=== PATIENT | male | born 1960 | race Caucasian/White ===

== ENCOUNTER 2019-06-22 14:51 | Outpatient (CLI) | payer MEDICARE, SELFPAY ==
--- NOTE | 2019-06-22 14:58 | XR_ITS ---
WS: [id number] RIGHT FOOT: 3 VIEW(S) TECHNIQUE: PA, oblique and lateral. HISTORY: PAIN, REDNESS, NONHEALING ULCER COMPARISON: None available. Markedly abnormal bones and soft tissues of the foot. Diffuse soft tissue edema surrounding the foot. First toe is intact. Lateral deviation of the second toe. There is complete loss of the bone involving a majority of the s econd toe. Osteopenia involving the distal phalanx of the second toe. There is a large gap between th e proximal phalanx and the distal remaining bone by 2.0 cm. Similar destruction of bone involving the third toe with only a small portion of the proximal toe present. There is a osseous gap in the middl e phalanx fourth toe. XR/XR foot RT min 3V* [id number] IMPRESSION: 1. Abnormal appearance of the second, third and fourth toes. There is complete resorption of bone with abnormal soft tissue changes are probably from acute o n chronic episodes of osteomyelitis. 2. 2. Diffuse soft tissue edema around the foot.
== END 2019-06-22 14:52 | disposition home or self-care (01) ==
LOC: RADWPI 14:55
PROVIDERS: Family Provider Family Medicine; PCP Family Medicine; Visit Provider Nurse Practitioner Family
DX: M79.671 Pain in right foot (principal); L98.499 Non-pressure chronic ulcer of skin of other sites with unspecified severity; R60.9 Edema, unspecified; E11.621 Type 2 diabetes mellitus with foot ulcer; L97.412 Non-pressure chronic ulcer of right heel and midfoot with fat layer exposed
CPT/HCPCS: 73630; 99214; G0463

== ENCOUNTER 2019-07-13 10:06 | Outpatient (RCR) | payer MEDICARE, SELFPAY | END 2019-07-13 23:59 | disposition home or self-care (01) | LOC: WOUND 10:06 | PROVIDERS: Family Provider Family Medicine; PCP Family Medicine; Visit Provider Nurse Practitioner Family | DX: E11.621 Type 2 diabetes mellitus with foot ulcer (principal); L97.412 Non-pressure chronic ulcer of right heel and midfoot with fat layer exposed; M79.671 Pain in right foot; L98.499 Non-pressure chronic ulcer of skin of other sites with unspecified severity; R60.9 Edema, unspecified | CPT/HCPCS: 11042; 73630; 99203; 99212; 99214; G0463 ==

== ENCOUNTER 2019-08-30 10:36 | Outpatient (CLI) | payer MEDICARE, SELFPAY ==
--- NOTE | 2019-08-30 10:45 | CT_ITS ---
WS: [id number] CT ABDOMEN PELVIS TECHNIQUE: Noncontrast CT of the abdomen and pelvis with coronal and sagittal reformatted images. CLINICAL INFORMATION: URINARY TRACT STONE COMPARISON: None. DLP: 1049.[address] scans at [facility] use at least one of these dose optimization techniques: automat ed exposure control; mA and/or kV adjustment per patient size (includes targeted exams where dose is matched to clinical indication); or iterative reconstruction. FINDINGS: Noncontrast liver is normal. Normal noncontrast spleen. Normal GE junction. Food products within the distended stomach and proximal duodenum. Adrenal glands are normal. Bilateral renal cortical atrophy. No hydronephrosis. No obstructing renal or ureteral calculi. Fatty atrophy of the pancreas. Exophyti c left renal lesion too small to characterize but not definitely cystic measuring 1.2 CM. This can be followed up with ultrasound. Nonobstructing right renal parenchymal calculus measuring 4 mm. Normal caliber abdominal aorta. Aortic calcification. Calcified prostate. Normal sigmoid colon. Epiga stric wid[place] hernia with hernia opening measuring 7.4 CM. Herniation of transverse colon and small bowel without evidence of obstruction. No abdominal lymphadenopathy. No pelvic lymphadenopathy. No inguinal lymphadenopathy. Lung bases are well aerated. CT/CT kidney stone [id number] IMPRESSION: 1. Bilateral renal cortical atrophy. No hydronephrosis. No obstructing renal o r ureteral calculi. 2. Indeterminate exophytic left renal lesion measuring 11 mm. Recommend furthe r evaluation with ultrasound. 3. Large wid[place] epigastric midline hernia with hernia mouth opening measuri ng 7.4 CM. Herniated nonobstructed transverse colon and small bowel. 4. Normal caliber abdominal aorta. 5. No other significant findings.
== END 2019-08-30 10:37 | disposition home or self-care (01) ==
LOC: RADWPI 10:39
PROVIDERS: Family Provider Family Medicine; PCP Family Medicine; Visit Provider Family Medicine
DX: N20.0 Calculus of kidney (principal); E11.21 Type 2 diabetes mellitus with diabetic nephropathy; K44.9 Diaphragmatic hernia without obstruction or gangrene; N28.9 Disorder of kidney and ureter, unspecified; N26.1 Atrophy of kidney (terminal)
CPT/HCPCS: 74176

== ENCOUNTER 2019-10-11 14:37 | Outpatient (CLI) | payer MEDICARE, SELFPAY ==
--- NOTE | 2019-10-11 14:54 | XR_ITS ---
WS: [id number] LATERAL LUMBAR SPINE: 3 view. Lateral radiographs are performed in upright neutral, flexion and extension to the patient's toleranc e. HISTORY: LOW BACK PAIN, COMPARISON: 11/01/2013 Straightening of the normal lumbar lordosis on neutral imaging. Mild to moderate disc space narrowing at L3-4, L4-5 and L5-S1 with endplate osteophytes. With flexion and extension there is no significan t change in alignment. No fractures. XR/XR lumbar spine f/e only [id number] IMPRESSION: Straightening of the normal lumbar lordosis with no instability.
--- NOTE | 2019-10-11 14:54 | CT_ITS ---
WS: [id number] CT LUMBAR SPINE, noncontrast. HISTORY: LOW BACK PAIN TECHNIQUE: Contiguous 2.5 mm axial imaging are performed. Sagittal and coronal reformats are submitte d and reviewed. All CT scans at [facility] use at least one of these dose optimization te chniques: automated exposure control; mA and/or kV adjustment per patient size (includes targeted exa ms where dose is matched to clinical indication); or iterative reconstruction. IV contrast: None DLP: 2080.48 mGycm COMPARISON: MRI 05/25/2016 Straightening of the normal lumbar lordosis. Moderate disc space narrowing from L3-4 to L5-S1. No fra ctures. Pars are all intact. No anterolisthesis. L1-2: Normal. L2-3: Mild annular disc bulging. No significant stenosis. L3-4: Mild annular disc bulging and osteophytic ridging. Flattening of the ventral thecal sac. Mild f acet and ligamentum flavum hypertrophy. Mild central and subarticular recess stenosis. L4-5: Mild annular disc bulging and osteophytic ridging. Small central disc protrusion. Additional sm all osteophytes anteriorly encroaching upon the ventral thecal sac. There is ligamentum flavum hypert rophy and facet arthritis. Mild widening of the facet joints. The above changes result in mild centra l and bilateral foraminal stenosis. Moderate RIGHT subarticular recess stenosis and mild on the LEFT. L5-S1: Diffuse asymmetric disc bulging and osteophytic ridging. Osteophytes encroach into the foramen and subarticular recesses. Osteophyte encroachment upon the RIGHT S1 nerve root. Scattered calcifications in the abdominal aorta. Retroaortic LEFT renal vein. CT/CT lumbar spine wo con* [id number] IMPRESSION: 1. Mild progression of facet joint arthritis and stenoses since 2017 MRI. 2. Moderate RIGHT subarticular recess stenosis and mild on the LEFT at L4-5. 3. Mild central and bilateral subarticular recess stenosis at L3-4. 4. Mild osteophyte encroachment into the RIGHT L5-S1 proximal foramen with enc roachment on the RIGHT S1 nerve root.
== END 2019-10-11 14:38 | disposition home or self-care (01) ==
LOC: RADWPI 14:42
PROVIDERS: Family Provider Family Medicine; PCP Family Medicine; Visit Provider Nurse Practitioner
DX: M54.5 Low back pain (principal); M13.88 Other specified arthritis, other site; M48.061 Spinal stenosis, lumbar region without neurogenic claudication; M25.78 Osteophyte, vertebrae
CPT/HCPCS: 72120; 72131

== ENCOUNTER 2019-11-30 14:52 | Outpatient (CLI) | payer MEDICARE, SELFPAY ==
--- NOTE | 2019-11-30 15:01 | US_ITS ---
WS: [id number] RENAL ULTRASOUND HISTORY: CHRONIC KIDNEY DZ STAGE 4/DM TYPE 2/HTN COMPARISON: None available. TECHNIQUE: 2-D and color Doppler imaging of the kidney submitted. Right kidney: 10.1 cm x 5.6 cm x 4.8 cm. Normal size kidney with no hydronephrosis. Mild increased echogenicity. Mild cortical thinning centra lly with no mass. Left kidney: 13.6 cm x 5.1 cm x 5.3 cm. Normal size kidney. There is very mild diffuse cortical thinning. Exophytic cyst from the mid kidney measures 1.7 x 0.5 x 1.9 cm. Similar as seen on 08/30/2019 CT. Aorta: Normal. Urinary Bladder: Minimally distended bladder. No intraluminal filling defect. US/US renal BI* [id number] IMPRESSION: 1. Very minimal bilateral chronic medical renal disease without atrophy. 2. Minimally distended urinary bladder.
== END 2019-11-30 14:53 | disposition home or self-care (01) ==
LOC: RAD 15:00
PROVIDERS: PCP Family Medicine; Visit Provider Internal Medicine Nephrology
DX: E11.21 Type 2 diabetes mellitus with diabetic nephropathy (principal); I10 Essential (primary) hypertension; E11.22 Type 2 diabetes mellitus with diabetic chronic kidney disease; N18.4 Chronic kidney disease, stage 4 (severe)
CPT/HCPCS: 76770

== ENCOUNTER → 2020-07-31 11:06 | Outpatient (BNVA) | payer MEDICARE, SELFPAY | PROVIDERS: PCP Family Medicine; Visit Provider Internal Medicine Cardiovascular Disease | DX: I50.33 Acute on chronic diastolic (congestive) heart failure (principal); R06.02 Shortness of breath; N18.9 Chronic kidney disease, unspecified; I50.9 Heart failure, unspecified; I10 Essential (primary) hypertension | CPT/HCPCS: 80048; 83880; 84443 ==

== ENCOUNTER 2020-12-03 15:43 | Outpatient (CLI) | payer MEDICARE, SELFPAY ==
--- NOTE | 2020-12-03 15:45 | USCV_ITS ---
Richard Huffman Age: 60 Gender: M : 1960 Exam Date: 12/03/2020 16:14 Ordering Phys: Bertin Tierney MD ([email or web address]) Technologist: CHARLES [place] [facility] [place]: DYSPNEA BP: 126 / 62 HR: 78 Rhythm: Sinus Technical Quality: Technically difficult study MEASUREMENTS (Male / Female) Normal Values 2D ECHO LV Diastolic Diameter PLAX 3.0 cm 4.2 - 5.9 / 3.9 - 5.3 cm LV Systolic Diameter PLAX 1.8 cm IVS Diastolic Thickness 1.0 cm 0.6 - 1.0 / 0.6 - 0.9 cm IVS Systolic Thickness 1.6 cm LVPW Diastolic Thickness 1.6 cm 0.6 - 1.0 / 0.6 - 0.9 cm LVPW Systolic Thickness 1.6 cm LVOT Diameter 2.0 cm LV Ejection Fraction 2D Teich 71.4 % LV Ejection Fraction MOD 2C 51.6 % LV Ejection Fraction 2C AL 52.6 % LA Diameter 3.8 cm LA Width 3.2 cm LA Height 5.4 cm RA Width 3.9 cm RA Height 4.9 cm Aorta at Sinotubular Diameter 2.5 cm DOPPLER AV Peak Velocity 271.0 cm/s LVOT Peak Velocity 123.0 cm/s AV Area Cont Eq vti 1.5 cm squared AV Area Cont Eq pk 1.4 cm squared MV Peak Velocity 645.0 cm/s MV Area PHT 4.0 cm squared Mitral E to A Ratio 1.7 MV E' Velocity 68.0 cm/s Mitral E to MV E' Ratio 15.2 Mitral E to LV E' Lateral Ratio 12.7 Mitral E to LV E' Septal Ratio 18.8 TR Peak Velocity 162.0 cm/s TR Peak Gradient 10.5 mmHg PV Peak Velocity 73.0 cm/s RV Acceleration Time 0.1 s RV Ejection Time 0.2 s RV AcT/ET 0.2 FINDINGS Left Ventricle Possibly normal LV size ejection fraction 55%. No gross wall motion normalities noted.Grade III/IV diastolic dysfunction (restrictive filling pattern), severely elevated filling pressures. Right Ventricle The right ventricle is normal in size and function. Right Atrium The right atrium is normal in size. Left Atrium Mildly increased left atrial size. Mitral Valve Thickened mitral valve. Possible mitral annular ring appears to be intact.mild-moderate mitral valve regurgitation. Aortic Valve The bioprosthetic aortic valve appears to be positioned well. The aortic leaflets could not visualized well.trace aortic valve regurgitation. Peak velocity across the valve was 2.7 m/s with an aortic valve area of 1.5 cm squared Tricuspid Valve No gross abnormalities noted Pulmonic Valve Pulmonic valve not well visualized. Pericardium Normal pericardium without effusion. Aorta Normal ascending aorta dimension. CONCLUSIONS Possibly normal LV size ejection fraction 55%. No gross wall motion normalities noted.Grade III/IV diastolic dysfunction (restrictive filling pattern), severely elevated filling pressures. Thickened mitral valve. Possible mitral annular ring appears to be intact.mild-moderate mitral valve regurgitation. The bioprosthetic aortic valve appears to be positioned well. The aortic leaflets could not visualized well. Trace aortic valve regurgitation. Peak velocity across the valve was 2.7 m/s with an aortic valve area of 1.5 cm squared. Mild to moderate mitral regurgitation Thickened mitral valve with? mitral annular ring. Mildly increased left atrial size. There is no pericardial effusion. There are no intracardiac masses. Compared to the previous study from 01/19/2019, there may not be a significant change Dr Bertin Tierney MD FACC (Electronically Signed) Final Date: 04 December 2020 14:35 S
== END 2020-12-03 15:44 | disposition home or self-care (01) ==
PROVIDERS: PCP Family Medicine; Visit Provider Internal Medicine Cardiovascular Disease
DX: R06.00 Dyspnea, unspecified (principal); R06.02 Shortness of breath; I08.0 Rheumatic disorders of both mitral and aortic valves; Z95.2 Presence of prosthetic heart valve
CPT/HCPCS: 93306

== ENCOUNTER 2021-03-27 09:59 | Outpatient (CLI) | payer MEDICARE, SELFPAY | END 2021-03-27 10:00 | disposition home or self-care (01) | LOC: WOUND 10:00 | PROVIDERS: PCP Family Medicine; Visit Provider Emergency Medicine | DX: I96 Gangrene, not elsewhere classified (principal); E11.621 Type 2 diabetes mellitus with foot ulcer; L97.512 Non-pressure chronic ulcer of other part of right foot with fat layer exposed; F17.210 Nicotine dependence, cigarettes, uncomplicated; I10 Essential (primary) hypertension | CPT/HCPCS: 11042; 87070; 87077; 87176; 87186; 87205; 99213 ==

== ENCOUNTER 2021-04-03 08:53 | Outpatient (CLI) | payer MEDICARE, SELFPAY | END 2021-04-03 08:54 | disposition home or self-care (01) | LOC: WOUND 08:54 | PROVIDERS: PCP Family Medicine; Visit Provider Emergency Medicine | DX: I96 Gangrene, not elsewhere classified (principal); E11.621 Type 2 diabetes mellitus with foot ulcer; L97.512 Non-pressure chronic ulcer of other part of right foot with fat layer exposed; F17.210 Nicotine dependence, cigarettes, uncomplicated; I10 Essential (primary) hypertension | CPT/HCPCS: 11042; 99212; A6219 ==

== ENCOUNTER 2021-04-10 12:57 | Outpatient (CLI) | payer MEDICARE, SELFPAY | END 2021-04-10 12:58 | disposition home or self-care (01) | LOC: WOUND 12:58 | PROVIDERS: PCP Family Medicine; Visit Provider Emergency Medicine | DX: E11.621 Type 2 diabetes mellitus with foot ulcer (principal); L97.511 Non-pressure chronic ulcer of other part of right foot limited to breakdown of skin; F17.210 Nicotine dependence, cigarettes, uncomplicated; I10 Essential (primary) hypertension | CPT/HCPCS: 11042 ==

== ENCOUNTER 2021-04-10 16:05 | Outpatient (CLI) | payer MEDICARE, SELFPAY | END 2021-04-10 16:06 | disposition home or self-care (01) | LOC: SPT 16:06 | PROVIDERS: PCP Family Medicine; Visit Provider Emergency Medicine | DX: R26.89 Other abnormalities of gait and mobility (principal) | CPT/HCPCS: 97760 ==

== ENCOUNTER 2021-04-24 13:26 | Outpatient (CLI) | payer MEDICARE, SELFPAY | END 2021-04-24 13:27 | disposition home or self-care (01) | LOC: WOUND 13:27 | PROVIDERS: PCP Family Medicine; Visit Provider Nurse Practitioner Family | DX: Z09 Encounter for follow-up examination after completed treatment for conditions other than malignant neoplasm (principal); F17.210 Nicotine dependence, cigarettes, uncomplicated; E11.9 Type 2 diabetes mellitus without complications | CPT/HCPCS: 99213 ==

== ENCOUNTER → 2021-07-15 13:49 | Outpatient (BNVA) | payer MEDICARE, SELFPAY | PROVIDERS: PCP Family Medicine; Visit Provider Internal Medicine Cardiovascular Disease | DX: I12.9 Hypertensive chronic kidney disease with stage 1 through stage 4 chronic kidney disease, or unspecified chronic kidney disease (principal); E11.22 Type 2 diabetes mellitus with diabetic chronic kidney disease; N18.4 Chronic kidney disease, stage 4 (severe); Z99.2 Dependence on renal dialysis; Z79.4 Long term (current) use of insulin; Z79.84 Long term (current) use of oral hypoglycemic drugs; E11.618 Type 2 diabetes mellitus with other diabetic arthropathy; E78.2 Mixed hyperlipidemia; Z95.4 Presence of other heart-valve replacement; I33.0 Acute and subacute infective endocarditis; B95.7 Other staphylococcus as the cause of diseases classified elsewhere; M79.89 Other specified soft tissue disorders; F17.210 Nicotine dependence, cigarettes, uncomplicated | CPT/HCPCS: 99214 ==

== ENCOUNTER → 2021-09-23 10:27 | Outpatient (BNVA) | payer MEDICARE, SELFPAY | PROVIDERS: PCP Family Medicine; Referring Provider Internal Medicine Nephrology; Visit Provider Podiatrist Foot & Ankle Surgery | DX: I73.9 Peripheral vascular disease, unspecified (principal); E11.42 Type 2 diabetes mellitus with diabetic polyneuropathy; Z79.4 Long term (current) use of insulin; Z89.421 Acquired absence of other right toe(s); E11.621 Type 2 diabetes mellitus with foot ulcer; L97.512 Non-pressure chronic ulcer of other part of right foot with fat layer exposed; L84 Corns and callosities; L60.2 Onychogryphosis | CPT/HCPCS: 11042; 11055; 11721 ==

== ENCOUNTER → 2021-10-28 11:46 | Outpatient (BNVA) | payer MEDICARE, SELFPAY | PROVIDERS: PCP Family Medicine; Visit Provider Podiatrist Foot & Ankle Surgery | DX: E11.621 Type 2 diabetes mellitus with foot ulcer (principal); L97.512 Non-pressure chronic ulcer of other part of right foot with fat layer exposed; E11.8 Type 2 diabetes mellitus with unspecified complications; Z89.421 Acquired absence of other right toe(s); I73.9 Peripheral vascular disease, unspecified; E11.42 Type 2 diabetes mellitus with diabetic polyneuropathy; Z79.4 Long term (current) use of insulin | CPT/HCPCS: 11042 ==

== ENCOUNTER → 2021-11-11 14:24 | Outpatient (BNVA) | payer MEDICARE, SELFPAY | PROVIDERS: PCP Family Medicine; Visit Provider Podiatrist Foot & Ankle Surgery | DX: Z89.421 Acquired absence of other right toe(s) (principal); I73.9 Peripheral vascular disease, unspecified; E11.42 Type 2 diabetes mellitus with diabetic polyneuropathy; Z79.4 Long term (current) use of insulin | CPT/HCPCS: 99213; 99214 ==

== ENCOUNTER → 2021-12-09 11:17 | Outpatient (BNVA) | payer MEDICARE, SELFPAY | PROVIDERS: PCP Family Medicine; Visit Provider Podiatrist Foot & Ankle Surgery | DX: E11.8 Type 2 diabetes mellitus with unspecified complications (principal); I73.9 Peripheral vascular disease, unspecified; E11.42 Type 2 diabetes mellitus with diabetic polyneuropathy; Z89.421 Acquired absence of other right toe(s); Z79.4 Long term (current) use of insulin | CPT/HCPCS: 99214 ==

== ENCOUNTER → 2022-01-06 13:02 | Outpatient (BNVA) | payer MEDICARE, SELFPAY | PROVIDERS: PCP Family Medicine; Visit Provider Podiatrist Foot & Ankle Surgery | DX: E11.621 Type 2 diabetes mellitus with foot ulcer (principal); L97.412 Non-pressure chronic ulcer of right heel and midfoot with fat layer exposed; E11.8 Type 2 diabetes mellitus with unspecified complications; Z89.421 Acquired absence of other right toe(s); I73.9 Peripheral vascular disease, unspecified; E11.42 Type 2 diabetes mellitus with diabetic polyneuropathy; Z79.4 Long term (current) use of insulin | CPT/HCPCS: 11042 ==

== ENCOUNTER 2022-01-06 13:39 | Outpatient (CLI) | payer MEDICARE, SELFPAY ==
--- NOTE | 2022-01-06 14:42 | XR_ITS ---
WS: [id number] Exam: XR chest 2V* [id number] Date/Time of Exam: 01/06/2022 2:49 PM Reason For Exam: SHORTNESS OF BREATH Comparison 02/07/2017. The lungs are fully expanded. No consolidating infiltrates are noted. The heart is not enlarged. Mild pulmonary vascular congestion. A double lumen right subclavian dialysis catheter ends at the cavoatr ial junction. Signs of previous median sternotomy and cardiac valve replacement. Bony structures are intact. The mediastinum is normal in contour. XR/XR chest 2V* [id number] IMPRESSION: 1. Mild pulmonary vascular congestion. 2. No acute infiltrate noted. 3. Dialysis catheter in place ending in the region of the cavoatrial junction.
== END 2022-01-06 13:40 | disposition home or self-care (01) ==
LOC: RAD 13:45
PROVIDERS: PCP Family Medicine; Visit Provider Nurse Practitioner Family
DX: R06.02 Shortness of breath (principal); R09.89 Other specified symptoms and signs involving the circulatory and respiratory systems
CPT/HCPCS: 71046

== ENCOUNTER 2022-01-09 19:20 | Emergency (ER) | payer MEDICARE, SELFPAY ==
[2022-01-09] VITALS (15 sets, daily range): BP systolic 69–88; BP diastolic 39–54; PULSE 80–105; RESP 17–30; TEMP 35.3; O2SAT 79–100
--- NOTE | 2022-01-09 19:27 | ECG_ITS ---
[facility] Test Date: 2022-01-09 Pat Name: Richard Huffman Department: Room: Gender: Male Design Manager: : 1960 Requested By: Rosalio Dougherty Order Number: [id number] Kisha MD: Lynsey Zuniga M.D. Measurements Intervals [place] Rate: 94 P: [place]: QRS: -32 QRSD: 126 T: 117 QT: 427 QTc: 536 Interpretive Statements ATRIAL FIBRILLATION LEFT AXIS DEVIATION [QRS AXIS < -30] VOLTAGE CRITERIA FOR LVH POSSIBLE SEPTAL MYOCARDIAL INFARCTION , PROBABLY OLD [30 ms Q WAVE IN V1/V2] ST DEVIATION AND MODERATE T-WAVE ABNORMALITY, CONSIDER LATERAL ISCHEMIA Compared to ECG 02/07/2017 08:59:47 T-wave abnormality now present Possible ischemia now present Sinus rhythm no longer present Myocardial infarct finding still present Electronically Signed On 01-09-2022 21:38:54 CDT by Lynsey Zuniga M.D. [id number]
--- NOTE | 2022-01-09 19:27 | W.ED.CHESTPA ---
HPI - Chest Pain General: Chief Complaint: Arrhythmia/Palpitations Stated Complaint: CP Time Seen by Provider: 01/09/22 19:27 History of Present Illness: Mr. Huffman is a 61-year-old gentleman with complex past medical history including end-stage renal disease on hemodialysis, history of aortic valve replacement with tissue graft, history of endocarditis on chronic doxycycline, history of atrial fibrillation, diabetes, hypertension, hyperlipidemia presenting to the emergency department due to generalized illness. Patient reports being at his baseline health and had normal hemodialysis though perhaps was more hypotensive than typical after it earlier today. Shortly after eating dinner he developed sudden onset of lightheadedness, chest pain, shortness of breath, and generalized malaise. Patient diaphoretic and noted to be in A. fib with RVR by EMS upon their arrival. Blood pressure on the soft side. Administered Cardizem. Overall intensity symptoms is moderate to severe. Course has persisted. Denies frequent similar episodes in the past. No other specific changes in health, exacerbating, or alleviating factors identified. 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 Hyperlipidemia Hypertension Intermittent palpitations XI (obstructive sleep apnea) PVD (peripheral vascular disease) Surgical History H/O aortic valve replacement H/O aortic valve replacement with tissue graft H/O foot surgery Family History Grandmother Diabetes Grandfather Diabetes Denies family history of CAD (coronary artery disease) Clotting disorder Dementia Chronic kidney disease (CKD) Suicide Anesthesia complication Bleeding disorder Lung disease Cancer Stroke Social History Smoking and tobacco status: current every day smoker cigarettes Packs smoked per day: 1.25 Years cigarettes smoked: 46 Alcohol intake: never Lives independently: Yes (with girlfriend) Household members: significant other Marital status: Single service: No 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al status: disabled 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 Pets and animals: Yes Physical Exam Const: COMMON NORMALS: alert GENERAL APPEARANCE: cooperative, well developed, in distress and ill appearing HENMT: COMMON NORMALS: normocephalic and atraumatic HEAD & SCALP: normocephalic and atraumatic Eye: COMMON NORMALS: conjunctivae normal CONJUNCTIVA: Yes conjunctivae normal SCLERA: sclerae normal Neck/C-Spine: COMMON NORMALS: supple GENERAL: Yes trachea midline Resp: COMMON NORMALS: clear to auscultation bilaterally EFFORT & INSPECTION: Yes able to speak in complete sentences and Yes tachypneic AUSCULTATION: clear to auscultation bilaterally Cardio: RATE: tachycardic RHYTHM: abnormal rhythm irregularly irregular GI: COMMON NORMALS: Soft to palpation PALPATION: Yes Soft to palpation and No Tenderness to palpation present (GI) PERCUSSION: normal to percussion Extremity: GENERAL: Yes normal exam except as noted and No edema Neuro: COMMON NORMALS: moves all extremities SENSORIUM/ORIENTATION: Yes alert and No Orientation impaired Psych: COMMON NORMALS: mental status grossly normal and Normal thought process present THOUGHT PROCESS: Normal thought process present Course Vital Signs: Vital signs: Vital Signs Temperature 95.6 F L 01/09/22 19:22 Pulse Rate 77 01/10/22 00:25 Respiratory Rate 20 H 01/10/22 00:25 Blood Pressure 131/64 01/10/22 00:25 Pulse Oximetry 98 01/10/22 00:25 Oxygen Delivery Me thod 01/09/22 19:22 Fraction of Inspir ed Oxygen 40 01/09/22 23:44 MDM - Chest Pain Medical Decision Making 61-year-old gentleman with complex past medical history presenting with chest pain, diaphoresis, shortness of breath and hypotension associated with A. fib with RVR. Patient had improvement in rates initially in the 150s and 160s down to 110s with EMS administered diltiazem. On initial exam patient still markedly ill-appearing and in mild to moderate respiratory distress though lung sounds are clear. Shortly after arrival patient had spontaneous conversion to sinus rhythm however blood pressure remained hypotensive. IV fluid bolus ordered. Laboratory studies obtained and reviewed. Mild leukocytosis, hemoglobin shows 7.9 with macrocytosis. Metabolic panel without emergent dialysis need, glucose is elevated. CRP elevated and procalcitonin elevated. Initial troponin 199 which is significantly elevated though I am unsure of baseline. 2-hour repeat significantly decreased. COVID-negative. Chest x-ray with mild cardiomegaly and pulmonary vascular congestion. Given severity of symptoms including persistent hypotension despite improved rate control and rhythm control CT imaging felt to be warranted. CT head obtained given lightheadedness and negative for acute intracranial pathology. CT chest abdomen pelvis aorta protocol without acute pathology to explain symptoms. Patient empirically treated with antibiotics, after 1 L IV fluids infused patient switched to Levophed for concern for sepsis possibly related to tunneled dialysis catheter versus other cause. Patient did subsequently report shortness of breath and BiPAP ordered. Initial ABG 7.47/45.8/72.3. Patient is significantly ill requiring peripheral vasopressors without clear source though empirically treated for sepsis given elevated procalcitonin and tunneled catheter. I anticipate that during hospitalization the patient will require hemodialysis which is not available at our facility. Plan to transfer patient. Patient graciously accepted by Dr. Gaviria with the critical care team at [facility] in [place]. Medical Records I reviewed the patient's medical records. Lab Data I reviewed the patient's lab results. : 01/09/22 19:36 01/09/22 19:36 Radiology Impressions Chest X-Ray 01/09/22 19:28 IMPRESSION: 1. Cardiomegaly and mild pulmonary vascular congestion. 2. Left lower lobe atelectasis versus minimal infiltrate. Chest/Abdomen/Pelvis CTA 01/09/22 19:33 IMPRESSION: 1. Negative for contrast extravasation seen to indicate a source of active gastrointestinal bleeding. 2. Right kidney benign cortical calcification. 3. Perinephric edema bilaterally likely reflecting chronic renal insufficiency. 4. Left kidney 13 mm exophytic cyst, negative for follow-up advised. 5. Supraumbilical ventral abdominal hernia containing bowel without dilation. 6. Right middle lobe pleural based 13 x 22 mm nodular density. Highly suspicious nodule(s). Consider non-emergent PET/CT, or tissue sampling.(Reference: Jorgito) References: Jorgito Coleman, et al. Guidelines for Management of Incidental Pulmonary Nodules Detected on CT Images: From the Fleischner Society 2017. Radiology. 2017;284(1):228-243. Head CT 01/09/22 19:33 IMPRESSION: No acute intracranial abnormality. Laboratory Results WBC 10.6 10^3/uL (4.0-10.0) H 01/09/22 19:36 RBC 2.24 10^6/uL (4.1-5.3) L 01/09/22 19:36 Hgb 7.9 g/dL (11.7-16.6) L 01/09/22 19:36 Hct 24.6 % (42.0-52.0) L 01/09/22 19:36 MCV 109.8 fl (80-94) H 01/09/22 19:36 MCH 35.3 pg (28.0-34.0) H 01/09/22 19:36 MCHC 32.1 g/dL (30.0-36.0) 01/09/22 19:36 RDW 17.2 % (12.1-15.1) H 01/09/22 19:36 Plt Count 210 10^3/cmm (130-400) 01/09/22 19:36 MPV 10.2 fL (7.4-10.4) 01/09/22 19:36 Neut % (Auto) 71.9 % 01/09/22 19:36 Lymph % (Auto) 18.2 % 01/09/22 19:36 Levy % (Auto) 7.8 % 01/09/22 19:36 Eos % (Auto) 0.9 % 01/09/22 19:36 Baso % (Auto) 0.6 % 01/09/22 19:36 Neut # (Auto) 7.60 10^3/uL (1.8-7.7) 01/09/22 19:36 Lymph # (Auto) 1.9 10^3/uL (0.8-4.8) 01/09/22 19:36 Levy # (Auto) 0.8 10^3/uL (0.2-0.9) 01/09/22 19:36 Eos # (Auto) 0.1 10^3/uL (0.0-0.8) 01/09/22 19:36 Baso # (Auto) 0.1 10^3/uL (0.0-0.1) 01/09/22 19:36 Nucleated RBC % (auto) 0.3 % 01/09/22 19:36 Nucleated RBCs # 0.0 /100WBC 01/09/22 19:36 PT 14.00 SECONDS (12.1-14.9) 01/09/22 19:36 INR 1.05 (0.8-1.2) 01/09/22 19:36 APTT 26.8 SECONDS (23.9-36.7) 01/09/22 19:36 Specimen Type Arterial 01/09/22 19:37 Sample Site Radial, right 01/09/22 19:37 ABG pH 7.47 (7.35-7.45) H 01/09/22 19:37 ABG pCO2 45.8 mmHg (35-45) H 01/09/22 19:37 ABG pO2 72.3 mmHg (80.0-100.0) L 01/09/22 19:37 ABG HCO3 33.3 mmol/L (22-26) H 01/09/22 19:37 ABG Base Excess 8.7 mmol/L (-2.0-2.0) H 01/09/22 19:37 Kash Test Pos 01/09/22 19:37 Hematocrit 25.6 % (42-52) L 01/09/22 19:37 Hgb O2 Saturation 91.8 % (95-100) L 01/09/22 19:37 Carboxyhemoglobin 2.8 %THgb (0.4-20.1) 01/09/22 19:37 Methemoglobin 0.7 % (0.4-1.5) 01/09/22 19:37 Total Hemoglobin 8.4 g/dL (14-18) L 01/09/22 19:37 O2 Delivery Device Nc 01/09/22 19:37 Electrician Substation Supervisor ID Gurpreet 01/09/22 19:37 Sodium 137 mmol/L (136-145) 01/09/22 19:36 Potassium 3.3 mmol/L (3.5-5.1) L 01/09/22 19:36 Chloride 88 mmol/L (98-107) L 01/09/22 19:36 Carbon Dioxide 30 mmol/L (22-29) H 01/09/22 19:36 Anion Gap 22.3 (5-19) H 01/09/22 19:36 BUN 25 mg/dL (6-20) H 01/09/22 19:36 Creatinine 3.3 mg/dL (0.7-1.2) H 01/09/22 19:36 GFR Calculation 19.3 mL/min (90-130) L 01/09/22 19:36 Glucose 358 mg/dL (65-115) H 01/09/22 19:36 Calculated Osmolality 303 mOsm/kg (285-295) H 01/09/22 19:36 Calcium 8.6 mg/dL (8.5-10.5) 01/09/22 19:36 Magnesium 1.9 mg/dL (1.7-2.3) 01/09/22 19:36 Total Bilirubin 0.5 mg/dL (0.15-1.2) 01/09/22 19:36 AST 29 U/L (0-40) 01/09/22 19:36 ALT 29 U/L (0-41) 01/09/22 19:36 Alkaline Phosphatase 122 U/L (40-130) 01/09/22 19:36 Troponin T Baseline 199 ng/L (0-15) H* 01/09/22 19:36 Troponin T 120 Minute 101.0 ng/L (0-15) H 01/09/22 21:27 Delta Troponin T -98.0 ABS# (0-10) L 01/09/22 21:27 C-Reactive Protein 24.8 mg/L (0.0-4.9) H 01/09/22 19:36 Total Protein 6.6 g/dL (6.6-8.7) 01/09/22 19:36 Albumin 3.4 g/dL (3.5-5.2) L 01/09/22 19:36 Globulin 3.2 g/dL (1.3-4.6) 01/09/22 19:36 Lipase 7 U/L (13-60) L 01/09/22 19:36 Procalcitonin 1.38 ng/mL (0-0.5) H 01/09/22 19:36 TSH 2.37 uIU/mL (0.27-4.20) 01/09/22 19:36 Coronavirus 229E (PCR) Not detected (NOT DETECT) 01/09/22 20:00 SARS-CoV-2 (PCR) Not detected (NOT DETECT) 01/09/22 20:00 Critical Care Time Critical Care Time: Critical Care Time: Yes Total Critical Care Time: 50 Attestation: Due to a high probability of clinically significant, possibly life threatening deterioration, the patient required my highest level of attention and preparedness to intervene emergently and I personally spent this critical care time directly and personally managing the patient. This critical care time included obtaining a history; examining the patient; pulse oximetry; ordering and review of laboratory and imaging studies; arranging urgent treatment with development of a management plan; evaluation of patient's response to treatment; frequent reassessment; and, discussions with other providers as applicable. It was exclusive of separately billable procedures. Primary system involved is cardiovascular and pulmonary Discharge Plan Discharge Patient Disposition: Xfer Short-Term Hosp Clinical Impression: Severe sepsis, SOB (shortness of breath), Atrial fibrillation with rapid ventricular response, Diabetes mellitus with ESRD (end-stage renal disease), Acute on chronic respiratory failure with hypoxia and hypercapnia Condition: Critical Referrals: Sulma Zavala MD [Primary Care Provider] - Coding Level of Care Code ED Manager [employer] for Chg Fwd Exam Comprehensive
--- NOTE | 2022-01-09 19:28 | XRR_ITS ---
PROCEDURE INFORMATION: Exam: XR Chest Exam date and time: 01/09/2022 7:35 PM Age: 61 years old Clinical indication: Pain; Shortness of breath; Chest pressure; Prior surgery; Surgery date: 6+ months; Surgery type: Open heart, port; Additional info: Cp TECHNIQUE: Imaging protocol: Radiologic exam of the chest. Views: 1 view. COMPARISON: CR XR chest 2V* [id number] 01/06/2022 2:47 PM FINDINGS: Tubes, catheters and devices: Right-sided central venous catheter with tip just distal to the atrial junction. Lungs: Left lower lobe atelectasis versus minimal infiltrate. Pleural spaces: Unremarkable. No pleural effusion. No pneumothorax. Heart/Mediastinum: Cardiomegaly and mild pulmonary vascular congestion. Bones/joints: Sternotomy wires. XR/XR chest 1V portable [id number] IMPRESSION: 1. Cardiomegaly and mild pulmonary vascular congestion. 2. Left lower lobe atelectasis versus minimal infiltrate.
--- NOTE | 2022-01-09 19:33 | CTR_ITS ---
PROCEDURE INFORMATION: Exam: CT Head Without Contrast Exam date and time: 01/09/2022 8:12 PM Age: 61 years old Clinical indication: Alteration of consciousness and altered mental status/memory loss; Somnolence (drowsiness); Additional info: Lightheaded TECHNIQUE: Imaging protocol: Computed tomography of the head without contrast. Radiation optimization: All CT scans at this facility use at least one of these dose optimization techniques: automated exposure control; mA and/or kV adjustment per patient size (includes targeted exams where dose is matched to clinical indication); or iterative reconstruction. COMPARISON: CT head wo con* [id number] 09/30/2016 7:45 PM RADIATION DOSE METRICS: Total DLP (mGy-cm): 1143.79 FINDINGS: Brain: Age appropriate atrophy and small vessel ischemic change. No evidence of intracranial hemorrhage, mass effect, midline shift or extra-axial fluid collections. Midline structures are normal. Combs-white matter differentiation is normal. Cerebral ventricles: No ventriculomegaly. Paranasal sinuses: Visualized sinuses are unremarkable. No fluid levels. Mastoid air cells: Visualized mastoid air cells are well aerated. Bones/joints: Unremarkable. No acute fracture. Soft tissues: Unremarkable. Vasculature: Carotid atherosclerotic calcification. CT/CT head wo con* [id number] IMPRESSION: No acute intracranial abnormality.
--- NOTE | 2022-01-09 19:33 | CTR_ITS ---
PROCEDURE INFORMATION: Exam: CTA Abdomen and Pelvis Without And With Contrast, GI Bleeding Exam date and time: 01/09/2022 8:15 PM Age: 61 years old Clinical indication: Hypotension; Prior surgery; Surgery type: Aortic valve replacement & tissue graft; Additional info: Hypotension, near syncope, severe pain TECHNIQUE: Imaging protocol: Computed tomographic angiography of the abdomen and pelvis without and with contrast. 3D rendering (Not supervised by radiologist): MIP and/or 3D reconstructed images were created by the technologist. Radiation optimization: All CT scans at this facility use at least one of these dose optimization techniques: automated exposure control; mA and/or kV adjustment per patient size (includes targeted exams where dose is matched to clinical indication); or iterative reconstruction. Contrast material: OMNIPAQUE 350; Contrast volume: 100 ml; Contrast route: INTRAVENOUS (IV); COMPARISON: CR XR hip RT 2-3V wo/w pel* [id number] 02/07/2017 12:54 AM RADIATION DOSE METRICS: Total DLP (mGy-cm): 2146.64 FINDINGS: Pleural space: Right middle lobe pleural based 13 x 22 mm nodular density. Aorta: No aortic aneurysm. No aortic dissection. Celiac trunk and mesenteric arteries: No occlusion or significant stenosis. Renal arteries: No occlusion or significant stenosis. Right iliac arteries: No occlusion or significant stenosis. Left iliac arteries: No occlusion or significant stenosis. Liver: No mass. Gallbladder and bile ducts: Unremarkable. No calcified stones. No ductal dilation. Pancreas: Unremarkable. No mass. No ductal dilation. Spleen: Unremarkable. No splenomegaly. Adrenal glands: Normal. No mass. Kidneys and ureters: Right kidney benign cortical calcification. Perinephric edema bilaterally likely reflecting chronic renal insufficiency. Left kidney 13 mm exophytic cyst, negative for follow-up advised. Stomach and bowel: Unremarkable. No active gastrointestinal bleeding. No obstruction. No mucosal thickening. Appendix: No evidence of appendicitis. Intraperitoneal space: Unremarkable. No free air. No significant fluid collection. Lymph nodes: Unremarkable. No enlarged lymph nodes. Urinary bladder: Unremarkable. No mass. Reproductive: Unremarkable as visualized. Bones/joints: No acute fracture. No dislocation. Soft tissues: Supraumbilical ventral abdominal hernia containing bowel without dilation. CT/CT angio chest abdomen pelvis IMPRESSION: 1. Negative for contrast extravasation seen to indicate a source of active gastrointestinal bleeding. 2. Right kidney benign cortical calcification. 3. Perinephric edema bilaterally likely reflecting chronic renal insufficiency. 4. Left kidney 13 mm exophytic cyst, negative for follow-up advised. 5. Supraumbilical ventral abdominal hernia containing bowel without dilation. 6. Right middle lobe pleural based 13 x 22 mm nodular density. Highly suspicious nodule(s). Consider non-emergent PET/CT, or tissue sampling.(Reference: Jorgito) References: Jorgito Coleman, et al. Guidelines for Management of Incidental Pulmonary Nodules Detected on CT Images: From the Fleischner Society 2017. Radiology. 2017;284(1):228-243.
[2022-01-09] MEDS: fentaNYL 50 mcg/mL INJ 2mL IVP ×3 (19:38→23:48)
[2022-01-09] MEDS: ondansetron 2 mg/ML SDV 2 mL 4 MG IVP ×2 (19:38→20:42)
--- NOTE | 2022-01-09 19:45 | ECG_ITS ---
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 Measurements Intervals [place] Rate: 80 P: 80 OR: 174 QRS: -36 QRSD: 126 T: 115 QT: 462 QTc: 534 Interpretive Statements SINUS RHYTHM LEFT AXIS DEVIATION [QRS AXIS < -30] LEFT VENTRICULAR HYPERTROPHY AND ST-T CHANGE [VOLTAGE CRITERIA PLUS ST/T ABNORMALITY] Compared to ECG 02/07/2017 08:59:47 ST (T wave) deviation now present Myocardial infarct finding no longer present Electronically Signed On 01-09-2022 19:53:23 CDT by Lynsey Zuniga M.D. [id number]
[2022-01-09 19:51] LABS: ABG PCO2 45.8 mmHg (35-45); ABG PH Result 7.47 (7.35-7.45); Arterial Blood Gas Hematocrit 25.6 % (42-52); Base Excess ABG 8.7 mmol/L (-2.0-2.0); Blood Gas Allen Test Pos; Blood Gas Operator Identificat JB; Blood Gas Sample Site Radial, right; Blood Gas Sample Type Arterial; Carboxyhemoglobin 2.8 %THgb (0.4-20.1); HCO3 ABG 33.3 mmol/L (22-26); HGB O2 Sat 91.8 % (95-100); Methemoglobin 0.7 % (0.4-1.5); Oxygen Device NC; PO2 ABG 72.3 mmHg (80.0-100.0); Total Hemoglobin 8.4 g/dL (14-18)
[2022-01-09 20:02] LABS: Basophils # 0.1 10^3/uL (0.0-0.1); Basophils % 0.6 %; Eosinophils # 0.1 10^3/uL (0.0-0.8); Eosinophils % 0.9 %; Hematocrit 24.6 % (42.0-52.0); Hemoglobin 7.9 g/dL (11.7-16.6); Lymphocytes # 1.9 10^3/uL (0.8-4.8); Lymphocytes % 18.2 %; Mean Corpuscular HGB Conc 32.1 g/dL (30.0-36.0); Mean Corpuscular Hemoglobin 35.3 pg (28.0-34.0); Mean Corpuscular Volume 109.8 fl (80-94); Mean Platelet Volume 10.2 fL (7.4-10.4); Monocytes # 0.8 10^3/uL (0.2-0.9); Monocytes % 7.8 %; Neutrophils % 71.9 %; Nucleated Red Blood Cells % 0.3 %; Platelet Count 210 10^3/cmm (130-400); Red Blood Count 2.24 10^6/uL (4.1-5.3); Red Cell Distribution Width 17.2 % (12.1-15.1); White Blood Count 10.6 10^3/uL (4.0-10.0)
[2022-01-09] MEDS: iohexol 350 mg/mL 100 mL Btl IV (20:02)
--- NOTE | 2022-01-09 20:28 | PC.NURSE ---
Pt in CT
[2022-01-09 20:33] LABS: Procalcitonin 1.38 ng/mL (0-0.5); Thyroid Stimulating Hormone 2.37 uIU/mL (0.27-4.20)
[2022-01-09 20:38] LABS: Troponin(5th) Baseline 199 ng/L (0-15)
[2022-01-09] MEDS: hydrocortisone 100 mg/2 mL SDV IVP (20:42)
[2022-01-09 20:43] LABS: INR 1.05 (0.8-1.2)
[2022-01-09 20:44] LABS: Partial Thromboplastin Time 26.8 SECONDS (23.9-36.7)
[2022-01-09 20:45] LABS: Alanine Aminotransferase 29 U/L (0-41); Albumin Level 3.4 g/dL (3.5-5.2); Alkaline Phosphatase 122 U/L (40-130); Anion Gap 22.3 (5-19); Aspartate Amino Transferase 29 U/L (0-40); Blood Urea Nitrogen 25 mg/dL (6-20); C Reactive Protein 24.8 mg/L (0.0-4.9); Calcium 8.6 mg/dL (8.5-10.5); Carbon Dioxide 30 mmol/L (22-29); Chloride 88 mmol/L (98-107); Globulin 3.2 g/dL (1.3-4.6); Glomerular Filtration Rate 19.3 mL/min (90-130); Glucose 358 mg/dL (65-115); Lipase 7 U/L (13-60); Magnesium 1.9 mg/dL (1.7-2.3); Osmolality Calculated 303 mOsm/kg (285-295); Potassium 3.3 mmol/L (3.5-5.1); Sodium 137 mmol/L (136-145); Total Bilirubin 0.5 mg/dL (0.15-1.2); Total Protein 6.6 g/dL (6.6-8.7)
[2022-01-09] MEDS: sodium chloride 0.9% 1,000 ML 999 ML IV (20:59)
[2022-01-09] MEDS: piperacillin-tazobactam 4.5 GM in sodium chloride 0.9% (plus) 50 ML IV (20:59)
[2022-01-09] MEDS: potassium chloride ER 20 mEq Tablet PO (21:14)
[2022-01-09] MEDS: ketorolac 30 mg/mL INJ 15 MG IVP (21:20)
[2022-01-09 22:19] LABS: Adenovirus Not Detected (NOT DETECT); Chlamydia Pneumoniae Not Detected (NOT DETECT); Coronavirus 229E,HKU1,NL63,OC4 Not Detected (NOT DETECT); Human Metapneumovirus Not Detected (NOT DETECT); Human Rhinovirus/Enterovirus Not Detected (NOT DETECT); Influenza A Not Detected (NOT DETECT); Influenza A H1 Not Detected (NOT DETECT); Influenza A H1-2009 Not Detected (NOT DETECT); Influenza A H3 Not Detected (NOT DETECT); Influenza B Not Detected (NOT DETECT); Mycoplasma Pneumoniae Not Detected (NOT DETECT); Parainfluenza Virus Type 1 Not Detected (NOT DETECT); Parainfluenza Virus Type 2 Not Detected (NOT DETECT); Parainfluenza Virus Type 3 Not Detected (NOT DETECT); Parainfluenza Virus Type 4 Not Detected (NOT DETECT); Respiratory Syncytial Virus A Not Detected (NOT DETECT); Respiratory Syncytial Virus B Not Detected (NOT DETECT); SARS-COV-2 Not Detected (NOT DETECT)
[2022-01-10 00:25] VITALS: BP 131/64; PULSE 77; RESP 20; O2SAT 98
[2022-01-10] MEDS: midazolam 1 mg/mL INJ 2 mL IVP (00:39)
[2022-01-11 02:17] LABS: Bacillus cereus group Not Detected (NOT DETECT); Bacillus subtillis group Not Detected (NOT DETECT); Corynebacterium Not Detected (NOT DETECT); Cutibacterium acnes (P.acnes) Not Detected (NOT DETECT); Enterococcus Not Detected (NOT DETECT); Enterococcus faecalis Not Detected (NOT DETECT); Enterococcus faecium Not Detected (NOT DETECT); Lactobacillus species Not Detected (NOT DETECT); Listeria Not Detected (NOT DETECT); Listeria monocytogenes Not Detected (NOT DETECT); Micrococcus Not Detected (NOT DETECT); Pan Candida Not Detected (NOT DETECT); Pan Gram-Negative Not Detected (NOT DETECT); Staphylococcus epidermidis Not Detected (NOT DETECT); Staphylococcus lugdunensis Not Detected (NOT DETECT); Staphylococcus species Detected (NOT DETECT); Streptococcus agalactiae Not Detected (NOT DETECT); Streptococcus anginosus group Not Detected (NOT DETECT); Streptococcus pneumoniae Not Detected (NOT DETECT); Streptococcus pyogenes Not Detected (NOT DETECT); Streptococcus species Not Detected (NOT DETECT); mecA Detected (NOT DETECT); mecC Not Detected (NOT DETECT)
== END 2022-01-10 00:45 | disposition short-term general hospital (02) ==
PROVIDERS: Emergency Provider Emergency Medicine; PCP Family Medicine
DX: A41.9 Sepsis, unspecified organism (principal); R65.20 Severe sepsis without septic shock; I48.20 Chronic atrial fibrillation, unspecified; J96.22 Acute and chronic respiratory failure with hypercapnia; J96.21 Acute and chronic respiratory failure with hypoxia; E11.22 Type 2 diabetes mellitus with diabetic chronic kidney disease; I12.0 Hypertensive chronic kidney disease with stage 5 chronic kidney disease or end stage renal disease; N18.6 End stage renal disease; Z99.2 Dependence on renal dialysis; E78.5 Hyperlipidemia, unspecified; Z95.2 Presence of prosthetic heart valve; F17.210 Nicotine dependence, cigarettes, uncomplicated; Z20.822 Contact with and (suspected) exposure to COVID-19
CPT/HCPCS: 36415; 70450; 71045; 71275; 74174; 80053; 82805; 83690; 83735; 84145; 84443; 84484; 85025; 85610; 85730; 86140; 87040; 87635; 93005; 96365; 96366; 96367; 96375; 96376; 99291; 99292; J1720; J1885; J2250; J2405; J2543; J3010; J3370; J7030; J7040; J7060; Q9967

== ENCOUNTER 2022-01-26 17:52 | Emergency (ER) | payer MEDICARE, SELFPAY ==
[2022-01-26] VITALS (16 sets, daily range): BP systolic 64–127; BP diastolic 45–74; PULSE 88–173; RESP 17–28; O2SAT 93–100
--- NOTE | 2022-01-26 18:01 | ECG_ITS ---
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 Measurements Intervals [place] Rate: 133 P: 65 DE: 197 QRS: -50 QRSD: 149 T: 88 QT: 373 QTc: 556 Interpretive Statements Narrow complex tachycardia-possible atrial tachycardia INTRAVENTRICULAR CONDUCTION DELAY [130+ ms QRS DURATION] POSSIBLE LATERAL MYOCARDIAL INFARCTION , OF INDETERMINATE AGE [30 ms Q WAVE IN I/aVL/V5/V6] Compared to ECG 01/09/2022 19:45:37 Intraventricular conduction delay now present Myocardial infarct finding now present Sinus rhythm no longer present Left-axis deviation no longer present ST (T wave) deviation no longer present Electronically Signed On 01-27-2022 7:13:45 VP RESEARCH by Bertin Tierney M.D. [id number]
--- NOTE | 2022-01-26 18:10 | ECG_ITS ---
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 Measurements Intervals [place] Rate: 176 P: 0 OK: 0 QRS: -60 QRSD: 122 T: 81 QT: 297 QTc: 509 Interpretive Statements ATRIAL FIBRILLATION WITH RAPID VENTRICULAR RESPONSE LEFT AXIS DEVIATION [QRS AXIS < -30] RIGHT BUNDLE BRANCH BLOCK [120+ ms QRS DURATION, UPRIGHT V1, 40+ ms S IN I/aVL/V4/V5/V6] POSSIBLE LEFT VENTRICULAR HYPERTROPHY [VOLTAGE CRITERIA PLUS LAE OR QRS WIDENING]. ST DEPRESSION, CONSIDER SUBENDOCARDIAL INJURY [0.1+ mV ST DEPRESSION] CRITICAL TEST RESULT INTERPRETATION BASED ON A DEFAULT AGE OF 40 YEARS Compared to ECG 01/26/2022 18:06:56 Left-axis deviation now present.Right bundle-branch block now present ST (T wave) deviation now present.Sinus tachycardia no longer present Intraventricular conduction delay no longer present Myocardial infarct finding no longer present Electronically Signed On 01-27-2022 7:14:39 ANTIQUE REFINISHER by Bertin Tierney M.D. [id number]
--- NOTE | 2022-01-26 18:49 | XRR_ITS ---
PROCEDURE INFORMATION: Exam: XR Chest Exam date and time: 01/26/2022 7:53 PM Age: 61 years old Clinical indication: Shortness of breath; Additional info: Post line TECHNIQUE: Imaging protocol: Radiologic exam of the chest. Views: 1 view. COMPARISON: CR (CHEST, ) 01/09/2022 7:35 PM FINDINGS: Tubes, catheters and devices: Left neck approach central venous catheter within mid SVC. Right chest tunnel hemodialysis catheter at cavoatrial junction. Lungs: Hazy central lung opacities bilaterally. Increased interstitial lung markings bilaterally. Pleural spaces: Small pleural effusion on the right. Negative for pneumothorax. Left costophrenic angle region is obscured. Heart/Mediastinum: Aortic valve replacement. Mild cardiac enlargement. Bones/joints: Unremarkable. XR/XR chest 1V portable [id number] IMPRESSION: Satisfactory central venous catheter position.
--- NOTE | 2022-01-26 19:05 | ED_ITS ---
HPI - Chest Pain General: Chief Complaint: Chest Pain Stated Complaint: CP/ SOB Time Seen by Provider: 01/26/22 18:01 Source: patient and EMS Mode of arrival: EMS Limitations: no limitations History of Present Illness: 61-year-old male who has a history of multiple heart issues he is admitted at [facility] 2 weeks ago was supposed to stay there until he had a aortic valve replacement he states that he did not want to stay until they were able to do it and left 2 days ago he has had increasing chest pain and shortness of breath. Patient is diaphoretic here he states he is having pain as well. He is tachycardic he denies any vomiting or diarrhea he is hypotensive here as well. Associated symptoms: Reports dyspnea and palpitations; Deny abdominal pain, fever(s), nausea or vomiting Review of Systems Const: Denies: fever(s), chills, body aches or change in appetite Eyes: Denies: blurry vision or eye discomfort ENMT: Denies: throat pain or dental pain Card: Reports: chest pain and palpitations Resp: Reports: dyspnea GI: Denies: abdominal pain, nausea, vomiting or diarrhea : Denies: dysuria Musc: Denies: neck pain or back pain Skin/Breast: Denies: rash Neuro: Denies: headache(s) Psych: Denies: depression Doug/Lymph: Denies: easy bruising All/Imm: Denies: urticaria PFSH ED PFSH: Medical History Atrial flutter Chronic kidney disease Diabetes DJD (degenerative joint disease) 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 Hyperlipidemia Hypertension Intermittent palpitations XI (obstructive sleep apnea) PVD (peripheral vascular disease) Surgical History H/O aortic valve replacement H/O aortic valve replacement with tissue graft H/O foot surgery Family History Grandmother Diabetes Grandfather Diabetes Denies family history of CAD (coronary artery disease) Clotting disorder Dementia Chronic kidney disease (CKD) Suicide Anesthesia complication Bleeding disorder Lung disease Cancer Stroke Social History Smoking and tobacco status: current every day smoker cigarettes Packs smoked per day: 1.25 Years cigarettes smoked: 46 Alcohol intake: never Lives independently: Yes (with girlfriend) Household members: significant other Marital status: Single service: No 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al status: disabled 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 Pets and animals: Yes Physical Exam Const: COMMON NORMALS: no acute distress, patient oriented x3 and healthy appearing GENERAL APPEARANCE: in distress and ill appearing HENMT: COMMON NORMALS: normocephalic and atraumatic HEAD & SCALP: nor mocephalic and atraumatic Eye: COMMON NORMALS: Equal, round and reactive pupils present and EOMs intact bilaterally PUPIL: Yes Equal, round and reactive pupils present Neck/C-Spine: COMMON NORMALS: full ROM and supple Chest: COMMONS NORMALS: normal inspection of the chest and normal palpation of entire chest wall Resp: COMMON NORMALS: normal respiratory effort, No retractions, No use of accessory muscles and clear to auscultation bilaterally AUSCULTATION: clear to auscultation bilaterally Cardio: COMMON NORMALS: negative for No murmurs present (Cardio) RATE: tachycardic GI: COMMON NORMALS: Normal to inspection, nondistended, normoactive bowel sounds present, Soft to palpation, non-tender and no masses PALPATION: Yes Soft to palpation Extremity: COMMON NORMALS: normal to inspection and full ROM Neuro: COMMON NORMALS: patient oriented x3, moves all extremities and no focal motor deficits Psych: COMMON NORMALS: mental status grossly normal, Normal thought process present and cooperative THOUGHT PROCESS: Normal thought process present Skin: COMMON NORMALS: no rashes or lesions noted and no wounds GENERAL SKIN EXAM: no rashes or lesions noted Procedures Central Line Placement Left IJ: Time Out Performed: Yes Patient Placed on Monitor/Pulse Ox: Yes MD Prep: mask, gown and gloves Central Line Prep: Povidone-Iodine 1% Local Anesthetic: lidocaine 1% Amount of anesthesia used (mL): 5 Ultrasound Used for Placement: Yes Central Line Lumen Inserted: triple Post Procedure: sutured in place, good blood return, all ports aspirated, flushed, capped and sterile dressing applied Post Procedure X-Ray: tip of catheter in good position Patient Tolerated Procedure: well Complications: none Procedural Sedation Indication: other (cardioversion) ASA Class: II Time of Last PO Intake: 16:00 IV Etomidate dose (mg): 10 Patient Tolerated Procedure: well Complications: none Course Reevaluation(s): Reevaluation #1: When patient arrived roughly 5 to 10 minutes after he either had a vagal episode or arrested after IV draw I was in the room he did have very shallow breathing his palpitations were not palpable did 2 rounds of CPR no meds were given he then awoke he is extremely diaphoretic I did place a central line placed him on Levophed his blood pressure improved but he was in A. fib with RVR with heart rate 170s did give him amiodarone on amiodarone drip he continued to be extremely tachycardic in the 160s and 170s I did cardiovert him due to him being unstable. Time: 19:45 Vital Signs: Vital signs: Vital Signs Pulse Rate 91 01/26/22 20:00 Respiratory Rate 25 H 01/26/22 20:00 Blood Pressure 103/55 01/26/22 20:00 Pulse Oximetry 99 01/26/22 20:00 Oxygen Delivery Me thod 01/26/22 20:00 Fraction of Inspir ed Oxygen 40 01/26/22 19:10 MDM - Chest Pain Medical Decision Making Patient presents here with cardiogenic shock he was extremely hypotensive he did have a brief cardiac arrest lasted roughly [address] a central line he is on Levophed his blood pressure has improved he continue to be in A. fib with RVR did not respond to amiodarone so he was cardioverted as he was unstable. Spoke to [facility] will transfer there for CT surgery. Lab Data 01/26/22 18:57 01/26/22 18:57 Radiology Impressions Chest X-Ray 01/26/22 18:49 IMPRESSION: Satisfactory central venous catheter position. Laboratory Results WBC 5.1 10^3/uL (4.0-10.0) 01/26/22 18:57 RBC 2.70 10^6/uL (4.1-5.3) L 01/26/22 18:57 Hgb 9.1 g/dL (11.7-16.6) L 01/26/22 18:57 Hct 29.1 % (42.0-52.0) L 01/26/22 18:57 MCV 107.8 fl (80-94) H 01/26/22 18:57 MCH 33.7 pg (28.0-34.0) 01/26/22 18:57 MCHC 31.3 g/dL (30.0-36.0) 01/26/22 18:57 RDW 18.7 % (12.1-15.1) H 01/26/22 18:57 Plt Count 166 10^3/cmm (130-400) 01/26/22 18:57 MPV 9.9 fL (7.4-10.4) 01/26/22 18:57 Neut % (Auto) 59.7 % 01/26/22 18:57 Lymph % (Auto) 21.5 % 01/26/22 18:57 [place] % (Auto) 15.8 % 01/26/22 18:57 Eos % (Auto) 0.6 % 01/26/22 18:57 Baso % (Auto) 1.4 % 01/26/22 18:57 Neut # (Auto) 3.03 10^3/uL (1.8-7.7) 01/26/22 18:57 Lymph # (Auto) 1.1 10^3/uL (0.8-4.8) 01/26/22 18:57 [place] # (Auto) 0.8 10^3/uL (0.2-0.9) 01/26/22 18:57 Eos # (Auto) 0.0 10^3/uL (0.0-0.8) 01/26/22 18:57 Baso # (Auto) 0.1 10^3/uL (0.0-0.1) 01/26/22 18:57 Nucleated RBC % (auto) 0.4 % 01/26/22 18:57 Nucleated RBCs # 0.0 /100WBC 01/26/22 18:57 Sodium 128 mmol/L (136-145) L 01/26/22 18:57 Potassium 3.9 mmol/L (3.5-5.1) 01/26/22 18:57 Chloride 83 mmol/L (98-107) L 01/26/22 18:57 Carbon Dioxide 27 mmol/L (22-29) 01/26/22 18:57 Anion Gap 21.9 (5-19) H 01/26/22 18:57 BUN 34 mg/dL (6-20) H 01/26/22 18:57 Creatinine 4.4 mg/dL (0.7-1.2) H 01/26/22 18:57 GFR Calculation 13.8 mL/min (90-130) L 01/26/22 18:57 Glucose 235 mg/dL (65-115) H 01/26/22 18:57 Calculated Osmolality 281 mOsm/kg (285-295) L 01/26/22 18:57 Lactate 7.6 mmol/L (0.5-2.2) H* 01/26/22 18:57 Calcium 8.7 mg/dL (8.5-10.5) 01/26/22 18:57 Total Bilirubin 1.0 mg/dL (0.15-1.2) 01/26/22 18:57 AST 38 U/L (0-40) 01/26/22 18:57 ALT 35 U/L (0-41) 01/26/22 18:57 Alkaline Phosphatase 121 U/L (40-130) 01/26/22 18:57 Troponin T Baseline 298 ng/L (0-15) H* 01/26/22 18:57 NT-Pro-B Natriuret Pep > 46882 pg/mL (0-125) H 01/26/22 18:57 Total Protein 6.4 g/dL (6.6-8.7) L 01/26/22 18:57 Albumin 3.4 g/dL (3.5-5.2) L 01/26/22 18:57 Globulin 3.0 g/dL (1.3-4.6) 01/26/22 18:57 Critical Care Time Critical Care Time: Critical Care Time: Yes Total Critical Care Time: 45 Attestation: The high probability of a clinically significant, sudden or life threatening deterioration of the patient's cv system(s) required my full and direct attention, intervention and personal management. The critical care time is as shown. This time is in addition to time spent performing any reported procedures but includes the following: [x] Data and vital sign review and interpretation [x] Patient assessment, examination and intervention [x] Documentation [x] Medication orders and management Discharge Plan Discharge Patient Disposition: Xfer Short-Term Hosp Clinical Impression: Cardiogenic shock, Cardiac arrest Condition: Stable Referrals: Sulma Zavala MD [Primary Care Provider] - Coding Level of Care Code ED Habilitation Training Specialist for Chg Fwd Exam Comprehensive
[2022-01-26 19:06] LABS: Basophils # 0.1 10^3/uL (0.0-0.1); Basophils % 1.4 %; Eosinophils % 0.6 %; Hematocrit 29.1 % (42.0-52.0); Hemoglobin 9.1 g/dL (11.7-16.6); Lymphocytes # 1.1 10^3/uL (0.8-4.8); Lymphocytes % 21.5 %; Mean Corpuscular HGB Conc 31.3 g/dL (30.0-36.0); Mean Corpuscular Hemoglobin 33.7 pg (28.0-34.0); Mean Corpuscular Volume 107.8 fl (80-94); Mean Platelet Volume 9.9 fL (7.4-10.4); Monocytes # 0.8 10^3/uL (0.2-0.9); Monocytes % 15.8 %; Neutrophils # 3.03 10^3/uL (1.8-7.7); Neutrophils % 59.7 %; Nucleated Red Blood Cells % 0.4 %; Platelet Count 166 10^3/cmm (130-400); Red Cell Distribution Width 18.7 % (12.1-15.1); White Blood Count 5.1 10^3/uL (4.0-10.0)
--- NOTE | 2022-01-26 19:19 | PC.NURSE ---
This nurse went to start an ultrasound IV at 1810. Had two unsuccessful attempts. Patient was laying semi fowlers in bed. After second attempt patient requested to sit on the side of the bed while attempting to start another IV. When this nurse went to stick patient again he became unresponsive and slumped over onto this nurse. Patient was placed in supine position. This nurse called for help. Patient had agonal breathing and no pulse noted. CPR was initiated by this nurse at 1824. One round of chest compressions was given. Patient became responsive and started to grab at my arms. An IO was started at 1826. Dr. Bernabe put in a Central line at 1840. Patient was started on Levophed for a blood pressure MAP in the 50's. Patient is not alert and responsive to staff. He was placed on a Bipap by respiratory. Patient dean Cruz is at the bedside.
[2022-01-26 19:25] LABS: Lactate (Lactic Acid level) 7.6 mmol/L (0.5-2.2)
[2022-01-26 19:32] LABS: Alanine Aminotransferase 35 U/L (0-41); Albumin Level 3.4 g/dL (3.5-5.2); Alkaline Phosphatase 121 U/L (40-130); Anion Gap 21.9 (5-19); Aspartate Amino Transferase 38 U/L (0-40); Blood Urea Nitrogen 34 mg/dL (6-20); Calcium 8.7 mg/dL (8.5-10.5); Carbon Dioxide 27 mmol/L (22-29); Chloride 83 mmol/L (98-107); Glomerular Filtration Rate 13.8 mL/min (90-130); Glucose 235 mg/dL (65-115); Osmolality Calculated 281 mOsm/kg (285-295); Potassium 3.9 mmol/L (3.5-5.1); Sodium 128 mmol/L (136-145); Total Protein 6.4 g/dL (6.6-8.7); Troponin(5th) Baseline 298 ng/L (0-15)
[2022-01-26 19:54] LABS: NT Pro B Type Natriuretic Pept > 70000 pg/mL (0-125)
--- NOTE | 2022-01-26 20:01 | ECG_ITS ---
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1960 Requested By: Alvino Bernabe Order Number: [id number] Reading MD: Keon Blandon Measurements Intervals [place] Rate: 168 P: 0 DE: 0 QRS: -55 QRSD: 126 T: 86 QT: 329 QTc: 551 Interpretive Statements ATRIAL FIBRILLATION WITH RAPID VENTRICULAR RESPONSE LEFT AXIS DEVIATION [QRS AXIS < -30] POSSIBLE RIGHT VENTRICULAR CONDUCTION DELAY [RSR (QR) IN V1/V2] POSSIBLE LEFT VENTRICULAR HYPERTROPHY [VOLTAGE CRITERIA PLUS LAE OR QRS WIDENING] ST DEVIATION AND MODERATE T-WAVE ABNORMALITY, CONSIDER LATERAL ISCHEMIA [-0.1+ mV T-WAVE IN I/aVL/V5/V6] CRITICAL TEST RESULT Compared to ECG 01/26/2022 18:06:56 No significant change Electronically Signed On 01-27-2022 18:09:23 FIFTH HAND by Keon Blandon [id number]
--- NOTE | 2022-01-26 20:03 | PC.NURSE ---
patient conscious sedated with Etomidate [address] Bernabe. patient cardioverted with 200 J @ 1955. converted to sinus rhythm
[2022-01-26 21:00] LABS: ABG PCO2 35.9 mmHg (35-45); Arterial Blood Gas Hematocrit 34.2 % (42-52); Base Excess ABG 4.7 mmol/L (-2.0-2.0); Blood Gas Allen Test Pos; Blood Gas Sample Site Radial, right; Blood Gas Sample Type Arterial; Oxygen Device BIPAP
[2022-01-26] MEDS: HYDROmorphone 1 mg/mL INJ 1 mL IVP (21:13)
[2022-01-26 21:42] LABS: Troponin 5 2HR Delta 8.4 ABS# (0-10)
[2022-01-26 21:44] LABS: Troponin 5 2HR 306.4 ng/L (0-15)
--- NOTE | 2022-01-26 21:45 | PC.NURSE ---
Notified of troponin result of 306.4
--- NOTE | 2022-01-27 00:01 | ECG_ITS ---
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1960 Requested By: Alvino Bernabe Order Number: [id number] Reading MD: Keon Blandon Measurements Intervals [place] Rate: 93 P: 34 MI: 170 QRS: -33 QRSD: 129 T: 112 QT: 396 QTc: 493 Interpretive Statements SINUS RHYTHM LEFT AXIS DEVIATION [QRS AXIS < -30] POSSIBLE RIGHT VENTRICULAR CONDUCTION DELAY [RSR (QR) IN V1/V2] LEFT VENTRICULAR HYPERTROPHY AND ST-T CHANGE [VOLTAGE CRITERIA PLUS ST/T ABNORMALITY] Compared to ECG 01/26/2022 19:06:00 ST (T wave) deviation now present Atrial fibrillation no longer present T-wave abnormality no longer present Possible ischemia no longer present Electronically Signed On 01-27-2022 18:08:36 MOTORSPORTS TECHNICIAN by Keon Blandon [id number] f
== END 2022-01-26 23:19 | disposition short-term general hospital (02) ==
PROVIDERS: Emergency Provider Emergency Medicine; PCP Family Medicine
DX: I46.9 Cardiac arrest, cause unspecified (principal); R57.0 Cardiogenic shock; I48.92 Unspecified atrial flutter; E11.9 Type 2 diabetes mellitus without complications; I12.9 Hypertensive chronic kidney disease with stage 1 through stage 4 chronic kidney disease, or unspecified chronic kidney disease; N18.9 Chronic kidney disease, unspecified
CPT/HCPCS: 36415; 36600; 71045; 80053; 82803; 83605; 83880; 84484; 85025; 93005; 94660; 96365; 96367; 96375; 99291; C1751; J0282; J1170; J3490; J7060

== ENCOUNTER → 2022-03-03 11:27 | Outpatient (BNVA) | payer MEDICARE, SELFPAY | PROVIDERS: PCP Family Medicine; Visit Provider Podiatrist Foot & Ankle Surgery | DX: L97.511 Non-pressure chronic ulcer of other part of right foot limited to breakdown of skin (principal); Z89.421 Acquired absence of other right toe(s); I73.9 Peripheral vascular disease, unspecified; E11.42 Type 2 diabetes mellitus with diabetic polyneuropathy; Z79.4 Long term (current) use of insulin; L97.513 Non-pressure chronic ulcer of other part of right foot with necrosis of muscle; E11.621 Type 2 diabetes mellitus with foot ulcer | CPT/HCPCS: 11043 ==

== ENCOUNTER → 2022-03-10 13:01 | Outpatient (BNVA) | payer MEDICARE, SELFPAY | PROVIDERS: PCP Family Medicine; Visit Provider Surgery | DX: I96 Gangrene, not elsewhere classified (principal); E11.621 Type 2 diabetes mellitus with foot ulcer; L97.412 Non-pressure chronic ulcer of right heel and midfoot with fat layer exposed | CPT/HCPCS: 11042; 99213; A6212 ==

== ENCOUNTER → 2022-03-23 10:51 | Outpatient (BNVA) | payer MEDICARE, SELFPAY | PROVIDERS: PCP Family Medicine; Visit Provider Thoracic Surgery (Cardiothoracic Vascular Surgery) | DX: E11.621 Type 2 diabetes mellitus with foot ulcer (principal); L97.411 Non-pressure chronic ulcer of right heel and midfoot limited to breakdown of skin | CPT/HCPCS: 11042 ==

== ENCOUNTER → 2022-03-30 10:53 | Outpatient (BNVA) | payer MEDICARE, SELFPAY | PROVIDERS: PCP Family Medicine; Visit Provider Thoracic Surgery (Cardiothoracic Vascular Surgery) | DX: I96 Gangrene, not elsewhere classified (principal); E11.621 Type 2 diabetes mellitus with foot ulcer; L97.411 Non-pressure chronic ulcer of right heel and midfoot limited to breakdown of skin | CPT/HCPCS: 97597 ==

== ENCOUNTER → 2022-04-06 15:58 | Outpatient (BNVA) | payer MEDICARE, SELFPAY | PROVIDERS: PCP Family Medicine; Visit Provider Thoracic Surgery (Cardiothoracic Vascular Surgery) | DX: I96 Gangrene, not elsewhere classified (principal); E11.621 Type 2 diabetes mellitus with foot ulcer; L97.411 Non-pressure chronic ulcer of right heel and midfoot limited to breakdown of skin | CPT/HCPCS: 11042 ==

== ENCOUNTER 2022-04-07 08:18 | Outpatient (CLI) | payer MEDICARE, SELFPAY ==
--- NOTE | 2022-04-07 08:45 | USCV_ITS ---
Richard Huffman Age: 61 Gender: M : 1960 Exam Date: 04/07/2022 09:45 Ordering Phys: Ketan Burris MD Technologist: Andrew Freedman Electrician Locomotive [place] [facility] [place]: ulcers RIGHT LEFT Brachial 178.00 mmHg Brachial mmHg Pressure (mmHg) Waveform Pressure (mmHg) Waveform 65.00 Pre-Exercise Toe Pressure 123.00 0.37 Pre-Exercise Toe/Brachial Index 0.69 FINDINGS Resting TBI of 0.37 on the right and 0.69 on the left CONCLUSIONS Abnormal resting TBIs bilaterally, suggesting moderate peripheral artery disease on the right side and mild peripheral artery disease on the left side Dr Bertin Tierney MD [facility] (Electronically Signed) Final Date: 20 April 2022 08:05 S
== END 2022-04-07 08:19 | disposition home or self-care (01) ==
LOC: RAD 08:25
PROVIDERS: PCP Family Medicine; Visit Provider Surgery
DX: E11.621 Type 2 diabetes mellitus with foot ulcer (principal); I73.9 Peripheral vascular disease, unspecified
CPT/HCPCS: 93922

== ENCOUNTER → 2022-04-15 10:45 | Outpatient (BNVA) | payer MEDICARE, SELFPAY | PROVIDERS: PCP Family Medicine; Visit Provider Thoracic Surgery (Cardiothoracic Vascular Surgery) | DX: I96 Gangrene, not elsewhere classified (principal); E11.621 Type 2 diabetes mellitus with foot ulcer; L97.411 Non-pressure chronic ulcer of right heel and midfoot limited to breakdown of skin | CPT/HCPCS: 11042; A6219 ==

== ENCOUNTER → 2022-04-22 10:50 | Outpatient (BNVA) | payer MEDICARE, SELFPAY | PROVIDERS: PCP Family Medicine; Visit Provider Thoracic Surgery (Cardiothoracic Vascular Surgery) | DX: I96 Gangrene, not elsewhere classified (principal); E11.621 Type 2 diabetes mellitus with foot ulcer; L97.411 Non-pressure chronic ulcer of right heel and midfoot limited to breakdown of skin | CPT/HCPCS: 11042 ==

== ENCOUNTER → 2022-04-29 10:40 | Outpatient (BNVA) | payer MEDICARE, SELFPAY | PROVIDERS: PCP Family Medicine; Visit Provider Thoracic Surgery (Cardiothoracic Vascular Surgery) | DX: I96 Gangrene, not elsewhere classified (principal); E11.621 Type 2 diabetes mellitus with foot ulcer; L97.411 Non-pressure chronic ulcer of right heel and midfoot limited to breakdown of skin | CPT/HCPCS: 97597 ==

== ENCOUNTER → 2022-05-05 09:25 | Outpatient (BNVA) | payer MEDICARE, SELFPAY | PROVIDERS: PCP Family Medicine; Visit Provider Podiatrist Foot & Ankle Surgery | DX: E11.621 Type 2 diabetes mellitus with foot ulcer (principal); L97.513 Non-pressure chronic ulcer of other part of right foot with necrosis of muscle; Z89.421 Acquired absence of other right toe(s); I73.9 Peripheral vascular disease, unspecified; E11.42 Type 2 diabetes mellitus with diabetic polyneuropathy; Z79.4 Long term (current) use of insulin; L60.2 Onychogryphosis; L84 Corns and callosities | CPT/HCPCS: 11055; 11721 ==

== ENCOUNTER → 2022-05-13 11:05 | Outpatient (BNVA) | payer MEDICARE, SELFPAY | PROVIDERS: PCP Family Medicine; Visit Provider Thoracic Surgery (Cardiothoracic Vascular Surgery) | DX: I96 Gangrene, not elsewhere classified (principal); E11.621 Type 2 diabetes mellitus with foot ulcer; L97.411 Non-pressure chronic ulcer of right heel and midfoot limited to breakdown of skin | CPT/HCPCS: 97597 ==

== ENCOUNTER → 2022-05-20 10:39 | Outpatient (BNVA) | payer MEDICARE, SELFPAY | PROVIDERS: PCP Family Medicine; Visit Provider Nurse Practitioner Family | DX: I96 Gangrene, not elsewhere classified (principal); E11.621 Type 2 diabetes mellitus with foot ulcer; L97.412 Non-pressure chronic ulcer of right heel and midfoot with fat layer exposed | CPT/HCPCS: 11042; A6212 ==

== ENCOUNTER → 2022-05-26 12:42 | Outpatient (BNVA) | payer MEDICARE, SELFPAY | PROVIDERS: PCP Family Medicine; Visit Provider Internal Medicine Pulmonary Disease | DX: R06.02 Shortness of breath (principal); F17.210 Nicotine dependence, cigarettes, uncomplicated; R91.1 Solitary pulmonary nodule | CPT/HCPCS: 99204 ==

== ENCOUNTER → 2022-05-27 11:08 | Outpatient (BNVA) | payer MEDICARE, SELFPAY | PROVIDERS: PCP Family Medicine; Visit Provider Nurse Practitioner Family | DX: E11.621 Type 2 diabetes mellitus with foot ulcer (principal); L97.411 Non-pressure chronic ulcer of right heel and midfoot limited to breakdown of skin; I96 Gangrene, not elsewhere classified | CPT/HCPCS: 97597; A6219 ==

== ENCOUNTER → 2022-05-28 09:53 | Outpatient (BNVA) | payer MEDICARE, SELFPAY | PROVIDERS: PCP Family Medicine; Visit Provider Internal Medicine Cardiovascular Disease | DX: I48.91 Unspecified atrial fibrillation (principal); I12.9 Hypertensive chronic kidney disease with stage 1 through stage 4 chronic kidney disease, or unspecified chronic kidney disease; E11.22 Type 2 diabetes mellitus with diabetic chronic kidney disease; F17.210 Nicotine dependence, cigarettes, uncomplicated; N18.4 Chronic kidney disease, stage 4 (severe); Z99.2 Dependence on renal dialysis; Z79.4 Long term (current) use of insulin; E11.618 Type 2 diabetes mellitus with other diabetic arthropathy; Z95.2 Presence of prosthetic heart valve; E78.2 Mixed hyperlipidemia; Z79.899 Other long term (current) drug therapy; Z79.82 Long term (current) use of aspirin | CPT/HCPCS: 93005; 99215 ==

== ENCOUNTER → 2022-05-29 11:26 | Outpatient (BNVA) | payer MEDICARE, SELFPAY | PROVIDERS: PCP Family Medicine; Visit Provider Thoracic Surgery (Cardiothoracic Vascular Surgery) | DX: E11.621 Type 2 diabetes mellitus with foot ulcer (principal); L97.411 Non-pressure chronic ulcer of right heel and midfoot limited to breakdown of skin | CPT/HCPCS: 29581; A6252 ==

== ENCOUNTER → 2022-06-03 11:33 | Outpatient (BNVA) | payer MEDICARE, SELFPAY | PROVIDERS: PCP Family Medicine; Visit Provider Nurse Practitioner Family | DX: I96 Gangrene, not elsewhere classified (principal); E11.621 Type 2 diabetes mellitus with foot ulcer; L97.411 Non-pressure chronic ulcer of right heel and midfoot limited to breakdown of skin | CPT/HCPCS: 97597 ==

== ENCOUNTER → 2022-06-10 11:07 | Outpatient (BNVA) | payer MEDICARE, SELFPAY | PROVIDERS: PCP Family Medicine; Visit Provider Thoracic Surgery (Cardiothoracic Vascular Surgery) | DX: I96 Gangrene, not elsewhere classified (principal); E11.621 Type 2 diabetes mellitus with foot ulcer; L97.411 Non-pressure chronic ulcer of right heel and midfoot limited to breakdown of skin | CPT/HCPCS: 97597 ==

== ENCOUNTER → 2022-06-17 11:19 | Outpatient (BNVA) | payer MEDICARE, SELFPAY | PROVIDERS: PCP Family Medicine; Visit Provider Thoracic Surgery (Cardiothoracic Vascular Surgery) | DX: I96 Gangrene, not elsewhere classified (principal); E11.621 Type 2 diabetes mellitus with foot ulcer; L97.411 Non-pressure chronic ulcer of right heel and midfoot limited to breakdown of skin; L97.521 Non-pressure chronic ulcer of other part of left foot limited to breakdown of skin | CPT/HCPCS: 11042; 97597; A6212 ==

== ENCOUNTER → 2022-06-24 10:39 | Outpatient (BNVA) | payer MEDICARE, SELFPAY | PROVIDERS: PCP Family Medicine; Visit Provider Thoracic Surgery (Cardiothoracic Vascular Surgery) | DX: I96 Gangrene, not elsewhere classified (principal); E11.621 Type 2 diabetes mellitus with foot ulcer; L97.411 Non-pressure chronic ulcer of right heel and midfoot limited to breakdown of skin; L89.891 Pressure ulcer of other site, stage 1 | CPT/HCPCS: 11042; 97597 ==

== ENCOUNTER → 2022-07-01 11:08 | Outpatient (BNVA) | payer MEDICARE, SELFPAY | PROVIDERS: PCP Family Medicine; Visit Provider Thoracic Surgery (Cardiothoracic Vascular Surgery) | DX: I96 Gangrene, not elsewhere classified (principal); E11.621 Type 2 diabetes mellitus with foot ulcer; L97.411 Non-pressure chronic ulcer of right heel and midfoot limited to breakdown of skin; Z09 Encounter for follow-up examination after completed treatment for conditions other than malignant neoplasm | CPT/HCPCS: 11042 ==

== ENCOUNTER → 2022-07-07 09:33 | Outpatient (BNVA) | payer MEDICARE, SELFPAY | PROVIDERS: PCP Family Medicine; Visit Provider Podiatrist Foot & Ankle Surgery | DX: E11.621 Type 2 diabetes mellitus with foot ulcer (principal); L97.513 Non-pressure chronic ulcer of other part of right foot with necrosis of muscle; L60.3 Nail dystrophy; L84 Corns and callosities; E11.42 Type 2 diabetes mellitus with diabetic polyneuropathy; I73.9 Peripheral vascular disease, unspecified; Z89.421 Acquired absence of other right toe(s) | CPT/HCPCS: 11055; 11721 ==

== ENCOUNTER → 2022-07-08 10:52 | Outpatient (BNVA) | payer MEDICARE, SELFPAY | PROVIDERS: PCP Family Medicine; Visit Provider Thoracic Surgery (Cardiothoracic Vascular Surgery) | DX: I96 Gangrene, not elsewhere classified (principal); E11.621 Type 2 diabetes mellitus with foot ulcer; L97.412 Non-pressure chronic ulcer of right heel and midfoot with fat layer exposed | CPT/HCPCS: 11042 ==

== ENCOUNTER 2022-07-15 11:35 | Emergency (ER) | payer MEDICARE, SELFPAY ==
[2022-07-15 12:08] VITALS: BP 152/74; PULSE 70; O2SAT 98
[2022-07-15 12:12] VITALS: TEMP 36.8
--- NOTE | 2022-07-15 13:05 | XR_ITS ---
WS: [id number] Portable AP upright chest, 07/15/2022 Clinical Data: wheezing with cough Comparison: Portable chest, 01/26/2022 Findings: No nodules or masses are seen. There is right pleural reaction and/or effusion. There is a slight increase in the pulmonary vascularity in the lower lobes. The heart is enlarged with an artifi cial cardiac valve. No pneumothorax is seen. There are midline sternotomy sutures. There is a right dialysis catheter ending in the caval atrial junction. XR/XR chest 2V* [id number] Impression: 1. Cardiomegaly and atherosclerosis. 2. Bilateral lower lobe pulmonary opacity which may represent increased pulmona ry vascularity. 3. Right pleural reaction and/or right pleural effusion.
[2022-07-15 13:08] VITALS: PULSE 72; O2SAT 97
--- NOTE | 2022-07-15 13:16 | W.ED.SOB ---
HPI - SOB/Dyspnea General: Chief Complaint: Shortness of Breath/Dyspnea Stated Complaint: SOB Time Seen by Provider: 07/15/22 12:38 History of Present Illness: HPI Narrative: 61-year-old male presents the ER chief complaint progressive shortness of breath difficulty breathing patient is a dialysis patient Wednesday reports he is scheduled for dialysis later today. Patient endorses a prior history of smoking with known history of bronchitis patient notices low-grade temperature with a moderate productive cough and wheezing he does report has been using inhaler more than normal patient does not endorse any current chest pain or palpitations associate with his shortness of breath. Patient does endorse a productive cough with thick june sputum production he reports he is not taking anything [id number] for his cough. Associated symptoms: Deny abdominal pain, chest pain, extremity pain, fever(s), nausea, palpitations or vomiting Review of Systems General: Reports: 10 or more systems reviewed and unremarkable except in HPI and below Const: Denies: fever(s), chills, fatigue or malaise Eyes: Denies: change in vision or blurry vision Card: Denies: chest pain or palpitations Resp: Reports: dyspnea, productive cough and wheezing GI: Denies: abdominal pain, nausea or vomiting : Denies: flank pain Musc: Denies: extremity pain or extremity swelling Skin/Breast: Denies: rash or pruritus Neuro: Denies: headache(s) Psych: Denies: anxiety or depression Doug/Lymph: Denies: easy bleeding All/Imm: Denies: urticaria, throat swelling or facial swelling PFS ED PFSH: Medical History Atrial flutter Chronic kidney disease Diabetes DJD (degenerative joint disease) 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 Hyperlipidemia Hypertension Intermittent palpitations XI (obstructive sleep apnea) PVD (peripheral vascular disease) Surgical History H/O aortic valve replacement H/O aortic valve replacement with tissue graft H/O foot surgery Family History Grandmother Diabetes Grandfather Diabetes Denies family history of CAD (coronary artery disease) Clotting disorder Dementia Chronic kidney disease (CKD) Suicide Anesthesia complication Bleeding disorder Lung disease Cancer Stroke Social History Smoking and tobacco status: current every day smoker cigarettes Packs smoked per day: 1.25 Years cigarettes smoked: 46 Alcohol intake: never Substance/Drug Use: never Lives independently: Yes (with girlfriend) Household members: significant other Marital status: Single service: No 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al status: disabled 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 Pets and animals: Yes Physical Exam Const: COMMON NORMALS: no acute distress, patient oriented x3 and healthy appearing HENMT: COMMON NORMALS: normocephalic and atraumatic HEAD & SCALP: normocephalic and atraumatic Eye: COMMON NORMALS: Equal, round and reactive pupils present and EOMs intact bilaterally PUPIL: Yes Equal, round and reactive pupils present Neck/C-Spine: COMMON NORMALS: full ROM, supple and no JVD Lymph: LYMPHATIC: no lymphadenopathy noted Chest: COMMONS NORMALS: normal inspection of the chest and normal palpation of entire chest wall Resp: COMMON NORMALS: normal respiratory effort, No retractions and clear to auscultation bilaterally EFFORT & INSPECTION: Yes able to speak in complete sentences and Yes symmetric chest movement AUSCULTATION: clear to auscultation bilaterally OTHER: Expiratory wheezing noted bilaterally more so on the left side Cardio: COMMON NORMALS: no JVD, regular rate and regular rhythm RATE: regular rate RHYTHM: regular rhythm GI: COMMON NORMALS: Normal to inspection, nondistended, normoactive bowel sounds present, Soft to palpation and non-tender INSPECTION: Yes normal to inspection PALPATION: Yes Soft to palpation : COMMON NORMALS: Yes no CVA tenderness BLADDER/KIDNEY EXAM: Yes no CVA tenderness Back/Pelvis: COMMON NORMALS: no CVA tenderness Extremity: COMMON NORMALS: normal to inspection and full ROM Neuro: COMMON NORMALS: patient oriented x3, CN's II-XII intact bilaterally, moves all extremities and no focal motor deficits Psych: COMMON NORMALS: mental status grossly normal, Normal thought process present, cooperative and normal affect THOUGHT PROCESS: Normal thought process present Skin: COMMON NORMALS: no rashes or lesions noted GENERAL SKIN EXAM: no rashes or lesions noted Course Vital Signs: Vital signs: Vital Signs Temperature 98.3 F 07/15/22 12:12 Pulse Rate 71 07/15/22 13:31 Respiratory Rate 18 07/15/22 13:31 Blood Pressure 152/74 07/15/22 12:08 Pulse Oximetry 96 07/15/22 13:31 Oxygen Delivery Me thod Room Air 07/15/22 13:31 MDM - SOB/Dyspnea Medical Decision Making Due to the patient's symptoms and condition IV will be established basic lab work and imaging will be obtained we will continue to follow. Patient appears to have acute bronchitis versus COPD exacerbation versus other. Patient was found in acute bronchitis no pneumonia or infiltrate was suggested on his chest x-ray negative lab work reveals chronic renal failure with chronically elevated troponin with chronic anemia the patient upon reassessment was much improved after the steroids and nebulizer given prescription saturations are 96 nasal percent on room air no obvious acute distress patient is actually having no wheezing at this time patient is subcu discharged home advised to further follow-up with primary care in 2 to 3 days which advised to return the interim if any of his symptoms persist or worse Lab Data 07/15/22 12:25 07/15/22 12:25 Labs/Radiology: Radiology Impressions Chest X-Ray 07/15/22 13:05 Impression: 1. Cardiomegaly and atherosclerosis. 2. Bilateral lower lobe pulmonary opacity which may represent increased pulmonary vascularity. 3. Right pleural reaction and/or right pleural effusion. Laboratory Results WBC 7.6 10^3/uL (4.0-10.0) 07/15/22 12:25 RBC 2.36 10^6/uL (4.1-5.3) L 07/15/22 12:25 Hgb 7.6 g/dL (11.7-16.6) L 07/15/22 12:25 Hct 24.3 % (42.0-52.0) L 07/15/22 12:25 MCV 103.0 fl (80-94) H 07/15/22 12:25 MCH 32.2 pg (28.0-34.0) 07/15/22 12:25 MCHC 31.3 g/dL (30.0-36.0) 07/15/22 12:25 RDW 15.9 % (12.1-15.1) H 07/15/22 12:25 Plt Count 224 10^3/cmm (130-400) 07/15/22 12:25 MPV 9.9 fL (7.4-10.4) 07/15/22 12:25 Neut % (Auto) 67.4 % 07/15/22 12:25 Lymph % (Auto) 20.9 % 07/15/22 12:25 [place] % (Auto) 9.2 % 07/15/22 12:25 Eos % (Auto) 1.2 % 07/15/22 12:25 Baso % (Auto) 0.8 % 07/15/22 12:25 Neut # (Auto) 5.14 10^3/uL (1.8-7.7) 07/15/22 12:25 Lymph # (Auto) 1.6 10^3/uL (0.8-4.8) 07/15/22 12:25 [place] # (Auto) 0.7 10^3/uL (0.2-0.9) 07/15/22 12:25 Eos # (Auto) 0.1 10^3/uL (0.0-0.8) 07/15/22 12:25 Baso # (Auto) 0.1 10^3/uL (0.0-0.1) 07/15/22 12:25 Nucleated RBC % (auto) 0 % 07/15/22 12:25 Nucleated RBCs # 0.0 /100WBC 07/15/22 12:25 Sodium 134 mmol/L (136-145) L 07/15/22 12:25 Potassium 5.3 mmol/L (3.5-5.1) H 07/15/22 12:25 Chloride 91 mmol/L (98-107) L 07/15/22 12:25 Carbon Dioxide 28 mmol/L (22-29) 07/15/22 12:25 Anion Gap 20.3 (5-19) H 07/15/22 12:25 BUN 70 mg/dL (6-20) H 07/15/22 12:25 Creatinine 7.4 mg/dL (0.7-1.2) H* 07/15/22 12:25 GFR Calculation 7.6 mL/min (90-130) L 07/15/22 12:25 Glucose 195 mg/dL (65-115) H 07/15/22 12:25 Calculated Osmolality 304 mOsm/kg (285-295) H 07/15/22 12:25 Calcium 9.3 mg/dL (8.5-10.5) 07/15/22 12:25 Total Bilirubin 0.5 mg/dL (0.15-1.2) 07/15/22 12:25 AST 26 U/L (0-40) 07/15/22 12:25 ALT 25 U/L (0-41) 07/15/22 12:25 Alkaline Phosphatase 243 U/L (40-130) H 07/15/22 12:25 Total Protein 6.6 g/dL (6.6-8.7) 07/15/22 12:25 Albumin 3.5 g/dL (3.5-5.2) 07/15/22 12:25 Globulin 3.1 g/dL (1.3-4.6) 07/15/22 12:25 Discharge Plan Discharge Patient Disposition: Home Clinical Impression: Acute bronchitis, Pleural effusion Condition: Stable Prescriptions: New prednisone 20 mg tablet 20 mg PO BID 7 Days Qty: 14 0RF azithromycin 500 mg tablet See Rx Instructions .ROUTE .COMPLEX Qty: 3 0RF Rx Instructions: For 250 mg dose pack: take 500 mg today (day 1), then 250 mg for 4 days (days 2-5) benzonatate 100 mg capsule 100 mg PO TID PRN (Reason: cough) Qty: 14 0RF No Action cholecalciferol (vitamin D3) 125 mcg (5,000 unit) capsule 125 mcg PO BID bumetanide 2 mg tablet 2 mg PO BID doxycycline hyclate 100 mg capsule 100 mg PO DAILY hydrocodone-acetaminophen 5-325 mg tablet 1 tab PO BID PRN (Reason: Pain) tramadol 50 mg tablet 50 mg PO Q4H PRN (Reason: Pain) torsemide 100 mg tablet 100 mg PO DAILY hydralazine 50 mg tablet 50 mg PO TID amiodarone 200 mg tablet 200 mg PO DAILY Qty: 30 5RF albuterol sulfate [Ventolin HFA] 90 mcg/actuation HFA aerosol inhaler 1 inh inhalation QID PRN (Reason: shortness of breath or wheezing) Qty: 8.5 3RF metolazone 2.5 mg tablet 5 mg PO DAILY Vitamin B-12 50 mcg Tablet 50 mcg PO DAILY docusate sodium [Stool Softener] 100 mg Capsule 100 mg PO DAILY aspirin 81 mg Tablet,Chewable 81 mg PO DAILY RenaPlex-D 800 mcg-12.5 mg -2,000 unit Tablet 1 tab PO BEDTIME metoprolol succinate 50 mg tablet extended release 24 hr 50 mg PO BID lisinopril 20 mg tablet 20 mg PO DAILY oxycodone-acetaminophen 5-325 mg tablet 1 tab PO Q4H PRN (Reason: Pain) Discharge Orders: Discharge ED (Routine); Ordered 07/15/22 Ordered By: Jean Pena Referrals: Sulma Zavala MD [Primary Care Provider] - 1-3 days Discharge Diet: Cardiac Discharge Activity: Increase activity as tolerated Patient Instructions: Acute Bronchitis (ED), Pleural Effusion (DC), How to Use a Nebulizer (ED) Activity Restrictions/Additional Instructions: Please follow-up with your primary care doctor in 2 to 3 days, take medication as prescribed and please return the interim if any of your symptoms persist or worse. Coding Level of Care Code ED Junior Accountant Bookkeeper for Lillian Anne
[2022-07-15] MEDS: ipratropium-albuterol 3 mL Neb INHALATION (13:22)
[2022-07-15 13:23] VITALS: PULSE 73; RESP 18; O2SAT 95
[2022-07-15 13:24] LABS: Basophils # 0.1 10^3/uL (0.0-0.1); Basophils % 0.8 %; Eosinophils # 0.1 10^3/uL (0.0-0.8); Eosinophils % 1.2 %; Hematocrit 24.3 % (42.0-52.0); Hemoglobin 7.6 g/dL (11.7-16.6); Lymphocytes # 1.6 10^3/uL (0.8-4.8); Lymphocytes % 20.9 %; Mean Corpuscular HGB Conc 31.3 g/dL (30.0-36.0); Mean Corpuscular Hemoglobin 32.2 pg (28.0-34.0); Mean Platelet Volume 9.9 fL (7.4-10.4); Monocytes # 0.7 10^3/uL (0.2-0.9); Monocytes % 9.2 %; Neutrophils # 5.14 10^3/uL (1.8-7.7); Neutrophils % 67.4 %; Nucleated Red Blood Cells % 0 %; Platelet Count 224 10^3/cmm (130-400); Red Blood Count 2.36 10^6/uL (4.1-5.3); Red Cell Distribution Width 15.9 % (12.1-15.1); White Blood Count 7.6 10^3/uL (4.0-10.0)
[2022-07-15 13:31] VITALS: PULSE 71; RESP 18; O2SAT 96
[2022-07-15] MEDS: benzonatate 100 mg Capsule 200 MG PO (13:32)
[2022-07-15] MEDS: dexamethasone 10 mg/mL INJ IVP (13:33)
[2022-07-15 13:51] LABS: Alanine Aminotransferase 25 U/L (0-41); Albumin Level 3.5 g/dL (3.5-5.2); Alkaline Phosphatase 243 U/L (40-130); Anion Gap 20.3 (5-19); Aspartate Amino Transferase 26 U/L (0-40); Blood Urea Nitrogen 70 mg/dL (6-20); Calcium 9.3 mg/dL (8.5-10.5); Carbon Dioxide 28 mmol/L (22-29); Chloride 91 mmol/L (98-107); Globulin 3.1 g/dL (1.3-4.6); Glomerular Filtration Rate 7.6 mL/min (90-130); Glucose 195 mg/dL (65-115); Osmolality Calculated 304 mOsm/kg (285-295); Potassium 5.3 mmol/L (3.5-5.1); Sodium 134 mmol/L (136-145); Total Bilirubin 0.5 mg/dL (0.15-1.2); Total Protein 6.6 g/dL (6.6-8.7)
[2022-07-15 15:21] VITALS: PULSE 95; O2SAT 96
== END 2022-07-15 15:22 | disposition home or self-care (01) ==
PROVIDERS: Emergency Provider Emergency Medicine; PCP Family Medicine
DX: J20.9 Acute bronchitis, unspecified (principal); J90 Pleural effusion, not elsewhere classified; Z79.82 Long term (current) use of aspirin; F17.210 Nicotine dependence, cigarettes, uncomplicated; E11.22 Type 2 diabetes mellitus with diabetic chronic kidney disease; I12.9 Hypertensive chronic kidney disease with stage 1 through stage 4 chronic kidney disease, or unspecified chronic kidney disease; N18.9 Chronic kidney disease, unspecified; E78.5 Hyperlipidemia, unspecified; I96 Gangrene, not elsewhere classified; E11.621 Type 2 diabetes mellitus with foot ulcer; L97.412 Non-pressure chronic ulcer of right heel and midfoot with fat layer exposed
CPT/HCPCS: 11042; 36415; 71046; 80053; 85025; 94640; 96374; 99284; J1100

== ENCOUNTER 2022-07-15 21:19 | Inpatient (IN) | payer MEDICARE, SELFPAY ==
[2022-07-15 21:29] VITALS: BP 153/63; PULSE 112; RESP 26; TEMP 36.6; O2SAT 97; BMI 32.7
--- NOTE | 2022-07-15 21:32 | ECG_ITS ---
[facility] Test Date: 2022-07-15 Pat Name: Richard Huffman Department: Room: Gender: Male Nurse Navigator: : 1960 Requested By: Anthony Dsouza Order Number: [id number] Kisha MD: Bertin Tierney M.D. Measurements Intervals [place] Rate: 54 P: 265 OK: 213 QRS: -50 QRSD: 160 T: 4 QT: 504 QTc: 478 Interpretive Statements SINUS BRADYCARDIA WITH FIRST DEGREE AV BLOCK WITH FREQUENT SUPRAVENTRICULAR PREMATURE COMPLEXES IN A BIGEMINAL PATTERN RIGHT BUNDLE BRANCH BLOCK [120+ ms QRS DURATION, UPRIGHT V1, 40+ ms S IN I/aVL/V4/V5/V6] LEFT ANTERIOR FASCICULAR BLOCK [QRS AXIS <= -45, QR IN I, RS IN II] VOLTAGE CRITERIA FOR LVH [MEETS CRITERIA IN ONE OF: R(aVL), S(V1), R(V5), R(V5/V6)+S(V1)] Compared to ECG 01/26/2022 19:58:57 First degree AV block now present Right bundle-branch block now present Left anterior fascicular block now present Sinus rhythm no longer present Left-axis deviation no longer present ST (T wave) deviation no longer present Electronically Signed On 07-16-2022 21:18:51 CDT by Bertin Tierney M.D. [id number]
--- NOTE | 2022-07-15 22:01 | W.ED.SOB ---
HPI - SOB/Dyspnea General: Chief Complaint: Shortness of Breath/Dyspnea Stated Complaint: SOB Time Seen by Provider: 07/15/22 21:38 History of Present Illness: HPI Narrative: Patient presents to the ER with complaints of shortness of breath. Patient was seen here earlier this morning. And sent home feeling better. Patient reports missing dialysis. Patient was given a dose of DuoNeb and Decadron this morning and sent home on it with a prescription for azithromycin and prednisone. Prior note was reviewed as well as lab work and imaging. MD elicited complaint: shortness of breath Pertinent past history: COPD Onset (ago): day(s) Timing: constant and progressively worsening Severity: mild Exacerbating factors: lying flat and exertion Relieving factors: oxygen and bronchodilators Known history of: COPD Associated symptoms: Reports cough and orthopnea Treatment prior to arrival: other (Patient was given DuoNeb and Decadron earlier today.) Review of Systems General: Reports: 10 or more systems reviewed and unremarkable except in HPI and below Card: Reports: orthopnea PFSH ED PFSH: Medical History Atrial flutter Chronic kidney disease Diabetes DJD (degenerative joint disease) 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 Hyperlipidemia Hypertension Intermittent palpitations XI (obstructive sleep apnea) PVD (peripheral vascular disease) Surgical History H/O aortic valve replacement H/O aortic valve replacement with tissue graft H/O foot surgery Family History Grandmother Diabetes Grandfather Diabetes Denies family history of CAD (coronary artery disease) Clotting disorder Dementia Chronic kidney disease (CKD) Suicide Anesthesia complication Bleeding disorder Lung disease Cancer Stroke Social History Smoking and tobacco status: current every day smoker cigarettes Packs smoked per day: 1.25 Years cigarettes smoked: 46 Alcohol intake: never Substance/Drug Use: never Lives independently: Yes (with girlfriend) Household members: significant other Marital status: Single service: No 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al status: disabled 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 Pets and animals: Yes Physical Exam Const: COMMON NORMALS: no acute distress, average body habitus, patient oriented x3, no limitations, alert and well nourished HENMT: COMMON NORMALS: normocephalic, atraumatic, hearing grossly normal bilaterally, external ears normal, Normal external nose present and moist oral mucous membranes HEAD & SCALP: normocephalic and atraumatic NOSE: Normal external nose present EXTERNAL EAR: Yes external ears normal Eye: COMMON NORMALS: Equal, round and reactive pupils present, EOMs intact bilaterally, conjunctivae normal and no scleral icterus CONJUNCTIVA: Yes conjunctivae normal PUPIL: Yes Equal, round and reactive pupils present Neck/C-Spine: COMMON NORMALS: full ROM, no lymphadenopathy, supple, no meningeal signs, no JVD and Thyroid normal THYROID: Thyroid normal Lymph: LYMPHATIC: no lymphadenopathy noted Chest: COMMONS NORMALS: normal inspection of the chest and normal palpation of entire chest wall Resp: COMMON NORMALS: normal respiratory effort, No retractions and No use of accessory muscles AUSCULTATION: wheezes Cardio: COMMON NORMALS: no JVD, regular rate, regular rhythm, S1 normal heart sound present and S2 normal heart sound present RATE: regular rate RHYTHM: regular rhythm HEART SOUNDS: S1 normal heart sound present and S2 normal heart sound present GI: COMMON NORMALS: Normal to inspection, nondistended, normoactive bowel sounds present, Soft to palpation, non-tender, No hepatosplenomegaly present and no masses PALPATION: Yes Soft to palpation and Yes No hepatosplenomegaly present : COMMON NORMALS: Yes no CVA tenderness BLADDER/KIDNEY EXAM: Yes no CVA tenderness Back/Pelvis: COMMON NORMALS: no CVA tenderness Neuro: COMMON NORMALS: patient oriented x3 SENSORIUM/ORIENTATION: Yes alert MENINGEAL SIGNS: Yes no meningeal signs Course Vital Signs: Vital signs: Vital Signs Temperature 97.8 F 07/15/22 21:29 Pulse Rate 112 H 07/15/22 21:29 Respiratory Rate 26 H 07/15/22 21:29 Blood Pressure 153/63 07/15/22 21:29 Pulse Oximetry 97 07/15/22 21:29 Oxygen Delivery Me thod Room Air 07/15/22 21:29 MDM - SOB/Dyspnea Medical Decision Making Patient presented for the second time today with the same complaint. Patient's previous lab work and progress note was reviewed. New lab work was obtained. Dr. Bartholomew was consulted. Patient will be admitted to the medical floor pending current lab work. Differential Diagnosis Likely acute exacerbation of chronic obstructive airways disease; Unlikely congestive heart failure, community acquired pneumonia, asthma with exacerbation or pulmonary embolism Medical Records I reviewed the patient's medical records. Lab Data I reviewed the patient's lab results. EKG Data EKG 1: I personally reviewed and interpreted this EKG as follows: EKG Interpretation Date: 07/15/22 EKG interpretation time: 21:40 Prior EKG tracings: not available for review Interpretation: EKG showed sinus bradycardia with a first-degree AV block with occasional PVCs in a bigeminal pattern, ventricular rate of 54 bpm, MN interval 213, QRS duration 160, QTc 489, left anterior fascicular block, right bundle branch block, Discharge Plan Discharge Patient Disposition: Admitted As Inpatient Clinical Impression: Acute exacerbation of chronic obstructive airways disease, SOB (shortness of breath), Chronic kidney disease, Acute bronchitis Condition: Stable Prescriptions: No Action cholecalciferol (vitamin D3) 125 mcg (5,000 unit) capsule 125 mcg PO BID bumetanide 2 mg tablet 2 mg PO BID doxycycline hyclate 100 mg capsule 100 mg PO DAILY hydrocodone-acetaminophen 5-325 mg tablet 1 tab PO BID PRN (Reason: Pain) tramadol 50 mg tablet 50 mg PO Q4H PRN (Reason: Pain) torsemide 100 mg tablet 100 mg PO DAILY hydralazine 50 mg tablet 50 mg PO TID amiodarone 200 mg tablet 200 mg PO DAILY Qty: 30 5RF albuterol sulfate [Ventolin HFA] 90 mcg/actuation HFA aerosol inhaler 1 inh inhalation QID PRN (Reason: shortness of breath or wheezing) Qty: 8.5 3RF metolazone 2.5 mg tablet 5 mg PO DAILY Vitamin B-12 50 mcg Tablet 50 mcg PO DAILY docusate sodium [Stool Softener] 100 mg Capsule 100 mg PO DAILY aspirin 81 mg Tablet,Chewable 81 mg PO DAILY RenaPlex-D 800 mcg-12.5 mg -2,000 unit Tablet 1 tab PO BEDTIME metoprolol succinate 50 mg tablet extended release 24 hr 50 mg PO BID lisinopril 20 mg tablet 20 mg PO DAILY oxycodone-acetaminophen 5-325 mg tablet 1 tab PO Q4H PRN (Reason: Pain) prednisone 20 mg tablet 20 mg PO BID 7 Days Qty: 14 0RF azithromycin 500 mg tablet See Rx Instructions .ROUTE .COMPLEX Qty: 3 0RF Rx Instructions: For 250 mg dose pack: take 500 mg today (day 1), then 250 mg for 4 days (days 2-5) benzonatate 100 mg capsule 100 mg PO TID PRN (Reason: cough) Qty: 14 0RF Referrals: Sulma Zavala MD [Primary Care Provider] - Coding Level of Care Code ED Clerical Aide Teacher for Gerardog Dayana
--- NOTE | 2022-07-15 22:10 | XRR_ITS ---
PROCEDURE INFORMATION: Exam: XR Chest Exam date and time: 07/15/2022 10:21 PM Age: 61 years old Clinical indication: Shortness of breath; Prior surgery; Surgery type: Aortic valve replacement. Dialysis cath. Patient HX: C/O worsening SOB after missing dialysis appt this morning. ; Additional info: Ssob TECHNIQUE: Imaging protocol: Radiologic exam of the chest. Views: 1 view. COMPARISON: CR XR chest 2V* [id number] 07/15/2022 1:16 PM FINDINGS: Tubes, catheters and devices: Right dialysis catheter is again noted with tip in cavoatrial region. Lungs: Increasing ill-defined opacity in the right lung base may represent dependent edema versus pneumonia. Follow-up should be obtained. Pleural spaces: Small right pleural effusion similar to prior exam. No pneumothorax. Heart/Mediastinum: Cardiac silhouette remains mildly enlarged suggesting cardiomegaly and/or pericardial effusion. Vascularity remains slightly prominent suggesting element of vascular congestion/fluid overload. Bones/joints: No acute findings. Sternotomy wires and CABG clips. XR/XR chest 1V portable [id number] IMPRESSION: 1. Enlarged cardiac silhouette size with element of mild vascular congestion/fluid overload. 2. Increasing right basilar opacity. See discussion above. Right pleural effusion is probably unchanged.
[2022-07-15 22:23] VITALS: PULSE 62; RESP 19; O2SAT 95
[2022-07-15] MEDS: ipratropium-albuterol 3 mL Neb INHALATION (22:23)
[2022-07-15 22:27] VITALS: PULSE 51
[2022-07-15 22:32] VITALS: BP 123/54; RESP 22; O2SAT 95
[2022-07-15 22:38] LABS: Basophils % 0.3 %; Hematocrit 27.1 % (42.0-52.0); Hemoglobin 8.2 g/dL (11.7-16.6); Lymphocytes # 0.5 10^3/uL (0.8-4.8); Lymphocytes % 5.2 %; Mean Corpuscular HGB Conc 30.3 g/dL (30.0-36.0); Mean Corpuscular Hemoglobin 31.7 pg (28.0-34.0); Mean Corpuscular Volume 104.6 fl (80-94); Mean Platelet Volume 10.2 fL (7.4-10.4); Monocytes # 0.1 10^3/uL (0.2-0.9); Neutrophils # 8.85 10^3/uL (1.8-7.7); Neutrophils % 92.8 %; Nucleated Red Blood Cells % 0 %; Platelet Count 251 10^3/cmm (130-400); Red Blood Count 2.59 10^6/uL (4.1-5.3); Red Cell Distribution Width 16.2 % (12.1-15.1); White Blood Count 9.6 10^3/uL (4.0-10.0)
[2022-07-15] MEDS: dexamethasone 10 mg/mL INJ IVP (22:40)
--- NOTE | 2022-07-15 22:53 | PM.HP ---
Providers/Chief Complaint Admitting Physician: Desean Montes MD Primary Care Provider: Sulma Zavala MD Chief Complaint: SOB History of Present Illness Richard Huffman is a 61 year old male with a past medical history of atrial fibrillation, not on anticoagulation, end-stage renal disease on hemodialysis, history of aortic valve replacement with tissue graft, history of endocarditis history of umbilical hernia, hyperlipidemia, hypertension, noninsulin-dependent type 2 diabetes mellitus, being evaluated for a nodular density seen on chest CT, history of emphysema, current smoker, who presents to [facility] due to increased shortness of breath, productive cough, increased lower extremity MAHENDRA, missing dialysis. He tells me that his dialysis days are Wednesday, he came to the emergency room this morning, as he was feeling increasingly short of breath, he has been out of his diuretics, he has been short of breath more with exertion, also having a productive cough, yellow-green sputum, no fevers, chills, he was sent home with antibiotic therapy, he was supposed to go to dialysis but continued to feel weak fatigued and short of breath so he have to come back to the emergency room. Currently denies any chest pain, palpitations, does report shortness of breath, Review of Systems Const: Denies: fever(s) Eyes: Denies: change in vision Card: Denies: chest pain Resp: Reports: dyspnea and productive cough GI: Denies: abdominal pain : Denies: difficulty urinating or dysuria Neuro: Denies: headache(s) or numbness in extremities Medications/Allergies Home Medications Medication Instructions Recorded Confirmed Last Taken Type doxycycline hyclate 100 mg capsule 100 mg PO DAILY 07/31/20 07/15/22 07/15/22 History bumetanide 2 mg tablet 2 mg PO BID 11/28/20 07/15/22 07/15/22 History aspirin 81 mg chewable tablet 81 mg PO DAILY 01/26/22 07/15/22 07/15/22 History cyanocobalamin (vitamin B-12) 50 50 mcg PO DAILY 01/26/22 07/15/22 07/15/22 History mcg tablet (Vitamin B-12) docusate sodium 100 mg capsule 100 mg PO DAILY 01/26/22 07/15/22 07/15/22 History (Stool Softener) vit B,C-folic ac 800 mcg-zinc 12.5 1 tab PO BEDTIME 01/26/22 07/15/22 07/14/22 History mg-selen-D3 2,000 unit-vit E tablet (RenaPlex-D) albuterol sulfate 90 mcg/actuation 1 inh inhalation QID PRN shortness 05/26/22 07/15/22 Unknown Rx aerosol inhaler (Ventolin HFA) of breath or wheezing #8.5 grams cholecalciferol (vitamin D3) 125 125 mcg PO BID 05/26/22 07/15/22 07/15/22 History mcg (5,000 unit) capsule amiodarone 200 mg tablet 200 mg PO DAILY #30 tabs 05/28/22 07/15/22 07/15/22 Rx hydralazine 50 mg tablet 50 mg PO TID 05/28/22 07/15/22 07/15/22 History hydrocodone 5 mg-acetaminophen 325 1 tab PO BID PRN Pain 05/28/22 07/15/22 Unknown History mg tablet metolazone 2.5 mg tablet 5 mg PO DAILY 05/28/22 07/15/22 07/15/22 History torsemide 100 mg tablet 100 mg PO DAILY 05/28/22 07/15/22 07/15/22 History tramadol 50 mg tablet 50 mg PO Q4H PRN Pain 05/28/22 07/15/22 Unknown History azithromycin 500 mg tablet See Rx Instructions PO .COMPLEX #3 07/15/22 Unknown Rx tabs benzonatate 100 mg capsule 100 mg PO TID PRN cough #14 caps 07/15/22 Unknown Rx lisinopril 20 mg tablet 20 mg PO DAILY 07/15/22 07/15/22 07/15/22 History metoprolol succinate 50 mg 50 mg PO BID 07/15/22 07/15/22 07/15/22 History tablet,extended release 24 hr oxycodone-acetaminophen 5 mg-325 1 tab PO Q4H PRN Pain 07/15/22 07/15/22 Unknown History mg tablet prednisone 20 mg tablet 20 mg PO BID 7 days #14 tabs 07/15/22 Unknown Rx Allergies Allergy/AdvReac Type Severity Reaction Status Date / Time latex Allergy Mild Blisters Verified 05/28/22 09:29 petrolatum,white Allergy Mild Blisters Verified 05/28/22 09:29 [From A and D Barrier] amlodipine Allergy Unknown Verified 05/28/22 09:29 PFSH Acute PFSH: Medical History Atrial flutter Chronic kidney disease Diabetes DJD (degenerative joint disease) 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 Hyperlipidemia Hypertension Intermittent palpitations XI (obstructive sleep apnea) PVD (peripheral vascular disease) Surgical History H/O aortic valve replacement H/O aortic valve replacement with tissue graft H/O foot surgery Family History Grandmother Diabetes Grandfather Diabetes Denies family history of CAD (coronary artery disease) Clotting disorder Dementia Chronic kidney disease (CKD) Suicide Anesthesia complication Bleeding disorder Lung disease Cancer Stroke Social History Smoking and tobacco status: current every day smoker cigarettes Packs smoked per day: 1.25 Years cigarettes smoked: 46 Alcohol intake: never Substance/Drug Use: never Lives independently: Yes (with girlfriend) Household members: significant other Marital status: Single service: No 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al status: disabled 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 Pets and animals: Yes Vitals/I&O/Wt Last Vital Signs Temp 97.8 F 07/15/22 21:29 Pulse 51 L 07/15/22 22:27 Resp 22 H 07/15/22 22:32 BP 123/54 07/15/22 22:32 Pulse Ox 95 07/15/22 22:32 O2 Del Method Room Air 07/15/22 22:32 Weight last 48 hrs Weight 103.419 kg Physical Exam Const: COMMON NORMALS: no acute distress and patient oriented x3 HENMT: COMMON NORMALS: normocephalic HEAD & SCALP: normocephalic Eye: COMMON NORMALS: Equal, round and reactive pupils present Neck/C-Spine: COMMON NORMALS: no JVD Chest: OTHER: Right chest, dialysis catheter in place Resp: COMMON NORMALS: normal respiratory effort, No retractions and No use of accessory muscles AUSCULTATION: crackles and wheezes Cardio: COMMON NORMALS: no JVD, regular rate, regular rhythm, S1 normal heart sound present and S2 normal heart sound present RATE: regular rate RHYTHM: regular rhythm HEART SOUNDS: S1 normal heart sound present and S2 normal heart sound present GI: COMMON NORMALS: Normal to inspection, nondistended, normoactive bowel sounds present, Soft to palpation and non-tender PALPATION: Yes Soft to palpation and Yes No hepatosplenomegaly present OTHER: Abdominal wall hernia, located under her xiphoid : COMMON NORMALS: Yes no CVA tenderness Extremity: COMMON NORMALS: no pedal edema NARRATIVE EXTREMITY EXAM: 2+ pitting edema bilateral extremity Neuro: COMMON NORMALS: patient oriented x3, CN's II-XII intact bilaterally, moves all extremities and no focal motor deficits Psych: COMMON NORMALS: mental status grossly normal Data 07/15/22 22:32 07/15/22 22:32 A&P Assessment and plan (1) COPD exacerbation: (2) Acute exacerbation of congestive heart failure: (3) Pneumonia: (4) Fluid overload: (5) Diabetes: Qualifiers: Diabetes mellitus type: type 2 Diabetes mellitus terminal manager insulin use: with group home use Diabetes mellitus complication status: with diabetic arthropathy Diabetes mellitus complication detail: with other arthropathy Qualified Code(s): E11.618 - Type 2 diabetes mellitus with other diabetic arthropathy; Z79.4 - ad terminal makeup operator (current) use of insulin (6) Hypertension: Qualifiers: Hypertension type: essential hypertension Qualified Code(s): I10 - Essential (primary) hypertension (7) Hyperlipidemia: Qualifiers: Hyperlipidemia type: mixed hyperlipidemia Qualified Code(s): E78.2 - Mixed hyperlipidemia (8) H/O aortic valve replacement: (9) H/O aortic valve replacement with tissue graft: (10) Leg swelling: (11) SOB (shortness of breath): Plan Shortness of breath -Likely multifactorial from pneumonia, COPD exacerbation, fluid overload, CHF exacerbation Pneumonia -Chest x-ray shows bibasilar infiltrates, infection versus fluid overload -Given his productive cough complaints, shortness of breath complaints, will place him on Rocephin azithromycin -Sputum cultures, blood cultures, Pro-Zachary, CRP -CT chest COPD exacerbation -DuoNeb, budesonide, Decadron -Oxygen therapy CHF exacerbation, likely diastolic, with fluid overload -He does urinate, he has been out of Bumex, Bumex 2 mg IV twice daily -Consult nephrology in a.m. for dialysis -Cardiac echo End-stage renal disease on dialysis, missed dialysis -Blood work pending, need to monitor potassium History of type 2 diabetes mellitus, check A1c, not on any medications Bilateral leg swelling, likely fluid overload we will do venous ultrasound Full code Heparin for DVT prophylaxis Attestations Medical Necessity Statement*: Patient requires hospitalization, inpatient, greater than 2 midnights, for shortness of breath secondary to acute systolic and diastolic CHF exacerbation, fluid overload, missing dialysis, COPD exacerbation, pneumonia Coding Level of Care Code Acute Code for g Fwd Diagnoses COPD exacerbation J44.1 Acute exacerbation of congestive heart failure I50.9 Pneumonia J18.9 Fluid overload E87.70 Diabetes E11.618; Z79.4 Diabetes mellitus type: type 2 Diabetes mellitus group home insulin use: with group home use Diabetes mellitus complication status: with diabetic arthropathy Diabetes mellitus complication detail: with other arthropathy Hypertension I10 Hypertension type: essential hypertension Hyperlipidemia E78.2 Hyperlipidemia type: mixed hyperlipidemia H/O aortic valve replacement Z95.2 H/O aortic valve replacement with tissue graft Z95.4 Leg swelling M79.89 SOB (shortness of breath) R06.02
[2022-07-15 23:51] LABS: Lactic Sepsis W/Reflex 5.1 mmol/L (0.5-2.2)
[2022-07-15 23:52] LABS: Troponin(5th) Baseline 162 ng/L (0-15)
[2022-07-16] VITALS (152 sets, daily range): BP systolic 123–189; BP diastolic 54–112; PULSE 66–95; RESP 12–40; TEMP 36.6–37.1; O2SAT 84–100; BMI 34.0
--- NOTE | 2022-07-16 00:11 | ECG_ITS ---
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 Measurements Intervals [place] Rate: 65 P: -31 DC: 200 QRS: -47 QRSD: 174 T: 34 QT: 480 QTc: 501 Interpretive Statements SINUS RHYTHM WITH SINUS ARRHYTHMIA RIGHT BUNDLE BRANCH BLOCK [120+ ms QRS DURATION, UPRIGHT V1, 40+ ms S IN I/aVL/V4/V5/V6] LEFT ANTERIOR FASCICULAR BLOCK [QRS AXIS <= -45, QR IN I, RS IN II] POSSIBLE LEFT VENTRICULAR HYPERTROPHY [VOLTAGE CRITERIA PLUS LAE OR QRS WIDENING] POSSIBLE SEPTAL MYOCARDIAL INFARCTION , OF INDETERMINATE AGE [30 ms Q WAVE IN V1/V2] Compared to ECG 07/15/2022 21:40:08 Myocardial infarct finding now present Sinus bradycardia no longer present First degree AV block no longer present Electronically Signed On 07-16-2022 21:27:25 CDT by Bertin Tierney M.D. [id number]
--- NOTE | 2022-07-16 00:14 | USCV_ITS ---
Richard Huffman Age: 61 Gender: M : 1960 Exam Date: 07/16/2022 01:53 Ordering Phys: Desean Montes MD Technologist: ROMARIO Exam Location: [facility] [place] Indication: SOB COPD s/p TAVR February 2022. Two prior AVRs, first was mechanical 2016, followed by bovine AVR six months later. BP: 123 / 54 HR: 69 Rhythm: Sinus Technical Quality: Technically difficult due to large ventral hernia MEASUREMENTS (Male / Female) Normal Values 2D ECHO LV Diastolic Diameter PLAX 3.7 cm 4.2 - 5.9 / 3.9 - 5.3 cm LV Systolic Diameter PLAX 2.7 cm IVS Diastolic Thickness 1.8 cm 0.6 - 1.0 / 0.6 - 0.9 cm IVS Systolic Thickness 2.3 cm LVPW Diastolic Thickness 1.3 cm 0.6 - 1.0 / 0.6 - 0.9 cm LVPW Systolic Thickness 1.9 cm LVOT Diameter 1.8 cm LV Ejection Fraction 2D Teich 52.8 % LV Ejection Fraction MOD 2C 58.4 % LV Ejection Fraction 2C AL 57.5 % LA Diameter 5.4 cm LA Width 6.7 cm LA Height 5.7 cm RA Width 3.9 cm RA Height 4.5 cm Aorta at Sinotubular Diameter 3.2 cm IVC Diameter 2.6 cm M-MODE Aortic Annulus Diameter 3.5 cm LA Ao Ratio MM 1.5 DOPPLER AV Peak Velocity 255.7 cm/s LVOT Peak Velocity 93.0 cm/s AV Area Cont Eq vti 1.0 cm squared AV Area Cont Eq pk 0.9 cm squared MV Area PHT 5.0 cm squared Mitral E to A Ratio 2.2 MV E' Velocity 103.5 cm/s Mitral E to MV E' Ratio 31.2 Mitral E to LV E' Lateral Ratio 30.3 Mitral E to LV E' Septal Ratio 32.2 TV Peak E Velocity 59.0 cm/s FINDINGS Left Ventricle Normal left ventricular size and systolic function, EF 59 %. Abnormal septal motion consistent with conduction abnormality. Grade III/IV diastolic dysfunction (restrictive filling pattern), severely elevated filling pressures. Right Ventricle The right ventricle is normal in size and function. Right Atrium The right atrium is normal in size. Left Atrium Moderately increased left atrial size. Mitral Valve Thickened mitral valve. Moderate mitral annular calcification. ? Mitral annular ring. Moderately severe eccentric mitral regurgitation with the regurgitant jet directed posteriorly Aortic Valve The bioprosthetic transcatheter valve appears to be well- positioned. The peak velocity across the aortic valve was 2.59 m/s with a peak gradient of 27 and a mean gradient of 12 mmHg. The valve area was calculated to be 0.94 cm squared Tricuspid Valve Tricuspid valve not well visualized. Pulmonic Valve Pulmonic valve not well visualized. Pericardium Normal pericardium without effusion. Aorta Normal ascending aorta dimension. IVC Dilated IVC with decreased respiratory variation. CONCLUSIONS Normal left ventricular size and systolic function, EF 59 %. Abnormal septal motion consistent with conduction abnormality. Grade III/IV diastolic dysfunction (restrictive filling pattern), severely elevated filling pressures. Moderately increased left atrial size. Thickened mitral valve. Moderate mitral annular calcification,? Mitral annular ring. Moderately severe eccentric mitral regurgitation with the regurgitant jet directed posteriorly. The bioprosthetic transcatheter valve appears to be well- positioned. The peak velocity across the aortic valve was 2.59 m/s with a peak gradient of 27 and a mean gradient of 12 mmHg. The valve area was calculated to be 0.94 cm squared. Dilated IVC with decreased respiratory variation. The PA pressure could not be calculated because of the technical problems There is no pericardial effusion. Compared to the study from 12/03/2020, the peak gradient across the aortic valve remains more or less unchanged. The mitral regurgitation appears to be more severe. Dr Bertin Tierney MD [facility] (Electronically Signed) Final Date: 16 Jul 2022 07:15 S
--- NOTE | 2022-07-16 00:14 | USCV_ITS ---
Richard Huffman Age: 61 Gender: M : 1960 Exam Date: 07/16/2022 01:28 Ordering Phys: Desean Montes MD Technologist: ROMARIO Exam Location: [facility] [place] Indication: SOB COPD , chronic bilateral lower extremity edema. No history of DVT per patient. HISTORY: SOB COPD , chronic bilateral lower extremity edema. No history of DVT per patient. Renal failure on dialysis. DM out of control. PROCEDURES: Venous duplex imaging was performed in bilateral lower extremities. The following venous structures were evaluated: common femoral vein, profunda vein, proximal portion of the greater saphenous vein, superficial femoral vein, and the popliteal vein. In addition, the posterior tibial veins were evaluated. Serial compression, augmentation maneuvers, and spectral Doppler flow evaluation were performed, which were normal. Bilaterally, the common femoral, superficial femoral, profunda femoral, popliteal, posterior tibial, and greater saphenous veins were identified and interrogated in the standard fashion. These veins were found to be easily compressible with spontaneous blood flow. No evidence of thrombus noted. Highly pulsatile bilateral lower extremity venous flow, requiring heavier than normal transducer pressure to compress, suggesting elevated venous pressures and possibly CHF. CONCLUSIONS No evidence of left lower extremity DVT. No evidence of right lower extremity DVT. Rojelio Coleman MD (Electronically Signed) Final Date: 16 Jul 2022 14:48 S
--- NOTE | 2022-07-16 00:14 | CTR_ITS ---
PROCEDURE INFORMATION: Exam: CTA Chest With Contrast Exam date and time: 07/16/2022 1:08 AM Age: 61 years old Clinical indication: Abnormal findings; Abnormal lab test; Other: Mulitple abn labs; Other: N/a; Abnormal diagnostic tests; Other: Multiple abn labs; Cough and shortness of breath; Prior surgery; Surgery type: Aortic valve replacement. Dialysis cath; Patient HX: Cough with SOB. Trop of 162. Lactic acid of 5.1. Alk phos of 339. History of renal failure and copd. ; Additional info: Sob/lactic acidosis/elevated alk phos TECHNIQUE: Imaging protocol: Computed tomographic angiography of the chest with contrast. 3D rendering (Not supervised by radiologist): MIP and/or 3D reconstructed images were created by the technologist. Radiation optimization: All CT scans at this facility use at least one of these dose optimization techniques: automated exposure control; mA and/or kV adjustment per patient size (includes targeted exams where dose is matched to clinical indication); or iterative reconstruction. Contrast material: OMNI 350; Contrast volume: 100 ml; Contrast route: INTRAVENOUS (IV); REPORTING DATA: Count of CT and Cardiac NM exams in prior 12 months: This patient has received 2 known CTs and 0 known cardiac nuclear medicine studies in the 12 months prior to the current study. COMPARISON: CR (CHEST, ) 07/15/2022 10:21 PM RADIATION DOSE METRICS: Total DLP (mGy-cm): 1614.97 FINDINGS: Pulmonary arteries: No main, lobar, or segmental PE identified. Aorta: Unremarkable. No aortic aneurysm. No aortic dissection. Veins: Right IJ PermCath in place. Mild venous congestion. Lungs: Snxkp-nrstihg-rzlv-left areas of lower lung atelectasis or scarring. Pleural spaces: Very small right pleural effusion. Heart: Heart is large. TAVR postop findings. Lymph nodes: Wxyl-ze-oypbnqvi likely reactive bulky bilateral hilar and mediastinal lymphadenopathy. Diaphragm: Tiny hiatal hernia. Bones/joints: Mild spine DJD. A few old right rib deformities. Soft tissues: Bilateral gynecomastia. Large ventral hernia, see below abdomen/pelvis CT report. Other findings: Advanced diffuse vascular calcification noted. PROCEDURE INFORMATION: Exam: CT Abdomen And Pelvis With Contrast Exam date and time: 07/16/2022 1:08 AM Age: 61 years old Clinical indication: Abnormal findings; Abnormal lab test; Other: Mulitple abn labs; Other: N/a; Abnormal diagnostic tests; Other: Multiple abn labs; Cough and shortness of breath; Prior surgery; Surgery type: Aortic valve replacement. Dialysis cath; Patient HX: Cough with SOB. Trop of 162. Lactic acid of 5.1. Alk phos of 339. History of renal failure and copd. ; Additional info: Sob/lactic acidosis/elevated alk phos TECHNIQUE: Imaging protocol: Computed tomography of the abdomen and pelvis with contrast. Radiation optimization: All CT scans at this facility use at least one of these dose optimization techniques: automated exposure control; mA and/or kV adjustment per patient size (includes targeted exams where dose is matched to clinical indication); or iterative reconstruction. Contrast material: OMNI 350; Contrast volume: 100 ml; Contrast route: INTRAVENOUS (IV); REPORTING DATA: Count of CT and Cardiac NM exams in prior 12 months: This patient has received 2 known CTs and 0 known cardiac nuclear medicine studies in the 12 months prior to the current study. COMPARISON: [facility] [id number] 01/09/2022 8:15 PM RADIATION DOSE METRICS: Total DLP (mGy-cm): 1614.97 FINDINGS: Lungs: Small right pleural effusion. Lung base atelectasis. See above chest CT report. Liver: Unremarkable. No enhancing mass. Gallbladder and bile ducts: Gallbladder shows extensive wall thickening. Pancreas: Markedly atrophic pancreas. Spleen: The spleen is not enlarged. No suspicious enhancing mass is noted. Adrenal glands: Normal. No mass. Kidneys and ureters: Lobular and scarred kidneys. Minute left renal cyst. No hydronephrosis. Tiny right renal calcification. Stomach and bowel: Moderate sigmoid diverticulosis. Mild left colon wall thickening. Appendix: No evidence of appendicitis. Intraperitoneal space: Unremarkable. No free air. No suspicious fluid collection. Vasculature: Advanced diffuse vascular calcification noted. Lymph nodes: No enlarged lymph nodes. Urinary bladder: Unremarkable as visualized. Reproductive: Large prostate with internal calcification. Bones/joints: No acute fracture. Soft tissues: Large small bowel and colon containing ventral epigastric hernia again seen, similar to 01/09/[address]/CT angio chest w abd pel w con IMPRESSION: 1. No focal PE. 2. Small right effusion, large heart, and mild venous congestion with other chronic findings above. 3. Likely reactive ynbz-ok-kaycyttn mediastinal and hilar lymphadenopathy. Recommend 3 to 6-month follow-up. 4. Large ventral epigastric hernia, see below abdomen/pelvis CT report. IMPRESSION: 1. Extensive gallbladder wall thickening. Advise correlation. This may be due to 3rd spacing of fluid or cholecystitis. 2. Mild left-sided colitis. No small bowel obstruction, abscess or free air. 3. Multiple chronic findings above. Large epigastric bowel hernia. COMMENTS: Consistent with the [employer]'s Incidental Findings Committee white paper (J Am Yony Radiol 2018): Any incidental renal lesion less than 1 cm or classified as too small to characterize, or any incidental cystic renal lesion characterized as simple-appearing, is likely benign. No follow-up imaging is recommended for these lesions per consensus recommendations based on imaging criteria.
[2022-07-16 00:24] LABS: Troponin 5 2HR Delta -12.4 ABS# (0-10)
[2022-07-16 00:25] LABS: Troponin 5 2HR 149.6 ng/L (0-15)
[2022-07-16 00:30] LABS: Procalcitonin 0.86 ng/mL (0-0.5)
[2022-07-16 00:43] LABS: Alanine Aminotransferase 79 U/L (0-41); Albumin Level 3.6 g/dL (3.5-5.2); Alkaline Phosphatase 339 U/L (40-130); Anion Gap 25.7 (5-19); Aspartate Amino Transferase 132 U/L (0-40); C Reactive Protein 46.6 mg/L (0.0-4.9); Calcium 8.9 mg/dL (8.5-10.5); Carbon Dioxide 21 mmol/L (22-29); Chloride 81 mmol/L (98-107); Globulin 3.2 g/dL (1.3-4.6); Glomerular Filtration Rate 7.3 mL/min (90-130); Osmolality Calculated 308 mOsm/kg (285-295); Phosphorus 5.9 mg/dL (2.5-4.5); Sodium 121 mmol/L (136-145); Total Bilirubin 0.6 mg/dL (0.15-1.2); Total Protein 6.8 g/dL (6.6-8.7)
[2022-07-16 00:49] LABS: Blood Urea Nitrogen 81 mg/dL (6-20)
[2022-07-16 00:52] LABS: Potassium 6.7 mmol/L (3.5-5.1)
[2022-07-16 00:53] LABS: Creatinine Clr Calc Pharmacy 12.4433; Glucose 672 mg/dL (65-115)
--- NOTE | 2022-07-16 01:01 | PC.NURSE ---
Left a message for Dr Montes to call ER prior to transfer to floor re: lab results.
[2022-07-16 01:05] LABS: Reflex Lactate Order REFLEX LACTIC ORDERD
[2022-07-16] MEDS: iohexol 350 mg/mL 500 mL Btl (per mL) IV (01:22)
[2022-07-16 01:32] LABS: Glucose Point of Care > 600 mg/dL (70-110)
[2022-07-16] MEDS: pantoprazole 40 mg SDV IVP (02:01)
[2022-07-16] MEDS: calcium gluconate 0.1 gm/mL 10% SDV 10mL 1 GM IVP (02:02)
[2022-07-16 02:05] LABS: Adenovirus Not Detected (NOT DETECT); Chlamydia Pneumoniae Not Detected (NOT DETECT); Coronavirus 229E,HKU1,NL63,OC4 Not Detected (NOT DETECT); Human Metapneumovirus Not Detected (NOT DETECT); Human Rhinovirus/Enterovirus Not Detected (NOT DETECT); Influenza A Not Detected (NOT DETECT); Influenza A H1 Not Detected (NOT DETECT); Influenza A H1-2009 Not Detected (NOT DETECT); Influenza A H3 Not Detected (NOT DETECT); Influenza B Not Detected (NOT DETECT); Mycoplasma Pneumoniae Not Detected (NOT DETECT); Parainfluenza Virus Type 1 Not Detected (NOT DETECT); Parainfluenza Virus Type 2 Not Detected (NOT DETECT); Parainfluenza Virus Type 3 Not Detected (NOT DETECT); Parainfluenza Virus Type 4 Not Detected (NOT DETECT); Respiratory Syncytial Virus A Not Detected (NOT DETECT); Respiratory Syncytial Virus B Not Detected (NOT DETECT); SARS-COV-2 Not Detected (NOT DETECT)
[2022-07-16] MEDS: bumetanide 0.25 mg/mL SDV 4 mL 2 MG IVP ×2 (02:08→18:28)
[2022-07-16] MEDS: heparin 5,000 unit/mL INJ 1 mL 5000 UNIT SUBCUT ×2 (02:10→12:33)
[2022-07-16] MEDS: insulin regular-human 250 UNIT in sodium chloride 0.9% 250 ML 18.36 UNIT IV (02:28)
[2022-07-16] MEDS: ipratropium-albuterol 3 mL Neb INHALATION ×5 (02:55→20:13)
[2022-07-16 03:22] LABS: Ketone (Acetest) Serum Negative (Negative)
[2022-07-16 03:25] LABS: Estmated Average Glucose 137; Hemoglobin A1C 6.4 % (4.0-6.0)
[2022-07-16 03:41] LABS: Lactic Acid level (Lactate) 4.4 mmol/L (0.5-2.2)
[2022-07-16 03:49] LABS: Glucose Point of Care 524 mg/dL (70-110)
[2022-07-16 03:56] LABS: Folate Level 19.9 ng/mL (4.5-32.2)
--- NOTE | 2022-07-16 04:15 | ECG_ITS ---
[facility] Test Date: 2022-07-16 Pat Name: Richard Huffman Department: Room: 276 Gender: Male Cco: : 1960 Requested By: Desean Montes Order Number: [id number] Kisha MD: Bertin Tierney M.D. Measurements Intervals [place] Rate: 82 P: -70 OH: 166 QRS: -42 QRSD: 151 T: 73 QT: 420 QTc: 493 Interpretive Statements SINUS RHYTHM LEFT AXIS DEVIATION [QRS AXIS < -30] RIGHT BUNDLE BRANCH BLOCK [120+ ms QRS DURATION, UPRIGHT V1, 40+ ms S IN I/aVL/V4/V5/V6] POSSIBLE LEFT VENTRICULAR HYPERTROPHY [VOLTAGE CRITERIA PLUS LAE OR QRS WIDENING] POSSIBLE SEPTAL MYOCARDIAL INFARCTION , OF INDETERMINATE AGE [30 ms Q WAVE IN V1/V2] MODERATE T-WAVE ABNORMALITY, CONSIDER LATERAL ISCHEMIA [-0.1+ mV T-WAVE IN I/aVL/V5/V6] Compared to ECG 07/16/2022 00:11:47 Left-axis deviation now present;T-wave abnormality now present Possible ischemia now present;Sinus arrhythmia no longer present Left anterior fascicular block no longer present Myocardial infarct finding still present Electronically Signed On 07-16-2022 21:27:45 CDT by Bertin Tierney M.D. [id number]
[2022-07-16] MEDS: TRAMadol 50 mg Tablet PO ×2 (04:27→22:09)
--- NOTE | 2022-07-16 04:35 | USR_ITS ---
PROCEDURE INFORMATION: Exam: US Abdomen, Limited; Right Upper Quadrant Exam date and time: 07/16/2022 5:02 AM Age: 61 years old Clinical indication: Other: Normal tbili = 0.6, elevated ast = 132, elevated alt = 79, elevated alkphos = 339; Patient HX: Elevated lfts, no ruq pain. ; Additional info: Acue roxanna TECHNIQUE: Imaging protocol: Real time ultrasound of the abdomen with image documentation. Limited exam focused on the right upper quadrant. COMPARISON: CT angio chest w abd pel w con 07/16/2022 1:08 AM FINDINGS: Pleural spaces: Very small right pleural effusion. Liver: Liver is 20 cm in length. It is mildly heterogenous. Gallbladder: Gallbladder wall is very thickened to 10 mm. No stones are seen. Biliary ducts: No evidence of intrahepatic biliary dilation. No CBD dilation. Pancreas: The pancreas is obscured by the known large epigastric bowel hernia. Right kidney: Kidney is 10 cm, echogenic. No focal mass or hydronephrosis. Portal venous: The portal vein is large. US/US gall bladder [id number] IMPRESSION: 1. Severe gallbladder wall thickening, which is probably due to 3rd spacing of fluid or adjacent liver disease. If pain persists, HIDA scan may be considered. 2. No cholelithiasis or CBD dilation. 3. Large and diseased appearing liver with evidence of pulmonary hypertension. 4. Echogenic right kidney with medical renal disease likely. 5. Very small right pleural effusion.
[2022-07-16 04:41] LABS: Anion Gap 26.3 (5-19); Calcium 8.7 mg/dL (8.5-10.5); Carbon Dioxide 22 mmol/L (22-29); Chloride 81 mmol/L (98-107); Iron 70 ug/dL (59-158); Osmolality Calculated 306 mOsm/kg (285-295); Percent Saturation 31.9 % (20-50); Potassium 6.3 mmol/L (3.5-5.1); Sodium 123 mmol/L (136-145); Thyroid Stimulating Hormone 1.49 uIU/mL (0.27-4.20); Total Iron Binding Capacity 219 mcg/dl; Unsaturated Iron Binding 149 ug/dL (112-347); Vitamin B12 1712 pg/mL (232-1245)
[2022-07-16 04:46] LABS: Blood Urea Nitrogen 83 mg/dL (6-20); Glucose 547 mg/dL (65-115)
[2022-07-16 04:56] LABS: Ferritin 2022 ng/mL (30-400)
[2022-07-16 05:08] LABS: Glucose Point of Care 326 mg/dL (70-110)
--- NOTE | 2022-07-16 05:31 | PC.PHAR ---
Vancomycin 1gm iv to be given now then 1 gm after dialysis Thank you, Julia Bashir [facility]
[2022-07-16 05:47] LABS: Basophils % 0.1 %; Hemoglobin 7.7 g/dL (11.7-16.6); Lymphocytes # 0.7 10^3/uL (0.8-4.8); Lymphocytes % 7.6 %; Mean Corpuscular HGB Conc 30.8 g/dL (30.0-36.0); Mean Corpuscular Hemoglobin 32.4 pg (28.0-34.0); Monocytes # 0.3 10^3/uL (0.2-0.9); Monocytes % 3.1 %; Neutrophils # 8.58 10^3/uL (1.8-7.7); Neutrophils % 88.4 %; Nucleated Red Blood Cells % 0.2 %; Platelet Count 193 10^3/cmm (130-400); Red Blood Count 2.38 10^6/uL (4.1-5.3); Red Cell Distribution Width 15.8 % (12.1-15.1); White Blood Count 9.7 10^3/uL (4.0-10.0)
[2022-07-16 06:08] LABS: Anion Gap 27.4 (5-19); Calcium 9.3 mg/dL (8.5-10.5); Carbon Dioxide 19 mmol/L (22-29); Chloride 85 mmol/L (98-107); Glomerular Filtration Rate 6.5 mL/min (90-130); Glucose 203 mg/dL (65-115); Osmolality Calculated 294 mOsm/kg (285-295); Potassium 5.4 mmol/L (3.5-5.1); Sodium 126 mmol/L (136-145)
[2022-07-16 06:09] LABS: Troponin 5 6HR Delta -11.5 ng/L (0-12)
[2022-07-16 06:10] LABS: Troponin 5 6HR 150.5 ng/L (0-15)
[2022-07-16 06:12] LABS: Blood Urea Nitrogen 86 mg/dL (6-20)
[2022-07-16 07:13] LABS: Glucose Point of Care 101 mg/dL (70-110)
[2022-07-16] MEDS: dextrose 5%-sod chloride 0.45% 1,000 ML 125 ML IV (07:17)
--- NOTE | 2022-07-16 07:30 | PC.NURSE ---
Admission Note: Pt arrived to ICU 10 from ER @0631 07/16/22. RA, SpO2 93%. A&Ox4. Pain 09/21 in his back. Large hiatal hernia noted. R. foot wound noted. Insulin running @13.3 ml/hr on arrival. BG 101. Dr. Montes called, new order for D5 1/2NS @125ml/hr. Insulin rate changed per protocol. See MAR for titration.
[2022-07-16] MEDS: aspirin 81 mg Chew Tablet PO (08:18)
[2022-07-16] MEDS: metoprolol succinate ER (24 HR) 50 mg Tablet PO ×2 (08:18→20:28)
[2022-07-16] MEDS: lisinopril 20 mg Tablet PO (08:19)
[2022-07-16] MEDS: amiodarone 200 mg Tablet PO (08:19)
[2022-07-16] MEDS: dexamethasone 10 mg/mL INJ 6 MG IVP (08:21)
[2022-07-16] MEDS: hyDRALAzine 50 mg Tablet PO ×3 (08:21→22:08)
[2022-07-16] MEDS: vancomycin 1,000 MG in sodium chloride 0.9% 250 ML 250 MG IV (08:23)
[2022-07-16] MEDS: piperacillin-tazobactam 3.375 GM in sodium chloride 0.9% (plus) 50 ML IV (08:23)
[2022-07-16 08:28] LABS: Glucose Point of Care 99 mg/dL (70-110)
[2022-07-16] MEDS: budesonide 0.5 mg/2 mL Neb INHALATION ×2 (08:43→20:13)
[2022-07-16 08:52] LABS: Calcium 9.4 mg/dL (8.5-10.5); Carbon Dioxide 23 mmol/L (22-29); Chloride 85 mmol/L (98-107); Glomerular Filtration Rate 6.8 mL/min (90-130); Glucose 81 mg/dL (65-115); Osmolality Calculated 288 mOsm/kg (285-295); Sodium 126 mmol/L (136-145)
[2022-07-16 09:01] LABS: Urine Appearance Clear (CLEAR); Urine Color Yellow (Yellow)
[2022-07-16 09:02] LABS: Bilirubin Urine Neg (Negative); Blood Urine 2+ (Negative); Glucose Urine UA 4+ (Normal); Ketones Urine Negative (Negative); Leukocyte Esterase Urine Negative (Negative); Nitrate Urine Negative (Negative); Protein Urine 3+ (Negative); Specific Gravity, Urine 1.015 (1.005-1.030); Urobilinogen Urine Neg (Negative); pH Urine 9 (5-7)
[2022-07-16 09:09] LABS: Add Urine Microscopic? YES; Sulfosalicylic Acid Urine Positive (Negative)
[2022-07-16 09:10] LABS: RBC Urine 0-4 /hpf (0-2); Squamous Epithelial Cell Urine 0-4 /hpf (0-5); WBC Urine 0-4 /hpf (0-5)
[2022-07-16 09:11] LABS: Add Urine Culture? No
[2022-07-16 09:26] LABS: Anion Gap 23.4 (5-19); Blood Urea Nitrogen 87 mg/dL (6-20); Potassium 5.4 mmol/L (3.5-5.1)
[2022-07-16 10:18] LABS: Glucose Point of Care 205 mg/dL (70-110)
[2022-07-16 11:28] LABS: Glucose Point of Care 238 mg/dL (70-110)
--- NOTE | 2022-07-16 12:03 | P.PN_ITS ---
Subjective Subjective: Overnight labs and H&P reviewed. Renal consult obtained to evaluate for dialysis. Serum ketones and urine ketones negative. Blood sugar ranging 100-1 20. Insulin drip has been discontinued. Anion gap still persisting and also still with hyperkalemia, anticipate these electrolyte abnormalities to improve with dialysis. HbA1c at 6.4. CT of the abdomen and pelvis with extensive gallbladder wall thickening and mild left colitis, however no clinical correlate for the same. Suspect that this is related to generalized anasarca and bowel edema. Will reassess once dialysis is completed. Medications: Reviewed: Yes Vitals/I&O/Wt Last Vital Signs Temp 98.0 F 07/16/22 08:05 Pulse 71 07/16/22 11:50 Resp 18 07/16/22 11:42 BP 156/89 07/16/22 11:10 Pulse Ox 96 07/16/22 11:42 O2 Del Method Room Air 07/16/22 11:42 07/15/22 07/16/22 07/16/22 22:59 06:59 14:59 Intake Total 29.376 / 29.376 54.443 / 54.443 Output Total 300 / 300 Balance 29.376 / 29.376 -245.557 / -245.557 Weight last 48 hrs Weight 104.326 kg Weight 103.419 kg Physical Exam Narrative: General: No acute distress, AO x3 HEENT: PERRLA, pupils bilaterally equal and reactive, pallors not present Chest: Normal vesicular breath sounds, no added sounds, equal good air entry bilaterally CVS: S1-S2 regular, no murmurs, no tachycardia, no gallops, no rubs Abdomen: Soft, nontender, no organomegaly, bowel sounds present Neuro: No focal deficits, no facial deformity, AO x3, power 5/5 in all limbs Data 07/16/22 05:40 07/16/22 08:12 Micro: Microbiology 07/16/22 02:54 Blood Culture - Preliminary Blood SPECIMEN COLLECTED 07/16/22 02:58 Blood Culture - Preliminary Blood SPECIMEN COLLECTED A&P Assessment and plan (1) COPD exacerbation: (2) Acute exacerbation of congestive heart failure: (3) Pneumonia: (4) Fluid overload: (5) Diabetes: Qualifiers: Diabetes mellitus complication detail: with other arthropathy Diabetes mellitus complication status: with diabetic arthropathy Diabetes mellitus oil heaterman insulin use: with [facility] use Diabetes mellitus type: type 2 Qualified Code(s): E11.618 - Type 2 diabetes mellitus with other diabetic arthropathy; Z79.4 - [facility] (current) use of insulin (6) Hypertension: Qualifiers: Hypertension type: essential hypertension Qualified Code(s): I10 - Essential (primary) hypertension (7) Hyperlipidemia: Qualifiers: Hyperlipidemia type: mixed hyperlipidemia Qualified Code(s): E78.2 - Mixed hyperlipidemia (8) H/O aortic valve replacement: (9) H/O aortic valve replacement with tissue graft: (10) Leg swelling: (11) SOB (shortness of breath): Plan Shortness of breath - Suspect that this is mostly related to fluid overload from missing dialysis and CHF exacerbation Pneumonia now appearing to be less likely -Chest x-ray shows bibasilar infiltrates, infection versus fluid overload -Clinically appears to be more likely related to fluid overload. Echocardiogram shows grade 3 diastolic dysfunction, dilated IVC Patient is planned for dialysis today which will help. Discontinue antibiotics for now and monitor off antimicrobials. Should patient develop significant fever, worsening leukocytosis, this may need to be reconsidered. 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 CT of the chest performed yesterday does not show any gross consolidation. COPD exacerbation -DuoNeb, budesonide Continue dexamethasone -Oxygen therapy CHF exacerbation,acute on chronic diastolic, with fluid overload -He does urinate, he has been out of Bumex, Bumex 2 mg IV twice daily HD today End-stage renal disease on dialysis, missed dialysis History of type 2 diabetes mellitus, a1c 6.4 Discontinue insulin drip No kentones on blood or urine elevated anion gap and lactate likely 2/2 metabolic acidosis due to missed HD Planned session today, renal consulted Bilateral leg swelling, likely fluid overload Full code Heparin for DVT prophylaxis Attestations Medical Necessity Statement*: > planned HD today Coding Level of Care Code Acute Code for [facility] Diagnoses COPD exacerbation J44.1 Acute exacerbation of congestive heart failure I50.9 Pneumonia J18.9 Fluid overload E87.70 Diabetes E11.618; Z79.4 Diabetes mellitus complication detail: with other arthropathy Diabetes mellitus complication status: with diabetic arthropathy Diabetes mellitus oil heaterman insulin use: with [facility] use Diabetes mellitus type: type 2 Hypertension I10 Hypertension type: essential hypertension Hyperlipidemia E78.2 Hyperlipidemia type: mixed hyperlipidemia H/O aortic valve replacement Z95.2 H/O aortic valve replacement with tissue graft Z95.4 Leg swelling M79.89 SOB (shortness of breath) R06.02
[2022-07-16] MEDS: insulin lispro 100 unit/1 mL SUBCUT ×3 (12:33→22:10)
[2022-07-16 14:02] LABS: Calcium 8.6 mg/dL (8.5-10.5); Carbon Dioxide 20 mmol/L (22-29); Chloride 86 mmol/L (98-107); Glomerular Filtration Rate 6.6 mL/min (90-130); Glucose 210 mg/dL (65-115); Osmolality Calculated 293 mOsm/kg (285-295); Sodium 125 mmol/L (136-145)
[2022-07-16 14:11] LABS: Anion Gap 25.5 (5-19)
[2022-07-16 14:21] LABS: Blood Urea Nitrogen 89 mg/dL (6-20); Hepatitis B Core AB, Total Non-Reactive (Nonreactive); Hepatitis B Surface AB 57.1 (11.5-1000); Hepatitis B Surface Antigen Non-Reactive (Nonreactive); Potassium 6.5 mmol/L (3.5-5.1)
[2022-07-16] MEDS: heparin, porcine 1,000 unit/mL INJ 10 mL 10000 UNIT INTRACATH (14:28)
[2022-07-16] MEDS: heparin, porcine 1,000 unit/mL INJ 10 mL 1000 UNIT IV (14:28)
[2022-07-16 16:12] LABS: Anion Gap 17.3 (5-19); Blood Urea Nitrogen 53 mg/dL (6-20); Calcium 8.6 mg/dL (8.5-10.5); Carbon Dioxide 26 mmol/L (22-29); Chloride 90 mmol/L (98-107); Glomerular Filtration Rate 10.9 mL/min (90-130); Glucose 208 mg/dL (65-115); Osmolality Calculated 288 mOsm/kg (285-295); Potassium 4.3 mmol/L (3.5-5.1); Sodium 129 mmol/L (136-145)
[2022-07-16 17:30] LABS: Glucose Point of Care 159 mg/dL (70-110)
--- NOTE | 2022-07-16 19:14 | PC.NURSE ---
Shift SUmmary: Uneventful shift. Patient rested in bed, or sat on the side of the bed throughout the day. Room air all day. Received a dialysis treatment during which 3L were removed. At the time of this note, dialysis followup BMP is pending.
[2022-07-16 19:15] LABS: Blood Urea Nitrogen 34 mg/dL (6-20); Calcium 8.5 mg/dL (8.5-10.5); Carbon Dioxide 27 mmol/L (22-29); Chloride 94 mmol/L (98-107); Glomerular Filtration Rate 16.9 mL/min (90-130); Glucose 161 mg/dL (65-115); Osmolality Calculated 289 mOsm/kg (285-295); Sodium 134 mmol/L (136-145)
--- NOTE | 2022-07-16 19:24 | PM.CONSULT ---
Providers/Reason For Consult Consulting Physician/Specialty*: kommana/nephrology Reason for Consult*: ESRD Attending Physician: Beckie Stafford MD Primary Care Provider: Sulma Zavala MD History of Present Illness History of Present Illness Patient is a 61-year-old male with past medical history of A-fib on anticoagulation, incisional disease on dialysis per Wednesday schedule, history of aortic valve replacement, history of endocarditis, hypertension, dyslipidemia, diabetes presented to the emergency department due to worsening shortness of breath with cough. He missed dialysis yesterday. Lab data significant for potassium of 5.4 sodium 126 and BUN of 87 creatinine of 8.1. Chest x-ray showed bibasilar infiltrates echocardiogram showed grade 3 diastolic dysfunction Review of Systems Narrative: Other review of systems negative Medications/Allergies Home Medications Medication Instructions Recorded Confirmed Last Taken Type doxycycline hyclate 100 mg capsule 100 mg PO DAILY 07/31/20 07/16/22 07/15/22 History bumetanide 2 mg tablet 2 mg PO BID 11/28/20 07/16/22 07/15/22 History aspirin 81 mg chewable tablet 81 mg PO DAILY 01/26/22 07/16/22 07/15/22 History cyanocobalamin (vitamin B-12) 50 50 mcg PO DAILY 01/26/22 07/16/22 07/15/22 History mcg tablet (Vitamin B-12) docusate sodium 100 mg capsule 100 mg PO DAILY 01/26/22 07/16/22 07/15/22 History (Stool Softener) vit B,C-folic ac 800 mcg-zinc 12.5 1 tab PO BEDTIME 01/26/22 07/16/22 07/14/22 History mg-selen-D3 2,000 unit-vit E tablet (RenaPlex-D) albuterol sulfate 90 mcg/actuation 1 inh inhalation QID PRN shortness 05/26/22 07/16/22 Unknown Rx aerosol inhaler (Ventolin HFA) of breath or wheezing #8.5 grams cholecalciferol (vitamin D3) 125 125 mcg PO BID 05/26/22 07/16/22 07/15/22 History mcg (5,000 unit) capsule amiodarone 200 mg tablet 200 mg PO DAILY #30 tabs 05/28/22 07/16/22 07/15/22 Rx hydralazine 50 mg tablet 50 mg PO TID 05/28/22 07/16/22 07/15/22 History hydrocodone 5 mg-acetaminophen 325 1 tab PO BID PRN Pain 05/28/22 07/16/22 Unknown History mg tablet metolazone 2.5 mg tablet 5 mg PO DAILY 05/28/22 07/16/22 07/15/22 History torsemide 100 mg tablet 100 mg PO DAILY 05/28/22 07/16/22 07/15/22 History tramadol 50 mg tablet 50 mg PO Q4H PRN Pain 05/28/22 07/16/22 Unknown History azithromycin 500 mg tablet See Rx Instructions PO .COMPLEX #3 07/15/22 07/16/22 Unknown Rx tabs benzonatate 100 mg capsule 100 mg PO TID PRN cough #14 caps 07/15/22 07/16/22 Unknown Rx lisinopril 20 mg tablet 20 mg PO DAILY 07/15/22 07/16/22 07/15/22 History metoprolol succinate 50 mg 50 mg PO BID 07/15/22 07/16/22 07/15/22 History tablet,extended release 24 hr oxycodone-acetaminophen 5 mg-325 1 tab PO Q4H PRN Pain 07/15/22 07/16/22 Unknown History mg tablet prednisone 20 mg tablet 20 mg PO BID 7 days #14 tabs 07/15/22 07/16/22 Unknown Rx tiotropium bromide 1.25 2 puff inhalation BID 07/16/22 07/16/22 Unknown History mcg/actuation mist for inhalation (Spiriva Respimat) Allergies Allergy/AdvReac Type Severity Reaction Status Date / Time latex Allergy Mild Blisters Verified 05/28/22 09:29 petrolatum,white Allergy Mild Blisters Verified 05/28/22 09:29 [From A and D Barrier] amlodipine Allergy Unknown Verified 05/28/22 09:29 Current Medications Generic Name Dose Route Start Last Admin Trade Name Freq PRN Reason Stop Dose Admin Albuterol/Ipratropium 3 ml 07/16/22 00:14 07/16/22 16:02 Ipratropium-Albuterol 3 Ml Neb INHALATION 3 ml Q4H.RESPIRATORY KENNEDY Administration Amiodarone HCl 200 mg 07/16/22 09:00 07/16/22 08:19 Amiodarone 200 Mg Tablet PO 200 mg DAILY KENNEDY Administration Aspirin 81 mg 07/16/22 09:00 07/16/22 08:18 Aspirin 81 Mg Chew Tablet PO 81 mg DAILY KENNEDY Administration Budesonide 0.5 mg 07/16/22 08:00 07/16/22 08:43 Budesonide 0.5 Mg/2 Ml Neb INHALATION 0.5 mg BID.RESPIRATORY KENNEDY Administration Bumetanide 2 mg 07/16/22 02:15 07/16/22 18:28 Bumetanide 0.25 Mg/Ml Sdv 4 Ml IVP 2 mg Q12H KENNEDY Administration Heparin Sodium (Porcine) 5,000 unit 07/16/22 00:14 07/16/22 12:33 Heparin 5,000 Unit/Ml Inj 1 Ml SUBCUT 5,000 unit Q12H KENNEDY Administration Hydralazine HCl 50 mg 07/16/22 09:00 07/16/22 18:20 Hydralazine 50 Mg Tablet PO 50 mg TID KENNEDY Administration Insulin Human Lispro 0 unit 07/16/22 12:00 07/16/22 17:39 Insulin Lispro 100 Unit/1 Ml SUBCUT 4 unit WM&BEDTIME KENNEDY Administration Protocol Lisinopril 20 mg 07/16/22 09:00 07/16/22 08:19 Lisinopril 20 Mg Tablet PO 20 mg DAILY KENNEDY Administration Metoprolol Succinate 50 mg 07/16/22 09:00 07/16/22 08:18 Metoprolol Succinate Er (24 Hr) 50 Mg Tablet PO 50 mg BID KENNEDY Administration Pantoprazole Sodium 40 mg 07/16/22 00:14 07/16/22 02:01 Pantoprazole 40 Mg Sdv IVP 40 mg Q24H KENNEDY Administration PFSH Acute PFSH: Medical History Atrial flutter Chronic kidney disease Diabetes DJD (degenerative joint disease) 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 Hyperlipidemia Hypertension Intermittent palpitations XI (obstructive sleep apnea) PVD (peripheral vascular disease) Surgical History H/O aortic valve replacement H/O aortic valve replacement with tissue graft H/O foot surgery Family History Grandmother Diabetes Grandfather Diabetes Denies family history of CAD (coronary artery disease) Clotting disorder Dementia Chronic kidney disease (CKD) Suicide Anesthesia complication Bleeding disorder Lung disease Cancer Stroke Social History Smoking and tobacco status: current every day smoker cigarettes Packs smoked per day: 1.25 Years cigarettes smoked: 46 Alcohol intake: never Substance/Drug Use: never Lives independently: Yes (with girlfriend) Household members: significant other Marital status: Single service: No 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al status: disabled 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 Pets and animals: Yes Vitals/I&O/Wt Last Vital Signs Temp 97.9 F 07/16/22 18:23 Pulse 90 07/16/22 18:45 Resp 29 H 07/16/22 18:45 BP 156/78 07/16/22 18:45 Pulse Ox 93 07/16/22 18:45 O2 Del Method Room Air 07/16/22 16:25 07/16/22 07/16/22 07/16/22 06:59 14:59 22:59 Intake Total 29.376 / 29.376 850.726 / 850.726 840 / 1690.726 Output Total 600 / 600 3300 / 3900 Balance 29.376 / 29.376 250.726 / 250.726 -2460 / -2209.274 Weight last 48 hrs Weight 104.5 kg Weight 104.326 kg Weight 103.419 kg Physical Exam Narrative: Patient is awake alert, no acute distress, right IJ tunnel catheter, bibasilar crackles per report S1 S2 RRR per report + edema Data 07/16/22 05:40 07/16/22 18:20 Micro: Microbiology 07/16/22 02:54 Blood Culture - Preliminary Blood SPECIMEN COLLECTED 07/16/22 02:58 Blood Culture - Preliminary Blood SPECIMEN COLLECTED A&P Assessment and plan (1) ESRD (end stage renal disease): Plan 1. end-stage renal disease: On MWF schedule as outpatient, patient is HDS today, plan for HD today and ultrafiltration as tolerated. 2. Hyperkalemia: Mild, should improve with HD 3. Hypertension: Blood pressure elevated, restart home meds 4. Acute on chronic respiratory failure: Multifactorial with history of CHF, sleep apnea and COPD and volume overload. -UF as tolerated with dialysis 5. Anemia: We will order a dose of Epogen Patient evaluated using audiovisual cart. Time spent 45 minutes Consult Attestations Medical Necessity Statement: Per medicine Coding Level of Care Code Acute Code for [facility] F[facility] Diagnoses ESRD (end stage renal disease) N18.6
[2022-07-16] MEDS: epoetin alfa 1000 Unit/0.05 mL (ESRD) 20000 UNIT SUBCUT (20:37)
[2022-07-16 22:03] LABS: Glucose Point of Care 264 mg/dL (70-110)
[2022-07-16] MEDS: nicotine 14 mg Patch 1 PATCH TRANSDERMA (22:09)
[2022-07-17] VITALS (32 sets, daily range): BP systolic 112–173; BP diastolic 55–92; PULSE 63–89; RESP 15–31; TEMP 36.5–36.6; O2SAT 91–99
[2022-07-17] MEDS: heparin 5,000 unit/mL INJ 1 mL 5000 UNIT SUBCUT ×2 (00:01→13:09)
[2022-07-17] MEDS: pantoprazole 40 mg SDV IVP (00:01)
[2022-07-17] MEDS: ipratropium-albuterol 3 mL Neb INHALATION ×6 (00:27→20:42)
[2022-07-17] MEDS: bumetanide 0.25 mg/mL SDV 4 mL 2 MG IVP (02:34)
[2022-07-17 07:33] LABS: Glucose Point of Care 213 mg/dL (70-110)
[2022-07-17] MEDS: budesonide 0.5 mg/2 mL Neb INHALATION ×2 (08:07→20:42)
[2022-07-17] MEDS: hyDRALAzine 50 mg Tablet PO ×2 (08:26→20:50)
[2022-07-17] MEDS: aspirin 81 mg Chew Tablet PO (08:26)
[2022-07-17] MEDS: amiodarone 200 mg Tablet PO (08:26)
[2022-07-17] MEDS: lisinopril 20 mg Tablet PO (08:26)
[2022-07-17] MEDS: metoprolol succinate ER (24 HR) 50 mg Tablet PO ×2 (08:26→17:16)
[2022-07-17] MEDS: insulin lispro 100 unit/1 mL SUBCUT ×4 (08:27→20:51)
[2022-07-17] MEDS: nicotine 14 mg Patch 1 PATCH TRANSDERMA (08:27)
[2022-07-17] MEDS: doxycycline 100 mg Tablet PO (11:15)
[2022-07-17 11:25] LABS: Glucose Point of Care 244 mg/dL (70-110)
--- NOTE | 2022-07-17 12:28 | PM.PN ---
Subjective Subjective: doing well Medications: Reviewed: Yes Vitals/I&O/Wt Last Vital Signs Temp 97.8 F 07/17/22 08:00 Pulse 69 07/17/22 11:33 Resp 16 07/17/22 11:30 BP 151/84 07/17/22 10:00 Pulse Ox 95 07/17/22 11:30 O2 Del Method Room Air 07/17/22 11:30 07/16/22 07/17/22 07/17/22 22:59 06:59 14:59 Intake Total 940 / 1790.726 100 / 1890.726 120 / 120 Output Total 3675 / 4275 300 / 4575 Balance -2735 / -2484.274 -200 / -2684.274 120 / 120 Weight last 48 hrs Weight 104.5 kg Weight 104.326 kg Weight 103.419 kg Physical Exam Narrative: Patient is awake alert, no acute distress, right IJ tunnel catheter, bibasilar crackles per report S1 S2 RRR per report + edema Data 07/16/22 05:40 07/16/22 18:20 Micro: Microbiology 07/16/22 14:10 Gram Stain - Final Sputum - Expectorated Sputum 07/16/22 02:54 Blood Culture - Preliminary Blood NEGATIVE TO DATE 07/16/22 02:58 Blood Culture - Preliminary Blood NEGATIVE TO DATE A&P Assessment and plan (1) ESRD (end stage renal disease): Plan 1. end-stage renal disease: On MWF schedule as outpatient, hd today . 2. Hyperkalemia: Mild, improved 3. Hypertension: Blood pressure elevated, restart home meds 4. Acute on chronic respiratory failure: Multifactorial with history of CHF, sleep apnea and COPD and volume overload. -UF as tolerated with dialysis 5. Anemia: We will order a dose of Epogen Patient evaluated using audiovisual cart. Time spent 45 minutes Attestations Medical Necessity Statement*: per medinine Coding Level of Care Code Acute Code for [facility] Fwd Diagnoses ESRD (end stage renal disease) N18.6
[2022-07-17] MEDS: heparin, porcine 1,000 unit/mL INJ 10 mL 1000 UNIT IV (13:10)
[2022-07-17] MEDS: heparin, porcine 1,000 unit/mL INJ 10 mL 10000 UNIT INTRACATH (13:10)
[2022-07-17 13:36] LABS: ABG PCO2 37.9 mmHg (35-45); ABG PH Result 7.41 (7.35-7.45); Base Excess ABG -0.7 mmol/L (-2.0-2.0); Blood Gas Allen Test Pos; Blood Gas Sample Site Radial, right; Blood Gas Sample Type Arterial; HCO3 ABG 23.9 mmol/L (22-26); Oxygen Device NC; PO2 ABG 59.9 mmHg (80.0-100.0)
--- NOTE | 2022-07-17 14:25 | P.PN_ITS ---
Subjective Subjective: Patient states breathing is improving after getting dialysis yesterday. Still volume overloaded. Plan for another session today. Medications: Reviewed: Yes Vitals/I&O/Wt Last Vital Signs Temp 97.9 F 07/17/22 13:51 Pulse 68 07/17/22 13:51 Resp 26 H 07/17/22 13:51 BP 152/85 07/17/22 13:51 Pulse Ox 99 07/17/22 13:00 O2 Del Method Room Air 07/17/22 13:00 07/16/22 07/17/22 07/17/22 22:59 06:59 14:59 Intake Total 940 / 1790.726 100 / 1890.726 240 / 240 Output Total 3675 / 4275 300 / 4575 Balance -2735 / -2484.274 -200 / -2684.274 240 / 240 Weight last 48 hrs Weight 104.5 kg Weight 104.326 kg Weight 103.419 kg Physical Exam Narrative: General: No acute distress, AO x3 HEENT: PERRLA, pupils bilaterally equal and reactive, pallors not present Chest: Normal vesicular breath sounds, no added sounds, equal good air entry bilaterally CVS: S1-S2 regular, no murmurs, no tachycardia, no gallops, no rubs Abdomen: Soft, nontender, no organomegaly, bowel sounds present Neuro: No focal deficits, no facial deformity, AO x3, power 5/5 in all limbs Extremities: LE pitting edema Data 07/16/22 05:40 07/16/22 18:20 Micro: Microbiology 07/16/22 14:10 Gram Stain - Final Sputum - Expectorated Sputum Sputum Culture - Preliminary 07/16/22 02:54 Blood Culture - Preliminary Blood NEGATIVE TO DATE 07/16/22 02:58 Blood Culture - Preliminary Blood NEGATIVE TO DATE A&P Assessment and plan (1) COPD exacerbation: (2) Acute exacerbation of congestive heart failure: (3) Pneumonia: (4) Fluid overload: (5) Diabetes: Qualifiers: Diabetes mellitus type: type 2 Diabetes mellitus rat exterminator insulin use: with rat exterminator use Diabetes mellitus complication status: with diabetic arthropathy Diabetes mellitus complication detail: with other arthropathy Qualified Code(s): E11.618 - Type 2 diabetes mellitus with other diabetic arthropathy; Z79.4 - [facility] (current) use of insulin (6) Hypertension: Qualifiers: Hypertension type: essential hypertension Qualified Code(s): I10 - Essential (primary) hypertension (7) Hyperlipidemia: Qualifiers: Hyperlipidemia type: mixed hyperlipidemia Qualified Code(s): E78.2 - Mixed hyperlipidemia (8) H/O aortic valve replacement: (9) H/O aortic valve replacement with tissue graft: (10) Leg swelling: (11) SOB (shortness of breath): Plan # Shortness of breath - Suspect that this is mostly related to fluid overload from missing dialysis an d CHF exacerbation # Pneumonia now appearing to be less likely -Chest x-ray shows bibasilar infiltrates, infection versus fluid overload -Clinically appears to be more likely related to fluid overload. 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 Has scattered wheezing today , continue duoneb and budesonide inhalation, add dexamethasone 6mg iv q24h CT of the chest performed on admission does not show any gross consolidation resume home dose of chronic doxycycline suppression # COPD exacerbation -DuoNeb, budesonide Continue dexamethasone -Oxygen therapy # CHF exacerbation,acute on chronic diastolic, with fluid overload -He does urinate, he has been out of Bumex, Bumex 2 mg IV twice daily resume torsemide HD today # End-stage renal disease on dialysis, missed dialysis # History of type 2 diabetes mellitus, a1c 6.4 Continue insulin drip No kentones on blood or urine elevated anion gap and lactate likely 2/2 metabolic acidosis due to missed HD , resolved now after dialysis Planned session today, renal consulted Bilateral leg swelling, likely fluid overload ; no DVT noted Full code Heparin for DVT prophylaxis Attestations Medical Necessity Statement*: Planned dialysis today Coding Level of Care Code Acute Code for [facility] Fwd Diagnoses COPD exacerbation J44.1 Acute exacerbation of congestive heart failure I50.9 Pneumonia J18.9 Fluid overload E87.70 Diabetes E11.618; Z79.4 Diabetes mellitus type: type 2 Diabetes mellitus rat exterminator insulin use: with rat exterminator use Diabetes mellitus complication status: with diabetic arthropathy Diabetes mellitus complication detail: with other arthropathy Hypertension I10 Hypertension type: essential hypertension Hyperlipidemia E78.2 Hyperlipidemia type: mixed hyperlipidemia H/O aortic valve replacement Z95.2 H/O aortic valve replacement with tissue graft Z95.4 Leg swelling M79.89 SOB (shortness of breath) R06.02
[2022-07-17] MEDS: dexamethasone 4 mg/mL INJ 6 MG IVP (16:21)
--- NOTE | 2022-07-17 17:02 | PC.HD ---
Patient c/o hand cramping, which he states is his first indication of becoming dry during dialysis. UF was turned off per patient request. UF goal was 3000; 2272 was removed. Pipeline Superintendent aware. After turning UF off, patient states his hand cramps resolved.
[2022-07-17 17:10] LABS: Glucose Point of Care 142 mg/dL (70-110)
--- NOTE | 2022-07-17 18:25 | PC.NURSE ---
Shift Note Frequent safety and comfort rounds continue. Orders and/or nursing care completed as indicated. Patient monitored for response to intervention and treatment(s). Education provided includes fall risk and call light use, medications at administration, dialysis, fluid restrictions, and importance of pressure ulcer prevention and turning. Patient and/or inbound sales representative verbalized understanding of all teachings. Overall uneventful shift. Patient received dialysis and 2.5L of fluid removed per dialysis nurse. No complications during dialysis. Patient denies pain throughout shift and is currently resting in bed with cellphone, vitals are stable. See charting of vitals.
[2022-07-17 20:48] LABS: Glucose Point of Care 198 mg/dL (70-110)
[2022-07-17] MEDS: TRAMadol 50 mg Tablet PO (20:50)
[2022-07-18] VITALS (12 sets, daily range): PULSE 72–79; RESP 14–31; TEMP 36.7; O2SAT 95–98
[2022-07-18] MEDS: heparin 5,000 unit/mL INJ 1 mL 5000 UNIT SUBCUT (00:40)
[2022-07-18] MEDS: ipratropium-albuterol 3 mL Neb INHALATION ×2 (00:45→07:58)
[2022-07-18] MEDS: TRAMadol 50 mg Tablet PO ×2 (00:51→07:02)
[2022-07-18] MEDS: bumetanide 0.25 mg/mL SDV 4 mL 2 MG IVP (04:25)
[2022-07-18 05:46] LABS: Basophils % 0.1 %; Eosinophils % 0.1 %; Hematocrit 26.8 % (42.0-52.0); Hemoglobin 7.8 g/dL (11.7-16.6); Lymphocytes # 0.9 10^3/uL (0.8-4.8); Mean Corpuscular HGB Conc 29.1 g/dL (30.0-36.0); Mean Corpuscular Hemoglobin 31.3 pg (28.0-34.0); Mean Corpuscular Volume 107.6 fl (80-94); Mean Platelet Volume 9.8 fL (7.4-10.4); Monocytes # 0.7 10^3/uL (0.2-0.9); Monocytes % 7.4 %; Neutrophils # 7.07 10^3/uL (1.8-7.7); Neutrophils % 80.7 %; Nucleated Red Blood Cells % 0.3 %; Platelet Count 214 10^3/cmm (130-400); Red Blood Count 2.49 10^6/uL (4.1-5.3); White Blood Count 8.8 10^3/uL (4.0-10.0)
[2022-07-18 06:04] LABS: Alanine Aminotransferase 41 U/L (0-41); Albumin Level 3.2 g/dL (3.5-5.2); Alkaline Phosphatase 252 U/L (40-130); Anion Gap 21.6 (5-19); Aspartate Amino Transferase 29 U/L (0-40); Blood Urea Nitrogen 34 mg/dL (6-20); Calcium 8.8 mg/dL (8.5-10.5); Carbon Dioxide 21 mmol/L (22-29); Chloride 94 mmol/L (98-107); Glomerular Filtration Rate 12.5 mL/min (90-130); Glucose 297 mg/dL (65-115); Osmolality Calculated 293 mOsm/kg (285-295); Potassium 4.6 mmol/L (3.5-5.1); Sodium 132 mmol/L (136-145); Total Bilirubin 0.4 mg/dL (0.15-1.2); Total Protein 6.2 g/dL (6.6-8.7)
[2022-07-18 07:08] LABS: Glucose Point of Care 390 mg/dL (70-110)
--- NOTE | 2022-07-18 07:45 | PM.PN ---
Subjective Subjective: No new complaints, status post HD yesterday Vitals/I&O/Wt Last Vital Signs Temp 98.1 F 07/18/22 04:00 Pulse 77 07/18/22 06:00 Resp 31 H 07/18/22 05:00 BP 148/78 07/17/22 20:00 Pulse Ox 95 07/18/22 00:00 O2 Del Method Room Air 07/18/22 00:00 07/17/22 07/18/22 07/18/22 22:59 06:59 14:59 Intake Total 2916 / 3156 222 / 3378 Output Total 300 / 300 250 / 550 Balance 2616 / 2856 -28 / 2828 Weight last 48 hrs Weight 102.1 kg Weight 104.5 kg Physical Exam Narrative: Patient awake alert no acute distress S1-S2 regular rhythm per report No edema Data 07/18/22 05:02 07/18/22 05:02 Micro: Microbiology 07/16/22 14:10 Gram Stain - Final Sputum - Expectorated Sputum Sputum Culture - Preliminary 07/16/22 02:54 Blood Culture - Preliminary Blood NEGATIVE TO DATE 07/16/22 02:58 Blood Culture - Preliminary Blood NEGATIVE TO DATE A&P Assessment and plan (1) ESRD (end stage renal disease): Plan 1. end-stage renal disease: On MWF schedule as outpatient, status post HD yesterday 2. Hyperkalemia: Mild, improved 3. Hypertension: Blood pressure elevated, restart home meds 4. Acute on chronic respiratory failure: Multifactorial with history of CHF, sleep apnea and COPD and volume overload. -UF as tolerated with dialysis 5. Anemia: status post a dose of Epogen Patient evaluated using audiovisual cart. Time spent 45 minutes Attestations Medical Necessity Statement*: Per medicine Coding Level of Care Code Acute Code for [facility] Fwd Diagnoses ESRD (end stage renal disease) N18.6
[2022-07-18] MEDS: budesonide 0.5 mg/2 mL Neb INHALATION (07:58)
[2022-07-18] MEDS: pantoprazole DR 40 mg Tablet PO (08:02)
[2022-07-18] MEDS: hyDRALAzine 50 mg Tablet PO (08:02)
[2022-07-18] MEDS: amiodarone 200 mg Tablet PO (08:02)
[2022-07-18] MEDS: doxycycline 100 mg Tablet PO (08:02)
[2022-07-18] MEDS: aspirin 81 mg Chew Tablet PO (08:02)
[2022-07-18] MEDS: lisinopril 20 mg Tablet PO (08:02)
[2022-07-18] MEDS: metoprolol succinate ER (24 HR) 50 mg Tablet PO (08:02)
[2022-07-18] MEDS: insulin lispro 100 unit/1 mL SUBCUT (08:03)
[2022-07-18] MEDS: TORSEmide 20 mg Tablet 100 MG PO (08:03)
--- NOTE | 2022-07-18 08:06 | PM.DCS ---
Discharge Providers Date of Admission: 07/15/22 22:28 Date of Discharge: July 18, 2022 Attending Provider at Admission: Desean Montes MD Attending Provider at Discharge: Beckie Stafford MD Primary Care Provider: Sulma Zavala MD Diagnoses at Discharge Discharge Diagnosis (1) ESRD (end stage renal disease): Status: Acute Reason for Visit Reason for Visit: SOB Hospital Course Hospital Course Richard Huffman is a 61 year old male with a past medical history of atrial fibrillation, not on anticoagulation, end-stage renal disease on hemodialysis, history of aortic valve replacement with tissue graft, history of endocarditis on chronic doxycycline suppression, history of umbilical hernia, hyperlipidemia, hypertension, noninsulin-dependent type 2 diabetes mellitus, being evaluated for a nodular density seen on chest CT, history of emphysema, current smoker, who presented to [facility] due to increased shortness of breath, productive cough, increased lower extremity edema in the setting of having missed dialysis. He was found to have acute pulmonary edema, small right pleural effusion and signs of venous congestion. No consolidation was noted. CT abdomen/pelvis and GB US made note of GB wall fluid and possible colitis however there was no clinical co relate for these findings. PAtient did nt have any abdominal pain,, nausea, vomtiing or diarrhea. He received 2 seessions of HD while inpatient, this improved his respiratory status. he is saturating 97% on RA at time of discharge. He will be resuming his schedule of MWF HD tomorrow . Home doses of diuretcs have been resumed. 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 Currently gets HD via tunneled cath in right chest. NO signs of infection at catheter site. HE has difficulty tolerating inhalers, especially spiriva and requested nebulizer at discharge. this has been ordered for the patient. Physical Exam Narrative: General: No acute distress, AO x3 HEENT: PERRLA, pupils bilaterally equal and reactive, pallors not present Chest: Normal vesicular breath sounds, no added sounds, equal good air entry bilaterally CVS: S1-S2 regular, no murmurs, no tachycardia, no gallops, no rubs Abdomen: Soft, nontender, no organomegaly, bowel sounds present Neuro: No focal deficits, no facial deformity, AO x3, power 5/5 in all limbs Discharge Data Studies Completed and Pending Completed Studies During Hospitalization Category Date Time Status CT angio chest w abd pel w con Routine Cat Scan 07/16/22 00:14 Completed XR chest 1V portable [id number] Stat Exams 07/15/22 22:10 [place] [id number] Routine Ultrasound 07/16/22 00:14 Completed CV. echo complete* [id number] Routine Ultrasound 07/16/22 00:14 Completed US gall bladder [id number] Routine Ultrasound 07/16/22 04:35 Completed Pending at discharge Category Date Time Status Blood Culture Routine Lab 07/16/22 02:54 Results Occult Blood Stool [Immunochemical Fecal OCB] Routine Lab 07/16/22 00:14 Uncollected Sputum Culture and Gram Stain Stat Lab 07/16/22 14:10 Results Radiology Impressions Chest X-Ray 07/15/22 22:10 IMPRESSION: 1. Enlarged cardiac silhouette size with element of mild vascular congestion/fluid overload. 2. Increasing right basilar opacity. See discussion above. Right pleural effusion is probably unchanged. Chest/Abdomen/Pelvis CT 07/16/22 00:14 IMPRESSION: 1. No focal PE. 2. Small right effusion, large heart, and mild venous congestion with other chronic findings above. 3. Likely reactive [id number] mediastinal and hilar lymphadenopathy. Recommend 3 to 6-month follow-up. 4. Large ventral epigastric hernia, see below abdomen/pelvis CT report. IMPRESSION: 1. Extensive gallbladder wall thickening. Advise correlation. This may be due to 3rd spacing of fluid or cholecystitis. 2. Mild left-sided colitis. No small bowel obstruction, abscess or free air. 3. Multiple chronic findings above. Large epigastric bowel hernia. COMMENTS: Consistent with the [employer]'s Incidental Findings Committee white paper (J Am Yony Radiol 2018): Any incidental renal lesion less than 1 cm or classified as too small to characterize, or any incidental cystic renal lesion characterized as simple-appearing, is likely benign. No follow-up imaging is recommended for these lesions per consensus recommendations based on imaging criteria. Gallbladder Ultrasound 07/16/22 04:35 IMPRESSION: 1. Severe gallbladder wall thickening, which is probably due to 3rd spacing of fluid or adjacent liver disease. If pain persists, HIDA scan may be considered. 2. No cholelithiasis or CBD dilation. 3. Large and diseased appearing liver with evidence of pulmonary hypertension. 4. Echogenic right kidney with medical renal disease likely. 5. Very small right pleural effusion. Laboratory Results WBC 8.8 10^3/uL (4.0-10.0) 07/18/22 05:02 RBC 2.49 10^6/uL (4.1-5.3) L 07/18/22 05:02 Hgb 7.8 g/dL (11.7-16.6) L 07/18/22 05:02 Hct 26.8 % (42.0-52.0) L 07/18/22 05:02 MCV 107.6 fl (80-94) H 07/18/22 05:02 MCH 31.3 pg (28.0-34.0) 07/18/22 05:02 MCHC 29.1 g/dL (30.0-36.0) L 07/18/22 05:02 RDW 17.0 % (12.1-15.1) H 07/18/22 05:02 Plt Count 214 10^3/cmm (130-400) 07/18/22 05:02 MPV 9.8 fL (7.4-10.4) 07/18/22 05:02 Neut % (Auto) 80.7 % 07/18/22 05:02 Lymph % (Auto) 10.0 % 07/18/22 05:02 [place] % (Auto) 7.4 % 07/18/22 05:02 Eos % (Auto) 0.1 % 07/18/22 05:02 Baso % (Auto) 0.1 % 07/18/22 05:02 Neut # (Auto) 7.07 10^3/uL (1.8-7.7) 07/18/22 05:02 Lymph # (Auto) 0.9 10^3/uL (0.8-4.8) 07/18/22 05:02 [place] # (Auto) 0.7 10^3/uL (0.2-0.9) 07/18/22 05:02 Eos # (Auto) 0.0 10^3/uL (0.0-0.8) 07/18/22 05:02 Baso # (Auto) 0.0 10^3/uL (0.0-0.1) 07/18/22 05:02 Nucleated RBC % (auto) 0.3 % 07/18/22 05:02 Nucleated RBCs # 0.0 /100WBC 07/18/22 05:02 Specimen Type Arterial 07/16/22 02:40 Sample Site Radial, right 07/16/22 02:40 ABG pH 7.41 (7.35-7.45) 07/16/22 02:40 ABG pCO2 37.9 mmHg (35-45) 07/16/22 02:40 ABG pO2 59.9 mmHg (80.0-100.0) L 07/16/22 02:40 ABG HCO3 23.9 mmol/L (22-26) 07/16/22 02:40 ABG Base Excess -0.7 mmol/L (-2.0-2.0) 07/16/22 02:40 Kash Test Pos 07/16/22 02:40 Hematocrit 27.0 % (42-52) L 07/16/22 02:40 O2 Delivery Device Nc 07/16/22 02:40 O2 Liters/Min 3.0 % 07/16/22 02:40 Territory Account Executive ID [email or web address] 07/16/22 02:40 Sodium 132 mmol/L (136-145) L 07/18/22 05:02 Potassium 4.6 mmol/L (3.5-5.1) 07/18/22 05:02 Chloride 94 mmol/L (98-107) L 07/18/22 05:02 Carbon Dioxide 21 mmol/L (22-29) L 07/18/22 05:02 Anion Gap 21.6 (5-19) H 07/18/22 05:02 BUN 34 mg/dL (6-20) H 07/18/22 05:02 Creatinine 4.8 mg/dL (0.7-1.2) H 07/18/22 05:02 GFR Calculation 12.5 mL/min (90-130) L 07/18/22 05:02 Glucose 297 mg/dL (65-115) H 07/18/22 05:02 POC Glucose 390 mg/dL (70-110) H 07/18/22 07:05 Estimat Average Glucose 137 07/16/22 02:58 Hemoglobin A1c 6.4 % (4.0-6.0) H 07/16/22 02:58 Calculated Osmolality 293 mOsm/kg (285-295) 07/18/22 05:02 Lactic Acid 5.1 mmol/L (0.5-2.2) H* 07/15/22 22:32 Lactic Acid (Sepsis) 4.4 mmol/L (0.5-2.2) H* 07/16/22 02:58 Calcium 8.8 mg/dL (8.5-10.5) 07/18/22 05:02 Phosphorus 5.9 mg/dL (2.5-4.5) H 07/15/22 23:59 Magnesium 2.0 mg/dL (1.7-2.3) 07/15/22 23:59 Iron 70 ug/dL (59-158) 07/16/22 02:58 TIBC 219 mcg/dl 07/16/22 02:58 % Saturation 31.9 % (20-50) 07/16/22 02:58 Unsat Iron Binding 149 ug/dL (112-347) 07/16/22 02:58 Ferritin 2022 ng/mL (30-400) H 07/16/22 02:58 Total Bilirubin 0.4 mg/dL (0.15-1.2) 07/18/22 05:02 AST 29 U/L (0-40) 07/18/22 05:02 ALT 41 U/L (0-41) 07/18/22 05:02 Alkaline Phosphatase 252 U/L (40-130) H 07/18/22 05:02 Troponin T Baseline 162 ng/L (0-15) H* 07/15/22 22:32 Troponin T 120 Minute 149.6 ng/L (0-15) H 07/16/22 00:00 Delta Troponin T -12.4 ABS# (0-10) L 07/16/22 00:00 Troponin T Hi Sens 6Hr 150.5 ng/L (0-15) H 07/16/22 05:40 Troponin T Hi Sens 6Hr Delta -11.5 ng/L (0-12) L 07/16/22 05:40 C-Reactive Protein 46.6 mg/L (0.0-4.9) H 07/15/22 23:59 NT-Pro-B Natriuret Pep 06313 pg/mL (0-125) H 07/15/22 23:59 Total Protein 6.2 g/dL (6.6-8.7) L 07/18/22 05:02 Albumin 3.2 g/dL (3.5-5.2) L 07/18/22 05:02 Globulin 3.0 g/dL (1.3-4.6) 07/18/22 05:02 Vitamin B12 1712 pg/mL (232-1245) H 07/16/22 02:58 Folate 19.9 ng/mL (4.5-32.2) 07/16/22 02:58 Procalcitonin 0.86 ng/mL (0-0.5) H 07/15/22 23:59 TSH 1.49 uIU/mL (0.27-4.20) 07/16/22 02:58 Urine Color Yellow (Yellow) 07/16/22 06:00 Urine Appearance Clear (CLEAR) 07/16/22 06:00 Urine pH 9 (5-7) H 07/16/22 06:00 Ur Specific [place] 1.015 (1.005-1.030) 07/16/22 06:00 Urine Protein 3+ (Negative) H 07/16/22 06:00 Urine Glucose (UA) 4+ (Normal) H 07/16/22 06:00 Urine Ketones Negative (Negative) 07/16/22 06:00 Urine Blood 2+ (Negative) H 07/16/22 06:00 Urine Nitrate Negative (Negative) 07/16/22 06:00 Urine Bilirubin Neg (Negative) 07/16/22 06:00 Prot Sulfosalicylic Acd Positive (Negative) 07/16/22 06:00 Urine Urobilinogen Neg mg/dL (Negative) 07/16/22 06:00 Ur Leukocyte Esterase Negative (Negative) 07/16/22 06:00 Urine RBC 0-4 /hpf (0-2) H 07/16/22 06:00 Urine WBC 0-4 /hpf (0-5) H 07/16/22 06:00 Ur Squamous Epith Cells 0-4 /hpf (0-5) H 07/16/22 06:00 Amorphous Sediment Not Reportable 07/16/22 06:00 Urine Bacteria None /hpf (NONE) 07/16/22 06:00 Nasal Influ A H1 2009 PCR Not detected (NOT DETECT) 07/16/22 00:19 Serum Ketones Negative (Negative) 07/16/22 02:58 Adenovirus (PCR) Not detected (NOT DETECT) 07/16/22 00:19 C. pneumoniae DNA (PCR) Not detected (NOT DETECT) 07/16/22 00:19 Coronavirus 229E (PCR) Not detected (NOT DETECT) 07/16/22 00:19 Hep Bs Antigen Non-reactive (Nonreactive) 07/16/22 13:20 Hep Bs Antibody 57.1 (11.5-1000) 07/16/22 13:20 Hep B Core Total Ab Non-reactive (Nonreactive) 07/16/22 13:20 Human Metapneumovir PCR Not detected (NOT DETECT) 07/16/22 00:19 Influenza A (H1) PCR Not detected (NOT DETECT) 07/16/22 00:19 Influenza A (H3) PCR Not detected (NOT DETECT) 07/16/22 00:19 Influenza Type A (PCR) Not detected (NOT DETECT) 07/16/22 00:19 Influenza Type B (PCR) Not detected (NOT DETECT) 07/16/22 00:19 M. pneumoniae (PCR) Not detected (NOT DETECT) 07/16/22 00:19 Parainfluenza 1 (PCR) Not detected (NOT DETECT) 07/16/22 00:19 Parainfluenza 2 (PCR) Not detected (NOT DETECT) 07/16/22 00:19 Parainfluenza 3 (PCR) Not detected (NOT DETECT) 07/16/22 00:19 Parainfluenza 4 (PCR) Not detected (NOT DETECT) 07/16/22 00:19 RSV Type A (PCR) Not detected (NOT DETECT) 07/16/22 00:19 RSV Type B (PCR) Not detected (NOT DETECT) 07/16/22 00:19 Entero/Rhino (PCR) Not detected (NOT DETECT) 07/16/22 00:19 SARS-CoV-2 (PCR) Not detected (NOT DETECT) 07/16/22 00:19 Vitals Last Vital Signs Temp 98.1 F 07/18/22 04:00 Pulse 76 07/18/22 08:04 Resp 18 07/18/22 07:58 BP 148/78 07/17/22 20:00 Pulse Ox 97 07/18/22 07:58 O2 Del Method Room Air 07/18/22 07:58 Discharge Plan Discharge Patient Disposition: Home Condition: Stable Prescriptions: New budesonide 0.5 mg/2 mL Suspension For Nebulization 0.5 mg inhalation BID 30 Days Qty: 120 2RF ipratropium-albuterol 0.5 mg-3 mg(2.5 mg base)/3 mL Solution For Nebulization 3 ml inhalation Q6H 30 Days Qty: 90 2RF pantoprazole 40 mg Tablet,Delayed Release (Dr/Ec) 40 mg PO DAILY 30 Days Qty: 30 0RF Continued cholecalciferol (vitamin D3) 125 mcg (5,000 unit) capsule 125 mcg PO BID bumetanide 2 mg tablet 2 mg PO BID doxycycline hyclate 100 mg capsule 100 mg PO DAILY hydrocodone-acetaminophen 5-325 mg tablet 1 tab PO BID PRN (Reason: Pain) tramadol 50 mg tablet 50 mg PO Q4H PRN (Reason: Pain) torsemide 100 mg tablet 100 mg PO DAILY hydralazine 50 mg tablet 50 mg PO TID amiodarone 200 mg tablet 200 mg PO DAILY Qty: 30 5RF albuterol sulfate [Ventolin HFA] 90 mcg/actuation HFA aerosol inhaler 1 inh inhalation QID PRN (Reason: shortness of breath or wheezing) Qty: 8.5 3RF metolazone 2.5 mg tablet 5 mg PO DAILY Vitamin B-12 50 mcg Tablet 50 mcg PO DAILY docusate sodium [Stool Softener] 100 mg Capsule 100 mg PO DAILY aspirin 81 mg Tablet,Chewable 81 mg PO DAILY RenaPlex-D 800 mcg-12.5 mg -2,000 unit Tablet 1 tab PO BEDTIME metoprolol succinate 50 mg tablet extended release 24 hr 50 mg PO BID lisinopril 20 mg tablet 20 mg PO DAILY oxycodone-acetaminophen 5-325 mg tablet 1 tab PO Q4H PRN (Reason: Pain) prednisone 20 mg tablet 20 mg PO BID 7 Days Qty: 14 0RF benzonatate 100 mg capsule 100 mg PO TID PRN (Reason: cough) Qty: 14 0RF Discontinued azithromycin 500 mg tablet See Rx Instructions .ROUTE .COMPLEX Qty: 3 0RF Rx Instructions: For 250 mg dose pack: take 500 mg today (day 1), then 250 mg for 4 days (days 2-5) Spiriva Respimat 1.25 mcg/actuation mist 2 puff INHALATION BID Discharge Orders: Discharge Order (Routine); Ordered 07/18/22 Ordered By: Beckie Stafford Other Ambulatory Orders: DME: Nebulizer with Neb Kit (Order) Location: None Selected Ordered By: Beckie Stafford Referrals: Sulma Zavala MD [Primary Care Provider] - Patient Instructions: Opioid Safety Discharge Attestations Time Spent in Discharge Care*: greater than 30 min Quality Metrics Clinical Quality Measures [ No reported AMI, CVA or VTE this stay] Coding Level of Care Code Acute Code for Chg Fwd Diagnoses ESRD (end stage renal disease) N18.6
--- NOTE | 2022-07-18 10:05 | PC.NURSE ---
Pt was taken to vehicle at 0945 with all belongings. All discharge instructions gone over with patient and prescriptions sent to pharmacy.
--- NOTE | 2022-07-18 10:23 | PC.SOCIAL ---
IMM Update pg 2 of IMM Updated and reviewed w/ patient. Copy provided and Copy dated, initialed and placed in chart.
== END 2022-07-18 09:45 | disposition home or self-care (01) | DRG 637 ==
LOC: ER 22:36 → MEDSURG 22:43 → ICU 07-16 05:15
PROVIDERS: Hospitalist; Admitting Provider Family Medicine; Emergency Provider Emergency Medicine; PCP Family Medicine; Visit Provider Student in an Organized Health Care Education/Training Program
DX: E11.10 Type 2 diabetes mellitus with ketoacidosis without coma (principal); I50.33 Acute on chronic diastolic (congestive) heart failure; N18.6 End stage renal disease; I13.2 Hypertensive heart and chronic kidney disease with heart failure and with stage 5 chronic kidney disease, or end stage renal disease; E11.22 Type 2 diabetes mellitus with diabetic chronic kidney disease; Z99.2 Dependence on renal dialysis; E11.618 Type 2 diabetes mellitus with other diabetic arthropathy; E11.51 Type 2 diabetes mellitus with diabetic peripheral angiopathy without gangrene; I48.91 Unspecified atrial fibrillation; Z95.3 Presence of xenogenic heart valve; Z79.2 Long term (current) use of antibiotics; E78.2 Mixed hyperlipidemia; J43.9 Emphysema, unspecified; F17.200 Nicotine dependence, unspecified, uncomplicated; Z79.891 Long term (current) use of opiate analgesic; Z79.51 Long term (current) use of inhaled steroids; Z79.82 Long term (current) use of aspirin; K52.9 Noninfective gastroenteritis and colitis, unspecified; E87.5 Hyperkalemia; E87.70 Fluid overload, unspecified; F17.210 Nicotine dependence, cigarettes, uncomplicated; G47.33 Obstructive sleep apnea (adult) (pediatric)
CPT/HCPCS: 11042; 12345; 36415; 36416; 36600; 71045; 71046; 71275; 74177; 76705; 80048; 80053; 81001; 82009; 82607; 82728; 82746; 82803; 82962; 83036; 83540; 83550; 83605; 83735; 83880; 84100; 84145; 84443; 84484; 85025; 86140; 86705; 86706; 87040; 87070; 87205; 87340; 87486; 87581; 87633; 90935; 93005; 93306; 93970; 94640; 94664; 96365; 96367; 96372; 96374; 96375; 96376; 99284; 99285; C9113; J0612; J1100; J1644; J1815; J2543; J3370; J3490; J7050; J7626; J7799; Q3014; Q4081; Q9967

== ENCOUNTER 2022-07-20 08:11 | Emergency (ER) | payer MEDICARE, SELFPAY ==
[2022-07-20] VITALS (16 sets, daily range): BP systolic 176–210; BP diastolic 85–147; PULSE 79–86; RESP 14–16; TEMP 36.2; O2SAT 91–97; BMI 33.5
--- NOTE | 2022-07-20 08:38 | XRR_ITS ---
PROCEDURE INFORMATION: Exam: XR Lumbosacral Spine Exam date and time: 07/20/2022 9:01 AM Age: 61 years old Clinical indication: Injury or trauma; Fall; Blunt trauma (contusions or hematomas); Additional info: Fall/pain TECHNIQUE: Imaging protocol: Radiologic exam of the lumbosacral spine. Views: 2 or 3 views. COMPARISON: CR XR lumbar spine f/e only [id number] 10/11/2019 3:09 PM FINDINGS: Bones/joints: The lumbar spine maintains a normal lordotic curvature. No spondylolisthesis identified. The vertebral bodies maintain normal height. Loss of intervertebral disc height at L3-L4, L4-L5 and L5-S1 with endplate degenerative changes and vacuum disc phenomenon. Concern for some degree of neural foraminal narrowing at L4-L5 and L5-S1. Soft tissues: Aortic atherosclerotic calcifications noted. XR/XR lumbar spine 2-3V* [id number] IMPRESSION: 1. No vertebral body height loss or traumatic malalignment identified. 2. Multilevel degenerative changes with concern for some degree of neural foraminal narrowing at L4-L5 and L5-S1.
--- NOTE | 2022-07-20 08:38 | XRR_ITS ---
PROCEDURE INFORMATION: Exam: XR Right Shoulder Exam date and time: 07/20/2022 9:01 AM Age: 61 years old Clinical indication: Injury or trauma; Fall; Blunt trauma (contusions or hematomas); Shoulder; Right; Additional info: Fall/pain TECHNIQUE: Imaging protocol: Radiologic exam of the right shoulder. Views: 2 or more views. COMPARISON: CR (CHEST, ) 07/15/2022 10:21 PM FINDINGS: Bones/joints: The glenohumeral and acromioclavicular joints are normally aligned. No acute fracture is seen. Lungs: Visualized portions of the chest are normal. Soft tissues: Unremarkable. XR/XR shoulder RT min 2V* [id number] IMPRESSION: No evidence of acute fracture or dislocation.
--- NOTE | 2022-07-20 08:40 | ED_ITS ---
HPI - Fall General: Chief Complaint: Fall Stated Complaint: fall, Lower back pain in R shoulder Time Seen by Provider: 07/20/22 08:13 Source: patient and family Mode of arrival: ambulatory Limitations: no limitations History of Present Illness: Patient is a 61-year-old male who presents to ED today for evaluation following a fall. Patient states he was walking when his legs got tangled up in his w alker causing him to fall. Patient states he injured his lower back which she chronically has pain in and has some complaints of some right shoulder pain. He has been ambulatory since the fall. Denies striking his head or LOC. Patient states he was getting ready for dialysis which he is scheduled to receive today. Blood pressure upon arrival is significantly elevated. He states he has not ta zev any of his home blood pressure medications this morning. Also requesting breathing treatment as he chronically does nebulizers at home and has not done one this morning. MD complaint: fall Onset (ago): hour(s) Fall from: standing Fall witnessed: no Place fall occurred: home Loss of consciousness: None Prolonged down time: no Symptoms prior to fall: none Context: tripped/slipped Location of injury: back Location of injury - extremities: Right: shoulder Associated symptoms-after fall: Reports no associated symptoms; Denies abdominal pain, chest pain, headache(s) or neck pain Review of Systems Const: Denies: fever(s) Eyes: Denies: change in vision or blurry vision Card: Reports: dyspnea on exertion (chronic); Denies: chest pain, palpitations, syncope or pre-syncope Resp: Reports: dyspnea (chronic-at baseline); Denies: wheezing, pain on inspiration, hemoptysis or chest congestion GI: Denies: abdominal pain : Denies: flank pain Musc: Reports: back pain and joint pain (R shoulder); Denies: neck pain, extremity pain, extremity swelling, joint swelling, joint redness or joint warmth Neuro: Denies: headache(s), numbness in extremities, weakness in extremities or sensory changes [facility] ED PFSH: Medical History Atrial flutter Chronic kidney disease Diabetes DJD (degenerative joint disease) 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 Hyperlipidemia Hypertension Intermittent palpitations XI (obstructive sleep apnea) PVD (peripheral vascular disease) Surgical History H/O aortic valve replacement H/O aortic valve replacement with tissue graft H/O foot surgery Family History Grandmother Diabetes Grandfather Diabetes Denies family history of CAD (coronary artery disease) Clotting disorder Dementia Chronic kidney disease (CKD) Suicide Anesthesia complication Bleeding disorder Lung disease Cancer Stroke Social History Smoking and tobacco status: current every day smoker cigarettes Packs smoked per day: 1.25 Years cigarettes smoked: 46 Alcohol intake: never Substance/Drug Use: never Lives independently: Yes (with girlfriend) Household members: significant other Marital status: Single service: No 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al status: disabled 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 Pets and animals: Yes Physical Exam Const: COMMON NORMALS: patient oriented x3, no limitations, alert and well nourished GENERAL APPEARANCE: cooperative and other (appears chronically ill) ORIENTATION/CONSCIOUSNESS: Yes awake, Yes oriented to person, Yes oriented to place and Yes oriented to time HENMT: COMMON NORMALS: normocephalic, atraumatic and TM's normal bilaterally HEAD & SCALP: normal to inspection, normocephalic and atraumatic FACE & SINUS: normal facial exam TYMPANIC MEMBRANE: TM's normal bilaterally MOUTH: other (no intraoral injuries noted) Eye: COMMON NORMALS: Equal, round and reactive pupils present and EOMs intact bilaterally GENERAL EYE: appearance normal, both eyes and all related struc tures and normal light reflex PUPIL: Yes Equal, round and reactive pupils present DIRECT OPHTHALMOSCOPY: Yes normal light reflex Neck/C-Spine: COMMON NORMALS: full ROM GENERAL: Yes normal visual inspection CERVICAL SPINE: Yes cervical ROM normal, No pain with cervical ROM, No Cervical spine tenderness, No step off deformity and No Paracervical muscle tenderness Chest: COMMONS NORMALS: normal inspection of the chest and normal palpation of entire chest wall Resp: COMMON NORMALS: normal respiratory effort and clear to auscultation bilaterally AUSCULTATION: clear to auscultation bilaterally Cardio: COMMON NORMALS: regular rate and regular rhythm RATE: regular rate RHYTHM: regular rhythm GI: COMMON NORMALS: Normal to inspection, nondistended, normoactive bowel sounds present, Soft to palpation, non-tender and No hepatosplenomegaly present INSPECTION: No abdominal wall ecchymosis and Yes other (large ventr al/epigastric hernia present-easily reducible ) AUSCULTATION: Yes normoactive bowel sounds PALPATION: Yes Soft to palpation and Yes No hepatosplenomegaly present Back/Pelvis: THORACIC SPINE/UPPER BACK: Yes normal to inspection, No thoracic spinal tenderness and No paraspinal muscle tenderness LUMBAR SPINE/LOWER BACK: Yes normal to inspection, Yes ROM limited, Yes lumbar spinal tenderness, No paraspinal muscle tenderness and No paraspinal muscle spasm PELVIS: Yes buttocks normal and No sciatic notch tenderness SACROILIAC JOINTS: Yes SI joints normal SACRUM: no tenderness COCCYX: no tenderness Extremity: COMMON NORMALS: normal to inspection, capillary refill normal, no joint enlargement and no clubbing, cyanosis or edema GENERAL: Yes normal exam except as noted RIGHT UPPER EXTREMITY: Yes shoulder joint (TTP R shoulder; no bony deformities noted) Right shoulder: Yes Right shoulder joint ROM exam (slightly limited with full flexion/abduction) and Yes Right shoulder joint neurovascular exam (normal) Neuro: KELI COMA SCALE: document GCS findings Meherrin coma scale eye opening: Spontaneous Meherrin coma scale verbal response: Orientated Keli coma scale motor response: Obey commands Meherrin coma scale total score: 15 COMMON NORMALS: patient oriented x3, moves all extremities, no focal motor deficits, no sensory deficits noted and gait normal SENSORIUM/ORIENTATION: Yes alert, Yes oriented to person, Yes oriented to place and Yes oriented to time SPEECH: speech normal GAIT: Yes Normal gait present Skin: NARRATIVE SKIN EXAM: old ecchymosis to abdomen from subq injections; ecchymosis throughout R UE from previous venipunctures TRAUMA: no lacerations or abrasions Course Vital Signs: Vital signs: Vital Signs Temperature 97.1 F L 07/20/22 08:26 Pulse Rate 86 07/20/22 10:15 Respiratory Rate 14 07/20/22 10:44 Blood Pressure 199/116 07/20/22 11:45 Pulse Oximetry 94 07/20/22 11:40 Oxygen Delivery Me thod Room Air 07/20/22 10:07 MDM - Fall Medical Decision Making XRs negative. He chronically takes opiates that he can continue for his back and shoulder discomfort. Patient denies any other injury sustained during the fall. He arrived to the ED significantly hypertensive. He states he takes multiple hypertensive medications and did not take any of them this morning. These were ordered for him here as well as IM hydralazine. Blood pressure 176/85 upon my last re-examination. He is scheduled for his dialysis at 1230 so will be allowed DC at this time. Lab Data Radiology Impressions Lumbar Spine X-Ray 07/20/22 08:38 IMPRESSION: 1. No vertebral body height loss or traumatic malalignment identified. 2. Multilevel degenerative changes with concern for some degree of neural foraminal narrowing at L4-L5 and L5-S1. Shoulder X-Ray 07/20/22 08:38 IMPRESSION: No evidence of acute fracture or dislocation. Discharge Plan Discharge Patient Disposition: Home Clinical Impression: Fall on same level from tripping, Acute exacerbation of chronic low back pain, Chronic hypertension Injury of right shoulder Qualifiers: Encounter type: initial encounter Qualified Code(s): S49.91XA - Unspecified i njury of right shoulder and upper arm, initial encounter Condition: Stable Prescriptions: No Action cholecalciferol (vitamin D3) 125 mcg (5,000 unit) capsule 125 mcg PO BID bumetanide 2 mg tablet 2 mg PO BID doxycycline hyclate 100 mg capsule 100 mg PO DAILY hydrocodone-acetaminophen 5-325 mg tablet 1 tab PO BID PRN (Reason: Pain) tramadol 50 mg tablet 50 mg PO Q4H PRN (Reason: Pain) torsemide 100 mg tablet 100 mg PO DAILY hydralazine 50 mg tablet 50 mg PO TID amiodarone 200 mg tablet 200 mg PO DAILY Qty: 30 5RF albuterol sulfate [Ventolin HFA] 90 mcg/actuation HFA aerosol inhaler 1 inh inhalation QID PRN (Reason: shortness of breath or wheezing) Qty: 8.5 3RF metolazone 2.5 mg tablet 5 mg PO DAILY Vitamin B-12 50 mcg Tablet 50 mcg PO DAILY docusate sodium [Stool Softener] 100 mg Capsule 100 mg PO DAILY aspirin 81 mg Tablet,Chewable 81 mg PO DAILY RenaPlex-D 800 mcg-12.5 mg -2,000 unit Tablet 1 tab PO BEDTIME metoprolol succinate 50 mg tablet extended release 24 hr 50 mg PO BID lisinopril 20 mg tablet 20 mg PO DAILY oxycodone-acetaminophen 5-325 mg tablet 1 tab PO Q4H PRN (Reason: Pain) prednisone 20 mg tablet 20 mg PO BID 7 Days Qty: 14 0RF benzonatate 100 mg capsule 100 mg PO TID PRN (Reason: cough) Qty: 14 0RF ipratropium-albuterol 0.5 mg-3 mg(2.5 mg base)/3 mL Solution For Nebulization 3 ml inhalation Q6H 30 Days Qty: 90 2RF pantoprazole 40 mg Tablet,Delayed Release (Dr/Ec) 40 mg PO DAILY 30 Days Qty: 30 0RF budesonide 0.5 mg/2 mL Suspension For Nebulization 0.5 mg inhalation BID 30 Days Qty: 120 2RF Discharge Orders: Discharge ED (Routine); Ordered 07/20/22 Ordered By: Bonnie Bah Referrals: Sulma Zavala MD [Primary Care Provider] - Activity Restrictions/Additional Instructions: You may use your already scheduled pain medication as needed for pain to your back and shoulder. Make sure you attend your dialysis appointment at 1230 today. You may follow-up with primary care in approximately 1 week for reevaluation of your shoulder and back discomforts if you feel they are not improving. Coding Level of Care Code ED Tele Marketing Executive for Lillian Anne
[2022-07-20] MEDS: metoprolol succinate ER (24 HR) 50 mg Tablet PO (09:19)
[2022-07-20] MEDS: hyDRALAzine 25 mg Tablet 50 MG PO (09:19)
[2022-07-20] MEDS: ipratropium-albuterol 3 mL Neb INHALATION (10:06)
[2022-07-20] MEDS: lisinopril 20 mg Tablet PO (10:20)
[2022-07-20] MEDS: fentaNYL 50 mcg/mL INJ 2mL XX (10:44)
[2022-07-20] MEDS: hyDRALAzine 20 mg/mL INJ 1 mL 10 MG IM (11:26)
== END 2022-07-20 11:44 | disposition home or self-care (01) ==
PROVIDERS: Emergency Provider Physician Assistant; PCP Family Medicine
DX: G89.29 Other chronic pain (principal); M54.50 Low back pain, unspecified; S49.91XA Unspecified injury of right shoulder and upper arm, initial encounter; Z79.82 Long term (current) use of aspirin; F17.210 Nicotine dependence, cigarettes, uncomplicated; I12.9 Hypertensive chronic kidney disease with stage 1 through stage 4 chronic kidney disease, or unspecified chronic kidney disease; E11.22 Type 2 diabetes mellitus with diabetic chronic kidney disease; N18.9 Chronic kidney disease, unspecified; E78.5 Hyperlipidemia, unspecified; W01.0XXA Fall on same level from slipping, tripping and stumbling without subsequent striking against object, initial encounter
CPT/HCPCS: 72100; 73030; 94640; 96372; 99284; J0360; J3010

== ENCOUNTER → 2022-07-22 11:06 | Outpatient (BNVA) | payer MEDICARE, SELFPAY | PROVIDERS: PCP Family Medicine; Visit Provider Thoracic Surgery (Cardiothoracic Vascular Surgery) | DX: E11.621 Type 2 diabetes mellitus with foot ulcer (principal); L97.411 Non-pressure chronic ulcer of right heel and midfoot limited to breakdown of skin | CPT/HCPCS: 11042 ==

== ENCOUNTER → 2022-07-28 13:28 | Outpatient (BNVA) | payer MEDICARE, SELFPAY | PROVIDERS: PCP Family Medicine; Visit Provider Internal Medicine Pulmonary Disease | DX: R91.1 Solitary pulmonary nodule (principal); R06.02 Shortness of breath; F17.210 Nicotine dependence, cigarettes, uncomplicated | CPT/HCPCS: 99214 ==

== ENCOUNTER → 2022-07-29 10:40 | Outpatient (BNVA) | payer MEDICARE, SELFPAY | PROVIDERS: PCP Family Medicine; Visit Provider Thoracic Surgery (Cardiothoracic Vascular Surgery) | DX: E11.621 Type 2 diabetes mellitus with foot ulcer (principal); I96 Gangrene, not elsewhere classified; L97.411 Non-pressure chronic ulcer of right heel and midfoot limited to breakdown of skin | CPT/HCPCS: 11042 ==

== ENCOUNTER → 2022-08-05 10:53 | Outpatient (BNVA) | payer MEDICARE, SELFPAY | PROVIDERS: PCP Family Medicine; Visit Provider Thoracic Surgery (Cardiothoracic Vascular Surgery) | DX: E11.621 Type 2 diabetes mellitus with foot ulcer (principal); I96 Gangrene, not elsewhere classified; L97.411 Non-pressure chronic ulcer of right heel and midfoot limited to breakdown of skin | CPT/HCPCS: 97597; A6250 ==

== ENCOUNTER → 2022-08-12 10:43 | Outpatient (BNVA) | payer MEDICARE, SELFPAY | PROVIDERS: PCP Family Medicine; Visit Provider Thoracic Surgery (Cardiothoracic Vascular Surgery) | DX: I96 Gangrene, not elsewhere classified (principal); E11.621 Type 2 diabetes mellitus with foot ulcer; L97.412 Non-pressure chronic ulcer of right heel and midfoot with fat layer exposed | CPT/HCPCS: 11042; A6250 ==

== ENCOUNTER → 2022-08-19 11:03 | Outpatient (BNVA) | payer MEDICARE, SELFPAY | PROVIDERS: PCP Family Medicine; Visit Provider Thoracic Surgery (Cardiothoracic Vascular Surgery) | DX: I96 Gangrene, not elsewhere classified (principal); E11.621 Type 2 diabetes mellitus with foot ulcer; L97.412 Non-pressure chronic ulcer of right heel and midfoot with fat layer exposed | CPT/HCPCS: 11042; A6250 ==

== ENCOUNTER 2022-08-21 15:37 | Emergency (ER) | payer MEDICARE, SELFPAY ==
[2022-08-21 15:45] VITALS: BP 109/57; PULSE 70; RESP 18; TEMP 36.5; O2SAT 94
[2022-08-21] MEDS: sodium chloride 0.9% 1,000 ML 999 ML IV (15:58)
[2022-08-21 16:02] LABS: Basophils # 0.1 10^3/uL (0.0-0.1); Eosinophils # 0.2 10^3/uL (0.0-0.8); Eosinophils % 2.4 %; Hematocrit 24.2 % (42.0-52.0); Hemoglobin 7.4 g/dL (11.7-16.6); Lymphocytes # 1.9 10^3/uL (0.8-4.8); Lymphocytes % 19.4 %; Mean Corpuscular HGB Conc 30.6 g/dL (30.0-36.0); Mean Corpuscular Hemoglobin 31.6 pg (28.0-34.0); Mean Corpuscular Volume 103.4 fl (80-94); Mean Platelet Volume 9.7 fL (7.4-10.4); Monocytes # 0.9 10^3/uL (0.2-0.9); Monocytes % 9.6 %; Neutrophils # 6.45 10^3/uL (1.8-7.7); Neutrophils % 66.4 %; Nucleated Red Blood Cells % 0 %; Platelet Count 196 10^3/cmm (130-400); Red Blood Count 2.34 10^6/uL (4.1-5.3); Red Cell Distribution Width 16.9 % (12.1-15.1); White Blood Count 9.7 10^3/uL (4.0-10.0)
[2022-08-21 16:20] LABS: Blood Urea Nitrogen 16 mg/dL (8-23); Calcium 8.6 mg/dL (8.5-10.5); Carbon Dioxide 35 mmol/L (22-29); Chloride 93 mmol/L (98-107); Glomerular Filtration Rate 21.5 mL/min (90-130); Glucose 114 mg/dL (65-115); Osmolality Calculated 284 mOsm/kg (285-295); Sodium 136 mmol/L (136-145)
--- NOTE | 2022-08-21 16:43 | ECG_ITS ---
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 Measurements Intervals [place] Rate: 66 P: 68 ID: [id number] QRS: -41 QRSD: 162 T: 40 QT: 493 QTc: 519 Interpretive Statements SINUS RHYTHM LEFT AXIS DEVIATION [QRS AXIS < -30] RIGHT BUNDLE BRANCH BLOCK [120+ ms QRS DURATION, UPRIGHT V1, 40+ ms S IN I/aVL/V4/V5/V6] LEFT VENTRICULAR HYPERTROPHY AND ST-T CHANGE [VOLTAGE CRITERIA PLUS ST/T ABNORMALITY] POSSIBLE SEPTAL MYOCARDIAL INFARCTION , PROBABLY OLD [30 ms Q WAVE IN V1/V2] Compared to ECG 07/16/2022 04:15:58 ST (T wave) deviation now present T-wave abnormality no longer present Possible ischemia no longer present Myocardial infarct finding still present Electronically Signed On 08-21-2022 18:31:47 CDT by Shayan Stout M.D. [id number]
[2022-08-21 16:44] VITALS: BP 122/55; PULSE 66; RESP 24; O2SAT 97
--- NOTE | 2022-08-21 16:48 | W.ED.GENADLT ---
HPI - General Adult General: Chief complaint: General Medical Stated complaint: hypotension Time Seen by Provider: 08/21/22 15:38 Source: patient Mode of arrival: EMS History of Present Illness: 62-year-old male presents emergency room complaining of low blood pressure and weakness dizziness. Patient has end-stage renal disease and is on hemodialysis. He was having a dialysis run got lightheaded and dizzy and felt very woozy his blood pressure dipped into the 80s systolic range he was transferred to the emergency room. He has been anemic lately with hemoglobin as low as 7 to recently he has required transfusion in the past. He denies any chest pain or shortness of breath no hematochezia melena hematemesis coffee-ground emesis Onset (ago): minute(s) Relieving factors: rest Associated symptoms: Reports malaise; Deny chest pain, confusion, cough, diaphoresis, decreased appetite, dyspnea, fevers/chills, headache(s), nausea, palpitations, seizures, short of breath, syncope, vomiting or weakness Review of Systems Const: Reports: fatigue and malaise; Denies: fever(s), chills or diaphoresis ENMT: Denies: throat pain, ear or mastoid pain, nasal discharge or nasal congestion Card: Denies: chest pain, palpitations or syncope Resp: Denies: dyspnea GI: Denies: abdominal pain, nausea or vomiting : Denies: flank pain, dysuria, urinary frequency or urinary urgency Skin/Breast: Reports: sores (Chronic leg ulcers) Neuro: Denies: headache(s) or confusion PFS ED PFSH: Medical History Atrial flutter Chronic kidney disease Diabetes DJD (degenerative joint disease) 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 Hyperlipidemia Hypertension Intermittent palpitations XI (obstructive sleep apnea) PVD (peripheral vascular disease) Surgical History H/O aortic valve replacement H/O aortic valve replacement with tissue graft H/O foot surgery Family History Grandmother Diabetes Grandfather Diabetes Denies family history of CAD (coronary artery disease) Clotting disorder Dementia Chronic kidney disease (CKD) Suicide Anesthesia complication Bleeding disorder Lung disease Cancer Stroke Social History Smoking and tobacco status: current every day smoker cigarettes Packs smoked per day: 1.25 Years cigarettes smoked: 46 Alcohol intake: never Substance/Drug Use: never Lives independently: Yes (with girlfriend) Household members: significant other Marital status: Single service: No 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al status: disabled 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 Pets and animals: Yes Physical Exam Const: GENERAL APPEARANCE: cooperative and comfortable ORIENTATION/CONSCIOUSNESS: Yes awake, Yes oriented to person, Yes oriented to place and Yes oriented to time HENMT: COMMON NORMALS: normocephalic, atraumatic and hearing grossly normal bilaterally HEAD & SCALP: normocephalic and atraumatic Resp: COMMON NORMALS: normal respiratory effort, No retractions, No use of accessory muscles and clear to auscultation bilaterally AUSCULTATION: clear to auscultation bilaterally Cardio: COMMON NORMALS: regular rate, regular rhythm and No murmurs present (Cardio) RATE: regular rate RHYTHM: regular rhythm GI: COMMON NORMALS: Soft to palpation and No hepatosplenomegaly present AUSCULTATION: Yes normoactive bowel sounds PALPATION: Yes Soft to palpation, No Tenderness to palpation present (GI), No Guarding due to palpation present (GI) and Yes No hepatosplenomegaly present Extremity: COMMON NORMALS: normal to inspection, capillary refill normal, no clubbing, cyanosis or edema, no calf tenderness and no pedal edema Neuro: SENSORIUM/ORIENTATION: Yes oriented to person, Yes oriented to place and Yes oriented to time Skin: COMMON NORMALS: no rashes or lesions noted GENERAL SKIN EXAM: no rashes or lesions noted Course Vital Signs: Vital signs: Vital Signs Temperature 97.7 F 08/21/22 15:45 Pulse Rate 70 08/21/22 15:45 Respiratory Rate 18 08/21/22 15:45 Blood Pressure 109/57 08/21/22 15:45 Pulse Oximetry 94 08/21/22 15:45 Oxygen Delivery Me thod Room Air 08/21/22 15:45 MDM - General Adult Medical Decision Making Hypotension improved with fluids. Patient has been chronically anemic he states his hemoglobin most recently was 7 to be slightly up today at 7 4 he is feeling much better after the fluids. We will discharge the patient home and schedule him to return to outpatient GI lab tomorrow for transfusion of a unit of blood. Return if he has further problems. Medical Records I reviewed the patient's medical records. Lab Data I reviewed the patient's lab results. 08/21/22 15:27 08/21/22 15: Laboratory Results WBC 9.7 10^3/uL (4.0-10.0) 08/21/22 15: RBC 2.34 10^6/uL (4.1-5.3) L 08/21/22 15:27 Hgb 7.4 g/dL (11.7-16.6) L 08/21/22 15: Hct 24.2 % (42.0-52.0) L 08/21/22 15: MCV 103.4 fl (80-94) H 08/21/22 15: MCH 31.6 pg (28.0-34.0) 08/21/22 15: MCHC 30.6 g/dL (30.0-36.0) 08/21/22 15: RDW 16.9 % (12.1-15.1) H 08/21/22 15: Plt Count 196 10^3/cmm (130-400) 08/21/22 15: MPV 9.7 fL (7.4-10.4) 08/21/22 15: Neut % (Auto) 66.4 % 08/21/22 15:27 Lymph % (Auto) 19.4 % 08/21/22 15:27 [place] % (Auto) 9.6 % 08/21/22 15:27 Eos % (Auto) 2.4 % 08/21/22 15:27 Baso % (Auto) 1.0 % 08/21/22:27 Neut # (Auto) 6.45 10^3/uL (1.8-7.7) 08/21/22 15: Lymph # (Auto) 1.9 10^3/uL (0.8-4.8) 08/21/22 15:27 [place] # (Auto) 0.9 10^3/uL (0.2-0.9) 08/21/22 15:27 Eos # (Auto) 0.2 10^3/uL (0.0-0.8) 08/21/22 15:27 Baso # (Auto) 0.1 10^3/uL (0.0-0.1) 08/21/22 15:27 Nucleated RBC % (auto) 0 % 08/21/22 15:27 Nucleated RBCs # 0.0 /100WBC 08/21/22 15:27 Sodium 136 mmol/L (136-145) 08/21/22 15:27 Potassium 4.0 mmol/L (3.5-5.1) 08/21/22 15:27 Chloride 93 mmol/L (98-107) L 08/21/22 15:27 Carbon Dioxide 35 mmol/L (22-29) H 08/21/22 15:27 Anion Gap 12.0 (5-19) 08/21/22 15:27 BUN 16 mg/dL (8-23) 08/21/22 15:27 Creatinine 3.0 mg/dL (0.7-1.2) H 08/21/22 15:27 GFR Calculation 21.5 mL/min (90-130) L 08/21/22 15:27 Glucose 114 mg/dL (65-115) 08/21/22 15:27 Calculated Osmolality 284 mOsm/kg (285-295) L 08/21/22 15:27 Calcium 8.6 mg/dL (8.5-10.5) 08/21/22 15:27 Discharge Plan Discharge Patient Disposition: Home Clinical Impression: Hypotension, ESRD (end stage renal disease), Anemia Condition: Stable Prescriptions: No Action cholecalciferol (vitamin D3) 125 mcg (5,000 unit) capsule 125 mcg PO BID bumetanide 2 mg tablet 2 mg PO BID doxycycline hyclate 100 mg capsule 100 mg PO DAILY hydrocodone-acetaminophen 5-325 mg tablet 1 tab PO BID PRN (Reason: Pain) tramadol 50 mg tablet 50 mg PO Q4H PRN (Reason: Pain) torsemide 100 mg tablet 100 mg PO DAILY hydralazine 50 mg tablet 50 mg PO TID amiodarone 200 mg tablet 200 mg PO DAILY Qty: 30 5RF albuterol sulfate [Ventolin HFA] 90 mcg/actuation HFA aerosol inhaler 1 inh inhalation QID PRN (Reason: shortness of breath or wheezing) Qty: 8.5 3RF metolazone 2.5 mg tablet 5 mg PO DAILY formoterol fumarate [Perforomist] 20 mcg/2 mL solution for nebulization 2 ml inhalation BID Qty: 120 6RF Vitamin B-12 50 mcg Tablet 50 mcg PO DAILY docusate sodium [Stool Softener] 100 mg Capsule 100 mg PO DAILY aspirin 81 mg Tablet,Chewable 81 mg PO DAILY RenaPlex-D 800 mcg-12.5 mg -2,000 unit Tablet 1 tab PO BEDTIME metoprolol succinate 50 mg tablet extended release 24 hr 50 mg PO BID lisinopril 20 mg tablet 20 mg PO DAILY oxycodone-acetaminophen 5-325 mg tablet 1 tab PO Q4H PRN (Reason: Pain) ipratropium-albuterol 0.5 mg-3 mg(2.5 mg base)/3 mL Solution For Nebulization 3 ml inhalation Q6H 30 Days Qty: 90 2RF budesonide 0.5 mg/2 mL Suspension For Nebulization 0.5 mg inhalation BID 30 Days Qty: 120 2RF Discharge Orders: Discharge ED (Routine); Ordered 08/21/22 Ordered By: Lauro Srivastava Referrals: Sulma Zavala MD [Primary Care Provider] - Patient Instructions: Opioid Safety, Pain Management Activity Restrictions/Additional Instructions: You were seen today for lightheaded and dizziness with fluids your symptoms improved. You are anemic as well. Return to the outpatient GI lab tomorrow for transfusion of a unit of blood. Coding Level of Care Code ED Chemistry Technologist for Lillian Anne
[2022-08-21 16:56] VITALS: BP 110/64; BP 119/56; BP 134/51; PULSE 67; PULSE 70
[2022-08-21 17:00] VITALS: BP 110/64; PULSE 66; RESP 28; O2SAT 97
[2022-08-21 17:45] VITALS: BP 111/53; PULSE 68; O2SAT 98
== END 2022-08-21 17:47 | disposition home or self-care (01) ==
PROVIDERS: Emergency Provider Family Medicine; PCP Family Medicine
DX: I95.9 Hypotension, unspecified (principal); E11.22 Type 2 diabetes mellitus with diabetic chronic kidney disease; I12.0 Hypertensive chronic kidney disease with stage 5 chronic kidney disease or end stage renal disease; N18.6 End stage renal disease; D64.9 Anemia, unspecified; E78.5 Hyperlipidemia, unspecified; F17.210 Nicotine dependence, cigarettes, uncomplicated; Z79.82 Long term (current) use of aspirin
CPT/HCPCS: 36415; 80048; 85025; 86850; 86900; 93005; 96360; 96361; 99284; J7030

== ENCOUNTER 2022-08-24 15:55 | Inpatient (IN) | payer MEDICARE, SELFPAY ==
[2022-08-24] VITALS (14 sets, daily range): BP systolic 112–141; BP diastolic 53–83; PULSE 73–99; RESP 16–18; TEMP 37.2–39.3; O2SAT 87–99
--- NOTE | 2022-08-24 16:14 | W.ED.RECABL ---
HPI - Recheck/Abnormal Lab/Rx General: Chief Complaint: Recheck/Abnormal Lab/Rx Stated Complaint: low hemoglobin Time Seen by Provider: 08/24/22 16:14 History of Present Illness: This 62-year-old male with a history of end-stage renal disease, atrial flutter, hyperlipidemia and hypertension presents to the ER for evaluation of weakness, and shivers that started on Wednesday (2 days ago). Review of records show that patient was seen here 3 days ago with weakness, dizziness and low blood pressure following hemodialysis that day. His hemoglobin was around 7. Patient was subsequently discharged home after fluid administration. He notes that he has not been feeling well since then. He had hemodialysis today which was cut short by an hour because of the way he was feeling. So, he was sent to the ER to be reevaluated. Patient notes that he feels chills but his temperature was 99 at dialysis. 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 Hyperlipidemia Hypertension Intermittent palpitations XI (obstructive sleep apnea) PVD (peripheral vascular disease) Surgical History H/O aortic valve replacement H/O aortic valve replacement with tissue graft H/O foot surgery Family History Grandmother Diabetes Grandfather Diabetes Denies family history of CAD (coronary artery disease) Clotting disorder Dementia Chronic kidney disease (CKD) Suicide Anesthesia complication Bleeding disorder Lung disease Cancer Stroke Social History Smoking and tobacco status: current every day smoker cigarettes Packs smoked per day: 1.25 Years cigarettes smoked: 46 Alcohol intake: never Substance/Drug Use: never Lives independently: Yes (with girlfriend) Household members: significant other Marital status: Single service: No 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al status: disabled 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 Pets and animals: Yes Physical Exam Const: COMMON NORMALS: no acute distress, patient oriented x3, no limitations and alert GENERAL APPEARANCE: ill appearing NUTRITIONAL APPEARANCE: obese HENMT: COMMON NORMALS: normocephalic HEAD & SCALP: normocephalic Eye: COMMON NORMALS: EOMs intact bilaterally Neck/C-Spine: COMMON NORMALS: full ROM and supple Chest: OTHER: Healed mid sternotomy scar from previous heart surgery. Surgical hernia in the epigastric area. Presence of dialysis catheter right anterior chest wall. Resp: COMMON NORMALS: normal respiratory effort, No retractions, No use of accessory muscles and clear to auscultation bilaterally AUSCULTATION: clear to auscultation bilaterally Cardio: COMMON NORMALS: regular rate, regular rhythm and No murmurs present (Cardio) RATE: regular rate RHYTHM: regular rhythm GI: COMMON NORMALS: Normal to inspection, nondistended, normoactive bowel sounds present and non-tender : COMMON NORMALS: Yes no CVA tenderness BLADDER/KIDNEY EXAM: Yes no CVA tenderness Back/Pelvis: COMMON NORMALS: no CVA tenderness and no thoracic nor lumbar tenderness Extremity: OTHER: Hyperpigmentation of chronic venous stasis in both lower extremities. Bilateral pitting pedal edema. Neuro: COMMON NORMALS: patient oriented x3 and no focal motor deficits SENSORIUM/ORIENTATION: Yes alert Psych: COMMON NORMALS: mental status grossly normal and cooperative Course Vital Signs: Vital signs: Vital Signs Temperature 102.7 F H 08/24/22 21:51 Pulse Rate 99 08/24/22 21:51 Respiratory Rate 17 08/24/22 21:51 Blood Pressure 133/68 08/24/22 21:51 Pulse Oximetry 95 08/24/22 21:51 Oxygen Delivery Me thod Nasal Cannula 08/24/22 21:52 Oxygen Flow Rate 2 08/24/22 21:51 MDM - Recheck/Abnormal Lab/Rx Medical Decision Making Medical decision making: Patient presents with chills, weakness and feeling unwell. Work-up reveals elevated white count of 19,000 with hemoglobin of 7.2 and normal platelet count. Chest x-ray and blood cultures taken. White count 3 days ago was 9.7. This is concerning for sepsis. He will be started on IV antibiotics. Case discussed with hospitalist who accepted patient for admission for further evaluation and treatment. Lab Data 08/24/22 17:00 08/24/22 17:00 Radiology Impressions Chest X-Ray 08/24/22 16:26 IMPRESSION: 1. Mild patchy infiltrate and/or atelectasis lower right lung with small right effusion showing interval decrease or interval improvement with prior exam. Continued follow-up. 2. Postsurgical changes of aortic valve replacement again noted along with central venous catheter on the right. 3. Upper limits of normal cardiac size. Laboratory Results WBC 19.3 10^3/uL (4.0-10.0) H 08/24/22 17:00 RBC 2.23 10^6/uL (4.1-5.3) L 08/24/22 17:00 Hgb 7.2 g/dL (11.7-16.6) L 08/24/22 17:00 Hct 22.7 % (42.0-52.0) L 08/24/22 17:00 MCV 101.8 fl (80-94) H 08/24/22 17:00 MCH 32.3 pg (28.0-34.0) 08/24/22 17:00 MCHC 31.7 g/dL (30.0-36.0) 08/24/22 17:00 RDW 17.6 % (12.1-15.1) H 08/24/22 17:00 Plt Count 222 10^3/cmm (130-400) 08/24/22 17:00 MPV 8.9 fL (7.4-10.4) 08/24/22 17:00 Neut % (Auto) 90.8 % 08/24/22 17:00 Lymph % (Auto) 4.0 % 08/24/22 17:00 [place] % (Auto) 4.2 % 08/24/22 17:00 Eos % (Auto) 0.1 % 08/24/22 17:00 Baso % (Auto) 0.3 % 08/24/22 17:00 Neut # (Auto) 17.51 10^3/uL (1.8-7.7) H 08/24/22 17:00 Lymph # (Auto) 0.8 10^3/uL (0.8-4.8) 08/24/22 17:00 [place] # (Auto) 0.8 10^3/uL (0.2-0.9) 08/24/22 17:00 Eos # (Auto) 0.0 10^3/uL (0.0-0.8) 08/24/22 17:00 Baso # (Auto) 0.1 10^3/uL (0.0-0.1) 08/24/22 17:00 Nucleated RBC % (auto) 0.2 % 08/24/22 17:00 Nucleated RBCs # 0.0 /100WBC 08/24/22 17:00 Sodium 136 mmol/L (136-145) 08/24/22 17:00 Potassium 4.7 mmol/L (3.5-5.1) 08/24/22 17:00 Chloride 92 mmol/L (98-107) L 08/24/22 17:00 Carbon Dioxide 32 mmol/L (22-29) H 08/24/22 17:00 Anion Gap 16.7 (5-19) 08/24/22 17:00 BUN 39 mg/dL (8-23) H 08/24/22 17:00 Creatinine 5.7 mg/dL (0.7-1.2) H* 08/24/22 17:00 GFR Calculation 10.2 mL/min (90-130) L 08/24/22 17:00 Glucose 111 mg/dL (65-115) 08/24/22 17:00 Calculated Osmolality 292 mOsm/kg (285-295) 08/24/22 17:00 Calcium 9.1 mg/dL (8.5-10.5) 08/24/22 17:00 Total Bilirubin 0.5 mg/dL (0.15-1.2) 08/24/22 17:00 AST 20 U/L (0-40) 08/24/22 17:00 ALT 10 U/L (0-41) 08/24/22 17:00 Alkaline Phosphatase 127 U/L (40-130) 08/24/22 17:00 Total Protein 6.6 g/dL (6.6-8.7) 08/24/22 17:00 Albumin 3.6 g/dL (3.5-5.2) 08/24/22 17:00 Globulin 3.0 g/dL (1.3-4.6) 08/24/22 17:00 Blood Type O Positive 08/24/22 20:00 Rho(D) Type Positive 08/24/22 20:00 Antibody Screen Negative 08/24/22 20:00 Crossmatch See Detail 08/24/22 20:00 Discharge Plan Discharge Patient Disposition: Admitted As Inpatient Admit Provider: Altagracia Klein Clinical Impression: Sepsis, Anemia, ESRD (end stage renal disease) Condition: Stable Coding Level of Care Code ED Water Regulator And Valve Repairer for Lillian Anne
--- NOTE | 2022-08-24 16:26 | XRR_ITS ---
PROCEDURE INFORMATION: Exam: XR Chest Exam date and time: 08/24/2022 4:31 PM Age: 62 years old Clinical indication: Chest wall pain; Prior surgery; Surgery date: 6+ months; Surgery type: Heart valve; Additional info: Weakness TECHNIQUE: Imaging protocol: Radiologic exam of the chest. Views: 1 view. COMPARISON: CR (CHEST, ) 07/15/2022 10:21 PM FINDINGS: Lungs: Mild patchy infiltrate and or atelectasis lower right lung with small right effusion. This shows interval decrease or improvement from previous exam. Remainder of the lungs are clear. No consolidation. No pneumothorax. Pleural spaces: See Lungs finding. Heart/Mediastinum: Postsurgical changes of previous aortic valve replacement. Central venous access catheter on the right with tip at the cavoatrial junction. Cardiac silhouette is upper limits of normal in size. Vasculature: Mild arteriosclerosis of the thoracic aorta. Bones/joints: Visualized osseous structures show no acute abnormality. XR/XR chest 1V portable [id number] IMPRESSION: 1. Mild patchy infiltrate and/or atelectasis lower right lung with small right effusion showing interval decrease or interval improvement with prior exam. Continued follow-up. 2. Postsurgical changes of aortic valve replacement again noted along with central venous catheter on the right. 3. Upper limits of normal cardiac size.
[2022-08-24 17:23] LABS: Basophils # 0.1 10^3/uL (0.0-0.1); Basophils % 0.3 %; Eosinophils % 0.1 %; Hematocrit 22.7 % (42.0-52.0); Hemoglobin 7.2 g/dL (11.7-16.6); Lymphocytes # 0.8 10^3/uL (0.8-4.8); Mean Corpuscular HGB Conc 31.7 g/dL (30.0-36.0); Mean Corpuscular Hemoglobin 32.3 pg (28.0-34.0); Mean Corpuscular Volume 101.8 fl (80-94); Mean Platelet Volume 8.9 fL (7.4-10.4); Monocytes # 0.8 10^3/uL (0.2-0.9); Monocytes % 4.2 %; Neutrophils # 17.51 10^3/uL (1.8-7.7); Neutrophils % 90.8 %; Nucleated Red Blood Cells % 0.2 %; Platelet Count 222 10^3/cmm (130-400); Red Blood Count 2.23 10^6/uL (4.1-5.3); Red Cell Distribution Width 17.6 % (12.1-15.1); White Blood Count 19.3 10^3/uL (4.0-10.0)
[2022-08-24 17:52] LABS: Alanine Aminotransferase 10 U/L (0-41); Albumin Level 3.6 g/dL (3.5-5.2); Alkaline Phosphatase 127 U/L (40-130); Anion Gap 16.7 (5-19); Aspartate Amino Transferase 20 U/L (0-40); Blood Urea Nitrogen 39 mg/dL (8-23); Calcium 9.1 mg/dL (8.5-10.5); Carbon Dioxide 32 mmol/L (22-29); Chloride 92 mmol/L (98-107); Glomerular Filtration Rate 10.2 mL/min (90-130); Glucose 111 mg/dL (65-115); Osmolality Calculated 292 mOsm/kg (285-295); Potassium 4.7 mmol/L (3.5-5.1); Sodium 136 mmol/L (136-145); Total Bilirubin 0.5 mg/dL (0.15-1.2); Total Protein 6.6 g/dL (6.6-8.7)
--- NOTE | 2022-08-24 19:17 | PC.NURSE ---
PT O2 SATURATION NOTED TO BE 87-88% WHILE PT SLEEPING. PLACED ON 2L NC WITH IMPROVEMENT TO 95%
[2022-08-24] MEDS: cefepime 1,000 MG in sodium chloride 0.9% (plus) 50 ML 100 MG IV (20:39)
--- NOTE | 2022-08-24 20:56 | PC.NURSE ---
REPORT GIVEN TO NATALY JAMES, [facility]
[2022-08-24] MEDS: vancomycin 1,000 MG in sodium chloride 0.9% 250 ML 250 MG IV (21:05)
--- NOTE | 2022-08-24 22:02 | P.HP_ITS ---
Providers/Chief Complaint Admitting Physician: Altagracia Klein MD Primary Care Provider: Sulma Zavala MD Chief Complaint: low hemoglobin History of Present Illness Richard Huffman is a 62 year old male with h/o COPD, large ventral epigastric hernia, ESRD on HD (MWF), presented with c/o feeling generalised weakness and chills for last 3 days. He was recently in ER 3 days ago for similar complaints post dialysis session and was given IV fluids. His labs were normal 3 days ago. He has also been c/o worsening cough with yellow-rubio sputum, but no cold or chest pain or worsening SOB. Denies any history of bowel or urinary complaints. Has H/O pneumonia 1 month ago treated as an outpatient. Review of Systems Const: Reports: chills; Denies: body aches or change in appetite Eyes: Denies: change in vision or eye discharge ENMT: Denies: throat pain, dental pain or nasal discharge Card: Denies: chest pain or lightheadedness : Denies: dysuria Musc: Denies: neck pain or back pain Neuro: Reports: dizziness and other (Chills, generalized weakness.) Psych: Denies: depression Doug/Lymph: Denies: easy bruising All/Imm: Denies: urticaria, tongue swelling or facial swelling Medications/Allergies Home Medications Medication Instructions Recorded Confirmed Last Taken Type doxycycline hyclate 100 mg capsule 100 mg PO DAILY 07/31/20 08/21/22 08/21/22 History bumetanide 2 mg tablet 2 mg PO BID 11/28/20 08/21/22 08/21/22 History aspirin 81 mg chewable tablet 81 mg PO DAILY 01/26/22 08/21/22 08/21/22 History cyanocobalamin (vitamin B-12) 50 50 mcg PO DAILY 01/26/22 08/21/22 08/21/22 History mcg tablet (Vitamin B-12) docusate sodium 100 mg capsule 100 mg PO DAILY 01/26/22 08/21/22 08/21/22 History (Stool Softener) vit B,C-folic ac 800 mcg-zinc 12.5 1 tab PO BEDTIME 01/26/22 08/21/22 08/21/22 History mg-selen-D3 2,000 unit-vit E tablet (RenaPlex-D) albuterol sulfate 90 mcg/actuation 1 inh inhalation QID PRN shortness 05/26/22 08/21/22 Unknown Rx aerosol inhaler (Ventolin HFA) of breath or wheezing #8.5 grams cholecalciferol (vitamin D3) 125 125 mcg PO BID 05/26/22 08/21/22 08/21/22 History mcg (5,000 unit) capsule amiodarone 200 mg tablet 200 mg PO DAILY #30 tabs 05/28/22 08/21/22 08/21/22 Rx hydralazine 50 mg tablet 50 mg PO TID 05/28/22 08/21/22 08/21/22 History hydrocodone 5 mg-acetaminophen 325 1 tab PO BID PRN Pain 05/28/22 08/21/22 Unknown History mg tablet metolazone 2.5 mg tablet 5 mg PO DAILY 05/28/22 08/21/22 08/21/22 History torsemide 100 mg tablet 100 mg PO DAILY 05/28/22 08/21/22 08/21/22 History tramadol 50 mg tablet 50 mg PO Q4H PRN Pain 05/28/22 08/21/22 Unknown History lisinopril 20 mg tablet 20 mg PO DAILY 07/15/22 08/21/22 08/21/22 History metoprolol succinate 50 mg 50 mg PO BID 07/15/22 08/21/22 08/21/22 History tablet,extended release 24 hr oxycodone-acetaminophen 5 mg-325 1 tab PO Q4H PRN Pain 07/15/22 08/21/22 Unknown History mg tablet budesonide 0.5 mg/2 mL suspension 0.5 mg (2 mL) inhalation BID 30 07/18/22 08/21/22 08/21/22 Rx for nebulization days #120 mL ipratropium 0.5 mg-albuterol 3 mg 3 ml inhalation Q6H 30 days #90 mL 07/18/22 08/21/22 08/21/22 Rx (2.5 mg base)/3 mL nebulization soln formoterol fumarate 20 mcg/2 mL 2 ml inhalation BID #120 mL 07/28/22 08/21/22 08/21/22 Rx solution for nebulization (Perforomist) Allergies Allergy/AdvReac Type Severity Reaction Status Date / Time latex Allergy Mild Blisters Verified 08/21/22 15:50 petrolatum,white Allergy Mild Blisters Verified 08/21/22 15:50 [From A and D Barrier] amlodipine Allergy Unknown Verified 08/21/22 15:50 PFSH Acute PFSH: Medical History Atrial flutter Chronic kidney disease Diabetes DJD (degenerative joint disease) 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 Hyperlipidemia Hypertension Intermittent palpitations XI (obstructive sleep apnea) PVD (peripheral vascular disease) Surgical History H/O aortic valve replacement H/O aortic valve replacement with tissue graft H/O foot surgery Family History Grandmother Diabetes Grandfather Diabetes Denies family history of CAD (coronary artery disease) Clotting disorder Dementia Chronic kidney disease (CKD) Suicide Anesthesia complication Bleeding disorder Lung disease Cancer Stroke Social History Smoking and tobacco status: current every day smoker cigarettes Packs smoked per day: 1.25 Years cigarettes smoked: 46 Alcohol intake: never Substance/Drug Use: never Lives independently: Yes (with girlfriend) Household members: significant other Marital status: Single service: No 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al status: disabled 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 Pets and animals: Yes Vitals/I&O/Wt Last Vital Signs Temp 102.7 F H 08/24/22 21:51 Pulse 99 08/24/22 21:51 Resp 17 08/24/22 21:51 BP 133/68 08/24/22 21:51 Pulse Ox 95 08/24/22 21:51 O2 Del Method Nasal Cannula 08/24/22 21:51 O2 Flow Rate 2 08/24/22 21:51 08/24/22 08/24/22 08/24/22 06:59 14:59 22:59 Intake Total 50 / 50 Balance 50 / 50 Physical Exam Narrative: AAAox3, cooperative, obese chest- occasional scaterred wheezing B/L CVS- S1S2 normal ABD- large ventral epigastric hernia, non-tender, normal bowel sounds Ext- B/L 2+edema, tenderness present., pulses normal Data 08/24/22 17:00 08/24/22 17:00 Micro: Microbiology 08/24/22 17:09 Blood Culture - Preliminary Blood SPECIMEN COLLECTED 08/24/22 17:00 Blood Culture - Preliminary Blood SPECIMEN COLLECTED CXR: My impression: As below Radiologist's impression: right basilar mild pleural effusion noted, but improved from previous exam A&P Assessment and plan (1) Anemia: likely secondary to ESRD (2) Sepsis: etiology unknown, but likely secondary to acute exacerbation of COPD. Plan will do IV fluids normal saline at 60ml/hr. Check UA/Culture IV cefepime 1g q12h and vancomycin 1g q12h for now, follow up labs in am and deescalate antibiotics. once afebrile, will transfuse 1 unit PRBC. Attestations Medical Necessity Statement*: Sepsisof unknown etiology, hence need to follow up labs and also transfuse PRBC for anemia. Time Spent in Patient Care: 40min Coding Level of Care Code Critical Care >/= 30 minutes Critical care time (in minutes): 40 The high probability of a clinically significant, sudden or life threatening deterioration, as referenced in this documentation, required my full and direct attention, intervention and personal management. The critical care time shown is in addition to time spent performing any reported separately billable procedures and includes the following: [x] Data and vital sign review and interpretation [x ] Patient assessment, examination and intervention [x] Medication orders and management [x] Patient/Family updates as able [x] Care Coordination and Documentation. Diagnoses Anemia D64.9 Sepsis A41.9 Time Spent (min) 40
[2022-08-24] MEDS: acetaminophen 325 mg Tablet 650 MG PO (22:08)
[2022-08-25] VITALS (17 sets, daily range): BP systolic 126–164; BP diastolic 68–80; PULSE 70–96; RESP 12–18; TEMP 36.8–37.9; O2SAT 92–100
[2022-08-25] MEDS: acetaminophen 325 mg Tablet 650 MG PO (04:49)
[2022-08-25 07:11] LABS: Blood Urea Nitrogen 50 mg/dL (8-23); Carbon Dioxide 27 mmol/L (22-29); Chloride 94 mmol/L (98-107); Glomerular Filtration Rate 7.6 mL/min (90-130); Glucose 91 mg/dL (65-115); Osmolality Calculated 291 mOsm/kg (285-295); Sodium 134 mmol/L (136-145)
[2022-08-25] MEDS: albuterol 2.5 mg/3 mL Neb INHALATION ×4 (07:42→19:20)
[2022-08-25] MEDS: budesonide 0.5 mg/2 mL Neb INHALATION ×2 (07:42→19:20)
[2022-08-25 08:03] LABS: Basophils # 0.1 10^3/uL (0.0-0.1); Basophils % 0.6 %; Eosinophils % 0.2 %; Hemoglobin 8.1 g/dL (11.7-16.6); Lymphocytes # 1.1 10^3/uL (0.8-4.8); Lymphocytes % 10.8 %; Mean Corpuscular HGB Conc 31.2 g/dL (30.0-36.0); Mean Corpuscular Hemoglobin 31.6 pg (28.0-34.0); Mean Corpuscular Volume 101.6 fl (80-94); Mean Platelet Volume 9.1 fL (7.4-10.4); Monocytes # 0.9 10^3/uL (0.2-0.9); Monocytes % 8.5 %; Neutrophils % 79.2 %; Nucleated Red Blood Cells % 0.2 %; Platelet Count 177 10^3/cmm (130-400); Red Blood Count 2.56 10^6/uL (4.1-5.3); Red Cell Distribution Width 19.3 % (12.1-15.1); White Blood Count 10.6 10^3/uL (4.0-10.0)
[2022-08-25] MEDS: cefepime 1,000 MG in sodium chloride 0.9% (plus) 50 ML 100 MG IV (08:40)
[2022-08-25] MEDS: amiodarone 200 mg Tablet PO (08:50)
[2022-08-25] MEDS: docusate sodium 100 mg Capsule PO (08:53)
[2022-08-25] MEDS: metOLazone 5 MG Tablet PO (08:53)
[2022-08-25] MEDS: bumetanide 1 mg Tablet 2 MG PO ×2 (08:53→17:05)
[2022-08-25] MEDS: doxycycline 100 mg Tablet PO (08:53)
[2022-08-25] MEDS: cholecalciferol (vitamin D3) 5,000 unit Tablet 5000 UNIT PO ×2 (08:54→17:05)
[2022-08-25] MEDS: metoprolol succinate ER (24 HR) 50 mg Tablet PO ×2 (08:54→17:05)
[2022-08-25] MEDS: aspirin 81 mg Chew Tablet PO (08:54)
[2022-08-25] MEDS: hyDRALAzine 50 mg Tablet PO ×3 (08:54→20:47)
[2022-08-25 09:06] LABS: Specific Gravity, Urine 1.015 (1.005-1.030); Urine Appearance Clear (CLEAR); Urine Color Yellow (Yellow); pH Urine 8 (5-7)
[2022-08-25 09:07] LABS: Add Urine Microscopic? YES; Bacteria Urine TRACE /hpf; Bilirubin Urine Neg (Negative); Blood Urine Neg (Negative); Glucose Urine UA Trace (Normal); Ketones Urine Negative (Negative); Leukocyte Esterase Urine Negative (Negative); Mucus Urine TRACE /hpf; Nitrate Urine Negative (Negative); Protein Urine 1+ (Negative); RBC Urine 0-4 /hpf (0-2); Squamous Epithelial Cell Urine 0-4 /hpf (0-5); Sulfosalicylic Acid Urine Positive (Negative); Urobilinogen Urine Norm (Negative); WBC Urine 0-4 /hpf (0-5)
[2022-08-25 09:08] LABS: Add Urine Culture? No
--- NOTE | 2022-08-25 10:35 | PC.CHAP ---
Pastoral Care Encounter/Spiritual Assessment Type of Contact [] Declined application development project manager visit [] Patient/Family/Request visit [] Outpatient visit [] Follow-up visit [] Physician referral [] Code/Alert [] Routine visit [] Staff referral [] Actively dying [x] Patient sleeping [] Family support [] [] Out of room [] Palliative care [] [] Receiving care in room [] Pre-surgical visit [] Trauma [] Long length of stay [] ICU visit [] Other: Relational/Emotional Strength [] Patient feels connected with others/family/visitors/staff [] Distress [] Loneliness/isolation [] Abandonment Spirituality of Patient [] Person of Amy [] Attends Taoist of their Amy [] Believes in Prayer [] Reads Bible or Alevism materials [] There are Spiritual issues to be addressed Road Design Engineer Interventions [] Prayer [] Active listening [] Non-anxious presence [] Spiritual/emotional support [] Crisis/trauma care [] Spiritual counseling [] Bereavement support [] Provided bereavement packet [] Provided Bible/devotional materials [] Provided toy/stuffed animal, coloring book to patient or family member [] Provided Communion [] Anointing/[place] [] Salvation [] Completed spiritual assessment [] Other: Impact on Illness or Injury [] Angry [] Fearful [] Anxious [] Often cries [] Exhaustion [] Unable to work [] Unable to attend evangelical [] Unable to walk/stand [] Unable to read [] Unable to drive [] Unable to eat/drink [] Unable to sleep [] Unable to be with family [] Patient intubated [] Other: Summary Time spent with patient
--- NOTE | 2022-08-25 17:10 | P.PN_ITS ---
Subjective Subjective: Patient had a Tmax of 102 ?F overnight. States that he felt some chills when the fever presented. This was preceding the blood transfusion. Patient denies any fevers at home, however states that he has been feeling hot and cold for the last couple of weeks. Denies any chest pain, cough, expectoration, abdominal pain, nausea, vomiting, diarrhea. Denies any recent issues with his HD catheter. He has a fistula which is not usable over his left arm. Current dialysis catheter has been in for about 2 years. Dressing taken down today. No aliyah pus encountered, however a lot of debris/concretions seen around the catheter insertion site tunneling under the skin. Patient states that his cannula tends to bleed during dialysis and this is taken care of by placing cotton swabs or gauze at the bleeding site. I am unable to remove these concretions. Hemoglobin at 8.1 after undergoing 1 packed red blood cell transfusion overnight. Medications: Reviewed: Yes Vitals/I&O/Wt Last Vital Signs Temp 98.2 F 08/25/22 16:00 Pulse 87 08/25/22 16:00 Resp 18 08/25/22 16:00 BP 164/79 08/25/22 16:00 Pulse Ox 96 08/25/22 16:00 O2 Del Method Room Air 08/25/22 16:00 O2 Flow Rate 2 08/25/22 15:29 08/25/22 08/25/22 08/25/22 06:59 14:59 22:59 Intake Total 350 / 770 240 / 240 Output Total 400 / 400 400 / 400 400 / 800 Balance -50 / 370 -160 / -160 -400 / -560 Weight last 48 hrs Weight 102.512 kg Physical Exam Narrative: General: No acute distress, AO x3 HEENT: PERRLA, pupils bilaterally equal and reactive, pallors not present Chest: Normal vesicular breath sounds, no added sounds, equal good air entry bilaterally CVS: S1-S2 regular, no murmurs, no tachycardia, no gallops, no rubs Abdomen: Soft, nontender, no organomegaly, bowel sounds present Neuro: No focal deficits, no facial deformity, AO x3, power 5/5 in all limbs Data 08/25/22 07:56 08/25/22 06:30 Micro: Microbiology 08/25/22 15:22 Blood Culture - Preliminary Blood SPECIMEN COLLECTED 08/24/22 17:09 Blood Culture - Preliminary Blood SPECIMEN COLLECTED 08/24/22 17:00 Blood Culture - Preliminary Blood SPECIMEN COLLECTED A&P Assessment and plan (1) Anemia: Patient with end-stage renal D?li disease on hemodialysis Wednesday sent to the hospital from his dialysis center after being noted to have a hemoglobin of 7 at HD. He received 1 unit of packed red blood cell transfusion overnight. Hemoglobin this morning is at 8.1. Etiology is likely secondary to end-stage renal disease. Last transfusion was in February 2022 when patient was admitted for TAVR at [facility]. (2) Fever: Overnight notably has not noticed any aliyah fevers at home, however states that he has had chills on and off the past couple of weeks. Source is currently under evaluation. Chest x-ray shows atelectasis over the right lower lung with a small effusion. This likely contributes to a known pulmonary nodule seen on prior CT imaging for which patient is following with pulmonary medicine as outpatient. Denies any abdominal symptoms. UA with negative nitrite, negative leukocyte Estrace, 0-4 WBCs Blood culture taken and pending Noted to have a lot of debris/concretions around the catheter insertion site, suspect that this may be a combination of dried blood and dressing material. I am unable to remove this debris currently. Surgery consulted for assessment. No active puslike discharge. The site was previously noted to be healthy in July 2022. Blood cultures additionally taken from catheter today. Of note, patient has a past medical history of endocarditis for which he is on chronic doxycycline suppression. will request prior records continue cefepime , d/c doxycycline for now and start vancomycin empirically Attestations Medical Necessity Statement*: continued admission for fever source evaluation. suspected blood stream infection, high risk given HD catheter site issues, past h/o endocarditis, HD tomorrow per schedule Coding Level of Care Code Acute Code for [facility] Fwd Diagnoses Anemia D64.9 Fever R50.9
[2022-08-25 21:56] LABS: Hepatitis B Surface Antigen Non-Reactive (Nonreactive)
[2022-08-26] VITALS (9 sets, daily range): BP systolic 115–165; BP diastolic 61–81; PULSE 71–88; RESP 16–18; TEMP 36.7–37.3; O2SAT 91–100
--- NOTE | 2022-08-26 00:29 | PC.PHAR ---
INITIAL VANCOMYCIN DOSE Pt received 1 g vanc in ER on 08/24/22 @ 2100. Initial dose for this patient would be 1 g Q48H. Due to renal function and pt being on HD, will have a random level drawn prior to HD in the morning and assess if dose should be given post dialysis.
[2022-08-26] MEDS: albuterol 2.5 mg/3 mL Neb INHALATION ×4 (07:47→21:00)
[2022-08-26] MEDS: budesonide 0.5 mg/2 mL Neb INHALATION ×2 (07:47→21:00)
[2022-08-26] MEDS: metOLazone 5 MG Tablet PO (08:15)
[2022-08-26] MEDS: metoprolol succinate ER (24 HR) 50 mg Tablet PO ×2 (08:15→18:22)
[2022-08-26] MEDS: amiodarone 200 mg Tablet PO (08:15)
[2022-08-26] MEDS: bumetanide 1 mg Tablet 2 MG PO ×2 (08:15→18:22)
[2022-08-26] MEDS: hyDRALAzine 50 mg Tablet PO ×3 (08:16→19:39)
[2022-08-26] MEDS: cholecalciferol (vitamin D3) 5,000 unit Tablet 5000 UNIT PO ×2 (08:16→18:22)
[2022-08-26] MEDS: aspirin 81 mg Chew Tablet PO (08:16)
[2022-08-26] MEDS: docusate sodium 100 mg Capsule PO (08:16)
[2022-08-26] MEDS: cefepime 1,000 MG in sodium chloride 0.9% (plus) 50 ML 100 MG IV (08:24)
[2022-08-26 08:30] LABS: Vancomycin Random 11.4 ug/mL (20.0-40.0)
--- NOTE | 2022-08-26 10:45 | PC.PHAR ---
PHARMACY TO DOSE CONSULT - VANCOMYCIN Patient is currently receiving Hemodialysis on Wednesday, Wednesday, and Wednesday. He received a dose in the ER on 08/24/22 @ 2100 of 1000mg. A random trough was drawn this morning and came back at 11.4. A 750mg dose will be given today (08/26/22 @ 1400) after he completes his dialysis session. If still admitted, we will enter another random trough on Wednesday morning prior to his next dialysis session. Depending on these results, we will adjust his next post-dialysis dose for Wednesday afternoon. Please let us know if there is anything else we can do in the care of this patient. Thanks, Josue Panchal, Pharm.D
[2022-08-26] MEDS: heparin, porcine 1,000 unit/mL INJ 10 mL 1000 UNIT IV (12:33)
--- NOTE | 2022-08-26 13:30 | P.CONIM_ITS ---
Providers/Reason For Consult Consulting Physician/Specialty*: [facility]a/Nephrology Reason for Consult*: ESRD Attending Physician: Beckie Stafford MD Primary Care Provider: Sulma Zavala MD History of Present Illness History of Present Illness Richard Huffman is a 62 year old male Patient patient is a 62-year-old male with past medical history of dialysis, COPD, chronic anemia presented to the hospital with weakness and chills. He also complained of having cough productive of yellowish sputum. Patient has fever up to 102.7, other vital signs are stable, lab data significant for hemoglobin of 7.2. Review of Systems Narrative: NEGATIVE Medications/Allergies Home Medications Medication Instructions Recorded Confirmed Last Taken Type doxycycline hyclate 100 mg capsule 100 mg PO QAM 07/31/20 08/25/22 08/21/22 History bumetanide 2 mg tablet 2 mg PO BID 11/28/20 08/25/22 08/21/22 History aspirin 81 mg chewable tablet 81 mg PO DAILY 01/26/22 08/25/22 08/21/22 History docusate sodium 100 mg capsule 100 mg PO DAILY 01/26/22 08/25/22 08/21/22 History (Stool Softener) vit B,C-folic ac 800 mcg-zinc 12.5 1 tab PO BEDTIME 01/26/22 08/25/22 08/21/22 History mg-selen-D3 2,000 unit-vit E tablet (RenaPlex-D) albuterol sulfate 90 mcg/actuation 1 inh inhalation QID PRN shortness 05/26/22 08/25/22 Unknown Rx aerosol inhaler (Ventolin HFA) of breath or wheezing #8.5 grams cholecalciferol (vitamin D3) 125 125 mcg PO DAILY 05/26/22 08/25/22 08/21/22 History mcg (5,000 unit) capsule amiodarone 200 mg tablet 200 mg PO DAILY #30 tabs 05/28/22 08/25/22 08/21/22 Rx hydralazine 50 mg tablet 50 mg PO TID 05/28/22 08/25/22 08/21/22 History torsemide 100 mg tablet 100 mg PO DAILY 05/28/22 08/25/22 08/21/22 History tramadol 50 mg tablet 50 mg PO Q4H PRN Pain 05/28/22 08/25/22 Unknown History lisinopril 20 mg tablet 20 mg PO BEDTIME 07/15/22 08/25/22 08/21/22 History metoprolol succinate 50 mg 50 mg PO BID 07/15/22 08/25/22 08/21/22 History tablet,extended release 24 hr oxycodone-acetaminophen 5 mg-325 0.5 - 1 tab PO Q4H PRN Pain 07/15/22 08/25/22 Unknown History mg tablet budesonide 0.5 mg/2 mL suspension 0.5 mg inhalation QPM 08/25/22 08/25/22 Unknown History for nebulization cyanocobalamin (vitamin B-12) 1,000 mcg PO DAILY 08/25/22 08/25/22 Unknown History 1,000 mcg tablet (Vitamin B-12) ipratropium 0.5 mg-albuterol 3 mg 3 ml inhalation Q6H PRN Shortness 08/25/22 08/25/22 Unknown History (2.5 mg base)/3 mL nebulization Of Breath soln metolazone 5 mg tablet 5 mg PO QAM 08/25/22 08/25/22 Unknown History Allergies Allergy/AdvReac Type Severity Reaction Status Date / Time latex Allergy Mild Blisters Verified 08/21/22 15:50 petrolatum,white Allergy Mild Blisters Verified 08/21/22 15:50 [From A and D Barrier] amlodipine Allergy Unknown Verified 08/21/22 15:50 Current Medications Generic Name Dose Route Start Last Admin Trade Name Freq PRN Reason Stop Dose Admin Acetaminophen 650 mg 08/24/22 21:32 08/25/22 04:49 Acetaminophen 325 Mg Tablet PO 650 mg Q6H PRN Administration FEVER Albuterol Sulfate 2.5 mg 08/25/22 08:00 08/26/22 11:38 Albuterol 2.5 Mg/3 Ml Neb INHALATION 2.5 mg QID.RESPIRATORY KENNEDY Administration Amiodarone HCl 200 mg 08/25/22 09:00 08/26/22 08:15 Amiodarone 200 Mg Tablet PO 200 mg DAILY KENNEDY Administration Aspirin 81 mg 08/25/22 09:00 08/26/22 08:16 Aspirin 81 Mg Chew Tablet PO 81 mg DAILY KENNEDY Administration Budesonide 0.5 mg 08/25/22 08:00 08/26/22 07:47 Budesonide 0.5 Mg/2 Ml Neb INHALATION 0.5 mg BID.RESPIRATORY KENNEDY Administration Bumetanide 2 mg 08/25/22 09:00 08/26/22 08:15 Bumetanide 1 Mg Tablet PO 2 mg BID KENNEDY Administration Docusate Sodium 100 mg 08/25/22 09:00 08/26/22 08:16 Docusate Sodium 100 Mg Capsule PO 100 mg DAILY KENNEDY Administration Hydralazine HCl 50 mg 08/25/22 09:00 08/26/22 08:16 Hydralazine 50 Mg Tablet PO 50 mg TID KENNEDY Administration Cefepime HCl 1,000 mg/ Sodium 50 mls @ 100 mls/hr 08/26/22 08:00 08/26/22 10:16 Chloride IV Infused Q24H KENNEDY Infusion Protocol Metolazone 5 mg 08/25/22 09:00 08/26/22 08:15 Metolazone 5 Mg Tablet PO 5 mg DAILY KENNEDY Administration Metoprolol Succinate 50 mg 08/25/22 09:00 08/26/22 08:15 Metoprolol Succinate Er (24 Hr) 50 Mg Tablet PO 50 mg BID KENNEDY Administration Non-Formulary Medication 1 tab 08/25/22 21:00 08/25/22 22:24 Vit B,H-Dx-Sjmo-Selen-Vit D3-E [Renaplex-D] PO Not Given BEDTIME [facility] Vitamin D 5,000 unit 08/25/22 09:00 08/26/22 08:16 Cholecalciferol (Vitamin D3) 5,000 Unit Tablet PO 5,000 unit BID KENNEDY Administration PFSH Acute PFSH: Medical History Atrial flutter Chronic kidney disease Diabetes DJD (degenerative joint disease) 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 Hyperlipidemia Hypertension Intermittent palpitations XI (obstructive sleep apnea) PVD (peripheral vascular disease) Surgical History H/O aortic valve replacement H/O aortic valve replacement with tissue graft H/O foot surgery Family History Grandmother Diabetes Grandfather Diabetes Denies family history of CAD (coronary artery disease) Clotting disorder Dementia Chronic kidney disease (CKD) Suicide Anesthesia complication Bleeding disorder Lung disease Cancer Stroke Social History Smoking and tobacco status: current every day smoker cigarettes Packs smoked per day: 1.25 Years cigarettes smoked: 46 Alcohol intake: never Substance/Drug Use: never Lives independently: Yes (with girlfriend) Household members: significant other Marital status: Single service: No 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al status: disabled 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 Pets and animals: Yes Vitals/I&O/Wt Last Vital Signs Temp 98.8 F 08/26/22 07:32 Pulse 88 08/26/22 11:41 Resp 16 08/26/22 11:41 BP 142/70 08/26/22 07:32 Pulse Ox 100 08/26/22 11:41 O2 Del Method Nasal Cannula 08/26/22 11:41 O2 Flow Rate 2 08/26/22 11:41 08/25/22 08/26/22 08/26/22 22:59 06:59 14:59 Intake Total 168 / 408 290 / 290 Output Total 750 / 1150 550 / 1700 300 / 300 Balance -582 / -742 -550 / -1292 -10 / -10 Weight last 48 hrs Weight 102.512 kg Physical Exam Narrative: AWAKE , LAERT HEENT S1 S2 RRR LUNGS CLEAR YAZMIN NO EDEMA Data 08/25/22 07:56 08/25/22 06:30 Micro: Microbiology 08/24/22 17:09 Blood Culture - Preliminary Blood NEGATIVE TO DATE 08/24/22 17:00 Blood Culture - Preliminary Blood NEGATIVE TO DATE 08/25/22 15:22 Blood Culture - Preliminary Blood SPECIMEN COLLECTED A&P Assessment and plan (1) ESRD (end stage renal disease): Plan 1. End-stage renal disease: Dialysis per [facility] schedule, plan for HD today Anemia: Hemoglobin low, status post transfusion today Sepsis: ? Line Sepsis , blood cultures pending on cefepime and IV vanc HTN : BP controlled pt evaluated using audiovisula cart Time spent 45 min Consult Attestations Medical Necessity Statement: PER MEDICINE Coding Level of Care Code Acute Code for Chg Fwd Diagnoses ESRD (end stage renal disease) N18.6
[2022-08-26] MEDS: vancomycin 750 MG in sodium chloride 0.9% 250 ML 250 MG IV (15:25)
--- NOTE | 2022-08-26 16:27 | P.PN_ITS ---
Subjective Subjective: Last febrile on August 25, 100.2 Fahrenheit. Blood cultures currently pending, negative thus far.Getting HD today, debris surrounding HD cathter was removed today at HD by nurse. Medications: Reviewed: Yes Vitals/I&O/Wt Last Vital Signs Temp 98.3 F 08/26/22 15:38 Pulse 72 08/26/22 15:38 Resp 18 08/26/22 15:38 BP 139/67 08/26/22 15:38 Pulse Ox 91 08/26/22 15:38 O2 Del Method Room Air 08/26/22 15:38 O2 Flow Rate 2 08/26/22 11:41 08/26/22 08/26/22 08/26/22 06:59 14:59 22:59 Intake Total 290 / 290 Output Total 550 / 1700 300 / 300 Balance -550 / -1292 -10 / -10 Weight last 48 hrs Weight 102.512 kg Physical Exam Narrative: General: No acute distress, AO x3 HEENT: PERRLA, pupils bilaterally equal and reactive, pallors not present Chest: Normal vesicular breath sounds, no added sounds, equal good air entry bilaterally CVS: S1-S2 regular, no murmurs, no tachycardia, no gallops, no rubs Abdomen: Soft, nontender, no organomegaly, bowel sounds present Neuro: No focal deficits, no facial deformity, AO x3, power 5/5 in all limbs Data 08/25/22 07:56 08/25/22 06:30 Micro: Microbiology 08/25/22 15:22 Blood Culture - Preliminary Blood NEGATIVE TO DATE 08/24/22 17:09 Blood Culture - Preliminary Blood NEGATIVE TO DATE 08/24/22 17:00 Blood Culture - Preliminary Blood NEGATIVE TO DATE A&P Assessment and plan (1) Anemia: Patient with end-stage renal disease on hemodialysis Wednesday sent to the hospital from his dialysis center after being noted to have a hemoglobin of 7 at HD. He received 1 unit of packed red blood cell transfusion Etiology is likely secondary to end-stage renal disease. Last transfusion was in February 2022 when patient was admitted for TAVR at [place]. (2) Fever: Overnight notably has not noticed any aliyah fevers at home, however states that he has had chills on and off the past couple of weeks. Source is currently under evaluation. Chest x-ray shows atelectasis over the right lower lung with a small effusion. This likely contributes to a known pulmonary nodule seen on prior CT imaging for which patient is following with pulmonary medicine as outpatient. Denies any abdominal symptoms. UA with negative nitrite, negative leukocyte Estrace, 0-4 WBCs Blood culture taken and pending Noted to have a lot of debris/concretions around the catheter insertion site, suspect that this may be a combination of dried blood and dressing material. I am unable to remove this debris currently. Surgery consulted for assessment. No active puslike discharge. The site was previously noted to be healthy in July 2022. Blood cultures additionally taken from catheter today. Of note, patient has a past medical history of endocarditis for which he is on chronic doxycycline suppression. will request prior records continue cefepime , d/c doxycycline for now and start vancomycin empirically echo 07/16 Normal left ventricular size and systolic function, EF 59 %.Grade III/IV diastolic dysfunction?. Thickened mitral valve. Moderate mitral annular calcification,?? ?Mitral annular ring.? Moderately severe eccentric mitral ?regurgitation with the regurgitant jet directed posteriorly. ?The bioprosthetic transcatheter valve appears to be well- ?positioned. The mitral ?regurgitation appears to be more severe compared to 2020 awiating documents from [facility] regarding endocarditis in 2017 patient is s/p AVR x 2 in 2016 for endocarditis and then more recently in feb 2022. Attestations Medical Necessity Statement*: pending blood cx, high suspicion for endocarditis, vs vascular infection Coding Level of Care Code Acute Code for Chg Fwd Diagnoses Anemia D64.9 Fever R50.9
--- NOTE | 2022-08-26 17:08 | PC.HD ---
Cath dressing soiled and loose on 1 side, removed. Hard reddish brown clump very firmly adhered to catheter and protruding at insertion site. Softened with sterile saline and gauze and removed, 1 cm by 2 cm deep. Site tender and slightly pink but no overt redness, drainage, warmth, or swelling. Built up adhesive removed from catheter. Site cleaned with CHG and LA and Covaderm dressing applied.
[2022-08-26] MEDS: TORSEmide 20 mg Tablet 100 MG PO (19:38)
[2022-08-26 20:40] LABS: Adenovirus Not Detected (NOT DETECT); Chlamydia Pneumoniae Not Detected (NOT DETECT); Coronavirus 229E,HKU1,NL63,OC4 Not Detected (NOT DETECT); Human Metapneumovirus Not Detected (NOT DETECT); Human Rhinovirus/Enterovirus Not Detected (NOT DETECT); Influenza A Not Detected (NOT DETECT); Influenza A H1 Not Detected (NOT DETECT); Influenza A H1-2009 Not Detected (NOT DETECT); Influenza A H3 Not Detected (NOT DETECT); Influenza B Not Detected (NOT DETECT); Mycoplasma Pneumoniae Not Detected (NOT DETECT); Parainfluenza Virus Type 1 Not Detected (NOT DETECT); Parainfluenza Virus Type 2 Not Detected (NOT DETECT); Parainfluenza Virus Type 3 Not Detected (NOT DETECT); Parainfluenza Virus Type 4 Not Detected (NOT DETECT); Respiratory Syncytial Virus A Not Detected (NOT DETECT); Respiratory Syncytial Virus B Not Detected (NOT DETECT); SARS-COV-2 Not Detected (NOT DETECT)
[2022-08-27] VITALS (14 sets, daily range): BP systolic 146–187; BP diastolic 73–81; PULSE 72–81; RESP 16–20; TEMP 36.6–37.2; O2SAT 94–98
[2022-08-27 04:57] LABS: Basophils # 0.1 10^3/uL (0.0-0.1); Basophils % 0.9 %; Eosinophils # 0.2 10^3/uL (0.0-0.8); Eosinophils % 2.3 %; Hematocrit 24.5 % (42.0-52.0); Hemoglobin 7.5 g/dL (11.7-16.6); Lymphocytes # 1.7 10^3/uL (0.8-4.8); Lymphocytes % 23.4 %; Mean Corpuscular HGB Conc 30.6 g/dL (30.0-36.0); Mean Corpuscular Hemoglobin 31.6 pg (28.0-34.0); Mean Corpuscular Volume 103.4 fl (80-94); Mean Platelet Volume 9.2 fL (7.4-10.4); Monocytes # 1.2 10^3/uL (0.2-0.9); Monocytes % 16.6 %; Neutrophils # 3.96 10^3/uL (1.8-7.7); Neutrophils % 56.2 %; Nucleated Red Blood Cells % 0 %; Platelet Count 157 10^3/cmm (130-400); Red Blood Count 2.37 10^6/uL (4.1-5.3); Red Cell Distribution Width 18.6 % (12.1-15.1)
[2022-08-27 05:16] LABS: Alanine Aminotransferase 10 U/L (0-41); Albumin Level 3.1 g/dL (3.5-5.2); Alkaline Phosphatase 131 U/L (40-130); Anion Gap 15.2 (5-19); Aspartate Amino Transferase 21 U/L (0-40); Blood Urea Nitrogen 33 mg/dL (8-23); Calcium 8.6 mg/dL (8.5-10.5); Carbon Dioxide 27 mmol/L (22-29); Chloride 99 mmol/L (98-107); Globulin 2.7 g/dL (1.3-4.6); Glomerular Filtration Rate 10.9 mL/min (90-130); Glucose 167 mg/dL (65-115); Osmolality Calculated 295 mOsm/kg (285-295); Potassium 4.2 mmol/L (3.5-5.1); Sodium 137 mmol/L (136-145); Total Bilirubin 0.3 mg/dL (0.15-1.2); Total Protein 5.8 g/dL (6.6-8.7)
[2022-08-27] MEDS: bumetanide 1 mg Tablet 2 MG PO ×2 (08:18→16:40)
[2022-08-27] MEDS: metoprolol succinate ER (24 HR) 50 mg Tablet PO ×2 (08:18→16:40)
[2022-08-27] MEDS: aspirin 81 mg Chew Tablet PO (08:19)
[2022-08-27] MEDS: amiodarone 200 mg Tablet PO (08:19)
[2022-08-27] MEDS: docusate sodium 100 mg Capsule PO (08:19)
[2022-08-27] MEDS: hyDRALAzine 50 mg Tablet PO ×3 (08:19→19:41)
[2022-08-27] MEDS: cholecalciferol (vitamin D3) 5,000 unit Tablet 5000 UNIT PO ×2 (08:26→16:41)
[2022-08-27] MEDS: metOLazone 5 MG Tablet PO (08:26)
[2022-08-27] MEDS: cefepime 1,000 MG in sodium chloride 0.9% (plus) 50 ML 100 MG IV (08:26)
[2022-08-27] MEDS: albuterol 2.5 mg/3 mL Neb INHALATION ×3 (08:33→15:02)
[2022-08-27] MEDS: budesonide 0.5 mg/2 mL Neb INHALATION (08:33)
--- NOTE | 2022-08-27 10:32 | PC.PHAR ---
PHARMACY TO DOSE CONSULT - VANCOMYCIN Placed a lab order for a random vancomycin level to be drawn with AM labs on Wednesday morning. If patient is still admitted, he will receive hemo-dialysis Wednesday and we will give another dose after his session is completed. The dose will depend on pre-HD vanc levels. Will update the note once a dose is decided. Thanks, Josue Panchal, Pharm.D
--- NOTE | 2022-08-27 13:54 | P.PN_ITS ---
Subjective Subjective: no new complaints Medications: Reviewed: Yes Vitals/I&O/Wt Last Vital Signs Temp 98.4 F 08/27/22 12:00 Pulse 73 08/27/22 12:00 Resp 18 08/27/22 11:23 BP 160/81 08/27/22 12:00 Pulse Ox 94 08/27/22 12:00 O2 Del Method Room Air 08/27/22 11:23 O2 Flow Rate 2 08/26/22 11:41 08/26/22 08/27/22 08/27/22 22:59 06:59 14:59 Intake Total 250 / 1040 358 / 358 Output Total 425 / 4185 300 / 4485 Balance -175 / -3145 -300 / -3445 358 / 358 Weight last 48 hrs Weight 100.8 kg Physical Exam Narrative: AWAKE , LAERT HEENT S1 S2 RRR LUNGS CLEAR YAZMIN NO EDEMA Data 08/27/22 04:18 08/27/22 04:18 Micro: Microbiology 08/25/22 15:22 Blood Culture - Preliminary Blood NEGATIVE TO DATE A&P Assessment and plan (1) ESRD (end stage renal disease): Plan 1. End-stage renal disease: Dialysis per [facility] schedule, plan for HD tomorrow Anemia: Hemoglobin low, status post transfusion today Sepsis: ? Line Sepsis , blood cultures negative so far on cefepime and IV vanc HTN : BP controlled pt evaluated using audiovisula cart Time spent 45 min Attestations Medical Necessity Statement*: per medicine Coding Level of Care Code Acute Code for Chg Fwd Diagnoses ESRD (end stage renal disease) N18.6
--- NOTE | 2022-08-27 17:18 | P.PN_ITS ---
Subjective Subjective: Hb dropped to 7.5 today, denies any karely. Afebrile now hemodynamically stable. Medications: Reviewed: Yes Vitals/I&O/Wt Last Vital Signs Temp 98.1 F 08/27/22 16:59 Pulse 73 08/27/22 16:59 Resp 18 08/27/22 16:59 BP 161/81 08/27/22 16:59 Pulse Ox 96 08/27/22 15:54 O2 Del Method Room Air 08/27/22 15:04 O2 Flow Rate 2 08/26/22 11:41 08/27/22 08/27/22 08/27/22 06:59 14:59 22:59 Intake Total 358 / 358 0 / 358 Output Total 300 / 4485 Balance -300 / -3445 358 / 358 0 / 358 Weight last 48 hrs Weight 100.8 kg Physical Exam Narrative: General: No acute distress, AO x3 HEENT: PERRLA, pupils bilaterally equal and reactive, pallors not present Chest: Normal vesicular breath sounds, no added sounds, equal good air entry bilaterally CVS: S1-S2 regular, no murmurs, no tachycardia, no gallops, no rubs Abdomen: Soft, nontender, no organomegaly, bowel sounds present Neuro: No focal deficits, no facial deformity, AO x3, power 5/5 in all limbs Data 08/27/22 04:18 08/27/22 04:18 Micro: Microbiology 08/25/22 15:22 Blood Culture - Preliminary Blood NEGATIVE TO DATE A&P Assessment and plan (1) Anemia: Patient with end-stage renal disease on hemodialysis Wednesday se nt to the hospital from his dialysis center after being noted to have a hemoglobin of 7 at HD. He received 1 unit of packed red blood cell transfusion Etiology is likely secondary to end-stage renal disease. Hemoglobin again dropped to 7.5 today, transfuse 1 unit packed red blood cell. In a patient with multiple cardiac risk factors would aim to keep her hemoglobin closer to 8. (2) Fever: Overnight notably has not noticed any aliyah fevers at home, however states that he has had chills on and off the past couple of weeks. Source is currently under evaluation. Chest x-ray shows atelectasis over the right lower lung with a small effusion. This likely contributes to a known pulmonary nodule seen on prior CT imaging for which patient is following with pulmonary medicine as outpatient. Denies any abdominal symptoms. UA with negative nitrite, negative leukocyte Estrace, 0-4 WBCs Blood culture taken and pending Noted to have a lot of debris/concretions around the catheter insertion site, suspect that this may be a combination of dried blood and dressing material. I am unable to remove this debris currently. Surgery consulted for assessment. No active puslike discharge. The site was previously noted to be healthy in July 2022. Blood cultures additionally taken from catheter today. Of note, patient has a past medical history of endocarditis for which he is on chronic doxycycline suppression. will request prior records continue cefepime , d/c doxycycline for now and start vancomycin empirically echo 07/16 Normal left ventricular size and systolic function, EF 59 %.Grade III/IV diastolic dysfunction?. Thickened mitral valve. Moderate mitral annular calcification,?? ?Mitral annular ring.? Moderately severe eccentric mitral ?regurgitation with the regurgitant jet directed posteriorly. ?The bioprosthetic transcatheter valve appears to be well- ?positioned. The mitral ?regurgitation appears to be more severe compared to 2020 awiating documents from [facility] regarding endocarditis in 2017 patient is s/p AVR x 2 in 2017 for endocarditis and then more recently in feb 2022. Attestations Medical Necessity Statement*: Blood transfusion today, he is afebrile now. Leukocytosis is resolved. Overall infectious source remains unclear. Blood cultures are overall negative. Possible that patient may have had an acute viral syndrome that led up to his symptoms. Transfusion today, plan discharge after dialysis tomorrow. Coding Level of Care Code Acute Code for [facility] Diagnoses Anemia D64.9 Fever R50.9
[2022-08-27] MEDS: TORSEmide 20 mg Tablet 100 MG PO (19:41)
[2022-08-28 00:42] VITALS: BP 158/74; PULSE 80; RESP 19; TEMP 36.9; O2SAT 93
--- NOTE | 2022-08-28 02:06 | PC.NURSE ---
Addendum entered by Lucero Villela RN 08/28/22 02:30: LEENA Joseph also ordered by Dr. Klein for patient c/o nausea. Original Note: Patient asking for something for heartburn. Patient states at home I mix baking soda with water. Patient states I need sodium bicarb. I know you have sodium bicarb tablets. Dr. Klein notified of patient c/o heartburn. Carafate x1 ordered.
[2022-08-28] MEDS: sucralfate 1 gm/10 mL Oral Liq UDC PO (02:15)
[2022-08-28] MEDS: ondansetron 2 mg/ML SDV 2 mL 4 MG IVP (02:25)
[2022-08-28 04:00] VITALS: BP 171/81; PULSE 73; RESP 21; TEMP 36.8; O2SAT 96
[2022-08-28 04:16] LABS: Hematocrit 28.5 % (42.0-52.0); Hemoglobin 8.6 g/dL (11.7-16.6)
[2022-08-28 04:34] LABS: Vancomycin Random 16.6 ug/mL (20.0-40.0)
[2022-08-28 07:15] VITALS: BP 164/79; PULSE 68; RESP 18; TEMP 36.9; O2SAT 97
[2022-08-28 07:56] VITALS: BP 168/79; PULSE 69; RESP 16; TEMP 36.7
--- NOTE | 2022-08-28 07:57 | PC.HD ---
Patient's dressing was changed prior to HD treatment initiation. Catheter insertion site, which was previously reported to have a hard, crusty, olug which was removed by the other guide escort, was noted to be clean, dry, and without evidence of aliyah infection. No redness or discharge noted.
[2022-08-28 11:02] VITALS: BP 131/67; PULSE 68; RESP 16; TEMP 36.8
--- NOTE | 2022-08-28 11:20 | P.PN_ITS ---
Subjective Subjective: s/p hd Medications: Reviewed: Yes Vitals/I&O/Wt Last Vital Signs Temp 98.2 F 08/28/22 11:02 Pulse 68 08/28/22 11:02 Resp 16 08/28/22 11:02 BP 131/67 08/28/22 11:02 Pulse Ox 97 08/28/22 07:15 O2 Del Method Room Air 08/28/22 07:15 O2 Flow Rate 2 08/26/22 11:41 08/27/22 08/28/22 08/28/22 22:59 06:59 14:59 Intake Total 600 / 958 320 / 1278 420 / 420 Output Total 350 / 350 1025 / 1375 3300 / 3300 Balance 250 / 608 -705 / -97 -2880 / -2880 Weight last 48 hrs Weight 101 kg Weight 100.8 kg Physical Exam Narrative: AWAKE , LAERT HEENT S1 S2 RRR LUNGS CLEAR YAZMIN NO EDEMA Data 08/28/22 03:37 08/27/22 04:18 A&P Assessment and plan (1) ESRD (end stage renal disease): Plan 1. End-stage renal disease: Dialysis per [facility] schedule, plan for HD today Anemia: Hemoglobin low, status post transfusion today Sepsis: , blood cultures negative so far HTN : BP controlled anemia : s/p blood transfusions and el pt evaluated using audiovisula cart Time spent 25 min Attestations Medical Necessity Statement*: per medicine Coding Level of Care Code Acute Code for Chg Fwd Diagnoses ESRD (end stage renal disease) N18.6
[2022-08-28 11:22] VITALS: PULSE 69; RESP 16; O2SAT 97
[2022-08-28] MEDS: albuterol 2.5 mg/3 mL Neb INHALATION (11:22)
[2022-08-28] MEDS: bumetanide 1 mg Tablet 2 MG PO (11:31)
[2022-08-28] MEDS: docusate sodium 100 mg Capsule PO (11:31)
[2022-08-28] MEDS: hyDRALAzine 50 mg Tablet PO (11:31)
[2022-08-28] MEDS: metOLazone 5 MG Tablet PO (11:31)
[2022-08-28] MEDS: metoprolol succinate ER (24 HR) 50 mg Tablet PO (11:32)
[2022-08-28] MEDS: cholecalciferol (vitamin D3) 5,000 unit Tablet 5000 UNIT PO (11:32)
[2022-08-28] MEDS: aspirin 81 mg Chew Tablet PO (11:32)
[2022-08-28] MEDS: amiodarone 200 mg Tablet PO (11:32)
--- NOTE | 2022-08-28 14:05 | PM.DCS ---
Discharge Providers Date of Admission: 08/24/22 20:35 Date of Discharge: August 28, 2022 Attending Provider at Admission: Altagracia Klein MD Attending Provider at Discharge: Beckie Stafford MD Primary Care Provider: Sulma Zavala MD Diagnoses at Discharge Discharge Diagnosis (1) ESRD (end stage renal disease): Status: Acute Reason for Visit Reason for Visit: low hemoglobin Hospital Course Hospital Course Patient is a 62-year-old male with past medical history of aortic valve replacement, history of endocarditis for which she is on doxycycline suppression, presented to the hospital after being referred here from dialysis center for low hemoglobin. He received blood transfusion during the course of admission x2. Currently his hemoglobin is stable at 8.6. Source of anemia is thought to be related to CKD. An FOBT was ordered, however stool specimen was unable to be collected during the course of admission. Patient does have Hemoccult cards at home which she typically males every year for to get a test result. Encouraged to send in his Hemoccult for testing and follow-up with his PCP. If his Hemoccult is positive he may need a screening colonoscopy. Patient denies having had previous colonoscopies. Upon admission he was noted to have a fever of 102 Fahrenheit and then again of 100.6 Fahrenheit. Overall no clear source of infection has been found after evaluation. His chest x-ray showed right middle lobe infiltrate, however this is likely corresponding to a known right lower lobe mass for which she is currently under evaluation with pulmonary service. This is thought to be customer care representative of a possible mesothelioma which is undergoing work-up as an outpatient. Blood cultures including peripheral and port blood cultures remain negative. He did have significant debris and concretions around his HD catheter which were removed by the HD nurse. After removing this debris HD catheter site appears to be healthy. There are no signs of local cellulitis or abscess. UA was not customer care representative of a UTI. There were no other localizing signs or symptoms of infection at other sites. Patient was treated empirically with cefepime and vancomycin, however antibiotics are being discontinued at the time of discharge as no other infectious source has been found. Patient reports that in retrospect he had been feeling generalized weakness and arthralgias a week prior to being admitted. Suspect that his cause of fever and generalized malaise may have been viral in origin. He is counseled extensively today that should his fever recur or he starts to experience chills night sweats etc. he should come back to the emergency room for blood cultures and possibly ALEXANDER given his past history of endocarditis and further evaluation for culture-negative endocarditis possibly. Physical Exam Narrative: General: No acute distress, AO x3 HEENT: PERRLA, pupils bilaterally equal and reactive, pallors not present Chest: Normal vesicular breath sounds, no added sounds, equal good air entry bilaterally CVS: S1-S2 regular, no murmurs, no tachycardia, no gallops, no rubs Abdomen: Soft, nontender, no organomegaly, bowel sounds present Neuro: No focal deficits, no facial deformity, AO x3, power 5/5 in all limbs Discharge Data Studies Completed and Pending Completed Studies During Hospitalization Category Date Time Status XR chest 1V portable [id number] Stat Exams 08/24/22 16:26 Completed Pending at discharge Category Date Time Status Blood Culture Stat Lab 08/24/22 17:09 Results Blood Culture Stat Lab 08/25/22 15:22 Results Fecal Occult Blood [Immunochemical Fecal OCB] Routine Lab 08/28/22 08:54 Uncollected Radiology Impressions Chest X-Ray 08/24/22 16:26 IMPRESSION: 1. Mild patchy infiltrate and/or atelectasis lower right lung with small right effusion showing interval decrease or interval improvement with prior exam. Continued follow-up. 2. Postsurgical changes of aortic valve replacement again noted along with central venous catheter on the right. 3. Upper limits of normal cardiac size. Laboratory Results WBC 7.0 10^3/uL (4.0-10.0) 08/27/22 04:18 Corrected WBC Cancelled 08/25/22 06:30 RBC 2.37 10^6/uL (4.1-5.3) L 08/27/22 04:18 Hgb 8.6 g/dL (11.7-16.6) L 08/28/22 03:37 Hct 28.5 % (42.0-52.0) L 08/28/22 03:37 MCV 103.4 fl (80-94) H 08/27/22 04:18 MCH 31.6 pg (28.0-34.0) 08/27/22 04:18 MCHC 30.6 g/dL (30.0-36.0) 08/27/22 04:18 RDW 18.6 % (12.1-15.1) H 08/27/22 04:18 Plt Count 157 10^3/cmm (130-400) 08/27/22 04:18 MPV 9.2 fL (7.4-10.4) 08/27/22 04:18 Gran % Cancelled 08/25/22 06:30 Neut % (Auto) 56.2 % 08/27/22 04:18 Lymph % (Auto) 23.4 % 08/27/22 04:18 [place] % (Auto) 16.6 % 08/27/22 04:18 Eos % (Auto) 2.3 % 08/27/22 04:18 Baso % (Auto) 0.9 % 08/27/22 04:18 Neut # (Auto) 3.96 10^3/uL (1.8-7.7) 08/27/22 04:18 Lymph # (Auto) 1.7 10^3/uL (0.8-4.8) 08/27/22 04:18 [place] # (Auto) 1.2 10^3/uL (0.2-0.9) H 08/27/22 04:18 Eos # (Auto) 0.2 10^3/uL (0.0-0.8) 08/27/22 04:18 Baso # (Auto) 0.1 10^3/uL (0.0-0.1) 08/27/22 04:18 Absolute Gran (auto) Cancelled 08/25/22 06:30 Nucleated RBC % (auto) 0 % 08/27/22 04:18 Nucleated RBCs # 0.0 /100WBC 08/27/22 04:18 Sodium 137 mmol/L (136-145) 08/27/22 04:18 Potassium 4.2 mmol/L (3.5-5.1) 08/27/22 04:18 Chloride 99 mmol/L (98-107) 08/27/22 04:18 Carbon Dioxide 27 mmol/L (22-29) 08/27/22 04:18 Anion Gap 15.2 (5-19) 08/27/22 04:18 BUN 33 mg/dL (8-23) H 08/27/22 04:18 Creatinine 5.4 mg/dL (0.7-1.2) H 08/27/22 04:18 GFR Calculation 10.9 mL/min (90-130) L 08/27/22 04:18 Glucose 167 mg/dL (65-115) H 08/27/22 04:18 Calculated Osmolality 295 mOsm/kg (285-295) 08/27/22 04:18 Calcium 8.6 mg/dL (8.5-10.5) 08/27/22 04:18 Total Bilirubin 0.3 mg/dL (0.15-1.2) 08/27/22 04:18 AST 21 U/L (0-40) 08/27/22 04:18 ALT 10 U/L (0-41) 08/27/22 04:18 Alkaline Phosphatase 131 U/L (40-130) H 08/27/22 04:18 Total Protein 5.8 g/dL (6.6-8.7) L 08/27/22 04:18 Albumin 3.1 g/dL (3.5-5.2) L 08/27/22 04:18 Globulin 2.7 g/dL (1.3-4.6) 08/27/22 04:18 Urine Color Yellow (Yellow) 08/24/22 07:40 Urine Appearance Clear (CLEAR) 08/24/22 07:40 Urine pH 8 (5-7) H 08/24/22 07:40 Ur Specific [place] 1.015 (1.005-1.030) 08/24/22 07:40 Urine Protein 1+ (Negative) H 08/24/22 07:40 Urine Glucose (UA) Trace (Normal) H 08/24/22 07:40 Urine Ketones Negative (Negative) 08/24/22 07:40 Urine Blood Neg (Negative) 08/24/22 07:40 Urine Nitrate Negative (Negative) 08/24/22 07:40 Urine Bilirubin Neg (Negative) 08/24/22 07:40 Prot Sulfosalicylic Acd Positive (Negative) 08/24/22 07:40 Urine Urobilinogen Norm mg/dL (Negative) 08/24/22 07:40 Ur Leukocyte Esterase Negative (Negative) 08/24/22 07:40 Urine RBC 0-4 /hpf (0-2) H 08/24/22 07:40 Urine WBC 0-4 /hpf (0-5) H 08/24/22 07:40 Ur Squamous Epith Cells 0-4 /hpf (0-5) H 08/24/22 07:40 Amorphous Sediment Not Reportable 08/24/22 07:40 Urine Bacteria Trace /hpf (NONE) 08/24/22 07:40 Urine Mucus Trace /hpf 08/24/22 07:40 Nasal Influ A H1 2009 PCR Not detected (NOT DETECT) 08/26/22 18:40 Random Vancomycin 16.6 ug/mL (20.0-40.0) L 08/28/22 03:37 Adenovirus (PCR) Not detected (NOT DETECT) 08/26/22 18:40 C. pneumoniae DNA (PCR) Not detected (NOT DETECT) 08/26/22 18:40 Coronavirus 229E (PCR) Not detected (NOT DETECT) 08/26/22 18:40 Hep Bs Antigen Non-reactive (Nonreactive) 08/25/22 17:00 Human Metapneumovir PCR Not detected (NOT DETECT) 08/26/22 18:40 Influenza A (H1) PCR Not detected (NOT DETECT) 08/26/22 18:40 Influenza A (H3) PCR Not detected (NOT DETECT) 08/26/22 18:40 Influenza Type A (PCR) Not detected (NOT DETECT) 08/26/22 18:40 Influenza Type B (PCR) Not detected (NOT DETECT) 08/26/22 18:40 M. pneumoniae (PCR) Not detected (NOT DETECT) 08/26/22 18:40 Parainfluenza 1 (PCR) Not detected (NOT DETECT) 08/26/22 18:40 Parainfluenza 2 (PCR) Not detected (NOT DETECT) 08/26/22 18:40 Parainfluenza 3 (PCR) Not detected (NOT DETECT) 08/26/22 18:40 Parainfluenza 4 (PCR) Not detected (NOT DETECT) 08/26/22 18:40 RSV Type A (PCR) Not detected (NOT DETECT) 08/26/22 18:40 RSV Type B (PCR) Not detected (NOT DETECT) 08/26/22 18:40 Entero/Rhino (PCR) Not detected (NOT DETECT) 08/26/22 18:40 SARS-CoV-2 (PCR) Not detected (NOT DETECT) 08/26/22 18:40 Blood Type O Positive 08/24/22 20:00 Rho(D) Type Positive 08/24/22 20:00 Antibody Screen Negative 08/24/22 20:00 Crossmatch See Detail 08/24/22 20:00 Vitals Last Vital Signs Temp 98.2 F 08/28/22 11:02 Pulse 69 08/28/22 11:22 Resp 16 08/28/22 11:22 BP 131/67 08/28/22 11:02 Pulse Ox 97 08/28/22 11:22 O2 Del Method Room Air 08/28/22 11:22 O2 Flow Rate 2 08/26/22 11:41 Discharge Plan Discharge Patient Disposition: Home Condition: Stable Prescriptions: Continued cholecalciferol (vitamin D3) 125 mcg (5,000 unit) capsule 125 mcg PO DAILY bumetanide 2 mg tablet 2 mg PO BID doxycycline hyclate 100 mg capsule 100 mg PO QAM tramadol 50 mg tablet 50 mg PO Q4H PRN (Reason: Pain) torsemide 100 mg tablet 100 mg PO DAILY hydralazine 50 mg tablet 50 mg PO TID amiodarone 200 mg tablet 200 mg PO DAILY Qty: 30 5RF albuterol sulfate [Ventolin HFA] 90 mcg/actuation HFA aerosol inhaler 1 inh inhalation QID PRN (Reason: shortness of breath or wheezing) Qty: 8.5 3RF docusate sodium [Stool Softener] 100 mg Capsule 100 mg PO DAILY aspirin 81 mg Tablet,Chewable 81 mg PO DAILY RenaPlex-D 800 mcg-12.5 mg -2,000 unit Tablet 1 tab PO BEDTIME metoprolol succinate 50 mg tablet extended release 24 hr 50 mg PO BID lisinopril 20 mg tablet 20 mg PO BEDTIME oxycodone-acetaminophen 5-325 mg tablet 0.5 - 1 tab PO Q4H MDD ONE AND ONE-HALF TABS PRN (Reason: Pain) ipratropium-albuterol 0.5 mg-3 mg(2.5 mg base)/3 mL solution for nebulization 3 ml INHALATION Q6H PRN (Reason: Shortness Of Breath) metolazone 5 mg tablet 5 mg PO QAM Vitamin B-12 1,000 mcg tablet 1,000 mcg PO DAILY budesonide 0.5 mg/2 mL suspension for nebulization 0.5 mg inhalation QPM Discharge Orders: Discharge Order (Routine); Ordered 08/28/22 Ordered By: Beckie Stafford Referrals: Sulma Zavala MD [Primary Care Provider] - Discharge Diet: Usual diet Patient Instructions: Dialysis Diet (DC), Hemodialysis (DC), GI Discharge Instructions, Opioid Safety, Pain Management Discharge Attestations Time Spent in Discharge Care*: greater than 30 min Quality Metrics Clinical Quality Measures [ No reported AMI, CVA or VTE this stay] Coding Level of Care Code Acute Code for Chg Fwd Diagnoses ESRD (end stage renal disease) N18.6
== END 2022-08-28 15:11 | disposition home or self-care (01) | DRG 682 ==
LOC: ER 20:04 → MEDSURG 20:35
PROVIDERS: Hospitalist; Surgery; Admitting Provider Internal Medicine; Emergency Provider Family Medicine; PCP Family Medicine; Visit Provider Student in an Organized Health Care Education/Training Program
DX: I12.0 Hypertensive chronic kidney disease with stage 5 chronic kidney disease or end stage renal disease (principal); N18.6 End stage renal disease; E11.22 Type 2 diabetes mellitus with diabetic chronic kidney disease; Z99.2 Dependence on renal dialysis; B97.89 Other viral agents as the cause of diseases classified elsewhere; Z95.4 Presence of other heart-valve replacement; R50.9 Fever, unspecified; Z79.2 Long term (current) use of antibiotics; D63.1 Anemia in chronic kidney disease; Z79.891 Long term (current) use of opiate analgesic; Z79.51 Long term (current) use of inhaled steroids; Z79.82 Long term (current) use of aspirin; F17.210 Nicotine dependence, cigarettes, uncomplicated; E11.51 Type 2 diabetes mellitus with diabetic peripheral angiopathy without gangrene; G47.33 Obstructive sleep apnea (adult) (pediatric); E78.5 Hyperlipidemia, unspecified; K43.9 Ventral hernia without obstruction or gangrene; J44.9 Chronic obstructive pulmonary disease, unspecified
CPT/HCPCS: 12345; 36415; 36430; 71045; 80048; 80053; 80202; 81001; 85014; 85018; 85025; 86850; 86900; 86920; 87040; 87340; 87486; 87581; 87633; 90935; 93005; 94640; 94664; 96360; 96361; 96365; 96367; 99284; 99285; 99291; J0692; J1644; J2405; J3370; J7030; J7050; J7613; J7626; P9016

== ENCOUNTER → 2022-09-02 11:02 | Outpatient (BNVA) | payer MEDICARE, SELFPAY | PROVIDERS: PCP Family Medicine; Visit Provider Thoracic Surgery (Cardiothoracic Vascular Surgery) | DX: E11.52 Type 2 diabetes mellitus with diabetic peripheral angiopathy with gangrene (principal); L97.411 Non-pressure chronic ulcer of right heel and midfoot limited to breakdown of skin | CPT/HCPCS: 97597; A6250 ==

== ENCOUNTER → 2022-09-08 09:44 | Outpatient (BNVA) | payer MEDICARE, SELFPAY | PROVIDERS: PCP Family Medicine; Visit Provider Podiatrist Foot & Ankle Surgery | DX: I73.9 Peripheral vascular disease, unspecified (principal); L60.3 Nail dystrophy; L84 Corns and callosities; E11.42 Type 2 diabetes mellitus with diabetic polyneuropathy; Z89.421 Acquired absence of other right toe(s); Z79.4 Long term (current) use of insulin; E11.621 Type 2 diabetes mellitus with foot ulcer; L97.513 Non-pressure chronic ulcer of other part of right foot with necrosis of muscle | CPT/HCPCS: 11055; 11721 ==

== ENCOUNTER → 2022-09-09 10:47 | Outpatient (BNVA) | payer MEDICARE, SELFPAY | PROVIDERS: PCP Family Medicine; Visit Provider Thoracic Surgery (Cardiothoracic Vascular Surgery) | DX: E11.52 Type 2 diabetes mellitus with diabetic peripheral angiopathy with gangrene (principal); L97.412 Non-pressure chronic ulcer of right heel and midfoot with fat layer exposed | CPT/HCPCS: 11042; A6250 ==

== ENCOUNTER → 2022-09-16 10:40 | Outpatient (BNVA) | payer MEDICARE, SELFPAY | PROVIDERS: PCP Family Medicine; Visit Provider Thoracic Surgery (Cardiothoracic Vascular Surgery) | DX: E11.52 Type 2 diabetes mellitus with diabetic peripheral angiopathy with gangrene (principal); L97.411 Non-pressure chronic ulcer of right heel and midfoot limited to breakdown of skin | CPT/HCPCS: 97597; A6250 ==

== ENCOUNTER → 2022-09-23 10:49 | Outpatient (BNVA) | payer MEDICARE, SELFPAY | PROVIDERS: PCP Family Medicine; Visit Provider Thoracic Surgery (Cardiothoracic Vascular Surgery) | DX: E11.52 Type 2 diabetes mellitus with diabetic peripheral angiopathy with gangrene (principal); L97.411 Non-pressure chronic ulcer of right heel and midfoot limited to breakdown of skin | CPT/HCPCS: 97597; A6219 ==

== ENCOUNTER → 2022-09-30 10:49 | Outpatient (BNVA) | payer MEDICARE, SELFPAY | PROVIDERS: PCP Family Medicine; Visit Provider Thoracic Surgery (Cardiothoracic Vascular Surgery) | DX: E11.52 Type 2 diabetes mellitus with diabetic peripheral angiopathy with gangrene (principal); L97.411 Non-pressure chronic ulcer of right heel and midfoot limited to breakdown of skin | CPT/HCPCS: 97597; A6021 ==

== ENCOUNTER → 2022-10-07 10:53 | Outpatient (BNVA) | payer MEDICARE, SELFPAY | PROVIDERS: PCP Family Medicine; Visit Provider Thoracic Surgery (Cardiothoracic Vascular Surgery) | DX: E11.52 Type 2 diabetes mellitus with diabetic peripheral angiopathy with gangrene (principal); L97.411 Non-pressure chronic ulcer of right heel and midfoot limited to breakdown of skin | CPT/HCPCS: 97597 ==

== ENCOUNTER → 2022-10-14 10:45 | Outpatient (BNVA) | payer MEDICARE, SELFPAY | PROVIDERS: PCP Family Medicine; Visit Provider Thoracic Surgery (Cardiothoracic Vascular Surgery) | DX: E11.52 Type 2 diabetes mellitus with diabetic peripheral angiopathy with gangrene (principal); L97.411 Non-pressure chronic ulcer of right heel and midfoot limited to breakdown of skin | CPT/HCPCS: 97597; A6219 ==

== ENCOUNTER → 2022-10-21 09:16 | Outpatient (BNVA) | payer MEDICARE, SELFPAY | PROVIDERS: PCP Family Medicine; Visit Provider Thoracic Surgery (Cardiothoracic Vascular Surgery) | DX: E11.52 Type 2 diabetes mellitus with diabetic peripheral angiopathy with gangrene (principal); L97.412 Non-pressure chronic ulcer of right heel and midfoot with fat layer exposed | CPT/HCPCS: 11042; A6219 ==

== ENCOUNTER → 2022-10-27 08:09 | Outpatient (BNVA) | payer MEDICARE, SELFPAY | PROVIDERS: PCP Family Medicine; Visit Provider Podiatrist Foot & Ankle Surgery | DX: I73.9 Peripheral vascular disease, unspecified (principal); E11.42 Type 2 diabetes mellitus with diabetic polyneuropathy; Z79.4 Long term (current) use of insulin; M21.41 Flat foot [pes planus] (acquired), right foot; M21.42 Flat foot [pes planus] (acquired), left foot; M20.41 Other hammer toe(s) (acquired), right foot; M20.42 Other hammer toe(s) (acquired), left foot | CPT/HCPCS: 99214 ==

== ENCOUNTER → 2022-10-28 10:45 | Outpatient (BNVA) | payer MEDICARE, SELFPAY | PROVIDERS: PCP Family Medicine; Visit Provider Thoracic Surgery (Cardiothoracic Vascular Surgery) | DX: E11.52 Type 2 diabetes mellitus with diabetic peripheral angiopathy with gangrene (principal); L97.412 Non-pressure chronic ulcer of right heel and midfoot with fat layer exposed | CPT/HCPCS: 11042 ==

== ENCOUNTER → 2022-11-03 09:56 | Outpatient (BNVA) | payer MEDICARE, SELFPAY | PROVIDERS: PCP Family Medicine; Visit Provider Surgery | DX: K92.1 Melena (principal) | CPT/HCPCS: 99204 ==

== ENCOUNTER → 2022-11-04 10:48 | Outpatient (BNVA) | payer MEDICARE, SELFPAY | PROVIDERS: PCP Family Medicine; Visit Provider Thoracic Surgery (Cardiothoracic Vascular Surgery) | DX: E11.52 Type 2 diabetes mellitus with diabetic peripheral angiopathy with gangrene (principal); L97.411 Non-pressure chronic ulcer of right heel and midfoot limited to breakdown of skin | CPT/HCPCS: 97597 ==

== ENCOUNTER → 2022-11-11 10:35 | Outpatient (BNVA) | payer MEDICARE, SELFPAY | PROVIDERS: PCP Family Medicine; Visit Provider Thoracic Surgery (Cardiothoracic Vascular Surgery) | DX: E11.52 Type 2 diabetes mellitus with diabetic peripheral angiopathy with gangrene (principal); L97.411 Non-pressure chronic ulcer of right heel and midfoot limited to breakdown of skin | CPT/HCPCS: 97597 ==

== ENCOUNTER → 2022-11-18 10:53 | Outpatient (BNVA) | payer MEDICARE, SELFPAY | PROVIDERS: PCP Family Medicine; Visit Provider Thoracic Surgery (Cardiothoracic Vascular Surgery) | DX: I96 Gangrene, not elsewhere classified (principal); L97.411 Non-pressure chronic ulcer of right heel and midfoot limited to breakdown of skin | CPT/HCPCS: 97597 ==

== ENCOUNTER → 2022-11-25 10:48 | Outpatient (BNVA) | payer MEDICARE, SELFPAY | PROVIDERS: PCP Family Medicine; Visit Provider Thoracic Surgery (Cardiothoracic Vascular Surgery) | DX: E11.52 Type 2 diabetes mellitus with diabetic peripheral angiopathy with gangrene (principal); L97.411 Non-pressure chronic ulcer of right heel and midfoot limited to breakdown of skin | CPT/HCPCS: 97597 ==

== ENCOUNTER 2022-11-26 11:41 | Outpatient (CLI) | payer MEDICARE, SELFPAY ==
--- NOTE | 2022-11-26 12:00 | CT_ITS ---
WS: [id number] CT chest wo con [id number] HISTORY: follow up on RM L opacity TECHNIQUE: Axial imaging performed through the thorax. Coronal and sagittal reformats are submitted. All CT scans at [facility] use at least one of these dose optimization techniques: automated exposure control; mA and/or kV adjustment per patient size (includes targeted exams where dose is mat ched to clinical indication); or iterative reconstruction. CONTRAST: None DLP: 574.23 mGy.cm COMPARISON: Prior CT 07/16/2022. Radiograph 08/24/2022 Lungs and central airway: Improved aeration throughout both lungs since 07/16/2022. There is less pulmo nary venous congestion. No focal consolidations or pneumonia. No RIGHT middle lobe opacification. Pleura: There is mild right-sided pleural thickening and a very small residual pleural effusion at th e lung base. Overall improved since 07/16/2022. There are a few small calcifications associated with th e RIGHT pleura. Heart and pericardium: Heart is top normal size. Mitral valve replacement. Coronary artery calcificat ions. Mediastinum and payton: No mediastinum or hilar adenopathy. Vessels: Moderate atherosclerotic plaque within the aorta. Normal sized pulmonary artery. There is a dialysis catheter entering via the RIGHT jugular vein with tip in the distal SVC at the caval junctio n. Chest wall and lower neck: Prior CABG. There is a large subxiphoid, ventral abdominal wall hernia. Th is hernia contains transverse colon. There is no obstruction. Orifice of the hernia is approximately 8 cm. Upper abdomen: Subxiphoid ventral abdominal wall hernia as described above. No adrenal mass. Supraren al aortic calcifications. Small portion of the LEFT kidney is visualized and the kidney appears atrop hied. Osseous structures: No destructive process. IMPRESSION: 1. No RIGHT middle lobe mass or opacification. 2. Improved RIGHT pleural effusion. There is a very tiny persistent RIGHT pleural effusion with pleur al thickening. 3. Status post CABG and aortic valve replacement. 4. Subxiphoid large ventral abdominal wall hernia containing transverse colon. No obstruction.
== END 2022-11-26 11:42 | disposition home or self-care (01) ==
LOC: RAD 11:44
PROVIDERS: PCP Family Medicine; Visit Provider Internal Medicine Pulmonary Disease
DX: R06.02 Shortness of breath (principal); Z87.891 Personal history of nicotine dependence; J90 Pleural effusion, not elsewhere classified; Z95.5 Presence of coronary angioplasty implant and graft; Z95.2 Presence of prosthetic heart valve; K43.9 Ventral hernia without obstruction or gangrene
CPT/HCPCS: 71250; 99204

== ENCOUNTER → 2022-12-02 10:41 | Outpatient (BNVA) | payer MEDICARE, SELFPAY | PROVIDERS: PCP Family Medicine; Visit Provider Nurse Practitioner Family | DX: E11.52 Type 2 diabetes mellitus with diabetic peripheral angiopathy with gangrene (principal); L97.411 Non-pressure chronic ulcer of right heel and midfoot limited to breakdown of skin | CPT/HCPCS: 97597 ==

== ENCOUNTER → 2022-12-10 10:00 | Outpatient (BNVA) | payer MEDICARE, SELFPAY | PROVIDERS: PCP Family Medicine; Visit Provider Internal Medicine Cardiovascular Disease | DX: I34.0 Nonrheumatic mitral (valve) insufficiency (principal); Z95.4 Presence of other heart-valve replacement; I48.91 Unspecified atrial fibrillation; I33.0 Acute and subacute infective endocarditis; B95.7 Other staphylococcus as the cause of diseases classified elsewhere; E78.2 Mixed hyperlipidemia; E11.618 Type 2 diabetes mellitus with other diabetic arthropathy; Z79.4 Long term (current) use of insulin; E11.621 Type 2 diabetes mellitus with foot ulcer; L97.513 Non-pressure chronic ulcer of other part of right foot with necrosis of muscle; I12.0 Hypertensive chronic kidney disease with stage 5 chronic kidney disease or end stage renal disease; E11.22 Type 2 diabetes mellitus with diabetic chronic kidney disease; N18.6 End stage renal disease; Z99.2 Dependence on renal dialysis; F17.210 Nicotine dependence, cigarettes, uncomplicated | CPT/HCPCS: 99214 ==

== ENCOUNTER 2022-12-14 03:52 | Inpatient (IN) | payer MEDICARE, SELFPAY ==
[2022-12-14] VITALS (194 sets, daily range): BP systolic 93–196; BP diastolic 47–115; PULSE 57–100; RESP 13–34; TEMP 36.4–37.3; O2SAT 25–100; BMI 36.9
--- NOTE | 2022-12-14 03:55 | ECG_ITS ---
[facility] Test Date: 2022-12-14 Pat Name: Richard Huffman Department: Room: ICU10 Gender: Male Product Lister: : [id number] Requested By: Nickolas Haque Order Number: [id number] Kisha MD: Shayan Stout M.D. Measurements Intervals Marty Rate: 59 P: 0 MN: 0 QRS: -56 QRSD: 172 T: 30 QT: 515 QTc: 510 Interpretive Statements ATRIAL FIBRILLATION WITH SLOW VENTRICULAR RESPONSE RIGHT BUNDLE BRANCH BLOCK [120+ ms QRS DURATION, UPRIGHT V1, 40+ ms S IN I/aVL/V4/V5/V6] LEFT ANTERIOR FASCICULAR BLOCK [QRS AXIS <= -45, QR IN I, RS IN II] POSSIBLE LEFT VENTRICULAR HYPERTROPHY [VOLTAGE CRITERIA PLUS LAE OR QRS WIDENING] Compared to ECG 08/21/2022 17:20:43 Left anterior fascicular block now present Sinus rhythm no longer present Left-axis deviation no longer present ST (T wave) deviation no longer present Myocardial infarct finding no longer present Electronically Signed On 12-14-2022 8:20:20 CDT by Shayan Stout M.D. [email or web address]/store/NU/[id number]/[id number] f
--- NOTE | 2022-12-14 04:01 | XRR_ITS ---
PROCEDURE INFORMATION: Exam: XR Chest Exam date and time: 12/14/2022 4:14 AM Age: 62 years old Clinical indication: Pain; On breathing; Prior surgery; Surgery date: 6+ months; Surgery type: Valve replacement; Additional info: SUSAN lino TECHNIQUE: Imaging protocol: Radiologic exam of the chest. Views: 1 view. COMPARISON: CT chest wo con [id number] 11/26/2022 12:27 PM FINDINGS: Lungs: Mild venous congestion. Hazy lung base opacities and small effusions again seen. Pleural spaces: No pneumothorax. Heart/Mediastinum: The heart remains enlarged. CABG, atherosclerosis, TAVR. Vasculature: Right IJ PermCath unchanged. Bones/joints: Unremarkable. XR/XR chest 1V portable [id number] IMPRESSION: Stable chest from 08/24/2022 with evidence of mild chronic CHF or positive fluid balance.
[2022-12-14] MEDS: nitroglycerin 1 gm/inch oint Pkt 1 INCH TOPICAL (04:07)
[2022-12-14 04:09] LABS: Basophils # 0.1 10^3/uL (0.0-0.1); Basophils % 0.6 %; Eosinophils % 0.3 %; Hematocrit 22.9 % (37-53); Lymphocytes # 1.7 10^3/uL (0.8-4.8); Mean Corpuscular HGB Conc 31.4 g/dL (30-55); Mean Corpuscular Hemoglobin 33.3 pg (27-33); Mean Platelet Volume 10.5 fL (7.4-10.4); Monocytes # 0.8 10^3/uL (0.2-0.9); Monocytes % 6.3 %; Neutrophils # 9.35 10^3/uL (1.8-7.7); Neutrophils % 77.5 %; Nucleated Red Blood Cells # 0.1 /100WBC; Nucleated Red Blood Cells % 0.4 %; Platelet Count 224 10^3/cmm (157-399); Red Blood Count 2.16 10^6/uL (3.85-5.65); Red Cell Distribution Width 16.5 % (12.1-15.1); White Blood Count 12.07 10^3/uL (3.29-11.43)
--- NOTE | 2022-12-14 04:14 | ED_ITS ---
HPI - Arrhythmia/Palpitations General: Chief Complaint: Arrhythmia/Palpitations Stated Complaint: CP Time Seen by Provider: 12/14/22 04:01 History of Present Illness: 62-year-old male presenting with chest discomfort. He notes that this started when he was sitting in his chair around 2 AM. He is having some trouble breathing. EMS was called, and the patient was found to be in atrial fibrillation. He appeared to them to have a run of a wide-complex arrhythmia, and a bolus of amiodarone was started. It did not get infused, as they were close to the hospital at that point. He continues to complain of chest pressure and shortness of breath. He relates to me that he has a bovine valve, and another valve that his doctor has told him is bad. He is a dialysis patient. He says that on Wednesday 4 L were taken off, but he still is above his weight. He has been coughing. Productive of clear to white sputum. No fever. 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 History of renal dialysis Hyperlipidemia Hypertension Intermittent palpitations XI (obstructive sleep apnea) PVD (peripheral vascular disease) Severe tobacco use disorder Surgical History H/O aortic valve replacement H/O aortic valve replacement with tissue graft H/O foot surgery Family History Grandmother Diabetes Grandfather Diabetes Denies family history of CAD (coronary artery disease) Clotting disorder Dementia Chronic kidney disease (CKD) Suicide Anesthesia complication Bleeding disorder Lung disease Cancer Stroke Social History Smoking and tobacco status: current every day smoker cigarettes Packs smoked per day: 1 Years cigarettes smoked: 46 Alcohol intake: never Substance/Drug Use: never Lives independently: Yes (with girlfriend) Household members: significant other Marital status: Single service: No 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al status: disabled 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 Pets and animals: Yes Special araceli needs: No Agree to transfusion: Yes Physical Exam Const: GENERAL APPEARANCE: cooperative and ill appearing; not frail appearing HENMT: COMMON NORMALS: normocephalic, atraumatic and Normal external nose present HEAD & SCALP: normocephalic and atraumatic FACE & SINUS: normal facial exam and face symmetric NOSE: Normal external nose present Eye: COMMON NORMALS: Equal, round and reactive pupils present and EOMs intact bilaterally PUPIL: Yes Equal, round and reactive pupils present Neck/C-Spine: GENERAL: Yes trachea midline Chest: CHEST: Yes Symmetrical chest wall rise Resp: COMMON NORMALS: normal respiratory effort, No retractions, No use of accessory muscles and clear to auscultation bilaterally AUSCULTATION: clear to auscultation bilaterally Cardio: COMMON NORMALS: regular rate RATE: regular rate RHYTHM: abnormal rhythm irregularly irregular GI: OTHER: ventral hernia Extremity: GENERAL: Yes edema Neuro: KELI COMA SCALE: document GCS findings [place] coma scale eye opening: Spontaneous Keli coma scale verbal response: Orientated [place] coma scale motor response: Obey commands [place] coma scale total score: 15 SENSORY EXAM: Yes extremities (intact) Psych: COMMON NORMALS: speech normal SPEECH: Yes normal speech Skin: COMMON NORMALS: no rashes or lesions noted GENERAL SKIN EXAM: no rashes or lesions noted Course 2 Vital Signs: Vital signs: Vital Signs Temperature 97.6 F 12/14/22 03:53 Pulse Rate 61 12/14/22 04:49 Respiratory Rate 22 H 12/14/22 04:49 Blood Pressure 115/89 12/14/22 04:49 Pulse Oximetry 25 L 12/14/22 04:49 Oxygen Delivery Me thod Nasal Cannula 12/14/22 04:49 Oxygen Flow Rate 2 12/14/22 04:49 MDM - Arrhythmia/Palpitations Medical Decision Making Chest pressure and shortness of breath and dialysis patient with valvular disease, and multiple other medical problems. His hemoglobin is down to 7.2. Creatinine is 7.7. Potassium is 7.3. Magnesium is high as well as phosphorus. Blood pressures improved with Nitropaste. Chest pressure is not as severe. Saturations have been 95% or so on 2 L. Heart rate is 65 currently, atrial fibrillation with large right bundle branch block. EKG shows A-fib with right bundle branch block, left anterior fascicular block, and normal axis. No definite ST wave changes. The patient has no history of coronary disease. He has received bicarbonate, insulin, glucose for hyperkalemia. He will require dialysis this morning. I spoken with the hospitalist who will see the patient. We have a call out to nephrology. Lab Data 12/14/22 03:35 12/14/22 04:26 Laboratory Results WBC 12.07 10^3/uL (3.29-11.43) H 12/14/22 03:35 RBC 2.16 10^6/uL (3.85-5.65) L 12/14/22 03:35 Hgb 7.20 g/dL (11.27-16.99) L 12/14/22 03:35 Hct 22.9 % (37-53) L 12/14/22 03:35 MCV 106.0 fl (82-101) H 12/14/22 03:35 MCH 33.3 pg (27-33) H 12/14/22 03:35 MCHC 31.4 g/dL (30-55) 12/14/22 03:35 RDW 16.5 % (12.1-15.1) H 12/14/22 03:35 Plt Count 224 10^3/cmm (157-399) 12/14/22 03:35 MPV 10.5 fL (7.4-10.4) H 12/14/22 03:35 Neut % (Auto) 77.5 % 12/14/22 03:35 Lymph % (Auto) 14.0 % 12/14/22 03:35 [place] % (Auto) 6.3 % 12/14/22 03:35 Eos % (Auto) 0.3 % 12/14/22 03:35 Baso % (Auto) 0.6 % 12/14/22 03:35 Neut # (Auto) 9.35 10^3/uL (1.8-7.7) H 12/14/22 03:35 Lymph # (Auto) 1.7 10^3/uL (0.8-4.8) 12/14/22 03:35 [place] # (Auto) 0.8 10^3/uL (0.2-0.9) 12/14/22 03:35 Eos # (Auto) 0.0 10^3/uL (0.0-0.8) 12/14/22 03:35 Baso # (Auto) 0.1 10^3/uL (0.0-0.1) 12/14/22 03:35 Nucleated RBC % (auto) 0.4 % 12/14/22 03:35 Nucleated RBCs # 0.1 /100WBC 12/14/22 03:35 PT 14.50 SECONDS (12.1-14.9) 12/14/22 03:35 INR 1.09 (0.8-1.2) 12/14/22 03:35 APTT 30.6 SECONDS (23.9-36.7) 12/14/22 03:35 Sodium 132 mmol/L (136-145) L 12/14/22 04:26 Potassium 7.3 mmol/L (3.5-5.1) H* 12/14/22 04:26 Chloride 92 mmol/L (98-107) L 12/14/22 04:26 Carbon Dioxide 23 mmol/L (22-29) 12/14/22 04:26 Anion Gap 24.3 (5-19) H 12/14/22 04:26 BUN 98 mg/dL (8-23) H* D 12/14/22 04:26 Creatinine 7.7 mg/dL (0.7-1.2) H* 12/14/22 04:26 GFR Calculation 7.2 mL/min (90-130) L 12/14/22 04:26 Glucose 195 mg/dL (65-115) H 12/14/22 04:26 Calculated Osmolality 310 mOsm/kg (285-295) H 12/14/22 04:26 Lactic Acid 2.8 mmol/L (0.5-2.2) H 12/14/22 04:14 Calcium 10.5 mg/dL (8.5-10.5) 12/14/22 04:26 Phosphorus 8.5 mg/dL (2.5-4.5) H* 12/14/22 04:26 Magnesium 2.6 mg/dL (1.7-2.3) H 12/14/22 04:26 Total Bilirubin 0.8 mg/dL (0.15-1.2) 12/14/22 04:26 AST 60 U/L (0-40) H 12/14/22 04:26 ALT 49 U/L (0-41) H 12/14/22 04:26 Alkaline Phosphatase 139 U/L (40-130) H 12/14/22 04:26 Troponin T Baseline 208 ng/L (0-15) H* 12/14/22 03:35 C-Reactive Protein 18.4 mg/L (0.0-4.9) H 12/14/22 04:26 Total Protein 6.3 g/dL (6.6-8.7) L 12/14/22 04:26 Albumin 3.8 g/dL (3.5-5.2) 12/14/22 04:26 Globulin 2.5 g/dL (1.3-4.6) 12/14/22 04:26 XR interpretation done by ED provider, pending radiology final review Critical Care Time Critical Care Time: Critical Care Time: Yes Total Critical Care Time: 35 Attestation: This case had a high probability of a clinically significant, sudden, or life threatening deterioration of this patient's condition which required my full and direct attention, intervention and personal management. Time is independent of any procedures performed Discharge Plan Discharge Patient Disposition: Admitted As Inpatient Clinical Impression: Anemia, Atrial fibrillation by electrocardiogram, Acute exacerbation of congestive heart failure, ESRD on hemodialysis, Acute hyperkalemia Condition: Serious Coding Level of Care Code ED Water Hyd[employer] Installer for Lillian Anne
[2022-12-14 04:23] LABS: INR 1.09 (0.8-1.2)
[2022-12-14 04:24] LABS: Partial Thromboplastin Time 30.6 SECONDS (23.9-36.7)
[2022-12-14 04:35] LABS: Lactic Sepsis W/Reflex 2.8 mmol/L (0.5-2.2)
[2022-12-14 04:37] LABS: Troponin(5th) Baseline 208 ng/L (0-15)
[2022-12-14 04:48] LABS: Alanine Aminotransferase 49 U/L (0-41); Albumin Level 3.8 g/dL (3.5-5.2); Alkaline Phosphatase 139 U/L (40-130); Anion Gap 24.3 (5-19); Aspartate Amino Transferase 60 U/L (0-40); C Reactive Protein 18.4 mg/L (0.0-4.9); Calcium 10.5 mg/dL (8.5-10.5); Carbon Dioxide 23 mmol/L (22-29); Chloride 92 mmol/L (98-107); Globulin 2.5 g/dL (1.3-4.6); Glomerular Filtration Rate 7.2 mL/min (90-130); Glucose 195 mg/dL (65-115); Magnesium 2.6 mg/dL (1.7-2.3); Osmolality Calculated 310 mOsm/kg (285-295); Sodium 132 mmol/L (136-145); Total Bilirubin 0.8 mg/dL (0.15-1.2); Total Protein 6.3 g/dL (6.6-8.7)
[2022-12-14 04:52] LABS: Potassium 7.3 mmol/L (3.5-5.1)
[2022-12-14 04:53] LABS: Blood Urea Nitrogen 98 mg/dL (8-23); Phosphorus 8.5 mg/dL (2.5-4.5)
[2022-12-14 05:13] LABS: Urine Appearance Hazy (CLEAR); Urine Color Yellow (Yellow); pH Urine 9 (5-7)
[2022-12-14 05:13] LABS: SARS Covid-2 Antigen negative (Negative)
[2022-12-14 05:14] LABS: Add Urine Microscopic? YES; Bilirubin Urine Neg (Negative); Blood Urine 2+ (Negative); Glucose Urine UA 2+ (Normal); Ketones Urine Negative (Negative); Leukocyte Esterase Urine 1+ (Negative); Nitrate Urine Negative (Negative); Protein Urine 3+ (Negative); RBC Urine 0-4 /hpf (0-2); Sulfosalicylic Acid Urine Negative (Negative); Urobilinogen Urine Neg (Negative)
[2022-12-14] MEDS: sodium bicarbonate 8.4% 1 mEq/mL 50mL Syr 50 MEQ IVP (05:14)
[2022-12-14] MEDS: insulin regular-human 100 units/1 mL 10 UNIT IVP (05:14)
[2022-12-14] MEDS: dextrose 50% syringe 50 mL IVP (05:14)
[2022-12-14 05:15] LABS: Add Urine Culture? Yes; Amorphous Sediment Urine TRACE /hpf; Bacteria Urine TRACE /hpf; WBC Urine 25-40 /hpf (0-5)
[2022-12-14 05:28] LABS: Glucose Point of Care 220 mg/dL (70-110)
[2022-12-14 05:45] LABS: Glucose Point of Care 304 mg/dL (70-110)
--- NOTE | 2022-12-14 05:53 | P.HP_ITS ---
Providers/Chief Complaint Admitting Physician: Desean Montes MD Primary Care Provider: Christofer Varghese MD Chief Complaint: CP History of Present Illness Richard Huffman is a 62 year old male with a past history of CAD G, history of endocarditis, history of aortic valve replacement with tissue graft, history of atrial fibrillation, hyperlipidemia, hypertension, current smoker, COPD, XI, COPD, diabetes, being evaluated by pulmonary for mesothelioma, recently being evaluated for moderate to severe mitral valve regurg, who presents to [facility] due to chest pain shortness of breath. Patient tells me that he had dialysis on Wednesday, they take 4 L fluid off and he was doing well, no issues on Wednesday, no issues with Wednesday, he actually woke up this morning at about 2 AM, with chest pain and shortness of breath, productive cough, no fevers, chills, no lightheadedness, no dizziness. Due to persistence of the chest pain and shortness of breath he came to the emergency room. No hemoptysis. Denies of have bilateral leg swelling. No abdominal pain. When EMS was called out to home, they had found him in atrial fibrillation, and what appeared to be a wide-complex arrhythmia, he was given a bolus of amiodarone, but it did not get confused, they were close to the hospital at that point, he continued to complain of chest pain shortness of breath when he arrived, EKG on arrival showed atrial fibrillation, with rate of 65, potassium 7.3, given insulin, D50, bicarb, currently alert awake, chest pain-free, no shortness of breath Review of Systems Const: Reports: fatigue and malaise; Denies: fever(s) or chills Eyes: Denies: change in vision Card: Reports: chest pain Resp: Reports: dyspnea GI: Denies: abdominal pain : Denies: flank pain or difficulty urinating Musc: Denies: neck pain or back pain Skin/Breast: Denies: rash Neuro: Denies: headache(s), numbness in extremities, weakness in extremities, sensory changes, dizziness or Slurred speech present Endo: Denies: polydipsia Medications/Allergies Home Medications Medication Instructions Recorded Confirmed Last Taken Type bumetanide 2 mg tablet 2 mg PO BID 11/28/20 11/03/22 08/21/22 History aspirin 81 mg chewable tablet 81 mg PO DAILY 01/26/22 11/03/22 08/21/22 History vit B,C-folic ac 800 mcg-zinc 12.5 1 tab PO BEDTIME 01/26/22 11/03/22 08/21/22 History mg-selen-D3 2,000 unit-vit E tablet (RenaPlex-D) cholecalciferol (vitamin D3) 125 125 mcg PO DAILY 05/26/22 11/03/22 08/21/22 History mcg (5,000 unit) capsule hydralazine 50 mg tablet 50 mg PO TID 05/28/22 11/03/22 08/21/22 History torsemide 100 mg tablet 100 mg PO DAILY 05/28/22 11/03/22 08/21/22 History tramadol 50 mg tablet 50 mg PO Q4H PRN Pain 05/28/22 11/03/22 Unknown History metoprolol succinate 50 mg 50 mg PO BID 07/15/22 11/03/22 08/21/22 History tablet,extended release 24 hr oxycodone-acetaminophen 5 mg-325 0.5 - 1 tab PO Q4H PRN Pain 07/15/22 11/03/22 Unknown History mg tablet cyanocobalamin (vitamin B-12) 1,000 mcg PO DAILY 08/25/22 11/03/22 Unknown Hist ory 1,000 mcg tablet (Vitamin B-12) metolazone 5 mg tablet 5 mg PO QAM 08/25/22 11/03/22 Unknown History docusate sodium 100 mg capsule 100 mg PO BID 10/01/22 11/03/22 Unknown History (Stool Softener) hydrocodone 5 mg-acetaminophen 325 1 tab PO BID PRN 10/01/22 11/03/22 Unknown History mg tablet budesonide 0.5 mg/2 mL suspension 0.5 mg (2 mL) inhalation QPM #60 mL 10/13/22 11/03/22 Unknown Rx for nebulization ipratropium 0.5 mg-albuterol 3 mg 3 ml inhalation Q6H PRN Shortness 10/13/22 11/03/22 Unknown Rx (2.5 mg base)/3 mL nebulization Of Breath #180 mL soln escitalopram oxalate 10 mg tablet 10 mg PO DAILY #60 tabs 10/20/22 11/03/22 Unknown Rx (Lexapro) ropinirole 1 mg tablet 1 mg PO DAILY #90 tabs 10/20/22 11/03/22 Unknown Rx Diabetic shoes #1 ea 10/27/22 11/03/22 Unknown Rx fluticasone propionate 50 2 spray intranasal DAILY #16 grams 11/23/22 Unknown Rx mcg/actuation nasal spray,suspension (Flonase Allergy Relief) albuterol sulfate 90 mcg/actuation 1 inh inhalation QID PRN shortness 12/01/22 Unknown Rx aerosol inhaler (Ventolin HFA) of breath or wheezing #8.5 grams amiodarone 100 mg tablet 100 mg PO DAILY #30 tabs 12/10/22 12/10/22 Unknown Rx lisinopril 40 mg tablet 40 mg PO DAILY #90 tabs 12/10/22 12/10/22 Unknown Rx Allergies Allergy/AdvReac Type Severity Reaction Status Date / Time latex Allergy Mild Blisters Verified 12/10/22 09:10 petrolatum,white Allergy Mild Blisters Verified 12/10/22 09:10 [From A and D Barrier] amlodipine Allergy Unknown Verified 12/10/22 09:10 PFSH Acute PFSH: Medical History Atrial flutter Chronic kidney disease COPD (chronic obstructive pulmonary disease) Diabetes DJD (degenerative joint disease) 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 ESRD on 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 History of renal dialysis Hyperlipidemia Hypertension Intermittent palpitations XI (obstructive sleep apnea) PVD (peripheral vascular disease) Severe tobacco use disorder Surgical History H/O aortic valve replacement H/O aortic valve replacement with tissue graft H/O foot surgery Family History Grandmother Diabetes Grandfather Diabetes Denies family history of CAD (coronary artery disease) Clotting disorder Dementia Chronic kidney disease (CKD) Suicide Anesthesia complication Bleeding disorder Lung disease Cancer Stroke Social History Smoking and tobacco status: current every day smoker cigarettes Packs smoked per day: 1 Years cigarettes smoked: 46 Alcohol intake: never Substance/Drug Use: never Lives independently: Yes (with girlfriend) Household members: significant other Marital status: Single service: No 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al status: disabled 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 Pets and animals: Yes Special araceli needs: No Agree to transfusion: Yes Vitals/I&O/Wt Last Vital Signs Temp 97.6 F 12/14/22 03:53 Pulse 66 12/14/22 05:30 Resp 25 H 12/14/22 05:30 BP 126/92 12/14/22 05:30 Pulse Ox 95 12/14/22 05:30 O2 Del Method Nasal Cannula 12/14/22 05:30 O2 Flow Rate 2 12/14/22 05:30 Weight last 48 hrs Weight 113.398 kg Physical Exam Const: COMMON NORMALS: no acute distress and patient oriented x3 GENERAL APPEARANCE: cooperative, well kempt and well developed HENMT: COMMON NORMALS: normocephalic and Normal external nose present HEAD & SCALP: normocephalic FACE & SINUS: normal facial exam NOSE: Normal external nose present Eye: COMMON NORMALS: Equal, round and reactive pupils present, EOMs intact bilaterally, conjunctivae normal and no scleral icterus CONJUNCTIVA: Yes conjunctivae normal PUPIL: Yes Equal, round and reactive pupils present Neck/C-Spine: COMMON NORMALS: full ROM, no lymphadenopathy, no JVD, Thyroid normal and No carotid bruits THYROID: Thyroid normal Lymph: LYMPHATIC: no lymphadenopathy noted Chest: COMMONS NORMALS: normal inspection of the chest Resp: COMMON NORMALS: normal respiratory effort, No retractions and No use of accessory muscles AUSCULTATION: wheezes Cardio: COMMON NORMALS: regular rate, regular rhythm, S1 normal heart sound present, S2 normal heart sound present, No murmurs present (Cardio) and [place] pheral pulses 2+ throughout RATE: regular rate RHYTHM: regular rhythm HEART SOUNDS: S1 normal heart sound present and S2 normal heart sound present PERIPHERAL PULSES: Peripheral pulses 2+ throughout GI: COMMON NORMALS: Normal to inspection, nondistended, normoactive bowel sounds present, Soft to palpation and non-tender : BLADDER/KIDNEY EXAM: Yes no CVA tenderness Back/Pelvis: COMMON NORMALS: no CVA tenderness Extremity: COMMON NORMALS: no calf tenderness and no pedal edema Neuro: COMMON NORMALS: patient oriented x3, CN's II-XII intact bilaterally, moves all extremities and no focal motor deficits Psych: COMMON NORMALS: mental status grossly normal, Normal thought process present, cooperative and speech normal SPEECH: Yes normal speech THOUGHT PROCESS: Normal thought process present Skin: COMMON NORMALS: turgor normal and no jaundice GENERAL SKIN EXAM: turgor normal Data 12/14/22 03:35 12/14/22 04:26 A&P Assessment and plan (1) Acute hyperkalemia: (2) Moderate to severe mitral regurgitation: (3) XI (obstructive sleep apnea): (4) COPD (chronic obstructive pulmonary disease): (5) Tobacco abuse counseling: (6) ESRD on hemodialysis: (7) Anemia: (8) ESRD (end stage renal disease): (9) Acute exacerbation of congestive heart failure: (10) Hyperlipidemia: Qualifiers: Hyperlipidemia type: mixed hyperlipidemia Qualified Code(s): E78.2 - Mixed hyperlipidemia (11) Hypertension: Qualifiers: Hypertension type: essential hypertension Qualified Code(s): I10 - Essential (primary) hypertension (12) Diabetes: Qualifiers: Diabetes mellitus type: type 2 Diabetes mellitus operations developer insulin use: with operations developer use Diabetes mellitus complication status: with diabetic arthropathy Diabetes mellitus complication detail: with other arthropathy Qualified Code(s): E11.618 - Type 2 diabetes mellitus with other diabetic arthropathy; Z79.4 - academic tutor (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 Multifactorial ?COPD exacerbation, ? Systolic and diastolic CHF exacerbation ? Fluid overload ? Atrial fibrillation Atrial fibrillation detected by EMS, also possible wide-complex tachycardia, currently atrial fibrillation with slow ventricular response ? Continue home amiodarone ? Continue home metoprolol ?Heparin drip ? Patient has moderate to severe mitral valve regurg, will discuss with cardiology in a.m. Moderate to severe mitral valve regurg ? Likely etiology behind atrial fibrillation, patient is scheduled for an outpatient transesophageal echocardiogram, will reach out to cardiology in a.m. COPD exacerbation ? Decadron 6 mg IV push every 24 hours ? Smoking cessation counseling ? Continue Rocephin and azithromycin ? DuoNeb, budesonide ? Obtain ABG ? Given chest pain and shortness of breath order D-dimer, venous ultrasound Systolic and diastolic CHF exacerbation, with fluid overload ? Nephrology consulted for dialysis ? Continue p.o. Bumex 1 mg p.o. twice daily Chest pain, with NSTEMI ? Serial EKGs, serial troponins, telemetry monitoring ? Continue heparin drip ? Continue aspirin, statin, beta-reggie ? Monitor for chest pain ? Cardiac echo -Cardiac catheter 2016, showed mild CAD, mild pulm hypertension Hyperkalemia ? Monitor telemetry, ? Received insulin, D50, sodium bicarb ? Nephrology consulted for dialysis ? Repeat BMP -Due to chest pain, shortness of breath, atrial fibrillation, will give him 1 g calcium gluconate Anemia, with complaints of hematochezia as outpatient ? As outpatient there is plans on a colonoscopy ? No complaints of hematochezia currently ? Given NSTEMI, chest pain as above is on heparin drip will have to watch hemoglobin closely ? Iron studies, ? Protonix, Carafate ? Hemoccult stool End-stage renal disease on dialysis History of aortic valve replacement with tissue graft for endocarditis due to Staph epidermidis Attestations Medical Necessity Statement*: Patient requires hospitalization, inpatient, greater than 2 midnights, for hyperkalemia potassium 7.3, with COPD exacerbation, CHF exacerbation, NSTEMI, chest pain, fluid overload, anemia Diagnoses Acute hyperkalemia E87.5 Moderate to severe mitral regurgitation I34.0 XI (obstructive sleep apnea) G47.33 COPD (chronic obstructive pulmonary disease) J44.9 Tobacco abuse counseling Z71.6 ESRD on hemodialysis N18.6; Z99.2 Anemia D64.9 ESRD (end stage renal disease) N18.6 Acute exacerbation of congestive heart failure I50.9 Hyperlipidemia E78.2 Hyperlipidemia type: mixed hyperlipidemia Hypertension I10 Hypertension type: essential hypertension Diabetes E11.618; Z79.4 Diabetes mellitus type: type 2 Diabetes mellitus operations developer insulin use: with operations developer use Diabetes mellitus complication status: with diabetic arthropathy Diabetes mellitus complication detail: with other arthropathy Atrial fibrillation I48.91 COPD exacerbation J44.1 Chest pain R07.9 Acute hypoxic respiratory failure J96.01 NSTEMI (non-ST elevated myocardial infarction) I21.4 Elevated lactic acid level R79.89
--- NOTE | 2022-12-14 06:03 | ECG_ITS ---
[facility] Test Date: 2022-12-14 Pat Name: Richard Huffman Department: Room: ICU10 Gender: Male Survey Research Associate: : 1960 Requested By: Nickolas Haque Order Number: [id number] Kisha MD: Shayan Stout M.D. Measurements Intervals [place] Rate: 67 P: 0 NC: 0 QRS: -53 QRSD: 175 T: 58 QT: 482 QTc: 512 Interpretive Statements SUPRAVENTRICULAR REGULAR RHYTHM INTRAVENTRICULAR CONDUCTION DELAY [130+ ms QRS DURATION] Compared to ECG 12/14/2022 03:55:46 Intraventricular conduction delay now present Right bundle-branch block no longer present Left anterior fascicular block no longer present Electronically Signed On 12-14-2022 8:23:06 CDT by Shayan Stout M.D. [id number]
[2022-12-14 06:08] LABS: ABG PCO2 41.6 mmHg (35-45); ABG PH Result 7.42 (7.35-7.45); Base Excess ABG 2.4 mmol/L (-2.0-2.0); Blood Gas Allen Test Pos; Blood Gas Sample Site Radial, left; Blood Gas Sample Type Arterial; HCO3 ABG 27.1 mmol/L (22-26); Oxygen Device ROOM AIR; PO2 ABG 61.5 mmHg (80.0-100.0)
[2022-12-14 06:09] LABS: Reflex Lactate Order REFLEX LACTIC ORDERD
--- NOTE | 2022-12-14 06:20 | USCV_ITS ---
Richard Huffman Age: 62 Gender: M : 1960 Exam Date: 12/14/2022 08:23 Ordering Phys: Desean Montes MD Technologist: Augusto Jorge Exam Location: [facility] [place] Indication: NSTEMI BP: 177 / 89 HR: 47 Rhythm: Sinus Technical Quality: Adequate MEASUREMENTS (Male / Female) Normal Values 2D ECHO LV Diastolic Diameter PLAX 4.5 cm 4.2 - 5.9 / 3.9 - 5.3 cm LV Systolic Diameter PLAX 3.1 cm IVS Diastolic Thickness 1.2 cm 0.6 - 1.0 / 0.6 - 0.9 cm IVS Systolic Thickness 1.7 cm LVPW Diastolic Thickness 1.8 cm 0.6 - 1.0 / 0.6 - 0.9 cm LVPW Systolic Thickness 2.0 cm LVOT Diameter 2.0 cm LV Ejection Fraction 2D Teich 56.7 % LV Ejection Fraction MOD 2C 60.3 % LV Ejection Fraction 2C AL 60.4 % LA Diameter 4.8 cm IVC Diameter 1.4 cm M-MODE Aortic Annulus Diameter 2.7 cm LA Ao Ratio MM 1.7 MV E Point Septal Separation 1.6 cm DOPPLER AV Peak Velocity 187.0 cm/s LVOT Peak Velocity 89.0 cm/s AV Area Cont Eq vti 1.8 cm squared AV Area Cont Eq pk 1.6 cm squared MV Area PHT 3.7 cm squared Mitral E to A Ratio 2.0 MV E' Velocity 103.0 cm/s Mitral E to MV E' Ratio 27.5 Mitral E to LV E' Lateral Ratio 24.1 Mitral E to LV E' Septal Ratio 31.9 TR Peak Velocity 128.0 cm/s TR Peak Gradient 6.6 mmHg TV Peak E Velocity 77.0 cm/s Right Atrial Pressure 3.0 mmHg Pulmonary Artery Systolic Pressu 9.6 mmHg PV Peak Velocity 0.0 cm/s RV Acceleration Time 0.2 s FINDINGS Left Ventricle Normal left ventricular size, systolic function and wall thickness, with no regional wall motion abnormalities. Left ventricular ejection fraction is estimated at 65 %. Grade III diastolic dysfunction (restrictive filling pattern), severely elevated filling pressures. Abnormal septal motion consistent with conduction abnormality. Right Ventricle Normal right ventricular size and systolic function. Right Atrium Normal right atrial size. Left Atrium Mildly increased left atrial size. Mitral Valve Moderate mitral annular calcification. Moderately thickened mitral valve. No mitral valve stenosis. At least moderate posteriorly directed mitral valve regurgitation. Aortic Valve Aortic valve not well visualized. Bioprosthetic transcatheter aortoc valve well seated and normally functioing. Peak velocity of 1.8 m/s. peak gradient 14 mm Hg. KODY 1.8 cm2. No aortic valve regurgitation. Tricuspid Valve Structurally normal tricuspid valve. Trace tricuspid valve regurgitation. Pulmonic Valve Pulmonic valve not well visualized. Pericardium No pericardial effusion. Aorta Aorta not well visualized. IVC Normal sized inferior vena cava. CONCLUSIONS 1. Normal left ventricular size, systolic function and wall thickness, with no regional wall motion abnormalities. Left ventricular ejection fraction is estimated at 65 %. Grade III diastolic dysfunction (restrictive filling pattern), severely elevated filling pressures. Abnormal septal motion consistent with conduction abnormality. 2. Bioprosthetic transcatheter aortoc valve well seated and normally functioing. Peak velocity of 1.8 m/s. peak gradient 14 mm Hg. KODY 1.8 cm2. No aortic valve regurgitation. 3. Moderate mitral annular calcification. Moderately thickened mitral valve. At least moderate posteriorly directed mitral valve regurgitation. 4. There may not have been any significant change when compared to study dated 07/16/2022. Lynsey Zuniga MD (Electronically Signed) Final Date: 14 December 2022 13:06 S
--- NOTE | 2022-12-14 06:20 | USCV_ITS ---
Richard Huffman Age: 62 Gender: M : 1960 Exam Date: 12/14/2022 08:39 Ordering Phys: Desean Montes MD Technologist: Augusto Jorge [place] [facility] [place]: leg pain/swelling PROCEDURES: The venous duplex Doppler examination of both lower extremities was performed in the standard fashion. The following venous structures were evaluated: common femoral vein, profunda vein, proximal portion of the greater saphenous vein, superficial femoral vein, and the popliteal vein. FINDINGS: Normal 2-D Doppler and augmentation and compressibility throughout the lower extremity venous structures. Additional imaging through the proximal calf veins also reveals no thrombus. Limited evaluation of the greater saphenous vein is patent with no thrombus. CONCLUSIONS No evidence of right lower extremity DVT. No evidence of left lower extremity DVT. Rojelio Coleman MD (Electronically Signed) Final Date: 14 December 2022 09:48 S
[2022-12-14 06:24] LABS: Troponin 5 2HR 212.5 ng/L (0-15); Troponin 5 2HR Delta 4.5 ABS# (0-10)
[2022-12-14] MEDS: calcium gluconate 0.9% NaCL 1 GM/50 ML PREMIX IV (06:27)
[2022-12-14 06:28] LABS: Procalcitonin 0.92 ng/mL (0-0.5)
--- OUTSIDE RECORDS SUMMARY | 2022-12-14 06:47 | XMS_ITS | Patient Health Record ---
Author Name Unknown Organization [facility] [employer] Address [address] [place], [place] [id number] Care Team Providers Care Bench Worker Binding Name Role Phone Sally HERNDON, Sulma Primary Care Provider Unava nik Nava MD, Alonso Unavailable [phone] Arnoldo HERNDON, Sarmad Unavailable Unavailable Feli Cano Unavailable [phone] ALLERGIES Allergen (clinical drug ingredient) Drug/Non Drug Allergy documented on EMR Reaction Allergy Type Onset Date Status Latex latex (uncoded) Unknown Allergy Acti ve vitamin b and d ointment (uncoded) Unknown Allergy Active amlodipine amlodipine Unknown Drug Allergy Activ e RESULTS Component Value Reference Range Notes [employer] Results Reviewed date:06/03/2022 03:49:38 PM Interpretation: Performing Lab:[id number] [employer], [address] [address] [place] [address] Phyllis Au MD Notes/Report: [employer], [address] [facility], [facility] [address] [address], , L ab Director: Phyllis Au MD, CLIA ID# [id number] Codeine negative 1 ng/mL Morphine negative 1 ng/mL Hydrocodone positive-18.104 1 ng/mL Norhydrocodone Quantification positive-2.650 2 ng/mL Hydromorphone negative 1 ng/mL Oxycodone negative 1 ng/mL Noroxycodone Quantification negative 2 ng/mL Oxymorphone negative 1 ng/mL Buprenorphine Quantification negative 1 ng/mL Norbuprenorphine Quantification negative 2 ng/mL Fentanyl Quantification negative 0.2 ng/mL Norfentanyl Quantification negative 1 ng/mL Meperidine Quantification negative 1 ng/mL Normeperidine Quantification negative 2 ng/mL Methadone negative 2 ng/mL EDDP (Methadone metabolite) negative 2 ng/mL Tapentadol Quantification negative 5 ng/mL Tramadol Quantification positive-188.144 5 ng/mL J-Qjxjznoot-Zbdbxmdv Quantification positive-7.275 5 n g/mL Alprazolam negative 1 ng/mL Clonazepam negative 1 ng/mL Clonazepam Metabolite Quantification negative 1 ng /mL Diazepam negative 1 ng/mL Nordiazepam negative 1 ng/mL Lorazepam negative 1 ng/mL Oxazepam negative 2 ng/mL Temazepam negative 1 ng/mL Amphetamine negative 5 ng/mL Methylphenidate Quantification negative 1 Ritalinic Acid Quantification negative 1 Carisoprodol Quantification negative 5 ng/mL Meprobamate Quantification negative 5 ng/mL Dextromethorphan Quantification negative 1 ng/mL Levorphanol / Dextrorphan Quantification negative 1 ng/mL Gabapentin Quantification negative 10 ng/mL Naltrexone Quantification negative 1 ng/mL Naltrexol (Naltrexone metabo lite) Quantification negative 1 ng/mL Pregabalin Quantification negative 5 ng/mL Sertraline Quantification negative 1 ng/mL Zolpidem Quantification negative 1 Methamphetamine negative 5 ng/mL Cocaine Quantification negative 2 ng/mL Cocaine Metabolite negative 2 ng/mL THC (Marijuana Component) negative 2 ng/mL MDMA negative 5 ng/mL 6-YONY (Heroin metabolite) Quantification negative 1 ng/mL Phencyclidine negative 1 ng/mL Embedded PDF Reviewed date:06/03/2022 03:49:48 PM Interpretation: Performing Lab: Notes/Report: [facility], [address] [facility], [facility] [address] [address], , L ab Director: Phyllis Au MD, CLIA ID# [id number] Saliva Swab Toxicology Scree n Reviewed date:06/03/2022 03:50:05 PM Interpretation: Performing Lab: Notes/Report: REASON FOR REFERRAL No Information MEDICATIONS Medication SIG (Take, Route, Frequency, Duration) Notes Start Date End Date Status metOLazone 5 mg 1 tab(s) orally once a day for 30 day(s) Active lisinopril 20 mg 1 tab(s) orally once a day for 30 day(s) Active escitalopram 10 mg 1 tab(s) orally once a day for 30 day(s) Active RenaPlex-D Vitamin B Complex with C,D,E, Folic Acid, Selenium and Zinc 1 tab(s) orally once a day Active metoprolol 50 mg 1 tab orally once a day Active torsemide 100 mg 1 tab(s) orally once a day for 30 day(s) Active rOPINIRole 1 mg 1 tab(s) orally once a day Active Spiriva Respimat 1.25 mcg/inh 2 puff(s) inhaled once a day for 30 day(s) Active Aspir-Low 81 mg 1 tab orally once a day Active Vitamin D3 5000 intl units as directed o rally once a day for 30 day(s) Active acetaminophen-oxycodone 325 mg-5 mg 1/2 - 1 tab orally Q4-6H prn severe pain (max 1 1/2 per day; hold within 4H of planned sleep) Active amiodarone 200 mg 1 tab(s) orally once a day for 30 day(s) Active Vitamin B12 1000 mcg 1 tab orally once a day Active hydrALAZINE 50 mg 1 tab(s) orally 3 ti mes a day Active acetaminophen-oxycodone 325 mg-5 mg 1/2 - 1 tab orally Q4-6H prn severe pain (max 1 1/2 per day; hold within 4H of planned sleep) Active acetaminophen-oxycodone 325 mg-5 mg 1/2 - 1 tab orally Q4-6H prn severe pain (max 1 1/2 per day; hold within 4H of planned sleep) Active doxycycline hyclate 100 mg 1 cap orally 2 times a day Active bumetanide 2 mg 1 tab(s) orally once a day for 30 day(s) Active traMADol 50 mg 1 tab orally Q4-6H p rn pain (max 1 per day; hold within 4H of planned sleep) Active SOCIAL HISTORY Tobacco Use: Social History Observation Description Date Details (start date - stop date) Current Smoker NA - NA Sex Assigned At : Social History Observation Description Sex Assigned At Unknown alcohol Question Answer Notes Did you have a drink containing alcohol in the p ast year? No Points 0 Interpretation Negative Tobacco use: Question Answer Notes : current smoker Are you interested in quitting? Thinking about q uitting How many cigarettes a day do you smoke? 21-30 How often do you smoke cigarettes? every day How soon after you wake up d o you smoke your first cigarette? 6-30 min When did you start smoking? 1972 PROBLEMS Problem Type ICD Code Onset Dates Problem Status W/U Status Risk SNOMED Code Notes Problem Sacroiliitis, not elsewhere classified (M46.1) Active confirmed Solitary sacroiliitis (701797360) Problem Low back pain (M54.5) Active confirmed Low back pain (161862034) Problem Spondylosis without myelopathy or radiculopathy, lumbar region (M47.816) Active confirmed Lumbosacral spondylosis without myelopathy (97846649) Problem nursing home (current) use of opiate analgesic (Z79.891) Active confirmed High risk drug monitoring status (623917298) Problem Obstructive sleep apnea (adult) (pediatric) (G47.33) Active confirmed Obstructive sleep apnea syndrome (00248412) Problem Other chronic pain (G89.29) Active confirmed Chronic pain (84284734) Problem 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 (Z79.899) Active confirmed Long-term current use of drug therapy (382493395) Problem Vertebrogenic low back pain (M54.51) Active confirmed Low back pain (finding) (572244364) Encounters Encounter Location Date Provider Diagnosis [facility] [address] [place], [place] [id number] 05/28/2022 Alonso Nava Sacroiliitis, not elsewhere classified M46.1 ; Vertebrogenic low back pain M54.51 ; Spondylosis without myelopathy or radiculopathy, lumbar region M47.816 ; Obstructive sleep apnea (adult) (pediatric) G47.33 and buttermaker continuous churn (current) use of opiate analgesic Z79.891 [facility] [address] [place], [place] [id number] 06/25/2022 Alonso Nava Spondylosis without myelopathy or radiculopathy, lumbar region M47.816 ; Sacroiliitis, not elsewhere classified M46.1 ; Vertebrogenic low back pain M54.51 ; Obstructive sleep apnea (adult) (pediatric) G47.33 and buttermaker continuous churn (current) use of opiate analgesic Z79.891 [facility] [employer] [facility] [place] [address] [address] [place], [place] [id number] 08/20/2022 Feli Delacruz Vertebrogenic low ba ck pain M54.51 ; Other chronic pain G89.29 and Obstructive sleep apnea (adult) (pediatric) G47.33 [facility] [address] [place], [place] [id number] 11/12/2022 Feli Delacruz Vertebrogenic low ba ck pain M54.51 ; Other chronic pain G89.29 and Obstructive sleep apnea (adult) (pediatric) G47.33 ASSESSMENTS Encounter Date Diagnosis Assessment Notes Treatment Notes Treatment Clinical Notes 05/28/2022 Sacroiliitis, not elsewhere classified (ICD-10 - M46.1) 05/28/2022 Vertebrogenic low back pain (ICD-10 - M54.51) Chronic axial lumbosacral spine pain. Prior conservative treatment by patient as noted, below. No prior surgical treatment noted. Prior minimally invasive interventional spine treatment via another provider with history of no benefit. Have discussed additional interventional spine treatment with the patient and the patient declined, stating that he is a poor interventional spine treatment candidate for multiple reasons 06/25/2022 Spondylosis without myelopathy or radiculopathy, lumbar region (ICD-10 - M47.816) 08/20/2022 Other chronic pain (ICD-10 - G89.29) Patient reports that taking his pain medication makes it more bearable for him to sit through dialysis. Patient has been deemed a poor interventional spine treatment candidate for multiple reasons by Dr. Nava. Plan to continue oral opioid mediation management 08/20/2022 Vertebrogenic low back pain (ICD-10 - M54.51) Chronic axial lumbosacral spine pain 11/12/2022 Vertebrogenic low back pain (ICD-10 - M54.51) Chronic axial lumbosacral spine pain 06/25/2022 Vertebrogenic low back pain (ICD-10 - M54.51) Chronic axial lumbosacral spine pain. Prior conservative treatment by patient as noted, below. No prior surgical treatment noted. Prior minimally invasive interventional spine treatment via another provider with history of no benefit. Have discussed additional interventional spine treatment with the patient and the patient declined, stating that he is a poor interventional spine treatment candidate for multiple reasons 08/20/2022 Obstructive sleep apnea (adult) (pediatric) (ICD-10 - G47.33) Patient with history of inability to tolerate CPAP. Patient reports seeing Dr. Mckinney, pulmonology. Pulmonary work up in progress including PFTs and sleep study per patient report. Patient has also reported of a spot on his lung with discussion of a possible biopsy 11/12/2022 Obstructive sleep apnea (adult) (pediatric) (ICD-10 - G47.33) Patient with history of inability to tolerate CPAP. Patient reports seeing Dr. Mckinney, pulmonology. Pulmonary work up in progress including PFTs and sleep study per patient report. Patient has also reported of a spot on his lung with discussion of a possible biopsy (all on hold at this time) 11/12/2022 Other chronic pain (ICD-10 - G89.29) Patient reports that taking his pain medication makes sitting through dialysis more tolerable. Patient has been deemed a poor interventional spine treatment candidate for multiple reasons. Plan to continue oral opioid mediation management. Consider opioid taper at next visit 06/25/2022 Sacroiliitis, not elsewhere classified (ICD-10 - M46.1) 05/28/2022 Spondylosis without myelopathy or radiculopathy, lumbar region (ICD-10 - M47.816) 05/28/2022 Obstructive sleep apnea (adult) (pediatric) (ICD-10 - G47.33) Patient with history of inability to tolerate CPAP. Patient has reported of a pulmonolgy appointment in 09/2022 whereby he plans to discuss his sleep apnea. Patient has been counseled at multiple on the risks of sleep apnea, with or without opioid and / or other sedative usage, and the patient verbalized understanding and acceptance of the increased risk (worsened sleep apnea, respiratory depression, ) with opioid and / or sedative substance usage. Patient has been counseled that synergistic risk occurs with concomitant opioid and sedative usage. Patient has also been counseled to hold opioid and / or sedative substances prior to planned sleep or dangerous activities and patient verbalized understanding that noncompliance would be at patient's increased risk 06/25/2022 Obstructive sleep apnea (adult) (pediatric) (ICD-10 - G47.33) Patient with history of inability to tolerate CPAP. Patient has reported of a pulmonolgy appointment in 09/2022 whereby he plans to discuss his sleep apnea. Patient has been counseled at multiple on the risks of sleep apnea, with or without opioid and / or other sedative usage, and the patient verbalized understanding and acceptance of the increased risk (worsened sleep apnea, respiratory depression, ) with opioid and / or sedative substance usage. Patient has been counseled that synergistic risk occurs with concomitant opioid and sedative usage. Patient has also been counseled to hold opioid and / or sedative substances prior to planned sleep or dangerous activities and patient verbalized understanding that noncompliance would be at patient's increased risk 05/28/2022 buttermaker continuous churn (current) use of opiate analgesic (ICD-10 - Z79.891) Patient has MED of 30. This places the patient in the [facility] low risk category for opioid usage (this risk assessment does not include the aforementioned risk in regards to sleep apnea, above). Patient has received the Opioid Analgesic [facility] Patient Counseling Guide. Patient has had opportunity to read the Guide and ask questions pertaining to the Guide. Patient has been advised on 11/15/19 that due to the [place] Government concerns and actions, any suspected patient misuse, abuse, or diversion of controlled substances (i.e. opioids/narcotics/pa in killers) WILL result in dissolution of treatment from this clinic. Patients adhering to the concepts contained within the patient's Treatment Agreement will be protected from such termination of care. Patient was given a copy of the Treatment Agreement, signed by patient on 10/05/19. Patient signed an opioid consent form on 10/18/19. Patient has refused offer of a Narcan nasal spray prescription. Oral Fluid Tox screen today 06/25/2022 buttermaker continuous churn (current) use of opiate analgesic (ICD-10 - Z79.891) Patient has MED of 16.25. This places the patient in the [facility] low risk category for opioid usage (this risk assessment does not include the aforementioned risk in regards to sleep apnea, above). Patient has received the Opioid Analgesic [facility] Patient Counseling Guide. Patient has had opportunity to read the Guide and ask questions pertaining to the Guide. Patient has been advised on 11/15/19 that due to the Federal Government concerns and actions, any suspected patient misuse, abuse, or diversion of controlled substances (i.e. opioids/narcotics/pa in killers) WILL result in dissolution of treatment from this clinic. Patients adhering to the concepts contained within the patient's Treatment Agreement will be protected from such termination of care. Patient was given a copy of the Treatment Agreement, signed by patient on 10/05/19. Patient signed an opioid consent form on 10/18/19. Patient has refused offer of a Narcan nasal spray prescription 05/28/2022 Other Patient has reported of using Percocet leftovers from heart surgery at one per day with benefit. In addition, he uses 1/2 tablet of either the leftover hydrocodone or leftover Percocet in relation to dialysis (painful chair to be in for duration of dialysis). He also uses the tramadol for dialysis days, typically 2 tabs three times a week and infrequently / rarely at other times. Above Rxs with total number of doses per Rx written to reflect patient usage amounts (and not specific to daily use patterns as described). Patient may continue to utilize the hydrocodone as noted above until Rx exhausted. Upcoming biopsy of lung by Dr. Mckinney reported 06/25/2022 Other Patient has reported of using Percocet leftovers from heart surgery at one per day with benefit. In addition, he uses 1/2 tablet of either the leftover hydrocodone or leftover Percocet in relation to dialysis (painful chair to be in for duration of dialysis). He also uses the tramadol for dialysis days, typically 2 tabs three times a week and infrequently / rarely at other times. Above Rxs with total number of doses per Rx written to reflect patient usage amounts (and not specific to daily use patterns as described). Patient may continue to utilize the hydrocodone as noted above until Rx exhausted. Upcoming biopsy of lung by Dr. Mckinney reported; appointment scheduled for 07/28/22 08/20/2022 Other 11/12/2022 Other PLAN OF TREATMENT Next Appt Details Provider Name:Alonso Alcazar son, 01/26/2023 11:40:00 AM, [address] [place], [place], [id number], Insurance Providers Payer Name Payer Address Payer Phone Subscriber Number Group Number Insured Name Patient Relationship to Insured Coverage Start Date Coverage End Date [facility] [address] [address] [place] [address] [phone] [id number] LarsRichard rincon Self - patient is the insured MEDICAL (GENERAL) HISTORY Medical History History ICD Code Chronic pain Low back pain Lumbar spondylosis Sacroiliitis Anemia Bronchitis, chronic Diabetes mellitus Hernia, ventral Hyperkalemia Hypertension Diabetic neuropathy Kidney failure (dialysis 3 days a week) Lung lesion / spot Tobacco use, COPD Sleep apnea Surgical History Surgery Date(Month/Year) Debridement of right foot injury, 1996 ORIF right foot, 1996 Skin graft, right foot, 1997 Removal of hardware, right foot, 1997 Laser lithotripsy, renal stone, 2002 Aortic valve replacement, performed at [facility], 10/03/16 Aortic valve replacement, performed at [facility], 02/22/17 Aortic valve replacement, performed at [facility] in [place], [place], 02/2022 Hospitalization History Reason Date(Month/Year) Infection, treated at [facility], 01/01/17 Pneumonia, treated at [facility], 06/2022 Infection, treated at [facility], 10/2016
[2022-12-14 07:07] LABS: HIV 1 & 2 Antibody Non-Reactive (Non-Reactiv); HIV 1 & 2 Antigen Non-Reactive (Non-Reactiv); Hepatitis A Antibody IgM Non-Reactive (Nonreactive); Hepatitis B Core IgM Non-Reactive (Nonreactive); Hepatitis B Surface Antigen Non-Reactive (Nonreactive); Hepatitis C Virus Antibody Non-Reactive (Nonreactive)
[2022-12-14 07:08] LABS: Iron 119 ug/dL (59-158); Percent Saturation 60.4 % (20-50); Thyroid Stimulating Hormone 3.11 uIU/mL (0.27-4.20); Total Iron Binding Capacity 197 mcg/dl; Unsaturated Iron Binding 78 ug/dL (112-347)
[2022-12-14 07:13] LABS: Alcohol Level < 10 mg/dL (0-10)
[2022-12-14 07:18] LABS: Estmated Average Glucose 91; Hemoglobin A1C 4.8 % (4.0-6.0)
[2022-12-14 07:23] LABS: D Dimer 1.18 ug/mLFEU (0-0.59)
[2022-12-14] MEDS: metoprolol succinate ER (24 HR) 50 mg Tablet PO ×2 (07:23→17:56)
[2022-12-14] MEDS: hyDRALAzine 50 mg Tablet PO ×2 (07:23→15:30)
--- NOTE | 2022-12-14 07:35 | PC.PHAR ---
NURSES IN ROOM RUNNING TESTS AND DOING SCANS- PT UNABLE TO VERIFY MEDS AT THIS TIME- WILL CHECK BACK LATER THIS AM 7:40 AM
--- NOTE | 2022-12-14 07:55 | PM.CONSULT ---
Providers/Reason For Consult Consulting Physician/Specialty*: [facility]/Nephrology Reason for Consult*: ESRD Attending Physician: Beckie Stafford MD Primary Care Provider: Christofer Varghese MD History of Present Illness History of Present Illness Richard Huffman is a 62 year old male Patient is a 62-year-old male with past medical history of coronary artery disease, history of aortic valve replacement secondary to prior endocarditis, history of A-fib, dyslipidemia, hypertension, COPD, obstructive sleep apnea, diabetes, end-stage renal disease on dialysis per Wednesday presented to the emergency department due to chest pain and shortness of breath. Last dialysis was on Wednesday. Denies any nausea vomiting. EMS found him to be in A-fib received a bolus of amiodarone. He is currently admitted to the ICU. Lab data significant with a potassium of 7.3, hemoglobin of 7.2. Received med management including D50 and bicarb calcium for hyperkalemia. Review of Systems Narrative: other ROS engative Medications/Allergies Home Medications Medication Instructions Recorded Confirmed Last Taken Type bumetanide 2 mg tablet 2 mg PO BID 11/28/20 12/14/22 08/21/22 History aspirin 81 mg chewable tablet 81 mg PO DAILY 01/26/22 12/14/22 08/21/22 History vit B,C-folic ac 800 mcg-zinc 12.5 1 tab PO BEDTIME 01/26/22 12/14/22 08/21/22 History mg-selen-D3 2,000 unit-vit E tablet (RenaPlex-D) cholecalciferol (vitamin D3) 125 125 mcg PO DAILY 05/26/22 12/14/22 08/21/22 History mcg (5,000 unit) capsule hydralazine 50 mg tablet 50 mg PO TID 05/28/22 12/14/22 08/21/22 History torsemide 100 mg tablet 100 mg PO DAILY 05/28/22 12/14/22 08/21/22 History metoprolol succinate 50 mg 50 mg PO BID 07/15/22 12/14/22 08/21/22 History tablet,extended release 24 hr oxycodone-acetaminophen 5 mg-325 0.5 - 1 tab PO Q4H PRN Pain 07/15/22 12/14/22 Unknown History mg tablet cyanocobalamin (vitamin B-12) 1,000 mcg PO DAILY 08/25/22 12/14/22 Unknown History 1,000 mcg tablet (Vitamin B-12) metolazone 5 mg tablet 5 mg PO QAM 08/25/22 12/14/22 Unknown History docusate sodium 100 mg capsule 100 mg PO BID 10/01/22 12/14/22 Unknown History (Stool Softener) hydrocodone 5 mg-acetaminophen 325 1 tab PO BID PRN Pain 10/01/22 12/14/22 Unknown History mg tablet budesonide 0.5 mg/2 mL suspension 0.5 mg (2 mL) inhalation QPM #60 mL 10/13/22 12/14/22 Unknown Rx for nebulization ipratropium 0.5 mg-albuterol 3 mg 3 ml inhalation Q6H PRN Shortness 10/13/22 12/14/22 Unknown Rx (2.5 mg base)/3 mL nebulization Of Breath #180 mL soln escitalopram oxalate 10 mg tablet 10 mg PO DAILY #60 tabs 10/20/22 12/14/22 Unknown Rx (Lexapro) ropinirole 1 mg tablet 1 mg PO DAILY #90 tabs 10/20/22 12/14/22 Unknown Rx Diabetic shoes #1 ea 10/27/22 12/14/22 Unknown Rx fluticasone propionate 50 2 spray intranasal DAILY #16 grams 11/23/22 12/14/22 Unknown Rx mcg/actuation nasal spray,suspension (Flonase Allergy Relief) albuterol sulfate 90 mcg/actuation 1 inh inhalation QID PRN shortness 12/01/22 12/14/22 Unknown Rx aerosol inhaler (Ventolin HFA) of breath or wheezing #8.5 grams amiodarone 100 mg tablet 100 mg PO DAILY #30 tabs 12/10/22 12/14/22 Unknown Rx lisinopril 40 mg tablet 40 mg PO DAILY #90 tabs 12/10/22 12/14/22 Unknown Rx doxycycline hyclate 100 mg tablet 100 mg PO DAILY 12/14/22 12/14/22 Unknown History Allergies Allergy/AdvReac Type Severity Reaction Status Date / Time latex Allergy Mild Blisters Verified 12/10/22 09:10 petrolatum,white Allergy Mild Blisters Verified 12/10/22 09:10 [From A and D Barrier] amlodipine Allergy Unknown Verified 12/10/22 09:10 Current Medications Generic Name Dose Route Start Last Admin Trade Name Srikanth PRN Reason Stop Dose Admin Hydralazine HCl 50 mg 12/14/22 09:00 12/14/22 07:23 Hydralazine 50 Mg Tablet PO 50 mg TID KENNEDY Administration Metoprolol Succinate 50 mg 12/14/22 09:00 12/14/22 07:23 Metoprolol Succinate Er (24 Hr) 50 Mg Tablet PO 50 mg BID KENNEDY Administration PFSH Acute PFSH: Medical History Atrial flutter Chronic kidney disease COPD (chronic obstructive pulmonary disease) Diabetes DJD (degenerative joint disease) 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 ESRD on 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 History of renal dialysis Hyperlipidemia Hypertension Intermittent palpitations XI (obstructive sleep apnea) PVD (peripheral vascular disease) Severe tobacco use disorder Surgical History H/O aortic valve replacement H/O aortic valve replacement with tissue graft H/O foot surgery Family History Grandmother Diabetes Grandfather Diabetes Denies family history of CAD (coronary artery disease) Clotting disorder Dementia Chronic kidney disease (CKD) Suicide Anesthesia complication Bleeding disorder Lung disease Cancer Stroke Social History Smoking and tobacco status: current every day smoker cigarettes Packs smoked per day: 1 Years cigarettes smoked: 46 Alcohol intake: never Substance/Drug Use: never Lives independently: Yes (with girlfriend) Household members: significant other Marital status: Single service: No 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al status: disabled 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 Pets and animals: Yes Special araceli needs: No Agree to transfusion: Yes Vitals/I&O/Wt Last Vital Signs Temp 97.9 F 12/14/22 06:05 Pulse 65 12/14/22 07:40 Resp 34 H 12/14/22 07:40 BP 176/115 12/14/22 07:30 Pulse Ox 99 12/14/22 07:40 O2 Del Method Nasal Cannula 12/14/22 06:04 O2 Flow Rate 2 12/14/22 05:30 12/13/22 12/14/22 12/14/22 22:59 06:59 14:59 Intake Total 0.833 / 0.833 Balance 0.833 / 0.833 Weight last 48 hrs Weight 113.398 kg Physical Exam Narrative: awake , alert wheezing jenae per report No edema Data 12/14/22 18:33 12/14/22 07:50 A&P Assessment and plan (1) ESRD on hemodialysis: Plan 1. End-stage renal disease: On MWF schedule as outpatient, last dialysis was on Wednesday, now presents with volume overload and hyperkalemia and altered mental status. -Emergent hemodialysis, 4 hours and a 1K bath and 3 to 4 L ultrafiltration as tolerated. 2. Hyperkalemia: HD as above and should be on low K diet 3. Anemia:, Complaints of hematochezia, GI work-up as outpatient, we will order SALENA 4. History of CHF now with pulmonary edema, HD today and ultrafiltration aggressively as tolerated 5. Acute on chronic respiratory failure, multifactorial 6. Atrial fibrillation: Management per primary team 7. History of aortic valve replacement with tissue graft for history of endocarditis in the past Patient evaluated using audiovisual cart. Time spent 45 minutes Consult Attestations Medical Necessity Statement: per mediicne team Coding Level of Care Code Acute Code for Chg Fwd Diagnoses ESRD on hemodialysis N18.6; Z99.2
--- NOTE | 2022-12-14 07:57 | PC.NURSE ---
Physician Communication Dr. Montes contacted for orders about the following issues: 1. Critical message to nurse order active to not administer any heparin bolus per protocol. Order received to not administer a heparin bolus at initiation of drip, not barring any required boluses at any future times. 2. Nephrology unable to be contacted by ED physician. Dr. Montes notified. 3. Picture relayed of ulcer on patient's right foot; order received to place optifoam on wound until further notice. 4. Patient's blood pressure remaining elevated with systolic pressures ranging from low 170s-190s. Order received to administer his metoprolol and hydralazine early. 5. Patient's only iv infiltrated in right arm. Patient has old fistula in left arm that is no longer being utilized. Order received to avoid needle pokes in left arm due to fistula site. Furthermore, Dr. Stafford notified of the TB risk factors of a history of past IV drug use as well as unexplained night sweats.
[2022-12-14] MEDS: cyanocobalamin 1,000 mcg Tablet 1000 MCG PO (08:01)
[2022-12-14] MEDS: bumetanide 1 mg Tablet PO ×2 (08:02→17:57)
[2022-12-14] MEDS: sucralfate 1 gm Tablet PO ×2 (08:02→20:49)
[2022-12-14] MEDS: aspirin 81 mg Chew Tablet PO (08:02)
[2022-12-14] MEDS: amiodarone 200 mg Tablet 100 MG PO (08:02)
[2022-12-14] MEDS: escitalopram 10 mg Tablet PO (08:02)
[2022-12-14] MEDS: ropinirole 1 mg Tablet PO (08:02)
[2022-12-14 08:21] LABS: Calcium 10.6 mg/dL (8.5-10.5); Carbon Dioxide 26 mmol/L (22-29); Chloride 92 mmol/L (98-107); Glucose 180 mg/dL (65-115); Osmolality Calculated 314 mOsm/kg (285-295); Sodium 134 mmol/L (136-145)
[2022-12-14 08:27] LABS: Ferritin 15185 ng/mL (30-400)
[2022-12-14 08:28] LABS: Hepatitis B Surface AB 31.7 (11.5-1000)
[2022-12-14 08:28] LABS: Lactic Acid level (Lactate) 1.9 mmol/L (0.5-2.2)
--- NOTE | 2022-12-14 08:32 | XR_ITS ---
WS: [id number] EXAMINATION: XR chest 1V portable [id number] REASON FOR EXAM: Post PICC insertion COMPARISON: None available. ORDER DATE: 12/14/2022 9:11 AM TECHNIQUE: A single, portable frontal chest x-ray was obtained. X-RAY FINDINGS: Interstitial alveolar opacities mostly in the right lung suggesting asymmetric mild pulmonary edema. Pleural spaces are clear. No pleural effusions or pneumothorax. Cardiomediastinal silhouette is normal. Except for calcific aortic change. Soft tissue and osseous st ructures are unremarkable. Left-sided PICC line terminating at the cavoatrial junction in satisfactory position. Right-sided maricarmen lysis catheter noted. IMPRESSION: Asymmetric early pulmonary edema on the right PICC line in satisfactory position. No pneumothorax. Re port given to the technologist
[2022-12-14 09:00] LABS: Blood Urea Nitrogen 100 mg/dL (8-23)
--- NOTE | 2022-12-14 09:24 | PC.NURSE ---
MOrning IV medications delayed (heparin, protonix, dexamethasone, roceping, and zithromax) due to No IV access. Multiple attempts including ultrasound were unsuccessful. PICC line ordered.
--- NOTE | 2022-12-14 09:30 | PC.NURSE ---
Triple lumen PICC placed to left brachial vein. Pt referred for PICC due to poor peripheral access. Pt has hemodialysis cath in right chest. Left arm assessed with brachial vein noted at 3.5 mm, straight, and apparent best choice for placement. Using sterile technique and MST, left brachial vein accessed x 1 stick. Mid-arm circumference measured 10 cm from left AC 31 cm. Trimmed cath length 49 cm with 1 cm exteranl length noted. CXR shows tip in distal SVC, cavoatrial junction, in good postion for use per radiologist. Line secured with stat-lock. Insertion site covered with Biopatch and TSM. Report given to bedside nurseBandar.
[2022-12-14] MEDS: azithromycin 500 MG in sodium chloride 0.9% 250 ML 250 MG IV (09:42)
[2022-12-14] MEDS: cefTRIAXone 1,000 MG in sodium chloride 0.9% (plus) 50 ML 100 MG IV (09:43)
[2022-12-14] MEDS: pantoprazole 40 mg SDV IVP ×2 (09:44→20:48)
[2022-12-14] MEDS: dexamethasone 10 mg/mL INJ 6 MG IVP (09:44)
[2022-12-14] MEDS: heparin drip 25,000 UNIT/500 ML PREMIX 31.75 UNIT IV (09:45)
[2022-12-14 09:51] LABS: Hematocrit 20.9 % (37-53)
[2022-12-14] MEDS: epoetin alfa 1000 Unit/0.05 mL (ESRD) 20000 UNIT SUBCUT (09:57)
[2022-12-14] MEDS: heparin, porcine 1,000 unit/mL INJ 10 mL 1000 UNIT IV (09:57)
[2022-12-14] MEDS: heparin, porcine 1,000 unit/mL INJ 10 mL 10000 UNIT INTRACATH (09:58)
[2022-12-14 10:13] LABS: Troponin 5 6HR 238.2 ng/L (0-15); Troponin 5 6HR Delta 30.2 ng/L (0-12)
[2022-12-14 10:27] LABS: Glucose Point of Care 158 mg/dL (70-110)
[2022-12-14 10:48] LABS: Amphetamines Screen Urine Negative (Negative); Barbiturates Screen Urine Negative (Negative); Benzodiazepines Screen Urine Negative (Negative); Cocaine Screen Urine Negative (Negative); Opiate Screen Urine Positive (Negative); PCP Screen Urine Negative (Negative); THC Screen Urine Negative (Negative)
--- NOTE | 2022-12-14 11:07 | ECG_ITS ---
[facility] Test Date: 2022-12-14 Pat Name: Richard Huffman Department: Room: ICU10 Gender: Male Content Producer: : [id number] Requested By: Nickolas Haque Order Number: [id number] Kisha MD: Shayan Stout M.D. Measurements Intervals [place] Rate: 66 P: -81 FL: 171 QRS: -44 QRSD: 136 T: -1 QT: 458 QTc: 483 Interpretive Statements SINUS RHYTHM LEFT AXIS DEVIATION [QRS AXIS < -30] INTRAVENTRICULAR CONDUCTION DELAY [130+ ms QRS DURATION] MODERATE VOLTAGE CRITERIA FOR LVH, CONSIDER NORMAL VARIANT [MEETS CRITERIA IN ONE OF: R(aVL), S(V1), R(V5), R(V5/V6)+S(V1)] Compared to ECG 12/14/2022 06:03:25 Left-axis deviation now present Electronically Signed On 12-14-2022 11:16:00 CDT by Shayan Stout M.D. [id number]
[2022-12-14 12:24] LABS: Glucose Point of Care 122 mg/dL (70-110)
[2022-12-14] MEDS: ipratropium-albuterol 3 mL Neb INHALATION ×3 (12:34→19:19)
--- NOTE | 2022-12-14 12:47 | PM.CONSULT ---
Providers/Reason For Consult Consulting Physician/Specialty*: Dr. Zuniga, cardiology Reason for Consult*: NSTEMI, elevated troponin Attending Physician: Beckie Stafford MD Primary Care Provider: Christofer Varghese MD History of Present Illness History of Present Illness Richard Huffman is a 62 year old male with PMHx of mechanical valve placement at the aortic position on 10/01/[address] Correia.? Apparently he developed postoperative infection of the valve (staph epidermidis IE) and was diagnosed with aortic root abscess during his last hospital admission.? Subsequently he was transferred to the [facility] on 02/07/2017.? On 02/22/2017, patient underwent a redo aortic valve replacement with a 23 mm magna bioprosthetic valve and aortic root reconstruction with a wine pericardial patch by Dr. Bhupendra Lo.? He has a history of atrial arrhythmia/atrial fibrillation on PO amiodarone, HFpEF, ESRD-DD (M, W, F), HTN, HLD, XI, COPD, anemia and tobacco abuse. He is still making urine and denies any urinary complaints. He was recently found to have moderately severe MR and is due to have ALEXANDER. He started having chest pains this morning and came to the ER. He underwent dialysis today. Labs showed anemia with Hb<7 and hyperkalemia. He got 1 unit of pRBC. Review of Systems Const: Reports: fatigue and malaise; Denies: fever(s) or chills Eyes: Denies: change in vision Card: Reports: chest pain Resp: Reports: dyspnea GI: Denies: abdominal pain : Denies: flank pain or difficulty urinating Musc: Denies: neck pain or back pain Skin/Breast: Denies: rash Neuro: Denies: headache(s), numbness in extremities, weakness in extremities, sensory changes, dizziness or Slurred speech present Endo: Denies: polydipsia Medications/Allergies Home Medications Medication Instructions Recorded Confirmed Last Taken Type bumetanide 2 mg tablet 2 mg PO BID 11/28/20 12/14/22 08/21/22 History aspirin 81 mg chewable tablet 81 mg PO DAILY 01/26/22 12/14/22 08/21/22 History vit B,C-folic ac 800 mcg-zinc 12.5 1 tab PO BEDTIME 01/26/22 12/14/22 08/21/22 History mg-selen-D3 2,000 unit-vit E tablet (RenaPlex-D) cholecalciferol (vitamin D3) 125 125 mcg PO DAILY 05/26/22 12/14/22 08/21/22 History mcg (5,000 unit) capsule hydralazine 50 mg tablet 50 mg PO TID 05/28/22 12/14/22 08/21/22 History torsemide 100 mg tablet 100 mg PO DAILY 05/28/22 12/14/22 08/21/22 History metoprolol succinate 50 mg 50 mg PO BID 07/15/22 12/14/22 08/21/22 History tablet,extended release 24 hr oxycodone-acetaminophen 5 mg-325 0.5 - 1 tab PO Q4H PRN Pain 07/15/22 12/14/22 Unknown History mg tablet cyanocobalamin (vitamin B-12) 1,000 mcg PO DAILY 08/25/22 12/14/22 Unknown History 1,000 mcg tablet (Vitamin B-12) metolazone 5 mg tablet 5 mg PO QAM 08/25/22 12/14/22 Unknown History docusate sodium 100 mg capsule 100 mg PO BID 10/01/22 12/14/22 Unknown History (Stool Softener) hydrocodone 5 mg-acetaminophen 325 1 tab PO BID PRN Pain 10/01/22 12/14/22 Unknown History mg tablet budesonide 0.5 mg/2 mL suspension 0.5 mg (2 mL) inhalation QPM #60 mL 10/13/22 12/14/22 Unknown Rx for nebulization ipratropium 0.5 mg-albuterol 3 mg 3 ml inhalation Q6H PRN Shortness 10/13/22 12/14/22 Unknown Rx (2.5 mg base)/3 mL nebulization Of Breath #180 mL soln escitalopram oxalate 10 mg tablet 10 mg PO DAILY #60 tabs 10/20/22 12/14/22 Unknown Rx (Lexapro) ropinirole 1 mg tablet 1 mg PO DAILY #90 tabs 10/20/22 12/14/22 Unknown Rx Diabetic shoes #1 ea 10/27/22 12/14/22 Unknown Rx fluticasone propionate 50 2 spray intranasal DAILY #16 grams 11/23/22 12/14/22 Unknown Rx mcg/actuation nasal spray,suspension (Flonase Allergy Relief) albuterol sulfate 90 mcg/actuation 1 inh inhalation QID PRN shortness 12/01/22 12/14/22 Unknown Rx aerosol inhaler (Ventolin HFA) of breath or wheezing #8.5 grams amiodarone 100 mg tablet 100 mg PO DAILY #30 tabs 12/10/22 12/14/22 Unknown Rx lisinopril 40 mg tablet 40 mg PO DAILY #90 tabs 12/10/22 12/14/22 Unknown Rx doxycycline hyclate 100 mg tablet 100 mg PO DAILY 12/14/22 12/14/22 Unknown History Allergies Allergy/AdvReac Type Severity Reaction Status Date / Time latex Allergy Mild Blisters Verified 12/10/22 09:10 petrolatum,white Allergy Mild Blisters Verified 12/10/22 09:10 [From A and D Barrier] amlodipine Allergy Unknown Verified 12/10/22 09:10 Current Medications Generic Name Dose Route Start Last Admin Trade Name Freq PRN Reason Stop Dose Admin Albuterol/Ipratropium 3 ml 12/14/22 08:00 12/14/22 12:34 Ipratropium-Albuterol 3 Ml Neb INHALATION 3 ml Q4H.RESPIRATORY KENNEDY Administration Amiodarone HCl 100 mg 12/14/22 09:00 12/14/22 08:02 Amiodarone 200 Mg Tablet PO 100 mg DAILY KENNEDY Administration Aspirin 81 mg 12/14/22 09:00 12/14/22 08:02 Aspirin 81 Mg Chew Tablet PO 81 mg DAILY KENNEDY Administration Budesonide 0.5 mg 12/14/22 08:00 12/14/22 09:24 Budesonide 0.5 Mg/2 Ml Neb INHALATION Not Given BID.RESPIRATORY KENNEDY Bumetanide 1 mg 12/14/22 09:00 12/14/22 08:02 Bumetanide 1 Mg Tablet PO 1 mg BID KENNEDY Administration Cyanocobalamin 1,000 mcg 12/14/22 09:00 12/14/22 08:01 Cyanocobalamin 1,000 Mcg Tablet PO 1,000 mcg DAILY KENNEDY Administration Dexamethasone 6 mg 12/14/22 06:30 12/14/22 09:44 Dexamethasone 10 Mg/Ml Inj IVP 6 mg Q24H KENNEDY Administration Escitalopram Oxalate 10 mg 12/14/22 09:00 12/14/22 08:02 Escitalopram 10 Mg Tablet PO 10 mg DAILY KENNEDY Administration Heparin Sodium (Porcine) 10,000 unit 12/14/22 07:30 12/14/22 09:58 Heparin, Porcine 1,000 Unit/Ml Inj 10 Ml INTRACATH 10,000 unit PRN PRN Administration DIALYSIS USE ONLY Protocol Heparin Sodium (Porcine) 1,000 unit 12/14/22 07:30 12/14/22 09:57 Heparin, Porcine 1,000 Unit/Ml Inj 10 Ml IV 1,000 unit PRN PRN Administration DIALYSIS USE ONLY Protocol Hydralazine HCl 50 mg 12/14/22 09:00 12/14/22 07:23 Hydralazine 50 Mg Tablet PO 50 mg TID KENNEDY Administration Ceftriaxone Sodium 1,000 mg/ 50 mls @ 100 mls/hr 12/14/22 09:00 12/14/22 09:43 Sodium Chloride IV 100 mls/hr Q24H KENNEDY Administration Protocol Azithromycin 500 mg/ Sodium 250 mls @ 250 mls/hr 12/14/22 06:30 12/14/22 09:42 Chloride IV 250 mls/hr Q24H KENNEDY Administration Protocol Heparin Sodium/Sodium Chloride 25,000 unit in 500 mls @ 0 mls/hr 12/14/22 06:20 12/14/22 09:45 Heparin Drip IV 14 unit/kg/hr .Q0M KENNEDY 31.75 mls/hr Administration Protocol Per Protocol Metoprolol Succinate 50 mg 12/14/22 09:00 12/14/22 07:23 Metoprolol Succinate Er (24 Hr) 50 Mg Tablet PO 50 mg BID KENNEDY Administration Pantoprazole Sodium 40 mg 12/14/22 08:00 12/14/22 09:44 Pantoprazole 40 Mg Sdv IVP 40 mg Q12H KENNEDY Administration Ropinirole HCl 1 mg 12/14/22 09:00 12/14/22 08:02 Ropinirole 1 Mg Tablet PO 1 mg DAILY KENNEDY Administration Sucralfate 1 gm 12/14/22 08:00 12/14/22 08:02 Sucralfate 1 Gm Tablet PO 1 gm Q12H KENNEDY Administration PFSH Acute PFSH: Medical History Atrial flutter Chronic kidney disease COPD (chronic obstructive pulmonary disease) Diabetes DJD (degenerative joint disease) 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 ESRD on 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 History of renal dialysis Hyperlipidemia Hypertension Intermittent palpitations XI (obstructive sleep apnea) PVD (peripheral vascular disease) Severe tobacco use disorder Surgical History H/O aortic valve replacement H/O aortic valve replacement with tissue graft H/O foot surgery Family History Grandmother Diabetes Grandfather Diabetes Denies family history of CAD (coronary artery disease) Clotting disorder Dementia Chronic kidney disease (CKD) Suicide Anesthesia complication Bleeding disorder Lung disease Cancer Stroke Social History Smoking and tobacco status: current every day smoker cigarettes Packs smoked per day: 1 Years cigarettes smoked: 46 Alcohol intake: never Substance/Drug Use: never Lives independently: Yes (with girlfriend) Household members: significant other Marital status: Single service: No 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al status: disabled 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 Pets and animals: Yes Special araceli needs: No Agree to transfusion: Yes Vitals/I&O/Wt Last Vital Signs Temp 98.2 F 12/14/22 10:28 Pulse 86 12/14/22 12:15 Resp 18 12/14/22 12:00 BP 156/73 12/14/22 10:28 Pulse Ox 100 12/14/22 12:00 O2 Del Method Nasal Cannula 12/14/22 12:00 O2 Flow Rate 2 12/14/22 12:00 12/13/22 12/14/22 12/14/22 22:59 06:59 14:59 Intake Total 0.833 / 0.833 Balance 0.833 / 0.833 Weight last 48 hrs Weight 250 lb Physical Exam Const: COMMON NORMALS: no acute distress, patient oriented x3 and alert GENERAL APPEARANCE: cooperative, comfortable, well kempt and well hydrated HENMT: COMMON NORMALS: hearing grossly normal bilaterally, external ears normal and moist oral mucous membranes FACE & SINUS: normal facial exam NOSE: no Epistaxis present EXTERNAL EAR: Yes external ears normal MOUTH: lip normal Eye: COMMON NORMALS: EOMs intact bilaterally and no scleral icterus GENERAL EYE: appearance normal, both eyes and all related structures ALIGNMENT: Yes alignment normal Neck/C-Spine: COMMON NORMALS: no lymphadenopathy, supple and no JVD GENERAL: Yes normal visual inspection and Yes trachea midline CAROTIDS: Yes normal carotid upstroke Lymph: LYMPHATIC: no lymphadenopathy noted Chest: COMMONS NORMALS: normal inspection of the chest and normal palpation of entire chest wall CHEST: Yes Symmetrical chest wall rise and No tenderness Resp: COMMON NORMALS: clear to auscultation bilaterally (except at bases; b/l basal crakles) EFFORT & INSPECTION: Yes able to speak in complete sentences, No respiratory distress and No labored AUSCULTATION: clear to auscultation bilaterally (except at bases; b/l basal crakles), no crackles, no rales, no rhonchi and no wheezes Cardio: COMMON NORMALS: no JVD, regular rate, regular rhythm, S1 normal heart sound present, S2 normal heart sound present and Peripheral pulses 2+ throughout PALPATION: normal PMI RATE: regular rate RHYTHM: regular rhythm HEART SOUNDS: S1 normal heart sound present, S2 normal heart sound present, no click, no gallops and no murmurs BRUITS: no carotid bruits PERIPHERAL PULSES: Peripheral pulses 2+ throughout, radial pulses present, posterior tibial pulses present and dorsalis pedis present GI: COMMON NORMALS: Soft to palpation AUSCULTATION: Yes normoactive bowel sounds PALPATION: Yes Soft to palpation, No Tenderness to palpation present (GI), No Guarding due to palpation present (GI) and No Rigid due to palpation Extremity: GENERAL: No clubbing, No cyanosis, Yes edema and No pallor Neuro: COMMON NORMALS: patient oriented x3 and no focal motor deficits SENSORIUM/ORIENTATION: Yes alert Psych: COMMON NORMALS: Normal thought process present and speech normal APPEARANCE: Yes well kempt SPEECH: Yes normal speech MOOD & AFFECT: Yes euthymic mood THOUGHT PROCESS: Normal thought process present THOUGHT CONTENT: Yes Normal thought content present Data 12/14/22 18:33 12/14/22 18:33 Other Labs: Baseline troponin T 208--> 213--> 238 NT ProBNP: [id number] Micro: Microbiology 12/14/22 07:54 Blood Culture - Preliminary Blood SPECIMEN COLLECTED 12/14/22 07:50 Blood Culture - Preliminary Blood SPECIMEN COLLECTED Other data: 07/16/22 Procedure(s): CV. echo complete* [id number] ?CONCLUSIONS ?Normal left ventricular size and systolic function, EF 59 %. ?Abnormal septal motion consistent with conduction abnormality. ?Grade III/IV diastolic dysfunction (restrictive filling ?pattern), severely elevated filling pressures. ?Moderately increased left atrial size. ?Thickened mitral valve. Moderate mitral annular calcification,?? ?Mitral annular ring.??Moderately severe eccentric mitral ?regurgitation with the regurgitant jet directed posteriorly. ?The bioprosthetic transcatheter valve appears to be well- ?positioned.? The peak velocity across the aortic valve was 2.59 ?m/s with a peak gradient of 27 and a mean gradient of 12 mmHg.? ?The valve area was calculated to be 0.94 cm squared. ?Dilated IVC with decreased respiratory variation. ?The PA pressure could not be calculated because of the technical ?problems ?There is no pericardial effusion. ?Compared to the study from 12/03/2020, the peak gradient across ?the aortic valve remains more or less unchanged.? The mitral ?regurgitation appears to be more severe. A&P Assessment and plan (1) Chest pain: Appears to be type 2 in setting of pulmonary edema -fluid management with dialysis -on heparin. may need to d/c that based on f/u labs in morning -no active bleed this time. denies any hematochezia, karely. 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 (5) ESRD on hemodialysis: (6) Severe tobacco use disorder: (7) Anemia: s/p 1 unit pRBC (8) COPD (chronic obstructive pulmonary disease): (9) H/O aortic valve replacement with tissue graft: (10) Hypertension: Qualifiers: Hypertension type: essential hypertension Qualified Code(s): I10 - Essential (primary) hypertension (11) Hyperlipidemia: Qualifiers: Hyperlipidemia type: mixed hyperlipidemia Qualified Code(s): E78.2 - Mixed hyperlipidemia (12) Diabetes: Qualifiers: Diabetes mellitus complication detail: with other arthropathy Diabetes mellitus complication status: with diabetic arthropathy Diabetes mellitus care home insulin use: with care home use Diabetes mellitus type: type 2 Qualified Code(s): E11.618 - Type 2 diabetes mellitus with other diabetic arthropathy; 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 Coding Level of Care Code 44546 Diagnoses Chest pain R07.9 NSTEMI (non-ST elevated myocardial infarction) I21.4 Atrial fibrillation I48.91 Moderate to severe mitral regurgitation I34.0 ESRD on hemodialysis N18.6; Z99.2 Severe tobacco use disorder F17.200 Anemia D64.9 COPD (chronic obstructive pulmonary disease) J44.9 H/O aortic valve replacement with tissue graft Z95.4 Hypertension I10 Hypertension type: essential hypertension Hyperlipidemia E78.2 Hyperlipidemia type: mixed hyperlipidemia Diabetes E11.618; Z79.4 Diabetes mellitus complication detail: with other arthropathy Diabetes mellitus complication status: with diabetic arthropathy Diabetes mellitus care home insulin use: with care home use Diabetes mellitus type: type 2
--- NOTE | 2022-12-14 12:56 | PC.NURSE ---
Patient's mental status has changed. more lethargic than this morning. HGB is low, type and screen pending and will receive blood transfusion after resulted. Physician aware.
[2022-12-14] MEDS: sodium chloride 0.9% 100 mL Bag 50 ML IV (13:59)
--- NOTE | 2022-12-14 14:56 | PM.MISC ---
Miscellaneous Note Purpose of Documentation: Overnight labs and H&P reviewed. Patient undergoing dialysis this morning. Hemoglobin noted to be less than 7. 1 unit packed red blood cell transfusion ordered. Repeat labs after dialysis to ensure resolution of hyperkalemia. Resume home dose of doxycycline for chronic suppression 6-hour troponin delta at 30 with ongoing intermittent chest pain. Consult cardiology.
[2022-12-14 17:36] LABS: Glucose Point of Care 162 mg/dL (70-110)
[2022-12-14] MEDS: doxycycline 100 mg Tablet PO (17:56)
--- NOTE | 2022-12-14 18:38 | PC.NURSE ---
Shift summary: Uneventful shift. Received dialysis treatment and goal of 3.5L was removed. ! unit of blood received. Was lethargic during dialysis treatment but was once again awake and alert after dialysis and receiving a unit of blood. Up to a chair for dinner. No urine output today, patient states that he still makes urine, but very little and it is not abnormal for him to not make any urine during some days.
[2022-12-14 18:43] LABS: Hematocrit 24.8 % (37-53)
[2022-12-14 19:02] LABS: Partial Thromboplastin Time 67.7 SECONDS (23.9-36.7)
[2022-12-14 19:05] LABS: Alanine Aminotransferase 182 U/L (0-41); Albumin Level 3.8 g/dL (3.5-5.2); Alkaline Phosphatase 134 U/L (40-130); Anion Gap 18.9 (5-19); Aspartate Amino Transferase 213 U/L (0-40); Blood Urea Nitrogen 39 mg/dL (8-23); Calcium 8.8 mg/dL (8.5-10.5); Carbon Dioxide 28 mmol/L (22-29); Chloride 91 mmol/L (98-107); Globulin 2.6 g/dL (1.3-4.6); Glomerular Filtration Rate 15.8 mL/min (90-130); Glucose 174 mg/dL (65-115); Osmolality Calculated 290 mOsm/kg (285-295); Potassium 4.9 mmol/L (3.5-5.1); Sodium 133 mmol/L (136-145); Total Bilirubin 1.2 mg/dL (0.15-1.2); Total Protein 6.4 g/dL (6.6-8.7)
[2022-12-14] MEDS: budesonide 0.5 mg/2 mL Neb INHALATION (19:19)
[2022-12-14] MEDS: b-complex-vitamin c Tablet 1 EACH PO (20:48)
[2022-12-14] MEDS: atorvastatin 40 mg Tablet PO (20:49)
[2022-12-14 21:08] LABS: Glucose Point of Care 215 mg/dL (70-110)
[2022-12-14 23:19] LABS: Hematocrit 21.4 % (37-53)
[2022-12-15] VITALS (238 sets, daily range): BP systolic 102–156; BP diastolic 50–81; PULSE 55–117; RESP 0–39; TEMP 36.7–37; O2SAT 88–100
[2022-12-15 01:13] LABS: Basophils % 0.2 %; Eosinophils % 0.1 %; Hematocrit 22.2 % (37-53); Lymphocytes # 1.4 10^3/uL (0.8-4.8); Lymphocytes % 11.6 %; Mean Corpuscular HGB Conc 32.4 g/dL (30-55); Mean Corpuscular Hemoglobin 33.2 pg (27-33); Mean Corpuscular Volume 102.3 fl (82-101); Mean Platelet Volume 10.1 fL (7.4-10.4); Monocytes # 0.9 10^3/uL (0.2-0.9); Monocytes % 7.6 %; Neutrophils # 9.77 10^3/uL (1.8-7.7); Neutrophils % 79.4 %; Nucleated Red Blood Cells # 0.1 /100WBC; Nucleated Red Blood Cells % 0.4 %; Platelet Count 159 10^3/cmm (157-399); Red Blood Count 2.17 10^6/uL (3.85-5.65); Red Cell Distribution Width 19.1 % (12.1-15.1); White Blood Count 12.29 10^3/uL (3.29-11.43)
[2022-12-15 01:21] LABS: Alanine Aminotransferase 162 U/L (0-41); Albumin Level 3.4 g/dL (3.5-5.2); Alkaline Phosphatase 125 U/L (40-130); Anion Gap 18.9 (5-19); Aspartate Amino Transferase 153 U/L (0-40); Blood Urea Nitrogen 52 mg/dL (8-23); Calcium 8.5 mg/dL (8.5-10.5); Carbon Dioxide 26 mmol/L (22-29); Chloride 91 mmol/L (98-107); Globulin 2.3 g/dL (1.3-4.6); Glucose 186 mg/dL (65-115); Magnesium 2.1 mg/dL (1.7-2.3); Osmolality Calculated 291 mOsm/kg (285-295); Phosphorus 6.7 mg/dL (2.5-4.5); Potassium 4.9 mmol/L (3.5-5.1); Sodium 131 mmol/L (136-145); Total Bilirubin 0.7 mg/dL (0.15-1.2); Total Protein 5.7 g/dL (6.6-8.7)
[2022-12-15 01:24] LABS: Partial Thromboplastin Time 72.9 SECONDS (23.9-36.7)
[2022-12-15] MEDS: heparin drip 25,000 UNIT/500 ML PREMIX 31.75 UNIT IV (03:51)
[2022-12-15 06:31] LABS: Basophils % 0.3 %; Eosinophils # 0.1 10^3/uL (0.0-0.8); Eosinophils % 0.4 %; Hematocrit 21.7 % (37-53); Lymphocytes # 1.7 10^3/uL (0.8-4.8); Lymphocytes % 14.2 %; Mean Corpuscular HGB Conc 32.7 g/dL (30-55); Mean Corpuscular Hemoglobin 33.3 pg (27-33); Mean Corpuscular Volume 101.9 fl (82-101); Mean Platelet Volume 9.8 fL (7.4-10.4); Monocytes # 0.9 10^3/uL (0.2-0.9); Monocytes % 7.2 %; Neutrophils # 9.23 10^3/uL (1.8-7.7); Nucleated Red Blood Cells # 0.1 /100WBC; Nucleated Red Blood Cells % 0.4 %; Platelet Count 164 10^3/cmm (157-399); Red Blood Count 2.13 10^6/uL (3.85-5.65); Red Cell Distribution Width 18.8 % (12.1-15.1); White Blood Count 11.98 10^3/uL (3.29-11.43)
[2022-12-15] MEDS: dexamethasone 10 mg/mL INJ 6 MG IVP (06:33)
[2022-12-15 06:47] LABS: Phosphorus 6.8 mg/dL (2.5-4.5)
[2022-12-15 06:48] LABS: Alanine Aminotransferase 153 U/L (0-41); Albumin Level 3.3 g/dL (3.5-5.2); Alkaline Phosphatase 113 U/L (40-130); Anion Gap 18.5 (5-19); Aspartate Amino Transferase 128 U/L (0-40); Blood Urea Nitrogen 60 mg/dL (8-23); Calcium 8.4 mg/dL (8.5-10.5); Carbon Dioxide 27 mmol/L (22-29); Chloride 91 mmol/L (98-107); Globulin 2.3 g/dL (1.3-4.6); Glomerular Filtration Rate 12.5 mL/min (90-130); Glucose 146 mg/dL (65-115); Osmolality Calculated 294 mOsm/kg (285-295); Potassium 4.5 mmol/L (3.5-5.1); Sodium 132 mmol/L (136-145); Total Bilirubin 0.6 mg/dL (0.15-1.2); Total Protein 5.6 g/dL (6.6-8.7)
[2022-12-15 06:51] LABS: Creatinine Clr Calc Pharmacy 18.8657
[2022-12-15] MEDS: pantoprazole 40 mg SDV IVP ×2 (07:54→20:48)
[2022-12-15] MEDS: sucralfate 1 gm Tablet PO ×2 (07:54→20:48)
[2022-12-15] MEDS: bumetanide 1 mg Tablet PO ×2 (08:03→17:23)
[2022-12-15] MEDS: cyanocobalamin 1,000 mcg Tablet 1000 MCG PO (08:03)
[2022-12-15] MEDS: ropinirole 1 mg Tablet PO (08:03)
[2022-12-15] MEDS: hyDRALAzine 50 mg Tablet PO ×3 (08:03→20:48)
[2022-12-15] MEDS: amiodarone 200 mg Tablet 100 MG PO (08:04)
[2022-12-15] MEDS: metoprolol succinate ER (24 HR) 50 mg Tablet PO ×2 (08:04→17:23)
[2022-12-15] MEDS: doxycycline 100 mg Tablet PO ×2 (08:04→17:23)
[2022-12-15] MEDS: escitalopram 10 mg Tablet PO (08:04)
[2022-12-15] MEDS: aspirin 81 mg Chew Tablet PO (08:04)
[2022-12-15] MEDS: cefTRIAXone 1,000 MG in sodium chloride 0.9% (plus) 50 ML 100 MG IV (08:05)
[2022-12-15 08:09] LABS: Partial Thromboplastin Time 91.8 SECONDS (23.9-36.7)
[2022-12-15] MEDS: budesonide 0.5 mg/2 mL Neb INHALATION ×2 (08:51→19:32)
[2022-12-15] MEDS: ipratropium-albuterol 3 mL Neb INHALATION ×5 (08:51→23:37)
[2022-12-15] MEDS: nicotine 14 mg Patch 1 PATCH TRANSDERMA (09:34)
--- NOTE | 2022-12-15 10:54 | PM.PN ---
Subjective Subjective: doing well Medications: Reviewed: Yes Vitals/I&O/Wt Last Vital Signs Temp 98.3 F 12/15/22 08:05 Pulse 80 12/15/22 08:05 Resp 16 12/15/22 08:00 BP 156/81 12/15/22 08:05 Pulse Ox 91 12/15/22 08:05 O2 Del Method Room Air 12/15/22 08:05 O2 Flow Rate 2 12/15/22 01:00 12/14/22 12/15/22 12/15/22 22:59 06:59 14:59 Intake Total 550 / 1100 500 / 1600 192.875 / 192.875 Output Total 400 / 4375 Balance 550 / -2875 100 / -2775 192.875 / 192.875 Weight last 48 hrs Weight 97.7 kg Weight 113.398 kg Physical Exam Narrative: awake , alert wheezing jenae per report No edema Data 12/15/22 06:24 12/15/22 06:24 Micro: Microbiology 12/14/22 04:45 Urine Culture - Preliminary Urine,Clean Catch Streptococcus species 12/14/22 07:54 Blood Culture - Preliminary Blood NEGATIVE TO DATE 12/14/22 07:50 Blood Culture - Preliminary Blood NEGATIVE TO DATE A&P Assessment and plan (1) ESRD on hemodialysis: Plan 1. End-stage renal disease: On [facility] schedule as outpatient, last dialysis was on Wednesday, now presents with volume overload and hyperkalemia and altered mental status. -s/p HD yesterday and next HD in [place] 2. Hyperkalemia: HD as above and should be on low K diet 3. Anemia:, Complaints of hematochezia, GI work-up as outpatient, ordered [place] 4. History of CHF now with pulmonary edema, HD today and ultrafiltration aggressively as tolerated 5. Acute on chronic respiratory failure, multifactorial 6. Atrial fibrillation: Management per primary team 7. History of aortic valve replacement with tissue graft for history of endocarditis in the past Patient evaluated using audiovisual cart. Time spent 45 minutes Attestations Medical Necessity Statement*: per mediicne team Coding Level of Care Code Acute Code for Chg Fwd Diagnoses ESRD on hemodialysis N18.6; Z99.2
--- NOTE | 2022-12-15 15:00 | P.PN_ITS ---
Subjective Subjective: Chest pain is better today. Status post dialysis yesterday. Hemoglobin stable at 7.1 after blood transfusion yesterday.. Potassium normalized postdialysis. Medications: Reviewed: Yes Vitals/I&O/Wt Last Vital Signs Temp 98.3 F 12/15/22 08:05 Pulse 68 12/15/22 14:00 Resp 16 12/15/22 12:40 BP 115/63 12/15/22 12:45 Pulse Ox 92 12/15/22 12:40 O2 Del Method Room Air 12/15/22 12:40 O2 Flow Rate 2 12/15/22 01:00 12/15/22 12/15/22 12/15/22 06:59 14:59 22:59 Intake Total 500 / 1600 192.875 / 192.875 Output Total 400 / 4375 Balance 100 / -2775 192.875 / 192.875 Weight last 48 hrs Weight 97.7 kg Weight 113.398 kg Physical Exam Narrative: General: No acute distress, AO x3 HEENT: PERRLA, pupils bilaterally equal and reactive, pallors not present Chest: Normal vesicular breath sounds, no added sounds, equal good air entry bilaterally CVS: S1-S2 regular, no murmurs, no tachycardia, no gallops, no rubs Abdomen: Soft, nontender, no organomegaly, bowel sounds present Neuro: No focal deficits, no facial deformity, AO x3, power 5/5 in all limbs Extremities: No edema clubbing or cyanosis Data 12/15/22 06:24 12/15/22 06:24 Micro: Microbiology 12/15/22 00:30 Gram Stain - Final Sputum - Expectorated Sputum 12/14/22 04:45 Urine Culture - Preliminary Urine,Clean Catch Streptococcus species 12/14/22 07:54 Blood Culture - Preliminary Blood NEGATIVE TO DATE 12/14/22 07:50 Blood Culture - Preliminary Blood NEGATIVE TO DATE A&P Assessment and plan (1) Acute hyperkalemia: resolved post HD (2) Moderate to severe mitral regurgitation: (3) XI (obstructive sleep apnea): (4) COPD (chronic obstructive pulmonary disease): (5) Tobacco abuse counseling: (6) ESRD on hemodialysis: (7) Anemia: (8) ESRD (end stage renal disease): (9) Acute exacerbation of congestive heart failure: (10) Hyperlipidemia: Qualifiers: Hyperlipidemia type: mixed hyperlipidemia Qualified Code(s): E78.2 - Mixed hyperlipidemia (11) Hypertension: Qualifiers: Hypertension type: essential hypertension Qualified Code(s): I10 - Essential (primary) hypertension (12) Diabetes: Qualifiers: Diabetes mellitus type: type 2 Diabetes mellitus 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 Multifactorial ?COPD exacerbation, ? Systolic and diastolic CHF exacerbation ? Fluid overload - s/p HD on 12/14 with improved respiratory status Atrial fibrillation detected by EMS, also possible wide-complex tachycardia, currently atrial fibrillation with slow ventricular response ? Continue home amiodarone ? Continue home metoprolol ?Heparin drip ? Patient has moderate to severe mitral valve regurg, crdiology consulted to assess for ALEXANDER Moderate to severe mitral valve regurg ? Planned ALEXANDER, inpatient vs outpatient per cardiology recommendations COPD exacerbation ? Decadron 6 mg IV push every 24 hours ? Smoking cessation counseling ? Continue Rocephin and doxycycline ? DuoNeb, budesonide Systolic and diastolic CHF exacerbation, with fluid overload ? Nephrology consulted for dialysis, s/p HD on 12/14 ? Continue p.o. Bumex 1 mg p.o. twice daily Chest pain, with NSTEMI ? Serial EKGs, serial troponins with elevated 6 hr delta - Cardioloy consulted with + delta and ongoing chest pain thought to be type 2 MN ? discontinue heparin drip ? Continue aspirin, statin, beta-reggie ? Monitor for chest pain Hyperkalemia ? Monitor telemetry, ? Received insulin, D50, sodium bicarb ? improved after dialysis Anemia, with complaints of hematochezia as outpatient ? As outpatient there is plans on a colonoscopy ? No complaints of hematochezia currently ? 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, on chronic doxycycline suppression Transfer to [facility] Attestations Medical Necessity Statement*: ALEXANDER tomorrow, closely monitor respiratory status, blood transfusion today Coding Level of Care Code Acute Code for Chg Fwd Moderate MDM includes number and complexity of problems actively addressed during encounter, amount and/or complexity of data reviewed/ordered and described risk of complication, morbidity or mortality of management as documented Diagnoses Acute hyperkalemia E87.5 Moderate to severe mitral regurgitation I34.0 XI (obstructive sleep apnea) G47.33 COPD (chronic obstructive pulmonary disease) J44.9 Tobacco abuse counseling Z71.6 ESRD on hemodialysis N18.6; Z99.2 Anemia D64.9 ESRD (end stage renal disease) N18.6 Acute exacerbation of congestive heart failure I50.9 Hyperlipidemia E78.2 Hyperlipidemia type: mixed hyperlipidemia Hypertension I10 Hypertension type: essential hypertension Diabetes E11.618; Z79.4 Diabetes mellitus type: type 2 Diabetes mellitus jail insulin use: with jail use Diabetes mellitus complication status: with diabetic arthropathy Diabetes mellitus complication detail: with other arthropathy Atrial fibrillation I48.91 COPD exacerbation J44.1 Chest pain R07.9 Acute hypoxic respiratory failure J96.01 NSTEMI (non-ST elevated myocardial infarction) I21.4 Elevated lactic acid level R79.89
[2022-12-15 15:02] LABS: Partial Thromboplastin Time 54.9 SECONDS (23.9-36.7)
[2022-12-15] MEDS: sodium chloride 0.9% 100 mL Bag 50 ML IV (15:49)
--- NOTE | 2022-12-15 16:25 | PC.NURSE ---
Transfer Note Patient transferred to CSU from ICU via wheelchair. Handoff report given to JACOB Florentino. Upon transfer patient is alert/oriented x4, on room air. Blood infusing through PICC line at time of transfer. Patient oriented to environment and equipment. Covering service notified. Orders reviewed and will continue to monitor. 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
--- NOTE | 2022-12-15 16:58 | PC.NURSE ---
Patient came to CSU from ICU via a wheelchair. He currently has blood infusing in his PICC line.
[2022-12-15 17:41] LABS: Glucose Point of Care 300 mg/dL (70-110)
[2022-12-15 20:11] LABS: Glucose Point of Care 302 mg/dL (70-110)
[2022-12-15] MEDS: atorvastatin 40 mg Tablet PO (20:48)
[2022-12-15] MEDS: b-complex-vitamin c Tablet 1 EACH PO (20:48)
[2022-12-16] VITALS (70 sets, daily range): BP systolic 123–164; BP diastolic 56–98; PULSE 69–101; RESP 0–33; TEMP 36.8–37.2; O2SAT 78–99
[2022-12-16] MEDS: ipratropium-albuterol 3 mL Neb INHALATION ×4 (03:03→20:00)
[2022-12-16 05:14] LABS: Basophils % 0.2 %; Eosinophils % 0.1 %; Hematocrit 23.4 % (37-53); Lymphocytes # 1.6 10^3/uL (0.8-4.8); Lymphocytes % 13.1 %; Mean Corpuscular HGB Conc 32.5 g/dL (30-55); Mean Corpuscular Hemoglobin 32.5 pg (27-33); Mean Platelet Volume 10.2 fL (7.4-10.4); Monocytes % 8.5 %; Neutrophils # 9.15 10^3/uL (1.8-7.7); Neutrophils % 76.7 %; Nucleated Red Blood Cells # 0.1 /100WBC; Nucleated Red Blood Cells % 0.6 %; Platelet Count 172 10^3/cmm (157-399); Red Blood Count 2.34 10^6/uL (3.85-5.65); Red Cell Distribution Width 20.8 % (12.1-15.1); White Blood Count 11.94 10^3/uL (3.29-11.43)
[2022-12-16 05:37] LABS: Alanine Aminotransferase 115 U/L (0-41); Albumin Level 3.4 g/dL (3.5-5.2); Alkaline Phosphatase 113 U/L (40-130); Anion Gap 21.8 (5-19); Aspartate Amino Transferase 55 U/L (0-40); Calcium 8.7 mg/dL (8.5-10.5); Carbon Dioxide 24 mmol/L (22-29); Chloride 93 mmol/L (98-107); Globulin 2.3 g/dL (1.3-4.6); Glomerular Filtration Rate 9.1 mL/min (90-130); Glucose 195 mg/dL (65-115); Magnesium 2.2 mg/dL (1.7-2.3); Osmolality Calculated 308 mOsm/kg (285-295); Phosphorus 7.5 mg/dL (2.5-4.5); Potassium 4.8 mmol/L (3.5-5.1); Sodium 134 mmol/L (136-145); Total Bilirubin 0.4 mg/dL (0.15-1.2); Total Protein 5.7 g/dL (6.6-8.7)
[2022-12-16] MEDS: dexamethasone 10 mg/mL INJ 6 MG IVP (05:56)
[2022-12-16 06:04] LABS: Blood Urea Nitrogen 82 mg/dL (8-23)
[2022-12-16 06:42] LABS: Glucose Point of Care 210 mg/dL (70-110)
[2022-12-16] MEDS: budesonide 0.5 mg/2 mL Neb INHALATION ×2 (07:20→20:00)
[2022-12-16] MEDS: cefTRIAXone 1,000 MG in sodium chloride 0.9% (plus) 50 ML 100 MG IV (08:13)
[2022-12-16] MEDS: sucralfate 1 gm Tablet PO ×2 (08:25→21:04)
[2022-12-16] MEDS: cyanocobalamin 1,000 mcg Tablet 1000 MCG PO (08:25)
[2022-12-16] MEDS: aspirin 81 mg Chew Tablet PO (08:26)
[2022-12-16] MEDS: doxycycline 100 mg Tablet PO ×2 (08:26→17:59)
[2022-12-16] MEDS: bumetanide 1 mg Tablet PO ×2 (08:26→17:59)
[2022-12-16] MEDS: hyDRALAzine 50 mg Tablet PO ×3 (08:26→21:04)
[2022-12-16] MEDS: amiodarone 200 mg Tablet 100 MG PO (08:26)
[2022-12-16] MEDS: ropinirole 1 mg Tablet PO (08:26)
[2022-12-16] MEDS: escitalopram 10 mg Tablet PO (08:26)
[2022-12-16] MEDS: nicotine 14 mg Patch 1 PATCH TRANSDERMA (08:27)
[2022-12-16] MEDS: pantoprazole 40 mg SDV IVP ×2 (08:27→21:04)
--- NOTE | 2022-12-16 08:50 | PC.NURSE ---
Patient left floor for dialysis at 0829.
[2022-12-16] MEDS: heparin, porcine 1,000 unit/mL INJ 10 mL 1000 UNIT IV (09:52)
--- NOTE | 2022-12-16 10:28 | PM.PN ---
Subjective Subjective: no new complaints Medications: Reviewed: Yes Vitals/I&O/Wt Last Vital Signs Temp 98.6 F 12/16/22 07:46 Pulse 89 12/16/22 07:46 Resp 25 H 12/16/22 07:46 BP 163/80 12/16/22 07:46 Pulse Ox 94 12/16/22 07:46 O2 Del Method Room Air 12/16/22 07:46 O2 Flow Rate 2 12/15/22 01:00 12/15/22 12/16/22 12/16/22 22:59 06:59 14:59 Intake Total 990.706 / 1183.581 Output Total 300 / 300 300 / 300 Balance 690.706 / 883.581 -270 / -270 Weight last 48 hrs Weight 97.7 kg Physical Exam Narrative: awake , alert wheezing jenae per report No edema Data 12/16/22 04:20 12/16/22 04:20 Micro: Microbiology 12/15/22 21:40 Occult Blood (FIT) - Final Stool 12/15/22 00:30 Gram Stain - Final Sputum - Expectorated Sputum 12/14/22 04:45 Urine Culture - Preliminary Urine,Clean Catch Streptococcus species 12/14/22 07:54 Blood Culture - Preliminary Blood NEGATIVE TO DATE 12/14/22 07:50 Blood Culture - Preliminary Blood NEGATIVE TO DATE A&P Assessment and plan (1) ESRD on hemodialysis: Plan 1. End-stage renal disease: On MWF schedule as outpatient, s/p HD wednesday AND HD again today 2. Hyperkalemia: HD as above and should be on low K diet 3. Anemia:, Complaints of hematochezia, GI work-up as outpatient, ordered [place] 4. History of CHF now with pulmonary edema, HD today and ultrafiltration aggressively as tolerated 5. Acute on chronic respiratory failure, multifactorial 6. Atrial fibrillation: Management per primary team 7. History of aortic valve replacement with tissue graft for history of endocarditis in the past Patient evaluated using audiovisual cart. Time spent 45 minutes Attestations Medical Necessity Statement*: per medicine team Coding Level of Care Code Acute Code for Chg Fwd Diagnoses ESRD on hemodialysis N18.6; Z99.2
--- NOTE | 2022-12-16 12:23 | P.ANESASSM_ITS ---
Pre-Anesthetic Assessment Height/Weight: Height 1.75 m Weight 97.7 kg Temp Pulse Resp BP Pulse Ox O2 Del Method O2 Flow Rate 98.6 F 89 25 H 163/80 94 Room Air 2 12/16/22 07:46 12/16/22 07:46 12/16/22 07:46 12/16/22 07:46 12/16/22 07:46 12/16/22 07:46 12/15/22 01:00 Preop Diagnosis: Tricuspid regurg. Evaluation. Operation Date: 12/16/22 12:30 Proposed Procedures p ALEXANDER(Not Applicable) - Bertin Tierney MD Familial anesthetic complications: None Social Tobacco and No alcohol Exam alert, oriented x 3, clear to auscultation bilaterally and regular rate & rhythm Airway Submandibular: within normal limits Cervical ROM: within normal limits Mallampati: Class I Dentition: chipped and caps Pulmonary Chronic Obstructive Pulmonary Disease, Sleep Apnea and Shortness of Breath CV/HEM Atrial Fibrillation, Coronary Artery Disease, Congestive Heart Failure, Hypertension, Myocardial Infarction and Peripheral Vascular Disease AVR x 3 (2016 x2) and 2021 Chronic Renal Failure Dialysis 12.16.2022 Hepatic None reported GI Gastroesophageal Reflux Disease Metabolic Diabetes Mellitus, Hyperlipidemia and Morbid Obesity [facility] [place] Osteoarthritis/DJD Anesthetic Plan ASA status: 4 Anesthesia: Anesthesia Evaluation and MAC Other: needs consent signed Medications/Allergies Home Medications Medication Instructions Recorded Confirmed Last Taken Type bumetanide 2 mg tablet 2 mg PO BID 11/28/20 12/14/22 08/21/22 History aspirin 81 mg chewable tablet 81 mg PO DAILY 01/26/22 12/14/22 08/21/22 History vit B,C-folic ac 800 mcg-zinc 12.5 1 tab PO BEDTIME 01/26/22 12/14/22 08/21/22 History mg-selen-D3 2,000 unit-vit E tablet (RenaPlex-D) cholecalciferol (vitamin D3) 125 125 mcg PO DAILY 05/26/22 12/14/22 08/21/22 History mcg (5,000 unit) capsule hydralazine 50 mg tablet 50 mg PO TID 05/28/22 12/14/22 08/21/22 History torsemide 100 mg tablet 100 mg PO DAILY 05/28/22 12/14/22 08/21/22 History metoprolol succinate 50 mg 50 mg PO BID 07/15/22 12/14/22 08/21/22 History tablet,extended release 24 hr oxycodone-acetaminophen 5 mg-325 0.5 - 1 tab PO Q4H PRN Pain 07/15/22 12/14/22 Unknown History mg tablet cyanocobalamin (vitamin B-12) 1,000 mcg PO DAILY 08/25/22 12/14/22 Unknown History 1,000 mcg tablet (Vitamin B-12) metolazone 5 mg tablet 5 mg PO QAM 08/25/22 12/14/22 Unknown History docusate sodium 100 mg capsule 100 mg PO BID 10/01/22 12/14/22 Unknown History (Stool Softener) hydrocodone 5 mg-acetaminophen 325 1 tab PO BID PRN Pain 10/01/22 12/14/22 Unknown History mg tablet budesonide 0.5 mg/2 mL suspension 0.5 mg (2 mL) inhalation QPM #60 mL 10/13/22 12/14/22 Unknown Rx for nebulization ipratropium 0.5 mg-albuterol 3 mg 3 ml inhalation Q6H PRN Shortness 10/13/22 12/14/22 Unknown Rx (2.5 mg base)/3 mL nebulization Of Breath #180 mL soln escitalopram oxalate 10 mg tablet 10 mg PO DAILY #60 tabs 10/20/22 12/14/22 Unknown Rx (Lexapro) ropinirole 1 mg tablet 1 mg PO DAILY #90 tabs 10/20/22 12/14/22 Unknown Rx Diabetic shoes #1 ea 10/27/22 12/14/22 Unknown Rx fluticasone propionate 50 2 spray intranasal DAILY #16 grams 11/23/22 12/14/22 Unknown Rx mcg/actuation nasal spray,suspension (Flonase Allergy Relief) albuterol sulfate 90 mcg/actuation 1 inh inhalation QID PRN shortness 12/01/22 12/14/22 Unknown Rx aerosol inhaler (Ventolin HFA) of breath or wheezing #8.5 grams amiodarone 100 mg tablet 100 mg PO DAILY #30 tabs 12/10/22 12/14/22 Unknown Rx lisinopril 40 mg tablet 40 mg PO DAILY #90 tabs 12/10/22 12/14/22 Unknown Rx doxycycline hyclate 100 mg tablet 100 mg PO DAILY 12/14/22 12/14/22 Unknown History Allergies Allergy/AdvReac Type Severity Reaction Status Date / Time latex Allergy Mild Blisters Verified 12/10/22 09:10 petrolatum,white Allergy Mild Blisters Verified 12/10/22 09:10 [From A and D Barrier] amlodipine Allergy Unknown Verified 12/10/22 09:10 Current Medications Generic Name Dose Route Start Last Admin Trade Name Freq PRN Reason Stop Dose Admin Albuterol/Ipratropium 3 ml 12/14/22 08:00 12/16/22 11:40 Ipratropium-Albuterol 3 Ml Neb INHALATION Not Given Q4H.RESPIRATORY KENNEDY Amiodarone HCl 100 mg 12/14/22 09:00 12/16/22 08:26 Amiodarone 200 Mg Tablet PO 100 mg DAILY KENNEDY Administration Aspirin 81 mg 12/14/22 09:00 12/16/22 08:26 Aspirin 81 Mg Chew Tablet PO 81 mg DAILY KENNEDY Administration Atorvastatin Calcium 40 mg 12/14/22 21:00 12/15/22 20:48 Atorvastatin 40 Mg Tablet PO 40 mg BEDTIME KENNEDY Administration Budesonide 0.5 mg 12/14/22 08:00 12/16/22 07:20 Budesonide 0.5 Mg/2 Ml Neb INHALATION 0.5 mg BID.RESPIRATORY KENNEDY Administration Bumetanide 1 mg 12/14/22 09:00 12/16/22 08:26 Bumetanide 1 Mg Tablet PO 1 mg BID KENNEDY Administration Cyanocobalamin 1,000 mcg 12/14/22 09:00 12/16/22 08:25 Cyanocobalamin 1,000 Mcg Tablet PO 1,000 mcg DAILY KENNEDY Administration Dexamethasone 6 mg 12/14/22 06:30 12/16/22 05:56 Dexamethasone 10 Mg/Ml Inj IVP 6 mg Q24H KENNEDY Administration Doxycycline Monohydrate 100 mg 12/14/22 18:00 12/16/22 08:26 Doxycycline 100 Mg Tablet PO 100 mg BID KENNEDY Administration Protocol Escitalopram Oxalate 10 mg 12/14/22 09:00 12/16/22 08:26 Escitalopram 10 Mg Tablet PO 10 mg DAILY KENNEDY Administration Heparin Sodium (Porcine) 10,000 unit 12/14/22 07:30 12/14/22 09:58 Heparin, Porcine 1,000 Unit/Ml Inj 10 Ml INTRACATH 10,000 unit PRN PRN Administration DIALYSIS USE ONLY Protocol Heparin Sodium (Porcine) 1,000 unit 12/14/22 07:30 12/14/22 09:57 Heparin, Porcine 1,000 Unit/Ml Inj 10 Ml IV 1,000 unit PRN PRN Administration DIALYSIS USE ONLY Protocol Hydralazine HCl 50 mg 12/14/22 09:00 12/16/22 08:26 Hydralazine 50 Mg Tablet PO 50 mg TID KENNEDY Administration Ceftriaxone Sodium 1,000 mg/ 50 mls @ 100 mls/hr 12/14/22 09:00 12/16/22 08:31 Sodium Chloride IV 0 mls/hr Q24H KENNEDY Infusion Protocol Metoprolol Succinate 50 mg 12/14/22 09:00 12/16/22 08:33 Metoprolol Succinate Er (24 Hr) 50 Mg Tablet PO Not Given BID KENNEDY Multivitamins 1 each 12/14/22 21:00 12/15/22 20:48 A-Ngepnxf-Qhvvjaj C Tablet PO 1 each BEDTIME KENNEDY Administration Nicotine 1 patch 12/15/22 09:00 12/16/22 08:27 Nicotine 14 Mg Patch TRANSDERMA 1 patch DAILY KENNEDY Administration Pantoprazole Sodium 40 mg 12/14/22 08:00 12/16/22 08:27 Pantoprazole 40 Mg Sdv IVP 40 mg Q12H KENNEDY Administration Ropinirole HCl 1 mg 12/14/22 09:00 12/16/22 08:26 Ropinirole 1 Mg Tablet PO 1 mg DAILY KENNEDY Administration Sodium Chloride 50 ml 12/15/22 15:11 12/15/22 15:49 Sodium Chloride 0.9% 100 Ml Bag IV 12/16/22 15:11 50 ml PRN PRN Administration Blood transfusion prime and flush Sucralfate 1 gm 12/14/22 08:00 12/16/22 08:25 Sucralfate 1 Gm Tablet PO 1 gm Q12H KENNEDY Administration PFS Anesthesia Medical History Atrial flutter Chronic kidney disease COPD (chronic obstructive pulmonary disease) Diabetes DJD (degenerative joint disease) 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 ESRD on 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 History of renal dialysis Hyperlipidemia Hypertension Intermittent palpitations XI (obstructive sleep apnea) PVD (peripheral vascular disease) Severe tobacco use disorder Surgical History H/O aortic valve replacement H/O aortic valve replacement with tissue graft H/O foot surgery Family History Grandmother Diabetes Grandfather Diabetes Denies family history of CAD (coronary artery disease) Clotting disorder Dementia Chronic kidney disease (CKD) Suicide Anesthesia complication Bleeding disorder Lung disease Cancer Stroke Social History Smoking and tobacco status: current every day smoker cigarettes Packs smoked per day: 1 Years cigarettes smoked: 46 Alcohol intake: never Substance/Drug Use: never Lives independently: Yes (with girlfriend) Household members: significant other Marital status: Single service: No 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al status: disabled 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 Pets and animals: Yes Special araceli needs: No Agree to transfusion: Yes Data Anesthesia 12/16/22 04:20 12/16/22 04:20 Short CBC 12/14/22 12/14/22 12/15/22 Range/Units 18:33 23:11 00:57 WBC 12.29 H (3.29-11.43) 10^3/uL Hgb 8.10 L 7.10 L 7.20 L (11.27-16.99) g/dL Hct 24.8 L 21.4 L 22.2 L (37-53) % MCV 102.3 H (82-101) fl Plt Count 159 (157-399) 10^3/cmm Neut % (Auto) 79.4 % Neut # (Auto) 9.77 H (1.8-7.7) 10^3/uL 12/15/22 12/16/22 Range/Units 06:24 04:20 WBC 11.98 H 11.94 H (3.29-11.43) 10^3/uL Hgb 7.10 L 7.60 L (11.27-16.99) g/dL Hct 21.7 L 23.4 L (37-53) % MCV 101.9 H 100.0 (82-101) fl Plt Count 164 172 (157-399) 10^3/cmm Neut % (Auto) 77.0 76.7 % Neut # (Auto) 9.23 H 9.15 H (1.8-7.7) 10^3/uL BMP 12/14/22 12/15/22 12/15/22 18:33 00:57 06:24 Sodium 133 L 131 L 132 L Potassium 4.9 4.9 4.5 Chloride 91 L 91 L 91 L Carbon Dioxide 28 26 27 BUN 39 H 52 H 60 H Creatinine 3.9 H 4.1 H 4.8 H Glucose 174 H 186 H 146 H Calcium 8.8 8.5 8.4 L 12/16/22 04:20 Sodium 134 L Potassium 4.8 Chloride 93 L Carbon Dioxide 24 BUN 82 H* Creatinine 6.3 H* Glucose 195 H Calcium 8.7 Liver Function 12/14/22 12/15/22 12/15/22 Range/Units 18:33 00:57 06:24 Total Bilirubin 1.2 0.7 0.6 (0.15-1.2) mg/dL AST 213 H 153 H 128 H (0-40) U/L ALT 182 H 162 H 153 H (0-41) U/L Alkaline Phosphatase 134 H 125 113 (40-130) U/L Albumin 3.8 3.4 L 3.3 L (3.5-5.2) g/dL 12/16/22 Range/Units 04:20 Total Bilirubin 0.4 (0.15-1.2) mg/dL AST 55 H (0-40) U/L ALT 115 H (0-41) U/L Alkaline Phosphatase 113 (40-130) U/L Albumin 3.4 L (3.5-5.2) g/dL Blood Bank 12/14/22 12:12 Blood Type O Positive Rho(D) Type Positive Antibody Screen Negative Coags 12/14/22 12/15/22 12/15/22 18:33 00:57 07:37 APTT 67.7 H D 72.9 H 91.8 H 12/15/22 14:32 APTT 54.9 H Microbiology 12/15/22 21:40 Occult Blood (FIT) - Final Stool 12/15/22 00:30 Gram Stain - Final Sputum - Expectorated Sputum 12/14/22 04:45 Urine Culture - Preliminary Urine,Clean Catch Streptococcus species 12/14/22 07:54 Blood Culture - Preliminary Blood NEGATIVE TO DATE 12/14/22 07:50 Blood Culture - Preliminary Blood NEGATIVE TO DATE Cardiac Studies: Echocardiogram 12/14/22
--- NOTE | 2022-12-16 12:55 | SUR.PREOP ---
pt transported from dialysis to GI lab. on arrival to GI, no ALEXANDER scope available for procedure. Pt will be rescheduled for tomorrow to have ALEXANDER. Pt transported to [facility]. Discussed with patient, issues with scope.
[2022-12-16 14:08] LABS: Glucose Point of Care 206 mg/dL (70-110)
--- NOTE | 2022-12-16 14:42 | P.PN_ITS ---
Subjective Subjective: Tmax 99 Fahrenheit. Afebrile. Seen on dialysis today. Pending ALEXANDER. No new complaints. Medications: Reviewed: Yes Vitals/I&O/Wt Last Vital Signs Temp 99.0 F 12/16/22 13:27 Pulse 96 12/16/22 13:27 Resp 18 12/16/22 13:27 BP 148/73 12/16/22 13:27 Pulse Ox 95 12/16/22 12:00 O2 Del Method Room Air 12/16/22 12:00 O2 Flow Rate 2 12/15/22 01:00 12/15/22 12/16/22 12/16/22 22:59 06:59 14:59 Intake Total 990.706 / 1183.581 650 / 650 Output Total 300 / 300 3590 / 3590 Balance 690.706 / 883.581 -2940 / -2940 Weight last 48 hrs Weight 97.1 kg Physical Exam Narrative: General: No acute distress, AO x3 HEENT: PERRLA, pupils bilaterally equal and reactive, pallors not present Chest: Normal vesicular breath sounds, no added sounds, equal good air entry bilaterally CVS: S1-S2 regular, no murmurs, no tachycardia, no gallops, no rubs Abdomen: Soft, nontender, no organomegaly, bowel sounds present Neuro: No focal deficits, no facial deformity, AO x3, power 5/5 in all limbs Data 12/16/22 04:20 12/16/22 04:20 Micro: Microbiology 12/14/22 04:45 Urine Culture - Final Urine,Clean Catch Enterococcus faecalis 12/15/22 21:40 Occult Blood (FIT) - Final Stool 12/15/22 00:30 Gram Stain - Final Sputum - Expectorated Sputum A&P Assessment and plan (1) Acute hyperkalemia: resolved post HD (2) Moderate to severe mitral regurgitation: (3) XI (obstructive sleep apnea): (4) COPD (chronic obstructive pulmonary disease): (5) Tobacco abuse counseling: (6) ESRD on hemodialysis: (7) Anemia: (8) ESRD (end stage renal disease): (9) Acute exacerbation of congestive heart failure: (10) Hyperlipidemia: Qualifiers: Hyperlipidemia type: mixed hyperlipidemia Qualified Code(s): E78.2 - Mixed hyperlipidemia (11) Hypertension: Qualifiers: Hypertension type: essential hypertension Qualified Code(s): I10 - Essential (primary) hypertension (12) Diabetes: Qualifiers: Diabetes mellitus type: type 2 Diabetes mellitus fci insulin use: with fci use Diabetes mellitus complication status: with diabetic arthropathy Diabetes mellitus complication detail: with other arthropathy Qualified Code(s): E11.618 - Type 2 diabetes mellitus with other diabetic arthropathy; Z79.4 - [facility] (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 Multifactorial ?COPD exacerbation, ? Systolic and diastolic CHF exacerbation ? Fluid overload - s/p HD on 12/14 with improved respiratory status, receiving hemodialysis again today. Atrial fibrillation detected by EMS, also possible wide-complex tachycardia, currently atrial fibrillation with slow ventricular response ? Continue home amiodarone ? Continue home metoprolol -He is not on any anticoagulation due to history of hematochezia and also longs tanding anemia. ? Patient has moderate to severe mitral valve regurg, crdiology consulted to assess for ALEXANDER Moderate to severe mitral valve regurg ? Planned ALEXANDER today COPD exacerbation ? Decadron 6 mg IV push every 24 hours, changed to prednisone p.o. today. ? Smoking cessation counseling ? Continue Rocephin and doxycycline ? DuoNeb, budesonide Systolic and diastolic CHF exacerbation, with fluid overload ? Nephrology consulted for dialysis, s/p HD on 12/14 and again today ? Continue p.o. Bumex 1 mg p.o. twice daily Chest pain, with NSTEMI ? Serial EKGs, serial troponins with elevated 6 hr delta - Cardioloy consulted with + delta and ongoing chest pain ; likely to be to be type 2 CA ? discontinue heparin drip - chest pain has resolved ? Continue aspirin, statin, beta-reggie ? Monitor for chest pain Hyperkalemia ?resolved Anemia, with complaints of hematochezia as outpatient ? As outpatient there is plans on a colonoscopy ? No complaints of hematochezia currently ? 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 Curerently blood cx negative to date Transfer to [facility] Attestations Medical Necessity Statement*: Planned ALEXANDER today Coding Level of Care Code Acute Code for Chg Fwd Moderate MDM includes number and complexity of problems actively addressed during encounter, amount and/or complexity of data reviewed/ordered and described risk of complication, morbidity or mortality of management as documented Diagnoses Acute hyperkalemia E87.5 Moderate to severe mitral regurgitation I34.0 XI (obstructive sleep apnea) G47.33 COPD (chronic obstructive pulmonary disease) J44.9 Tobacco abuse counseling Z71.6 ESRD on hemodialysis N18.6; Z99.2 Anemia D64.9 ESRD (end stage renal disease) N18.6 Acute exacerbation of congestive heart failure I50.9 Hyperlipidemia E78.2 Hyperlipidemia type: mixed hyperlipidemia Hypertension I10 Hypertension type: essential hypertension Diabetes E11.618; Z79.4 Diabetes mellitus type: type 2 Diabetes mellitus termite technician insulin use: with termite technician use Diabetes mellitus complication status: with diabetic arthropathy Diabetes mellitus complication detail: with other arthropathy Atrial fibrillation I48.91 COPD exacerbation J44.1 Chest pain R07.9 Acute hypoxic respiratory failure J96.01 NSTEMI (non-ST elevated myocardial infarction) I21.4 Elevated lactic acid level R79.89
[2022-12-16 16:09] LABS: Glucose Point of Care 392 mg/dL (70-110)
--- NOTE | 2022-12-16 17:02 | P.PN_ITS ---
Subjective Subjective: The patient is feeling okay. He is getting the hemodialysis today. He was scheduled for a ALEXANDER. Apparently the test had to be canceled because the probe was not available Medications: Medication Review Details: Current Medications Acetaminophen (Acetaminophen 325 Mg Tablet) 650 mg PO Q6H PRN PRN Reason: Mild/Mod Pain Or Temp >/= 101 Albuterol/Ipratropium (Ipratropium-Albuterol 3 Ml Neb) 3 ml INHALATION Q4H. RESPIRATORY KENNEDY Last Admin: 12/16/22 15:26 Dose: 3 ml Amiodarone HCl (Amiodarone 200 Mg Tablet) 100 mg PO DAILY KENNEDY Last Admin: 12/16/22 08:26 Dose: 100 mg Aspirin (Aspirin 81 Mg Chew Tablet) 81 mg PO DAILY KENNEDY Last Admin: 12/16/22 08:26 Dose: 81 mg Atorvastatin Calcium (Atorvastatin 40 Mg Tablet) 40 mg PO BEDTIME KENNEDY Last Admin: 12/15/22 20:48 Dose: 40 mg Budesonide (Budesonide 0.5 Mg/2 Ml Neb) 0.5 mg INHALATION BID.RESPIRATORY KENNEDY Last Admin: 12/16/22 07:20 Dose: 0.5 mg Bumetanide (Bumetanide 1 Mg Tablet) 1 mg PO BID KENNEDY Last Admin: 12/16/22 08:26 Dose: 1 mg Cyanocobalamin (Cyanocobalamin 1,000 Mcg Tablet) 1,000 mcg PO DAILY KENNEDY Last Admin: 12/16/22 08:25 Dose: 1,000 mcg Dextrose (Dextrose 50% Syringe 50 Ml) 50 ml IVP PRN PRN; Protocol PRN Reason: hypoglycemia protocol Dextrose (Dextrose 50% Syringe 50 Ml) 25 ml IVP ONCE PRN; Protocol PRN Reason: hypoglycemia protocol Doxycycline Monohydrate (Doxycycline 100 Mg Tablet) 100 mg PO BID KENNEDY; Protocol Last Admin: 12/16/22 08:26 Dose: 100 mg Escitalopram Oxalate (Escitalopram 10 Mg Tablet) 10 mg PO DAILY KENNEDY Last Admin: 12/16/22 08:26 Dose: 10 mg Glucagon (Glucagon 1 Mg/Ml Inj 1 Ml) 1 mg IM ONCE PRN; Protocol PRN Reason: Adult Acute Hypoglycemia Prot. Heparin Sodium (Porcine) (Heparin, Porcine 1,000 Unit/Ml Inj 10 Ml) 10,000 unit INTRACATH PRN PRN; Protocol PRN Reason: DIALYSIS USE ONLY Last Admin: 12/14/22 09:58 Dose: 10,000 unit Heparin Sodium (Porcine) (Heparin, Porcine 1,000 Unit/Ml Inj 10 Ml) 1,000 unit IV PRN PRN; Protocol PRN Reason: DIALYSIS USE ONLY Last Admin: 12/14/22 09:57 Dose: 1,000 unit Hydralazine HCl (Hydralazine 50 Mg Tablet) 50 mg PO TID COUNTS INCLUDE 234 BEDS AT THE [facility] Last Admin: 12/16/22 15:55 Dose: 50 mg Hydralazine HCl (Hydralazine 20 Mg/Ml Inj 1 Ml) 10 mg IVP Q6H PRN PRN Reason: HYPERTENSION Ceftriaxone Sodium 1,000 mg/ (Sodium Chloride) 50 mls @ 100 mls/hr IV Q24H COUNTS INCLUDE 234 BEDS AT THE [facility]; Protocol Last Infusion: 12/16/22 08:31 Dose: 0 mls/hr Dextrose (D5w) 500 mls @ 100 mls/hr IV ONCE PRN; Protocol PRN Reason: Adult Acute Hypoglycemia Prot Albumin Human (Albumin) 12.5 gm in 50 mls @ 60 mls/hr IV PRN PRN PRN Reason: Hypotension and/or symptomatic Sodium Chloride (Sodium Chloride 0.9%) 1,000 mls @ 0 mls/hr IV .Q0M PRN PRN Reason: hypotension or symptomatic Albumin Human (Albumin) 12.5 gm in 50 mls @ 60 mls/hr IV PRN PRN PRN Reason: Hypotension and/or symptomatic Sodium Chloride (Sodium Chloride 0.9%) 1,000 mls @ 0 mls/hr IV .Q0M PRN PRN Reason: hypotension or symptomatic Sodium Chloride (Sodium Chloride 0.9%) 1,000 mls @ 30 mls/hr IV .Q24H COUNTS INCLUDE 234 BEDS AT THE [facility] Metoprolol Succinate (Metoprolol Succinate Er (24 Hr) 50 Mg Tablet) 50 mg PO BID COUNTS INCLUDE 234 BEDS AT THE [facility] Last Admin: 12/16/22 08:33 Dose: Not Given Morphine Sulfate (Morphine 4 Mg/Ml Sdv 1 Ml) 1 mg IVP Q4H PRN PRN Reason: SEVERE PAIN Multivitamins (Y-Qaudktz-Wnmbjls C Tablet) 1 each PO BEDTIME COUNTS INCLUDE 234 BEDS AT THE [facility] Last Admin: 12/15/22 20:48 Dose: 1 each Nicotine (Nicotine 14 Mg Patch) 1 patch TRANSDERMA DAILY COUNTS INCLUDE 234 BEDS AT THE [facility] Last Admin: 12/16/22 08:27 Dose: 1 patch Ondansetron HCl (Ondansetron 2 Mg/Ml Sdv 2 Ml) 4 mg IVP Q8H PRN PRN Reason: vomiting, or N/V if npo Pantoprazole Sodium (Pantoprazole 40 Mg Sdv) 40 mg IVP Q12H COUNTS INCLUDE 234 BEDS AT THE [facility] Last Admin: 12/16/22 08:27 Dose: 40 mg Prednisone (Prednisone 20 Mg Tablet) 40 mg PO DAILY COUNTS INCLUDE 234 BEDS AT THE [facility] Ropinirole HCl (Ropinirole 1 Mg Tablet) 1 mg PO DAILY COUNTS INCLUDE 234 BEDS AT THE [facility] Last Admin: 12/16/22 08:26 Dose: 1 mg Sucralfate (Sucralfate 1 Gm Tablet) 1 gm PO Q12H COUNTS INCLUDE 234 BEDS AT THE [facility] Last Admin: 12/16/22 08:25 Dose: 1 gm Vitals/I&O/Wt Last Vital Signs Temp 99.0 F 12/16/22 13:27 Pulse 97 12/16/22 16:39 Resp 24 H 12/16/22 15:55 BP 134/56 12/16/22 15:55 Pulse Ox 94 12/16/22 15:55 O2 Del Method Room Air 12/16/22 15:55 O2 Flow Rate 2 12/15/22 01:00 12/16/22 12/16/22 12/16/22 06:59 14:59 22:59 Intake Total 650 / 650 Output Total 3590 / 3590 Balance -2940 / -2940 Weight last 48 hrs Weight 214 lb 1.102 oz Physical Exam Narrative: GENERAL: The patient is alert and oriented times three. Not in any acute distress. HEENT: Moderate pallor, icterus or lymphadenopathy.Oral cavity: There are no m ucous membrane lesions. NECK: Trachea appears to be central. No masses noted. No JVD or thyromegaly appreciated. RESPIRATORY: Chest is symmetrical. No intercostals muscle retraction or any accessory muscle activation. There is no chest wall tenderness. Breath sounds are heard bilaterally. Few scattered crackles at the bases.. No evidence of any consolidation. BREASTS: Deferred. HEART: The heart sounds are normal. No S3 or S4. Pansystolic murmur at the mitral area. No diastolic murmurs. No pericardial rub ABDOMEN: No vessel pulsations or distention. No tenderness. No organomegaly appreciated. Bowel sounds are normally heard. : Deferred. RECTAL: Deferred. LYMPHATIC: No lymphadenopathy noted in the neck. EXTREMITIES: Features of chronic venous stasis. MUSCULOSKELETAL: No acute joint deformities or swelling SKIN: There are no significant rashes or ecchymosis NEUROPSYCHIATRIC: The patient is alert and oriented x3. Appears to be in a good mood. No tremors or rigidity noted. Data 12/16/22 04:20 12/16/22 04:20 Other Labs: Laboratory Last Values WBC 11.94 10^3/uL (3.29-11.43) H 12/16/22 04:20 RBC 2.34 10^6/uL (3.85-5.65) L 12/16/22 04:20 Hgb 7.60 g/dL (11.27-16.99) L 12/16/22 04:20 Hct 23.4 % (37-53) L 12/16/22 04:20 MCV 100.0 fl (82-101) 12/16/22 04:20 MCH 32.5 pg (27-33) 12/16/22 04:20 MCHC 32.5 g/dL (30-55) 12/16/22 04:20 RDW 20.8 % (12.1-15.1) H 12/16/22 04:20 Plt Count 172 10^3/cmm (157-399) 12/16/22 04:20 MPV 10.2 fL (7.4-10.4) 12/16/22 04:20 Neut % (Auto) 76.7 % 12/16/22 04:20 Lymph % (Auto) 13.1 % 12/16/22 04:20 [place] % (Auto) 8.5 % 12/16/22 04:20 Eos % (Auto) 0.1 % 12/16/22 04:20 Baso % (Auto) 0.2 % 12/16/22 04:20 Neut # (Auto) 9.15 10^3/uL (1.8-7.7) H 12/16/22 04:20 Lymph # (Auto) 1.6 10^3/uL (0.8-4.8) 12/16/22 04:20 [place] # (Auto) 1.0 10^3/uL (0.2-0.9) H 12/16/22 04:20 Eos # (Auto) 0.0 10^3/uL (0.0-0.8) 12/16/22 04:20 Baso # (Auto) 0.0 10^3/uL (0.0-0.1) 12/16/22 04:20 Nucleated RBC % (auto) 0.6 % 12/16/22 04:20 Nucleated RBCs # 0.1 /100WBC 12/16/22 04:20 PT 14.50 SECONDS (12.1-14.9) 12/14/22 03:35 INR 1.09 (0.8-1.2) 12/14/22 03:35 APTT 54.9 SECONDS (23.9-36.7) H 12/15/22 14:32 D-Dimer 1.18 ug/mLFEU (0-0.59) H 12/14/22 03:35 Specimen Type Arterial 12/14/22 05:51 Sample Site Radial, left 12/14/22 05:51 ABG pH 7.42 (7.35-7.45) 12/14/22 05:51 ABG pCO2 41.6 mmHg (35-45) 12/14/22 05:51 ABG pO2 61.5 mmHg (80.0-100.0) L 12/14/22 05:51 ABG HCO3 27.1 mmol/L (22-26) H 12/14/22 05:51 ABG Base Excess 2.4 mmol/L (-2.0-2.0) H 12/14/22 05:51 Kash Test Pos 12/14/22 05:51 Hematocrit 22.0 % (42-52) L 12/14/22 05:51 O2 Delivery Device Room air 12/14/22 05:51 Hotel Associate ID [email or web address] 12/14/22 05:51 Sodium 134 mmol/L (136-145) L 12/16/22 04:20 Potassium 4.8 mmol/L (3.5-5.1) 12/16/22 04:20 Chloride 93 mmol/L (98-107) L 12/16/22 04:20 Carbon Dioxide 24 mmol/L (22-29) 12/16/22 04:20 Anion Gap 21.8 (5-19) H 12/16/22 04:20 BUN 82 mg/dL (8-23) H* 12/16/22 04:20 Creatinine 6.3 mg/dL (0.7-1.2) H* 12/16/22 04:20 GFR Calculation 9.1 mL/min (90-130) L 12/16/22 04:20 Glucose 195 mg/dL (65-115) H 12/16/22 04:20 POC Glucose 392 mg/dL (70-110) H 12/16/22 15:58 Estimat Average Glucose 91 12/14/22 03:35 Hemoglobin A1c 4.8 % (4.0-6.0) 12/14/22 03:35 Calculated Osmolality 308 mOsm/kg (285-295) H 12/16/22 04:20 Lactic Acid 2.8 mmol/L (0.5-2.2) H 12/14/22 04:14 Lactic Acid (Sepsis) 1.9 mmol/L (0.5-2.2) 12/14/22 07:50 Calcium 8.7 mg/dL (8.5-10.5) 12/16/22 04:20 Phosphorus 7.5 mg/dL (2.5-4.5) H 12/16/22 04:20 Magnesium 2.2 mg/dL (1.7-2.3) 12/16/22 04:20 Iron Cancelled 12/14/22 05:33 TIBC 197 mcg/dl 12/14/22 04:26 % Saturation 60.4 % (20-50) H 12/14/22 04:26 Unsat Iron Binding 78 ug/dL (112-347) L 12/14/22 04:26 Ferritin 52124 ng/mL (30-400) H 12/14/22 04:26 Total Bilirubin 0.4 mg/dL (0.15-1.2) 12/16/22 04:20 AST 55 U/L (0-40) H 12/16/22 04:20 ALT 115 U/L (0-41) H 12/16/22 04:20 Alkaline Phosphatase 113 U/L (40-130) 12/16/22 04:20 Troponin T Baseline 208 ng/L (0-15) H* 12/14/22 03:35 Troponin T 120 Minute 212.5 ng/L (0-15) H 12/14/22 05:33 Delta Troponin T 4.5 ABS# (0-10) 12/14/22 05:33 Troponin T Hi Sens 6Hr 238.2 ng/L (0-15) H 12/14/22 09:28 Troponin T Hi Sens 6Hr Delta 30.2 ng/L (0-12) H* 12/14/22 09:28 C-Reactive Protein 18.4 mg/L (0.0-4.9) H 12/14/22 04:26 NT-Pro-B Natriuret Pep 94465 pg/mL (0-125) H 12/14/22 04:26 Total Protein 5.7 g/dL (6.6-8.7) L 12/16/22 04:20 Albumin 3.4 g/dL (3.5-5.2) L 12/16/22 04:20 Globulin 2.3 g/dL (1.3-4.6) 12/16/22 04:20 Procalcitonin 0.92 ng/mL (0-0.5) H 12/14/22 04:26 TSH 3.11 uIU/mL (0.27-4.20) 12/14/22 04:26 Urine Color Yellow (Yellow) 12/14/22 04:45 Urine Appearance Hazy (CLEAR) A 12/14/22 04:45 Urine pH 9 (5-7) H 12/14/22 04:45 Ur Specific Ione 1.010 (1.005-1.030) 12/14/22 04:45 Urine Protein 3+ (Negative) H 12/14/22 04:45 Urine Glucose (UA) 2+ (Normal) H 12/14/22 04:45 Urine Ketones Negative (Negative) 12/14/22 04:45 Urine Blood 2+ (Negative) H 12/14/22 04:45 Urine Nitrate Negative (Negative) 12/14/22 04:45 Urine Bilirubin Neg (Negative) 12/14/22 04:45 Prot Sulfosalicylic Acd Negative (Negative) 12/14/22 04:45 Urine Urobilinogen Neg mg/dL (Negative) 12/14/22 04:45 Ur Leukocyte Esterase 1+ (Negative) H 12/14/22 04:45 Urine RBC 0-4 /hpf (0-2) H 12/14/22 04:45 Urine WBC 25-40 /hpf (0-5) H 12/14/22 04:45 Ur Squamous Epith Cells 5-10 /hpf (0-5) H 12/14/22 04:45 Amorphous Sediment Trace /hpf 12/14/22 04:45 Urine Bacteria Trace /hpf (NONE) 12/14/22 04:45 Urine Opiates Screen Positive ng/mL (Negative) H 12/14/22 04:45 Ur Barbiturates Screen Negative ng/mL (Negative) 12/14/22 04:45 Ur Phencyclidine Scrn Negative ng/mL (Negative) 12/14/22 04:45 Ur Amphetamines Screen Negative ng/mL (Negative) 12/14/22 04:45 U Benzodiazepines Scrn Negative ng/mL (Negative) 12/14/22 04:45 Urine Cocaine Screen Negative ng/mL (Negative) 12/14/22 04:45 U Marijuana (THC) Screen Negative ng/mL (Negative) 12/14/22 04:45 Ethyl Alcohol < 10 mg/dL (0-10) 12/14/22 04:26 Hepatitis A IgM Ab Non-reactive (Nonreactive) 12/14/22 04:26 Hep Bs Antigen Non-reactive (Nonreactive) 12/14/22 04:26 Hep Bs Antibody 31.7 (11.5-1000) 12/14/22 04:26 Hep B Core IgM Ab Non-reactive (Nonreactive) 12/14/22 04:26 Hepatitis C Antibody Non-reactive (Nonreactive) 12/14/22 04:26 HIV 1&2 Ab & HIV 1 Ag Non-reactive (Non-Reactiv) 12/14/22 04:26 HIV 1&2 Antibody Non-reactive (Non-Reactiv) 12/14/22 04:26 SARS-CoV-2 Ag (Rapid) negative (Negative) 12/14/22 04:53 Blood Type O Positive 12/14/22 12:12 Rho(D) Type Positive 12/14/22 12:12 Antibody Screen Negative 12/14/22 12:12 Crossmatch See Detail 12/14/22 12:12 Micro: Microbiology 12/15/22 00:30 Gram Stain - Final Sputum - Expectorated Sputum Sputum Culture - Preliminary 12/14/22 04:45 Urine Culture - Final Urine,Clean Catch Enterococcus faecalis 12/15/22 21:40 Occult Blood (FIT) - Final Stool A&P Assessment and plan (1) Elevated troponin: Most likely is related to type II myocardial infarction. He apparently had no significant obstructive coronary disease by previous angiogram. Currently he seems to be stable. His chest symptoms are more or less constant with some waxing and waning. He has a musculoskeletal component for the chest pain. (2) Moderate to severe mitral regurgitation: Clinically it appears to be severe. A ALEXANDER would be appropriate to further evaluate the mitral regurgitation decide on further management. (3) XI (obstructive sleep apnea): May continue on the current treatment. (4) H/O aortic valve replacement with tissue graft: The valve function appears to be appropriate. 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 (6) ESRD (end stage renal disease): Patient is on hemodialysis 3 times a week. This may be continued. (7) Anemia: Had total of 2 units of blood transfusions in the hospital admission. May continue on the current measures. Plan Scheduled for ALEXANDER tomorrow around noon. Based on the results, further recommendations will be made. 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
[2022-12-16] MEDS: metoprolol succinate ER (24 HR) 50 mg Tablet PO (17:59)
[2022-12-16] MEDS: polyethylene glycol 3350 Pkt 17 gm PO (18:32)
[2022-12-16 21:03] LABS: Glucose Point of Care 272 mg/dL (70-110)
[2022-12-16] MEDS: atorvastatin 40 mg Tablet PO (21:04)
[2022-12-16] MEDS: b-complex-vitamin c Tablet 1 EACH PO (21:04)
[2022-12-17] VITALS (27 sets, daily range): BP systolic 135–182; BP diastolic 68–95; PULSE 69–97; RESP 16–23; TEMP 36.3–37.1; O2SAT 92–100
[2022-12-17] MEDS: ipratropium-albuterol 3 mL Neb INHALATION ×6 (00:08→21:02)
[2022-12-17] MEDS: ropinirole 1 mg Tablet PO ×2 (01:59→20:34)
[2022-12-17 04:56] LABS: Basophils % 0.2 %; Eosinophils % 0.1 %; Lymphocytes # 1.7 10^3/uL (0.8-4.8); Lymphocytes % 14.9 %; Mean Corpuscular HGB Conc 30.8 g/dL (30-55); Mean Corpuscular Hemoglobin 32.9 pg (27-33); Mean Corpuscular Volume 106.8 fl (82-101); Mean Platelet Volume 9.9 fL (7.4-10.4); Monocytes # 0.9 10^3/uL (0.2-0.9); Monocytes % 7.8 %; Neutrophils # 8.73 10^3/uL (1.8-7.7); Nucleated Red Blood Cells # 0.2 /100WBC; Nucleated Red Blood Cells % 1.3 %; Platelet Count 151 10^3/cmm (157-399); Red Blood Count 2.34 10^6/uL (3.85-5.65); Red Cell Distribution Width 21.1 % (12.1-15.1); White Blood Count 11.63 10^3/uL (3.29-11.43)
[2022-12-17 05:23] LABS: Alanine Aminotransferase 88 U/L (0-41); Albumin Level 3.7 g/dL (3.5-5.2); Alkaline Phosphatase 108 U/L (40-130); Anion Gap 20.3 (5-19); Aspartate Amino Transferase 38 U/L (0-40); Blood Urea Nitrogen 47 mg/dL (8-23); Calcium 8.6 mg/dL (8.5-10.5); Carbon Dioxide 23 mmol/L (22-29); Chloride 98 mmol/L (98-107); Globulin 1.8 g/dL (1.3-4.6); Glomerular Filtration Rate 14.2 mL/min (90-130); Glucose 220 mg/dL (65-115); Osmolality Calculated 303 mOsm/kg (285-295); Phosphorus 4.6 mg/dL (2.5-4.5); Potassium 4.3 mmol/L (3.5-5.1); Sodium 137 mmol/L (136-145); Total Bilirubin 0.4 mg/dL (0.15-1.2); Total Protein 5.5 g/dL (6.6-8.7)
[2022-12-17 06:25] LABS: Glucose Point of Care 238 mg/dL (70-110)
[2022-12-17] MEDS: budesonide 0.5 mg/2 mL Neb INHALATION ×2 (08:16→21:02)
--- NOTE | 2022-12-17 08:56 | PC.NURSE ---
Spoke with Dr. Stafford to check about giving PO medications since the pt is NPO for a ALEXANDER. She stated that it would be fine to give him his po medications this morning.
--- NOTE | 2022-12-17 09:02 | PC.SOCIAL ---
Pg 2 IMM Explained to pt Pg 2 IMM. No questions voiced. Provided pt a copy. Initialed, dated, & timed a copy & placed in chart.
--- NOTE | 2022-12-17 09:11 | P.PN_ITS ---
Subjective Subjective: NO NEW COMPLAINTS ALEXANDER today Medications: Reviewed: Yes Vitals/I&O/Wt Last Vital Signs Temp 98.8 F 12/17/22 07:37 Pulse 91 12/17/22 08:00 Resp 17 12/17/22 08:00 BP 135/79 12/17/22 07:37 Pulse Ox 98 12/17/22 08:00 O2 Del Method Room Air 12/17/22 08:00 O2 Flow Rate 2 12/15/22 01:00 12/16/22 12/17/22 12/17/22 22:59 06:59 14:59 Intake Total 240 / 890 Balance 240 / -2700 Weight last 48 hrs Weight 97.1 kg Physical Exam Narrative: awake , alert wheezing jenae per report No edema Data 12/17/22 04:32 12/17/22 04:32 Micro: Microbiology 12/15/22 00:30 Gram Stain - Final Sputum - Expectorated Sputum Sputum Culture - Preliminary 12/14/22 04:45 Urine Culture - Final Urine,Clean Catch Enterococcus faecalis A&P Assessment and plan (1) ESRD on hemodialysis: Plan 1. End-stage renal disease: On MWF schedule as outpatient, HD tomorrow 2. Hyperkalemia: HD as above and should be on low K diet 3. Anemia:, Complaints of hematochezia, GI work-up as outpatient, ordered [place] 4. History of CHF now with pulmonary edema, HD today and ultrafiltration a ggressively as tolerated 5. Acute on chronic respiratory failure, multifactorial 6. Atrial fibrillation: Management per primary team 7. History of aortic valve replacement with tissue graft for history of endocarditis in the past 8. Moderate to severe MR , plan for ALEXANDER to further evaluate Patient evaluated using audiovisual cart. Time spent 45 minutes Attestations Medical Necessity Statement*: per medicine team Coding Level of Care Code Acute Code for [facility] Fwd Diagnoses ESRD on hemodialysis N18.6; Z99.2
[2022-12-17] MEDS: doxycycline 100 mg Tablet PO ×2 (09:28→17:49)
[2022-12-17] MEDS: aspirin 81 mg Chew Tablet PO (09:28)
[2022-12-17] MEDS: predniSONE 20 mg Tablet 40 MG PO (09:28)
[2022-12-17] MEDS: escitalopram 10 mg Tablet PO (09:28)
[2022-12-17] MEDS: hyDRALAzine 50 mg Tablet PO ×3 (09:29→20:34)
[2022-12-17] MEDS: amiodarone 200 mg Tablet 100 MG PO (09:29)
[2022-12-17] MEDS: bumetanide 1 mg Tablet PO ×2 (09:29→17:49)
[2022-12-17] MEDS: cyanocobalamin 1,000 mcg Tablet 1000 MCG PO ×2 (09:29)
[2022-12-17] MEDS: metoprolol succinate ER (24 HR) 50 mg Tablet PO ×2 (09:29→17:49)
[2022-12-17] MEDS: polyethylene glycol 3350 Pkt 17 gm PO (09:30)
[2022-12-17] MEDS: pantoprazole 40 mg SDV IVP ×2 (09:30→20:33)
[2022-12-17] MEDS: cefTRIAXone 1,000 MG in sodium chloride 0.9% (plus) 50 ML 100 MG IV (09:30)
[2022-12-17] MEDS: nicotine 14 mg Patch 1 PATCH TRANSDERMA (09:31)
[2022-12-17 10:57] LABS: Glucose Point of Care 229 mg/dL (70-110)
--- NOTE | 2022-12-17 11:27 | P.PN_ITS ---
Subjective Subjective: No acute overnight events. Awaiting ALEXANDER. No new complaints. Afebrile and hemodynamically stable Medications: Reviewed: Yes Medication Review Details: Current Medications Acetaminophen (Acetaminophen 325 Mg Tablet) 650 mg PO Q6H PRN PRN Reason: Mild/Mod Pain Or Temp >/= 101 Albuterol/Ipratropium (Ipratropium-Albuterol 3 Ml Neb) 3 ml INHALATION Q4H.RESPIRATORY KENN[facility]Y Last Admin: 12/16/22 15:26 Dose: 3 ml Amiodarone HCl (Amiodarone 200 Mg Tablet) 100 mg PO DAILY [facility] Last Admin: 12/16/22 08:26 Dose: 100 mg Aspirin (Aspirin 81 Mg Chew Tablet) 81 mg PO DAILY [facility] Last Admin: 12/16/22 08:26 Dose: 81 mg Atorvastatin Calcium (Atorvastatin 40 Mg Tablet) 40 mg PO BEDTIME [facility] Last Admin: 12/15/22 20:48 Dose: 40 mg Budesonide (Budesonide 0.5 Mg/2 Ml Neb) 0.5 mg INHALATION BID.RESPIRATORY KENNEDY Last Admin: 12/16/22 07:20 Dose: 0.5 mg Bumetanide (Bumetanide 1 Mg Tablet) 1 mg PO BID [facility] Last Admin: 12/16/22 08:26 Dose: 1 mg Cyanocobalamin (Cyanocobalamin 1,000 Mcg Tablet) 1,000 mcg PO DAILY [facility] Last Admin: 12/16/22 08:25 Dose: 1,000 mcg Dextrose (Dextrose 50% Syringe 50 Ml) 50 ml IVP PRN PRN; Protocol PRN Reason: hypoglycemia protocol Dextrose (Dextrose 50% Syringe 50 Ml) 25 ml IVP ONCE PRN; Protocol PRN Reason: hypoglycemia protocol Doxycycline Monohydrate (Doxycycline 100 Mg Tablet) 100 mg PO BID KENN[facility]; Protocol Last Admin: 12/16/22 08:26 Dose: 100 mg Escitalopram Oxalate (Escitalopram 10 Mg Tablet) 10 mg PO DAILY [facility] Last Admin: 12/16/22 08:26 Dose: 10 mg Glucagon (Glucagon 1 Mg/Ml Inj 1 Ml) 1 mg IM ONCE PRN; Protocol PRN Reason: Adult Acute Hypoglycemia Prot. Heparin Sodium (Porcine) (Heparin, Porcine 1,000 Unit/Ml Inj 10 Ml) 10,000 unit INTRACATH PRN PRN; Protocol PRN Reason: DIALYSIS USE ONLY Last Admin: 12/14/22 09:58 Dose: 10,000 unit Heparin Sodium (Porcine) (Heparin, Porcine 1,000 Unit/Ml Inj 10 Ml) 1,000 unit IV PRN PRN; Protocol PRN Reason: DIALYSIS USE ONLY Last Admin: 12/14/22 09:57 Dose: 1,000 unit Hydralazine HCl (Hydralazine 50 Mg Tablet) 50 mg PO TID [facility] Last Admin: 12/16/22 15:55 Dose: 50 mg Hydralazine HCl (Hydralazine 20 Mg/Ml Inj 1 Ml) 10 mg IVP Q6H PRN PRN Reason: HYPERTENSION Ceftriaxone Sodium 1,000 mg/ (Sodium Chloride) 50 mls @ 100 mls/hr IV Q24H [facility]; Protocol Last Infusion: 12/16/22 08:31 Dose: 0 mls/hr Dextrose (D5w) 500 mls @ 100 mls/hr IV ONCE PRN; Protocol PRN Reason: Adult Acute Hypoglycemia Prot Albumin Human (Albumin) 12.5 gm in 50 mls @ 60 mls/hr IV PRN PRN PRN Reason: Hypotension and/or symptomatic Sodium Chloride (Sodium Chloride 0.9%) 1,000 mls @ 0 mls/hr IV .Q0M PRN PRN Reason: hypotension or symptomatic Albumin Human (Albumin) 12.5 gm in 50 mls @ 60 mls/hr IV PRN PRN PRN Reason: Hypotension and/or symptomatic Sodium Chloride (Sodium Chloride 0.9%) 1,000 mls @ 0 mls/hr IV .Q0M PRN PRN Reason: hypotension or symptomatic Sodium Chloride (Sodium Chloride 0.9%) 1,000 mls @ 30 mls/hr IV .Q24H [facility] Metoprolol Succinate (Metoprolol Succinate Er (24 Hr) 50 Mg Tablet) 50 mg PO BID [facility] Last Admin: 12/16/22 08:33 Dose: Not Given Morphine Sulfate (Morphine 4 Mg/Ml Sdv 1 Ml) 1 mg IVP Q4H PRN PRN Reason: SEVERE PAIN Multivitamins (F-Zmvlurb-Vukhlgi C Tablet) 1 each PO BEDTIME [facility] Last Admin: 12/15/22 20:48 Dose: 1 each Nicotine (Nicotine 14 Mg Patch) 1 patch TRANSDERMA DAILY [facility] Last Admin: 12/16/22 08:27 Dose: 1 patch Ondansetron HCl (Ondansetron 2 Mg/Ml Sdv 2 Ml) 4 mg IVP Q8H PRN PRN Reason: vomiting, or N/V if npo Pantoprazole Sodium (Pantoprazole 40 Mg Sdv) 40 mg IVP Q12H [facility] Last Admin: 12/16/22 08:27 Dose: 40 mg Prednisone (Prednisone 20 Mg Tablet) 40 mg PO DAILY [facility] Ropinirole HCl (Ropinirole 1 Mg Tablet) 1 mg PO DAILY [facility] Last Admin: 12/16/22 08:26 Dose: 1 mg Sucralfate (Sucralfate 1 Gm Tablet) 1 gm PO Q12H [facility] Last Admin: 12/16/22 08:25 Dose: 1 gm Vitals/I&O/Wt Last Vital Signs Temp 97.7 F 12/17/22 12:23 Pulse 77 12/17/22 12:23 Resp 18 12/17/22 12:23 BP 159/70 12/17/22 12:23 Pulse Ox 98 12/17/22 12:23 O2 Del Method Room Air 12/17/22 11:07 O2 Flow Rate 2 12/15/22 01:00 12/16/22 12/17/22 12/17/22 22:59 06:59 14:59 Intake Total 240 / 890 50 / 50 Balance 240 / -2700 50 / 50 Weight last 48 hrs Weight 97.1 kg Physical Exam Narrative: General: No acute distress, AO x3 HEENT: PERRLA, pupils bilaterally equal and reactive, pallors not present Chest: Normal vesicular breath sounds, no added sounds, equal good air entry bilaterally CVS: S1-S2 regular, no murmurs, no tachycardia, no gallops, no rubs Abdomen: Soft, nontender, no organomegaly, bowel sounds present Neuro: No focal deficits, no facial deformity, AO x3, power 5/5 in all limbs Data 12/17/22 04:32 12/17/22 04:32 Micro: Microbiology 12/15/22 00:30 Gram Stain - Final Sputum - Expectorated Sputum Sputum Culture - Preliminary 12/14/22 04:45 Urine Culture - Final Urine,Clean Catch Enterococcus faecalis A&P Assessment and plan (1) Acute hyperkalemia: resolved post HD (2) Moderate to severe mitral regurgitation: (3) XI (obstructive sleep apnea): (4) COPD (chronic obstructive pulmonary disease): (5) Tobacco abuse counseling: (6) ESRD on hemodialysis: (7) Anemia: (8) ESRD (end stage renal disease): (9) Acute exacerbation of congestive heart failure: (10) Hyperlipidemia: Qualifiers: Hyperlipidemia type: mixed hyperlipidemia Qualified Code(s): E78.2 - Mixed hyperlipidemia (11) Hypertension: Qualifiers: Hypertension type: essential hypertension Qualified Code(s): I10 - Essential (primary) hypertension (12) Diabetes: Qualifiers: Diabetes mellitus type: type 2 Diabetes mellitus dedicated intermodal truck driver insulin use: with dedicated intermodal truck driver use Diabetes mellitus complication status: with diabetic arthropathy Diabetes mellitus complication detail: with other arthropathy Qualified Code(s): E11.618 - Type 2 diabetes mellitus with other diabetic arthropathy; 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 Multifactorial ?COPD exacerbation, ? Systolic and diastolic CHF exacerbation ? Fluid overload - s/p HD on 12/14 with improved respiratory status, receiving hemodialysis again today. Atrial fibrillation detected by EMS, also possible wide-complex tachycardia, currently atrial fibrillation with slow ventricular response ? Continue home amiodarone ? Continue home metoprolol -He is not on any anticoagulation due to history of hematochezia and also longstanding anemia. ? Patient has moderate to severe mitral valve regurg, crdiology consulted to as sess for ALEXANDER Moderate to severe mitral valve regurg ? Planned ALEXANDER today COPD exacerbation ? Decadron 6 mg IV push every 24 hours, changed to prednisone p.o. today. ? Smoking cessation counseling ? Continue Rocephin and doxycycline ? DuoNeb, budesonide Systolic and diastolic CHF exacerbation, with fluid overload ? Nephrology consulted for dialysis, s/p HD on 12/14 and again today ? Continue p.o. Bumex 1 mg p.o. twice daily Chest pain, with NSTEMI ? Serial EKGs, serial troponins with elevated 6 hr delta - Cardioloy consulted with + delta and ongoing chest pain ; likely to be to be type 2 [place] ? discontinue heparin drip - chest pain has resolved ? Continue aspirin, statin, beta-reggie ? Monitor for chest pain Hyperkalemia ?resolved Anemia, with complaints of hematochezia as outpatient ? As outpatient there is plans on a colonoscopy ? No complaints of hematochezia currently ? 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 Curerently blood cx negative to date Transfer to [facility] Attestations Medical Necessity Statement*: Awaiting ALEXANDER today Coding Level of Care Code Acute Code for Chg Fwd Moderate MDM includes number and complexity of problems actively addressed during encounter, amount and/or complexity of data reviewed/ordered and described risk of complication, morbidity or mortality of management as documented Diagnoses Acute hyperkalemia E87.5 Moderate to severe mitral regurgitation I34.0 XI (obstructive sleep apnea) G47.33 COPD (chronic obstructive pulmonary disease) J44.9 Tobacco abuse counseling Z71.6 ESRD on hemodialysis N18.6; Z99.2 Anemia D64.9 ESRD (end stage renal disease) N18.6 Acute exacerbation of congestive heart failure I50.9 Hyperlipidemia E78.2 Hyperlipidemia type: mixed hyperlipidemia Hypertension I10 Hypertension type: essential hypertension Diabetes E11.618; Z79.4 Diabetes mellitus type: type 2 Diabetes mellitus dedicated intermodal truck driver insulin use: with dedicated intermodal truck driver use Diabetes mellitus complication status: with diabetic arthropathy Diabetes mellitus complication detail: with other arthropathy Atrial fibrillation I48.91 COPD exacerbation J44.1 Chest pain R07.9 Acute hypoxic respiratory failure J96.01 NSTEMI (non-ST elevated myocardial infarction) I21.4 Elevated lactic acid level R79.89
[2022-12-17] MEDS: sodium chloride 0.9% 1,000 ML 30 ML IV (12:14)
--- NOTE | 2022-12-17 12:25 | ANES.PAUD2 ---
Pre-Anesthetic Update Pre-Anesthetic Assessment: Date of Surgery/Procedure: 12/17/22 Preop Diagnosis: Tricuspid regurg. Evaluation. Proposed Procedure: Operation Date: 12/17/22 13:00 Proposed Procedures p ALEXANDER(Not Applicable) - Bertin Tierney MD Any changes to Pre-Anesthetic Assessment?: No Last Intake: > 8 hrs, small sips with meds Labs Last 48hrs: Short CBC 12/16/22 12/17/22 Range/Units 04:20 04:32 WBC 11.94 H 11.63 H (3.29-11.43) 10^ 3/uL Hgb 7.60 L 7.70 L (11.27-16.99) g/ dL Hct 23.4 L 25.0 L (37-53) % MCV 100.0 106.8 H (82-101) fl Plt Count 172 151 L (157-399) 10^3/c mm Neut % (Auto) 76.7 75.0 % Neut # (Auto) 9.15 H 8.73 H (1.8-7.7) 10^3/u L BMP 12/16/22 12/17/22 04:20 04:32 Sodium 134 L 137 Potassium 4.8 4.3 Chloride 93 L 98 Carbon Dioxide 24 23 BUN 82 H* 47 H Creatinine 6.3 H* 4.3 H Glucose 195 H 220 H Calcium 8.7 8.6 Liver Function 12/16/22 12/17/22 Range/Units 04:20 04:32 Total Bilirubin 0.4 0.4 (0.15-1.2) mg/dL AST 55 H 38 (0-40) U/L ALT 115 H 88 H (0-41) U/L Alkaline Phosphata se 113 108 (40-130) U/L Albumin 3.4 L 3.7 (3.5-5.2) g/dL Blood Bank 12/14/22 12:12 Blood Type O Positive Rho(D) Type Positive Antibody Screen Negative Coags 12/15/22 14:32 APTT 54.9 H Vitals: Temperature 97.8 F 12/17/22 11:07 Temperature Source Axillary 12/17/22 11:07 Pulse Rate 73 12/17/22 11:07 Pulse Rhythm Regular 12/15/22 20:00 Pulse Strength 3+ Normal 12/17/22 08:00 Respiratory Rate 20 H 12/17/22 11:07 Respiratory Effort Spontaneous, Non- Labored 12/17/22 08:00 Respiratory Depth Normal 12/17/22 08:00 Respiratory Patter n Normal 12/15/22 17:33 Blood Pressure 152/73 12/17/22 11:07 Blood Pressure Lola n 99 12/17/22 11:07 Blood Pressure Pos ition Sitting 12/16/22 15:55 Pulse Oximetry 96 12/17/22 11:07 Oxygen Delivery Me thod Room Air 12/17/22 11:07 Oxygen Flow Rate 2 12/15/22 01:00 Sepsis Recent Feve r Within 48 Hours No 12/14/22 03:53 Sepsis New/Unexpla ined Change in Men katy Status No 12/14/22 03:53 Exam: Pre-Anes Outpt Exam: alert, oriented x 3, clear to auscultation bilaterally and regular rate & rhythm Cardiac Studies: Echocardiogram 12/14/22
--- NOTE | 2022-12-17 13:54 | PM.PN ---
Subjective Subjective: The patient is feeling okay. No chest pain or chest tightness. Has a baseline shortness of breath. Vital signs remaining stable. Hemoglobin is 7.7 today. Medications: Medication Review Details: Current Medications Acetaminophen (Acetaminophen 325 Mg Tablet) 650 mg PO Q6H PRN PRN Reason: Mild/Mod Pain Or Temp >/= 101 Albuterol/Ipratropium (Ipratropium-Albuterol 3 Ml Neb) 3 ml INHALATION Q4H.RESPIRATORY [facility] Last Admin: 12/17/22 11:06 Dose: 3 ml Amiodarone HCl (Amiodarone 200 Mg Tablet) 100 mg PO DAILY [facility] Last Admin: 12/17/22 09:29 Dose: 100 mg Aspirin (Aspirin 81 Mg Chew Tablet) 81 mg PO DAILY [facility] Last Admin: 12/17/22:28 Dose: 81 mg Atorvastatin Calcium (Atorvastatin 40 Mg Tablet) 40 mg PO BEDTIME [facility] Last Admin: 12/16/22 21:04 Dose: 40 mg Budesonide (Budesonide 0.5 Mg/2 Ml Neb) 0.5 mg INHALATION BID.RESPIRATORY [facility]ENN[facility] Last Admin: 12/17/22 08:16 Dose: 0.5 mg Bumetanide (Bumetanide 1 Mg Tablet) 1 mg PO BID [facility] Last Admin: 12/17/22 09:29 Dose: 1 mg Cyanocobalamin (Cyanocobalamin 1,000 Mcg Tablet) 1,000 mcg PO DAILY [facility] Last Admin: 12/17/22 09:29 Dose: 1,000 mcg Dextrose (Dextrose 50% Syringe 50 Ml) 50 ml IVP PRN PRN; Protocol PRN Reason: hypoglycemia protocol Dextrose (Dextrose 50% Syringe 50 Ml) 25 ml IVP ONCE PRN; Protocol PRN Reason: hypoglycemia protocol Doxycycline Monohydrate (Doxycycline 100 Mg Tablet) 100 mg PO BID [facility]; Protocol Last Admin: 12/17/22 09:28 Dose: 100 mg Escitalopram Oxalate (Escitalopram 10 Mg Tablet) 10 mg PO DAILY [facility] Last Admin: 12/17/22 09:28 Dose: 10 mg Glucagon (Glucagon 1 Mg/Ml Inj 1 Ml) 1 mg IM ONCE PRN; Protocol PRN Reason: Adult Acute Hypoglycemia Prot. Heparin Sodium (Porcine) (Heparin, Porcine 1,000 Unit/Ml Inj 10 Ml) 10,000 unit INTRACATH PRN PRN; Protocol PRN Reason: DIALYSIS USE ONLY Last Admin: 12/14/22 09:58 Dose: 10,000 unit Heparin Sodium (Porcine) (Heparin, Porcine 1,000 Unit/Ml Inj 10 Ml) 1,000 unit IV PRN PRN; Protocol PRN Reason: DIALYSIS USE ONLY Last Admin: 12/14/22 09:57 Dose: 1,000 unit Hydralazine HCl (Hydralazine 50 Mg Tablet) 50 mg PO TID [facility] Last Admin: 12/17/22 09:29 Dose: 50 mg Hydralazine HCl (Hydralazine 20 Mg/Ml Inj 1 Ml) 10 mg IVP Q6H PRN PRN Reason: HYPERTENSION Ceftriaxone Sodium 1,000 mg/ (Sodium Chloride) 50 mls @ 100 mls/hr IV Q24H [facility]; Protocol Last Infusion: 12/17/22 10:57 Dose: Infused Dextrose (D5w) 500 mls @ 100 mls/hr IV ONCE PRN; Protocol PRN Reason: Adult Acute Hypoglycemia Prot Albumin Human (Albumin) 12.5 gm in 50 mls @ 60 mls/hr IV PRN PRN PRN Reason: Hypotension and/or symptomatic Sodium Chloride (Sodium Chloride 0.9%) 1,000 mls @ 0 mls/hr IV .Q0M PRN PRN Reason: hypotension or symptomatic Albumin Human (Albumin) 12.5 gm in 50 mls @ 60 mls/hr IV PRN PRN PRN Reason: Hypotension and/or symptomatic Sodium Chloride (Sodium Chloride 0.9%) 1,000 mls @ 0 mls/hr IV .Q0M PRN PRN Reason: hypotension or symptomatic Sodium Chloride (Sodium Chloride 0.9%) 1,000 mls @ 30 mls/hr IV .Q24H [facility] Last Admin: 12/17/22 12:14 Dose: 30 mls/hr Sodium Chloride (Sodium Chloride 0.9%) 1,000 mls @ 30 mls/hr IV .Q24H [facility] Stop: 12/18/22 12:29 Lidocaine HCl (Lidocaine 2% Viscous 15 Ml Udc) 1 ml TOPICAL PRN PRN PRN Reason: Anesthetic prior to IV start Lidocaine HCl (Lidocaine 1% Inj 20 Ml) 0.1 ml INTRADERMA PRN PRN PRN Reason: anesthetic prior to IV start Stop: 12/18/22 12:22 Metoprolol Succinate (Metoprolol Succinate Er (24 Hr) 50 Mg Tablet) 50 mg PO BID [facility] Last Admin: 12/17/22 09:29 Dose: 50 mg Midazolam HCl (Midazolam 1 Mg/Ml Inj 2 Ml) 2 mg IVP Q5M PRN PRN Reason: Preop Anxiety Morphine Sulfate (Morphine 4 Mg/Ml Sdv 1 Ml) 1 mg IVP Q4H PRN PRN Reason: SEVERE PAIN Morphine Sulfate (Morphine 4 Mg/Ml Sdv 1 Ml) 0 mg IVP Q5M PRN PRN Reason: Breakthrough Pain PACU PhaseII Multivitamins (Q-Lxnhoir-Oecgyic C Tablet) 1 each PO BEDTIME [facility] Last Admin: 12/16/22 21:04 Dose: 1 each Nicotine (Nicotine 14 Mg Patch) 1 patch TRANSDERMA DAILY [facility] Last Admin: 12/17/22 09:31 Dose: 1 patch Ondansetron HCl (Ondansetron 2 Mg/Ml Sdv 2 Ml) 4 mg IVP Q8H PRN PRN Reason: vomiting, or N/V if npo Ondansetron HCl (Ondansetron 2 Mg/Ml Sdv 2 Ml) 4 mg IVP Q15M PRN PRN Reason: Nausea/Vomiting PACU PHASE II Pantoprazole Sodium (Pantoprazole 40 Mg Sdv) 40 mg IVP Q12H [facility] Last Admin: 12/17/22 09:30 Dose: 40 mg Polyethylene Glycol (Polyethylene Glycol 3350 Pkt 17 Gm) 17 gm PO DAILY [facility] Last Admin: 12/17/22 09:30 Dose: 17 gm Prednisone (Prednisone 20 Mg Tablet) 40 mg PO DAILY [facility] Last Admin: 12/17/22 09:28 Dose: 40 mg Ropinirole HCl (Ropinirole 1 Mg Tablet) 1 mg PO BEDTIME [facility] Ropinirole HCl (Ropinirole 1 Mg Tablet) 1 mg PO ONCE [facility] Last Admin: 12/17/22 01:59 Dose: 1 mg Sucralfate (Sucralfate 1 Gm Tablet) 1 gm PO Q12H [facility] Last Admin: 12/17/22 08:53 Dose: Not Given Vitals/I&O/Wt Last Vital Signs Temp 97.9 F 12/17/22 13:32 Pulse 91 12/17/22 13:47 Resp 18 12/17/22 13:47 BP 168/83 12/17/22 13:47 Pulse Ox 96 12/17/22 13:47 O2 Del Method Room Air 12/17/22 13:47 O2 Flow Rate 7 12/17/22 13:37 12/16/22 12/17/22 12/17/22 22:59 06:59 14:59 Intake Total 240 / 890 50 / 50 Balance 240 / -2700 50 / 50 Weight last 48 hrs Weight 214 lb 1.102 oz Physical Exam Narrative: GENERAL: The patient is alert and oriented times three. Not in any acute distress. HEENT: Moderate pallor. No icterus or lymphadenopathy.Oral cavity: There are no mucous membrane lesions. NECK: Trachea appears to be central. No masses noted. No JVD or thyromegaly appreciated. RESPIRATORY: Chest is symmetrical. No intercostals muscle retraction or any accessory muscle activation. There is no chest wall tenderness. Breath sounds are heard bilaterally. No rales or rhonchi heard. No evidence of any consolidation. BREASTS: Deferred. HEART: The heart sounds are normal. No S3 or S4. Pansystolic murmur in the lower sternal border. No diastolic murmurs. No pericardial rub ABDOMEN: No vessel pulsations or distention. No tenderness. No organomegaly appreciated. Bowel sounds are normally heard. : Deferred. RECTAL: Deferred. LYMPHATIC: No lymphadenopathy noted in the neck. EXTREMITIES: No edema or cyanosis. No clubbing. MUSCULOSKELETAL: No acute joint deformities or swelling SKIN: There are no significant rashes or ecchymosis NEUROPSYCHIATRIC: The patient is alert and oriented x3. Appears to be in a good mood. No tremors or rigidity noted. Data 12/18/22 06:19 12/18/22 06:19 Other Labs: Laboratory Last Values WBC 11.63 10^3/uL (3.29-11.43) H 12/17/22 04:32 RBC 2.34 10^6/uL (3.85-5.65) L 12/17/22 04:32 Hgb 7.70 g/dL (11.27-16.99) L 12/17/22 04:32 Hct 25.0 % (37-53) L 12/17/22 04:32 MCV 106.8 fl (82-101) H 12/17/22 04:32 MCH 32.9 pg (27-33) 12/17/22 04:32 MCHC 30.8 g/dL (30-55) D 12/17/22 04:32 RDW 21.1 % (12.1-15.1) H 12/17/22 04:32 Plt Count 151 10^3/cmm (157-399) L 12/17/22 04:32 MPV 9.9 fL (7.4-10.4) 12/17/22 04:32 Neut % (Auto) 75.0 % 12/17/22 04:32 Lymph % (Auto) 14.9 % 12/17/22 04:32 [place] % (Auto) 7.8 % 12/17/22 04:32 Eos % (Auto) 0.1 % 12/17/22 04:32 Baso % (Auto) 0.2 % 12/17/22 04:32 Neut # (Auto) 8.73 10^3/uL (1.8-7.7) H 12/17/22 04:32 Lymph # (Auto) 1.7 10^3/uL (0.8-4.8) 12/17/22 04:32 [place] # (Auto) 0.9 10^3/uL (0.2-0.9) 12/17/22 04:32 Eos # (Auto) 0.0 10^3/uL (0.0-0.8) 12/17/22 04:32 Baso # (Auto) 0.0 10^3/uL (0.0-0.1) 12/17/22 04:32 Nucleated RBC % (auto) 1.3 % 12/17/22 04:32 Nucleated RBCs # 0.2 /100WBC 12/17/22 04:32 PT 14.50 SECONDS (12.1-14.9) 12/14/22 03:35 INR 1.09 (0.8-1.2) 12/14/22 03:35 APTT 54.9 SECONDS (23.9-36.7) H 12/15/22 14:32 D-Dimer 1.18 ug/mLFEU (0-0.59) H 12/14/22 03:35 Specimen Type Arterial 12/14/22 05:51 Sample Site Radial, left 12/14/22 05:51 ABG pH 7.42 (7.35-7.45) 12/14/22 05:51 ABG pCO2 41.6 mmHg (35-45) 12/14/22 05:51 ABG pO2 61.5 mmHg (80.0-100.0) L 12/14/22 05:51 ABG HCO3 27.1 mmol/L (22-26) H 12/14/22 05:51 ABG Base Excess 2.4 mmol/L (-2.0-2.0) H 12/14/22 05:51 Kash Test Pos 12/14/22 05:51 Hematocrit 22.0 % (42-52) L 12/14/22 05:51 O2 Delivery Device Room air 12/14/22 05:51 Mumps Developer ID [email or web address] 12/14/22 05:51 Sodium 137 mmol/L (136-145) 12/17/22 04:32 Potassium 4.3 mmol/L (3.5-5.1) 12/17/22 04:32 Chloride 98 mmol/L (98-107) 12/17/22 04:32 Carbon Dioxide 23 mmol/L (22-29) 12/17/22 04:32 Anion Gap 20.3 (5-19) H 12/17/22 04:32 BUN 47 mg/dL (8-23) H 12/17/22 04:32 Creatinine 4.3 mg/dL (0.7-1.2) H 12/17/22 04:32 GFR Calculation 14.2 mL/min (90-130) L 12/17/22 04:32 Glucose 220 mg/dL (65-115) H 12/17/22 04:32 POC Glucose 229 mg/dL (70-110) H 12/17/22 10:52 Estimat Average Glucose 91 12/14/22 03:35 Hemoglobin A1c 4.8 % (4.0-6.0) 12/14/22 03:35 Calculated Osmolality 303 mOsm/kg (285-295) H 12/17/22 04:32 Lactic Acid 2.8 mmol/L (0.5-2.2) H 12/14/22 04:14 Lactic Acid (Sepsis) 1.9 mmol/L (0.5-2.2) 12/14/22 07:50 Calcium 8.6 mg/dL (8.5-10.5) 12/17/22 04:32 Phosphorus 4.6 mg/dL (2.5-4.5) H 12/17/22 04:32 Magnesium 2.0 mg/dL (1.7-2.3) 12/17/22 04:32 Iron Cancelled 12/14/22 05:33 TIBC 197 mcg/dl 12/14/22 04:26 % Saturation 60.4 % (20-50) H 12/14/22 04:26 Unsat Iron Binding 78 ug/dL (112-347) L 12/14/22 04:26 Ferritin 35474 ng/mL (30-400) H 12/14/22 04:26 Total Bilirubin 0.4 mg/dL (0.15-1.2) 12/17/22 04:32 AST 38 U/L (0-40) 12/17/22 04:32 ALT 88 U/L (0-41) H 12/17/22 04:32 Alkaline Phosphatase 108 U/L (40-130) 12/17/22 04:32 Troponin T Baseline 208 ng/L (0-15) H* 12/14/22 03:35 Troponin T 120 Minute 212.5 ng/L (0-15) H 12/14/22 05:33 Delta Troponin T 4.5 ABS# (0-10) 12/14/22 05:33 Troponin T Hi Sens 6Hr 238.2 ng/L (0-15) H 12/14/22 09:28 Troponin T Hi Sens 6Hr Delta 30.2 ng/L (0-12) H* 12/14/22 09:28 C-Reactive Protein 18.4 mg/L (0.0-4.9) H 12/14/22 04:26 NT-Pro-B Natriuret Pep 13051 pg/mL (0-125) H 12/14/22 04:26 Total Protein 5.5 g/dL (6.6-8.7) L 12/17/22 04:32 Albumin 3.7 g/dL (3.5-5.2) 12/17/22 04:32 Globulin 1.8 g/dL (1.3-4.6) 12/17/22 04:32 Procalcitonin 0.92 ng/mL (0-0.5) H 12/14/22 04:26 TSH 3.11 uIU/mL (0.27-4.20) 12/14/22 04:26 Urine Color Yellow (Yellow) 12/14/22 04:45 Urine Appearance Hazy (CLEAR) A 12/14/22 04:45 Urine pH 9 (5-7) H 12/14/22 04:45 Ur Specific [place] 1.010 (1.005-1.030) 12/14/22 04:45 Urine Protein 3+ (Negative) H 12/14/22 04:45 Urine Glucose (UA) 2+ (Normal) H 12/14/22 04:45 Urine Ketones Negative (Negative) 12/14/22 04:45 Urine Blood 2+ (Negative) H 12/14/22 04:45 Urine Nitrate Negative (Negative) 12/14/22 04:45 Urine Bilirubin Neg (Negative) 12/14/22 04:45 Prot Sulfosalicylic Acd Negative (Negative) 12/14/22 04:45 Urine Urobilinogen Neg mg/dL (Negative) 12/14/22 04:45 Ur Leukocyte Esterase 1+ (Negative) H 12/14/22 04:45 Urine RBC 0-4 /hpf (0-2) H 12/14/22 04:45 Urine WBC 25-40 /hpf (0-5) H 12/14/22 04:45 Ur Squamous Epith Cells 5-10 /hpf (0-5) H 12/14/22 04:45 Amorphous Sediment Trace /hpf 12/14/22 04:45 Urine Bacteria Trace /hpf (NONE) 12/14/22 04:45 Urine Opiates Screen Positive ng/mL (Negative) H 12/14/22 04:45 Ur Barbiturates Screen Negative ng/mL (Negative) 12/14/22 04:45 Ur Phencyclidine Scrn Negative ng/mL (Negative) 12/14/22 04:45 Ur Amphetamines Screen Negative ng/mL (Negative) 12/14/22 04:45 U Benzodiazepines Scrn Negative ng/mL (Negative) 12/14/22 04:45 Urine Cocaine Screen Negative ng/mL (Negative) 12/14/22 04:45 U Marijuana (THC) Screen Negative ng/mL (Negative) 12/14/22 04:45 Ethyl Alcohol < 10 mg/dL (0-10) 12/14/22 04:26 Hepatitis A IgM Ab Non-reactive (Nonreactive) 12/14/22 04:26 Hep Bs Antigen Non-reactive (Nonreactive) 12/14/22 04:26 Hep Bs Antibody 31.7 (11.5-1000) 12/14/22 04:26 Hep B Core IgM Ab Non-reactive (Nonreactive) 12/14/22 04:26 Hepatitis C Antibody Non-reactive (Nonreactive) 12/14/22 04:26 HIV 1&2 Ab & HIV 1 Ag Non-reactive (Non-Reactiv) 12/14/22 04:26 HIV 1&2 Antibody Non-reactive (Non-Reactiv) 12/14/22 04:26 SARS-CoV-2 Ag (Rapid) negative (Negative) 12/14/22 04:53 Blood Type O Positive 12/14/22 12:12 Rho(D) Type Positive 12/14/22 12:12 Antibody Screen Negative 12/14/22 12:12 Crossmatch See Detail 12/14/22 12:12 Micro: Microbiology 12/15/22 00:30 Gram Stain - Final Sputum - Expectorated Sputum Sputum Culture - Preliminary 12/14/22 04:45 Urine Culture - Final Urine,Clean Catch Enterococcus faecalis A&P Assessment and plan (1) Elevated troponin: Most likely is related to type II myocardial infarction. He apparently had no significant obstructive coronary disease by previous angiogram. Currently he seems to be stable. His chest symptoms are more or less constant with some waxing and waning. He has a musculoskeletal component for the chest pain. (2) Acute on chronic diastolic (congestive) heart failure: Clinically compensated (3) Moderate to severe mitral regurgitation: The ALEXANDER was attempted. Apparently because of technical difficulties, the test had to be aborted. (4) XI (obstructive sleep apnea): May continue on the current treatment. (5) H/O aortic valve replacement with tissue graft: The valve function appears to be appropriate. 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 (7) ESRD (end stage renal disease): Patient is on hemodialysis 3 times a week. This may be continued. (8) Anemia: Had total of 2 units of blood transfusions in the hospital admission. May continue on the current measures. Plan In view of the patient's recurrent decompensated heart failure, elevated troponin T, valvular heart disease, in order to further evaluate his coronary status as well as hemodynamics, a right and left heart catheterization with a coronary angiogram would be appropriate. This was discussed with the patient. The risk of bleeding, hematoma, vascular injury, myocardial infarction, myocardial perforation, malignant cardiac arrhythmias ,CVA, acute heart failure ,need for emergency dialysis and other concomitant complications were explained in detail. Patient understood this well and consented to proceed. 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
--- NOTE | 2022-12-17 13:57 | PM.OP2 ---
Brief Operative Note Date of procedure: 12/17/22 Procedure Done: We attempted to do the ALEXANDER today. Apparently I had difficulty in advancing the transesophageal probe into the esophagus. I requested the anesthesia service to advance the probe under visualization. The anesthesia service felt that it might be difficult to do this. Because of the technical difficulties, it was decided to abort the procedure. There was minimal oozing of blood in the oropharynx. Patient's vital signs remained stable. So it was decided to do the procedure at a later time with tracheal intubation. Complications: none Post-op Plan: Consider ALEXANDER under endotracheal intubation Coding Level of Care Code Acute Code for Chg Fwd
--- NOTE | 2022-12-17 14:00 | ANE.PACU2 ---
Inpatient post-anesthesia follow up: Airway intact: Yes Vital signs: Temperature 98.5 F Pulse Rate 89 Respiratory Rate 18 Blood Pressure 143/64 Pulse Oximetry 95 Oxygen Delivery Me thod Room Air Oxygen Flow Rate 7 Fraction of Inspir ed Oxygen Hydration adequate: Yes Nausea and vomiting: No Pain level: 1 Mental status: Baseline
[2022-12-17 17:11] LABS: Glucose Point of Care 295 mg/dL (70-110)
[2022-12-17] MEDS: b-complex-vitamin c Tablet 1 EACH PO (20:33)
[2022-12-17] MEDS: sucralfate 1 gm Tablet PO (20:33)
[2022-12-17] MEDS: atorvastatin 40 mg Tablet PO (20:34)
[2022-12-17 20:40] LABS: Glucose Point of Care 365 mg/dL (70-110)
[2022-12-17] MEDS: insulin lispro 100 unit/1 mL SUBCUT (21:01)
--- NOTE | 2022-12-17 21:42 | PC.NURSE ---
Type and cross . Will administer Blood product when type and cross is finished.
[2022-12-18] VITALS (73 sets, daily range): BP systolic 106–190; BP diastolic 51–93; PULSE 70–97; RESP 4–29; TEMP 36.3–36.9; O2SAT 81–99
[2022-12-18] MEDS: hyDRALAzine 20 mg/mL INJ 1 mL 10 MG IVP (01:52)
[2022-12-18] MEDS: ipratropium-albuterol 3 mL Neb INHALATION ×5 (03:25→23:42)
[2022-12-18 06:26] LABS: Glucose Point of Care 198 mg/dL (70-110)
[2022-12-18 06:28] LABS: Basophils % 0.1 %; Hematocrit 26.5 % (37-53); Lymphocytes # 0.8 10^3/uL (0.8-4.8); Lymphocytes % 6.1 %; Mean Corpuscular HGB Conc 32.1 g/dL (30-55); Mean Corpuscular Hemoglobin 32.4 pg (27-33); Mean Corpuscular Volume 101.1 fl (82-101); Mean Platelet Volume 9.6 fL (7.4-10.4); Monocytes # 0.8 10^3/uL (0.2-0.9); Monocytes % 6.4 %; Neutrophils # 10.74 10^3/uL (1.8-7.7); Neutrophils % 86.3 %; Nucleated Red Blood Cells # 0.1 /100WBC; Nucleated Red Blood Cells % 0.8 %; Platelet Count 138 10^3/cmm (157-399); Red Blood Count 2.62 10^6/uL (3.85-5.65); White Blood Count 12.45 10^3/uL (3.29-11.43)
[2022-12-18 06:48] LABS: Blood Urea Nitrogen 68 mg/dL (8-23); Carbon Dioxide 23 mmol/L (22-29); Chloride 96 mmol/L (98-107); Glomerular Filtration Rate 9.3 mL/min (90-130); Glucose 191 mg/dL (65-115); Osmolality Calculated 305 mOsm/kg (285-295); Sodium 135 mmol/L (136-145)
--- NOTE | 2022-12-18 07:01 | PM.MISC ---
Miscellaneous Note Note: Called to OR due to difficulty passing ALEXANDER probe from patient anatomy. Proceduralist, Dr. Tierney, requested that I use a intubating blade to visualize the area to pass the tube. Informed proceduralist this might be difficult because patients are usually paralyzed with placement of MAC/Leon blade. Attempted visualization with MAC 3.5 blade, I noted pooling of blood in posterior pharnyx, but unfortunately I was unable to visualize epiglottis with this blade. Attempted to better visualize with glidescope (these are much larger blades), but also informed proceduralist that this blade might take up too much room in the mouth and not allow enough room for passage of scope. Even video Glidescope only revealed a grade IIb airway, but I wasn't able to see or open esophagus. It appeared closed The view may have improved with paralyzation and intubation, but the patient already seemed to have a challenging airway and it may have been challenging to place the ETT. Some damage to the throat with active bleeding was already noted, so any further attempts at manipulation may have lead to more tissue damage. I also felt that the glidescope (the blade that DID provide some view the anatomy) would still probably prevent passage of the large ALEXANDER probe. Thus, the decision was taken in tandem with the proceduralist to abort the procedure to prevent any further harm. Afterwards discussing the sequence of events, I learned that the SRNA student had also tried visualizing the anatomy with a MAC blade before my arrival, and only saw some erosions in the back of the throat.
--- NOTE | 2022-12-18 07:53 | XACV_ITS ---
Exam Room: [facility] Ht: 175 cm Wt: 97 kg BSA: 2.20 m2 Gender: Male : 1960 Any Known Allergies: Other Exam Priority: Routine Procedure(s): Procedure Description: Diagnostic procedure Procedure Description: Left Heart Catheterization Procedure Description: Right Heart Catheterization Procedure Description: Left ventriculography Procedure Description: O2 saturation Procedure Description: Coronary Angiography Niall CORONA; Diagnostic Cath Status: Urgent Diagnostic Findings * The left main is a medium caliber vessel with no significant stenotic lesions. * The left anterior descending artery is a medium to large caliber vessel which appears to wrap around the LV apex. The proximal LAD was found to be tortuous with 20 to 30% diffuse narrowing. No significant stenotic lesions were noted. The mid LAD was found to have minimal intimal regularities. The artery gives off a high diagonal branch. This branch also was found to have mild diffuse disease in the proximal segment. * The left circumflex artery is a medium caliber nondominant vessel with minimal intimal irregularities in the proximal to mid segment. No significant stenotic lesions were noted. The artery gives off a high obtuse marginal branch, intermedius artery, also was found to have no significant lesions. * The right coronary artery is a large-caliber dominant vessel with mild diffuse intimal irregularities in the proximal and distal segment. No significant stenotic lesions were noted. Conclusions 1. This is a 62-year-old white male, with a history of aortic valve endocarditis, status post aortic valve replacement x3, he is admitted to hospital with recurrent decompensated heart failure. He was found to have moderately severe mitral regurgitation. The aortic valve function was found to be appropriate. His troponin T was found to be elevated in the 200-300 range. He also was complaining of atypical chest pain. In order to further evaluate his coronary arteries as well as the hemodynamics, right and left heart catheterization with coronary angiogram and LV angiogram were recommended. Patient is known to have end-stage renal disease and is on hemodialysis. The findings are as follows. 2. Mild coronary artery disease. Normal LV ejection fraction of 55%. LVEDP of 21 mmHg. The right catheterization revealed mean right atrial pressure of 18. PA pressure was 87/35 with a mean of 56, consistent with a severe pulmonary hypertension. Pulmonary capillary wedge pressure was 28. The RV pressure was 85/4 with a mean of 20. Cardiac output by Mandy's is 6.0 with a cardiac index of 3.0 L/m2. Diagnostic RX Recommendation: medical therapy and/or counseling LV EDP: 21 mmHg Ventriculography Ejection Fraction: 55.0 % Left Ventriculography Findings: * LV gram was performed in the [place] projection. The LV cavity patient with normal size. There was mild hypokinesia of the mid anterior wall segment. LV ejection fraction was around 55%. The LVEDP was 21 mmHg. The mitral regurgitation was found to be moderate to moderately severe. Pressures Phase:Rest AO : 166 / 75 ( 112 ) @ 10:21:00 AM 122 / 88 ( 105 ) @ 10:23:00 AM 141 / 64 ( 97 ) @ 10:36:00 AM 141 / 62 ( 97 ) @ 10:36:00 AM 129 / 94 ( 111 ) @ 10:42:00 AM LV : 161 / -12 / 20 @ 10:29:00 AM 171 / -12 / 15 @ 10:34:00 AM 172 / -16 / 21 @ 10:35:00 AM 156 / -18 / 8 @ 10:36:00 AM 160 / -12 / 11 @ 10:36:00 AM RV : 85 / 4 / 20 @ 11:02:00 AM PA : 87 / 35 ( 56 ) @ 11:00:00 AM RA : a wave = 18 v wave = 24 mean = 18 @ 11:03:00 AM PCW : a wave = 28 v wave = 53 mean = 33 @ 11::00 AM a wave = 29 v wave = 55 mean = 33 @ 11::00 AM O2 Content Phase:Rest PA : O2 Content O2: 48.9 @ ::00 AM Saturations Phase:Rest AO : 91 @ :36:00 AM RA : 52 @ :36:00 AM RV : 48 @ :23:00 AM PA : 49 @ ::00 AM Cardiac Output Phase:Rest Mandy : 6 @ : AM Mandy Cardiac Index: 3 @ :: AM Flow Phase:Rest Qp : 6 @ :: AM Qs : 6 @ :: AM Valves Phase:DefaultPhase AV : 27.0 @ :: AM 27.0 @ : AM AV Mean Gradient: 22.0 @ :: AM 22.0 @ :: AM AV Flow: 262 @ :: AM AV Area: 1.3 @ :: AM AV Area Index: 0.59 @ : AM Clinical Evaluation EBL: 5mL-10mL Procedural Details Procedure Consent Obtained. Pre-Procedure Time Out. Identified patient by full name and date of as verbalized by the patient/guarantor. Does the consent match the physician's order: Yes. Accurate & Complete Informed Consent: Yes. Inpatient/Outpatient History & Physical on Chart: Yes. If H&P is completed, is and addenduem needed: No; If yes, is the addendum complete: N/A. Visualize and Verify Site with Patient/Guarantor: N/A. Relevant Radiology Images available: Yes. Pre-op teaching completed and patient verbalized understanding. The risks, benefits, and alternatives of sedation and/or procedure were discussed by physician. The patient agrees to continue. Procedure started. [facility] Clinical Fraility Score: 6: Moderately Frail. Cryptography Teacher Indications: Other. Chest Pain Symptom Assessment: Non-anginal Chest Pain. Correct patient, site and procedure confirmed by cath team. PERRLA. Strong, equal hand environmental engineering intern bilaterally. Lungs clear x 5 lobes. IV Site on Arrival: PICC Line. IV Fluids: 0.9% NaCl at KVO. 0 mL infused prior to label stamper. Pre Procedural Pulses: bilateral dorsalis pedis was Doppled. Pre Procedural Pulses: bilateral posterior tibial was Doppled. Baseline sample Acquired. HR: 96 BPM. Physician arrived. Physician scrubbed in. Immediate Pre-Procedure Time Out. Correct Patient: Yes; Correct Procedure: Yes; Correct Site: Yes; Correct Patient Position: Yes; Correct Supplies: Yes; Dried Flammable Prep: Yes; Blood Products Available: N/A;. Lidocaine 1% infiltrated to the right groin. Arterial access obtained with micropuncture set. Lidocaine 1% infiltrated to the right groin. A Right femoral angiogram was performed. Arterial access obtained with micropuncture set. Wire and needle removed. Manual pressure held. A 5 djiboutian JL4 catheter in over wire. Oxygen started at 2liters/min via nasal canula. Multiple views taken of left coronary artery. Catheter removed over the standard wire. A 5 djiboutian JR4 catheter in over wire. EDP Sample taken: LV 161/-13,20; HR: 79 BPM; SpO2: 97%. Exchange wire inserted through the catheter and advanced to the LV. Catheter removed over the exchange wire. A 5 djiboutian Angled Pig catheter in over wire. EDP Sample taken: LV 171/-13,15; HR: 86 BPM; SpO2: 97%. EDP Sample taken: LV 172/-17,21; HR: 93 BPM; SpO2: 97%. LV gram performed in [place] @ 12 mL/second for a total of 36 mL. EDP Sample taken: LV 156/-19,8; HR: 99 BPM; SpO2: 97%. Pullback taken: LV 160/-13,11; AO 141/64(97); Mean: 22mmHg, Peak to Peak: 27mmHg, SEP: 22sec/min; HR: 90 BPM; SpO2: 96%. Catheter removed over the standard wire. Sheath upsized to a 5 Fr. A 5 djiboutian JR4 catheter in over wire. Multiple views taken of right coronary artery. Catheter removed over the exchange wire. Lidocaine 1% infiltrated to the left groin. Oxygen turned off. Venous access obtained with a micropuncture set. Creston-Deana MON catheter inserted. 0.025 wire inserted through the Crest[place]. Oximetry samples were obtained. Normal venous range: 60-85%. Normal arterial range: 95-100%. Pressure measurements obtained. Respiratory called to run O2 saturations. Creston-Deana out. A Suture was successful obtaining hemostatsis at the Right Femoral artery insertion site. A Suture was unsuccessful obtaining hemostatsis at the Left Femoral vein insertion site. Arterial sheath flushed and connected to tranducer and pressure bag with heparinized saline. Post Procedure: Pulses reassessed and unchanged. PERRLA. Strong, equal hand environmental engineering intern bilaterally. No VTE prophylaxis required. Medication's Wasted: Heparin = 2500 units. Medication's Wasted: Other = Hydralazine 10 mg. Total IV fluids: 100 mL. Post-op diagnosis: Mild CAD, Moderate Mitral Regurg. Complications: None. Estimated blood loss: 5mL-10mL. Responsiveness - Normal response to verbal stimuli; alert and oriented, PERRLA. Airway - Unaffected, no intervention required; spontaneous ventilation. Circulation: W/N/L, pulses unchanged. Nausea/Vomiting: No. Procedure completed. Vital chart was stopped. Patient transferred by bed to 1st floor. Access Site Site: Right Femoral artery Sheath Size: 5 Fr Hemostasis Method: Suture Hemostasis Success: Successful Site: Left Femoral vein Sheath Size: 6 Fr Hemostasis Method: Suture Hemostasis Success: Unsuccessful Procedure Medications Start: 8:53 AM Stop: 8:53 AM Medication: Fentanyl Amount: 50 mcg Route: I.V. Start: 9:00 AM Stop: 9:00 AM Medication: Versed Amount: 1 mg Route: I.V. Start: 9:01 AM Stop: 9:01 AM Medication: Zofran (ondansetron) Amount: 4 mg Route: I.V. Start: 9:21 AM Stop: 9: AM Medication: Versed Amount: 1 mg Route: I.V. Start: 9:29 AM Stop: 9:29 AM Medication: Fentanyl Amount: 25 mcg Route: I.V. Start: 9:31 AM Stop: 9:31 AM Medication: Heparin Amount: 1500 units Route: I.V. Start: 10:05 AM Stop: 10:05 AM Medication: Hydralazine Amount: 10 mg Route: I.V. I, the attending physician, have reviewed and verified all procedure medications. Yes, all medications given per verbal order History/Risk Factors Hypertension: Yes Dyslipidemia: Yes Peripheral Arterial Disease (PAD): No Myocardial Infarction (VT): No Obesity: No Renal Disease: Yes Tobacco Use: Current/Recent(w/in 1 year) Dialysis: Current Prior Interventions PCI: No CABG: No Valve Surgery: No Report Signatures Finalized by Dr Bertin Tierney MD [facility] on 12/18/2022 11:44 AM
--- NOTE | 2022-12-18 08:11 | P.PN_ITS ---
Subjective Subjective: no new compliaints Medications: Reviewed: Yes Vitals/I&O/Wt Last Vital Signs Temp 98.5 F 12/18/22 07:55 Pulse 78 12/18/22 07:55 Resp 18 12/18/22 04:00 BP 154/75 12/18/22 07:55 Pulse Ox 96 12/18/22 07:55 O2 Del Method Room Air 12/18/22 07:55 O2 Flow Rate 7 12/17/22 13:37 12/17/22 12/18/22 12/18/22 22:59 06:59 14:59 Intake Total 720 / 838 650 / 1488 Output Total 400 / 400 Balance 320 / 438 650 / 1088 Weight last 48 hrs Weight 97.1 kg Physical Exam Narrative: awake , alert wheezing jenae per report No edema Data 12/18/22 06:19 12/18/22 06:19 A&P Assessment and plan (1) ESRD on hemodialysis: Plan 1. End-stage renal disease: On MWF schedule as outpatient, HD today after [facility] 2. Hyperkalemia: HD as above and should be on low K diet 3. Anemia:, Complaints of hematochezia, GI work-up as outpatient, ordered [place] 4. History of CHF now with pulmonary edema, HD today and ultrafiltration aggressively as tolerated 5. Acute on chronic respiratory failure, multifactorial 6. Atrial fibrillation: Management per primary team 7. History of aortic valve replacement with tissue graft for history of endocarditis in the past 8. Moderate to severe MR , Patient evaluated using audiovisual cart. Time spent 45 minutes Attestations Medical Necessity Statement*: per medicine team Coding Level of Care Code Acute Code for Chg Fwd Diagnoses ESRD on hemodialysis N18.6; Z99.2
--- NOTE | 2022-12-18 08:30 | P.PN_ITS ---
Subjective Subjective: Patient seems to be doing okay. He had the blood transfusion yesterday. No fever or chills. No cough. The hemoglobin today is 8.5. No evidence of any active bleed. Medications: Medication Review Details: Current Medications Acetaminophen (Acetaminophen 325 Mg Tablet) 650 mg PO Q6H PRN PRN Reason: Mild/Mod Pain Or Temp >/= 101 Albuterol/Ipratropium (Ipratropium-Albuterol 3 Ml Neb) 3 ml INHALATION Q4H.RESP IRATORY [facility] Last Admin: 12/18/22 03:25 Dose: 3 ml Amiodarone HCl (Amiodarone 200 Mg Tablet) 100 mg PO DAILY [facility] Last Admin: 12/17/22 09:29 Dose: 100 mg Aspirin (Aspirin 81 Mg Chew Tablet) 81 mg PO DAILY [facility] Last Admin: 12/17/22 09:28 Dose: 81 mg Atorvastatin Calcium (Atorvastatin 40 Mg Tablet) 40 mg PO BEDTIME [facility] Last Admin: 12/17/22 20:34 Dose: 40 mg Budesonide (Budesonide 0.5 Mg/2 Ml Neb) 0.5 mg INHALATION BID.RESPIRATORY [facility] Last Admin: 12/17/22 21:02 Dose: 0.5 mg Bumetanide (Bumetanide 1 Mg Tablet) 1 mg PO BID [facility] Last Admin: 12/17/22 17:49 Dose: 1 mg Cyanocobalamin (Cyanocobalamin 1,000 Mcg Tablet) 1,000 mcg PO DAILY [facility] Last Admin: 12/17/22 09:29 Dose: 1,000 mcg Dextrose (Dextrose 50% Syringe 50 Ml) 50 ml IVP PRN PRN; Protocol PRN Reason: hypoglycemia protocol Dextrose (Dextrose 50% Syringe 50 Ml) 25 ml IVP ONCE PRN; Protocol PRN Reason: hypoglycemia protocol Doxycycline Monohydrate (Doxycycline 100 Mg Tablet) 100 mg PO BID [facility]; Protocol Last Admin: 12/17/22 17:49 Dose: 100 mg Epoetin Tyrel (Epoetin Tyrel 1000 Unit/0.05 Ml (Esrd)) 20,000 unit SUBCUT NOW ONE Stop: 12/18/22 09:01 Escitalopram Oxalate (Escitalopram 10 Mg Tablet) 10 mg PO DAILY [facility] Last Admin: 12/17/22 09:28 Dose: 10 mg Glucagon (Glucagon 1 Mg/Ml Inj 1 Ml) 1 mg IM ONCE PRN; Protocol PRN Reason: Adult Acute Hypoglycemia Prot. Heparin Sodium (Porcine) (Heparin, Porcine 1,000 Unit/Ml Inj 10 Ml) 10,000 unit INTRACATH PRN PRN; Protocol PRN Reason: DIALYSIS USE ONLY Last Admin: 12/14/22 09:58 Dose: 10,000 unit Heparin Sodium (Porcine) (Heparin, Porcine 1,000 Unit/Ml Inj 10 Ml) 1,000 unit IV PRN PRN; Protocol PRN Reason: DIALYSIS USE ONLY Last Admin: 12/14/22 09:57 Dose: 1,000 unit Hydralazine HCl (Hydralazine 50 Mg Tablet) 50 mg PO TID [facility] Last Admin: 12/17/22 20:34 Dose: 50 mg Hydralazine HCl (Hydralazine 20 Mg/Ml Inj 1 Ml) 10 mg IVP Q6H PRN PRN Reason: HYPERTENSION Last Admin: 12/18/22 01:52 Dose: 10 mg Ceftriaxone Sodium 1,000 mg/ (Sodium Chloride) 50 mls @ 100 mls/hr IV Q24H [facility]; Protocol Last Infusion: 12/17/22 10:57 Dose: Infused Dextrose (D5w) 500 mls @ 100 mls/hr IV ONCE PRN; Protocol PRN Reason: Adult Acute Hypoglycemia Prot Albumin Human (Albumin) 12.5 gm in 50 mls @ 60 mls/hr IV PRN PRN PRN Reason: Hypotension and/or symptomatic Sodium Chloride (Sodium Chloride 0.9%) 1,000 mls @ 0 mls/hr IV .Q0M PRN PRN Reason: hypotension or symptomatic Sodium Chloride (Sodium Chloride 0.9%) 1,000 mls @ 30 mls/hr IV .Q24H [facility] Last Admin: 12/18/22 01:47 Dose: Not Given Sodium Chloride (Sodium Chloride 0.9%) 1,000 mls @ 30 mls/hr IV .Q24H [facility] Stop: 12/18/22 12:29 Last Admin: 12/17/22 17:43 Dose: Not Given Sodium Chloride (Sodium Chloride 0.9%) 1,000 mls @ 50 mls/hr IV .Q20H ONE Stop: 12/19/22 04:24 Insulin Human Lispro (Insulin Lispro 100 Unit/1 Ml) 0 unit SUBCUT WM&BEDTIME [facility]; Protocol Last Admin: 12/17/22 21:01 Dose: 12 unit Lidocaine HCl (Lidocaine 2% Viscous 15 Ml Udc) 1 ml TOPICAL PRN PRN PRN Reason: Anesthetic prior to IV start Lidocaine HCl (Lidocaine 1% Inj 20 Ml) 0.1 ml INTRADERMA PRN PRN PRN Reason: anesthetic prior to IV start Stop: 12/18/22 12:22 Metoprolol Succinate (Metoprolol Succinate Er (24 Hr) 50 Mg Tablet) 50 mg PO BID [facility] Last Admin: 12/17/22 17:49 Dose: 50 mg Midazolam HCl (Midazolam 1 Mg/Ml Inj 2 Ml) 2 mg IVP Q5M PRN PRN Reason: Preop Anxiety Morphine Sulfate (Morphine 4 Mg/Ml Sdv 1 Ml) 0 mg IVP Q5M PRN PRN Reason: Breakthrough Pain PACU PhaseII Multivitamins (W-Pmvvthj-Sjilwvu C Tablet) 1 each PO BEDTIME [facility] Last Admin: 12/17/22 20:33 Dose: 1 each Nicotine (Nicotine 14 Mg Patch) 1 patch TRANSDERMA DAILY [facility] Last Admin: 12/17/22 09:31 Dose: 1 patch Ondansetron HCl (Ondansetron 2 Mg/Ml Sdv 2 Ml) 4 mg IVP Q8H PRN PRN Reason: vomiting, or N/V if npo Ondansetron HCl (Ondansetron 2 Mg/Ml Sdv 2 Ml) 4 mg IVP Q15M PRN PRN Reason: Nausea/Vomiting PACU PHASE II Pantoprazole Sodium (Pantoprazole 40 Mg Sdv) 40 mg IVP Q12H [facility] Last Admin: 12/17/22 20:33 Dose: 40 mg Polyethylene Glycol (Polyethylene Glycol 3350 Pkt 17 Gm) 17 gm PO DAILY [facility] Last Admin: 12/17/22 09:30 Dose: 17 gm Prednisone (Prednisone 20 Mg Tablet) 40 mg PO DAILY [facility] Last Admin: 12/17/22 09:28 Dose: 40 mg Ropinirole HCl (Ropinirole 1 Mg Tablet) 1 mg PO BEDTIME [facility] Last Admin: 12/17/22 20:34 Dose: 1 mg Ropinirole HCl (Ropinirole 1 Mg Tablet) 1 mg PO ONCE [facility] Last Admin: 12/17/22 01:59 Dose: 1 mg Sodium Chloride (Sodium Chloride 0.9% 100 Ml Bag) 50 ml IV PRN PRN PRN Reason: Blood transfusion prime and flush Stop: 12/18/22 17:55 Sucralfate (Sucralfate 1 Gm Tablet) 1 gm PO Q12H [facility] Last Admin: 12/17/22 20:33 Dose: 1 gm Vitals/I&O/Wt Last Vital Signs Temp 98.5 F 12/18/22 07:55 Pulse 78 12/18/22 07:55 Resp 18 12/18/22 04:00 BP 154/75 12/18/22 07:55 Pulse Ox 96 12/18/22 07:55 O2 Del Method Room Air 12/18/22 07:55 O2 Flow Rate 7 12/17/22 13:37 12/17/22 12/18/22 12/18/22 22:59 06:59 14:59 Intake Total 720 / 838 650 / 1488 Output Total 400 / 400 Balance 320 / 438 650 / 1088 Weight last 48 hrs Weight 214 lb 1.102 oz Physical Exam Narrative: GENERAL: The patient is alert and oriented times three. Not in any acute distress. HEENT: Moderate pallor. No icterus or lymphadenopathy.Oral cavity: There are no mucous membrane lesions. NECK: Trachea appears to be central. No masses noted. No JVD or thyromegaly appreciated. RESPIRATORY: Chest is symmetrical. No intercostals muscle retraction or any accessory muscle activation. There is no chest wall tenderness. Breath sounds are heard bilaterally. No rales or rhonchi heard. No evidence of any consolidation. BREASTS: Deferred. HEART: The heart sounds are normal. No S3 or S4. Pansystolic murmur in the lower sternal border. No diastolic murmurs. No pericardial rub ABDOMEN: No vessel pulsations or distention. No tenderness. No organomegaly appreciated. Bowel sounds are normally heard. : Deferred. RECTAL: Deferred. LYMPHATIC: No lymphadenopathy noted in the neck. EXTREMITIES: No edema or cyanosis. No clubbing. MUSCULOSKELETAL: No acute joint deformities or swelling SKIN: There are no significant rashes or ecchymosis NEUROPSYCHIATRIC: The patient is alert and oriented x3. Appears to be in a good mood. No tremors or rigidity noted. Data 12/18/22 06:19 12/18/22 06:19 Other Labs: Laboratory Last Values WBC 12.45 10^3/uL (3.29-11.43) H 12/18/22 06:19 RBC 2.62 10^6/uL (3.85-5.65) L 12/18/22 06:19 Hgb 8.50 g/dL (11.27-16.99) L 12/18/22 06:19 Hct 26.5 % (37-53) L 12/18/22 06:19 MCV 101.1 fl (82-101) H 12/18/22 06:19 MCH 32.4 pg (27-33) 12/18/22 06:19 MCHC 32.1 g/dL (30-55) 12/18/22 06:19 RDW 21.0 % (12.1-15.1) H 12/18/22 06:19 Plt Count 138 10^3/cmm (157-399) L 12/18/22 06:19 MPV 9.6 fL (7.4-10.4) 12/18/22 06:19 Neut % (Auto) 86.3 % 12/18/22 06:19 Lymph % (Auto) 6.1 % 12/18/22 06:19 [place] % (Auto) 6.4 % 12/18/22 06:19 Eos % (Auto) 0.0 % 12/18/22 06:19 Baso % (Auto) 0.1 % 12/18/22 06:19 Neut # (Auto) 10.74 10^3/uL (1.8-7.7) H 12/18/22 06:19 Lymph # (Auto) 0.8 10^3/uL (0.8-4.8) 12/18/22 06:19 [place] # (Auto) 0.8 10^3/uL (0.2-0.9) 12/18/22 06:19 Eos # (Auto) 0.0 10^3/uL (0.0-0.8) 12/18/22 06:19 Baso # (Auto) 0.0 10^3/uL (0.0-0.1) 12/18/22 06:19 Nucleated RBC % (auto) 0.8 % 12/18/22 06:19 Nucleated RBCs # 0.1 /100WBC 12/18/22 06:19 PT 14.50 SECONDS (12.1-14.9) 12/14/22 03:35 INR 1.09 (0.8-1.2) 12/14/22 03:35 APTT 54.9 SECONDS (23.9-36.7) H 12/15/22 14:32 D-Dimer 1.18 ug/mLFEU (0-0.59) H 12/14/22 03:35 Specimen Type Arterial 12/14/22 05:51 Sample Site Radial, left 12/14/22 05:51 ABG pH 7.42 (7.35-7.45) 12/14/22 05:51 ABG pCO2 41.6 mmHg (35-45) 12/14/22 05:51 ABG pO2 61.5 mmHg (80.0-100.0) L 12/14/22 05:51 ABG HCO3 27.1 mmol/L (22-26) H 12/14/22 05:51 ABG Base Excess 2.4 mmol/L (-2.0-2.0) H 12/14/22 05:51 Kash Test Pos 12/14/22 05:51 Hematocrit 22.0 % (42-52) L 12/14/22 05:51 O2 Delivery Device Room air 12/14/22 05:51 Cemetery Manager ID [email or web address] 12/14/22 05:51 Sodium 135 mmol/L (136-145) L 12/18/22 06:19 Potassium 5.0 mmol/L (3.5-5.1) 12/18/22 06:19 Chloride 96 mmol/L (98-107) L 12/18/22 06:19 Carbon Dioxide 23 mmol/L (22-29) 12/18/22 06:19 Anion Gap 21.0 (5-19) H 12/18/22 06:19 BUN 68 mg/dL (8-23) H 12/18/22 06:19 Creatinine 6.2 mg/dL (0.7-1.2) H* 12/18/22 06:19 GFR Calculation 9.3 mL/min (90-130) L 12/18/22 06:19 Glucose 191 mg/dL (65-115) H 12/18/22 06:19 POC Glucose 198 mg/dL (70-110) H 12/18/22 06:22 Estimat Average Glucose 91 12/14/22 03:35 Hemoglobin A1c 4.8 % (4.0-6.0) 12/14/22 03:35 Calculated Osmolality 305 mOsm/kg (285-295) H 12/18/22 06:19 Lactic Acid 2.8 mmol/L (0.5-2.2) H 12/14/22 04:14 Lactic Acid (Sepsis) 1.9 mmol/L (0.5-2.2) 12/14/22 07:50 Calcium 9.0 mg/dL (8.5-10.5) 12/18/22 06:19 Phosphorus 4.6 mg/dL (2.5-4.5) H 12/17/22 04:32 Magnesium 2.0 mg/dL (1.7-2.3) 12/17/22 04:32 Iron Cancelled 12/14/22 05:33 TIBC 197 mcg/dl 12/14/22 04:26 % Saturation 60.4 % (20-50) H 12/14/22 04:26 Unsat Iron Binding 78 ug/dL (112-347) L 12/14/22 04:26 Ferritin 88847 ng/mL (30-400) H 12/14/22 04:26 Total Bilirubin 0.4 mg/dL (0.15-1.2) 12/17/22 04:32 AST 38 U/L (0-40) 12/17/22 04:32 ALT 88 U/L (0-41) H 12/17/22 04:32 Alkaline Phosphatase 108 U/L (40-130) 12/17/22 04:32 Troponin T Baseline 208 ng/L (0-15) H* 12/14/22 03:35 Troponin T 120 Minute 212.5 ng/L (0-15) H 12/14/22 05:33 Delta Troponin T 4.5 ABS# (0-10) 12/14/22 05:33 Troponin T Hi Sens 6Hr 238.2 ng/L (0-15) H 12/14/22 09:28 Troponin T Hi Sens 6Hr Delta 30.2 ng/L (0-12) H* 12/14/22 09:28 C-Reactive Protein 18.4 mg/L (0.0-4.9) H 12/14/22 04:26 NT-Pro-B Natriuret Pep 95734 pg/mL (0-125) H 12/14/22 04:26 Total Protein 5.5 g/dL (6.6-8.7) L 12/17/22 04:32 Albumin 3.7 g/dL (3.5-5.2) 12/17/22 04:32 Globulin 1.8 g/dL (1.3-4.6) 12/17/22 04:32 Procalcitonin 0.92 ng/mL (0-0.5) H 12/14/22 04:26 TSH 3.11 uIU/mL (0.27-4.20) 12/14/22 04:26 Urine Color Yellow (Yellow) 12/14/22 04:45 Urine Appearance Hazy (CLEAR) A 12/14/22 04:45 Urine pH 9 (5-7) H 12/14/22 04:45 Ur Specific [place] 1.010 (1.005-1.030) 12/14/22 04:45 Urine Protein 3+ (Negative) H 12/14/22 04:45 Urine Glucose (UA) 2+ (Normal) H 12/14/22 04:45 Urine Ketones Negative (Negative) 12/14/22 04:45 Urine Blood 2+ (Negative) H 12/14/22 04:45 Urine Nitrate Negative (Negative) 12/14/22 04:45 Urine Bilirubin Neg (Negative) 12/14/22 04:45 Prot Sulfosalicylic Acd Negative (Negative) 12/14/22 04:45 Urine Urobilinogen Neg mg/dL (Negative) 12/14/22 04:45 Ur Leukocyte Esterase 1+ (Negative) H 12/14/22 04:45 Urine RBC 0-4 /hpf (0-2) H 12/14/22 04:45 Urine WBC 25-40 /hpf (0-5) H 12/14/22 04:45 Ur Squamous Epith Cells 5-10 /hpf (0-5) H 12/14/22 04:45 Amorphous Sediment Trace /hpf 12/14/22 04:45 Urine Bacteria Trace /hpf (NONE) 12/14/22 04:45 Urine Opiates Screen Positive ng/mL (Negative) H 12/14/22 04:45 Ur Barbiturates Screen Negative ng/mL (Negative) 12/14/22 04:45 Ur Phencyclidine Scrn Negative ng/mL (Negative) 12/14/22 04:45 Ur Amphetamines Screen Negative ng/mL (Negative) 12/14/22 04:45 U Benzodiazepines Scrn Negative ng/mL (Negative) 12/14/22 04:45 Urine Cocaine Screen Negative ng/mL (Negative) 12/14/22 04:45 U Marijuana (THC) Screen Negative ng/mL (Negative) 12/14/22 04:45 Ethyl Alcohol < 10 mg/dL (0-10) 12/14/22 04:26 Hepatitis A IgM Ab Non-reactive (Nonreactive) 12/14/22 04:26 Hep Bs Antigen Non-reactive (Nonreactive) 12/14/22 04:26 Hep Bs Antibody 31.7 (11.5-1000) 12/14/22 04:26 Hep B Core IgM Ab Non-reactive (Nonreactive) 12/14/22 04:26 Hepatitis C Antibody Non-reactive (Nonreactive) 12/14/22 04:26 HIV 1&2 Ab & HIV 1 Ag Non-reactive (Non-Reactiv) 12/14/22 04:26 HIV 1&2 Antibody Non-reactive (Non-Reactiv) 12/14/22 04:26 SARS-CoV-2 Ag (Rapid) negative (Negative) 12/14/22 04:53 Blood Type O Positive 12/17/22 21:45 Rho(D) Type Positive 12/17/22 21:45 Antibody Screen Negative 12/17/22 21:45 Crossmatch See Detail 12/17/22 21:45 A&P Assessment and plan (1) Elevated troponin: Most likely is related to type II myocardial infarction. Cannot exclude a type I myocardial infarction. He did not have any significant obstructive coronary disease by previous angiogram. However in view of his recurrent decompensated heart failure and the significantly elevated troponin T, it may be appropriate to do an angiogram to further evaluate his coronary status. (2) Acute on chronic diastolic (congestive) heart failure: Clinically compensated. Patient may benefit from a right and left heart catheterization and coronary angiogram to further evaluate his coronary status as well as the hemodynamics (3) Moderate to severe mitral regurgitation: The ALEXANDER was attempted. Apparently because of technical difficulties, the test had to be aborted. May consider doing a left heart catheterization and LV angiogram, to evaluate the mitral regurgitation. (4) XI (obstructive sleep apnea): May continue on the current treatment. (5) H/O aortic valve replacement with tissue graft: The valve function appears to be appropriate. 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 (7) ESRD (end stage renal disease): The patient is scheduled for hemodialysis this afternoon. We may consider doing the dialysis after the cardiac catheterization. We will continue on the current measures for the time being (8) Anemia: The hemoglobin is 8.5 today. Patient has no evidence of any active bleeding. May continue on the current measures. Plan In view of the patient's recurrent decompensated heart failure, elevated troponin T, valvular heart disease, in order to further evaluate his coronary status as well as hemodynamics, a right and left heart catheterization with a coronary angiogram would be appropriate. This was discussed with the patient. The risk of bleeding, hematoma, vascular injury, myocardial infarction, myocardial perforation, malignant cardiac arrhythmias ,CVA, acute heart failure ,need for emergency dialysis and other concomitant complications were explained in detail. Patient understood this well and consented to proceed. We will go ahead and schedule the angiogram this morning. I also will be discussing with the counselor marriage and family about the dialysis. 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
--- NOTE | 2022-12-18 08:52 | W.PM.OPSUD ---
Surgery/Procedure H&P Update DATE OF PROCEDURE: December 18, 2022 DATE H&P PERFORMED: 12/14/22 H&P UPDATE INFORMATION: I have reviewed H&P completed within last 30 days, I have examined patient prior to procedure and Changes to prior documentation as noted here ( the lungs are clear. No rales or rhonchi) PREOP DIAGNOSIS: AVR/ MItral regurgitation/recurrent CHF/ elevated troponin T PRIMARY INDICATION FOR PROCEDURE: Recurrent decompensated heart failure, valvular heart disease, elevated troponin T PLANNED PROCEDURE: Operation Date: 12/17/22 13:00 Proposed Procedures p ALEXANDER(Not Applicable) - Bertin Tierney MD PATIENT REASSESSED PRIOR TO SEDATION, WITH NO CHANGE NOTED: Yes PHYSICAL EXAM: alert, oriented x 3, clear to auscultation bilaterally and regular rate & rhythm AIRWAY EVAL/ANESTHESIA PLAN: normal airway, see other exam findings, ASA III, Local Anesthesia, Risks, benefits & alternatives of sedation and/or procedure discussed and Patient agrees to continue as planned
--- NOTE | 2022-12-18 09:50 | PC.NURSE ---
Unable to give pt his po medications this morning as the pt was NPO and taken to the [facility] for an angiogram. Pt is to have HD following procedure. Will attempt to give him his medications ABUNDIO.
[2022-12-18 10:09] LABS: Alveolar-Arterial Oxygen Gradi 4.9 mmHg (5-10); Blood Gas Sample Site AO; Blood Gas Sample Type Arterial; Carboxyhemoglobin 2.7 %THgb (0.4-20.1); Methemoglobin 1.2 % (0.4-1.5); Total Hemoglobin 7.8 g/dL (14-18)
[2022-12-18 10:11] LABS: Alveolar-Arterial Oxygen Gradi 7.9 mmHg (5-10); Blood Gas Operator Identificat MONRO; Blood Gas Sample Site RA; Blood Gas Sample Type Arterial; Carboxyhemoglobin 2.4 %THgb (0.4-20.1); HGB O2 Sat 50.4 % (95-100); Methemoglobin 0.8 % (0.4-1.5); Total Hemoglobin 7.5 g/dL (14-18)
[2022-12-18 10:12] LABS: Alveolar-Arterial Oxygen Gradi 8.1 mmHg (5-10); Arterial Blood Gas Hematocrit 27.5 % (42-52); Blood Gas Sample Type Arterial; Carboxyhemoglobin 2.2 %THgb (0.4-20.1); HGB O2 Sat 46.3 % (95-100); Methemoglobin 0.7 % (0.4-1.5)
[2022-12-18 10:13] LABS: Blood Gas Operator Identificat MONRO; Blood Gas Sample Site RV
[2022-12-18 10:14] LABS: Alveolar-Arterial Oxygen Gradi 8.1 mmHg (5-10); Arterial Blood Gas Hematocrit 23.5 % (42-52); Blood Gas Operator Identificat MONRO; Blood Gas Sample Site PA; Blood Gas Sample Type Arterial; Carboxyhemoglobin 2.3 %THgb (0.4-20.1); HGB O2 Sat 47.4 % (95-100); Methemoglobin 0.8 % (0.4-1.5); Total Hemoglobin 7.7 g/dL (14-18)
--- NOTE | 2022-12-18 11:25 | PC.HD ---
Patient arrived to dialysis room complaining of 8/10 back pain and requested HOB to be raised. Contacted primary RN for instructions, as patient had just returned from lab technician. Per primary RN, HOB could only be elevated approximately 15 degrees, and it was currently at this position. This RN explained to the patient that the bed could not be raised any further. Patient voiced understanding. Prior to dialysis treatment initiation, patient had a coughing episode and stated he thought he felt something pull down there. Bilateral groin area was checked and no bleeding was noted.
--- NOTE | 2022-12-18 11:50 | PC.NURSE ---
Pulled venous and arterial sheaths s/p LHC in both Right and Left groins with the assistance of Stephania Ruelas RN while the pt was having his HD treatment. Procedure went well without incident. Went over things that both the pt and the HD RN needed to be aware of and to watch for during the rest of his HD treatment. Informed pt that he would not be able to sit on edge of bed until 18:00 this evening.
[2022-12-18] MEDS: epoetin alfa 1000 Unit/0.05 mL (ESRD) 20000 UNIT SUBCUT (14:27)
--- NOTE | 2022-12-18 15:00 | PC.NURSE ---
Pqt finally back to his room following angigram and HD and went to give him his A.M. medications and was unable to pull most of the medications from the pyxis as I guess it was too late to pull and some of the BID meds were close to getting the afternoon dose time.
[2022-12-18] MEDS: hyDRALAzine 50 mg Tablet PO ×2 (15:12→21:00)
[2022-12-18] MEDS: sucralfate 1 gm Tablet PO ×2 (15:12→21:00)
[2022-12-18] MEDS: aspirin 81 mg Chew Tablet PO (15:12)
[2022-12-18] MEDS: acetaminophen 325 mg Tablet 650 MG PO (15:12)
[2022-12-18] MEDS: pantoprazole 40 mg SDV IVP ×2 (15:13→21:01)
--- NOTE | 2022-12-18 17:12 | P.PN_ITS ---
Subjective Subjective: Status post angiogram earlier today. No obstructive lesions found. Please see cardiology notes for details. Hemoglobin less than 9, ordered for 1 unit PRBC to keep target hemoglobin at 9. Undergoing hemodialysis today. Medications: Reviewed: Yes Medication Review Details: Current Medications Acetaminophen (Acetaminophen 325 Mg Tablet) 650 mg PO Q6H PRN PRN Reason: Mild/Mod Pain Or Temp >/= 101 Albuterol/Ipratropium (Ipratropium-Albuterol 3 Ml Neb) 3 ml INHALATION Q4H.RESPIRATORY KENNEDY Last Admin: 12/18/22 03:25 Dose: 3 ml Amiodarone HCl (Amiodarone 200 Mg Tablet) 100 mg PO DAILY KENNEDY Last Admin: 12/17/22 09:29 Dose: 100 mg Aspirin (Aspirin 81 Mg Chew Tablet) 81 mg PO DAILY KENNEDY Last Admin: 12/17/22 09:28 Dose: 81 mg Atorvastatin Calcium (Atorvastatin 40 Mg Tablet) 40 mg PO BEDTIME KENNEDY Last Admin: 12/17/22 20:34 Dose: 40 mg Budesonide (Budesonide 0.5 Mg/2 Ml Neb) 0.5 mg INHALATION BID.RESPIRATORY KENNEDY Last Admin: 12/17/22 21:02 Dose: 0.5 mg Bumetanide (Bumetanide 1 Mg Tablet) 1 mg PO BID KENNEDY Last Admin: 12/17/22 17:49 Dose: 1 mg Cyanocobalamin (Cyanocobalamin 1,000 Mcg Tablet) 1,000 mcg PO DAILY KENNEDY Last Admin: 12/17/22 09:29 Dose: 1,000 mcg Dextrose (Dextrose 50% Syringe 50 Ml) 50 ml IVP PRN PRN; Protocol PRN Reason: hypoglycemia protocol Dextrose (Dextrose 50% Syringe 50 Ml) 25 ml IVP ONCE PRN; Protocol PRN Reason: hypoglycemia protocol Doxycycline Monohydrate (Doxycycline 100 Mg Tablet) 100 mg PO BID KENNEDY; Protocol Last Admin: 12/17/22 17:49 Dose: 100 mg Epoetin Tyrel (Epoetin Tyrel 1000 Unit/0.05 Ml (Esrd)) 20,000 unit SUBCUT NOW ONE Stop: 12/18/22 09:01 Escitalopram Oxalate (Escitalopram 10 Mg Tablet) 10 mg PO DAILY KENNEDY Last Admin: 12/17/22 09:28 Dose: 10 mg Glucagon (Glucagon 1 Mg/Ml Inj 1 Ml) 1 mg IM ONCE PRN; Protocol PRN Reason: Adult Acute Hypoglycemia Prot. Heparin Sodium (Porcine) (Heparin, Porcine 1,000 Unit/Ml Inj 10 Ml) 10,000 unit INTRACATH PRN PRN; Protocol PRN Reason: DIALYSIS USE ONLY Last Admin: 12/14/22 09:58 Dose: 10,000 unit Heparin Sodium (Porcine) (Heparin, Porcine 1,000 Unit/Ml Inj 10 Ml) 1,000 unit IV PRN PRN; Protocol PRN Reason: DIALYSIS USE ONLY Last Admin: 12/14/22 09:57 Dose: 1,000 unit Hydralazine HCl (Hydralazine 50 Mg Tablet) 50 mg PO TID KENNEDY Last Admin: 12/17/22 20:34 Dose: 50 mg Hydralazine HCl (Hydralazine 20 Mg/Ml Inj 1 Ml) 10 mg IVP Q6H PRN PRN Reason: HYPERTENSION Last Admin: 12/18/22 01:52 Dose: 10 mg Ceftriaxone Sodium 1,000 mg/ (Sodium Chloride) 50 mls @ 100 mls/hr IV Q24H KENNEDY; Protocol Last Infusion: 12/17/22 10:57 Dose: Infused Dextrose (D5w) 500 mls @ 100 mls/hr IV ONCE PRN; Protocol PRN Reason: Adult Acute Hypoglycemia Prot Albumin Human (Albumin) 12.5 gm in 50 mls @ 60 mls/hr IV PRN PRN PRN Reason: Hypotension and/or symptomatic Sodium Chloride (Sodium Chloride 0.9%) 1,000 mls @ 0 mls/hr IV .Q0M PRN PRN Reason: hypotension or symptomatic Sodium Chloride (Sodium Chloride 0.9%) 1,000 mls @ 30 mls/hr IV .Q24H KENNEDY Last Admin: 12/18/22 01:47 Dose: Not Given Sodium Chloride (Sodium Chloride 0.9%) 1,000 mls @ 30 mls/hr IV .Q24H KENNEDY Stop: 12/18/22 12:29 Last Admin: 12/17/22 17:43 Dose: Not Given Sodium Chloride (Sodium Chloride 0.9%) 1,000 mls @ 50 mls/hr IV .Q20H ONE Stop: 12/19/22 04:24 Insulin Human Lispro (Insulin Lispro 100 Unit/1 Ml) 0 unit SUBCUT WM&BEDTIME KENNEDY; Protocol Last Admin: 12/17/22 21:01 Dose: 12 unit Lidocaine HCl (Lidocaine 2% Viscous 15 Ml Udc) 1 ml TOPICAL PRN PRN PRN Reason: Anesthetic prior to IV start Lidocaine HCl (Lidocaine 1% Inj 20 Ml) 0.1 ml INTRADERMA PRN PRN PRN Reason: anesthetic prior to IV start Stop: 12/18/22 12:22 Metoprolol Succinate (Metoprolol Succinate Er (24 Hr) 50 Mg Tablet) 50 mg PO BID [facility] Last Admin: 12/17/22 17:49 Dose: 50 mg Midazolam HCl (Midazolam 1 Mg/Ml Inj 2 Ml) 2 mg IVP Q5M PRN PRN Reason: Preop Anxiety Morphine Sulfate (Morphine 4 Mg/Ml Sdv 1 Ml) 0 mg IVP Q5M PRN PRN Reason: Breakthrough Pain PACU PhaseII Multivitamins (M-Blztcbk-Npwxtbs C Tablet) 1 each PO BEDTIME [facility] Last Admin: 12/17/22 20:33 Dose: 1 each Nicotine (Nicotine 14 Mg Patch) 1 patch TRANSDERMA DAILY [facility] Last Admin: 12/17/22 09:31 Dose: 1 patch Ondansetron HCl (Ondansetron 2 Mg/Ml Sdv 2 Ml) 4 mg IVP Q8H PRN PRN Reason: vomiting, or N/V if npo Ondansetron HCl (Ondansetron 2 Mg/Ml Sdv 2 Ml) 4 mg IVP Q15M PRN PRN Reason: Nausea/Vomiting PACU PHASE II Pantoprazole Sodium (Pantoprazole 40 Mg Sdv) 40 mg IVP Q12H [facility] Last Admin: 12/17/22 20:33 Dose: 40 mg Polyethylene Glycol (Polyethylene Glycol 3350 Pkt 17 Gm) 17 gm PO DAILY [facility] Last Admin: 12/17/22 09:30 Dose: 17 gm Prednisone (Prednisone 20 Mg Tablet) 40 mg PO DAILY [facility] Last Admin: 12/17/22 09:28 Dose: 40 mg Ropinirole HCl (Ropinirole 1 Mg Tablet) 1 mg PO BEDTIME [facility] Last Admin: 12/17/22 20:34 Dose: 1 mg Ropinirole HCl (Ropinirole 1 Mg Tablet) 1 mg PO ONCE [facility] Last Admin: 12/17/22 01:59 Dose: 1 mg Sodium Chloride (Sodium Chloride 0.9% 100 Ml Bag) 50 ml IV PRN PRN PRN Reason: Blood transfusion prime and flush Stop: 12/18/22 17:55 Sucralfate (Sucralfate 1 Gm Tablet) 1 gm PO Q12H KENNEDY Last Admin: 12/17/22 20:33 Dose: 1 gm Vitals/I&O/Wt Last Vital Signs Temp 98.4 F 12/18/22 16:54 Pulse 77 12/18/22 16:54 Resp 18 12/18/22 16:54 BP 126/55 12/18/22 16:54 Pulse Ox 96 12/18/22 15:21 O2 Del Method Room Air 12/18/22 15:21 O2 Flow Rate 7 12/17/22 13:37 12/18/22 12/18/22 12/18/22 06:59 14:59 22:59 Intake Total 650 / 1488 350 / 350 0 / 350 Output Total 3350 / 3350 Balance 650 / 1088 -3000 / -3000 0 / -3000 Weight last 48 hrs Weight 103.6 kg Physical Exam Narrative: General: No acute distress, AO x3 HEENT: PERRLA, pupils bilaterally equal and reactive, pallors not present Chest: Normal vesicular breath sounds, no added sounds, equal good air entry bilaterally CVS: S1-S2 regular, no murmurs, no tachycardia, no gallops, no rubs Abdomen: Soft, nontender, no organomegaly, bowel sounds present Neuro: No focal deficits, no facial deformity, AO x3, power 5/5 in all limbs Data 12/18/22 06:19 12/18/22 06:19 Micro: Microbiology 12/15/22 00:30 Gram Stain - Final Sputum - Expectorated Sputum Sputum Culture - Final Result MODERATE WHITE BLOOD CELLS MODERATE EPITHELIAL CELLS MODERATE GRAM POSITIVE COCCI IN PAIRS & CHAINS MODERATE GRAM POSITIVE RODS FEW GRAM NEGATIVE RODS [facility] [address] [place], [place] [address] DR. MEGHAN ALFRED, BEHAVIORAL GENETICIST NAME: Richard Huffman LOC: ICU U #: [id number] AGE/SX: 62/M ROOM: ICU01 RE12/14/[address]: Beckie Stafford MD : 1960 BED: 1 DIS: FAX #: STATUS: ADM IN TLOC: Spec #: [id number] Yony: 12/14/22 Status: COMP Req #: [id number] Recd: 12/14/[address]: Nickolas Drake DO Src: Urine CC SpDesc: Ordered: Procedure Result Verified Site Urine Culture Final 12/16/22 Organism 1 Enterococcus faecalis [place] Count 50,000 - 60,000 CFU/ml DAY 2 E faecalis M.I.C. RX --------- ------ * Ampicillin <=2 S * Ciprofloxacin <=1 S * Levofloxacin <=1 S * Linezolid 2 S * Nitrofurantoin <=32 S * Penicillin 2 S Vancomycin 2 S Daptomycin 1 S A&P Assessment and plan (1) Acute hyperkalemia: resolved post HD (2) Moderate to severe mitral regurgitation: (3) XI (obstructive sleep apnea): (4) COPD (chronic obstructive pulmonary disease): (5) Tobacco abuse counseling: (6) ESRD on hemodialysis: (7) Anemia: (8) ESRD (end stage renal disease): (9) Acute exacerbation of congestive heart failure: (10) Hyperlipidemia: Qualifiers: Hyperlipidemia type: mixed hyperlipidemia Qualified Code(s): E78.2 - Mixed hyperlipidemia (11) Hypertension: Qualifiers: Hypertension type: essential hypertension Qualified Code(s): I10 - Essential (primary) hypertension (12) Diabetes: Qualifiers: Diabetes mellitus type: type 2 Diabetes mellitus prison insulin use: with prison use Diabetes mellitus complication status: with diabetic arthropathy Diabetes mellitus complication detail: with other arthropathy Qualified Code(s): E11.618 - Type 2 diabetes mellitus with other diabetic arthropathy; 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 Multifactorial ?COPD exacerbation, ? Systolic and diastolic CHF exacerbation ? Fluid overload - s/p HD on 12/14 with improved respiratory status, receiving hemodialysis again today. Atrial fibrillation detected by EMS, also possible wide-complex tachycardia, currently atrial fibrillation with slow ventricular response ? Continue home amiodarone ? Continue home metoprolol, increase dose to 50mg po BID -He is not on any anticoagulation due to history of hematochezia and also longstanding anemia. ? Patient has moderate to severe mitral valve regurg, crdiology ALEXANDER unable to completed due to inability to pass probe, s/p cardiac cath today Moderate to severe mitral valve regurg ? ALEXANDER unable to be completed COPD exacerbation - improved in this regard , d/c steroids today ? Smoking cessation counseling ? s/p Rocephin and doxycycline ? DuoNeb, budesonide Systolic and diastolic CHF exacerbation, with fluid overload ? Nephrology consulted for dialysis, s/p HD on 12/14 and again today ? Continue p.o. Bumex 1 mg p.o. twice daily Chest pain, with NSTEMI ? Serial EKGs, serial troponins with elevated 6 hr delta - Cardioloy consulted with + delta and ongoing chest pain ; likely to be to be type 2 [place] ? s/p cardiac cath today - please see cardiology notes no obstructive CAD Hyperkalemia ?resolved Anemia, with complaints of hematochezia as outpatient ? As outpatient there is plans on a colonoscopy ? No complaints of hematochezia currently ? 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 Curerently blood cx negative to date UTI: urine cx with Enterococus fecalis , d/c ceftriaxone, change to augmentin po BID Transfer to [facility] Attestations Medical Necessity Statement*: s/p cardiac cath today, HD today, blood transfusion , anticipate discharge in upcoming 24 hrs Coding Level of Care Code Acute Code for Chg Fwd Diagnoses Acute hyperkalemia E87.5 Moderate to severe mitral regurgitation I34.0 XI (obstructive sleep apnea) G47.33 COPD (chronic obstructive pulmonary disease) J44.9 Tobacco abuse counseling Z71.6 ESRD on hemodialysis N18.6; Z99.2 Anemia D64.9 ESRD (end stage renal disease) N18.6 Acute exacerbation of congestive heart failure I50.9 Hyperlipidemia E78.2 Hyperlipidemia type: mixed hyperlipidemia Hypertension I10 Hypertension type: essential hypertension Diabetes E11.618; Z79.4 Diabetes mellitus type: type 2 Diabetes mellitus terminal superintendent insulin use: with terminal superintendent use Diabetes mellitus complication status: with diabetic arthropathy Diabetes mellitus complication detail: with other arthropathy Atrial fibrillation I48.91 COPD exacerbation J44.1 Chest pain R07.9 Acute hypoxic respiratory failure J96.01 NSTEMI (non-ST elevated myocardial infarction) I21.4 Elevated lactic acid level R79.89
[2022-12-18] MEDS: metoprolol succinate ER (24 HR) 50 mg Tablet 75 MG PO (18:00)
[2022-12-18] MEDS: bumetanide 1 mg Tablet PO (18:00)
[2022-12-18] MEDS: doxycycline 100 mg Tablet PO (18:00)
[2022-12-18] MEDS: amoxicillin-clav 500-125 mg Tablet 1 TAB PO (18:00)
[2022-12-18] MEDS: insulin lispro 100 unit/1 mL SUBCUT ×2 (18:01→21:03)
[2022-12-18 18:36] LABS: Glucose Point of Care 245 mg/dL (70-110)
[2022-12-18] MEDS: budesonide 0.5 mg/2 mL Neb INHALATION (20:00)
[2022-12-18 20:54] LABS: Glucose Point of Care 193 mg/dL (70-110)
[2022-12-18] MEDS: atorvastatin 40 mg Tablet PO (21:00)
[2022-12-18] MEDS: b-complex-vitamin c Tablet 1 EACH PO (21:00)
[2022-12-18] MEDS: ropinirole 1 mg Tablet PO (21:01)
[2022-12-19] VITALS (9 sets, daily range): BP systolic 121–159; BP diastolic 52–108; PULSE 70–89; RESP 14–21; TEMP 36.6–37.1; O2SAT 93–98
--- NOTE | 2022-12-19 07:27 | PM.PN ---
Subjective Subjective: no new complaints Vitals/I&O/Wt Last Vital Signs Temp 98.5 F 12/19/22 04:00 Pulse 89 12/19/22 06:00 Resp 15 12/19/22 04:00 BP 157/88 12/19/22 04:00 Pulse Ox 98 12/19/22 05:54 O2 Del Method Room Air 12/19/22 05:54 O2 Flow Rate 7 12/17/22 13:37 FiO2 21 12/19/22 05:54 12/18/22 12/19/22 12/19/22 22:59 06:59 14:59 Intake Total 590 / 940 250 / 1190 Output Total 0 / 3350 0 / 3350 Balance 590 / -2410 250 / -2160 Weight last 48 hrs Weight 103.6 kg Physical Exam Narrative: awake , alert wheezing jenae per report No edema Data 12/18/22 06:19 12/18/22 06:19 Micro: Microbiology 12/15/22 00:30 Gram Stain - Final Sputum - Expectorated Sputum Sputum Culture - Final A&P Assessment and plan (1) ESRD on hemodialysis: Plan 1. End-stage renal disease: On MWF schedule as outpatient, s/p HD yesterday 2. Hyperkalemia: improved 3. Anemia:, Complaints of hematochezia, GI work-up as outpatient, ordered [place] 4. History of CHF now with pulmonary edema, improved 5. Acute on chronic respiratory failure, multifactorial 6. Atrial fibrillation: Management per primary team 7. History of aortic valve replacement with tissue graft for history of endocarditis in the past 8. Moderate to severe MR , Patient evaluated using audiovisual cart. Time spent 20 minutes Attestations Medical Necessity Statement*: per mediicne team Coding Level of Care Code Acute Code for Chg Fwd Diagnoses ESRD on hemodialysis N18.6; Z99.2
[2022-12-19 07:49] LABS: Glucose Point of Care 173 mg/dL (70-110)
[2022-12-19] MEDS: budesonide 0.5 mg/2 mL Neb INHALATION (07:55)
[2022-12-19] MEDS: ipratropium-albuterol 3 mL Neb INHALATION (07:55)
[2022-12-19] MEDS: amoxicillin-clav 500-125 mg Tablet 1 TAB PO (08:20)
[2022-12-19] MEDS: nicotine 14 mg Patch 1 PATCH TRANSDERMA (08:20)
[2022-12-19] MEDS: bumetanide 1 mg Tablet PO (08:21)
[2022-12-19] MEDS: metoprolol succinate ER (24 HR) 50 mg Tablet 75 MG PO (08:21)
[2022-12-19] MEDS: isosorbide mononitrate ER 30 mg Tablet PO (08:21)
[2022-12-19] MEDS: doxycycline 100 mg Tablet PO (08:21)
[2022-12-19] MEDS: hyDRALAzine 50 mg Tablet PO (08:22)
[2022-12-19] MEDS: escitalopram 10 mg Tablet PO (08:22)
[2022-12-19] MEDS: insulin lispro 100 unit/1 mL SUBCUT (08:24)
[2022-12-19] MEDS: amiodarone 200 mg Tablet 100 MG PO (08:25)
[2022-12-19] MEDS: aspirin 81 mg Chew Tablet PO (08:25)
[2022-12-19] MEDS: cyanocobalamin 1,000 mcg Tablet 1000 MCG PO (08:26)
[2022-12-19] MEDS: pantoprazole 40 mg SDV IVP (08:26)
[2022-12-19] MEDS: sucralfate 1 gm Tablet PO (08:38)
--- NOTE | 2022-12-19 09:55 | PM.PN ---
Subjective Subjective: Patient is alert awake denies any chest pain or shortness of breath. His groin is okay with no hematoma or bleeding. Vitals/I&O/Wt Last Vital Signs Temp 97.8 F 12/19/22 08:01 Pulse 71 12/19/22 08:03 Resp 14 12/19/22 08:01 BP 159/77 12/19/22 08:01 Pulse Ox 96 12/19/22 07:55 O2 Del Method Room Air 12/19/22 07:55 O2 Flow Rate 7 12/17/22 13:37 FiO2 21 12/19/22 05:54 12/18/22 12/19/22 12/19/22 22:59 06:59 14:59 Intake Total 590 / 940 250 / 1190 Output Total 0 / 3350 0 / 3350 Balance 590 / -2410 250 / -2160 Weight last 48 hrs Weight 228 lb 6.382 oz Physical Exam Narrative: GENERAL: The patient is alert and oriented times three. Not in any acute distress. HEENT: Moderate pallor. No icterus or lymphadenopathy.Oral cavity: There are no mucous membrane lesions. NECK: Trachea appears to be central. No masses noted. No JVD or thyromegaly appreciated. RESPIRATORY: Chest is symmetrical. No intercostals muscle retraction or any accessory muscle activation. There is no chest wall tenderness. Breath sounds are heard bilaterally. No rales or rhonchi heard. No evidence of any consolidation. BREASTS: Deferred. HEART: The heart sounds are normal. No S3 or S4. Pansystolic murmur in the lower sternal border. No diastolic murmurs. No pericardial rub ABDOMEN: No vessel pulsations or distention. No tenderness. No organomegaly appreciated. Bowel sounds are normally heard. : Deferred. RECTAL: Deferred. LYMPHATIC: No lymphadenopathy noted in the neck. EXTREMITIES: No edema or cyanosis. No clubbing. MUSCULOSKELETAL: No acute joint deformities or swelling SKIN: There are no significant rashes or ecchymosis NEUROPSYCHIATRIC: The patient is alert and oriented x3. Appears to be in a good mood. No tremors or rigidity noted. Data 12/18/22 06:19 12/18/22 06:19 Micro: Microbiology 12/14/22 07:54 Blood Culture - Final Blood NO GROWTH AFTER 5 DAYS 12/14/22 07:50 Blood Culture - Final Blood NO GROWTH AFTER 5 DAYS 12/15/22 00:30 Gram Stain - Final Sputum - Expectorated Sputum Sputum Culture - Final A&P Assessment and plan (1) Acute on chronic diastolic (congestive) heart failure: Currently euvolemic status post dialysis yesterday. Patient also scheduled to have dialysis on Wednesday. No active respiratory symptoms. (2) NSTEMI (non-ST elevated myocardial infarction): Elevated troponin likely due to demand ischemia also in the setting of end-stage renal disease. Status post recent cath yesterday which showed no significant CAD and normal LV function. (3) H/O aortic valve replacement: Status status post bioprosthetic valve. Stable (4) ESRD (end stage renal disease): On dialysis 3 times a week followed by renal (5) Tobacco abuse counseling: Still smoking. Patient states that he is not going to quit. (6) Moderate to severe mitral regurgitation: Patient will be serially followed by echocardiogram and clinically. Currently still have normal LV function. LV gram yesterday showed 2 to 3+ MR. Patient see Dr. Tierney in 1 to 2 weeks sooner if needed Attestations Medical Necessity Statement*: As per primary team. Stable to be discharged from cardiac standpoint. Coding Level of Care Code 48682 Diagnoses Acute on chronic diastolic (congestive) heart failure I50.33 NSTEMI (non-ST elevated myocardial infarction) I21.4 H/O aortic valve replacement Z95.2 ESRD (end stage renal disease) N18.6 Tobacco abuse counseling Z71.6 Moderate to severe mitral regurgitation I34.0
--- NOTE | 2022-12-19 10:59 | P.DS_ITS ---
Discharge Providers Date of Admission: 12/14/22 05:10 Date of Discharge: December 19, 2022 Attending Provider at Admission: Desean Montes MD Attending Provider at Discharge: Beckie Stafford MD Primary Care Provider: Christofer Varghese MD Diagnoses at Discharge Discharge Diagnosis (1) Acute on chronic diastolic (congestive) heart failure: Status: Acute (2) NSTEMI (non-ST elevated myocardial infarction): Status: Acute (3) H/O aortic valve replacement: Status: Acute (4) ESRD (end stage renal disease): Status: Acute (5) Tobacco abuse counseling: Status: Acute (6) Moderate to severe mitral regurgitation: Status: Acute Reason for Visit Reason for Visit: CP Brief History: Richard Huffman is a 62 year old male with a past history of CAD G, history of endocarditis, history of aortic valve replacement with tissue graft, history of atrial fibrillation, hyperlipidemia, hypertension, current smoker, COPD, XI, COPD, diabetes, being evaluated by pulmonary for mesothelioma, recently being evaluated for moderate to severe mitral valve regurg, who presents to [facility] due to chest pain shortness of breath. Hospital course as below: Hospital Course Hospital Course # Acute on chronic hypoxic respiratory failure ? Multifactorial related to COPD exacerbation, Systolic and diastolic CHF exacerbation, Fluid overload - He received diuresis with Bumex and also received multiple sessions of HD with improvement in repiratory status # Atrial fibrillation detected by EMS, also possible wide-complex tachycardia, currently atrial fibrillation with slow ventricular response ? Continue home amiodarone ? Continue home metoprolol, increased dose to 50mg po BID -He is not on any anticoagulation due to history of hematochezia and also longstanding anemia. He has a pending outpatient colonoscopy ? Patient has moderate to severe mitral valve regurg, ALEXANDER unable to completed due to inability to pass probe, s/p cardiac cath today with ventrculogram- please see cardiology notes for details. LV gram yesterday showed 2 to 3+ MR. No obstrcutive CAD on cath # Moderate to severe mitral valve regurg ? ALEXANDER unable to be completed, LV gram as above follow up with cardiology in 1-2 weeks #COPD exacerbation - improved in this regard , d/danyel steroids 12/18 ? Smoking cessation counseling ? s/p Rocephin and doxycycline empiricallyf or possible pneumonia ? DuoNeb, budesonide # Systolic and diastolic CHF exacerbation, with fluid overload ? Nephrology consulted for dialysis, s/p HD on multiple occasions ? Continue p.o. Bumex 1 mg p.o. twice daily # Chest pain, with NSTEMI vs demand ischemia ? Serial EKGs, serial troponins with elevated 6 hr delta - Cardioloy consulted with + delta and ongoing chest pain ; likely to be? to be type 2 OK ? s/p cardiac cath on 12/18- no obstrutive lesions noted. # Hyperkalemia ?resolved with HD # Anemia, with complaints of hematochezia as outpatient ? As outpatient there is plans on a colonoscopy ? No complaints of hematochezia currently ? received prbc transfusion with target HB 9. 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 Curerently blood cx negative to date # UTI: urine cx with Enterococus fecalis On augmentin po BID He is currently euvolemic and much improved at discharge. No c/o chets pain, dyspnea Medications changes : D/c torsemide, increase metoprolol to 75 BID and add imdur 30mg qd. encourage strict compliance with HD schedule Physical Exam Narrative: General: No acute distress, AO x3 HEENT: PERRLA, pupils bilaterally equal and reactive, pallors not present Chest: Normal vesicular breath sounds, no added sounds, equal good air entry bilaterally CVS: S1-S2 regular, no murmurs, no tachycardia, no gallops, no rubs Abdomen: Soft, nontender, no organomegaly, bowel sounds present Neuro: No focal deficits, no facial deformity, AO x3, power 5/5 in all limbs Discharge Data Studies Completed and Pending Completed Studies During Hospitalization Category Date Time Status PROFESSOR OF BIOSTATISTICS request for service Routine Exams 12/18/22 07:53 Completed CXRP [XR chest 1V portable [id number]] Routine Exams 12/14/22 08:32 Completed XR chest 1V portable [id number] Stat Exams 12/14/22 04:01 [place] [id number] Routine Ultrasound 12/14/22 06:20 Completed CV. echo complete* [id number] Routine Ultrasound 12/14/22 06:20 Completed Laboratory Results WBC 12.45 10^3/uL (3.29-11.43) H 12/18/22 06:19 RBC 2.62 10^6/uL (3.85-5.65) L 12/18/22 06:19 Hgb 8.50 g/dL (11.27-16.99) L 12/18/22 06:19 Hct 26.5 % (37-53) L 12/18/22 06:19 MCV 101.1 fl (82-101) H 12/18/22 06:19 MCH 32.4 pg (27-33) 12/18/22 06:19 MCHC 32.1 g/dL (30-55) 12/18/22 06:19 RDW 21.0 % (12.1-15.1) H 12/18/22 06:19 Plt Count 138 10^3/cmm (157-399) L 12/18/22 06:19 MPV 9.6 fL (7.4-10.4) 12/18/22 06:19 Neut % (Auto) 86.3 % 12/18/22 06:19 Lymph % (Auto) 6.1 % 12/18/22 06:19 Dukes % (Auto) 6.4 % 12/18/22 06:19 Eos % (Auto) 0.0 % 12/18/22 06:19 Baso % (Auto) 0.1 % 12/18/22 06:19 Neut # (Auto) 10.74 10^3/uL (1.8-7.7) H 12/18/22 06:19 Lymph # (Auto) 0.8 10^3/uL (0.8-4.8) 12/18/22 06:19 Dukes # (Auto) 0.8 10^3/uL (0.2-0.9) 12/18/22 06:19 Eos # (Auto) 0.0 10^3/uL (0.0-0.8) 12/18/22 06:19 Baso # (Auto) 0.0 10^3/uL (0.0-0.1) 12/18/22 06:19 Nucleated RBC % (auto) 0.8 % 12/18/22 06:19 Nucleated RBCs # 0.1 /100WBC 12/18/22 06:19 PT 14.50 SECONDS (12.1-14.9) 12/14/22 03:35 INR 1.09 (0.8-1.2) 12/14/22 03:35 APTT 54.9 SECONDS (23.9-36.7) H 12/15/22 14:32 D-Dimer 1.18 ug/mLFEU (0-0.59) H 12/14/22 03:35 Specimen Type Arterial 12/18/22 10:02 Sample Site Pa 12/18/22 10:02 ABG pH 7.42 (7.35-7.45) 12/14/22 05:51 ABG pCO2 41.6 mmHg (35-45) 12/14/22 05:51 ABG pO2 61.5 mmHg (80.0-100.0) L 12/14/22 05:51 ABG HCO3 27.1 mmol/L (22-26) H 12/14/22 05:51 ABG Base Excess 2.4 mmol/L (-2.0-2.0) H 12/14/22 05:51 Kash Test N/a 12/18/22 10:02 A-a O2 Gradient 8.1 mmHg (5-10) 12/18/22 10:02 Hematocrit 23.5 % (42-52) L 12/18/22 10:02 Hgb O2 Saturation 47.4 % (95-100) L 12/18/22 10:02 Carboxyhemoglobin 2.3 %THgb (0.4-20.1) 12/18/22 10:02 Methemoglobin 0.8 % (0.4-1.5) 12/18/22 10:02 Total Hemoglobin 7.7 g/dL (14-18) L 12/18/22 10:02 O2 Delivery Device Not Reportable 12/18/22 10:02 FiO2 21.0 % 12/18/22 10:02 Nurse Discharge Planner ID Monro 12/18/22 10:02 Sodium 135 mmol/L (136-145) L 12/18/22 06:19 Potassium 5.0 mmol/L (3.5-5.1) 12/18/22 06:19 Chloride 96 mmol/L (98-107) L 12/18/22 06:19 Carbon Dioxide 23 mmol/L (22-29) 12/18/22 06:19 Anion Gap 21.0 (5-19) H 12/18/22 06:19 BUN 68 mg/dL (8-23) H 12/18/22 06:19 Creatinine 6.2 mg/dL (0.7-1.2) H* 12/18/22 06:19 GFR Calculation 9.3 mL/min (90-130) L 12/18/22 06:19 Glucose 191 mg/dL (65-115) H 12/18/22 06:19 POC Glucose 173 mg/dL (70-110) H 12/19/22 07:33 Estimat Average Glucose 91 12/14/22 03:35 Hemoglobin A1c 4.8 % (4.0-6.0) 12/14/22 03:35 Calculated Osmolality 305 mOsm/kg (285-295) H 12/18/22 06:19 Lactic Acid 2.8 mmol/L (0.5-2.2) H 12/14/22 04:14 Lactic Acid (Sepsis) 1.9 mmol/L (0.5-2.2) 12/14/22 07:50 Calcium 9.0 mg/dL (8.5-10.5) 12/18/22 06:19 Phosphorus 4.6 mg/dL (2.5-4.5) H 12/17/22 04:32 Magnesium 2.0 mg/dL (1.7-2.3) 12/17/22 04:32 Iron Cancelled 12/14/22 05:33 TIBC 197 mcg/dl 12/14/22 04:26 % Saturation 60.4 % (20-50) H 12/14/22 04:26 Unsat Iron Binding 78 ug/dL (112-347) L 12/14/22 04:26 Ferritin 30294 ng/mL (30-400) H 12/14/22 04:26 Total Bilirubin 0.4 mg/dL (0.15-1.2) 12/17/22 04:32 AST 38 U/L (0-40) 12/17/22 04:32 ALT 88 U/L (0-41) H 12/17/22 04:32 Alkaline Phosphatase 108 U/L (40-130) 12/17/22 04:32 Troponin T Baseline 208 ng/L (0-15) H* 12/14/22 03:35 Troponin T 120 Minute 212.5 ng/L (0-15) H 12/14/22 05:33 Delta Troponin T 4.5 ABS# (0-10) 12/14/22 05:33 Troponin T Hi Sens 6Hr 238.2 ng/L (0-15) H 12/14/22 09:28 Troponin T Hi Sens 6Hr Delta 30.2 ng/L (0-12) H* 12/14/22 09:28 C-Reactive Protein 18.4 mg/L (0.0-4.9) H 12/14/22 04:26 NT-Pro-B Natriuret Pep 37273 pg/mL (0-125) H 12/14/22 04:26 Total Protein 5.5 g/dL (6.6-8.7) L 12/17/22 04:32 Albumin 3.7 g/dL (3.5-5.2) 12/17/22 04:32 Globulin 1.8 g/dL (1.3-4.6) 12/17/22 04:32 Procalcitonin 0.92 ng/mL (0-0.5) H 12/14/22 04:26 TSH 3.11 uIU/mL (0.27-4.20) 12/14/22 04:26 Urine Color Yellow (Yellow) 12/14/22 04:45 Urine Appearance Hazy (CLEAR) A 12/14/22 04:45 Urine pH 9 (5-7) H 12/14/22 04:45 Ur Specific Gallagher 1.010 (1.005-1.030) 12/14/22 04:45 Urine Protein 3+ (Negative) H 12/14/22 04:45 Urine Glucose (UA) 2+ (Normal) H 12/14/22 04:45 Urine Ketones Negative (Negative) 12/14/22 04:45 Urine Blood 2+ (Negative) H 12/14/22 04:45 Urine Nitrate Negative (Negative) 12/14/22 04:45 Urine Bilirubin Neg (Negative) 12/14/22 04:45 Prot Sulfosalicylic Acd Negative (Negative) 12/14/22 04:45 Urine Urobilinogen Neg mg/dL (Negative) 12/14/22 04:45 Ur Leukocyte Esterase 1+ (Negative) H 12/14/22 04:45 Urine RBC 0-4 /hpf (0-2) H 12/14/22 04:45 Urine WBC 25-40 /hpf (0-5) H 12/14/22 04:45 Ur Squamous Epith Cells 5-10 /hpf (0-5) H 12/14/22 04:45 Amorphous Sediment Trace /hpf 12/14/22 04:45 Urine Bacteria Trace /hpf (NONE) 12/14/22 04:45 Urine Opiates Screen Positive ng/mL (Negative) H 12/14/22 04:45 Ur Barbiturates Screen Negative ng/mL (Negative) 12/14/22 04:45 Ur Phencyclidine Scrn Negative ng/mL (Negative) 12/14/22 04:45 Ur Amphetamines Screen Negative ng/mL (Negative) 12/14/22 04:45 U Benzodiazepines Scrn Negative ng/mL (Negative) 12/14/22 04:45 Urine Cocaine Screen Negative ng/mL (Negative) 12/14/22 04:45 U Marijuana (THC) Screen Negative ng/mL (Negative) 12/14/22 04:45 Ethyl Alcohol < 10 mg/dL (0-10) 12/14/22 04:26 Hepatitis A IgM Ab Non-reactive (Nonreactive) 12/14/22 04:26 Hep Bs Antigen Non-reactive (Nonreactive) 12/14/22 04:26 Hep Bs Antibody 31.7 (11.5-1000) 12/14/22 04:26 Hep B Core IgM Ab Non-reactive (Nonreactive) 12/14/22 04:26 Hepatitis C Antibody Non-reactive (Nonreactive) 12/14/22 04:26 HIV 1&2 Ab & HIV 1 Ag Non-reactive (Non-Reactiv) 12/14/22 04:26 HIV 1&2 Antibody Non-reactive (Non-Reactiv) 12/14/22 04:26 SARS-CoV-2 Ag (Rapid) negative (Negative) 12/14/22 04:53 Blood Type O Positive 12/17/22 21:45 Rho(D) Type Positive 12/17/22 21:45 Antibody Screen Negative 12/17/22 21:45 Crossmatch See Detail 12/17/22 21:45 Vitals Last Vital Signs Temp 97.8 F 12/19/22 08:01 Pulse 71 12/19/22 08:03 Resp 14 12/19/22 08:01 BP 159/77 12/19/22 08:01 Pulse Ox 96 12/19/22 07:55 O2 Del Method Room Air 12/19/22 07:55 O2 Flow Rate 7 12/17/22 13:37 FiO2 21 12/19/22 05:54 Discharge Plan Discharge Patient Disposition: Home Condition: Stable Prescriptions: New amoxicillin-pot clavulanate 500-125 mg Tablet 1 tab PO BID 5 Days Qty: 10 0RF isosorbide mononitrate 30 mg Tablet Extended Release 24 Hr 30 mg PO DAILY 30 Days Qty: 30 0RF Continued cholecalciferol (vitamin D3) 125 mcg (5,000 unit) capsule 125 mcg PO DAILY bumetanide 2 mg tablet 2 mg PO BID hydralazine 50 mg tablet 50 mg PO TID lisinopril 40 mg tablet 40 mg PO DAILY Qty: 90 3RF amiodarone 100 mg tablet 100 mg PO DAILY Qty: 30 0RF (DME) Diabetic shoes See Rx Instructions .ROUTE .MEDSUPPLY Qty: 1 0RF Rx Instructions: With 3 pairs of inserts to the shoe [place] hydrocodone-acetaminophen 5-325 mg tablet 1 tab PO BID PRN (Reason: Pain) escitalopram oxalate [Lexapro] 10 mg tablet 10 mg PO DAILY Qty: 60 1RF ropinirole 1 mg tablet 1 mg PO DAILY Qty: 90 1RF ipratropium-albuterol 0.5 mg-3 mg(2.5 mg base)/3 mL solution for nebulization 3 ml INHALATION Q6H PRN (Reason: Shortness Of Breath) Qty: 180 3RF budesonide 0.5 mg/2 mL suspension for nebulization 0.5 mg inhalation QPM Qty: 60 5RF fluticasone propionate [Flonase Allergy Relief] 50 mcg/actuation spray,suspension 2 spray intranasal DAILY Qty: 16 0RF Rx Instructions: administer into each nostril albuterol sulfate [Ventolin HFA] 90 mcg/actuation HFA aerosol inhaler 1 inh inhalation QID PRN (Reason: shortness of breath or wheezing) Qty: 8.5 3RF aspirin 81 mg Tablet,Chewable 81 mg PO DAILY RenaPlex-D 800 mcg-12.5 mg -2,000 unit Tablet 1 tab PO BEDTIME docusate sodium [Stool Softener] 100 mg capsule 100 mg PO BID oxycodone-acetaminophen 5-325 mg tablet 0.5 - 1 tab PO Q4H PRN (Reason: Pain) metolazone 5 mg tablet 5 mg PO QAM cyanocobalamin (vitamin B-12) [Vitamin B-12] 1,000 mcg tablet 1,000 mcg PO DAILY doxycycline hyclate 100 mg tablet 100 mg PO DAILY Changed metoprolol succinate 50 mg tablet extended release 24 hr 75 mg PO BID 30 Days Qty: 90 0RF Discontinued torsemide 100 mg tablet 100 mg PO DAILY Discharge Orders: Discharge Order (Routine); Ordered 12/19/22 Ordered By: Beckie Stafford Referrals: Bertin Tierney MD [Physician] - (Your Dr. Tierney follow up appointment will be scheduled during your Brittanie Cummings appointment. Thank you.) Brittanie Cummings FNP [Nurse Practitioner] - 12/24/22 1:30 pm Christofer Varghese MD [Primary Care Provider] - 12/22/22 3:00 pm Discharge Diet: Usual diet Discharge Activity: Resume usual activity Patient Instructions: Heart Failure (DC), Dialysis Diet (DC), Hemodialysis (DC), CHF Stoplight, Opioid Safety, Post Heart Attack Stoplight Discharge Attestations Time Spent in Discharge Care*: greater than 30 min Quality Metrics Clinical Quality Measures [ No reported AMI, CVA or VTE this stay] Coding Level of Care Code Acute Code for Chg Fwd Diagnoses Acute on chronic diastolic (congestive) heart failure I50.33 NSTEMI (non-ST elevated myocardial infarction) I21.4 H/O aortic valve replacement Z95.2 ESRD (end stage renal disease) N18.6 Tobacco abuse counseling Z71.6 Moderate to severe mitral regurgitation I34.0
[2022-12-19 11:46] LABS: Glucose Point of Care 202 mg/dL (70-110)
== END 2022-12-19 12:27 | disposition home or self-care (01) | DRG 280 ==
LOC: ER 05:08 → ICU 07:05 → CSU 12-15 16:51 → ICU 12-18 15:50
PROVIDERS: Hospitalist; Internal Medicine Cardiovascular Disease; Admitting Provider Family Medicine; Emergency Provider Emergency Medicine; PCP Family Medicine; Visit Provider Student in an Organized Health Care Education/Training Program
PROC: 0BJ17ZZ Inspection of Trachea, Via Natural or Artificial Opening (ICD-10-PCS; 2022-12-17 13:00)
PROC: 4A023N8 Measurement of Cardiac Sampling and Pressure, Bilateral, Percutaneous Approach (ICD-10-PCS; principal; 2022-12-18 08:30)
DX: I13.2 Hypertensive heart and chronic kidney disease with heart failure and with stage 5 chronic kidney disease, or end stage renal disease (principal); I50.33 Acute on chronic diastolic (congestive) heart failure; I21.A1 Myocardial infarction type 2; N18.6 End stage renal disease; J96.21 Acute and chronic respiratory failure with hypoxia; N39.0 Urinary tract infection, site not specified; J44.1 Chronic obstructive pulmonary disease with (acute) exacerbation; E11.22 Type 2 diabetes mellitus with diabetic chronic kidney disease; Z99.2 Dependence on renal dialysis; B95.2 Enterococcus as the cause of diseases classified elsewhere; Z95.3 Presence of xenogenic heart valve; E78.2 Mixed hyperlipidemia; F17.210 Nicotine dependence, cigarettes, uncomplicated; G47.33 Obstructive sleep apnea (adult) (pediatric); I27.20 Pulmonary hypertension, unspecified; E87.70 Fluid overload, unspecified; E11.51 Type 2 diabetes mellitus with diabetic peripheral angiopathy without gangrene; Z79.82 Long term (current) use of aspirin; Z79.51 Long term (current) use of inhaled steroids; Z79.891 Long term (current) use of opiate analgesic; Z79.899 Other long term (current) drug therapy; D63.1 Anemia in chronic kidney disease; E87.5 Hyperkalemia; I48.0 Paroxysmal atrial fibrillation; I34.0 Nonrheumatic mitral (valve) insufficiency
CPT/HCPCS: 36415; 36416; 36430; 36573; 36592; 36600; 71045; 80048; 80053; 80074; 80306; 80307; 81001; 82274; 82728; 82803; 82810; 82962; 83036; 83540; 83550; 83605; 83735; 83880; 84100; 84145; 84443; 84484; 85014; 85018; 85025; 85378; 85610; 85730; 86140; 86706; 86850; 86900; 86920; 87040; 87070; 87077; 87086; 87186; 87205; 87426; 87806; 90935; 93005; 93306; 93460; 93970; 94640; 94664; 96372; 96374; 96375; 96376; 99152; 99153; 99285; C1751; C1769; C1887; C1894; C9113; J0360; J0456; J0610; J0696; J1100; J1644; J1815; J2250; J2405; J2704; J3010; J7030; J7050; J7512; J7626; P9016; P9040; Q3014; Q4081; Q9967

== ENCOUNTER → 2022-12-23 10:52 | Outpatient (BNVA) | payer MEDICARE, SELFPAY | PROVIDERS: PCP Family Medicine; Visit Provider Thoracic Surgery (Cardiothoracic Vascular Surgery) | DX: E11.52 Type 2 diabetes mellitus with diabetic peripheral angiopathy with gangrene (principal); L97.411 Non-pressure chronic ulcer of right heel and midfoot limited to breakdown of skin | CPT/HCPCS: 97597 ==

== ENCOUNTER → 2022-12-30 08:28 | Outpatient (BNVA) | payer MEDICARE, SELFPAY | PROVIDERS: PCP Family Medicine; Visit Provider Podiatrist Foot & Ankle Surgery | DX: I73.9 Peripheral vascular disease, unspecified; L60.3 Nail dystrophy; L84 Corns and callosities; Z89.421 Acquired absence of other right toe(s); E11.42 Type 2 diabetes mellitus with diabetic polyneuropathy; Z79.4 Long term (current) use of insulin; E11.52 Type 2 diabetes mellitus with diabetic peripheral angiopathy with gangrene; E11.621 Type 2 diabetes mellitus with foot ulcer; L97.411 Non-pressure chronic ulcer of right heel and midfoot limited to breakdown of skin | CPT/HCPCS: 11055; 11721; 97597 ==

== ENCOUNTER → 2023-01-06 11:01 | Outpatient (BNVA) | payer MEDICARE, SELFPAY | PROVIDERS: PCP Family Medicine; Visit Provider Nurse Practitioner Family | DX: E11.52 Type 2 diabetes mellitus with diabetic peripheral angiopathy with gangrene (principal); E11.621 Type 2 diabetes mellitus with foot ulcer; L97.412 Non-pressure chronic ulcer of right heel and midfoot with fat layer exposed | CPT/HCPCS: 11042 ==

== ENCOUNTER → 2023-01-12 12:57 | Outpatient (BNVA) | payer MEDICARE, SELFPAY | PROVIDERS: PCP Family Medicine; Visit Provider Internal Medicine Cardiovascular Disease | DX: I48.91 Unspecified atrial fibrillation (principal) | CPT/HCPCS: 93270 ==

== ENCOUNTER → 2023-01-13 11:01 | Outpatient (BNVA) | payer MEDICARE, SELFPAY | PROVIDERS: PCP Family Medicine; Visit Provider Thoracic Surgery (Cardiothoracic Vascular Surgery) | DX: E11.52 Type 2 diabetes mellitus with diabetic peripheral angiopathy with gangrene (principal); E11.621 Type 2 diabetes mellitus with foot ulcer; L97.411 Non-pressure chronic ulcer of right heel and midfoot limited to breakdown of skin | CPT/HCPCS: 97597; A6219 ==

== ENCOUNTER → 2023-01-14 09:11 | Outpatient (BNVA) | payer MEDICARE, SELFPAY | PROVIDERS: PCP Family Medicine; Visit Provider Internal Medicine Cardiovascular Disease | DX: I48.91 Unspecified atrial fibrillation (principal) | CPT/HCPCS: 93005 ==

== ENCOUNTER → 2023-01-20 10:54 | Outpatient (BNVA) | payer MEDICARE, SELFPAY | PROVIDERS: PCP Family Medicine; Visit Provider Thoracic Surgery (Cardiothoracic Vascular Surgery) | DX: E11.52 Type 2 diabetes mellitus with diabetic peripheral angiopathy with gangrene (principal); E11.621 Type 2 diabetes mellitus with foot ulcer; L97.411 Non-pressure chronic ulcer of right heel and midfoot limited to breakdown of skin | CPT/HCPCS: 97597 ==

== ENCOUNTER → 2023-01-27 10:59 | Outpatient (BNVA) | payer MEDICARE, SELFPAY | PROVIDERS: PCP Family Medicine; Visit Provider Thoracic Surgery (Cardiothoracic Vascular Surgery) | DX: E11.52 Type 2 diabetes mellitus with diabetic peripheral angiopathy with gangrene (principal); E11.621 Type 2 diabetes mellitus with foot ulcer; L97.411 Non-pressure chronic ulcer of right heel and midfoot limited to breakdown of skin | CPT/HCPCS: 97597 ==

== ENCOUNTER → 2023-01-29 10:08 | Outpatient (BNVA) | payer MEDICARE, SELFPAY | PROVIDERS: PCP Family Medicine; Visit Provider Internal Medicine Pulmonary Disease | DX: J44.9 Chronic obstructive pulmonary disease, unspecified (principal); R91.1 Solitary pulmonary nodule; K42.9 Umbilical hernia without obstruction or gangrene; F17.210 Nicotine dependence, cigarettes, uncomplicated; D64.9 Anemia, unspecified; Z95.5 Presence of coronary angioplasty implant and graft | CPT/HCPCS: 99214 ==

== ENCOUNTER 2023-02-09 08:42 | Inpatient (IN) | payer MEDICARE, SELFPAY ==
[2023-02-09] VITALS (79 sets, daily range): BP systolic 113–174; BP diastolic 33–79; PULSE 49–87; RESP 7–30; TEMP 35.7–36.8; O2SAT 70–100; BMI 33.5; BMI 35.7
--- NOTE | 2023-02-09 08:49 | XRR_ITS ---
PROCEDURE INFORMATION: Exam: XR Chest Exam date and time: 02/09/2023 9:01 AM Age: 62 years old Clinical indication: Pain; Angina pectoris; Prior surgery; Surgery date: 6+ months; Surgery type: Aortic valve dialysis cath; Additional info: Chest pain TECHNIQUE: Imaging protocol: Radiologic exam of the chest. Views: 1 view. COMPARISON: CR XR chest 1V portable [id number] 12/14/2022 9:15 AM FINDINGS: Tubes, catheters and devices: Right internal jugular tunneled dialysis catheter is once again seen with tip overlying the right atrium. Lungs: Normal lung volumes. Interval decreased perihilar interstitial opacities. This may represent improved pulmonary edema. Pleural spaces: Small right pleural effusion. No pneumothorax. Heart/Mediastinum: Unchanged mild cardiomegaly. Status post median sternotomy with sternal wires.There is a mildly tortuous thoracic aorta. The trachea is midline. Bones/joints: No acute osseous abnormalities seen. Mild shoulder degenerative changes are seen. Soft tissues: Multiple external leads are seen overlying the chest, limiting assessment. XR/XR chest 1V portable [id number] IMPRESSION: 1. Interval decreased perihilar interstitial opacities. This may represent improved pulmonary edema. Small right pleural effusion. 2. Unchanged cardiomegaly.
--- NOTE | 2023-02-09 08:49 | ECG_ITS ---
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 Measurements Intervals [place] Rate: 59 P: -71 LA: 221 QRS: -60 QRSD: 194 T: 57 QT: 574 QTc: 571 Interpretive Statements SINUS BRADYCARDIA WITH SINUS ARRHYTHMIA WITH FIRST DEGREE AV BLOCK INTRAVENTRICULAR CONDUCTION DELAY [130+ ms QRS DURATION] PROLONGED QT INTERVAL CRITICAL TEST RESULT Compared to ECG 01/12/2023 14:25:25 First degree AV block now present Intraventricular conduction delay now present Prolonged QT interval now present Electronically Signed On 02-09-2023 16:56:30 CUSTOMER SERVICE REPRESENTATIVE by Delfina Miles M.D. [email or web address]/store/[id number] f
--- NOTE | 2023-02-09 08:57 | ECG_ITS ---
[facility] Test Date: 2023-02-09 Pat Name: Richard Huffman Department: Room: Gender: Male Service Advocate Contact: : 1960 Requested By: Lauro Franks Order Number: [id number] Kisha MD: Delfina Miles M.D. Measurements Intervals [place] Rate: 59 P: -71 [place]: 221 QRS: -60 QRSD: 194 T: 57 QT: 574 QTc: 571 Interpretive Statements SINUS BRADYCARDIA WITH SINUS ARRHYTHMIA WITH FIRST DEGREE AV BLOCK INTRAVENTRICULAR CONDUCTION DELAY [130+ ms QRS DURATION] PROLONGED QT INTERVAL CRITICAL TEST RESULT Compared to ECG 01/12/2023 14:25:25 First degree AV block now present Intraventricular conduction delay now present Prolonged QT interval now present Electronically Signed On 02-09-2023 16:56:56 CLEANER FURNITURE by Delfina Miles M.D. [id number]
[2023-02-09] MEDS: aspirin 81 mg Chew Tablet 324 MG PO (09:14)
--- NOTE | 2023-02-09 09:28 | ED_ITS ---
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 History of renal dialysis Hyperlipidemia Hypertension Intermittent palpitations XI (obstructive sleep apnea) PVD (peripheral vascular disease) Severe tobacco use disorder Surgical History H/O aortic valve replacement H/O aortic valve replacement with tissue graft H/O foot surgery Family History Grandmother Diabetes Grandfather Diabetes Denies family history of CAD (coronary artery disease) Clotting disorder Dementia Chronic kidney disease (CKD) Suicide Anesthesia complication Bleeding disorder Lung disease Cancer Stroke Social History Smoking and tobacco/nicotine status: current every day tobacco/nicotine user cigarettes Packs smoked per day: 1 Years cigarettes smoked: 46 Alcohol intake: never Substance/Drug Use: never Lives independently: Yes (with girlfriend) Household members: significant other Marital status: Single service: No 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al status: disabled 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 Pets and animals: Yes Special araceli needs: No Agree to transfusion: Yes Course Vital Signs: Vital signs: Vital Signs Temperature 97.7 F 02/09/23 08:52 Pulse Rate 61 02/09/23 08:52 Respiratory Rate 16 02/09/23 08:52 Blood Pressure 132/46 02/09/23 08:52 Pulse Oximetry 99 02/09/23 08:52 Oxygen Delivery Me thod Room Air 02/09/23 08:52 Discharge Plan Discharge Condition: Stable Prescriptions: No Action cholecalciferol (vitamin D3) 125 mcg (5,000 unit) capsule 125 mcg PO DAILY hydralazine 50 mg tablet 50 mg PO TID tramadol 50 mg tablet 50 mg PO Q6H PRN bumetanide 2 mg tablet 2 mg PO DAILY doxycycline monohydrate 100 mg tablet 100 mg PO DAILY Qty: 90 1RF escitalopram oxalate [Lexapro] 10 mg tablet 10 mg PO DAILY Qty: 90 1RF ropinirole 1 mg tablet 1 mg PO DAILY Qty: 90 1RF isosorbide mononitrate 30 mg tablet extended release 24 hr 30 mg PO DAILY 30 Days Qty: 90 1RF lisinopril 40 mg tablet 40 mg PO DAILY Qty: 90 3RF budesonide-formoterol [Symbicort] 80-4.5 mcg/actuation HFA aerosol inhaler 2 puff inhalation BID Qty: 10.2 6RF (DME) Diabetic shoes See Rx Instructions .ROUTE .MEDSUPPLY Qty: 1 0RF Rx Instructions: With 3 pairs of inserts to the shoe gumarco ipratropium-albuterol 0.5 mg-3 mg(2.5 mg base)/3 mL solution for nebulization 3 ml INHALATION Q6H PRN (Reason: Shortness Of Breath) Qty: 180 3RF budesonide 0.5 mg/2 mL suspension for nebulization 0.5 mg inhalation QPM Qty: 60 5RF albuterol sulfate [Ventolin HFA] 90 mcg/actuation HFA aerosol inhaler 1 inh inhalation QID PRN (Reason: shortness of breath or wheezing) Qty: 8.5 3RF fluticasone propionate 50 mcg/actuation spray,suspension See Rx Instructions .ROUTE .COMPLEX Qty: 16 2RF Dose Instruction: Use 2 spray(s) in each nostril once daily Rx Instructions: Use 2 spray(s) in each nostril once daily amiodarone 200 mg tablet 100 mg PO DAILY Qty: 15 3RF aspirin 81 mg Tablet,Chewable 81 mg PO DAILY RenaPlex-D 800 mcg-12.5 mg -2,000 unit Tablet 1 tab PO BEDTIME docusate sodium [Stool Softener] 100 mg capsule 100 mg PO BID oxycodone-acetaminophen 5-325 mg tablet 0.5 - 1 tab PO Q4H PRN (Reason: Pain) metolazone 5 mg tablet 5 mg PO QAM cyanocobalamin (vitamin B-12) [Vitamin B-12] 1,000 mcg tablet 1,000 mcg PO DAILY metoprolol succinate 50 mg tablet extended release 24 hr 75 mg PO BID 30 Days Qty: 90 0RF Referrals: Christofer Varghese MD [Primary Care Provider] - Coding Level of Care Code ED Contact Lens Manufacturer for Lillian Anne
[2023-02-09 09:37] LABS: Basophils # 0.1 10^3/uL (0.0-0.1); Basophils % 0.5 %; Eosinophils % 0.1 %; Hematocrit 21.6 % (37-53); Lymphocytes # 1.7 10^3/uL (0.8-4.8); Lymphocytes % 13.2 %; Mean Corpuscular Hemoglobin 35.4 pg (27-33); Mean Corpuscular Volume 114.3 fl (82-101); Mean Platelet Volume 10.1 fL (7.4-10.4); Monocytes # 0.9 10^3/uL (0.2-0.9); Monocytes % 7.3 %; Neutrophils # 9.77 10^3/uL (1.8-7.7); Neutrophils % 77.3 %; Nucleated Red Blood Cells # 0.1 /100WBC; Platelet Count 198 10^3/cmm (157-399); Red Blood Count 1.89 10^6/uL (3.85-5.65); Red Cell Distribution Width 19.8 % (12.1-15.1); White Blood Count 12.62 10^3/uL (3.29-11.43)
--- NOTE | 2023-02-09 09:51 | ED_ITS ---
HPI - General Adult 2 General: Chief complaint: Weakness Stated complaint: tightness in chest, sob, cp Time Seen by Provider: 02/09/23 08:44 Source: patient Mode of arrival: ambulatory History of Present Illness: 62-year-old male presents to the emergen cy room is a history of chronic anemia. Presents today after having 3 days of bright red blood per rectum. 4 days ago he states he began to feel poorly and weak the following day he began to have large bright red bloody stools. He said for the last 24 to 48 hours he has had 1 about every 3-4 hours a completely discolors the toilet water. While not on his medication list the patient tells me he is on apixaban. He has a history of coronary artery disease and history of congestive heart failure. He has noticed increased weakness dyspnea with exertion he is intermittently been having chest pain and some orthopnea. Last month he had a angiogram which did not show any significant disease and showed an ejection fraction in the 55% range. Onset (ago): day(s) (4) Location: chest Associated symptoms: Reports chest pain, decreased appetite, dyspnea, malaise, nausea, palpitations and weakness; Deny confusion, cough, diaphoresis, fevers/chills, headache(s), rash, seizures, short of breath, syncope, vomiting or other Review of Systems 2 Const: Reports: malaise; Denies: fever(s), chills or diaphoresis Card: Reports: chest pain and palpitations; Denies: syncope Resp: Reports: dyspnea GI: Reports: abdominal pain, nausea, diarrhea and hematochezia; Denies: vomiting : Denies: dysuria, urinary frequency or urinary urgency Musc: Denies: neck pain or back pain Skin/Breast: Denies: rash Neuro: Denies: headache(s) or confusion PFSH ED 2 PFSH: Medical History COPD (chronic obstructive pulmonary disease) Severe tobacco use disorder ESRD on hemodialysis History of renal dialysis Chronic kidney disease 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 Intermittent palpitations Hyperlipidemia Hypertension XI (obstructive sleep apnea) DJD (degenerative joint disease) Atrial flutter PVD (peripheral vascular disease) Diabetes Surgical History H/O aortic valve replacement with tissue graft H/O aortic valve replacement H/O foot surgery Family History Grandmother Diabetes Grandfather Diabetes Denies family history of CAD (coronary artery disease) Clotting disorder Dementia Chronic kidney disease (CKD) Suicide Anesthesia complication Bleeding disorder Lung disease Cancer Stroke Social History Smoking and tobacco/nicotine status: current every day tobacco/nicotine user cigarettes Packs smoked per day: 1 Years cigarettes smoked: 46 Alcohol intake: never Substance/Drug Use: never Lives independently: Yes (with girlfriend) Household members: significant other Marital status: Single service: No 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al status: disabled 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 Pets and animals: Yes Special araceli needs: No Agree to transfusion: Yes Physical Exam 2 Const: COMMON NORMALS: no acute distress GENERAL APPEARANCE: cooperative and comfortable ORIENTATION/CONSCIOUSNESS: Yes awake, Yes oriented to person, Yes oriented to place and Yes oriented to time HENMT: COMMON NORMALS: normocephalic, atraumatic and hearing grossly normal bilaterally HEAD & SCALP: normocephalic and atraumatic Resp: COMMON NORMALS: normal respiratory effort, No retractions, No use of accessory muscles and clear to auscultation bilaterally AUSCULTATION: clear to auscultation bilaterally Cardio: COMMON NORMALS: regular rate, regular rhythm and No murmurs present (Cardio) RATE: regular rate RHYTHM: regular rhythm GI: COMMON NORMALS: Soft to palpation and No hepatosplenomegaly present A USCULTATION: Yes normoactive bowel sounds PALPATION: Yes Soft to palpation, No Tenderness to palpation present (GI), No Guarding due to palpation present (GI) and Yes No hepatosplenomegaly present Extremity: COMMON NORMALS: normal to inspection, capillary refill normal, no clubbing, cyanosis or edema, no calf tenderness and no pedal edema Neuro: SENSORIUM/ORIENTATION: Yes oriented to person, Yes oriented to place and Yes oriented to time Skin: COMMON NORMALS: no rashes or lesions noted GENERAL SKIN EXAM: no rashes or lesions noted Course 2 Vital Signs: Vital signs: Vital Signs Temperature 98.4 F 02/12/23 20:06 Pulse Rate 65 02/12/23 20:06 Respiratory Rate 18 02/12/23 20:06 Blood Pressure 157/79 02/12/23 20:06 Pulse Oximetry 100 02/12/23 16:13 Oxygen Delivery Me thod Room Air 02/12/23 15:31 MDM - General Adult Medical Decision Making Acute lower GI bleed. Patient is anemic from the review of his indices appears to be acute on chronic. Additionally his end-stage renal disease he missed dialysis yesterday because he was not feeling well treat for hyperkalemia admit to the ICU where he can receive dialysis further evaluation for his GI bleed discussed with hospitalist orders written. Patient was treated for his hyperkalemia in the ER and consulted nephrology. Also typed and crossed for transfusion. Medical Records I reviewed the patient's medical records. Lab Data I reviewed the patient's lab results. 02/12/23 05:33 02/12/23 05:33 Radiology Impressions Chest X-Ray 02/09/23 08:49 IMPRESSION: 1. Interval decreased perihilar interstitial opacities. This may represent improved pulmonary edema. Small right pleural effusion. 2. Unchanged cardiomegaly. Laboratory Results WBC 12.62 10^3/uL (3.29-11.43) H 02/09/23 09:20 RBC 1.89 10^6/uL (3.85-5.65) L 02/09/23 09:20 Hgb 6.70 g/dL (11.27-16.99) L 02/09/23 09:20 Hct 21.6 % (37-53) L 02/09/23 09:20 MCV 114.3 fl (82-101) H 02/09/23 09:20 MCH 35.4 pg (27-33) H 02/09/23 09:20 MCHC 31.0 g/dL (30-55) 02/09/23 09:20 RDW 19.8 % (12.1-15.1) H 02/09/23 09:20 Plt Count 198 10^3/cmm (157-399) 02/09/23 09:20 MPV 10.1 fL (7.4-10.4) 02/09/23 09:20 Neut % (Auto) 77.3 % 02/09/23 09:20 Lymph % (Auto) 13.2 % 02/09/23 09:20 Lucas % (Auto) 7.3 % 02/09/23 09:20 Eos % (Auto) 0.1 % 02/09/23 09:20 Baso % (Auto) 0.5 % 02/09/23 09:20 Neut # (Auto) 9.77 10^3/uL (1.8-7.7) H 02/09/23 09:20 Lymph # (Auto) 1.7 10^3/uL (0.8-4.8) 02/09/23 09:20 Lucas # (Auto) 0.9 10^3/uL (0.2-0.9) 02/09/23 09:20 Eos # (Auto) 0.0 10^3/uL (0.0-0.8) 02/09/23 09:20 Baso # (Auto) 0.1 10^3/uL (0.0-0.1) 02/09/23 09:20 Nucleated RBC % (auto) 1.0 % 02/09/23 09:20 Nucleated RBCs # 0.1 /100WBC 02/09/23 09:20 Specimen Type Arterial 02/09/23 10:43 Sample Site Radial, right 02/09/23 10:43 ABG pH 7.28 (7.35-7.45) L 02/09/23 10:43 ABG pCO2 26.6 mmHg (35-45) L 02/09/23 10:43 ABG pO2 89.0 mmHg (80.0-100.0) 02/09/23 10:43 ABG PO2/FiO2 Ratio 0 02/09/23 10:43 ABG HCO3 12.6 mmol/L (22-26) L 02/09/23 10:43 ABG O2 Saturation 96.6 02/09/23 10:43 ABG Base Excess -12.9 mmol/L (-2.0-2.0) L 02/09/23 10:43 Kahs Test Pos 02/09/23 10:43 A-a O2 Gradient 3.6 mmHg (5-10) L 02/09/23 10:43 Hematocrit 17.6 % (42-52) L 02/09/23 10:43 Hgb O2 Saturation 93.2 % (95-100) L 02/09/23 10:43 Carboxyhemoglobin 2.6 %THgb (0.4-20.1) 02/09/23 10:43 Methemoglobin 0.9 % (0.4-1.5) 02/09/23 10:43 Total Hemoglobin 5.7 g/dL (14-18) L 02/09/23 10:43 Sodium 133.0 mmol/L (131-143) 02/09/23 10:43 Potassium 7.1 mmol/L (3.5-5.0) H 02/09/23 10:43 Glucose 169.0 mg/dL (70-115) H 02/09/23 10:43 Ionized Calcium 1.1 mmol/L (1.1-1.4) 02/09/23 10:43 O2 Delivery Device Room air 02/09/23 10:43 FiO2 21.0 % 02/09/23 10:43 Desktop Support Associate ID Monro 02/09/23 10:43 Sodium 134 mmol/L (136-145) L 02/09/23 09:20 Potassium 7.4 mmol/L (3.5-5.1) H* 02/09/23 09:20 Chloride 89 mmol/L (98-107) L 02/09/23 09:20 Carbon Dioxide 13 mmol/L (22-29) L 02/09/23 09:20 Anion Gap 39.4 (5-19) H 02/09/23 09:20 BUN 111 mg/dL (8-23) H* D 02/09/23 09:20 Creatinine 11.0 mg/dL (0.7-1.2) H* 02/09/23 09:20 GFR Calculation 4.8 mL/min (90-130) L 02/09/23 09:20 Glucose 168 mg/dL (65-115) H 02/09/23 09:20 Calculated Osmolality 317 mOsm/kg (285-295) H 02/09/23 09:20 Calcium 9.0 mg/dL (8.5-10.5) 02/09/23 09:20 Total Bilirubin 0.6 mg/dL (0.15-1.2) 02/09/23 09:20 AST 216 U/L (0-40) H 02/09/23 09:20 ALT 165 U/L (0-41) H 02/09/23 09:20 Alkaline Phosphatase 194 U/L (40-130) H 02/09/23 09:20 Troponin T Baseline 363 ng/L (0-15) H* 02/09/23 09:20 Troponin T 120 Minute 333.9 ng/L (0-15) H 02/09/23 11:33 Delta Troponin T -29.1 ABS# (0-10) L 02/09/23 11:33 Total Protein 6.2 g/dL (6.6-8.7) L 02/09/23 09:20 Albumin 3.9 g/dL (3.5-5.2) 02/09/23 09:20 Globulin 2.3 g/dL (1.3-4.6) 02/09/23 09:20 Vitamin B12 1629 pg/mL (232-1245) H 02/09/23 09:20 Serum Ketones Negative (Negative) 02/09/23 09:20 Hep Bs Antigen Non-reactive (Nonreactive) 02/09/23 09:20 Hep Bs Antibody 25.6 (11.5-1000) 02/09/23 09:20 Blood Type O Positive 02/09/23 10:13 Rho(D) Type Rh positive 02/09/23 10:13 Antibody Screen Negative 02/09/23 10:13 Crossmatch See Detail 02/09/23 10:13 All radiology interpretation(s) finalized by discharge Discharge Plan Discharge Patient Disposition: Admitted As Inpatient Admit Provider: Leander Zavala Clinical Impression: Acute lower GI bleeding, ESRD (end stage renal disease), Anemia, Acute hyperkalemia, Elevated troponin I level Condition: Stable Discharge Diet: Usual diet Discharge Activity: Increase activity as tolerated Coding Level of Care Code ED Marketing Analyst for Lillian Anne
[2023-02-09 09:55] LABS: Alanine Aminotransferase 165 U/L (0-41); Albumin Level 3.9 g/dL (3.5-5.2); Alkaline Phosphatase 194 U/L (40-130); Anion Gap 39.4 (5-19); Aspartate Amino Transferase 216 U/L (0-40); Carbon Dioxide 13 mmol/L (22-29); Chloride 89 mmol/L (98-107); Globulin 2.3 g/dL (1.3-4.6); Glomerular Filtration Rate 4.8 mL/min (90-130); Glucose 168 mg/dL (65-115); Osmolality Calculated 317 mOsm/kg (285-295); Sodium 134 mmol/L (136-145); Total Bilirubin 0.6 mg/dL (0.15-1.2); Total Protein 6.2 g/dL (6.6-8.7)
--- NOTE | 2023-02-09 09:55 | CT_ITS ---
WS: [id number] CT ABDOMEN PELVIS TECHNIQUE: Noncontrast CT of the abdomen and pelvis with coronal and sagittal reformatted images. CLINICAL INFORMATION: Abdominal pain COMPARISON: CTA 07/16/2022 DLP: 1139.[address] scans at [facility] use at least one of these dose optimization techniques: automated e xposure control; mA and/or kV adjustment per patient size (includes targeted exams where dose is matc hed to clinical indication); or iterative reconstruction. FINDINGS: Again seen is a large ventral epigastric hernia with herniation of nonobstructed small bowel transver se colon. This is similar to the prior examination. No evidence of small or large bowel obstruction. Tiny RIGHT pleural effusion. LEFT lung base is well aerated. Noncontrast liver is normal. Mild fluid distention of the gallbladder. Small esophageal hiatal hernia with air-fluid level in the distal esop hagus. Fatty atrophy of the pancreas. Adrenal glands are normal. Bilateral renal cortical atrophy. No hydronephrosis in either kidney. Small bladder cystocele. Enlarged prostate with calcification. Sigm oid diverticulosis. Diffuse colonic diverticuli. No definite evidence of acute diverticulitis. No del e fluid in the abdomen or pelvis. IMPRESSION: 1. Tiny RIGHT pleural effusion with subsegmental ectasis RIGHT lower lobe. 2. Stable epigastric hernia with herniation of loops of transverse colon and small bowel nonobstruct ed. No evidence of small or large bowel obstruction. 3. Sigmoid diverticulosis. Diffuse colonic diverticulosis. No evidence of acute diverticulitis on th is noncontrast examination. 4. Bilateral renal cortical atrophy. 5. Small esophageal hiatal hernia.
[2023-02-09 09:59] LABS: Blood Urea Nitrogen 111 mg/dL (8-23); Potassium 7.4 mmol/L (3.5-5.1); Troponin(5th) Baseline 363 ng/L (0-15)
[2023-02-09 10:13] LABS: Ketone (Acetest) Serum Negative (Negative)
--- NOTE | 2023-02-09 10:49 | ECG_ITS ---
[facility] Test Date: 2023-02-09 Pat Name: Richard Huffman Department: Room: Gender: Male [employer] Professional: : 1960 Requested By: Lauro Franks Order Number: [id number] Kisha MD: Delfina Miles M.D. Measurements Intervals [place] Rate: 50 P: 0 MS: 0 QRS: -71 QRSD: 186 T: 60 QT: 611 QTc: 562 Interpretive Statements SINUS BRADYCARDIA WITH 2ND DEGREE MOBITZ TYPE I AV block LEFT AXIS DEVIATION [QRS AXIS < -30] RIGHT BUNDLE BRANCH BLOCK [120+ ms QRS DURATION, UPRIGHT V1, 40+ ms S IN I/aVL/V4/V5/V6] PROLONGED QT INTERVAL - CRITICAL TEST RESULT Tri-fascicular Block Electronically Signed On 02-09-2023 17:13:40 SOFTWARE ENGINEERING ANALYST by Delfina Miles M.D. [id number]
[2023-02-09 10:57] LABS: ABG PCO2 26.6 mmHg (35-45); ABG PH Result 7.28 (7.35-7.45); Alveolar-Arterial Oxygen Gradi 3.6 mmHg (5-10); Arterial Blood Gas Hematocrit 17.6 % (42-52); Base Excess ABG -12.9 mmol/L (-2.0-2.0); Blood Gas Allen Test Pos; Blood Gas Operator Identificat MONRO; Blood Gas Sample Site Radial, right; Blood Gas Sample Type Arterial; Carboxyhemoglobin 2.6 %THgb (0.4-20.1); HCO3 ABG 12.6 mmol/L (22-26); HGB O2 Sat 93.2 % (95-100); Ionized Calcium Level - ABG 1.1 mmol/L (1.1-1.4); Methemoglobin 0.9 % (0.4-1.5); Oxygen Device ROOM AIR; Oxygen Saturation ABG 96.6; PO2 FiO2 Ratio Arterial Blood 0; Potassium Level - ABG 7.1 mmol/L (3.5-5.0); Total Hemoglobin 5.7 g/dL (14-18)
[2023-02-09] MEDS: sodium bicarbonate 8.4% 1 mEq/mL 50mL Syr 100 MEQ IVP (11:01)
[2023-02-09] MEDS: calcium chloride 10% Syr 10 mL 2 GM IVP (11:08)
[2023-02-09] MEDS: insulin regular-human 100 units/1 mL 10 UNIT IVP (11:12)
[2023-02-09] MEDS: ciprofloxacin 400 MG/200 ML PREMIX 200 MG IV (11:39)
[2023-02-09 12:11] LABS: Hepatitis B Surface AB 25.6 (11.5-1000); Hepatitis B Surface Antigen Non-Reactive (Nonreactive)
[2023-02-09 12:12] LABS: Troponin 5 2HR 333.9 ng/L (0-15); Troponin 5 2HR Delta -29.1 ABS# (0-10)
--- NOTE | 2023-02-09 13:06 | PC.NURSE ---
1240 to ICU 12 via stretcher, moved to bed by 4 staff. VSS, AAOx4, GCS 15, no active bleeding.
--- NOTE | 2023-02-09 13:07 | PM.HP ---
Documented by User: Zaki Bruner karla Kirby 02/09/23 14:01 Providers/Chief Complaint Admitting Physician: Leander Zavala MD Primary Care Provider: Christofer Varghese MD Chief Complaint: tightness in chest, sob, cp History of Present Illness Patient is a 62-year-old male with a past medical history of COPD, ESRD on hemodialysis, endocarditis, CHF, hypertension, hyperlipidemia, XI, A- flutter, PVD, DM2 who presents to the emergency room with a chief complaint of weakness. Patient will be admitted to the hospital for further medical management of hyperkalemia and hematochezia. Patient reports approximately 4 days ago that he started feeling poorly and noticed an increase in weakness. Patient then reports that Wednesday he noticed some bright red stool coming from rectum. Patient states frequency of bright red stools have increased since and states yesterday he had 1 bowel movement approximately every 3-4 hours. Does state that bright red bowel movements are mixed with stool and denies any dark/black tarry stools at this time. Patient reports last bright red stool this a.m. Patient does report that he is on Eliquis and states he was prescribed medication due to fistula by a lawnmower repair mechanic in [facility] but not present at this time. Reports that he did miss his M, W, F dialysis treatment yesterday, Wednesday, due to increased weakness. He denies any abdominal pain, bloody emesis, nosebleeds, fever, abdominal pain, or bloody urination. Does report some shortness of breath, chest pain, cold and clammy feeling. Did report that chest pain has improved since hospital visit. Does report some lower back pain 5/10 on pain scale but this is not out of the ordinary for patient. Also does have a significant medial upper abdominal hernia and reports 4/10 on pain scale. While in the emergency room, laboratory studies revealed WBC 12.62, hemoglobin 6.7, hematocrit 21.6, MCV 114.3, potassium 7.4, anion gap 39.4, BUN 111, creatinine 11, AST 216, ALT 165, troponin baseline at 363. ABG revealed pH 7.28, CO2 26.6, bicarb 12.6. Chest x-ray field small right pleural effusion, cardiomegaly, and interstitial opacities. CT abdomen pelvis revealed right pleural effusion, epigastric hernia with no obstruction, sigmoid diverticulosis, she had no acute findings. Patient received aspirin 324, calcium chloride 2 g, 1M EQ sodium bicarb, 10 units regular insulin IVP, Cipro, Flagyl, TXA. Due to concerns for hyperkalemia, hematochezia, chest pain, and increased weakness, patient will be admitted for IV blood products, dialysis, and further supportive care measures. Review of Systems Narrative: Comprehensive 10 point ROS is negative except as noted in the corresponding HPI. Medications/Allergies Home Medications Medication Instructions Recorded Confirmed Last Taken Type aspirin 81 mg chewable tablet 81 mg PO DAILY 01/26/22 02/09/23 02/08/23 History vit B,C-folic ac 800 mcg-zinc 12.5 1 tab PO BEDTIME 01/26/22 02/09/23 02/08/23 History mg-selen-D3 2,000 unit-vit E tablet (RenaPlex-D) cholecalciferol (vitamin D3) 125 125 mcg PO DAILY 05/26/22 02/09/23 02/08/23 History mcg (5,000 unit) capsule hydralazine 50 mg tablet 50 mg PO TID 05/28/22 02/09/23 02/08/23 History oxycodone-acetaminophen 5 mg-325 0.5 - 1 tab PO Q4H PRN Pain 07/15/22 02/09/23 Unknown History mg tablet cyanocobalamin (vitamin B-12) 1,000 mcg PO DAILY 08/25/22 02/09/23 02/08/23 History 1,000 mcg tablet (Vitamin B-12) metolazone 5 mg tablet 5 mg PO QAM 08/25/22 02/09/23 02/08/23 History docusate sodium 100 mg capsule 100 mg PO BID 10/01/22 02/09/23 02/08/23 History (Stool Softener) budesonide 0.5 mg/2 mL suspension 0.5 mg (2 mL) inhalation QPM #60 mL 10/13/22 02/09/23 02/08/23 Rx for nebulization ipratropium 0.5 mg-albuterol 3 mg 3 ml inhalation Q6H PRN Shortness 10/13/22 02/09/23 Unknown Rx (2.5 mg base)/3 mL nebulization Of Breath #180 mL soln Diabetic shoes #1 ea 10/27/22 02/09/23 Unknown Rx albuterol sulfate 90 mcg/actuation 1 inh inhalation QID PRN shortness 12/29/22 02/09/23 Unknown Rx aerosol inhaler (Ventolin HFA) of breath or wheezing #8.5 grams bumetanide 2 mg tablet 2 mg PO DAILY 12/29/22 02/09/23 02/08/23 History doxycycline monohydrate 100 mg 100 mg PO DAILY #90 tabs 12/29/22 02/09/23 02/08/23 Rx tablet escitalopram oxalate 10 mg tablet 10 mg PO DAILY #90 tabs 12/29/22 02/09/23 02/08/23 Rx (Lexapro) tramadol 50 mg tablet 50 mg PO Q6H PRN Pain, Mild 12/29/22 02/09/23 Unknown History amiodarone 200 mg tablet 100 mg (1/2 x 200 mg) PO DAILY #15 01/21/23 02/09/23 02/08/23 Rx tabs fluticasone propionate 50 2 spray intranasal DAILY 02/09/23 02/09/23 02/08/23 History mcg/actuation nasal spray,suspension lisinopril 20 mg tablet 20 mg PO DAILY 02/09/23 02/09/23 02/08/23 History metoprolol succinate 50 mg 50 mg PO BID 02/09/23 02/09/23 02/08/23 History tablet,extended release 24 hr ropinirole 1 mg tablet 1 mg PO QPM 02/09/23 02/09/23 02/08/23 History Allergies Allergy/AdvReac Type Severity Reaction Status Date / Time latex Allergy Mild Blisters Verified 02/09/23 08:52 petrolatum,white Allergy Mild Blisters Verified 02/09/23 08:52 [From A and D Barrier] amlodipine Allergy Unknown Verified 02/09/23 08:52 PFSH Acute PFSH: Medical History COPD (chronic obstructive pulmonary disease) Severe tobacco use disorder ESRD on hemodialysis History of renal dialysis Chronic kidney disease 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 Intermittent palpitations Hyperlipidemia Hypertension XI (obstructive sleep apnea) DJD (degenerative joint disease) Atrial flutter PVD (peripheral vascular disease) Diabetes Surgical History H/O aortic valve replacement with tissue graft H/O aortic valve replacement H/O foot surgery Family History Grandmother Diabetes Grandfather Diabetes Denies family history of CAD (coronary artery disease) Clotting disorder Dementia Chronic kidney disease (CKD) Suicide Anesthesia complication Bleeding disorder Lung disease Cancer Stroke Social History Smoking and tobacco/nicotine status: current every day tobacco/nicotine user cigarettes Packs smoked per day: 1 Years cigarettes smoked: 46 Alcohol intake: never Substance/Drug Use: never Lives independently: Yes (with girlfriend) Household members: significant other Marital status: Single service: No 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al status: disabled 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 Pets and animals: Yes Special araceli needs: No Agree to transfusion: Yes Vitals/I&O/Wt Last Vital Signs Temp 97.7 F 02/09/23 08:52 Pulse 66 02/09/23 12:20 Resp 24 H 02/09/23 12:20 BP 148/65 02/09/23 12:20 Pulse Ox 94 02/09/23 12:20 O2 Del Method Room Air 02/09/23 09:55 Weight last 48 hrs Weight 103 kg Physical Exam Const: COMMON NORMALS: patient oriented x3 and alert GENERAL APPEARANCE: ill appearing HENMT: COMMON NORMALS: normocephalic Eye: OTHER: Deferred Neck/C-Spine: COMMON NORMALS: full ROM and no lymphadenopathy Chest: COMMONS NORMALS: normal inspection of the chest Resp: OTHER: Inspiratory and expiratory wheezes throughout on auscultation. Normal respiratory effort. Cardio: COMMON NORMALS: no JVD and regular rhythm PERIPHERAL PULSES: radial pulses present positive bilateral 2+ and dorsalis pedis present positive bilateral 1+ GI: INSPECTION: Yes other (Epigastric hernia medial) AUSCULTATION: Yes normoactive bowel sounds PALPATION: Yes Soft to palpation, Yes Tenderness to palpation present (GI) Details: RLQ and Yes No hepatosplenomegaly present RECTAL EXAM: Yes visual inspection normal : OTHER: Deferred Back/Pelvis: OTHER: Lower dyeing machine back tender on palpation Skin: NARRATIVE SKIN EXAM: No open wounds noted Right chest wall temporary dialysis cath present on admission. Cyanosis to bilateral lower extremity (PVD). Data 02/09/23 09:20 02/09/23 09:20 Other Labs: WBC 12.62, hemoglobin 6.7, hematocrit 21.6, MCV 114.3. ABG pH 7.28, CO2 26.6, bicarb 12.6. CMP potassium 7.4, anion gap 39.4, BUN 111, creatinine 11, glucose 168, AST 216, ALT 165, alk phos 194, troponin baseline 363. Micro: Microbiology 02/09/23 10:20 Blood Culture - Preliminary Blood SPECIMEN COLLECTED 02/09/23 10:13 Blood Culture - Preliminary Blood SPECIMEN COLLECTED CXR: My impression: Per my interpretation, small right pleural effusion to right costophrenic angle. Cardiomegaly. No pneumothorax or abnormalities. EKG 1: My Interpretation: Per my interpretation, sinus bradycardia with first-degree AV block. Right bundle branch block. A&P Assessment and plan (1) Hematochezia: Patient's hemoglobin was noted to be 6.7 and hematocrit 21.6. Patient was typed and screened in emergency room and will receive 1 unit PRBCs. Monitor labs in AM. (2) Acute hyperkalemia: Potassium noted to be 7.4. Patient received 10 units insulin regular, calcium gluconate, sodium bicarb while in the emergency room. Patient will receive hemodialysis at bedside today. Monitor labs in AM. (3) Macrocytic anemia: MCV 114.3 (4) ESRD on hemodialysis: BUN 111 and creatinine 11. Patient reports that he skipped hemodialysis treatment yesterday. Patient will receive bedside hemodialysis treatment in ICU today. (5) Elevated troponin: Initial troponin 363, delta 2-hour troponin 333. Does report some chest pain 4/10 on pain scale. States chest pain has improved since ER visit. Will continue to trend troponin levels. (6) Acute on chronic diastolic (congestive) heart failure: Will obtain a BNP level. (7) COPD (chronic obstructive pulmonary disease): Remains stable at this time. Patient is on room air and vital signs within normal limits. (8) Diabetes: Insulin SS Accu-Cheks ACHS Consistent carb diet. Qualifiers: Diabetes mellitus complication detail: with other arthropathy Diabetes mellitus complication status: with diabetic arthropathy Diabetes mellitus nursing home insulin use: with [employer] use Diabetes mellitus type: type 2 Qualified Code(s): E11.618 - Type 2 diabetes mellitus with other diabetic arthropathy; Z79.4 - jail (current) use of insulin (9) Hypertension: Continue home medications Stable Qualifiers: Hypertension type: essential hypertension Qualified Code(s): I10 - Essential (primary) hypertension (10) Hyperlipidemia: Continue home medications Qualifiers: Hyperlipidemia type: mixed hyperlipidemia Qualified Code(s): E78.2 - Mixed hyperlipidemia Plan Plan as stated above. Patient will receive 1 unit PRBCs and we will monitor hyperkalemic state. Labs in AM. Patient wishes to remain full code at this time, if unable to make decisions for his self, Anthony José SON, will make decisions for him. DVT prophylaxis: SCDs Coding Level of Care Code Critical Care >/= 30 minutes Diagnoses Hematochezia K92.1 Acute hyperkalemia E87.5 Macrocytic anemia D53.9 ESRD on hemodialysis N18.6; Z99.2 Elevated troponin R79.89 Acute on chronic diastolic (congestive) heart failure I50.33 COPD (chronic obstructive pulmonary disease) J44.9 Type 2 diabetes mellitus with other diabetic arthropathy, with long-term current use of insulin E11.618; Z79.4 Diabetes mellitus complication detail: with other arthropathy Diabetes mellitus complication status: with diabetic arthropathy Diabetes mellitus [employer] insulin use: with nursing home use Diabetes mellitus type: type 2 Essential hypertension I10 Hypertension type: essential hypertension Mixed hyperlipidemia E78.2 Hyperlipidemia type: mixed hyperlipidemia Documented by User: Leander Zavala MD 02/09/23 14:27 Providers/Chief Complaint Chief Complaint: tightness in chest, sob, cp History of Present Illness Patient is a 62-year-old male with a past medical history of COPD, ESRD on hemodialysis, endocarditis, CHF, hypertension, hyperlipidemia, XI, A- flutter, PVD, DM2 who presents to the emergency room with a chief complaint of weakness. Patient will be admitted to the hospital for further medical management of hyperkalemia and hematochezia. Patient reports approximately 4 days ago that he started feeling poorly and noticed an increase in weakness. Patient then reports that Wednesday he noticed some bright red stool coming from rectum. Patient states frequency of bright red stools have increased since and states yesterday he had 1 bowel movement approximately every 3-4 hours. Does state that bright red bowel movements are mixed with stool and denies any dark/black tarry stools at this time. Patient reports last bright red stool this a.m. He has been on Eliquis in the past, I believe secondary to atrial fibrillation, but denies being on it currently.. Reports that he did miss his M, W, F dialysis treatment yesterday, Wednesday, due to increased weakness. He denies any abdominal pain, bloody emesis, nosebleeds, fever, abdominal pain, or bloody urination. Does report some shortness of breath, chest pain, cold and clammy feeling. Did report that chest pain has improved since hospital visit. Does report some lower back pain 5/10 on pain scale but this is not out of the ordinary for patient. Also does have a significant medial upper abdominal hernia and reports 4/10 on pain scale. While in the emergency room, laboratory studies revealed WBC 12.62, hemoglobin 6.7, hematocrit 21.6, MCV 114.3, potassium 7.4, anion gap 39.4, BUN 111, creatinine 11, AST 216, ALT 165, troponin baseline at 363. ABG revealed pH 7.28, CO2 26.6, bicarb 12.6. Chest x-ray field small right pleural effusion, cardiomegaly, and interstitial opacities. CT abdomen pelvis revealed right pleural effusion, epigastric hernia with no obstruction, sigmoid diverticulosis, she had no acute findings. Patient received aspirin 324, calcium chloride 2 g, 1M EQ sodium bicarb, 10 units regular insulin IVP, Cipro, Flagyl, TXA. Due to concerns for hyperkalemia, hematochezia, chest pain, and increased weakness, patient will be admitted for IV blood products, dialysis, and further supportive care measures. Review of Systems General: Reports: 10 or more systems reviewed and unremarkable except in HPI and below Card: Reports: chest pain Resp: Reports: dyspnea GI: Reports: abdominal pain and hematochezia; Denies: nausea, vomiting or melena Medications/Allergies Home Medications Medication Instructions Recorded Confirmed Last Taken Type aspirin 81 mg chewable tablet 81 mg PO DAILY 01/26/22 02/09/23 02/08/23 History vit B,C-folic ac 800 mcg-zinc 12.5 1 tab PO BEDTIME 01/26/22 02/09/23 02/08/23 History mg-selen-D3 2,000 unit-vit E tablet (RenaPlex-D) cholecalciferol (vitamin D3) 125 125 mcg PO DAILY 05/26/22 02/09/23 02/08/23 History mcg (5,000 unit) capsule hydralazine 50 mg tablet 50 mg PO TID 05/28/22 02/09/23 02/08/23 History oxycodone-acetaminophen 5 mg-325 0.5 - 1 tab PO Q4H PRN Pain 07/15/22 02/09/23 Unknown History mg tablet cyanocobalamin (vitamin B-12) 1,000 mcg PO DAILY 08/25/22 02/09/23 02/08/23 History 1,000 mcg tablet (Vitamin B-12) metolazone 5 mg tablet 5 mg PO QAM 08/25/22 02/09/23 02/08/23 History docusate sodium 100 mg capsule 100 mg PO BID 10/01/22 02/09/23 02/08/23 History (Stool Softener) budesonide 0.5 mg/2 mL suspension 0.5 mg (2 mL) inhalation QPM #60 mL 10/13/22 02/09/23 02/08/23 Rx for nebulization ipratropium 0.5 mg-albuterol 3 mg 3 ml inhalation Q6H PRN Shortness 10/13/22 02/09/23 Unknown Rx (2.5 mg base)/3 mL nebulization Of Breath #180 mL soln Diabetic shoes #1 ea 10/27/22 02/09/23 Unknown Rx albuterol sulfate 90 mcg/actuation 1 inh inhalation QID PRN shortness 12/29/22 02/09/23 Unknown Rx aerosol inhaler (Ventolin HFA) of breath or wheezing #8.5 grams bumetanide 2 mg tablet 2 mg PO DAILY 12/29/22 02/09/23 02/08/23 History doxycycline monohydrate 100 mg 100 mg PO DAILY #90 tabs 12/29/22 02/09/23 02/08/23 Rx tablet escitalopram oxalate 10 mg tablet 10 mg PO DAILY #90 tabs 12/29/22 02/09/23 02/08/23 Rx (Lexapro) tramadol 50 mg tablet 50 mg PO Q6H PRN Pain, Mild 12/29/22 02/09/23 Unknown History amiodarone 200 mg tablet 100 mg (1/2 x 200 mg) PO DAILY #15 01/21/23 02/09/23 02/08/23 Rx tabs fluticasone propionate 50 2 spray intranasal DAILY 02/09/23 02/09/23 02/08/23 History mcg/actuation nasal spray,suspension lisinopril 20 mg tablet 20 mg PO DAILY 02/09/23 02/09/23 02/08/23 History metoprolol succinate 50 mg 50 mg PO BID 02/09/23 02/09/23 02/08/23 History tablet,extended release 24 hr ropinirole 1 mg tablet 1 mg PO QPM 02/09/23 02/09/23 02/08/23 History Allergies Allergy/AdvReac Type Severity Reaction Status Date / Time latex Allergy Mild Blisters Verified 02/09/23 08:52 petrolatum,white Allergy Mild Blisters Verified 02/09/23 08:52 [From A and D Barrier] amlodipine Allergy Unknown Verified 02/09/23 08:52 PFSH Acute PFSH: Medical History COPD (chronic obstructive pulmonary disease) Severe tobacco use disorder ESRD on hemodialysis History of renal dialysis Chronic kidney disease 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 Intermittent palpitations Hyperlipidemia Hypertension XI (obstructive sleep apnea) DJD (degenerative joint disease) Atrial flutter PVD (peripheral vascular disease) Diabetes Surgical History H/O aortic valve replacement with tissue graft H/O aortic valve replacement H/O foot surgery Family History Grandmother Diabetes Grandfather Diabetes Denies family history of CAD (coronary artery disease) Clotting disorder Dementia Chronic kidney disease (CKD) Suicide Anesthesia complication Bleeding disorder Lung disease Cancer Stroke Social History Smoking and tobacco/nicotine status: current every day tobacco/nicotine user cigarettes Packs smoked per day: 1 Years cigarettes smoked: 46 Alcohol intake: never Substance/Drug Use: never Lives independently: Yes (with girlfriend) Household members: significant other Marital status: Single service: No 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al status: disabled 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 Pets and animals: Yes Special araceli needs: No Agree to transfusion: Yes Physical Exam GI: OTHER: Patient's hernia is in the epigastric area. With Valsalva it significantly enlarges. After he relaxes, very can be reduced completely. There is no evidence of incarcerated herniation on exam. : OTHER: Deferred External rectal exam demonstrates no obvious hemorrhoids or rectal fissure Data 02/09/23 09:20 02/09/23 09:20 CT Abd/Pel: Radiologist's impression: CT abdomen pelvis demonstrated small right effusion, atelectasis right lung, lower lobe. Epigastric hernia with some transverse colon and small bowel with no evidence of obstruction. Sigmoid diverticulosis. A&P Assessment and plan (1) Hematochezia: Patient's hemoglobin was noted to be 6.7 and hematocrit 21.6. Patient was typed and screened in emergency room and will receive 1 unit PRBCs. Serial hemoglobins Repeat hemoglobin 1 hour following transfusion Monitor labs in AM. N.p.o. Surgical consultation He indicates to me he has never had a colonoscopy. (2) Acute hyperkalemia: Potassium noted to be 7.4. Patient received 10 units insulin regular, calcium gluconate, sodium bicarb while in the emergency room. Associated with metabolic acidosis Patient will receive hemodialysis at bedside today. Monitor labs in AM. (3) Macrocytic anemia: MCV 114.3 Check B12 level. TSH has been done recently and is normal. (4) ESRD on hemodialysis: (5) Elevated troponin: Initial troponin 363, delta 2-hour troponin 333. Does report some chest pain 4/10 on pain scale. States chest pain has improved since ER visit. Will continue to trend troponin levels. Blood transfusion is indicated secondary to chest pain as well as anemia. Monitor for improvement. EKG does not have any overtly concerning findings (6) Acute on chronic diastolic (congestive) heart failure: This is secondary to fluid overload from missing dialysis. This may contribute to chest pain. Dialysis will be beneficial in improving congestive heart failure Echocardiogram last month demonstrated preserved EF, 3/4 diastolic dysfunction (7) COPD (chronic obstructive pulmonary disease): (8) Diabetes: Consistent carb diet, when diet is started Qualifiers: Diabetes mellitus complication detail: with other arthropathy Diabetes mellitus complication status: with diabetic arthropathy Diabetes mellitus [employer] insulin use: with nursing home use Diabetes mellitus type: type 2 Qualified Code(s): E11.618 - Type 2 diabetes mellitus with other diabetic arthropathy; Z79.4 - jail (current) use of insulin (9) Hypertension: Awaiting GI bleed to stabilize. Continue metoprolol Qualifiers: Hypertension type: essential hypertension Qualified Code(s): I10 - Essential (primary) hypertension (10) Hyperlipidemia: Qualifiers: Hyperlipidemia type: mixed hyperlipidemia Qualified Code(s): E78.2 - Mixed hyperlipidemia Plan Transaminitis. Likely secondary to hepatic congestion. Repeat LFTs tomorrow after dialysis. Recent hepatitis screening is negative. Plan as stated above. Patient will receive 1 unit PRBCs and we will monitor hyperkalemic state. Labs in AM. Patient wishes to remain full code at this time, if unable to make decisions for his self, Anthony José SON, will make decisions for him. DVT prophylaxis: SCDs, anticoagulation contraindicated secondary to GI bleeding Protonix for GI prophylaxis Attestations Medical Necessity Statement*: Will need greater than 2 midnight stay for evaluation and treatment of GI bleeding, hyperkalemia Critical Care Time: The high probability of a clinically significant, sudden or life threatening deterioration of the patient's [cardiac, hematologic, renal, hepatic, ] system(s) required my full and direct attention, intervention and personal management. The critical care time is as shown. This time is in addition to time spent performing any reported procedures but includes the following: [x] Data and vital sign review and interpretation [x] Patient assessment, examination and intervention [x] Documentation [x] Medication orders and management Critical Care Time (min): 46 Coding Level of Care Code Critical Care >/= 30 minutes Critical care time (in minutes): 46 The high probability of a clinically significant, sudden or life threatening deterioration, as referenced in this documentation, required my full and direct attention, intervention and personal management. The critical care time shown is in addition to time spent performing any reported separately billable procedures and includes the following: [x] Data and vital sign review and interpretation [x] Patient assessment, examination and intervention [x] Medication orders and management [x] Patient/Family updates as able [x] Care Coordination and Documentation. Diagnoses Hematochezia K92.1 Acute hyperkalemia E87.5 Macrocytic anemia D53.9 ESRD on hemodialysis N18.6; Z99.2 Elevated troponin R79.89 Acute on chronic diastolic (congestive) heart failure I50.33 COPD (chronic obstructive pulmonary disease) J44.9 Type 2 diabetes mellitus with other diabetic arthropathy, with long-term current use of insulin E11.618; Z79.4 Diabetes mellitus complication detail: with other arthropathy Diabetes mellitus complication status: with diabetic arthropathy Diabetes mellitus nursing home insulin use: with nursing home use Diabetes mellitus type: type 2 Essential hypertension I10 Hypertension type: essential hypertension Mixed hyperlipidemia E78.2 Hyperlipidemia type: mixed hyperlipidemia
[2023-02-09] MEDS: epoetin alfa 1000 Unit/0.05 mL (ESRD) 20000 UNIT SUBCUT (13:43)
[2023-02-09] MEDS: sodium chloride 0.9% 1,000 ML 100 ML IV (13:44)
[2023-02-09] MEDS: tranexamic acid 1,000 MG/100 ML PREMIX 600 MG IV (13:44)
[2023-02-09] MEDS: ondansetron 2 mg/ML SDV 2 mL 4 MG IVP (14:15)
--- NOTE | 2023-02-09 14:22 | P.CONIM_ITS ---
Providers/Reason For Consult 2 Consulting Physician/Specialty*: General surgery Reason for Consult*: Lower GI bleeding Attending Physician: Leander Zavala MD Primary Care Provider: Christofer Varghese MD History of Present Illness History of Present Illness Richard Huffman is a 62 y/o M With history of heart failure, end-stage renal disease on dialysis, open heart surgery and large ventral hernia containing transverse colon who presents to the emergency department complaining of weakness and bright red blood per rectum. Patient states that is common for him to have some blood in the stool but over the last couple days he has seen increased amount of bright red blood per rectum and therefore decided to come to the ED. Review of Systems 2 General: Reports: 10 or more systems reviewed and unremarkable except in HPI and below Medications/Allergies Home Medications Medication Instructions Recorded Confirmed Last Taken Type aspirin 81 mg chewable tablet 81 mg PO DAILY 01/26/22 02/09/23 02/08/23 History vit B,C-folic ac 800 mcg-zinc 12.5 1 tab PO BEDTIME 01/26/22 02/09/23 02/08/23 History mg-selen-D3 2,000 unit-vit E tablet (RenaPlex-D) cholecalciferol (vitamin D3) 125 125 mcg PO DAILY 05/26/22 02/09/23 02/08/23 History mcg (5,000 unit) capsule hydralazine 50 mg tablet 50 mg PO TID 05/28/22 02/09/23 02/08/23 History oxycodone-acetaminophen 5 mg-325 0.5 - 1 tab PO Q4H PRN Pain 07/15/22 02/09/23 Unknown History mg tablet cyanocobalamin (vitamin B-12) 1,000 mcg PO DAILY 08/25/22 02/09/23 02/08/23 History 1,000 mcg tablet (Vitamin B-12) metolazone 5 mg tablet 5 mg PO QAM 08/25/22 02/09/23 02/08/23 History docusate sodium 100 mg capsule 100 mg PO BID 10/01/22 02/09/23 02/08/23 History (Stool Softener) budesonide 0.5 mg/2 mL suspension 0.5 mg (2 mL) inhalation QPM #60 mL 10/13/22 02/09/23 02/08/23 Rx for nebulization ipratropium 0.5 mg-albuterol 3 mg 3 ml inhalation Q6H PRN Shortness 10/13/22 02/09/23 Unknown Rx (2.5 mg base)/3 mL nebulization Of Breath #180 mL soln Diabetic shoes #1 ea 10/27/22 02/09/23 Unknown Rx albuterol sulfate 90 mcg/actuation 1 inh inhalation QID PRN shortness 12/29/22 02/09/23 Unknown Rx aerosol inhaler (Ventolin HFA) of breath or wheezing #8.5 grams bumetanide 2 mg tablet 2 mg PO DAILY 12/29/22 02/09/23 02/08/23 History doxycycline monohydrate 100 mg 100 mg PO DAILY #90 tabs 12/29/22 02/09/23 02/08/23 Rx tablet escitalopram oxalate 10 mg tablet 10 mg PO DAILY #90 tabs 12/29/22 02/09/23 02/08/23 Rx (Lexapro) tramadol 50 mg tablet 50 mg PO Q6H PRN Pain, Mild 12/29/22 02/09/23 Unknown History amiodarone 200 mg tablet 100 mg (1/2 x 200 mg) PO DAILY #15 01/21/23 02/09/23 02/08/23 Rx tabs fluticasone propionate 50 2 spray intranasal DAILY 02/09/23 02/09/23 02/08/23 History mcg/actuation nasal spray,suspension lisinopril 20 mg tablet 20 mg PO DAILY 02/09/23 02/09/23 02/08/23 History metoprolol succinate 50 mg 50 mg PO BID 02/09/23 02/09/23 02/08/23 History tablet,extended release 24 hr ropinirole 1 mg tablet 1 mg PO QPM 02/09/23 02/09/23 02/08/23 History Allergies Allergy/AdvReac Type Severity Reaction Status Date / Time latex Allergy Mild Blisters Verified 02/09/23 08:52 petrolatum,white Allergy Mild Blisters Verified 02/09/23 08:52 [From A and D Barrier] amlodipine Allergy Unknown Verified 02/09/23 08:52 Current Medications Generic Name Dose Route Start Last Admin Trade Name Freq PRN Reason Stop Dose Admin Sodium Chloride 1,000 mls @ 100 mls/hr 02/09/23 13:03 02/09/23 13:44 Sodium Chloride 0.9% IV 100 mls/hr .Q10H KENNEDY Administration Ondansetron HCl 4 mg 02/09/23 13:03 02/09/23 14:15 Ondansetron 2 Mg/Ml Sdv 2 Ml IVP 4 mg Q6H PRN Administration NAUSEA AND VOMITING PFSH Acute 2 PFSH: Medical History COPD (chronic obstructive pulmonary disease) Severe tobacco use disorder ESRD on hemodialysis History of renal dialysis Chronic kidney disease 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 Intermittent palpitations Hyperlipidemia Hypertension XI (obstructive sleep apnea) DJD (degenerative joint disease) Atrial flutter PVD (peripheral vascular disease) Diabetes Surgical History H/O aortic valve replacement with tissue graft H/O aortic valve replacement H/O foot surgery Family History Grandmother Diabetes Grandfather Diabetes Denies family history of CAD (coronary artery disease) Clotting disorder Dementia Chronic kidney disease (CKD) Suicide Anesthesia complication Bleeding disorder Lung disease Cancer Stroke Social History Smoking and tobacco/nicotine status: current every day tobacco/nicotine user cigarettes Packs smoked per day: 1 Years cigarettes smoked: 46 Alcohol intake: never Substance/Drug Use: never Lives independently: Yes (with girlfriend) Household members: significant other Marital status: Single service: No 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al status: disabled 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 Pets and animals: Yes Special araceli needs: No Agree to transfusion: Yes Vitals/I&O/Wt Last Vital Signs Temp 97.9 F 02/09/23 14:09 Pulse 63 02/09/23 14:09 Resp 16 02/09/23 14:09 BP 148/65 02/09/23 12:20 Pulse Ox 97 02/09/23 14:09 O2 Del Method Room Air 02/09/23 09:55 02/08/23 02/09/23 02/09/23 22:59 06:59 14:59 Intake Total 0 / 0 Balance 0 / 0 Weight last 48 hrs Weight 227 lb 1.218 oz Physical Exam 2 Narrative: Patient appears weak, mildly disoriented Abdominal examination shows Evidence of a very large ventral hernia which appears to be reducible, there is no abdominal tenderness during my examination. Digital rectal examination was deferred at this time as patient is planned for colonoscopy and currently having rectal bleeding. Data 02/09/23 09:20 02/09/23 09:20 Micro: Microbiology 02/09/23 10:20 Blood Culture - Preliminary Blood SPECIMEN COLLECTED 02/09/23 10:13 Blood Culture - Preliminary Blood SPECIMEN COLLECTED A&P Assessment and plan (1) Hematochezia: (2) Macrocytic anemia: (3) Elevated troponin: Plan This is a 62-year-old male with multiple medical comorbidities including end- stage renal disease who presents with lower GI bleeding. After a review of the clinical data, physical examination and history taking the following is my assessment. Patient may benefit from colonoscopy during this hospital stay after initial. With stabilization. At the moment patient requires urgent dialysis as he is creatinine BUN and potassium are extremely elevated. In the interim he will be resuscitated, Eliquis will be held and blood transfusion will be initiated. Once patient is a stable we will proceed with bowel prep and upper and lower endoscopy for evaluation of possible GI bleeding. I have discussed all the risk and benefits of an endoscopy including the risk of perforation of the esophagus stomach duodenum or colon requiring surgical intervention. I have also explained to the patient that he is a very high risk for incomplete colonoscopy due to his ventral hernia. Patient agrees with this and wishes to proceed. -Bowel prep with Dulcolax and GoLytely tomorrow 02/10 -Upper and lower endoscopy planned for . Coding Level of Care Code 82537 Diagnoses Hematochezia K92.1 Macrocytic anemia D53.9 Elevated troponin R79.89
[2023-02-09 15:10] LABS: Vitamin B12 1629 pg/mL (232-1245)
--- NOTE | 2023-02-09 15:27 | ECG_ITS ---
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 Measurements Intervals [place] Rate: 61 P: 148 GA: 234 QRS: -58 QRSD: 182 T: 47 QT: 542 QTc: 546 Interpretive Statements SINUS RHYTHM WITH FIRST DEGREE AV BLOCK LEFT AXIS DEVIATION [QRS AXIS < -30] RIGHT BUNDLE BRANCH BLOCK [120+ ms QRS DURATION, UPRIGHT V1, 40+ ms S IN I/aVL/V4/V5/V6] Compared to ECG 02/09/2023 10:56:24 First degree AV block now present Electronically Signed On 02-09-2023 17:05:43 GAMING DEPARTMENT HEAD by Delfina Miles M.D. [id number]
[2023-02-09] MEDS: ropinirole 1 mg Tablet PO (18:10)
[2023-02-09] MEDS: heparin, porcine 1,000 unit/mL INJ 10 mL 10000 UNIT INTRACATH (18:10)
[2023-02-09 18:22] LABS: Bilirubin Urine Neg (Negative); Blood Urine Neg (Negative); Glucose Urine UA Trace (Normal); Ketones Urine Negative (Negative); Leukocyte Esterase Urine Negative (Negative); Nitrate Urine Negative (Negative); Protein Urine 1+ (Negative); Specific Gravity, Urine 1.015 (1.005-1.030); Urine Appearance Clear (CLEAR); Urine Color Yellow (Yellow); Urobilinogen Urine Norm (Negative); pH Urine 6.5 (5-7)
[2023-02-09 18:23] LABS: Add Urine Microscopic? YES
[2023-02-09 19:14] LABS: RBC Urine 0-4 /hpf (0-2); Squamous Epithelial Cell Urine 0-4 /hpf (0-5); WBC Urine 0-4 /hpf (0-5)
[2023-02-09 19:15] LABS: Add Urine Culture? No
--- NOTE | 2023-02-09 19:50 | P.CONIM_ITS ---
Providers/Reason For Consult 2 Consulting Physician/Specialty*: [facility]/Nephrology Reason for Consult*: ESRD Attending Physician: Leander Zavala MD Primary Care Provider: Christofer Varghese MD History of Present Illness History of Present Illness Richard Huffman is a 62 year old male With past medical history of end-stage renal disease on dialysis per [facility] schedule, COPD, history of CHF, hypertension, diabetes, sleep apnea, atrial flutter presented to the emergency department due to weakness as well as tightness in the chest and shortness of breath. He also reported hematochezia. He was on Eliquis at home. In the emergency department he was noted to have a hemoglobin of 6.7 chest x-ray showed small right pleural effusion and cardiomegaly. CT abdomen pelvis showed no obstruction no and no other acute findings. Patient was given medical management for hyperkalemia and admitted to ICU. Review of Systems 2 Narrative: Other review of systems negative Medications/Allergies Home Medications Medication Instructions Recorded Confirmed Last Taken Type aspirin 81 mg chewable tablet 81 mg PO DAILY 01/26/22 02/09/23 02/08/23 History vit B,C-folic ac 800 mcg-zinc 12.5 1 tab PO BEDTIME 01/26/22 02/09/23 02/08/23 History mg-selen-D3 2,000 unit-vit E tablet (RenaPlex-D) cholecalciferol (vitamin D3) 125 125 mcg PO DAILY 05/26/22 02/09/23 02/08/23 History mcg (5,000 unit) capsule hydralazine 50 mg tablet 50 mg PO TID 05/28/22 02/09/23 02/08/23 History oxycodone-acetaminophen 5 mg-325 0.5 - 1 tab PO Q4H PRN Pain 07/15/22 02/09/23 Unknown History mg tablet cyanocobalamin (vitamin B-12) 1,000 mcg PO DAILY 08/25/22 02/09/23 02/08/23 History 1,000 mcg tablet (Vitamin B-12) metolazone 5 mg tablet 5 mg PO QAM 08/25/22 02/09/23 02/08/23 History docusate sodium 100 mg capsule 100 mg PO BID 10/01/22 02/09/23 02/08/23 History (Stool Softener) budesonide 0.5 mg/2 mL suspension 0.5 mg (2 mL) inhalation QPM #60 mL 10/13/22 02/09/23 02/08/23 Rx for nebulization ipratropium 0.5 mg-albuterol 3 mg 3 ml inhalation Q6H PRN Shortness 10/13/22 02/09/23 Unknown Rx (2.5 mg base)/3 mL nebulization Of Breath #180 mL soln Diabetic shoes #1 ea 10/27/22 02/09/23 Unknown Rx albuterol sulfate 90 mcg/actuation 1 inh inhalation QID PRN shortness 12/29/22 02/09/23 Unknown Rx aerosol inhaler (Ventolin HFA) of breath or wheezing #8.5 grams bumetanide 2 mg tablet 2 mg PO DAILY 12/29/22 02/09/23 02/08/23 History doxycycline monohydrate 100 mg 100 mg PO DAILY #90 tabs 12/29/22 02/09/23 02/08/23 Rx tablet escitalopram oxalate 10 mg tablet 10 mg PO DAILY #90 tabs 12/29/22 02/09/23 02/08/23 Rx (Lexapro) tramadol 50 mg tablet 50 mg PO Q6H PRN Pain, Mild 12/29/22 02/09/23 Unknown History amiodarone 200 mg tablet 100 mg (1/2 x 200 mg) PO DAILY #15 01/21/23 02/09/23 02/08/23 Rx tabs fluticasone propionate 50 2 spray intranasal DAILY 02/09/23 02/09/23 02/08/23 History mcg/actuation nasal spray,suspension lisinopril 20 mg tablet 20 mg PO DAILY 02/09/23 02/09/23 02/08/23 History metoprolol succinate 50 mg 50 mg PO BID 02/09/23 02/09/23 02/08/23 History tablet,extended release 24 hr ropinirole 1 mg tablet 1 mg PO QPM 02/09/23 02/09/23 02/08/23 History Allergies Allergy/AdvReac Type Severity Reaction Status Date / Time latex Allergy Mild Blisters Verified 02/09/23 08:52 petrolatum,white Allergy Mild Blisters Verified 02/09/23 08:52 [From A and D Barrier] amlodipine Allergy Unknown Verified 02/09/23 08:52 Current Medications Generic Name Dose Route Start Last Admin Trade Name Freq PRN Reason Stop Dose Admin Hydralazine HCl 50 mg 02/09/23 15:00 02/09/23 15:43 Hydralazine 50 Mg Tablet PO Not Given TID KENNEDY Sodium Chloride 1,000 mls @ 100 mls/hr 02/09/23 13:03 02/09/23 13:44 Sodium Chloride 0.9% IV 100 mls/hr .Q10H KENNEDY Administration Metoprolol Succinate 50 mg 02/09/23 18:00 02/09/23 18:08 Metoprolol Succinate Er (24 Hr) 50 Mg Tablet PO Not Given BID KENNEDY Ondansetron HCl 4 mg 02/09/23 13:03 02/09/23 14:15 Ondansetron 2 Mg/Ml Sdv 2 Ml IVP 4 mg Q6H PRN Administration NAUSEA AND VOMITING Ropinirole HCl 1 mg 02/09/23 18:00 02/09/23 18:10 Ropinirole 1 Mg Tablet PO 1 mg QPM KENNEDY Administration PFSH Acute 2 PFSH: Medical History COPD (chronic obstructive pulmonary disease) Severe tobacco use disorder ESRD on hemodialysis History of renal dialysis Chronic kidney disease 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 Intermittent palpitations Hyperlipidemia Hypertension XI (obstructive sleep apnea) DJD (degenerative joint disease) Atrial flutter PVD (peripheral vascular disease) Diabetes Surgical History H/O aortic valve replacement with tissue graft H/O aortic valve replacement H/O foot surgery Family History Grandmother Diabetes Grandfather Diabetes Denies family history of CAD (coronary artery disease) Clotting disorder Dementia Chronic kidney disease (CKD) Suicide Anesthesia complication Bleeding disorder Lung disease Cancer Stroke Social History Smoking and tobacco/nicotine status: current every day tobacco/nicotine user cigarettes Packs smoked per day: 1 Years cigarettes smoked: 46 Alcohol intake: never Substance/Drug Use: never Lives independently: Yes (with girlfriend) Household members: significant other Marital status: Single service: No 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al status: disabled 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 Pets and animals: Yes Special araceli needs: No Agree to transfusion: Yes Vitals/I&O/Wt Last Vital Signs Temp 97.9 F 02/09/23 18:35 Pulse 68 02/09/23 19:00 Resp 16 02/09/23 19:00 BP 133/51 02/09/23 19:00 Pulse Ox 97 02/09/23 19:00 O2 Del Method Room Air 02/09/23 19:00 02/09/23 02/09/23 02/09/23 06:59 14:59 22:59 Intake Total 200 / 200 450 / 650 Output Total 200 / 200 Balance 200 / 200 250 / 450 Weight last 48 hrs Weight 109.911 kg Weight 103 kg Physical Exam 2 Narrative: Awake, alert, no acute distress S1-S2 regular rate and rhythm per report Lungs clear per report Has edema Data 02/10/23 05:35 02/10/23 05:35 Micro: Microbiology 02/09/23 10:20 Blood Culture - Preliminary Blood SPECIMEN COLLECTED 02/09/23 10:13 Blood Culture - Preliminary Blood SPECIMEN COLLECTED A&P Assessment and plan (1) ESRD on hemodialysis: Plan 1. End-stage renal disease: On MWF schedule as outpatient, missed dialysis on Wednesday, plan for HD today due to hyperkalemia and minimal ultrafiltration due to GI bleed 2. Hyperkalemia: HD as above on low potassium diet 3. Anemia: Due to GI bleed and anemia of chronic disease. Will order [place], general surgery consulted for EGD. 4. History of atrial flutter 5. History of COPD 6. History of hypertension: Blood pressure controlled Patient evaluated using audiovisual cart. Time spent 40 minutes. Consult Attestations 2 Medical Necessity Statement: Per medicine team Coding Level of Care Code Acute Code for Chg Fwd Diagnoses ESRD on hemodialysis N18.6; Z99.2
[2023-02-09 20:55] LABS: Hematocrit 19.4 % (37-53)
[2023-02-09 21:15] LABS: Troponin 5 6HR Delta -55.1 ng/L (0-12)
[2023-02-09 21:18] LABS: Troponin 5 6HR 307.9 ng/L (0-15)
--- NOTE | 2023-02-09 21:21 | PC.NURSE ---
Post-transfusion hemoglobin of 6.3. Dr. Michael ordered to transfuse one unit PRBC.
[2023-02-09] MEDS: hyDRALAzine 50 mg Tablet PO (21:36)
[2023-02-09] MEDS: sodium chloride 0.9% 100 mL Bag 50 ML IV (22:12)
[2023-02-09] MEDS: ipratropium-albuterol 3 mL Neb INHALATION (23:47)
--- NOTE | 2023-02-09 23:52 | PC.NURSE ---
Patient became short of breath approximately 10 minutes ago. Patient's lungs clear to auscultation. VSS. No other s/s of transfusion reaction or fluid overload. RT in room to assess patient and give breathing treatment. After breathing treatment, patient states that he feels better.
[2023-02-10] VITALS (34 sets, daily range): BP systolic 93–160; BP diastolic 48–84; PULSE 63–86; RESP 13–27; TEMP 36.7–36.8; O2SAT 91–100
--- NOTE | 2023-02-10 00:21 | PC.NURSE ---
Placed SCDs on patient. When rounding on patient, patient had them off and stated I couldn't handle those anymore.
[2023-02-10] MEDS: sodium chloride 0.9% 1,000 ML 100 ML IV (01:22)
[2023-02-10] MEDS: ipratropium-albuterol 3 mL Neb INHALATION ×4 (03:11→21:33)
[2023-02-10 06:00] LABS: Basophils # 0.1 10^3/uL (0.0-0.1); Basophils % 0.6 %; Eosinophils % 0.3 %; Lymphocytes # 1.2 10^3/uL (0.8-4.8); Lymphocytes % 14.5 %; Mean Corpuscular HGB Conc 31.8 g/dL (30-55); Mean Corpuscular Hemoglobin 32.9 pg (27-33); Mean Platelet Volume 10.1 fL (7.4-10.4); Monocytes # 0.9 10^3/uL (0.2-0.9); Monocytes % 11.1 %; Neutrophils # 5.77 10^3/uL (1.8-7.7); Neutrophils % 72.7 %; Nucleated Red Blood Cells # 0.1 /100WBC; Nucleated Red Blood Cells % 1.1 %; Platelet Count 130 10^3/cmm (157-399); Red Blood Count 2.13 10^6/uL (3.85-5.65); Red Cell Distribution Width 23.4 % (12.1-15.1); White Blood Count 7.93 10^3/uL (3.29-11.43)
[2023-02-10 06:14] LABS: Mean Corpuscular Volume 103.3 fl (82-101)
[2023-02-10 06:18] LABS: Alanine Aminotransferase 371 U/L (0-41); Albumin Level 3.3 g/dL (3.5-5.2); Alkaline Phosphatase 155 U/L (40-130); Anion Gap 23.8 (5-19); Aspartate Amino Transferase 424 U/L (0-40); Blood Urea Nitrogen 61 mg/dL (8-23); Calcium 8.7 mg/dL (8.5-10.5); Carbon Dioxide 25 mmol/L (22-29); Chloride 96 mmol/L (98-107); Glomerular Filtration Rate 8.6 mL/min (90-130); Glucose 95 mg/dL (65-115); Magnesium 2.2 mg/dL (1.7-2.3); Osmolality Calculated 307 mOsm/kg (285-295); Potassium 4.8 mmol/L (3.5-5.1); Sodium 140 mmol/L (136-145); Total Bilirubin 0.7 mg/dL (0.15-1.2); Total Protein 5.3 g/dL (6.6-8.7)
--- NOTE | 2023-02-10 06:27 | PC.NURSE ---
Dr. Michael notified of hemoglobin of 7 this morning. Notified that second unit of PRBC was given last night per his order.
--- NOTE | 2023-02-10 07:36 | PM.PN ---
Documented by User: karla Dickerson 02/10/23 10:47 Subjective Subjective: Patient was evaluated this morning while lying in bed on room air. Patient reports that he feels overall better than emergency room admission on 02/09. Reports weakness has improved and was able to stand with assistance by nursing this morning. Does report that he was able to urinate without difficulty in urinal. Does report that he is hungry and would like to eat today but will remain NPO for endoscopy on 02/11. Medications: Reviewed: Yes Vitals/I&O/Wt Last Vital Signs Temp 98.0 F 02/10/23 00:42 Pulse 86 02/10/23 06:00 Resp 23 H 02/10/23 06:00 BP 152/68 02/10/23 06:00 Pulse Ox 95 02/10/23 06:00 O2 Del Method Room Air 02/10/23 02:00 02/09/23 02/10/23 02/10/23 22:59 06:59 14:59 Intake Total 1601.667 / 1801.667 355 / 2156.667 Output Total 2200 / 2200 Balance -598.333 / -398.333 355 / -43.333 Weight last 48 hrs Weight 105.959 kg Weight 105.6 kg Weight 109.911 kg Weight 103 kg Physical Exam Const: COMMON NORMALS: patient oriented x3 and alert GENERAL APPEARANCE: ill appearing HENMT: COMMON NORMALS: normocephalic HEAD & SCALP: normocephalic Eye: OTHER: Deferred Neck/C-Spine: COMMON NORMALS: full ROM, no lymphadenopathy and no JVD Chest: COMMONS NORMALS: normal inspection of the chest Resp: OTHER: Expiratory wheeze has improved but still slightly present. normal respiratory effort. Cardio: COMMON NORMALS: no JVD and regular rhythm RHYTHM: regular rhythm HEART SOUNDS: Murmur heart sound present PERIPHERAL PULSES: radial pulses present positive bilateral 2+ and dorsalis pedis present positive bilateral 1+ GI: COMMON NORMALS: Soft to palpation and No hepatosplenomegaly present INSPECTION: Yes other (Epigastric hernia medial) AUSCULTATION: Yes normoactive bowel sounds PALPATION: Yes Soft to palpation, Yes Tenderness to palpation present (GI) Details: RLQ and Yes No hepatosplenomegaly present RECTAL EXAM: Yes visual inspection normal OTHER: Epigastric hernia present Back/Pelvis: OTHER: 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 Cyanosis to bilateral lower extremity (PVD). Data 02/10/23 05:35 02/10/23 05:35 Other Labs: Leukocytosis resolved at 7.93 this morning. Hemoglobin 7, hematocrit 22, MCV 103.3. Potassium 4.8, anion gap 23.8, BUN 61, creatinine 6.6, AST 424, ALT 371, alk phos 155. Micro: Microbiology 02/09/23 10:20 Blood Culture - Preliminary Blood SPECIMEN COLLECTED 02/09/23 10:13 Blood Culture - Preliminary Blood SPECIMEN COLLECTED A&P Assessment and plan (1) Hematochezia: Patient's hemoglobin post 1 unit PRBCs transfusion was 6.3 and hematocrit 19.4. Patient received an additional unit of PRBCs at 2119. Labs this a.m. 02/10 revealed hemoglobin 7.0 and hematocrit 22. Transfuse 1 Unit PRBCs. Check PT/INR. Serial hemoglobins Monitor labs in AM. N.p.o. after midnight General surgery consultation. Recommendations appreciated. Plan for bowel prep with Dulcolax and GoLytely today 02/10. Plan for upper and lower endoscopy for 02/11. (2) Acute hyperkalemia: Potassium this a.m. 02/10 revealed 4.8. Resolved Monitor labs in AM. (3) Transaminitis: Likely due to hepatic congestion. AST 424, ALT 371 Will obtain Liver US today. (4) Macrocytic anemia: MCV 103.3 this a.m. Vitamin B12 1629. (5) ESRD on hemodialysis: ICU bedside hemodialysis performed yesterday 02/09. BUN 61 and creatinine 6.6. Plan for bedside hemodialysis tomorrow 02/11. (6) Elevated troponin: 6-hour troponin 307.9. Patient denies any chest pain at this time. Patient did receive 2 units PRBCs 02/10. EKG does not display any concerning findings. Continue to monitor EKG rhythm and chest pain indication. (7) Acute on chronic diastolic (congestive) heart failure: Patient received bedside ICU hemodialysis yesterday. Reports improvement. Stable (8) COPD (chronic obstructive pulmonary disease): Remains stable at this time. Patient is on room air and vital signs within normal limits. (9) Diabetes: Consistent carb diet, when diet is started Remains n.p.o. at this time for lower GI procedure tomorrow Qualifiers: Diabetes mellitus complication detail: with other arthropathy Diabetes mellitus complication status: with diabetic arthropathy Diabetes mellitus jail insulin use: with jail use Diabetes mellitus type: type 2 Qualified Code(s): E11.618 - Type 2 diabetes mellitus with other diabetic arthropathy; Z79.4 - [facility] (current) use of insulin (10) Hypertension: Awaiting GI bleed to stabilize. Stable Qualifiers: Hypertension type: essential hypertension Qualified Code(s): I10 - Essential (primary) hypertension (11) Hyperlipidemia: Qualifiers: Hyperlipidemia type: mixed hyperlipidemia Qualified Code(s): E78.2 - Mixed hyperlipidemia Plan Plan as stated above. Continue to trend labs. Plan for bowel prep today, Dulcolax and GoLytely, upper lower endoscopy with general surgery tomorrow 02/11/2023. Transfuse 1 unit PRBC today. Patient is stable to move out of ICU today to [facility]. CODE STATUS: Full code DVT prophylaxis: On hold due to GI bleed Coding Level of Care Code 49837 Diagnoses Hematochezia K92.1 Acute hyperkalemia E87.5 Transaminitis R74.01 Macrocytic anemia D53.9 ESRD on hemodialysis N18.6; Z99.2 Elevated troponin R79.89 Acute on chronic diastolic (congestive) heart failure I50.33 COPD (chronic obstructive pulmonary disease) J44.9 Type 2 diabetes mellitus with other diabetic arthropathy, with long-term current use of insulin E11.618; Z79.4 Diabetes mellitus complication detail: with other arthropathy Diabetes mellitus complication status: with diabetic arthropathy 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 Patient received an additional unit of PRBCs at 2119. Labs this a.m. 02/10 revealed hemoglobin 7.0 and hematocrit 22. Transfuse 1 Unit PRBCs. Check hemoglobin 30 minutes to 1 hour following transfusion Check PT/INR. Monitor labs in AM. N.p.o. after midnight General surgery consultation. Recommendations appreciated. Plan for bowel prep with Dulcolax and GoLytely today 02/10. Plan for upper and lower endoscopy for 02/11. (2) Acute hyperkalemia: (3) Transaminitis: Thought this was likely due to liver congestion but he did not improve with dialysis. AST 424, ALT 371 Will obtain Liver US today. INR slightly high. Will give vitamin K, recheck tomorrow Always a possibility amiodarone could cause hepatitis. Hold amiodarone today, reassess liver test tomorrow. (4) Macrocytic anemia: (5) ESRD on hemodialysis: (6) Elevated troponin: (7) Acute on chronic diastolic (congestive) heart failure: (8) COPD (chronic obstructive pulmonary disease): (9) Diabetes: Consistent carb diet, when diet is started Clear liquids, n.p.o. 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 (10) Hypertension: Qualifiers: Hypertension type: essential hypertension Qualified Code(s): I10 - Essential (primary) hypertension (11) Hyperlipidemia: Qualifiers: Hyperlipidemia type: mixed hyperlipidemia Qualified Code(s): E78.2 - Mixed hyperlipidemia Attestations Medical Necessity Statement*: Needs continued hospitalization for close monitoring, transfusion of blood in this patient with lower GI bleeding to undergo endoscopy soon Diagnoses Hematochezia K92.1 Acute hyperkalemia E87.5 Transaminitis R74.01 Macrocytic anemia D53.9 ESRD on hemodialysis N18.6; Z99.2 Elevated troponin R79.89 Acute on chronic diastolic (congestive) heart failure I50.33 COPD (chronic obstructive pulmonary disease) J44.9 Type 2 diabetes mellitus with other diabetic arthropathy, with long-term current use of insulin E11.618; Z79.4 Diabetes mellitus complication detail: with other arthropathy Diabetes mellitus complication status: with diabetic arthropathy 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
[2023-02-10 07:51] LABS: Glucose Point of Care 102 mg/dL (70-110)
--- NOTE | 2023-02-10 08:30 | US_ITS ---
WS: [id number] ULTRASOUND ABDOMEN LIMITED CLINICAL INFORMATION: elevated LFT's COMPARISON: None. FINDINGS: Liver Size: Enlarged Craniocaudal length: 16.7 cm. Echogenicity: Coarse Surface nodularity: None. Mass (size and location): None. Bile ducts Intrahepatic ducts: Normal. Common bile duct diameter: 0.4 cm. Gallbladder Normal. Gallstones: None. Gallbladder sludge: None. Gallbladder wall thickening: None. Pericholecystic fluid: None. Sonographic Haywood sign: Absent. Pancreas Marked fatty atrophy Right kidney: Normal. Hydronephrosis: None. Size: 10.5 cm x 4.8 cm x 4.3 cm. Abdominal aorta and IVC Visualized portions are normal. Ascites: None. IMPRESSION: 1. Mild hepatomegaly with diffuse fatty infiltration. 2. Normal gallbladder and common bile duct. 3. No hydronephrosis in the RIGHT kidney. 4. Marked fatty atrophy of the pancreas as seen on the recent CT.
[2023-02-10 09:11] LABS: INR 1.42 (0.8-1.2)
--- NOTE | 2023-02-10 09:14 | PC.SOCIAL ---
IMM Update Pg.2 of IMM Updated and reviewed with patient. Copy provided to patient, initialed and dated copy in chart.
[2023-02-10] MEDS: metoprolol succinate ER (24 HR) 50 mg Tablet PO ×2 (10:17→17:43)
[2023-02-10] MEDS: peg /e-lyte soln 4,000 mL Btl 4000 ML PO (10:17)
[2023-02-10] MEDS: doxycycline 100 mg Tablet PO (10:17)
[2023-02-10] MEDS: hyDRALAzine 50 mg Tablet PO ×3 (10:18→20:24)
[2023-02-10] MEDS: escitalopram 10 mg Tablet PO (10:18)
[2023-02-10] MEDS: bisacodyl 5 mg Tablet 10 MG PO (10:18)
[2023-02-10] MEDS: pantoprazole 40 mg SDV IVP (10:18)
[2023-02-10 12:07] LABS: Glucose Point of Care 103 mg/dL (70-110)
[2023-02-10] MEDS: phytonadione (ADULT) 10 mg/mL Ampule 1 mL SUBCUT (13:01)
--- NOTE | 2023-02-10 14:52 | P.PN_ITS ---
Subjective 2 Subjective: S/P hd YESTERDAY Medications: Reviewed: Yes Vitals/I&O/Wt Last Vital Signs Temp 98.0 F 02/10/23 00:42 Pulse 66 02/10/23 14:17 Resp 17 02/10/23 14:08 BP 135/71 02/10/23 12:00 Pulse Ox 96 02/10/23 14:08 O2 Del Method Room Air 02/10/23 14:08 02/09/23 02/10/23 02/10/23 22:59 06:59 14:59 Intake Total 1601.667 / 1801.667 355 / 2156.667 Output Total 2200 / 2200 200 / 200 Balance -598.333 / -398.333 355 / -43.333 -200 / -200 Weight last 48 hrs Weight 105.959 kg Weight 105.6 kg Weight 109.911 kg Weight 103 kg Physical Exam 2 Narrative: Awake, alert, no acute distress S1-S2 regular rate and rhythm per report Lungs clear per report Has edema Data 02/10/23 05:35 02/10/23 05:35 Micro: Microbiology 02/09/23 10:20 Blood Culture - Preliminary Blood NEGATIVE TO DATE 02/09/23 10:13 Blood Culture - Preliminary Blood NEGATIVE TO DATE A&P Assessment and plan (1) ESRD on hemodialysis: Plan 1. End-stage renal disease: On MWF schedule as outpatient, missed dialysis on Wednesday, s/p HD yesterday due to hyperkalemia and minimal ultrafiltration due to GI bleed, Next HD tomorrow 2. Hyperkalemia: HD as above on low potassium diet 3. Anemia: Due to GI bleed and anemia of chronic disease. Ordered SALENA, Plan for EGD and C scope on 02/11 4. History of atrial flutter 5. History of COPD 6. History of hypertension: Blood pressure controlled Patient evaluated using audiovisual cart. Time spent 40 minutes. Attestations 2 Medical Necessity Statement*: per medicien team Coding Level of Care Code Acute Code for Chg Fwd Diagnoses ESRD on hemodialysis N18.6; Z99.2
--- NOTE | 2023-02-10 14:59 | P.PN_ITS ---
Subjective 2 Subjective: Patient has remained hemodynamically stable over the last 24 hours. Denies any further bowel movements with blood since admission. Vitals/I&O/Wt Last Vital Signs Temp 98.0 F 02/10/23 00:42 Pulse 66 02/10/23 14:17 Resp 17 02/10/23 14:08 BP 135/71 02/10/23 12:00 Pulse Ox 96 02/10/23 14:08 O2 Del Method Room Air 02/10/23 14:08 02/09/23 02/10/23 02/10/23 22:59 06:59 14:59 Intake Total 1601.667 / 1801.667 355 / 2156.667 Output Total 2200 / 2200 200 / 200 Balance -598.333 / -398.333 355 / -43.333 -200 / -200 Weight last 48 hrs Weight 233 lb 9.6 oz Weight 232 lb 12.93 oz Weight 242 lb 5 oz Weight 227 lb 1.218 oz Physical Exam 2 GI: OTHER: Abdomen soft, nontender, nondistended, hernia remains reducible. On the perianal margin there is minimal amount of blood residue, digital rectal exam is deferred for colonoscopy tomorrow. Data 02/10/23 05:35 02/10/23 05:35 Micro: Microbiology 02/09/23 10:20 Blood Culture - Preliminary Blood NEGATIVE TO DATE 02/09/23 10:13 Blood Culture - Preliminary Blood NEGATIVE TO DATE A&P Assessment and plan (1) Transaminitis: (2) Hematochezia: Plan Patient has remained stable, after discussion with medical team I will proceed with endoscopy for evaluation. I have offered the patient an upper and lower endoscopy. All the risk and benefits of the procedure have been discussed including the risk of perforation of the esophagus stomach duodenum or colon requiring surgical intervention, I explained the patient that he is a very high risk for incomplete colonoscopy due to hernia which may difficult the navigation of the transverse colon. Patient is aware and wishes to proceed. We will start bowel prep today with GoLytely and Dulcolax. Due to patient end-stage renal disease I will avoid mag citrate for his prep. Colonoscopy and upper endoscopy will be scheduled for tomorrow morning. Attestations 2 Medical Necessity Statement*: Patient will likely require 48 to 72 hours of hospital stay for management of lower GI bleeding and multiple comorbidities. Coding Level of Care Code Acute Code for Chg Fwd Diagnoses Transaminitis R74.01 Hematochezia K92.1
[2023-02-10 15:19] LABS: Hematocrit 26.3 % (37-53)
[2023-02-10] MEDS: epoetin alfa 1000 Unit/0.05 mL (ESRD) 20000 UNIT SUBCUT (16:03)
[2023-02-10] MEDS: ropinirole 1 mg Tablet PO (17:43)
[2023-02-10 22:04] LABS: Glucose Point of Care 98 mg/dL (70-110)
[2023-02-11] VITALS (14 sets, daily range): BP systolic 90–160; BP diastolic 44–79; PULSE 64–87; RESP 15–18; TEMP 36.4–37; O2SAT 92–99
[2023-02-11 05:44] LABS: Basophils # 0.1 10^3/uL (0.0-0.1); Basophils % 0.7 %; Eosinophils # 0.1 10^3/uL (0.0-0.8); Eosinophils % 0.7 %; Hematocrit 25.5 % (37-53); Lymphocytes # 1.2 10^3/uL (0.8-4.8); Lymphocytes % 17.5 %; Mean Corpuscular HGB Conc 31.8 g/dL (30-55); Mean Corpuscular Hemoglobin 33.2 pg (27-33); Mean Corpuscular Volume 104.5 fl (82-101); Mean Platelet Volume 9.9 fL (7.4-10.4); Monocytes # 0.7 10^3/uL (0.2-0.9); Monocytes % 9.9 %; Neutrophils # 4.71 10^3/uL (1.8-7.7); Neutrophils % 69.9 %; Nucleated Red Blood Cells % 0.6 %; Platelet Count 106 10^3/cmm (157-399); Red Blood Count 2.44 10^6/uL (3.85-5.65); White Blood Count 6.75 10^3/uL (3.29-11.43)
[2023-02-11 06:00] LABS: INR 1.19 (0.8-1.2)
[2023-02-11 06:13] LABS: Alanine Aminotransferase 390 U/L (0-41); Albumin Level 3.5 g/dL (3.5-5.2); Alkaline Phosphatase 148 U/L (40-130); Anion Gap 27.4 (5-19); Aspartate Amino Transferase 314 U/L (0-40); Blood Urea Nitrogen 72 mg/dL (8-23); Calcium 8.2 mg/dL (8.5-10.5); Carbon Dioxide 19 mmol/L (22-29); Chloride 97 mmol/L (98-107); Glomerular Filtration Rate 6.9 mL/min (90-130); Glucose 98 mg/dL (65-115); Osmolality Calculated 309 mOsm/kg (285-295); Potassium 4.4 mmol/L (3.5-5.1); Sodium 139 mmol/L (136-145); Total Bilirubin 0.7 mg/dL (0.15-1.2); Total Protein 5.5 g/dL (6.6-8.7)
[2023-02-11 06:44] LABS: Glucose Point of Care 104 mg/dL (70-110)
--- NOTE | 2023-02-11 06:51 | W.PM.OPSFHP ---
Same Day Surgery H&P Indication for Procedure/HPI DATE OF PROCEDURE: February 11, 2023 CHIEF COMPLAINT/INDICATIONFOR SURGICAL PROCEDURE: GI Bleeding PREOP DIAGNOSIS: GI Bleeding PLANNED PROCEDURE: Operation Date: 02/11/23 10:30 Proposed Procedures p EGD(Not Applicable) - Giovanni Arroyo MD s Colonoscopy(Not Applicable) - Giovanni Arroyo MD Medications/Allergies* Home Medications Medication Instructions Recorded Confirmed Type aspirin 81 mg chewable tablet 81 mg PO DAILY 01/26/22 02/09/23 History vit B,C-folic ac 800 mcg-zinc 12.5 1 tab PO BEDTIME 01/26/22 02/09/23 History mg-selen-D3 2,000 unit-vit E tablet (RenaPlex-D) cholecalciferol (vitamin D3) 125 125 mcg PO DAILY 05/26/22 02/09/23 History mcg (5,000 unit) capsule hydralazine 50 mg tablet 50 mg PO TID 05/28/22 02/09/23 History oxycodone-acetaminophen 5 mg-325 0.5 - 1 tab PO Q4H PRN Pain 07/15/22 02/09/23 History mg tablet cyanocobalamin (vitamin B-12) 1,000 mcg PO DAILY 08/25/22 02/09/23 History 1,000 mcg tablet (Vitamin B-12) metolazone 5 mg tablet 5 mg PO QAM 08/25/22 02/09/23 History docusate sodium 100 mg capsule 100 mg PO BID 10/01/22 02/09/23 History (Stool Softener) bumetanide 2 mg tablet 2 mg PO DAILY 12/29/22 02/09/23 History tramadol 50 mg tablet 50 mg PO Q6H PRN Pain, Mild 12/29/22 02/09/23 History fluticasone propionate 50 2 spray intranasal DAILY 02/09/23 02/09/23 History mcg/actuation nasal spray,suspension lisinopril 20 mg tablet 20 mg PO DAILY 02/09/23 02/09/23 History metoprolol succinate 50 mg 50 mg PO BID 02/09/23 02/09/23 History tablet,extended release 24 hr ropinirole 1 mg tablet 1 mg PO QPM 02/09/23 02/09/23 History Allergies/Adverse Reactions Allergy/AdvReac Type Severity Reaction Status Date / Time latex Allergy Mild Blisters Verified 02/09/23 08:52 petrolatum,white Allergy Mild Blisters Verified 02/09/23 08:52 [From A and D Barrier] amlodipine Allergy Unknown Verified 02/09/23 08:52 Current Medications: Generic Name Dose Route Start Last Admin Trade Name Freq PRN Reason Stop Dose Admin Albuterol/Ipratropium 3 ml 02/09/23 20:00 02/11/23 03:03 Ipratropium-Albuterol 3 Ml Neb INHALATION Not Given Q6H.RESP KENNEDY Doxycycline Monohydrate 100 mg 02/10/23 09:00 02/10/23 10:17 Doxycycline 100 Mg Tablet PO 100 mg DAILY KENNEDY Administration Protocol Escitalopram Oxalate 10 mg 02/10/23 09:00 02/10/23 10:18 Escitalopram 10 Mg Tablet PO 10 mg DAILY KENNEDY Administration Hydralazine HCl 50 mg 02/09/23 15:00 02/10/23 20:24 Hydralazine 50 Mg Tablet PO 50 mg TID KENNEDY Administration Sodium Chloride 1,000 mls @ 30 mls/hr 02/10/23 09:15 02/10/23 10:19 Sodium Chloride 0.9% IV 02/11/23 09:14 Not Given .Q24H ONE Metoprolol Succinate 50 mg 02/09/23 18:00 02/10/23 17:43 Metoprolol Succinate Er (24 Hr) 50 Mg Tablet PO 50 mg BID KENNEDY Administration Ondansetron HCl 4 mg 02/09/23 13:03 02/09/23 14:15 Ondansetron 2 Mg/Ml Sdv 2 Ml IVP 4 mg Q6H PRN Administration NAUSEA AND VOMITING Pantoprazole Sodium 40 mg 02/10/23 09:00 02/10/23 10:18 Pantoprazole 40 Mg Sdv IVP 40 mg DAILY KENNEDY Administration Ropinirole HCl 1 mg 02/09/23 18:00 02/10/23 17:43 Ropinirole 1 Mg Tablet PO 1 mg QPM KENNEDY Administration Pertinent History/Comorbid Conditions* Medical History (Updated 02/10/23 @ 07:57 by karla Dickerson) COPD (chronic obstructive pulmonary disease) Severe tobacco use disorder ESRD on hemodialysis History of renal dialysis Chronic kidney disease 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 Intermittent palpitations Hyperlipidemia Hypertension XI (obstructive sleep apnea) DJD (degenerative joint disease) Atrial flutter PVD (peripheral vascular disease) Diabetes Surgical History (Updated 04/28/19 @ 10:32 by Bertin Tierney MD) H/O aortic valve replacement with tissue graft H/O aortic valve replacement H/O foot surgery Family History (Updated 07/31/20 @ 10:09 by Marta Price RN) Diabetes Grandmother Grandfather Denies family history of CAD (coronary artery disease) Clotting disorder Dementia Chronic kidney disease (CKD) Suicide Anesthesia complication Bleeding disorder Lung disease Cancer Stroke Social History Smoking and tobacco/nicotine status: current every day tobacco/nicotine user cigarettes Packs smoked per day: 1 Years cigarettes smoked: 46 Alcohol intake: never Substance/Drug Use: never Lives independently: Yes (with girlfriend) Household members: significant other Marital status: Single service: No 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al status: disabled 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
[2023-02-11] MEDS: ipratropium-albuterol 3 mL Neb INHALATION ×2 (07:44→20:36)
[2023-02-11] MEDS: pantoprazole 40 mg SDV IVP (08:23)
[2023-02-11] MEDS: doxycycline 100 mg Tablet PO (08:23)
[2023-02-11] MEDS: hyDRALAzine 50 mg Tablet PO ×3 (08:23→21:09)
[2023-02-11] MEDS: metoprolol succinate ER (24 HR) 50 mg Tablet PO ×2 (08:23→17:19)
[2023-02-11] MEDS: escitalopram 10 mg Tablet PO (08:23)
--- NOTE | 2023-02-11 10:28 | P.ANESASSM_ITS ---
Pre-Anesthetic Assessment Height/Weight: Height 1.75 m Weight 105.959 kg Temp Pulse Resp BP Pulse Ox O2 Del Method 98.3 F 87 18 149/71 98 Room Air 02/11/23 07:31 02/11/23 07:50 02/11/23 07:45 02/11/23 07:31 02/11/23 07:45 02/11/23 07:45 Preop Diagnosis: GI Bleeding Operation Date: 02/11/23 10:30 Proposed Procedures p EGD(Not Applicable) - Giovanni Arroyo MD s Colonoscopy(Not Applicable) - Giovanni Arroyo MD Was Beta Jeanne taken within 24 hours: N/A Was Clonidine taken within 24 hours: N/A Last intake: Intake Last Liquid Date 02/10/23 Last Solid Date 02/07/23 Social Tobacco 1 pack(s) per day 20 plus pack years Exam alert and oriented x 3 Airway Submandibular: within normal limits Cervical ROM: within normal limits Mallampati: Class II Dentition: other (missing teeth; denies any loose teeth) History/ROS No significant history except as noted Pulmonary Chronic Obstructive Pulmonary Disease and Sleep Apnea CV/HEM Atrial Fibrillation (aflutter), Stable Angina, Hypertension and Murmur (hx of AVR x2) Chronic Renal Failure (hemodialysis- Wednesday) Hepatic None reported GI Gastroesophageal Reflux Disease and Hiatal Hernia Metabolic Diabetes [place] [facility] [place] None reported Neuropsych None reported Parkinson's Anesthetic Plan ASA status: 3 Anesthesia: MAC Risk of > 500 ml blood loss (7ml/kg in children): No Medications/Allergies Home Medications Medication Instructions Recorded Confirmed Last Taken Type aspirin 81 mg chewable tablet 81 mg PO DAILY 01/26/22 02/09/23 02/08/23 History vit B,C-folic ac 800 mcg-zinc 12.5 1 tab PO BEDTIME 01/26/22 02/09/23 02/08/23 History mg-selen-D3 2,000 unit-vit E tablet (RenaPlex-D) cholecalciferol (vitamin D3) 125 125 mcg PO DAILY 05/26/22 02/09/23 02/08/23 History mcg (5,000 unit) capsule hydralazine 50 mg tablet 50 mg PO TID 05/28/22 02/09/23 02/08/23 History oxycodone-acetaminophen 5 mg-325 0.5 - 1 tab PO Q4H PRN Pain 07/15/22 02/09/23 Unknown History mg tablet cyanocobalamin (vitamin B-12) 1,000 mcg PO DAILY 08/25/22 02/09/23 02/08/23 History 1,000 mcg tablet (Vitamin B-12) metolazone 5 mg tablet 5 mg PO QAM 08/25/22 02/09/23 02/08/23 History docusate sodium 100 mg capsule 100 mg PO BID 10/01/22 02/09/23 02/08/23 History (Stool Softener) budesonide 0.5 mg/2 mL suspension 0.5 mg (2 mL) inhalation QPM #60 mL 10/13/22 02/09/23 02/08/23 Rx for nebulization ipratropium 0.5 mg-albuterol 3 mg 3 ml inhalation Q6H PRN Shortness 10/13/22 02/09/23 Unknown Rx (2.5 mg base)/3 mL nebulization Of Breath #180 mL soln Diabetic shoes #1 ea 10/27/22 02/09/23 Unknown Rx albuterol sulfate 90 mcg/actuation 1 inh inhalation QID PRN shortness 12/29/22 02/09/23 Unknown Rx aerosol inhaler (Ventolin HFA) of breath or wheezing #8.5 grams bumetanide 2 mg tablet 2 mg PO DAILY 12/29/22 02/09/23 02/08/23 History doxycycline monohydrate 100 mg 100 mg PO DAILY #90 tabs 12/29/22 02/09/23 02/08/23 Rx tablet escitalopram oxalate 10 mg tablet 10 mg PO DAILY #90 tabs 12/29/22 02/09/23 02/08/23 Rx (Lexapro) tramadol 50 mg tablet 50 mg PO Q6H PRN Pain, Mild 12/29/22 02/09/23 Unknown History amiodarone 200 mg tablet 100 mg (1/2 x 200 mg) PO DAILY #15 01/21/23 02/09/23 02/08/23 Rx tabs fluticasone propionate 50 2 spray intranasal DAILY 02/09/23 02/09/23 02/08/23 History mcg/actuation nasal spray,suspension lisinopril 20 mg tablet 20 mg PO DAILY 02/09/23 02/09/23 02/08/23 History metoprolol succinate 50 mg 50 mg PO BID 02/09/23 02/09/23 02/08/23 History tablet,extended release 24 hr ropinirole 1 mg tablet 1 mg PO QPM 02/09/23 02/09/23 02/08/23 History Allergies Allergy/AdvReac Type Severity Reaction Status Date / Time latex Allergy Mild Blisters Verified 02/09/23 08:52 petrolatum,white Allergy Mild Blisters Verified 02/09/23 08:52 [From A and D Barrier] amlodipine Allergy Unknown Verified 02/09/23 08:52 Current Medications Generic Name Dose Route Start Last Admin Trade Name Freq PRN Reason Stop Dose Admin Albuterol/Ipratropium 3 ml 02/09/23 20:00 02/11/23 07:44 Ipratropium-Albuterol 3 Ml Neb INHALATION 3 ml Q6H.RESP KENNEDY Administration Doxycycline Monohydrate 100 mg 02/10/23 09:00 02/11/23 08:23 Doxycycline 100 Mg Tablet PO 100 mg DAILY KENNEDY Administration Protocol Escitalopram Oxalate 10 mg 02/10/23 09:00 02/11/23 08:23 Escitalopram 10 Mg Tablet PO 10 mg DAILY KENNEDY Administration Hydralazine HCl 50 mg 02/09/23 15:00 02/11/23 08:23 Hydralazine 50 Mg Tablet PO 50 mg TID KENNEDY Administration Metoprolol Succinate 50 mg 02/09/23 18:00 02/11/23 08:23 Metoprolol Succinate Er (24 Hr) 50 Mg Tablet PO 50 mg BID KENNEDY Administration Ondansetron HCl 4 mg 02/09/23 13:03 02/09/23 14:15 Ondansetron 2 Mg/Ml Sdv 2 Ml IVP 4 mg Q6H PRN Administration NAUSEA AND VOMITING Pantoprazole Sodium 40 mg 02/10/23 09:00 02/11/23 08:23 Pantoprazole 40 Mg Sdv IVP 40 mg DAILY KENNEDY Administration Ropinirole HCl 1 mg 02/09/23 18:00 02/10/23 17:43 Ropinirole 1 Mg Tablet PO 1 mg QPM KENNEDY Administration PFSH Anesthesia Medical History COPD (chronic obstructive pulmonary disease) Severe tobacco use disorder ESRD on hemodialysis History of renal dialysis Chronic kidney disease 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 Intermittent palpitations Hyperlipidemia Hypertension XI (obstructive sleep apnea) DJD (degenerative joint disease) Atrial flutter PVD (peripheral vascular disease) Diabetes Surgical History H/O aortic valve replacement with tissue graft H/O aortic valve replacement H/O foot surgery Family History Grandmother Diabetes Grandfather Diabetes Denies family history of CAD (coronary artery disease) Clotting disorder Dementia Chronic kidney disease (CKD) Suicide Anesthesia complication Bleeding disorder Lung disease Cancer Stroke Social History Smoking and tobacco/nicotine status: current every day tobacco/nicotine user cigarettes Packs smoked per day: 1 Years cigarettes smoked: 46 Alcohol intake: never Substance/Drug Use: never Lives independently: Yes (with girlfriend) Household members: significant other Marital status: Single service: No 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al status: disabled 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 Pets and animals: Yes Special araceli needs: No Agree to transfusion: Yes Data Anesthesia 02/11/23 05:16 02/11/23 05:16 Short CBC 02/09/23 02/10/23 02/10/23 Range/Units 20:41 05:35 15:08 WBC 7.93 (3.29-11.43) 10^3/uL Hgb 6.30 L* 7.00 L 8.40 L (11.27-16.99) g/dL Hct 19.4 L* 22.0 L 26.3 L (37-53) % MCV 103.3 H D (82-101) fl Plt Count 130 L D (157-399) 10^3/cmm Neut % (Auto) 72.7 % Neut # (Auto) 5.77 (1.8-7.7) 10^3/uL 02/11/23 Range/Units 05:16 WBC 6.75 (3.29-11.43) 10^3/uL Hgb 8.10 L (11.27-16.99) g/dL Hct 25.5 L (37-53) % MCV 104.5 H (82-101) fl Plt Count 106 L (157-399) 10^3/cmm Neut % (Auto) 69.9 % Neut # (Auto) 4.71 (1.8-7.7) 10^3/uL BMP 02/10/23 02/11/23 05:35 05:16 Sodium 140 139 Potassium 4.8 4.4 Chloride 96 L 97 L Carbon Dioxide 25 19 L BUN 61 H 72 H Creatinine 6.6 H* 8.0 H* Glucose 95 98 Calcium 8.7 8.2 L Cardiac Enzymes 02/09/23 02/09/23 Range/Units 11:33 20:41 Troponin T 120 Minute 333.9 H (0-15) ng/L Delta Troponin T -29.1 L (0-10) ABS# Troponin T Hi Sens 6Hr 307.9 H (0-15) ng/L Troponin T Hi Sens 6Hr Delta -55.1 L (0-12) ng/L Liver Function 02/10/23 02/11/23 Range/Units 05:35 05:16 Total Bilirubin 0.7 0.7 (0.15-1.2) mg/dL AST 424 H 314 H (0-40) U/L ALT 371 H 390 H (0-41) U/L Alkaline Phosphatase 155 H 148 H (40-130) U/L Albumin 3.3 L 3.5 (3.5-5.2) g/dL Urine 02/09/23 Range/Units 18:00 Urine Color Yellow (Yellow) Urine Appearance Clear (CLEAR) Urine pH 6.5 (5-7) Ur Specific [place] 1.015 (1.005-1.030) Urine Protein 1+ H (Negative) Urine Glucose (UA) Trace H (Normal) Urine Ketones Negative (Negative) Urine Nitrate Negative (Negative) Urine Bilirubin Neg (Negative) Ur Leukocyte Esterase Negative (Negative) Urine RBC 0-4 H (0-2) /hpf Urine WBC 0-4 H (0-5) /hpf Blood Bank 02/09/23 10:13 Blood Type O Positive Rho(D) Type Rh positive Antibody Screen Negative Coags 02/10/23 02/11/23 05:35 05:16 PT 17.80 H 15.50 H INR 1.42 H 1.19 ABG 02/09/23 10:43 Specimen Type Arterial Sample Site Radial, right ABG pH 7.28 L ABG pCO2 26.6 L ABG pO2 89.0 ABG PO2/FiO2 Ratio 0 ABG HCO3 12.6 L ABG O2 Saturation 96.6 ABG Base Excess -12.9 L A-a O2 Gradient 3.6 L O2 Delivery Device Room air FiO2 21.0 Microbiology 02/09/23 10:20 Blood Culture - Preliminary Blood NEGATIVE TO DATE 02/09/23 10:13 Blood Culture - Preliminary Blood NEGATIVE TO DATE Cardiac Studies: 2 Echocardiogram 12/14/22
[2023-02-11] MEDS: sodium chloride 0.9% 1,000 ML 30 ML IV (10:35)
--- NOTE | 2023-02-11 11:08 | P.PN_ITS ---
Subjective 2 Subjective: plan for EGD , C scope today Medications: Reviewed: Yes Vitals/I&O/Wt Last Vital Signs Temp 98.3 F 02/11/23 07:31 Pulse 87 02/11/23 07:50 Resp 18 02/11/23 07:45 BP 149/71 02/11/23 07:31 Pulse Ox 98 02/11/23 07:45 O2 Del Method Room Air 02/11/23 07:45 02/10/23 02/11/23 02/11/23 22:59 06:59 14:59 Intake Total 1960 / 1960 Output Total 300 / 500 Balance 1660 / 1460 Weight last 48 hrs Weight 105.959 kg Weight 105.6 kg Weight 109.911 kg Physical Exam 2 Narrative: Awake, alert, no acute distress S1-S2 regular rate and rhythm per report Lungs clear per report Has edema Data 02/11/23 05:16 02/11/23 05:16 Micro: Microbiology 02/09/23 10:20 Blood Culture - Preliminary Blood NEGATIVE TO DATE 02/09/23 10:13 Blood Culture - Preliminary Blood NEGATIVE TO DATE A&P Assessment and plan (1) ESRD on hemodialysis: Plan 1. End-stage renal disease: On MWF schedule as outpatient, missed dialysis on Wednesday, s/p HD yesterday due to hyperkalemia and minimal ultrafiltration due to GI bleed, Next HD tomorrow 2. Hyperkalemia: HD as above on low potassium diet 3. Anemia: Due to GI bleed and anemia of chronic disease. Ordered SALENA, Plan for EGD and C scope on 02/11 4. History of atrial flutter 5. History of COPD 6. History of hypertension: Blood pressure controlled Patient evaluated using audiovisual cart. Time spent 40 minutes. Attestations 2 Medical Necessity Statement*: per medicine team Coding Level of Care Code Acute Code for Chg Fwd Diagnoses ESRD on hemodialysis N18.6; Z99.2
--- NOTE | 2023-02-11 11:26 | PM.PN ---
Documented by User: AIDE Edward STD 02/11/23 13:44 Subjective Subjective: Patient sitting up on side of bed this am on room air. He completed bowel prep for EGD and colonoscopy this morning. Patient did report blood in his stool with bowel prep overnight. Patient denies shortness of breath, and chest pain. Medications: Reviewed: Yes Vitals/I&O/Wt Last Vital Signs Temp 98.6 F 02/11/23 11:13 Pulse 78 02/11/23 11:13 Resp 18 02/11/23 11:13 BP 90/44 02/11/23 11:13 Pulse Ox 95 02/11/23 11:13 O2 Del Method Room Air 02/11/23 11:13 02/10/23 02/11/23 02/11/23 22:59 06:59 14:59 Intake Total 1960 / 1960 200 / 200 Output Total 300 / 500 Balance 1660 / 1460 200 / 200 Weight last 48 hrs Weight 233 lb 9.6 oz Weight 232 lb 12.93 oz Weight 242 lb 5 oz Physical Exam Const: COMMON NORMALS: no acute distress, patient oriented x3 and alert ORIENTATION/CONSCIOUSNESS: Yes oriented to person, Yes oriented to place and Yes oriented to time Neck/C-Spine: COMMON NORMALS: no lymphadenopathy, supple and no JVD Chest: COMMONS NORMALS: normal inspection of the chest Resp: COMMON NORMALS: normal respiratory effort, No use of accessory muscles and clear to auscultation bilaterally AUSCULTATION: clear to auscultation bilaterally Cardio: COMMON NORMALS: no JVD GI: COMMON NORMALS: Soft to palpation INSPECTION: Yes visible herniation AUSCULTATION: Yes normoactive bowel sounds PALPATION: Yes Soft to palpation RECTAL EXAM: Yes hemorrhoids OTHER: Epigastric hernia present(medial) Back/Pelvis: OTHER: Lower playback operator on palpation Neuro: COMMON NORMALS: patient oriented x3 and moves all extremities SENSORIUM/ORIENTATION: Yes alert, Yes oriented to person, Yes oriented to place and Yes oriented to time Skin: OTHER: no wounds noted, temporary dialysis catheter present on admission. Data 02/11/23 05:16 02/11/23 05:16 Micro: Microbiology 02/09/23 10:20 Blood Culture - Preliminary Blood NEGATIVE TO DATE 02/09/23 10:13 Blood Culture - Preliminary Blood NEGATIVE TO DATE A&P Assessment and plan (1) Hematochezia: Patient's hemoglobin 8.10 was and hematocrit was 25.5 02/11, improving. Will continue to monitor, CBC ordered. (2) Transaminitis: Ultrasounds of liver 02/10 showed mild hepatomegaly with diffuse fatty infiltration. LFTs improved today with AST 314 and ALT 390. Will continue to monitor, BMP ordered. (3) COPD (chronic obstructive pulmonary disease): Stable during this morning rounds, patient on room air. Vital signs noted to be within normal limits. (4) Elevated troponin: Patient denies chest pain this morning Continue to monitor EKG rhythm Patient placed on telemetry (5) Diabetes: Consistent carb diet, after EGD today. Qualifiers: Diabetes mellitus complication detail: with other arthropathy Diabetes mellitus complication status: with diabetic arthropathy Diabetes mellitus adjunct faculty for medical terminology insulin use: with adjunct faculty for medical terminology use Diabetes mellitus type: type 2 Qualified Code(s): E11.618 - Type 2 diabetes mellitus with other diabetic arthropathy; Z79.4 - adjunct faculty for medical terminology (current) use of insulin (6) ESRD on hemodialysis: Bedside Dialysis scheduled for tomorrow BUN and Creatinine (7) Acute on chronic diastolic (congestive) heart failure: Patient to get bedside dialysis tomorrow 12/1n per Dr. Downing. Patient lungs sound clear to auscultation, on RA. Denies coughing anything up. Bilateral lower extremity edema noted to be 2+ this morning. Coding Level of Care Code 69458 Diagnoses Hematochezia K92.1 Transaminitis R74.01 COPD (chronic obstructive pulmonary disease) J44.9 Elevated troponin R79.89 Type 2 diabetes mellitus with other diabetic arthropathy, with long-term current use of insulin E11.618; Z79.4 Diabetes mellitus complication detail: with other arthropathy Diabetes mellitus complication status: with diabetic arthropathy Diabetes mellitus mcfp insulin use: with mcfp use Diabetes mellitus type: type 2 ESRD on hemodialysis N18.6; Z99.2 Acute on chronic diastolic (congestive) heart failure I50.33 Time Spent (min) 24 Documented by User: Leander Zavala MD 02/11/23 13:45 Data 02/11/23 05:16 02/11/23 05:16 Other Labs: EGD was performed today, which demonstrated only hiatal hernia. Colonoscopy performed demonstrated hemorrhoids external and intrascrotal as well as diverticulosis. No significant blood was noted in the lumen. A&P Assessment and plan (1) Hematochezia: Patient's hemoglobin 8.10 was and hematocrit was 25.5 02/11, improving. Will continue to monitor, CBC ordered. EGD and colonoscopy were performed. Colonoscopy was not complete as could not go through transverse colon secondary to patient's hernia. No specific etiology/ongoing bleeding was found. Potential sources of bleeding were internal and external hemorrhoids as well as diverticuli. Surgery recommends attempt at complete colonoscopy by GI in the future. Avoid anticoagulants Repeat hemoglobin tomorrow Potential discharge tomorrow Patient received 2 units of packed red blood cells on February 09 secondary to symptomatic anemia. INR corrected completely with vitamin K. (2) Transaminitis: Ultrasounds of liver 02/10 showed mild hepatomegaly with diffuse fatty infiltration. LFTs improved today with AST 314 and ALT 390. Will continue to monitor, BMP ordered. Concerned amiodarone may have caused his elevation in liver testing. Amiodarone was discontinued. I have visited with cardiology briefly regarding this and they will follow-up in clinic. Continue metoprolol for rate control in this patient with history of atrial fibrillation (3) COPD (chronic obstructive pulmonary disease): (4) Elevated troponin: (5) Diabetes: Qualifiers: Diabetes mellitus complication detail: with other arthropathy Diabetes mellitus complication status: with diabetic arthropathy Diabetes mellitus adjunct faculty for medical terminology insulin use: with mcfp use Diabetes mellitus type: type 2 Qualified Code(s): E11.618 - Type 2 diabetes mellitus with other diabetic arthropathy; Z79.4 - adjunct faculty for medical terminology (current) use of insulin (6) ESRD on hemodialysis: (7) Acute on chronic diastolic (congestive) heart failure: Patient to get bedside dialysis tomorrow 12/1n per Dr. Downing. Patient lungs sound clear to auscultation, on RA. Denies coughing anything up. Bilateral lower extremity edema noted to be 2+ this morning. He appears compensated currently Plan Multiple other medical problems as outlined in past medical history Full code SCDs for DVT prophylaxis. Anticoagulation contraindicated secondary to GI bleeding. Attestations Medical Necessity Statement*: Patient needs continued close monitoring secondary to GI bleeding, with anemia requiring transfusion Diagnoses Hematochezia K92.1 Transaminitis R74.01 COPD (chronic obstructive pulmonary disease) J44.9 Elevated troponin R79.89 Type 2 diabetes mellitus with other diabetic arthropathy, with long-term current use of insulin E11.618; Z79.4 Diabetes mellitus complication detail: with other arthropathy Diabetes mellitus complication status: with diabetic arthropathy Diabetes mellitus mcfp insulin use: with adjunct faculty for medical terminology use Diabetes mellitus type: type 2 ESRD on hemodialysis N18.6; Z99.2 Acute on chronic diastolic (congestive) heart failure I50.33 Time Spent (min) 24
--- NOTE | 2023-02-11 11:55 | ANE.PACU2 ---
Inpatient post-anesthesia follow up: Airway intact: Yes Vital signs: Temperature 98.6 F Pulse Rate 80 Respiratory Rate 18 Blood Pressure 118/66 Pulse Oximetry 92 Oxygen Delivery Me thod Room Air Oxygen Flow Rate Fraction of Inspir ed Oxygen Hydration adequate: Yes Nausea and vomiting: No Pain level: 1 Mental status: Baseline
[2023-02-11] MEDS: heparin, porcine 1,000 unit/mL INJ 10 mL 10000 UNIT INTRACATH (12:00)
[2023-02-11 16:55] LABS: Glucose Point of Care 91 mg/dL (70-110)
[2023-02-11] MEDS: ropinirole 1 mg Tablet PO (17:19)
[2023-02-11] MEDS: epoetin alfa 1000 Unit/0.05 mL (ESRD) 20000 UNIT SUBCUT (17:19)
[2023-02-11 21:20] LABS: Glucose Point of Care 122 mg/dL (70-110)
[2023-02-12] VITALS (14 sets, daily range): BP systolic 106–157; BP diastolic 59–79; PULSE 64–78; RESP 16–18; TEMP 36.9–37.1; O2SAT 93–100
[2023-02-12] MEDS: ipratropium-albuterol 3 mL Neb INHALATION ×3 (01:39→14:41)
[2023-02-12 05:50] LABS: Basophils # 0.1 10^3/uL (0.0-0.1); Basophils % 0.8 %; Eosinophils # 0.1 10^3/uL (0.0-0.8); Eosinophils % 1.1 %; Hematocrit 25.3 % (37-53); Lymphocytes # 1.1 10^3/uL (0.8-4.8); Lymphocytes % 17.6 %; Mean Corpuscular HGB Conc 30.8 g/dL (30-55); Mean Corpuscular Hemoglobin 33.2 pg (27-33); Mean Corpuscular Volume 107.7 fl (82-101); Mean Platelet Volume 10.1 fL (7.4-10.4); Monocytes # 0.8 10^3/uL (0.2-0.9); Monocytes % 13.2 %; Neutrophils # 4.08 10^3/uL (1.8-7.7); Neutrophils % 66.3 %; Nucleated Red Blood Cells # 0.1 /100WBC; Nucleated Red Blood Cells % 1.5 %; Platelet Count 86 10^3/cmm (157-399); Red Blood Count 2.35 10^6/uL (3.85-5.65); Red Cell Distribution Width 23.8 % (12.1-15.1); White Blood Count 6.15 10^3/uL (3.29-11.43)
[2023-02-12 06:17] LABS: Alanine Aminotransferase 392 U/L (0-41); Albumin Level 3.3 g/dL (3.5-5.2); Alkaline Phosphatase 140 U/L (40-130); Anion Gap 20.1 (5-19); Aspartate Amino Transferase 284 U/L (0-40); Blood Urea Nitrogen 39 mg/dL (8-23); Calcium 8.5 mg/dL (8.5-10.5); Carbon Dioxide 24 mmol/L (22-29); Chloride 96 mmol/L (98-107); Globulin 2.1 g/dL (1.3-4.6); Glomerular Filtration Rate 10.9 mL/min (90-130); Glucose 113 mg/dL (65-115); Osmolality Calculated 292 mOsm/kg (285-295); Potassium 4.1 mmol/L (3.5-5.1); Sodium 136 mmol/L (136-145); Total Bilirubin 0.7 mg/dL (0.15-1.2); Total Protein 5.4 g/dL (6.6-8.7)
[2023-02-12 06:28] LABS: Glucose Point of Care 124 mg/dL (70-110)
[2023-02-12] MEDS: pantoprazole DR 40 mg Tablet PO (10:07)
[2023-02-12] MEDS: doxycycline 100 mg Tablet PO (10:07)
[2023-02-12] MEDS: metoprolol succinate ER (24 HR) 50 mg Tablet PO (10:08)
[2023-02-12] MEDS: escitalopram 10 mg Tablet PO (10:08)
[2023-02-12] MEDS: hyDRALAzine 50 mg Tablet PO (10:08)
[2023-02-12 10:57] LABS: Glucose Point of Care 168 mg/dL (70-110)
[2023-02-12] MEDS: sodium chloride 0.9% 100 mL Bag 50 ML IV (11:02)
[2023-02-12] MEDS: heparin, porcine 1,000 unit/mL INJ 10 mL 1000 UNIT IV (11:36)
--- NOTE | 2023-02-12 12:01 | PM.PN ---
Subjective Subjective: feels better Medications: Reviewed: Yes Vitals/I&O/Wt Last Vital Signs Temp 98.7 F 02/12/23 11:42 Pulse 68 02/12/23 11:42 Resp 17 02/12/23 11:42 BP 145/70 02/12/23 11:42 Pulse Ox 96 02/12/23 11:42 O2 Del Method Room Air 02/12/23 11:42 02/11/23 02/12/23 02/12/23 22:59 06:59 14:59 Intake Total 860 / 1180 480 / 480 Output Total 3014 / 3014 Balance -2154 / -1834 480 / 480 Weight last 48 hrs Weight 105.885 kg Weight 105.1 kg Physical Exam Narrative: Awake, alert, no acute distress S1-S2 regular rate and rhythm per report Lungs clear per report Has edema Data 02/12/23 05:33 02/12/23 05:33 A&P Assessment and plan (1) ESRD on hemodialysis: Plan 1. End-stage renal disease: On [facility] schedule as outpatient, missed dialysis on Wednesday, s/p HD yesterday , HD again today and can DC AFTER hd TODAY 2. Hyperkalemia: HD as above on low potassium diet 3. Anemia: Due to GI bleed and anemia of chronic disease. Ordered SALENA, S/P EGD and C scope 4. History of atrial flutter 5. History of COPD 6. History of hypertension: Blood pressure controlled Patient evaluated using audiovisual cart. Time spent 40 minutes. Attestations Medical Necessity Statement*: PER MEDICIEN TEAM Coding Level of Care Code Acute Code for Chg Fwd Diagnoses ESRD on hemodialysis N18.6; Z99.2
--- NOTE | 2023-02-12 12:47 | PC.SOCIAL ---
IMM Update pg 2 of IMM updated and reviewed w/ patient. Copy provided and copy dated, initialed and placed in chart.
[2023-02-12] MEDS: epoetin alfa 1000 Unit/0.05 mL (ESRD) 20000 UNIT IVP (13:15)
--- NOTE | 2023-02-12 15:08 | P.DS_ITS ---
Discharge Providers Date of Admission: 02/09/23 12:33 Date of Discharge: February 12, 2023 Attending Provider at Admission: Leander Zavala MD Attending Provider at Discharge: Leander Zavala MD Primary Care Provider: Christofer Varghese MD Diagnoses at Discharge Discharge Diagnosis (1) ESRD on hemodialysis: Status: Acute Reason for Visit Reason for Visit: tightness in chest, sob, cp Hospital Course Hospital Course Richard is a 62-year-old white male who presents to the hospital complaining of blood in his stool. He was found to be significantly anemic with a hemoglobin of 6.3. CT abdomen pelvis did not delineate any cause of bleeding. Diverticulosis was noted. An epigastric hernia with transverse and small bowel: Nonobstructed was also noted. He was transfused 2 units of packed red blood cells and placed in the hospital for close monitoring for any further bleeding. Surgery was consulted for EGD and colonoscopy, and he underwent preparation for this. Procedures occurred on February 11, and demonstrated a hiatal hernia but no evidence of bleeding on upper endoscopy. Lower endoscopy demonstrated internal and external hemorrhoids, diverticulosis, and inability to proceed past the transverse colon secondary to his hernia. Following this he was closely observed, meal advanced, and he had no further significant bleeding off aspirin. He was discharged off aspirin follow-up with his primary care provider in 3 to 5 days. They will consider putting him back on aspirin at that time. I discussed with his primary care provider possible pill endoscopy in the future. He will follow-up with surgery in their clinic after endoscopy in 1 to 2 weeks. He was given blood prior to discharge as his hemoglobin had drifted down to 7.8. He had no evidence of active bleeding at that time and is also chronically anemic from his renal disease. He was given opportunity ask questions, and agreed with the plan. Physical Exam Narrative: General exam no distress Neck is supple Cardiovascular regular rate and rhythm Lungs clear Abdomen is soft, hernia easily noted and easily reducible Extremities no cyanosis clubbing or edema Discharge Data Studies Completed and Pending Completed Studies During Hospitalization Category Date Time Status CT abdomen pelvis wo con [id number] Stat Cat Scan 02/09/23 09:55 Completed XR chest 1V portable [id number] Stat Exams 02/09/23 08:49 Completed US gall bladder [id number] Routine Ultrasound 02/10/23 08:30 Completed Pending at discharge Category Date Time Status Blood Culture Stat Lab 02/09/23 10:20 Results Radiology Impressions Chest X-Ray 02/09/23 08:49 IMPRESSION: 1. Interval decreased perihilar interstitial opacities. This may represent improved pulmonary edema. Small right pleural effusion. 2. Unchanged cardiomegaly. Laboratory Results WBC 6.15 10^3/uL (3.29-11.43) 02/12/23 05:33 RBC 2.35 10^6/uL (3.85-5.65) L 02/12/23 05:33 Hgb 7.80 g/dL (11.27-16.99) L 02/12/23 05:33 Hct 25.3 % (37-53) L 02/12/23 05:33 MCV 107.7 fl (82-101) H 02/12/23 05:33 MCH 33.2 pg (27-33) H 02/12/23 05:33 MCHC 30.8 g/dL (30-55) 02/12/23 05:33 RDW 23.8 % (12.1-15.1) H 02/12/23 05:33 Plt Count 86 10^3/cmm (157-399) L 02/12/23 05:33 MPV 10.1 fL (7.4-10.4) 02/12/23 05:33 Neut % (Auto) 66.3 % 02/12/23 05:33 Lymph % (Auto) 17.6 % 02/12/23 05:33 [place] % (Auto) 13.2 % 02/12/23 05:33 Eos % (Auto) 1.1 % 02/12/23 05:33 Baso % (Auto) 0.8 % 02/12/23 05:33 Neut # (Auto) 4.08 10^3/uL (1.8-7.7) 02/12/23 05:33 Lymph # (Auto) 1.1 10^3/uL (0.8-4.8) 02/12/23 05:33 [place] # (Auto) 0.8 10^3/uL (0.2-0.9) 02/12/23 05:33 Eos # (Auto) 0.1 10^3/uL (0.0-0.8) 02/12/23 05:33 Baso # (Auto) 0.1 10^3/uL (0.0-0.1) 02/12/23 05:33 Nucleated RBC % (auto) 1.5 % 02/12/23 05:33 Nucleated RBCs # 0.1 /100WBC 02/12/23 05:33 PT 15.50 SECONDS (12.1-14.9) H 02/11/23 05:16 INR 1.19 (0.8-1.2) 02/11/23 05:16 Specimen Type Arterial 02/09/23 10:43 Sample Site Radial, right 02/09/23 10:43 ABG pH 7.28 (7.35-7.45) L 02/09/23 10:43 ABG pCO2 26.6 mmHg (35-45) L 02/09/23 10:43 ABG pO2 89.0 mmHg (80.0-100.0) 02/09/23 10:43 ABG PO2/FiO2 Ratio 0 02/09/23 10:43 ABG HCO3 12.6 mmol/L (22-26) L 02/09/23 10:43 ABG O2 Saturation 96.6 02/09/23 10:43 ABG Base Excess -12.9 mmol/L (-2.0-2.0) L 02/09/23 10:43 Kash Test Pos 02/09/23 10:43 A-a O2 Gradient 3.6 mmHg (5-10) L 02/09/23 10:43 Hematocrit 17.6 % (42-52) L 02/09/23 10:43 Hgb O2 Saturation 93.2 % (95-100) L 02/09/23 10:43 Carboxyhemoglobin 2.6 %THgb (0.4-20.1) 02/09/23 10:43 Methemoglobin 0.9 % (0.4-1.5) 02/09/23 10:43 Total Hemoglobin 5.7 g/dL (14-18) L 02/09/23 10:43 Sodium 133.0 mmol/L (131-143) 02/09/23 10:43 Potassium 7.1 mmol/L (3.5-5.0) H 02/09/23 10:43 Glucose 169.0 mg/dL (70-115) H 02/09/23 10:43 Ionized Calcium 1.1 mmol/L (1.1-1.4) 02/09/23 10:43 O2 Delivery Device Room air 02/09/23 10:43 FiO2 21.0 % 02/09/23 10:43 Failure Analysis Engineer ID [place] 02/09/23 10:43 Sodium 136 mmol/L (136-145) 02/12/23 05:33 Potassium 4.1 mmol/L (3.5-5.1) 02/12/23 05:33 Chloride 96 mmol/L (98-107) L 02/12/23 05:33 Carbon Dioxide 24 mmol/L (22-29) 02/12/23 05:33 Anion Gap 20.1 (5-19) H 02/12/23 05:33 BUN 39 mg/dL (8-23) H 02/12/23 05:33 Creatinine 5.4 mg/dL (0.7-1.2) H 02/12/23 05:33 GFR Calculation 10.9 mL/min (90-130) L 02/12/23 05:33 Glucose 113 mg/dL (65-115) 02/12/23 05:33 POC Glucose 168 mg/dL (70-110) H 02/12/23 10:53 Calculated Osmolality 292 mOsm/kg (285-295) 02/12/23 05:33 Calcium 8.5 mg/dL (8.5-10.5) 02/12/23 05:33 Magnesium 2.2 mg/dL (1.7-2.3) 02/10/23 05:35 Total Bilirubin 0.7 mg/dL (0.15-1.2) 02/12/23 05:33 AST 284 U/L (0-40) H 02/12/23 05:33 ALT 392 U/L (0-41) H 02/12/23 05:33 Alkaline Phosphatase 140 U/L (40-130) H 02/12/23 05:33 Troponin T Baseline 363 ng/L (0-15) H* 02/09/23 09:20 Troponin T 120 Minute 333.9 ng/L (0-15) H 02/09/23 11:33 Delta Troponin T -29.1 ABS# (0-10) L 02/09/23 11:33 Troponin T Hi Sens 6Hr 307.9 ng/L (0-15) H 02/09/23 20:41 Troponin T Hi Sens 6Hr Delta -55.1 ng/L (0-12) L 02/09/23 20:41 Total Protein 5.4 g/dL (6.6-8.7) L 02/12/23 05:33 Albumin 3.3 g/dL (3.5-5.2) L 02/12/23 05:33 Globulin 2.1 g/dL (1.3-4.6) 02/12/23 05:33 Vitamin B12 1629 pg/mL (232-1245) H 02/09/23 09:20 Urine Color Yellow (Yellow) 02/09/23 18:00 Urine Appearance Clear (CLEAR) 02/09/23 18:00 Urine pH 6.5 (5-7) 02/09/23 18:00 Ur Specific [place] 1.015 (1.005-1.030) 02/09/23 18:00 Urine Protein 1+ (Negative) H 02/09/23 18:00 Urine Glucose (UA) Trace (Normal) H 02/09/23 18:00 Urine Ketones Negative (Negative) 02/09/23 18:00 Urine Blood Neg (Negative) 02/09/23 18:00 Urine Nitrate Negative (Negative) 02/09/23 18:00 Urine Bilirubin Neg (Negative) 02/09/23 18:00 Urine Urobilinogen Norm mg/dL (Negative) 02/09/23 18:00 Ur Leukocyte Esterase Negative (Negative) 02/09/23 18:00 Urine RBC 0-4 /hpf (0-2) H 02/09/23 18:00 Urine WBC 0-4 /hpf (0-5) H 02/09/23 18:00 Ur Squamous Epith Cells 0-4 /hpf (0-5) H 02/09/23 18:00 Amorphous Sediment Not Reportable 02/09/23 18:00 Urine Bacteria None /hpf (NONE) 02/09/23 18:00 Urine Mucus None /hpf 02/09/23 18:00 Serum Ketones Negative (Negative) 02/09/23 09:20 Hep Bs Antigen Non-reactive (Nonreactive) 02/09/23 09:20 Hep Bs Antibody 25.6 (11.5-1000) 02/09/23 09:20 Blood Type O Positive 02/09/23 10:13 Rho(D) Type Rh positive 02/09/23 10:13 Antibody Screen Negative 02/09/23 10:13 Crossmatch See Detail 02/09/23 10:13 Vitals Last Vital Signs Temp 98.7 F 02/12/23 11:42 Pulse 72 02/12/23 14:00 Resp 16 02/12/23 14:00 BP 145/70 02/12/23 11:42 Pulse Ox 97 02/12/23 14:00 O2 Del Method Room Air 02/12/23 14:00 Discharge Plan Discharge Patient Disposition: Home Condition: Stable Prescriptions: New pantoprazole 40 mg Tablet,Delayed Release (Dr/Ec) 40 mg PO DAILY Qty: 30 0RF Continued cholecalciferol (vitamin D3) 125 mcg (5,000 unit) capsule 125 mcg PO DAILY hydralazine 50 mg tablet 50 mg PO TID tramadol 50 mg tablet 50 mg PO Q6H PRN (Reason: Pain, Mild) bumetanide 2 mg tablet 2 mg PO DAILY doxycycline monohydrate 100 mg tablet 100 mg PO DAILY Qty: 90 1RF escitalopram oxalate [Lexapro] 10 mg tablet 10 mg PO DAILY Qty: 90 1RF (DME) Diabetic shoes See Rx Instructions .ROUTE .MEDSUPPLY Qty: 1 0RF Rx Instructions: With 3 pairs of inserts to the shoe gumarco ipratropium-albuterol 0.5 mg-3 mg(2.5 mg base)/3 mL solution for nebulization 3 ml INHALATION Q6H PRN (Reason: Shortness Of Breath) Qty: 180 3RF budesonide 0.5 mg/2 mL suspension for nebulization 0.5 mg inhalation QPM Qty: 60 5RF albuterol sulfate [Ventolin HFA] 90 mcg/actuation HFA aerosol inhaler 1 inh inhalation QID PRN (Reason: shortness of breath or wheezing) Qty: 8.5 3RF RenaPlex-D 800 mcg-12.5 mg -2,000 unit Tablet 1 tab PO BEDTIME docusate sodium [Stool Softener] 100 mg capsule 100 mg PO BID lisinopril 20 mg tablet 20 mg PO DAILY ropinirole 1 mg tablet 1 mg PO QPM metoprolol succinate 50 mg tablet extended release 24 hr 50 mg PO BID fluticasone propionate 50 mcg/actuation spray,suspension 2 spray intranasal DAILY oxycodone-acetaminophen 5-325 mg tablet 0.5 - 1 tab PO Q4H PRN (Reason: Pain) metolazone 5 mg tablet 5 mg PO QAM cyanocobalamin (vitamin B-12) [Vitamin B-12] 1,000 mcg tablet 1,000 mcg PO DAILY Discontinued amiodarone 200 mg tablet 100 mg PO DAILY Qty: 15 3RF aspirin 81 mg Tablet,Chewable 81 mg PO DAILY Discharge Orders: Discharge Order (Routine); Ordered 02/12/23 Ordered By: Leander Zavala Referrals: Brittanie Cummings FNP [Nurse Practitioner] - 1 week (amiodarone stopped. Concern of increased LFT's with medication We have notified your physician's clinic of the need for a follow-up appointment to be scheduled. If you have not heard from them within the next 2 business days, please call them directly. ) Christofer Varghese MD [Primary Care Provider] - 4-7 days (CBC on follow-up, CMP on follow up We have notified your physician's clinic of the need for a follow-up appointment to be scheduled. If you have not heard from them within the next 2 business days, please call them directly. ) Discharge Diet: Usual diet Discharge Activity: Increase activity as tolerated Patient Instructions: Pantoprazole (By mouth), Heart Failure (ED), Dialysis Diet (DC), Hemodialysis (DC), CHF Stoplight, GI Discharge Instructions, Opioid Safety Activity Restrictions/Additional Instructions: Take all medicine as prescribed Monitor for any bleeding Stop aspirin, this is to be reassessed at your primary care provider physician visit in 3 to 5 days whether this can be restarted. CBC on follow-up. CMP on follow-up Return for any concerns Take Protonix as directed Stop your amiodarone Follow-up with Brittanie Cummings in approximately 1 week, for concerns of amiodarone with LFT elevation Discharge Attestations Time Spent in Discharge Care*: greater than 30 min Quality Metrics Clinical Quality Measures [ No reported AMI, CVA or VTE this stay] Coding Level of Care Code 42209 Total time (in minutes) for Discharge: 32 Diagnoses ESRD on hemodialysis N18.6; Z99.2
== END 2023-02-12 16:05 | disposition home or self-care (01) | DRG 377 ==
LOC: ER 10:02 → ICU 12:33 → MEDSURG 02-10 16:52
PROVIDERS: Hospitalist; Surgery; Admitting Provider Internal Medicine; Emergency Provider Family Medicine; PCP Family Medicine; Visit Provider Internal Medicine
PROC: 0DJ08ZZ Inspection of Upper Intestinal Tract, Via Natural or Artificial Opening Endoscopic (ICD-10-PCS; CPT 43235; principal; 2023-02-11 10:30)
PROC: 0DJD8ZZ Inspection of Lower Intestinal Tract, Via Natural or Artificial Opening Endoscopic (ICD-10-PCS; CPT 45378; 2023-02-11 10:30)
DX: K92.1 Melena (principal); N18.6 End stage renal disease; I13.2 Hypertensive heart and chronic kidney disease with heart failure and with stage 5 chronic kidney disease, or end stage renal disease; I50.32 Chronic diastolic (congestive) heart failure; I48.92 Unspecified atrial flutter; E87.5 Hyperkalemia; E11.22 Type 2 diabetes mellitus with diabetic chronic kidney disease; Z99.2 Dependence on renal dialysis; Z91.158 Patient's noncompliance with renal dialysis for other reason; K57.30 Diverticulosis of large intestine without perforation or abscess without bleeding; K44.9 Diaphragmatic hernia without obstruction or gangrene; K64.8 Other hemorrhoids; D63.1 Anemia in chronic kidney disease; J44.9 Chronic obstructive pulmonary disease, unspecified; E78.2 Mixed hyperlipidemia; G47.33 Obstructive sleep apnea (adult) (pediatric); E11.51 Type 2 diabetes mellitus with diabetic peripheral angiopathy without gangrene; E11.618 Type 2 diabetes mellitus with other diabetic arthropathy; R74.01 Elevation of levels of liver transaminase levels; D53.9 Nutritional anemia, unspecified; Z95.3 Presence of xenogenic heart valve; Z89.421 Acquired absence of other right toe(s); Z72.0 Tobacco use
CPT/HCPCS: 36415; 36416; 36430; 36573; 36592; 36600; 43235; 45378; 71045; 74176; 76705; 80051; 80053; 81001; 82009; 82330; 82607; 82805; 82962; 83735; 84484; 85014; 85018; 85025; 85610; 86706; 86850; 86900; 86920; 87040; 87340; 90935; 93005; 94640; 96365; 96367; 96372; 96375; 96376; 99285; C1751; C9113; J0744; J1642; J1644; J1815; J2405; J2704; J3430; J3490; J7030; P9016; Q3014; Q4081

== ENCOUNTER → 2023-02-17 10:53 | Outpatient (BNVA) | payer MEDICARE, SELFPAY | PROVIDERS: PCP Family Medicine; Visit Provider Thoracic Surgery (Cardiothoracic Vascular Surgery) | DX: E11.52 Type 2 diabetes mellitus with diabetic peripheral angiopathy with gangrene (principal); E11.621 Type 2 diabetes mellitus with foot ulcer; L97.411 Non-pressure chronic ulcer of right heel and midfoot limited to breakdown of skin | CPT/HCPCS: 97597 ==

== ENCOUNTER → 2023-02-23 09:21 | Outpatient (BNVA) | payer MEDICARE, SELFPAY | PROVIDERS: PCP Family Medicine; Visit Provider Nurse Practitioner Family | DX: K92.2 Gastrointestinal hemorrhage, unspecified (principal) | CPT/HCPCS: 99213 ==

== ENCOUNTER → 2023-02-24 11:04 | Outpatient (BNVA) | payer MEDICARE, SELFPAY | PROVIDERS: PCP Family Medicine; Visit Provider Thoracic Surgery (Cardiothoracic Vascular Surgery) | DX: E11.52 Type 2 diabetes mellitus with diabetic peripheral angiopathy with gangrene (principal); E11.621 Type 2 diabetes mellitus with foot ulcer; L97.412 Non-pressure chronic ulcer of right heel and midfoot with fat layer exposed | CPT/HCPCS: 11042 ==

== ENCOUNTER → 2023-03-03 10:55 | Outpatient (BNVA) | payer MEDICARE, SELFPAY | PROVIDERS: PCP Family Medicine; Visit Provider Thoracic Surgery (Cardiothoracic Vascular Surgery) | DX: E11.52 Type 2 diabetes mellitus with diabetic peripheral angiopathy with gangrene (principal); E11.621 Type 2 diabetes mellitus with foot ulcer; L97.412 Non-pressure chronic ulcer of right heel and midfoot with fat layer exposed; E11.622 Type 2 diabetes mellitus with other skin ulcer; L97.821 Non-pressure chronic ulcer of other part of left lower leg limited to breakdown of skin | CPT/HCPCS: 97597 ==

== ENCOUNTER → 2023-03-10 11:04 | Outpatient (BNVA) | payer MEDICARE, SELFPAY | PROVIDERS: PCP Family Medicine; Visit Provider Nurse Practitioner Family | DX: E11.52 Type 2 diabetes mellitus with diabetic peripheral angiopathy with gangrene (principal); E11.621 Type 2 diabetes mellitus with foot ulcer; L97.412 Non-pressure chronic ulcer of right heel and midfoot with fat layer exposed; E11.622 Type 2 diabetes mellitus with other skin ulcer; L97.821 Non-pressure chronic ulcer of other part of left lower leg limited to breakdown of skin | CPT/HCPCS: 11042; 97597; A6212 ==

== ENCOUNTER → 2023-03-17 10:30 | Outpatient (BNVA) | payer MEDICARE, SELFPAY | PROVIDERS: PCP Family Medicine; Visit Provider Podiatrist Foot & Ankle Surgery | DX: E11.8 Type 2 diabetes mellitus with unspecified complications (principal); I73.9 Peripheral vascular disease, unspecified; E11.42 Type 2 diabetes mellitus with diabetic polyneuropathy; Z79.4 Long term (current) use of insulin; M21.41 Flat foot [pes planus] (acquired), right foot; M21.42 Flat foot [pes planus] (acquired), left foot; M20.41 Other hammer toe(s) (acquired), right foot; M20.42 Other hammer toe(s) (acquired), left foot; L60.3 Nail dystrophy; L84 Corns and callosities | CPT/HCPCS: 99213 ==

== ENCOUNTER → 2023-03-24 10:57 | Outpatient (BNVA) | payer MEDICARE, SELFPAY | PROVIDERS: PCP Family Medicine; Visit Provider Thoracic Surgery (Cardiothoracic Vascular Surgery) | DX: E11.52 Type 2 diabetes mellitus with diabetic peripheral angiopathy with gangrene (principal); E11.621 Type 2 diabetes mellitus with foot ulcer; L97.412 Non-pressure chronic ulcer of right heel and midfoot with fat layer exposed; Z09 Encounter for follow-up examination after completed treatment for conditions other than malignant neoplasm | CPT/HCPCS: 11042; 97597; 97598 ==

== ENCOUNTER → 2023-03-31 11:14 | Outpatient (BNVA) | payer MEDICARE, SELFPAY | PROVIDERS: PCP Family Medicine; Visit Provider Thoracic Surgery (Cardiothoracic Vascular Surgery) | DX: E11.52 Type 2 diabetes mellitus with diabetic peripheral angiopathy with gangrene (principal); E11.621 Type 2 diabetes mellitus with foot ulcer; L97.412 Non-pressure chronic ulcer of right heel and midfoot with fat layer exposed; E11.622 Type 2 diabetes mellitus with other skin ulcer; L97.821 Non-pressure chronic ulcer of other part of left lower leg limited to breakdown of skin | CPT/HCPCS: 11042; 97597; 97598 ==

== ENCOUNTER → 2023-04-07 10:41 | Outpatient (BNVA) | payer MEDICARE, SELFPAY | PROVIDERS: PCP Family Medicine; Visit Provider Thoracic Surgery (Cardiothoracic Vascular Surgery) | DX: E11.52 Type 2 diabetes mellitus with diabetic peripheral angiopathy with gangrene (principal); E11.621 Type 2 diabetes mellitus with foot ulcer; L97.412 Non-pressure chronic ulcer of right heel and midfoot with fat layer exposed; E11.622 Type 2 diabetes mellitus with other skin ulcer; L97.821 Non-pressure chronic ulcer of other part of left lower leg limited to breakdown of skin | CPT/HCPCS: 11042; 97597; 97598 ==

== ENCOUNTER → 2023-04-14 10:55 | Outpatient (BNVA) | payer MEDICARE, SELFPAY | PROVIDERS: PCP Family Medicine; Visit Provider Thoracic Surgery (Cardiothoracic Vascular Surgery) | DX: E11.52 Type 2 diabetes mellitus with diabetic peripheral angiopathy with gangrene (principal); E11.621 Type 2 diabetes mellitus with foot ulcer; L97.411 Non-pressure chronic ulcer of right heel and midfoot limited to breakdown of skin; E11.622 Type 2 diabetes mellitus with other skin ulcer; L97.822 Non-pressure chronic ulcer of other part of left lower leg with fat layer exposed | CPT/HCPCS: 11042; A6210; A6212; A6251 ==

== ENCOUNTER 2023-04-14 22:01 | Emergency (ER) | payer MEDICARE, SELFPAY ==
[2023-04-14 22:04] VITALS: BP 143/71; PULSE 83; RESP 16; TEMP 37.5; O2SAT 91
--- NOTE | 2023-04-14 22:37 | XRR_ITS ---
PROCEDURE INFORMATION: Exam: XR Chest Exam date and time: 04/15/2023 12:00 AM Age: 62 years old Clinical indication: Cough; Prior surgery; Surgery date: 6+ months; Surgery type: 2017 TECHNIQUE: Imaging protocol: Radiologic exam of the chest. Views: 1 view. COMPARISON: CR XR chest 1V portable [id number] 02/09/2023 9:01 AM FINDINGS: Tubes, catheters and devices: Essentially stable position of right central venous catheter. Lungs: No definite CHF/pulmonary edema. Mild right lateral lower lung opacities, similar to the prior exam. This could represent atelectasis/scarring or pneumonitis. Please correlate clinically. Visible lungs otherwise appear essentially clear. Pleural spaces: Small right pleural effusion versus pleural thickening, unchanged. No visible pneumothorax. Heart/Mediastinum: Heart size appears upper normal/mildly prominent. Bones/joints: Prior median sternotomy. XR/XR chest 1V portable [id number] IMPRESSION: 1. Mild right lower lung opacities, see above discussion. 2. Other findings discussed above.
--- NOTE | 2023-04-14 22:38 | ECG_ITS ---
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 Measurements Intervals [place] Rate: 76 P: -80 MA: 135 QRS: -45 QRSD: 154 T: 15 QT: 478 QTc: 540 Interpretive Statements SINUS RHYTHM INTRAVENTRICULAR CONDUCTION DELAY [130+ ms QRS DURATION] POSSIBLE LATERAL MYOCARDIAL INFARCTION , OF INDETERMINATE AGE [30 ms Q WAVE IN I/aVL/V5/V6] Compared to ECG 02/09/2023 15:27:19 Intraventricular conduction delay now present Myocardial infarct finding now present First degree AV block no longer present Left-axis deviation no longer present Right bundle-branch block no longer present Electronically Signed On 04-17-2023 23:20:30 DIRECTOR OF PARTNER MARKETING by Shayan Stout M.D. [id number]
[2023-04-14 23:31] VITALS: BP 149/66; PULSE 76; RESP 21
[2023-04-14 23:42] LABS: Basophils # 0.1 10^3/uL (0.0-0.1); Basophils % 1.4 %; Eosinophils # 0.1 10^3/uL (0.0-0.8); Lymphocytes # 0.8 10^3/uL (0.8-4.8); Lymphocytes % 15.4 %; Mean Corpuscular HGB Conc 31.1 g/dL (30-55); Mean Corpuscular Hemoglobin 32.7 pg (27-33); Mean Corpuscular Volume 105.1 fl (82-101); Monocytes # 0.6 10^3/uL (0.2-0.9); Monocytes % 12.6 %; Neutrophils # 3.47 10^3/uL (1.8-7.7); Neutrophils % 69.2 %; Nucleated Red Blood Cells % 0 %; Platelet Count 119 10^3/cmm (157-399); Red Blood Count 2.57 10^6/uL (3.85-5.65); Red Cell Distribution Width 17.5 % (12.1-15.1); White Blood Count 5.01 10^3/uL (3.29-11.43)
--- NOTE | 2023-04-14 23:47 | ED_ITS ---
HPI - Weakness 2 General: Chief complaint: Weakness Stated complaint: low bp, low hr Time Seen by Provider: 04/14/23 23:17 History of Present Illness: Patient presents to the ER with complaints of weakness worsening over the last several days. And a fever up to 102. Patient says he has cough congestion overall body aches. Patient says he has generalized weakness no focal weakness. Patient does have a history of GI bleed which they are looking into. Patient has an appointment down in [place] to get a capsule endoscopy. Patient says he has had a couple small bleeds within the last week. Patient states he feels overall the same way he does when he is low on blood. Patient is on dialysis and went to dialysis today. Patient says he has not missed any dialysis days or medications. Patient does have a history of CHF and is on diuretics. Patient does not use oxygen at home but he does use nebulizers. 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 Intermittent palpitations Hyperlipidemia Hypertension XI (obstructive sleep apnea) DJD (degenerative joint disease) Atrial flutter PVD (peripheral vascular disease) Diabetes Surgical History H/O aortic valve replacement with tissue graft H/O aortic valve replacement H/O foot surgery Family History Grandmother Diabetes Grandfather Diabetes Denies family history of CAD (coronary artery disease) Clotting disorder Dementia Chronic kidney disease (CKD) Suicide Anesthesia complication Bleeding disorder Lung disease Cancer Stroke Social History Smoking and tobacco/nicotine status: current every day tobacco/nicotine user cigarettes Packs smoked per day: 1 Years cigarettes smoked: 46 Alcohol intake: never Substance/Drug Use: never Lives independently: Yes (with girlfriend) Household members: significant other Marital status: Single service: No 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al status: disabled 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 Pets and animals: Yes Special araceli needs: No Agree to transfusion: Yes Physical Exam 2 Const: COMMON NORMALS: no acute distress, average body habitus, patient oriented x3, no limitations, healthy appearing, alert and well nourished HENMT: COMMON NORMALS: normocephalic, atraumatic, hearing grossly normal bilaterally, external ears normal, Normal external nose present, moist oral mucous membranes and oropharynx normal HEAD & SCALP: normocephalic and atraumatic NOSE: Normal external nose present EXTERNAL EAR: Yes external ears normal Neck/C-Spine: COMMON NORMALS: full ROM, no lymphadenopathy, supple, no meningeal signs, no JVD and Thyroid normal THYROID: Thyroid normal Chest: COMMONS NORMALS: normal inspection of the chest and normal palpation of entire chest wall Resp: COMMON NORMALS: normal respiratory effort, No retractions and No use of accessory muscles; negative for clear to auscultation bilaterally (Diminished breath sounds bilaterally rhonchi on the right lobes) AUSCULTATION: not clear to auscultation bilaterally (Diminished breath sounds bilaterally rhonchi on the right lobes) Cardio: COMMON NORMALS: no JVD, regular rate, regular rhythm, S1 normal heart sound present, S2 normal heart sound present, No gallops present (Cardio) and No clicks present (Cardio); negative for No murmurs present (Cardio) (3 out of 6 systolic ejection murmur) RATE: regular rate RHYTHM: regular rhythm HEART SOUNDS: S1 normal heart sound present and S2 normal heart sound present GI: COMMON NORMALS: Normal to inspection, nondistended, normoactive bowel sounds present, Soft to palpation, non-tender, No hepatosplenomegaly present and no masses PALPATION: Yes Soft to palpation and Yes No hepatosplenomegaly present Neuro: COMMON NORMALS: patient oriented x3 SENSORIUM/ORIENTATION: Yes alert MENINGEAL SIGNS: Yes no meningeal signs Course 2 Vital Signs: Vital signs: Vital Signs Temperature 99.5 F 04/14/23 22:04 Pulse Rate 76 04/14/23 23:31 Respiratory Rate 21 H 04/14/23 23:31 Blood Pressure 149/66 04/14/23 23:31 Pulse Oximetry 91 04/14/23 22:04 Oxygen Delivery Me thod Nasal Cannula 04/14/23 23:31 MDM - Weakness Medical Decision Making This exam was performed patient had labs and imaging. Lab work revealed hemoglobin of 8.4 and hematocrit 27.0 BUN/creatinine of 24 and 3.8, chest x-ray showed mild right lower lung opacities. Patient said he was feeling significantly better while on oxygen here. Will perform home oxygen study. If he fails we will get him home oxygen otherwise we will discharge the patient to follow-up with his PCP. Differential Diagnosis Unlikely acute myocardial infarction, anemia, hypoglycemia, hypothyroidism, rhabdomyolysis, sepsis or dehydration Medical Records I reviewed the patient's medical records. Lab Data I reviewed the patient's lab results. 04/14/23 23:26 04/14/23 23:26 Radiology Impressions Chest X-Ray 04/14/23 22:37 IMPRESSION: 1. Mild right lower lung opacities, see above discussion. 2. Other findings discussed above. Laboratory Results WBC 5.01 10^3/uL (3.29-11.43) 04/14/23 23: RBC 2.57 10^6/uL (3.85-5.65) L 04/14/23 23: Hgb 8.40 g/dL (11.27-16.99) L 04/14/23 23: Hct 27.0 % (37-53) L 04/14/23 23: MCV 105.1 fl (82-101) H 04/14/23 23: MCH 32.7 pg (27-33) 04/14/23 23: MCHC 31.1 g/dL (30-55) 04/14/23 23: RDW 17.5 % (12.1-15.1) H 04/14/23 23: Plt Count 119 10^3/cmm (157-399) L 04/14/23 23: MPV 10.0 fL (7.4-10.4) 04/14/23 23: Neut % (Auto) 69.2 % 04/14/23 23: Lymph % (Auto) 15.4 % 04/14/23 23: [place] % (Auto) 12.6 % 04/14/23 23: Eos % (Auto) 1.0 % 04/14/23 23: Baso % (Auto) 1.4 % 04/14/23: Neut # (Auto) 3.47 10^3/uL (1.8-7.7) 04/14/23 23:26 Lymph # (Auto) 0.8 10^3/uL (0.8-4.8) 04/14/23 23:26 [place] # (Auto) 0.6 10^3/uL (0.2-0.9) 04/14/23 23:26 Eos # (Auto) 0.1 10^3/uL (0.0-0.8) 04/14/23 23:26 Baso # (Auto) 0.1 10^3/uL (0.0-0.1) 04/14/23 23:26 Nucleated RBC % (auto) 0 % 04/14/23 23: Nucleated RBCs # 0.0 /100WBC 04/14/23 23:26 Sodium 135 mmol/L (136-145) L 04/14/23 23:26 Potassium 3.7 mmol/L (3.5-5.1) 04/14/23 23:26 Chloride 88 mmol/L (98-107) L 04/14/23 23:26 Carbon Dioxide 34 mmol/L (22-29) H 04/14/23 23:26 Anion Gap 16.7 (5-19) 04/14/23 23:26 BUN 24 mg/dL (8-23) H 04/14/23 23:26 Creatinine 3.8 mg/dL (0.7-1.2) H 04/14/23 23:26 GFR Calculation 16.3 mL/min (90-130) L 04/14/23 23:26 Glucose 97 mg/dL (65-115) 04/14/23 23:26 Calculated Osmolality 284 mOsm/kg (285-295) L 04/14/23 23:26 Calcium 9.3 mg/dL (8.5-10.5) 04/14/23 23:26 Phosphorus 3.0 mg/dL (2.5-4.5) 04/14/23 23:26 Magnesium 1.8 mg/dL (1.7-2.3) 04/14/23 23:26 Total Bilirubin 1.4 mg/dL (0.15-1.2) H 04/14/23 23:26 AST 30 U/L (0-40) 04/14/23 23: ALT 15 U/L (0-41) 04/14/23 23:26 Alkaline Phosphatase 246 U/L (40-130) H 04/14/23 23:26 Troponin T Baseline 332 ng/L (0-15) H* 04/14/23 23:26 Troponin T 120 Minute 331.1 ng/L (0-15) H 04/15/23 01:06 Delta Troponin T -0.9 ABS# (0-10) L 04/15/23 01:06 NT-Pro-B Natriuret Pep 07937 pg/mL (0-125) H 04/14/23 23:26 Total Protein 7.0 g/dL (6.6-8.7) 04/14/23 23:26 Albumin 3.9 g/dL (3.5-5.2) 04/14/23 23:26 Globulin 3.1 g/dL (1.3-4.6) 04/14/23 23:26 Influenza Type A Ag negative (Negative) 04/14/23 23:29 Influenza Type B Ag negative (Negative) 04/14/23 23:29 SARS-CoV-2 Ag (Rapid) negative (Negative) 04/14/23 23:29 All radiology interpretation(s) finalized by discharge Discharge Plan Discharge Patient Disposition: Home Clinical Impression: Acute hypoxic respiratory failure, Chronic anemia, Generalized muscle weakness, Acute exacerbation of chronic obstructive pulmonary disease Condition: Stable Prescriptions: No Action cholecalciferol (vitamin D3) 125 mcg (5,000 unit) capsule 125 mcg PO DAILY hydralazine 50 mg tablet 50 mg PO TID tramadol 50 mg tablet 50 mg PO Q6H PRN (Reason: Pain, Mild) bumetanide 2 mg tablet 2 mg PO DAILY doxycycline monohydrate 100 mg tablet 100 mg PO DAILY Qty: 90 1RF escitalopram oxalate [Lexapro] 10 mg tablet 10 mg PO DAILY Qty: 90 1RF isosorbide mononitrate 30 mg tablet extended release 24 hr 30 mg PO DAILY Qty: 90 1RF metolazone 5 mg tablet 5 mg PO QAM Qty: 90 0RF Rx Instructions: may add on 2.5mg in the afternoon if weight is up over 5# nitroglycerin 2.5 mg capsule, extended release 2.5 mg PO DAILY pantoprazole 40 mg tablet,delayed release (DR/EC) 40 mg PO DAILY Qty: 90 0RF (DME) Diabetic shoes See Rx Instructions .ROUTE .MEDSUPPLY Qty: 1 0RF Rx Instructions: With 3 pairs of inserts to the shoe [place] ipratropium-albuterol 0.5 mg-3 mg(2.5 mg base)/3 mL solution for nebulization 3 ml INHALATION Q6H PRN (Reason: Shortness Of Breath) Qty: 180 3RF budesonide 0.5 mg/2 mL suspension for nebulization 0.5 mg inhalation QPM Qty: 60 5RF albuterol sulfate [Ventolin HFA] 90 mcg/actuation HFA aerosol inhaler 1 inh inhalation QID PRN (Reason: shortness of breath or wheezing) Qty: 8.5 3RF ropinirole 1 mg tablet See Rx Instructions .ROUTE .COMPLEX Qty: 90 0RF Dose Instruction: TAKE 1 TABLET BY MOUTH EVERY DAY Rx Instructions: TAKE 1 TABLET BY MOUTH EVERY DAY RenaPlex-D 800 mcg-12.5 mg -2,000 unit Tablet 1 tab PO BEDTIME docusate sodium [Stool Softener] 100 mg capsule 100 mg PO BID lisinopril 20 mg tablet 20 mg PO DAILY metoprolol succinate 50 mg tablet extended release 24 hr 50 mg PO BID fluticasone propionate 50 mcg/actuation spray,suspension 2 spray intranasal DAILY oxycodone-acetaminophen 5-325 mg tablet 0.5 - 1 tab PO Q4H PRN (Reason: Pain) cyanocobalamin (vitamin B-12) [Vitamin B-12] 1,000 mcg tablet 1,000 mcg PO DAILY Discharge Orders: Discharge ED (Routine); Ordered 04/15/23 Ordered By: Anthony Dsouza Other Ambulatory Orders: DME: Oxygen (Order) Location: None Selected Ordered By: Anthony Dsouza Referrals: Christofer Varghese MD [Primary Care Provider] - 1 week Patient Instructions: Anemia, COPD (Chronic Obstructive Pulmonary Disease) (DC), Weakness (Generalized) Coding Level of Care Code ED Golf Cart Repairer for Lillian Anne
[2023-04-15 00:02] LABS: Troponin(5th) Baseline 332 ng/L (0-15)
[2023-04-15 00:05] LABS: Influenza A by IFA negative (Negative); Influenza B by IFA negative (Negative)
[2023-04-15 00:06] LABS: SARS Covid-2 Antigen negative (Negative)
[2023-04-15 00:08] LABS: Alanine Aminotransferase 15 U/L (0-41); Albumin Level 3.9 g/dL (3.5-5.2); Alkaline Phosphatase 246 U/L (40-130); Anion Gap 16.7 (5-19); Aspartate Amino Transferase 30 U/L (0-40); Blood Urea Nitrogen 24 mg/dL (8-23); Calcium 9.3 mg/dL (8.5-10.5); Carbon Dioxide 34 mmol/L (22-29); Chloride 88 mmol/L (98-107); Globulin 3.1 g/dL (1.3-4.6); Glomerular Filtration Rate 16.3 mL/min (90-130); Glucose 97 mg/dL (65-115); Magnesium 1.8 mg/dL (1.7-2.3); Osmolality Calculated 284 mOsm/kg (285-295); Potassium 3.7 mmol/L (3.5-5.1); Sodium 135 mmol/L (136-145); Total Bilirubin 1.4 mg/dL (0.15-1.2)
[2023-04-15 00:48] LABS: NT Pro B Type Natriuretic Pept 61419 pg/mL (0-125)
--- NOTE | 2023-04-15 00:53 | ECG_ITS ---
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 Measurements Intervals [place] Rate: 76 P: -42 NC: 143 QRS: -44 QRSD: 148 T: -5 QT: 481 QTc: 543 Interpretive Statements SINUS RHYTHM WITH OCCASIONAL SUPRAVENTRICULAR PREMATURE COMPLEXES LEFT AXIS DEVIATION [QRS AXIS < -30] INTRAVENTRICULAR CONDUCTION DELAY [130+ ms QRS DURATION] Compared to ECG 04/14/2023 23:31:40 Left-axis deviation now present Junctional rhythm no longer present Myocardial infarct finding no longer present Electronically Signed On 04-18-2023 11:00:12 INSERTING OPERATOR by Shayan Stout M.D. [email or web address]
[2023-04-15 01:45] LABS: Troponin 5 2HR Delta -0.9 ABS# (0-10)
[2023-04-15 01:47] LABS: Troponin 5 2HR 331.1 ng/L (0-15)
[2023-04-15 02:56] VITALS: O2SAT 87
[2023-04-15 04:09] VITALS: BP 139/72; PULSE 73; RESP 15; O2SAT 95
== END 2023-04-15 04:10 | disposition home or self-care (01) ==
PROVIDERS: Emergency Provider Emergency Medicine; PCP Family Medicine
DX: R53.1 Weakness (principal); D53.9 Nutritional anemia, unspecified; J44.1 Chronic obstructive pulmonary disease with (acute) exacerbation; J96.01 Acute respiratory failure with hypoxia; Z11.52 Encounter for screening for COVID-19; F17.210 Nicotine dependence, cigarettes, uncomplicated; E11.22 Type 2 diabetes mellitus with diabetic chronic kidney disease; I12.0 Hypertensive chronic kidney disease with stage 5 chronic kidney disease or end stage renal disease; N18.6 End stage renal disease; Z99.2 Dependence on renal dialysis; E78.5 Hyperlipidemia, unspecified
CPT/HCPCS: 36415; 71045; 80053; 83735; 83880; 84100; 84484; 85025; 87426; 87804; 93005; 99285

== ENCOUNTER → 2023-04-21 10:52 | Outpatient (BNVA) | payer MEDICARE, MEDICAID, SELFPAY | PROVIDERS: PCP Family Medicine; Visit Provider Thoracic Surgery (Cardiothoracic Vascular Surgery) | DX: E11.52 Type 2 diabetes mellitus with diabetic peripheral angiopathy with gangrene (principal); E11.621 Type 2 diabetes mellitus with foot ulcer; L97.411 Non-pressure chronic ulcer of right heel and midfoot limited to breakdown of skin; Z09 Encounter for follow-up examination after completed treatment for conditions other than malignant neoplasm | CPT/HCPCS: 97597; A6210; A6251 ==

== ENCOUNTER → 2023-04-29 11:29 | Outpatient (BNVA) | payer MEDICARE, SELFPAY | PROVIDERS: PCP Family Medicine; Visit Provider Podiatrist Foot & Ankle Surgery | DX: L97.513 Non-pressure chronic ulcer of other part of right foot with necrosis of muscle; E11.621 Type 2 diabetes mellitus with foot ulcer; M21.41 Flat foot [pes planus] (acquired), right foot; M21.42 Flat foot [pes planus] (acquired), left foot; M20.41 Other hammer toe(s) (acquired), right foot; M20.42 Other hammer toe(s) (acquired), left foot; L60.3 Nail dystrophy; L84 Corns and callosities; E11.8 Type 2 diabetes mellitus with unspecified complications; I73.9 Peripheral vascular disease, unspecified; E11.42 Type 2 diabetes mellitus with diabetic polyneuropathy; Z79.4 Long term (current) use of insulin | CPT/HCPCS: 29445; 73630; 87070; 87075; 87205; 99214 ==

== ENCOUNTER 2023-04-30 17:05 | Emergency (ER) | payer MEDICARE, SELFPAY ==
[2023-04-30] VITALS (8 sets, daily range): BP systolic 110–148; BP diastolic 56–79; PULSE 64–80; RESP 16–20; TEMP 36.4–37; O2SAT 88–98; BMI 33.5
--- NOTE | 2023-04-30 17:41 | ED_ITS ---
HPI - Recheck/Abnormal Lab/Rx 2 General: Chief Complaint: Recheck/Abnormal Lab/Rx Stated Complaint: sent from dr to get blood transfusion Time Seen by Provider: 04/30/23 17:37 Source: patient Mode of arrival: ambulatory Limitations: no limitations History of Present Illness: 62-year-old male history end-stage renal disease he did receive dialysis today also has a history of chronic anemia. He states that dialysis clinic [facility] blood today and his hemoglobin was less than 7 and sent him here for transfusion. He states he had had multiple transfusions in the past for chronic anemia he denies any active bleeding currently has had some mild fatigue denies any pain anywhere Review of Systems 2 Const: Reports: fatigue; Denies: fever(s), chills, body aches or change in appetite ENMT: Denies: throat pain or dental pain Card: Denies: chest pain Resp: Denies: dyspnea GI: Denies: abdominal pain, nausea, vomiting or diarrhea Musc: Denies: neck pain or back pain Skin/Breast: Denies: rash Neuro: Denies: headache(s) PFSH ED 2 PFSH: Medical History Chronic anemia COPD (chronic obstructive pulmonary disease) Severe tobacco use disorder ESRD on hemodialysis History of renal dialysis Chronic kidney disease 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 Intermittent palpitations Hyperlipidemia Hypertension XI (obstructive sleep apnea) DJD (degenerative joint disease) Atrial flutter PVD (peripheral vascular disease) Diabetes Surgical History 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 H/O aortic valve replacement with tissue graft H/O aortic valve replacement H/O foot surgery Family History Grandmother Diabetes Grandfather Diabetes Denies family history of CAD (coronary artery disease) Clotting disorder Dementia Chronic kidney disease (CKD) Suicide Anesthesia complication Bleeding disorder Lung disease Cancer Stroke Social History Smoking and tobacco/nicotine status: current every day tobacco/nicotine user cigarettes Packs smoked per day: 1 Years cigarettes smoked: 46 Alcohol intake: never Substance/Drug Use: never Lives independently: Yes (with girlfriend) Household members: significant other Marital status: Single service: No 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al status: disabled 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 Pets and animals: Yes Special araceli needs: No Agree to transfusion: Yes Physical Exam 2 Const: COMMON NORMALS: no acute distress, patient oriented x3 and healthy appearing HENMT: COMMON NORMALS: normocephalic and atraumatic HEAD & SCALP: n ormocephalic and atraumatic Eye: COMMON NORMALS: conjunctivae normal CONJUNCTIVA: Yes conjunctivae normal Neck/C-Spine: COMMON NORMALS: full ROM and supple Chest: COMMONS NORMALS: normal inspection of the chest Resp: COMMON NORMALS: normal respiratory effort Cardio: COMMON NORMALS: regular rate, regular rhythm and No murmurs present (Cardio) RATE: regular rate RHYTHM: regular rhythm Extremity: COMMON NORMALS: normal to inspection and full ROM Neuro: COMMON NORMALS: patient oriented x3, moves all extremities and no focal motor deficits Psych: COMMON NORMALS: mental status grossly normal, Normal thought process present and cooperative THOUGHT PROCESS: Normal thought process present Skin: COMMON NORMALS: no rashes or lesions noted and no wounds GENERAL SKIN EXAM: no rashes or lesions noted Course 2 Vital Signs: Vital signs: Vital Signs Temperature 98 F 04/30/23 17:25 Pulse Rate 80 04/30/23 18:40 Respiratory Rate 20 H 04/30/23 18:40 Blood Pressure 110/56 04/30/23 18:40 Pulse Oximetry 90 04/30/23 18:40 Oxygen Delivery Me thod Nasal Cannula 04/30/23 18:40 Oxygen Flow Rate 2 04/30/23 18:40 MDM - Recheck/Abnormal Lab/Rx Medical Decision Making Patient presents with anemia sent here for blood transfusion his chronic anemia has no signs of acute hemorrhage did transfuse him 1 unit he is stable for discharge at this time Medical Records I reviewed the patient's medical records. Lab Data I reviewed the patient's lab results. 04/30/23 18:02 Laboratory Results WBC 8.25 10^3/uL (3.29-11.43) 04/30/23 18:02 RBC 2.18 10^6/uL (3.85-5.65) L 04/30/23 18:02 Hgb 7.30 g/dL (11.27-16.99) L 04/30/23 18:02 Hct 24.3 % (37-53) L 04/30/23 18:02 MCV 111.5 fl (82-101) H 04/30/23 18:02 MCH 33.5 pg (27-33) H 04/30/23 18:02 MCHC 30.0 g/dL (30-55) 04/30/23 18:02 RDW 18.5 % (12.1-15.1) H 04/30/23 18:02 Plt Count 172 10^3/cmm (157-399) 04/30/23 18:02 MPV 9.5 fL (7.4-10.4) 04/30/23 18:02 Neut % (Auto) 72.4 % 04/30/23 18:02 Lymph % (Auto) 16.6 % 04/30/23 18:02 [place] % (Auto) 6.9 % 04/30/23 18:02 Eos % (Auto) 2.4 % 04/30/23 18:02 Baso % (Auto) 0.7 % 04/30/23 18:02 Neut # (Auto) 5.97 10^3/uL (1.8-7.7) 04/30/23 18:02 Lymph # (Auto) 1.4 10^3/uL (0.8-4.8) 04/30/23 18:02 [place] # (Auto) 0.6 10^3/uL (0.2-0.9) 04/30/23 18:02 Eos # (Auto) 0.2 10^3/uL (0.0-0.8) 04/30/23 18:02 Baso # (Auto) 0.1 10^3/uL (0.0-0.1) 04/30/23 18:02 Nucleated RBC % (auto) 0.2 % 04/30/23 18:02 Nucleated RBCs # 0.0 /100WBC 04/30/23 18:02 Blood Type O Positive 04/30/23 18:02 Rho(D) Type Rh positive 04/30/23 18:02 Antibody Screen Negative 04/30/23 18:02 Crossmatch See Detail 04/30/23 18:02 No radiology studies performed this visit Discharge Plan Discharge Patient Disposition: Home Clinical Impression: Chronic anemia Condition: Stable Prescriptions: No Action cholecalciferol (vitamin D3) 125 mcg (5,000 unit) capsule 125 mcg PO DAILY hydralazine 50 mg tablet 50 mg PO TID tramadol 50 mg tablet 50 mg PO Q6H PRN (Reason: Pain, Mild) bumetanide 2 mg tablet 2 mg PO DAILY doxycycline monohydrate 100 mg tablet 100 mg PO DAILY Qty: 90 1RF escitalopram oxalate [Lexapro] 10 mg tablet 10 mg PO DAILY Qty: 90 1RF isosorbide mononitrate 30 mg tablet extended release 24 hr 30 mg PO DAILY Qty: 90 1RF metolazone 5 mg tablet 5 mg PO QAM Qty: 90 0RF Rx Instructions: may add on 2.5mg in the afternoon if weight is up over 5# nitroglycerin 2.5 mg capsule, extended release 2.5 mg PO DAILY pantoprazole 40 mg tablet,delayed release (DR/EC) 40 mg PO DAILY Qty: 90 0RF (DME) Diabetic shoes See Rx Instructions .ROUTE .MEDSUPPLY Qty: 1 0RF Rx Instructions: With 3 pairs of inserts to the shoe guys ipratropium-albuterol 0.5 mg-3 mg(2.5 mg base)/3 mL solution for nebulization 3 ml INHALATION Q6H PRN (Reason: Shortness Of Breath) Qty: 180 3RF budesonide 0.5 mg/2 mL suspension for nebulization 0.5 mg inhalation QPM Qty: 60 5RF albuterol sulfate [Ventolin HFA] 90 mcg/actuation HFA aerosol inhaler 1 inh inhalation QID PRN (Reason: shortness of breath or wheezing) Qty: 8.5 3RF ropinirole 1 mg tablet See Rx Instructions .ROUTE .COMPLEX Qty: 90 0RF Dose Instruction: TAKE 1 TABLET BY MOUTH EVERY DAY Rx Instructions: TAKE 1 TABLET BY MOUTH EVERY DAY RenaPlex-D 800 mcg-12.5 mg -2,000 unit Tablet 1 tab PO BEDTIME docusate sodium [Stool Softener] 100 mg capsule 100 mg PO BID lisinopril 20 mg tablet 20 mg PO DAILY metoprolol succinate 50 mg tablet extended release 24 hr 50 mg PO BID fluticasone propionate 50 mcg/actuation spray,suspension 2 spray intranasal DAILY oxycodone-acetaminophen 5-325 mg tablet 0.5 - 1 tab PO Q4H PRN (Reason: Pain) cyanocobalamin (vitamin B-12) [Vitamin B-12] 1,000 mcg tablet 1,000 mcg PO DAILY Discharge Orders: Discharge ED (Routine); Ordered 04/30/23 Ordered By: Alvino Bernabe Referrals: Christofer Varghese MD [Primary Care Provider] - 4-7 days Discharge Diet: Advance as tolerated Discharge Activity: Resume usual activity Patient Instructions: Anemia (ED) Coding Level of Care Code ED Confection[employer] Laboratory Manager for Lillian Anne
[2023-04-30 18:18] LABS: Basophils # 0.1 10^3/uL (0.0-0.1); Basophils % 0.7 %; Eosinophils # 0.2 10^3/uL (0.0-0.8); Eosinophils % 2.4 %; Hematocrit 24.3 % (37-53); Lymphocytes # 1.4 10^3/uL (0.8-4.8); Lymphocytes % 16.6 %; Mean Corpuscular Hemoglobin 33.5 pg (27-33); Mean Corpuscular Volume 111.5 fl (82-101); Mean Platelet Volume 9.5 fL (7.4-10.4); Monocytes # 0.6 10^3/uL (0.2-0.9); Monocytes % 6.9 %; Neutrophils # 5.97 10^3/uL (1.8-7.7); Neutrophils % 72.4 %; Nucleated Red Blood Cells % 0.2 %; Platelet Count 172 10^3/cmm (157-399); Red Blood Count 2.18 10^6/uL (3.85-5.65); Red Cell Distribution Width 18.5 % (12.1-15.1); White Blood Count 8.25 10^3/uL (3.29-11.43)
--- NOTE | 2023-04-30 18:44 | PC.NURSE ---
report given to dread campbell
== END 2023-04-30 23:25 | disposition home or self-care (01) ==
PROVIDERS: Emergency Provider Emergency Medicine; PCP Family Medicine
DX: D53.9 Nutritional anemia, unspecified (principal); F17.210 Nicotine dependence, cigarettes, uncomplicated; E11.22 Type 2 diabetes mellitus with diabetic chronic kidney disease; I12.0 Hypertensive chronic kidney disease with stage 5 chronic kidney disease or end stage renal disease; N18.6 End stage renal disease; Z99.2 Dependence on renal dialysis; J44.9 Chronic obstructive pulmonary disease, unspecified; E78.5 Hyperlipidemia, unspecified
CPT/HCPCS: 36430; 85025; 86850; 86900; 86920; 99284; P9016

== ENCOUNTER → 2023-05-06 11:19 | Outpatient (BNVA) | payer MEDICARE, SELFPAY | PROVIDERS: PCP Family Medicine; Visit Provider Podiatrist Foot & Ankle Surgery | DX: M21.41 Flat foot [pes planus] (acquired), right foot (principal); M21.42 Flat foot [pes planus] (acquired), left foot; M20.41 Other hammer toe(s) (acquired), right foot; M20.42 Other hammer toe(s) (acquired), left foot; L60.3 Nail dystrophy; L84 Corns and callosities; L97.513 Non-pressure chronic ulcer of other part of right foot with necrosis of muscle; E11.8 Type 2 diabetes mellitus with unspecified complications; I73.9 Peripheral vascular disease, unspecified; E11.42 Type 2 diabetes mellitus with diabetic polyneuropathy; Z79.4 Long term (current) use of insulin | CPT/HCPCS: 99213 ==

== ENCOUNTER 2023-05-07 07:46 | Day surgery (SDC) | payer MEDICARE, SELFPAY ==
[2023-05-07] VITALS (12 sets, daily range): BP systolic 119–156; BP diastolic 67–79; PULSE 70–85; RESP 14–18; TEMP 36.3–36.8; O2SAT 93–99; BMI 33.3
[2023-05-07] MEDS: sodium chloride 0.9% 1,000 ML 30 ML IV (08:29)
[2023-05-07 08:31] LABS: Glucose Point of Care 226 mg/dL (70-110)
--- NOTE | 2023-05-07 08:42 | P.ANESASSM_ITS ---
Pre-Anesthetic Assessment Height/Weight: Height 1.75 m Weight 102.512 kg Temp Pulse Resp BP Pulse Ox O2 Del Method O2 Flow Rate 98.3 F 71 18 155/77 99 Nasal Cannula 2 05/07/23 07:55 05/07/23 07:55 05/07/23 07:55 05/07/23 07:55 05/07/23 07:55 05/07/23 08:14 05/07/23 08:14 Preop Diagnosis: Chronic ulcer right foot Operation Date: 05/07/23 09:20 Proposed Procedures p Tendon Lengthening Foot/ Right Achilles lengthening(Right) - Malachi Hernandez DPM s Metatarsal Osteotomy/ Right third metatarsal osteotomy, Right fourth metatarsal osteotomy(Right) - Malachi Hernandez DPM s Skin Graft Application/ Split thickness skin graft right foot,(Right) - Malachi Hernandez DPM Was Beta Jeanne taken within 24 hours: N/A Was Clonidine taken within 24 hours: N/A Last intake: Intake Last Liquid Date 05/06/23 Last Liquid Time 23:30 Last Solid Date 05/06/23 Last Solid Time 23:30 Last Intake: 22:00 Social Tobacco 1 pk pack(s) per day 45 pack years Exam alert, oriented x 3, clear to auscultation bilaterally and regular rate & rhythm Airway Submandibular: within normal limits Cervical ROM: within normal limits Mallampati: Class II Comments: Comments: jolly Pulmonary Asthma and Chronic Obstructive Pulmonary Disease CV/HEM Stable Angina, Coronary Artery Disease, Congestive Heart Failure and Hypertension AVR X 3 Chronic Renal Failure Hemo dialysis (last dialized 05/05/23) Hepatic None reported GI Gastroesophageal Reflux Disease Metabolic Morbid [place] [facility] [place] None reported Parkinsons Neuropsych Anxiety and Neuropathy Parkinsons Anesthetic Plan ASA status: 3 Anesthesia: MAC Risk of > 500 ml blood loss (7ml/kg in children): Yes, adequate IV access and fluids planned Medications/Allergies Home Medications Medication Instructions Recorded Confirmed Last Taken Type hydralazine 50 mg tablet 50 mg PO BID 05/28/22 05/07/23 05/06/23 History oxycodone-acetaminophen 5 mg-325 0.5 - 1 tab PO Q4H PRN Pain 07/15/22 05/07/23 05/06/23 History mg tablet cyanocobalamin (vitamin B-12) 1,000 mcg PO DAILY 08/25/22 05/07/23 05/06/23 History 1,000 mcg tablet (Vitamin B-12) docusate sodium 100 mg capsule 100 mg PO BID 10/01/22 05/07/23 3 Days Ago History (Stool Softener) ~05/04/23 budesonide 0.5 mg/2 mL suspension 0.5 mg (2 mL) inhalation QPM #60 mL 10/13/22 05/07/23 05/06/23 Rx for nebulization ipratropium 0.5 mg-albuterol 3 mg 3 ml inhalation Q6H PRN Shortness 10/13/22 05/06/23 Unknown Rx (2.5 mg base)/3 mL nebulization Of Breath #180 mL soln Diabetic shoes #1 ea 10/27/22 05/06/23 Unknown Rx albuterol sulfate 90 mcg/actuation 1 inh inhalation QID PRN shortness 12/29/22 05/07/23 05/06/23 Rx aerosol inhaler (Ventolin HFA) of breath or wheezing #8.5 grams bumetanide 2 mg tablet 2 mg PO DAILY 12/29/22 05/07/23 05/06/23 History doxycycline monohydrate 100 mg 100 mg PO DAILY #90 tabs 12/29/22 05/07/23 05/06/23 Rx tablet escitalopram oxalate 10 mg tablet 10 mg PO DAILY #90 tabs 12/29/22 05/07/23 05/06/23 Rx (Lexapro) tramadol 50 mg tablet 50 mg PO Q6H PRN Pain, Mild 12/29/22 05/07/23 05/02/23 History fluticasone propionate 50 2 spray intranasal DAILY 02/09/23 05/07/23 05/06/23 History mcg/actuation nasal spray,suspension lisinopril 20 mg tablet 20 mg PO DAILY 02/09/23 05/06/23 05/06/23 History metoprolol succinate 50 mg 50 mg PO BID 02/09/23 05/07/23 05/06/23 History tablet,extended release 24 hr isosorbide mononitrate 30 mg 30 mg PO DAILY #90 tabs 02/23/23 05/07/23 05/06/23 Rx tablet,extended release 24 hr metolazone 5 mg tablet 5 mg PO QAM #90 tabs 02/23/23 05/07/23 05/06/23 Rx nitroglycerin 2.5 mg 2.5 mg PO DAILY 03/11/23 05/07/23 05/06/23 History capsule,extended release pantoprazole 40 mg tablet,delayed 40 mg PO DAILY #90 tabs 03/11/23 05/07/23 05/06/23 Rx release ropinirole 1 mg tablet See Rx Instructions .Route 04/09/23 05/07/23 05/06/23 Rx .COMPLEX #90 tabs Allergies Allergy/AdvReac Type Severity Reaction Status Date / Time latex Allergy Mild Blisters Verified 05/06/23 11:27 petrolatum,white Allergy Mild Blisters Verified 05/06/23 11:27 [From A and D Barrier] amlodipine Allergy Unknown Verified 05/06/23 11:27 Current Medications Generic Name Dose Route Start Last Admin Trade Name Freq PRN Reason Stop Dose Admin Sodium Chloride 1,000 mls @ 30 mls/hr 05/07/23 08:00 05/07/23 08:29 Sodium Chloride 0.9% IV 05/08/23 07:59 30 mls/hr .Q24H KENNEDY Administration PFSH Anesthesia Medical History Chronic anemia COPD (chronic obstructive pulmonary disease) Severe tobacco use disorder ESRD on hemodialysis History of renal dialysis Chronic kidney disease 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 Intermittent palpitations Hyperlipidemia Hypertension XI (obstructive sleep apnea) DJD (degenerative joint disease) Atrial flutter PVD (peripheral vascular disease) Diabetes Surgical History 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 H/O aortic valve replacement with tissue graft H/O aortic valve replacement H/O foot surgery Family History Grandmother Diabetes Grandfather Diabetes Denies family history of CAD (coronary artery disease) Clotting disorder Dementia Chronic kidney disease (CKD) Suicide Anesthesia complication Bleeding disorder Lung disease Cancer Stroke Social History Smoking and tobacco/nicotine status: current every day tobacco/nicotine user cigarettes Packs smoked per day: 1 Years cigarettes smoked: 46 Alcohol intake: never Substance/Drug Use: never Lives independently: Yes (with girlfriend) Household members: significant other Marital status: Single service: No 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al status: disabled 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 Pets and animals: Yes Special araceli needs: No Agree to transfusion: Yes Data Anesthesia Cardiac Studies: Echocardiogram 12/14/22 Cardiac Event Monitor 01/13/23
[2023-05-07] MEDS: albuterol 2.5 mg/3 mL Neb INHALATION (08:54)
[2023-05-07 08:56] LABS: Basophils # 0.1 10^3/uL (0.0-0.1); Basophils % 0.8 %; Eosinophils # 0.2 10^3/uL (0.0-0.8); Eosinophils % 2.5 %; Hematocrit 28.2 % (37-53); Lymphocytes # 1.2 10^3/uL (0.8-4.8); Lymphocytes % 19.5 %; Mean Corpuscular HGB Conc 31.2 g/dL (30-55); Mean Corpuscular Hemoglobin 34.4 pg (27-33); Mean Corpuscular Volume 110.2 fl (82-101); Mean Platelet Volume 10.2 fL (7.4-10.4); Monocytes # 0.6 10^3/uL (0.2-0.9); Monocytes % 10.7 %; Neutrophils % 66.2 %; Nucleated Red Blood Cells % 0 %; Platelet Count 119 10^3/cmm (157-399); Red Blood Count 2.56 10^6/uL (3.85-5.65); Red Cell Distribution Width 20.4 % (12.1-15.1)
--- NOTE | 2023-05-07 09:02 | P.OP_ITS ---
Operative Report Date of procedure: 05/07/2023 Pre-op diagnosis: Contracture, right ankle M24.571 Contracture right foot M24.574 Nonpressure chronic ulcer right foot L97.524. Post-op diagnosis: Contracture, right ankle M24.571 Contracture right foot M24.574 Nonpressure chronic ulcer right foot L97.524. Procedure done: Right Achilles lengthening. CPT code 52764 Right third metatarsal osteotomy. CPT code 17115 Right fourth metatarsal osteotomy. CPT code 72586 Split thickness skin graft right foot. CPT code 45843 Surgical preparation of wound bed. CPT code 44921 Implants: 4-0 Vicryl, 4-0 nylon, 4-0 Monocryl Surgeon: Malachi Hernandez DPM Distilling Department Supervisor: JARROD Estimated blood loss: 5 mL See intraoperative documentation IV fluids: 0 Urine output: 0 Complications: No complications Brief History: Discussed surgical offloading to the right foot, would consist of Achilles lengthening to address equinus component as well as floating osteotomy to surgical offload the right forefoot. Discussed surgical risks, benefits and recovery times. Would require additional planning on his part to be able to remain nonweightbearing for 6 weeks postoperatively while he heals. This is something he is going to make arrangements for contact our clinic when he wishes to proceed. Continue wound care for active treatment of his right foot wound. He wishes to proceed with understanding of increased risk for postoperative infection and understands that this may lead to some level of amputation should he have complications postoperatively. I reviewed at length with the patient, the risks, potential complications, benefits, alternatives, expectations, and typical outcomes associated with the surgery. The risks and potential complications were explained in detail, including but not limited to infection, wound dehiscence or soft tissue complications, bleeding and hematoma, chronic edema, neuritis or nerve damage producing numbness or chronic pain, CRPS, failure to relieve pain or worsening pain, thick / painful / unsightly scar, limited motion / stiffness, malposition, delayed union, malunion, or nonunion, fracture, reaction to implants, anesthetic complications, venous thr omboembolism, and deformity recurrence. I discussed the notion of no regrets with the patient as it pertains to complications and outcomes. The patient seemed to understand the nature of the proposed care and required convalescence. They asked appropriate questions, answered to their satisfaction. They are aware no guarantees can be made as to a satisfactory outcome and they understand there may be other possible unforeseen complications or outcomes not listed here that will be treated accordingly if they arise. There were no written or implied guarantees given to the patient. They gave informed consent to proceed. Procedure: Under mild sedation the patient was brought to the operating room and remained on the gurney in supine position. A timeout was performed. Anesthesia was then administered by the anesthesia service. Local anesthesia was injected by myself consisting of 30 cc of one-to-one mixture 1% lidocaine and 0.5% Marcaine plain in a V-block fashion to the right proximal Achilles as well as fourth and fifth ray block to the right foot. Additional 1% lidocaine with epinephrine was infiltrated in a grid like fashion at the donor site planned out at the right proximal medial calf total of 10 cc. Right lower extremity was scrubbed, prepped and draped utilizing normal aseptic technique. Right foot was elevated and right thigh tourniquet was inflated to 250 mmHg. Attention was directed to the right ankle with dorsiflexion tested and intraoperatively and noted to be to neutral at the right ankle with contracted right Achilles tendon. Percutaneous lengthening of the Achilles tendon Haley style was performed with triple hemisection of the Achilles medial, lateral, medial by 1.5 cm each respectively. Post sharp release and lengthening the ankle joint dorsiflexion to the right lower extremity was approximately 12 degrees beyond neutral when loading intraoperatively with successful lengthening and still having a palpable intact Achilles tendon. All 3 incisions were irrigated with saline solution and closed with 4-0 nylon and covered with an OpSite. Attention was then directed to the right forefoot where prominent metatarsal parabola was appreciated, third and fourth metatarsals were plantarflexed and metatarsal heads of the third and fourth metatarsals were contributing to excessive pressure and the wound formation of the right plantar forefoot. A incision was performed directly over the third and fourth metatarsal distal diaphysis through skin with dissection carried down through subcutaneous tissue and down to the layer of the third and fourth metatarsal bone utilizing sharp and blunt technique. Care was taken to retract and preserve neurovascular and tendinous structures. All bleeders were ligated and cauterized as necessary. Utilizing a sagittal saw the right third and the right fourth metatarsals osteotomy was performed, these were floating osteotomies with obvious dorsi flexion appreciated intraoperatively once the ostomy was performed with a surgical offloading of the right third and fourth metatarsals appreciated intraoperatively more conducive to wound healing and more plantigrade foot. The incision was irrigated with saline solution and closed in a layered fashion with 4-0 Vicryl at the deep tissues and subcutaneous tissue as well as 4 nylon at skin. Attention was then directed to the proximal medial right calf where dermatome was utilized to harvest a split-thickness skin graft measuring 2 cm x 2 cm without complication, prior to harvesting the skin was lubricated with mineral oil and post split thickness skin graft harvesting the site was cleansed and irrigated with saline solution, blotted with topical thrombin and dressed with Adaptic, fluff and OpSite. Skin graft was then placed on the back table to be prepped for the donor site with a mesher. Attention was directed to the right plantar forefoot where a full-thickness wound was appreciated measuring 2 cm x 1.5 cm x 0.3 cm with fibrotic base. The wound bed was then prepped surgically with 15 blade and pickups for split thickness skin graft this was an excisional debridement of all devitalized tissue and fibrotic tissue, fibrin, biofilm, slough and devitalized subcutaneous tissue down to healthy base. The incision was irrigated with saline solution, after surgical prep of wound bed the wound surface area measured 2.5 cm x 1.5 cm x 0.3 cm. Split-thickness skin graft was then secured utilizing 4-0 Monocryl circumferentially and dressed with Adaptic and application of a disposable [employer] 7-day juanito wound VAC with excellent seal, no leaks appreciated. Wound VAC was functioning. Further dressings of the right lower extremity were sterile 4 x 4 gauze, Kerlix followed by application of multilayer well-padded posterior splint with ankle joint held in neutral position. Tourniquet was deflated and a prompt hyperemic response was noted to the distal digits of the right foot. Patient tolerated the procedure and anesthesia well and was transferred to the PACU with vital signs stable and vascular status intact. Following a period of postoperative monitoring he will be discharged home, he was given at home care instructions, scheduled follow-up and my cell phone number to contact with any postoperative questions or concerns.
--- NOTE | 2023-05-07 09:02 | W.PM.OPSUD ---
Surgery/Procedure H&P Update DATE OF PROCEDURE: May 07, 2023 DATE H&P PERFORMED: 04/29/23 H&P UPDATE INFORMATION: I have reviewed H&P completed within last 30 days, I have examined patient prior to procedure, No changes to prior documentation and H&P is in [facility] EMR on date indicated PREOP DIAGNOSIS: Chronic ulcer right foot PLANNED PROCEDURE: Operation Date: 05/07/23 09:20 Proposed Procedures p Tendon Lengthening Foot/ Right Achilles lengthening(Right) - Malachi Hernandez DPM s Metatarsal Osteotomy/ Right third metatarsal osteotomy, Right fourth metatarsal osteotomy(Right) - KENNY Walker Skin Graft Application/ Split thickness skin graft right foot,(Right) - Malachi Hernandez DPM
[2023-05-07 09:12] LABS: Alanine Aminotransferase 16 U/L (0-41); Albumin Level 3.7 g/dL (3.5-5.2); Alkaline Phosphatase 243 U/L (40-130); Anion Gap 16.9 (5-19); Aspartate Amino Transferase 31 U/L (0-40); Blood Urea Nitrogen 46 mg/dL (8-23); Calcium 9.6 mg/dL (8.5-10.5); Carbon Dioxide 32 mmol/L (22-29); Chloride 93 mmol/L (98-107); Creatinine Clr Calc Pharmacy 15.1958; Glomerular Filtration Rate 9.5 mL/min (90-130); Glucose 205 mg/dL (65-115); Osmolality Calculated 302 mOsm/kg (285-295); Potassium 4.9 mmol/L (3.5-5.1); Sodium 137 mmol/L (136-145); Total Bilirubin 0.8 mg/dL (0.15-1.2); Total Protein 6.7 g/dL (6.6-8.7)
[2023-05-07] MEDS: ceFAZolin 2,000 MG in sodium chloride 0.9% (plus) 50 ML 100 MG IV (09:25)
[2023-05-07] MEDS: thrombin 5,000 unit SDV 5000 UNIT XX (09:56)
[2023-05-07] MEDS: lidocaine-epi 1% 20 mL INJ INJECTION (09:59)
[2023-05-07] MEDS: BUPivacaine 0.5% INJ 30 mL 15 ML INJECTION (10:00)
[2023-05-07] MEDS: lidocaine 2% INJ 20 mL INJECTION (10:00)
[2023-05-07] MEDS: mineral oil light VIAL 10 mL TOPICAL (10:02)
--- NOTE | 2023-05-07 11:34 | W.PM.BPON ---
Date of Procedure: 05/07/23 Surgeon: Malachi Hernandez DPM Metal Furniture Assembly Supervisor(s): JARROD Procedure(s) performed: Right Achilles lengthening, split thickness skin graft right lower extremity, floating osteotomy right third and fourth metatarsal Findings of the procedure(s): None Estimated blood loss: 5 Specimen(s) removed: None Post-operative diagnosis: Nonpressure chronic ulceration right foot exposed to fat layer. Forefoot equinus, right. Ankle equinus, right. No complications with surgery or anesthesia.
--- NOTE | 2023-05-07 12:20 | ANE.PACU2 ---
Inpatient post-anesthesia follow up: Airway intact: Yes Vital signs: Temperature 97.3 F Pulse Rate 82 Respiratory Rate 18 Blood Pressure 147/73 Pulse Oximetry 95 Oxygen Delivery Me thod Nasal Cannula Oxygen Flow Rate 2 Fraction of Inspir ed Oxygen Hydration adequate: Yes Nausea and vomiting: No Pain level: 1 Mental status: Baseline
== END 2023-05-07 12:18 | disposition home or self-care (01) ==
PROVIDERS: Anesthesiology; PCP Family Medicine; Visit Provider Podiatrist Foot & Ankle Surgery
PROC: (CPT 28261; principal; 2023-05-07 09:10)
PROC: (CPT 15004; 2023-05-07 09:10)
PROC: (CPT 15004; 2023-05-07 09:10)
DX: M24.571 Contracture, right ankle (principal); M24.574 Contracture, right foot; L97.524 Non-pressure chronic ulcer of other part of left foot with necrosis of bone; F17.210 Nicotine dependence, cigarettes, uncomplicated; J44.9 Chronic obstructive pulmonary disease, unspecified; E11.22 Type 2 diabetes mellitus with diabetic chronic kidney disease; I12.9 Hypertensive chronic kidney disease with stage 1 through stage 4 chronic kidney disease, or unspecified chronic kidney disease; N18.6 End stage renal disease; Z99.2 Dependence on renal dialysis; E66.01 Morbid (severe) obesity due to excess calories; Z68.33 Body mass index [BMI] 33.0-33.9, adult; G20.A1 Parkinson's disease without dyskinesia, without mention of fluctuations; E78.5 Hyperlipidemia, unspecified; G47.33 Obstructive sleep apnea (adult) (pediatric)
CPT/HCPCS: 15004; 15120; 27685; 28308 ×2; 36415; 36416; 80053; 82962; 85025; 94640; J0690; J2250; J2704; J3010; J3490; J7030; J7613

== ENCOUNTER → 2023-05-13 14:02 | Outpatient (BNVA) | payer MEDICARE, SELFPAY | PROVIDERS: PCP Family Medicine; Visit Provider Podiatrist Foot & Ankle Surgery | DX: Z98.890 Other specified postprocedural states (principal); M21.41 Flat foot [pes planus] (acquired), right foot; M21.42 Flat foot [pes planus] (acquired), left foot; M20.41 Other hammer toe(s) (acquired), right foot; M20.42 Other hammer toe(s) (acquired), left foot; I73.9 Peripheral vascular disease, unspecified; E11.42 Type 2 diabetes mellitus with diabetic polyneuropathy; Z79.4 Long term (current) use of insulin | CPT/HCPCS: 29445 ==

== ENCOUNTER 2023-05-15 09:46 | Inpatient (IN) | payer MEDICARE, SELFPAY ==
[2023-05-15] VITALS (59 sets, daily range): BP systolic 127–166; BP diastolic 58–93; PULSE 61–91; RESP 14–22; TEMP 36.6–36.9; O2SAT 96–100; BMI 34.2
--- NOTE | 2023-05-15 09:56 | ECG_ITS ---
[facility] Test Date: 2023-05-15 Pat Name: Richard Huffman Department: Room: Gender: Male Trench Digger: : 1960 Requested By: Lauro Franks Order Number: [id number] Kisha MD: Sahyan Stout M.D. Measurements Intervals Lottie Rate: 85 P: 0 ME: 0 QRS: -45 QRSD: 158 T: 89 QT: 455 QTc: 542 Interpretive Statements ATRIAL FIBRILLATION INTRAVENTRICULAR CONDUCTION DELAY [130+ ms QRS DURATION] POSSIBLE LATERAL MYOCARDIAL INFARCTION , OF INDETERMINATE AGE [30 ms Q WAVE IN I/aVL/V5/V6] Compared to ECG 04/15/2023 00:53:06 Myocardial infarct finding now present Sinus rhythm no longer present Left-axis deviation no longer present Electronically Signed On 05-15-2023 10:14:00 [employer] MANAGER by Shayan Stout M.D. [id number]
--- NOTE | 2023-05-15 09:56 | XRR_ITS ---
PROCEDURE INFORMATION: Exam: XR Chest Exam date and time: 05/15/2023 10:10 AM Age: 62 years old Clinical indication: Dyspnea; Additional info: Dyspnea/cough TECHNIQUE: Imaging protocol: Radiologic exam of the chest. Views: 1 view. COMPARISON: CR (CHEST, ) 04/15/2023 12:00 AM FINDINGS: Tubes, catheters and devices: Stable right central venous catheter terminating at the right atrium. Lungs: Mild bilateral linear atelectasis versus scarring. Subtle bilateral lower lung ground-glass attenuation. No consolidation. Pleural spaces: Stable small right pleural effusion. No pneumothorax. Heart/Mediastinum: Borderline cardiomegaly, stable. Prosthetic aortic valve. Vasculature: Aortic atherosclerotic calcification. Bones/joints: Prior median sternotomy. XR/XR chest 1V portable [id number] IMPRESSION: 1. Subtle lower lung ground-glass attenuation could represent edema, infectious or inflammatory pneumonitis. 2. Stable small right pleural effusion.
[2023-05-15 10:11] LABS: ABG PCO2 45.7 mmHg (35-45); ABG PH Result 7.48 (7.35-7.45); Alveolar-Arterial Oxygen Gradi 2.5 mmHg (5-10); Arterial Blood Gas Hematocrit 26.9 % (42-52); Base Excess ABG 9.5 mmol/L (-2.0-2.0); Blood Gas Allen Test Pos; Blood Gas Operator Identificat WALCI; Blood Gas Sample Site Radial, right; Blood Gas Sample Type Arterial; Carboxyhemoglobin 3.4 %THgb (0.4-20.1); Ionized Calcium Level - ABG 1.2 mmol/L (1.1-1.4); Methemoglobin 0.9 % (0.4-1.5); Oxygen Device NC; Oxygen Saturation ABG 96.2; PO2 ABG 74.5 mmHg (80.0-100.0); Potassium Level - ABG 3.7 mmol/L (3.5-5.0); Total Hemoglobin 8.8 g/dL (14-18)
[2023-05-15] MEDS: dexamethasone 10 mg/mL INJ IM (10:13)
[2023-05-15 10:15] LABS: Basophils # 0.1 10^3/uL (0.0-0.1); Eosinophils # 0.2 10^3/uL (0.0-0.8); Eosinophils % 2.8 %; Hematocrit 27.7 % (37-53); Lymphocytes # 1.2 10^3/uL (0.8-4.8); Lymphocytes % 19.7 %; Mean Corpuscular Hemoglobin 33.6 pg (27-33); Mean Corpuscular Volume 108.2 fl (82-101); Mean Platelet Volume 9.7 fL (7.4-10.4); Monocytes # 0.7 10^3/uL (0.2-0.9); Monocytes % 10.9 %; Neutrophils # 3.97 10^3/uL (1.8-7.7); Neutrophils % 65.3 %; Nucleated Red Blood Cells % 0 %; Platelet Count 146 10^3/cmm (157-399); Red Blood Count 2.56 10^6/uL (3.85-5.65); Red Cell Distribution Width 17.5 % (12.1-15.1); White Blood Count 6.08 10^3/uL (3.29-11.43)
[2023-05-15 10:32] LABS: Alanine Aminotransferase 11 U/L (0-41); Albumin Level 3.9 g/dL (3.5-5.2); Alkaline Phosphatase 289 U/L (40-130); Aspartate Amino Transferase 29 U/L (0-40); Blood Urea Nitrogen 27 mg/dL (8-23); Carbon Dioxide 32 mmol/L (22-29); Chloride 90 mmol/L (98-107); Glomerular Filtration Rate 13.1 mL/min (90-130); Glucose 172 mg/dL (65-115); Osmolality Calculated 291 mOsm/kg (285-295); Sodium 136 mmol/L (136-145); Total Bilirubin 0.9 mg/dL (0.15-1.2); Total Protein 6.9 g/dL (6.6-8.7)
[2023-05-15 10:33] LABS: Creatinine Clr Calc Pharmacy 20.3913
[2023-05-15 10:41] LABS: Troponin(5th) Baseline 347 ng/L (0-15)
[2023-05-15] MEDS: ipratropium-albuterol 3 mL Neb INHALATION ×4 (10:47→23:23)
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
--- NOTE | 2023-05-15 11:05 | PC.PHAR ---
pt states he takes care of his own medications-pt states he takes nitro er 2.5mg qam pt states fills at [facility] called [facility] and ross [facility] both states not filled that for pt-pt states he takes hydralazine 50mg bid [facility] last filled jan 11 2023 90d/s for 50mg tid-pt states he is still taking doxycycline mono 100mg qam [facility] last filled dec 31 2022 90d/s-notes are made in the pharmacy comments
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
--- NOTE | 2023-05-15 11:56 | ECG_ITS ---
[facility] Test Date: 2023-05-15 Pat Name: Richard Huffman Department: Room: ICU12 Gender: Male Picture Enlarger: : 1960 Requested By: Lauro Franks Order Number: [id number] Kisha MD: Shayan Stout M.D. Measurements Intervals [place] Rate: 87 P: 0 MA: 0 QRS: -49 QRSD: 137 T: 32 QT: 434 QTc: 524 Interpretive Statements SINUS RHYTHM RIGHT BUNDLE BRANCH BLOCK [120+ ms QRS DURATION, UPRIGHT V1, 40+ ms S IN I/aVL/V4/V5/V6] LEFT ANTERIOR FASCICULAR BLOCK [QRS AXIS <= -45, QR IN I, RS IN II] VOLTAGE CRITERIA FOR LVH [MEETS CRITERIA IN ONE OF: R(aVL), S(V1), R(V5), R(V5/V6)+S(V1)] Compared to ECG 05/15/2023 15:47:28 Right bundle-branch block now present Left anterior fascicular block now present Left ventricular hypertrophy now present Intraventricular conduction delay no longer present Electronically Signed On 05-17-2023 9:38:48 [employer]PERVISOR [employer]AND[employer] by Shayan Stout M.D. [email or web address]
--- NOTE | 2023-05-15 12:09 | XRR_ITS ---
PROCEDURE INFORMATION: Exam: XR Chest Exam date and time: 05/15/2023 12:13 PM Age: 62 years old Clinical indication: Device placement; Ett placement (vent status); Additional info: Post intubation TECHNIQUE: Imaging protocol: Radiologic exam of the chest. Views: 1 view. COMPARISON: 1. CR (CHEST, ) 05/15/2023 10:10 AM 2. CR (CHEST, ) 04/15/2023 12:00 AM FINDINGS: Tubes, catheters and devices: Endotracheal tube terminates 4 cm above the marito. Stable right central venous catheter terminates at the right atrium. Lungs: Mild right lung linear atelectasis versus scarring. No consolidation. Mildly decreased subtle bilateral lower lung ground-glass attenuation. Pleural spaces: Stable small right pleural effusion. No pneumothorax. Heart/Mediastinum: Borderline cardiomegaly, stable. Prosthetic aortic valve. Vasculature: Aortic atherosclerotic calcification. Bones/joints: Prior median sternotomy. XR/XR chest 1V portable [id number] IMPRESSION: 1. Interval ET tube placement, adequate positioning. 2. Mildly decreased lower lung ground-glass attenuation.
[2023-05-15] MEDS: midazolam hcl 100 MG/100 ML BAG IV (12:11)
[2023-05-15] MEDS: fentaNYL 1,000 MCG/100 ML BAG 2.5 MCG IV (12:13)
[2023-05-15] MEDS: etomidate 2 mg/mL INJ SDV 10 mL 20 MG IVP (12:20)
[2023-05-15] MEDS: succinylcholine 20 mg/mL SDV 10mL 100 MG IVP (12:21)
[2023-05-15] MEDS: propofol 10 mg/mL SDV 20 mL 100 MG IVP (12:32)
[2023-05-15] MEDS: sodium chloride 0.9% 1,000 ML 100 ML IV ×2 (13:11→23:13)
[2023-05-15] MEDS: propofol 1,000 MG/100 ML INJ 3.14999999999999991 MG IV (13:11)
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
[2023-05-15 14:06] LABS: Troponin 5 2HR Delta -24.7 ABS# (0-10)
[2023-05-15 14:12] LABS: Troponin 5 2HR 322.3 ng/L (0-15)
--- NOTE | 2023-05-15 14:16 | XRR_ITS ---
PROCEDURE INFORMATION: Exam: XR Chest Exam date and time: 05/15/2023 3:34 PM Age: 62 years old Clinical indication: Device placement; Ng tube; Additional info: Og tube placement TECHNIQUE: Imaging protocol: Radiologic exam of the chest. Views: 1 view. COMPARISON: 1. CR (CHEST, ) 05/15/2023 12:13 PM 2. CR (CHEST, ) 05/15/2023 10:10 AM FINDINGS: Tubes, catheters and devices: Orogastric tube terminates in the stomach. Stable right central venous catheter terminates at the right atrium. Lungs: Upper lungs outside the field of view. Interval development of thickened bandlike right lower lung opacity and increased medial retrocardiac left lower lobe streaky opacification. Pleural spaces: Small right pleural effusion. Heart/Mediastinum: Borderline cardiomegaly, stable. Prosthetic aortic valve. Vasculature: Aortic arch atherosclerotic calcification. Bones/joints: Prior median sternotomy. XR/XR chest 1V portable [id number] IMPRESSION: 1. Interval orogastric tube terminates in the stomach. 2. Increased bilateral lower lung atelectasis.
[2023-05-15 14:51] LABS: Blood Gas Allen Test Pos; Blood Gas Sample Site Radial, left; Blood Gas Sample Type Arterial; Ionized Calcium Level - ABG 1.2 mmol/L (1.1-1.4); PO2 FiO2 Ratio Arterial Blood 0
[2023-05-15] MEDS: methylPREDNISolone sod succ 40 mg/mL INJ IVP ×2 (14:56→22:16)
[2023-05-15] MEDS: lidocaine 1% INJ 10 mL (per mL) XX (15:05)
[2023-05-15 15:18] LABS: Apprearance, Bronch Wash Cloudy (CLEAR); Color, Bronc Wash Colorless; Total Cells Counted Bronch 200
[2023-05-15 15:20] LABS: PATH Referral Yes
--- NOTE | 2023-05-15 15:47 | ECG_ITS ---
[facility] Test Date: 2023-05-15 Pat Name: Richard Huffman Department: Room: ICU12 Gender: Male Implementation Consultant: : 1960 Requested By: Lauro Franks Order Number: [id number] Kisha MD: Shayan Stout M.D. Measurements Intervals [place] Rate: 64 P: 76 MD: 195 QRS: -46 QRSD: 143 T: -14 QT: 499 QTc: 519 Interpretive Statements SINUS RHYTHM INTRAVENTRICULAR CONDUCTION DELAY [130+ ms QRS DURATION] Compared to ECG 05/15/2023 10:12:49 Atrial fibrillation no longer present Myocardial infarct finding no longer present Electronically Signed On 05-17-2023 9:39:33 BARN HAND by Shayan Stout M.D. [id number]
[2023-05-15 16:40] LABS: Troponin 5 6HR 309.3 ng/L (0-15); Troponin 5 6HR Delta -37.7 ng/L (0-12)
[2023-05-15] MEDS: pantoprazole DR 40 mg Tablet PO (17:45)
[2023-05-15] MEDS: metoprolol succinate ER (24 HR) 50 mg Tablet PO (17:45)
[2023-05-15] MEDS: amiodarone 200 mg Tablet 100 MG PO (17:45)
[2023-05-15 18:12] LABS: ABG PH Result 7.44 (7.35-7.45); Alveolar-Arterial Oxygen Gradi 44.7 mmHg (5-10); Arterial Blood Gas Hematocrit 26.4 % (42-52); Base Excess ABG 9.5 mmol/L (-2.0-2.0); Blood Gas Operator Identificat MONRP; Carboxyhemoglobin 1.5 %THgb (0.4-20.1); HCO3 ABG 34.9 mmol/L (22-26); HGB O2 Sat 97.7 % (95-100); Methemoglobin 0.8 % (0.4-1.5); Oxygen Device VENT; Potassium Level - ABG 3.8 mmol/L (3.5-5.0); Total Hemoglobin 8.6 g/dL (14-18)
[2023-05-15] MEDS: propofol 1,000 MG/100 ML INJ 18.8999999999999986 MG IV (19:56)
[2023-05-15] MEDS: lisinopril 20 mg Tablet PO (20:21)
[2023-05-15] MEDS: chlorhexidine gluconate 4% Btl 118 mL 1 APPLIC TOPICAL (20:59)
[2023-05-15] MEDS: fentaNYL 1,000 MCG/100 ML BAG 10 MCG IV (21:15)
[2023-05-16] VITALS (112 sets, daily range): BP systolic 82–160; BP diastolic 44–85; PULSE 65–97; RESP 14–23; TEMP 36.2–36.9; O2SAT 90–100; BMI 34.2
[2023-05-16 01:40] LABS: Glucose Point of Care 224 mg/dL (70-110)
[2023-05-16] MEDS: propofol 1,000 MG/100 ML INJ 18.8999999999999986 MG IV ×3 (01:51→18:33)
[2023-05-16 02:49] LABS: Glucose Point of Care 226 mg/dL (70-110)
[2023-05-16] MEDS: insulin lispro 100 unit/1 mL SUBCUT ×4 (02:50→20:10)
--- NOTE | 2023-05-16 03:11 | PC.NURSE ---
Insulin Patient's blood glucose [address] Moon notified; order placed by physician for low dose sliding scale insulin SUBQ Q6H. See MAR for details.
[2023-05-16] MEDS: ipratropium-albuterol 3 mL Neb INHALATION ×6 (03:24→23:52)
[2023-05-16 04:26] LABS: INR 1.07 (0.8-1.2)
[2023-05-16 04:31] LABS: Basophils % 0.1 %; Hematocrit 27.9 % (37-53); Lymphocytes # 0.5 10^3/uL (0.8-4.8); Lymphocytes % 6.7 %; Mean Corpuscular HGB Conc 31.2 g/dL (30-55); Mean Corpuscular Hemoglobin 33.3 pg (27-33); Mean Corpuscular Volume 106.9 fl (82-101); Monocytes # 0.1 10^3/uL (0.2-0.9); Monocytes % 1.4 %; Neutrophils # 6.56 10^3/uL (1.8-7.7); Neutrophils % 91.2 %; Nucleated Red Blood Cells % 0 %; Platelet Count 140 10^3/cmm (157-399); Red Blood Count 2.61 10^6/uL (3.85-5.65); Red Cell Distribution Width 16.8 % (12.1-15.1); White Blood Count 7.19 10^3/uL (3.29-11.43)
[2023-05-16 04:36] LABS: Alanine Aminotransferase 12 U/L (0-41); Albumin Level 3.5 g/dL (3.5-5.2); Alkaline Phosphatase 245 U/L (40-130); Anion Gap 17.4 (5-19); Aspartate Amino Transferase 26 U/L (0-40); Blood Urea Nitrogen 35 mg/dL (8-23); Carbon Dioxide 30 mmol/L (22-29); Chloride 92 mmol/L (98-107); Creatinine Clr Calc Pharmacy 17.0545; Globulin 3.3 g/dL (1.3-4.6); Glomerular Filtration Rate 10.7 mL/min (90-130); Glucose 204 mg/dL (65-115); Magnesium 2.3 mg/dL (1.7-2.3); Osmolality Calculated 294 mOsm/kg (285-295); Phosphorus 5.3 mg/dL (2.5-4.5); Potassium 4.4 mmol/L (3.5-5.1); Sodium 135 mmol/L (136-145); Total Bilirubin 0.7 mg/dL (0.15-1.2); Total Protein 6.8 g/dL (6.6-8.7)
[2023-05-16 04:37] LABS: ABG PCO2 49.1 mmHg (35-45); ABG PH Result 7.42 (7.35-7.45); Alveolar-Arterial Oxygen Gradi 14.1 mmHg (5-10); Arterial Blood Gas Hematocrit 29.8 % (42-52); Base Excess ABG 6.2 mmol/L (-2.0-2.0); Blood Gas Allen Test Pos; Blood Gas Operator Identificat JB; Blood Gas Sample Site Radial, right; Blood Gas Sample Type Arterial; Carboxyhemoglobin 1.8 %THgb (0.4-20.1); HCO3 ABG 31.6 mmol/L (22-26); HGB O2 Sat 97.8 % (95-100); Ionized Calcium Level - ABG 1.2 mmol/L (1.1-1.4); Oxygen Device VENT; Oxygen Saturation ABG 99.6; PO2 FiO2 Ratio Arterial Blood 0; Potassium Level - ABG 4.1 mmol/L (3.5-5.0); Total Hemoglobin 9.7 g/dL (14-18)
[2023-05-16] MEDS: methylPREDNISolone sod succ 40 mg/mL INJ IVP ×3 (05:52→21:46)
[2023-05-16] MEDS: fentaNYL 1,000 MCG/100 ML BAG 10 MCG IV ×2 (05:52→14:11)
--- NOTE | 2023-05-16 06:49 | XRR_ITS ---
PROCEDURE INFORMATION: Exam: XR Chest Exam date and time: 05/16/2023 7:52 AM Age: 62 years old Clinical indication: Dyspnea and shortness of breath; Prior surgery; Surgery date: 6+ months; Surgery type: Cabg; Additional info: Intubated patient TECHNIQUE: Imaging protocol: Radiologic exam of the chest. Views: 1 view. COMPARISON: CR (CHEST, ) 05/15/2023 3:34 PM FINDINGS: Tubes, catheters and devices: Right internal jugular dual lumen catheter unchanged position. ET tube and feeding tubes are in stable position. Lungs: There are bilateral small pleural effusions with lower lobe atelectasis. Pleural spaces: See Lungs finding. Heart/Mediastinum: Mild cardiomegaly. Bones/joints: Mild degenerative disease of the left acromioclavicular and left glenohumeral joints. Chronic fracture deformity of lateral arch of the right 6th rib. Post CABG. XR/XR chest 1V portable [id number] IMPRESSION: Small bilateral pleural effusions with bibasilar atelectasis.
[2023-05-16] MEDS: budesonide 0.5 mg/2 mL Neb INHALATION ×2 (08:08→20:37)
[2023-05-16] MEDS: isosorbide mononitrate ER 30 mg Tablet PO (08:16)
[2023-05-16] MEDS: metoprolol succinate ER (24 HR) 50 mg Tablet PO ×2 (08:16→17:06)
[2023-05-16] MEDS: bumetanide 1 mg Tablet 2 MG PO ×2 (08:16→17:06)
[2023-05-16 08:19] LABS: Glucose Point of Care 197 mg/dL (70-110)
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
[2023-05-16 10:06] LABS: Hepatitis B Surface AB 113.2 (11.5-1000); Hepatitis B Surface Antigen Non-Reactive (Nonreactive)
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
[2023-05-16] MEDS: propofol 1,000 MG/100 ML INJ 15.75 MG IV (12:52)
[2023-05-16] MEDS: heparin, porcine 1,000 unit/mL INJ 10 mL 1000 UNIT IV (13:30)
[2023-05-16 14:10] LABS: Glucose Point of Care 180 mg/dL (70-110)
[2023-05-16] MEDS: albumin 12.5 GM/50 ML VIAL IV (15:00)
[2023-05-16] MEDS: epoetin alfa 1000 Unit/0.05 mL (ESRD) 20000 UNIT SUBCUT (16:22)
[2023-05-16] MEDS: heparin, porcine 1,000 unit/mL INJ 10 mL 10000 UNIT INTRACATH (16:29)
[2023-05-16] MEDS: amiodarone 200 mg Tablet 100 MG PO (17:06)
[2023-05-16] MEDS: pantoprazole DR 40 mg Tablet PO (17:06)
[2023-05-16] MEDS: silver sulfadiazine cream 1% 50 gm 1 APPLIC TOPICAL (17:07)
[2023-05-16 19:36] LABS: Glucose Point of Care 194 mg/dL (70-110)
--- NOTE | 2023-05-16 19:50 | PC.NURSE ---
Upon arrival to shift, patient's fentanyl was running at 125 mcg/hr. Mar changed to reflect rate.
[2023-05-16] MEDS: ropinirole 1 mg Tablet PO (20:10)
[2023-05-16] MEDS: lisinopril 20 mg Tablet PO (20:10)
[2023-05-16] MEDS: fentaNYL 1,000 MCG/100 ML BAG 15 MCG IV (21:46)
[2023-05-17] VITALS (96 sets, daily range): BP systolic 101–175; BP diastolic 47–126; PULSE 78–109; RESP 10–25; TEMP 36.7–37.7; O2SAT 93–100; BMI 33.8
[2023-05-17] MEDS: propofol 1,000 MG/100 ML INJ 18.8999999999999986 MG IV (01:53)
[2023-05-17] MEDS: insulin lispro 100 unit/1 mL SUBCUT ×4 (02:17→20:26)
[2023-05-17] MEDS: chlorhexidine gluconate 4% Btl 118 mL 1 APPLIC TOPICAL (03:38)
[2023-05-17] MEDS: ipratropium-albuterol 3 mL Neb INHALATION ×5 (03:48→20:30)
[2023-05-17 04:37] LABS: Basophils % 0.1 %; Hematocrit 28.1 % (37-53); Lymphocytes # 0.5 10^3/uL (0.8-4.8); Lymphocytes % 4.4 %; Mean Corpuscular HGB Conc 30.6 g/dL (30-55); Mean Corpuscular Hemoglobin 34.3 pg (27-33); Mean Platelet Volume 9.3 fL (7.4-10.4); Monocytes # 0.4 10^3/uL (0.2-0.9); Monocytes % 3.6 %; Neutrophils # 11.02 10^3/uL (1.8-7.7); Neutrophils % 90.6 %; Nucleated Red Blood Cells % 0.3 %; Platelet Count 165 10^3/cmm (157-399); Red Blood Count 2.51 10^6/uL (3.85-5.65); Red Cell Distribution Width 18.4 % (12.1-15.1); White Blood Count 12.16 10^3/uL (3.29-11.43)
[2023-05-17] MEDS: fentaNYL 1,000 MCG/100 ML BAG 10 MCG IV (04:41)
[2023-05-17 04:57] LABS: Alanine Aminotransferase 9 U/L (0-41); Albumin Level 3.7 g/dL (3.5-5.2); Alkaline Phosphatase 214 U/L (40-130); Anion Gap 18.3 (5-19); Aspartate Amino Transferase 23 U/L (0-40); Blood Urea Nitrogen 28 mg/dL (8-23); Calcium 8.8 mg/dL (8.5-10.5); Carbon Dioxide 26 mmol/L (22-29); Chloride 94 mmol/L (98-107); Creatinine Clr Calc Pharmacy 22.3968; Globulin 2.9 g/dL (1.3-4.6); Glomerular Filtration Rate 14.5 mL/min (90-130); Glucose 182 mg/dL (65-115); Magnesium 2.1 mg/dL (1.7-2.3); Osmolality Calculated 288 mOsm/kg (285-295); Phosphorus 4.8 mg/dL (2.5-4.5); Potassium 4.3 mmol/L (3.5-5.1); Sodium 134 mmol/L (136-145); Total Bilirubin 0.6 mg/dL (0.15-1.2); Total Protein 6.6 g/dL (6.6-8.7)
[2023-05-17] MEDS: metOLazone 5 MG Tablet PO (05:18)
[2023-05-17] MEDS: methylPREDNISolone sod succ 40 mg/mL INJ IVP ×3 (05:18→22:04)
[2023-05-17] MEDS: escitalopram 10 mg Tablet PO ×2 (05:18→11:07)
[2023-05-17 05:28] LABS: Blood Gas Operator Identificat JB; Blood Gas Sample Type Arterial; Ionized Calcium Level - ABG 1.2 mmol/L (1.1-1.4); Oxygen Device VENT; PO2 FiO2 Ratio Arterial Blood 0
[2023-05-17 05:35] LABS: Glucose Point of Care 202 mg/dL (70-110)
[2023-05-17 05:47] LABS: ABG PCO2 46.7 mmHg (35-45); Arterial Blood Gas Hematocrit 28.7 % (42-52); Base Excess ABG 3.7 mmol/L (-2.0-2.0); Blood Gas Sample Site Brachial, left; HCO3 ABG 29.1 mmol/L (22-26); HGB O2 Sat 93.6 % (95-100); Methemoglobin 0.8 % (0.4-1.5); Oxygen Saturation ABG 96.3; PO2 ABG 78.8 mmHg (80.0-100.0); Potassium Level - ABG 4.1 mmol/L (3.5-5.0); Total Hemoglobin 9.4 g/dL (14-18)
[2023-05-17] MEDS: propofol 1,000 MG/100 ML INJ 15.75 MG IV (06:42)
[2023-05-17 07:35] LABS: Glucose Point of Care 222 mg/dL (70-110)
[2023-05-17] MEDS: budesonide 0.5 mg/2 mL Neb INHALATION ×2 (08:09→20:30)
--- NOTE | 2023-05-17 08:21 | PC.RESP ---
BRONCH SETUP NO WASH. NEIL. WELL
[2023-05-17] MEDS: lidocaine 1% INJ 10 mL (per mL) XX (08:26)
[2023-05-17] MEDS: bumetanide 1 mg Tablet 2 MG PO ×2 (08:49→17:45)
[2023-05-17] MEDS: metoprolol tartrate 50 mg Tablet PO ×2 (08:49→20:35)
[2023-05-17] MEDS: silver sulfadiazine cream 1% 50 gm 1 APPLIC TOPICAL ×2 (08:53→17:46)
--- NOTE | 2023-05-17 09:04 | XRR_ITS ---
PROCEDURE INFORMATION: Exam: XR Chest Exam date and time: 05/17/2023 9:32 AM Age: 62 years old Clinical indication: Device placement; Ett placement (vent status); Prior surgery; Surgery date: 6+ months; Surgery type: Cabg; Additional info: Intubated TECHNIQUE: Imaging protocol: Radiologic exam of the chest. Views: 1 view. COMPARISON: 1. CR (CHEST, ) 05/16/2023 7:52 AM 2. CR (CHEST, ) 05/15/2023 3:34 PM 3. CR (CHEST, ) 05/15/2023 12:13 PM FINDINGS: Tubes, catheters and devices: Endotracheal tube terminates 4 cm above the marito. Enteric tube courses below the left hemidiaphragm and terminates beyond the field of view. Right IJ central venous catheter terminates at the right atrium. Lungs: Mild bibasilar atelectasis. Pleural spaces: Small bilateral pleural effusions. No pneumothorax. Heart/Mediastinum: Borderline cardiomegaly, stable. Prosthetic aortic valve. Vasculature: Aortic atherosclerotic calcification. Bones/joints: Prior median sternotomy. Mild bilateral shoulder degenerative change. XR/XR chest 1V portable [id number] IMPRESSION: 1. Stable support structures. 2. Small bilateral pleural effusions and basilar atelectasis.
[2023-05-17] MEDS: heparin, porcine 1,000 unit/mL INJ 10 mL 1000 UNIT IV (09:30)
--- NOTE | 2023-05-17 09:32 | P.PN_ITS ---
Subjective 2 Subjective: remans on vent Medications: Reviewed: Yes Vitals/I&O/Wt Last Vital Signs Temp 99.1 F 05/17/23 07:22 Pulse 101 H 05/17/23 08:22 Resp 18 05/17/23 08:00 BP 135/62 05/17/23 07:15 Pulse Ox 97 05/17/23 08:00 O2 Del Method Mechanical Ventilation 05/17/23 08:00 O2 Flow Rate 2 05/15/23 11:15 FiO2 30 05/17/23 08:00 05/16/23 05/17/23 05/17/23 22:59 06:59 14:59 Intake Total 539.512 / 1662.012 365.203 / 2027.215 113.795 / 113.795 Output Total 2925 / 2925 50 / 2975 Balance -2385.488 / -1262.988 315.203 / -947.785 113.795 / 113.795 Weight last 48 hrs Weight 103.929 kg Weight 105.6 kg Weight 104.961 kg Weight 105 kg Weight 105 kg Physical Exam 2 Narrative: Intubated , sedated S1S2 RRR per report Lngs clear per report No edema Urinary Catheter Management: Holly: Cath Placed During This Visit: yes Reason for Continuing Indwelling Catheter: Accurate Measurement of Urinary Output in Critically Ill Patients Urinary Catheter Date of Insertion: 05/15/23 Urinary Catheter Time of Insertion: 13:55 Data 05/17/23 04:20 05/17/23 04:20 Micro: Microbiology 05/15/23 13:50 Gram Stain - Final Lung Right Middle Lobe Bronchoalveolar Lavage Culture - Preliminary 05/15/23 12:10 Gram Stain - Final Sputum - Endotracheal Tube Aspirate Sputum Culture - Preliminary A&P Assessment and plan (1) ESRD on hemodialysis: Plan 1. End-stage renal disease: On Wednesday schedule as outpatient,HD yesterday and again today for volume removal to facilitate probable extubation . Patient not on pressors, ultrafiltration as tolerated 2. History of hypertension: Blood pressure stable 3. Acute on chronic respiratory failure, multifactorial, currently intubated 4. Anemia: [place] with HD 5. History of prior AVR Patient evaluated using audiovisual cart. Time spent 20 minutes. Attestations 2 Medical Necessity Statement*: per report Coding Level of Care Code Acute Code for Chg Fwd Diagnoses ESRD on hemodialysis N18.6; Z99.2
[2023-05-17 10:57] LABS: Procalcitonin 1.38 ng/mL (0-0.5)
[2023-05-17] MEDS: oxyCODONE-APAP 5-325 mg Tablet 1 TAB PO ×2 (11:06→15:02)
[2023-05-17] MEDS: vancomycin 1,500 MG/300 ML PIGGYBACK 200 MG IV (11:14)
[2023-05-17 12:11] LABS: Add Urine Culture? No; Add Urine Microscopic? YES; Bacteria Urine 1+ /hpf; Bilirubin Urine Neg (Negative); Blood Urine 2+ (Negative); Glucose Urine UA 2+ (Normal); Ketones Urine Negative (Negative); Leukocyte Esterase Urine 2+ (Negative); Nitrate Urine Negative (Negative); Protein Urine 3+ (Negative); RBC Urine 0-4 /hpf (0-2); Specific Gravity, Urine 1.015 (1.005-1.030); Squamous Epithelial Cell Urine 0-4 /hpf (0-5); Urine Appearance Clear (CLEAR); Urine Color Yellow (Yellow); Urobilinogen Urine Norm (Negative); pH Urine 5 (5-7)
[2023-05-17] MEDS: heparin, porcine 1,000 unit/mL INJ 10 mL 10000 UNIT INTRACATH (12:30)
[2023-05-17] MEDS: piperacillin-tazobactam 3.375 GM in sodium chloride 0.9% (plus) 50 ML IV ×2 (12:38→20:27)
--- NOTE | 2023-05-17 13:01 | PC.NURSE ---
Addendum entered by Lizzie Harrison RN 05/17/23 13:04: Witnessed Fentanyl and Propofol waste by Glenn Mittal RN. Original Note: propofol and fentynol drips wasted whitnessed by Lizzie Harrison, see MAR for totals
--- NOTE | 2023-05-17 13:02 | PC.NURSE ---
Addendum entered by CHANDRIKA Gonzalez 05/17/23 13:05: Pt extubated and gastric tube removed at 1255, pt tolerated well and vitals are stable. Original Note: Pt extubated at 1255, pt tolerated well and vitals are stable.
[2023-05-17 14:07] LABS: Glucose Point of Care 167 mg/dL (70-110)
--- NOTE | 2023-05-17 14:15 | PC.SOCIAL ---
Pg 2 IMM Explained to pt's son via phone, Pg 2 IMM. No questions voiced. Provided pt a copy. Initialed, dated, & timed a copy & placed in chart.
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
[2023-05-17] MEDS: hyDRALAzine 50 mg Tablet PO (17:45)
[2023-05-17] MEDS: amiodarone 200 mg Tablet 100 MG PO (17:45)
[2023-05-17] MEDS: heparin 5,000 unit/mL INJ 1 mL 5000 UNIT SUBCUT (17:46)
[2023-05-17 20:19] LABS: Glucose Point of Care 195 mg/dL (70-110)
[2023-05-17] MEDS: ropinirole 1 mg Tablet PO (20:27)
[2023-05-17] MEDS: lisinopril 20 mg Tablet PO (20:27)
[2023-05-18] VITALS (38 sets, daily range): BP systolic 123–162; BP diastolic 61–85; PULSE 67–92; RESP 12–20; TEMP 36.7–36.9; O2SAT 94–99; BMI 33.7
[2023-05-18 01:42] LABS: Glucose Point of Care 197 mg/dL (70-110)
[2023-05-18] MEDS: insulin lispro 100 unit/1 mL SUBCUT ×5 (01:45→22:10)
[2023-05-18] MEDS: piperacillin-tazobactam 3.375 GM in sodium chloride 0.9% (plus) 50 ML IV ×3 (03:12→20:51)
[2023-05-18 03:33] LABS: Basophils % 0.1 %; Hematocrit 30.7 % (37-53); Lymphocytes # 0.6 10^3/uL (0.8-4.8); Lymphocytes % 5.2 %; Mean Corpuscular HGB Conc 30.9 g/dL (30-55); Mean Corpuscular Hemoglobin 34.2 pg (27-33); Mean Corpuscular Volume 110.4 fl (82-101); Mean Platelet Volume 9.9 fL (7.4-10.4); Monocytes # 0.4 10^3/uL (0.2-0.9); Monocytes % 3.1 %; Neutrophils # 10.39 10^3/uL (1.8-7.7); Neutrophils % 90.8 %; Nucleated Red Blood Cells # 0.1 /100WBC; Nucleated Red Blood Cells % 0.8 %; Platelet Count 184 10^3/cmm (157-399); Red Blood Count 2.78 10^6/uL (3.85-5.65); Red Cell Distribution Width 18.2 % (12.1-15.1); White Blood Count 11.43 10^3/uL (3.29-11.43)
[2023-05-18 03:55] LABS: Magnesium 2.3 mg/dL (1.7-2.3)
[2023-05-18 03:56] LABS: Alanine Aminotransferase 12 U/L (0-41); Albumin Level 3.6 g/dL (3.5-5.2); Alkaline Phosphatase 202 U/L (40-130); Blood Urea Nitrogen 32 mg/dL (8-23); Carbon Dioxide 24 mmol/L (22-29); Chloride 96 mmol/L (98-107); Creatinine Clr Calc Pharmacy 23.1833; Globulin 3.3 g/dL (1.3-4.6); Glomerular Filtration Rate 15.4 mL/min (90-130); Glucose 158 mg/dL (65-115); Osmolality Calculated 294 mOsm/kg (285-295); Sodium 137 mmol/L (136-145); Total Bilirubin 0.7 mg/dL (0.15-1.2); Total Protein 6.9 g/dL (6.6-8.7)
[2023-05-18 04:01] LABS: Anion Gap 21.7 (5-19); Aspartate Amino Transferase 35 U/L (0-40); Potassium 4.7 mmol/L (3.5-5.1)
[2023-05-18] MEDS: ipratropium-albuterol 3 mL Neb INHALATION ×5 (04:04→20:07)
[2023-05-18] MEDS: metOLazone 5 MG Tablet PO (05:20)
[2023-05-18] MEDS: heparin 5,000 unit/mL INJ 1 mL 5000 UNIT SUBCUT ×2 (05:20→17:00)
[2023-05-18] MEDS: methylPREDNISolone sod succ 40 mg/mL INJ IVP ×2 (05:21→17:00)
[2023-05-18] MEDS: escitalopram 10 mg Tablet PO (05:21)
[2023-05-18 08:20] LABS: Glucose Point of Care 201 mg/dL (70-110)
[2023-05-18] MEDS: bumetanide 1 mg Tablet 2 MG PO ×2 (08:26→17:01)
[2023-05-18] MEDS: hyDRALAzine 50 mg Tablet PO ×2 (08:26→17:01)
[2023-05-18] MEDS: metoprolol tartrate 50 mg Tablet PO ×2 (08:26→20:51)
[2023-05-18] MEDS: pantoprazole 40 mg SDV IVP (08:27)
[2023-05-18] MEDS: silver sulfadiazine cream 1% 50 gm 1 APPLIC TOPICAL ×2 (08:28→17:02)
[2023-05-18] MEDS: budesonide 0.5 mg/2 mL Neb INHALATION ×2 (08:56→20:07)
--- NOTE | 2023-05-18 10:13 | P.PN_ITS ---
Subjective 2 Subjective: extubated on 2L nc Medications: Reviewed: Yes Vitals/I&O/Wt Last Vital Signs Temp 98.4 F 05/18/23 03:30 Pulse 88 05/18/23 08:00 Resp 16 05/18/23 08:00 BP 147/78 05/18/23 08:00 Pulse Ox 97 05/18/23 08:00 O2 Del Method Nasal Cannula 05/18/23 08:00 O2 Flow Rate 2 05/18/23 08:00 FiO2 30 05/17/23 12:08 05/17/23 05/18/23 05/18/23 22:59 06:59 14:59 Intake Total 150 / 936.358 50 / 986.358 Output Total 5 / 3315 50 / 3365 Balance 145 / -2378.642 0 / -2378.642 Weight last 48 hrs Weight 103.447 kg Weight 102.6 kg Weight 103.929 kg Weight 105.6 kg Physical Exam 2 Narrative: Intubated , sedated S1S2 RRR per report Lngs clear per report No edema Urinary Catheter Management: Holly: Cath Placed During This Visit: yes Reason for Continuing Indwelling Catheter: Accurate Measurement of Urinary Output in Critically Ill Patients Urinary Catheter Date of Insertion: 05/15/23 Urinary Catheter Time of Insertion: 13:55 Data 05/18/23 03:16 05/18/23 03:16 Micro: Microbiology 05/15/23 12:10 Gram Stain - Final Sputum - Endotracheal Tube Aspirate Sputum Culture - Final 05/17/23 13:19 Blood Culture - Preliminary Blood SPECIMEN COLLECTED 05/17/23 13:15 Blood Culture - Preliminary Blood SPECIMEN COLLECTED 05/15/23 13:50 Gram Stain - Final Lung Right Middle Lobe Bronchoalveolar Lavage Culture - Final 05/17/23 10:40 Bacterial Antigens - Final Urine Kidney 05/17/23 10:40 Legionella Urinary Antigen - Final Unknown Source A&P Assessment and plan (1) ESRD on hemodialysis: Plan 1. End-stage renal disease: On Wednesday schedule as outpatient,HD yesterday and plan for HD again tomorrow . Patient not on pressors, ultrafiltration as tolerated 2. History of hypertension: Blood pressure stable 3. Acute on chronic respiratory failure, multifactorial, currently intubated 4. Anemia: [place] with HD 5. History of prior AVR Patient evaluated using audiovisual cart. Time spent 20 minutes. Attestations 2 Medical Necessity Statement*: per niall Coding Level of Care Code Acute Code for Chg Fwd Diagnoses ESRD on hemodialysis N18.6; Z99.2
[2023-05-18 11:47] LABS: Glucose Point of Care 163 mg/dL (70-110)
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
--- NOTE | 2023-05-18 15:12 | PC.NURSE ---
Called report to med surg and will take pt to room 272 when PT is finished with their treatment.
[2023-05-18 16:56] LABS: Glucose Point of Care 177 mg/dL (70-110)
[2023-05-18] MEDS: amiodarone 200 mg Tablet 100 MG PO (17:01)
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
[2023-05-18] MEDS: ropinirole 1 mg Tablet PO (20:51)
[2023-05-18] MEDS: lisinopril 20 mg Tablet PO (22:11)
[2023-05-19] VITALS (19 sets, daily range): BP systolic 133–157; BP diastolic 68–81; PULSE 66–88; RESP 16–18; TEMP 36.4–36.8; O2SAT 96–100
[2023-05-19] MEDS: ipratropium-albuterol 3 mL Neb INHALATION ×6 (00:18→20:25)
[2023-05-19 02:12] LABS: Glucose Point of Care 284 mg/dL (70-110)
[2023-05-19] MEDS: methylPREDNISolone sod succ 40 mg/mL INJ IVP ×2 (03:49→17:14)
[2023-05-19] MEDS: piperacillin-tazobactam 3.375 GM in sodium chloride 0.9% (plus) 50 ML IV ×3 (03:56→19:50)
[2023-05-19 05:46] LABS: Basophils % 0.1 %; Hematocrit 33.9 % (37-53); Lymphocytes # 0.6 10^3/uL (0.8-4.8); Lymphocytes % 6.2 %; Mean Corpuscular HGB Conc 30.1 g/dL (30-55); Mean Corpuscular Hemoglobin 33.9 pg (27-33); Mean Corpuscular Volume 112.6 fl (82-101); Mean Platelet Volume 9.7 fL (7.4-10.4); Monocytes # 0.5 10^3/uL (0.2-0.9); Monocytes % 5.3 %; Neutrophils # 7.98 10^3/uL (1.8-7.7); Neutrophils % 87.3 %; Nucleated Red Blood Cells # 0.1 /100WBC; Nucleated Red Blood Cells % 1.5 %; Platelet Count 164 10^3/cmm (157-399); Red Blood Count 3.01 10^6/uL (3.85-5.65); White Blood Count 9.14 10^3/uL (3.29-11.43)
[2023-05-19 06:14] LABS: Magnesium 2.5 mg/dL (1.7-2.3)
[2023-05-19 06:15] LABS: Alanine Aminotransferase 12 U/L (0-41); Albumin Level 3.7 g/dL (3.5-5.2); Alkaline Phosphatase 171 U/L (40-130); Aspartate Amino Transferase 23 U/L (0-40); Blood Urea Nitrogen 69 mg/dL (8-23); Calcium 8.9 mg/dL (8.5-10.5); Carbon Dioxide 22 mmol/L (22-29); Chloride 91 mmol/L (98-107); Creatinine Clr Calc Pharmacy 16.5367; Glomerular Filtration Rate 10.4 mL/min (90-130); Glucose 267 mg/dL (65-115); Osmolality Calculated 305 mOsm/kg (285-295); Sodium 133 mmol/L (136-145); Total Bilirubin 0.8 mg/dL (0.15-1.2); Total Protein 6.7 g/dL (6.6-8.7)
[2023-05-19] MEDS: metOLazone 5 MG Tablet PO (06:34)
[2023-05-19] MEDS: escitalopram 10 mg Tablet PO (06:35)
[2023-05-19] MEDS: heparin 5,000 unit/mL INJ 1 mL 5000 UNIT SUBCUT ×2 (06:52→17:48)
[2023-05-19] MEDS: budesonide 0.5 mg/2 mL Neb INHALATION ×2 (07:21→20:25)
[2023-05-19 08:46] LABS: Glucose Point of Care 271 mg/dL (70-110)
--- NOTE | 2023-05-19 09:51 | PC.SOCIAL ---
IMM Update pg 2 of IMM updated and reviewed w patient. Copy provided and copy dated, initialed and placed in chart.
[2023-05-19] MEDS: insulin lispro 100 unit/1 mL SUBCUT ×3 (10:43→21:55)
[2023-05-19] MEDS: silver sulfadiazine cream 1% 50 gm 1 APPLIC TOPICAL (10:44)
[2023-05-19 11:47] LABS: Glucose Point of Care 294 mg/dL (70-110)
--- NOTE | 2023-05-19 12:38 | PC.HD ---
Heparin 1000 units loading dose administered at 1215 via HD catheter per director of home care hospice's orders. Dressing changed.
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
[2023-05-19] MEDS: oxyCODONE-APAP 5-325 mg Tablet 1 TAB PO (16:13)
[2023-05-19] MEDS: vancomycin 1,500 MG/300 ML PIGGYBACK 200 MG IV (16:13)
[2023-05-19 16:38] LABS: Glucose Point of Care 263 mg/dL (70-110)
[2023-05-19] MEDS: bumetanide 1 mg Tablet 2 MG PO (17:48)
[2023-05-19] MEDS: hyDRALAzine 50 mg Tablet PO (18:35)
[2023-05-19] MEDS: amiodarone 200 mg Tablet 100 MG PO (18:35)
[2023-05-19 20:56] LABS: Glucose Point of Care 259 mg/dL (70-110)
[2023-05-19] MEDS: metoprolol tartrate 50 mg Tablet PO (21:51)
[2023-05-19] MEDS: ropinirole 1 mg Tablet PO (21:51)
[2023-05-19] MEDS: lisinopril 20 mg Tablet PO (21:53)
[2023-05-20] VITALS (21 sets, daily range): BP systolic 127–160; BP diastolic 64–87; PULSE 61–89; RESP 14–18; TEMP 36.6–36.8; O2SAT 94–100
[2023-05-20] MEDS: ipratropium-albuterol 3 mL Neb INHALATION ×7 (00:52→23:35)
[2023-05-20] MEDS: methylPREDNISolone sod succ 40 mg/mL INJ IVP (04:00)
[2023-05-20] MEDS: piperacillin-tazobactam 3.375 GM in sodium chloride 0.9% (plus) 50 ML IV ×2 (05:05→11:45)
[2023-05-20] MEDS: escitalopram 10 mg Tablet PO (05:08)
[2023-05-20] MEDS: metOLazone 5 MG Tablet PO (05:08)
[2023-05-20] MEDS: heparin 5,000 unit/mL INJ 1 mL 5000 UNIT SUBCUT ×2 (05:10→16:22)
[2023-05-20 05:22] LABS: Hematocrit 33.5 % (37-53); Lymphocytes # 0.5 10^3/uL (0.8-4.8); Lymphocytes % 6.8 %; Mean Corpuscular HGB Conc 30.4 g/dL (30-55); Mean Corpuscular Hemoglobin 34.1 pg (27-33); Mean Platelet Volume 9.8 fL (7.4-10.4); Monocytes # 0.4 10^3/uL (0.2-0.9); Neutrophils # 5.89 10^3/uL (1.8-7.7); Neutrophils % 85.7 %; Nucleated Red Blood Cells # 0.1 /100WBC; Nucleated Red Blood Cells % 1.5 %; Platelet Count 136 10^3/cmm (157-399); Red Blood Count 2.99 10^6/uL (3.85-5.65); Red Cell Distribution Width 19.3 % (12.1-15.1); White Blood Count 6.87 10^3/uL (3.29-11.43)
[2023-05-20 06:01] LABS: Alanine Aminotransferase 15 U/L (0-41); Albumin Level 3.7 g/dL (3.5-5.2); Alkaline Phosphatase 161 U/L (40-130); Aspartate Amino Transferase 28 U/L (0-40); Blood Urea Nitrogen 55 mg/dL (8-23); Calcium 8.6 mg/dL (8.5-10.5); Carbon Dioxide 21 mmol/L (22-29); Chloride 91 mmol/L (98-107); Creatinine Clr Calc Pharmacy 19.0046; Globulin 2.4 g/dL (1.3-4.6); Glomerular Filtration Rate 12.2 mL/min (90-130); Glucose 279 mg/dL (65-115); Osmolality Calculated 301 mOsm/kg (285-295); Sodium 133 mmol/L (136-145); Total Bilirubin 0.8 mg/dL (0.15-1.2); Total Protein 6.1 g/dL (6.6-8.7)
[2023-05-20 06:13] LABS: Magnesium 2.4 mg/dL (1.7-2.3)
[2023-05-20 06:38] LABS: Glucose Point of Care 334 mg/dL (70-110)
[2023-05-20] MEDS: insulin lispro 100 unit/1 mL SUBCUT ×4 (07:24→21:15)
[2023-05-20] MEDS: budesonide 0.5 mg/2 mL Neb INHALATION ×2 (07:25→20:17)
[2023-05-20] MEDS: isosorbide mononitrate ER 30 mg Tablet PO (08:19)
[2023-05-20] MEDS: hyDRALAzine 50 mg Tablet PO ×2 (08:19→16:56)
[2023-05-20] MEDS: metoprolol tartrate 50 mg Tablet PO ×2 (08:19→20:26)
[2023-05-20] MEDS: bumetanide 1 mg Tablet 2 MG PO ×2 (08:20→16:55)
[2023-05-20] MEDS: pantoprazole 40 mg SDV IVP (08:20)
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
[2023-05-20] MEDS: oxyCODONE-APAP 5-325 mg Tablet 1 TAB PO ×3 (09:58→21:15)
[2023-05-20] MEDS: silver sulfadiazine cream 1% 50 gm 1 APPLIC TOPICAL ×2 (09:58→16:53)
[2023-05-20 10:55] LABS: Glucose Point of Care 188 mg/dL (70-110)
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
[2023-05-20 16:36] LABS: Glucose Point of Care 263 mg/dL (70-110)
--- NOTE | 2023-05-20 16:46 | P.PN_ITS ---
Subjective 2 Subjective: DOING WELL Medications: Reviewed: Yes Vitals/I&O/Wt Last Vital Signs Temp 98.0 F 05/20/23 15:32 Pulse 61 05/20/23 15:44 Resp 18 05/20/23 15:44 BP 127/64 05/20/23 15:32 Pulse Ox 98 05/20/23 15:44 O2 Del Method Nasal Cannula 05/20/23 15:44 O2 Flow Rate 2 05/20/23 15:44 FiO2 30 05/17/23 12:08 05/20/23 05/20/23 05/20/23 06:59 14:59 22:59 Intake Total 50 / 1085.625 530 / 530 47.083 / 577.083 Output Total 75 / 3675 100 / 100 Balance -25 / -2589.375 430 / 430 47.083 / 477.083 Weight last 48 hrs Weight 103.476 kg Weight 102.2 kg Weight 102.313 kg Physical Exam 2 Narrative: AWAKE , ALERT S1S2 RRR per report Lngs clear per report No edema Urinary Catheter Management: Holly: Cath Placed During This Visit: yes, but has since been removed by the nurse Reason for Continuing Indwelling Catheter: Decision to DC Catheter Urinary Catheter Date of Insertion: 05/15/23 Urinary Catheter Time of Insertion: 13:55 Date Urinary Catheter Removed: 05/20/23 Time Urinary Catheter Discontinued: 11:20 Data 05/20/23 05:08 05/20/23 05:08 A&P Assessment and plan (1) ESRD on hemodialysis: Plan 1. End-stage renal disease: On Wednesday schedule as outpatient, Next HD tomorrow . ultrafiltration as tolerated 2. History of hypertension: Blood pressure stable 3. Acute on chronic respiratory failure, multifactorial, currently intubated 4. Anemia: SAL[place] with HD 5. History of prior AVR Patient evaluated using audiovisual cart. Time spent 20 minutes. Attestations 2 Medical Necessity Statement*: per niall Coding Level of Care Code Acute Code for Chg Fwd Diagnoses ESRD on hemodialysis N18.6; Z99.2
[2023-05-20] MEDS: amiodarone 200 mg Tablet 100 MG PO (16:55)
[2023-05-20] MEDS: ropinirole 1 mg Tablet PO (20:26)
[2023-05-20 20:58] LABS: Glucose Point of Care 218 mg/dL (70-110)
[2023-05-20] MEDS: lisinopril 20 mg Tablet PO (21:15)
[2023-05-21] VITALS (10 sets, daily range): BP systolic 140–156; BP diastolic 66–74; PULSE 66–79; RESP 16–18; TEMP 36.4–36.7; O2SAT 95–99
[2023-05-21] MEDS: ipratropium-albuterol 3 mL Neb INHALATION ×2 (03:33→08:37)
[2023-05-21] MEDS: heparin 5,000 unit/mL INJ 1 mL 5000 UNIT SUBCUT (05:19)
[2023-05-21] MEDS: metOLazone 5 MG Tablet PO (05:19)
[2023-05-21] MEDS: escitalopram 10 mg Tablet PO (05:19)
[2023-05-21 06:18] LABS: Alanine Aminotransferase 17 U/L (0-41); Albumin Level 3.4 g/dL (3.5-5.2); Alkaline Phosphatase 152 U/L (40-130); Anion Gap 24.8 (5-19); Aspartate Amino Transferase 25 U/L (0-40); Blood Urea Nitrogen 77 mg/dL (8-23); Carbon Dioxide 21 mmol/L (22-29); Chloride 93 mmol/L (98-107); Creatinine Clr Calc Pharmacy 13.8224; Globulin 2.4 g/dL (1.3-4.6); Glomerular Filtration Rate 8.3 mL/min (90-130); Glucose 271 mg/dL (65-115); Osmolality Calculated 311 mOsm/kg (285-295); Potassium 4.8 mmol/L (3.5-5.1); Sodium 134 mmol/L (136-145); Total Bilirubin 0.7 mg/dL (0.15-1.2); Total Protein 5.8 g/dL (6.6-8.7)
[2023-05-21 06:40] LABS: Glucose Point of Care 276 mg/dL (70-110)
[2023-05-21] MEDS: insulin lispro 100 unit/1 mL SUBCUT ×2 (07:52→13:10)
[2023-05-21] MEDS: oxyCODONE-APAP 5-325 mg Tablet 1 TAB PO (07:52)
[2023-05-21] MEDS: pantoprazole 40 mg SDV IVP (08:00)
[2023-05-21] MEDS: isosorbide mononitrate ER 30 mg Tablet PO (08:01)
[2023-05-21] MEDS: metoprolol tartrate 50 mg Tablet PO (08:01)
[2023-05-21] MEDS: hyDRALAzine 50 mg Tablet PO (08:01)
[2023-05-21] MEDS: bumetanide 1 mg Tablet 2 MG PO (08:01)
[2023-05-21] MEDS: methylPREDNISolone sod succ 40 mg/mL INJ IVP (08:01)
--- NOTE | 2023-05-21 08:29 | PM.PN ---
Subjective Subjective: doing well Medications: Reviewed: Yes Vitals/I&O/Wt Last Vital Signs Temp 97.7 F 05/21/23 07:31 Pulse 66 05/21/23 07:31 Resp 17 05/21/23 07:52 BP 147/74 05/21/23 07:31 Pulse Ox 98 05/21/23 07:31 O2 Del Method Nasal Cannula 05/21/23 07:31 O2 Flow Rate 2 05/21/23 03:33 FiO2 30 05/17/23 12:08 05/20/23 05/21/23 05/21/23 22:59 06:59 14:59 Intake Total 287.083 / 817.083 Balance 287.083 / 717.083 Weight last 48 hrs Weight 105.432 kg Weight 103.476 kg Weight 102.2 kg Physical Exam Narrative: AWAKE , ALERT S1S2 RRR per report Lngs clear per report No edema Urinary Catheter Management: Holly: Cath Placed During This Visit: yes, but has since been removed by the nurse Reason for Continuing Indwelling Catheter: Decision to DC Catheter Urinary Catheter Date of Insertion: 05/15/23 Urinary Catheter Time of Insertion: 13:55 Date Urinary Catheter Removed: 05/20/23 Time Urinary Catheter Discontinued: 11:20 Data 05/20/23 05:08 05/21/23 05:52 A&P Assessment and plan (1) ESRD on hemodialysis: Plan 1. End-stage renal disease: On Wednesday schedule as outpatient, Next HD today . ultrafiltration as tolerated 2. History of hypertension: Blood pressure stable 3. Acute on chronic respiratory failure, multifactorial, currently intubated 4. Anemia: SALENA with HD 5. History of prior AVR Patient evaluated using audiovisual cart. Time spent 20 minutes. Attestations Medical Necessity Statement*: per [facility] Coding Level of Care Code Acute Code for Chg Fwd Diagnoses ESRD on hemodialysis N18.6; Z99.2
[2023-05-21] MEDS: budesonide 0.5 mg/2 mL Neb INHALATION (08:37)
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
[2023-05-21] MEDS: epoetin alfa 1000 Unit/0.05 mL (ESRD) 20000 UNIT IVP (10:10)
[2023-05-21 10:34] LABS: SARS Covid-2 Antigen negative (Negative)
[2023-05-21 11:01] LABS: Glucose Point of Care 187 mg/dL (70-110)
[2023-05-21] MEDS: heparin, porcine 1,000 unit/mL INJ 10 mL 10000 UNIT INTRACATH (11:29)
[2023-05-21] MEDS: heparin, porcine 1,000 unit/mL INJ 10 mL 1000 UNIT IV (11:30)
--- NOTE | 2023-05-21 11:43 | PC.SOCIAL ---
IMM Updated Updated pt on IMM. No questions voiced. Provided pt a copy. Initialed, dated, & timed copy in chart.
== END 2023-05-21 15:03 | disposition skilled nursing facility (03) | DRG 907 ==
LOC: ER 10:52 → ICU 11:25 → MEDSURG 05-18 15:23
PROVIDERS: Hospitalist; Internal Medicine Pulmonary Disease; Admitting Provider Internal Medicine; Emergency Provider Family Medicine; PCP Family Medicine; Visit Provider Student in an Organized Health Care Education/Training Program
DX: T59.811A Toxic effect of smoke, accidental (unintentional), initial encounter (principal); J96.01 Acute respiratory failure with hypoxia; N18.6 End stage renal disease; J44.1 Chronic obstructive pulmonary disease with (acute) exacerbation; I12.0 Hypertensive chronic kidney disease with stage 5 chronic kidney disease or end stage renal disease; I48.92 Unspecified atrial flutter; Y92.009 Unspecified place in unspecified non-institutional (private) residence as the place of occurrence of the external cause; D63.1 Anemia in chronic kidney disease; J43.2 Centrilobular emphysema; F17.210 Nicotine dependence, cigarettes, uncomplicated; E11.22 Type 2 diabetes mellitus with diabetic chronic kidney disease; E11.51 Type 2 diabetes mellitus with diabetic peripheral angiopathy without gangrene; E11.621 Type 2 diabetes mellitus with foot ulcer; L97.512 Non-pressure chronic ulcer of other part of right foot with fat layer exposed; E78.5 Hyperlipidemia, unspecified; G47.33 Obstructive sleep apnea (adult) (pediatric); K44.9 Diaphragmatic hernia without obstruction or gangrene; K57.90 Diverticulosis of intestine, part unspecified, without perforation or abscess without bleeding; R00.0 Tachycardia, unspecified; T22.20XA Burn of second degree of shoulder and upper limb, except wrist and hand, unspecified site, initial encounter; T31.0 Burns involving less than 10% of body surface; K42.9 Umbilical hernia without obstruction or gangrene; I34.0 Nonrheumatic mitral (valve) insufficiency; Z11.52 Encounter for screening for COVID-19; Z99.81 Dependence on supplemental oxygen; Z99.2 Dependence on renal dialysis; Z95.2 Presence of prosthetic heart valve; Z89.421 Acquired absence of other right toe(s)
CPT/HCPCS: 29445; 31500; 31622; 36415; 36416; 36600; 51702; 71045; 80051; 80053; 80503; 81001; 82330; 82600; 82805; 82962; 83735; 84100; 84145; 84484; 85025; 85610; 86403; 86706; 87040; 87070; 87205; 87340; 87426; 87449; 89050; 90935; 92610; 93005; 94002; 94003; 94640; 94799; 96365; 96366; 96367; 96372; 96375; 96376; 97110; 97116; 97162; 97165; 97530; 97535; 99291; C9113; J0330; J1100; J1644; J1815; J2250; J2543; J2704; J2920; J3010; J3370; J3490; J7030; J7626; P9047; Q3014; Q4081

== ENCOUNTER → 2023-05-27 08:22 | Outpatient (BNVA) | payer MEDICARE, SELFPAY | PROVIDERS: PCP Family Medicine; Visit Provider Podiatrist Foot & Ankle Surgery | DX: Z98.890 Other specified postprocedural states (principal); M21.41 Flat foot [pes planus] (acquired), right foot; M21.42 Flat foot [pes planus] (acquired), left foot; M20.41 Other hammer toe(s) (acquired), right foot; M20.42 Other hammer toe(s) (acquired), left foot; I73.9 Peripheral vascular disease, unspecified; E11.42 Type 2 diabetes mellitus with diabetic polyneuropathy; Z79.4 Long term (current) use of insulin | CPT/HCPCS: 29445 ==

== ENCOUNTER → 2023-06-03 15:22 | Outpatient (BNVA) | payer MEDICARE, SELFPAY | PROVIDERS: PCP Family Medicine; Visit Provider Podiatrist Foot & Ankle Surgery | DX: Z98.890 Other specified postprocedural states (principal); M21.41 Flat foot [pes planus] (acquired), right foot; M21.42 Flat foot [pes planus] (acquired), left foot; M20.41 Other hammer toe(s) (acquired), right foot; M20.42 Other hammer toe(s) (acquired), left foot; I73.9 Peripheral vascular disease, unspecified; E11.42 Type 2 diabetes mellitus with diabetic polyneuropathy; Z79.4 Long term (current) use of insulin | CPT/HCPCS: 29445 ==

== ENCOUNTER → 2023-06-10 10:52 | Outpatient (BNVA) | payer MEDICARE, SELFPAY | PROVIDERS: PCP Family Medicine; Visit Provider Podiatrist Foot & Ankle Surgery | DX: Z98.890 Other specified postprocedural states (principal); M21.41 Flat foot [pes planus] (acquired), right foot; M21.42 Flat foot [pes planus] (acquired), left foot; M20.41 Other hammer toe(s) (acquired), right foot; M20.42 Other hammer toe(s) (acquired), left foot; I73.9 Peripheral vascular disease, unspecified; E11.42 Type 2 diabetes mellitus with diabetic polyneuropathy; Z79.4 Long term (current) use of insulin | CPT/HCPCS: 29445 ==

== ENCOUNTER → 2023-06-15 10:18 | Outpatient (BNVA) | payer MEDICARE, SELFPAY | PROVIDERS: PCP Family Medicine; Visit Provider Internal Medicine Cardiovascular Disease | DX: I12.0 Hypertensive chronic kidney disease with stage 5 chronic kidney disease or end stage renal disease (principal); N18.6 End stage renal disease; Z99.2 Dependence on renal dialysis; E78.2 Mixed hyperlipidemia; Z95.2 Presence of prosthetic heart valve; I48.91 Unspecified atrial fibrillation; I34.0 Nonrheumatic mitral (valve) insufficiency; Z87.891 Personal history of nicotine dependence | CPT/HCPCS: 99214 ==

== ENCOUNTER → 2023-06-17 12:50 | Outpatient (BNVA) | payer MEDICARE, SELFPAY | PROVIDERS: PCP Family Medicine; Visit Provider Podiatrist Foot & Ankle Surgery | DX: M21.41 Flat foot [pes planus] (acquired), right foot (principal); M21.42 Flat foot [pes planus] (acquired), left foot; M20.41 Other hammer toe(s) (acquired), right foot; M20.42 Other hammer toe(s) (acquired), left foot; I73.9 Peripheral vascular disease, unspecified; E11.42 Type 2 diabetes mellitus with diabetic polyneuropathy; Z79.4 Long term (current) use of insulin; Z46.89 Encounter for fitting and adjustment of other specified devices; L97.512 Non-pressure chronic ulcer of other part of right foot with fat layer exposed | CPT/HCPCS: 97760; 99213; L4361 ==

== ENCOUNTER 2023-06-17 14:51 | Outpatient (CLI) | payer MEDICARE, SELFPAY | END 2023-06-17 14:52 | disposition home or self-care (01) | LOC: SPT 14:51 | PROVIDERS: PCP Family Medicine; Visit Provider Podiatrist Foot & Ankle Surgery | DX: Z46.89 Encounter for fitting and adjustment of other specified devices (principal); L97.512 Non-pressure chronic ulcer of other part of right foot with fat layer exposed | CPT/HCPCS: 97760; L4361 ==

== ENCOUNTER → 2023-07-01 13:58 | Outpatient (BNVA) | payer MEDICARE, SELFPAY | PROVIDERS: PCP Family Medicine; Visit Provider Podiatrist Foot & Ankle Surgery | DX: M21.41 Flat foot [pes planus] (acquired), right foot (principal); M21.42 Flat foot [pes planus] (acquired), left foot; M20.41 Other hammer toe(s) (acquired), right foot; M20.42 Other hammer toe(s) (acquired), left foot; I73.9 Peripheral vascular disease, unspecified; E13.42 Other specified diabetes mellitus with diabetic polyneuropathy; Z79.4 Long term (current) use of insulin | CPT/HCPCS: 99213 ==

== ENCOUNTER 2023-07-15 10:37 | Outpatient (CLI) | payer MEDICARE, SELFPAY ==
--- NOTE | 2023-07-15 11:00 | USCV_ITS ---
Richard Huffman Age: 62 Gender: M : 1960 Exam Date: 07/15/2023 10:53 Ordering Phys: Bertin Tierney MD ([email or web address]) Technologist: Ex[place] [facility] [place]: av pros BP: 100 / 60 HR: 78 Rhythm: Sinus Technical Quality: Adequate MEASUREMENTS (Male / Female) Normal Values 2D ECHO LV Diastolic Diameter PLAX 4.4 cm 4.2 - 5.9 / 3.9 - 5.3 cm IVS Diastolic Thickness 1.3 cm 0.6 - 1.0 / 0.6 - 0.9 cm IVS Systolic Thickness 1.8 cm LVPW Diastolic Thickness 1.2 cm 0.6 - 1.0 / 0.6 - 0.9 cm LVPW Systolic Thickness 1.2 cm LVOT Diameter 2.0 cm LV Ejection Fraction 2D Teich 47.3 % LV Ejection Fraction MOD 2C 56.7 % LV Ejection Fraction 2C AL 58.0 % LA Diameter 4.3 cm RA Systolic Volume 4C AL 81.5 ml RA Systolic Volume 4C MOD 76.8 ml LA Sys Volume AL 105.9 cm cubed LA Sys Volume Index AL 43.7 cm cubed/m squared Aorta at Sinotubular Diameter 3.0 cm M-MODE LA Ao Ratio MM 1.6 AV Cusp Separation MM 2.2 cm DOPPLER AV Peak Velocity 257.8 cm/s LVOT Peak Velocity 96.0 cm/s AV Area Cont Eq vti 1.3 cm squared AV Area Cont Eq pk 1.2 cm squared MV Peak Velocity 373.0 cm/s TR Peak Velocity 245.0 cm/s TR Peak Gradient 24.0 mmHg TV Peak E Velocity 206.0 cm/s Right Atrial Pressure 3.0 mmHg Pulmonary Artery Systolic Pressu 27.0 mmHg PV Peak Velocity 85.0 cm/s FINDINGS Left Ventricle Normal left ventricular size and systolic function, EF 57%. Mild left ventricular hypertrophy. Segmental wall motion analysis difficult because of poor ultrasonic window. Right Ventricle The right ventricle is normal in size and function. Right Atrium The right atrium is normal in size. Left Atrium Mildly increased left atrial size. Mitral Valve Moderate mitral annular calcification. Thickened mitral valve. Aortic Valve The bioprosthetic valve the aortic position appears to be well- seated. The leaflets could not be visualized. Peak velocity across the valve is 2.58 M/s. The valve area was calculated to be 1.3 cm squared Tricuspid Valve No gross abnormalities noted Pulmonic Valve Pulmonic valve not well visualized. Pericardium Normal pericardium without effusion. Aorta Normal ascending aorta dimension. IVC Inferior vena cava not visualized. CONCLUSIONS Normal left ventricular size and systolic function, EF 57%. Mild left ventricular hypertrophy. Segmental wall motion analysis difficult because of poor ultrasonic window. The bioprosthetic valve the aortic position appears to be well- seated. The leaflets could not be visualized. The valve area is calculated to be 1.3 cm squared. Moderate mitral annular calcification. Thickened mitral valve. There is no pericardial effusion. There are no intracardiac masses. Compared to the study from 2022, there is some worsening of the stenosis in the aortic valve Dr Bertin Tierney MD [facility] (Electronically Signed) Final Date: 15 Jul 2023 22:53 S
== END 2023-07-15 10:38 | disposition home or self-care (01) ==
LOC: RAD 10:37
PROVIDERS: PCP Family Medicine; Visit Provider Internal Medicine Cardiovascular Disease
DX: R06.09 Other forms of dyspnea (principal); I35.0 Nonrheumatic aortic (valve) stenosis; I34.81 Nonrheumatic mitral (valve) annulus calcification
CPT/HCPCS: 93306

== ENCOUNTER 2023-08-16 12:34 | Inpatient (IN) | payer MEDICARE, SELFPAY ==
[2023-08-16] VITALS (13 sets, daily range): BP systolic 120–142; BP diastolic 54–72; PULSE 50–87; RESP 17–28; TEMP 36.8–37; O2SAT 84–100; BMI 36.1
--- NOTE | 2023-08-16 12:40 | XRR_ITS ---
PROCEDURE INFORMATION: Exam: XR Chest Exam date and time: 08/16/2023 12:42 PM Age: 63 years old Clinical indication: Pain; Angina pectoris; Additional info: Cp TECHNIQUE: Imaging protocol: Radiologic exam of the chest. Views: 1 view. COMPARISON: CR XR chest 1V portable [id number] 05/17/2023 9:32 AM FINDINGS: Tubes, catheters and devices: Right IJ central venous catheter terminates in the right atrium. Lungs: Pulmonary hypoinflation with associated bronchovascular crowding. Linear atelectasis versus scarring at the right mid lung zone. No consolidation. Pleural spaces: Small right pleural effusion. No pneumothorax. Heart/Mediastinum: Cardiomegaly. Prosthetic aortic valve. Vasculature: Aortic atherosclerotic calcification. Bones/joints: Prior median sternotomy. XR/XR chest 1V portable [id number] IMPRESSION: 1. Small right pleural effusion. 2. Cardiomegaly.
--- NOTE | 2023-08-16 12:40 | ECG_ITS ---
[facility] Test Date: 2023-08-16 Pat Name: Richard Huffman Department: Room: Gender: Male Donkey Doctor: : 1960 Requested By: Alvino Bernabe Order Number: [id number] Kisha MD: Adria Tian M.D. Measurements Intervals [place] Rate: 53 P: 180 MN: 194 QRS: -56 QRSD: 158 T: 37 QT: 517 QTc: 490 Interpretive Statements SINUS BRADYCARDIA WITH SINUS ARRHYTHMIA LEFT AXIS DEVIATION [QRS AXIS < -30] RIGHT BUNDLE BRANCH BLOCK [120+ ms QRS DURATION, UPRIGHT V1, 40+ ms S IN I/aVL/V4/V5/V6] POSSIBLE LEFT VENTRICULAR HYPERTROPHY [VOLTAGE CRITERIA PLUS LAE OR QRS WIDENING] Compared to ECG 05/15/2023 17:39:55 Left-axis deviation now present Sinus rhythm no longer present Left anterior fascicular block no longer present Electronically Signed On 08-16-2023 14:31:13 CDT by Adria Tian M.D. [id number]
[2023-08-16 12:49] LABS: Basophils # 0.1 10^3/uL (0.0-0.1); Basophils % 0.6 %; Eosinophils % 0.4 %; Hematocrit 28.8 % (37-53); Lymphocytes # 0.9 10^3/uL (0.8-4.8); Lymphocytes % 11.7 %; Mean Corpuscular HGB Conc 29.9 g/dL (30-55); Mean Corpuscular Hemoglobin 31.6 pg (27-33); Mean Corpuscular Volume 105.9 fl (82-101); Mean Platelet Volume 10.4 fL (7.4-10.4); Monocytes # 0.7 10^3/uL (0.2-0.9); Monocytes % 8.8 %; Neutrophils # 6.19 10^3/uL (1.8-7.7); Neutrophils % 78.2 %; Nucleated Red Blood Cells % 0 %; Platelet Count 127 10^3/cmm (157-399); Red Blood Count 2.72 10^6/uL (3.85-5.65); Red Cell Distribution Width 18.3 % (12.1-15.1); White Blood Count 7.92 10^3/uL (3.29-11.43)
--- NOTE | 2023-08-16 12:50 | ED_ITS ---
HPI - General Adult 2 General: Chief complaint: General Medical Stated complaint: palpitations Time Seen by Provider: 08/16/23 12:35 Source: patient Mode of arrival: ambulatory Limitations: no limitations History of Present Illness: 63-year-old male has history of multiple medical issues he is on dialysis goes Wednesday states he been having what he feels like is his heart beating hard since 430 this morning. He states that he felt like his heart was racing at times as well and having some chest discomfort in his chest. He denies any actual pain just states that it felt strange. Denies any pain currently has no vomiting or diarrhea. Associated symptoms: Reports chest pain and dyspnea; Deny headache(s), nausea, rash or vomiting Review of Systems 2 Const: Denies: fever(s), chills, body aches or change in appetite ENMT: Denies: throat pain or dental pain Card: Reports: chest pain Resp: Reports: dyspnea GI: Denies: abdominal pain, nausea, vomiting or diarrhea : Denies: dysuria Musc: Denies: neck pain or back pain Skin/Breast: Denies: rash Neuro: Denies: headache(s) Psych: Denies: depression PFSH ED 2 PFSH: Medical History Chronic pain Chronic GI bleeding Hiatal hernia High risk medication use Chronic anemia COPD (chronic obstructive pulmonary disease) Severe tobacco use disorder ESRD on hemodialysis History of renal dialysis Chronic kidney disease 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 Intermittent palpitations Hyperlipidemia Hypertension XI (obstructive sleep apnea) DJD (degenerative joint disease) Atrial flutter PVD (peripheral vascular disease) Diabetes Surgical History 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 H/O aortic valve replacement with tissue graft H/O aortic valve replacement H/O foot surgery Family History Grandmother Diabetes Grandfather Diabetes Denies family history of CAD (coronary artery disease) Clotting disorder Dementia Chronic kidney disease (CKD) Suicide Anesthesia complication Bleeding disorder Lung disease Cancer Stroke Social History Smoking and tobacco/nicotine status: former use of tobacco/nicotine Alcohol intake: never Substance/Drug Use: never Lives independently: Yes (with girlfriend) Household members: significant other Marital status: Single service: No 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al status: disabled 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 Pets and animals: Yes Special araceli needs: No Agree to transfusion: Yes Physical Exam 2 Const: COMMON NORMALS: no acute distress, patient oriented x3 and healthy appearing HENMT: COMMON NORMALS: normocephalic and atraumatic HEAD & SCALP: n ormocephalic and atraumatic Eye: COMMON NORMALS: Equal, round and reactive pupils present and EOMs intact bilaterally PUPIL: Yes Equal, round and reactive pupils present Neck/C-Spine: COMMON NORMALS: full ROM and supple Chest: COMMONS NORMALS: normal inspection of the chest Resp: COMMON NORMALS: normal respiratory effort, No retractions, No use of accessory muscles and clear to auscultation bilaterally AUSCULTATION: clear to auscultation bilaterally Cardio: COMMON NORMALS: regular rate, regular rhythm and No murmurs present (Cardio) RATE: regular rate RHYTHM: regular rhythm GI: COMMON NORMALS: Normal to inspection, nondistended, normoactive bowel sounds present, Soft to palpation, non-tender and no masses PALPATION: Yes Soft to palpation Extremity: COMMON NORMALS: normal to inspection and full ROM Neuro: COMMON NORMALS: patient oriented x3, moves all extremities and no focal motor deficits Psych: COMMON NORMALS: mental status grossly normal, Normal thought process present and cooperative THOUGHT PROCESS: Normal thought process present Skin: COMMON NORMALS: no rashes or lesions noted and no wounds GENERAL SKIN EXAM: no rashes or lesions noted Course 2 Vital Signs: Vital signs: Vital Signs Temperature 98.2 F 08/16/23 12:45 Pulse Rate 50 L 08/16/23 13:30 Respiratory Rate 17 08/16/23 13:30 Blood Pressure 125/63 08/16/23 13:30 Pulse Oximetry 100 08/16/23 13:30 Oxygen Delivery Me thod Room Air 08/16/23 13:30 Oxygen Flow Rate 3 08/16/23 13:18 MDM - General Adult Medical Decision Making Patient presents for some chest pain earlier today he is currently chest pain- free his initial troponin here is at his baseline he is hypokalemic did give him insulin all calcium spoke to the hospitalist will admit at this time Medical Records I reviewed the patient's medical records. Lab Data I reviewed the patient's lab results. 08/16/23 12:41 08/16/23 12:41 Radiology Impressions Chest X-Ray 08/16/23 12:40 IMPRESSION: 1. Small right pleural effusion. 2. Cardiomegaly. Laboratory Results WBC 7.92 10^3/uL (3.29-11.43) 08/16/23 12:41 RBC 2.72 10^6/uL (3.85-5.65) L 08/16/23 12:41 Hgb 8.60 g/dL (11.27-16.99) L 08/16/23 12:41 Hct 28.8 % (37-53) L 08/16/23 12:41 MCV 105.9 fl (82-101) H 08/16/23 12:41 MCH 31.6 pg (27-33) 08/16/23 12:41 MCHC 29.9 g/dL (30-55) L 08/16/23 12:41 RDW 18.3 % (12.1-15.1) H 08/16/23 12:41 Plt Count 127 10^3/cmm (157-399) L 08/16/23 12:41 MPV 10.4 fL (7.4-10.4) 08/16/23 12:41 Neut % (Auto) 78.2 % 08/16/23 12:41 Lymph % (Auto) 11.7 % 08/16/23 12:41 Evans % (Auto) 8.8 % 08/16/23 12:41 Eos % (Auto) 0.4 % 08/16/23 12:41 Baso % (Auto) 0.6 % 08/16/23 12:41 Neut # (Auto) 6.19 10^3/uL (1.8-7.7) 08/16/23 12:41 Lymph # (Auto) 0.9 10^3/uL (0.8-4.8) 08/16/23 12:41 Evans # (Auto) 0.7 10^3/uL (0.2-0.9) 08/16/23 12:41 Eos # (Auto) 0.0 10^3/uL (0.0-0.8) 08/16/23 12:41 Baso # (Auto) 0.1 10^3/uL (0.0-0.1) 08/16/23 12:41 Nucleated RBC % (auto) 0 % 08/16/23 12:41 Nucleated RBCs # 0.0 /100WBC 08/16/23 12:41 Sodium 131 mmol/L (136-145) L 08/16/23 12:41 Potassium 6.9 mmol/L (3.5-5.1) H* 08/16/23 12:41 Chloride 89 mmol/L (98-107) L 08/16/23 12:41 Carbon Dioxide 23 mmol/L (22-29) 08/16/23 12:41 Anion Gap 25.9 (5-19) H 08/16/23 12:41 BUN 64 mg/dL (8-23) H 08/16/23 12:41 Creatinine 6.2 mg/dL (0.7-1.2) H* 08/16/23 12:41 GFR Calculation 9.3 mL/min (90-130) L 08/16/23 12:41 Glucose 160 mg/dL (65-115) H 08/16/23 12:41 Calculated Osmolality 294 mOsm/kg (285-295) 08/16/23 12:41 Calcium 9.5 mg/dL (8.5-10.5) 08/16/23 12:41 Total Bilirubin 1.6 mg/dL (0.15-1.2) H 08/16/23 12:41 AST 24 U/L (0-40) 08/16/23 12:41 ALT 18 U/L (0-41) 08/16/23 12:41 Alkaline Phosphatase 344 U/L (40-130) H 08/16/23 12:41 Troponin T Baseline 335 ng/L (0-15) H* 08/16/23 12:41 NT-Pro-B Natriuret Pep 36283 pg/mL (0-125) H 08/16/23 12:41 Total Protein 7.1 g/dL (6.6-8.7) 08/16/23 12:41 Albumin 3.8 g/dL (3.5-5.2) 08/16/23 12:41 Globulin 3.3 g/dL (1.3-4.6) 08/16/23 12:41 All radiology interpretation(s) finalized by discharge EKG Data EKG 1: I personally reviewed and interpreted this EKG as follows: EKG interpretation date: 08/16/23 EKG interpretation time: 12:48 Interpretation: sinus marip[place] hr [address] or t wave abnormalities qrs 158 qtc 501 Computer generated interpretation: Chest X-Ray 08/16/23 12:40 IMPRESSION: 1. Small right pleural effusion. 2. Cardiomegaly. Discharge Plan Discharge Admit Provider: Heidy Ramos Clinical Impression: ESRD on hemodialysis, Chest pain, Hyperkalemia Condition: Stable Coding Level of Care Code ED Doctor Of Naprapathy for Lillian Anne
[2023-08-16 13:21] LABS: Troponin(5th) Baseline 335 ng/L (0-15)
[2023-08-16 13:22] LABS: Alanine Aminotransferase 18 U/L (0-41); Albumin Level 3.8 g/dL (3.5-5.2); Alkaline Phosphatase 344 U/L (40-130); Anion Gap 25.9 (5-19); Aspartate Amino Transferase 24 U/L (0-40); Blood Urea Nitrogen 64 mg/dL (8-23); Calcium 9.5 mg/dL (8.5-10.5); Carbon Dioxide 23 mmol/L (22-29); Chloride 89 mmol/L (98-107); Globulin 3.3 g/dL (1.3-4.6); Glomerular Filtration Rate 9.3 mL/min (90-130); Glucose 160 mg/dL (65-115); Osmolality Calculated 294 mOsm/kg (285-295); Sodium 131 mmol/L (136-145); Total Bilirubin 1.6 mg/dL (0.15-1.2); Total Protein 7.1 g/dL (6.6-8.7)
[2023-08-16 13:24] LABS: Potassium 6.9 mmol/L (3.5-5.1)
[2023-08-16 13:45] LABS: NT Pro B Type Natriuretic Pept 44548 pg/mL (0-125)
--- NOTE | 2023-08-16 13:50 | PM.HP ---
Providers/Chief Complaint Primary Care Provider: Christofer Varghese MD Chief Complaint: palpitations History of Present Illness Richard Huffman is a 63 year old male with history of end-stage renal disease Wednesday history of aortic valve replacement with bovine valve, follows up with Dr. Tierney, presented for not feeling well today. Patient has missed his dialysis session today because he is essentially generalized malaise fatigue restless legs and back pain. He also noticed chest discomfort which she is describing as chest tightness, nonradiating, no nausea or vomiting. Patient is stating that sometimes his heart rate runs low but he never had any issues with it. . Patient has been experiencing dry cough and diarrhea for last 3 to 4 days. No one else is sick [facility] been diagnosed with hyperkalemia, nephro consulted for dialysis, no active chest pain at the time of evaluation however troponins are above 300 started on heparin drip requested echo EKG showing A-fib with slow ventricular response, Review of Systems Const: Reports: chills, fatigue and malaise; Denies: fever(s) Eyes: Denies: change in vision ENMT: Denies: throat pain Card: Reports: chest pain Resp: Denies: dyspnea GI: Reports: diarrhea : Denies: flank pain Medications/Allergies Home Medications Medication Instructions Recorded Confirmed Last Taken Type hydralazine 50 mg tablet 50 mg PO BID 05/28/22 08/16/23 08/16/23 History oxycodone-acetaminophen 5 mg-325 0.5 - 1 tab PO Q4H PRN Pain 07/15/22 08/16/23 05/06/23 History mg tablet cyanocobalamin (vitamin B-12) 1,000 mcg PO DAILY 08/25/22 08/16/23 08/16/23 History 1,000 mcg tablet (Vitamin B-12) tramadol 50 mg tablet 50 mg PO Q6H PRN Pain, Mild 12/29/22 08/16/23 05/02/23 History Jaky #1 ea 05/11/23 08/16/23 Unknown Rx vit B,C-folic ac 800 mcg-zinc 12.5 1 tab PO BEDTIME 05/15/23 08/16/23 08/15/23 History mg-selen-D3 2,000 unit-vit E tablet (RenaPlex-D) albuterol sulfate 90 mcg/actuation 1 inh inhalation QID PRN shortness 06/01/23 08/16/23 Unknown Rx aerosol inhaler (Ventolin HFA) of breath or wheezing #8.5 grams budesonide 0.5 mg/2 mL suspension 0.5 mg (2 mL) inhalation BID #60 mL 06/01/23 08/16/23 08/16/23 Rx for nebulization budesonide-formoterol HFA 80 2 puff inhalation BID PRN unknown 06/01/23 08/16/23 Unknown Rx mcg-4.5 mcg/actuation aerosol #10.2 grams inhaler (Symbicort) bumetanide 2 mg tablet 2 mg PO BID #180 tabs 06/01/23 08/16/23 08/16/23 Rx escitalopram oxalate 10 mg tablet 10 mg PO QAM #90 tabs 06/01/23 08/16/23 08/16/23 Rx (Lexapro) fluticasone propionate 50 2 spray intranasal DAILY PRN 06/01/23 08/16/23 Unknown Rx mcg/actuation nasal Allergy Symptoms #16 grams spray,suspension ipratropium 0.5 mg-albuterol 3 mg 3 ml inhalation Q6H Shortness Of 06/01/23 08/16/23 08/16/23 Rx (2.5 mg base)/3 mL nebulization Breath #180 mL soln isosorbide mononitrate 30 mg 30 mg PO DAILY #90 tabs 06/01/23 08/16/23 08/16/23 Rx tablet,extended release 24 hr lisinopril 20 mg tablet 20 mg PO BEDTIME #90 tabs 06/01/23 08/16/23 08/15/23 Rx metolazone 5 mg tablet 5 mg PO QAM #90 tabs 06/01/23 08/16/23 08/16/23 Rx metoprolol succinate 50 mg 50 mg PO BID #180 tabs 06/01/23 08/16/23 08/16/23 Rx tablet,extended release 24 hr nitroglycerin 2.5 mg 2.5 mg PO DAILY PRN chest 06/01/23 08/16/23 08/16/23 Rx capsule,extended release tightness #30 caps ropinirole 2 mg tablet 2 mg PO BEDTIME #90 tabs 06/01/23 08/16/23 08/15/23 Rx Diabetic shoes #1 ea 06/04/23 08/16/23 Unknown Rx four point rollaid with chair #1 ea 06/04/23 08/16/23 Unknown Rx nebulizer #1 ea 06/04/23 08/16/23 Unknown Rx nebulizer supplies (hose, mask,ect) #1 ea 06/04/23 08/16/23 Unknown Rx oxygen concentrator #1 ea 06/04/23 08/16/23 Unknown Rx shower chair #1 ea 06/04/23 08/16/23 Unknown Rx toiler riser with handles #1 ea 06/04/23 08/16/23 Unknown Rx [place] #1 ea 06/17/23 08/16/23 Unknown Rx acetaminophen 325 mg tablet 650 mg PO Q6H PRN PAIN OR 08/16/23 08/16/23 Unknown History INCREASED TEMP amiodarone 200 mg tablet 200 mg PO BEDTIME 08/16/23 08/16/23 08/15/23 History bisacodyl 10 mg rectal suppository See Rx Instructions .Route 08/16/23 08/16/23 Unknown History .COMPLEX PRN Constipation doxycycline hyclate 100 mg capsule 100 mg PO DAILY 08/16/23 08/16/23 08/16/23 History ondansetron HCl 8 mg tablet 8 mg PO Q6H PRN Nausea 08/16/23 08/16/23 08/16/23 History pantoprazole 40 mg tablet,delayed 40 mg PO BEDTIME 08/16/23 08/16/23 08/15/23 History release Allergies Allergy/AdvReac Type Severity Reaction Status Date / Time latex Allergy Mild Blisters Verified 07/01/23 14:03 petrolatum,white Allergy Mild Blisters Verified 07/01/23 14:03 [From A and D Barrier] amlodipine Allergy Unknown Verified 07/01/23 14:03 PFSH Acute PFSH: Medical History Chronic pain Chronic GI bleeding Hiatal hernia High risk medication use Chronic anemia COPD (chronic obstructive pulmonary disease) Severe tobacco use disorder ESRD on hemodialysis History of renal dialysis Chronic kidney disease 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 Intermittent palpitations Hyperlipidemia Hypertension XI (obstructive sleep apnea) DJD (degenerative joint disease) Atrial flutter PVD (peripheral vascular disease) Diabetes Surgical History 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 H/O aortic valve replacement with tissue graft H/O aortic valve replacement H/O foot surgery Family History Grandmother Diabetes Grandfather Diabetes Denies family history of CAD (coronary artery disease) Clotting disorder Dementia Chronic kidney disease (CKD) Suicide Anesthesia complication Bleeding disorder Lung disease Cancer Stroke Social History Smoking and tobacco/nicotine status: former use of tobacco/nicotine Alcohol intake: never Substance/Drug Use: never Lives independently: Yes (with girlfriend) Household members: significant other Marital status: Single service: No 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al status: disabled 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 Pets and animals: Yes Special araceli needs: No Agree to transfusion: Yes Vitals/I&O/Wt Last Vital Signs Temp 98.2 F 08/16/23 12:45 Pulse 50 L 08/16/23 13:30 Resp 17 08/16/23 13:30 BP 125/63 08/16/23 13:30 Pulse Ox 100 08/16/23 13:30 O2 Del Method Room Air 08/16/23 13:30 O2 Flow Rate 3 08/16/23 13:18 Physical Exam Narrative: Clinically patient does not look significantly fluid overloaded Currently movement Hemodynamic stable Bradycardia A-fib slow ventricular sponsor Junctional rhythm? Awake and alert nonfocal neuroexam GCS 15 Lower extremity venous stasis dermatitis Venous stasis ulcers Lower extremity edema Abdomen distended nontender Nonfocal neuroexam Data 08/16/23 12:41 08/16/23 12:41 A&P Assessment and plan (1) Hypertension: Qualifiers: Hypertension type: essential hypertension Qualified Code(s): I10 - Essential (primary) hypertension (2) Acute exacerbation of congestive heart failure: (3) H/O aortic valve replacement: (4) Moderate to severe mitral regurgitation: (5) NSTEMI (non-ST elevated myocardial infarction): (6) Atrial fibrillation: (7) Diabetes: Qualifiers: Diabetes mellitus type: type 2 Diabetes mellitus jail insulin use: with jail use Diabetes mellitus complication status: with diabetic arthropathy Diabetes mellitus complication detail: with other arthropathy Qualified Code(s): E11.618 - Type 2 diabetes mellitus with other diabetic arthropathy; 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 Conservative management Hypertensive: Continue lisinopril metoprolol succinate A-fib without RVR patient not on anticoagulating agent When asked patient stated that he has aortic valve which is bovine Continue amiodarone A-fib with bradycardia: Discontinue metoprolol succinate, continue amiodarone Full code Cardiac diet Attestations Medical Necessity Statement*: Anticipating more than 2 midnights Diagnoses Essential hypertension I10 Hypertension type: essential hypertension Acute exacerbation of congestive heart failure I50.9 H/O aortic valve replacement Z95.2 Moderate to severe mitral regurgitation I34.0 NSTEMI (non-ST elevated myocardial infarction) I21.4 Atrial fibrillation I48.91 Type 2 diabetes mellitus with other diabetic arthropathy, with long-term current use of insulin E11.618; Z79.4 Diabetes mellitus type: type 2 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
--- NOTE | 2023-08-16 13:58 | USCV_ITS ---
Richard Huffman Age: 63 Gender: M : 1960 Exam Date: 08/16/2023 14:16 Ordering Phys: Patito Michael MD Technologist: Exam Location: [facility] – [place] Indication: nstemi BP: 134 / 60 HR: Rhythm: Sinus Technical Quality: Adequate MEASUREMENTS (Male / Female) Normal Values 2D ECHO LV Diastolic Diameter PLAX 3.9 cm 4.2 - 5.9 / 3.9 - 5.3 cm IVS Diastolic Thickness 1.2 cm 0.6 - 1.0 / 0.6 - 0.9 cm IVS Systolic Thickness 1.6 cm LVPW Diastolic Thickness 1.2 cm 0.6 - 1.0 / 0.6 - 0.9 cm LVPW Systolic Thickness 1.3 cm LVOT Diameter 2.0 cm LV Ejection Fraction 2D Teich 74.7 % LV Ejection Fraction MOD 2C 67.0 % LV Ejection Fraction 2C AL 69.4 % LA Diameter 3.9 cm RA Systolic Volume 4C AL 76.6 ml RA Systolic Volume 4C MOD 75.0 ml Aorta at Sinotubular Diameter 3.7 cm M-MODE LA Ao Ratio MM 1.3 AV Cusp Separation MM 1.3 cm FINDINGS Left Ventricle Right Ventricle Right Atrium Left Atrium Mitral Valve Aortic Valve Tricuspid Valve Pulmonic Valve Pericardium Aorta IVC CONCLUSIONS Limited echocardiogram performed to assess LV systolic function LV systolic function is normal with EF of 55-60% Shayan Stout MD (Electronically Signed) Final Date: 16 August 2023 17:54 S
[2023-08-16] MEDS: aspirin 325 mg EC Tablet PO (14:35)
[2023-08-16] MEDS: clopidogrel 300 mg Tablet PO (14:35)
[2023-08-16] MEDS: calcium gluconate 0.1 gm/mL 10% SDV 10mL 1 GM IVP (14:38)
[2023-08-16] MEDS: insulin regular-human 100 units/1 mL 10 UNIT IVP (14:38)
--- NOTE | 2023-08-16 14:40 | ECG_ITS ---
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 Measurements Intervals [place] Rate: 49 P: 0 MD: 0 QRS: -57 QRSD: 168 T: 69 QT: 537 QTc: 487 Interpretive Statements ATRIAL FIBRILLATION WITH SLOW VENTRICULAR RESPONSE, baseline artifact LEFT AXIS DEVIATION [QRS AXIS < -30] RIGHT BUNDLE BRANCH BLOCK [120+ ms QRS DURATION, UPRIGHT V1, 40+ ms S IN I/aVL/V4/V5/V6] MODERATE VOLTAGE CRITERIA FOR LVH, CONSIDER NORMAL VARIANT [MEETS CRITERIA IN ONE OF: R(aVL), S(V1), R(V5), R(V5/V6)+S(V1)] Compared to ECG 08/16/2023 12:48:28 Sinus bradycardia no longer present Sinus arrhythmia no longer present Electronically Signed On 08-16-2023 14:36:13 CDT by Adria Tian M.D. [email or web address] sunflower medical [email or web address] medical [facility] [place].[employer]/store/OM/[id number]
--- NOTE | 2023-08-16 15:08 | PC.NURSE ---
report called to Enma Muro
[2023-08-16 15:48] LABS: Troponin 5 2HR Delta 1.6 ABS# (0-10)
[2023-08-16 15:50] LABS: Troponin 5 2HR 336.6 ng/L (0-15)
[2023-08-16] MEDS: heparin drip 25,000 UNIT/500 ML PREMIX 31.120000000000001 UNIT IV (17:03)
[2023-08-16] MEDS: heparin 5,000 unit/mL INJ 1 mL IV (17:04)
[2023-08-16 17:05] LABS: Glucose Point of Care 106 mg/dL (70-110)
[2023-08-16] MEDS: amiodarone 200 mg Tablet PO (17:05)
[2023-08-16] MEDS: hyDRALAzine 50 mg Tablet PO (17:05)
[2023-08-16] MEDS: metoprolol succinate ER (24 HR) 50 mg Tablet PO (17:05)
--- NOTE | 2023-08-16 18:03 | P.CONIM_ITS ---
Providers/Reason For Consult 2 Consulting Physician/Specialty*: robert sin md/ telenephrology Reason for Consult*: ESRD and hyperkalemia Requesting Physician: DR Ramos and Dr Michael Attending Physician: Heidy Ramos MD Primary Care Provider: Christofer Varghese MD History of Present Illness History of Present Illness Richard Huffman is a 63 year old male pt w/ ESRD, AVR w/ bovine valve. a fib/ flutter, anemia and GI bleed, COPD, Strep epidermidis endocarditis, htn, DM type 2. The Pt missed dialysis today and was admitted for weakness, palps, leg and back pain. He has constatnt chest pain. Renal is called for bradycardia and a k of 6.9. he is also nauseated and weak now. Review of Systems 2 Narrative: weak,CP, nausea, palps, bradycardia, SOB, swollen legs, confused. Medications/Allergies Home Medications Medication Instructions Recorded Confirmed Last Taken Type hydralazine 50 mg tablet 50 mg PO BID 05/28/22 08/16/23 08/16/23 History oxycodone-acetaminophen 5 mg-325 0.5 - 1 tab PO Q4H PRN Pain 07/15/22 08/16/23 05/06/23 History mg tablet cyanocobalamin (vitamin B-12) 1,000 mcg PO DAILY 08/25/22 08/16/23 08/16/23 History 1,000 mcg tablet (Vitamin B-12) tramadol 50 mg tablet 50 mg PO Q6H PRN Pain, Mild 12/29/22 08/16/23 05/02/23 History Cruthes #1 ea 05/11/23 08/16/23 Unknown Rx vit B,C-folic ac 800 mcg-zinc 12.5 1 tab PO BEDTIME 05/15/23 08/16/23 08/15/23 History mg-selen-D3 2,000 unit-vit E tablet (RenaPlex-D) albuterol sulfate 90 mcg/actuation 1 inh inhalation QID PRN shortness 06/01/23 08/16/23 Unknown Rx aerosol inhaler (Ventolin HFA) of breath or wheezing #8.5 grams budesonide 0.5 mg/2 mL suspension 0.5 mg (2 mL) inhalation BID #60 mL 06/01/23 08/16/23 08/16/23 Rx for nebulization budesonide-formoterol HFA 80 2 puff inhalation BID PRN unknown 06/01/23 08/16/23 Unknown Rx mcg-4.5 mcg/actuation aerosol #10.2 grams inhaler (Symbicort) bumetanide 2 mg tablet 2 mg PO BID #180 tabs 06/01/23 08/16/23 08/16/23 Rx escitalopram oxalate 10 mg tablet 10 mg PO QAM #90 tabs 06/01/23 08/16/23 08/16/23 Rx (Lexapro) fluticasone propionate 50 2 spray intranasal DAILY PRN 06/01/23 08/16/23 Unknown Rx mcg/actuation nasal Allergy Symptoms #16 grams spray,suspension ipratropium 0.5 mg-albuterol 3 mg 3 ml inhalation Q6H Shortness Of 06/01/23 08/16/23 08/16/23 Rx (2.5 mg base)/3 mL nebulization Breath #180 mL soln isosorbide mononitrate 30 mg 30 mg PO DAILY #90 tabs 06/01/23 08/16/23 08/16/23 Rx tablet,extended release 24 hr lisinopril 20 mg tablet 20 mg PO BEDTIME #90 tabs 06/01/23 08/16/23 08/15/23 Rx metolazone 5 mg tablet 5 mg PO QAM #90 tabs 06/01/23 08/16/23 08/16/23 Rx metoprolol succinate 50 mg 50 mg PO BID #180 tabs 06/01/23 08/16/23 08/16/23 Rx tablet,extended release 24 hr nitroglycerin 2.5 mg 2.5 mg PO DAILY PRN chest 06/01/23 08/16/23 08/16/23 Rx capsule,extended release tightness #30 caps ropinirole 2 mg tablet 2 mg PO BEDTIME #90 tabs 06/01/23 08/16/23 08/15/23 Rx Diabetic shoes #1 ea 06/04/23 08/16/23 Unknown Rx four point rollaid with chair #1 ea 06/04/23 08/16/23 Unknown Rx nebulizer #1 ea 06/04/23 08/16/23 Unknown Rx nebulizer supplies (hose, mask,ect) #1 ea 06/04/23 08/16/23 Unknown Rx oxygen concentrator #1 ea 06/04/23 08/16/23 Unknown Rx shower chair #1 ea 06/04/23 08/16/23 Unknown Rx toiler riser with handles #1 ea 06/04/23 08/16/23 Unknown Rx [place] #1 ea 06/17/23 08/16/23 Unknown Rx acetaminophen 325 mg tablet 650 mg PO Q6H PRN PAIN OR 08/16/23 08/16/23 Unknown History INCREASED TEMP amiodarone 200 mg tablet 200 mg PO BEDTIME 08/16/23 08/16/23 08/15/23 History bisacodyl 10 mg rectal suppository See Rx Instructions .Route 08/16/23 08/16/23 Unknown History .COMPLEX PRN Constipation doxycycline hyclate 100 mg capsule 100 mg PO DAILY 08/16/23 08/16/23 08/16/23 History ondansetron HCl 8 mg tablet 8 mg PO Q6H PRN Nausea 08/16/23 08/16/23 08/16/23 History pantoprazole 40 mg tablet,delayed 40 mg PO BEDTIME 08/16/23 08/16/23 08/15/23 History release Allergies Allergy/AdvReac Type Severity Reaction Status Date / Time latex Allergy Mild Blisters Verified 07/01/23 14:03 petrolatum,white Allergy Mild Blisters Verified 07/01/23 14:03 [From A and D Barrier] amlodipine Allergy Unknown Verified 07/01/23 14:03 Current Medications Generic Name Dose Route Start Last Admin Trade Name Freq PRN Reason Stop Dose Admin Amiodarone HCl 200 mg 08/16/23 18:00 08/16/23 17:05 Amiodarone 200 Mg Tablet PO 200 mg QPM KENNEDY Administration Heparin Sodium (Porcine) 0 unit 08/16/23 13:53 08/16/23 17:04 Heparin 5,000 Unit/Ml Inj 1 Ml IV 5,500 unit PRN PRN Administration Heparin weight-base protocol Protocol Hydralazine HCl 50 mg 08/16/23 18:00 08/16/23 17:05 Hydralazine 50 Mg Tablet PO 50 mg BID KENNEDY Administration Heparin Sodium/Sodium Chloride 25,000 unit in 500 mls @ 0 mls/hr 08/16/23 14:00 08/16/23 17:03 Heparin Drip IV 14 unit/kg/hr .Q0M KENNEDY 31.12 mls/hr Administration Protocol Per Protocol PFSH Acute 2 PFSH: Medical History Chronic pain Chronic GI bleeding Hiatal hernia High risk medication use Chronic anemia COPD (chronic obstructive pulmonary disease) Severe tobacco use disorder ESRD on hemodialysis History of renal dialysis Chronic kidney disease 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 Intermittent palpitations Hyperlipidemia Hypertension XI (obstructive sleep apnea) DJD (degenerative joint disease) Atrial flutter PVD (peripheral vascular disease) Diabetes Surgical History 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 H/O aortic valve replacement with tissue graft H/O aortic valve replacement H/O foot surgery Family History Grandmother Diabetes Grandfather Diabetes Denies family history of CAD (coronary artery disease) Clotting disorder Dementia Chronic kidney disease (CKD) Suicide Anesthesia complication Bleeding disorder Lung disease Cancer Stroke Social History Smoking and tobacco/nicotine status: former use of tobacco/nicotine Alcohol intake: never Substance/Drug Use: never Lives independently: Yes (with girlfriend) Household members: significant other Marital status: Single service: No 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al status: disabled 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 Pets and animals: Yes Special araceli needs: No Agree to transfusion: Yes Vitals/I&O/Wt Last Vital Signs Temp 98.2 F 08/16/23 12:45 Pulse 50 L 08/16/23 13:30 Resp 17 08/16/23 13:30 BP 125/63 08/16/23 13:30 Pulse Ox 100 08/16/23 13:30 O2 Del Method Room Air 08/16/23 13:30 O2 Flow Rate 3 08/16/23 13:18 Weight last 48 hrs Weight 111.13 kg Physical Exam 2 Narrative: obese, ill appearing, swollen VS noted- bradycardcia HEENT - nc/at, eomi neck supple lungs b/l crackles heart irreg, braqdycardic, +LEORA abdomen sft, +BS ext b/l edema RT ACW permacath seen w/ RN- telehealth visit Data 08/16/23 12:41 08/16/23 12:41 A&P Assessment and plan (1) ESRD (end stage renal disease) on dialysis: 63 yr old man 1. ESRD- for HD today 2. hyperkalemia- RX medically and HD 3. CP per Dr Tierney of Cardiology and DR Michael of Medicine -elevated BNP - HD today 4. anemia- check iron studies 5. hyponatremia- monitor w/ dialysis 6. DM control seen w/ RN- telehealth visit -informed consent for telehealth and Hemodialysis obtained from the pt discussed w/ pt, RN, glaze mixer, and DR Michael Plan see above Consult Attestations 2 Medical Necessity Statement: hyperkalemia and ESRD, Volume overload, CP Time Spent in Patient Care: Greater than 35 minutes Coding Level of Care Code Acute Code for Chg Fwd Diagnoses ESRD (end stage renal disease) on dialysis N18.6; Z99.2
--- NOTE | 2023-08-16 18:06 | ECG_ITS ---
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 Measurements Intervals [place] Rate: 53 P: 104 PA: 233 QRS: -64 QRSD: 168 T: 33 QT: 534 QTc: 503 Interpretive Statements SINUS BRADYCARDIA WITH FIRST DEGREE AV BLOCK LEFT AXIS DEVIATION [QRS AXIS < -30] RIGHT BUNDLE BRANCH BLOCK [120+ ms QRS DURATION, UPRIGHT V1, 40+ ms S IN I/aVL/V4/V5/V6] Compared to ECG 08/16/2023 14:13:12 First degree AV block now present Atrial fibrillation no longer present Electronically Signed On 08-17-2023 7:32:16 CDT by Shayan Stout M.D. [email or web address] Energyrad[facility].[employer]/store/[id number]
[2023-08-16 19:06] LABS: Blood Urea Nitrogen 71 mg/dL (8-23); Calcium 9.2 mg/dL (8.5-10.5); Carbon Dioxide 21 mmol/L (22-29); Chloride 88 mmol/L (98-107); Creatinine Clr Calc Pharmacy 14.4421; Glomerular Filtration Rate 8.6 mL/min (90-130); Glucose 103 mg/dL (65-115); Osmolality Calculated 291 mOsm/kg (285-295); Sodium 130 mmol/L (136-145)
[2023-08-16 19:14] LABS: Anion Gap 28.2 (5-19)
--- NOTE | 2023-08-16 19:16 | ECG_ITS ---
[facility] Test Date: 2023-08-16 Pat Name: Richard Huffman Department: Room: ICU11 Gender: Male Trade Marker: : 1960 Requested By: Garland Watson Order Number: [id number] Beard MD: Shayan Stout M.D. Measurements Intervals [place] Rate: 51 P: 57 NH: 200 QRS: -58 QRSD: 155 T: 26 QT: 521 QTc: 482 Interpretive Statements SINUS BRADYCARDIA LEFT AXIS DEVIATION [QRS AXIS < -30] RIGHT BUNDLE BRANCH BLOCK [120+ ms QRS DURATION, UPRIGHT V1, 40+ ms S IN I/aVL/V4/V5/V6] MINIMAL VOLTAGE CRITERIA FOR LVH, CONSIDER NORMAL VARIANT [MEETS CRITERIA IN ONE OF: R(aVL), S(V1), R(V5), R(V5/V6)+S(V1)] INTERPRETATION BASED ON A DEFAULT AGE OF 40 YEARS Compared to ECG 08/16/2023 18:06:24 First degree AV block no longer present Electronically Signed On 08-17-2023 7:26:00 CDT by Shayan Stout M.D. [email or web address].Serene Oncologyhannibal regional hospitalDhinganamer[facility].[employer]/store/NU/[id number] f
[2023-08-16] MEDS: dextrose 50% syringe 50 mL (19:20)
[2023-08-16 19:25] LABS: Uric Acid 6.9 mg/dL (3.4-7.0)
[2023-08-16] MEDS: sodium polystyrene sulfonate 15 gm/60 mL Btl 30 GM PO (19:25)
[2023-08-16 19:35] LABS: Glucose Point of Care 150 mg/dL (70-110)
[2023-08-16] MEDS: calcium gluconate 0.9% NaCL 1 GM/50 ML PREMIX IV ×2 (19:45→20:25)
[2023-08-16] MEDS: oxyCODONE-APAP 5-325 mg Tablet 1 TAB PO ×2 (19:51→23:56)
[2023-08-16 19:53] LABS: Potassium 7.2 mmol/L (3.5-5.1)
[2023-08-16 19:54] LABS: Troponin 5 6HR 368.6 ng/L (0-15); Troponin 5 6HR Delta 33.6 ng/L (0-12)
[2023-08-16] MEDS: insulin regular-human 5 UNIT in SYRINGE 1 EACH 0.0500000000000000028 UNIT IVP (19:59)
[2023-08-16] MEDS: albuterol 2.5 mg/3 mL Neb 15 MG INHALATION (20:00)
--- NOTE | 2023-08-16 20:01 | PC.NURSE ---
Patient complaints of chest pain, and dizziness. EKG was done and showed SR with first degree block and LBBB. Shortly after patient became diaphoretic, less responsive, heart rate dropped into the low 40's. Rhythm changes noted, rapid response initiated. Patient then transferred to ICU.
[2023-08-16] MEDS: heparin, porcine 1,000 unit/mL INJ 10 mL 1000 UNIT IV (20:08)
[2023-08-16 20:18] LABS: ABG PCO2 34.4 mmHg (35-45); ABG PH Result 7.41 (7.35-7.45); Arterial Blood Gas Hematocrit 26.9 % (42-52); Base Excess ABG -2.6 mmol/L (-2.0-2.0); Blood Gas Allen Test Pos; Blood Gas Operator Identificat JB; Blood Gas Sample Site Radial, right; Blood Gas Sample Type Arterial; Carboxyhemoglobin 2.6 %THgb (0.4-20.1); HCO3 ABG 21.7 mmol/L (22-26); HGB O2 Sat 97.6 % (95-100); Ionized Calcium Level - ABG 1.2 mmol/L (1.1-1.4); Methemoglobin 0.6 % (0.4-1.5); Oxygen Device CONT NEB; Oxygen Saturation ABG > 100.0; Potassium Level - ABG 5.9 mmol/L (3.5-5.0); Total Hemoglobin 8.8 g/dL (14-18)
[2023-08-16] MEDS: b-complex-vitamin c Tablet 1 EACH PO (21:58)
[2023-08-16] MEDS: ropinirole 2 mg Tablet PO (21:58)
--- NOTE | 2023-08-16 22:46 | PC.NURSE ---
Upon arrival from [facility] patient was given first bag of calcium gluconate that was ordered as a one time order. Bag 2 of calcium gluconate was scanned and given in ICU and shows it is bag 1 of 2, but only 2 bags in total needed to be given, bag 3 was not given per doctors orders. Lasix 80 mg IVP not given per doctors orders, documented not given, MD aware. Insulin regular-human 8 units not given per doctors orders, documented not given, MD aware, consulted with Dr. Espinoza. Pt did receive insulin regular-human 5 units on arrival to ICU.
[2023-08-16 22:53] LABS: Hepatitis B Surface AB 213.6 (11.5-1000); Hepatitis B Surface Antigen Non-Reactive (Nonreactive); Hepatitis C Virus Antibody Non-Reactive (Nonreactive)
--- NOTE | 2023-08-16 23:06 | ECG_ITS ---
[facility] Test Date: 2023-08-16 Pat Name: Richard Huffman Department: Room: ICU11 Gender: Male Reel Slitter: : 1960 Requested By: Garland Watson Order Number: [id number] Kisha MD: Shayan Stout M.D. Measurements Intervals [place] Rate: 77 P: 0 MT: 0 QRS: -50 QRSD: 134 T: 46 QT: 447 QTc: 507 Interpretive Statements SINUS RHYTHM LEFT AXIS DEVIATION [QRS AXIS < -30] RIGHT BUNDLE BRANCH BLOCK [120+ ms QRS DURATION, UPRIGHT V1, 40+ ms S IN I/aVL/V4/V5/V6] MODERATE VOLTAGE CRITERIA FOR LVH, CONSIDER NORMAL VARIANT [MEETS CRITERIA IN ONE OF: R(aVL), S(V1), R(V5), R(V5/V6)+S(V1)] Compared to ECG 08/16/2023 19:16:48 Sinus bradycardia no longer present Electronically Signed On 08-17-2023 7:29:32 CDT by Shayan Stout M.D. [email or web address] M[employer] Game Studiosnoxubee general hospitalHomeforswapsycamore [facility].[employer]/store/NU/[id number] wood
[2023-08-16 23:24] LABS: Partial Thromboplastin Time 62.2 SECONDS (23.9-36.7)
[2023-08-17] VITALS (49 sets, daily range): BP systolic 97–149; BP diastolic 36–97; PULSE 57–86; RESP 13–29; TEMP 35.9–37.2; O2SAT 86–100; BMI 36.6
[2023-08-17 00:45] LABS: Anion Gap 22.5 (5-19); Blood Urea Nitrogen 34 mg/dL (8-23); Calcium 9.2 mg/dL (8.5-10.5); Carbon Dioxide 24 mmol/L (22-29); Chloride 98 mmol/L (98-107); Glomerular Filtration Rate 17.9 mL/min (90-130); Glucose 109 mg/dL (65-115); Phosphorus 4.7 mg/dL (2.5-4.5); Potassium 4.5 mmol/L (3.5-5.1); Sodium 140 mmol/L (136-145)
[2023-08-17 00:48] LABS: Creatinine Clr Calc Pharmacy 27.2337
[2023-08-17] MEDS: hyDROXYzine 25 mg Capsule PO (02:24)
[2023-08-17] MEDS: oxyCODONE-APAP 5-325 mg Tablet 1 TAB PO ×2 (04:07→20:42)
[2023-08-17 04:48] LABS: Basophils % 0.6 %; Eosinophils % 0.2 %; Hematocrit 27.1 % (37-53); Lymphocytes # 0.9 10^3/uL (0.8-4.8); Lymphocytes % 14.2 %; Mean Corpuscular HGB Conc 30.3 g/dL (30-55); Mean Corpuscular Hemoglobin 32.4 pg (27-33); Mean Corpuscular Volume 107.1 fl (82-101); Mean Platelet Volume 10.5 fL (7.4-10.4); Monocytes # 0.8 10^3/uL (0.2-0.9); Monocytes % 11.3 %; Neutrophils # 4.86 10^3/uL (1.8-7.7); Neutrophils % 73.4 %; Nucleated Red Blood Cells % 0 %; Platelet Count 124 10^3/cmm (157-399); Red Blood Count 2.53 10^6/uL (3.85-5.65); White Blood Count 6.62 10^3/uL (3.29-11.43)
[2023-08-17 05:11] LABS: Alanine Aminotransferase 20 U/L (0-41); Albumin Level 3.7 g/dL (3.5-5.2); Alkaline Phosphatase 312 U/L (40-130); Anion Gap 19.2 (5-19); Aspartate Amino Transferase 28 U/L (0-40); Blood Urea Nitrogen 41 mg/dL (8-23); Calcium 8.8 mg/dL (8.5-10.5); Carbon Dioxide 25 mmol/L (22-29); Chloride 97 mmol/L (98-107); Globulin 3.2 g/dL (1.3-4.6); Glomerular Filtration Rate 13.4 mL/min (90-130); Glucose 119 mg/dL (65-115); Iron 68 ug/dL (59-158); Osmolality Calculated 293 mOsm/kg (285-295); Percent Saturation 33.6 % (20-50); Potassium 5.2 mmol/L (3.5-5.1); Sodium 136 mmol/L (136-145); Total Bilirubin 1.3 mg/dL (0.15-1.2); Total Iron Binding Capacity 202 mcg/dl; Total Protein 6.9 g/dL (6.6-8.7); Unsaturated Iron Binding 134 ug/dL (112-347)
[2023-08-17 05:12] LABS: Creatinine Clr Calc Pharmacy 21.2172
[2023-08-17 05:19] LABS: C Reactive Protein 97.7 mg/L (0.0-4.9); Magnesium 2.1 mg/dL (1.7-2.3); Phosphorus 6.3 mg/dL (2.5-4.5)
[2023-08-17 05:20] LABS: Calcium 8.6 mg/dL (8.5-10.5)
[2023-08-17 05:25] LABS: 25 Hydroxy Vitamin D 47 ng/mL (30-100)
[2023-08-17 05:26] LABS: Ferritin 2807 ng/mL (30-400); Parathyroid Hormone 137.8 pg/mL (15-65)
--- OUTSIDE RECORDS SUMMARY | 2023-08-17 07:00 | XMS_ITS | Patient Health Record ---
Author Name Unknown Organization [facility] Address [address] [place], [place] [address] Care Team Providers Care Director Career Services Name Role Phone Sally HERNDON, Sulma Primary Care Provider Unava nik Nava MD, Alonso Unavailable [phone] Arnoldo HERNDON, Sarmad Unavailable Unavailable Feli Cano Unavailable [phone] ALLERGIES Allergen (clinical drug ingredient) Drug/Non Drug Allergy documented on EMR Reaction Allergy Type Onset Date Status Latex latex (uncoded) Unknown Allergy Acti ve vitamin b and d ointment (uncoded) Unknown Allergy Active amlodipine amlodipine Unknown Drug Allergy Activ e REASON FOR REFERRAL No Information MEDICATIONS Medication SIG (Take, Route, Frequency, Duration) Notes Start Date End Date Status acetaminophen-oxycodone 325 mg-5 mg 1/2 - 1 tab orally Q4-6H prn severe pain (max 1 1/2 per day; hold within 4H of planned sleep) Active Aspir-Low 81 mg 1 tab orally once a day Active torsemide 100 mg 1 tab(s) orally once a day for 30 day(s) Active amiodarone 200 mg 1 tab(s) orally once a day for 30 day(s) Active Spiriva Respimat 1.25 mcg/inh 2 puff(s) inhaled once a day for 30 day(s) Active acetaminophen-oxycodone 325 mg-5 mg 1/2 - 1 tab orally Q4-6H prn severe pain (max 1 1/2 per day; hold within 4H of planned sleep) Active rOPINIRole 1 mg 1 tab(s) orally once a day Active RenaPlex-D Vitamin B Complex with C,D,E, Folic Acid, Selenium and Zinc 1 tab(s) orally once a day Active metoprolol 50 mg 1 tab orally once a day Active metOLazone 5 mg 1 tab(s) orally once a day for 30 day(s) Active lisinopril 20 mg 1 tab(s) orally once a day for 30 day(s) Active hydrALAZINE 50 mg 1 tab(s) orally 3 ti mes a day Active escitalopram 10 mg 1 tab(s) orally once a day for 30 day(s) Active Vitamin D3 5000 intl units as directed o rally once a day for 30 day(s) Active doxycycline hyclate 100 mg 1 cap orally 2 times a day Active Vitamin B12 1000 mcg 1 tab orally once a day Active bumetanide 2 mg 1 [...] elsewhere classified (M46.1) Active confirmed Solitary sacroiliitis (821524575) Problem Low back pain (M54.5) Active confirmed Low back pain (588883067) Problem Spondylosis without myelopathy or radiculopathy, lumbar region (M47.816) Active confirmed Lumbosacral spondylosis without myelopathy (20940640) Problem long-term (current) use of opiate analgesic (Z79.891) Active confirmed High risk drug monitoring status (008256037) Problem Obstructive sleep apnea (adult) (pediatric) (G47.33) Active confirmed Obstructive sleep apnea syndrome (83152252) Problem Other chronic pain (G89.29) Active confirmed Chronic pain (33993020) Problem Other intermediate (current) drug therapy (Z79.899) Active confirmed Long-term current use of drug therapy (566199870) Problem Vertebrogenic low back pain (M54.51) Active confirmed Low back pain (finding) (122878976) VITAL SIGNS Temperature 97.7 degrees Fahrenheit 01/26/2023 Oximetry 94 % 01/26/2023 Height 69 in 01/26/2023 Weight 235.6 lbs 01/26/2023 BMI 34.79 kg/m2 01/26/2023 Encounters Encounter Location Date [facility] [email or web address] [place], [place] [id number] 08/20/2022 Feli Delacruz Vertebrogenic low ba ck pain M54.51 ; Other chronic pain G89.29 and Obstructive sleep apnea (adult) (pediatric) G47.33 [facility] [address] [place], [place] [id number] 11/12/2022 Feli Delacruz Vertebrogenic low ba ck pain M54.51 ; Other chronic pain G89.29 and Obstructive sleep apnea (adult) (pediatric) G47.33 [facility] [address] [place], [place] [id number] 01/26/2023 Feli Delacruz Vertebrogenic low ba ck pain M54.51 ; Other chronic pain G89.29 and Obstructive sleep apnea (adult) (pediatric) G47.33 ASSESSMENTS Encounter Date Diagnosis Assessment Notes Treatment Notes Treatment Clinical Notes 08/20/2022 Other chronic pain (ICD-10 - G89.29) [...] - M54.51) Chronic axial lumbosacral spine pain 01/26/2023 Vertebrogenic low back pain (ICD-10 - M54.51) Chronic axial lumbosacral spine pain. 01/26/2023 Obstructive sleep apnea (adult) (pediatric) (ICD-10 - G47.33) Patient with history of inability to tolerate CPAP. Patient reports seeing Dr. Mckinney, pulmonology. Pulmonary work up in progress including PFTs and sleep study per patient report. Patient has also reported of a spot on his lung with discussion of a possible biopsy (all on hold at this time). 01/26/2023 Other chronic pain (ICD-10 - G89.29) Patient reports that taking his pain medication allows him to spend time with his grand kids. Patient has been deemed a poor interventional spine treatment candidate for multiple reasons. Plan to continue oral opioid medication management. Plan opioid taper with next refills. 08/20/2022 Obstructive sleep apnea (adult) (pediatric) (ICD-10 [...] management. Consider opioid taper at next visit 08/20/2022 Other 11/12/2022 Other 01/26/2023 Other Patient to call for next office visit. Plan opioid taper at that time. PLAN OF TREATMENT No Information Insurance Providers Payer Name Payer Address Payer Phone Subscriber Number Group Number Insured Name Patient Relationship to Insured Coverage Start Date Coverage End Date [facility] [address] [address] [place] [address] [id number] Richard Huffman Self - patient is the insured MEDICAL [...] stone, 2002 Aortic valve replacement, performed at [facility], 10/03/16 Aortic valve replacement, performed at [facility], 02/22/17 Aortic valve replacement, performed at [facility] in [place], [place], 02/2022 Hospitalization History Reason Date(Month/Year) Infection, treated at [facility], 10/2016 Infection, treated at [facility], 01/01/17 Pneumonia, treated at [facility], 06/2022 Heart related, treated at [facility], 11/01/22
--- NOTE | 2023-08-17 07:34 | P.PN_ITS ---
Subjective 2 Subjective: feels better. dec orthopnea and SOB. no n/v/f/c/landa/d Medications: Reviewed: Yes Medication Review Details: Current Medications Acetaminophen (Acetaminophen 500 Mg Tablet) 500 mg PO Q4H PRN PRN Reason: fever Albuterol/Ipratropium (Ipratropium-Albuterol 3 Ml Neb) 3 ml INHALATION Q6H PRN PRN Reason: SHORTNESS OF BREATH Amiodarone HCl (Amiodarone 200 Mg Tablet) 200 mg PO QPM [facility] Last Admin: 08/16/23 17:05 Dose: 200 mg Aspirin (Aspirin 81 Mg Ec Tablet) 81 mg PO DAILY [facility] Clopidogrel Bisulfate (Clopidogrel 75 Mg Tablet) 75 mg PO DAILY [facility] Escitalopram Oxalate (Escitalopram 10 Mg Tablet) 10 mg PO DAILY [facility] Dextrose (D10w) 125 mls @ 750 mls/hr IV PRN PRN PRN Reason: HYPOGLYCEMIA Dextrose (D10w) 250 mls @ 1,000 mls/hr IV PRN PRN PRN Reason: HYPOGLYCEMIA Isosorbide Mononitrate (Isosorbide Mononitrate Er 30 Mg Tablet) 30 mg PO DAILY [facility] Multivitamins (B-Irlxahn-Fumtely C Tablet) 1 each PO BEDTIME [facility] Last Admin: 08/16/23 21:58 Dose: 1 each Ondansetron HCl (Ondansetron 2 Mg/Ml Sdv 2 Ml) 4 mg IVP Q6H PRN PRN Reason: NAUSEA AND VOMITING Oxycodone/Acetaminophen (Oxycodone-Apap 5-325 Mg Tablet) 1 tab PO Q4H PRN PRN Reason: Pain Last Admin: 08/17/23 04:07 Dose: 1 tab Ropinirole HCl (Ropinirole 2 Mg Tablet) 2 mg PO BEDTIME [facility] Last Admin: 08/16/23 21:58 Dose: 2 mg Vitals/I&O/Wt Last Vital Signs Temp 98.5 F 08/17/23 04:00 Pulse 60 08/17/23 06:30 Resp 18 08/17/23 06:30 BP 98/60 08/17/23 06:30 Pulse Ox 95 08/17/23 06:30 O2 Del Method Nasal Cannula 08/17/23 06:00 O2 Flow Rate 3 08/17/23 06:00 08/16/23 08/17/23 08/17/23 22:59 06:59 14:59 Intake Total 220.05 / 220.05 740 / 960.05 Output Total 2989 / 2989 Balance 220.05 / 220.05 -2249 / -2027.95 Weight last 48 hrs Weight 112.491 kg Weight 111.493 kg Weight 111.13 kg Weight 111.13 kg Physical Exam 2 Narrative: obese, less, swollen VS noted- HR improved HEENT - nc/at, eomi neck supple lungs b/l crackles decreased heart irreg,+s1, s2 +LEORA abdomen soft, +BS ext b/l edema decreaed neuro- a,a, o x 3 RT ACW permacath seen w/ RN- telehealth visit Data 08/17/23 04:39 08/17/23 04:39 A&P Assessment and plan (1) ESRD (end stage renal disease) on dialysis: 63 yr old man 1. ESRD- s/p HD yesterday. need to lower weight may need extra dialysis 2. hyperkalemia- RX medically and HD MWF 3. anemia- check iron studies 4 hyperphosphatemia- binders 5. hyponatremia- improved w/ dialysis 6. DM control seen w/ RN- telehealth visit -informed consent for telehealth and Hemodialysis obtained from the pt discussed w/ pt and RN Plan see above Attestations 2 Medical Necessity Statement*: over[place], esrd, hyperkalemia, chf Time Spent in Patient Care: 16 - 35 minutes Coding Level of Care Code Acute Code for Chg Fwd Diagnoses ESRD (end stage renal disease) on dialysis N18.6; Z99.2
[2023-08-17] MEDS: sodium polystyrene sulfonate 15 gm/60 mL Btl 30 GM PO (08:03)
[2023-08-17] MEDS: isosorbide mononitrate ER 30 mg Tablet PO (08:04)
[2023-08-17] MEDS: aspirin 81 mg EC Tablet PO (08:04)
[2023-08-17] MEDS: clopidogrel 75 mg Tablet PO (08:04)
[2023-08-17] MEDS: escitalopram 10 mg Tablet PO (08:04)
[2023-08-17] MEDS: FUROsemide 10 mg/mL SDV 10mL 60 MG IVP (08:04)
[2023-08-17] MEDS: lanolin oint 7 gm 1 APPLIC TOPICAL (08:11)
[2023-08-17] MEDS: epoetin alfa 1000 Unit/0.05 mL (ESRD) 20000 UNIT SUBCUT (08:54)
--- NOTE | 2023-08-17 12:28 | P.PN_ITS ---
Subjective 2 Subjective: This morning patient is hemodynamically stable Still bradycardic we are holding off on metoprolol and amiodarone Potassium improved after dialysis Another session of dialysis planned today No active chest pain he is playing video games on his phone during my interaction with him Patient was able to tell me that he has hiatal hernia which is nonoperable unless there is a significant complication, he has seen 3 different surgeons for his hiatal hernia, it occurred after aortic valve open heart surgery Patient is still not able to give me a straight answer why he is not on any blood thinner despite having diagnosis of A-fib Review of records revealed that patient history of significant GI bleed Chronic anemia He has history of sleep apnea uses 3 L of oxygen [id number] Vitals/I&O/Wt Last Vital Signs Temp 98.5 F 08/17/23 04:00 Pulse 61 08/17/23 10:30 Resp 16 08/17/23 10:22 BP 109/55 08/17/23 10:30 Pulse Ox 96 08/17/23 10:22 O2 Del Method Nasal Cannula 08/17/23 10:22 O2 Flow Rate 3 08/17/23 10:22 08/16/23 08/17/23 08/17/23 22:59 06:59 14:59 Intake Total 220.05 / 220.05 740 / 960.05 240 / 240 Output Total 2989 / 2989 Balance 220.05 / 220.05 -2249 / -2028.95 240 / 240 Weight last 48 hrs Weight 112.491 kg Weight 111.493 kg Weight 111.13 kg Weight 111.13 kg Physical Exam 2 Narrative: Patient is playing video game on his phone at the bedside GCS 15 Nonfocal neuroexam Hemodynamically stable No active chest pain Pleasant and cooperative Patient has hiatal hernia Data 08/17/23 04:39 08/17/23 04:39 A&P Assessment and plan (1) NSTEMI (non-ST elevated myocardial infarction): (2) H/O aortic valve replacement: (3) Acute exacerbation of congestive heart failure: (4) ESRD (end stage renal disease): (5) Acute hyperkalemia: (6) Bradycardia: Plan Non-STEMI Patient on heparin drip Echo unremarkable No active chest pain Hyperkalemia related bradycardia most likely I do not think patient needs any pacemaker evaluation at this point I have discontinued his metoprolol and amiodarone A-fib with slow ventricular response Correction of reversible causes such as hyperkalemia and holding AV eric blocking agent at this point Patient is hemodynamically stable, end-stage renal disease getting dialyzed today as well Appreciate nephro recommendations Full code Monitor 1 more day in the ICU Patient need to finish 48 hours of ACS protocol secondary to leakage of troponin Full code Renal diet Attestations 2 Medical Necessity Statement*: Continue ICU management Diagnoses NSTEMI (non-ST elevated myocardial infarction) I21.4 H/O aortic valve replacement Z95.2 Acute exacerbation of congestive heart failure I50.9 ESRD (end stage renal disease) N18.6 Acute hyperkalemia E87.5 Bradycardia R00.1
--- NOTE | 2023-08-17 14:49 | ECG_ITS ---
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 Measurements Intervals [place] Rate: 58 P: -67 [place]: 190 QRS: -55 QRSD: 142 T: 17 QT: 530 QTc: 521 Interpretive Statements SINUS BRADYCARDIA LEFT AXIS DEVIATION [QRS AXIS < -30] RIGHT BUNDLE BRANCH BLOCK [120+ ms QRS DURATION, UPRIGHT V1, 40+ ms S IN I/aVL/V4/V5/V6] MINIMAL VOLTAGE CRITERIA FOR LVH, CONSIDER NORMAL VARIANT [MEETS CRITERIA IN ONE OF: R(aVL), S(V1), R(V5), R(V5/V6)+S(V1)] Compared to ECG 08/16/2023 23:06:34 Sinus rhythm no longer present Electronically Signed On 08-17-2023 16:19:37 CDT by Shayan Stout M.D. [id number]
[2023-08-17] MEDS: b-complex-vitamin c Tablet 1 EACH PO (20:33)
[2023-08-17] MEDS: ropinirole 2 mg Tablet PO (20:33)
[2023-08-17 20:49] LABS: Glucose Point of Care 204 mg/dL (70-110)
[2023-08-18] VITALS (31 sets, daily range): BP systolic 106–145; BP diastolic 46–103; PULSE 57–71; RESP 15–57; TEMP 36.4–37; O2SAT 94–100; BMI 35.4
[2023-08-18 03:59] LABS: Basophils % 0.9 %; Eosinophils # 0.1 10^3/uL (0.0-0.8); Eosinophils % 1.9 %; Hematocrit 25.4 % (37-53); Lymphocytes # 0.9 10^3/uL (0.8-4.8); Lymphocytes % 20.5 %; Mean Corpuscular HGB Conc 29.9 g/dL (30-55); Mean Corpuscular Hemoglobin 31.4 pg (27-33); Monocytes # 0.5 10^3/uL (0.2-0.9); Monocytes % 12.7 %; Neutrophils # 2.69 10^3/uL (1.8-7.7); Neutrophils % 63.5 %; Nucleated Red Blood Cells % 0 %; Platelet Count 118 10^3/cmm (157-399); Red Blood Count 2.42 10^6/uL (3.85-5.65); Red Cell Distribution Width 17.8 % (12.1-15.1); White Blood Count 4.24 10^3/uL (3.29-11.43)
[2023-08-18 04:20] LABS: Alanine Aminotransferase 28 U/L (0-41); Albumin Level 3.5 g/dL (3.5-5.2); Alkaline Phosphatase 266 U/L (40-130); Aspartate Amino Transferase 43 U/L (0-40); Blood Urea Nitrogen 28 mg/dL (8-23); Calcium 8.8 mg/dL (8.5-10.5); Carbon Dioxide 26 mmol/L (22-29); Chloride 101 mmol/L (98-107); Globulin 2.7 g/dL (1.3-4.6); Glomerular Filtration Rate 17.3 mL/min (90-130); Glucose 127 mg/dL (65-115); Osmolality Calculated 299 mOsm/kg (285-295); Sodium 141 mmol/L (136-145); Total Bilirubin 1.1 mg/dL (0.15-1.2); Total Protein 6.2 g/dL (6.6-8.7)
[2023-08-18 04:22] LABS: Creatinine Clr Calc Pharmacy 26.5823
--- NOTE | 2023-08-18 08:20 | PM.PN ---
Subjective Subjective: seen and examined. has GERD pain. states CP improved. he is in and out of a fib. breathing much better after dialysis x 2. no landa Medications: Reviewed: Yes Medication Review Details: Current Medications Acetaminophen (Acetaminophen 500 Mg Tablet) 500 mg PO Q4H PRN PRN Reason: fever Albuterol/Ipratropium (Ipratropium-Albuterol 3 Ml Neb) 3 ml INHALATION Q6H PRN PRN Reason: SHORTNESS OF BREATH Amiodarone HCl (Amiodarone 200 Mg Tablet) 200 mg PO QPM [facility] Last Admin: 08/16/23 17:05 Dose: 200 mg Aspirin (Aspirin 81 Mg Ec Tablet) 81 mg PO DAILY [facility] Last Admin: 08/17/23 08:04 Dose: 81 mg Clopidogrel Bisulfate (Clopidogrel 75 Mg Tablet) 75 mg PO DAILY [facility] Last Admin: 08/17/23 08:04 Dose: 75 mg Escitalopram Oxalate (Escitalopram 10 Mg Tablet) 10 mg PO DAILY [facility] Last Admin: 08/17/23 08:04 Dose: 10 mg Furosemide (Furosemide 10 Mg/Ml Sdv 10ml) 60 mg IVP Q24H [facility] Last Admin: 08/17/23 08:04 Dose: 60 mg Dextrose (D10w) 125 mls @ 750 mls/hr IV PRN PRN PRN Reason: HYPOGLYCEMIA Dextrose (D10w) 250 mls @ 1,000 mls/hr IV PRN PRN PRN Reason: HYPOGLYCEMIA Isosorbide Mononitrate (Isosorbide Mononitrate Er 30 Mg Tablet) 30 mg PO DAILY [facility] Last Admin: 08/17/23 08:04 Dose: 30 mg Lanolin (Lanolin Oint 7 Gm) 1 applic TOPICAL PRN PRN PRN Reason: DRYNESS Last Admin: 08/17/23 08:11 Dose: 1 applic Multivitamins (N-Fidsrkq-Idmfgpo C Tablet) 1 each PO BEDTIME [facility] Last Admin: 08/17/23 20:33 Dose: 1 each Ondansetron HCl (Ondansetron 2 Mg/Ml Sdv 2 Ml) 4 mg IVP Q6H PRN PRN Reason: NAUSEA AND VOMITING Oxycodone/Acetaminophen (Oxycodone-Apap 5-325 Mg Tablet) 1 tab PO Q4H PRN PRN Reason: Pain Last Admin: 08/17/23 20:42 Dose: 1 tab Ropinirole HCl (Ropinirole 2 Mg Tablet) 2 mg PO BEDTIME [facility] Last Admin: 08/17/23 20:33 Dose: 2 mg Vitals/I&O/Wt Last Vital Signs Temp 97.7 F 08/18/23 04:00 Pulse 61 08/18/23 07:54 Resp 57 H 08/18/23 07:54 BP 123/62 08/18/23 06:00 Pulse Ox 99 08/18/23 07:54 O2 Del Method Nasal Cannula 08/18/23 07:54 O2 Flow Rate 3 08/18/23 07:54 08/17/23 08/18/23 08/18/23 22:59 06:59 14:59 Intake Total 480 / 960 500 / 1460 Output Total 3013 / 3013 Balance 480 / 960 -2513 / -1553 Weight last 48 hrs Weight 108.862 kg Weight 111.992 kg Weight 112.491 kg Weight 111.493 kg Weight 111.13 kg Weight 111.13 kg Physical Exam Narrative: obese, comfortable, NC02 VS noted- HEENT - nc/at, eomi neck supple lungs b/l crackles decreased heart reg,+s1, s2 +LEORA abdomen soft, +BS ext b/l edema decreased but still significant neuro- a,a, o x 3 RT ACW permacath seen w/ RN- telehealth visit Data 08/18/23 03:49 08/18/23 03:49 A&P Assessment and plan (1) ESRD (end stage renal disease) on dialysis: 63 yr old man 1. ESRD- s/p HD x 2. need to lower weight hold dialysis today. repeat tomorrow 2. hyperkalemia- improved 3. anemia- high ferritin. use epo and may need prbc tx 4 hyperphosphatemia- binders 5. DM control seen w/ RN- telehealth visit -informed consent for telehealth and Hemodialysis obtained from the pt discussed w/ pt and RN Plan see above Attestations Medical Necessity Statement*: esrd, a fib bradycardia Time Spent in Patient Care: 16 - 35 minutes Coding Level of Care Code Acute Code for Chg Fwd Diagnoses ESRD (end stage renal disease) on dialysis N18.6; Z99.2
[2023-08-18] MEDS: aspirin 81 mg EC Tablet PO (08:40)
[2023-08-18] MEDS: FUROsemide 10 mg/mL SDV 10mL 60 MG IVP (08:40)
[2023-08-18] MEDS: isosorbide mononitrate ER 30 mg Tablet PO (08:40)
[2023-08-18] MEDS: clopidogrel 75 mg Tablet PO (08:40)
[2023-08-18] MEDS: escitalopram 10 mg Tablet PO (08:40)
--- NOTE | 2023-08-18 09:17 | PC.SOCIAL ---
IMM Update Pg. 2 of IMM updated and reviewed with patient, who verbalized understanding. Copy provided.
--- NOTE | 2023-08-18 11:04 | P.PN_ITS ---
Subjective 2 Subjective: Heart rate is in 60s this morning On telemetry seem like he dipped down to low 30s A-fib with slow ventricular response Will touch base with Dr. Stout to see if pacemaker evaluation is needed however his heart rate is much better today patient is not endorsing any chest discomfort, his pain is coming from hiatal hernia I have also asked him not to take nitroglycerin if his heart rate is low which she was taking at home Vitals/I&O/Wt Last Vital Signs Temp 98.6 F 08/18/23 08:00 Pulse 60 08/18/23 10:00 Resp 17 08/18/23 10:00 BP 106/80 08/18/23 10:00 Pulse Ox 98 08/18/23 10:00 O2 Del Method Nasal Cannula 08/18/23 07:54 O2 Flow Rate 3 08/18/23 07:54 08/17/23 08/18/23 08/18/23 22:59 06:59 14:59 Intake Total 480 / 960 500 / 1460 200 / 200 Output Total 3013 / 3013 Balance 480 / 960 -2513 / -1553 200 / 200 Weight last 48 hrs Weight 108.862 kg Weight 111.992 kg Weight 112.491 kg Weight 111.493 kg Weight 111.13 kg Weight 111.13 kg Physical Exam 2 Narrative: Patient is awake and alert Euvolemic GCS 15 Nonfocal neuroexam Currently on 3 L nasal cannula Hemodynamically stable Heart rate in 60s A-fib Abdomen soft Hiatal hernia swelling epigastric region Data 08/18/23 03:49 08/18/23 03:49 A&P Assessment and plan (1) H/O aortic valve replacement: (2) Moderate to severe mitral regurgitation: (3) NSTEMI (non-ST elevated myocardial infarction): (4) Bradycardia: (5) Diabetes: Qualifiers: Diabetes mellitus type: type 2 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: with half-way use Diabetes mellitus complication status: with diabetic arthropathy Diabetes mellitus complication detail: with other arthropathy Qualified Code(s): E11.618 - Type 2 diabetes mellitus with other diabetic arthropathy; Z79.4 - supervisor intermediates (current) use of insulin (6) ESRD (end stage renal disease): (7) Acute hyperkalemia: (8) COPD (chronic obstructive pulmonary disease): Qualifiers: COPD type: emphysema Emphysema type: centrilobular Qualified Code(s): J43.2 - Centrilobular emphysema Plan Non-STEMI Patient will finish ACS protocol today No active chest pain Patient is complaining of pain around hiatal hernia A-fib with slow ventricular sponsor Concern for junctional rhythm Will call Dr. Madison for pacemaker evaluation however his heart rate has improved since discontinuation of metoprolol succinate and amiodarone, hyperkalemia has been reversed as well, I do not think he will need a pacemaker at this point We will follow-up with cardiology recommendation Patient carries history of aortic valve replacement and mitral valve regurgitation, at this point not in significant fluid overload state End-stage renal disease Wednesday Appreciate nephro recommendations Full code Transfer out of ICU to CSU Likely discharge by tomorrow Full code Renal Attestations 2 Medical Necessity Statement*: Possible discharge tomorrow Diagnoses H/O aortic valve replacement Z95.2 Moderate to severe mitral regurgitation I34.0 NSTEMI (non-ST elevated myocardial infarction) I21.4 Bradycardia R00.1 Type 2 diabetes mellitus with other diabetic arthropathy, with long-term current use of insulin E11.618; Z79.4 Diabetes mellitus type: type 2 Diabetes mellitus 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
--- NOTE | 2023-08-18 12:53 | PC.NURSE ---
received from icu via w/c in to room 107.pt is alert and awake and oriented x 4.denies pain at present.appears to be in sr on monitor.oriented to room environment.instructed to notify staff for any sob,pain,dizziness,or for any concerns at all.pt verb understanding of instructions
[2023-08-18 17:12] LABS: Glucose Point of Care 121 mg/dL (70-110)
--- NOTE | 2023-08-18 17:50 | P.CONIM_ITS ---
Providers/Reason For Consult 2 Consulting Physician/Specialty*: Shayan Stout/ Cardiology Reason for Consult*: Bradycardia Attending Physician: Patito Michael MD Primary Care Provider: Christofer Varghese MD History of Present Illness History of Present Illness Richard Huffman is a 63 year old male with past medical history of atrial fibrillation on metoprolol who was admitted with atypical chest discomfort episodes. He also was bradycardic. His troponin initially was at 335 however is chronically elevated secondary to end-stage renal disease. Trended to 368 at 6 hours. EKG not showing acute ischemic changes. Had atrial fibrillation with slow ventricular response. Recent echo heart showed normal LV systolic function Review of Systems 2 Const: Denies: fever(s), chills, body aches or change in appetite ENMT: Denies: throat pain or dental pain Card: Reports: chest pain Resp: Reports: dyspnea GI: Denies: abdominal pain, nausea, vomiting or diarrhea : Denies: dysuria Musc: Denies: neck pain or back pain Skin/Breast: Denies: rash Neuro: Denies: headache(s) Psych: Denies: depression Medications/Allergies Home Medications Medication Instructions Recorded Confirmed Last Taken Type oxycodone-acetaminophen 5 mg-325 0.5 - 1 tab PO Q4H PRN Pain 07/15/22 08/31/23 08/31/23 History mg tablet cyanocobalamin (vitamin B-12) 1,000 mcg PO DAILY 08/25/22 08/31/23 08/31/23 History 1,000 mcg tablet (Vitamin B-12) tramadol 50 mg tablet 50 mg PO Q6H PRN Pain, Mild 12/29/22 08/31/23 05/02/23 History Cruthes #1 ea 05/11/23 08/31/23 Unknown Rx vit B,C-folic ac 800 mcg-zinc 12.5 1 tab PO BEDTIME 05/15/23 08/31/23 08/30/23 History mg-selen-D3 2,000 unit-vit E tablet (RenaPlex-D) albuterol sulfate 90 mcg/actuation 1 inh inhalation QID PRN shortness 06/01/23 08/31/23 Unknown Rx aerosol inhaler (Ventolin HFA) of breath or wheezing #8.5 grams budesonide 0.5 mg/2 mL suspension 0.5 mg (2 mL) inhalation BID #60 mL 06/01/23 08/31/23 08/31/23 Rx for nebulization budesonide-formoterol HFA 80 2 puff inhalation BID PRN unknown 06/01/23 08/31/23 Unknown Rx mcg-4.5 mcg/actuation aerosol #10.2 grams inhaler (Symbicort) bumetanide 2 mg tablet 2 mg PO BID #180 tabs 06/01/23 08/31/23 08/31/23 Rx escitalopram oxalate 10 mg tablet 10 mg PO QAM #90 tabs 06/01/23 08/31/23 08/31/23 Rx (Lexapro) fluticasone propionate 50 2 spray intranasal DAILY PRN 06/01/23 08/31/23 Unknown Rx mcg/actuation nasal Allergy Symptoms #16 grams spray,suspension ipratropium 0.5 mg-albuterol 3 mg 3 ml inhalation Q6H Shortness Of 06/01/23 08/31/23 08/16/23 Rx (2.5 mg base)/3 mL nebulization Breath #180 mL soln isosorbide mononitrate 30 mg 30 mg PO DAILY #90 tabs 06/01/23 08/31/23 08/31/23 Rx tablet,extended release 24 hr lisinopril 20 mg tablet 20 mg PO BEDTIME #90 tabs 06/01/23 08/31/23 08/30/23 Rx nitroglycerin 2.5 mg 2.5 mg PO DAILY PRN chest 06/01/23 08/31/23 08/27/23 Rx capsule,extended release tightness #30 caps ropinirole 2 mg tablet 2 mg PO BEDTIME #90 tabs 06/01/23 08/31/23 08/30/23 Rx Diabetic shoes #1 ea 06/04/23 08/31/23 Unknown Rx four point rollaid with chair #1 ea 06/04/23 08/31/23 Unknown Rx nebulizer #1 ea 06/04/23 08/31/23 Unknown Rx nebulizer supplies (hose, mask,ect) #1 ea 06/04/23 08/31/23 Unknown Rx oxygen concentrator #1 ea 06/04/23 08/31/23 Unknown Rx shower chair #1 ea 06/04/23 08/31/23 Unknown Rx toiler riser with handles #1 ea 06/04/23 08/31/23 Unknown Rx [place] #1 ea 06/17/23 08/31/23 Unknown Rx acetaminophen 325 mg tablet 650 mg PO Q6H PRN PAIN OR 08/16/23 08/31/23 Unknown History INCREASED TEMP bisacodyl 10 mg rectal suppository See Rx Instructions .Route 08/16/23 08/31/23 Unknown History .COMPLEX PRN Constipation doxycycline hyclate 100 mg capsule 100 mg PO DAILY 08/16/23 08/31/23 08/31/23 History ondansetron HCl 8 mg tablet 8 mg PO Q6H PRN Nausea 08/16/23 08/31/23 08/29/23 History pantoprazole 40 mg tablet,delayed 40 mg PO BEDTIME 08/16/23 08/31/23 08/30/23 History release amiodarone 200 mg tablet 200 mg PO BEDTIME 08/31/23 08/31/23 Unknown History hydralazine 50 mg tablet 50 mg PO BID 08/31/23 08/31/23 08/31/23 History metolazone 5 mg tablet 5 mg PO DAILY 08/31/23 08/31/23 08/31/23 History Allergies Allergy/AdvReac Type Severity Reaction Status Date / Time latex Allergy Mild Blisters Verified 08/24/23 15:34 petrolatum,white Allergy Mild Blisters Verified 08/24/23 15:34 [From A and D Barrier] amlodipine Allergy Unknown Verified 08/24/23 15:34 Current Medications Generic Name Dose Route Start Last Admin Trade Name Srikanth PRN Reason Stop Dose Admin Amiodarone HCl 200 mg 08/16/23 18:00 08/16/23 17:05 Amiodarone 200 Mg Tablet PO 200 mg QPM [facility] Administration Aspirin 81 mg 08/17/23 09:00 08/18/23 08:40 Aspirin 81 Mg Ec Tablet PO 81 mg DAILY [facility] Administration Clopidogrel Bisulfate 75 mg 08/17/23 09:00 08/18/23 08:40 Clopidogrel 75 Mg Tablet PO 75 mg DAILY [facility] Administration Escitalopram Oxalate 10 mg 08/17/23 09:00 08/18/23 08:40 Escitalopram 10 Mg Tablet PO 10 mg DAILY [facility] Administration Furosemide 60 mg 08/17/23 07:45 08/18/23 08:40 Furosemide 10 Mg/Ml Sdv 10ml IVP 60 mg Q24H [facility] Administration Insulin Human Lispro 0 unit 08/18/23 18:00 08/18/23 17:12 Insulin Lispro 100 Unit/1 Ml SUBCUT Not Given WM&BEDTIME [facility] Protocol Isosorbide Mononitrate 30 mg 08/17/23 09:00 08/18/23 08:40 Isosorbide Mononitrate Er 30 Mg Tablet PO 30 mg DAILY [facility] Administration Lanolin 1 applic 08/17/23 08:08 08/17/23 08:11 Lanolin Oint 7 Gm TOPICAL 1 applic PRN PRN Administration DRYNESS Multivitamins 1 each 08/16/23 21:00 08/17/23 20:33 L-Jysdymk-Ehkanjf C Tablet PO 1 each BEDTIME [facility] Administration Oxycodone/Acetaminophen 1 tab 08/16/23 15:42 08/17/23 20:42 Oxycodone-Apap 5-325 Mg Tablet PO 1 tab Q4H PRN Administration Pain Ropinirole HCl 2 mg 08/16/23 21:00 08/17/23 20:33 Ropinirole 2 Mg Tablet PO 2 mg BEDTIME [facility] Administration PFSH Acute 2 PFSH: Medical History (Updated 08/31/23 @ 20:46 by Lilia Downing MD) ESRD (end stage renal disease) Acute exacerbation of congestive heart failure Bradycardia Hyperkalemia ESRD (end stage renal disease) on dialysis Acute hyperkalemia NSTEMI (non-ST elevated myocardial infarction) Chest pain Atrial fibrillation Moderate to severe mitral regurgitation Chronic pain Chronic GI bleeding Hiatal hernia High risk medication use Chronic anemia COPD (chronic obstructive pulmonary disease) Severe tobacco use disorder ESRD on hemodialysis History of renal dialysis Chronic kidney disease 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 Intermittent palpitations Hyperlipidemia Hypertension XI (obstructive sleep apnea) DJD (degenerative joint disease) Atrial flutter PVD (peripheral vascular disease) Diabetes Surgical History 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 H/O aortic valve replacement with tissue graft H/O aortic valve replacement H/O foot surgery Family History Grandmother Diabetes Grandfather Diabetes Denies family history of CAD (coronary artery disease) Clotting disorder Dementia Chronic kidney disease (CKD) Suicide Anesthesia complication Bleeding disorder Lung disease Cancer Stroke Social History Smoking and tobacco/nicotine status: former use of tobacco/nicotine Alcohol intake: never Substance/Drug Use: never Lives independently: Yes (with girlfriend) Household members: significant other Marital status: Single service: No 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al status: disabled 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 Pets and animals: Yes Special araceli needs: No Agree to transfusion: Yes Vitals/I&O/Wt Last Vital Signs Temp 98.3 F 08/18/23 16:00 Pulse 66 08/18/23 16:00 Resp 27 H 08/18/23 16:00 BP 129/62 08/18/23 16:00 Pulse Ox 97 08/18/23 16:00 O2 Del Method Nasal Cannula 08/18/23 16:00 O2 Flow Rate 3 08/18/23 07:54 08/18/23 08/18/23 08/18/23 06:59 14:59 22:59 Intake Total 500 / 1460 560 / 560 Output Total 3013 / 3013 Balance -2513 / -1553 560 / 560 Weight last 48 hrs Weight 240 lb Weight 246 lb 14.4 oz Weight 248 lb Weight 245 lb 12.8 oz Physical Exam 2 Narrative: GENERAL: Patient is alert, awake and oriented x3. [] NECK: No jugular vein distension. [] HEENT: No cyanosis. No icterus. No pallor. [] HEART: Irregularly irregular LUNGS: Clear to auscultate bilaterally. [] CENTRAL NERVOUS SYSTEM: Grossly nonfocal. [] EXTREMITIES: Lower extremities with 1+ edema bilaterally Data 08/19/23 03:19 08/19/23 03:19 A&P Assessment and plan (1) Atrial fibrillation with slow ventricular response: (2) Hyperlipidemia: Qualifiers: Hyperlipidemia type: mixed hyperlipidemia Qualified Code(s): E78.2 - Mixed hyperlipidemia (3) Elevated troponin: Plan Hold amiodarone and metoprolol. Rhythm consistent with A-fib with slow ventricular response. At time of discharge we will recommend event monitor to assess need for pacemaker in future. Troponin elevation likely secondary to demand ischemia. Thank you for involving us with care of the patient. Will continue to follow. Please call with questions. Consult Attestations 2 Medical Necessity Statement: Care expected to cross 2 midnights. Coding Level of Care Code Acute Code for Chg Fwd Diagnoses Atrial fibrillation with slow ventricular response I48.91 Mixed hyperlipidemia E78.2 Hyperlipidemia type: mixed hyperlipidemia Elevated troponin R79.89
[2023-08-18] MEDS: b-complex-vitamin c Tablet 1 EACH PO (21:06)
[2023-08-18] MEDS: ropinirole 2 mg Tablet PO (21:06)
[2023-08-18 21:16] LABS: Glucose Point of Care 134 mg/dL (70-110)
[2023-08-18] MEDS: oxyCODONE-APAP 5-325 mg Tablet 1 TAB PO (21:19)
[2023-08-19] VITALS (10 sets, daily range): BP systolic 125–139; BP diastolic 45–73; PULSE 64–76; RESP 14–20; TEMP 36.1–36.6; O2SAT 90–98; BMI 35.4
[2023-08-19 04:29] LABS: Basophils % 0.9 %; Eosinophils # 0.1 10^3/uL (0.0-0.8); Eosinophils % 2.6 %; Hematocrit 26.6 % (37-53); Lymphocytes % 22.6 %; Mean Corpuscular HGB Conc 28.6 g/dL (30-55); Mean Corpuscular Hemoglobin 31.7 pg (27-33); Mean Corpuscular Volume 110.8 fl (82-101); Mean Platelet Volume 10.2 fL (7.4-10.4); Monocytes # 0.6 10^3/uL (0.2-0.9); Monocytes % 13.2 %; Neutrophils # 2.57 10^3/uL (1.8-7.7); Neutrophils % 60.5 %; Nucleated Red Blood Cells % 0 %; Platelet Count 127 10^3/cmm (157-399); Red Cell Distribution Width 18.3 % (12.1-15.1); White Blood Count 4.25 10^3/uL (3.29-11.43)
[2023-08-19 04:52] LABS: Alanine Aminotransferase 29 U/L (0-41); Albumin Level 3.6 g/dL (3.5-5.2); Alkaline Phosphatase 289 U/L (40-130); Anion Gap 19.5 (5-19); Aspartate Amino Transferase 39 U/L (0-40); Blood Urea Nitrogen 41 mg/dL (8-23); Calcium 9.1 mg/dL (8.5-10.5); Carbon Dioxide 26 mmol/L (22-29); Chloride 98 mmol/L (98-107); Globulin 2.8 g/dL (1.3-4.6); Glomerular Filtration Rate 11.6 mL/min (90-130); Glucose 120 mg/dL (65-115); Osmolality Calculated 299 mOsm/kg (285-295); Potassium 4.5 mmol/L (3.5-5.1); Sodium 139 mmol/L (136-145); Total Bilirubin 1.1 mg/dL (0.15-1.2); Total Protein 6.4 g/dL (6.6-8.7)
[2023-08-19 04:53] LABS: Creatinine Clr Calc Pharmacy 18.4946
[2023-08-19 06:48] LABS: Glucose Point of Care 114 mg/dL (70-110)
--- NOTE | 2023-08-19 07:35 | P.PN_ITS ---
Subjective 2 Subjective: feels better. has back pain. no n/v/f/c/landa/d/leg apins Medications: Reviewed: Yes Medication Review Details: Current Medications Acetaminophen (Acetaminophen 500 Mg Tablet) 500 mg PO Q4H PRN PRN Reason: fever Albuterol/Ipratropium (Ipratropium-Albuterol 3 Ml Neb) 3 ml INHALATION Q6H PRN PRN Reason: SHORTNESS OF BREATH Amiodarone HCl (Amiodarone 200 Mg Tablet) 200 mg PO QPM [facility] Last Admin: 08/16/23 17:05 Dose: 200 mg Aspirin (Aspirin 81 Mg Ec Tablet) 81 mg PO DAILY [facility] Last Admin: 08/18/23 08:40 Dose: 81 mg Clopidogrel Bisulfate (Clopidogrel 75 Mg Tablet) 75 mg PO DAILY [facility] Last Admin: 08/18/23 08:40 Dose: 75 mg Epoetin Tyrel (Epoetin Tyrel 10,000 Unit/Ml Inj) 10,000 unit SUBCUT DIALYSIS [facility] Escitalopram Oxalate (Escitalopram 10 Mg Tablet) 10 mg PO DAILY [facility] Last Admin: 08/18/23 08:40 Dose: 10 mg Furosemide (Furosemide 10 Mg/Ml Sdv 10ml) 60 mg IVP Q24H [facility] Last Admin: 08/18/23 08:40 Dose: 60 mg Glucagon (Glucagon 1 Mg/Ml Kit 1 Ml) 1 mg IM ONCE PRN; Protocol PRN Reason: Adult Acute Hypoglycemia Nursing Prot. Dextrose (D10w) 125 mls @ 750 mls/hr IV PRN PRN PRN Reason: HYPOGLYCEMIA Dextrose (D10w) 250 mls @ 1,000 mls/hr IV PRN PRN PRN Reason: HYPOGLYCEMIA Albumin Human (Albumin) 12.5 gm in 50 mls @ 60 mls/hr IV PRN PRN PRN Reason: Hypotension and/or symptomatic Dextrose (D5w) 500 mls @ 0 mls/hr IV ONCE PRN; Protocol PRN Reason: Adult Acute Hypoglycemia Prot Insulin Human Lispro (Insulin Lispro 100 Unit/1 Ml) 0 unit SUBCUT WM&BEDTIME [facility]; Protocol Last Admin: 08/18/23 21:14 Dose: Not Given Isosorbide Mononitrate (Isosorbide Mononitrate Er 30 Mg Tablet) 30 mg PO DAILY [facility] Last Admin: 08/18/23 08:40 Dose: 30 mg Lanolin (Lanolin Oint 7 Gm) 1 applic TOPICAL PRN PRN PRN Reason: DRYNESS Last Admin: 08/17/23 08:11 Dose: 1 applic Multivitamins (N-Lrmsykg-Lremler C Tablet) 1 each PO BEDTIME [facility] Last Admin: 08/18/23 21:06 Dose: 1 each Ondansetron HCl (Ondansetron 2 Mg/Ml Sdv 2 Ml) 4 mg IVP Q6H PRN PRN Reason: NAUSEA AND VOMITING Oxycodone/Acetaminophen (Oxycodone-Apap 5-325 Mg Tablet) 1 tab PO Q4H PRN PRN Reason: Pain Last Admin: 08/18/23 21:19 Dose: 1 tab Ropinirole HCl (Ropinirole 2 Mg Tablet) 2 mg PO BEDTIME [facility] Last Admin: 08/18/23 21:06 Dose: 2 mg Vitals/I&O/Wt Last Vital Signs Temp 98.0 F 08/18/23 21:38 Pulse 65 08/19/23 06:00 Resp 20 H 08/19/23 05:48 BP 125/73 08/19/23 05:48 Pulse Ox 96 08/19/23 00:44 O2 Del Method Room Air 08/18/23 21:38 O2 Flow Rate 3 08/18/23 07:54 08/18/23 08/19/23 08/19/23 22:59 06:59 14:59 Intake Total 240 / 800 Balance 240 / 800 Weight last 48 hrs Weight 108.862 kg Weight 108.862 kg Weight 111.992 kg Physical Exam 2 Narrative: obese, comfortable, NC02 VS noted- HEENT - nc/at, eomi neck supple lungs b/l clear heart reg,+s1, s2 +LEORA abdomen soft, +BS ext b/l edema 2+ neuro- a,a, o x 3 RT ACW permacath seen w/ RN- telehealth visit Data 08/19/23 03:19 08/19/23 03:19 A&P Assessment and plan (1) ESRD (end stage renal disease) on dialysis: 63 yr old man 1. ESRD- s/p HD x 2. need to lower weight hd today- lower weight as tolerated 2. hyperkalemia- improved 3. anemia- high ferritin. use epo and may need prbc tx 4 hyperphosphatemia- binders 5. DM control 6. back pain seen w/ RN- telehealth visit -informed consent for telehealth and Hemodialysis obtained from the pt discussed w/ pt and RN Plan see above Attestations 2 Medical Necessity Statement*: esrd, hypervolemia Time Spent in Patient Care: 16 - 35 minutes Coding Level of Care Code Acute Code for Chg Fwd Diagnoses ESRD (end stage renal disease) on dialysis N18.6; Z99.2
[2023-08-19 07:38] LABS: SARS Covid-2 Antigen negative (Negative)
--- NOTE | 2023-08-19 09:12 | P.DS_ITS ---
Discharge Providers Date of Admission: 08/16/23 15:42 Date of Discharge: August 19, 2023 Attending Provider at Admission: Heidy Ramos MD Attending Provider at Discharge: Patito Michael MD Primary Care Provider: Christofer Varghese MD Diagnoses at Discharge Discharge Diagnosis (1) ESRD (end stage renal disease) on dialysis: Status: Acute Reason for Visit Reason for Visit: palpitations Hospital Course Hospital Course 63-year male who was admitted for management evaluation of chest discomfort, he was diagnosed with non-STEMI, he was hyperkalemic developed significant QT prolongation and bradycardia, he was transferred to the ICU, nephro was consulted on stat basis, patient symptoms improved after dialysis, he was monitored in the ICU for more than 24 hours, his metoprolol and amiodarone were discontinued, EKG showed A-fib with slow ventricular response, cardiology did not agree with junctional rhythm, no need of pacemaker, at the time of discharge patient get an event monitor we have decided to hold off on amiodarone and metoprolol, patient has history of hiatal hernia which she developed after open aortic valve surgery, there is no sign of obstruction, his pain is most likely coming from his hiatal hernia. He is tolerating diet no regurgitation of food noticed. Patient will be discharged after his dialysis on 08/18. Patient is not a candidate for anticoagulation because of history of GI bleed, uses 2 to 3 L of oxygen at baseline, has chronic anemia, Physical Exam Narrative: Patient is playing video game on his phone at the bedside GCS 15 Nonfocal neuroexam Hemodynamically stable No active chest pain Pleasant and cooperative Patient has hiatal hernia Discharge Data Studies Completed and Pending Completed Studies During Hospitalization Category Date Time Status XR chest 1V portable [id number] Stat Exams 08/16/23 12:40 Completed CV. echo limited [id number] Stat Ultrasound 08/16/23 13:58 Completed Radiology Impressions Chest X-Ray 08/16/23 12:40 IMPRESSION: 1. Small right pleural effusion. 2. Cardiomegaly. Laboratory Results WBC 4.25 10^3/uL (3.29-11.43) 08/19/23 03:19 RBC 2.40 10^6/uL (3.85-5.65) L 08/19/23 03:19 Hgb 7.60 g/dL (11.27-16.99) L 08/19/23 03:19 Hct 26.6 % (37-53) L 08/19/23 03:19 MCV 110.8 fl (82-101) H D 08/19/23 03:19 MCH 31.7 pg (27-33) 08/19/23 03:19 MCHC 28.6 g/dL (30-55) L 08/19/23 03:19 RDW 18.3 % (12.1-15.1) H 08/19/23 03:19 Plt Count 127 10^3/cmm (157-399) L 08/19/23 03:19 MPV 10.2 fL (7.4-10.4) 08/19/23 03:19 Neut % (Auto) 60.5 % 08/19/23 03:19 Lymph % (Auto) 22.6 % 08/19/23 03:19 [place] % (Auto) 13.2 % 08/19/23 03:19 Eos % (Auto) 2.6 % 08/19/23 03:19 Baso % (Auto) 0.9 % 08/19/23 03:19 Neut # (Auto) 2.57 10^3/uL (1.8-7.7) 08/19/23 03:19 Lymph # (Auto) 1.0 10^3/uL (0.8-4.8) 08/19/23 03:19 [place] # (Auto) 0.6 10^3/uL (0.2-0.9) 08/19/23 03:19 Eos # (Auto) 0.1 10^3/uL (0.0-0.8) 08/19/23 03:19 Baso # (Auto) 0.0 10^3/uL (0.0-0.1) 08/19/23 03:19 Nucleated RBC % (auto) 0 % 08/19/23 03:19 Nucleated RBCs # 0.0 /100WBC 08/19/23 03:19 APTT 62.2 SECONDS (23.9-36.7) H 08/16/23 22:50 Specimen Type Arterial 08/16/23 20:05 Sample Site Radial, right 08/16/23 20:05 ABG pH 7.41 (7.35-7.45) 08/16/23 20:05 ABG pCO2 34.4 mmHg (35-45) L 08/16/23 20:05 ABG pO2 169.0 mmHg (80.0-100.0) H 08/16/23 20:05 ABG HCO3 21.7 mmol/L (22-26) L 08/16/23 20:05 ABG O2 Saturation > 100.0 08/16/23 20:05 ABG Base Excess -2.6 mmol/L (-2.0-2.0) L 08/16/23 20:05 Kash Test Pos 08/16/23 20:05 A-a O2 Gradient Not Reportable 08/16/23 20:05 Hematocrit 26.9 % (42-52) L 08/16/23 20:05 Hgb O2 Saturation 97.6 % (95-100) 08/16/23 20:05 Carboxyhemoglobin 2.6 %THgb (0.4-20.1) 08/16/23 20:05 Methemoglobin 0.6 % (0.4-1.5) 08/16/23 20:05 Total Hemoglobin 8.8 g/dL (14-18) L 08/16/23 20:05 Sodium 132.0 mmol/L (131-143) 08/16/23 20:05 Potassium 5.9 mmol/L (3.5-5.0) H 08/16/23 20:05 Glucose 149.0 mg/dL (70-115) H 08/16/23 20:05 Ionized Calcium 1.2 mmol/L (1.1-1.4) 08/16/23 20:05 O2 Delivery Device Cont neb 08/16/23 20:05 O2 Liters/Min 8.0 % 08/16/23 20:05 Neonatal Critical Care Nurse ID Gurpreet 08/16/23 20:05 Sodium 139 mmol/L (136-145) 08/19/23 03:19 Potassium 4.5 mmol/L (3.5-5.1) 08/19/23 03:19 Chloride 98 mmol/L (98-107) 08/19/23 03:19 Carbon Dioxide 26 mmol/L (22-29) 08/19/23 03:19 Anion Gap 19.5 (5-19) H 08/19/23 03:19 BUN 41 mg/dL (8-23) H 08/19/23 03:19 Creatinine 5.1 mg/dL (0.7-1.2) H 08/19/23 03:19 GFR Calculation 11.6 mL/min (90-130) L 08/19/23 03:19 Glucose 120 mg/dL (65-115) H 08/19/23 03:19 POC Glucose 114 mg/dL (70-110) H 08/19/23 06:41 Calculated Osmolality 299 mOsm/kg (285-295) H 08/19/23 03:19 Uric Acid 6.9 mg/dL (3.4-7.0) 08/16/23 18:25 Calcium 9.1 mg/dL (8.5-10.5) 08/19/23 03:19 Phosphorus 6.3 mg/dL (2.5-4.5) H 08/17/23 04:39 Magnesium 2.1 mg/dL (1.7-2.3) 08/17/23 04:39 Iron 68 ug/dL (59-158) 08/17/23 04:39 TIBC 202 mcg/dl 08/17/23 04:39 % Saturation 33.6 % (20-50) 08/17/23 04:39 Unsat Iron Binding 134 ug/dL (112-347) 08/17/23 04:39 Ferritin 2807 ng/mL (30-400) H 08/17/23 04:39 Total Bilirubin 1.1 mg/dL (0.15-1.2) 08/19/23 03:19 AST 39 U/L (0-40) 08/19/23 03:19 ALT 29 U/L (0-41) 08/19/23 03:19 Alkaline Phosphatase 289 U/L (40-130) H 08/19/23 03:19 Troponin T Baseline 335 ng/L (0-15) H* 08/16/23 12:41 Troponin T 120 Minute 336.6 ng/L (0-15) H 08/16/23 15:14 Delta Troponin T 1.6 ABS# (0-10) 08/16/23 15:14 Troponin T Hi Sens 6Hr 368.6 ng/L (0-15) H 08/16/23 18:25 Troponin T Hi Sens 6Hr Delta 33.6 ng/L (0-12) H* 08/16/23 18:25 C-Reactive Protein 97.7 mg/L (0.0-4.9) H 08/17/23 04:39 NT-Pro-B Natriuret Pep 92524 pg/mL (0-125) H 08/16/23 12:41 Total Protein 6.4 g/dL (6.6-8.7) L 08/19/23 03:19 Albumin 3.6 g/dL (3.5-5.2) 08/19/23 03:19 Globulin 2.8 g/dL (1.3-4.6) 08/19/23 03:19 25-OH Vitamin D Total 47 ng/mL (30-100) 08/17/23 04:39 PTH Intact 137.8 pg/mL (15-65) H 08/17/23 04:39 Calcium (PTH Intact) 8.6 mg/dL (8.5-10.5) 08/17/23 04:39 Hep Bs Antigen Non-reactive (Nonreactive) 08/16/23 12:41 Hep Bs Antibody 213.6 (11.5-1000) 08/16/23 12:41 Hepatitis C Antibody Non-reactive (Nonreactive) 08/16/23 12:41 SARS-CoV-2 Ag (Rapid) negative (Negative) 08/19/23 06:30 Vitals Last Vital Signs Temp 97.8 F 08/19/23 07:53 Pulse 64 08/19/23 09:06 Resp 18 08/19/23 09:06 BP 128/68 08/19/23 07:53 Pulse Ox 98 08/19/23 09:06 O2 Del Method Oxymask 08/19/23 09:06 O2 Flow Rate 3 08/19/23 09:06 Discharge Plan Discharge Patient Disposition: Home Condition: Stable Prescriptions: Continued hydralazine 50 mg tablet 50 mg PO BID tramadol 50 mg tablet 50 mg PO Q6H PRN (Reason: Pain, Mild) albuterol sulfate [Ventolin HFA] 90 mcg/actuation HFA aerosol inhaler 1 inh inhalation QID PRN (Reason: shortness of breath or wheezing) Qty: 8.5 3RF budesonide 0.5 mg/2 mL suspension for nebulization 0.5 mg inhalation BID Qty: 60 3RF budesonide-formoterol [Symbicort] 80-4.5 mcg/actuation HFA aerosol inhaler 2 puff INHALATION BID PRN (Reason: unknown) Qty: 10.2 2RF bumetanide 2 mg tablet 2 mg PO BID Qty: 180 1RF Lexapro 10 mg tablet 10 mg PO QAM Qty: 90 1RF ipratropium-albuterol 0.5 mg-3 mg(2.5 mg base)/3 mL solution for nebulization 3 ml INHALATION Q6H Qty: 180 3RF ropinirole 2 mg tablet 2 mg PO BEDTIME Qty: 90 1RF nitroglycerin 2.5 mg capsule, extended release 2.5 mg PO DAILY PRN (Reason: chest tightness) Qty: 30 0RF metolazone 5 mg tablet 5 mg PO QAM Qty: 90 2RF isosorbide mononitrate 30 mg tablet extended release 24 hr 30 mg PO DAILY Qty: 90 1RF lisinopril 20 mg tablet 20 mg PO BEDTIME Qty: 90 1RF fluticasone propionate 50 mcg/actuation spray,suspension 2 spray intranasal DAILY PRN (Reason: Allergy Symptoms) Qty: 16 1RF (DME) Diabetic shoes See Rx Instructions .ROUTE .MEDSUPPLY Qty: 1 0RF Rx Instructions: With 3 pairs of inserts to the shoe guys (DME) four point rollaid with chair See Rx Instructions .Route .MEDSUPPLY Qty: 1 0RF Rx Instructions: As directed ([facility]) nebulizer See Rx Instructions .Route .MEDSUPPLY Qty: 1 0RF Rx Instructions: As directed ([facility]) nebulizer supplies (hose, mask,ect) See Rx Instructions .Route .MEDSUPPLY Qty: 1 1RF Rx Instructions: As directed ([facility]) oxygen concentrator See Rx Instructions .Route .MEDSUPPLY Qty: 1 0RF Rx Instructions: As directed ([facility]) shower chair See Rx Instructions .Route .MEDSUPPLY Qty: 1 1RF Rx Instructions: As directed ([facility]) toiler riser with handles See Rx Instructions .Route .MEDSUPPLY Qty: 1 0RF Rx Instructions: As directed ([facility]) [place] See Rx Instructions .Route .MEDSUPPLY Qty: 1 0RF Rx Instructions: As directed ([facility]) Crutches See Rx Instructions .Route .MEDSUPPLY Qty: 1 0RF Rx Instructions: As directed HOME acetaminophen 325 mg Tablet 650 mg PO Q6H PRN (Reason: PAIN OR INCREASED TEMP) doxycycline hyclate 100 mg capsule 100 mg PO DAILY ondansetron HCl 8 mg tablet 8 mg PO Q6H PRN (Reason: Nausea) bisacodyl 10 mg Suppository See Rx Instructions .ROUTE .COMPLEX PRN (Reason: Constipation) Rx Instructions: INSERT 1 SUPPOSITORY RECTALLY ONCE DAILY NEEDED IF CAN'T TAKE BY MOUTH AND NO BOWEL MOVEMENT IN 3 DAYS. pantoprazole 40 mg tablet,delayed release (DR/EC) 40 mg PO BEDTIME oxycodone-acetaminophen 5-325 mg tablet 0.5 - 1 tab PO Q4H PRN (Reason: Pain) cyanocobalamin (vitamin B-12) [Vitamin B-12] 1,000 mcg tablet 1,000 mcg PO DAILY RenaPlex-D 800 mcg-12.5 mg -2,000 unit tablet 1 tab PO BEDTIME Discontinued metoprolol succinate 50 mg tablet extended release 24 hr 50 mg PO BID Qty: 180 1RF amiodarone 200 mg tablet 200 mg PO BEDTIME Discharge Orders: Discharge Order (Routine); Ordered 08/19/23 Ordered By: Patito Michael Other Ambulatory Orders: MCT/Event Monitor 21 Days (Routine) Timeframe: 3 Weeks Facility: [facility] - Location: Radiology Ordered By: Patito Michael Referrals: Christofer Varghese MD [Primary Care Provider] - Shayan Stout M.D [Physician] - 1 month Discharge Diet: Cardiac Discharge Activity: Increase activity as tolerated Patient Instructions: Heart Failure (DC), Dialysis Diet (DC), Hemodialysis (DC), CHF Stoplight, Opioid Safety, Post Heart Attack Stoplight Discharge Attestations Time Spent in Discharge Care*: greater than 30 min Status at Discharge: Cognitive status at discharge: cognitively intact , Behavioral status at discharge: cooperative , Quality Metrics Clinical Quality Measures [ No reported AMI, CVA or VTE this stay] Coding Level of Care Code Acute Code for Chg Fwd Diagnoses ESRD (end stage renal disease) on dialysis N18.6; Z99.2
--- NOTE | 2023-08-19 09:17 | PC.NURSE ---
Patient left [facility] to dialysis at 0915.
--- NOTE | 2023-08-19 09:34 | P.PN_ITS ---
Subjective 2 Subjective: Patient doing well. No chest pain Vitals/I&O/Wt Last Vital Signs Temp 97.8 F 08/19/23 07:53 Pulse 64 08/19/23 09:06 Resp 18 08/19/23 09:06 BP 128/68 08/19/23 07:53 Pulse Ox 98 08/19/23 09:06 O2 Del Method Oxymask 08/19/23 09:06 O2 Flow Rate 3 08/19/23 09:06 08/18/23 08/19/23 08/19/23 22:59 06:59 14:59 Intake Total 240 / 800 240 / 240 Balance 240 / 800 240 / 240 Weight last 48 hrs Weight 240 lb Weight 240 lb Weight 246 lb 14.4 oz Physical Exam 2 Narrative: GENERAL: Patient is alert, awake and oriented x3. [] NECK: No jugular vein distension. [] HEENT: No cyanosis. No icterus. No pallor. [] HEART: Irregularly irregular LUNGS: Clear to auscultate bilaterally. [] CENTRAL NERVOUS SYSTEM: Grossly nonfocal. [] EXTREMITIES: Lower extremities with 1+ edema bilaterally Data 08/19/23 03:19 08/19/23 03:19 A&P Assessment and plan (1) Atrial fibrillation with slow ventricular response: (2) Hyperlipidemia: Qualifiers: Hyperlipidemia type: mixed hyperlipidemia Qualified Code(s): E78.2 - Mixed hyperlipidemia (3) Elevated troponin: Plan Heart rate has improved. Can be discharged off of amiodarone and metoprolol on event monitor. Patient may need pacemaker secondary to sick sinus syndrome Thank you for involving us with care of the patient. Please call with questions. Attestations 2 Medical Necessity Statement*: Care expected to cross 2 midnights. Coding Level of Care Code Acute Code for [facility] Fwd Diagnoses Atrial fibrillation with slow ventricular response I48.91 Mixed hyperlipidemia E78.2 Hyperlipidemia type: mixed hyperlipidemia Elevated troponin R79.89
--- NOTE | 2023-08-19 09:37 | PC.HD ---
Per forensic science technician's orders, heparin 1000 units loading dose administered via venous port of HD catheter at 0920.
--- NOTE | 2023-08-19 12:51 | PC.NURSE ---
Patient returned from dialysis to [facility] at 1245.
[2023-08-19 13:02] LABS: Glucose Point of Care 95 mg/dL (70-110)
--- NOTE | 2023-08-19 13:10 | PC.NURSE ---
Called report to Sharon at [facility]. [facility] is providing transportation for patient.
== END 2023-08-19 13:35 | disposition skilled nursing facility (03) | DRG 308 ==
LOC: ER 12:52 → CSU 14:03 → ICU 08-17 06:58 → CSU 08-18 12:24
PROVIDERS: Internal Medicine; Internal Medicine Nephrology; Admitting Provider Internal Medicine; Emergency Provider Emergency Medicine; PCP Family Medicine; Visit Provider Internal Medicine
DX: I48.91 Unspecified atrial fibrillation (principal); N18.6 End stage renal disease; I13.2 Hypertensive heart and chronic kidney disease with heart failure and with stage 5 chronic kidney disease, or end stage renal disease; E87.1 Hypo-osmolality and hyponatremia; E87.5 Hyperkalemia; I50.9 Heart failure, unspecified; E11.22 Type 2 diabetes mellitus with diabetic chronic kidney disease; D63.1 Anemia in chronic kidney disease; Z99.2 Dependence on renal dialysis; Z87.891 Personal history of nicotine dependence; E83.39 Other disorders of phosphorus metabolism; Z95.4 Presence of other heart-valve replacement; J44.9 Chronic obstructive pulmonary disease, unspecified; E78.5 Hyperlipidemia, unspecified; Z99.81 Dependence on supplemental oxygen; K44.9 Diaphragmatic hernia without obstruction or gangrene; I73.9 Peripheral vascular disease, unspecified; Z79.82 Long term (current) use of aspirin; Z79.02 Long term (current) use of antithrombotics/antiplatelets; Z79.4 Long term (current) use of insulin; G47.30 Sleep apnea, unspecified; I49.5 Sick sinus syndrome; G25.81 Restless legs syndrome; G89.29 Other chronic pain; M19.90 Unspecified osteoarthritis, unspecified site
CPT/HCPCS: 36415; 36416; 71045; 80048; 80051; 80053; 80069; 82306; 82310; 82330; 82728; 82805; 82962; 83540; 83550; 83735; 83880; 83970; 84100; 84484; 84550; 85025; 85730; 86140; 86706; 86803; 87340; 87426; 90935; 93005; 93308; 94640; 96365; 96366; 96372; 96374; 96375; 96376; 97116; 97161; 97165; 99285; J0612; J1644; J1815; J1940; J7613; Q3014; Q4081

== ENCOUNTER → 2023-08-24 13:55 | Outpatient (BNVA) | payer MEDICARE, SELFPAY | PROVIDERS: PCP Family Medicine; Visit Provider Internal Medicine Pulmonary Disease | DX: R06.02 Shortness of breath (principal); R91.1 Solitary pulmonary nodule; F17.200 Nicotine dependence, unspecified, uncomplicated; K42.9 Umbilical hernia without obstruction or gangrene | CPT/HCPCS: 99214 ==

== ENCOUNTER → 2023-08-24 15:12 | Outpatient (BNVA) | payer MEDICARE, SELFPAY | PROVIDERS: PCP Family Medicine; Referring Provider Internal Medicine; Visit Provider Internal Medicine | DX: I48.91 Unspecified atrial fibrillation (principal) | CPT/HCPCS: 93270 ==

== ENCOUNTER 2023-08-31 12:01 | Inpatient (IN) | payer MEDICARE, SELFPAY ==
[2023-08-31] VITALS (19 sets, daily range): BP systolic 96–125; BP diastolic 59–76; PULSE 106–113; RESP 8–32; TEMP 36.5–36.9; O2SAT 95–99; BMI 29.2
--- NOTE | 2023-08-31 12:22 | XRR_ITS ---
PROCEDURE INFORMATION: Exam: XR Chest Exam date and time: 08/31/2023 12:29 PM Age: 63 years old Clinical indication: Cough and dyspnea; Additional info: Dyspnea/cough TECHNIQUE: Imaging protocol: Radiologic exam of the chest. Views: 1 view. COMPARISON: CR XR chest 1V portable [id number] 08/16/2023 12:42 PM FINDINGS: Tubes, catheters and devices: Dialysis catheter enters from the right and terminates in the right atrium. Lungs: Hazy density at each lung base, right greater than left is predominantly hypoventilatory. Pleural spaces: Unremarkable. No pleural effusion. No pneumothorax. Heart/Mediastinum: Mild cardiomegaly accentuated by the AP positioning. Bones/joints: Status post median sternotomy. XR/XR chest 1V portable [id number] IMPRESSION: Hypoventilatory changes.
--- NOTE | 2023-08-31 12:22 | ECG_ITS ---
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 Measurements Intervals [place] Rate: 111 P: 0 [place]: 0 QRS: -55 QRSD: 160 T: 127 QT: 364 QTc: 497 Interpretive Statements ATRIAL FLUTTER/TACHYCARDIA WITH RAPID VENTRICULAR RESPONSE versus sinus tachycardia RIGHT BUNDLE BRANCH BLOCK [120+ ms QRS DURATION, UPRIGHT V1, 40+ ms S IN I/aVL/V4/V5/V6] LEFT ANTERIOR FASCICULAR BLOCK [QRS AXIS <= -45, QR IN I, RS IN II] LEFT VENTRICULAR HYPERTROPHY AND ST-T CHANGE [VOLTAGE CRITERIA PLUS ST/T ABNORMALITY] POSSIBLE ANTERIOR MYOCARDIAL INFARCTION , PROBABLY OLD [30 ms Q WAVE IN V3/V4, OR R < 0.2 mV IN V4] Compared to ECG 08/17/2023 14:54:30 Left anterior fascicular block now present ST (T wave) deviation now present Myocardial infarct finding now present Sinus bradycardia no longer present Electronically Signed On 09-03-2023 13:23:24 CDT by Adria Tian M.D. [email or web address]
[2023-08-31 12:50] LABS: Basophils % 0.8 %; Eosinophils # 0.1 10^3/uL (0.0-0.8); Eosinophils % 1.5 %; Hematocrit 26.1 % (37-53); Lymphocytes # 0.8 10^3/uL (0.8-4.8); Lymphocytes % 15.7 %; Mean Corpuscular HGB Conc 30.3 g/dL (30-55); Mean Corpuscular Volume 105.7 fl (82-101); Mean Platelet Volume 10.2 fL (7.4-10.4); Monocytes # 0.7 10^3/uL (0.2-0.9); Monocytes % 13.7 %; Neutrophils # 3.52 10^3/uL (1.8-7.7); Neutrophils % 68.1 %; Nucleated Red Blood Cells % 0 %; Platelet Count 130 10^3/cmm (157-399); Red Blood Count 2.47 10^6/uL (3.85-5.65); Red Cell Distribution Width 19.4 % (12.1-15.1); White Blood Count 5.17 10^3/uL (3.29-11.43)
--- NOTE | 2023-08-31 13:03 | PC.PHAR ---
PT IS FROM [facility] [phone] NEGRON AND ARNULFO
[2023-08-31 13:13] LABS: Lactic Sepsis W/Reflex 1.6 mmol/L (0.5-2.2)
[2023-08-31 13:14] LABS: Alanine Aminotransferase 16 U/L (0-41); Albumin Level 3.6 g/dL (3.5-5.2); Alkaline Phosphatase 425 U/L (40-130); Anion Gap 17.5 (5-19); Aspartate Amino Transferase 28 U/L (0-40); Blood Urea Nitrogen 32 mg/dL (8-23); Calcium 8.7 mg/dL (8.5-10.5); Carbon Dioxide 30 mmol/L (22-29); Chloride 89 mmol/L (98-107); Creatinine Clr Calc Pharmacy 23.3342; Globulin 2.8 g/dL (1.3-4.6); Glomerular Filtration Rate 16.3 mL/min (90-130); Glucose 140 mg/dL (65-115); Lipase 6 U/L (13-60); Osmolality Calculated 283 mOsm/kg (285-295); Potassium 4.5 mmol/L (3.5-5.1); Sodium 132 mmol/L (136-145); Total Bilirubin 1.1 mg/dL (0.15-1.2); Total Protein 6.4 g/dL (6.6-8.7)
--- NOTE | 2023-08-31 13:35 | ED_ITS ---
HPI - Weakness 2 General: Chief complaint: Weakness Stated complaint: Gen Weakness/ Low H&H Time Seen by Provider: 08/31/23 12:05 Source: patient Mode of arrival: EMS History of Present Illness: 63-year-old male presents emergency room via EMS with complaints of generalized weakness. The EMS report was that his hemoglobin is low. He has a history of chronic GI bleed he has known atrial fibrillation he is not on anticoagulation because of the chronic GI bleed. At the chronic GI bleeding combination with his end-stage renal disease is left him chronically anemic. He had multiple hemoglobins this month several of which have been below 8. He had a recent hospitalization with an NSTEMI and A-fib as well as renal disease. During the hospitalization I did not start Cardizem because of his allergy to amlodipine and his heart rate was actually bradycardic at times so they held off on any metoprolol or amiodarone. He denies any chest pain or at this time. He has a lot of chronic pains which are unchanged he has a large ventral hernia. This does not cause any obstruction so they have just observed it. Patient denies any recent medic easier melena hematemesis coffee-ground emesis. He does have chronically black stools which he attributes to iron supplementation which she is on at the [facility]. He states that is largely unchanged. Called to the prison to inquire as to the indication for descending patient to the emergency room. They reported that he was sent because they were concerned about his weakness and could not get stat labs. His hemoglobin has down been down below 8 recently. No reported fever or chest pain. MD Complaint: generalized weakness Relieving factors: none Exacerbating factors: none Associated symptoms: Denies chest pain, chills, confusion, melena, decreased appetite, diaphoresis, dysuria, easy bruising, fever(s), headache(s), myalgias, nausea, rash, short of breath, syncope or vomiting Review of Systems 2 Const: Denies: fever(s), chills or diaphoresis Card: Denies: chest pain or syncope GI: Denies: nausea, vomiting or melena : Denies: dysuria Neuro: Denies: headache(s) or confusion Doug/Lymph: Denies: easy bruising PFS ED 2 PFSH: Medical History (Updated 09/02/23 @ 06:47 by Lauro Srivastava DO) ESRD (end stage renal disease) Acute exacerbation of congestive heart failure Bradycardia Hyperkalemia ESRD (end stage renal disease) on dialysis Acute hyperkalemia NSTEMI (non-ST elevated myocardial infarction) Chest pain Atrial fibrillation Moderate to severe mitral regurgitation Chronic pain Chronic GI bleeding Hiatal hernia High risk medication use Chronic anemia COPD (chronic obstructive pulmonary disease) Severe tobacco use disorder ESRD on hemodialysis History of renal dialysis Chronic kidney disease 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 Intermittent palpitations Hyperlipidemia Hypertension XI (obstructive sleep apnea) DJD (degenerative joint disease) Atrial flutter PVD (peripheral vascular disease) Diabetes Surgical History 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 H/O aortic valve replacement with tissue graft H/O aortic valve replacement H/O foot surgery Family History Grandmother Diabetes Grandfather Diabetes Denies family history of CAD (coronary artery disease) Clotting disorder Dementia Chronic kidney disease (CKD) Suicide Anesthesia complication Bleeding disorder Lung disease Cancer Stroke Social History Smoking and tobacco/nicotine status: former use of tobacco/nicotine Alcohol intake: never Substance/Drug Use: never Lives independently: Yes (with girlfriend) Household members: significant other Marital status: Single service: No 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al status: disabled 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 Pets and animals: Yes Special araceli needs: No Agree to transfusion: Yes Physical Exam 2 Const: GENERAL APPEARANCE: cooperative and comfortable O RIENTATION/CONSCIOUSNESS: Yes awake, Yes oriented to person, Yes oriented to place and Yes oriented to time HENMT: COMMON NORMALS: normocephalic, atraumatic and hearing grossly normal bilaterally HEAD & SCALP: normocephalic and atraumatic Resp: COMMON NORMALS: normal respiratory effort, No retractions, No use of accessory muscles and clear to auscultation bilaterally AUSCULTATION: clear to auscultation bilaterally Cardio: COMMON NORMALS: No murmurs present (Cardio) RATE: tachycardic R HYTHM: abnormal rhythm irregularly irregular GI: COMMON NORMALS: Soft to palpation and No hepatosplenomegaly present A USCULTATION: Yes normoactive bowel sounds PALPATION: Yes Soft to palpation, No Tenderness to palpation present (GI), No Guarding due to palpation present (GI) and Yes No hepatosplenomegaly present OTHER: Marked distortion of abdominal wall in the epigastric area from a ventral wall hernia Extremity: COMMON NORMALS: normal to inspection, capillary refill normal, no clubbing, cyanosis or edema, no calf tenderness and no pedal edema Neuro: SENSORIUM/ORIENTATION: Yes oriented to person, Yes oriented to place and Yes oriented to time Skin: COMMON NORMALS: no rashes or lesions noted GENERAL SKIN EXAM: no rashes or lesions noted Course 2 Vital Signs: Vital signs: Vital Signs Temperature 98.0 F 09/02/23 05:47 Pulse Rate 115 H 09/02/23 06:00 Respiratory Rate 18 09/02/23 05:47 Blood Pressure 123/71 09/02/23 05:47 Pulse Oximetry 99 09/02/23 01:19 Oxygen Delivery Me thod Nasal Cannula 09/01/23 20:00 Oxygen Flow Rate 2.5 09/01/23 20:00 MDM - Weakness Medical Decision Making Previous cephalization patient was actually bradycardic and was sent home without anything for rate control because of this. Patient tells me that had considered a pacemaker and were still monitoring him he actually has a Holter monitor in place at this time. On arrival here he is tachycardic. He is given IV amiodarone as well as p.o. this did improve his rate but he was still at 100. He has worsening renal function and persistent anemia although his anemia is about at the level he is chronically been. He has some mild exacerbation of his CHF as a result of both his A-fib and his anemia as well. Discussed with hospitalist will admit orders written. Medical Records I reviewed the patient's medical records. Lab Data I reviewed the patient's lab results. 09/02/23 05:20 09/02/23 05:20 Radiology Impressions Chest X-Ray 08/31/23 12:22 IMPRESSION: Hypoventilatory changes. Laboratory Results WBC 5.17 10^3/uL (3.29-11.43) 08/31/23 12:35 RBC 2.47 10^6/uL (3.85-5.65) L 08/31/23 12:35 Hgb 7.90 g/dL (11.27-16.99) L 08/31/23 12:35 Hct 26.1 % (37-53) L 08/31/23 12:35 MCV 105.7 fl (82-101) H 08/31/23 12:35 MCH 32.0 pg (27-33) 08/31/23 12:35 MCHC 30.3 g/dL (30-55) 08/31/23 12:35 RDW 19.4 % (12.1-15.1) H 08/31/23 12:35 Plt Count 130 10^3/cmm (157-399) L 08/31/23 12:35 MPV 10.2 fL (7.4-10.4) 08/31/23 12:35 Neut % (Auto) 68.1 % 08/31/23 12:35 Lymph % (Auto) 15.7 % 08/31/23 12:35 [place] % (Auto) 13.7 % 08/31/23 12:35 Eos % (Auto) 1.5 % 08/31/23 12:35 Baso % (Auto) 0.8 % 08/31/23 12:35 Neut # (Auto) 3.52 10^3/uL (1.8-7.7) 08/31/23 12:35 Lymph # (Auto) 0.8 10^3/uL (0.8-4.8) 08/31/23 12:35 [place] # (Auto) 0.7 10^3/uL (0.2-0.9) 08/31/23 12:35 Eos # (Auto) 0.1 10^3/uL (0.0-0.8) 08/31/23 12:35 Baso # (Auto) 0.0 10^3/uL (0.0-0.1) 08/31/23 12:35 Nucleated RBC % (auto) 0 % 08/31/23 12:35 Nucleated RBCs # 0.0 /100WBC 08/31/23 12:35 Sodium 132 mmol/L (136-145) L 08/31/23 12:35 Potassium 4.5 mmol/L (3.5-5.1) 08/31/23 12:35 Chloride 89 mmol/L (98-107) L 08/31/23 12:35 Carbon Dioxide 30 mmol/L (22-29) H 08/31/23 12:35 Anion Gap 17.5 (5-19) 08/31/23 12:35 BUN 32 mg/dL (8-23) H 08/31/23 12:35 Creatinine 3.8 mg/dL (0.7-1.2) H 08/31/23 12:35 GFR Calculation 16.3 mL/min (90-130) L 08/31/23 12:35 Glucose 140 mg/dL (65-115) H 08/31/23 12:35 Estimat Average Glucose 105 08/31/23 12:25 Hemoglobin A1c 5.3 % (4.0-6.0) 08/31/23 12:25 Calculated Osmolality 283 mOsm/kg (285-295) L 08/31/23 12:35 Lactic Acid 1.6 mmol/L (0.5-2.2) 08/31/23 12:35 Calcium 8.7 mg/dL (8.5-10.5) 08/31/23 12:35 Total Bilirubin 1.1 mg/dL (0.15-1.2) 08/31/23 12:35 AST 28 U/L (0-40) 08/31/23 12:35 ALT 16 U/L (0-41) 08/31/23 12:35 Alkaline Phosphatase 425 U/L (40-130) H 08/31/23 12:35 Troponin T Baseline 474 ng/L (0-15) H* 08/31/23 12:35 Troponin T 120 Minute 448.6 ng/L (0-15) H 08/31/23 14:31 Delta Troponin T -25.4 ABS# (0-10) L 08/31/23 14:31 NT-Pro-B Natriuret Pep 67942 pg/mL (0-125) H 08/31/23 14:31 Total Protein 6.4 g/dL (6.6-8.7) L 08/31/23 12:35 Albumin 3.6 g/dL (3.5-5.2) 08/31/23 12:35 Globulin 2.8 g/dL (1.3-4.6) 08/31/23 12:35 Triglycerides 91 mg/dL (0-150) 08/31/23 14:31 Cholesterol 141 mg/dL (0-200) 08/31/23 14:31 LDL Cholesterol, Calc 54 mg/dL (50-129) 08/31/23 14:31 HDL Cholesterol 69 mg/dL (60-100) 08/31/23 14:31 LDL/HDL Ratio 0.78 RATIO (0.00-3.22) 08/31/23 14:31 Cholesterol/HDL Ratio 2.04 mg/dL (1.0-5.00) 08/31/23 14:31 Lipase 6 U/L (13-60) L 08/31/23 12:35 TSH 3.49 uIU/mL (0.27-4.20) 08/31/23 12:25 Hep Bs Antigen Non-reactive (Nonreactive) 08/31/23 12:25 Hep Bs Antibody 203.6 (11.5-1000) 08/31/23 12:25 Blood Type O Positive 08/31/23 12:40 Rho(D) Type Rh positive 08/31/23 12:40 Antibody Screen Negative 08/31/23 12:40 All radiology interpretation(s) finalized by discharge Discharge Plan Discharge Patient Disposition: Admitted As Inpatient Admit Provider: Desean Montes Clinical Impression: Acute exacerbation of congestive heart failure, Tachy-mariposa syndrome, Atrial fibrillation by electrocardiogram, Anemia Condition: Stable Coding Level of Care Code ED Phone Specialist for Lillian Anne
[2023-08-31] MEDS: amiodarone 200 mg Tablet PO (13:58)
[2023-08-31] MEDS: amiodarone 50 mg/mL SDV 3 mL 150 MG IVP (13:58)
[2023-08-31] MEDS: ondansetron 2 mg/ML SDV 2 mL 4 MG IVP (14:33)
--- NOTE | 2023-08-31 14:35 | ECG_ITS ---
[facility] Test Date: 2023-08-31 Pat Name: Richard Huffman Department: Room: Gender: Male Mail Carrier And Clerk: : 1960 Requested By: Lauro Franks Order Number: [id number] Kisha MD: Adria Tian M.D. Measurements Intervals [place] Rate: 108 P: 0 [place]: 0 QRS: -66 QRSD: 158 T: 76 QT: 383 QTc: 515 Interpretive Statements ATRIAL FLUTTER/TACHYCARDIA WITH RAPID VENTRICULAR RESPONSE versus sinus tachycardia LEFT AXIS DEVIATION [QRS AXIS < -30] RIGHT BUNDLE BRANCH BLOCK [120+ ms QRS DURATION, UPRIGHT V1, 40+ ms S IN I/aVL/V4/V5/V6] MODERATE VOLTAGE CRITERIA FOR LVH, CONSIDER NORMAL VARIANT [MEETS CRITERIA IN ONE OF: R(aVL), S(V1), R(V5), R(V5/V6)+S(V1)] Compared to ECG 08/31/2023 12:27:55 Left-axis deviation now present Left anterior fascicular block no longer present ST (T wave) deviation no longer present Myocardial infarct finding no longer present Electronically Signed On 09-03-2023 13:24:02 CDT by Adria Tian M.D. [id number] f
[2023-08-31 14:52] LABS: Troponin(5th) Baseline 474 ng/L (0-15)
[2023-08-31 15:28] LABS: Troponin 5 2HR Delta -25.4 ABS# (0-10)
[2023-08-31 15:29] LABS: Troponin 5 2HR 448.6 ng/L (0-15)
--- NOTE | 2023-08-31 16:15 | ECG_ITS ---
[facility] Test Date: 2023-08-31 Pat Name: Richard Huffman Department: Room: Gender: Male Gang Tailer: : 1960 Requested By: Lauro Franks Order Number: [id number] Kisha MD: Adria Tian M.D. Measurements Intervals [place] Rate: 107 P: 0 [place]: 0 QRS: -39 QRSD: 158 T: 126 QT: 410 QTc: 549 Interpretive Statements ATRIAL FLUTTER/TACHYCARDIA WITH RAPID VENTRICULAR RESPONSE LEFT AXIS DEVIATION [QRS AXIS < -30] Right bundle branch block Compared to ECG 08/31/2023 14:35:52 Electronically Signed On 09-03-2023 13:51:40 CDT by Adria Tian M.D. [id number]
--- NOTE | 2023-08-31 17:36 | P.HP_ITS ---
Providers/Chief Complaint 2 Admitting Physician: Desean Montes MD Primary Care Provider: Sulma Zavala MD Chief Complaint: Gen Weakness/ Low H&H History of Present Illness Richard Huffman is a 63 year old male with a past medical history of atrial fibrillation, history of tachybradycardia syndrome, not on any antiarrhythmic or rate control medications due to developing bradycardia during last hospitalization, acute on chronic anemia, history of large hiatal hernia, large ventral hernia, a history of aortic valve replacement, hyperlipidemia, hypertension, diabetes, who presents [facility] due to from the alf due to shortness of breath, lower extremity edema, palpitations, concerns for anemia. Currently patient sitting up to side of the bed, complaining of shortness of breath, palpitations, heart rates in the low 100s, atrial fibrillation, has been given amiodarone, on 3 L, normotensive, has 2+ pitting edema bilateral extremity, he is also worried about his anemia, his hemoglobin is about at baseline at 7.9, denies any bloody or black stools, denies any hemoptysis, he denies any hematuria, no flank pain, but does have generalized weakness, at the alf there was concerned about his anemia and his weakness, so he was sent over to [facility] for evaluation, Review of Systems 2 Const: Denies: fever(s) Card: Denies: chest pain Resp: Reports: dyspnea GI: Denies: abdominal pain : Denies: flank pain or difficulty urinating Medications/Allergies Home Medications Medication Instructions Recorded Confirmed Last Taken Type oxycodone-acetaminophen 5 mg-325 0.5 - 1 tab PO Q4H PRN Pain 07/15/22 08/31/23 08/31/23 History mg tablet cyanocobalamin (vitamin B-12) 1,000 mcg PO DAILY 08/25/22 08/31/23 08/31/23 History 1,000 mcg tablet (Vitamin B-12) tramadol 50 mg tablet 50 mg PO Q6H PRN Pain, Mild 12/29/22 08/31/23 05/02/23 History Jaky #1 ea 05/11/23 08/31/23 Unknown Rx vit B,C-folic ac 800 mcg-zinc 12.5 1 tab PO BEDTIME 05/15/23 08/31/23 08/30/23 History mg-selen-D3 2,000 unit-vit E tablet (RenaPlex-D) albuterol sulfate 90 mcg/actuation 1 inh inhalation QID PRN shortness 06/01/23 08/31/23 Unknown Rx aerosol inhaler (Ventolin HFA) of breath or wheezing #8.5 grams budesonide 0.5 mg/2 mL suspension 0.5 mg (2 mL) inhalation BID #60 mL 06/01/23 08/31/23 08/31/23 Rx for nebulization budesonide-formoterol HFA 80 2 puff inhalation BID PRN unknown 06/01/23 08/31/23 Unknown Rx mcg-4.5 mcg/actuation aerosol #10.2 grams inhaler (Symbicort) bumetanide 2 mg tablet 2 mg PO BID #180 tabs 06/01/23 08/31/23 08/31/23 Rx escitalopram oxalate 10 mg tablet 10 mg PO QAM #90 tabs 06/01/23 08/31/23 08/31/23 Rx (Lexapro) fluticasone propionate 50 2 spray intranasal DAILY PRN 06/01/23 08/31/23 Unknown Rx mcg/actuation nasal Allergy Symptoms #16 grams spray,suspension ipratropium 0.5 mg-albuterol 3 mg 3 ml inhalation Q6H Shortness Of 06/01/23 08/31/23 08/16/23 Rx (2.5 mg base)/3 mL nebulization Breath #180 mL soln isosorbide mononitrate 30 mg 30 mg PO DAILY #90 tabs 06/01/23 08/31/23 08/31/23 Rx tablet,extended release 24 hr lisinopril 20 mg tablet 20 mg PO BEDTIME #90 tabs 06/01/23 08/31/23 08/30/23 Rx nitroglycerin 2.5 mg 2.5 mg PO DAILY PRN chest 06/01/23 08/31/23 08/27/23 Rx capsule,extended release tightness #30 caps ropinirole 2 mg tablet 2 mg PO BEDTIME #90 tabs 06/01/23 08/31/23 08/30/23 Rx Diabetic shoes #1 ea 06/04/23 08/31/23 Unknown Rx four point rollaid with chair #1 ea 06/04/23 08/31/23 Unknown Rx nebulizer #1 ea 06/04/23 08/31/23 Unknown Rx nebulizer supplies (hose, mask,ect) #1 ea 06/04/23 08/31/23 Unknown Rx oxygen concentrator #1 ea 06/04/23 08/31/23 Unknown Rx shower chair #1 ea 06/04/23 08/31/23 Unknown Rx toiler riser with handles #1 ea 06/04/23 08/31/23 Unknown Rx [place] #1 ea 06/17/23 08/31/23 Unknown Rx acetaminophen 325 mg tablet 650 mg PO Q6H PRN PAIN OR 08/16/23 08/31/23 Unknown History INCREASED TEMP bisacodyl 10 mg rectal suppository See Rx Instructions .Route 08/16/23 08/31/23 Unknown History .COMPLEX PRN Constipation doxycycline hyclate 100 mg capsule 100 mg PO DAILY 08/16/23 08/31/23 08/31/23 History ondansetron HCl 8 mg tablet 8 mg PO Q6H PRN Nausea 08/16/23 08/31/23 08/29/23 History pantoprazole 40 mg tablet,delayed 40 mg PO BEDTIME 08/16/23 08/31/23 08/30/23 History release amiodarone 200 mg tablet 200 mg PO BEDTIME 08/31/23 08/31/23 Unknown History hydralazine 50 mg tablet 50 mg PO BID 08/31/23 08/31/23 08/31/23 History metolazone 5 mg tablet 5 mg PO DAILY 08/31/23 08/31/23 08/31/23 History Allergies Allergy/AdvReac Type Severity Reaction Status Date / Time latex Allergy Mild Blisters Verified 08/24/23 15:34 petrolatum,white Allergy Mild Blisters Verified 08/24/23 15:34 [From A and D Barrier] amlodipine Allergy Unknown Verified 08/24/23 15:34 PFSH Acute 2 PFSH: Medical History (Updated 08/31/23 @ 17:44 by Desean Montes MD) Acute exacerbation of congestive heart failure Bradycardia Hyperkalemia ESRD (end stage renal disease) on dialysis Acute hyperkalemia NSTEMI (non-ST elevated myocardial infarction) Chest pain Atrial fibrillation Moderate to severe mitral regurgitation ESRD (end stage renal disease) Chronic pain Chronic GI bleeding Hiatal hernia High risk medication use Chronic anemia COPD (chronic obstructive pulmonary disease) Severe tobacco use disorder ESRD on hemodialysis History of renal dialysis Chronic kidney disease 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 Intermittent palpitations Hyperlipidemia Hypertension XI (obstructive sleep apnea) DJD (degenerative joint disease) Atrial flutter PVD (peripheral vascular disease) Diabetes Surgical History 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 H/O aortic valve replacement with tissue graft H/O aortic valve replacement H/O foot surgery Family History Grandmother Diabetes Grandfather Diabetes Denies family history of CAD (coronary artery disease) Clotting disorder Dementia Chronic kidney disease (CKD) Suicide Anesthesia complication Bleeding disorder Lung disease Cancer Stroke Social History Smoking and tobacco/nicotine status: former use of tobacco/nicotine Alcohol intake: never Substance/Drug Use: never Lives independently: Yes (with girlfriend) Household members: significant other Marital status: Single service: No 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al status: disabled 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 Pets and animals: Yes Special araceli needs: No Agree to transfusion: Yes Vitals/I&O/Wt Last Vital Signs Temp 98.4 F 08/31/23 12:17 Pulse 107 H 08/31/23 16:30 Resp 17 08/31/23 16:30 BP 120/67 08/31/23 16:30 Pulse Ox 98 08/31/23 16:30 O2 Del Method Room Air 08/31/23 12:17 Weight last 48 hrs Weight 92.533 kg Physical Exam 2 Const: COMMON NORMALS: no acute distress and patient oriented x3 Eye: COMMON NORMALS: Equal, round and reactive pupils present and EOMs intact bilaterally Chest: OTHER: large hiatal hernia, palpable Resp: COMMON NORMALS: normal respiratory effort, No retractions, No use of accessory muscles and clear to auscultation bilaterally AUSCULTATION: clear to auscultation bilaterally Cardio: COMMON NORMALS: regular rate, regular rhythm, S1 normal heart sound present and S2 normal heart sound present RATE: regular rate RHYTHM: r egular rhythm HEART SOUNDS: S1 normal heart sound present and S2 normal heart sound present GI: COMMON NORMALS: Normal to inspection, nondistended, normoactive bowel sounds present and Soft to palpation Extremity: NARRATIVE EXTREMITY EXAM: 2+ edema Neuro: COMMON NORMALS: patient oriented x3, CN's II-XII intact bilaterally and moves all extremities Psych: COMMON NORMALS: mental status grossly normal Data 08/31/23 12:35 08/31/23 12:35 A&P Assessment and plan (1) Acute exacerbation of congestive heart failure: (2) Tachy-mariposa syndrome: (3) Atrial fibrillation by electrocardiogram: (4) Anemia: (5) Diabetic peripheral neuropathy associated with type 2 diabetes mellitus: (6) XI (obstructive sleep apnea): Plan Atrial fibrillation, tachybradycardia syndrome ? During last hospitalization, patient had episodes of bradycardia ? Currently A-fib, heart rates in the 110s has received amiodarone ? Will continue low-dose amiodarone ? Anticoagulation currently relatively contraindicated given his acute on chronic anemia Fluid overload, with acute diastolic CHF exacerbation ? Bumex 1 mg IV every 12 hours ? Monitor urine output monitor creatinine ? Fluid restrictions at 1000 cc Acute on chronic anemia, hemoglobin 7.9 ? Protonix ? Carafate NSTEMI Serial EKGs consult once med telemetry monitoring ? No chest pain complaints End-stage renal disease on dialysis Creatinine 3.8, monitor ? Consulted nephrology for dialysis for fluid overload Full code ? SCD for DVT prophylaxis, Lovenox relatively contraindicated given patient's anemia Attestations 2 Medical Necessity Statement*: Patient requires hospitalization,inpatient, for A-fib, tachybradycardia syndrome, lower extremity edema, CHF exacerbation, anemia Diagnoses Acute exacerbation of congestive heart failure I50.9 Tachy-mariposa syndrome I49.5 Atrial fibrillation by electrocardiogram I48.91 Anemia D64.9 Diabetic peripheral neuropathy associated with type 2 diabetes mellitus E11.42 XI (obstructive sleep apnea) G47.33
[2023-08-31] MEDS: hyDRALAzine 50 mg Tablet PO (17:58)
[2023-08-31 18:00] LABS: Chol HDL Ratio 2.04 mg/dL (1.0-5.00); Cholesterol 141 mg/dL (0-200); HDL Cholesterol 69 mg/dL (60-100); LDL Cholesterol Calculated 54 mg/dL (50-129); LDL HDL Ratio 0.78 RATIO (0.00-3.22); Triglycerides 91 mg/dL (0-150)
[2023-08-31] MEDS: bumetanide 0.25 mg/mL SDV 4 mL 1 MG IVP (18:00)
[2023-08-31 18:18] LABS: Thyroid Stimulating Hormone 3.49 uIU/mL (0.27-4.20)
[2023-08-31 18:22] LABS: NT Pro B Type Natriuretic Pept 55395 pg/mL (0-125)
[2023-08-31] MEDS: pantoprazole 40 mg SDV IVP (18:50)
[2023-08-31] MEDS: sucralfate 1 gm Tablet PO ×2 (18:50→23:58)
[2023-08-31 20:00] LABS: Troponin 5 6HR Delta -75.4 ng/L (0-12)
[2023-08-31 20:01] LABS: Troponin 5 6HR 398.6 ng/L (0-15)
--- NOTE | 2023-08-31 20:15 | ECG_ITS ---
[facility] Test Date: 2023-08-31 Pat Name: Richard Huffman Department: Room: 107 Gender: Male Second Helper: : 1960 Requested By: Lauro Franks Order Number: [id number] Reading MD: Adria Tian M.D. Measurements Intervals [place] Rate: 105 P: -20 NE: 264 QRS: -51 QRSD: 167 T: 129 QT: 379 QTc: 502 Interpretive Statements SINUS TACHYCARDIA WITH FIRST DEGREE AV BLOCK POSSIBLE LEFT ATRIAL ENLARGEMENT [-0.1mV P-WAVE IN V1/V2] Right bundle branch block Left axis deviation Compared to ECG 08/31/2023 16:02:20 No change Electronically Signed On 09-03-2023 13:54:24 CDT by Adria Tian M.D. [id number]
[2023-08-31 20:25] LABS: Estmated Average Glucose 105; Hemoglobin A1C 5.3 % (4.0-6.0)
--- NOTE | 2023-08-31 20:44 | P.CONIM_ITS ---
Providers/Reason For Consult 2 Consulting Physician/Specialty*: kommana/Nephrilogy Reason for Consult*: ESRD Attending Physician: Desean Montes MD Primary Care Provider: Sulma Zavala MD History of Present Illness History of Present Illness Richard Huffman is a 63 year old male Patient is a 63-year-old male with past medical history of atrial fibrillation, history of tachybradycardia syndrome end-stage renal disease on dialysis per Wednesday, history of cardiac valve replacement, dyslipidemia hypertension diabetes presented to the hospital due to shortness of breath worsening lower extremity edema. Patient's hemoglobin was 7.9 on presentation. Chest x-ray showed vascular congestion. Currently on 2 and half liters of oxygen via nasal cannula. Review of Systems 2 Narrative: nEGATIVE Medications/Allergies Home Medications Medication Instructions Recorded Confirmed Last Taken Type oxycodone-acetaminophen 5 mg-325 0.5 - 1 tab PO Q4H PRN Pain 07/15/22 08/31/23 08/31/23 History mg tablet cyanocobalamin (vitamin B-12) 1,000 mcg PO DAILY 08/25/22 08/31/23 08/31/23 History 1,000 mcg tablet (Vitamin B-12) tramadol 50 mg tablet 50 mg PO Q6H PRN Pain, Mild 12/29/22 08/31/23 05/02/23 History Cruthes #1 ea 05/11/23 08/31/23 Unknown Rx vit B,C-folic ac 800 mcg-zinc 12.5 1 tab PO BEDTIME 05/15/23 08/31/23 08/30/23 History mg-selen-D3 2,000 unit-vit E tablet (RenaPlex-D) albuterol sulfate 90 mcg/actuation 1 inh inhalation QID PRN shortness 06/01/23 08/31/23 Unknown Rx aerosol inhaler (Ventolin HFA) of breath or wheezing #8.5 grams budesonide 0.5 mg/2 mL suspension 0.5 mg (2 mL) inhalation BID #60 mL 06/01/23 08/31/23 08/31/23 Rx for nebulization budesonide-formoterol HFA 80 2 puff inhalation BID PRN unknown 06/01/23 08/31/23 Unknown Rx mcg-4.5 mcg/actuation aerosol #10.2 grams inhaler (Symbicort) bumetanide 2 mg tablet 2 mg PO BID #180 tabs 06/01/23 08/31/23 08/31/23 Rx escitalopram oxalate 10 mg tablet 10 mg PO QAM #90 tabs 06/01/23 08/31/23 08/31/23 Rx (Lexapro) fluticasone propionate 50 2 spray intranasal DAILY PRN 06/01/23 08/31/23 Unknown Rx mcg/actuation nasal Allergy Symptoms #16 grams spray,suspension ipratropium 0.5 mg-albuterol 3 mg 3 ml inhalation Q6H Shortness Of 06/01/23 08/31/23 08/16/23 Rx (2.5 mg base)/3 mL nebulization Breath #180 mL soln isosorbide mononitrate 30 mg 30 mg PO DAILY #90 tabs 06/01/23 08/31/23 08/31/23 Rx tablet,extended release 24 hr lisinopril 20 mg tablet 20 mg PO BEDTIME #90 tabs 06/01/23 08/31/23 08/30/23 Rx nitroglycerin 2.5 mg 2.5 mg PO DAILY PRN chest 06/01/23 08/31/23 08/27/23 Rx capsule,extended release tightness #30 caps ropinirole 2 mg tablet 2 mg PO BEDTIME #90 tabs 06/01/23 08/31/23 08/30/23 Rx Diabetic shoes #1 ea 06/04/23 08/31/23 Unknown Rx four point rollaid with chair #1 ea 06/04/23 08/31/23 Unknown Rx nebulizer #1 ea 06/04/23 08/31/23 Unknown Rx nebulizer supplies (hose, mask,ect) #1 ea 06/04/23 08/31/23 Unknown Rx oxygen concentrator #1 ea 06/04/23 08/31/23 Unknown Rx shower chair #1 ea 06/04/23 08/31/23 Unknown Rx toiler riser with handles #1 ea 06/04/23 08/31/23 Unknown Rx [place] #1 ea 06/17/23 08/31/23 Unknown Rx acetaminophen 325 mg tablet 650 mg PO Q6H PRN PAIN OR 08/16/23 08/31/23 Unknown History INCREASED TEMP bisacodyl 10 mg rectal suppository See Rx Instructions .Route 08/16/23 08/31/23 Unknown History .COMPLEX PRN Constipation doxycycline hyclate 100 mg capsule 100 mg PO DAILY 08/16/23 08/31/23 08/31/23 History ondansetron HCl 8 mg tablet 8 mg PO Q6H PRN Nausea 08/16/23 08/31/23 08/29/23 History pantoprazole 40 mg tablet,delayed 40 mg PO BEDTIME 08/16/23 08/31/23 08/30/23 History release amiodarone 200 mg tablet 200 mg PO BEDTIME 08/31/23 08/31/23 Unknown History hydralazine 50 mg tablet 50 mg PO BID 08/31/23 08/31/23 08/31/23 History metolazone 5 mg tablet 5 mg PO DAILY 08/31/23 08/31/23 08/31/23 History Allergies Allergy/AdvReac Type Severity Reaction Status Date / Time latex Allergy Mild Blisters Verified 08/24/23 15:34 petrolatum,white Allergy Mild Blisters Verified 08/24/23 15:34 [From A and D Barrier] amlodipine Allergy Unknown Verified 08/24/23 15:34 Current Medications Generic Name Dose Route Start Last Admin Trade Name Freq PRN Reason Stop Dose Admin Hydralazine HCl 50 mg 08/31/23 18:00 08/31/23 17:58 Hydralazine 50 Mg Tablet PO 50 mg BID KENNEDY Administration Pantoprazole Sodium 40 mg 08/31/23 18:00 08/31/23 18:50 Pantoprazole 40 Mg Sdv IVP 40 mg Q12H KENNEDY Administration Sucralfate 1 gm 08/31/23 18:00 08/31/23 18:50 Sucralfate 1 Gm Tablet PO 1 gm Q6H KENNEDY Administration PFSH Acute 2 PFSH: Medical History (Updated 08/31/23 @ 20:46 by Lilia Downing MD) ESRD (end stage renal disease) Acute exacerbation of congestive heart failure Bradycardia Hyperkalemia ESRD (end stage renal disease) on dialysis Acute hyperkalemia NSTEMI (non-ST elevated myocardial infarction) Chest pain Atrial fibrillation Moderate to severe mitral regurgitation Chronic pain Chronic GI bleeding [place] her[place] High risk medication use Chronic anemia COPD (chronic obstructive pulmonary disease) Severe tobacco use disorder ESRD on hemodialysis History of renal dialysis Chronic kidney disease 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 Intermittent palpitations Hyperlipidemia Hypertension XI (obstructive sleep apnea) DJD (degenerative joint disease) Atrial flutter PVD (peripheral vascular disease) Diabetes Surgical History 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 H/O aortic valve replacement with tissue graft H/O aortic valve replacement H/O foot surgery Family History Grandmother Diabetes Grandfather Diabetes Denies family history of CAD (coronary artery disease) Clotting disorder Dementia Chronic kidney disease (CKD) Suicide Anesthesia complication Bleeding disorder Lung disease Cancer Stroke Social History Smoking and tobacco/nicotine status: former use of tobacco/nicotine Alcohol intake: never Substance/Drug Use: never Lives independently: Yes (with girlfriend) Household members: significant other Marital status: Single service: No 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al status: disabled 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 End-stage renal disease: On MWF schedule as outpatient, HD tomorrow and ultrafiltration as tolerated, low sodium diet and fluid restriction of 1500 mill per day 2. History of CHF with volume overload, HD as above on fluid restriction 3. Chronic anemia, will order PSA 4. Possible NSTEMI, 5 5. History of right valve replacement 6. History of A-fib patient evaluated using audiovisual cart. Time spent 40 min Consult Attestations 2 Medical Necessity Statement: per medicine Coding Level of Care Code Acute Code for Chg Fwd Diagnoses ESRD (end stage renal disease) N18.6
[2023-08-31] MEDS: budesonide 0.5 mg/2 mL Neb INHALATION (20:46)
[2023-08-31 20:48] LABS: Glucose Point of Care 141 mg/dL (70-110)
[2023-08-31] MEDS: ropinirole 2 mg Tablet PO (21:14)
[2023-08-31] MEDS: b-complex-vitamin c Tablet 1 EACH PO (21:14)
[2023-08-31 22:19] LABS: Hepatitis B Surface AB 203.6 (11.5-1000); Hepatitis B Surface Antigen Non-Reactive (Nonreactive)
[2023-08-31 23:06] LABS: Bilirubin Urine Neg (Negative); Blood Urine Neg (Negative); Glucose Urine UA Norm (Normal); Ketones Urine Negative (Negative); Leukocyte Esterase Urine Trace (Negative); Nitrate Urine Negative (Negative); Protein Urine Neg (Negative); Urine Appearance Clear (CLEAR); Urine Color Yellow (Yellow); Urobilinogen Urine Norm (Negative); pH Urine 8 (5-7)
[2023-08-31 23:07] LABS: Add Urine Microscopic? YES; Bacteria Urine TRACE /hpf; Squamous Epithelial Cell Urine 0-4 /hpf (0-5); Sulfosalicylic Acid Urine Positive (Negative); WBC Urine 15-25 /hpf (0-5)
[2023-08-31 23:08] LABS: Add Urine Culture? No
[2023-08-31] MEDS: oxyCODONE-APAP 5-325 mg Tablet 0.5 TAB PO (23:58)
[2023-09-01] VITALS (14 sets, daily range): BP systolic 109–136; BP diastolic 60–83; PULSE 101–116; RESP 14–25; TEMP 36.6–37.1; O2SAT 90–100; BMI 36.5
[2023-09-01 05:31] LABS: Basophils # 0.1 10^3/uL (0.0-0.1); Basophils % 1.1 %; Eosinophils # 0.1 10^3/uL (0.0-0.8); Hematocrit 28.2 % (37-53); Lymphocytes # 0.9 10^3/uL (0.8-4.8); Lymphocytes % 20.7 %; Mean Corpuscular HGB Conc 30.1 g/dL (30-55); Mean Corpuscular Hemoglobin 31.4 pg (27-33); Mean Corpuscular Volume 104.1 fl (82-101); Mean Platelet Volume 10.4 fL (7.4-10.4); Monocytes # 0.5 10^3/uL (0.2-0.9); Monocytes % 11.3 %; Neutrophils % 64.5 %; Nucleated Red Blood Cells % 0 %; Platelet Count 144 10^3/cmm (157-399); Red Blood Count 2.71 10^6/uL (3.85-5.65); Red Cell Distribution Width 18.8 % (12.1-15.1)
[2023-09-01] MEDS: bumetanide 0.25 mg/mL SDV 10 mL 2 MG IVP (05:49)
[2023-09-01] MEDS: pantoprazole 40 mg SDV IVP ×2 (05:49→17:58)
[2023-09-01] MEDS: escitalopram 10 mg Tablet PO (05:49)
[2023-09-01] MEDS: sucralfate 1 gm Tablet PO ×3 (05:49→17:56)
[2023-09-01 05:53] LABS: Anion Gap 20.1 (5-19); Blood Urea Nitrogen 41 mg/dL (8-23); Calcium 9.2 mg/dL (8.5-10.5); Carbon Dioxide 31 mmol/L (22-29); Chloride 88 mmol/L (98-107); Glomerular Filtration Rate 13.7 mL/min (90-130); Glucose 102 mg/dL (65-115); Osmolality Calculated 288 mOsm/kg (285-295); Potassium 5.1 mmol/L (3.5-5.1); Sodium 134 mmol/L (136-145)
[2023-09-01 05:54] LABS: Creatinine Clr Calc Pharmacy 22.4852
[2023-09-01 05:58] LABS: Magnesium 2.4 mg/dL (1.7-2.3)
[2023-09-01 06:47] LABS: Glucose Point of Care 104 mg/dL (70-110)
--- NOTE | 2023-09-01 07:59 | PC.NURSE ---
Patient off floor for dialysis
--- NOTE | 2023-09-01 08:26 | PC.HD ---
Prior to HD, patient c/o 5/10 chronic back pain, not requesting pain medications at this time. Currently resting quietly with eyes closed. Heparin 1000 units loading dose administered via HD catheter at 0810 per manager practice's orders.
--- NOTE | 2023-09-01 08:46 | P.PN_ITS ---
Subjective 2 Subjective: no new complaints Medications: Reviewed: Yes Vitals/I&O/Wt Last Vital Signs Temp 97.9 F 09/01/23 08:25 Pulse 106 H 09/01/23 08:25 Resp 16 09/01/23 08:25 BP 130/83 09/01/23 08:25 Pulse Ox 99 09/01/23 07:25 O2 Del Method Nasal Cannula 09/01/23 07:25 O2 Flow Rate 3 08/31/23 20:47 08/31/23 09/01/23 09/01/23 22:59 06:59 14:59 Intake Total 240 / 240 240 / 480 Output Total 300 / 300 Balance -60 / -60 240 / 180 Weight last 48 hrs Weight 115.354 kg Weight 115.921 kg Weight 92.533 kg Physical Exam 2 Narrative: AWAKE , ALERT , NO DISTRESS S1S2 RRR PER REPORT LUNGS CLEAR PER REPORT + EDEMA Data 09/01/23 05:00 09/01/23 05:00 A&P Assessment and plan (1) ESRD (end stage renal disease): 1. End-stage renal disease: On MWF schedule as outpatient, HD today and ultrafiltration as tolerated, low sodium diet and fluid restriction of 1500 mill per day 2. History of CHF with volume overload, HD as above on fluid restriction 3. Chronic anemia, will order PSA 4. Possible NSTEMI, 5 5. History of right valve replacement 6. History of A-fib patient evaluated using audiovisual cart. Time spent 40 min Attestations 2 Medical Necessity Statement*: per niall olivas Coding Level of Care Code Acute Code for Chg Fwd Diagnoses ESRD (end stage renal disease) N18.6
[2023-09-01 09:02] LABS: NT Pro B Type Natriuretic Pept > 70000 pg/mL (0-125)
--- NOTE | 2023-09-01 11:07 | PC.NURSE ---
patient off unit since shift change for dialysis
--- NOTE | 2023-09-01 11:10 | PC.NURSE ---
patient continues to be off unit for dialysis
[2023-09-01 12:38] LABS: Glucose Point of Care 77 mg/dL (70-110)
[2023-09-01] MEDS: isosorbide mononitrate ER 30 mg Tablet PO (12:45)
[2023-09-01] MEDS: metOLazone 5 MG Tablet PO (12:45)
[2023-09-01] MEDS: amiodarone 200 mg Tablet PO (12:46)
[2023-09-01] MEDS: oxyCODONE-APAP 5-325 mg Tablet 0.5 TAB PO ×2 (12:46→22:06)
[2023-09-01] MEDS: doxycycline 100 mg Tablet PO (12:47)
[2023-09-01] MEDS: cyanocobalamin 1,000 mcg Tablet 1000 MCG PO (12:47)
[2023-09-01] MEDS: ipratropium-albuterol 3 mL Neb INHALATION (15:43)
[2023-09-01 16:59] LABS: Glucose Point of Care 125 mg/dL (70-110)
--- NOTE | 2023-09-01 17:01 | P.PN_ITS ---
Subjective 2 Subjective: Patient was seen this morning, he is currently receiving dialysis, denies any fevers overnight, no chest pain, plan on removing 3 L today off dialysis Vitals/I&O/Wt Last Vital Signs Temp 98.0 F 09/01/23 16:00 Pulse 116 H 09/01/23 16:00 Resp 23 H 09/01/23 16:00 BP 115/60 09/01/23 16:00 Pulse Ox 94 09/01/23 16:00 O2 Del Method Nasal Cannula 09/01/23 16:00 O2 Flow Rate 2.5 09/01/23 15:49 09/01/23 09/01/23 09/01/23 06:59 14:59 22:59 Intake Total 240 / 480 780 / 780 Output Total 3800 / 3800 Balance 240 / 180 -3020 / -3020 Weight last 48 hrs Weight 113.6 kg Weight 115.354 kg Weight 115.921 kg Weight 92.533 kg Physical Exam 2 Const: COMMON NORMALS: no acute distress and patient oriented x3 Resp: COMMON NORMALS: normal respiratory effort, No retractions, No use of accessory muscles and clear to auscultation bilaterally AUSCULTATION: clear to auscultation bilaterally Cardio: COMMON NORMALS: S1 normal heart sound present and S2 normal heart sound present RATE: tachycardic RHYTHM: abnormal rhythm HEART SOUNDS: S 1 normal heart sound present and S2 normal heart sound present GI: COMMON NORMALS: Normal to inspection, nondistended, normoactive bowel sounds present and non-tender Extremity: NARRATIVE EXTREMITY EXAM: 3+ pitting edema Neuro: COMMON NORMALS: patient oriented x3 Psych: COMMON NORMALS: mental status grossly normal Data 09/01/23 05:00 09/01/23 05:00 A&P Assessment and plan (1) Acute exacerbation of congestive heart failure: (2) Tachy-mariposa syndrome: (3) Atrial fibrillation by electrocardiogram: (4) Anemia: (5) Diabetic peripheral neuropathy associated with type 2 diabetes mellitus: (6) XI (obstructive sleep apnea): Plan Atrial fibrillation, tachybradycardia syndrome ? During last hospitalization, patient had episodes of bradycardia ? Currently A-fib, heart rates in the 110s has received amiodarone ? Will continue low-dose amiodarone ? Anticoagulation currently relatively contraindicated given his acute on chronic anemia Fluid overload, with acute diastolic CHF exacerbation ? Will receive dialysis today ? Continue Bumex ? Monitor urine output monitor creatinine ? Fluid restrictions at 1000 cc Acute on chronic anemia, hemoglobin 7.9 ? Protonix ? Carafate NSTEMI Serial EKGs consult once med telemetry monitoring ? No chest pain complaints End-stage renal disease on dialysis Creatinine 3.8, monitor ? Consulted nephrology for dialysis for fluid overload Full code ? SCD for DVT prophylaxis, Lovenox relatively contraindicated given patient's anemia Plan for today monitor heart rate, continue dialysis Attestations 2 Medical Necessity Statement*: Patient requires hospitalization for tachybradycardia syndrome, fluid overload, requiring dialysis Diagnoses Acute exacerbation of congestive heart failure I50.9 Tachy-mariposa syndrome I49.5 Atrial fibrillation by electrocardiogram I48.91 Anemia D64.9 Diabetic peripheral neuropathy associated with type 2 diabetes mellitus E11.42 XI (obstructive sleep apnea) G47.33
[2023-09-01 20:18] LABS: Glucose Point of Care 227 mg/dL (70-110)
[2023-09-01] MEDS: ropinirole 2 mg Tablet PO (21:48)
[2023-09-01] MEDS: b-complex-vitamin c Tablet 1 EACH PO (21:48)
[2023-09-02] VITALS (9 sets, daily range): BP systolic 104–127; BP diastolic 71–73; PULSE 110–115; RESP 17–23; TEMP 36.7; O2SAT 97–99; BMI 36.3
[2023-09-02] MEDS: sucralfate 1 gm Tablet PO ×3 (00:59→11:19)
[2023-09-02] MEDS: TRAMadol 50 mg Tablet PO (01:11)
[2023-09-02] MEDS: oxyCODONE-APAP 5-325 mg Tablet 0.5 TAB PO (02:13)
[2023-09-02] MEDS: ipratropium-albuterol 3 mL Neb INHALATION ×2 (02:59→08:15)
[2023-09-02 05:31] LABS: Basophils % 0.9 %; Eosinophils # 0.1 10^3/uL (0.0-0.8); Eosinophils % 1.1 %; Hematocrit 25.8 % (37-53); Lymphocytes # 0.8 10^3/uL (0.8-4.8); Lymphocytes % 17.9 %; Mean Corpuscular HGB Conc 29.8 g/dL (30-55); Mean Corpuscular Hemoglobin 31.8 pg (27-33); Mean Corpuscular Volume 106.6 fl (82-101); Mean Platelet Volume 9.7 fL (7.4-10.4); Monocytes # 0.6 10^3/uL (0.2-0.9); Neutrophils # 3.13 10^3/uL (1.8-7.7); Neutrophils % 66.7 %; Nucleated Red Blood Cells % 0 %; Platelet Count 140 10^3/cmm (157-399); Red Blood Count 2.42 10^6/uL (3.85-5.65); Red Cell Distribution Width 19.2 % (12.1-15.1); White Blood Count 4.69 10^3/uL (3.29-11.43)
[2023-09-02] MEDS: pantoprazole 40 mg SDV IVP (05:53)
[2023-09-02] MEDS: escitalopram 10 mg Tablet PO (05:53)
[2023-09-02 05:57] LABS: Magnesium 2.1 mg/dL (1.7-2.3)
[2023-09-02 06:05] LABS: Anion Gap 18.5 (5-19); Blood Urea Nitrogen 32 mg/dL (8-23); Calcium 8.8 mg/dL (8.5-10.5); Carbon Dioxide 29 mmol/L (22-29); Chloride 94 mmol/L (98-107); Glomerular Filtration Rate 15.3 mL/min (90-130); Glucose 168 mg/dL (65-115); Osmolality Calculated 295 mOsm/kg (285-295); Potassium 4.5 mmol/L (3.5-5.1); Sodium 137 mmol/L (136-145)
[2023-09-02 06:08] LABS: Creatinine Clr Calc Pharmacy 24.6062
[2023-09-02 06:33] LABS: NT Pro B Type Natriuretic Pept 55891 pg/mL (0-125)
[2023-09-02 07:10] LABS: Glucose Point of Care 158 mg/dL (70-110)
[2023-09-02] MEDS: budesonide 0.5 mg/2 mL Neb INHALATION (08:15)
--- NOTE | 2023-09-02 08:19 | P.PN_ITS ---
Subjective 2 Subjective: no new compliaints Medications: Reviewed: Yes Vitals/I&O/Wt Last Vital Signs Temp 98.0 F 09/02/23 07:29 Pulse 112 H 09/02/23 07:29 Resp 22 H 09/02/23 07:29 BP 115/72 09/02/23 07:29 Pulse Ox 98 09/02/23 07:29 O2 Del Method Nasal Cannula 09/02/23 07:29 O2 Flow Rate 2.5 09/01/23 20:00 09/01/23 09/02/23 09/02/23 22:59 06:59 14:59 Intake Total 480 / 1260 480 / 1740 Balance 480 / -2540 480 / -2060 Weight last 48 hrs Weight 114.759 kg Weight 113.6 kg Weight 115.354 kg Weight 115.921 kg Weight 92.533 kg Physical Exam 2 Narrative: AWAKE , ALERT , NO DISTRESS S1S2 RRR PER REPORT LUNGS CLEAR PER REPORT + EDEMA Data 09/02/23 05:20 09/02/23 05:20 A&P Assessment and plan (1) ESRD (end stage renal disease): 1. End-stage renal disease: On MWF schedule as outpatient, HD yesterday , and ultrafiltration as tolerated, low sodium diet and fluid restriction of 1500 mill per day 2. History of CHF with volume overload, HD as above on fluid restriction 3. Chronic anemia, will order PSA 4. Possible NSTEMI, 5 5. History of right valve replacement 6. History of A-fib patient evaluated using audiovisual cart. Time spent 40 min Attestations 2 Medical Necessity Statement*: per medicine Coding Level of Care Code Acute Code for Chg Fwd Diagnoses ESRD (end stage renal disease) N18.6
[2023-09-02] MEDS: doxycycline 100 mg Tablet PO (09:07)
[2023-09-02] MEDS: amiodarone 200 mg Tablet PO (09:07)
[2023-09-02] MEDS: metOLazone 5 MG Tablet PO (09:08)
[2023-09-02] MEDS: isosorbide mononitrate ER 30 mg Tablet PO (09:08)
[2023-09-02] MEDS: hyDRALAzine 50 mg Tablet PO (09:08)
[2023-09-02] MEDS: bumetanide 1 mg Tablet 2 MG PO (09:08)
[2023-09-02] MEDS: cyanocobalamin 1,000 mcg Tablet 1000 MCG PO (09:08)
[2023-09-02] MEDS: metoprolol tartrate 25 mg Tablet 6.25 MG PO ×2 (11:17→13:07)
--- NOTE | 2023-09-02 11:54 | P.DS_ITS ---
Discharge Providers Date of Admission: 08/31/23 16:15 Date of Discharge: September 02, 2023 Attending Provider at Admission: Desean Montes MD Attending Provider at Discharge: Desean Montes MD Primary Care Provider: Sulma Zavala MD Diagnoses at Discharge Discharge Diagnosis (1) ESRD (end stage renal disease): Status: Acute Reason for Visit Reason for Visit: Gen Weakness/ Low H&H Hospital Course Hospital Course Richard Huffman is a 63 year old male with a past medical history of atrial fibrillation, history of tachybradycardia syndrome, not on any antiarrhythmic or rate control medications due to developing bradycardia during last h ospitalization, acute on chronic anemia, history of large hiatal hernia, large ventral hernia, a history of aortic valve replacement, hyperlipidemia, hypertension, diabetes, who presents [facility] due to from the skilled nursing due to shortness of breath, lower extremity edema, palpitations, concerns for anemia. Currently patient sitting up to side of the bed, complaining of shortness of breath, palpitations, heart rates in the low 100s, atrial fibrillation, has been given amiodarone, on 3 L, normotensive, has 2+ pitting edema bilateral extremity, he is also worried about his anemia, his hemoglobin is about at baseline at 7.9, denies any bloody or black stools, denies any hemoptysis, he denies any hematuria, no flank pain, but does have generalized weakness, at the skilled nursing there was concerned about his anemia and his weakness, so he was sent over to [facility] for evaluation, This is a 63-year-old male, who presents to [facility] for atrial fibrillation, tachybradycardia syndrome, due to his last hospitalization, there was concerns for bradycardia, he was managed on his home amiodarone 200 mg daily however due to persistent episodes of tachycardia, I added on metoprolol 12.5 mg twice daily. He will be discharged with his event monitor, with close follow-up with primary care and cardiology as outpatient. Patient's hospitalization was complicated by fluid overload secondary diastolic CHF exacerbation, A-fib with RVR with fluid overload associated, received inpatient diuresis, dialysis, diuresed over 4 L negative. Will be discharged with a close follow-up with dialysis center tomorrow to receive another session of dialysis. For acute on chronic anemia, hemoglobin has been stabilized at 7.9 no blood complaints of bloody black stools, continue to monitor hemoglobin, will have him follow-up with general surgery as outpatient for consideration of EGD and colonoscopy, nonetheless discharged on Protonix and Carafate. Physical Exam Const: COMMON NORMALS: no acute distress and patient oriented x3 Resp: COMMON NORMALS: normal respiratory effort, No retractions, No use of accessory muscles and clear to auscultation bilaterally AUSCULTATION: clear to auscultation bilaterally Cardio: COMMON NORMALS: regular rate, regular rhythm, S1 normal heart sound present and S2 normal heart sound present RATE: regular rate RHYTHM: regular rhythm HEART SOUNDS: S1 normal heart sound present and S2 normal heart sound present GI: COMMON NORMALS: Normal to inspection, nondistended, normoactive bowel sounds present and non-tender Extremity: COMMON NORMALS: no pedal edema Neuro: COMMON NORMALS: patient oriented x3 Psych: COMMON NORMALS: mental status grossly normal Discharge Data Studies Completed and Pending Completed Studies During Hospitalization Category Date Time Status XR chest 1V portable [id number] Stat Exams 08/31/23 12:22 Completed Pending at discharge Category Date Time Status Basic Metabolic Panel AM LABS Lab 09/03/23 04:00 Ordered Complete Blood Count w/Auto AM LABS Lab 09/03/23 04:00 Ordered Magnesium AM LABS Lab 09/03/23 04:00 Ordered NT Pro B Type Natriuretic Pept QAM Lab 09/03/23 06:00 Ordered SARS Covid-2 Antigen Stat Lab 09/02/23 11:35 Uncollected Radiology Impressions Chest X-Ray 08/31/23 12:22 IMPRESSION: Hypoventilatory changes. Laboratory Results WBC 4.69 10^3/uL (3.29-11.43) 09/02/23 05:20 RBC 2.42 10^6/uL (3.85-5.65) L 09/02/23 05:20 Hgb 7.70 g/dL (11.27-16.99) L 09/02/23 05:20 Hct 25.8 % (37-53) L 09/02/23 05:20 MCV 106.6 fl (82-101) H 09/02/23 05:20 MCH 31.8 pg (27-33) 09/02/23 05:20 MCHC 29.8 g/dL (30-55) L 09/02/23 05:20 RDW 19.2 % (12.1-15.1) H 09/02/23 05:20 Plt Count 140 10^3/cmm (157-399) L 09/02/23 05:20 MPV 9.7 fL (7.4-10.4) 09/02/23 05:20 Neut % (Auto) 66.7 % 09/02/23 05:20 Lymph % (Auto) 17.9 % 09/02/23 05:20 [place] % (Auto) 13.0 % 09/02/23 05:20 Eos % (Auto) 1.1 % 09/02/23 05:20 Baso % (Auto) 0.9 % 09/02/23 05:20 Neut # (Auto) 3.13 10^3/uL (1.8-7.7) 09/02/23 05:20 Lymph # (Auto) 0.8 10^3/uL (0.8-4.8) 09/02/23 05:20 [place] # (Auto) 0.6 10^3/uL (0.2-0.9) 09/02/23 05:20 Eos # (Auto) 0.1 10^3/uL (0.0-0.8) 09/02/23 05:20 Baso # (Auto) 0.0 10^3/uL (0.0-0.1) 09/02/23 05:20 Nucleated RBC % (auto) 0 % 09/02/23 05:20 Nucleated RBCs # 0.0 /100WBC 09/02/23 05:20 Sodium 137 mmol/L (136-145) 09/02/23 05:20 Potassium 4.5 mmol/L (3.5-5.1) 09/02/23 05:20 Chloride 94 mmol/L (98-107) L 09/02/23 05:20 Carbon Dioxide 29 mmol/L (22-29) 09/02/23 05:20 Anion Gap 18.5 (5-19) 09/02/23 05:20 BUN 32 mg/dL (8-23) H 09/02/23 05:20 Creatinine 4.0 mg/dL (0.7-1.2) H 09/02/23 05:20 GFR Calculation 15.3 mL/min (90-130) L 09/02/23 05:20 Glucose 168 mg/dL (65-115) H 09/02/23 05:20 POC Glucose 158 mg/dL (70-110) H 09/02/23 07:06 Estimat Average Glucose 105 08/31/23 12:25 Hemoglobin A1c 5.3 % (4.0-6.0) 08/31/23 12:25 Calculated Osmolality 295 mOsm/kg (285-295) 09/02/23 05:20 Lactic Acid 1.6 mmol/L (0.5-2.2) 08/31/23 12:35 Calcium 8.8 mg/dL (8.5-10.5) 09/02/23 05:20 Magnesium 2.1 mg/dL (1.7-2.3) 09/02/23 05:20 Total Bilirubin 1.1 mg/dL (0.15-1.2) 08/31/23 12:35 AST 28 U/L (0-40) 08/31/23 12:35 ALT 16 U/L (0-41) 08/31/23 12:35 Alkaline Phosphatase 425 U/L (40-130) H 08/31/23 12:35 Troponin T Baseline 474 ng/L (0-15) H* 08/31/23 12:35 Troponin T 120 Minute 448.6 ng/L (0-15) H 08/31/23 14:31 Delta Troponin T -25.4 ABS# (0-10) L 08/31/23 14:31 Troponin T Hi Sens 6Hr 398.6 ng/L (0-15) H 08/31/23 18:45 Troponin T Hi Sens 6Hr Delta -75.4 ng/L (0-12) L 08/31/23 18:45 NT-Pro-B Natriuret Pep 44812 pg/mL (0-125) H 09/02/23 05:20 Total Protein 6.4 g/dL (6.6-8.7) L 08/31/23 12:35 Albumin 3.6 g/dL (3.5-5.2) 08/31/23 12:35 Globulin 2.8 g/dL (1.3-4.6) 08/31/23 12:35 Triglycerides 91 mg/dL (0-150) 08/31/23 14:31 Cholesterol 141 mg/dL (0-200) 08/31/23 14:31 LDL Cholesterol, Calc 54 mg/dL (50-129) 08/31/23 14: HDL Cholesterol 69 mg/dL (60-100) 08/31/23 14:31 LDL/HDL Ratio 0.78 RATIO (0.00-3.22) 08/31/23 14: Cholesterol/HDL Ratio 2.04 mg/dL (1.0-5.00) 08/31/23 14:31 Lipase 6 U/L (13-60) L 08/31/23 12:35 TSH 3.49 uIU/mL (0.27-4.20) 08/31/23 12:25 Urine Color Yellow (Yellow) 08/31/23 21:49 Urine Appearance Clear (CLEAR) 08/31/23 21:49 Urine pH 8 (5-7) H 08/31/23 21:49 Ur Specific [place] 1.010 (1.005-1.030) 08/31/23 21:49 Urine Protein Neg (Negative) 08/31/23 21:49 Urine Glucose (UA) Norm (Normal) 08/31/23 21:49 Urine Ketones Negative (Negative) 08/31/23 21:49 Urine Blood Neg (Negative) 08/31/23 21:49 Urine Nitrate Negative (Negative) 08/31/23 21:49 Urine Bilirubin Neg (Negative) 08/31/23 21:49 Prot Sulfosalicylic Acd Positive (Negative) 08/31/23 21:49 Urine Urobilinogen Norm mg/dL (Negative) 08/31/23 21:49 Ur Leukocyte Esterase Trace (Negative) H 08/31/23 21:49 Urine RBC None /hpf (0-2) 08/31/23 21:49 Urine WBC 15-25 /hpf (0-5) H 08/31/23 21:49 Ur Squamous Epith Cells 0-4 /hpf (0-5) H 08/31/23 21:49 Amorphous Sediment Not Reportable 08/31/23 21:49 Urine Bacteria Trace /hpf (NONE) 08/31/23 21:49 Hep Bs Antigen Non-reactive (Nonreactive) 08/31/23:25 Hep Bs Antibody 203.6 (11.5-1000) 08/31/23 12:25 Blood Type O Positive 08/31/23 12:40 Rho(D) Type Rh positive 08/31/23 12:40 Antibody Screen Negative 08/31/23 12:40 Vitals Last Vital Signs Temp 98.0 F 09/02/23 11:41 Pulse 110 H 09/02/23 11:41 Resp 20 H 09/02/23 11:41 BP 127/72 09/02/23 11:41 Pulse Ox 97 09/02/23 11:41 O2 Del Method Nasal Cannula 09/02/23 11:41 O2 Flow Rate 2.5 09/02/23 08:15 Discharge Plan Discharge Patient Disposition: Home Condition: Stable Prescriptions: New metoprolol tartrate 25 mg tablet 12.5 mg PO BID 30 Days Qty: 30 0RF Continued tramadol 50 mg tablet 50 mg PO Q6H PRN (Reason: Pain, Mild) albuterol sulfate [Ventolin HFA] 90 mcg/actuation HFA aerosol inhaler 1 inh inhalation QID PRN (Reason: shortness of breath or wheezing) Qty: 8.5 3RF budesonide 0.5 mg/2 mL suspension for nebulization 0.5 mg inhalation BID Qty: 60 3RF budesonide-formoterol [Symbicort] 80-4.5 mcg/actuation HFA aerosol inhaler 2 puff INHALATION BID PRN (Reason: unknown) Qty: 10.2 2RF bumetanide 2 mg tablet 2 mg PO BID Qty: 180 1RF Lexapro 10 mg tablet 10 mg PO QAM Qty: 90 1RF ipratropium-albuterol 0.5 mg-3 mg(2.5 mg base)/3 mL solution for nebulization 3 ml INHALATION Q6H Qty: 180 3RF ropinirole 2 mg tablet 2 mg PO BEDTIME Qty: 90 1RF nitroglycerin 2.5 mg capsule, extended release 2.5 mg PO DAILY PRN (Reason: chest tightness) Qty: 30 0RF isosorbide mononitrate 30 mg tablet extended release 24 hr 30 mg PO DAILY Qty: 90 1RF fluticasone propionate 50 mcg/actuation spray,suspension 2 spray intranasal DAILY PRN (Reason: Allergy Symptoms) Qty: 16 1RF (DME) Diabetic shoes See Rx Instructions .ROUTE .MEDSUPPLY Qty: 1 0RF Rx Instructions: With 3 pairs of inserts to the shochristine gumarco (DME) four point rollaid with chair See Rx Instructions .Route .MEDSUPPLY Qty: 1 0RF Rx Instructions: As directed (DME) nebulizer See Rx Instructions .Route .MEDSUPPLY Qty: 1 0RF Rx Instructions: As directed (DME) nebulizer supplies (hose, mask,ect) See Rx Instructions .Route .MEDSUPPLY Qty: 1 1RF Rx Instructions: As directed (DME) oxygen concentrator See Rx Instructions .Route .MEDSUPPLY Qty: 1 0RF Rx Instructions: [place] [place] See Rx Instructions .Route .MEDSUPPLY Qty: 1 1RF Rx Instructions: [place] [place] riser with handles See Rx Instructions .Route .MEDSUPPLY Qty: 1 0RF Rx Instructions: As directed (DME) [place] See Rx Instructions .Route .MEDSUPPLY Qty: 1 0RF Rx Instructions: [place] [place] Cr[place] See Rx Instructions .Route .MEDSUPPLY Qty: 1 0RF Rx Instructions: As directed HOME acetaminophen 325 mg Tablet 650 mg PO Q6H PRN (Reason: PAIN OR INCREASED TEMP) doxycycline hyclate 100 mg capsule 100 mg PO DAILY ondansetron HCl 8 mg tablet 8 mg PO Q6H PRN (Reason: Nausea) bisacodyl 10 mg Suppository See Rx Instructions .ROUTE .COMPLEX PRN (Reason: Constipation) Rx Instructions: INSERT 1 SUPPOSITORY RECTALLY ONCE DAILY NEEDED IF CAN'T TAKE BY MOUTH AND NO BOWEL MOVEMENT IN 3 DAYS. pantoprazole 40 mg tablet,delayed release (DR/EC) 40 mg PO BEDTIME amiodarone 200 mg tablet 200 mg PO BEDTIME metolazone 5 mg tablet 5 mg PO DAILY oxycodone-acetaminophen 5-325 mg tablet 0.5 - 1 tab PO Q4H PRN (Reason: Pain) cyanocobalamin (vitamin B-12) [Vitamin B-12] 1,000 mcg tablet 1,000 mcg PO DAILY RenaPlex-D 800 mcg-12.5 mg -2,000 unit tablet 1 tab PO BEDTIME Changed hydralazine 50 mg tablet 25 mg PO BID Qty: 60 0RF Discontinued lisinopril 20 mg tablet 20 mg PO BEDTIME Qty: 90 1RF Discharge Orders: Discharge Order (Routine); Ordered 09/02/23 Ordered By: Desean Montes Referrals: [facility] [Outside] Sulma Zavala MD [Primary Care Provider] - Discharge Diet: Cardiac Discharge Activity: Resume usual activity Patient Instructions: Metoprolol (By mouth) (Lopressor, Toprol XL), Hydralazine (By mouth) (Apresoline), Heart Failure (DC), CHF Stoplight, Opioid Safety Activity Restrictions/Additional Instructions: -take metoprolol 12.5mg bid, monitor HR closely -will need dialysis tomorrow -monitor hemoglobin, repeat in 48 hours Discharge Attestations Time Spent in Discharge Care*: greater than 30 min Status at Discharge: Cognitive status at discharge: cognitively intact , Behavioral status at discharge: cooperative , Quality Metrics Clinical Quality Measures [ No reported AMI, CVA or VTE this stay] Coding Level of Care Code 20071 Total time (in minutes) for Discharge: 45 Diagnoses ESRD (end stage renal disease) N18.6
[2023-09-02 12:33] LABS: Glucose Point of Care 156 mg/dL (70-110)
--- NOTE | 2023-09-02 12:50 | PC.NURSE ---
Informed Dr Montes that patient's heart rate remaining in the 110s. Received telephone order to give additional dose of Metoprolol 6.25mg PO once and then may discharge.
[2023-09-02 12:55] LABS: SARS Covid-2 Antigen negative (Negative)
--- NOTE | 2023-09-02 13:45 | PC.NURSE ---
Patient to be discharged back to [facility]. Report called to JACOB Quiroga. [facility] to provide transportation. IV removed intact. Instructed patient on medication changes. Patient verbalized understanding. Belongings gathered and placed in bag 2 phones and 2 chargers included.
== END 2023-09-02 14:35 | disposition skilled nursing facility (03) | DRG 291 ==
LOC: ER 14:20 → CSU 16:16
PROVIDERS: Hospitalist; Admitting Provider Family Medicine; Emergency Provider Family Medicine; PCP Family Medicine; Visit Provider Family Medicine
DX: I13.2 Hypertensive heart and chronic kidney disease with heart failure and with stage 5 chronic kidney disease, or end stage renal disease (principal); I50.33 Acute on chronic diastolic (congestive) heart failure; N18.6 End stage renal disease; E11.22 Type 2 diabetes mellitus with diabetic chronic kidney disease; Z99.2 Dependence on renal dialysis; I48.91 Unspecified atrial fibrillation; Z79.01 Long term (current) use of anticoagulants; I25.2 Old myocardial infarction; K43.9 Ventral hernia without obstruction or gangrene; G89.29 Other chronic pain; D63.1 Anemia in chronic kidney disease; J44.9 Chronic obstructive pulmonary disease, unspecified; E78.5 Hyperlipidemia, unspecified; M19.90 Unspecified osteoarthritis, unspecified site; E11.51 Type 2 diabetes mellitus with diabetic peripheral angiopathy without gangrene; Z95.3 Presence of xenogenic heart valve; G47.33 Obstructive sleep apnea (adult) (pediatric); E11.42 Type 2 diabetes mellitus with diabetic polyneuropathy; I49.5 Sick sinus syndrome; K44.9 Diaphragmatic hernia without obstruction or gangrene
CPT/HCPCS: 36415; 36416; 71045; 80048; 80053; 80061; 81001; 82962; 83036; 83605; 83690; 83735; 83880; 84443; 84484; 85025; 86706; 86850; 86900; 87340; 87426; 90935; 93005; 94640; 94664; 96372; 96374; 96375; 96376; 99285; C9113; J0282; J1644; J2405; J3490; J7626

== ENCOUNTER 2023-09-19 11:33 | Emergency (ER) | payer OTHER, SELFPAY ==
[2023-09-19 11:34] VITALS: BP 112/65; PULSE 115; RESP 19; TEMP 36.6; O2SAT 99; BMI 39.2
[2023-09-19 12:12] LABS: Basophils % 0.7 %; Eosinophils # 0.1 10^3/uL (0.0-0.8); Eosinophils % 0.9 %; Hematocrit 30.1 % (37-53); Lymphocytes # 0.7 10^3/uL (0.8-4.8); Lymphocytes % 12.6 %; Mean Corpuscular HGB Conc 29.6 g/dL (30-55); Mean Corpuscular Hemoglobin 31.2 pg (27-33); Mean Corpuscular Volume 105.6 fl (82-101); Mean Platelet Volume 10.3 fL (7.4-10.4); Monocytes # 0.5 10^3/uL (0.2-0.9); Monocytes % 7.9 %; Neutrophils # 4.49 10^3/uL (1.8-7.7); Neutrophils % 77.6 %; Nucleated Red Blood Cells % 0 %; Platelet Count 163 10^3/cmm (157-399); Red Blood Count 2.85 10^6/uL (3.85-5.65); Red Cell Distribution Width 19.7 % (12.1-15.1); White Blood Count 5.79 10^3/uL (3.29-11.43)
[2023-09-19 12:24] LABS: Alanine Aminotransferase 20 U/L (0-41); Albumin Level 3.8 g/dL (3.5-5.2); Alkaline Phosphatase 563 U/L (40-130); Anion Gap 16.9 (5-19); Aspartate Amino Transferase 35 U/L (0-40); Blood Urea Nitrogen 25 mg/dL (8-23); Calcium 9.1 mg/dL (8.5-10.5); Carbon Dioxide 31 mmol/L (22-29); Chloride 90 mmol/L (98-107); Globulin 3.1 g/dL (1.3-4.6); Glomerular Filtration Rate 13.7 mL/min (90-130); Glucose 140 mg/dL (65-115); Osmolality Calculated 285 mOsm/kg (285-295); Potassium 3.9 mmol/L (3.5-5.1); Sodium 134 mmol/L (136-145); Total Bilirubin 1.2 mg/dL (0.15-1.2); Total Protein 6.9 g/dL (6.6-8.7)
[2023-09-19 12:26] LABS: Creatinine Clr Calc Pharmacy 23.2742
[2023-09-19 12:35] VITALS: PULSE 113; RESP 16; O2SAT 98
[2023-09-19 12:40] VITALS: PULSE 113; RESP 17; O2SAT 98
[2023-09-19 12:48] LABS: Bilirubin Urine 1+ (Negative); Blood Urine 2+ (Negative); Glucose Urine UA Norm (Normal); Ketones Urine 1+ (Negative); Nitrate Urine Negative (Negative); Protein Urine 1+ (Negative); Specific Gravity, Urine 1.005 (1.005-1.030); Urine Appearance Clear (CLEAR); Urine Color Dark Yellow (Yellow); pH Urine 7 (5-7)
[2023-09-19 12:49] LABS: Add Urine Culture? No; Bacteria Urine TRACE /hpf; Leukocyte Esterase Urine Trace (Negative); Urobilinogen Urine Norm (Negative); WBC Urine 0-4 /hpf (0-5)
--- NOTE | 2023-09-19 12:55 | W.ED.MALEGU ---
HPI - Male Genitourinary General: Chief complaint: Urogenital-Male Stated complaint: UNABLE TO URINE Time Seen by Provider: 09/19/23 11:34 History of Present Illness: 63-year-old man with a history of end-stage renal disease on dialysis who presents to the emergency room by ambulance with difficulty urinating. He says he has an enlarged prostate and was supposed to see urologist. He says unless his bladder is very full he cannot urinate. Holly placed him got about 250 cc of fluid here. He is requesting to leave the Holly in for now. No fevers. No abdominal pain. No nausea or vomiting. Stable venous stasis. He is complaining that his scrotum is swollen he does have some body wall edema and leg edema. Review of Systems Narrative: Constitutional symptoms: Negative except as documented in HPI. Skin symptoms: Negative except as documented in HPI. Eye symptoms: Negative except as documented in HPI. ENMT symptoms: Negative except as documented in HPI. Respiratory symptoms: Negative except as documented in HPI. Cardiovascular symptoms: Negative except as documented in HPI. Gastrointestinal symptoms: Negative except as documented in HPI. Genitourinary symptoms: Negative except as documented in HPI. Musculoskeletal symptoms: Negative except as documented in HPI. Neurologic symptoms: Negative except as documented in HPI. Psychiatric symptoms: Negative except as documented in HPI. Endocrine symptoms: Negative except as documented in HPI. [facility] PFSH: Medical History (Updated 09/19/23 @ 13:14 by Michaelle Pickett MD) ESRD (end stage renal disease) Acute exacerbation of congestive heart failure Bradycardia Hyperkalemia ESRD (end stage renal disease) on dialysis Acute hyperkalemia NSTEMI (non-ST elevated myocardial infarction) Chest pain Atrial fibrillation Moderate to severe mitral regurgitation Chronic pain Chronic GI bleeding [place] High risk medication use Chronic anemia COPD (chronic obstructive pulmonary disease) Severe tobacco use disorder ESRD on hemodialysis History of renal dialysis Chronic kidney disease 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 Intermittent palpitations Hyperlipidemia Hypertension XI (obstructive sleep apnea) DJD (degenerative joint disease) Atrial flutter PVD (peripheral vascular disease) Diabetes Surgical History (Updated 09/03/23 @ 00:02 by RENEE Huynh) 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 H/O aortic valve replacement with tissue graft H/O aortic valve replacement H/O foot surgery Family History Grandmother Diabetes Grandfather Diabetes Denies family history of CAD (coronary artery disease) Clotting disorder Dementia Chronic kidney disease (CKD) Suicide Anesthesia complication Bleeding disorder Lung disease Cancer Stroke Social History Smoking and tobacco/nicotine status: former use of tobacco/nicotine Alcohol intake: never Substance/Drug Use: never Lives independently: Yes (with girlfriend) Household members: significant other Marital status: Single service: No 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al status: disabled 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 Skin: Warm, dry. Head: Normocephalic, atraumatic. Neck: Supple, trachea midline. Eye: Extraocular movements are intact. Ears, nose, mouth and throat: mucosa moist. Cardiovascular: Regular mildly tachycardic,, Normal peripheral perfusion. Venous stasis and venous stasis dermatitis of the bilateral lower extremities. Scrotal and abdominal wall edema. Respiratory: Lungs are clear to auscultation, respirations are non-labored, breath sounds are equal, Symmetrical chest wall expansion. Gastrointestinal: Soft, Nontender, Non distended Musculoskeletal: Normal ROM, no deformity. Neurological: Alert and oriented, No focal neurological deficit observed. Psychiatric: Cooperative, appropriate mood & affect. Course Vital Signs: Vital signs: Vital Signs Temperature 97.8 F 09/19/23 11:34 Pulse Rate 113 H 09/19/23 12:40 Respiratory Rate 17 09/19/23 12:40 Blood Pressure 112/65 09/19/23 11:34 Pulse Oximetry 98 09/19/23 12:40 MDM - Male Medical Decision Making Medical decision making: Differential diagnosis including but not limited to and based on the above HPI, review of systems and physical exam: Holly catheter was placed and 200 cc urine were removed. Patient says even a small amount of urine is bothersome and he is requesting to leave the Holly catheter for now. He has follow-up with urology tells me soon. Basic lab work and urinalysis were ordered to rule out infection. Orders placed to evaluate differential diagnosis based on the above differential, HPI and physical exam Lab Review: Laboratory results were reviewed and interpreted by myself the emergency room physician. Lab work is fairly unremarkable. Just a few whites in his urine but I am going to place him on some antibiotics particular given that he has had a Holly placed now. I reviewed the patient's medical record. Reexamination: Patient remained stable. No increased work of breathing. No altered mental status. We discussed plan and his request for Holly catheter to remain. Assessment and plan: Scrotal edema Urinary retention End-stage renal disease on dialysis - Discharged home - Discussed plan with patient. Answered any questions. - Evaluation and treatment of this problem were appropriate in the emergency setting. Lab Data 09/19/23 11:59 09/19/23 11:59 Laboratory Results WBC 5.79 10^3/uL (3.29-11.43) 09/19/23 11:59 RBC 2.85 10^6/uL (3.85-5.65) L 09/19/23 11:59 Hgb 8.90 g/dL (11.27-16.99) L 09/19/23 11:59 Hct 30.1 % (37-53) L 09/19/23 11:59 MCV 105.6 fl (82-101) H 09/19/23 11:59 MCH 31.2 pg (27-33) 09/19/23 11:59 MCHC 29.6 g/dL (30-55) L 09/19/23 11:59 RDW 19.7 % (12.1-15.1) H 09/19/23 11:59 Plt Count 163 10^3/cmm (157-399) 09/19/23 11:59 MPV 10.3 fL (7.4-10.4) 09/19/23 11:59 Neut % (Auto) 77.6 % 09/19/23 11:59 Lymph % (Auto) 12.6 % 09/19/23 11:59 [place] % (Auto) 7.9 % 09/19/23 11:59 Eos % (Auto) 0.9 % 09/19/23 11:59 Baso % (Auto) 0.7 % 09/19/23 11:59 Neut # (Auto) 4.49 10^3/uL (1.8-7.7) 09/19/23 11:59 Lymph # (Auto) 0.7 10^3/uL (0.8-4.8) L 09/19/23 11:59 [place] # (Auto) 0.5 10^3/uL (0.2-0.9) 09/19/23 11:59 Eos # (Auto) 0.1 10^3/uL (0.0-0.8) 09/19/23 11:59 Baso # (Auto) 0.0 10^3/uL (0.0-0.1) 09/19/23 11:59 Nucleated RBC % (auto) 0 % 09/19/23 11:59 Nucleated RBCs # 0.0 /100WBC 09/19/23 11:59 Sodium 134 mmol/L (136-145) L 09/19/23 11:59 Potassium 3.9 mmol/L (3.5-5.1) 09/19/23 11:59 Chloride 90 mmol/L (98-107) L 09/19/23 11:59 Carbon Dioxide 31 mmol/L (22-29) H 09/19/23 11:59 Anion Gap 16.9 (5-19) 09/19/23 11:59 BUN 25 mg/dL (8-23) H 09/19/23 11:59 Creatinine 4.4 mg/dL (0.7-1.2) H 09/19/23 11:59 GFR Calculation 13.7 mL/min (90-130) L 09/19/23 11:59 Glucose 140 mg/dL (65-115) H 09/19/23 11:59 Calculated Osmolality 285 mOsm/kg (285-295) 09/19/23 11:59 Lactic Acid 3.0 mmol/L (0.5-2.2) H 09/19/23 11:59 Calcium 9.1 mg/dL (8.5-10.5) 09/19/23 11:59 Total Bilirubin 1.2 mg/dL (0.15-1.2) 09/19/23 11:59 AST 35 U/L (0-40) 09/19/23 11:59 ALT 20 U/L (0-41) 09/19/23 11:59 Alkaline Phosphatase 563 U/L (40-130) H 09/19/23 11:59 Total Protein 6.9 g/dL (6.6-8.7) 09/19/23 11:59 Albumin 3.8 g/dL (3.5-5.2) 09/19/23 11:59 Globulin 3.1 g/dL (1.3-4.6) 09/19/23 11:59 Urine Color Dark yellow (Yellow) A 09/19/23 12:15 Urine Appearance Clear (CLEAR) 09/19/23 12:15 Urine pH 7 (5-7) 09/19/23 12:15 Ur Specific Armstrong 1.005 (1.005-1.030) 09/19/23 12:15 Urine Protein 1+ (Negative) H 09/19/23 12:15 Urine Glucose (UA) Norm (Normal) 09/19/23 12:15 Urine Ketones 1+ (Negative) H 09/19/23 12:15 Urine Blood 2+ (Negative) H 09/19/23 12:15 Urine Nitrate Negative (Negative) 09/19/23 12:15 Urine Bilirubin 1+ (Negative) H 09/19/23 12:15 Urine Urobilinogen Norm mg/dL (Negative) 09/19/23 12:15 Ur Leukocyte Esterase Trace (Negative) H 09/19/23 12:15 Urine RBC 5-10 /hpf (0-2) H 09/19/23 12:15 Urine WBC 0-4 /hpf (0-5) H 09/19/23 12:15 Ur Squamous Epith Cells None /hpf (0-5) 09/19/23 12:15 Amorphous Sediment Not Reportable 09/19/23 12:15 Urine Bacteria Trace /hpf (NONE) 09/19/23 12:15 All radiology interpretation(s) finalized by discharge Discharge Plan Discharge Patient Disposition: Home Clinical Impression: Urinary retention, End stage renal disease on dialysis, Edema Condition: Stable Prescriptions: New cephalexin 500 mg capsule 500 mg PO BID 7 Days Qty: 14 0RF No Action tramadol 50 mg tablet 50 mg PO Q6H PRN (Reason: Pain, Mild) albuterol sulfate [Ventolin HFA] 90 mcg/actuation HFA aerosol inhaler 1 inh inhalation QID PRN (Reason: shortness of breath or wheezing) Qty: 8.5 3RF budesonide 0.5 mg/2 mL suspension for nebulization 0.5 mg inhalation BID Qty: 60 3RF budesonide-formoterol [Symbicort] 80-4.5 mcg/actuation HFA aerosol inhaler 2 puff INHALATION BID PRN (Reason: unknown) Qty: 10.2 2RF bumetanide 2 mg tablet 2 mg PO BID Qty: 180 1RF Lexapro 10 mg tablet 10 mg PO QAM Qty: 90 1RF ipratropium-albuterol 0.5 mg-3 mg(2.5 mg base)/3 mL solution for nebulization 3 ml INHALATION Q6H Qty: 180 3RF ropinirole 2 mg tablet 2 mg PO BEDTIME Qty: 90 1RF nitroglycerin 2.5 mg capsule, extended release 2.5 mg PO DAILY PRN (Reason: chest tightness) Qty: 30 0RF isosorbide mononitrate 30 mg tablet extended release 24 hr 30 mg PO DAILY Qty: 90 1RF fluticasone propionate 50 mcg/actuation spray,suspension 2 spray intranasal DAILY PRN (Reason: Allergy Symptoms) Qty: 16 1RF (DME) Diabetic shoes See Rx Instructions .ROUTE .MEDSUPPLY Qty: 1 0RF Rx Instructions: With 3 pairs of inserts to the shoe guys (DME) four point rollaid with chair See Rx Instructions .Route .MEDSUPPLY Qty: 1 0RF Rx Instructions: As directed (DME) nebulizer See Rx Instructions .Route .MEDSUPPLY Qty: 1 0RF Rx Instructions: As directed (DME) nebulizer supplies (hose, mask,ect) See Rx Instructions .Route .MEDSUPPLY Qty: 1 1RF Rx Instructions: As directed (DME) oxygen concentrator See Rx Instructions .Route .MEDSUPPLY Qty: 1 0RF Rx Instructions: As directed (DME) shower chair See Rx Instructions .Route .MEDSUPPLY Qty: 1 1RF Rx Instructions: As directed (DME) toiler riser with handles See Rx Instructions .Route .MEDSUPPLY Qty: 1 0RF Rx Instructions: As directed (DME) [place] See Rx Instructions .Route .MEDSUPPLY Qty: 1 0RF Rx Instructions: As directed ([facility] [place]) Crutches See Rx Instructions .Route .MEDSUPPLY Qty: 1 0RF Rx Instructions: As directed HOME acetaminophen 325 mg Tablet 650 mg PO Q6H PRN (Reason: PAIN OR INCREASED TEMP) doxycycline hyclate 100 mg capsule 100 mg PO DAILY ondansetron HCl 8 mg tablet 8 mg PO Q6H PRN (Reason: Nausea) bisacodyl 10 mg Suppository See Rx Instructions .ROUTE .COMPLEX PRN (Reason: Constipation) Rx Instructions: INSERT 1 SUPPOSITORY RECTALLY ONCE DAILY NEEDED IF CAN'T TAKE BY MOUTH AND NO BOWEL MOVEMENT IN 3 DAYS. amiodarone 200 mg tablet 200 mg PO BEDTIME metolazone 5 mg tablet 5 mg PO DAILY metoprolol tartrate 25 mg tablet 12.5 mg PO BID 30 Days Qty: 30 0RF hydralazine 50 mg tablet 25 mg PO BID Qty: 60 0RF sucralfate 1 gram Tablet 1 g PO Q12H 30 Days Qty: 60 0RF pantoprazole 40 mg tablet,delayed release (DR/EC) 40 mg PO Q12H 30 Days Qty: 60 0RF oxycodone-acetaminophen 5-325 mg tablet 0.5 - 1 tab PO Q4H PRN (Reason: Pain) cyanocobalamin (vitamin B-12) [Vitamin B-12] 1,000 mcg tablet 1,000 mcg PO DAILY RenaPlex-D 800 mcg-12.5 mg -2,000 unit tablet 1 tab PO BEDTIME Discharge Orders: Discharge ED (Routine); Ordered 09/19/23 Ordered By: Michaelle Pickett Referrals: Sulma Zavala MD [Primary Care Provider] - Discharge Diet: Usual diet Discharge Activity: Increase activity as tolerated Patient Instructions: Holly Catheter Placement and Care (ED), How to Change a Catheter Drainage Bag (DC) Activity Restrictions/Additional Instructions: Thank you for choosing [facility] for your healthcare needs today. Please realize this is an emergency room and that we are providing you with a medical screening exam and this may not be complete and all inclusive of all the testing and or work up that you may need to determine your ailment or severity of your illness. You have been screened and evaluated and felt safe for discharge. Health conditions do change or evolve sometimes and as such it is important that you follow up with your Primary Doctor to be re checked, 3-5 days is a general good time frame for follow up. You are always welcome to return to the ED for re assessment if your symptoms are worsening or you have new concerns Coding Level of Care Code ED Adult Neurologist for [facility]
[2023-09-19 13:00] VITALS: BP 100/61; PULSE 113; RESP 20; O2SAT 95
[2023-09-19 13:05] VITALS: BP 100/61; PULSE 113; RESP 21; O2SAT 98
[2023-09-19 13:51] LABS: Reflex Lactate Order REFLEX LACTIC ORDERD
== END 2023-09-19 15:39 | disposition home or self-care (01) ==
PROVIDERS: Emergency Provider Emergency Medicine; PCP Family Medicine
DX: R33.9 Retention of urine, unspecified (principal); N50.89 Other specified disorders of the male genital organs; R60.9 Edema, unspecified; I13.2 Hypertensive heart and chronic kidney disease with heart failure and with stage 5 chronic kidney disease, or end stage renal disease; E11.22 Type 2 diabetes mellitus with diabetic chronic kidney disease; N18.6 End stage renal disease; I50.9 Heart failure, unspecified; Z99.2 Dependence on renal dialysis; I25.2 Old myocardial infarction; J44.9 Chronic obstructive pulmonary disease, unspecified; E78.5 Hyperlipidemia, unspecified; Z87.891 Personal history of nicotine dependence; Z95.2 Presence of prosthetic heart valve
CPT/HCPCS: 36415; 51702; 80053; 81001; 83605; 85025; 87040; 99283

== ENCOUNTER → 2023-09-21 13:00 | Outpatient (BNVA) | payer OTHER, SELFPAY | PROVIDERS: PCP Family Medicine; Visit Provider Nurse Practitioner Family | DX: I49.5 Sick sinus syndrome (principal); Z87.891 Personal history of nicotine dependence | CPT/HCPCS: 99213 ==

== ENCOUNTER 2023-09-23 13:54 | Emergency (ER) | payer OTHER, SELFPAY ==
[2023-09-23 13:55] VITALS: BP 91/54; PULSE 103; RESP 20; TEMP 36.7; O2SAT 92
[2023-09-23 14:10] VITALS: BP 91/54; PULSE 108; RESP 28; O2SAT 87
--- NOTE | 2023-09-23 14:23 | ED_ITS ---
HPI - General Adult 2 General: Chief complaint: Urogenital-Male Stated complaint: white problems Time Seen by Provider: 09/23/23 13:57 Source: patient Mode of arrival: EMS History of Present Illness: 63-year-old male presents to the emergen cy room with complaints of unable to urinate. He previously had a White catheter in but is allergic to Lasix it was removed. He has end-stage renal disease gets dialysis on Wednesday. He did get all of his dialysis recently has not missed any events. He does still make some urine he denies dysuria urgency frequency fever sweats chills does have chronic swelling to his legs it is about as its baseline. Onset (ago): minute(s) Relieving factors: none Exacerbating factors: none Associated symptoms: Deny chest pain, confusion, cough, diaphoresis, decreased appetite, dyspnea, fevers/chills, headache(s), malaise, nausea, rash, palpitations, seizures, short of breath, syncope, vomiting or weakness Review of Systems 2 Const: Denies: malaise or diaphoresis Card: Denies: chest pain, palpitations or syncope Resp: Denies: dyspnea GI: Denies: nausea or vomiting : Denies: dysuria, urinary frequency or urinary urgency Musc: Denies: neck pain or back pain Skin/Breast: Denies: rash Neuro: Denies: headache(s) or confusion PFSH ED 2 PFSH: Medical History ESRD (end stage renal disease) Acute exacerbation of congestive heart failure Bradycardia Hyperkalemia ESRD (end stage renal disease) on dialysis Acute hyperkalemia NSTEMI (non-ST elevated myocardial infarction) Chest pain Atrial fibrillation Moderate to severe mitral regurgitation Chronic pain Chronic GI bleeding Hiatal hernia High risk medication use Chronic anemia COPD (chronic obstructive pulmonary disease) Severe tobacco use disorder ESRD on hemodialysis History of renal dialysis Chronic kidney disease 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 Intermittent palpitations Hyperlipidemia Hypertension XI (obstructive sleep apnea) DJD (degenerative joint disease) Atrial flutter PVD (peripheral vascular disease) Diabetes Surgical History 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 H/O aortic valve replacement with tissue graft H/O aortic valve replacement H/O foot surgery Family History Grandmother Diabetes Grandfather Diabetes Denies family history of CAD (coronary artery disease) Clotting disorder Dementia Chronic kidney disease (CKD) Suicide Anesthesia complication Bleeding disorder Lung disease Cancer Stroke Social History Smoking and tobacco/nicotine status: former use of tobacco/nicotine Alcohol intake: never Substance/Drug Use: never Lives independently: Yes (with girlfriend) Household members: significant other Marital status: Single service: No 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al status: disabled 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 Pets and animals: Yes Special araceli needs: No Agree to transfusion: Yes Physical Exam 2 Const: COMMON NORMALS: no acute distress GENERAL APPEARANCE: cooperative and comfortable ORIENTATION/CONSCIOUSNESS: Yes awake, Yes oriented to person, Yes oriented to place and Yes oriented to time HENMT: COMMON NORMALS: normocephalic, atraumatic and hearing grossly normal bilaterally HEAD & SCALP: normocephalic and atraumatic Resp: COMMON NORMALS: normal respiratory effort, No retractions, No use of accessory muscles and clear to auscultation bilaterally AUSCULTATION: clear to auscultation bilaterally Cardio: COMMON NORMALS: regular rate, regular rhythm and No murmurs present (Cardio) RATE: regular rate RHYTHM: regular rhythm GI: COMMON NORMALS: Soft to palpation and No hepatosplenomegaly present A USCULTATION: Yes normoactive bowel sounds PALPATION: Yes Soft to palpation, No Tenderness to palpation present (GI), No Guarding due to palpation present (GI) and Yes No hepatosplenomegaly present Extremity: COMMON NORMALS: normal to inspection, capillary refill normal, no clubbing, cyanosis or edema, no calf tenderness and no pedal edema Neuro: SENSORIUM/ORIENTATION: Yes oriented to person, Yes oriented to place and Yes oriented to time Skin: COMMON NORMALS: no rashes or lesions noted GENERAL SKIN EXAM: no rashes or lesions noted Course 2 Vital Signs: Vital signs: Vital Signs Temperature 98.1 F 09/23/23 13:55 Pulse Rate 100 09/23/23 15:46 Respiratory Rate 18 09/23/23 15:46 Blood Pressure 99/61 09/23/23 15:46 Pulse Oximetry 96 09/23/23 15:46 Oxygen Delivery Me thod Nasal Cannula 09/23/23 15:31 Oxygen Flow Rate 3 09/23/23 15:31 MDM - General Adult Medical Decision Making Catheter was removed by half-way because of his latex allergy he once replaced he is on and dialysis for end-stage renal disease but still does have some urine output. Catheter replaced discharge back to the half-way. Labs reviewed has some abnormal results but within expected range given his underlying medical issues. Medical Records I reviewed the patient's medical records. Lab Data I reviewed the patient's lab results. 09/23/23 14:20 09/23/23 14:20 Laboratory Results WBC 5.16 10^3/uL (3.29-11.43) 09/23/23 14:20 RBC 2.73 10^6/uL (3.85-5.65) L 09/23/23 14:20 Hgb 8.60 g/dL (11.27-16.99) L 09/23/23 14:20 Hct 28.7 % (37-53) L 09/23/23 14:20 MCV 105.1 fl (82-101) H 09/23/23 14:20 MCH 31.5 pg (27-33) 09/23/23 14:20 MCHC 30.0 g/dL (30-55) 09/23/23 14:20 RDW 20.9 % (12.1-15.1) H 09/23/23 14:20 Plt Count 125 10^3/cmm (157-399) L 09/23/23 14:20 MPV 10.8 fL (7.4-10.4) H 09/23/23 14:20 Neut % (Auto) 70.0 % 09/23/23 14:20 Lymph % (Auto) 16.9 % 09/23/23 14:20 George % (Auto) 10.7 % 09/23/23 14:20 Eos % (Auto) 1.2 % 09/23/23 14:20 Baso % (Auto) 0.8 % 09/23/23 14:20 Neut # (Auto) 3.62 10^3/uL (1.8-7.7) 09/23/23 14:20 Lymph # (Auto) 0.9 10^3/uL (0.8-4.8) 09/23/23 14:20 George # (Auto) 0.6 10^3/uL (0.2-0.9) 09/23/23 14:20 Eos # (Auto) 0.1 10^3/uL (0.0-0.8) 09/23/23 14:20 Baso # (Auto) 0.0 10^3/uL (0.0-0.1) 09/23/23 14:20 Nucleated RBC % (auto) 0 % 09/23/23 14:20 Nucleated RBCs # 0.0 /100WBC 09/23/23 14:20 Sodium 131 mmol/L (136-145) L 09/23/23 14:20 Potassium 3.5 mmol/L (3.5-5.1) 09/23/23 14:20 Chloride 90 mmol/L (98-107) L 09/23/23 14:20 Carbon Dioxide 28 mmol/L (22-29) 09/23/23 14:20 Anion Gap 16.5 (5-19) 09/23/23 14:20 BUN 21 mg/dL (8-23) 09/23/23 14:20 Creatinine 3.4 mg/dL (0.7-1.2) H 09/23/23 14:20 GFR Calculation 18.5 mL/min (90-130) L 09/23/23 14:20 Glucose 118 mg/dL (65-115) H 09/23/23 14:20 Calculated Osmolality 276 mOsm/kg (285-295) L 09/23/23 14:20 Calcium 8.7 mg/dL (8.5-10.5) 09/23/23 14:20 Total Bilirubin 1.0 mg/dL (0.15-1.2) 09/23/23 14:20 AST 31 U/L (0-40) 09/23/23 14:20 ALT 17 U/L (0-41) 09/23/23 14:20 Alkaline Phosphatase 442 U/L (40-130) H 09/23/23 14:20 Total Protein 6.1 g/dL (6.6-8.7) L 09/23/23 14:20 Albumin 3.4 g/dL (3.5-5.2) L 09/23/23 14:20 Globulin 2.7 g/dL (1.3-4.6) 09/23/23 14:20 Urine Color Yellow (Yellow) 09/23/23 14:32 Urine Appearance Slightly cloudy (CLEAR) 09/23/23 14:32 Urine pH 7 (5-7) 09/23/23 14:32 Ur Specific [place] 1.005 (1.005-1.030) 09/23/23 14:32 Urine Protein 3+ (Negative) H 09/23/23 14:32 Urine Glucose (UA) Norm (Normal) 09/23/23 14:32 Urine Ketones Negative (Negative) 09/23/23 14:32 Urine Blood 3+ (Negative) H 09/23/23 14:32 Urine Nitrate Negative (Negative) 09/23/23 14:32 Urine Bilirubin 1+ (Negative) H 09/23/23 14:32 Urine Urobilinogen Norm mg/dL (Negative) 09/23/23 14:32 Ur Leukocyte Esterase Trace (Negative) H 09/23/23 14:32 Urine RBC 10-15 /hpf (0-2) H 09/23/23 14:32 Urine WBC 15-25 /hpf (0-5) H 09/23/23 14:32 Ur Squamous Epith Cells 5-10 /hpf (0-5) H 09/23/23 14:32 Amorphous Sediment Not Reportable 09/23/23 14:32 Urine Bacteria 1+ /hpf (NONE) H 09/23/23 14:32 All radiology interpretation(s) finalized by discharge Discharge Plan Discharge Patient Disposition: Home Clinical Impression: Bladder outlet obstruction, End stage renal disease, Acute on chronic urinary retention Condition: Stable Prescriptions: No Action tramadol 50 mg tablet 50 mg PO Q6H PRN (Reason: Pain, Mild) albuterol sulfate [Ventolin HFA] 90 mcg/actuation HFA aerosol inhaler 1 inh inhalation QID PRN (Reason: shortness of breath or wheezing) Qty: 8.5 3RF budesonide 0.5 mg/2 mL suspension for nebulization 0.5 mg inhalation BID Qty: 60 3RF budesonide-formoterol [Symbicort] 80-4.5 mcg/actuation HFA aerosol inhaler 2 puff INHALATION BID PRN (Reason: unknown) Qty: 10.2 2RF bumetanide 2 mg tablet 2 mg PO BID Qty: 180 1RF Lexapro 10 mg tablet 10 mg PO QAM Qty: 90 1RF ipratropium-albuterol 0.5 mg-3 mg(2.5 mg base)/3 mL solution for nebulization 3 ml INHALATION Q6H Qty: 180 3RF ropinirole 2 mg tablet 2 mg PO BEDTIME Qty: 90 1RF nitroglycerin 2.5 mg capsule, extended release 2.5 mg PO DAILY PRN (Reason: chest tightness) Qty: 30 0RF isosorbide mononitrate 30 mg tablet extended release 24 hr 30 mg PO DAILY Qty: 90 1RF fluticasone propionate 50 mcg/actuation spray,suspension 2 spray intranasal DAILY PRN (Reason: Allergy Symptoms) Qty: 16 1RF (DME) Diabetic shoes See Rx Instructions .ROUTE .MEDSUPPLY Qty: 1 0RF Rx Instructions: With 3 pairs of inserts to the shoe guys (DME) four point rollaid with chair See Rx Instructions .Route .MEDSUPPLY Qty: 1 0RF Rx Instructions: As directed (DME) nebulizer See Rx Instructions .Route .MEDSUPPLY Qty: 1 0RF Rx Instructions: As directed (DME) nebulizer supplies (hose, mask,ect) See Rx Instructions .Route .MEDSUPPLY Qty: 1 1RF Rx Instructions: As directed (DME) oxygen concentrator See Rx Instructions .Route .MEDSUPPLY Qty: 1 0RF Rx Instructions: As directed (DME) shower chair See Rx Instructions .Route .MEDSUPPLY Qty: 1 1RF Rx Instructions: As directed (DME) toiler riser with handles See Rx Instructions .Route .MEDSUPPLY Qty: 1 0RF Rx Instructions: As directed ([facility]) [place] See Rx Instructions .Route .MEDSUPPLY Qty: 1 0RF Rx Instructions: As directed ([facility]) Crutches See Rx Instructions .Route .MEDSUPPLY Qty: 1 0RF Rx Instructions: As directed HOME acetaminophen 325 mg Tablet 650 mg PO Q6H PRN (Reason: PAIN OR INCREASED TEMP) doxycycline hyclate 100 mg capsule 100 mg PO DAILY ondansetron HCl 8 mg tablet 8 mg PO Q6H PRN (Reason: Nausea) bisacodyl 10 mg Suppository See Rx Instructions .ROUTE .COMPLEX PRN (Reason: Constipation) Rx Instructions: INSERT 1 SUPPOSITORY RECTALLY ONCE DAILY NEEDED IF CAN'T TAKE BY MOUTH AND NO BOWEL MOVEMENT IN 3 DAYS. amiodarone 200 mg tablet 200 mg PO BEDTIME metolazone 5 mg tablet 5 mg PO DAILY metoprolol tartrate 25 mg tablet 12.5 mg PO BID 30 Days Qty: 30 0RF hydralazine 50 mg tablet 25 mg PO BID Qty: 60 0RF sucralfate 1 gram Tablet 1 g PO Q12H 30 Days Qty: 60 0RF pantoprazole 40 mg tablet,delayed release (DR/EC) 40 mg PO Q12H 30 Days Qty: 60 0RF oxycodone-acetaminophen 5-325 mg tablet 0.5 - 1 tab PO Q4H PRN (Reason: Pain) cyanocobalamin (vitamin B-12) [Vitamin B-12] 1,000 mcg tablet 1,000 mcg PO DAILY RenaPlex-D 800 mcg-12.5 mg -2,000 unit tablet 1 tab PO BEDTIME Discharge Orders: Discharge ED (Routine); Ordered 09/23/23 Ordered By: Lauro Srivastava Referrals: Sulma Zavala MD [Primary Care Provider] - Discharge Diet: Usual diet Discharge Activity: Resume usual activity Patient Instructions: Opioid Safety, Pain Management Activity Restrictions/Additional Instructions: Thank you for choosing [facility] for your healthcare needs today. It is very important that you follow up as instructed or that you return to the Emergency Department should you have concerns or if your condition changes or worsens in any way. You are seen today for urinary retention. White was replaced he only had 70 mL. Remainder labs are unremarkable. Follow up with primary care physician. Coding Level of Care Code ED Ballistic Technician for Lillian Anne
[2023-09-23 14:26] LABS: Basophils % 0.8 %; Eosinophils # 0.1 10^3/uL (0.0-0.8); Eosinophils % 1.2 %; Hematocrit 28.7 % (37-53); Lymphocytes # 0.9 10^3/uL (0.8-4.8); Lymphocytes % 16.9 %; Mean Corpuscular Hemoglobin 31.5 pg (27-33); Mean Corpuscular Volume 105.1 fl (82-101); Mean Platelet Volume 10.8 fL (7.4-10.4); Monocytes # 0.6 10^3/uL (0.2-0.9); Monocytes % 10.7 %; Neutrophils # 3.62 10^3/uL (1.8-7.7); Nucleated Red Blood Cells % 0 %; Platelet Count 125 10^3/cmm (157-399); Red Blood Count 2.73 10^6/uL (3.85-5.65); Red Cell Distribution Width 20.9 % (12.1-15.1); White Blood Count 5.16 10^3/uL (3.29-11.43)
--- NOTE | 2023-09-23 14:44 | PC.NURSE ---
PATIENT 20 FR COUDE CATH PLACED. PATIENT TOLERATED PROCEDURE WELL. PATENT URBANO AND DRAINING.
[2023-09-23 14:50] LABS: Alanine Aminotransferase 17 U/L (0-41); Albumin Level 3.4 g/dL (3.5-5.2); Alkaline Phosphatase 442 U/L (40-130); Anion Gap 16.5 (5-19); Aspartate Amino Transferase 31 U/L (0-40); Blood Urea Nitrogen 21 mg/dL (8-23); Calcium 8.7 mg/dL (8.5-10.5); Carbon Dioxide 28 mmol/L (22-29); Chloride 90 mmol/L (98-107); Globulin 2.7 g/dL (1.3-4.6); Glomerular Filtration Rate 18.5 mL/min (90-130); Glucose 118 mg/dL (65-115); Osmolality Calculated 276 mOsm/kg (285-295); Potassium 3.5 mmol/L (3.5-5.1); Sodium 131 mmol/L (136-145); Total Protein 6.1 g/dL (6.6-8.7)
[2023-09-23 14:55] LABS: Add Urine Microscopic? YES; Bilirubin Urine 1+ (Negative); Blood Urine 3+ (Negative); Glucose Urine UA Norm (Normal); Ketones Urine Negative (Negative); Leukocyte Esterase Urine Trace (Negative); Nitrate Urine Negative (Negative); Protein Urine 3+ (Negative); Specific Gravity, Urine 1.005 (1.005-1.030); Urine Appearance Slightly Cloudy (CLEAR); Urine Color Yellow (Yellow); Urobilinogen Urine Norm (Negative); pH Urine 7 (5-7)
[2023-09-23 14:56] LABS: Bacteria Urine 1+ /hpf; WBC Urine 15-25 /hpf (0-5)
[2023-09-23 14:57] LABS: Add Urine Culture? Yes
[2023-09-23 15:31] VITALS: BP 99/61; PULSE 100; RESP 18; O2SAT 96
[2023-09-23 15:46] VITALS: BP 99/61; PULSE 100; RESP 18; O2SAT 96
== END 2023-09-23 15:47 | disposition home or self-care (01) ==
PROVIDERS: Emergency Provider Family Medicine; PCP Family Medicine
DX: R33.9 Retention of urine, unspecified (principal); N32.0 Bladder-neck obstruction; I13.2 Hypertensive heart and chronic kidney disease with heart failure and with stage 5 chronic kidney disease, or end stage renal disease; N18.6 End stage renal disease; E11.22 Type 2 diabetes mellitus with diabetic chronic kidney disease; E11.51 Type 2 diabetes mellitus with diabetic peripheral angiopathy without gangrene; J44.9 Chronic obstructive pulmonary disease, unspecified; E78.5 Hyperlipidemia, unspecified; I25.2 Old myocardial infarction; Z79.899 Other long term (current) drug therapy; Z87.891 Personal history of nicotine dependence; Z99.2 Dependence on renal dialysis
CPT/HCPCS: 36415; 51702; 80053; 81001; 85025; 87086; 99283

== ENCOUNTER 2023-10-02 22:29 | Emergency (ER) | payer OTHER, SELFPAY ==
[2023-10-02 22:36] VITALS: BP 90/61; PULSE 105; RESP 18; TEMP 36.7; O2SAT 88; BMI 38.7
--- NOTE | 2023-10-02 22:45 | PC.NURSE ---
Pt on bedside telemetry monitor
--- NOTE | 2023-10-02 22:47 | ECG_ITS ---
[facility] Test Date: 2023-10-02 Pat Name: Richard Huffman Department: Room: Gender: Male Supervisor Unloading: : 1960 Requested By: Anthony Dsouza Order Number: [id number] Kisha MD: Adria Tian M.D. Measurements Intervals [place] Rate: 105 P: 0 DC: 0 QRS: -62 QRSD: 143 T: 136 QT: 406 QTc: 537 Interpretive Statements UNCERTAIN REGULAR RHYTHM, likely sinus tachycardia RIGHT BUNDLE BRANCH BLOCK [120+ ms QRS DURATION, UPRIGHT V1, 40+ ms S IN I/aVL/V4/V5/V6] POSSIBLE ANTERIOR MYOCARDIAL INFARCTION , OF INDETERMINATE AGE [30 ms Q WAVE IN V3/V4, OR R < 0.2 mV IN V4] INFERIOR MYOCARDIAL INFARCTION , PROBABLY OLD [40+ ms Q WAVE AND/OR ST/T ABNORMALITY IN II/aVF] MODERATE T-WAVE ABNORMALITY, CONSIDER LATERAL ISCHEMIA [-0.1+ mV T-WAVE IN I/aVL/V5/V6] Compared to ECG 08/31/2023 20:54:39 T-wave abnormality now present Possible ischemia now present Electronically Signed On 10-03-2023 7:11:38 CDT by Adria Tian M.D. [email or web address]
--- NOTE | 2023-10-02 22:50 | XRR_ITS ---
PROCEDURE INFORMATION: Exam: XR Chest Exam date and time: 10/02/2023 11:09 PM Age: 63 years old Clinical indication: Chest pressure; Prior surgery; Surgery date: 6+ months; Surgery type: Aortic valve replacement. Dialysis cath; Patient HX: C/O chest pain. Known large upper ventral hernia. TECHNIQUE: Imaging protocol: Radiologic exam of the chest. Views: 1 view. COMPARISON: CR XR chest 1V portable [id number] 08/31/2023 12:29 PM FINDINGS: Tubes, catheters and devices: Right chest wall tunneled hemodialysis catheter. Lungs: Low lung volumes with basilar atelectasis. Pleural spaces: Small right pleural effusion. Heart/Mediastinum: Mild cardiomegaly. Status post sternotomy. Artificial valve is present. Large retrocardiac opacity which appears to contain bowel consistent with large hiatal or ventral hernia. Vasculature: Atherosclerotic calcifications of the aorta are noted. Bones/joints: No acute osseous abnormalities are seen. XR/XR chest 1V portable [id number] IMPRESSION: 1. Large hiatal or ventral hernia. 2. Low lung volumes with basilar atelectasis. 3. Small right pleural effusion.
--- NOTE | 2023-10-02 23:05 | ED_ITS ---
HPI - Chest Pain 2 General: Chief Complaint: Chest Pain Stated Complaint: DIZZY Time Seen by Provider: 10/02/23 22:51 History of Present Illness: EMS brings patient from [facility] they were called out for hypotension tachycardia and dizziness but that is all improved since upon arrival upon arrival patient is now complaining of sternal chest pain. Patient is really recently treated for UTI and had a Holly placed but has been removed since then. Patient thinks he is having urinary retention again. Patient is normally on 3 L of oxygen per nasal cannula however upon arrival he was 88% on room air. Patient is a dialysis patient has dialysis on Wednesday and he has not missed any days. Review of Systems 2 General: Reports: 10 or more systems reviewed and unremarkable except in HPI and below PFSH ED 2 PFSH: Medical History ESRD (end stage renal disease) Acute exacerbation of congestive heart failure Bradycardia Hyperkalemia ESRD (end stage renal disease) on dialysis Acute hyperkalemia NSTEMI (non-ST elevated myocardial infarction) Chest pain Atrial fibrillation Moderate to severe mitral regurgitation Chronic pain Chronic GI bleeding Hiatal hernia High risk medication use Chronic anemia COPD (chronic obstructive pulmonary disease) Severe tobacco use disorder ESRD on hemodialysis History of renal dialysis Chronic kidney disease 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 Intermittent palpitations Hyperlipidemia Hypertension XI (obstructive sleep apnea) DJD (degenerative joint disease) Atrial flutter PVD (peripheral vascular disease) Diabetes Surgical History 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 H/O aortic valve replacement with tissue graft H/O aortic valve replacement H/O foot surgery Family History Grandmother Diabetes Grandfather Diabetes Denies family history of CAD (coronary artery disease) Clotting disorder Dementia Chronic kidney disease (CKD) Suicide Anesthesia complication Bleeding disorder Lung disease Cancer Stroke Social History Smoking and tobacco/nicotine status: former use of tobacco/nicotine Alcohol intake: never Substance/Drug Use: never Lives independently: Yes (with girlfriend) Household members: significant other Marital status: Single service: No 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al status: disabled 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 Pets and animals: Yes Special araceli needs: No Agree to transfusion: Yes Physical Exam 2 Const: COMMON NORMALS: no acute distress, average body habitus, patient oriented x3, no limitations, healthy appearing, alert and well nourished HENMT: COMMON NORMALS: normocephalic, atraumatic, hearing grossly normal bilaterally, external ears normal, Normal external nose present and moist oral mucous membranes HEAD & SCALP: normocephalic and atraumatic NOSE: Normal external nose present EXTERNAL EAR: Yes external ears normal Neck/C-Spine: COMMON NORMALS: no JVD Chest: COMMONS NORMALS: normal inspection of the chest and normal palpation of entire chest wall Resp: COMMON NORMALS: normal respiratory effort, No retractions, No use of accessory muscles and clear to auscultation bilaterally AUSCULTATION: clear to auscultation bilaterally Cardio: COMMON NORMALS: no JVD, regular rate, regular rhythm, S1 normal heart sound present, S2 normal heart sound present, No gallops present (Cardio), No clicks present (Cardio), No murmurs present (Cardio) and No rub (Cardio) R ATE: regular rate RHYTHM: regular rhythm HEART SOUNDS: S1 normal heart sound present and S2 normal heart sound present GI: COMMON NORMALS: Normal to inspection, nondistended, normoactive bowel sounds present, Soft to palpation, non-tender, No hepatosplenomegaly present and no masses PALPATION: Yes Soft to palpation and Yes No hepatosplenomegaly present Neuro: COMMON NORMALS: patient oriented x3 SENSORIUM/ORIENTATION: Yes alert Course 2 Vital Signs: Vital signs: Vital Signs Temperature 98.0 F 10/02/23 22:36 Pulse Rate 94 10/03/23 02:00 Respiratory Rate 18 10/03/23 01:00 Blood Pressure 107/73 10/03/23 02:00 Pulse Oximetry 97 10/03/23 02:00 Oxygen Delivery Me thod Nasal Cannula 10/03/23 02:00 MDM - Chest Pain Medical Decision Making Bladder scan showed 0 Patient had labs, serial EKGs, chest x-rays serial troponins, all of which were stable for the patient he only come back with low potassium at 3.1, patient was given 40 mill equivalents orally. Patient be discharged home. Upon recheck of patient patient was doing well. No complaints. Differential Diagnosis Unlikely acute massive pulmonary embolism, acute respiratory failure, acute myocardial infarction, cardiac arrest or sudden cardiac Medical Records I reviewed the patient's medical records. Lab Data I reviewed the patient's lab results. 10/02/23 23:10 10/02/23 23:10 Radiology Impressions Chest X-Ray 10/02/23 22:50 IMPRESSION: 1. Large hiatal or ventral hernia. 2. Low lung volumes with basilar atelectasis. 3. Small right pleural effusion. Laboratory Results WBC 5.94 10^3/uL (3.29-11.43) 10/02/23 23:10 RBC 3.11 10^6/uL (3.85-5.65) L 10/02/23 23:10 Hgb 10.00 g/dL (11.27-16.99) L 10/02/23 23:10 Hct 32.5 % (37-53) L 10/02/23 23:10 MCV 104.5 fl (82-101) H 10/02/23 23:10 MCH 32.2 pg (27-33) 10/02/23 23:10 MCHC 30.8 g/dL (30-55) 10/02/23 23:10 RDW 20.4 % (12.1-15.1) H 10/02/23 23:10 Plt Count 143 10^3/cmm (157-399) L 10/02/23 23:10 MPV 10.3 fL (7.4-10.4) 10/02/23 23:10 Neut % (Auto) 75.4 % 10/02/23 23:10 Lymph % (Auto) 13.0 % 10/02/23 23:10 [place] % (Auto) 9.6 % 10/02/23 23:10 Eos % (Auto) 0.8 % 10/02/23 23:10 Baso % (Auto) 0.7 % 10/02/23 23:10 Neut # (Auto) 4.48 10^3/uL (1.8-7.7) 10/02/23 23:10 Lymph # (Auto) 0.8 10^3/uL (0.8-4.8) 10/02/23 23:10 [place] # (Auto) 0.6 10^3/uL (0.2-0.9) 10/02/23 23:10 Eos # (Auto) 0.1 10^3/uL (0.0-0.8) 10/02/23 23:10 Baso # (Auto) 0.0 10^3/uL (0.0-0.1) 10/02/23 23:10 Nucleated RBC % (auto) 0 % 10/02/23 23:10 Nucleated RBCs # 0.0 /100WBC 10/02/23 23:10 Sodium 134 mmol/L (136-145) L 10/02/23 23:10 Potassium 3.1 mmol/L (3.5-5.1) L 10/02/23 23:10 Chloride 90 mmol/L (98-107) L 10/02/23 23:10 Carbon Dioxide 28 mmol/L (22-29) 10/02/23 23:10 Anion Gap 19.1 (5-19) H 10/02/23 23:10 BUN 16 mg/dL (8-23) 10/02/23 23:10 Creatinine 3.7 mg/dL (0.7-1.2) H 10/02/23 23:10 GFR Calculation 16.8 mL/min (90-130) L 10/02/23 23:10 Glucose 111 mg/dL (65-115) 10/02/23 23:10 Calculated Osmolality 280 mOsm/kg (285-295) L 10/02/23 23:10 Calcium 8.8 mg/dL (8.5-10.5) 10/02/23 23:10 Phosphorus 3.2 mg/dL (2.5-4.5) 10/02/23 23:10 Magnesium 1.8 mg/dL (1.7-2.3) 10/02/23 23:10 Total Bilirubin 1.0 mg/dL (0.15-1.2) 10/02/23 23:10 AST 43 U/L (0-40) H 10/02/23 23:10 ALT 21 U/L (0-41) 10/02/23 23:10 Alkaline Phosphatase 462 U/L (40-130) H 10/02/23 23:10 Troponin T Baseline 303 ng/L (0-15) H* 10/02/23 23:10 Troponin T 120 Minute 276.2 ng/L (0-15) H 10/03/23 01:23 Delta Troponin T -26.8 ABS# (0-10) L 10/03/23 01:23 Total Protein 6.1 g/dL (6.6-8.7) L 10/02/23 23:10 Albumin 3.7 g/dL (3.5-5.2) 10/02/23 23:10 Globulin 2.4 g/dL (1.3-4.6) 10/02/23 23:10 All radiology interpretation(s) finalized by discharge Discharge Plan Discharge Patient Disposition: Home Clinical Impression: Acute hypokalemia Chest pain Qualifiers: Chest pain type: unspecified Qualified Code(s): R07.9 - Chest pain, unspecified Condition: Stable Prescriptions: No Action tramadol 50 mg tablet 50 mg PO Q6H PRN (Reason: Pain, Mild) albuterol sulfate [Ventolin HFA] 90 mcg/actuation HFA aerosol inhaler 1 inh inhalation QID PRN (Reason: shortness of breath or wheezing) Qty: 8.5 3RF budesonide 0.5 mg/2 mL suspension for nebulization 0.5 mg inhalation BID Qty: 60 3RF budesonide-formoterol [Symbicort] 80-4.5 mcg/actuation HFA aerosol inhaler 2 puff INHALATION BID PRN (Reason: unknown) Qty: 10.2 2RF bumetanide 2 mg tablet 2 mg PO BID Qty: 180 1RF Lexapro 10 mg tablet 10 mg PO QAM Qty: 90 1RF ipratropium-albuterol 0.5 mg-3 mg(2.5 mg base)/3 mL solution for nebulization 3 ml INHALATION Q6H Qty: 180 3RF ropinirole 2 mg tablet 2 mg PO BEDTIME Qty: 90 1RF nitroglycerin 2.5 mg capsule, extended release 2.5 mg PO DAILY PRN (Reason: chest tightness) Qty: 30 0RF isosorbide mononitrate 30 mg tablet extended release 24 hr 30 mg PO DAILY Qty: 90 1RF fluticasone propionate 50 mcg/actuation spray,suspension 2 spray intranasal DAILY PRN (Reason: Allergy Symptoms) Qty: 16 1RF (DME) Diabetic shoes See Rx Instructions .ROUTE .MEDSUPPLY Qty: 1 0RF Rx Instructions: With 3 pairs of inserts to the nini arnold (DME) four point rollaid with chair See Rx Instructions .Route .MEDSUPPLY Qty: 1 0RF Rx Instructions: [place] nebulizer See Rx Instructions .Route .MEDSUPPLY Qty: 1 0RF Rx Instructions: As directed [place] nebulizer supplies (hose, mask,ect) See Rx Instructions .Route .MEDSUPPLY Qty: 1 1RF Rx Instructions: As directed [place] oxygen concentrator See Rx Instructions .Route .MEDSUPPLY Qty: 1 0RF Rx Instructions: As directed [place] shower chair See Rx Instructions .Route .MEDSUPPLY Qty: 1 1RF Rx Instructions: As directed [place] toiler riser with handles See Rx Instructions .Route .MEDSUPPLY Qty: 1 0RF Rx Instructions: As directed [place] See Rx Instructions .Route .MEDSUPPLY Qty: 1 0RF Rx Instructions: As directed [place] Crutches See Rx Instructions .Route .MEDSUPPLY Qty: 1 0RF Rx Instructions: As directed HOME acetaminophen 325 mg Tablet 650 mg PO Q6H PRN (Reason: PAIN OR INCREASED TEMP) doxycycline hyclate 100 mg capsule 100 mg PO DAILY ondansetron HCl 8 mg tablet 8 mg PO Q6H PRN (Reason: Nausea) bisacodyl 10 mg Suppository See Rx Instructions .ROUTE .COMPLEX PRN (Reason: Constipation) Rx Instructions: INSERT 1 SUPPOSITORY RECTALLY ONCE DAILY NEEDED IF CAN'T TAKE BY MOUTH AND NO BOWEL MOVEMENT IN 3 DAYS. amiodarone 200 mg tablet 200 mg PO BEDTIME metolazone 5 mg tablet 5 mg PO DAILY hydralazine 50 mg tablet 25 mg PO BID Qty: 60 0RF pantoprazole 40 mg tablet,delayed release (DR/EC) 40 mg PO Q12H 30 Days Qty: 60 0RF oxycodone-acetaminophen 5-325 mg tablet 0.5 - 1 tab PO Q4H PRN (Reason: Pain) cyanocobalamin (vitamin B-12) [Vitamin B-12] 1,000 mcg tablet 1,000 mcg PO DAILY RenaPlex-D 800 mcg-12.5 mg -2,000 unit tablet 1 tab PO BEDTIME Discharge Orders: Discharge ED (Routine); Ordered 10/03/23 Ordered By: Anthony Dsouza Referrals: Sulma Zavala MD [Primary Care Provider] - 1 week Patient Instructions: Chest Pain (ED) Activity Restrictions/Additional Instructions: Thank you for choosing [facility] for your healthcare needs today. Please realize that you were seen in the emergency department and that we are providing you with an emergency medical screening exam and this may not be a complete and all exclusive of all testing and/or medical workup we may need to determine your element or severity of your illness. It is very important that you follow-up as instructed with your primary care provider or specialist for the additional evaluation and to discuss your medical treatment plan. You may return to the emergency department should you have concerns or if your condition changes or worsens in any way. Coding Level of Care Code ED Equities Trader for Lillian Anne
[2023-10-02 23:18] LABS: Basophils % 0.7 %; Eosinophils # 0.1 10^3/uL (0.0-0.8); Eosinophils % 0.8 %; Hematocrit 32.5 % (37-53); Lymphocytes # 0.8 10^3/uL (0.8-4.8); Mean Corpuscular HGB Conc 30.8 g/dL (30-55); Mean Corpuscular Hemoglobin 32.2 pg (27-33); Mean Corpuscular Volume 104.5 fl (82-101); Mean Platelet Volume 10.3 fL (7.4-10.4); Monocytes # 0.6 10^3/uL (0.2-0.9); Monocytes % 9.6 %; Neutrophils # 4.48 10^3/uL (1.8-7.7); Neutrophils % 75.4 %; Nucleated Red Blood Cells % 0 %; Platelet Count 143 10^3/cmm (157-399); Red Blood Count 3.11 10^6/uL (3.85-5.65); Red Cell Distribution Width 20.4 % (12.1-15.1); White Blood Count 5.94 10^3/uL (3.29-11.43)
[2023-10-02 23:36] LABS: Alanine Aminotransferase 21 U/L (0-41); Albumin Level 3.7 g/dL (3.5-5.2); Alkaline Phosphatase 462 U/L (40-130); Anion Gap 19.1 (5-19); Aspartate Amino Transferase 43 U/L (0-40); Blood Urea Nitrogen 16 mg/dL (8-23); Calcium 8.8 mg/dL (8.5-10.5); Carbon Dioxide 28 mmol/L (22-29); Chloride 90 mmol/L (98-107); Globulin 2.4 g/dL (1.3-4.6); Glomerular Filtration Rate 16.8 mL/min (90-130); Glucose 111 mg/dL (65-115); Magnesium 1.8 mg/dL (1.7-2.3); Osmolality Calculated 280 mOsm/kg (285-295); Phosphorus 3.2 mg/dL (2.5-4.5); Potassium 3.1 mmol/L (3.5-5.1); Sodium 134 mmol/L (136-145); Total Protein 6.1 g/dL (6.6-8.7)
[2023-10-02 23:39] LABS: Troponin(5th) Baseline 303 ng/L (0-15)
[2023-10-02 23:55] VITALS: BP 93/49; PULSE 96; RESP 17; O2SAT 97
[2023-10-03 01:00] VITALS: BP 111/56; PULSE 104; RESP 18
[2023-10-03] MEDS: potassium chloride ER 20 mEq Tablet 40 MEQ PO (01:41)
[2023-10-03 02:00] VITALS: BP 107/73; PULSE 94; O2SAT 97
[2023-10-03 02:07] LABS: Troponin 5 2HR Delta -26.8 ABS# (0-10)
[2023-10-03 02:08] LABS: Troponin 5 2HR 276.2 ng/L (0-15)
--- NOTE | 2023-10-03 03:00 | PC.NURSE ---
Report called to Mariana at [facility]
[2023-10-03 03:29] VITALS: BP 92/70; PULSE 97; RESP 18; O2SAT 98
--- NOTE | 2023-10-03 03:49 | PC.NURSE ---
Pt up to recliner with assist of 2 nurses, awaiting SHEMS for transport back to [facility]
--- NOTE | 2023-10-03 05:05 | PC.NURSE ---
Sitting up in recliner, resting with eyes closed, respirations even and nonlabored
[2023-10-03 08:49] VITALS: BP 102/75; PULSE 90; O2SAT 100
[2023-10-03 09:22] VITALS: BP 102/75; PULSE 90; RESP 18; TEMP 36.7; O2SAT 100
== END 2023-10-03 09:30 | disposition home or self-care (01) ==
PROVIDERS: Emergency Provider Emergency Medicine; PCP Family Medicine
DX: R07.9 Chest pain, unspecified (principal); E87.6 Hypokalemia; Z87.891 Personal history of nicotine dependence; E11.22 Type 2 diabetes mellitus with diabetic chronic kidney disease; I13.2 Hypertensive heart and chronic kidney disease with heart failure and with stage 5 chronic kidney disease, or end stage renal disease; I50.9 Heart failure, unspecified; N18.6 End stage renal disease; Z99.2 Dependence on renal dialysis; I25.2 Old myocardial infarction; J44.9 Chronic obstructive pulmonary disease, unspecified; E78.5 Hyperlipidemia, unspecified
CPT/HCPCS: 36415; 51798; 71045; 80053; 83735; 84100; 84484; 85025; 93005; 99285

== ENCOUNTER 2023-10-11 15:08 | Inpatient (IN) | payer OTHER, SELFPAY ==
[2023-10-11] VITALS (15 sets, daily range): BP systolic 86–126; BP diastolic 55–81; PULSE 92–107; RESP 9–26; TEMP 36.6–36.7; O2SAT 89–100; BMI 39.8; BMI 38.9
--- NOTE | 2023-10-11 15:12 | XRR_ITS ---
PROCEDURE INFORMATION: Exam: XR Chest Exam date and time: 10/11/2023 3:25 PM Age: 63 years old Clinical indication: Cough and dyspnea; Additional info: Dyspnea/cough TECHNIQUE: Imaging protocol: Radiologic exam of the chest. Views: 1 view. COMPARISON: CR (CHEST, ) 10/02/2023 11:09 PM FINDINGS: Tubes, catheters and devices: Right central dialysis line terminates in the right atrium. Lungs: Unremarkable. No consolidation. Pleural spaces: Unremarkable. No pleural effusion. No pneumothorax. Heart/Mediastinum: Unremarkable. No cardiomegaly. Bones/joints: Sternotomy wires noted. Visualized osseous structures are intact. XR/XR chest 1V portable [id number] IMPRESSION: No acute findings.
--- NOTE | 2023-10-11 15:43 | ED_ITS ---
HPI - Abdominal Pain 2 General: Chief Complaint: Abdominal Pain Stated Complaint: abd pain,sob, ams Time Seen by Provider: 10/11/23 15:11 History of Present Illness: 63-year-old [facility] complaints of abdominal pain and difficult time voiding. Patient has a catheter in place because of urinary retention however he has end-stage renal disease and is on dialysis. According to the nursing report he was sent here because of decreased urinary output. He complains of significant cramping throughout. He has a tunneled dialysis cath he supposed to get dialysis Wednesday did not receive dialysis today because he canceled it because of cramping. He denies any chest pain. He is chronically on oxygen. He is not on any anticoagulation he has previously had a aortic valve replacement. Associated Symptoms: Denies chills, dysuria and fever(s) Review of Systems 2 Const: Reports: fatigue and malaise; Denies: fever(s) or chills Card: Denies: chest pain Resp: Reports: dyspnea GI: Denies: abdominal pain : Denies: dysuria, urinary frequency or urinary urgency Musc: Reports: muscle cramps; Denies: neck pain or back pain Skin/Breast: Denies: rash PFSH ED 2 PFSH: Medical History ESRD (end stage renal disease) Acute exacerbation of congestive heart failure Bradycardia Hyperkalemia ESRD (end stage renal disease) on dialysis Acute hyperkalemia NSTEMI (non-ST elevated myocardial infarction) Chest pain Atrial fibrillation Moderate to severe mitral regurgitation Chronic pain Chronic GI bleeding Hiatal hernia High risk medication use Chronic anemia COPD (chronic obstructive pulmonary disease) Severe tobacco use disorder ESRD on hemodialysis History of renal dialysis Chronic kidney disease 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 Intermittent palpitations Hyperlipidemia Hypertension XI (obstructive sleep apnea) DJD (degenerative joint disease) Atrial flutter PVD (peripheral vascular disease) Diabetes Surgical History 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 H/O aortic valve replacement with tissue graft H/O aortic valve replacement H/O foot surgery Family History Grandmother Diabetes Grandfather Diabetes Denies family history of CAD (coronary artery disease) Clotting disorder Dementia Chronic kidney disease (CKD) Suicide Anesthesia complication Bleeding disorder Lung disease Cancer Stroke Social History Smoking and tobacco/nicotine status: former use of tobacco/nicotine Alcohol intake: never Substance/Drug Use: never Lives independently: Yes (with girlfriend) Household members: significant other Marital status: Single service: No 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al status: disabled 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 Pets and animals: Yes Special araceli needs: No Agree to transfusion: Yes Physical Exam 2 Const: GENERAL APPEARANCE: cooperative ORIENTATION/CONSCIOUSNESS: Yes awake, Yes oriented to person, Yes oriented to place and Yes oriented to time HENMT: COMMON NORMALS: normocephalic, atraumatic and hearing grossly normal bilaterally HEAD & SCALP: normocephalic and atraumatic Resp: COMMON NORMALS: normal respiratory effort, No retractions, No use of accessory muscles and clear to auscultation bilaterally AUSCULTATION: clear to auscultation bilaterally Cardio: COMMON NORMALS: regular rate, regular rhythm and No murmurs present (Cardio) RATE: regular rate RHYTHM: regular rhythm GI: COMMON NORMALS: Soft to palpation and No hepatosplenomegaly present A USCULTATION: Yes normoactive bowel sounds PALPATION: Yes Soft to palpation, No Tenderness to palpation present (GI), No Guarding due to palpation present (GI) and Yes No hepatosplenomegaly present : OTHER: Vaiva Vo of the penis that has a mucousy eschar does not appear to be infected there is no induration or edema at the perineum or in the scrotum. Extremity: COMMON NORMALS: normal to inspection, capillary refill normal, no clubbing, cyanosis or edema, no calf tenderness and no pedal edema Neuro: SENSORIUM/ORIENTATION: Yes oriented to person, Yes oriented to place and Yes oriented to time Skin: COMMON NORMALS: no rashes or lesions noted GENERAL SKIN EXAM: no rashes or lesions noted Course 2 Vital Signs: Vital signs: Vital Signs Temperature 97.6 F 10/13/23 03:58 Pulse Rate 105 H 10/13/23 03:58 Respiratory Rate 18 10/13/23 03:58 Blood Pressure 102/66 10/13/23 03:58 Pulse Oximetry 91 10/13/23 03:58 Oxygen Delivery Me thod Nasal Cannula 10/12/23 20:00 Oxygen Flow Rate 3 10/12/23 20:00 MDM - Abdominal Pain Medical Decision Making [place] to the level of the umbilicus. Admit for persistent UTI. Patient does need dialysis today his creatinine is up to 5.1, he missed his regular dialysis earlier today. Started on IV antibiotics discussed with hospitalist. At the time of orders being written only have reached out to on-call nephrology but they have not returned the call at this point yet discussed Dr. Montes Lab Data 10/12/23 04:13 10/12/23 04:13 Labs/Radiology: Radiology Impressions Chest X-Ray 10/11/23 15:12 IMPRESSION: No acute findings. Abdomen/Pelvis CT 10/11/23 17:21 IMPRESSION: 1. Subxiphoid hernia contains a nondilated loop of transverse colon and more in purely contains multiple nondilated loops of small bowel. 2. Circumferential wall thickening of the distal rectum, concerning for proctitis in the appropriate clinical setting. 3. Diverticulosis without evidence of diverticulitis. 4. Diffuse anasarca. 5. Small volume free fluid within the pelvis. 6. Severe diffuse atherosclerotic calcifications including coronary artery calcifications. COMMENTS: Consistent with the [place] [employer]'s Incidental Findings Committee white paper (J Am Yony Radiol 2018): Any incidental renal lesion less than 1 cm or classified as too small to characterize, or any incidental cystic renal lesion characterized as simple-appearing, is likely benign. No follow-up imaging is recommended for these lesions per consensus recommendations based on imaging criteria. Laboratory Results WBC 7.98 10^3/uL (3.29-11.43) 10/11/23 13:45 RBC 3.42 10^6/uL (3.85-5.65) L 10/11/23 13:45 Hgb 10.70 g/dL (11.27-16.99) L 10/11/23 13:45 Hct 34.0 % (37-53) L 10/11/23 13:45 MCV 99.4 fl (82-101) 10/11/23 13:45 MCH 31.3 pg (27-33) 10/11/23 13:45 MCHC 31.5 g/dL (30-55) 10/11/23 13:45 RDW 20.2 % (12.1-15.1) H 10/11/23 13:45 Plt Count 133 10^3/cmm (157-399) L 10/11/23 13:45 MPV 10.7 fL (7.4-10.4) H 10/11/23 13:45 Neut % (Auto) 77.9 % 10/11/23 13:45 Lymph % (Auto) 11.8 % 10/11/23 13:45 [place] % (Auto) 9.1 % 10/11/23 13:45 Eos % (Auto) 0.3 % 10/11/23 13:45 Baso % (Auto) 0.5 % 10/11/23 13:45 Neut # (Auto) 6.22 10^3/uL (1.8-7.7) 10/11/23 13:45 Lymph # (Auto) 0.9 10^3/uL (0.8-4.8) 10/11/23 13:45 [place] # (Auto) 0.7 10^3/uL (0.2-0.9) 10/11/23 13:45 Eos # (Auto) 0.0 10^3/uL (0.0-0.8) 10/11/23 13:45 Baso # (Auto) 0.0 10^3/uL (0.0-0.1) 10/11/23 13:45 Nucleated RBC % (auto) 0 % 10/11/23 13:45 Nucleated RBCs # 0.0 /100WBC 10/11/23 13:45 ESR 36 mm/hr (0-10) H 10/11/23 13:45 PT 17.20 SECONDS (12.1-14.9) H 10/11/23 18:19 INR 1.36 (0.8-1.2) H 10/11/23 18:19 Sodium 132 mmol/L (136-145) L 10/11/23 13:45 Potassium 3.5 mmol/L (3.5-5.1) 10/11/23 13:45 Chloride 89 mmol/L (98-107) L 10/11/23 13:45 Carbon Dioxide 23 mmol/L (22-29) 10/11/23 13:45 Anion Gap 23.5 (5-19) H 10/11/23 13:45 BUN 28 mg/dL (8-23) H 10/11/23 13:45 Creatinine 5.1 mg/dL (0.7-1.2) H 10/11/23 13:45 GFR Calculation 11.6 mL/min (90-130) L 10/11/23 13:45 Glucose 98 mg/dL (65-115) 10/11/23 13:45 Calculated Osmolality 279 mOsm/kg (285-295) L 10/11/23 13:45 Lactic Acid 3.3 mmol/L (0.5-2.2) H 10/11/23 16:58 Lactic Acid (Sepsis) 2.0 mmol/L (0.5-2.2) 10/11/23 20:35 Calcium 8.9 mg/dL (8.5-10.5) 10/11/23 13:45 Total Bilirubin 1.6 mg/dL (0.15-1.2) H 10/11/23 13:45 AST 39 U/L (0-40) 10/11/23 13:45 ALT 16 U/L (0-41) 10/11/23 13:45 Alkaline Phosphatase 338 U/L (40-130) H 10/11/23 13:45 Creatine Kinase 185 U/L (39-308) 10/11/23 18:19 Troponin T Baseline 308 ng/L (0-15) H* 10/11/23 18:19 C-Reactive Protein 83.1 mg/L (0.0-4.9) H 10/11/23 13:45 NT-Pro-B Natriuret Pep > 12563 pg/mL (0-125) H 10/11/23 18:19 Total Protein 6.4 g/dL (6.6-8.7) L 10/11/23 13:45 Albumin 3.4 g/dL (3.5-5.2) L 10/11/23 13:45 Globulin 3.0 g/dL (1.3-4.6) 10/11/23 13:45 Procalcitonin 0.57 ng/mL (0-0.5) H 10/11/23 13:45 Urine Color Yellow (Yellow) 10/11/23 15:33 Urine Appearance Cloudy (CLEAR) A 10/11/23 15:33 Urine pH 9 (5-7) H 10/11/23 15:33 Ur Specific [place] 1.010 (1.005-1.030) 10/11/23 15:33 Urine Protein 3+ (Negative) H 10/11/23 15:33 Urine Glucose (UA) Norm (Normal) 10/11/23 15:33 Urine Ketones Negative (Negative) 10/11/23 15:33 Urine Blood 3+ (Negative) H 10/11/23 15:33 Urine Nitrate Negative (Negative) 10/11/23 15:33 Urine Bilirubin Neg (Negative) 10/11/23 15:33 Urine Urobilinogen Neg mg/dL (Negative) 10/11/23 15:33 Ur Leukocyte Esterase 2+ (Negative) H 10/11/23 15:33 Urine RBC >100 /hpf (0-2) H 10/11/23 15:33 Urine WBC Too numerous to cnt /hpf (0-5) H 10/11/23 15:33 Ur Squamous Epith Cells 0-4 /hpf (0-5) H 10/11/23 15:33 Amorphous Sediment Not Reportable 10/11/23 15:33 Urine Bacteria 4+ /hpf (NONE) H 10/11/23 15:33 Hep Bs Antigen Non-reactive (Nonreactive) 10/11/23 13:45 Hep Bs Antibody 254.8 (11.5-1000) 10/11/23 13:45 All radiology interpretation(s) finalized by discharge Discharge Plan Discharge Patient Disposition: Admitted As Inpatient Admit Provider: Desean Montes Clinical Impression: UTI (urinary tract infection), Atrial fibrillation with slow ventricular response, Balanoposthitis, End stage renal disease on dialysis Condition: Stable Coding Level of Care Code ED Strip Deburrer for Lillian Anne
[2023-10-11 15:53] LABS: Basophils % 0.5 %; Eosinophils % 0.3 %; Lymphocytes # 0.9 10^3/uL (0.8-4.8); Lymphocytes % 11.8 %; Mean Corpuscular HGB Conc 31.5 g/dL (30-55); Mean Corpuscular Hemoglobin 31.3 pg (27-33); Mean Corpuscular Volume 99.4 fl (82-101); Mean Platelet Volume 10.7 fL (7.4-10.4); Monocytes # 0.7 10^3/uL (0.2-0.9); Monocytes % 9.1 %; Neutrophils # 6.22 10^3/uL (1.8-7.7); Neutrophils % 77.9 %; Nucleated Red Blood Cells % 0 %; Platelet Count 133 10^3/cmm (157-399); Red Blood Count 3.42 10^6/uL (3.85-5.65); Red Cell Distribution Width 20.2 % (12.1-15.1); White Blood Count 7.98 10^3/uL (3.29-11.43)
[2023-10-11 16:08] LABS: Alanine Aminotransferase 16 U/L (0-41); Albumin Level 3.4 g/dL (3.5-5.2); Alkaline Phosphatase 338 U/L (40-130); Aspartate Amino Transferase 39 U/L (0-40); Blood Urea Nitrogen 28 mg/dL (8-23); Calcium 8.9 mg/dL (8.5-10.5); Carbon Dioxide 23 mmol/L (22-29); Chloride 89 mmol/L (98-107); Creatinine Clr Calc Pharmacy 20.2663; Glomerular Filtration Rate 11.6 mL/min (90-130); Glucose 98 mg/dL (65-115); Osmolality Calculated 279 mOsm/kg (285-295); Sodium 132 mmol/L (136-145); Total Bilirubin 1.6 mg/dL (0.15-1.2); Total Protein 6.4 g/dL (6.6-8.7)
[2023-10-11 16:18] LABS: Anion Gap 23.5 (5-19); Potassium 3.5 mmol/L (3.5-5.1)
[2023-10-11 16:25] LABS: Blood Urine 3+ (Negative); Glucose Urine UA Norm (Normal); Ketones Urine Negative (Negative); Protein Urine 3+ (Negative); Urine Appearance Cloudy (CLEAR); Urine Color Yellow (Yellow); pH Urine 9 (5-7)
[2023-10-11 16:26] LABS: Add Urine Microscopic? YES; Bilirubin Urine Neg (Negative); Leukocyte Esterase Urine 2+ (Negative); Nitrate Urine Negative (Negative); Urobilinogen Urine Neg (Negative)
[2023-10-11 16:29] LABS: Add Urine Culture? Yes; Bacteria Urine 4+ /hpf; RBC Urine >100 /hpf (0-2); Squamous Epithelial Cell Urine 0-4 /hpf (0-5); WBC Urine TOO NUMEROUS TO CNT /hpf (0-5)
--- NOTE | 2023-10-11 17:21 | CTR_ITS ---
PROCEDURE INFORMATION: Exam: CT Abdomen And Pelvis With Contrast Exam date and time: 10/11/2023 6:01 PM Age: 63 years old Clinical indication: Abdominal pain; Additional info: Abd pain TECHNIQUE: Imaging protocol: Computed tomography of the abdomen and pelvis with contrast. Radiation optimization: All CT scans at this facility use at least one of these dose optimization techniques: automated exposure control; mA and/or kV adjustment per patient size (includes targeted exams where dose is matched to clinical indication); or iterative reconstruction. Contrast material: OMNI 350; Contrast volume: 100 ml; Contrast route: INTRAVENOUS (IV); COMPARISON: CT abdomen pelvis wo con [id number] 02/09/2023 10:33 AM RADIATION DOSE METRICS: Total DLP (mGy-cm): 1689 FINDINGS: Lungs: Mild bibasilar atelectasis. Pleural spaces: Trace right pleural effusion. Heart: Cardiomegaly. Mitral valve hardware. Coronary arteries: Coronary artery calcifications. Liver: Hepatic steatosis. Gallbladder and biliary ducts: Normal. No calcified stones. No ductal dilation. Pancreas: Fatty atrophy of the pancreas. No ductal dilation. Spleen: Normal. No splenomegaly. Adrenal glands: Normal. No mass. Kidneys and ureters: Cortical atrophy of the bilateral kidneys. Small bilateral simple renal cysts, no follow-up needed.. Unchanged small calcified cyst within the upper pole of the right kidney, stable compared to prior CT scan February 09, 2023. Stomach and bowel: Diverticulosis without evidence of diverticulitis. Circumferential wall thickening of the distal rectum, concerning for proctitis in the appropriate clinical setting. Appendix: No evidence of appendicitis. Intraperitoneal space: Small amount of free fluid within the pelvis. Vasculature: Severe diffuse atherosclerotic calcifications. Lymph nodes: Prominent bi inguinal lymph nodes which may be reactive in etiology. Urinary bladder: Holly catheter in place. Reproductive: Prostatic calcifications. Bones/joints: Median sternotomy wires. Moderate multilevel spondylosis. Soft tissues: Diffuse anasarca. Subxiphoid hernia contains a nondilated loop of transverse colon and more in purely contains multiple nondilated loops of small bowel. CT/CT abdomen pelvis w con* [id number] IMPRESSION: 1. Subxiphoid hernia contains a nondilated loop of transverse colon and more in purely contains multiple nondilated loops of small bowel. 2. Circumferential wall thickening of the distal rectum, concerning for proctitis in the appropriate clinical setting. 3. Diverticulosis without evidence of diverticulitis. 4. Diffuse anasarca. 5. Small volume free fluid within the pelvis. 6. Severe diffuse atherosclerotic calcifications including coronary artery calcifications. COMMENTS: Consistent with the [employer]'s Incidental Findings Committee white paper (J Am Yony Radiol 2018): Any incidental renal lesion less than 1 cm or classified as too small to characterize, or any incidental cystic renal lesion characterized as simple-appearing, is likely benign. No follow-up imaging is recommended for these lesions per consensus recommendations based on imaging criteria.
--- NOTE | 2023-10-11 17:31 | P.HP_ITS ---
Providers/Chief Complaint 2 Primary Care Provider: Sulma Zavala MD Chief Complaint: abd pain,sob, ams History of Present Illness Richard Huffman is a 63 year old male with a past medical history of CHF, history of end-stage renal disease on dialysis, type 2 diabetes mellitus, atrial fibrillation, decreased urinary output, hematuria,. According to ER physician, [facility] facility had concern for urinary retention patient is end-stage renal disease on dialysis according to pen[facility]iary he does urinate, due to concern for decreased urination, urine retention, Holly catheter was placed, there was also concern for UTI,. Currently patient's biggest complaint is lower abdominal pain, pelvic pain, pain at the head of his penis, he is grabbing the head of his penis currently as he has severe pain with a Holly catheter is inserted, he says raising it helps, he tells me that they placed a Holly catheter as his urine output decreased, he tells me that he has been urinating less recently, denies any fevers, no chills, no nausea, no vomiting, no no flank pain, no perineal pain. I have called [facility], but havenot been able to get through to nursing staff Currently patient sitting in wheelchair, he has his pants on, one-handed his pants, grabbing at head of his penis due to severe pain, with the help of nursing staff, patient was lifted out of his wheelchair, he had a bowel movement, which was cleaned, during my examination, he has 2 sacral DTI's, over the sacrum and the largest measuring 1 x 1 cm, superficial stage II, he was then put back into bed, he does have 2+ pitting edema lower extremities, denies any shortness of breath is on room air, he is it legs were lifted and put into bed, his pants were removed, on examination, he has no urine in the bag but in the Holly catheter tubing he has aliyah bloody hematuria, from the penile head, he is circumcised he has aliyah mucopurulent discharge foul-smelling, the head of the penis is quite erythematous, swollen, with mucopurulent discharge around and behind the head of the penis, with erythema extending around the shaft of the penis, erythema is also along the perineum, and the testicles, but no significant pain when here when the perineum and the testicles are palpated, no pain relief upon lifting testicles, they are both equally descended, he does have erythema, does have pain along pubic wound, does have erythema and tenderness, upon palpation of lymph nodes at the base of the penis, along the pubic bone, -I have requested ER physician to order CT scan abdomen pelvis to evaluate for possible underlying abscess -Holly catheter will be removed, as it is a source of infection currently, with cultures of the urine -It does not have the appearance of Liu's gangrene in terms of the perineum, and of the scrotum, however we will see what the CT scan shows with IV contrast -Nonetheless patient is going need IV antibiotics, meropenem, vancomycin ? Will see what CT scan abdomen pelvis shows, patient might need be transferred for urology evaluation ? Will likely remove Holly catheter based upon CAT scan findings Review of Systems 2 Const: Denies: fever(s) Card: Denies: chest pain Resp: Denies: dyspnea : Reports: hematuria, genital pain and penile discharge Medications/Allergies Home Medications Medication Instructions Recorded Confirmed Last Taken Type oxycodone-acetaminophen 5 mg-325 0.5 - 1 tab PO Q4H PRN Pain 07/15/22 09/21/23 08/31/23 History mg tablet cyanocobalamin (vitamin B-12) 1,000 mcg PO DAILY 08/25/22 09/21/23 08/31/23 History 1,000 mcg tablet (Vitamin B-12) tramadol 50 mg tablet 50 mg PO Q6H PRN Pain, Mild 12/29/22 09/21/23 05/02/23 History Cruthes #1 ea 05/11/23 09/21/23 Unknown Rx vit B,C-folic ac 800 mcg-zinc 12.5 1 tab PO BEDTIME 05/15/23 09/21/23 08/30/23 History mg-selen-D3 2,000 unit-vit E tablet (RenaPlex-D) albuterol sulfate 90 mcg/actuation 1 inh inhalation QID PRN shortness 06/01/23 09/21/23 Unknown Rx aerosol inhaler (Ventolin HFA) of breath or wheezing #8.5 grams budesonide 0.5 mg/2 mL suspension 0.5 mg (2 mL) inhalation BID #60 mL 06/01/23 09/21/23 08/31/23 Rx for nebulization budesonide-formoterol HFA 80 2 puff inhalation BID PRN unknown 06/01/23 09/21/23 Unknown Rx mcg-4.5 mcg/actuation aerosol #10.2 grams inhaler (Symbicort) bumetanide 2 mg tablet 2 mg PO BID #180 tabs 06/01/23 09/21/23 08/31/23 Rx escitalopram oxalate 10 mg tablet 10 mg PO QAM #90 tabs 06/01/23 09/21/23 08/31/23 Rx (Lexapro) fluticasone propionate 50 2 spray intranasal DAILY PRN 06/01/23 09/21/23 Unknown Rx mcg/actuation nasal Allergy Symptoms #16 grams spray,suspension ipratropium 0.5 mg-albuterol 3 mg 3 ml inhalation Q6H Shortness Of 06/01/23 09/21/23 08/16/23 Rx (2.5 mg base)/3 mL nebulization Breath #180 mL soln isosorbide mononitrate 30 mg 30 mg PO DAILY #90 tabs 06/01/23 09/21/23 08/31/23 Rx tablet,extended release 24 hr nitroglycerin 2.5 mg 2.5 mg PO DAILY PRN chest 06/01/23 09/21/23 08/27/23 Rx capsule,extended release tightness #30 caps ropinirole 2 mg tablet 2 mg PO BEDTIME #90 tabs 06/01/23 09/21/23 08/30/23 Rx Diabetic shoes #1 ea 06/04/23 09/21/23 Unknown Rx four point rollaid with chair #1 ea 06/04/23 09/21/23 Unknown Rx nebulizer #1 ea 06/04/23 09/21/23 Unknown Rx nebulizer supplies (hose, mask,ect) #1 ea 06/04/23 09/21/23 Unknown Rx oxygen concentrator #1 ea 06/04/23 09/21/23 Unknown Rx shower chair #1 ea 06/04/23 09/21/23 Unknown Rx toiler riser with handles #1 ea 06/04/23 09/21/23 Unknown Rx [place] #1 ea 06/17/23 09/21/23 Unknown Rx acetaminophen 325 mg tablet 650 mg PO Q6H PRN PAIN OR 08/16/23 09/21/23 Unknown History INCREASED TEMP bisacodyl 10 mg rectal suppository See Rx Instructions .Route 08/16/23 09/21/23 Unknown History .COMPLEX PRN Constipation doxycycline hyclate 100 mg capsule 100 mg PO DAILY 08/16/23 09/21/23 08/31/23 History ondansetron HCl 8 mg tablet 8 mg PO Q6H PRN Nausea 08/16/23 09/21/23 08/29/23 History amiodarone 200 mg tablet 200 mg PO BEDTIME 08/31/23 09/21/23 Unknown History metolazone 5 mg tablet 5 mg PO DAILY 08/31/23 09/21/23 08/31/23 History hydralazine 50 mg tablet 25 mg (1/2 x 50 mg) PO BID #60 tabs 09/02/23 09/21/23 08/31/23 Rx pantoprazole 40 mg tablet,delayed 40 mg PO Q12H 30 days #60 tabs 09/02/23 09/21/23 08/30/23 Rx release Allergies Allergy/AdvReac Type Severity Reaction Status Date / Time latex Allergy Mild Blisters Verified 10/11/23 15:25 petrolatum,white Allergy Mild Blisters Verified 10/11/23 15:25 [From A and D Barrier] amlodipine Allergy Unknown Verified 10/11/23 15:25 PFSH Acute 2 PFSH: Medical History ESRD (end stage renal disease) Acute exacerbation of congestive heart failure Bradycardia Hyperkalemia ESRD (end stage renal disease) on dialysis Acute hyperkalemia NSTEMI (non-ST elevated myocardial infarction) Chest pain Atrial fibrillation Moderate to severe mitral regurgitation Chronic pain Chronic GI bleeding Hiatal hernia High risk medication use Chronic anemia COPD (chronic obstructive pulmonary disease) Severe tobacco use disorder ESRD on hemodialysis History of renal dialysis Chronic kidney disease 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 Intermittent palpitations Hyperlipidemia Hypertension XI (obstructive sleep apnea) DJD (degenerative joint disease) Atrial flutter PVD (peripheral vascular disease) Diabetes Surgical History 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 H/O aortic valve replacement with tissue graft H/O aortic valve replacement H/O foot surgery Family History Grandmother Diabetes Grandfather Diabetes Denies family history of CAD (coronary artery disease) Clotting disorder Dementia Chronic kidney disease (CKD) Suicide Anesthesia complication Bleeding disorder Lung disease Cancer Stroke Social History Smoking and tobacco/nicotine status: former use of tobacco/nicotine Alcohol intake: never Substance/Drug Use: never Lives independently: Yes (with girlfriend) Household members: significant other Marital status: Single service: No 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al status: disabled 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 Pets and animals: Yes Special araceli needs: No Agree to transfusion: Yes Vitals/I&O/Wt Last Vital Signs Temp 98.1 F 10/11/23 15:15 Pulse 107 H 10/11/23 15:39 Resp 18 10/11/23 15:39 BP 97/58 10/11/23 15:39 Pulse Ox 98 10/11/23 15:39 O2 Del Method Nasal Cannula 10/11/23 15:39 O2 Flow Rate 3 10/11/23 15:15 Weight last 48 hrs Weight 126 kg Physical Exam 2 Const: COMMON NORMALS: no acute distress ORIENTATION/CONSCIOUSNESS: Yes awake, Yes oriented to person and Yes oriented to place HENMT: COMMON NORMALS: normocephalic HEAD & SCALP: normocephalic Eye: COMMON NORMALS: Equal, round and reactive pupils present Neck/C-Spine: COMMON NORMALS: no JVD Resp: COMMON NORMALS: normal respiratory effort, No retractions, No use of accessory muscles and clear to auscultation bilaterally AUSCULTATION: clear to auscultation bilaterally Cardio: COMMON NORMALS: regular rate, regular rhythm, S1 normal heart sound present and S2 normal heart sound present RATE: regular rate RHYTHM: r egular rhythm HEART SOUNDS: S1 normal heart sound present and S2 normal heart sound present GI: COMMON NORMALS: Normal to inspection, nondistended, normoactive bowel sounds present, Soft to palpation and non-tender : OTHER: Penis examination, head of the penis, erythematous, swollen, tender with new goal purulent drainage around the head of the penis, behind the penile head, with purulent drainage coming from urethra exquisite tenderness, throughout the shaft of the penis, noted some erythema, of the scrotum, no testicular tenderness to examination, no perineal tenderness, but does have erythema, swelling of testicles, of perineal area, Holly catheter in place, with hematuria Extremity: COMMON NORMALS: no calf tenderness and no pedal edema Neuro: COMMON NORMALS: patient oriented x3 Psych: COMMON NORMALS: mental status grossly normal Skin: NARRATIVE SKIN EXAM: 2 areas sacral DTI's, stage II, with baljinder rounding erythema, largest measuring 1 x 1 cm Data 10/11/23 13:45 10/11/23 13:45 A&P Assessment and plan (1) UTI (urinary tract infection): (2) Penile discharge: (3) Balanoposthitis: (4) Complication of Holly catheter: (5) Holly catheter in place on admission: Plan Urinary tract infection, with Holly catheter in place, with concern for penile discharge,balanoposthitis, with erythema extending down the penile shaft, involving the scrotum although no tenderness, erythema along the perineum, along the inner thighs, concerning for deep tissue infection ? Plan ? For step CT scan abdomen pelvis with IV contrast to evaluate for deep tissue infection ? Based upon results we will decide if patient can stay here at [facility] will be need to be transferred for urology evaluation ? Follow urine cultures ? Will order cultures of purulent drainage from penile head Missed dialysis, end-stage renal disease on dialysis ? Will consult nephrology for dialysis, although not urgently required he is on room air, he does have 2+ pitting edema but no significant electrolyte abnormalities, chest x-ray no fluid overload, Sacral DTI's, ? Continue repositioning Atrial fibrillation, not on anticoagulation COPD CHF CAD Full code Lovenox for DVT prophylaxis keep n.p.o. for now Attestations 2 Medical Necessity Statement*: Patient requires hospitalization, inpatient, greater than 2 midnights, for UTI, balanoposthitis, penile discharge, concerning for deeper infection, requiring further workup in the ER, decision will be made to either he patient here at [facility] or transfer to tertiary level center Coding Level of Care Code Acute Code for [facility] Fwd Diagnoses UTI (urinary tract infection) N39.0 Penile discharge R36.9 Balanoposthitis N47.6 Complication of Holly catheter T83.9XXA Holly catheter in place on admission Z97.8
[2023-10-11 17:47] LABS: Lactic Sepsis W/Reflex 3.3 mmol/L (0.5-2.2)
[2023-10-11 18:07] LABS: C Reactive Protein 83.1 mg/L (0.0-4.9)
[2023-10-11] MEDS: iohexol 350 mg/mL 500 mL Btl (per mL) IV (18:13)
[2023-10-11 18:14] LABS: Procalcitonin 0.57 ng/mL (0-0.5)
[2023-10-11] MEDS: meropenem 1,000 mg SDV 1000 MG IVP (18:16)
--- NOTE | 2023-10-11 18:25 | ECG_ITS ---
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 Measurements Intervals Ribera Rate: 103 P: 0 IN: 0 QRS: -62 QRSD: 152 T: 115 QT: 432 QTc: 566 Interpretive Statements UNCERTAIN REGULAR RHYTHM LEFT AXIS DEVIATION [QRS AXIS < -30] RIGHT BUNDLE BRANCH BLOCK [120+ ms QRS DURATION, UPRIGHT V1, 40+ ms S IN I/aVL/V4/V5/V6] POSSIBLE ANTERIOR MYOCARDIAL INFARCTION , PROBABLY OLD [30 ms Q WAVE IN V3/V4, OR R < 0.2 mV IN V4] CRITICAL TEST RESULT Compared to ECG 10/02/2023 22:47:03 Left-axis deviation now present Sinus tachycardia no longer present T-wave abnormality no longer present Possible ischemia no longer present Myocardial infarct finding still present Electronically Signed On 10-13-2023 6:25:15 CDT by Bertin Tierney M.D. [id number]
--- NOTE | 2023-10-11 18:29 | PC.NURSE ---
URBANO CATHETER REMOVED. SWABS COLLECTED. PATIENT TOLERATED PROCEDURE WELL.
[2023-10-11 19:07] LABS: INR 1.36 (0.8-1.2)
[2023-10-11 19:08] LABS: Reflex Lactate Order REFLEX LACTIC ORDERD
[2023-10-11 19:11] LABS: Erythrocyte Sedimentation Rate 36 mm/hr (0-10)
--- NOTE | 2023-10-11 19:14 | PC.NURSE ---
This nurse spoe to Dr. 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 Dr. Montes had spoken to Dr. Chapa. Orders placed. ER notified of physicians orders. Information verbalized to charge nurse JACOB Wade.
[2023-10-11 19:18] LABS: Troponin(5th) Baseline 308 ng/L (0-15)
[2023-10-11 19:21] LABS: Creatine Phosphokinase 185 U/L (39-308)
[2023-10-11 19:37] LABS: NT Pro B Type Natriuretic Pept > 70000 pg/mL (0-125)
--- OUTSIDE RECORDS SUMMARY | 2023-10-11 21:26 | XMS_ITS | Patient Health Record ---
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 Production Welder Name Role Phone Sulma Zavala Primary Care Provider SILVA Coles Unavailable [phone] DASHAWN TORRES Unavailable [phone] Allergies Allergen (clinical drug ingredient) Drug/Non Drug Allergy documented on EMR Reaction Allergy Type Onset Date Status amlodipine amLODIPine Besylate Unknown Drug Allergy Active Petrolatum Unknown Drug Allergy Active Latex Latex Unknown Allergy Active Reason For Referral No Information Medications Medication SIG (Take, Route, Frequency, Duration) Notes Start Date End Date Status Nitroglycerin Active Bumetanide 2 MG 1 tablet Orally Once a day Active Metoprolol Tartrate 25 MG 1 tablet with food Orally Twice a day Active Budesonide Active metOLazone 5 MG 1 tablet Orally Once a day Active Bisacodyl 5 MG 1 tablet as needed Orally Once a day Active Tylenol 325 MG 1 tablet as needed Orally every 6 hrs Active Isosorbide Mononitrate 20 MG 1 tablet Or ally Twice a day Active traMADol HCl 50 MG 1 tablet as needed Orally Once a day Active Albuterol Sulfate Ac tive Ipratropium-Albuterol 0.5-2.5 (3) MG/3ML 3 mL as needed Inhalation every 6 hrs Active Tamsulosin HCl 0.4 MG 1 capsule Orally O nce a day Active Sucralfate 1 GM 1 tablet on an empty stomach Orally Twice a day Active hydrALAZINE HCl 25 MG 1 tablet with food Orally Twice a day Active rOPINIRole HCl 2 MG 1 tablet 1 to 3 hour s before bedtime Orally Once a day Active Fosrenol 500 MG 1 tablet with meals Orally Three times a day Active RenaPlex - as directed Orally Active Fluticasone Propionate Active Pantoprazole Sodium 40 MG 1 tablet Orall y Once a day Active Escitalopram Oxalate 10 MG 1 tablet Oral ly Once a day Active oxyCODONE-Acetaminophen 5-325 MG 1 tablet as needed Orally every 6 hrs Active Doxycycline Hyclate 100 MG 1 capsule Ora lly Once a day Active Ondansetron HCl 8 MG 1 tablet as needed Orally Once a day Active Calmoseptine 0.44-20.6 % as directed Externally Active Social History Tobacco Use: Social History Observation Description Date Details (start date - stop date) Former Smoker NA - NA Tobacco Control (Standard) Question Answer Notes Tobacco use: Former smoker How long has it been since you last smoked? Less than 1 month Problems Problem Type SNOMED Code ICD Code Onset Dates Problem Status W/U Status Risk Notes Problem End stage renal disease (67253048) End stage renal disease (N18.6) Active confirmed Problem Disorder of penis (74619612) Penile edema (N48.89) Active confirmed Problem Dependence on renal dialysis (616658414) Dialysis patient (Z99.2) Active confirmed Vital Signs Heart Rate 98 /min 09/30/2023 Height-cm 170.18 cm 09/30/2023 Blood pressure diastolic 62 mm Hg 09/30/2023 Weight-kg 122.47 kg 09/30/2023 Height 67 in 09/30/2023 Blood pressure systolic 90 mm Hg 09/30/2023 Weight 270 lbs 09/30/2023 BMI 42.28 kg/m2 09/30/2023 Procedures Procedure Date Ordered Date Performed Result Body Sit e Voiding Trial 09/30/2023 09/30/2023 N/A Encounters Encounter Location Date Provider Diagnosis [facility] [address] [place] [address] 09/30/2023 SILVA GAMEZ Acute urinary retention R33.8 ; Scrotal edema N50.89 ; Penile edema N48.89 ; End stage renal disease N18.6 ; Dialysis patient Z99.2 and Catheter (urine) change required Z46.6 [facility] [address] [place] [address] 09/21/2023 DASHAWN TORRES Assessments Encounter Date Diagnosis (ICD Code) Assessment Notes Treatment Notes Treatment Clinical Notes 09/30/2023 Scrotal edema (ICD-10 - N50.89) 09/30/2023 Acute urinary retention (ICD-10 - R33.8) 09/30/2023 Penile edema (ICD-10 - N48.89) 09/30/2023 End stage renal disease (ICD-10 - N18.6) 09/30/2023 Dialysis patient (ICD-10 - Z99.2) 09/30/2023 Catheter (urine) change required (ICD-10 - Z46.6) Plan Of Treatment Next Appt Details Provider Name:SILVA Edilia ACOSTA, 10/28/2023 11:20:00 AM, [address] [place], [address], Insurance Providers Payer Name Payer Address Payer Phone Subscriber Number Group Number Insured Name Patient Relationship to Insured Coverage Start Date Coverage End Date [facility] [address] [address] [place], [place] [phone] [id number] Richard Huffman Self - patient is the insured Medical (General) History Medical History History ICD Code congestive heart failure End Stage Renal Disease Dependance on dialysis COPD XI atrial fibrillation hypertension NSTEMI coronary artery disease endocarditis anemia Type II DM depression anxiety restless leg syndrome scrotal cellulitis GERD Hernia Surgical History Surgery Date(Month/Year) right foot 1996 heart 2016 heart 2016
--- OUTSIDE RECORDS SUMMARY | 2023-10-11 21:26 | XMS_ITS ---
Author Name Unknown Organization [facility] Address [address] [place] [address] Care Team Providers Care Budget Clerk Name Role Phone Sulma Zavala Primary Care Provider SILVA Coles Unavailable [phone] DASHAWN TORRES [phone] REASON FOR VISIT Referral Encounters Encounter Location Date Provider Diagnosis [facility] [address] [place] [facility] [place] [address] 09/21/2023 DASHAWN TORRES Plan Of Treatment Next Appt Details Provider Name:SILVA GARCIA NS, 10/28/2023 11:20:00 AM, [address] [place], [address], Progress Notes * Stanley ROBERSONaneDOB:1960 ([age] yo M)Acc No.[id number]:09/21/2023 Patient:?DARichard :1960???Age:63 Y???Sex:Male Address:[address], [place], [address] * true * Date:? Generated for Printi ng/Ken/eTransmitting on:?10/11/2023 09:25 PM CDT
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
--- OUTSIDE RECORDS SUMMARY | 2023-10-11 21:26 | XMS_ITS ---
Author Name Unknown Organization [facility] Address [address] [place] [address] Care Team Providers Care Environmental Sampling Technician Name Role Phone Sulma Zavala Primary Care Provider SILVA Coles Unavailable [phone] Allergies Allergen (clinical drug ingredient) Drug/Non Drug Allergy documented on EMR Reaction Allergy Type Onset Date Status amlodipine amLODIPine Besylate Unknown Drug Allergy Active Petrolatum Unknown Drug Allergy Active Latex Latex Unknown Allergy Active REASON FOR VISIT Retention/VT Medications Medication SIG (Take, Route, Frequency, Duration) Notes Start Date End Date Status Ondansetron HCl 8 MG 1 tablet as needed Orally Once a day Active Nitroglycerin Active Metoprolol Tartrate 25 MG 1 tablet with food Orally Twice a day Active metOLazone 5 MG 1 tablet Orally Once a day Active Isosorbide Mononitrate 20 MG 1 tablet Or ally Twice a day Active Sucralfate 1 GM 1 tablet on an empty stomach Orally Twice a day Active rOPINIRole HCl 2 MG 1 tablet 1 to 3 hour s before bedtime Orally Once a day Active RenaPlex - as directed Orally Active Pantoprazole Sodium 40 MG 1 tablet Orall y Once a day Active oxyCODONE-Acetaminophen 5-325 MG 1 tablet as needed Orally every 6 hrs Active Albuterol Sulfate Ac tive Tamsulosin HCl 0.4 MG 1 capsule Orally O nce a day Active Bisacodyl 5 MG 1 tablet as needed Orally Once a day Active Tylenol 325 MG 1 tablet as needed Orally every 6 hrs Active traMADol HCl 50 MG 1 tablet as needed Orally Once a day Active Escitalopram Oxalate 10 MG 1 tablet Oral ly Once a day Active Doxycycline Hyclate 100 MG 1 capsule Ora lly Once a day Active Calmoseptine 0.44-20.6 % as directed Externally Active Bumetanide 2 MG 1 tablet Orally Once a day Active Budesonide Active Ipratropium-Albuterol 0.5-2.5 (3) MG/3ML 3 mL as needed Inhalation every 6 hrs Active hydrALAZINE HCl 25 MG 1 tablet with food Orally Twice a day Active Fosrenol 500 MG 1 tablet with meals Orally Three times a day Active Fluticasone Propionate Active Social History Tobacco Use: Social History Observation Description Date Details (start date - stop date) Former Smoker NA - NA Tobacco Control (Standard) Question Answer Notes Tobacco use: Former smoker How long has it been since you last smoked? Less than 1 month Problems Problem Type SNOMED Code ICD Code Onset Dates Problem Status W/U Status Risk Notes Problem Disorder of penis (17850374) Penile edema (N48.89) Active confirmed Problem End stage renal disease (86079105) End stage renal disease (N18.6) Active confirmed Problem Dependence on renal dialysis (879330633) Dialysis patient (Z99.2) Active confirmed Vital Signs Blood pressure systolic 90 mm Hg 09/30/19 24 Blood pressure diastolic 62 mm Hg 024 Heart Rate 98 /min 09/30/2023 Height 67 in 09/30/2023 Weight 270 lbs 09/30/2023 BMI 42.28 kg/m2 09/30/2023 Height-cm 170.18 cm 09/30/2023 Weight-kg 122.47 kg 09/30/2023 Procedures Procedure Date Ordered Date Performed Result Body Sit e Voiding Trial 09/30/2023 09/30/2023 N/A Encounters Encounter Location Date Provider Diagnosis [facility] [address] [place] [address] 09/30/2023 SILVA GAMEZ Acute urinary retention R33.8 ; Scrotal edema N50.89 ; Penile edema N48.89 ; End stage renal disease N18.6 ; Dialysis patient Z99.2 and Catheter (urine) change required Z46.6 Assessments Encounter Date Diagnosis (ICD Code) Assessment Notes Treatment Notes Treatment Clinical Notes 09/30/2023 Acute urinary retention (ICD-10 - R33.8) 09/30/2023 Scrotal edema (ICD-10 - N50.89) 09/30/2023 Penile edema (ICD-10 - N48.89) 09/30/2023 End stage renal disease (ICD-10 - N18.6) 09/30/2023 Dialysis patient (ICD-10 - Z99.2) 09/30/2023 Catheter (urine) change required (ICD-10 - Z46.6) Plan Of Treatment Next Appt Details Follow Up: 3-4w with UA/PVR, Reason: Provider Name:SILVA ACOSTA, 10/28/2023 11:20:00 AM, [address] [place], [address], Progress Notes * Richard ROBERSON RDOB:1960 (63 yo M)Acc No.[id number]:09/30/2023 Patient:?DA Richard R Provider:?Silva Gamez APRN :1960???Age:63 Y???Sex:Male Julian e:09/30/2023 Address:[address] [place] [address] Pcp:Sulma Zavala Subjective: * Chief Complaints: * ???Retention/VT * HPI: ???:?Pt is a 63yoM with a h/o CAD, PVD, DM, HTN, HLPD, Afib, COPD ESRD on HD. He resides in a group home facility. He is here today with c/o urinary retention. He is on dialysis and states that for the last month, he has had increasing edema up to this waist with significant? penile and scrotal edema. He still typically voids 3-4 times daily. He could not void on Wednesday and went to [facility] ER and?had white placed on Wednesday09/26/23. He is on tamsulosin. He denies any prior urologic history. He denies any LUTS at baseline. He did not fill out IPSS form because his urination varies so much with his ESRD and fluid volume status, but no urinary complaints at baseline. He is unsure of prostate cancer screening in the past, but denies h/o elevated PSA. Denies family h/o malignancy. * ROS:?Please refer to patient intake ROS form. It has been reviewed and is accurate. . * Medical History:? * Surgical History:?right foot [id number] * Hospitalization/Major Diagno stic Procedure:?No Hospitalization History. * Family History:?Non-Contribu tory.? * Social History:?Tobacco Use:?Tobacco Control (Standard)?Tobacco use:?Former smoker,?How long has it been since you last smoked??Less than 1 month.? * Medications:?TakingTylenol 3 25 MG Tablet 1 tablet as needed Orally every 6 hrs traMADol HCl 50 MG Tablet 1 tablet as needed Orally Once a day Sucralfate 1 GM Tablet 1 tablet on an empty stomach Orally Twice a day rOPINIRole HCl 2 MG Tablet 1 tablet 1 to 3 hours before bedtime Orally Once a day RenaPlex - Tablet as directed Orally Pantoprazole Sodium 40 MG Tablet Delayed Release 1 tablet Orally Once a day oxyCODONE-Acetaminophen 5-325 MG Tablet 1 tablet as needed Orally every 6 hrs Ondansetron HCl 8 MG Tablet 1 tablet as needed Orally Once a day Nitroglycerin Metoprolol Tartrate 25 MG Tablet 1 tablet with food Orally Twice a day metOLazone 5 MG Tablet 1 tablet Orally Once a day Isosorbide Mononitrate 20 MG Tablet 1 tablet Orally Twice a day Ipratropium-Albuterol 0.5-2.5 (3) MG/3ML Solution 3 mL as needed Inhalation every 6 hrs hydrALAZINE HCl 25 MG Tablet 1 tablet with food Orally Twice a day Fosrenol 500 MG Tablet Chewable 1 tablet with meals Orally Three times a day Fluticasone Propionate Escitalopram Oxalate 10 MG Tablet 1 tablet Orally Once a day Doxycycline Hyclate 100 MG Capsule 1 capsule Orally Once a day Calmoseptine 0.44-20.6 % Ointment as directed Externally Bumetanide 2 MG Tablet 1 tablet Orally Once a day Budesonide Bisacodyl 5 MG Tablet Delayed Release 1 tablet as needed Orally Once a day Albuterol Sulfate Tamsulosin HCl 0.4 MG Capsule 1 capsule Orally Once a day Medication List reviewed and reconciled with the patientTaking Tylenol 325 MG Tablet 1 tablet as needed Orally every 6 hrs Taking traMADol HCl 50 MG Tablet 1 tablet as needed Orally Once a day Taking Sucralfate 1 GM Tablet 1 tablet on an empty stomach Orally Twice a day Taking rOPINIRole HCl 2 MG Tablet 1 tablet 1 to 3 hours before bedtime Orally Once a day Taking RenaPlex - Tablet as directed Orally Taking Pantoprazole Sodium 40 MG Tablet Delayed Release 1 tablet Orally Once a day Taking oxyCODONE-Acetaminophen 5-325 MG Tablet 1 tablet as needed Orally every 6 hrs Taking Ondansetron HCl 8 MG Tablet 1 tablet as needed Orally Once a day Taking Nitroglycerin Taking Metoprolol Tartrate 25 MG Tablet 1 tablet with food Orally Twice a day Taking metOLazone 5 MG Tablet 1 tablet Orally Once a day Taking Isosorbide Mononitrate 20 MG Tablet 1 tablet Orally Twice a day Taking Ipratropium-Albuterol 0.5-2.5 (3) MG/3ML Solution 3 mL as needed Inhalation every 6 hrs Taking hydrALAZINE HCl 25 MG Tablet 1 tablet with food Orally Twice a day Taking Fosrenol 500 MG Tablet Chewable 1 tablet with meals Orally Three times a day Taking Fluticasone Propionate Taking Escitalopram Oxalate 10 MG Tablet 1 tablet Orally Once a day Taking Doxycycline Hyclate 100 MG Capsule 1 capsule Orally Once a day Taking Calmoseptine 0.44-20.6 % Ointment as directed Externally Taking Bumetanide 2 MG Tablet 1 tablet Orally Once a day Taking Budesonide Taking Bisacodyl 5 MG Tablet Delayed Release 1 tablet as needed Orally Once a day Taking Albuterol Sulfate Taking Tamsulosin HCl 0.4 MG Capsule 1 capsule Orally Once a day Medication List reviewed and reconciled with the patient * Allergies:?LatexamLODIPine B esylatePetrolatumno[Allergies Verified] Objective: * Vitals:?BP:90/62mm Hg, HR:98 /min, Wt:270lbs, Wt-k.47 kg, Ht: 67 in, Ht-cm: 170.18 cm, BMI:42.28Index, Body Surface Area: 2.4. * Examination: ???General Examination: ?General appearance:?chronically ill-appearing WM who also appears older than stated age, in wheelchair, NAD.?Head:?normocephalic, atraumatic.?Eyes:?PERRL, EOMI.?Heart:?HR regular, 4+ LE pitting edema up to entire length of leg.?Chest:?resp even and nonlabored, pt on continuous 02 via NC.?Abdomen:?soft, NT, ND.?Female genitourinary:?No CVAT, No SPT, genital exam deferred.?Male genitourinary:?buried penis with significant scrotal edema consistent with fluid third-spacing, no s/s of infection or cellulitis.?Musculoskeletal:?generalized weakness, in wheelchair.?Neurologic:?nonfocal.?Psych:?normal affect / mood?with good judgement and insight.? Assessment: * Assessment: 1.?Acute urinary retention - R33.8 (Primary)???2.?Scrotal edema - N50.89???3.?Penile edema - N48.89???4.?End stage renal disease - N18.6???5.?Dialysis patient - Z99.2???6.?Catheter (urine) change required - Z46.6??? Pt with ESRD on HD who is cu rrenty fluid overloaded with significant edema extending from his LE up to his midabdomen including his penis and scrotum. No s/s of cellulitis or infection. His BP is low today but they pulled off 5L in dialysis yesterday and he is on increased diuretics. I recommended he keep white in place until his genital edema has improved. He is insistent that we try to remove today. Will perform v/t. if he passes, then RTC in 3-4w with UA/PVR. If it has to be replaced, then keep in place for the next 3w and will reassess. Plan: * Treatment: * Procedure Codes:?77131 IRRIG ATION OF BLADDER * Follow Up:?3-4w with UA/PVR * Billing Information: * Visit Code:? 81798 Office Visit, New Pt., Level 4. Modifiers: 25 * Procedure Codes:? 55221 IRRIGATION OF BLADDER. * Sign off status: Completed true * Provider:Nimesh Gamez APRN Date:? Generated for Yoana garcia/Ken/Vonnieitting on:?10/11/2023 09:25 PM CDT History and Physical Notes * Examination Category Sub-Category Detail Notes General Examination General appearance: chronica lly ill-appearing WM who also appears older than stated age, in wheelchair, NAD Head: normocephalic, atrau matic Eyes: PERRL, EOMI Heart: HR regular, 4+ LE pi tting edema up to entire length of leg Chest: resp even and nonlab ored, pt on continuous 02 via NC Abdomen: soft, NT, ND Neurologic: nonfocal Musculoskeletal: generalized weakness , in wheelchair Male genitourinary: buried penis with si gnificant scrotal edema consistent with fluid third-spacing, no s/s of infection or cellulitis Psych: normal affect / mood with good judgement and insight Female genitourinary: No CVAT, No SPT, g enital exam deferred
--- OUTSIDE RECORDS SUMMARY | 2023-10-11 21:26 | XMS_ITS ---
Author Name Unknown Organization [facility] Address [address] [place] [address] Care Team Providers Care Scientific Helper Name Role Phone Abimael HERNDON, Christofer Primary Care Provider Unavailab Maximiliano Ann [facility] [phone] REASON FOR VISIT Gastrointestinal Hemorrhage, Diaphragmatic hernia w/o obstruction Encounters Encounter Location Date Provider Diagnosis [facility] [address] [place] [address] 06/08/2023 Maximiliano Forbes Plan Of Treatment No Information Progress Notes * Ofe ROBERSONOB:1960 ([age] yo M)Acc No.[id number]:06/08/2023 Progress Notes Patient:?Richard ROBERSON Provider:?Maximiliano Forbes MD :1960???Age:62 Y???Sex:Male Jluian e:06/08/2023 Address[address] Pcp:Christofer Varghese MD Subjective: * Chief Complaints: * ???1. Gastrointestinal Hemor rhage, Diaphragmatic hernia w/o obstruction. * Medical History:? Objective: * Vitals:? Assessment: Plan: * Treatment: Care Plan: * Problems:? * Billing Information: * Visit Code:? * Procedure Codes:? * Electronic signature of Will dean Forbes MD on 10/11/2023 at 09:26 PM CDT Sign off status: Pending * Provider:?Maximiliano Forbes MD Date:? 024 Generated for Printi ng/Faxing/eTransmitting on:?10/11/2023 09:26 PM CDT
--- OUTSIDE RECORDS SUMMARY | 2023-10-11 21:26 | XMS_ITS | Patient Health Record ---
Author Name Unknown Organization [facility] Address [address] [place] [address] Care Team Providers Care Logging Worker Name Role Phone Abimael HERNDON, Christofer Primary Care Provider Daren Maximiliano Ann [facility] [phone] Reason For Referral Reason Gastrointestinal Hem orrhage, Diaphragmatic hernia w/o obstruction Appt 06/07-Pt was a No Show Referring Provider First Name Christofer Referring Provider Last Name Abimael Referring Provider Speciality Family Med icine Referred Organization [facility] Referred Provider Gastroenterology [facility] Referred Address [address] ,[facility] [place], [place],[address], Referred Provider Specialty Gastroentero logy General Notes Rona Mata 03/18 02:22:05 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
--- OUTSIDE RECORDS SUMMARY | 2023-10-11 21:26 | XMS_ITS ---
Author Name Unknown Organization [facility] Address [address] [place], [place] [id number] Care Team Providers Care Test Engineering Intern Name Role Phone Sally HERNDON, Sulma Primary Care Provider Unava nik Nava MD, Alonso Unavailable [phone] Sarmad Mclaughlin MD Unavailable Unavailable Feli Cano Unavailable [phone] ALLERGIES Allergen (clinical drug ingredient) Drug/Non Drug Allergy documented on EMR Reaction Allergy Type Onset Date Status Latex latex (uncoded) Unknown Allergy Acti ve vitamin b and d ointment (uncoded) Unknown Allergy Active amlodipine amlodipine Unknown Drug Allergy Activ e REASON FOR VISIT Patient states he is here today for follow up {low back pain} MEDICATIONS Medication SIG (Take, [...] hold within 4H of planned sleep) Active metoprolol 50 mg 1 tab orally once a day Active rOPINIRole 1 mg 1 tab(s) orally once a day Active RenaPlex-D Vitamin B Complex with C,D,E, Folic Acid, Selenium and Zinc 1 tab(s) orally once a day Active SOCIAL HISTORY Tobacco Use: Social History [...] you start smoking? 1974 VITAL SIGNS Temperature 97.7 degrees Fahrenheit 01/27/20 23 Height 69 in 01/26/2023 Weight 235.6 lbs 01/26/2023 Oximetry 94 % 01/26/2023 BMI 34.79 kg/m2 01/26/2023 Encounters Encounter Location Date Provider Diagnosis [facility] [id number] [place], [place] [id number] 01/26/2023 Feli Delacruz Vertebrogenic low ba ck pain M54.51 ; Other chronic pain G89.29 and Obstructive sleep apnea (adult) (pediatric) G47.33 ASSESSMENTS Encounter Date Diagnosis Assessment Notes Treatment Notes Treatment Clinical Notes 01/26/2023 Vertebrogenic low back pain (ICD-10 - M54.51) Chronic axial lumbosacral spine pain. 01/26/2023 Other chronic pain (ICD-10 - G89.29) Patient reports that taking his pain medication allows him to spend time with his grand kids. Patient has been deemed a poor interventional spine treatment candidate for multiple reasons. Plan to continue oral opioid medication management. Plan opioid taper with next refills. 01/26/2023 Obstructive sleep apnea (adult) (pediatric) (ICD-10 - G47.33) Patient with history of inability to tolerate CPAP. Patient reports seeing Dr. Mckinney, pulmonology. Pulmonary work up in progress including PFTs and sleep study per patient report. Patient has also reported of a spot on his lung with discussion of a possible biopsy (all on hold at this time). 01/26/2023 Other Patient to call for next office visit. Plan opioid taper at that time. PLAN OF TREATMENT Medication Medication Name Sig [...] back pain Chronic axia l lumbosacral spine pain. Other chronic pain Patient reports that taking his pain medication allows him to spend time with his grand kids. Patient has been deemed a poor interventional spine treatment candidate for multiple reasons. Plan to continue oral opioid medication management. Plan opioid taper with next refills. Obstructive sleep apnea (barrett lt) (pediatric) Patient with history of inability to tolerate CPAP. Patient reports seeing Dr. Mckinney, pulmonology. Pulmonary work up in progress including PFTs and sleep study per patient report. Patient has also reported of a spot on his lung with discussion of a possible biopsy (all on hold at this time). Other Patient to call for next office visit. Plan opioid taper at that time. Next Appt Details Follow Up: 4 week Rx visit a s needed., Reason: History and Physical Notes * HPI [...] aching. The back pain is aggravated by bending and standing > 10 minutes. This pain is somewhat alleviated with rest and sitting down radiation of pain previous surgery: weakness in the BLE Medications Percocet (oxycodone / acetaminop hen) 325 mg-5 mg, 1/2 - 1 tab po, orally, Q4-6H prn severe pain (max 1 1/2 per day; hold within 4H of planned sleep), 30 day(s), 45, Refills 0. Notes: Prescriptions given (3-months) on 08/20/22. Patient reports good benefit, as evidenced by improved ability to do laundry, clean house and wash dishes, with quantity 11 and 2 eRx remaining that on 02/19/23. Last fill date: 09/22/22 tramadol (Ultram) 50 mg, 1 tab po, ora lly, Q4-6H prn pain (max 1 per day; hold within 4H of planned sleep), 30 day(s), 30, Refills 2 (last prescribed 08/20/22). Patient reports good benefit, as evidenced by improved ability to do laundry, clean house and wash dishes, with quantity 4 remaining and 2 refills that on 02/19/23. Last fill date: 09/22/22 aspirin is managed [...] weeks without benefit (2014); injections in lumbar region, performed in [place], [place], without benefit (2014) Medication history: tramadol 50 mg QID; [place] 5/325 (good benefit when combined with tramadol [...]
--- OUTSIDE RECORDS SUMMARY | 2023-10-11 21:27 | XMS_ITS | Patient Health Record ---
Author Name Unknown Organization [facility] [employer] Address [address] [place], [place] [id number] Care Team Providers Care Automation Qa Analyst Name Role Phone Sally HERNDON, Sulma Primary Care Provider Unava nik Nava MD, Alonso Unavailable [phone] Arnoldo HERNDON, Sarmad Unavailable Unavailable Feli Cano Unavailable [phone] ALLERGIES Allergen (clinical drug ingredient) Drug/Non Drug [...] elsewhere classified (M46.1) Active confirmed Solitary sacroiliitis (977205950) Problem Low back pain (M54.5) Active confirmed Low back pain (015797344) Problem Spondylosis without myelopathy or radiculopathy, lumbar region (M47.816) Active confirmed Lumbosacral spondylosis without myelopathy (01061134) Problem 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 (Z79.891) Active confirmed High risk drug monitoring status (012766137) Problem Obstructive sleep apnea (adult) (pediatric) (G47.33) Active confirmed Obstructive sleep apnea syndrome (64279691) Problem Other chronic pain (G89.29) Active confirmed Chronic pain (01788743) Problem Other long term acute care registered nurse (current) drug therapy (Z79.899) Active confirmed Long-term current use of drug therapy (464817390) Problem Vertebrogenic low back pain (M54.51) Active confirmed Low back pain (finding) (162691842) VITAL SIGNS Temperature 97.7 degrees Fahrenheit 01/26/2023 Oximetry 94 % 01/26/2023 Height 69 in 01/26/2023 Weight 235.6 lbs 01/26/2023 BMI 34.79 kg/m2 01/26/2023 Encounters Encounter Location Date [facility] [address] [place], [place] [id number] 11/12/2022 Feli Delacruz Vertebrogenic low ba ck pain M54.51 ; Other chronic pain G89.29 and Obstructive sleep apnea (adult) (pediatric) G47.33 [facility] [address] [place], [place] [phone] 01/26/2023 Feli Delacruz Vertebrogenic low ba ck [...] management. Plan opioid taper with next refills. 11/12/2022 Obstructive sleep apnea (adult) (pediatric) (ICD-10 [...] Consider opioid taper at next visit 11/12/2022 Other 01/26/2023 Other Patient to call for next office visit. Plan opioid taper at that time. PLAN OF TREATMENT No Information Insurance Providers Payer Name Payer Address Payer Phone Subscriber Number Group Number Insured Name Patient Relationship to Insured Coverage Start Date Coverage End Date [facility] [address] [address] [place] [address] [phone] [id number] LarsStanley rinconane Self - patient is the insured MEDICAL [...] stone, 2002 Aortic valve replacement, performed at [facility], 10/03/16 Aortic valve replacement, performed at [facility], 02/22/17 Aortic valve replacement, performed at [facility] in [place], [place], 02/2022 Hospitalization History Reason Date(Month/Year) Infection, treated at [facility], 10/2016 Infection, treated at [facility], 01/01/17 Pneumonia, treated at [facility], 06/2022 Heart related, treated at [facility], 11/01/22
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
[2023-10-11] MEDS: pantoprazole DR 40 mg Tablet PO (23:03)
[2023-10-11] MEDS: heparin 5,000 unit/mL INJ 1 mL 5000 UNIT SUBCUT (23:03)
[2023-10-11] MEDS: midodrine 5 mg TABLET 10 MG PO (23:03)
[2023-10-11] MEDS: amiodarone 200 mg Tablet PO (23:03)
[2023-10-11] MEDS: ropinirole 2 mg Tablet PO (23:04)
[2023-10-11] MEDS: sodium chloride 0.9% 1,000 ML 75 ML IV (23:04)
[2023-10-11] MEDS: vancomycin 1,000 MG in sodium chloride 0.9% 250 ML 250 MG IV (23:31)
[2023-10-11 23:55] LABS: Thyroid Stimulating Hormone 4.81 uIU/mL (0.27-4.20)
--- NOTE | 2023-10-11 23:56 | ECG_ITS ---
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 Measurements Intervals [place] Rate: 100 P: 213 AR: 194 QRS: -58 QRSD: 151 T: 132 QT: 440 QTc: 569 Interpretive Statements Possible sinus tachycardia with a first-degree AV block LEFT AXIS DEVIATION [QRS AXIS < -30] RIGHT BUNDLE BRANCH BLOCK [120+ ms QRS DURATION, UPRIGHT V1, 40+ ms S IN I/aVL/V4/V5/V6] Compared to ECG 10/11/2023 18:30:23 Myocardial infarct finding no longer present Electronically Signed On 10-13-2023 6:32:50 CDT by Bertin Tierney M.D. [id number]
[2023-10-12] VITALS (48 sets, daily range): BP systolic 94–125; BP diastolic 58–92; PULSE 79–106; RESP 0–34; TEMP 35.9–36.8; O2SAT 93–100; BMI 39.4
[2023-10-12 00:01] LABS: Troponin 5 2HR 381.5 ng/L (0-15); Troponin 5 2HR Delta 73.5 ABS# (0-10)
[2023-10-12 00:18] LABS: Estmated Average Glucose 91; Hemoglobin A1C 4.8 % (4.0-6.0)
--- NOTE | 2023-10-12 00:36 | ECG_ITS ---
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 Measurements Intervals [place] Rate: 101 P: 0 [place]: 0 QRS: -60 QRSD: 153 T: 133 QT: 435 QTc: 564 Interpretive Statements Possible sinus tach with first-degree AV block LEFT AXIS DEVIATION [QRS AXIS < -30] RIGHT BUNDLE BRANCH BLOCK [120+ ms QRS DURATION, UPRIGHT V1, 40+ ms S IN I/aVL/V4/V5/V6] CRITICAL TEST RESULT Compared to ECG 10/11/2023 23:56:31 Sinus tachycardia no longer present Electronically Signed On 10-13-2023 6:34:13 CDT by Bertin Tierney M.D. [id number]
[2023-10-12 00:54] LABS: Troponin 5 6HR 350.2 ng/L (0-15); Troponin 5 6HR Delta 42.2 ng/L (0-12)
[2023-10-12 05:31] LABS: Basophils # 0.1 10^3/uL (0.0-0.1); Basophils % 0.8 %; Eosinophils # 0.1 10^3/uL (0.0-0.8); Eosinophils % 0.9 %; Hematocrit 33.1 % (37-53); Lymphocytes % 15.4 %; Mean Corpuscular HGB Conc 31.4 g/dL (30-55); Mean Corpuscular Hemoglobin 31.2 pg (27-33); Mean Corpuscular Volume 99.4 fl (82-101); Mean Platelet Volume 10.1 fL (7.4-10.4); Monocytes # 0.8 10^3/uL (0.2-0.9); Monocytes % 11.8 %; Neutrophils # 4.63 10^3/uL (1.8-7.7); Neutrophils % 70.8 %; Nucleated Red Blood Cells % 0 %; Platelet Count 116 10^3/cmm (157-399); Red Blood Count 3.33 10^6/uL (3.85-5.65); White Blood Count 6.54 10^3/uL (3.29-11.43)
--- NOTE | 2023-10-12 05:32 | PC.NURSE ---
PO meds, NPO: Dr. Ramos gave telephone orders to administer morning PO meds with NPO diet order and to do a bedside swallow evaluation.
[2023-10-12] MEDS: escitalopram 10 mg Tablet PO (05:40)
[2023-10-12] MEDS: meropenem 500 mg SDV IVP ×2 (05:40→18:29)
[2023-10-12] MEDS: midodrine 5 mg TABLET 10 MG PO ×3 (05:40→22:00)
[2023-10-12 05:51] LABS: Alanine Aminotransferase 16 U/L (0-41); Albumin Level 3.2 g/dL (3.5-5.2); Alkaline Phosphatase 304 U/L (40-130); Anion Gap 18.2 (5-19); Aspartate Amino Transferase 39 U/L (0-40); Blood Urea Nitrogen 32 mg/dL (8-23); Calcium 8.9 mg/dL (8.5-10.5); Carbon Dioxide 28 mmol/L (22-29); Chloride 90 mmol/L (98-107); Creatinine Clr Calc Pharmacy 18.3691; Globulin 2.7 g/dL (1.3-4.6); Glomerular Filtration Rate 10.4 mL/min (90-130); Glucose 106 mg/dL (65-115); Osmolality Calculated 283 mOsm/kg (285-295); Potassium 3.2 mmol/L (3.5-5.1); Sodium 133 mmol/L (136-145); Total Bilirubin 1.4 mg/dL (0.15-1.2); Total Protein 5.9 g/dL (6.6-8.7)
--- NOTE | 2023-10-12 07:44 | USCV_ITS ---
Richard Huffman Age: 63 Gender: M : 1960 Exam Date: 10/12/2023 13:40 Ordering Phys: Desean Montes MD Technologist: Exam [place] [facility] [place]: nstemi BP: 111 / 84 HR: 121 Rhythm: Sinus Technical Quality: Adequate MEASUREMENTS (Male / Female) Normal Values 2D ECHO LV Diastolic Diameter PLAX 4.9 cm 4.2 - 5.9 / 3.9 - 5.3 cm IVS Diastolic Thickness 1.2 cm 0.6 - 1.0 / 0.6 - 0.9 cm IVS Systolic Thickness 1.5 cm LVPW Diastolic Thickness 1.1 cm 0.6 - 1.0 / 0.6 - 0.9 cm LVPW Systolic Thickness 1.3 cm LV Ejection Fraction 2D Teich 56.0 % LV Ejection Fraction MOD 4C 57.7 % LV Ejection Fraction MOD 2C 63.4 % LV Ejection Fraction 2C AL 64.0 % LA Diameter 2.0 cm RA Systolic Volume 4C AL 76.8 ml RA Systolic Volume 4C MOD 69.9 ml M-MODE LA Ao Ratio MM 1.4 MV E Point Septal Separation 1.3 cm AV Cusp Separation MM 1.8 cm DOPPLER AV Peak Velocity 214.7 cm/s LVOT Peak Velocity 85.0 cm/s MV Peak Velocity 169.0 cm/s TV Peak Velocity 298.0 cm/s TR Peak Velocity 324.0 cm/s TR Peak Gradient 42.0 mmHg TV Peak E Velocity 90.0 cm/s Right Atrial Pressure 3.0 mmHg Pulmonary Artery Systolic Pressu 45.0 mmHg PV Peak Velocity 68.0 cm/s FINDINGS Left Ventricle Abnormal (paradoxical) septal motion consistent with postoperative status. Normal LV size with a slightly diminished ejection fraction 50%. Right Ventricle Diffuse hypokinesis of right ventricle with slightly diminished ejection fraction. Right Atrium Moderately increased right atrial size. Left Atrium Moderately increased left atrial size. Mitral Valve Thickened mitral valve. Possible mitral annular ring. At least moderate eccentric mitral regurgitation. Aortic Valve The bio prosthetic valve in the aortic position appears to be well-seated. Tricuspid Valve Mild tricuspid valve regurgitation. Pulmonic Valve Pulmonic valve not well visualized. Pericardium No pericardial effusion. Aorta Normal aortic annulus size. IVC Inferior vena cava not visualized. CONCLUSIONS Abnormal (paradoxical) septal motion consistent with postoperative status. Normal LV size with a slightly diminished ejection fraction 50%. Diffuse hypokinesis of right ventricle with slightly diminished ejection fraction. Moderately biatrial enlargement. The bio prosthetic valve in the aortic position appears to be well-seated. Thickened mitral valve. Possible mitral annular ring. At least moderate eccentric mitral regurgitation. The prosthetic valve in the aortic position appears to be well- seated. Peak velocity across the valve is 2.1 m/s Mild tricuspid valve regurgitation. No intracardiac masses There is no pericardial effusion. Estimated pulmonary artery peak systolic pressure 45 mmHg There is no pericardial effusion. There are no intracardiac masses. Compared to the study from 07/15/2023 the ejection fraction estimation could not be compared because of the difference in the technical quality of the studies. Dr Bertin Tierney MD FAC (Electronically Signed) Final Date: 13 October 2023 00:10 S
[2023-10-12 08:17] LABS: Hepatitis B Surface AB 254.8 (11.5-1000); Hepatitis B Surface Antigen Non-Reactive (Nonreactive)
[2023-10-12] MEDS: heparin, porcine 1,000 unit/mL INJ 10 mL 1000 UNIT IV (08:18)
[2023-10-12] MEDS: albumin 12.5 GM/50 ML VIAL IV ×2 (08:30→08:57)
--- NOTE | 2023-10-12 08:43 | PC.HD ---
Electronic consent for dialysis signed by patient. Due to pre-dialysis low BPs, prn albumnin was initiated at treatment start.
[2023-10-12] MEDS: mupirocin oint 22 gm 1 APPLIC TOPICAL ×2 (09:07→16:11)
[2023-10-12] MEDS: aspirin 81 mg EC Tablet PO (09:08)
--- NOTE | 2023-10-12 09:38 | P.CONIM_ITS ---
Providers/Reason For Consult 2 Consulting Physician/Specialty*: [facility]/Nephrology Reason for Consult*: ESRD Attending Physician: Desean Montes MD Primary Care Provider: Sulma Zavala MD History of Present Illness History of Present Illness Richard Huffman is a 63 year old male Patient is a 63-year-old male with past medical history of congestive cardiac failure, end-stage renal disease on dialysis per Wednesday, diabetes, A-fib, presented from nursing facility due to possible urinary retention and concern for UTI. Patient complained of lower abdominal pain. In the emergency department vital signs are stable and lab data is significant for hemoglobin of 10.7, sodium of 132. Patient is admitted to the hospital for further management. CT scan of the abdomen pelvis showed concern for proctitis, anasarca Review of Systems 2 Narrative: NEGATIVE Medications/Allergies Home Medications Medication Instructions Recorded Confirmed Last Taken Type oxycodone-acetaminophen 5 mg-325 0.5 - 1 tab PO Q4H PRN Pain 07/15/22 10/12/23 10/09/23 History mg tablet cyanocobalamin (vitamin B-12) 1,000 mcg PO DAILY 08/25/22 10/12/23 10/11/23 History 1,000 mcg tablet (Vitamin B-12) tramadol 50 mg tablet 50 mg PO Q6H PRN Pain, Mild 12/29/22 10/12/23 10/07/23 History Cruthes #1 ea 05/11/23 10/12/23 Unknown Rx vit B,C-folic ac 800 mcg-zinc 12.5 1 tab PO BEDTIME 05/15/23 10/12/23 10/10/23 History mg-selen-D3 2,000 unit-vit E tablet (RenaPlex-D) albuterol sulfate 90 mcg/actuation 1 inh inhalation QID PRN shortness 06/01/23 10/12/23 Unknown Rx aerosol inhaler (Ventolin HFA) of breath or wheezing #8.5 grams budesonide 0.5 mg/2 mL suspension 0.5 mg (2 mL) inhalation BID #60 mL 06/01/23 10/12/23 10/11/23 Rx for nebulization budesonide-formoterol HFA 80 2 puff inhalation BID PRN unknown 06/01/23 10/12/23 Unknown Rx mcg-4.5 mcg/actuation aerosol #10.2 grams inhaler (Symbicort) bumetanide 2 mg tablet 2 mg PO BID #180 tabs 06/01/23 10/12/23 10/11/23 Rx escitalopram oxalate 10 mg tablet 10 mg PO QAM #90 tabs 06/01/23 10/12/23 10/11/23 Rx (Lexapro) fluticasone propionate 50 2 spray intranasal DAILY PRN 06/01/23 10/12/23 Unknown Rx mcg/actuation nasal Allergy Symptoms #16 grams spray,suspension ipratropium 0.5 mg-albuterol 3 mg 3 ml inhalation Q6H Shortness Of 06/01/23 10/12/23 08/16/23 Rx (2.5 mg base)/3 mL nebulization Breath #180 mL soln isosorbide mononitrate 30 mg 30 mg PO DAILY #90 tabs 06/01/23 10/12/23 10/11/23 Rx tablet,extended release 24 hr nitroglycerin 2.5 mg 2.5 mg PO DAILY PRN chest 06/01/23 10/12/23 08/27/23 Rx capsule,extended release tightness #30 caps ropinirole 2 mg tablet 2 mg PO BEDTIME #90 tabs 06/01/23 10/12/23 10/10/23 Rx Diabetic shoes #1 ea 06/04/23 10/12/23 Unknown Rx four point rollaid with chair #1 ea 06/04/23 10/12/23 Unknown Rx nebulizer #1 ea 06/04/23 10/12/23 Unknown Rx nebulizer supplies (hose, mask,ect) #1 ea 06/04/23 10/12/23 Unknown Rx oxygen concentrator #1 ea 06/04/23 10/12/23 Unknown Rx shower chair #1 ea 06/04/23 10/12/23 Unknown Rx toiler riser with handles #1 ea 06/04/23 10/12/23 Unknown Rx Camboot #1 ea 06/17/23 10/12/23 Unknown Rx acetaminophen 325 mg tablet 650 mg PO Q6H PRN PAIN OR 08/16/23 10/12/23 10/07/23 History INCREASED TEMP doxycycline hyclate 100 mg capsule 100 mg PO DAILY 0610/12/23 10/11/23 History ondansetron HCl 8 mg tablet 8 mg PO Q6H PRN Nausea 08/16/23 10/12/23 09/09/23 History metolazone 5 mg tablet 5 mg PO DAILY 08/31/23 10/12/23 10/11/23 History pantoprazole 40 mg tablet,delayed 40 mg PO Q12H 30 days #60 tabs 09/02/23 10/12/23 10/11/23 Rx release bisacodyl 5 mg tablet 10 mg PO DAILY PRN Constipation 10/12/23 10/12/23 10/09/23 History hydralazine 25 mg tablet 25 mg PO BID 10/12/23 10/12/23 10/11/23 History lanthanum 500 mg chewable tablet 500 mg PO TID 10/12/23 10/12/23 10/11/23 History (Fosrenol) menthol 0.44 %-zinc oxide 20.6 % 1 applic topical QID PRN Rash 10/12/23 10/12/23 10/11/23 History topical ointment (Calmoseptine) metoprolol tartrate 25 mg tablet 25 mg PO BID 10/12/23 10/12/23 10/11/23 History sucralfate 1 gram tablet 1 g PO Q12H 10/12/23 10/12/23 Unknown History tamsulosin 0.4 mg capsule (Flomax) 0.4 mg PO BEDTIME 10/12/23 10/12/23 10/10/23 History Allergies Allergy/AdvReac Type Severity Reaction Status Date / Time latex Allergy Mild Blisters Verified 10/11/23 15:25 petrolatum,white Allergy Mild Blisters Verified 10/11/23 15:25 [From A and D Barrier] amlodipine Allergy Unknown Verified 10/11/23 15:25 Current Medications Generic Name Dose Route Start Last Admin Trade Name Freq PRN Reason Stop Dose Admin Amiodarone HCl 200 mg 10/11/23 22:38 10/11/23 23:03 Amiodarone 200 Mg Tablet PO 200 mg BEDTIME KENNEDY Administration Aspirin 81 mg 10/12/23 09:00 10/12/23 09:08 Aspirin 81 Mg Ec Tablet PO 81 mg DAILY KENNEDY Administration Escitalopram Oxalate 10 mg 10/12/23 06:00 10/12/23 05:40 Escitalopram 10 Mg Tablet PO 10 mg QAM KENNEDY Administration Heparin Sodium (Porcine) 5,000 unit 10/11/23 22:38 10/11/23 23:03 Heparin 5,000 Unit/Ml Inj 1 Ml SUBCUT 5,000 unit Q12H KENNEDY Administration Albumin Human 12.5 gm in 50 mls @ 60 mls/hr 10/12/23 06:46 10/12/23 08:57 Albumin IV 120 mls/hr PRN PRN Administration Hypotension and/or symptomatic Meropenem 500 mg 10/12/23 06:00 10/12/23 05:40 Meropenem 500 Mg Sdv IVP 500 mg Q12H KENNEDY Administration Protocol Midodrine 10 mg 10/11/23 22:38 10/12/23 05:40 Midodrine 5 Mg Tablet PO 10 mg Q8H KENNEDY Administration Mupirocin 1 applic 10/12/23 08:32 10/12/23 09:07 Mupirocin Oint 22 Gm TOPICAL 1 applic Q8H KENNEDY Administration Pantoprazole Sodium 40 mg 10/11/23 22:38 10/11/23 23:[address] 40 Mg Tablet PO 40 mg Q12H KENNEDY Administration Ropinirole HCl 2 mg 10/11/23 22:38 10/11/23 23:04 Ropinirole 2 Mg Tablet PO 2 mg BEDTIME KENNEDY Administration PFSH Acute 2 PFSH: Medical History ESRD (end stage renal disease) Acute exacerbation of congestive heart failure Bradycardia Hyperkalemia ESRD (end stage renal disease) on dialysis Acute hyperkalemia NSTEMI (non-ST elevated myocardial infarction) Chest pain Atrial fibrillation Moderate to severe mitral regurgitation Chronic pain Chronic GI bleeding Hiatal hernia High risk medication use Chronic anemia COPD (chronic obstructive pulmonary disease) Severe tobacco use disorder ESRD on hemodialysis History of renal dialysis Chronic kidney disease 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 Intermittent palpitations Hyperlipidemia Hypertension XI (obstructive sleep apnea) DJD (degenerative joint disease) Atrial flutter PVD (peripheral vascular disease) Diabetes Surgical History 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 H/O aortic valve replacement with tissue graft H/O aortic valve replacement H/O foot surgery Family History Grandmother Diabetes Grandfather Diabetes Denies family history of CAD (coronary artery disease) Clotting disorder Dementia Chronic kidney disease (CKD) Suicide Anesthesia complication Bleeding disorder Lung disease Cancer Stroke Social History Smoking and tobacco/nicotine status: former use of tobacco/nicotine Alcohol intake: never Substance/Drug Use: never Lives independently: Yes (with girlfriend) Household members: significant other Marital status: Single service: No 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al status: disabled 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 Pets and animals: Yes Special araceli needs: No Agree to transfusion: Yes Vitals/I&O/Wt Last Vital Signs Temp 97.3 F L 10/12/23 08:42 Pulse 90 10/12/23 09:00 Resp 3 L 10/12/23 09:00 BP 104/79 10/12/23 09:00 Pulse Ox 98 10/12/23 09:00 O2 Del Method Nasal Cannula 10/12/23 08:59 O2 Flow Rate 3 10/12/23 08:59 10/11/23 10/12/23 10/12/23 22:59 06:59 14:59 Intake Total 755 / 755 208.75 / 208.75 Output Total 0 / 0 Balance 755 / 755 208.75 / 208.75 Weight last 48 hrs Weight 124.88 kg Weight 122.952 kg Weight 126 kg Physical Exam 2 Narrative: AWAKE , ALERT NO DISTRESS S1S2 RRR per report Lungs clear per report No edema Data 10/12/23 04:13 10/12/23 04:13 Micro: Microbiology 10/11/23 00:25 Blood Culture - Preliminary Blood SPECIMEN COLLECTED 10/11/23 22:55 Blood Culture - Preliminary Blood SPECIMEN COLLECTED A&P Assessment and plan (1) ESRD (end stage renal disease): 1. End-stage renal disease: On MWF schedule as outpatient, hemodialysis today, ultrafiltration as tolerated 2. History of hypertension resume home medications 3. Anemia: Will order SALENA with HD 4. History of CHF, with volume overload, HD as above 5. Sepsis, possible from UTI , Consult Attestations 2 Medical Necessity Statement: per niall Coding Level of Care Code Acute Code for Chg Fwd Diagnoses ESRD (end stage renal disease) N18.6
[2023-10-12] MEDS: heparin 5,000 unit/mL INJ 1 mL 5000 UNIT SUBCUT ×2 (10:27→22:00)
[2023-10-12] MEDS: collagenase oint 30 gm 1 APPLIC TOPICAL (10:27)
[2023-10-12] MEDS: pantoprazole DR 40 mg Tablet PO ×2 (10:28→22:00)
[2023-10-12] MEDS: heparin, porcine 1,000 unit/mL INJ 10 mL 10000 UNIT INTRACATH (11:35)
[2023-10-12 12:00] LABS: Troponin T (5th) Once 329 ng/L (0-15)
--- NOTE | 2023-10-12 13:33 | P.PN_ITS ---
Subjective 2 Subjective: Patient was seen this morning, he is alert oriented x 3, follows all commands, denies any significant penile pain, no fevers, chills, no lightheadedness, dizziness, no back pain, he denies currently any chest pain, no palpitations, no shortness of breath Vitals/I&O/Wt Last Vital Signs Temp 97.0 F L 10/12/23 11:33 Pulse 85 10/12/23 12:30 Resp 15 10/12/23 12:30 BP 97/70 10/12/23 12:30 Pulse Ox 100 10/12/23 12:30 O2 Del Method Nasal Cannula 10/12/23 08:59 O2 Flow Rate 3 10/12/23 08:59 10/11/23 10/12/23 10/12/23 22:59 06:59 14:59 Intake Total 755 / 755 868.75 / 868.75 Output Total 0 / 0 3600 / 3600 Balance 755 / 755 -2731.25 / -2731.25 Weight last 48 hrs Weight 122.7 kg Weight 124.88 kg Weight 122.952 kg Weight 126 kg Physical Exam 2 Const: COMMON NORMALS: no acute distress Resp: COMMON NORMALS: normal respiratory effort, No retractions, No use of accessory muscles and clear to auscultation bilaterally AUSCULTATION: clear to auscultation bilaterally Cardio: COMMON NORMALS: regular rate, regular rhythm, S1 normal heart sound present and S2 normal heart sound present RATE: regular rate RHYTHM: r egular rhythm HEART SOUNDS: S1 normal heart sound present and S2 normal heart sound present GI: COMMON NORMALS: Normal to inspection, nondistended, normoactive bowel sounds present and non-tender : OTHER: Perineum on examination no significant erythema, no significant tenderness ? Bilateral inner thighs no significant erythema, no significant tenderness ? Skin above pubic bone area, no significant erythema no tenderness ? At the base of the penis some erythema some tenderness to palpation ? S shaft of penis some erythema, some tenderness ? Head of the penis, erythema, swelling, tenderness with mucopurulent discharge ? Purulent discharge coming from the urethra ? Scrotum, no significant pain upon palpation, testicles, epididymis Extremity: COMMON NORMALS: no pedal edema Data 10/12/23 04:13 10/12/23 04:13 Micro: Microbiology 10/11/23 18:23 Gram Stain - Final Ankle - Penile 10/11/23 00:25 Blood Culture - Preliminary Blood SPECIMEN COLLECTED 10/11/23 22:55 Blood Culture - Preliminary Blood SPECIMEN COLLECTED A&P Assessment and plan (1) UTI (urinary tract infection): (2) Penile discharge: (3) Balanoposthitis: (4) Complication of Holly catheter: (5) Holly catheter in place on admission: (6) Sepsis: Plan CAUTI with concern for balanoposthitis ? Holly catheter removed -CT abdomen pelvis with IV contrast no acute findings Currently patient denies any pain, no fevers overnight, continues to have purulent drainage from penile head CRP 83.1, Pro-Zachary 0.57 ? Plan ? Continue dressing changes ? Topical mupirocin ? Continue vancomycin ? Continue Zosyn -On midodrine due to sepsis, soft blood pressures elevated lactic acid ? Follow urine cultures ? Follow cultures of purulent drainage from penile head ? Gonorrhea chlamydia cultures ? Catheter tip cultures Sepsis ? Sepsis features met given evidence of infection, UTI, lactic acid, Pro-Zachary, CRP, soft blood pressures Missed dialysis, end-stage renal disease on dialysis ? Received dialysis today Sacral DTI's, ? Continue repositioning Atrial fibrillation, not on anticoagulation due to chronic anemia NSTEMI ? No chest pain complaints ? 6-hour troponin 350, delta of 42.2, most recent troponin 329 ? Patient's prior troponins have been as high as 400 -Last cardiac catheterization in December 2022 2. Mild coronary artery disease. Normal LV ejection fraction of 55%. LVEDP of 21 mmHg. The right catheterization revealed mean right atrial pressure of 18. PA pressure was 87/35 with a mean of 56, consistent with a severe pulmonary hypertension. Pulmonary capillary wedge pressure was 28. The RV pressure was 85/4 with a mean of 20. Cardiac output by Mandy's is 6.0 with a cardiac index of 3.0 L/m2. -Continue aspirin, statin, beta-reggie currently on hold due to low blood pressures -Repeat cardiac echo History of fluid overload, diastolic CHF exacerbation Hemodialysis COPD CHF CAD Full code Lovenox for DVT prophylaxis Cardiac diet Attestations 2 Medical Necessity Statement*: Patient requires hospitalization, inpatient, greater than 2 midnights for concerns for sepsis, cellulitis, cauti, balanopthitis, Diagnoses UTI (urinary tract infection) N39.0 Penile discharge R36.9 Balanoposthitis N47.6 Complication of Holly catheter T83.9XXA Holly catheter in place on admission Z97.8 Sepsis A41.9
[2023-10-12] MEDS: vancomycin 1,000 MG in sodium chloride 0.9% 250 ML 250 MG IV (15:11)
--- NOTE | 2023-10-12 17:03 | P.CONIM_ITS ---
Providers/Reason For Consult 2 Consulting Physician/Specialty*: Dr. Chaitanya Chapa, DO/General surgery Reason for Consult*: Penile wound/infection Attending Physician: Desean Montes MD Primary Care Provider: Sulma Zavala MD History of Present Illness History of Present Illness Richard Huffman is a 63 year old male, on hemodialysis with multiple comorbidities, originally presented to the hospital due to pelvic and penile pain. He has a Holly catheter in place. He reports that he has sharp severe constant pain at his penis. Palpation makes pain worse. Nothing seems to make the pain better. The pain does not radiate. General surgery was consulted for the penile wound. Denies any fever or chills Review of Systems 2 General: Reports: 10 or more systems reviewed and unremarkable except in HPI and below Medications/Allergies Home Medications Medication Instructions Recorded Confirmed Last Taken Type oxycodone-acetaminophen 5 mg-325 0.5 - 1 tab PO Q4H PRN Pain 07/15/22 10/12/23 10/09/23 History mg tablet cyanocobalamin (vitamin B-12) 1,000 mcg PO DAILY 08/25/22 10/12/23 10/11/23 History 1,000 mcg tablet (Vitamin B-12) tramadol 50 mg tablet 50 mg PO Q6H PRN Pain, Mild 12/29/22 10/12/23 10/07/23 History Cruthes #1 ea 05/11/23 10/12/23 Unknown Rx vit B,C-folic ac 800 mcg-zinc 12.5 1 tab PO BEDTIME 05/15/23 10/12/23 10/10/23 History mg-selen-D3 2,000 unit-vit E tablet (RenaPlex-D) albuterol sulfate 90 mcg/actuation 1 inh inhalation QID PRN shortness 06/01/23 10/12/23 Unknown Rx aerosol inhaler (Ventolin HFA) of breath or wheezing #8.5 grams budesonide 0.5 mg/2 mL suspension 0.5 mg (2 mL) inhalation BID #60 mL 06/01/23 10/12/23 10/11/23 Rx for nebulization budesonide-formoterol HFA 80 2 puff inhalation BID PRN unknown 06/01/23 10/12/23 Unknown Rx mcg-4.5 mcg/actuation aerosol #10.2 grams inhaler (Symbicort) bumetanide 2 mg tablet 2 mg PO BID #180 tabs 06/01/23 10/12/23 10/11/23 Rx escitalopram oxalate 10 mg tablet 10 mg PO QAM #90 tabs 06/01/23 10/12/23 10/11/23 Rx (Lexapro) fluticasone propionate 50 2 spray intranasal DAILY PRN 06/01/23 10/12/23 Unknown Rx mcg/actuation nasal Allergy Symptoms #16 grams spray,suspension ipratropium 0.5 mg-albuterol 3 mg 3 ml inhalation Q6H Shortness Of 06/01/23 10/12/23 08/16/23 Rx (2.5 mg base)/3 mL nebulization Breath #180 mL soln isosorbide mononitrate 30 mg 30 mg PO DAILY #90 tabs 06/01/23 10/12/23 10/11/23 Rx tablet,extended release 24 hr nitroglycerin 2.5 mg 2.5 mg PO DAILY PRN chest 06/01/23 10/12/23 08/27/23 Rx capsule,extended release tightness #30 caps ropinirole 2 mg tablet 2 mg PO BEDTIME #90 tabs 06/01/23 10/12/23 10/10/23 Rx Diabetic shoes #1 ea 06/04/23 10/12/23 Unknown Rx four point rollaid with chair #1 ea 06/04/23 10/12/23 Unknown Rx nebulizer #1 ea 06/04/23 10/12/23 Unknown Rx nebulizer supplies (hose, mask,ect) #1 ea 06/04/23 10/12/23 Unknown Rx oxygen concentrator #1 ea 06/04/23 10/12/23 Unknown Rx shower chair #1 ea 06/04/23 10/12/23 Unknown Rx toiler riser with handles #1 ea 06/04/23 10/12/23 Unknown Rx Camboot #1 ea 06/17/23 10/12/23 Unknown Rx acetaminophen 325 mg tablet 650 mg PO Q6H PRN PAIN OR 08/16/23 10/12/23 10/07/23 History INCREASED TEMP doxycycline hyclate 100 mg capsule 100 mg PO DAILY 08/16/23 10/12/23 10/11/23 History ondansetron HCl 8 mg tablet 8 mg PO Q6H PRN Nausea 08/16/23 10/12/23 09/09/23 History metolazone 5 mg tablet 5 mg PO DAILY 08/31/23 10/12/23 10/11/23 History pantoprazole 40 mg tablet,delayed 40 mg PO Q12H 30 days #60 tabs 09/02/23 10/12/23 10/11/23 Rx release bisacodyl 5 mg tablet 10 mg PO DAILY PRN Constipation 10/12/23 10/12/23 10/09/23 History hydralazine 25 mg tablet 25 mg PO BID 10/12/23 10/12/23 10/11/23 History lanthanum 500 mg chewable tablet 500 mg PO TID 10/12/23 10/12/23 10/11/23 History (Fosrenol) menthol 0.44 %-zinc oxide 20.6 % 1 applic topical QID PRN Rash 10/12/23 10/12/23 10/11/23 History topical ointment (Calmoseptine) metoprolol tartrate 25 mg tablet 25 mg PO BID 10/12/23 10/12/23 10/11/23 History sucralfate 1 gram tablet 1 g PO Q12H 10/12/23 10/12/23 Unknown History tamsulosin 0.4 mg capsule (Flomax) 0.4 mg PO BEDTIME 10/12/23 10/12/23 10/10/23 History Allergies Allergy/AdvReac Type Severity Reaction Status Date / Time latex Allergy Mild Blisters Verified 10/11/23 15:25 petrolatum,white Allergy Mild Blisters Verified 10/11/23 15:25 [From A and D Barrier] amlodipine Allergy Unknown Verified 10/11/23 15:25 Current Medications Generic Name Dose Route Start Last Admin Trade Name Freq PRN Reason Stop Dose Admin Amiodarone HCl 200 mg 10/11/23 22:38 10/12/23 21:03 Amiodarone 200 Mg Tablet PO 200 mg BEDTIME KENNEDY Administration Aspirin 81 mg 10/12/23 09:00 10/13/23 09:27 Aspirin 81 Mg Ec Tablet PO 81 mg DAILY KENNEDY Administration Atorvastatin Calcium 40 mg 10/12/23 21:00 10/12/23 21:03 Atorvastatin 40 Mg Tablet PO 40 mg BEDTIME KENNEDY Administration Cyanocobalamin 1,000 mcg 10/13/23 09:00 10/13/23 09:27 Cyanocobalamin 1,000 Mcg Tablet PO 1,000 mcg DAILY KENNEDY Administration Escitalopram Oxalate 10 mg 10/12/23 06:00 10/13/23 05:51 Escitalopram 10 Mg Tablet PO 10 mg QAM KENNEDY Administration Heparin Sodium (Porcine) 5,000 unit 10/11/23 22:38 10/13/23 15:31 Heparin 5,000 Unit/Ml Inj 1 Ml SUBCUT 5,000 unit Q12H KENNEDY Administration Albumin Human 12.5 gm in 50 mls @ 60 mls/hr 10/12/23 06:46 10/12/23 17:40 Albumin IV Infused PRN PRN Infusion Hypotension and/or symptomatic Vancomycin HCl 1,000 mg/ 250 mls @ 250 mls/hr 10/12/23 15:00 10/13/23 15:32 Sodium Chloride IV Not Given DIALYSIS KENNEDY Meropenem 500 mg 10/12/23 06:00 10/13/23 05:51 Meropenem 500 Mg Sdv IVP 500 mg Q12H KENNEDY Administration Protocol Mupirocin 1 applic 10/12/23 08:32 10/13/23 15:32 Mupirocin Oint 22 Gm TOPICAL 1 applic Q8H KENNEDY Administration Pantoprazole Sodium 40 mg 10/11/23 22:38 10/12/23 22:[address] 40 Mg Tablet PO 40 mg Q12H KENNEDY Administration Ropinirole HCl 2 mg 10/11/23 22:38 10/12/23 21:03 Ropinirole 2 Mg Tablet PO 2 mg BEDTIME KENNEDY Administration Sucralfate 1 gm 10/12/23 17:57 10/13/23 05:51 Sucralfate 1 Gm Tablet PO 1 gm Q12H KENNEDY Administration Tamsulosin HCl 0.4 mg 10/12/23 21:00 10/12/23 21:03 Tamsulosin 0.4 Mg Capsule PO 0.4 mg BEDTIME KENNEDY Administration PFSH Acute 2 PFSH: Medical History ESRD (end stage renal disease) Acute exacerbation of congestive heart failure Bradycardia Hyperkalemia ESRD (end stage renal disease) on dialysis Acute hyperkalemia NSTEMI (non-ST elevated myocardial infarction) Chest pain Atrial fibrillation Moderate to severe mitral regurgitation Chronic pain Chronic GI bleeding Hiatal hernia High risk medication use Chronic anemia COPD (chronic obstructive pulmonary disease) Severe tobacco use disorder ESRD on hemodialysis History of renal dialysis Chronic kidney disease 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 Intermittent palpitations Hyperlipidemia Hypertension XI (obstructive sleep apnea) DJD (degenerative joint disease) Atrial flutter PVD (peripheral vascular disease) Diabetes Surgical History 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 H/O aortic valve replacement with tissue graft H/O aortic valve replacement H/O foot surgery Family History Grandmother Diabetes Grandfather Diabetes Denies family history of CAD (coronary artery disease) Clotting disorder Dementia Chronic kidney disease (CKD) Suicide Anesthesia complication Bleeding disorder Lung disease Cancer Stroke Social History Smoking and tobacco/nicotine status: former use of tobacco/nicotine Alcohol intake: never Substance/Drug Use: never Lives independently: Yes (with girlfriend) Household members: significant other Marital status: Single service: No 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al status: disabled 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 Pets and animals: Yes Special araceli needs: No Agree to transfusion: Yes Vitals/I&O/Wt Last Vital Signs Temp 98.1 F 10/13/23 16:00 Pulse 106 H 10/13/23 16:00 Resp 17 10/13/23 16:00 BP 115/76 10/13/23 16:00 Pulse Ox 91 10/13/23 16:00 O2 Del Method Room Air 10/13/23 16:00 O2 Flow Rate 3 10/13/23 11:19 10/13/23 10/13/23 10/13/23 06:59 14:59 22:59 Intake Total 480 / 1888.75 600 / 600 Output Total 75 / 3675 Balance 405 / -1786.25 600 / 600 Weight last 48 hrs Weight 274 lb 14.4 oz Weight 270 lb 8.115 oz Weight 275 lb 5 oz Weight 271 lb 1 oz Physical Exam 2 Narrative: General : Patient is well developed , no acute distress, oriented x3 Head : Normal cephalic, a-traumatic. Ears : Pinnae and external canal are normal. Hearing is normal. Eyes : PERRLA, Sclera and injection are normal. No conjunctival discharge. Nose : Mucous membranes are without erythema. Throat : buccal mucosa is normal, gums are without significant recession or hypertrophy. Lungs : Equal chest rise bilaterally, no use of accessory muscles, trachea is midline. Cor : Rate and rhythm are normal. Abdomen : Soft, ND, NT, no g/r/m : There is a circumferential wound on the shaft of his penis with exudate, edema and mild erythema, no evidence of Liu's gangrene Extremities : No edema, no cyanosis or clubbing, dorsalis pedis pulses are present bilaterally, non-tender to palpation of calves. Upper extremities are normal bilaterally. Back : non-tender to palpation, no CVA tenderness. Neuro : CN II - XII intact, Upper and lower extremities have equal and full strength Data 10/13/23 05:40 10/13/23 05:40 Micro: Microbiology 10/11/23 18:23 Anaerobic Culture - Preliminary Penis 10/11/23 18:23 Gram Stain - Final Ankle - Penile Body Fluid Culture - Preliminary Gram Negative Rods 10/11/23 18:23 Catheter Tip Culture - Preliminary Groin Gram Negative Rods 10/11/23 15:33 Urine Culture - Preliminary Urine,Clean Catch Gram Negative Rods 10/11/23 00:25 Blood Culture - Preliminary Blood NEGATIVE TO DATE 10/11/23 22:55 Blood Culture - Preliminary Blood NEGATIVE TO DATE A&P Assessment and plan (1) Balanoposthitis: (2) Open wound of penis: Plan His penile wound does have exudate and requires debridement. I believe we can treat this with chemical debridement Daily Felipe Will follow Medical management per hospitalist Coding Level of Care Code 90743 Diagnoses Balanoposthitis N47.6 Open wound of penis S31.20XA
[2023-10-12] MEDS: sucralfate 1 gm Tablet PO (18:29)
[2023-10-12] MEDS: atorvastatin 40 mg Tablet PO (21:03)
[2023-10-12] MEDS: tamsulosin 0.4 mg Capsule PO (21:03)
[2023-10-12] MEDS: amiodarone 200 mg Tablet PO (21:03)
[2023-10-12] MEDS: ropinirole 2 mg Tablet PO (21:03)
[2023-10-13] VITALS (9 sets, daily range): BP systolic 102–117; BP diastolic 66–76; PULSE 104–108; RESP 16–19; TEMP 36.4–37; O2SAT 91–93
[2023-10-13] MEDS: oxyCODONE 5 mg IR Tab/Cap PO (00:35)
[2023-10-13] MEDS: mupirocin oint 22 gm 1 APPLIC TOPICAL ×3 (00:36→15:32)
[2023-10-13] MEDS: sucralfate 1 gm Tablet PO ×2 (05:51→18:18)
[2023-10-13] MEDS: escitalopram 10 mg Tablet PO (05:51)
[2023-10-13] MEDS: midodrine 5 mg TABLET 10 MG PO (05:51)
[2023-10-13] MEDS: meropenem 500 mg SDV IVP ×2 (05:51→18:18)
[2023-10-13 06:29] LABS: Basophils # 0.1 10^3/uL (0.0-0.1); Eosinophils # 0.1 10^3/uL (0.0-0.8); Lymphocytes # 0.8 10^3/uL (0.8-4.8); Lymphocytes % 12.7 %; Mean Corpuscular HGB Conc 29.4 g/dL (30-55); Mean Corpuscular Hemoglobin 31.6 pg (27-33); Mean Corpuscular Volume 107.5 fl (82-101); Mean Platelet Volume 10.6 fL (7.4-10.4); Monocytes # 0.6 10^3/uL (0.2-0.9); Neutrophils # 4.71 10^3/uL (1.8-7.7); Neutrophils % 75.8 %; Nucleated Red Blood Cells % 0 %; Platelet Count 113 10^3/cmm (157-399); Red Blood Count 3.07 10^6/uL (3.85-5.65); Red Cell Distribution Width 20.6 % (12.1-15.1); White Blood Count 6.21 10^3/uL (3.29-11.43)
[2023-10-13 06:43] LABS: Procalcitonin 0.54 ng/mL (0-0.5)
[2023-10-13 07:15] LABS: C Reactive Protein 67.3 mg/L (0.0-4.9)
[2023-10-13 07:20] LABS: Alanine Aminotransferase 13 U/L (0-41); Albumin Level 3.4 g/dL (3.5-5.2); Alkaline Phosphatase 256 U/L (40-130); Aspartate Amino Transferase 27 U/L (0-40); Blood Urea Nitrogen 26 mg/dL (8-23); Calcium 8.9 mg/dL (8.5-10.5); Carbon Dioxide 23 mmol/L (22-29); Globulin 2.1 g/dL (1.3-4.6); Glomerular Filtration Rate 13.4 mL/min (90-130); Glucose 94 mg/dL (65-115); Total Bilirubin 1.5 mg/dL (0.15-1.2); Total Protein 5.5 g/dL (6.6-8.7)
[2023-10-13 07:23] LABS: NT Pro B Type Natriuretic Pept > 70000 pg/mL (0-125)
--- NOTE | 2023-10-13 07:26 | P.PN_ITS ---
Subjective 2 Subjective: s/p HD yesterday Medications: Reviewed: Yes Vitals/I&O/Wt Last Vital Signs Temp 97.6 F 10/13/23 03:58 Pulse 105 H 10/13/23 03:58 Resp 18 10/13/23 03:58 BP 102/66 10/13/23 03:58 Pulse Ox 91 10/13/23 03:58 O2 Del Method Nasal Cannula 10/12/23 20:00 O2 Flow Rate 3 10/12/23 20:00 10/12/23 10/13/23 10/13/23 22:59 06:59 14:59 Intake Total 420 / 1408.75 480 / 1888.75 Output Total 75 / 3675 Balance 420 / -2191.25 405 / -1786.25 Weight last 48 hrs Weight 124.693 kg Weight 122.7 kg Weight 124.88 kg Weight 122.952 kg Weight 126 kg Physical Exam 2 Narrative: AWAKE , ALERT NO DISTRESS S1S2 RRR per report Lungs clear per report No edema Data 10/13/23 05:40 10/13/23 05:40 Micro: Microbiology 10/11/23 00:25 Blood Culture - Preliminary Blood NEGATIVE TO DATE 10/11/23 22:55 Blood Culture - Preliminary Blood NEGATIVE TO DATE 10/11/23 18:23 Gram Stain - Final Ankle - Penile A&P Assessment and plan (1) ESRD (end stage renal disease): 1. End-stage renal disease: On [facility] schedule as outpatient, s/p hemodialysis yesterday , HD tomorrow , ultrafiltration as tolerated 2. History of hypertension resume home medications 3. Anemia: Will order SALENA with HD 4. History of CHF, with volume overload, HD as above 5. Sepsis, possible from UTI , Attestations 2 Medical Necessity Statement*: per medicine Coding Level of Care Code Acute Code for Chg Fwd Diagnoses ESRD (end stage renal disease) N18.6
[2023-10-13 07:43] LABS: Anion Gap 20.6 (5-19); Chloride 95 mmol/L (98-107); Osmolality Calculated 285 mOsm/kg (285-295); Potassium 3.6 mmol/L (3.5-5.1); Sodium 135 mmol/L (136-145)
[2023-10-13] MEDS: aspirin 81 mg EC Tablet PO (09:27)
[2023-10-13] MEDS: cyanocobalamin 1,000 mcg Tablet 1000 MCG PO (09:27)
--- NOTE | 2023-10-13 14:25 | P.PN_ITS ---
Subjective 2 Subjective: Patient was seen this morning, he is alert oriented x 3, following all commands denying any fevers, chills continues to have complaints of lower extremity edema continues to have 2+ pitting edema lower extremities, we discussed him potentially receiving dialysis today for fluid overload, he continues to have penile pain but improved compared to yesterday nursing staff are at bedside, we did he genital examination, continues to have purulent drainage from penile head although he feels that it is improved compared to the yesterday, continues to have purulent drainage around the penile head, but erythema and tenderness has improved Vitals/I&O/Wt Last Vital Signs Temp 98.2 F 10/13/23 11:19 Pulse 105 H 10/13/23 11:19 Resp 18 10/13/23 11:19 BP 110/72 10/13/23 11:19 Pulse Ox 92 10/13/23 11:19 O2 Del Method Nasal Cannula 10/13/23 11:19 O2 Flow Rate 3 10/13/23 11:19 10/12/23 10/13/23 10/13/23 22:59 06:59 14:59 Intake Total 420 / 1408.75 480 / 1888.75 360 / 360 Output Total 75 / 3675 Balance 420 / -2191.25 405 / -1786.25 360 / 360 Weight last 48 hrs Weight 124.693 kg Weight 122.7 kg Weight 124.88 kg Weight 122.952 kg Weight 126 kg Physical Exam 2 Const: COMMON NORMALS: no acute distress and patient oriented x3 Resp: COMMON NORMALS: normal respiratory effort, No retractions, No use of accessory muscles and clear to auscultation bilaterally AUSCULTATION: clear to auscultation bilaterally Cardio: COMMON NORMALS: regular rate, regular rhythm, S1 normal heart sound present and S2 normal heart sound present RATE: regular rate RHYTHM: r egular rhythm HEART SOUNDS: S1 normal heart sound present and S2 normal heart sound present GI: COMMON NORMALS: Normal to inspection, nondistended, normoactive bowel sounds present and non-tender Extremity: COMMON NORMALS: no pedal edema Neuro: COMMON NORMALS: patient oriented x3 Psych: COMMON NORMALS: mental status grossly normal Data 10/13/23 05:40 10/13/23 05:40 Micro: Microbiology 10/11/23 18:23 Anaerobic Culture - Preliminary Penis 10/11/23 18:23 Gram Stain - Final Ankle - Penile Body Fluid Culture - Preliminary Gram Negative Rods 10/11/23 18:23 Catheter Tip Culture - Preliminary Groin Gram Negative Rods 10/11/23 15:33 Urine Culture - Preliminary Urine,Clean Catch Gram Negative Rods 10/11/23 00:25 Blood Culture - Preliminary Blood NEGATIVE TO DATE 10/11/23 22:55 Blood Culture - Preliminary Blood NEGATIVE TO DATE A&P Assessment and plan (1) UTI (urinary tract infection): (2) Penile discharge: (3) Balanoposthitis: (4) Complication of Holly catheter: (5) Holly catheter in place on admission: (6) Sepsis: Plan CAUTI with concern for balanoposthitis ? Holly catheter removed -CT abdomen pelvis with IV contrast no acute findings Currently patient denies any pain, no fevers overnight, continues to have purulent drainage from penile head CRP 83.1, Pro-Zachary 0.57 ? Catheter tip culture showing gram-negative rods ? Urine culture showing gram-negative rods -Cultures from penile discharge showing gram-negative rods ? Plan ? Continue dressing changes ? Topical mupirocin ? Continue vancomycin ? Continue Zosyn -Hold midodrine blood pressures have improved ? Follow urine cultures ? Follow cultures of purulent drainage from penile head ? Gonorrhea chlamydia cultures ? Catheter tip cultures Sepsis, resolved ? Sepsis features met given evidence of infection, UTI, lactic acid, Pro-Zachary, CRP, soft blood pressures Missed dialysis, end-stage renal disease on dialysis Is fluid overloaded ? Possible plans on dialysis today Sacral DTI's, ? Continue repositioning Atrial fibrillation, not on anticoagulation due to chronic anemia NSTEMI ? No chest pain complaints ? 6-hour troponin 350, delta of 42.2, most recent troponin 329 ? Patient's prior troponins have been as high as 400 -Last cardiac catheterization in December 2022 2. Mild coronary artery disease. Normal LV ejection fraction of 55%. LVEDP of 21 mmHg. The right catheterization revealed mean right atrial pressure of 18. PA pressure was 87/35 with a mean of 56, consistent with a severe pulmonary hypertension. Pulmonary capillary wedge pressure was 28. The RV pressure was 85/4 with a mean of 20. Cardiac output by Mandy's is 6.0 with a cardiac index of 3.0 L/m2. -Continue aspirin, statin, beta-reggie currently on hold due to low blood pressures -Repeat cardiac echo CONCLUSIONS Abnormal (paradoxical) septal motion consistent with postoperative status. Normal LV size with a slightly diminished ejection fraction 50%. Diffuse hypokinesis of right ventricle with slightly diminished ejection fraction. Moderately biatrial enlargement. The bio prosthetic valve in the aortic position appears to be well-seated. Thickened mitral valve. Possible mitral annular ring. At least moderate eccentric mitral regurgitation. The prosthetic valve in the aortic position appears to be well- seated. Peak velocity across the valve is 2.1 m/s Mild tricuspid valve regurgitation. No intracardiac masses There is no pericardial effusion. Estimated pulmonary artery peak systolic pressure 45 mmHg There is no pericardial effusion. There are no intracardiac masses. Compared to the study from 07/15/2023 the ejection fraction estimation could not be compared because of the difference in the technical quality of the studies. History of fluid overload, diastolic CHF exacerbation Hemodialysis COPD CHF CAD Full code Heparin for DVT prophylaxis Cardiac diet Attestations 2 Medical Necessity Statement*: Patient requires hospitalization for catheter associated UTI, persistent penile discharge, fluid overload requiring dialysis Diagnoses UTI (urinary tract infection) N39.0 Penile discharge R36.9 Balanoposthitis N47.6 Complication of Holly catheter T83.9XXA Holly catheter in place on admission Z97.8 Sepsis A41.9
[2023-10-13 15:00] LABS: Chlamydia Trachomatis RNA TMA NOT DETECTED (NOT DETECTED); Neisseria Gonorrhoeae RNA, TMA NOT DETECTED (NOT DETECTED)
[2023-10-13] MEDS: heparin 5,000 unit/mL INJ 1 mL 5000 UNIT SUBCUT (15:31)
--- NOTE | 2023-10-13 17:07 | P.PN_ITS ---
Subjective 2 Subjective: Patient seen and examined. He reports he feels much better today Vitals/I&O/Wt Last Vital Signs Temp 98.1 F 10/13/23 16:00 Pulse 106 H 10/13/23 16:00 Resp 17 10/13/23 16:00 BP 115/76 10/13/23 16:00 Pulse Ox 91 10/13/23 16:00 O2 Del Method Room Air 10/13/23 16:00 O2 Flow Rate 3 10/13/23 11:19 10/13/23 10/13/23 10/13/23 06:59 14:59 22:59 Intake Total 480 / 1888.75 600 / 600 Output Total 75 / 3675 Balance 405 / -1786.25 600 / 600 Weight last 48 hrs Weight 274 lb 14.4 oz Weight 270 lb 8.115 oz Weight 275 lb 5 oz Weight 271 lb 1 oz Physical Exam 2 Narrative: General: No acute distress, awake alert and oriented x 3 : There is still an open circumferential wound of his penis shaft with exudate and decreased erythema and edema Data 10/13/23 05:40 10/13/23 05:40 Micro: Microbiology 10/11/23 18:23 Anaerobic Culture - Preliminary Penis 10/11/23 18:23 Gram Stain - Final Ankle - Penile Body Fluid Culture - Preliminary Gram Negative Rods 10/11/23 18:23 Catheter Tip Culture - Preliminary Groin Gram Negative Rods 10/11/23 15:33 Urine Culture - Preliminary Urine,Clean Catch Gram Negative Rods 10/11/23 00:25 Blood Culture - Preliminary Blood NEGATIVE TO DATE 10/11/23 22:55 Blood Culture - Preliminary Blood NEGATIVE TO DATE A&P Assessment and plan (1) Balanoposthitis: (2) Open wound of penis: Plan His penile wound does have exudate and requires debridement. I believe we can treat this with chemical debridement Change Santyl to twice daily as we cannot really put a bandage on this and I do not believe there is long enough contact with the medication Will follow Medical management per hospitalist Attestations 2 Medical Necessity Statement*: Per primary Coding Level of Care Code 94035 Diagnoses Balanoposthitis N47.6 Open wound of penis S31.20XA
[2023-10-13] MEDS: collagenase oint 30 gm 1 APPLIC TOPICAL (18:17)
[2023-10-13] MEDS: pantoprazole DR 40 mg Tablet PO (18:18)
[2023-10-13] MEDS: oxyCODONE-APAP 5-325 mg Tablet 0.5 TAB PO (18:18)
[2023-10-13] MEDS: ipratropium-albuterol 3 mL Neb INHALATION (19:55)
[2023-10-13] MEDS: amiodarone 200 mg Tablet PO (21:20)
[2023-10-13] MEDS: ropinirole 2 mg Tablet PO (21:20)
[2023-10-13] MEDS: tamsulosin 0.4 mg Capsule PO (21:20)
[2023-10-13] MEDS: atorvastatin 40 mg Tablet PO (21:20)
[2023-10-14] VITALS (15 sets, daily range): BP systolic 105–126; BP diastolic 64–79; PULSE 98–111; RESP 16–20; TEMP 36.6–36.9; O2SAT 95–98
[2023-10-14] MEDS: heparin 5,000 unit/mL INJ 1 mL 5000 UNIT SUBCUT ×2 (03:09→14:51)
[2023-10-14 04:52] LABS: Basophils # 0.1 10^3/uL (0.0-0.1); Eosinophils # 0.1 10^3/uL (0.0-0.8); Eosinophils % 1.2 %; Hematocrit 33.7 % (37-53); Lymphocytes % 14.4 %; Mean Corpuscular HGB Conc 30.6 g/dL (30-55); Mean Corpuscular Volume 104.7 fl (82-101); Mean Platelet Volume 9.8 fL (7.4-10.4); Monocytes # 0.8 10^3/uL (0.2-0.9); Monocytes % 11.2 %; Neutrophils # 5.18 10^3/uL (1.8-7.7); Neutrophils % 71.8 %; Nucleated Red Blood Cells % 0 %; Platelet Count 112 10^3/cmm (157-399); Red Blood Count 3.22 10^6/uL (3.85-5.65); Red Cell Distribution Width 20.7 % (12.1-15.1); White Blood Count 7.22 10^3/uL (3.29-11.43)
[2023-10-14] MEDS: escitalopram 10 mg Tablet PO (05:31)
[2023-10-14] MEDS: meropenem 500 mg SDV IVP ×2 (05:31→17:25)
[2023-10-14] MEDS: pantoprazole DR 40 mg Tablet PO ×2 (05:31→17:13)
[2023-10-14 05:33] LABS: Procalcitonin 0.51 ng/mL (0-0.5)
[2023-10-14 05:40] LABS: Alanine Aminotransferase 13 U/L (0-41); Albumin Level 3.3 g/dL (3.5-5.2); Alkaline Phosphatase 305 U/L (40-130); Anion Gap 20.7 (5-19); Aspartate Amino Transferase 29 U/L (0-40); Blood Urea Nitrogen 31 mg/dL (8-23); Calcium 8.9 mg/dL (8.5-10.5); Carbon Dioxide 22 mmol/L (22-29); Chloride 94 mmol/L (98-107); Globulin 2.6 g/dL (1.3-4.6); Glomerular Filtration Rate 10.4 mL/min (90-130); Glucose 137 mg/dL (65-115); Osmolality Calculated 285 mOsm/kg (285-295); Potassium 3.7 mmol/L (3.5-5.1); Sodium 133 mmol/L (136-145); Total Bilirubin 1.4 mg/dL (0.15-1.2); Total Protein 5.9 g/dL (6.6-8.7)
[2023-10-14 05:44] LABS: Creatinine Clr Calc Pharmacy 18.3544
[2023-10-14] MEDS: oxyCODONE-APAP 5-325 mg Tablet 0.5 TAB PO ×4 (06:10→21:49)
[2023-10-14] MEDS: sucralfate 1 gm Tablet PO ×2 (06:10→17:13)
[2023-10-14 06:12] LABS: C Reactive Protein 58.7 mg/L (0.0-4.9)
[2023-10-14 06:13] LABS: NT Pro B Type Natriuretic Pept > 70000 pg/mL (0-125)
--- NOTE | 2023-10-14 07:22 | P.PN_ITS ---
Subjective 2 Subjective: no new complaints Medications: Reviewed: Yes Vitals/I&O/Wt Last Vital Signs Temp 98.4 F 10/14/23 04:00 Pulse 105 H 10/14/23 04:00 Resp 18 10/14/23 06:10 BP 121/76 10/14/23 04:00 Pulse Ox 96 10/14/23 04:00 O2 Del Method Nasal Cannula 10/14/23 04:00 O2 Flow Rate 1 10/14/23 04:00 10/13/23 10/14/23 10/14/23 22:59 06:59 14:59 Intake Total 360 / 960 120 / 1080 Balance 360 / 960 120 / 1080 Weight last 48 hrs Weight 124.693 kg Weight 122.7 kg Physical Exam 2 Narrative: AWAKE , ALERT NO DISTRESS S1S2 RRR per report Lungs clear per report No edema Data 10/14/23 04:07 10/14/23 04:07 Micro: Microbiology 10/11/23 18:23 Anaerobic Culture - Preliminary Penis 10/11/23 18:23 Gram Stain - Final Ankle - Penile Body Fluid Culture - Preliminary Gram Negative Rods 10/11/23 18:23 Catheter Tip Culture - Preliminary Groin Gram Negative Rods 10/11/23 15:33 Urine Culture - Preliminary Urine,Clean Catch Gram Negative Rods A&P Assessment and plan (1) ESRD (end stage renal disease): 1. End-stage renal disease: On MWF schedule as outpatient,HD today , ultrafiltration as tolerated 2. History of hypertension resume home medications 3. Anemia: Will order SALENA with HD 4. History of CHF, with volume overload, HD as above 5. Sepsis, possible from UTI , Attestations 2 Medical Necessity Statement*: per medicine Coding Level of Care Code Acute Code for Chg Fwd Diagnoses ESRD (end stage renal disease) N18.6
--- NOTE | 2023-10-14 08:03 | PC.HD ---
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 Patient c/o 6/10 back and scrotum pain. Primary RN aware; no pain meds due currently.
[2023-10-14] MEDS: albumin 12.5 GM/50 ML VIAL IV ×2 (08:26→08:53)
--- NOTE | 2023-10-14 08:30 | P.PN_ITS ---
Subjective 2 Subjective: Patient seen and examined. Pain controlled Vitals/I&O/Wt Last Vital Signs Temp 98.3 F 10/15/23 07:44 Pulse 85 10/15/23 07:44 Resp 16 10/15/23 07:44 BP 102/64 10/15/23 07:44 Pulse Ox 93 10/15/23 07:44 O2 Del Method Nasal Cannula 10/15/23 07:44 O2 Flow Rate 2 10/15/23 05:30 10/14/23 10/15/23 10/15/23 22:59 06:59 14:59 Intake Total 940 / 1640 0 / 1640 Output Total 3624 0 / 3624 Balance / Weight last 48 hrs Weight 263 lb 10.766 oz Physical Exam 2 Narrative: General: No acute distress, awake alert and oriented x 3 : There is still an open circumferential wound of his penis shaft with exudate and decreased erythema and edema Data 10/15/23 05:15 10/15/23 05:15 Micro: Microbiology 10/11/23 18:23 Anaerobic Culture - Preliminary Penis 10/11/23 18:23 Catheter Tip Culture - Preliminary Groin Gram Negative Rods 10/11/23 18:23 Gram Stain - Final Ankle - Penile Body Fluid Culture - Preliminary Proteus mirabilis A&P Assessment and plan (1) Balanoposthitis: (2) Open wound of penis: Plan His penile wound does have exudate and requires debridement. I believe we can treat this with chemical debridement Santyl twice daily as we cannot really put a bandage on this and I do not believe there is long enough contact with the medication Will follow Medical management per hospitalist Attestations 2 Medical Necessity Statement*: Per primary Coding Level of Care Code 68917 Diagnoses Balanoposthitis N47.6 Open wound of penis S31.20XA
[2023-10-14] MEDS: collagenase oint 30 gm 1 APPLIC TOPICAL ×2 (09:54→17:25)
[2023-10-14] MEDS: aspirin 81 mg EC Tablet PO (09:56)
[2023-10-14] MEDS: cyanocobalamin 1,000 mcg Tablet 1000 MCG PO (09:56)
[2023-10-14] MEDS: miconazole 2% topical cream 28 gm 1 APPLIC TOPICAL ×2 (11:40→21:51)
[2023-10-14] MEDS: vancomycin 1,000 MG in sodium chloride 0.9% 250 ML 250 MG IV (14:46)
--- NOTE | 2023-10-14 15:16 | P.PN_ITS ---
Subjective 2 Subjective: Patient was seen this morning, denies any fevers, no chills, no cough continues to complain of lower extremity edema, Vitals/I&O/Wt Last Vital Signs Temp 98.2 F 10/14/23 11:10 Pulse 98 10/14/23 11:10 Resp 16 10/14/23 11:39 BP 105/77 10/14/23 11:10 Pulse Ox 96 10/14/23 04:00 O2 Del Method Nasal Cannula 10/14/23 04:00 O2 Flow Rate 1 10/14/23 04:00 10/14/23 10/14/23 10/14/23 06:59 14:59 22:59 Intake Total 120 / 1080 700 / 700 Output Total 3600 / 3600 Balance 120 / 1080 -2900 / -2900 Weight last 48 hrs Weight 119.6 kg Weight 124.693 kg Physical Exam 2 Const: COMMON NORMALS: no acute distress and patient oriented x3 Resp: COMMON NORMALS: normal respiratory effort, No retractions, No use of accessory muscles and clear to auscultation bilaterally AUSCULTATION: clear to auscultation bilaterally Cardio: COMMON NORMALS: regular rate, regular rhythm, S1 normal heart sound present and S2 normal heart sound present RATE: regular rate RHYTHM: r egular rhythm HEART SOUNDS: S1 normal heart sound present and S2 normal heart sound present GI: COMMON NORMALS: Normal to inspection, nondistended, normoactive bowel sounds present and non-tender Extremity: NARRATIVE EXTREMITY EXAM: 2+ pitting edema bilateral extremity Neuro: COMMON NORMALS: patient oriented x3 Psych: COMMON NORMALS: mental status grossly normal Skin: NARRATIVE SKIN EXAM: Penile head, erythema, swelling significantly reduced, it scant discharge from penile head, does have purulent drainage behind the penile head although improved Data 10/14/23 04:07 10/14/23 04:07 Micro: Microbiology 10/11/23 18:23 Anaerobic Culture - Preliminary Penis 10/11/23 18:23 Catheter Tip Culture - Preliminary Groin Gram Negative Rods 10/11/23 18:23 Gram Stain - Final Ankle - Penile Body Fluid Culture - Preliminary Proteus mirabilis 10/11/23 15:33 Urine Culture - Preliminary Urine,Clean Catch Gram Negative Rods A&P Assessment and plan (1) UTI (urinary tract infection): (2) Penile discharge: (3) Balanoposthitis: (4) Complication of Holly catheter: (5) Holly catheter in place on admission: (6) Sepsis: Plan CAUTI with concern for balanoposthitis ? Holly catheter removed -CT abdomen pelvis with IV contrast no acute findings Currently patient denies any pain, no fevers overnight, continues to have purulent drainage from penile head CRP 83.1, Pro-Zachary 0.57 ? Catheter tip culture showing gram-negative rods ? Urine culture showing gram-negative rods -Cultures from penile discharge showing gram-negative rods ? Plan ? Continue dressing changes ? Topical mupirocin, as patient continues to have purulent drainage, possible fungal infection? Add miconazole cream ? Continue vancomycin ? Continue Zosyn -Hold midodrine blood pressures have improved ? Follow urine cultures ? Follow cultures of purulent drainage from penile head ? Gonorrhea chlamydia cultures ? Catheter tip cultures Sepsis, resolved ? Sepsis features met given evidence of infection, UTI, lactic acid, Pro-Zachary, CRP, soft blood pressures Missed dialysis, end-stage renal disease on dialysis Is fluid overloaded ? Possible plans on dialysis today Sacral DTI's, ? Continue repositioning Atrial fibrillation, not on anticoagulation due to chronic anemia NSTEMI ? No chest pain complaints ? 6-hour troponin 350, delta of 42.2, most recent troponin 329 ? Patient's prior troponins have been as high as 400 -Last cardiac catheterization in December 2022 2. Mild coronary artery disease. Normal LV ejection fraction of 55%. LVEDP of 21 mmHg. The right catheterization revealed mean right atrial pressure of 18. PA pressure was 87/35 with a mean of 56, consistent with a severe pulmonary hypertension. Pulmonary capillary wedge pressure was 28. The RV pressure was 85/4 with a mean of 20. Cardiac output by Mandy's is 6.0 with a cardiac index of 3.0 L/m2. -Continue aspirin, statin, beta-reggie currently on hold due to low blood pressures -Repeat cardiac echo CONCLUSIONS Abnormal (paradoxical) septal motion consistent with postoperative status. Normal LV size with a slightly diminished ejection fraction 50%. Diffuse hypokinesis of right ventricle with slightly diminished ejection fraction. Moderately biatrial enlargement. The bio prosthetic valve in the aortic position appears to be well-seated. Thickened mitral valve. Possible mitral annular ring. At least moderate eccentric mitral regurgitation. The prosthetic valve in the aortic position appears to be well- seated. Peak velocity across the valve is 2.1 m/s Mild tricuspid valve regurgitation. No intracardiac masses There is no pericardial effusion. Estimated pulmonary artery peak systolic pressure 45 mmHg There is no pericardial effusion. There are no intracardiac masses. Compared to the study from 07/15/2023 the ejection fraction estimation could not be compared because of the difference in the technical quality of the studies. History of fluid overload, diastolic CHF exacerbation 2+ pitting edema Continues to have fluid overload, receiving hemodialysis today COPD CHF CAD Full code Heparin for DVT prophylaxis Cardiac diet Patient continues to have exudate on the penile head, add on topical antifungal cream, to see if that will help, continue IV antibiotics, continue to monitor closely Attestations 2 Medical Necessity Statement*: Patient requires hospitalization for balanoposthitis, UTI, fluid overload, requiring dialysis Diagnoses UTI (urinary tract infection) N39.0 Penile discharge R36.9 Balanoposthitis N47.6 Complication of Holly catheter T83.9XXA Holly catheter in place on admission Z97.8 Sepsis A41.9
[2023-10-14] MEDS: water for injection-sterile 10 ML 240 ML (17:27)
[2023-10-14] MEDS: tamsulosin 0.4 mg Capsule PO (21:30)
[2023-10-14] MEDS: atorvastatin 40 mg Tablet PO (21:30)
[2023-10-14] MEDS: amiodarone 200 mg Tablet PO (21:30)
[2023-10-14] MEDS: ropinirole 2 mg Tablet PO (21:30)
[2023-10-14] MEDS: ipratropium-albuterol 3 mL Neb INHALATION (22:17)
--- NOTE | 2023-10-14 23:38 | PC.NURSE ---
Patient's urine is brown/tea-colored. Patient only voided a few drops into urinal. Post-void bladder scan shows 48 ml.
[2023-10-15] VITALS (14 sets, daily range): BP systolic 102–122; BP diastolic 64–78; PULSE 79–117; RESP 14–19; TEMP 36.3–36.8; O2SAT 92–98
[2023-10-15] MEDS: meropenem 500 mg SDV IVP ×2 (04:39→20:24)
[2023-10-15] MEDS: pantoprazole DR 40 mg Tablet PO ×2 (04:39→17:39)
[2023-10-15] MEDS: heparin 5,000 unit/mL INJ 1 mL 5000 UNIT SUBCUT ×2 (04:39→14:43)
[2023-10-15] MEDS: escitalopram 10 mg Tablet PO (04:39)
[2023-10-15] MEDS: sucralfate 1 gm Tablet PO ×2 (04:39→17:39)
[2023-10-15] MEDS: oxyCODONE-APAP 5-325 mg Tablet 0.5 TAB PO ×2 (04:56→09:15)
[2023-10-15 05:24] LABS: Basophils # 0.1 10^3/uL (0.0-0.1); Basophils % 1.4 %; Eosinophils # 0.1 10^3/uL (0.0-0.8); Eosinophils % 1.3 %; Hematocrit 29.8 % (37-53); Lymphocytes # 0.9 10^3/uL (0.8-4.8); Lymphocytes % 14.9 %; Mean Corpuscular HGB Conc 30.5 g/dL (30-55); Mean Corpuscular Volume 101.4 fl (82-101); Mean Platelet Volume 10.3 fL (7.4-10.4); Monocytes # 0.7 10^3/uL (0.2-0.9); Monocytes % 11.4 %; Neutrophils # 4.41 10^3/uL (1.8-7.7); Neutrophils % 70.7 %; Nucleated Red Blood Cells % 0 %; Platelet Count 109 10^3/cmm (157-399); Red Blood Count 2.94 10^6/uL (3.85-5.65); Red Cell Distribution Width 20.6 % (12.1-15.1); White Blood Count 6.24 10^3/uL (3.29-11.43)
[2023-10-15] MEDS: ipratropium-albuterol 3 mL Neb INHALATION (05:30)
[2023-10-15 05:42] LABS: Vancomycin Random 25.1 ug/mL (20.0-40.0)
[2023-10-15 05:43] LABS: Alanine Aminotransferase 12 U/L (0-41); Albumin Level 3.6 g/dL (3.5-5.2); Alkaline Phosphatase 300 U/L (40-130); Aspartate Amino Transferase 30 U/L (0-40); Blood Urea Nitrogen 26 mg/dL (8-23); Calcium 9.2 mg/dL (8.5-10.5); Carbon Dioxide 25 mmol/L (22-29); Chloride 99 mmol/L (98-107); Creatinine Clr Calc Pharmacy 20.5203; Globulin 2.5 g/dL (1.3-4.6); Glomerular Filtration Rate 12.1 mL/min (90-130); Glucose 132 mg/dL (65-115); Osmolality Calculated 293 mOsm/kg (285-295); Phosphorus 2.8 mg/dL (2.5-4.5); Sodium 138 mmol/L (136-145); Total Bilirubin 1.5 mg/dL (0.15-1.2); Total Protein 6.1 g/dL (6.6-8.7)
[2023-10-15 05:44] LABS: C Reactive Protein 50.9 mg/L (0.0-4.9)
[2023-10-15 05:53] LABS: Procalcitonin 0.46 ng/mL (0-0.5)
[2023-10-15 06:33] LABS: NT Pro B Type Natriuretic Pept > 70000 pg/mL (0-125)
[2023-10-15] MEDS: collagenase oint 30 gm 1 APPLIC TOPICAL ×2 (08:09→17:40)
[2023-10-15] MEDS: miconazole 2% topical cream 28 gm 1 APPLIC TOPICAL ×2 (08:09→17:40)
[2023-10-15] MEDS: cyanocobalamin 1,000 mcg Tablet 1000 MCG PO (08:09)
[2023-10-15] MEDS: aspirin 81 mg EC Tablet PO (08:09)
--- NOTE | 2023-10-15 08:32 | PM.PN ---
Subjective Subjective: Patient seen and examined. He looks comfortable and not in pain Vitals/I&O/Wt Last Vital Signs Temp 98.3 F 10/15/23 07:44 Pulse 85 10/15/23 07:44 Resp 16 10/15/23 07:44 BP 102/64 10/15/23 07:44 Pulse Ox 93 10/15/23 07:44 O2 Del Method Nasal Cannula 10/15/23 07:44 O2 Flow Rate 2 10/15/23 05:30 10/14/23 10/15/23 10/15/23 22:59 06:59 14:59 Intake Total 940 / 1640 0 / 1640 Output Total / 5 0 / 5 Balance / 0 / Weight last 48 hrs Weight 263 lb 10.766 oz Physical Exam Narrative: General: No acute distress, awake alert and oriented x 3 : There is still an open circumferential wound of his penis shaft with exudate and decreased erythema and edema. Exudate is beginning to slough Data 10/15/23 05:15 10/15/23 05:15 Micro: Microbiology 10/11/23 18:23 Anaerobic Culture - Preliminary Penis 10/11/23 18:23 Catheter Tip Culture - Preliminary Groin Gram Negative Rods 10/11/23 18:23 Gram Stain - Final Ankle - Penile Body Fluid Culture - Preliminary Proteus mirabilis A&P Assessment and plan (1) Balanoposthitis: (2) Open wound of penis: Plan His penile wound does have exudate and requires debridement. I believe we can treat this with chemical debridement Santyl twice daily as we cannot really put a bandage on this and I do not believe there is long enough contact with the medication Will follow Medical management per hospitalist Attestations Medical Necessity Statement*: Per primary Coding Level of Care Code 11130 Diagnoses Balanoposthitis N47.6 Open wound of penis S31.20XA
--- NOTE | 2023-10-15 12:26 | P.PN_ITS ---
Subjective 2 Subjective: s/p hD yesterday denies any complaints Medications: Reviewed: Yes Vitals/I&O/Wt Last Vital Signs Temp 97.6 F 10/15/23 11:35 Pulse 82 10/15/23 11:35 Resp 14 10/15/23 11:35 BP 112/74 10/15/23 11:35 Pulse Ox 92 10/15/23 11:35 O2 Del Method Nasal Cannula 10/15/23 11:35 O2 Flow Rate 2 10/15/23 05:30 10/14/23 10/15/23 10/15/23 22:59 06:59 14:59 Intake Total 940 / 1640 0 / 1640 360 / 360 Output Total / 5 0 / 3625 Balance 915 / 0 / 360 / 360 Weight last 48 hrs Weight 119.6 kg Physical Exam 2 Narrative: AWAKE , ALERT NO DISTRESS S1S2 RRR per report Lungs clear per report No edema Data 10/16/23 02:38 10/16/23 02:38 Micro: Microbiology 10/11/23 15:33 Urine Culture - Preliminary Urine,Clean Catch Proteus mirabilis Strep species, gamma-hemolytic Coag negative Staphylococcus 10/11/23 18:23 Catheter Tip Culture - Preliminary Groin Proteus mirabilis 10/11/23 18:23 Anaerobic Culture - Preliminary Penis 10/11/23 18:23 Gram Stain - Final Ankle - Penile Body Fluid Culture - Preliminary Proteus mirabilis A&P Assessment and plan (1) ESRD (end stage renal disease): 1. End-stage renal disease: On MWF schedule as outpatient,HD today , ultrafiltration as tolerated 2. History of hypertension resume home medications 3. Anemia: Will order SALENA with HD 4. History of CHF, with volume overload, HD as above 5. Sepsis, possible from UTI ,penile wound Attestations 2 Medical Necessity Statement*: per niall Coding Level of Care Code Acute Code for Chg Fwd Diagnoses ESRD (end stage renal disease) N18.6
--- NOTE | 2023-10-15 15:38 | P.PN_ITS ---
Subjective 2 Subjective: Patient was seen this morning, he denies any fevers, chills, cough, continues to have pitting edema, no shortness of breath complaints Vitals/I&O/Wt Last Vital Signs Temp 97.6 F 10/15/23 11:35 Pulse 82 10/15/23 11:35 Resp 14 10/15/23 11:35 BP 112/74 10/15/23 11:35 Pulse Ox 92 10/15/23 11:35 O2 Del Method Nasal Cannula 10/15/23 11:35 O2 Flow Rate 2 10/15/23 05:30 10/15/23 10/15/23 10/15/23 06:59 14:59 22:59 Intake Total 0 / 1640 600 / 600 Output Total 0 / 3625 Balance 0 / 600 / 600 Weight last 48 hrs Weight 119.6 kg Physical Exam 2 Const: COMMON NORMALS: no acute distress and patient oriented x3 Resp: COMMON NORMALS: normal respiratory effort, No retractions, No use of accessory muscles and clear to auscultation bilaterally AUSCULTATION: clear to auscultation bilaterally Cardio: COMMON NORMALS: regular rate, regular rhythm, S1 normal heart sound present and S2 normal heart sound present RATE: regular rate RHYTHM: r egular rhythm HEART SOUNDS: S1 normal heart sound present and S2 normal heart sound present GI: COMMON NORMALS: Normal to inspection, nondistended, normoactive bowel sounds present and non-tender Extremity: NARRATIVE EXTREMITY EXAM: 2+ pitting edema Neuro: COMMON NORMALS: patient oriented x3 Psych: COMMON NORMALS: mental status grossly normal Data 10/15/23 05:15 10/15/23 05:15 Micro: Microbiology 10/11/23 18:23 Anaerobic Culture - Preliminary Penis 10/11/23 18:23 Catheter Tip Culture - Preliminary Groin Proteus mirabilis 10/11/23 18:23 Gram Stain - Final Ankle - Penile Body Fluid Culture - Preliminary Proteus mirabilis Enterococcus faecalis 10/11/23 15:33 Urine Culture - Preliminary Urine,Clean Catch Proteus mirabilis Strep species, gamma-hemolytic Coag negative Staphylococcus A&P Assessment and plan (1) UTI (urinary tract infection): (2) Penile discharge: (3) Balanoposthitis: (4) Complication of Holly catheter: (5) Holly catheter in place on admission: (6) Sepsis: Plan CAUTI with concern for balanoposthitis ? Holly catheter removed -CT abdomen pelvis with IV contrast no acute findings Currently patient denies any pain, no fevers overnight, continues to have purulent drainage from penile head CRP 83.1, Pro-Zachary 0.57 -Catheter tip culture showing Proteus -Penile culture showing Proteus, Enterococcus faecalis -Urine culture showing Proteus, strep species negative staph ? Plan ? Continue dressing changes ? Topical mupirocin, as patient continues to have purulent drainage, possible fungal infection? Add miconazole cream ? Continue vancomycin ? Continue Zosyn -Hold midodrine blood pressures have improved ? Follow urine cultures ? Follow cultures of purulent drainage from penile head ? Gonorrhea chlamydia cultures ? Catheter tip cultures Sepsis, resolved ? Sepsis features met given evidence of infection, UTI, lactic acid, Pro-Zachary, CRP, soft blood pressures Missed dialysis, end-stage renal disease on dialysis Is fluid overloaded ? Possible plans on dialysis today Sacral DTI's, ? Continue repositioning Atrial fibrillation, not on anticoagulation due to chronic anemia NSTEMI ? No chest pain complaints ? 6-hour troponin 350, delta of 42.2, most recent troponin 329 ? Patient's prior troponins have been as high as 400 -Last cardiac catheterization in December 2022 2. Mild coronary artery disease. Normal LV ejection fraction of 55%. LVEDP of 21 mmHg. The right catheterization revealed mean right atrial pressure of 18. PA pressure was 87/35 with a mean of 56, consistent with a severe pulmonary hypertension. Pulmonary capillary wedge pressure was 28. The RV pressure was 85/4 with a mean of 20. Cardiac output by Mandy's is 6.0 with a cardiac index of 3.0 L/m2. -Continue aspirin, statin, beta-reggie currently on hold due to low blood pressures -Repeat cardiac echo CONCLUSIONS Abnormal (paradoxical) septal motion consistent with postoperative status. Normal LV size with a slightly diminished ejection fraction 50%. Diffuse hypokinesis of right ventricle with slightly diminished ejection fraction. Moderately biatrial enlargement. The bio prosthetic valve in the aortic position appears to be well-seated. Thickened mitral valve. Possible mitral annular ring. At least moderate eccentric mitral regurgitation. The prosthetic valve in the aortic position appears to be well- seated. Peak velocity across the valve is 2.1 m/s Mild tricuspid valve regurgitation. No intracardiac masses There is no pericardial effusion. Estimated pulmonary artery peak systolic pressure 45 mmHg There is no pericardial effusion. There are no intracardiac masses. Compared to the study from 07/15/2023 the ejection fraction estimation could not be compared because of the difference in the technical quality of the studies. History of fluid overload, diastolic CHF exacerbation 2+ pitting edema Continues to have fluid overload, receiving hemodialysis today COPD CHF CAD Full code Heparin for DVT prophylaxis Cardiac diet Patient continues to have fluid overload concern, will discuss with nephrology about possibly dialyzing him today, to help with fluid overload Attestations 2 Medical Necessity Statement*: Patient requires hospitalization for catheter associated UTI, fluid overload, requiring dialysis Diagnoses UTI (urinary tract infection) N39.0 Penile discharge R36.9 Balanoposthitis N47.6 Complication of Holly catheter T83.9XXA Holly catheter in place on admission Z97.8 Sepsis A41.9
[2023-10-15] MEDS: albumin 12.5 GM/50 ML VIAL IV ×2 (16:55→17:23)
--- NOTE | 2023-10-15 17:00 | PC.HD ---
Hemodialysis per Dr. Downing's verbal orders; awaiting placement of orders. 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 Treatment initiated without difficulty. Albumin prn initiated at treatment start due to historically low BPs during dialysis.
[2023-10-15] MEDS: ropinirole 2 mg Tablet PO (20:23)
[2023-10-15] MEDS: amiodarone 200 mg Tablet PO (20:23)
[2023-10-15] MEDS: oxyCODONE-APAP 5-325 mg Tablet 1 TAB PO (20:23)
[2023-10-15] MEDS: atorvastatin 40 mg Tablet PO (20:23)
[2023-10-15] MEDS: tamsulosin 0.4 mg Capsule PO (20:23)
--- NOTE | 2023-10-15 21:57 | PC.NURSE ---
Patient returned back to their room from dialysis at 2004 with no complications at this moment in time. Will continue to monitor patient.
[2023-10-15] MEDS: acetaminophen 325 mg Tablet 650 MG PO (22:45)
[2023-10-16] VITALS (16 sets, daily range): BP systolic 94–129; BP diastolic 57–93; PULSE 100–120; RESP 16–20; TEMP 36.4–36.9; O2SAT 92–99
[2023-10-16] MEDS: heparin 5,000 unit/mL INJ 1 mL 5000 UNIT SUBCUT ×2 (03:26→14:32)
[2023-10-16 03:33] LABS: Basophils # 0.1 10^3/uL (0.0-0.1); Eosinophils # 0.1 10^3/uL (0.0-0.8); Eosinophils % 2.7 %; Hematocrit 30.4 % (37-53); Lymphocytes # 0.9 10^3/uL (0.8-4.8); Lymphocytes % 16.8 %; Mean Corpuscular HGB Conc 30.3 g/dL (30-55); Mean Corpuscular Hemoglobin 31.6 pg (27-33); Mean Corpuscular Volume 104.5 fl (82-101); Mean Platelet Volume 10.9 fL (7.4-10.4); Monocytes # 0.5 10^3/uL (0.2-0.9); Monocytes % 10.3 %; Neutrophils # 3.61 10^3/uL (1.8-7.7); Nucleated Red Blood Cells % 0 %; Platelet Count 122 10^3/cmm (157-399); Red Blood Count 2.91 10^6/uL (3.85-5.65); Red Cell Distribution Width 20.5 % (12.1-15.1); White Blood Count 5.23 10^3/uL (3.29-11.43)
[2023-10-16 03:53] LABS: Vancomycin Random 18.9 ug/mL (20.0-40.0)
[2023-10-16 04:10] LABS: Alanine Aminotransferase 11 U/L (0-41); Alkaline Phosphatase 296 U/L (40-130); Anion Gap 17.4 (5-19); Aspartate Amino Transferase 28 U/L (0-40); Blood Urea Nitrogen 19 mg/dL (8-23); C Reactive Protein 48.7 mg/L (0.0-4.9); Calcium 9.2 mg/dL (8.5-10.5); Carbon Dioxide 27 mmol/L (22-29); Chloride 97 mmol/L (98-107); Creatinine Clr Calc Pharmacy 26.5297; Globulin 2.1 g/dL (1.3-4.6); Glomerular Filtration Rate 16.3 mL/min (90-130); Glucose 93 mg/dL (65-115); Osmolality Calculated 286 mOsm/kg (285-295); Phosphorus 2.5 mg/dL (2.5-4.5); Potassium 4.4 mmol/L (3.5-5.1); Sodium 137 mmol/L (136-145); Total Bilirubin 1.7 mg/dL (0.15-1.2); Total Protein 6.1 g/dL (6.6-8.7)
[2023-10-16 04:34] LABS: NT Pro B Type Natriuretic Pept > 70000 pg/mL (0-125)
[2023-10-16] MEDS: oxyCODONE-APAP 5-325 mg Tablet 1 TAB PO ×3 (04:34→20:54)
[2023-10-16] MEDS: pantoprazole DR 40 mg Tablet PO ×2 (05:38→16:59)
[2023-10-16] MEDS: escitalopram 10 mg Tablet PO (05:38)
[2023-10-16] MEDS: sucralfate 1 gm Tablet PO ×2 (05:38→16:59)
[2023-10-16] MEDS: meropenem 500 mg SDV IVP ×2 (05:39→16:59)
[2023-10-16] MEDS: cyanocobalamin 1,000 mcg Tablet 1000 MCG PO (08:20)
[2023-10-16] MEDS: aspirin 81 mg EC Tablet PO (08:20)
[2023-10-16] MEDS: collagenase oint 30 gm 1 APPLIC TOPICAL ×2 (08:23→16:59)
[2023-10-16] MEDS: miconazole 2% topical cream 28 gm 1 APPLIC TOPICAL ×2 (08:24→16:59)
[2023-10-16 09:52] LABS: Vitamin B12 1699 pg/mL (232-1245)
[2023-10-16 09:53] LABS: Folate Level 6.7 ng/mL (4.5-32.2)
[2023-10-16] MEDS: albumin 12.5 GM/50 ML VIAL IV ×3 (11:05→11:56)
[2023-10-16] MEDS: heparin, porcine 1,000 unit/mL INJ 10 mL 1000 UNIT IV (11:06)
[2023-10-16] MEDS: heparin, porcine 1,000 unit/mL INJ 10 mL 10000 UNIT INTRACATH (11:06)
--- NOTE | 2023-10-16 11:17 | P.PN_ITS ---
Subjective 2 Subjective: getting HD Vitals/I&O/Wt Last Vital Signs Temp 98.0 F 10/16/23 08:00 Pulse 109 H 10/16/23 08:00 Resp 18 10/16/23 08:22 BP 107/71 10/16/23 08:00 Pulse Ox 98 10/16/23 08:00 O2 Del Method Nasal Cannula 10/16/23 08:00 O2 Flow Rate 2 10/15/23 05:30 10/15/23 10/16/23 10/16/23 22:59 06:59 14:59 Intake Total 700 / 1300 600 / 1900 120 / 120 Output Total 3600 / 3600 0 / 3600 Balance -2900 / -2300 600 / -1700 120 / 120 Weight last 48 hrs Weight 120.2 kg Physical Exam 2 Narrative: AWAKE , ALERT NO DISTRESS S1S2 RRR per report Lungs clear per report No edema Data 10/16/23 02:38 10/16/23 02:38 Micro: Microbiology 10/11/23 18:23 Anaerobic Culture - Preliminary Penis 10/11/23 18:23 Catheter Tip Culture - Final Groin Proteus mirabilis 10/11/23 18:23 Gram Stain - Final Ankle - Penile Body Fluid Culture - Preliminary Proteus mirabilis Enterococcus faecalis 10/11/23 15:33 Urine Culture - Preliminary Urine,Clean Catch Proteus mirabilis Strep species, gamma-hemolytic Coag negative Staphylococcus A&P Assessment and plan (1) ESRD (end stage renal disease): 1. End-stage renal disease: On MWF schedule as outpatient,HD again today , ultrafiltration as tolerated 2. History of hypertension resume home medications 3. Anemia: Will order SAL[place] with HD 4. History of CHF, with volume overload, HD as above 5. Sepsis, possible from UTI ,penile wound Attestations 2 Medical Necessity Statement*: per niall Coding Level of Care Code Acute Code for Chg Fwd Diagnoses ESRD (end stage renal disease) N18.6
--- NOTE | 2023-10-16 11:19 | PC.HD ---
Heparin 1000 units loading dose administered at 1054 via venous port of HD catheter per house registry rn's orders. Due to patient's history of low BPs on dialysis, dialysate temperature was lowered to 35.0C per hypotension dialysis orders, and albumin 25% was initiated at treatment start. UF goal increased to compensate for additional fluids administered.
--- NOTE | 2023-10-16 14:03 | P.PN_ITS ---
Subjective 2 Subjective: Patient was seen this morning, he denies any fevers, chills, no cough does report generalized weakness, continues to have edema bilateral extremities Vitals/I&O/Wt Last Vital Signs Temp 98.1 F 10/16/23 11:18 Pulse 110 H 10/16/23 11:18 Resp 16 10/16/23 11:18 BP 117/74 10/16/23 11:18 Pulse Ox 98 10/16/23 08:00 O2 Del Method Nasal Cannula 10/16/23 08:00 O2 Flow Rate 2 10/15/23 05:30 10/15/23 10/16/23 10/16/23 22:59 06:59 14:59 Intake Total 700 / 1300 600 / 1900 220 / 220 Output Total 3600 / 3600 0 / 3600 Balance -2900 / -2300 600 / -1700 220 / 220 Weight last 48 hrs Weight 120.2 kg Physical Exam 2 Const: COMMON NORMALS: no acute distress and patient oriented x3 Resp: COMMON NORMALS: normal respiratory effort, No retractions, No use of accessory muscles and clear to auscultation bilaterally AUSCULTATION: clear to auscultation bilaterally Cardio: COMMON NORMALS: regular rate, regular rhythm, S1 normal heart sound present and S2 normal heart sound present RATE: regular rate RHYTHM: r egular rhythm HEART SOUNDS: S1 normal heart sound present and S2 normal heart sound present GI: COMMON NORMALS: Normal to inspection, nondistended, normoactive bowel sounds present and non-tender Extremity: COMMON NORMALS: no pedal edema Neuro: COMMON NORMALS: patient oriented x3 Psych: COMMON NORMALS: mental status grossly normal Skin: NARRATIVE SKIN EXAM: Penile examination, no significant discharge from penile head, erythema has significantly reduced, but does continue to have mucopurulent of skin behind penile head Data 10/16/23 02:38 10/16/23 02:38 Micro: Microbiology 10/11/23 18:23 Gram Stain - Final Ankle - Penile Body Fluid Culture - Preliminary Proteus mirabilis Enterococcus faecalis 10/11/23 18:23 Anaerobic Culture - Preliminary Penis 10/11/23 18:23 Catheter Tip Culture - Final Groin Proteus mirabilis 10/11/23 15:33 Urine Culture - Preliminary Urine,Clean Catch Proteus mirabilis Strep species, gamma-hemolytic Coag negative Staphylococcus A&P Assessment and plan (1) UTI (urinary tract infection): (2) Penile discharge: (3) Balanoposthitis: (4) Complication of Holly catheter: (5) Holly catheter in place on admission: (6) Sepsis: Plan CAUTI with concern for balanoposthitis ? Holly catheter removed -CT abdomen pelvis with IV contrast no acute findings Currently patient denies any pain, no fevers overnight, continues to have purulent drainage from penile head CRP 83.1, Pro-Zachary 0.57 -Catheter tip culture showing Proteus -Penile culture showing Proteus, Enterococcus faecalis -Urine culture showing Proteus, strep species negative staph ? Plan ? Continue dressing changes ? Topical mupirocin, as patient continues to have purulent drainage, possible fungal infection? Add miconazole cream ? Continue vancomycin ? Continue Zosyn -Hold midodrine blood pressures have improved ? Follow urine cultures ? Follow cultures of purulent drainage from penile head ? Gonorrhea chlamydia cultures ? Catheter tip cultures Sepsis, resolved ? Sepsis features met given evidence of infection, UTI, lactic acid, Pro-Zachary, CRP, soft blood pressures Missed dialysis, end-stage renal disease on dialysis Is fluid overloaded ? Possible plans on dialysis today Sacral DTI's, ? Continue repositioning Atrial fibrillation, not on anticoagulation due to chronic anemia NSTEMI ? No chest pain complaints ? 6-hour troponin 350, delta of 42.2, most recent troponin 329 ? Patient's prior troponins have been as high as 400 -Last cardiac catheterization in December 2022 2. Mild coronary artery disease. Normal LV ejection fraction of 55%. LVEDP of 21 mmHg. The right catheterization revealed mean right atrial pressure of 18. PA pressure was 87/35 with a mean of 56, consistent with a severe pulmonary hypertension. Pulmonary capillary wedge pressure was 28. The RV pressure was 85/4 with a mean of 20. Cardiac output by Mandy's is 6.0 with a cardiac index of 3.0 L/m2. -Continue aspirin, statin, beta-reggie currently on hold due to low blood pressures -Repeat cardiac echo CONCLUSIONS Abnormal (paradoxical) septal motion consistent with postoperative status. Normal LV size with a slightly diminished ejection fraction 50%. Diffuse hypokinesis of right ventricle with slightly diminished ejection fraction. Moderately biatrial enlargement. The bio prosthetic valve in the aortic position appears to be well-seated. Thickened mitral valve. Possible mitral annular ring. At least moderate eccentric mitral regurgitation. The prosthetic valve in the aortic position appears to be well- seated. Peak velocity across the valve is 2.1 m/s Mild tricuspid valve regurgitation. No intracardiac masses There is no pericardial effusion. Estimated pulmonary artery peak systolic pressure 45 mmHg There is no pericardial effusion. There are no intracardiac masses. Compared to the study from 07/15/2023 the ejection fraction estimation could not be compared because of the difference in the technical quality of the studies. History of fluid overload, diastolic CHF exacerbation 2+ pitting edema Continues to have fluid overload, receiving hemodialysis today COPD CHF CAD Full code Heparin for DVT prophylaxis Cardiac diet Patient requires hospitalization for fluid overload, requiring dialysis, UTI, requiring IV antibiotics, cultures so far pending for coagulase-negative staphylococci Attestations 2 Medical Necessity Statement*: Patient requires hospitalization for UTI, fluid overload Diagnoses UTI (urinary tract infection) N39.0 Penile discharge R36.9 Balanoposthitis N47.6 Complication of Holly catheter T83.9XXA Holly catheter in place on admission Z97.8 Sepsis A41.9
[2023-10-16] MEDS: vancomycin 1,000 MG in sodium chloride 0.9% 250 ML 250 MG IV (14:32)
--- NOTE | 2023-10-16 20:04 | P.PN_ITS ---
Subjective 2 Subjective: No complaints Vitals/I&O/Wt Last Vital Signs Temp 98.0 F 10/16/23 16:00 Pulse 120 H 10/16/23 16:00 Resp 19 H 10/16/23 16:00 BP 94/57 10/16/23 16:00 Pulse Ox 92 10/16/23 16:00 O2 Del Method Room Air 10/16/23 16:00 O2 Flow Rate 2 10/15/23 05:30 10/16/23 10/16/23 10/16/23 06:59 14:59 22:59 Intake Total 600 / 1900 870 / 870 540 / 1410 Output Total 0 / 3600 3650 / 3650 Balance 600 / -1700 -2780 / -2780 540 / -2240 Weight last 48 hrs Weight 259 lb 14.8 oz Weight 264 lb 15.93 oz Physical Exam 2 Narrative: Patient is a well developed well nourished and in NAD and is afebrile with vitals stable and is answering questions appropriately with a normal affect and is alert and oriented x3 HEENT: normocephalic with normal external ears and nonicteric, oral mucosa moist and dentition normal for age, trachea midline with no large masses visualized Heart: RRR, no gallops murmurs or rubs, normal PMI with no thrills Lungs: normal excursions, no loud audible wheezing, no subcutaneous emphysema Abdomen: nondistended, no gross hepatosplenomegaly, no masses, no rigidity or rebound, no loud borborygmi Neuro: nonfocal, FERNANDEZ, grossly normal sensation Musculoskeletal: good muscle tone, no fasciculations Skin: pink warm and dry with no rashes or ecchymosis, edema and reddened lower distal legs Vascular: good radial pulses, no ulceration, less than 2 second capillary refill in hand : 1 cm wide and 3-4 cm long wound along glans penis groove and on dorsum of penis Data 10/16/23 02:38 10/16/23 02:38 Micro: Microbiology 10/11/23 18:23 Gram Stain - Final Ankle - Penile Body Fluid Culture - Preliminary Proteus mirabilis Enterococcus faecalis 10/11/23 18:23 Anaerobic Culture - Preliminary Penis 10/11/23 18:23 Catheter Tip Culture - Final Groin Proteus mirabilis 07/29/24 15:33 Urine Culture - Preliminary Urine,Clean Catch Proteus mirabilis Strep species, gamma-hemolytic Coag negative Staphylococcus A&P Assessment and plan (1) Open wound of penis: Plan continue santyl and antifungal cream to penile wound. Consider biopsy of wound if it does not heal. It does not appear to be a chancre. Attestations 2 Medical Necessity Statement*: See attendings note. Coding Level of Care Code 73566 Diagnoses Open wound of penis S31.20XA
[2023-10-16] MEDS: tamsulosin 0.4 mg Capsule PO (20:50)
[2023-10-16] MEDS: atorvastatin 40 mg Tablet PO (20:50)
[2023-10-16] MEDS: ropinirole 2 mg Tablet PO (20:50)
[2023-10-16] MEDS: amiodarone 200 mg Tablet PO (20:50)
[2023-10-16] MEDS: acetaminophen 325 mg Tablet 650 MG PO (22:51)
[2023-10-17] VITALS (14 sets, daily range): BP systolic 92–118; BP diastolic 54–76; PULSE 99–112; RESP 12–22; TEMP 36.7–36.9; O2SAT 90–99
[2023-10-17] MEDS: heparin 5,000 unit/mL INJ 1 mL 5000 UNIT SUBCUT ×2 (03:04→15:54)
[2023-10-17 04:18] LABS: Basophils # 0.1 10^3/uL (0.0-0.1); Eosinophils # 0.1 10^3/uL (0.0-0.8); Hematocrit 30.6 % (37-53); Lymphocytes # 1.2 10^3/uL (0.8-4.8); Lymphocytes % 19.6 %; Mean Corpuscular HGB Conc 29.7 g/dL (30-55); Mean Corpuscular Hemoglobin 30.8 pg (27-33); Mean Corpuscular Volume 103.7 fl (82-101); Mean Platelet Volume 10.5 fL (7.4-10.4); Monocytes # 0.6 10^3/uL (0.2-0.9); Monocytes % 10.2 %; Neutrophils # 3.95 10^3/uL (1.8-7.7); Neutrophils % 66.9 %; Nucleated Red Blood Cells % 0 %; Platelet Count 117 10^3/cmm (157-399); Red Blood Count 2.95 10^6/uL (3.85-5.65); Red Cell Distribution Width 20.3 % (12.1-15.1); White Blood Count 5.91 10^3/uL (3.29-11.43)
[2023-10-17 04:44] LABS: Alanine Aminotransferase 10 U/L (0-41); Albumin Level 4.4 g/dL (3.5-5.2); Alkaline Phosphatase 338 U/L (40-130); Anion Gap 19.7 (5-19); Aspartate Amino Transferase 31 U/L (0-40); Blood Urea Nitrogen 17 mg/dL (8-23); C Reactive Protein 52.6 mg/L (0.0-4.9); Calcium 9.2 mg/dL (8.5-10.5); Carbon Dioxide 25 mmol/L (22-29); Chloride 97 mmol/L (98-107); Creatinine Clr Calc Pharmacy 29.3539; Globulin 2.1 g/dL (1.3-4.6); Glomerular Filtration Rate 18.5 mL/min (90-130); Glucose 101 mg/dL (65-115); Osmolality Calculated 286 mOsm/kg (285-295); Phosphorus 2.1 mg/dL (2.5-4.5); Potassium 4.7 mmol/L (3.5-5.1); Sodium 137 mmol/L (136-145); Total Protein 6.5 g/dL (6.6-8.7)
[2023-10-17] MEDS: ipratropium-albuterol 3 mL Neb INHALATION (05:10)
[2023-10-17 05:21] LABS: NT Pro B Type Natriuretic Pept > 70000 pg/mL (0-125)
[2023-10-17] MEDS: meropenem 500 mg SDV IVP (05:33)
[2023-10-17] MEDS: escitalopram 10 mg Tablet PO (05:33)
[2023-10-17] MEDS: sucralfate 1 gm Tablet PO ×2 (05:34→18:32)
[2023-10-17] MEDS: pantoprazole DR 40 mg Tablet PO ×2 (05:34→18:32)
[2023-10-17] MEDS: oxyCODONE-APAP 5-325 mg Tablet 1 TAB PO ×2 (05:44→10:10)
--- NOTE | 2023-10-17 08:31 | P.PN_ITS ---
Subjective 2 Subjective: still swollen, breathing improved. no n/v/f/c/landa/d. + b/l edema Medications: Reviewed: Yes Medication Review Details: Current Medications Acetaminophen (Acetaminophen 325 Mg Tablet) 650 mg PO Q6H PRN PRN Reason: Mild/Mod Pain Or Temp >/= 101 Last Admin: 10/16/23 22:51 Dose: 650 mg Albuterol/Ipratropium (Ipratropium-Albuterol 3 Ml Neb) 3 ml INHALATION Q6H PRN PRN Reason: SHORTNESS OF BREATH Last Admin: 10/17/23 05:10 Dose: 3 ml Amiodarone HCl (Amiodarone 200 Mg Tablet) 200 mg PO BEDTIME [facility] Last Admin: 10/16/23 20:50 Dose: 200 mg Aspirin (Aspirin 81 Mg Ec Tablet) 81 mg PO DAILY [facility] Last Admin: 10/16/23 08:20 Dose: 81 mg Atorvastatin Calcium (Atorvastatin 40 Mg Tablet) 40 mg PO BEDTIME [facility] Last Admin: 10/16/23 20:50 Dose: 40 mg Bisacodyl (Bisacodyl 5 Mg Tablet) 10 mg PO DAILY PRN PRN Reason: Constipation Collagenase (Collagenase Oint 30 Gm) 1 applic TOPICAL BID [facility] Last Admin: 10/16/23 16:59 Dose: 1 applic Cyanocobalamin (Cyanocobalamin 1,000 Mcg Tablet) 1,000 mcg PO DAILY [facility] Last Admin: 10/16/23 08:20 Dose: 1,000 mcg Escitalopram Oxalate (Escitalopram 10 Mg Tablet) 10 mg PO QAM [facility] Last Admin: 10/17/23 05:33 Dose: 10 mg Heparin Sodium (Porcine) (Heparin 5,000 Unit/Ml Inj 1 Ml) 5,000 unit SUBCUT Q12H [facility] Last Admin: 10/17/23 03:04 Dose: 5,000 unit Sodium Chloride (Sodium Chloride 0.9%) 1,000 mls @ 0 mls/hr IV .Q0M PRN PRN Reason: hypotension or symptomatic Albumin Human (Albumin) 12.5 gm in 50 mls @ 60 mls/hr IV PRN PRN PRN Reason: Hypotension and/or symptomatic Last Infusion: 10/15/23 20:43 Dose: Infused Vancomycin HCl 1,000 mg/ (Sodium Chloride) 250 mls @ 250 mls/hr IV DIALYSIS [facility] Last Infusion: 10/16/23 16:23 Dose: Infused Sodium Chloride (Sodium Chloride 0.9%) 1,000 mls @ 0 mls/hr IV .Q0M PRN PRN Reason: hypotension or symptomatic Albumin Human (Albumin) 12.5 gm in 50 mls @ 60 mls/hr IV PRN PRN PRN Reason: Hypotension and/or symptomatic Last Infusion: 10/14/23 11:45 Dose: Infused Sodium Chloride (Sodium Chloride 0.9%) 1,000 mls @ 0 mls/hr IV .Q0M PRN PRN Reason: hypotension or symptomatic Albumin Human (Albumin) 12.5 gm in 50 mls @ 60 mls/hr IV PRN PRN PRN Reason: Hypotension and/or symptomatic Sodium Chloride (Sodium Chloride 0.9%) 1,000 mls @ 0 mls/hr IV .Q0M PRN PRN Reason: hypotension or symptomatic Albumin Human (Albumin) 12.5 gm in 50 mls @ 60 mls/hr IV PRN PRN PRN Reason: Hypotension and/or symptomatic Last Infusion: 10/16/23 16:23 Dose: Infused Meropenem (Meropenem 500 Mg Sdv) 500 mg IVP Q12H [facility]; Protocol Last Admin: 10/17/23 05:33 Dose: 500 mg Miconazole Nitrate (Miconazole 2% Topical Cream 28 Gm) 1 applic TOPICAL BID [facility] Last Admin: 10/16/23 16:59 Dose: 1 applic Ondansetron HCl (Ondansetron 2 Mg/Ml Sdv 2 Ml) 4 mg IVP Q8H PRN PRN Reason: vomiting, or N/V if npo Oxycodone/Acetaminophen (Oxycodone-Apap 5-325 Mg Tablet) 1 tab PO Q4H PRN PRN Reason: Pain Last Admin: 10/17/23 05:44 Dose: 1 tab Pantoprazole Sodium (Pantoprazole Dr 40 Mg Tablet) 40 mg PO Q12H [facility] Last Admin: 10/17/23 05:34 Dose: 40 mg Ropinirole HCl (Ropinirole 2 Mg Tablet) 2 mg PO BEDTIME [facility] Last Admin: 10/16/23 20:50 Dose: 2 mg Sucralfate (Sucralfate 1 Gm Tablet) 1 gm PO Q12H [facility] Last Admin: 10/17/23 05:34 Dose: 1 gm Tamsulosin HCl (Tamsulosin 0.4 Mg Capsule) 0.4 mg PO BEDTIME [facility] Last Admin: 10/16/23 20:50 Dose: 0.4 mg Vitals/I&O/Wt Last Vital Signs Temp 98.2 F 10/17/23 04:00 Pulse 109 H 10/17/23 05:23 Resp 16 10/17/23 05:44 BP 118/70 10/17/23 04:00 Pulse Ox 94 10/17/23 05:44 O2 Del Method Nasal Cannula 10/17/23 05:20 O2 Flow Rate 2 10/17/23 05:20 10/16/23 10/17/23 10/17/23 22:59 06:59 14:59 Intake Total 540 / 1410 Balance 540 / -2240 Weight last 48 hrs Weight 117.9 kg Weight 120.2 kg Physical Exam 2 Narrative: The patient is able to sit up comfortably. Blood pressure is improved. Minimal oxygen requirement. Has leg edema. Vital signs noted. HEENT normocephalic atraumatic. Neck is supple. Lungs dull bases. Heart regular. Abdomen is soft positive bowel sounds extremities bilateral edema neuro awake alert oriented x 3. Dialysis access right anterior chest wall. Data 10/17/23 03:35 10/17/23 03:35 Micro: Microbiology 10/11/23 00:25 Blood Culture - Final Blood NO GROWTH AFTER 5 DAYS 10/11/23 22:55 Blood Culture - Final Blood NO GROWTH AFTER 5 DAYS 10/11/23 18:23 Gram Stain - Final Ankle - Penile Body Fluid Culture - Preliminary Proteus mirabilis Enterococcus faecalis 10/11/23 18:23 Anaerobic Culture - Preliminary Penis 10/11/23 18:23 Catheter Tip Culture - Final Groin Proteus mirabilis 10/11/23 15:33 Urine Culture - Preliminary Urine,Clean Catch Proteus mirabilis Strep species, gamma-hemolytic Coag negative Staphylococcus A&P Assessment and plan (1) ESRD (end stage renal disease): 63-year-old gentleman 1. ESRD status post x-ray hemodialysis for volume overload. Plan for repeat dialysis tomorrow and will likely continue to need extra dialysis for volume removal. 2. Catheter associated UTI. Please renal dose antibiotics monitor vancomycin levels. 3. Anemia. 4. A-fib. 5. Leg edema. The patient was seen and examined with the nurse. This was a telehealth visit using A/V equipment. Plan See above. Attestations 2 Medical Necessity Statement*: Catheter associated UTI and severe edema and volume overload and end-stage renal disease patient. Time Spent in Patient Care: 16 - 35 minutes (>than 50% of time sp ent in counselling and/or direct pt care on unit) . Coding Level of Care Code Acute Code for g Fwd Diagnoses ESRD (end stage renal disease) N18.6
[2023-10-17 10:03] LABS: Ferritin 843 ng/mL (30-400); Iron 35 ug/dL (59-158); Percent Saturation 29.9 % (20-50); Total Iron Binding Capacity 117 mcg/dl; Unsaturated Iron Binding 82 ug/dL (112-347)
[2023-10-17] MEDS: aspirin 81 mg EC Tablet PO (10:11)
[2023-10-17] MEDS: miconazole 2% topical cream 28 gm 1 APPLIC TOPICAL ×2 (10:11→18:33)
[2023-10-17] MEDS: cyanocobalamin 1,000 mcg Tablet 1000 MCG PO (10:11)
[2023-10-17] MEDS: collagenase oint 30 gm 1 APPLIC TOPICAL ×2 (10:12→18:33)
[2023-10-17] MEDS: epoetin alfa 10,000 unit/mL INJ 10000 UNIT SUBCUT (10:16)
[2023-10-17] MEDS: oxyCODONE-APAP 5-325 mg Tablet PO ×2 (10:36→15:58)
--- NOTE | 2023-10-17 14:50 | P.PN_ITS ---
Subjective 2 Subjective: Patient was seen this morning, he tells me that his edema and shortness of breath is improving, he is status post dialysis yesterday Vitals/I&O/Wt Last Vital Signs Temp 98.5 F 10/17/23 08:00 Pulse 112 H 10/17/23 08:00 Resp 22 H 10/17/23 10:36 BP 99/66 10/17/23 08:00 Pulse Ox 90 10/17/23 08:00 O2 Del Method Room Air 10/17/23 08:00 O2 Flow Rate 2 10/17/23 05:20 10/16/23 10/17/23 10/17/23 22:59 06:59 14:59 Intake Total 540 / 1410 360 / 360 Balance 540 / -2240 360 / 360 Weight last 48 hrs Weight 117.9 kg Weight 120.2 kg Physical Exam 2 Const: COMMON NORMALS: no acute distress and patient oriented x3 Resp: COMMON NORMALS: normal respiratory effort, No retractions, No use of accessory muscles and clear to auscultation bilaterally AUSCULTATION: clear to auscultation bilaterally Cardio: COMMON NORMALS: regular rate, regular rhythm, S1 normal heart sound present and S2 normal heart sound present RATE: regular rate RHYTHM: r egular rhythm HEART SOUNDS: S1 normal heart sound present and S2 normal heart sound present GI: COMMON NORMALS: Normal to inspection, nondistended, normoactive bowel sounds present and non-tender Extremity: NARRATIVE EXTREMITY EXAM: 1+ edema Neuro: COMMON NORMALS: patient oriented x3 Psych: COMMON NORMALS: mental status grossly normal Data 10/17/23 03:35 10/17/23 03:35 Micro: Microbiology 10/11/23 18:23 Anaerobic Culture - Preliminary Penis 10/11/23 15:33 Urine Culture - Final Urine,Clean Catch Proteus mirabilis 10/11/23 00:25 Blood Culture - Final Blood NO GROWTH AFTER 5 DAYS 10/11/23 22:55 Blood Culture - Final Blood NO GROWTH AFTER 5 DAYS 10/11/23 18:23 Gram Stain - Final Ankle - Penile Body Fluid Culture - Preliminary Proteus mirabilis Enterococcus faecalis A&P Assessment and plan (1) UTI (urinary tract infection): (2) Penile discharge: (3) Balanoposthitis: (4) Complication of Holly catheter: (5) Holly catheter in place on admission: (6) Sepsis: Plan CAUTI with concern for balanoposthitis ? Holly catheter removed -CT abdomen pelvis with IV contrast no acute findings Currently patient denies any pain, no fevers overnight, continues to have purulent drainage from penile head CRP 83.1, Pro-Zachary 0.57 -Catheter tip culture showing Proteus -Penile culture showing Proteus, Enterococcus faecalis ? Plan ? Continue dressing changes ? Topical mupirocin, as patient continues to have purulent drainage, possible fungal infection? Add miconazole cream De-escalate antibiotics to Augmentin and Zyvox -Hold midodrine blood pressures have improved ? Follow urine cultures ? Follow cultures of purulent drainage from penile head ? Gonorrhea chlamydia cultures ? Catheter tip cultures Sepsis, resolved ? Sepsis features met given evidence of infection, UTI, lactic acid, Pro-Zachary, CRP, soft blood pressures Missed dialysis, end-stage renal disease on dialysis Is fluid overloaded ? Possible plans on dialysis today Sacral DTI's, ? Continue repositioning Atrial fibrillation, not on anticoagulation due to chronic anemia NSTEMI ? No chest pain complaints ? 6-hour troponin 350, delta of 42.2, most recent troponin 329 ? Patient's prior troponins have been as high as 400 -Last cardiac catheterization in December 2022 2. Mild coronary artery disease. Normal LV ejection fraction of 55%. LVEDP of 21 mmHg. The right catheterization revealed mean right atrial pressure of 18. PA pressure was 87/35 with a mean of 56, consistent with a severe pulmonary hypertension. Pulmonary capillary wedge pressure was 28. The RV pressure was 85/4 with a mean of 20. Cardiac output by Mandy's is 6.0 with a cardiac index of 3.0 L/m2. -Continue aspirin, statin, beta-reggie currently on hold due to low blood pressures -Repeat cardiac echo CONCLUSIONS Abnormal (paradoxical) septal motion consistent with postoperative status. Normal LV size with a slightly diminished ejection fraction 50%. Diffuse hypokinesis of right ventricle with slightly diminished ejection fraction. Moderately biatrial enlargement. The bio prosthetic valve in the aortic position appears to be well-seated. Thickened mitral valve. Possible mitral annular ring. At least moderate eccentric mitral regurgitation. The prosthetic valve in the aortic position appears to be well- seated. Peak velocity across the valve is 2.1 m/s Mild tricuspid valve regurgitation. No intracardiac masses There is no pericardial effusion. Estimated pulmonary artery peak systolic pressure 45 mmHg There is no pericardial effusion. There are no intracardiac masses. Compared to the study from 07/15/2023 the ejection fraction estimation could not be compared because of the difference in the technical quality of the studies. History of fluid overload, diastolic CHF exacerbation 2+ pitting edema Continues to have fluid overload, receiving hemodialysis today COPD CHF CAD Full code Heparin for DVT prophylaxis Cardiac diet Patient requires hospitalization for fluid overload, Attestations 2 Medical Necessity Statement*: Patient requires hospitalization for UTI, fluid overload requiring dialysis Diagnoses UTI (urinary tract infection) N39.0 Penile discharge R36.9 Balanoposthitis N47.6 Complication of Holly catheter T83.9XXA Holly catheter in place on admission Z97.8 Sepsis A41.9
[2023-10-17] MEDS: linezolid 600 mg Tablet PO (15:54)
[2023-10-17] MEDS: artificial tears Op Soln 15 mL Btl 1 DROP EYE-BOTH (15:58)
--- NOTE | 2023-10-17 16:59 | P.PN_ITS ---
Subjective 2 Subjective: No complaints Vitals/I&O/Wt Last Vital Signs Temp 98.4 F 10/17/23 12:00 Pulse 106 H 10/17/23 14:00 Resp 20 H 10/17/23 15:58 BP 92/54 10/17/23 12:00 Pulse Ox 96 10/17/23 12:00 O2 Del Method Room Air 10/17/23 12:00 O2 Flow Rate 2 10/17/23 05:20 10/17/23 10/17/23 10/17/23 06:59 14:59 22:59 Intake Total 360 / 360 Balance 360 / 360 Weight last 48 hrs Weight 259 lb 14.8 oz Weight 264 lb 15.93 oz Physical Exam 2 Narrative: Patient is a well developed well nourished and in NAD and is afebrile with vitals stable and is answering questions appropriately with a normal affect and is alert and oriented x3 HEENT: normocephalic with normal external ears and nonicteric, oral mucosa moist and dentition normal for age, trachea midline with no large masses visualized Heart: RRR, no gallops murmurs or rubs, normal PMI with no thrills Lungs: normal excursions, no loud audible wheezing, no subcutaneous emphysema Abdomen: nondistended, no gross hepatosplenomegaly, no masses, no rigidity or rebound, no loud borborygmi Neuro: nonfocal, FERNANDEZ, grossly normal sensation Musculoskeletal: good muscle tone, no fasciculations Skin: pink warm and dry with no rashes or ecchymosis, edema and reddened lower distal legs Vascular: good radial pulses, no ulceration, less than 2 second capillary refill in hand : 1 cm wide and 3-4 cm long wound along glans penis groove and on dorsum of penis Data 10/17/23 03:35 10/17/23 03:35 Micro: Microbiology 10/11/23 18:23 Anaerobic Culture - Preliminary Penis 10/11/23 18:23 Catheter Tip Culture - Final Groin Proteus mirabilis 10/11/23 18:23 Gram Stain - Final Ankle - Penile Body Fluid Culture - Final Proteus mirabilis Enterococcus faecalis Staphylococcus warneri 10/11/23 15:33 Urine Culture - Final Urine,Clean Catch Proteus mirabilis 10/11/23 00:25 Blood Culture - Final Blood NO GROWTH AFTER 5 DAYS 10/11/23 22:55 Blood Culture - Final Blood NO GROWTH AFTER 5 DAYS A&P Assessment and plan (1) Open wound of penis: Plan Continue dressing changes with santyl and fungal cream Attestations 2 Medical Necessity Statement*: see attending's note Coding Level of Care Code 55010 Diagnoses Open wound of penis S31.20XA
[2023-10-17] MEDS: amoxicillin-clav 500-125 mg Tablet 1 TAB PO (18:32)
[2023-10-17] MEDS: tamsulosin 0.4 mg Capsule PO (20:18)
[2023-10-17] MEDS: atorvastatin 40 mg Tablet PO (20:18)
[2023-10-17] MEDS: ropinirole 2 mg Tablet PO (20:19)
[2023-10-17] MEDS: amiodarone 200 mg Tablet PO (20:19)
[2023-10-18] VITALS (16 sets, daily range): BP systolic 99–120; BP diastolic 62–86; PULSE 99–110; RESP 15–22; TEMP 36.2–37; O2SAT 93–100
[2023-10-18] MEDS: heparin 5,000 unit/mL INJ 1 mL 5000 UNIT SUBCUT ×2 (03:00→16:08)
[2023-10-18] MEDS: oxyCODONE-APAP 5-325 mg Tablet PO ×4 (03:03→21:20)
[2023-10-18] MEDS: ipratropium-albuterol 3 mL Neb INHALATION (03:16)
[2023-10-18] MEDS: linezolid 600 mg Tablet PO ×2 (03:48→16:08)
[2023-10-18] MEDS: escitalopram 10 mg Tablet PO (05:19)
[2023-10-18] MEDS: sucralfate 1 gm Tablet PO ×2 (05:20→17:28)
[2023-10-18] MEDS: pantoprazole DR 40 mg Tablet PO ×2 (05:20→17:28)
[2023-10-18 06:00] LABS: Basophils # 0.1 10^3/uL (0.0-0.1); Basophils % 1.2 %; Eosinophils # 0.1 10^3/uL (0.0-0.8); Lymphocytes % 16.8 %; Mean Corpuscular HGB Conc 30.3 g/dL (30-55); Mean Corpuscular Hemoglobin 31.4 pg (27-33); Mean Corpuscular Volume 103.7 fl (82-101); Mean Platelet Volume 11.1 fL (7.4-10.4); Monocytes # 0.6 10^3/uL (0.2-0.9); Monocytes % 9.8 %; Neutrophils % 69.7 %; Nucleated Red Blood Cells % 0 %; Platelet Count 118 10^3/cmm (157-399); Red Blood Count 2.99 10^6/uL (3.85-5.65); Red Cell Distribution Width 19.9 % (12.1-15.1); White Blood Count 6.02 10^3/uL (3.29-11.43)
[2023-10-18 06:27] LABS: Alanine Aminotransferase 8 U/L (0-41); Albumin Level 4.1 g/dL (3.5-5.2); Alkaline Phosphatase 302 U/L (40-130); Anion Gap 18.9 (5-19); Aspartate Amino Transferase 27 U/L (0-40); Blood Urea Nitrogen 25 mg/dL (8-23); Calcium 9.4 mg/dL (8.5-10.5); Carbon Dioxide 25 mmol/L (22-29); Chloride 92 mmol/L (98-107); Creatinine Clr Calc Pharmacy 22.8308; Globulin 2.2 g/dL (1.3-4.6); Glomerular Filtration Rate 13.7 mL/min (90-130); Glucose 103 mg/dL (65-115); Magnesium 2.1 mg/dL (1.7-2.3); Osmolality Calculated 277 mOsm/kg (285-295); Phosphorus 2.7 mg/dL (2.5-4.5); Potassium 4.9 mmol/L (3.5-5.1); Sodium 131 mmol/L (136-145); Total Bilirubin 1.8 mg/dL (0.15-1.2); Total Protein 6.3 g/dL (6.6-8.7)
--- NOTE | 2023-10-18 07:51 | PM.PN ---
Subjective Subjective: Patient was seen and examined. The patient is sitting up. Patient has decreased shortness of breath and edema. Still with penile edema. The patient still complains of orthopnea and dyspnea on exertion. No nausea or vomiting. The patient is awaiting dialysis today. He believes that dialysis helped some Medications: Reviewed: Yes Medication Review Details: Current Medications Acetaminophen (Acetaminophen 325 Mg Tablet) 650 mg PO Q6H PRN PRN Reason: Mild/Mod Pain Or Temp >/= 101 Last Admin: 10/16/23 22:51 Dose: 650 mg Albuterol/Ipratropium (Ipratropium-Albuterol 3 Ml Neb) 3 ml INHALATION Q6H PRN PRN Reason: SHORTNESS OF BREATH Last Admin: 10/18/23 03:16 Dose: 3 ml Amiodarone HCl (Amiodarone 200 Mg Tablet) 200 mg PO BEDTIME [facility] Last Admin: 10/17/23 20:19 Dose: 200 mg Amoxicillin/Clavulanate Potassium (Amoxicillin-Clav 500-125 Mg Tablet) 1 tab PO BID [facility]; Protocol Last Admin: 10/17/23 18:32 Dose: 1 tab Artificial Tears (Artificial Tears Op Soln 15 Ml Btl) 1 drop EYE-BOTH Q4H PRN PRN Reason: DRY EYE(S) Last Admin: 10/17/23 15:58 Dose: 1 drop Aspirin (Aspirin 81 Mg Ec Tablet) 81 mg PO DAILY [facility] Last Admin: 10/17/23 10:11 Dose: 81 mg Atorvastatin Calcium (Atorvastatin 40 Mg Tablet) 40 mg PO BEDTIME [facility] Last Admin: 10/17/23 20:18 Dose: 40 mg Bisacodyl (Bisacodyl 5 Mg Tablet) 10 mg PO DAILY PRN PRN Reason: Constipation Collagenase (Collagenase Oint 30 Gm) 1 applic TOPICAL BID [facility] Last Admin: 10/17/23 18:33 Dose: 1 applic Cyanocobalamin (Cyanocobalamin 1,000 Mcg Tablet) 1,000 mcg PO DAILY [facility] Last Admin: 10/17/23 10:11 Dose: 1,000 mcg Escitalopram Oxalate (Escitalopram 10 Mg Tablet) 10 mg PO QAM [facility] Last Admin: 10/18/23 05:19 Dose: 10 mg Heparin Sodium (Porcine) (Heparin 5,000 Unit/Ml Inj 1 Ml) 5,000 unit SUBCUT Q12H [facility] Last Admin: 10/18/23 03:00 Dose: 5,000 unit Sodium Chloride (Sodium Chloride 0.9%) 1,000 mls @ 0 mls/hr IV .Q0M PRN PRN Reason: hypotension or symptomatic Albumin Human (Albumin) 12.5 gm in 50 mls @ 60 mls/hr IV PRN PRN PRN Reason: Hypotension and/or symptomatic Linezolid (Linezolid 600 Mg Tablet) 600 mg PO Q12H [facility]; Protocol Last Admin: 10/18/23 03:48 Dose: 600 mg Miconazole Nitrate (Miconazole 2% Topical Cream 28 Gm) 1 applic TOPICAL BID [facility] Last Admin: 10/17/23 18:33 Dose: 1 applic Ondansetron HCl (Ondansetron 2 Mg/Ml Sdv 2 Ml) 4 mg IVP Q8H PRN PRN Reason: vomiting, or N/V if npo Oxycodone/Acetaminophen (Oxycodone-Apap 5-325 Mg Tablet) 1 - 2 tab PO Q4H PRN PRN Reason: Pain Last Admin: 10/18/23 03:03 Dose: 2 tab Pantoprazole Sodium (Pantoprazole Dr 40 Mg Tablet) 40 mg PO Q12H [facility] Last Admin: 10/18/23 05:20 Dose: 40 mg Ropinirole HCl (Ropinirole 2 Mg Tablet) 2 mg PO BEDTIME [facility] Last Admin: 10/17/23 20:19 Dose: 2 mg Sucralfate (Sucralfate 1 Gm Tablet) 1 gm PO Q12H [facility] Last Admin: 10/18/23 05:20 Dose: 1 gm Tamsulosin HCl (Tamsulosin 0.4 Mg Capsule) 0.4 mg PO BEDTIME [facility] Last Admin: 10/17/23 20:18 Dose: 0.4 mg Vitals/I&O/Wt Last Vital Signs Temp 97.5 F L 10/18/23 07:13 Pulse 104 H 10/18/23 07:41 Resp 18 10/18/23 07:41 BP 120/73 10/18/23 07:13 Pulse Ox 95 10/18/23 07:41 O2 Del Method Nasal Cannula 10/18/23 07:41 O2 Flow Rate 2 10/18/23 07:41 10/17/23 10/18/23 10/18/23 22:59 06:59 14:59 Intake Total 120 / 480 Balance 120 / 480 Weight last 48 hrs Weight 119.386 kg Weight 90.265 kg Weight 117.9 kg Physical Exam Narrative: The patient is able to sit up comfortably. Vital signs stable. Minimal oxygen requirement. Has leg edema. Vital signs noted. HEENT normocephalic atraumatic. Neck is supple. Lungs dull bases. Heart regular. Abdomen is soft positive bowel sounds extremities bilateral edema neuro awake alert oriented x 3. Dialysis access right anterior chest wall. Neuro awake alert oriented x 3. The patient was seen and examined using audiovisual equipment with the nurse who examined the patient. Data 10/18/23 05:15 10/18/23 05:15 Micro: Microbiology 10/11/23 18:23 Anaerobic Culture - Preliminary Penis 10/11/23 18:23 Catheter Tip Culture - Final Groin Proteus mirabilis 10/11/23 18:23 Gram Stain - Final Ankle - Penile Body Fluid Culture - Final Proteus mirabilis Enterococcus faecalis Staphylococcus warneri 10/11/23 15:33 Urine Culture - Final Urine,Clean Catch Proteus mirabilis A&P Assessment and plan (1) ESRD (end stage renal disease): 63-year-old gentleman 1. ESRD status post x-ray hemodialysis on Wednesday. The patient will have his regular dialysis today. Monitor potassium and volume status Normal phosphorus 2. Catheter associated UTI. Please renal dose antibiotics monitor vancomycin levels. 3. Anemia. Ferritin in the 800s TSAT around 29%. Use Neupogen. 4. A-fib. 5. Leg edema. monitor with dialysis. 6. Normal TSH. 7. Monitor blood pressure The patient was seen and examined with the nurse. This was a telehealth visit using A/V equipment. Plan See above. Attestations Medical Necessity Statement*: Per medicine. Volume overload being treated with dialysis Time Spent in Patient Care: 16 - 35 minutes (>than 50% of time spent in counselling and/or direct pt care on unit). Coding Level of Care Code Acute Code for g Fwd Diagnoses ESRD (end stage renal disease) N18.6
[2023-10-18] MEDS: amoxicillin-clav 500-125 mg Tablet 1 TAB PO ×2 (09:15→17:28)
[2023-10-18] MEDS: midodrine 5 mg TABLET PO ×3 (09:16→21:19)
[2023-10-18] MEDS: cyanocobalamin 1,000 mcg Tablet 1000 MCG PO (09:16)
[2023-10-18] MEDS: aspirin 81 mg EC Tablet PO (09:16)
[2023-10-18] MEDS: miconazole 2% topical cream 28 gm 1 APPLIC TOPICAL ×2 (09:17→17:28)
[2023-10-18] MEDS: collagenase oint 30 gm 1 APPLIC TOPICAL ×2 (09:17→17:28)
[2023-10-18] MEDS: artificial tears Op Soln 15 mL Btl 1 DROP EYE-BOTH (09:18)
--- NOTE | 2023-10-18 09:50 | PC.SOCIAL ---
IMM Updated Updated pt on IMM. No questions voiced. Provided pt a copy. Initialed, dated, & timed copy in chart.
[2023-10-18] MEDS: albumin 12.5 GM/50 ML VIAL IV ×2 (11:30→12:30)
[2023-10-18] MEDS: heparin, porcine 1,000 unit/mL INJ 10 mL 10000 UNIT INTRACATH (11:39)
--- NOTE | 2023-10-18 13:39 | PC.OT ---
OT tx attempted at this time. Pt currently in dialysis. Will attempt again at later time if possible.
--- NOTE | 2023-10-18 16:41 | P.PN_ITS ---
Subjective 2 Subjective: Patient was seen this morning, he is up to a chair, denies any fevers, chills, no cough, is on room air, does have lower extremity edema Vitals/I&O/Wt Last Vital Signs Temp 97.6 F 10/18/23 16:33 Pulse 105 H 10/18/23 16:33 Resp 19 H 10/18/23 16:33 BP 99/62 10/18/23 16:33 Pulse Ox 96 10/18/23 16:33 O2 Del Method Nasal Cannula 10/18/23 16:33 O2 Flow Rate 2 10/18/23 07:41 10/18/23 10/18/23 10/18/23 06:59 14:59 22:59 Intake Total 460 / 460 Balance 460 / 460 Weight last 48 hrs Weight 119.386 kg Weight 90.265 kg Physical Exam 2 Const: COMMON NORMALS: no acute distress and patient oriented x3 Resp: COMMON NORMALS: normal respiratory effort, No retractions, No use of accessory muscles and clear to auscultation bilaterally AUSCULTATION: clear to auscultation bilaterally Cardio: COMMON NORMALS: regular rate, regular rhythm, S1 normal heart sound present and S2 normal heart sound present RATE: regular rate RHYTHM: r egular rhythm HEART SOUNDS: S1 normal heart sound present and S2 normal heart sound present GI: COMMON NORMALS: Normal to inspection, nondistended, normoactive bowel sounds present, Soft to palpation and non-tender PALPATION: Yes Soft to palpation Extremity: NARRATIVE EXTREMITY EXAM: 1+ edema improving Neuro: COMMON NORMALS: patient oriented x3 Psych: COMMON NORMALS: mental status grossly normal Data 10/18/23 05:15 10/18/23 05:15 Micro: Microbiology 10/11/23 18:23 Anaerobic Culture - Preliminary Penis 10/11/23 18:23 Catheter Tip Culture - Final Groin Proteus mirabilis 10/11/23 18:23 Gram Stain - Final Ankle - Penile Body Fluid Culture - Final Proteus mirabilis Enterococcus faecalis Staphylococcus warneri A&P Assessment and plan (1) UTI (urinary tract infection): (2) Penile discharge: (3) Balanoposthitis: (4) Complication of Holly catheter: (5) Holyl catheter in place on admission: (6) Sepsis: Plan CAUTI with concern for balanoposthitis ? Holly catheter removed -CT abdomen pelvis with IV contrast no acute findings Currently patient denies any pain, no fevers overnight, continues to have purulent drainage from penile head CRP 83.1, Pro-Zachary 0.57 -Catheter tip culture showing Proteus -Penile culture showing Proteus, Enterococcus faecalis ? Plan ? Continue dressing changes ? Topical mupirocin, as patient continues to have purulent drainage, possible fungal infection? Add miconazole cream De-escalate antibiotics to Augmentin and Zyvox -Hold midodrine blood pressures have improved ? Follow urine cultures ? Follow cultures of purulent drainage from penile head ? Gonorrhea chlamydia cultures ? Catheter tip cultures Sepsis, resolved ? Sepsis features met given evidence of infection, UTI, lactic acid, Pro-Zachary, CRP, soft blood pressures Missed dialysis, end-stage renal disease on dialysis Is fluid overloaded ? Possible plans on dialysis today Sacral DTI's, ? Continue repositioning Atrial fibrillation, not on anticoagulation due to chronic anemia NSTEMI ? No chest pain complaints ? 6-hour troponin 350, delta of 42.2, most recent troponin 329 ? Patient's prior troponins have been as high as 400 -Last cardiac catheterization in December 2022 2. Mild coronary artery disease. Normal LV ejection fraction of 55%. LVEDP of 21 mmHg. The right catheterization revealed mean right atrial pressure of 18. PA pressure was 87/35 with a mean of 56, consistent with a severe pulmonary hypertension. Pulmonary capillary wedge pressure was 28. The RV pressure was 85/4 with a mean of 20. Cardiac output by Mandy's is 6.0 with a cardiac index of 3.0 L/m2. -Continue aspirin, statin, beta-reggie currently on hold due to low blood pressures -Repeat cardiac echo CONCLUSIONS Abnormal (paradoxical) septal motion consistent with postoperative status. Normal LV size with a slightly diminished ejection fraction 50%. Diffuse hypokinesis of right ventricle with slightly diminished ejection fraction. Moderately biatrial enlargement. The bio prosthetic valve in the aortic position appears to be well-seated. Thickened mitral valve. Possible mitral annular ring. At least moderate eccentric mitral regurgitation. The prosthetic valve in the aortic position appears to be well- seated. Peak velocity across the valve is 2.1 m/s Mild tricuspid valve regurgitation. No intracardiac masses There is no pericardial effusion. Estimated pulmonary artery peak systolic pressure 45 mmHg There is no pericardial effusion. There are no intracardiac masses. Compared to the study from 07/15/2023 the ejection fraction estimation could not be compared because of the difference in the technical quality of the studies. History of fluid overload, diastolic CHF exacerbation 2+ pitting edema Continues to have fluid overload, receiving hemodialysis today COPD CHF CAD Full code Heparin for DVT prophylaxis Cardiac diet Patient requires hospitalization for fluid overload, Attestations 2 Medical Necessity Statement*: Patient requires hospitalization for fluid overload, requiring dialysis Diagnoses UTI (urinary tract infection) N39.0 Penile discharge R36.9 Balanoposthitis N47.6 Complication of Holly catheter T83.9XXA Holly catheter in place on admission Z97.8 Sepsis A41.9
[2023-10-18] MEDS: ropinirole 2 mg Tablet PO (21:19)
[2023-10-18] MEDS: amiodarone 200 mg Tablet PO (21:19)
[2023-10-18] MEDS: tamsulosin 0.4 mg Capsule PO (21:20)
[2023-10-18] MEDS: atorvastatin 40 mg Tablet PO (21:20)
[2023-10-19] VITALS (14 sets, daily range): BP systolic 91–105; BP diastolic 58–70; PULSE 99–108; RESP 16–18; TEMP 36.4–36.7; O2SAT 91–100
[2023-10-19] MEDS: linezolid 600 mg Tablet PO ×2 (03:51→17:24)
[2023-10-19] MEDS: heparin 5,000 unit/mL INJ 1 mL 5000 UNIT SUBCUT ×2 (03:51→17:25)
[2023-10-19] MEDS: pantoprazole DR 40 mg Tablet PO ×2 (05:45→17:24)
[2023-10-19] MEDS: escitalopram 10 mg Tablet PO (05:45)
[2023-10-19] MEDS: sucralfate 1 gm Tablet PO (05:45)
[2023-10-19 06:23] LABS: Basophils # 0.1 10^3/uL (0.0-0.1); Basophils % 1.3 %; Eosinophils # 0.1 10^3/uL (0.0-0.8); Eosinophils % 1.8 %; Hematocrit 29.9 % (37-53); Lymphocytes # 0.8 10^3/uL (0.8-4.8); Lymphocytes % 13.6 %; Mean Corpuscular HGB Conc 30.1 g/dL (30-55); Mean Corpuscular Hemoglobin 31.3 pg (27-33); Mean Corpuscular Volume 103.8 fl (82-101); Mean Platelet Volume 11.1 fL (7.4-10.4); Monocytes # 0.5 10^3/uL (0.2-0.9); Monocytes % 7.5 %; Neutrophils # 4.61 10^3/uL (1.8-7.7); Neutrophils % 75.5 %; Nucleated Red Blood Cells % 0 %; Platelet Count 112 10^3/cmm (157-399); Red Blood Count 2.88 10^6/uL (3.85-5.65); Red Cell Distribution Width 19.7 % (12.1-15.1); White Blood Count 6.11 10^3/uL (3.29-11.43)
[2023-10-19 06:34] LABS: Alanine Aminotransferase < 5 U/L (0-41); Alkaline Phosphatase 311 U/L (40-130); Aspartate Amino Transferase 25 U/L (0-40); Blood Urea Nitrogen 19 mg/dL (8-23); Calcium 9.2 mg/dL (8.5-10.5); Carbon Dioxide 26 mmol/L (22-29); Chloride 97 mmol/L (98-107); Creatinine Clr Calc Pharmacy 27.9914; Globulin 2.6 g/dL (1.3-4.6); Glomerular Filtration Rate 17.3 mL/min (90-130); Glucose 101 mg/dL (65-115); Magnesium 2.1 mg/dL (1.7-2.3); Osmolality Calculated 282 mOsm/kg (285-295); Phosphorus 2.3 mg/dL (2.5-4.5); Sodium 135 mmol/L (136-145); Total Bilirubin 1.9 mg/dL (0.15-1.2); Total Protein 6.6 g/dL (6.6-8.7)
--- NOTE | 2023-10-19 08:20 | PM.PN ---
Subjective Subjective: The patient feels better status post dialysis yesterday. He is asking when he can go home. The patient states to me that he has not been able to lie flat for years as he has significant back pain he also has dyspnea on exertion which has been improving with dialysis. Medications: Reviewed: Yes Medication Review Details: Current Medications Acetaminophen (Acetaminophen 325 Mg Tablet) 650 mg PO Q6H PRN PRN Reason: Mild/Mod Pain Or Temp >/= 101 Last Admin: 10/16/23 22:51 Dose: 650 mg Albuterol/Ipratropium (Ipratropium-Albuterol 3 Ml Neb) 3 ml INHALATION Q6H PRN PRN Reason: SHORTNESS OF BREATH Last Admin: 10/18/23 03:16 Dose: 3 ml Amiodarone HCl (Amiodarone 200 Mg Tablet) 200 mg PO BEDTIME [facility] Last Admin: 10/18/23 21:19 Dose: 200 mg Amoxicillin/Clavulanate Potassium (Amoxicillin-Clav 500-125 Mg Tablet) 1 tab PO BID [facility]; Protocol Last Admin: 10/18/23 17:28 Dose: 1 tab Artificial Tears (Artificial Tears Op Soln 15 Ml Btl) 1 drop EYE-BOTH Q4H PRN PRN Reason: DRY EYE(S) Last Admin: 10/18/23 09:18 Dose: 1 drop Aspirin (Aspirin 81 Mg Ec Tablet) 81 mg PO DAILY [facility] Last Admin: 10/18/23 09:16 Dose: 81 mg Atorvastatin Calcium (Atorvastatin 40 Mg Tablet) 40 mg PO BEDTIME [facility] Last Admin: 10/18/23 21:20 Dose: 40 mg Bisacodyl (Bisacodyl 5 Mg Tablet) 10 mg PO DAILY PRN PRN Reason: Constipation Collagenase (Collagenase Oint 30 Gm) 1 applic TOPICAL BID [facility] Last Admin: 10/18/23 17:28 Dose: 1 applic Cyanocobalamin (Cyanocobalamin 1,000 Mcg Tablet) 1,000 mcg PO DAILY [facility] Last Admin: 10/18/23 09:16 Dose: 1,000 mcg Escitalopram Oxalate (Escitalopram 10 Mg Tablet) 10 mg PO QAM [facility] Last Admin: 10/19/23 05:45 Dose: 10 mg Heparin Sodium (Porcine) (Heparin 5,000 Unit/Ml Inj 1 Ml) 5,000 unit SUBCUT Q12H [facility] Last Admin: 10/19/23 03:51 Dose: 5,000 unit Sodium Chloride (Sodium Chloride 0.9%) 1,000 mls @ 0 mls/hr IV .Q0M PRN PRN Reason: hypotension or symptomatic Albumin Human (Albumin) 12.5 gm in 50 mls @ 60 mls/hr IV PRN PRN PRN Reason: Hypotension and/or symptomatic Last Infusion: 10/18/23 13:23 Dose: Infused Linezolid (Linezolid 600 Mg Tablet) 600 mg PO Q12H [facility]; Protocol Last Admin: 10/19/23 03:51 Dose: 600 mg Miconazole Nitrate (Miconazole 2% Topical Cream 28 Gm) 1 applic TOPICAL BID [facility] Last Admin: 10/18/23 17:28 Dose: 1 applic Midodrine (Midodrine 5 Mg Tablet) 5 mg PO TID [facility] Last Admin: 10/18/23 21:19 Dose: 5 mg Ondansetron HCl (Ondansetron 2 Mg/Ml Sdv 2 Ml) 4 mg IVP Q8H PRN PRN Reason: vomiting, or N/V if npo Oxycodone/Acetaminophen (Oxycodone-Apap 5-325 Mg Tablet) 1 - 2 tab PO Q4H PRN PRN Reason: Pain Last Admin: 10/18/23 21:20 Dose: 1 tab Pantoprazole Sodium (Pantoprazole Dr 40 Mg Tablet) 40 mg PO Q12H [facility] Last Admin: 10/19/23 05:45 Dose: 40 mg Ropinirole HCl (Ropinirole 2 Mg Tablet) 2 mg PO BEDTIME [facility] Last Admin: 10/18/23 21:19 Dose: 2 mg Sucralfate (Sucralfate 1 Gm Tablet) 1 gm PO Q12H [facility] Last Admin: 10/19/23 05:45 Dose: 1 gm Tamsulosin HCl (Tamsulosin 0.4 Mg Capsule) 0.4 mg PO BEDTIME [facility] Last Admin: 10/18/23 21:20 Dose: 0.4 mg Vitals/I&O/Wt Last Vital Signs Temp 97.9 F 10/19/23 07:14 Pulse 108 H 10/19/23 07:48 Resp 16 10/19/23 07:48 BP 99/58 10/19/23 07:14 Pulse Ox 96 10/19/23 07:48 O2 Del Method Nasal Cannula 10/19/23 07:48 O2 Flow Rate 2 10/19/23 07:48 10/18/23 10/19/23 10/19/23 22:59 06:59 14:59 Intake Total 650 / 1110 0 / 1110 Output Total 3000 / 3000 / 3025 Balance -2350 / -1890 -25 / -1915 Weight last 48 hrs Weight 120.1 kg Weight 119.386 kg Physical Exam Narrative: The patient is able to sit up comfortably. Vital signs stable. improving leg edema. Vital signs noted. HEENT normocephalic atraumatic. Neck is supple. Lungs dull bases. Heart regular. Abdomen is soft positive bowel sounds extremities bilateral edema improved. neuro awake alert oriented x 3. Dialysis access right anterior chest wall. Neuro awake alert oriented x 3. The patient was seen and examined using audiovisual equipment with the nurse who examined the patient. Data 10/19/23 05:58 10/19/23 05:58 Micro: Microbiology 10/11/23 18:23 Anaerobic Culture - Preliminary Penis Anaerobic gram negative rods A&P Assessment and plan (1) ESRD (end stage renal disease): 63-year-old gentleman 1. ESRD status post extra hemodialysis on Wednesday. Continue hemodialysis Wednesday and Wednesday may need an extra treatment on the weekends. 2. Catheter associated UTI. Please renal dose antibiotics-. Patient on Augmentin and linezolid. 3. Anemia. Ferritin in the 800s TSAT around 29%. Use epogen. 4. A-fib. 5. Leg edema. improved with dialysis. 6. Normal TSH. 7. Monitor blood pressure The patient was seen and examined with the nurse. This was a telehealth visit using A/V equipment. Plan See above. Attestations Medical Necessity Statement*: per hospitalist Time Spent in Patient Care: 16 - 35 minutes (>than 50% of time spent in counselling and/or direct pt care on unit). Coding Level of Care Code Acute Code for Chg Fwd Diagnoses ESRD (end stage renal disease) N18.6
[2023-10-19] MEDS: aspirin 81 mg EC Tablet PO (08:23)
[2023-10-19] MEDS: amoxicillin-clav 500-125 mg Tablet 1 TAB PO ×2 (08:23→17:24)
[2023-10-19] MEDS: cyanocobalamin 1,000 mcg Tablet 1000 MCG PO (08:23)
[2023-10-19] MEDS: midodrine 5 mg TABLET PO ×2 (08:23→17:24)
[2023-10-19] MEDS: miconazole 2% topical cream 28 gm 1 APPLIC TOPICAL ×2 (08:24→17:25)
[2023-10-19] MEDS: oxyCODONE-APAP 5-325 mg Tablet PO ×4 (08:24→21:38)
[2023-10-19] MEDS: collagenase oint 30 gm 1 APPLIC TOPICAL ×2 (08:24→17:24)
--- NOTE | 2023-10-19 13:02 | CT_ITS ---
WS: [id number] CT LUMBAR SPINE, noncontrast. HISTORY: lower back pain TECHNIQUE: Contiguous 2.0 mm axial imaging are performed. Sagittal and coronal reformats are submitte d and reviewed. All CT scans at [facility] use at least one of these dose optimization techni ques: automated exposure control; mA and/or kV adjustment per patient size (includes targeted exams w here dose is matched to clinical indication); or iterative reconstruction. IV contrast: None DLP: 1174.34 mGy.cm COMPARISON: 10/11/2019 Posterior lumbar alignment is normal. Disc spaces are mildly narrowed. Vacuum disc phenomenon at L3-4 , L4-5 and L5-S1. No fractures. Mild curvature. L1-2: Mild annular disc bulging. L2-3: Mild diffuse annular disc bulging. Shallow RIGHT foraminal disc protrusion. L3-4: Mild annular disc bulging with osteophytic ridging. There is mild encroachment upon the subarti cular recesses. Mild central and bilateral subarticular recess stenosis. L4-5: Osteophytic ridging with facet and ligamentum flavum hypertrophy. Moderate central, bilateral s ubarticular recess and foraminal stenosis. Shallow RIGHT foraminal disc protrusion. Stenosis has prog ressed since the prior study. L5-S1: Diffuse annular disc bulge and osteophytic ridging. Osteophyte encroachment upon the ventral t hecal sac. Mild central with moderate bilateral subarticular recess stenosis and mild foraminal steno sis. Heavy calcification noted throughout the abdominal aorta. Vascular calcifications associated with pamela ge kidney. CT/CT lumbar spine wo con* [id number] IMPRESSION: 1. Mild progression of degenerative disc disease and stenosis at L3-4 and L4-5 since the prior study. 2. L4-5: Moderate central, bilateral subarticular recess and foraminal stenosi s. 3. Mild central with moderate bilateral subarticular recess and mild foraminal stenosis at L5-S1. 4. No fractures. 5. Shallow RIGHT foraminal disc protrusion at L2-3.
[2023-10-19 15:11] LABS: Erythrocyte Sedimentation Rate 6 mm/hr (0-10)
[2023-10-19 15:28] LABS: C Reactive Protein 55.6 mg/L (0.0-4.9); Lactate (Lactic Acid level) 1.9 mmol/L (0.5-2.2)
[2023-10-19 15:34] LABS: Procalcitonin 0.39 ng/mL (0-0.5)
--- NOTE | 2023-10-19 17:05 | P.PN_ITS ---
Subjective 2 Subjective: Patient was seen this morning, he complains of low back pain, weakness and fatigue, no nausea, vomiting, no fevers, no chills Vitals/I&O/Wt Last Vital Signs Temp 97.7 F 10/19/23 16:00 Pulse 100 10/19/23 16:00 Resp 18 10/19/23 16:00 BP 91/61 10/19/23 16:00 Pulse Ox 99 10/19/23 16:00 O2 Del Method Nasal Cannula 10/19/23 16:00 O2 Flow Rate 2 10/19/23 07:48 10/19/23 10/19/23 10/19/23 06:59 14:59 22:59 Intake Total 0 / 1110 720 / 720 Output Total 5 Balance -25 / 720 / 720 Weight last 48 hrs Weight 120.1 kg Weight 119.386 kg Physical Exam 2 Const: COMMON NORMALS: no acute distress and patient oriented x3 Resp: COMMON NORMALS: normal respiratory effort, No retractions, No use of accessory muscles and clear to auscultation bilaterally AUSCULTATION: clear to auscultation bilaterally Cardio: COMMON NORMALS: regular rate, regular rhythm, S1 normal heart sound present and S2 normal heart sound present RATE: regular rate RHYTHM: r egular rhythm HEART SOUNDS: S1 normal heart sound present and S2 normal heart sound present GI: COMMON NORMALS: Normal to inspection, nondistended, normoactive bowel sounds present and non-tender Neuro: COMMON NORMALS: patient oriented x3 Psych: COMMON NORMALS: mental status grossly normal Skin: NARRATIVE SKIN EXAM: 2+ pitting edema bilateral lower extremi ties, extending to the level of bilateral thighs, right lower extremity has a fluid-filled blister, measuring 1 x 1 cm Data 10/19/23 05:58 10/19/23 05:58 Micro: Microbiology 10/11/23 18:23 Anaerobic Culture - Preliminary Penis Anaerobic gram negative rods A&P Assessment and plan (1) UTI (urinary tract infection): (2) Penile discharge: (3) Balanoposthitis: (4) Complication of Holly catheter: (5) Holly catheter in place on admission: (6) Sepsis: Plan CAUTI with concern for balanoposthitis ? Holly catheter removed -CT abdomen pelvis with IV contrast no acute findings Currently patient denies any pain, no fevers overnight, continues to have purulent drainage from penile head CRP 83.1, Pro-Zachary 0.57 -Catheter tip culture showing Proteus -Penile culture showing Proteus, Enterococcus faecalis ? Plan ? Continue dressing changes ? Topical mupirocin, as patient continues to have purulent drainage, possible fungal infection? Add miconazole cream De-escalate antibiotics to Augmentin and Zyvox ? Gonorrhea chlamydia cultures negative Sepsis, resolved ? Sepsis features met given evidence of infection, UTI, lactic acid, Pro-Zachary, CRP, soft blood pressures Missed dialysis, end-stage renal disease on dialysis Is fluid overloaded -Continues to have 2+ pitting edema bilateral extremities, fluid-filled blister right lower extremity dialysis today Sacral DTI's, ? Continue repositioning Atrial fibrillation, not on anticoagulation due to chronic anemia NSTEMI ? No chest pain complaints ? 6-hour troponin 350, delta of 42.2, most recent troponin 329 ? Patient's prior troponins have been as high as 400 -Last cardiac catheterization in December 2022 2. Mild coronary artery disease. Normal LV ejection fraction of 55%. LVEDP of 21 mmHg. The right catheterization revealed mean right atrial pressure of 18. PA pressure was 87/35 with a mean of 56, consistent with a severe pulmonary hypertension. Pulmonary capillary wedge pressure was 28. The RV pressure was 85/4 with a mean of 20. Cardiac output by Mandy's is 6.0 with a cardiac index of 3.0 L/m2. -Continue aspirin, statin, beta-reggie currently on hold due to low blood pressures -Repeat cardiac echo CONCLUSIONS Abnormal (paradoxical) septal motion consistent with postoperative status. Normal LV size with a slightly diminished ejection fraction 50%. Diffuse hypokinesis of right ventricle with slightly diminished ejection fraction. Moderately biatrial enlargement. The bio prosthetic valve in the aortic position appears to be well-seated. Thickened mitral valve. Possible mitral annular ring. At least moderate eccentric mitral regurgitation. The prosthetic valve in the aortic position appears to be well- seated. Peak velocity across the valve is 2.1 m/s Mild tricuspid valve regurgitation. No intracardiac masses There is no pericardial effusion. Estimated pulmonary artery peak systolic pressure 45 mmHg There is no pericardial effusion. There are no intracardiac masses. Compared to the study from 07/15/2023 the ejection fraction estimation could not be compared because of the difference in the technical quality of the studies. History of fluid overload, diastolic CHF exacerbation 2+ pitting edema Continues to have fluid overload, receiving hemodialysis today COPD CHF CAD Full code Heparin for DVT prophylaxis Cardiac diet Plan for today continues to have evidence of fluid overload, dialysis today, increase midodrine to 10 3 times daily due to soft blood pressures, will monitor, soft blood pressures, will monitor lactic acid, monitor inflammatory markers, complaints of severe low back pain, will do CT lower lumbar spine to evaluate for possible discitis vertebral osteomyelitis Attestations 2 Medical Necessity Statement*: Patient requires hospitalization for fluid overload, requiring dialysis, Diagnoses UTI (urinary tract infection) N39.0 Penile discharge R36.9 Balanoposthitis N47.6 Complication of Holly catheter T83.9XXA Holly catheter in place on admission Z97.8 Sepsis A41.9
[2023-10-19] MEDS: midodrine 5 mg TABLET 10 MG PO (21:38)
[2023-10-19] MEDS: tamsulosin 0.4 mg Capsule PO (21:38)
[2023-10-19] MEDS: atorvastatin 40 mg Tablet PO (21:38)
[2023-10-19] MEDS: amiodarone 200 mg Tablet PO (21:39)
[2023-10-19] MEDS: ropinirole 2 mg Tablet PO (21:39)
[2023-10-20] VITALS (8 sets, daily range): BP systolic 86–103; BP diastolic 53–68; PULSE 98–103; RESP 16–18; TEMP 36.2–36.6; O2SAT 94–100
[2023-10-20] MEDS: collagenase oint 30 gm 1 APPLIC TOPICAL (05:33)
[2023-10-20] MEDS: artificial tears Op Soln 15 mL Btl 1 DROP EYE-BOTH (05:33)
[2023-10-20] MEDS: escitalopram 10 mg Tablet PO (05:34)
[2023-10-20] MEDS: linezolid 600 mg Tablet PO (05:34)
[2023-10-20] MEDS: pantoprazole DR 40 mg Tablet PO (05:34)
[2023-10-20] MEDS: oxyCODONE-APAP 5-325 mg Tablet PO (05:34)
[2023-10-20] MEDS: heparin 5,000 unit/mL INJ 1 mL 5000 UNIT SUBCUT (05:34)
[2023-10-20 06:26] LABS: Basophils # 0.1 10^3/uL (0.0-0.1); Basophils % 1.4 %; Eosinophils # 0.1 10^3/uL (0.0-0.8); Eosinophils % 1.9 %; Hematocrit 27.8 % (37-53); Lymphocytes # 0.9 10^3/uL (0.8-4.8); Lymphocytes % 16.8 %; Mean Corpuscular HGB Conc 30.2 g/dL (30-55); Mean Corpuscular Hemoglobin 31.1 pg (27-33); Mean Platelet Volume 11.1 fL (7.4-10.4); Monocytes # 0.5 10^3/uL (0.2-0.9); Monocytes % 9.1 %; Neutrophils # 3.65 10^3/uL (1.8-7.7); Neutrophils % 70.4 %; Nucleated Red Blood Cells % 0 %; Platelet Count 107 10^3/cmm (157-399); Red Cell Distribution Width 19.7 % (12.1-15.1); White Blood Count 5.18 10^3/uL (3.29-11.43)
[2023-10-20 06:43] LABS: Alanine Aminotransferase 6 U/L (0-41); Albumin Level 3.8 g/dL (3.5-5.2); Alkaline Phosphatase 313 U/L (40-130); Anion Gap 17.1 (5-19); Aspartate Amino Transferase 26 U/L (0-40); Blood Urea Nitrogen 27 mg/dL (8-23); Calcium 9.1 mg/dL (8.5-10.5); Carbon Dioxide 25 mmol/L (22-29); Chloride 98 mmol/L (98-107); Creatinine Clr Calc Pharmacy 23.1384; Globulin 2.3 g/dL (1.3-4.6); Glomerular Filtration Rate 13.7 mL/min (90-130); Glucose 104 mg/dL (65-115); Magnesium 2.1 mg/dL (1.7-2.3); Osmolality Calculated 285 mOsm/kg (285-295); Phosphorus 2.7 mg/dL (2.5-4.5); Potassium 5.1 mmol/L (3.5-5.1); Sodium 135 mmol/L (136-145); Total Bilirubin 1.7 mg/dL (0.15-1.2); Total Protein 6.1 g/dL (6.6-8.7)
--- NOTE | 2023-10-20 08:03 | PC.SOCIAL ---
IMM Updated Updated pt on IMM. No questions voiced. Provided pt a copy. Initialed, dated, & timed copy in chart.
[2023-10-20] MEDS: amoxicillin-clav 500-125 mg Tablet 1 TAB PO (08:14)
[2023-10-20] MEDS: midodrine 5 mg TABLET 10 MG PO ×2 (08:14→14:14)
[2023-10-20] MEDS: aspirin 81 mg EC Tablet PO (08:15)
[2023-10-20] MEDS: cyanocobalamin 1,000 mcg Tablet 1000 MCG PO (08:15)
[2023-10-20] MEDS: miconazole 2% topical cream 28 gm 1 APPLIC TOPICAL (08:16)
[2023-10-20] MEDS: ipratropium-albuterol 3 mL Neb INHALATION (08:26)
--- NOTE | 2023-10-20 08:31 | PM.PN ---
Subjective Subjective: The patient was seen and examined. He is feeling much better. His blood pressure still remains on the low side he has anemia. He has no nausea no vomiting no fevers or chills. Medications: Reviewed: Yes Medication Review Details: Current Medications Acetaminophen (Acetaminophen 325 Mg Tablet) 650 mg PO Q6H PRN PRN Reason: Mild/Mod Pain Or Temp >/= 101 Last Admin: 10/16/23 22:51 Dose: 650 mg Albuterol/Ipratropium (Ipratropium-Albuterol 3 Ml Neb) 3 ml INHALATION Q6H PRN PRN Reason: SHORTNESS OF BREATH Last Admin: 10/20/23 08:26 Dose: 3 ml Amiodarone HCl (Amiodarone 200 Mg Tablet) 200 mg PO BEDTIME [facility] Last Admin: 10/19/23 21:39 Dose: 200 mg Amoxicillin/Clavulanate Potassium (Amoxicillin-Clav 500-125 Mg Tablet) 1 tab PO BID [facility]; Protocol Last Admin: 10/20/23 08:14 Dose: 1 tab Artificial Tears (Artificial Tears Op Soln 15 Ml Btl) 1 drop EYE-BOTH Q4H PRN PRN Reason: DRY EYE(S) Last Admin: 10/20/23 05:33 Dose: 1 drop Aspirin (Aspirin 81 Mg Ec Tablet) 81 mg PO DAILY [facility] Last Admin: 10/20/23 08:15 Dose: 81 mg Atorvastatin Calcium (Atorvastatin 40 Mg Tablet) 40 mg PO BEDTIME [facility] Last Admin: 10/19/23 21:38 Dose: 40 mg Bisacodyl (Bisacodyl 5 Mg Tablet) 10 mg PO DAILY PRN PRN Reason: Constipation Collagenase (Collagenase Oint 30 Gm) 1 applic TOPICAL BID [facility] Last Admin: 10/20/23 05:33 Dose: 1 applic Cyanocobalamin (Cyanocobalamin 1,000 Mcg Tablet) 1,000 mcg PO DAILY [facility] Last Admin: 10/20/23 08:15 Dose: 1,000 mcg Escitalopram Oxalate (Escitalopram 10 Mg Tablet) 10 mg PO QAM [facility] Last Admin: 10/20/23 05:34 Dose: 10 mg Heparin Sodium (Porcine) (Heparin 5,000 Unit/Ml Inj 1 Ml) 5,000 unit SUBCUT Q12H [facility] Last Admin: 10/20/23 05:34 Dose: 5,000 unit Sodium Chloride (Sodium Chloride 0.9%) 1,000 mls @ 0 mls/hr IV .Q0M PRN PRN Reason: hypotension or symptomatic Albumin Human (Albumin) 12.5 gm in 50 mls @ 60 mls/hr IV PRN PRN PRN Reason: Hypotension and/or symptomatic Last Infusion: 10/18/23 13:23 Dose: Infused Linezolid (Linezolid 600 Mg Tablet) 600 mg PO Q12H [facility]; Protocol Last Admin: 10/20/23 05:34 Dose: 600 mg Miconazole Nitrate (Miconazole 2% Topical Cream 28 Gm) 1 applic TOPICAL BID [facility] Last Admin: 10/20/23 08:16 Dose: 1 applic Midodrine (Midodrine 5 Mg Tablet) 10 mg PO TID [facility] Last Admin: 10/20/23 08:14 Dose: 10 mg Ondansetron HCl (Ondansetron 2 Mg/Ml Sdv 2 Ml) 4 mg IVP Q8H PRN PRN Reason: vomiting, or N/V if npo Oxycodone/Acetaminophen (Oxycodone-Apap 5-325 Mg Tablet) 1 - 2 tab PO Q4H PRN PRN Reason: Pain Last Admin: 10/20/23 05:34 Dose: 1 tab Pantoprazole Sodium (Pantoprazole Dr 40 Mg Tablet) 40 mg PO Q12H [facility] Last Admin: 10/20/23 05:34 Dose: 40 mg Ropinirole HCl (Ropinirole 2 Mg Tablet) 2 mg PO BEDTIME [facility] Last Admin: 10/19/23 21:39 Dose: 2 mg Tamsulosin HCl (Tamsulosin 0.4 Mg Capsule) 0.4 mg PO BEDTIME [facility] Last Admin: 10/19/23 21:38 Dose: 0.4 mg Vitals/I&O/Wt Last Vital Signs Temp 97.2 F L 10/20/23 07:35 Pulse 98 10/20/23 08:27 Resp 16 10/20/23 08:27 BP 101/62 10/20/23 07:35 Pulse Ox 95 10/20/23 08:27 O2 Del Method Nasal Cannula 10/20/23 08:27 O2 Flow Rate 2 10/20/23 08:27 10/19/23 10/20/23 10/20/23 22:59 06:59 14:59 Intake Total 120 / 840 240 / 240 Output Total 0 / 0 25 / 25 Balance 120 / 840 -25 / 815 240 / 240 Weight last 48 hrs Weight 122.47 kg Weight 120.1 kg Physical Exam Narrative: The patient is sitting up comfortably. Vital signs stable. Vital signs noted. HEENT normocephalic atraumatic. Neck is supple. Lungs dull bases. Heart regular. Abdomen is soft positive bowel sounds extremities bilateral edema improving. neuro awake alert oriented x 3. Dialysis access right anterior chest wall. Neuro awake alert oriented x 3. The patient was seen and examined using audiovisual equipment with the nurse who examined the patient. Data 10/20/23 05:18 10/20/23 05:18 Micro: Microbiology 10/11/23 18:23 Anaerobic Culture - Preliminary Penis Anaerobic gram negative rods A&P Assessment and plan (1) ESRD (end stage renal disease): 63-year-old gentleman 1. ESRD status post extra hemodialysis on Wednesday. Continue hemodialysis Wednesday and Wednesday may need an extra treatment on the weekends. HD today 2. Catheter associated UTI. Please renal dose antibiotics-. Patient on Augmentin and linezolid. 3. Anemia. Ferritin in the 800s TSAT around 29%. Use epogen. 4. A-fib. 5. Leg edema. improving with dialysis. 6. Normal TSH. 7. Monitor blood pressure The patient was seen and examined with the nurse. This was a telehealth visit using A/V equipment. Plan See above. Attestations Medical Necessity Statement*: abx per medicine. dialysis as toletrated Time Spent in Patient Care: 16 - 35 minutes (>than 50% of time spent in counselling and/or direct pt care on unit). Coding Level of Care Code Acute Code for Chg Fwd Diagnoses ESRD (end stage renal disease) N18.6
[2023-10-20] MEDS: heparin, porcine 1,000 unit/mL INJ 10 mL 10000 UNIT HE (10:00)
[2023-10-20] MEDS: albumin 12.5 GM/50 ML VIAL IV ×3 (10:07→11:49)
--- NOTE | 2023-10-20 10:29 | P.DS_ITS ---
Discharge Providers Date of Admission: 10/11/23 21:23 Date of Discharge: October 20, 2023 Attending Provider at Admission: Desean Montes MD Attending Provider at Discharge: Desean Montes MD Primary Care Provider: Sulma Zavala MD Diagnoses at Discharge Discharge Diagnosis (1) ESRD (end stage renal disease): Status: Acute Reason for Visit Reason for Visit: abd pain,sob, ams Hospital Course Hospital Course Richard Huffman is a 63 year old male with a past medical history of CHF, history of end-stage renal disease on dialysis, type 2 diabetes mellitus, atrial fibrillation, decreased urinary output, hematuria,. According to ER physician, [facility] facility had concern for urinary retention patient is end-stage renal disease on dialysis according to senior care he does urinate, due to concern for decreased urination, urine retention, Holly catheter was placed, there was also concern for UTI,. Currently patient's biggest complaint is lower abdominal pain, pelvic pain, pain at the head of his penis, he tells me that they placed a Holly catheter as his urine output decreased, he tells me that he has been urinating less recently, denies any fevers, no chills, no nausea, no vomiting, no no flank pain, no perineal pain. I have called [facility] senior care, but havenot been able to get through to nursing staff Patient presented to [facility] for cath associated UTI, with balanoposthitis. Holly catheter removed, CT scan abdomen pelvis IV contrast no acute findings, received broad-spectrum antibiotic therapy, urine cultures/penile discharge culture showing Proteus, Enterococcus, staph species. Patient received broad-spectrum antibiotic therapy, eventually tapered to p.o. antibiotics, patient completed 7 days of antibiotics as inpatient. There is also concern for sepsis secondary to catheter associated UTI which resolved. For patient balanoposthitis, catheter was removed, general surgery was consulted, treated with chemical debridement, received topical creams mupirocin, continue to have purulence at the head of the penis, thus a topical antifungal cream was added. On 10/20/2023, erythema, swelling at the head of the penis has resolved, continues to have scant mucopurulent at the head of the penis, but significantly improved, will discharge on mupirocin cream with metronidazole, continue topical antifungal cream, follow-up with urology as outpatient. Continue dry dressing changes as needed to minimize irritation and Santyl once mucopurulence has resolved. During his hospitalization patient had NSTEMI, no chest pain complaints, medically managed discharged on aspirin, statin. Patient required prolonged hospitalization for fluid overload secondary to diastolic CHF exacerbation, pitting edema, requiring inpatient dialysis, dialyzed over 7 L. Patient will be discharged with his dialysis schedule as outpatient. For patient's tremor, patient has a resting tremor, he tells me that he has had this resting tremor for longer than a year, potentially parkinsonian tremor, will dis charge on Sinemet, follow-up with neurology as outpatient. Physical Exam Const: COMMON NORMALS: no acute distress and patient oriented x3 Resp: COMMON NORMALS: normal respiratory effort, No retractions, No use of accessory muscles and clear to auscultation bilaterally AUSCULTATION: clear to auscultation bilaterally Cardio: COMMON NORMALS: regular rate, regular rhythm, S1 normal heart sound present and S2 normal heart sound present RATE: regular rate RHYTHM: regular rhythm HEART SOUNDS: S1 normal heart sound present and S2 normal heart sound present GI: COMMON NORMALS: Normal to inspection, nondistended, normoactive bowel sounds present, non-tender and no masses Extremity: NARRATIVE EXTREMITY EXAM: 1+ edema, superficial blister, right ramona n, significantly resolved OTHER: Penile head, no significant erythema, swelling, no discharge from the head of the penis, does have mucopurulence at the head of the penis, but significantly improved Neuro: COMMON NORMALS: patient oriented x3 Psych: COMMON NORMALS: mental status grossly normal Discharge Data Studies Completed and Pending Completed Studies During Hospitalization Category Date Time Status CT abdomen pelvis w con* [id number] Stat Cat Scan 10/11/23 17:[address] lumbar spine wo con* [id number] Stat Cat Scan 10/19/23 13:02 Completed XR chest 1V portable [id number] Stat Exams 10/11/23 15:12 Completed CV. echo complete* [id number] Routine Ultrasound 10/12/23 07:44 Completed Pending at discharge Category Date Time Status Anaerobic Culture Stat Lab 10/11/23 18:23 Results Radiology Impressions Chest X-Ray 10/11/23 15:12 IMPRESSION: No acute findings. Abdomen/Pelvis CT 10/11/23 17:21 IMPRESSION: 1. Subxiphoid hernia contains a nondilated loop of transverse colon and more in purely contains multiple nondilated loops of small bowel. 2. Circumferential wall thickening of the distal rectum, concerning for proctitis in the appropriate clinical setting. 3. Diverticulosis without evidence of diverticulitis. 4. Diffuse anasarca. 5. Small volume free fluid within the pelvis. 6. Severe diffuse atherosclerotic calcifications including coronary artery calcifications. COMMENTS: Consistent with the [place] [employer]'s Incidental Findings Committee white paper (J Am Yony Radiol 2018): Any incidental renal lesion less than 1 cm or classified as too small to characterize, or any incidental cystic renal lesion characterized as simple-appearing, is likely benign. No follow-up imaging is recommended for these lesions per consensus recommendations based on imaging criteria. Lumbar Spine CT 10/19/23 13:02 IMPRESSION: 1. Mild progression of degenerative disc disease and stenosis at L3-4 and L4-5 since the prior study. 2. L4-5: Moderate central, bilateral subarticular recess and foraminal stenosis. 3. Mild central with moderate bilateral subarticular recess and mild foraminal stenosis at L5-S1. 4. No fractures. 5. Shallow RIGHT foraminal disc protrusion at L2-3. Laboratory Results WBC 5.18 10^3/uL (3.29-11.43) 10/20/23 05:18 RBC 2.70 10^6/uL (3.85-5.65) L 10/20/23 05:18 Hgb 8.40 g/dL (11.27-16.99) L 10/20/23 05:18 Hct 27.8 % (37-53) L 10/20/23 05:18 MCV 103.0 fl (82-101) H 10/20/23 05:18 MCH 31.1 pg (27-33) 10/20/23 05:18 MCHC 30.2 g/dL (30-55) 10/20/23 05:18 RDW 19.7 % (12.1-15.1) H 10/20/23 05:18 Plt Count 107 10^3/cmm (157-399) L 10/20/23 05:18 MPV 11.1 fL (7.4-10.4) H 10/20/23 05:18 Neut % (Auto) 70.4 % 10/20/23 05:18 Lymph % (Auto) 16.8 % 10/20/23 05:18 Bartholomew % (Auto) 9.1 % 10/20/23 05:18 Eos % (Auto) 1.9 % 10/20/23 05:18 Baso % (Auto) 1.4 % 10/20/23 05:18 Neut # (Auto) 3.65 10^3/uL (1.8-7.7) 10/20/23 05:18 Lymph # (Auto) 0.9 10^3/uL (0.8-4.8) 10/20/23 05:18 Bartholomew # (Auto) 0.5 10^3/uL (0.2-0.9) 10/20/23 05:18 Eos # (Auto) 0.1 10^3/uL (0.0-0.8) 10/20/23 05:18 Baso # (Auto) 0.1 10^3/uL (0.0-0.1) 10/20/23 05:18 Nucleated RBC % (auto) 0 % 10/20/23 05:18 Nucleated RBCs # 0.0 /100WBC 10/20/23 05:18 ESR 6 mm/hr (0-10) 10/19/23 14:59 PT 17.20 SECONDS (12.1-14.9) H 10/11/23 18:19 INR 1.36 (0.8-1.2) H 10/11/23 18:19 Sodium 135 mmol/L (136-145) L 10/20/23 05:18 Potassium 5.1 mmol/L (3.5-5.1) 10/20/23 05:18 Chloride 98 mmol/L (98-107) 10/20/23 05:18 Carbon Dioxide 25 mmol/L (22-29) 10/20/23 05:18 Anion Gap 17.1 (5-19) 10/20/23 05:18 BUN 27 mg/dL (8-23) H 10/20/23 05:18 Creatinine 4.4 mg/dL (0.7-1.2) H 10/20/23 05:18 GFR Calculation 13.7 mL/min (90-130) L 10/20/23 05:18 Glucose 104 mg/dL (65-115) 10/20/23 05:18 Estimat Average Glucose 91 10/11/23 22:55 Hemoglobin A1c 4.8 % (4.0-6.0) 10/11/23 22:55 Calculated Osmolality 285 mOsm/kg (285-295) 10/20/23 05:18 Lactic Acid 3.3 mmol/L (0.5-2.2) H 10/11/23 16:58 Lactic Acid (Sepsis) 2.0 mmol/L (0.5-2.2) 10/11/23 20:35 Lactate 1.9 mmol/L (0.5-2.2) 10/19/23 14:59 Calcium 9.1 mg/dL (8.5-10.5) 10/20/23 05:18 Phosphorus 2.7 mg/dL (2.5-4.5) 10/20/23 05:18 Magnesium 2.1 mg/dL (1.7-2.3) 10/20/23 05:18 Iron 35 ug/dL (59-158) L 10/17/23 09:30 TIBC 117 mcg/dl 10/17/23 09:30 % Saturation 29.9 % (20-50) 10/17/23 09:30 Unsat Iron Binding 82 ug/dL (112-347) L 10/17/23 09:30 Ferritin 843 ng/mL (30-400) H 10/17/23 09:30 Total Bilirubin 1.7 mg/dL (0.15-1.2) H 10/20/23 05:18 AST 26 U/L (0-40) 10/20/23 05:18 ALT 6 U/L (0-41) 10/20/23 05:18 Alkaline Phosphatase 313 U/L (40-130) H 10/20/23 05:18 Creatine Kinase 185 U/L (39-308) 10/11/23 18:19 Troponin T 5th Gen ng/L 329 ng/L (0-15) H* 10/12/23 11:15 Troponin T Baseline 308 ng/L (0-15) H* 10/11/23 18:19 Troponin T 120 Minute 381.5 ng/L (0-15) H 10/11/23 22:55 Delta Troponin T 73.5 ABS# (0-10) H* 10/11/23 22:55 Troponin T Hi Sens 6Hr 350.2 ng/L (0-15) H 10/12/23 00:25 Troponin T Hi Sens 6Hr Delta 42.2 ng/L (0-12) H* 10/12/23 00:25 C-Reactive Protein 55.6 mg/L (0.0-4.9) H 10/19/23 14:59 NT-Pro-B Natriuret Pep > 90445 pg/mL (0-125) H 10/17/23 03:35 Total Protein 6.1 g/dL (6.6-8.7) L 10/20/23 05:18 Albumin 3.8 g/dL (3.5-5.2) 10/20/23 05:18 Globulin 2.3 g/dL (1.3-4.6) 10/20/23 05:18 Vitamin B12 1699 pg/mL (232-1245) H 10/16/23 02:38 Folate 6.7 ng/mL (4.5-32.2) 10/16/23 02:38 Procalcitonin 0.39 ng/mL (0-0.5) 10/19/23 14:59 TSH 4.81 uIU/mL (0.27-4.20) H 10/11/23 22:55 Urine Color Yellow (Yellow) 10/11/23 15:33 Urine Appearance Cloudy (CLEAR) A 10/11/23 15:33 Urine pH 9 (5-7) H 10/11/23 15:33 Ur Specific [place] 1.010 (1.005-1.030) 10/11/23 15:33 Urine Protein 3+ (Negative) H 10/11/23 15:33 Urine Glucose (UA) Norm (Normal) 10/11/23 15:33 Urine Ketones Negative (Negative) 10/11/23 15:33 Urine Blood 3+ (Negative) H 10/11/23 15:33 Urine Nitrate Negative (Negative) 10/11/23 15:33 Urine Bilirubin Neg (Negative) 10/11/23 15:33 Urine Urobilinogen Neg mg/dL (Negative) 10/11/23 15:33 Ur Leukocyte Esterase 2+ (Negative) H 10/11/23 15:33 Urine RBC >100 /hpf (0-2) H 10/11/23 15:33 Urine WBC Too numerous to cnt /hpf (0-5) H 10/11/23 15:33 Ur Squamous Epith Cells 0-4 /hpf (0-5) H 10/11/23 15:33 Amorphous Sediment Not Reportable 10/11/23 15:33 Urine Bacteria 4+ /hpf (NONE) H 10/11/23 15:33 Random Vancomycin 27.0 ug/mL (20.0-40.0) 10/17/23 03:35 C.trachomatis RNA (TMA) Not detected (NOT DETECTED) 10/11/23 15:33 Chlamydia/GC Comment See note 10/11/23 15:33 Hep Bs Antigen Non-reactive (Nonreactive) 10/11/23 13:45 Hep Bs Antibody 254.8 (11.5-1000) 10/11/23 13:45 N.gonorrhoeae RNA (TMA) Not detected (NOT DETECTED) 10/11/23 15:33 Vitals Last Vital Signs Temp 97.2 F L 10/20/23 07:35 Pulse 98 10/20/23 08:27 Resp 16 10/20/23 08:27 BP 101/62 10/20/23 07:35 Pulse Ox 95 10/20/23 08:27 O2 Del Method Nasal Cannula 10/20/23 08:27 O2 Flow Rate 2 10/20/23 08:27 Discharge Plan Discharge Patient Disposition: Xfer SNF Condition: Stable Prescriptions: New amiodarone [Pacerone] 200 mg Tablet 200 mg PO BEDTIME 30 Days Qty: 30 0RF miconazole nitrate [Antifungal (miconazole)] 2 % cream 1 applic topical BID Qty: 30 0RF carbidopa-levodopa [Sinemet] 10-100 mg tablet 1 tab PO TID 30 Days Qty: 90 0RF Rx Instructions: start 10/21/2023 aspirin 81 mg Tablet,Delayed Release (Dr/Ec) 81 mg PO DAILY 30 Days Qty: 30 0RF atorvastatin 40 mg Tablet 40 mg PO BEDTIME 30 Days Qty: 30 0RF midodrine 5 mg Tablet 10 mg PO TID 30 Days Qty: 180 0RF metronidazole-mupirocin 1-2 % ointment 1 ea topical BID 14 Days Qty: 30 0RF Continued tramadol 50 mg tablet 50 mg PO Q6H PRN (Reason: Pain, Mild) albuterol sulfate [Ventolin HFA] 90 mcg/actuation HFA aerosol inhaler 1 inh inhalation QID PRN (Reason: shortness of breath or wheezing) Qty: 8.5 3RF budesonide 0.5 mg/2 mL suspension for nebulization 0.5 mg inhalation BID Qty: 60 3RF budesonide-formoterol [Symbicort] 80-4.5 mcg/actuation HFA aerosol inhaler 2 puff INHALATION BID PRN (Reason: unknown) Qty: 10.2 2RF Lexapro 10 mg tablet 10 mg PO QAM Qty: 90 1RF ipratropium-albuterol 0.5 mg-3 mg(2.5 mg base)/3 mL solution for nebulization 3 ml INHALATION Q6H Qty: 180 3RF ropinirole 2 mg tablet 2 mg PO BEDTIME Qty: 90 1RF nitroglycerin 2.5 mg capsule, extended release 2.5 mg PO DAILY PRN (Reason: chest tightness) Qty: 30 0RF fluticasone propionate 50 mcg/actuation spray,suspension 2 spray intranasal DAILY PRN (Reason: Allergy Symptoms) Qty: 16 1RF (DME) Diabetic shoes See Rx Instructions .ROUTE .MEDSUPPLY Qty: 1 0RF Rx Instructions: With 3 pairs of inserts to the shoe guys (DME) four point rollaid with chair See Rx Instructions .Route .MEDSUPPLY Qty: 1 0RF Rx Instructions: As directed (DME) nebulizer See Rx Instructions .Route .MEDSUPPLY Qty: 1 0RF Rx Instructions: As directed (DME) nebulizer supplies (hose, mask,ect) See Rx Instructions .Route .MEDSUPPLY Qty: 1 1RF Rx Instructions: As directed (DME) oxygen concentrator See Rx Instructions .Route .MEDSUPPLY Qty: 1 0RF Rx Instructions: As directed (DME) shower chair See Rx Instructions .Route .MEDSUPPLY Qty: 1 1RF Rx Instructions: As directed (DME) toiler riser with handles See Rx Instructions .Route .MEDSUPPLY Qty: 1 0RF Rx Instructions: As directed (DME) [place] See Rx Instructions .Route .MEDSUPPLY Qty: 1 0RF Rx Instructions: As directed (DME) Crutches See Rx Instructions .Route .MEDSUPPLY Qty: 1 0RF Rx Instructions: As directed HOME acetaminophen 325 mg Tablet 650 mg PO Q6H PRN (Reason: PAIN OR INCREASED TEMP) ondansetron HCl 8 mg tablet 8 mg PO Q6H PRN (Reason: Nausea) pantoprazole 40 mg tablet,delayed release (DR/EC) 40 mg PO Q12H 30 Days Qty: 60 0RF oxycodone-acetaminophen 5-325 mg tablet 0.5 - 1 tab PO Q4H PRN (Reason: Pain) cyanocobalamin (vitamin B-12) [Vitamin B-12] 1,000 mcg tablet 1,000 mcg PO DAILY RenaPlex-D 800 mcg-12.5 mg -2,000 unit tablet 1 tab PO BEDTIME sucralfate 1 gram tablet 1 g PO Q12H Flomax 0.4 mg Capsule 0.4 mg PO BEDTIME bisacodyl 5 mg Tablet 10 mg PO DAILY PRN (Reason: Constipation) Fosrenol 500 mg Tablet,Chewable 500 mg PO TID Rx Instructions: administer with food; chew thoroughly before swallowing Discontinued bumetanide 2 mg tablet 2 mg PO BID Qty: 180 1RF isosorbide mononitrate 30 mg tablet extended release 24 hr 30 mg PO DAILY Qty: 90 1RF doxycycline hyclate 100 mg capsule 100 mg PO DAILY metolazone 5 mg tablet 5 mg PO DAILY hydralazine 25 mg tablet 25 mg PO BID metoprolol tartrate 25 mg tablet 25 mg PO BID Calmoseptine 0.44-20.6 % Ointment 1 applic TOPICAL QID PRN (Reason: Rash) Discharge Orders: Discharge Order (Routine); Ordered 10/20/23 Ordered By: Desean Montes Referrals: [facility] [Outside] Sulma Zavala MD [Primary Care Provider] - 1-3 days Tha Nash MD [Physician] - 1-3 days Sami Braden MD [Referring] - 1-3 days (recurrent uti/balanopthitis) Discharge Diet: Cardiac Discharge Activity: Resume usual activity Patient Instructions: End Stage Kidney Disease (DC), Opioid Safety Activity Restrictions/Additional Instructions: - Continue topical creams to penile head twice daily for 7 days -Please follow-up with urology -Patient completed antibiotic therapy as inpatient -Continue Sinemet for tremor Discharge Attestations Time Spent in Discharge Care*: greater than 30 min Status at Discharge: Cognitive status at discharge: cognitively intact , Behavioral status at discharge: cooperative , Quality Metrics Clinical Quality Measures [ No reported AMI, CVA or VTE this stay] Coding Level of Care Code 83901 Total time (in minutes) for Discharge: 45 Diagnoses ESRD (end stage renal disease) N18.6
[2023-10-20 11:05] LABS: SARS Covid-2 Antigen negative (Negative)
--- NOTE | 2023-10-20 15:28 | PC.NURSE ---
Discharge Note Patient discharged to [facility] via [facility] accompanied by [facility]. Report called to ANTONY Tracy at [facility]. Patient to complete dialysis and wait for transport to get. Packet provided to transport.
== END 2023-10-20 16:50 | disposition skilled nursing facility (03) | DRG 871 ==
LOC: ER 18:41 → ICU 21:24 → MEDSURG 10-12 18:03
PROVIDERS: Hospitalist; Internal Medicine Nephrology; Admitting Provider Family Medicine; Emergency Provider Family Medicine; PCP Family Medicine; Visit Provider Family Medicine
DX: A41.9 Sepsis, unspecified organism (principal); I50.33 Acute on chronic diastolic (congestive) heart failure; N18.6 End stage renal disease; T83.511A Infection and inflammatory reaction due to indwelling urethral catheter, initial encounter; I13.2 Hypertensive heart and chronic kidney disease with heart failure and with stage 5 chronic kidney disease, or end stage renal disease; E11.22 Type 2 diabetes mellitus with diabetic chronic kidney disease; E11.51 Type 2 diabetes mellitus with diabetic peripheral angiopathy without gangrene; I48.91 Unspecified atrial fibrillation; R33.9 Retention of urine, unspecified; Y73.8 Miscellaneous gastroenterology and urology devices associated with adverse incidents, not elsewhere classified; L89.152 Pressure ulcer of sacral region, stage 2; R31.9 Hematuria, unspecified; I34.0 Nonrheumatic mitral (valve) insufficiency; G89.29 Other chronic pain; D63.1 Anemia in chronic kidney disease; G47.33 Obstructive sleep apnea (adult) (pediatric); R25.1 Tremor, unspecified; B95.8 Unspecified staphylococcus as the cause of diseases classified elsewhere; B95.2 Enterococcus as the cause of diseases classified elsewhere; B96.4 Proteus (mirabilis) (morganii) as the cause of diseases classified elsewhere; S31.20XA Unspecified open wound of penis, initial encounter; N47.6 Balanoposthitis; Z99.2 Dependence on renal dialysis; Z11.52 Encounter for screening for COVID-19; I25.2 Old myocardial infarction; Z87.891 Personal history of nicotine dependence; Z95.2 Presence of prosthetic heart valve; Z89.421 Acquired absence of other right toe(s)
CPT/HCPCS: 36415; 51798; 71045; 72131; 74177; 80053; 80202; 81001; 82550; 82607; 82728; 82746; 83036; 83540; 83550; 83605; 83735; 83880; 84100; 84145; 84443; 84484; 85025; 85610; 85651; 86140; 86706; 87040; 87070; 87075; 87077; 87086; 87186; 87205; 87340; 87426; 87491; 87591; 90935; 93005; 93306; 94640; 94664; 96372; 96374; 96376; 97110; 97116; 97161; 97165; 97530; 97535; 99285; J1644; J2185; J3370; J7030; J7050; P9047; Q3014; Q4081; Q9967

== ENCOUNTER 2023-10-22 16:42 | Observation (INO) | payer OTHER, SELFPAY ==
[2023-10-22] VITALS (7 sets, daily range): BP systolic 99–102; BP diastolic 62–66; PULSE 105–108; RESP 15–20; TEMP 36.7–37.1; O2SAT 93–100; BMI 39.2
--- NOTE | 2023-10-22 17:17 | W.ED.GIBLEED ---
HPI - GI Bleed General: Chief complaint: GI Bleed Stated complaint: blood in stool Time Seen by Provider: 10/22/23 16:50 History of Present Illness: 63-year-old male presents to the emergency room he was discharged a couple days ago he says intermittently since he left he had blood in his stool. Patient has end-stage renal disease has had problems with GI bleed in the past is not currently on any anticoagulants. Associated symptoms: Denies abdominal pain, chills, fever(s), nausea, rash or vomiting Related Data Home Medications Medication Instructions Recorded Confirmed oxycodone-acetaminophen 5 mg-325 0.5 - 1 tab PO Q4H PRN Pain 07/15/22 10/23/23 mg tablet cyanocobalamin (vitamin B-12) 1,000 mcg PO DAILY 08/25/22 10/23/23 1,000 mcg tablet (Vitamin B-12) tramadol 50 mg tablet 50 mg PO Q6H PRN Pain, Mild 12/29/22 10/23/23 vit B,C-folic ac 800 mcg-zinc 12.5 1 tab PO BEDTIME 05/15/23 10/23/23 mg-selen-D3 2,000 unit-vit E tablet (RenaPlex-D) acetaminophen 325 mg tablet 650 mg PO Q6H PRN PAIN OR 08/16/23 10/23/23 INCREASED TEMP ondansetron HCl 8 mg tablet 8 mg PO Q6H PRN Nausea 08/16/23 10/23/23 bisacodyl 5 mg tablet 10 mg PO DAILY PRN Constipation 10/12/23 10/23/23 lanthanum 500 mg chewable tablet 500 mg PO TID 10/12/23 10/23/23 (Fosrenol) sucralfate 1 gram tablet 1 g PO Q12H 10/12/23 10/23/23 tamsulosin 0.4 mg capsule (Flomax) 0.4 mg PO BEDTIME 10/12/23 10/23/23 Previous Rx's Medication Instructions Recorded Cruthes #1 ea 05/11/23 albuterol sulfate 90 mcg/actuation 1 inh inhalation QID PRN shortness 06/01/23 aerosol inhaler (Ventolin HFA) of breath or wheezing #8.5 grams budesonide 0.5 mg/2 mL suspension 0.5 mg (2 mL) inhalation BID #60 mL 06/01/23 for nebulization budesonide-formoterol HFA 80 2 puff inhalation BID PRN unknown 06/01/23 mcg-4.5 mcg/actuation aerosol #10.2 grams inhaler (Symbicort) escitalopram oxalate 10 mg tablet 10 mg PO QAM #90 tabs 06/01/23 (Lexapro) fluticasone propionate 50 2 spray intranasal DAILY PRN 06/01/23 mcg/actuation nasal Allergy Symptoms #16 grams spray,suspension ipratropium 0.5 mg-albuterol 3 mg 3 ml inhalation Q6H Shortness Of 06/01/23 (2.5 mg base)/3 mL nebulization Breath #180 mL soln nitroglycerin 2.5 mg 2.5 mg PO DAILY PRN chest 06/01/23 capsule,extended release tightness #30 caps ropinirole 2 mg tablet 2 mg PO BEDTIME #90 tabs 06/01/23 Diabetic shoes #1 ea 06/04/23 four point rollaid with chair #1 ea 06/04/23 nebulizer #1 ea 06/04/23 nebulizer supplies (hose, mask,ect) #1 ea 06/04/23 oxygen concentrator #1 ea 06/04/23 shower chair #1 ea 06/04/23 toiler riser with handles #1 ea 06/04/23 [place] #1 ea 06/17/23 amiodarone 200 mg tablet (Pacerone) 200 mg PO BEDTIME 30 days #30 tabs 10/20/23 aspirin 81 mg tablet,delayed 81 mg PO DAILY 30 days #30 tabs 10/20/23 release atorvastatin 40 mg tablet 40 mg PO BEDTIME 30 days #30 tabs 10/20/23 carbidopa 10 mg-levodopa 100 mg 1 tab PO TID 30 days #90 tabs 10/20/23 tablet (Sinemet) collagenase clostridium histo. 250 1 applic topical DAILY #30 grams 10/20/23 unit/gram topical ointment (Santyl) metronidazole 1 %-mupirocin 2 % 1 ea topical BID 2 weeks #30 mL 10/20/23 topical ointment miconazole nitrate 2 % topical 1 applic topical BID #30 grams 10/20/23 cream (Antifungal (miconazole)) midodrine 5 mg tablet 10 mg (2 x 5 mg) PO TID 30 days 10/20/23 #180 tabs pantoprazole 40 mg tablet,delayed 40 mg PO BID 4 weeks #56 tabs 10/24/23 release (Protonix) sucralfate 1 gram tablet (Carafate) 1 g PO BID 4 weeks #56 tabs 10/24/23 Allergies Allergy/AdvReac Type Severity Reaction Status Date / Time latex Allergy Mild Blisters Verified 10/11/23 15:25 petrolatum,white Allergy Mild Blisters Verified 10/11/23 15:25 [From A and D Barrier] amlodipine Allergy Unknown Verified 10/11/23 15:25 Review of Systems Const: Denies: fever(s) or chills Card: Denies: chest pain Resp: Denies: dyspnea GI: Reports: hematochezia; Denies: abdominal pain, nausea, vomiting or hematemesis : Denies: dysuria, urinary frequency or urinary urgency Musc: Denies: neck pain or back pain Skin/Breast: Denies: rash PFSH ED PFSH: Medical History ESRD (end stage renal disease) Acute exacerbation of congestive heart failure Bradycardia Hyperkalemia ESRD (end stage renal disease) on dialysis Acute hyperkalemia NSTEMI (non-ST elevated myocardial infarction) Chest pain Atrial fibrillation Moderate to severe mitral regurgitation Chronic pain Chronic GI bleeding Hiatal hernia High risk medication use Chronic anemia COPD (chronic obstructive pulmonary disease) Severe tobacco use disorder ESRD on hemodialysis History of renal dialysis Chronic kidney disease 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 Intermittent palpitations Hyperlipidemia Hypertension XI (obstructive sleep apnea) DJD (degenerative joint disease) Atrial flutter PVD (peripheral vascular disease) Diabetes Surgical History 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 H/O aortic valve replacement with tissue graft H/O aortic valve replacement H/O foot surgery Family History Grandmother Diabetes Grandfather Diabetes Denies family history of CAD (coronary artery disease) Clotting disorder Dementia Chronic kidney disease (CKD) Suicide Anesthesia complication Bleeding disorder Lung disease Cancer Stroke Social History (Reviewed 10/26/23 @ 06:12 by SAL Cotton Smoking and tobacco/nicotine status: former use of tobacco/nicotine Alcohol intake: never Substance/Drug Use: never Lives independently: Yes (with girlfriend) Household members: significant other Marital status: Single service: No 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al status: disabled 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 Pets and animals: Yes Special araceli needs: No Agree to transfusion: Yes Physical Exam Const: GENERAL APPEARANCE: cooperative ORIENTATION/CONSCIOUSNESS: Yes awake, Yes oriented to person, Yes oriented to place and Yes oriented to time HENMT: COMMON NORMALS: normocephalic, atraumatic and hearing grossly normal bilaterally HEAD & SCALP: normocephalic and atraumatic Resp: COMMON NORMALS: normal respiratory effort, No retractions, No use of accessory muscles and clear to auscultation bilaterally AUSCULTATION: clear to auscultation bilaterally Cardio: COMMON NORMALS: regular rhythm and No murmurs present (Cardio) RATE: tachycardic RHYTHM: regular rhythm GI: COMMON NORMALS: Soft to palpation and No hepatosplenomegaly present AUSCULTATION: Yes normoactive bowel sounds PALPATION: Yes Soft to palpation, No Tenderness to palpation present (GI), No Guarding due to palpation present (GI) and Yes No hepatosplenomegaly present OTHER: Anasarca above the level of the umbilicus Extremity: COMMON NORMALS: normal to inspection, capillary refill normal and no calf tenderness OTHER: 2+ edema lower extremities. Anasarca up to the level above the umbilicus Neuro: SENSORIUM/ORIENTATION: Yes oriented to person, Yes oriented to place and Yes oriented to time Course Vital Signs: Vital signs: Vital Signs Temperature 97.6 F 10/24/23 08:54 Pulse Rate 103 H 10/24/23 11:11 Respiratory Rate 17 10/24/23 11:11 Blood Pressure 109/71 10/24/23 11:11 Pulse Oximetry 94 10/24/23 11:11 Oxygen Delivery Me thod Nasal Cannula 10/24/23 11:11 Oxygen Flow Rate 2 10/24/23 08:54 MDM - GI Bleed Medical Decision Making Acute lower GI bleed. 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 At this point he is stable he has no focal neurologic deficits. He has some chronic GI blood loss as well according to his old records. Hemoccult was sharply positive. He did not finish his dialysis today nephrology will be consulted. Discussed with hospitalist orders written Differential Diagnosis Likely Lower gastrointestinal hemorrhage and hematochezia; Unlikely hemorrhoids, esophageal varices or anal fissure Medical Records I reviewed the patient's medical records. Lab Data I reviewed the patient's lab results. 10/24/23 03:54 10/24/23 03:54 Radiology Impressions Abdomen/Pelvis CT 10/22/23 17:18 IMPRESSION: 1. Subxiphoid hernia contains a nondilated loop of transverse colon. No evidence of obstruction. No pneumoperitoneum. 2. Increasing small volume ascites. 3. Improving circumferential wall thickening of the rectum. 4. Diverticulosis without evidence of diverticulitis. 5. Diffuse anasarca. 6. Severe diffuse atherosclerotic calcifications including coronary artery calcifications. COMMENTS: Consistent with the [employer]'s Incidental Findings Committee white paper (J Am Yony Radiol 2018): Any incidental renal lesion less than 1 cm or classified as too small to characterize, or any incidental cystic renal lesion characterized as simple-appearing, is likely benign. No follow-up imaging is recommended for these lesions per consensus recommendations based on imaging criteria. Laboratory Results WBC 5.03 10^3/uL (3.29-11.43) 10/22/23 17:33 RBC 2.60 10^6/uL (3.85-5.65) L 10/22/23 17:33 Hgb 8.10 g/dL (11.27-16.99) L 10/22/23 17:33 Hct 26.7 % (37-53) L 10/22/23 17:33 MCV 102.7 fl (82-101) H 10/22/23 17:33 MCH 31.2 pg (27-33) 10/22/23 17:33 MCHC 30.3 g/dL (30-55) 10/22/23 17:33 RDW 19.8 % (12.1-15.1) H 10/22/23 17:33 Plt Count 124 10^3/cmm (157-399) L 10/22/23 17:33 MPV 10.5 fL (7.4-10.4) H 10/22/23 17:33 Neut % (Auto) 79.9 % 10/22/23 17:33 Lymph % (Auto) 11.5 % 10/22/23 17:33 [place] % (Auto) 6.8 % 10/22/23 17:33 Eos % (Auto) 0.6 % 10/22/23 17:33 Baso % (Auto) 0.8 % 10/22/23 17:33 Neut # (Auto) 4.02 10^3/uL (1.8-7.7) 10/22/23 17:33 Lymph # (Auto) 0.6 10^3/uL (0.8-4.8) L 10/22/23 17:33 [place] # (Auto) 0.3 10^3/uL (0.2-0.9) 10/22/23 17:33 Eos # (Auto) 0.0 10^3/uL (0.0-0.8) 10/22/23 17:33 Baso # (Auto) 0.0 10^3/uL (0.0-0.1) 10/22/23 17:33 Nucleated RBC % (auto) 0 % 10/22/23 17:33 Nucleated RBCs # 0.0 /100WBC 10/22/23 17:33 PT 15.60 SECONDS (12.1-14.9) H 10/22/23 17:33 INR 1.20 (0.8-1.2) 10/22/23 17:33 APTT 38.2 SECONDS (23.9-36.7) H 10/22/23 17:33 Sodium 134 mmol/L (136-145) L 10/22/23 17:33 Potassium 4.4 mmol/L (3.5-5.1) 10/22/23 17:33 Chloride 95 mmol/L (98-107) L 10/22/23 17:33 Carbon Dioxide 26 mmol/L (22-29) 10/22/23 17:33 Anion Gap 17.4 (5-19) 10/22/23 17:33 BUN 20 mg/dL (8-23) 10/22/23 17:33 Creatinine 3.4 mg/dL (0.7-1.2) H 10/22/23 17:33 GFR Calculation 18.5 mL/min (90-130) L 10/22/23 17:33 Glucose 120 mg/dL (65-115) H 10/22/23 17:33 Calculated Osmolality 282 mOsm/kg (285-295) L 10/22/23 17:33 Calcium 8.8 mg/dL (8.5-10.5) 10/22/23 17:33 Total Bilirubin 1.3 mg/dL (0.15-1.2) H 10/22/23 17:33 AST 30 U/L (0-40) 10/22/23 17:33 ALT 6 U/L (0-41) 10/22/23 17:33 Alkaline Phosphatase 340 U/L (40-130) H 10/22/23 17:33 Total Protein 6.2 g/dL (6.6-8.7) L 10/22/23 17:33 Albumin 3.7 g/dL (3.5-5.2) 10/22/23 17:33 Globulin 2.5 g/dL (1.3-4.6) 10/22/23 17:33 Blood Type O Positive 10/22/23 17:33 Rho(D) Type Rh positive 10/22/23 17:33 Antibody Screen Negative 10/22/23 17:33 Crossmatch See Detail 10/22/23 17:33 All radiology interpretation(s) finalized by discharge Discharge Plan Discharge Patient Disposition: Admitted As Inpatient Admit Provider: Patito Michael Clinical Impression: Acute lower gastrointestinal bleeding, Balanoposthitis, End stage renal disease on dialysis Condition: Stable Discharge Diet: As Directed and Cardiac Discharge Activity: Increase activity as tolerated Coding Level of Care Code ED [employer] Aide for Lillian Anne
--- NOTE | 2023-10-22 17:18 | CTR_ITS ---
PROCEDURE INFORMATION: Exam: CT Abdomen And Pelvis With Contrast Exam date and time: 10/22/2023 7:54 PM Age: 63 years old Clinical indication: Abdominal pain; Localized; Prior surgery; Surgery date: 6+ months; Surgery type: Avr; Patient HX: C/O lower abd pain with gi bleed. Known upper ventral hernia. History of esrd. ; Additional info: Gi bleed lower TECHNIQUE: Imaging protocol: Computed tomography of the abdomen and pelvis with contrast. Radiation optimization: All CT scans at this facility use at least one of these dose optimization techniques: automated exposure control; mA and/or kV adjustment per patient size (includes targeted exams where dose is matched to clinical indication); or iterative reconstruction. Contrast material: OMNI 350; Contrast volume: 100 ml; Contrast route: INTRAVENOUS (IV); COMPARISON: CT abdomen pelvis w con* [id number] 10/11/2023 6:01 PM RADIATION DOSE METRICS: Total DLP (mGy-cm): 1825.56 FINDINGS: Lungs: Mild bibasilar atelectasis. Pleural spaces: Trace right pleural effusion. Heart: Cardiomegaly. Mitral valve hardware. Coronary arteries: Coronary artery calcifications. Liver: Hepatic steatosis. Gallbladder and biliary ducts: Normal. No calcified stones. No ductal dilation. Pancreas: Fatty atrophy of the pancreas. No ductal dilation. Spleen: Normal. No splenomegaly. Adrenal glands: Normal. No mass. Kidneys and ureters: Cortical atrophy of the bilateral kidneys. Small bilateral simple renal cysts, no follow-up needed. Unchanged small calcified cyst within the upper pole of the right kidney, stable compared to prior CT scan February 09, 2023. Stomach and bowel: Diverticulosis without evidence of diverticulitis. Improving wall thickening of the distal rectum. Subxiphoid hernia contains a nondilated loop of transverse colon. There has a smaller inferiorly adjacent ventral wall hernia containing partial loop of transverse colon. No evidence of obstruction. Appendix: No evidence of appendicitis. Intraperitoneal space: Increasing small amount of free fluid within the pelvis. Vasculature: Severe diffuse atherosclerotic calcifications. Lymph nodes: Prominent biinguinal lymph nodes which may be reactive in etiology. Urinary bladder: Underdistended and not well assessed. Reproductive: Prostatic calcifications. Bones/joints: Median sternotomy wires. Moderate multilevel spondylosis. Soft tissues: Diffuse anasarca. Subxiphoid hernia contains a nondilated loop of transverse colon. There has a smaller inferiorly adjacent ventral wall hernia containing partial loop of transverse colon. CT/CT abdomen pelvis w con* [id number] IMPRESSION: 1. Subxiphoid hernia contains a nondilated loop of transverse colon. No evidence of obstruction. No pneumoperitoneum. 2. Increasing small volume ascites. 3. Improving circumferential wall thickening of the rectum. 4. Diverticulosis without evidence of diverticulitis. 5. Diffuse anasarca. 6. Severe diffuse atherosclerotic calcifications including coronary artery calcifications. COMMENTS: Consistent with the [employer]'s Incidental Findings Committee white paper (J Am Yony Radiol 2018): Any incidental renal lesion less than 1 cm or classified as too small to characterize, or any incidental cystic renal lesion characterized as simple-appearing, is likely benign. No follow-up imaging is recommended for these lesions per consensus recommendations based on imaging criteria.
[2023-10-22 17:47] LABS: Basophils % 0.8 %; Eosinophils % 0.6 %; Hematocrit 26.7 % (37-53); Lymphocytes # 0.6 10^3/uL (0.8-4.8); Lymphocytes % 11.5 %; Mean Corpuscular HGB Conc 30.3 g/dL (30-55); Mean Corpuscular Hemoglobin 31.2 pg (27-33); Mean Corpuscular Volume 102.7 fl (82-101); Mean Platelet Volume 10.5 fL (7.4-10.4); Monocytes # 0.3 10^3/uL (0.2-0.9); Monocytes % 6.8 %; Neutrophils # 4.02 10^3/uL (1.8-7.7); Neutrophils % 79.9 %; Nucleated Red Blood Cells % 0 %; Platelet Count 124 10^3/cmm (157-399); Red Cell Distribution Width 19.8 % (12.1-15.1); White Blood Count 5.03 10^3/uL (3.29-11.43)
[2023-10-22 17:57] LABS: Partial Thromboplastin Time 38.2 SECONDS (23.9-36.7)
[2023-10-22 18:01] LABS: Alanine Aminotransferase 6 U/L (0-41); Albumin Level 3.7 g/dL (3.5-5.2); Alkaline Phosphatase 340 U/L (40-130); Blood Urea Nitrogen 20 mg/dL (8-23); Calcium 8.8 mg/dL (8.5-10.5); Carbon Dioxide 26 mmol/L (22-29); Chloride 95 mmol/L (98-107); Globulin 2.5 g/dL (1.3-4.6); Glomerular Filtration Rate 18.5 mL/min (90-130); Glucose 120 mg/dL (65-115); Osmolality Calculated 282 mOsm/kg (285-295); Sodium 134 mmol/L (136-145); Total Bilirubin 1.3 mg/dL (0.15-1.2); Total Protein 6.2 g/dL (6.6-8.7)
[2023-10-22 18:04] LABS: Anion Gap 17.4 (5-19); Aspartate Amino Transferase 30 U/L (0-40); Potassium 4.4 mmol/L (3.5-5.1)
--- NOTE | 2023-10-22 18:59 | P.HP_ITS ---
Providers/Chief Complaint 2 Admitting Physician: Patito Michael MD Primary Care Provider: Sulma Zavala MD Chief Complaint: blood in stool History of Present Illness Richard Huffman is a 63 year old male antolin Huffman is a 63 year old male with a past medical history of CHF, history of end-stage renal disease on dialysis, type 2 diabetes mellitus, atrial fibrillation, decreased urinary output, hematuria, who was discharged recently after management of volume overload, diastolic CHF exacerbation, non-STEMI and balanitis presenting with chief complaint of lower GI bleed. Patient is stating that his dialysis was stopped today because he started having bright bleed per rectum, he also noticed dark-colored stools on and off in last few days as well, patient is not a candidate of anticoagulation despite history of A-fib because of history of chronic anemia, he is a resident of a group home In the ER his hemoglobin is stable hemodynamically stable, he will need dialysis, nephro consulted Currently on 2 L Review of Systems 2 Const: Denies: fever(s) Eyes: Denies: change in vision ENMT: Denies: throat pain Card: Denies: chest pain Resp: Reports: dyspnea GI: Denies: abdominal pain : Denies: flank pain Medications/Allergies Home Medications Medication Instructions Recorded Confirmed Last Taken Type oxycodone-acetaminophen 5 mg-325 0.5 - 1 tab PO Q4H PRN Pain 07/15/22 10/12/23 10/09/23 History mg tablet cyanocobalamin (vitamin B-12) 1,000 mcg PO DAILY 08/25/22 10/12/23 10/11/23 History 1,000 mcg tablet (Vitamin B-12) tramadol 50 mg tablet 50 mg PO Q6H PRN Pain, Mild 12/29/22 10/12/23 10/07/23 History Cruthes #1 ea 05/11/23 10/12/23 Unknown Rx vit B,C-folic ac 800 mcg-zinc 12.5 1 tab PO BEDTIME 05/15/23 10/12/23 10/10/23 History mg-selen-D3 2,000 unit-vit E tablet (RenaPlex-D) albuterol sulfate 90 mcg/actuation 1 inh inhalation QID PRN shortness 06/01/23 10/12/23 Unknown Rx aerosol inhaler (Ventolin HFA) of breath or wheezing #8.5 grams budesonide 0.5 mg/2 mL suspension 0.5 mg (2 mL) inhalation BID #60 mL 06/01/23 10/12/23 10/11/23 Rx for nebulization budesonide-formoterol HFA 80 2 puff inhalation BID PRN unknown 06/01/23 10/12/23 Unknown Rx mcg-4.5 mcg/actuation aerosol #10.2 grams inhaler (Symbicort) escitalopram oxalate 10 mg tablet 10 mg PO QAM #90 tabs 06/01/23 10/12/23 10/11/23 Rx (Lexapro) fluticasone propionate 50 2 spray intranasal DAILY PRN 06/01/23 10/12/23 Unknown Rx mcg/actuation nasal Allergy Symptoms #16 grams spray,suspension ipratropium 0.5 mg-albuterol 3 mg 3 ml inhalation Q6H Shortness Of 06/01/23 10/12/23 08/16/23 Rx (2.5 mg base)/3 mL nebulization Breath #180 mL soln nitroglycerin 2.5 mg 2.5 mg PO DAILY PRN chest 06/01/23 10/12/23 08/27/23 Rx capsule,extended release tightness #30 caps ropinirole 2 mg tablet 2 mg PO BEDTIME #90 tabs 06/01/23 10/12/23 10/10/23 Rx Diabetic shoes #1 ea 06/04/23 10/12/23 Unknown Rx four point rollaid with chair #1 ea 06/04/23 10/12/23 Unknown Rx nebulizer #1 ea 06/04/23 10/12/23 Unknown Rx nebulizer supplies (hose, mask,ect) #1 ea 06/04/23 10/12/23 Unknown Rx oxygen concentrator #1 ea 06/04/23 10/12/23 Unknown Rx shower chair #1 ea 06/04/23 10/12/23 Unknown Rx toiler riser with handles #1 ea 06/04/23 10/12/23 Unknown Rx [place] #1 ea 06/17/23 10/12/23 Unknown Rx acetaminophen 325 mg tablet 650 mg PO Q6H PRN PAIN OR 08/16/23 10/12/23 10/07/23 History INCREASED TEMP ondansetron HCl 8 mg tablet 8 mg PO Q6H PRN Nausea 08/16/23 10/12/23 09/09/23 History pantoprazole 40 mg tablet,delayed 40 mg PO Q12H 30 days #60 tabs 09/02/23 10/12/23 10/11/23 Rx release bisacodyl 5 mg tablet 10 mg PO DAILY PRN Constipation 10/12/23 10/12/23 10/09/23 History lanthanum 500 mg chewable tablet 500 mg PO TID 10/12/23 10/12/23 10/11/23 History (Fosrenol) sucralfate 1 gram tablet 1 g PO Q12H 10/12/23 10/12/23 Unknown History tamsulosin 0.4 mg capsule (Flomax) 0.4 mg PO BEDTIME 10/12/23 10/12/23 10/10/23 History amiodarone 200 mg tablet (Pacerone) 200 mg PO BEDTIME 30 days #30 tabs 10/20/23 Unknown Rx aspirin 81 mg tablet,delayed 81 mg PO DAILY 30 days #30 tabs 10/20/23 Unknown Rx release atorvastatin 40 mg tablet 40 mg PO BEDTIME 30 days #30 tabs 10/20/23 Unknown Rx carbidopa 10 mg-levodopa 100 mg 1 tab PO TID 30 days #90 tabs 10/20/23 Unknown Rx tablet (Sinemet) collagenase clostridium histo. 250 1 applic topical DAILY #30 grams 10/20/23 Unknown Rx unit/gram topical ointment (Santyl) metronidazole 1 %-mupirocin 2 % 1 ea topical BID 2 weeks #30 mL 10/20/23 Unknown Rx topical ointment miconazole nitrate 2 % topical 1 applic topical BID #30 grams 10/20/23 Unknown Rx cream (Antifungal (miconazole)) midodrine 5 mg tablet 10 mg (2 x 5 mg) PO TID 30 days 10/20/23 Unknown Rx #180 tabs Allergies Allergy/AdvReac Type Severity Reaction Status Date / Time latex Allergy Mild Blisters Verified 10/11/23 15:25 petrolatum,white Allergy Mild Blisters Verified 10/11/23 15:25 [From A and D Barrier] amlodipine Allergy Unknown Verified 10/11/23 15:25 PFSH Acute 2 PFSH: Medical History ESRD (end stage renal disease) Acute exacerbation of congestive heart failure Bradycardia Hyperkalemia ESRD (end stage renal disease) on dialysis Acute hyperkalemia NSTEMI (non-ST elevated myocardial infarction) Chest pain Atrial fibrillation Moderate to severe mitral regurgitation Chronic pain Chronic GI bleeding Hiatal hernia High risk medication use Chronic anemia COPD (chronic obstructive pulmonary disease) Severe tobacco use disorder ESRD on hemodialysis History of renal dialysis Chronic kidney disease 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 Intermittent palpitations Hyperlipidemia Hypertension XI (obstructive sleep apnea) DJD (degenerative joint disease) Atrial flutter PVD (peripheral vascular disease) Diabetes Surgical History 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 H/O aortic valve replacement with tissue graft H/O aortic valve replacement H/O foot surgery Family History Grandmother Diabetes Grandfather Diabetes Denies family history of CAD (coronary artery disease) Clotting disorder Dementia Chronic kidney disease (CKD) Suicide Anesthesia complication Bleeding disorder Lung disease Cancer Stroke Social History Smoking and tobacco/nicotine status: former use of tobacco/nicotine Alcohol intake: never Substance/Drug Use: never Lives independently: Yes (with girlfriend) Household members: significant other Marital status: Single service: No 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al status: disabled 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 Pets and animals: Yes Special araceli needs: No Agree to transfusion: Yes Vitals/I&O/Wt Last Vital Signs Temp 98.1 F 10/22/23 17:12 Pulse 105 H 10/22/23 18:45 Resp 15 10/22/23 18:45 BP 102/62 10/22/23 17:15 Pulse Ox 98 10/22/23 18:45 O2 Del Method Nasal Cannula 10/22/23 17:12 O2 Flow Rate 2 10/22/23 17:12 Physical Exam 2 Narrative: Appearance of anasarca Hemodynamically stable Currently on 2 L Nontender distended abdomen S1, S2 tachycardia Pleasant 15 lethargic Able to answer simple questions GCS 15 No new focal deficit Data 10/22/23 17:33 10/22/23 17:33 A&P Assessment and plan (1) Tachy-mariposa syndrome: (2) Acute lower GI bleeding: (3) Hematochezia: (4) End stage renal disease on dialysis: (5) Balanoposthitis: (6) Anemia: (7) Diabetic peripheral neuropathy associated with type 2 diabetes mellitus: (8) Restless leg syndrome: (9) XI (obstructive sleep apnea): Plan Acute on chronic macrocytic anemia Patient had received B12 supplementation Acute GI bleed hematochezia, has history of diverticulosis I do suspect diverticular bleed Patient is afebrile no leukocytosis, I will not add gram-negative coverage for now I will observe and admit him in the hospital for now No need of urgent EGD or colonoscopy Patient not a candidate for anticoagulation secondary to history of chronic anemia A-fib without RVR Not a candidate anticoagulation secondary to anemia Continue AV eric blocking agent End-stage renal disease Could not finish dialysis today Consulted nephro Patient got contrast study as well Balanitis: Patient was asked to follow-up with urology I would continue antifungal treatment Chronic hypotension patient requires midodrine as well Full code Renal diet Back pain: Lumbar spine showed degenerative joint disease No acute fracture If hemoglobin stays stable patient likely will go back to nursing facility over the weekend, no need of blood transfusion at this point Attestations 2 Medical Necessity Statement*: Anticipating discharge within 48 hours Diagnoses Tachy-mariposa syndrome I49.5 Acute lower GI bleeding K92.2 Hematochezia K92.1 End stage renal disease on dialysis N18.6; Z99.2 Balanoposthitis N47.6 Anemia D64.9 Diabetic peripheral neuropathy associated with type 2 diabetes mellitus E11.42 Restless leg syndrome G25.81 XI (obstructive sleep apnea) G47.33
[2023-10-22] MEDS: iohexol 350 mg/mL 500 mL Btl (per mL) IV (19:57)
[2023-10-22] MEDS: amiodarone 200 mg Tablet PO (22:20)
[2023-10-22] MEDS: midodrine 5 mg TABLET 10 MG PO (22:20)
[2023-10-22] MEDS: sucralfate 1 gm Tablet PO (22:20)
[2023-10-22] MEDS: tamsulosin 0.4 mg Capsule PO (22:20)
[2023-10-22] MEDS: ropinirole 2 mg Tablet PO (22:20)
[2023-10-23] VITALS (13 sets, daily range): BP systolic 97–113; BP diastolic 60–74; PULSE 102–109; RESP 16–20; TEMP 35.9–37.2; O2SAT 92–100
[2023-10-23 05:14] LABS: Basophils # 0.1 10^3/uL (0.0-0.1); Basophils % 1.3 %; Eosinophils % 0.6 %; Hematocrit 25.5 % (37-53); Lymphocytes # 0.7 10^3/uL (0.8-4.8); Lymphocytes % 15.5 %; Mean Corpuscular Hemoglobin 31.7 pg (27-33); Mean Corpuscular Volume 102.4 fl (82-101); Mean Platelet Volume 10.8 fL (7.4-10.4); Monocytes # 0.6 10^3/uL (0.2-0.9); Monocytes % 13.1 %; Neutrophils # 3.22 10^3/uL (1.8-7.7); Neutrophils % 69.1 %; Nucleated Red Blood Cells % 0 %; Platelet Count 110 10^3/cmm (157-399); Red Blood Count 2.49 10^6/uL (3.85-5.65); Red Cell Distribution Width 19.9 % (12.1-15.1); White Blood Count 4.66 10^3/uL (3.29-11.43)
[2023-10-23 05:34] LABS: Anion Gap 15.5 (5-19); Blood Urea Nitrogen 25 mg/dL (8-23); Carbon Dioxide 27 mmol/L (22-29); Chloride 97 mmol/L (98-107); Creatinine Clr Calc Pharmacy 25.5023; Glomerular Filtration Rate 15.8 mL/min (90-130); Glucose 111 mg/dL (65-115); Magnesium 2.1 mg/dL (1.7-2.3); Osmolality Calculated 285 mOsm/kg (285-295); Potassium 4.5 mmol/L (3.5-5.1); Sodium 135 mmol/L (136-145)
--- NOTE | 2023-10-23 07:37 | P.PN_ITS ---
Subjective 2 Subjective: No signs of hematochezia overnight However he is FOBT positive Hemoglobin 7.9 will request 1 unit PRBC, patient is due for dialysis today Spoke with Dr. Юлия Wagner who is planning for EGD later in the day versus tomorrow morning Patient is n.p.o. until evaluated by general surgery Charge nurse notified Currently on Protonix and sucralfate Vitals/I&O/Wt Last Vital Signs Temp 98.9 F 10/23/23 04:00 Pulse 107 H 10/23/23 04:00 Resp 18 10/23/23 04:00 BP 104/70 10/23/23 04:00 Pulse Ox 99 10/23/23 04:00 O2 Del Method Nasal Cannula 10/23/23 04:00 O2 Flow Rate 2 10/23/23 04:00 Weight last 48 hrs Weight 120.656 kg Weight 120.565 kg Physical Exam 2 Narrative: Tachybradycardia syndrome A-fib RVR Signs of fluid overload present Edema of legs noted Venous stasis dermatitis Patient is awake and alert Epigastric hernia No abdominal tenderness Nonfocal neuroexam Multiple bruises of his hands noted bilaterally No sign of vascular ischemia Data 10/23/23 04:04 10/23/23 04:04 Micro: Microbiology 10/22/23 22:00 Occult Blood (FIT) - Final Stool Routine Collection A&P Assessment and plan (1) Upper GI bleed: (2) Tachy-mariposa syndrome: (3) Hematochezia: (4) Acute lower GI bleeding: (5) End stage renal disease on dialysis: (6) Balanoposthitis: (7) XI (obstructive sleep apnea): Plan Patient has been experiencing hematochezia and upper GI bleed Positive FOBT Hemoglobin drifting down Will give 1 unit PRBC Requested general surgery consultation for an EGD CT scan of abdomen pelvis showed diverticulosis, I do believe patient has combination of upper GI bleed with diverticular bleed A-fib tachybradycardia syndrome not a candidate of anticoagulation Continue amiodarone End-stage renal disease Plan for dialysis today he was not able to complete full session of dialysis on 10/21 N.p.o. for now until evaluated by general surgery Continue Protonix and sucralfate Restless leg Continue Sinemet Chronic hypotension I would use midodrine Full code Will get renal dialysis diet once evaluated by general surgery Charge nurse notified Disposition: Likely back to correction on Wednesday after EGD Attestations 2 Medical Necessity Statement*: Plan to discharge likely on Wednesday after EGD Diagnoses Upper GI bleed K92.2 Tachy-mariposa syndrome I49.5 Hematochezia K92.1 Acute lower GI bleeding K92.2 End stage renal disease on dialysis N18.6; Z99.2 Balanoposthitis N47.6 XI (obstructive sleep apnea) G47.33
[2023-10-23] MEDS: midodrine 5 mg TABLET 10 MG PO ×3 (07:55→20:30)
[2023-10-23] MEDS: sucralfate 1 gm Tablet PO ×2 (07:55→20:31)
[2023-10-23] MEDS: pantoprazole 40 mg SDV IVP ×2 (07:55→17:11)
--- NOTE | 2023-10-23 09:22 | P.PN_ITS ---
Subjective 2 Subjective: Patient is well-known to my service he left in October 20, 2023. He presented once again with a chief complaint of GI bleed is having bright red blood per rectum and dark-colored stools over the last few days renal was called to provide dialysis so that he can get a unit of blood. Medications: Reviewed: Yes Medication Review Details: Current Medications Acetaminophen (Acetaminophen 500 Mg Tablet) 500 mg PO Q4H PRN PRN Reason: fever Albuterol/Ipratropium (Ipratropium-Albuterol 3 Ml Neb) 3 ml INHALATION Q6H PRN PRN Reason: SHORTNESS OF BREATH Amiodarone HCl (Amiodarone 200 Mg Tablet) 200 mg PO BEDTIME [facility] Last Admin: 10/22/23 22:20 Dose: 200 mg Carbidopa/Levodopa (Carbidopa-Levodopa 10-100 Mg Tablet) 1 each PO TID [facility] Last Admin: 10/23/23 07:55 Dose: 1 each Miconazole Nitrate (Miconazole 2% Topical Cream 28 Gm) 1 applic TOPICAL BID [facility] Midodrine (Midodrine 5 Mg Tablet) 10 mg PO TID [facility] Last Admin: 10/23/23 07:55 Dose: 10 mg Non-Formulary Medication (Metronidazole-Mupirocin) 1 each TOPICAL BID [facility] Non-Formulary Medication (Lanthanum [Fosrenol]) 500 mg PO TID [facility] Ondansetron HCl (Ondansetron 2 Mg/Ml Sdv 2 Ml) 4 mg IVP Q6H PRN PRN Reason: NAUSEA AND VOMITING Oxycodone/Acetaminophen (Oxycodone-Apap 5-325 Mg Tablet) 1 tab PO Q4H PRN PRN Reason: Pain Pantoprazole Sodium (Pantoprazole 40 Mg Sdv) 40 mg IVP BID [facility] Last Admin: 10/23/23 07:55 Dose: 40 mg Ropinirole HCl (Ropinirole 2 Mg Tablet) 2 mg PO BEDTIME [facility] Last Admin: 10/22/23 22:20 Dose: 2 mg Sodium Chloride (Sodium Chloride 0.9% 100 Ml Bag) 50 ml IV PRN PRN PRN Reason: Blood transfusion prime and flush Stop: 10/24/23 07:25 Sucralfate (Sucralfate 1 Gm Tablet) 1 gm PO Q12H [facility] Last Admin: 10/23/23 07:55 Dose: 1 gm Tamsulosin HCl (Tamsulosin 0.4 Mg Capsule) 0.4 mg PO BEDTIME [facility] Last Admin: 10/22/23 22:20 Dose: 0.4 mg Vitals/I&O/Wt Last Vital Signs Temp 98.2 F 10/23/23 07:40 Pulse 106 H 10/23/23 07:40 Resp 16 10/23/23 07:40 BP 97/61 10/23/23 07:40 Pulse Ox 100 10/23/23 07:40 O2 Del Method Nasal Cannula 10/23/23 07:40 O2 Flow Rate 2 10/23/23 04:00 Weight last 48 hrs Weight 120.656 kg Weight 120.565 kg Physical Exam 2 Const: OTHER: Patient's blood pressure is on the low side. He is comfortable using nasal cannula 2 L. HEENT normocephalic atraumatic neck is supple. Lungs dull bases heart irregular positive S1-S2 Abdomen soft positive bowel sounds. Extremities bilateral edema. Neuro awake alert oriented x 3 Data 10/23/23 04:04 10/23/23 04:04 Micro: Microbiology 10/22/23 22:00 Occult Blood (FIT) - Final Stool Routine Collection A&P Assessment and plan (1) End stage renal disease on dialysis: 63-year-old gentleman ESRD A-fib without RVR, Balinitis, chronic hypertension patient mated with GI bleed with hematochezia. Patient is being treated with Protonix and sucralfate. Patient is for endoscopy. 1. ESRD will dialyze today and get 1 unit of blood. Hemoglobin was 8.4 on discharge is now 7.9 not major difference. Platelets remain low at 110 Electrolytes otherwise stable. The patient was seen and examined with the nurse using A/V equipment and a telehealth visit. The patient consents to telehealth and to hemodialysis. Plan as above, EGD, HD and tx 1 u blood Attestations 2 Medical Necessity Statement*: For blood transfusion, EGD and dialysis Time Spent in Patient Care: 16 - 35 minutes (>than 50% of time sp ent in counselling and/or direct pt care on unit) . Coding Level of Care Code Acute Code for Chg Fwd Diagnoses End stage renal disease on dialysis N18.6; Z99.2
[2023-10-23] MEDS: miconazole 2% topical cream 28 gm 1 APPLIC TOPICAL ×2 (09:29→17:11)
--- NOTE | 2023-10-23 09:47 | P.CONIM_ITS ---
Providers/Reason For Consult 2 Consulting Physician/Specialty*: General surgery Reason for Consult*: Possible GI bleeding Attending Physician: Patito Michael MD Primary Care Provider: Sulma Zavala MD History of Present Illness History of Present Illness Richard Huffman is a 63 year old male was admitted to the hospital with a possible GI bleeding. Patient has history of end-stage renal disease on dialysis, has had episode of GI bleeding in the past, last time he had an episode he had an upper and lower endoscopy, lower endoscopy was unsuccessful as patient has a very large hernia and we were unable to transverse the colon at that level. Patient currently complains of some dark stools and also some occasional red blood per rectum. His hemoglobin has been trending down. Hemoccult has been positive. Review of Systems 2 General: Reports: 10 or more systems reviewed and unremarkable except in HPI and below Medications/Allergies Home Medications Medication Instructions Recorded Confirmed Last Taken Type oxycodone-acetaminophen 5 mg-325 0.5 - 1 tab PO Q4H PRN Pain 07/15/22 10/12/23 10/09/23 History mg tablet cyanocobalamin (vitamin B-12) 1,000 mcg PO DAILY 08/25/22 10/12/23 10/11/23 History 1,000 mcg tablet (Vitamin B-12) tramadol 50 mg tablet 50 mg PO Q6H PRN Pain, Mild 12/29/22 10/12/23 10/07/23 History Cruthes #1 ea 05/11/23 10/12/23 Unknown Rx vit B,C-folic ac 800 mcg-zinc 12.5 1 tab PO BEDTIME 05/15/23 10/12/23 10/10/23 History mg-selen-D3 2,000 unit-vit E tablet (RenaPlex-D) albuterol sulfate 90 mcg/actuation 1 inh inhalation QID PRN shortness 06/01/23 10/12/23 Unknown Rx aerosol inhaler (Ventolin HFA) of breath or wheezing #8.5 grams budesonide 0.5 mg/2 mL suspension 0.5 mg (2 mL) inhalation BID #60 mL 06/01/23 10/12/23 10/11/23 Rx for nebulization budesonide-formoterol HFA 80 2 puff inhalation BID PRN unknown 06/01/23 10/12/23 Unknown Rx mcg-4.5 mcg/actuation aerosol #10.2 grams inhaler (Symbicort) escitalopram oxalate 10 mg tablet 10 mg PO QAM #90 tabs 06/01/23 10/12/23 10/11/23 Rx (Lexapro) fluticasone propionate 50 2 spray intranasal DAILY PRN 06/01/23 10/12/23 Unknown Rx mcg/actuation nasal Allergy Symptoms #16 grams spray,suspension ipratropium 0.5 mg-albuterol 3 mg 3 ml inhalation Q6H Shortness Of 06/01/23 10/12/23 08/16/23 Rx (2.5 mg base)/3 mL nebulization Breath #180 mL soln nitroglycerin 2.5 mg 2.5 mg PO DAILY PRN chest 06/01/23 10/12/23 08/27/23 Rx capsule,extended release tightness #30 caps ropinirole 2 mg tablet 2 mg PO BEDTIME #90 tabs 06/01/23 10/12/23 10/10/23 Rx Diabetic shoes #1 ea 06/04/23 10/12/23 Unknown Rx four point rollaid with chair #1 ea 06/04/23 10/12/23 Unknown Rx nebulizer #1 ea 06/04/23 10/12/23 Unknown Rx nebulizer supplies (hose, mask,ect) #1 ea 06/04/23 10/12/23 Unknown Rx oxygen concentrator #1 ea 06/04/23 10/12/23 Unknown Rx shower chair #1 ea 06/04/23 10/12/23 Unknown Rx toiler riser with handles #1 ea 06/04/23 10/12/23 Unknown Rx [place] #1 ea 06/17/23 10/12/23 Unknown Rx acetaminophen 325 mg tablet 650 mg PO Q6H PRN PAIN OR 08/16/23 10/12/23 10/07/23 History INCREASED TEMP ondansetron HCl 8 mg tablet 8 mg PO Q6H PRN Nausea 08/16/23 10/12/23 09/09/23 History pantoprazole 40 mg tablet,delayed 40 mg PO Q12H 30 days #60 tabs 09/02/23 10/12/23 10/11/23 Rx release bisacodyl 5 mg tablet 10 mg PO DAILY PRN Constipation 10/12/23 10/12/23 10/09/23 History lanthanum 500 mg chewable tablet 500 mg PO TID 10/12/23 10/12/23 10/11/23 History (Fosrenol) sucralfate 1 gram tablet 1 g PO Q12H 10/12/23 10/12/23 Unknown History tamsulosin 0.4 mg capsule (Flomax) 0.4 mg PO BEDTIME 10/12/23 10/12/23 10/10/23 History amiodarone 200 mg tablet (Pacerone) 200 mg PO BEDTIME 30 days #30 tabs 10/20/23 Unknown Rx aspirin 81 mg tablet,delayed 81 mg PO DAILY 30 days #30 tabs 10/20/23 Unknown Rx release atorvastatin 40 mg tablet 40 mg PO BEDTIME 30 days #30 tabs 10/20/23 Unknown Rx carbidopa 10 mg-levodopa 100 mg 1 tab PO TID 30 days #90 tabs 10/20/23 Unknown Rx tablet (Sinemet) collagenase clostridium histo. 250 1 applic topical DAILY #30 grams 10/20/23 Unknown Rx unit/gram topical ointment (Santyl) metronidazole 1 %-mupirocin 2 % 1 ea topical BID 2 weeks #30 mL 10/20/23 Unknown Rx topical ointment miconazole nitrate 2 % topical 1 applic topical BID #30 grams 10/20/23 Unknown Rx cream (Antifungal (miconazole)) midodrine 5 mg tablet 10 mg (2 x 5 mg) PO TID 30 days 10/20/23 Unknown Rx #180 tabs Allergies Allergy/AdvReac Type Severity Reaction Status Date / Time latex Allergy Mild Blisters Verified 10/11/23 15:25 petrolatum,white Allergy Mild Blisters Verified 10/11/23 15:25 [From A and D Barrier] amlodipine Allergy Unknown Verified 10/11/23 15:25 Current Medications Generic Name Dose Route Start Last Admin Trade Name Srikanth PRN Reason Stop Dose Admin Amiodarone HCl 200 mg 10/22/23 21:32 10/22/23 22:20 Amiodarone 200 Mg Tablet PO 200 mg BEDTIME [facility] Administration Carbidopa/Levodopa 1 each 10/22/23 21:32 10/23/23 07:55 Carbidopa-Levodopa 10-100 Mg Tablet PO 1 each TID [facility] Administration Miconazole Nitrate 1 applic 08/10/24 09:00 10/23/23 09:29 Miconazole 2% Topical Cream 28 Gm TOPICAL 1 applic BID [facility] Administration Midodrine 10 mg 10/22/23 21:32 10/23/23 07:55 Midodrine 5 Mg Tablet PO 10 mg TID [facility] Administration Pantoprazole Sodium 40 mg 10/23/23 09:00 10/23/23 07:55 Pantoprazole 40 Mg Sdv IVP 40 mg BID [facility] Administration Ropinirole HCl 2 mg 10/22/23 21:32 10/22/23 22:20 Ropinirole 2 Mg Tablet PO 2 mg BEDTIME [facility] Administration Sucralfate 1 gm 10/22/23 21:32 10/23/23 07:55 Sucralfate 1 Gm Tablet PO 1 gm Q12H [facility] Administration Tamsulosin HCl 0.4 mg 10/22/23 21:32 10/22/23 22:20 Tamsulosin 0.4 Mg Capsule PO 0.4 mg BEDTIME [facility] Administration PFSH Acute 2 PFSH: Medical History ESRD (end stage renal disease) Acute exacerbation of congestive heart failure Bradycardia Hyperkalemia ESRD (end stage renal disease) on dialysis Acute hyperkalemia NSTEMI (non-ST elevated myocardial infarction) Chest pain Atrial fibrillation Moderate to severe mitral regurgitation Chronic pain Chronic GI bleeding Hiatal hernia High risk medication use Chronic anemia COPD (chronic obstructive pulmonary disease) Severe tobacco use disorder ESRD on hemodialysis History of renal dialysis Chronic kidney disease 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 Intermittent palpitations Hyperlipidemia Hypertension XI (obstructive sleep apnea) DJD (degenerative joint disease) Atrial flutter PVD (peripheral vascular disease) Diabetes Surgical History 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 H/O aortic valve replacement with tissue graft H/O aortic valve replacement H/O foot surgery Family History Grandmother Diabetes Grandfather Diabetes Denies family history of CAD (coronary artery disease) Clotting disorder Dementia Chronic kidney disease (CKD) Suicide Anesthesia complication Bleeding disorder Lung disease Cancer Stroke Social History Smoking and tobacco/nicotine status: former use of tobacco/nicotine Alcohol intake: never Substance/Drug Use: never Lives independently: Yes (with girlfriend) Household members: significant other Marital status: Single service: No 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al status: disabled 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 Data 10/23/23 04:04 10/23/23 04:04 Micro: Microbiology 10/22/23 22:00 Occult Blood (FIT) - Final Stool Routine Collection A&P Assessment and plan (1) Hematochezia: (2) Acute lower GI bleeding: (3) Upper GI bleed: Plan After complete history physical examination and review of all available clinical data the following is my assessment. Patient appears to have a new episode of GI bleeding, lower GI bleeding may be caused by some diverticular bleeding that likely will be self-limited, regarding a positive Hemoccult there is a possibility of upper GI bleeding I think it will be appropriate to further investigate this with an EGD. I do not plan to offer colonoscopy at this patient at the moment as he already had 1 colonoscopy in our institution and was unable to pass the transverse colon due to his ladders hernia, if after upper endoscopy patient continues to bleed and the hemoglobin continues to trend down he might require transfer to higher level of care for GI evaluation for a possible colonoscopy as higher level of aspirate this will be required. I have discussed with the patient all risk benefits of the EGD, including the risk of perforation, need for surgical intervention, rebleeding, injury to soft tissue of the mouth and pharynx. Patient shows understanding wishes to proceed. EGD will be done tomorrow morning as patient will be dialyzed today. -For dialysis and 1 unit of blood today -EGD 8 AM tomorrow morning -N.p.o. after midnight- -all other care by primary Coding Level of Care Code 71517 Diagnoses Hematochezia K92.1 Acute lower GI bleeding K92.2 Upper GI bleed K92.2
[2023-10-23 16:03] LABS: Hematocrit 30.6 % (37-53)
[2023-10-23] MEDS: amiodarone 200 mg Tablet PO (20:31)
[2023-10-23] MEDS: tamsulosin 0.4 mg Capsule PO (20:31)
[2023-10-23] MEDS: ropinirole 2 mg Tablet PO (20:31)
[2023-10-24] VITALS (9 sets, daily range): BP systolic 92–114; BP diastolic 50–76; PULSE 102–117; RESP 12–18; TEMP 36.4–36.8; O2SAT 93–100
[2023-10-24 04:26] LABS: Basophils # 0.1 10^3/uL (0.0-0.1); Basophils % 1.2 %; Eosinophils # 0.1 10^3/uL (0.0-0.8); Eosinophils % 1.7 %; Hematocrit 30.5 % (37-53); Lymphocytes # 0.9 10^3/uL (0.8-4.8); Lymphocytes % 21.3 %; Mean Corpuscular HGB Conc 30.2 g/dL (30-55); Mean Corpuscular Hemoglobin 30.9 pg (27-33); Mean Corpuscular Volume 102.3 fl (82-101); Mean Platelet Volume 10.8 fL (7.4-10.4); Monocytes # 0.6 10^3/uL (0.2-0.9); Monocytes % 13.6 %; Neutrophils # 2.56 10^3/uL (1.8-7.7); Nucleated Red Blood Cells % 0 %; Platelet Count 107 10^3/cmm (157-399); Red Blood Count 2.98 10^6/uL (3.85-5.65); Red Cell Distribution Width 21.2 % (12.1-15.1); White Blood Count 4.13 10^3/uL (3.29-11.43)
[2023-10-24 04:38] LABS: Alanine Aminotransferase < 5 U/L (0-41); Albumin Level 3.8 g/dL (3.5-5.2); Alkaline Phosphatase 311 U/L (40-130); Aspartate Amino Transferase 29 U/L (0-40); Blood Urea Nitrogen 22 mg/dL (8-23); Calcium 9.2 mg/dL (8.5-10.5); Carbon Dioxide 23 mmol/L (22-29); Chloride 96 mmol/L (98-107); Creatinine Clr Calc Pharmacy 29.8511; Globulin 2.8 g/dL (1.3-4.6); Glomerular Filtration Rate 19.2 mL/min (90-130); Glucose 111 mg/dL (65-115); Magnesium 2.1 mg/dL (1.7-2.3); Osmolality Calculated 284 mOsm/kg (285-295); Phosphorus 2.5 mg/dL (2.5-4.5); Sodium 135 mmol/L (136-145); Total Bilirubin 1.4 mg/dL (0.15-1.2); Total Protein 6.6 g/dL (6.6-8.7)
[2023-10-24 04:39] LABS: Anion Gap 20.2 (5-19); Potassium 4.2 mmol/L (3.5-5.1)
[2023-10-24] MEDS: sodium chloride 0.9% 1,000 ML 30 ML IV (05:31)
--- NOTE | 2023-10-24 07:27 | P.HPUD_ITS ---
Surgery/Procedure H&P Update DATE OF PROCEDURE: October 24, 2023 DATE H&P PERFORMED: 10/23/23 H&P UPDATE INFORMATION: I have reviewed H&P completed within last 30 days, I have examined patient prior to procedure, No changes to prior documentation and H&P is in [facility] E[place] on date indicated
[2023-10-24] MEDS: midodrine 5 mg TABLET 10 MG PO (07:41)
--- NOTE | 2023-10-24 08:00 | P.ANESASSM_ITS ---
Pre-Anesthetic Assessment Height/Weight: Height 1.75 m Weight 117.979 kg Temp Pulse Resp BP Pulse Ox O2 Del Method O2 Flow Rate 97.7 F 102 H 12 104/68 100 Nasal Cannula 3 10/24/23 08:36 10/24/23 08:48 10/24/23 08:48 10/24/23 08:48 10/24/23 08:48 10/24/23 08:48 10/24/23 08:48 Operation Date: 10/24/23 08:00 Proposed Procedures p EGD(Not Applicable) - Giovanni Arroyo MD Familial anesthetic complications: None Was Beta Jeanne taken within 24 hours: N/A Was Clonidine taken within 24 hours: N/A Last intake: Intake Last Liquid Date 10/23/23 Last Liquid Time 22:00 Last Solid Date 10/23/23 Last Solid Time 17:00 Social No alcohol and No tobacco Exam alert, oriented x 3, clear to auscultation bilaterally and regular rate & rhythm a fib Airway Mallampati: Class III Dentition: full Pulmonary Chronic Obstructive Pulmonary Disease and Sleep Apnea CV/HEM Atrial Fibrillation and Hypertension AVR (bioprosthetic) MVR (moderate) Chronic Renal Insufficiency Metabolic Diabetes Mellitus and Morbid Obesity Anesthetic Plan ASA status: 4 Anesthesia: MAC Risk of > 500 ml blood loss (7ml/kg in children): No Medications/Allergies Home Medications Medication Instructions Recorded Confirmed Last Taken Type oxycodone-acetaminophen 5 mg-325 0.5 - 1 tab PO Q4H PRN Pain 07/15/22 10/23/23 10/09/23 History mg tablet cyanocobalamin (vitamin B-12) 1,000 mcg PO DAILY 08/25/22 10/23/23 10/11/23 History 1,000 mcg tablet (Vitamin B-12) tramadol 50 mg tablet 50 mg PO Q6H PRN Pain, Mild 12/29/22 10/23/23 10/07/23 History Cruthes #1 ea 05/11/23 10/23/23 Unknown Rx vit B,C-folic ac 800 mcg-zinc 12.5 1 tab PO BEDTIME 05/15/23 10/23/23 10/10/23 History mg-selen-D3 2,000 unit-vit E tablet (RenaPlex-D) albuterol sulfate 90 mcg/actuation 1 inh inhalation QID PRN shortness 03/19/24 08/10/24 Unknown Rx aerosol inhaler (Ventolin HFA) of breath or wheezing #8.5 grams budesonide 0.5 mg/2 mL suspension 0.5 mg (2 mL) inhalation BID #60 mL 06/01/23 10/23/23 10/11/23 Rx for nebulization budesonide-formoterol HFA 80 2 puff inhalation BID PRN unknown 06/01/23 10/23/23 Unknown Rx mcg-4.5 mcg/actuation aerosol #10.2 grams inhaler (Symbicort) escitalopram oxalate 10 mg tablet 10 mg PO QAM #90 tabs 06/01/23 10/23/23 10/11/23 Rx (Lexapro) fluticasone propionate 50 2 spray intranasal DAILY PRN 06/01/23 10/23/23 Unknown Rx mcg/actuation nasal Allergy Symptoms #16 grams spray,suspension ipratropium 0.5 mg-albuterol 3 mg 3 ml inhalation Q6H Shortness Of 06/01/23 10/23/23 08/16/23 Rx (2.5 mg base)/3 mL nebulization Breath #180 mL soln nitroglycerin 2.5 mg 2.5 mg PO DAILY PRN chest 06/01/23 10/23/23 08/27/23 Rx capsule,extended release tightness #30 caps ropinirole 2 mg tablet 2 mg PO BEDTIME #90 tabs 06/01/23 10/23/23 10/10/23 Rx Diabetic shoes #1 ea 06/04/23 10/23/23 Unknown Rx four point rollaid with chair #1 ea 06/04/23 10/23/23 Unknown Rx nebulizer #1 ea 06/04/23 10/23/23 Unknown Rx nebulizer supplies (hose, mask,ect) #1 ea 06/04/23 10/23/23 Unknown Rx oxygen concentrator #1 ea 06/04/23 10/23/23 Unknown Rx shower chair #1 ea 06/04/23 10/23/23 Unknown Rx toiler riser with handles #1 ea 06/04/23 10/23/23 Unknown Rx [place] #1 ea 06/17/23 10/23/23 Unknown Rx acetaminophen 325 mg tablet 650 mg PO Q6H PRN PAIN OR 08/16/23 10/23/23 10/07/23 History INCREASED TEMP ondansetron HCl 8 mg tablet 8 mg PO Q6H PRN Nausea 08/16/23 10/23/23 09/09/23 History pantoprazole 40 mg tablet,delayed 40 mg PO Q12H 30 days #60 tabs 09/02/23 10/23/23 10/11/23 Rx release bisacodyl 5 mg tablet 10 mg PO DAILY PRN Constipation 10/12/23 10/23/23 10/09/23 History lanthanum 500 mg chewable tablet 500 mg PO TID 10/12/23 10/23/23 10/11/23 History (Fosrenol) sucralfate 1 gram tablet 1 g PO Q12H 10/12/23 10/23/23 Unknown History tamsulosin 0.4 mg capsule (Flomax) 0.4 mg PO BEDTIME 10/12/23 10/23/23 10/10/23 History amiodarone 200 mg tablet (Pacerone) 200 mg PO BEDTIME 30 days #30 tabs 10/20/23 10/23/23 Unknown Rx aspirin 81 mg tablet,delayed 81 mg PO DAILY 30 days #30 tabs 10/20/23 10/23/23 Unknown Rx release atorvastatin 40 mg tablet 40 mg PO BEDTIME 30 days #30 tabs 10/20/23 10/23/23 Unknown Rx carbidopa 10 mg-levodopa 100 mg 1 tab PO TID 30 days #90 tabs 10/20/23 10/23/23 Unknown Rx tablet (Sinemet) collagenase clostridium histo. 250 1 applic topical DAILY #30 grams 10/20/23 10/23/23 Unknown Rx unit/gram topical ointment (Santyl) metronidazole 1 %-mupirocin 2 % 1 ea topical BID 2 weeks #30 mL 10/20/23 10/23/23 Unknown Rx topical ointment miconazole nitrate 2 % topical 1 applic topical BID #30 grams 10/20/23 10/23/23 Unknown Rx cream (Antifungal (miconazole)) midodrine 5 mg tablet 10 mg (2 x 5 mg) PO TID 30 days 10/20/23 10/23/23 Unknown Rx #180 tabs Allergies Allergy/AdvReac Type Severity Reaction Status Date / Time latex Allergy Mild Blisters Verified 10/11/23 15:25 petrolatum,white Allergy Mild Blisters Verified 10/11/23 15:25 [From A and D Barrier] amlodipine Allergy Unknown Verified 10/11/23 15:25 Current Medications Generic Name Dose Route Start Last Admin Trade Name Freq PRN Reason Stop Dose Admin Amiodarone HCl 200 mg 10/22/23 21:32 10/23/23 20:31 Amiodarone 200 Mg Tablet PO 200 mg BEDTIME KENNEDY Administration Carbidopa/Levodopa 1 each 10/22/23 21:32 10/23/23 20:30 Carbidopa-Levodopa 10-100 Mg Tablet PO 1 each TID KENNEDY Administration Sodium Chloride 1,000 mls @ 30 mls/hr 10/24/23 06:00 10/24/23 07:42 Sodium Chloride 0.9% IV 10/25/23 05:59 0 mls/hr .Q24H ONE Infusion Miconazole Nitrate 1 applic 10/23/23 09:00 10/23/23 17:11 Miconazole 2% Topical Cream 28 Gm TOPICAL 1 applic BID KENNEDY Administration Midodrine 10 mg 10/22/23 21:32 10/24/23 07:41 Midodrine 5 Mg Tablet PO 10 mg TID KENNEDY Administration Pantoprazole Sodium 40 mg 10/23/23 09:00 10/23/23 17:11 Pantoprazole 40 Mg Sdv IVP 40 mg BID KENNEDY Administration Ropinirole HCl 2 mg 10/22/23 21:32 10/23/23 20:31 Ropinirole 2 Mg Tablet PO 2 mg BEDTIME KENNEDY Administration Sucralfate 1 gm 10/22/23 21:32 10/23/23 20:31 Sucralfate 1 Gm Tablet PO 1 gm Q12H KENNEDY Administration Tamsulosin HCl 0.4 mg 10/22/23 21:32 10/23/23 20:31 Tamsulosin 0.4 Mg Capsule PO 0.4 mg BEDTIME KENNEDY Administration Additional Medication Information Current Medications Acetaminophen (Acetaminophen 500 Mg Tablet) 500 mg PO Q4H PRN PRN Reason: fever Albuterol/Ipratropium (Ipratropium-Albuterol 3 Ml Neb) 3 ml INHALATION Q6H PRN PRN Reason: SHORTNESS OF BREATH Amiodarone HCl (Amiodarone 200 Mg Tablet) 200 mg PO BEDTIME KENNEDY Last Admin: 10/23/23 20:31 Dose: 200 mg Carbidopa/Levodopa (Carbidopa-Levodopa 10-100 Mg Tablet) 1 each PO TID [facility] Last Admin: 10/23/23 20:30 Dose: 1 each Sodium Chloride (Sodium Chloride 0.9%) 1,000 mls @ 30 mls/hr IV .Q24H ONE Stop: 10/25/23 05:59 Last Infusion: 10/24/23 07:42 Dose: 0 mls/hr Miconazole Nitrate (Miconazole 2% Topical Cream 28 Gm) 1 applic TOPICAL BID [facility] Last Admin: 10/23/23 17:11 Dose: 1 applic Midodrine (Midodrine 5 Mg Tablet) 10 mg PO TID [facility] Last Admin: 10/24/23 07:41 Dose: 10 mg Non-Formulary Medication (Metronidazole-Mupirocin) 1 each TOPICAL BID [facility] Non-Formulary Medication (Lanthanum [Fosrenol]) 500 mg PO TID [facility] Ondansetron HCl (Ondansetron 2 Mg/Ml Sdv 2 Ml) 4 mg IVP Q6H PRN PRN Reason: NAUSEA AND VOMITING Oxycodone/Acetaminophen (Oxycodone-Apap 5-325 Mg Tablet) 1 tab PO Q4H PRN PRN Reason: Pain Pantoprazole Sodium (Pantoprazole 40 Mg Sdv) 40 mg IVP BID [facility] Last Admin: 10/23/23 17:11 Dose: 40 mg Ropinirole HCl (Ropinirole 2 Mg Tablet) 2 mg PO BEDTIME [facility] Last Admin: 10/23/23 20:31 Dose: 2 mg Sucralfate (Sucralfate 1 Gm Tablet) 1 gm PO Q12H [facility] Last Admin: 10/23/23 20:31 Dose: 1 gm Tamsulosin HCl (Tamsulosin 0.4 Mg Capsule) 0.4 mg PO BEDTIME [facility] Last Admin: 10/23/23 20:31 Dose: 0.4 mg PFSH Anesthesia Medical History ESRD (end stage renal disease) Acute exacerbation of congestive heart failure Bradycardia Hyperkalemia ESRD (end stage renal disease) on dialysis Acute hyperkalemia NSTEMI (non-ST elevated myocardial infarction) Chest pain Atrial fibrillation Moderate to severe mitral regurgitation Chronic pain Chronic GI bleeding [place] High risk medication use Chronic anemia COPD (chronic obstructive pulmonary disease) Severe tobacco use disorder ESRD on hemodialysis History of renal dialysis Chronic kidney disease 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 Intermittent palpitations Hyperlipidemia Hypertension XI (obstructive sleep apnea) DJD (degenerative joint disease) Atrial flutter PVD (peripheral vascular disease) Diabetes Surgical History 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 H/O aortic valve replacement with tissue graft H/O aortic valve replacement H/O foot surgery Family History Grandmother Diabetes Grandfather Diabetes Denies family history of CAD (coronary artery disease) Clotting disorder Dementia Chronic kidney disease (CKD) Suicide Anesthesia complication Bleeding disorder Lung disease Cancer Stroke Social History Smoking and tobacco/nicotine status: former use of tobacco/nicotine Alcohol intake: never Substance/Drug Use: never Lives independently: Yes (with girlfriend) Household members: significant other Marital status: Single service: No 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al status: disabled 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 Pets and animals: Yes Special araceli needs: No Agree to transfusion: Yes Data Anesthesia 10/24/23 03:54 10/24/23 03:54 Short CBC 10/22/23 10/23/23 10/23/23 Range/Units 17:33 04:04 15:45 WBC 5.03 4.66 (3.29-11.43) 10^3/uL Hgb 8.10 L 7.90 L 9.30 L (11.27-16.99) g/dL Hct 26.7 L 25.5 L 30.6 L (37-53) % MCV 102.7 H 102.4 H (82-101) fl Plt Count 124 L 110 L (157-399) 10^3/cmm Neut % (Auto) 79.9 69.1 % Neut # (Auto) 4.02 3.22 (1.8-7.7) 10^3/uL 10/24/23 Range/Units 03:54 WBC 4.13 (3.29-11.43) 10^3/uL Hgb 9.20 L (11.27-16.99) g/dL Hct 30.5 L (37-53) % MCV 102.3 H (82-101) fl Plt Count 107 L (157-399) 10^3/cmm Neut % (Auto) 62.0 % Neut # (Auto) 2.56 (1.8-7.7) 10^3/uL BMP 10/22/23 10/23/23 10/24/23 17:33 04:04 03:54 Sodium 134 L 135 L 135 L Potassium 4.4 4.5 4.2 Chloride 95 L 97 L 96 L Carbon Dioxide 26 27 23 BUN 20 25 H 22 Creatinine 3.4 H 3.9 H 3.3 H Glucose 120 H 111 111 Calcium 8.8 9.0 9.2 Liver Function 10/22/23 10/24/23 Range/Units 17:33 03:54 Total Bilirubin 1.3 H 1.4 H (0.15-1.2) mg/dL AST 30 29 (0-40) U/L ALT 6 < 5 (0-41) U/L Alkaline Phosphatase 340 H 311 H (40-130) U/L Albumin 3.7 3.8 (3.5-5.2) g/dL Blood Bank 10/22/23 17:33 Blood Type O Positive Rho(D) Type Rh positive Antibody Screen Negative Coags 10/22/23 17:33 PT 15.60 H INR 1.20 APTT 38.2 H Cardiac Studies: 2 Echocardiogram 10/12/23 Echocardiogram Limited Views 08/16/23 Cardiac Event Monitor 08/24/23
--- NOTE | 2023-10-24 08:30 | PM.PN ---
Subjective Subjective: feels well. is confused. has edema. denies further bloody stools Medications: Reviewed: Yes Medication Review Details: Current Medications Acetaminophen (Acetaminophen 500 Mg Tablet) 500 mg PO Q4H PRN PRN Reason: fever Albuterol/Ipratropium (Ipratropium-Albuterol 3 Ml Neb) 3 ml INHALATION Q6H PRN PRN Reason: SHORTNESS OF BREATH Amiodarone HCl (Amiodarone 200 Mg Tablet) 200 mg PO BEDTIME [facility] Last Admin: 10/23/23 20:31 Dose: 200 mg Carbidopa/Levodopa (Carbidopa-Levodopa 10-100 Mg Tablet) 1 each PO TID [facility] Last Admin: 10/23/23 20:30 Dose: 1 each Sodium Chloride (Sodium Chloride 0.9%) 1,000 mls @ 30 mls/hr IV .Q24H ONE Stop: 10/25/23 05:59 Last Infusion: 10/24/23 07:42 Dose: 0 mls/hr Miconazole Nitrate (Miconazole 2% Topical Cream 28 Gm) 1 applic TOPICAL BID [facility] Last Admin: 10/23/23 17:11 Dose: 1 applic Midodrine (Midodrine 5 Mg Tablet) 10 mg PO TID [facility] Last Admin: 10/24/23 07:41 Dose: 10 mg Non-Formulary Medication (Metronidazole-Mupirocin) 1 each TOPICAL BID [facility] Non-Formulary Medication (Lanthanum [Fosrenol]) 500 mg PO TID [facility] Ondansetron HCl (Ondansetron 2 Mg/Ml Sdv 2 Ml) 4 mg IVP Q6H PRN PRN Reason: NAUSEA AND VOMITING Oxycodone/Acetaminophen (Oxycodone-Apap 5-325 Mg Tablet) 1 tab PO Q4H PRN PRN Reason: Pain Pantoprazole Sodium (Pantoprazole 40 Mg Sdv) 40 mg IVP BID [facility] Last Admin: 10/23/23 17:11 Dose: 40 mg Ropinirole HCl (Ropinirole 2 Mg Tablet) 2 mg PO BEDTIME [facility] Last Admin: 10/23/23 20:31 Dose: 2 mg Sucralfate (Sucralfate 1 Gm Tablet) 1 gm PO Q12H [facility] Last Admin: 10/23/23 20:31 Dose: 1 gm Tamsulosin HCl (Tamsulosin 0.4 Mg Capsule) 0.4 mg PO BEDTIME [facility] Last Admin: 10/23/23 20:31 Dose: 0.4 mg Vitals/I&O/Wt Last Vital Signs Temp 98.3 F 10/24/23 07:21 Pulse 107 H 10/24/23 07:21 Resp 16 10/24/23 07:21 BP 92/60 10/24/23 07:21 Pulse Ox 95 10/24/23 07:21 O2 Del Method Room Air 10/24/23 07:21 O2 Flow Rate 2 10/24/23 04:00 10/23/23 10/24/23 10/24/23 22:59 06:59 14:59 Intake Total 1080 / 1430 120 / 1550 65.5 / 65.5 Output Total 2616 / 2616 100 / 2716 Balance -1536 / -1186 20 / -1166 65.5 / 65.5 Weight last 48 hrs Weight 117.979 kg Weight 118.4 kg Weight 120.656 kg Weight 120.565 kg Physical Exam Const: OTHER: Patient's blood pressure is on the low side. He is comfortable on room air HEENT normocephalic atraumatic neck is supple. Lungs dull bases heart irregular positive S1-S2 Abdomen soft positive bowel sounds. Extremities bilateral edema. Neuro awake alert oriented x 3 Data 10/24/23 03:54 10/24/23 03:54 A&P Assessment and plan (1) End stage renal disease on dialysis: 63-year-old gentleman ESRD A-fib without RVR, Balinitis, chronic hypertension patient mated with GI bleed with hematochezia. Patient is being treated with Protonix and sucralfate. Patient is for endoscopy. 1. ESRD - s/p extra diaylysis yesterday -if stable for repeat HD tomorrow. 2. anemia for EGD today Platelets remain low and stable at 107. hgb stable 3. no need for phos binder The patient was seen and examined with the nurse using A/V equipment and a telehealth visit. The patient consents to telehealth and to hemodialysis. Plan as above, EGD today Attestations Medical Necessity Statement*: per medicine Time Spent in Patient Care: 16 - 35 minutes (>than 50% of time spent in counselling and/or direct pt care on unit). Coding Level of Care Code Acute Code for Chg Fwd Diagnoses End stage renal disease on dialysis N18.6; Z99.2
--- NOTE | 2023-10-24 08:50 | PM.MISC ---
Miscellaneous Note Purpose of Documentation: Update on patient care Note: EGD done and shows evidence of sgnificant erosive gastritis with contact bleeding. biopsies were taken. patient will require high dose PPI and twice a day sucralfate as outpatient, we will follow in 2 weeks with results of biopsies.
--- NOTE | 2023-10-24 09:13 | PC.NURSE ---
Pt back up to med surg floor, room 252-2 at 913am. This nurse assumed care of pt at this time. Transferred via wheelchair by JACOB Golden from GI lab.
--- NOTE | 2023-10-24 09:24 | P.PN_ITS ---
Subjective 2 Subjective: seen at bedside this AM Medications: Reviewed: Yes Vitals/I&O/Wt Last Vital Signs Temp 97.6 F 10/24/23 08:54 Pulse 106 H 10/24/23 09:19 Resp 18 10/24/23 09:19 BP 109/67 10/24/23 09:19 Pulse Ox 100 10/24/23 09:19 O2 Del Method Nasal Cannula 10/24/23 09:19 O2 Flow Rate 2 10/24/23 08:54 10/23/23 10/24/23 10/24/23 22:59 06:59 14:59 Intake Total 1080 / 1430 120 / 1550 65.5 / 65.5 Output Total 2616 / 2616 100 / 2716 Balance -1536 / -1186 20 / -1166 65.5 / 65.5 Weight last 48 hrs Weight 260 lb 1.6 oz Weight 261 lb 0.437 oz Weight 266 lb Weight 265 lb 12.8 oz Physical Exam 2 Narrative: Tachybradycardia syndrome A-fib RVR Signs of fluid overload present Edema of legs noted Venous stasis dermatitis Patient is awake and alert Epigastric hernia No abdominal tenderness Nonfocal neuroexam Multiple bruises of his hands noted bilaterally No sign of vascular ischemia Data 10/24/23 03:54 10/24/23 03:54 A&P Assessment and plan (1) End stage renal disease on dialysis: ESRD on HD had extra dialysis on 10/23/23 scheduled for repeat HD tomorrow platelets stable. no need for phos binder seen by neprhology via [facility] this AM (2) Upper GI bleed: (3) Tachy-mariposa syndrome: (4) Hematochezia: (5) Acute lower GI bleeding: (6) Balanoposthitis: (7) XI (obstructive sleep apnea): Plan Patient has been experiencing hematochezia and upper GI bleed. positive FOBT. 2u PRBC given. CT scan showed diverticulosis. EGD this AM showed gastritis. 1 biopsy taken A-fib tachybradycardia syndrome not a candidate of anticoagulation Continue amiodarone End-stage renal disease HD tomorrow no phos binders s/p EGD. can return to renal diet continue protonix and sucralfate to f/u with gen surg in 2 weeks Restless leg Continue Sinemet Chronic hypotension I would use midodrine Full code Will get renal dialysis diet once evaluated by general surgery Charge nurse notified Disposition: Likely back to detention on Wednesday after EGD Attestations 2 Medical Necessity Statement*: will require 2 overnights stays for dialysis Coding Level of Care Code Acute Code for Chg Fwd Diagnoses End stage renal disease on dialysis N18.6; Z99.2 Upper GI bleed K92.2 Tachy-mariposa syndrome I49.5 Hematochezia K92.1 Acute lower GI bleeding K92.2 Balanoposthitis N47.6 XI (obstructive sleep apnea) G47.33
--- NOTE | 2023-10-24 10:57 | PM.DCS ---
Discharge Providers Date of Admission: 10/22/23 18:15 Date of Discharge: October 24, 2023 Attending Provider at Admission: Patito Michael MD Attending Provider at Discharge: Christofer Varghese MD Consults: Dr. Arroyo (general surgery) Dr. Noel (nephrology) Primary Care Provider: Sulma Zavala MD Diagnoses at Discharge Discharge Diagnosis (1) End stage renal disease on dialysis: Status: Acute (2) Upper GI bleed: Status: Acute (3) Tachy-mariposa syndrome: Status: Acute (4) Hematochezia: Details from hospital stay: resolved Status: Acute (5) Acute lower GI bleeding: Details from hospital stay: resolved Status: Acute (6) Balanoposthitis: Status: Acute (7) XI (obstructive sleep apnea): Status: Acute Reason for Visit Reason for Visit: blood in stool Hospital Course Hospital Course Richard Huffman is a 63 year old male with Hx of CHF, AV replacement, Hx of endocarditis, Afib (not on anticoagulation), HLD, HTH, ESRD on HD, NIDDM2 on doxy suppression, RLS and anxiety presented to ED with decreased urinary output, hematuria and hematochezia. PT was recently discharged for HFpEF exacerbation, NSTEMI and balantitis. chief complaint was GI bleed. Pt was send for HD unit 2/2 hematochezia and melenotic stools. IN ED pt was hemodynamically stable on 2L NC. Acute GI bleed with positive FOBT and Hx of diverticulosis. h/h was low thus pt given 1u pRBC. gneral surgery was consulted, EGD completed showed gastritis w/o visible bleeding. biopsy taken. pt placed on protonix and carafate. pt recieved HD under care of Dr. Noel. at time of discharge, hematochezia and melena had resolved, h/h stabilized, tolerated HD well. will send home on protonix and carafate BID x 4 weeks and to f/u with PCP Physical Exam Narrative: Tachybradycardia syndrome A-fib w/o RVR no signs of fluid overload Venous stasis dermatitis Patient is awake and alert Epigastric hernia No abdominal tenderness Nonfocal neuroexam Multiple bruises of his hands noted bilaterally No sign of vascular ischemia Discharge Data Studies Completed and Pending Completed Studies During Hospitalization Category Date Time Status CT abdomen pelvis w con* [id number] Stat Cat Scan 10/22/23 17:18 Completed Pending at discharge Category Date Time Status Complete Blood Count w/Auto AM LABS Lab 10/25/23 04:00 Ordered Complete Blood Count w/Auto AM LABS Lab 10/26/23 04:00 Ordered Comprehensive Metabolic Panel AM LABS Lab 10/25/23 04:00 Ordered Comprehensive Metabolic Panel AM LABS Lab 10/26/23 04:00 Ordered Magnesium AM LABS Lab 10/25/23 04:00 Ordered Magnesium AM LABS Lab 10/26/23 04:00 Ordered Phosphorus AM LABS Lab 10/25/23 04:00 Ordered Phosphorus AM LABS Lab 10/26/23 04:00 Ordered Pathology: Surgical [PTH] Routine Pth 10/24/23 08:38 Ordered Radiology Impressions Abdomen/Pelvis CT 10/22/23 17:18 IMPRESSION: 1. Subxiphoid hernia contains a nondilated loop of transverse colon. No evidence of obstruction. No pneumoperitoneum. 2. Increasing small volume ascites. 3. Improving circumferential wall thickening of the rectum. 4. Diverticulosis without evidence of diverticulitis. 5. Diffuse anasarca. 6. Severe diffuse atherosclerotic calcifications including coronary artery calcifications. COMMENTS: Consistent with the [employer] [employer]'s Incidental Findings Committee white paper (J Am Yony Radiol 2018): Any incidental renal lesion less than 1 cm or classified as too small to characterize, or any incidental cystic renal lesion characterized as simple-appearing, is likely benign. No follow-up imaging is recommended for these lesions per consensus recommendations based on imaging criteria. Laboratory Results WBC 4.13 10^3/uL (3.29-11.43) 10/24/23 03:54 RBC 2.98 10^6/uL (3.85-5.65) L 10/24/23 03:54 Hgb 9.20 g/dL (11.27-16.99) L 10/24/23 03:54 Hct 30.5 % (37-53) L 10/24/23 03:54 MCV 102.3 fl (82-101) H 10/24/23 03:54 MCH 30.9 pg (27-33) 10/24/23 03:54 MCHC 30.2 g/dL (30-55) 10/24/23 03:54 RDW 21.2 % (12.1-15.1) H 10/24/23 03:54 Plt Count 107 10^3/cmm (157-399) L 10/24/23 03:54 MPV 10.8 fL (7.4-10.4) H 10/24/23 03:54 Neut % (Auto) 62.0 % 10/24/23 03:54 Lymph % (Auto) 21.3 % 10/24/23 03:54 [place] % (Auto) 13.6 % 10/24/23 03:54 Eos % (Auto) 1.7 % 10/24/23 03:54 Baso % (Auto) 1.2 % 10/24/23 03:54 Neut # (Auto) 2.56 10^3/uL (1.8-7.7) 10/24/23 03:54 Lymph # (Auto) 0.9 10^3/uL (0.8-4.8) 10/24/23 03:54 [place] # (Auto) 0.6 10^3/uL (0.2-0.9) 10/24/23 03:54 Eos # (Auto) 0.1 10^3/uL (0.0-0.8) 10/24/23 03:54 Baso # (Auto) 0.1 10^3/uL (0.0-0.1) 10/24/23 03:54 Nucleated RBC % (auto) 0 % 10/24/23 03:54 Nucleated RBCs # 0.0 /100WBC 10/24/23 03:54 PT 15.60 SECONDS (12.1-14.9) H 10/22/23 17:33 INR 1.20 (0.8-1.2) 10/22/23 17:33 APTT 38.2 SECONDS (23.9-36.7) H 10/22/23 17:33 Sodium 135 mmol/L (136-145) L 10/24/23 03:54 Potassium 4.2 mmol/L (3.5-5.1) 10/24/23 03:54 Chloride 96 mmol/L (98-107) L 10/24/23 03:54 Carbon Dioxide 23 mmol/L (22-29) 10/24/23 03:54 Anion Gap 20.2 (5-19) H 10/24/23 03:54 BUN 22 mg/dL (8-23) 10/24/23 03:54 Creatinine 3.3 mg/dL (0.7-1.2) H 10/24/23 03:54 GFR Calculation 19.2 mL/min (90-130) L 10/24/23 03:54 Glucose 111 mg/dL (65-115) 10/24/23 03:54 Calculated Osmolality 284 mOsm/kg (285-295) L 10/24/23 03:54 Calcium 9.2 mg/dL (8.5-10.5) 10/24/23 03:54 Phosphorus 2.5 mg/dL (2.5-4.5) 10/24/23 03:54 Magnesium 2.1 mg/dL (1.7-2.3) 10/24/23 03:54 Total Bilirubin 1.4 mg/dL (0.15-1.2) H 10/24/23 03:54 AST 29 U/L (0-40) 10/24/23 03:54 ALT < 5 U/L (0-41) 10/24/23 03:54 Alkaline Phosphatase 311 U/L (40-130) H 10/24/23 03:54 Total Protein 6.6 g/dL (6.6-8.7) 10/24/23 03:54 Albumin 3.8 g/dL (3.5-5.2) 10/24/23 03:54 Globulin 2.8 g/dL (1.3-4.6) 10/24/23 03:54 Blood Type O Positive 10/22/23 17:33 Rho(D) Type Rh positive 10/22/23 17:33 Antibody Screen Negative 10/22/23 17:33 Crossmatch See Detail 10/22/23 17:33 Vitals Last Vital Signs Temp 97.6 F 10/24/23 08:54 Pulse 106 H 10/24/23 09:19 Resp 18 10/24/23 09:19 BP 109/67 10/24/23 09:19 Pulse Ox 100 10/24/23 09:19 O2 Del Method Nasal Cannula 10/24/23 09:19 O2 Flow Rate 2 10/24/23 08:54 Discharge Plan Discharge Patient Disposition: Home Condition: Stable Prescriptions: New pantoprazole [Protonix] 40 mg tablet,delayed release (DR/EC) 40 mg PO BID 28 Days Qty: 56 0RF sucralfate [Carafate] 1 gram tablet 1 g PO BID 28 Days Qty: 56 0RF Continued tramadol 50 mg tablet 50 mg PO Q6H PRN (Reason: Pain, Mild) albuterol sulfate [Ventolin HFA] 90 mcg/actuation HFA aerosol inhaler 1 inh inhalation QID PRN (Reason: shortness of breath or wheezing) Qty: 8.5 3RF budesonide 0.5 mg/2 mL suspension for nebulization 0.5 mg inhalation BID Qty: 60 3RF budesonide-formoterol [Symbicort] 80-4.5 mcg/actuation HFA aerosol inhaler 2 puff INHALATION BID PRN (Reason: unknown) Qty: 10.2 2RF Lexapro 10 mg tablet 10 mg PO QAM Qty: 90 1RF ipratropium-albuterol 0.5 mg-3 mg(2.5 mg base)/3 mL solution for nebulization 3 ml INHALATION Q6H Qty: 180 3RF ropinirole 2 mg tablet 2 mg PO BEDTIME Qty: 90 1RF nitroglycerin 2.5 mg capsule, extended release 2.5 mg PO DAILY PRN (Reason: chest tightness) Qty: 30 0RF fluticasone propionate 50 mcg/actuation spray,suspension 2 spray intranasal DAILY PRN (Reason: Allergy Symptoms) Qty: 16 1RF (DME) Diabetic shoes See Rx Instructions .ROUTE .MEDSUPPLY Qty: 1 0RF Rx Instructions: With 3 pairs of inserts to the shoe guys (DME) four point rollaid with chair See Rx Instructions .Route .MEDSUPPLY Qty: 1 0RF Rx Instructions: As directed (DME) nebulizer See Rx Instructions .Route .MEDSUPPLY Qty: 1 0RF Rx Instructions: As directed (DME) nebulizer supplies (hose, mask,ect) See Rx Instructions .Route .MEDSUPPLY Qty: 1 1RF Rx Instructions: As directed (DME) oxygen concentrator See Rx Instructions .Route .MEDSUPPLY Qty: 1 0RF Rx Instructions: As directed (DME) shower chair See Rx Instructions .Route .MEDSUPPLY Qty: 1 1RF Rx Instructions: As directed (DME) toiler riser with handles See Rx Instructions .Route .MEDSUPPLY Qty: 1 0RF Rx Instructions: As directed (DME) [place] See Rx Instructions .Route .MEDSUPPLY Qty: 1 0RF Rx Instructions: As directed (DME) Crutches See Rx Instructions .Route .MEDSUPPLY Qty: 1 0RF Rx Instructions: As directed HOME acetaminophen 325 mg Tablet 650 mg PO Q6H PRN (Reason: PAIN OR INCREASED TEMP) ondansetron HCl 8 mg tablet 8 mg PO Q6H PRN (Reason: Nausea) oxycodone-acetaminophen 5-325 mg tablet 0.5 - 1 tab PO Q4H PRN (Reason: Pain) cyanocobalamin (vitamin B-12) [Vitamin B-12] 1,000 mcg tablet 1,000 mcg PO DAILY RenaPlex-D 800 mcg-12.5 mg -2,000 unit tablet 1 tab PO BEDTIME sucralfate 1 gram tablet 1 g PO Q12H tamsulosin [Flomax] 0.4 mg Capsule 0.4 mg PO BEDTIME bisacodyl 5 mg Tablet 10 mg PO DAILY PRN (Reason: Constipation) lanthanum [Fosrenol] 500 mg Tablet,Chewable 500 mg PO TID Rx Instructions: administer with food; chew thoroughly before swallowing amiodarone [Pacerone] 200 mg Tablet 200 mg PO BEDTIME 30 Days Qty: 30 0RF midodrine 5 mg Tablet 10 mg PO TID 30 Days Qty: 180 0RF aspirin 81 mg Tablet,Delayed Release (Dr/Ec) 81 mg PO DAILY 30 Days Qty: 30 0RF atorvastatin 40 mg Tablet 40 mg PO BEDTIME 30 Days Qty: 30 0RF metronidazole-mupirocin 1-2 % ointment 1 ea topical BID 14 Days Qty: 30 0RF miconazole nitrate [Antifungal (miconazole)] 2 % cream 1 applic topical BID Qty: 30 0RF carbidopa-levodopa [Sinemet] 10-100 mg tablet 1 tab PO TID 30 Days Qty: 90 0RF Rx Instructions: start 10/21/2023 Santyl 250 unit/gram ointment 1 applic topical DAILY Qty: 30 0RF Rx Instructions: START ONLY AFTER PURULENCE BEHIND THE HEAD OF PENIS RESOLVES Discontinued pantoprazole 40 mg tablet,delayed release (DR/EC) 40 mg PO Q12H 30 Days Qty: 60 0RF Discharge Orders: Discharge Order (Routine); Ordered 10/24/23 Ordered By: Christofer Varghese Referrals: Sulma Zavala MD [Primary Care Provider] - Discharge Diet: As Directed and Cardiac Discharge Activity: Increase activity as tolerated Patient Instructions: GI Post Discharge Instructions w/ Anesthesia, Opioid Safety Discharge Attestations Time Spent in Discharge Care*: greater than 30 min Status at Discharge: Cognitive status at discharge: cognitively intact, Behavioral status at discharge: cooperative, Quality Metrics Clinical Quality Measures [ No reported AMI, CVA or VTE this stay] Coding Level of Care Code 67848 Diagnoses End stage renal disease on dialysis N18.6; Z99.2 Upper GI bleed K92.2 Tachy-mariposa syndrome I49.5 Hematochezia K92.1 Acute lower GI bleeding K92.2 Balanoposthitis N47.6 XI (obstructive sleep apnea) G47.33
[2023-10-24] MEDS: sucralfate 1 gm Tablet PO (10:58)
--- NOTE | 2023-10-24 12:05 | PC.NURSE ---
D/C pending transport to [facility].
--- NOTE | 2023-10-24 12:10 | PC.NURSE ---
Report called to ANTONY Herrera at [facility] at 1200
== END 2023-10-24 13:26 | disposition home or self-care (01) ==
LOC: ER 17:18 → MEDSURG 22:04
PROVIDERS: Internal Medicine Nephrology; Surgery; Admitting Provider Internal Medicine; Emergency Provider Family Medicine; PCP Family Medicine; Visit Provider Family Medicine
PROC: 0DJ08ZZ Inspection of Upper Intestinal Tract, Via Natural or Artificial Opening Endoscopic (ICD-10-PCS; CPT 43235; principal; 2023-10-24 08:00)
DX: K92.2 Gastrointestinal hemorrhage, unspecified (principal); E11.22 Type 2 diabetes mellitus with diabetic chronic kidney disease; I13.0 Hypertensive heart and chronic kidney disease with heart failure and stage 1 through stage 4 chronic kidney disease, or unspecified chronic kidney disease; N18.6 End stage renal disease; Z99.2 Dependence on renal dialysis; I49.5 Sick sinus syndrome; K29.30 Chronic superficial gastritis without bleeding; K92.1 Melena; N47.6 Balanoposthitis; G47.33 Obstructive sleep apnea (adult) (pediatric); I50.30 Unspecified diastolic (congestive) heart failure; I48.91 Unspecified atrial fibrillation; E78.5 Hyperlipidemia, unspecified; F41.9 Anxiety disorder, unspecified; J44.9 Chronic obstructive pulmonary disease, unspecified; Z87.891 Personal history of nicotine dependence
CPT/HCPCS: 36415; 36430; 74177; 80048; 80053; 82274; 83735; 84100; 85014; 85018; 85025; 85610; 85730; 86850; 86900; 86920; 88305; 88342; 90935; 99285; G0378; J2470; J2704; J7030; P9016; Q9967

== ENCOUNTER → 2023-11-02 09:11 | Outpatient (BNVA) | payer OTHER, SELFPAY | PROVIDERS: PCP Family Medicine; Visit Provider Nurse Practitioner Family | DX: I11.0 Hypertensive heart disease with heart failure (principal); I50.42 Chronic combined systolic (congestive) and diastolic (congestive) heart failure; Z87.891 Personal history of nicotine dependence | CPT/HCPCS: 99213 ==

== ENCOUNTER 2023-11-03 13:21 | Observation (INO) | payer OTHER, SELFPAY ==
[2023-11-03] VITALS (7 sets, daily range): BP systolic 91–113; BP diastolic 59–96; PULSE 99–114; RESP 18–22; TEMP 36.4–36.6; O2SAT 96–100; BMI 41.0
--- NOTE | 2023-11-03 13:51 | ECG_ITS ---
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 Measurements Intervals [place] Rate: 101 P: 0 MD: 0 QRS: -64 QRSD: 154 T: 111 QT: 435 QTc: 565 Interpretive Statements Possible sinus rhythm with a first-degree AV block LEFT AXIS DEVIATION [QRS AXIS < -30] RIGHT BUNDLE BRANCH BLOCK [120+ ms QRS DURATION, UPRIGHT V1, 40+ ms S IN I/aVL/V4/V5/V6] POSSIBLE ANTERIOR MYOCARDIAL INFARCTION , OF INDETERMINATE AGE [30 ms Q WAVE IN V3/V4, OR R < 0.2 mV IN V4] CRITICAL TEST RESULT Compared to ECG 10/12/2023 00:36:01 Myocardial infarct finding now present Electronically Signed On 11-04-2023 0:18:43 CDT by Bertin Tierney M.D. [id number]
--- NOTE | 2023-11-03 13:55 | PC.PHAR ---
[facility] all botello and jorge 11/03/23 1:55pm
--- NOTE | 2023-11-03 13:57 | W.ED.WEAKNES ---
HPI - Weakness General: Chief complaint: Weakness Stated complaint: Hypotensive Time Seen by Provider: 11/03/23 13:22 History of Present Illness: 65-year-old male with history of end-stage renal disease on dialysis, hypertension, congestive heart failure, coronary artery disease, COPD, obstructive sleep apnea and chronic venous stasis who presents to the emergency room with weakness and low blood pressure from dialysis clinic. He says over the past few weeks she has had worsening redness and pain and weeping in his legs. He says his legs gotten so weak he can barely stand up. Blood pressure is near his baseline in the 90s on presentation. No known fevers. He has worse edema in his scrotum. He has to sleep in a recliner. In general more short of breath. Review of Systems Narrative: Constitutional symptoms: Negative except as documented in HPI. Skin symptoms: Negative except as documented in HPI. Eye symptoms: Negative except as documented in HPI. ENMT symptoms: Negative except as documented in HPI. Respiratory symptoms: Negative except as documented in HPI. Cardiovascular symptoms: Negative except as documented in HPI. Gastrointestinal symptoms: Negative except as documented in HPI. Genitourinary symptoms: Negative except as documented in HPI. Musculoskeletal symptoms: Negative except as documented in HPI. Neurologic symptoms: Negative except as documented in HPI. Psychiatric symptoms: Negative except as documented in HPI. Endocrine symptoms: Negative except as documented in HPI. [facility] ED PFSH: Medical History (Updated 11/03/23 @ 14:49 by Michaelle Pickett MD) Hypertension ESRD (end stage renal disease) Acute exacerbation of congestive heart failure Bradycardia Hyperkalemia ESRD (end stage renal disease) on dialysis Acute hyperkalemia NSTEMI (non-ST elevated myocardial infarction) Chest pain Atrial fibrillation Moderate to severe mitral regurgitation Chronic pain Chronic GI bleeding Hiatal hernia High risk medication use Chronic anemia COPD (chronic obstructive pulmonary disease) Severe tobacco use disorder ESRD on hemodialysis History of renal dialysis Chronic kidney disease 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 Intermittent palpitations Hyperlipidemia XI (obstructive sleep apnea) DJD (degenerative joint disease) Atrial flutter PVD (peripheral vascular disease) Diabetes Surgical History 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 H/O aortic valve replacement with tissue graft H/O aortic valve replacement H/O foot surgery Family History Grandmother Diabetes Grandfather Diabetes Denies family history of CAD (coronary artery disease) Clotting disorder Dementia Chronic kidney disease (CKD) Suicide Anesthesia complication Bleeding disorder Lung disease Cancer Stroke Social History Smoking and tobacco/nicotine status: former use of tobacco/nicotine Alcohol intake: never Substance/Drug Use: never Lives independently: Yes (with girlfriend) Household members: significant other Marital status: Single service: No 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al status: disabled 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 Skin: Warm, dry. Edema, venous stasis, erythema, weeping of the legs bilaterally Head: Normocephalic, atraumatic. Neck: Supple, trachea midline. Eye: Extraocular movements are intact. Ears, nose, mouth and throat: mucosa moist. Cardiovascular: Regular, Normal peripheral perfusion. Respiratory: Lungs are clear to auscultation, respirations are non-labored, breath sounds are equal, Symmetrical chest wall expansion. Gastrointestinal: Soft, Nontender, Non distended Musculoskeletal: Normal ROM, no deformity. Neurological: Alert and oriented, No focal neurological deficit observed. Psychiatric: Cooperative, appropriate mood & affect. Course Vital Signs: Vital signs: Vital Signs Temperature 97.6 F 11/03/23 13:24 Pulse Rate 101 H 11/03/23 13:24 Respiratory Rate 22 H 11/03/23 13:24 Blood Pressure 91/59 11/03/23 13:24 Pulse Oximetry 96 11/03/23 13:24 Oxygen Delivery Me thod Nasal Cannula 11/03/23 13:24 Oxygen Flow Rate 3 11/03/23 13:24 MDM - Weakness Medical Decision Making Medical decision making: Differential diagnosis for patient presenting with generalized weakness including but not limited to and based on the above HPI, review of systems and physical exam: Sepsis. Dehydration. Renal failure. Electrolyte abnormalities. Anemia. Congestive heart failure. Hypotension. Coronary syndrome. Hepatitis. Cirrhosis. Infections such as pneumonia, urinary tract infection, Tick bourne illness, Cellulitis, Viral infections including influenza and Covid-19. EKG: Time 1351. Rate 101. atrial fibrillation with controlled rate, No ST-T changes, no ectopy, This was reviewed and interpreted by myself the ER physician at 1353. Lab Review: Laboratory results were reviewed and interpreted by myself the emergency room physician. Hemoglobin stable at 8.8. BUN/creatinine are 23 and 4. This would be appropriate for this dialysis patient. ESR is elevated. Lactate is negative. I do not believe he is septic. Chest x-ray: Cardiomegaly, early failure, no obvious focal infiltrates. This was reviewed and interpreted by myself the ER physician. I reviewed the patient's medical record. Reexamination: Patient remained stable. No increased work of breathing. No altered mental status. No focal motor deficits. Consultation: I spoke with Dr. Michael with the hospitalist service who agrees to admission to observation for now. Assessment and plan: Cellulitis Weakness Anasarca End-stage renal disease on dialysis ?Zyvox and cefepime in the emergency room -I discussed the patient with the hospitalist on-call who is admitting the patient. - Discussed findings and plan with patient. Answered any questions. - All laboratory values were reviewed and interpreted personally by myself, the ER physician - All imaging was reviewed and interpreted personally by myself, the ER physician. - Evaluation and treatment of this problem were appropriate in the emergency setting Lab Data 11/03/23 13:38 11/03/23 13:38 Radiology Impressions Chest X-Ray 11/03/23 14:05 IMPRESSION: 1. Interval development of mild to moderate pulmonary edema since 10/11/2023. 2. Very tiny bilateral pleural effusions. 3. Right-sided hemodialysis catheter. 4. Enlarging heart silhouette. Laboratory Results WBC 4.34 10^3/uL (3.29-11.43) 11/03/23 13:38 RBC 2.81 10^6/uL (3.85-5.65) L 11/03/23 13:38 Hgb 8.80 g/dL (11.27-16.99) L 11/03/23 13:38 Hct 28.3 % (37-53) L 11/03/23 13:38 MCV 100.7 fl (82-101) 11/03/23 13:38 MCH 31.3 pg (27-33) 11/03/23 13:38 MCHC 31.1 g/dL (30-55) 11/03/23 13:38 RDW 22.5 % (12.1-15.1) H 11/03/23 13:38 Plt Count 94 10^3/cmm (157-399) L 11/03/23 13:38 MPV 10.4 fL (7.4-10.4) 11/03/23 13:38 Neut % (Auto) 69.4 % 11/03/23 13:38 Lymph % (Auto) 18.0 % 11/03/23 13:38 [place] % (Auto) 9.0 % 11/03/23 13:38 Eos % (Auto) 2.5 % 11/03/23 13:38 Baso % (Auto) 0.9 % 11/03/23 13:38 Neut # (Auto) 3.01 10^3/uL (1.8-7.7) 11/03/23 13:38 Lymph # (Auto) 0.8 10^3/uL (0.8-4.8) 11/03/23 13:38 [place] # (Auto) 0.4 10^3/uL (0.2-0.9) 11/03/23 13:38 Eos # (Auto) 0.1 10^3/uL (0.0-0.8) 11/03/23 13:38 Baso # (Auto) 0.0 10^3/uL (0.0-0.1) 11/03/23 13:38 Nucleated RBC % (auto) 0 % 11/03/23 13:38 Nucleated RBCs # 0.0 /100WBC 11/03/23 13:38 ESR 6 mm/hr (0-10) 11/03/23 13:38 Sodium 135 mmol/L (136-145) L 11/03/23 13:38 Potassium 3.6 mmol/L (3.5-5.1) 11/03/23 13:38 Chloride 92 mmol/L (98-107) L 11/03/23 13:38 Carbon Dioxide 31 mmol/L (22-29) H 11/03/23 13:38 Anion Gap 15.6 (5-19) 11/03/23 13:38 BUN 23 mg/dL (8-23) 11/03/23 13:38 Creatinine 4.0 mg/dL (0.7-1.2) H 11/03/23 13:38 GFR Calculation 15.3 mL/min (90-130) L 11/03/23 13:38 Glucose 103 mg/dL (65-115) 11/03/23 13:38 Calculated Osmolality 284 mOsm/kg (285-295) L 11/03/23 13:38 Lactic Acid 1.5 mmol/L (0.5-2.2) 11/03/23 13:38 Calcium 8.7 mg/dL (8.5-10.5) 11/03/23 13:38 Phosphorus 3.8 mg/dL (2.5-4.5) 11/03/23 13:38 Magnesium 2.0 mg/dL (1.7-2.3) 11/03/23 13:38 Total Bilirubin 2.1 mg/dL (0.15-1.2) H 11/03/23 13:38 AST 48 U/L (0-40) H 11/03/23 13:38 ALT 6 U/L (0-41) 11/03/23 13:38 Alkaline Phosphatase 416 U/L (40-130) H 11/03/23 13:38 Troponin T Baseline 393 ng/L (0-15) H* 11/03/23 13:38 C-Reactive Protein 84.0 mg/L (0.0-4.9) H 11/03/23 13:38 Total Protein 5.8 g/dL (6.6-8.7) L 11/03/23 13:38 Albumin 3.5 g/dL (3.5-5.2) 11/03/23 13:38 Globulin 2.3 g/dL (1.3-4.6) 11/03/23 13:38 All radiology interpretation(s) finalized by discharge Discharge Plan Discharge Patient Disposition: Admitted As Inpatient Clinical Impression: Weakness, Lower extremity cellulitis, End stage renal disease on dialysis, Anasarca Condition: Stable Coding Level of Care Code 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 [employer] Related Data Home Medications Medication Instructions Recorded Confirmed oxycodone-acetaminophen 5 mg-325 0.5 - 1 tab PO Q4H PRN Pain 07/15/22 11/03/23 mg tablet cyanocobalamin (vitamin B-12) 1,000 mcg PO DAILY 08/25/22 11/03/23 1,000 mcg tablet (Vitamin B-12) tramadol 50 mg tablet 50 mg PO Q6H PRN Pain, Mild 12/29/22 11/03/23 vit B,C-folic ac 800 mcg-zinc 12.5 1 tab PO BEDTIME 05/15/23 11/03/23 mg-selen-D3 2,000 unit-vit E tablet (RenaPlex-D) acetaminophen 325 mg tablet 650 mg PO Q6H PRN PAIN OR 08/16/23 11/03/23 INCREASED TEMP ondansetron HCl 8 mg tablet 8 mg PO Q6H PRN Nausea 08/16/23 11/03/23 bisacodyl 5 mg tablet 10 mg PO DAILY PRN Constipation 10/12/23 11/03/23 lanthanum 500 mg chewable tablet 500 mg PO TID 10/12/23 11/03/23 (Fosrenol) tamsulosin 0.4 mg capsule (Flomax) 0.4 mg PO BEDTIME 10/12/23 11/03/23 alprazolam 0.25 mg tablet (Xanax) 0.25 mg PO TID 11/02/23 11/03/23 hydralazine 25 mg tablet 25 mg PO TID 11/02/23 11/03/23 Previous Rx's Medication Instructions Recorded Cruthes #1 ea 05/11/23 albuterol sulfate 90 mcg/actuation 1 inh inhalation QID PRN shortness 06/01/23 aerosol inhaler (Ventolin HFA) of breath or wheezing #8.5 grams budesonide 0.5 mg/2 mL suspension 0.5 mg (2 mL) inhalation BID #60 mL 06/01/23 for nebulization budesonide-formoterol HFA 80 2 puff inhalation BID PRN unknown 06/01/23 mcg-4.5 mcg/actuation aerosol #10.2 grams inhaler (Symbicort) escitalopram oxalate 10 mg tablet 10 mg PO QAM #90 tabs 06/01/23 (Lexapro) fluticasone propionate 50 2 spray intranasal DAILY PRN 06/01/23 mcg/actuation nasal Allergy Symptoms #16 grams spray,suspension ipratropium 0.5 mg-albuterol 3 mg 3 ml inhalation Q6H Shortness Of 06/01/23 (2.5 mg base)/3 mL nebulization Breath #180 mL soln nitroglycerin 2.5 mg 2.5 mg PO DAILY PRN chest 06/01/23 capsule,extended release tightness #30 caps ropinirole 2 mg tablet 2 mg PO BEDTIME #90 tabs 06/01/23 Diabetic shoes #1 06/04/23 four point rollaid with chair #1 06/04/23 nebulizer #1 06/04/23 nebulizer supplies (hose, mask,ect) #1 06/04/23 oxygen concentrator #1 06/04/23 shower chair #1 06/04/23 toiler riser with handles #1 06/04/23 [place] #1 06/17/23 aspirin 81 mg tablet,delayed 81 mg PO DAILY 30 days #30 tabs 10/20/23 release atorvastatin 40 mg tablet 40 mg PO BEDTIME 30 days #30 tabs 10/20/23 carbidopa 10 mg-levodopa 100 mg 1 tab PO TID 30 days #90 tabs 10/20/23 tablet (Sinemet) collagenase clostridium histo. 250 1 applic topical DAILY #30 grams 10/20/23 unit/gram topical ointment (Santyl) miconazole nitrate 2 % topical 1 applic topical BID #30 grams 10/20/23 cream (Antifungal (miconazole)) midodrine 5 mg tablet 10 mg (2 x 5 mg) PO TID 30 days 10/20/23 #180 tabs pantoprazole 40 mg tablet,delayed 40 mg PO BID 4 weeks #56 tabs 10/24/23 release (Protonix) sucralfate 1 gram tablet (Carafate) 1 g PO BID 4 weeks #56 tabs 10/24/23 Allergies Allergy/AdvReac Type Severity Reaction Status Date / Time latex Allergy Mild Blisters Verified 11/02/23 09:16 petrolatum,white Allergy Mild Blisters Verified 11/02/23 09:16 [From A and D Barrier] amlodipine Allergy Unknown Verified 11/02/23 09:16
[2023-11-03 13:59] LABS: Basophils % 0.9 %; Eosinophils # 0.1 10^3/uL (0.0-0.8); Eosinophils % 2.5 %; Hematocrit 28.3 % (37-53); Lymphocytes # 0.8 10^3/uL (0.8-4.8); Mean Corpuscular HGB Conc 31.1 g/dL (30-55); Mean Corpuscular Hemoglobin 31.3 pg (27-33); Mean Corpuscular Volume 100.7 fl (82-101); Mean Platelet Volume 10.4 fL (7.4-10.4); Monocytes # 0.4 10^3/uL (0.2-0.9); Neutrophils # 3.01 10^3/uL (1.8-7.7); Neutrophils % 69.4 %; Nucleated Red Blood Cells % 0 %; Platelet Count 94 10^3/cmm (157-399); Red Blood Count 2.81 10^6/uL (3.85-5.65); Red Cell Distribution Width 22.5 % (12.1-15.1); White Blood Count 4.34 10^3/uL (3.29-11.43)
--- NOTE | 2023-11-03 14:05 | XR_ITS ---
WS: [id number] PORTABLE CHEST HISTORY: Weakness COMPARISON: 10/11/2023 Large bore dialysis catheter projects over the RIGHT thorax. Tip extends over the RIGHT heart. Prior median sternotomy. New mild interstitial thickening and pulmonary edema is now present. No areas of consolidation. Small bilateral pleural effusions, RIGHT slightly greater than the LEFT. Cardiac size: Moderately enlarged cardiac silhouette. Silhouette has increased in size since the prio r study. Mediastinum/Aorta: Mild atherosclerosis aorta. No osseous abnormality seen. XR/XR chest 1V portable [id number] IMPRESSION: 1. Interval development of mild to moderate pulmonary edema since 10/11/2023. 2. Very tiny bilateral pleural effusions. 3. Right-sided hemodialysis catheter. 4. Enlarging heart silhouette.
[2023-11-03 14:07] LABS: Erythrocyte Sedimentation Rate 6 mm/hr (0-10)
[2023-11-03 14:23] LABS: Alanine Aminotransferase 6 U/L (0-41); Albumin Level 3.5 g/dL (3.5-5.2); Alkaline Phosphatase 416 U/L (40-130); Anion Gap 15.6 (5-19); Aspartate Amino Transferase 48 U/L (0-40); Blood Urea Nitrogen 23 mg/dL (8-23); Calcium 8.7 mg/dL (8.5-10.5); Carbon Dioxide 31 mmol/L (22-29); Chloride 92 mmol/L (98-107); Creatinine Clr Calc Pharmacy 25.4719; Globulin 2.3 g/dL (1.3-4.6); Glomerular Filtration Rate 15.3 mL/min (90-130); Glucose 103 mg/dL (65-115); Osmolality Calculated 284 mOsm/kg (285-295); Phosphorus 3.8 mg/dL (2.5-4.5); Potassium 3.6 mmol/L (3.5-5.1); Sodium 135 mmol/L (136-145); Total Bilirubin 2.1 mg/dL (0.15-1.2); Total Protein 5.8 g/dL (6.6-8.7)
[2023-11-03 14:24] LABS: Lactic Sepsis W/Reflex 1.5 mmol/L (0.5-2.2)
[2023-11-03 14:27] LABS: Troponin(5th) Baseline 393 ng/L (0-15)
[2023-11-03] MEDS: cefepime 2,000 MG in sodium chloride 0.9% (plus) 50 ML 100 MG IV (15:05)
--- NOTE | 2023-11-03 15:22 | P.HP_ITS ---
Providers/Chief Complaint 2 Primary Care Provider: Sulma Zavala MD Chief Complaint: Hypotensive History of Present Illness Richard Huffman is a 63 year old male with history of CHF, endocarditis, A-fib not on anticoagulation secondary to anemia, anterior disease Wednesday rei-zsnkklx-egefnypwd diabetes, restless leg syndrome, preserved ejection fraction, was recent discharge from the hospital after management of GI bleed, status post 1 unit PRBC, EGD showed gastritis without visible bleeding vessel, presenting from dialysis center for low blood pressure and lower extremity weakness. Patient is stating that his lower extremities gave up on him day before yesterday, he has been able to use a walker before, he has not noticed any strokelike symptoms, today he went for dialysis where his blood pressure was low that prompted his visit to the ER Review of Systems 2 Const: Denies: fever(s) Eyes: Denies: change in vision ENMT: Denies: throat pain Card: Reports: swelling of feet/ankles; Denies: chest pain Resp: Reports: dyspnea GI: Denies: abdominal pain : Denies: flank pain Neuro: Reports: numbness in extremities, weakness in extremities, lack of coordination and difficulty walking Medications/Allergies Home Medications Medication Instructions Recorded Confirmed Last Taken Type oxycodone-acetaminophen 5 mg-325 0.5 - 1 tab PO Q4H PRN Pain 07/15/22 11/03/23 10/09/23 History mg tablet cyanocobalamin (vitamin B-12) 1,000 mcg PO DAILY 08/25/22 11/03/23 11/03/23 History 1,000 mcg tablet (Vitamin B-12) tramadol 50 mg tablet 50 mg PO Q6H PRN Pain, Mild 12/29/22 11/03/23 10/07/23 History Cruthes #1 ea 05/11/23 11/03/23 Unknown Rx vit B,C-folic ac 800 mcg-zinc 12.5 1 tab PO BEDTIME 05/15/23 11/03/23 11/02/23 History mg-selen-D3 2,000 unit-vit E tablet (RenaPlex-D) albuterol sulfate 90 mcg/actuation 1 inh inhalation QID PRN shortness 06/01/23 11/03/23 Unknown Rx aerosol inhaler (Ventolin HFA) of breath or wheezing #8.5 grams budesonide 0.5 mg/2 mL suspension 0.5 mg (2 mL) inhalation BID #60 mL 06/01/23 11/03/23 11/03/23 Rx for nebulization budesonide-formoterol HFA 80 2 puff inhalation BID PRN unknown 06/01/23 11/03/23 Unknown Rx mcg-4.5 mcg/actuation aerosol #10.2 grams inhaler (Symbicort) escitalopram oxalate 10 mg tablet 10 mg PO QAM #90 tabs 06/01/23 11/03/23 11/03/23 Rx (Lexapro) fluticasone propionate 50 2 spray intranasal DAILY PRN 06/01/23 11/03/23 Unknown Rx mcg/actuation nasal Allergy Symptoms #16 grams spray,suspension ipratropium 0.5 mg-albuterol 3 mg 3 ml inhalation Q6H Shortness Of 06/01/23 11/03/23 11/03/23 Rx (2.5 mg base)/3 mL nebulization Breath #180 mL soln nitroglycerin 2.5 mg 2.5 mg PO DAILY PRN chest 06/01/23 11/03/23 08/27/23 Rx capsule,extended release tightness #30 caps ropinirole 2 mg tablet 2 mg PO BEDTIME #90 tabs 06/01/23 11/03/23 11/02/23 Rx Diabetic shoes #1 ea 06/04/23 11/03/23 Unknown Rx four point rollaid with chair #1 ea 06/04/23 11/03/23 Unknown Rx nebulizer #1 ea 06/04/23 11/03/23 Unknown Rx nebulizer supplies (hose, mask,ect) #1 ea 06/04/23 11/03/23 Unknown Rx oxygen concentrator #1 ea 06/04/23 11/03/23 Unknown Rx shower chair #1 ea 06/04/23 11/03/23 Unknown Rx toiler riser with handles #1 ea 06/04/23 11/03/23 Unknown Rx [place] #1 ea 06/17/23 11/03/23 Unknown Rx acetaminophen 325 mg tablet 650 mg PO Q6H PRN PAIN OR 08/16/23 11/03/23 10/07/23 History INCREASED TEMP ondansetron HCl 8 mg tablet 8 mg PO Q6H PRN Nausea 08/16/23 11/03/23 09/09/23 History bisacodyl 5 mg tablet 10 mg PO DAILY PRN Constipation 10/12/23 11/03/23 10/09/23 History lanthanum 500 mg chewable tablet 500 mg PO TID 10/12/23 11/03/23 11/03/23 History (Fosrenol) tamsulosin 0.4 mg capsule (Flomax) 0.4 mg PO BEDTIME 10/12/23 11/03/23 11/02/23 History aspirin 81 mg tablet,delayed 81 mg PO DAILY 30 days #30 tabs 10/20/23 11/03/23 11/03/23 Rx release atorvastatin 40 mg tablet 40 mg PO BEDTIME 30 days #30 tabs 10/20/23 11/03/23 11/02/23 Rx carbidopa 10 mg-levodopa 100 mg 1 tab PO TID 30 days #90 tabs 10/20/23 11/03/23 11/03/23 Rx tablet (Sinemet) collagenase clostridium histo. 250 1 applic topical DAILY #30 grams 10/20/23 11/03/23 Unknown Rx unit/gram topical ointment (Santyl) miconazole nitrate 2 % topical 1 applic topical BID #30 grams 10/20/23 11/03/23 11/03/23 Rx cream (Antifungal (miconazole)) midodrine 5 mg tablet 10 mg (2 x 5 mg) PO TID 30 days 10/20/23 11/03/23 11/03/23 Rx #180 tabs pantoprazole 40 mg tablet,delayed 40 mg PO BID 4 weeks #56 tabs 10/24/23 11/03/23 11/03/23 Rx release (Protonix) sucralfate 1 gram tablet (Carafate) 1 g PO BID 4 weeks #56 tabs 10/24/23 11/03/23 11/03/23 Rx alprazolam 0.25 mg tablet (Xanax) 0.25 mg PO TID 11/02/23 11/03/23 11/03/23 History hydralazine 25 mg tablet 25 mg PO TID 11/02/23 11/03/23 11/03/23 History Allergies Allergy/AdvReac Type Severity Reaction Status Date / Time latex Allergy Mild Blisters Verified 08/20/24 09:16 petrolatum,white Allergy Mild Blisters Verified 11/02/23 09:16 [From A and D Barrier] amlodipine Allergy Unknown Verified 11/02/23 09:16 PFSH Acute 2 PFSH: Medical History Hypertension ESRD (end stage renal disease) Acute exacerbation of congestive heart failure Bradycardia Hyperkalemia ESRD (end stage renal disease) on dialysis Acute hyperkalemia NSTEMI (non-ST elevated myocardial infarction) Chest pain Atrial fibrillation Moderate to severe mitral regurgitation Chronic pain Chronic GI bleeding Hiatal hernia High risk medication use Chronic anemia COPD (chronic obstructive pulmonary disease) Severe tobacco use disorder ESRD on hemodialysis History of renal dialysis Chronic kidney disease 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 Intermittent palpitations Hyperlipidemia XI (obstructive sleep apnea) DJD (degenerative joint disease) Atrial flutter PVD (peripheral vascular disease) Diabetes Surgical History 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 H/O aortic valve replacement with tissue graft H/O aortic valve replacement H/O foot surgery Family History Grandmother Diabetes Grandfather Diabetes Denies family history of CAD (coronary artery disease) Clotting disorder Dementia Chronic kidney disease (CKD) Suicide Anesthesia complication Bleeding disorder Lung disease Cancer Stroke Social History Smoking and tobacco/nicotine status: former use of tobacco/nicotine Alcohol intake: never Substance/Drug Use: never Lives independently: Yes (with girlfriend) Household members: significant other Marital status: Single service: No 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al status: disabled 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 Pets and animals: Yes Special araceli needs: No Agree to transfusion: Yes Vitals/I&O/Wt Last Vital Signs Temp 97.6 F 11/03/23 13:24 Pulse 101 H 11/03/23 13:24 Resp 22 H 11/03/23 13:24 BP 91/59 11/03/23 13:24 Pulse Ox 96 11/03/23 13:24 O2 Del Method Nasal Cannula 11/03/23 13:24 O2 Flow Rate 3 11/03/23 13:24 Weight last 48 hrs Weight 126.099 kg Physical Exam 2 Narrative: Patient is awake and alert Mild sign of fluid overload Lower extremity venous stasis dermatitis Hyperemia no active drainage noted Pedal edema, ankle edema Patient is on 2 L nasal cannula After chest pain GCS 15 Significant weakness of lower extremities bilaterally Upper extremities have good strength A-fib variable S1-S2 Epigastric hernia Data 11/03/23 13:38 11/03/23 13:38 Micro: Microbiology 11/03/23 13:42 Blood Culture - Preliminary Blood SPECIMEN COLLECTED 11/03/23 13:38 Blood Culture - Preliminary Blood SPECIMEN COLLECTED A&P Assessment and plan (1) Systolic and diastolic CHF, chronic: (2) Tachy-mariposa syndrome: (3) End stage renal disease on dialysis: (4) Macrocytic anemia: (5) Lower extremity cellulitis: Plan Nonpurulent cellulitis of lower extremities Generalized weakness and fatigue Patient has poor strength of lower extremities There is venous stasis I will keep patient on doxycycline He is not septic Will request physical therapy Patient is from [facility] Wednesday dialysis, neck session will be on Wednesday I did not see any focal deficits Patient has ability to lift his leg in the air for a few seconds, will request CT head without contrast Consistent carb diet Full code DVT prophylaxis SCDs Preserve ejection fraction heart failure, low blood pressure, MAP is stable for now Adjust antihypertensive regimen Attestations 2 Medical Necessity Statement*: Anticipating discharge within 48 hours Diagnoses Systolic and diastolic CHF, chronic I50.42 Tachy-mariposa syndrome I49.5 End stage renal disease on dialysis N18.6; Z99.2 Macrocytic anemia D53.9 Lower extremity cellulitis L03.119
--- NOTE | 2023-11-03 15:26 | USR_ITS ---
PROCEDURE INFORMATION: Exam: US Duplex Lower Extremity Veins, Bilateral Exam date and time: 11/03/2023 4:47 PM Age: 63 years old Clinical indication: Edema, localized; Lower extremity, bilateral; Additional info: Swelling TECHNIQUE: Imaging protocol: Real-time duplex ultrasound of the bilateral extremities with 2-D june scale, color Doppler flow and spectral waveform analysis including responses to compression and other maneuvers (when performed) with image documentation. Complete exam focused on the lower extremity veins. COMPARISON: US renal BI* [id number] 11/30/2019 3:07 PM FINDINGS: Right deep veins: Unremarkable. The common femoral, femoral, proximal profunda femoral and popliteal veins are patent without thrombus. Normal Doppler waveforms. Normal compressibility and/or augmentation response. Left deep veins: Unremarkable. The common femoral, femoral, proximal profunda femoral and popliteal veins are patent without thrombus. Normal Doppler waveforms. Normal compressibility and/or augmentation response. Superficial veins: Greater saphenous veins at the saphenofemoral junctions are patent bilaterally without thrombus. Soft tissues: Subcutaneous soft tissue edema seen within bilateral lower extremities, more pronounced in the lower legs than the thighs. No loculated collections. US/[place] [id number] IMPRESSION: 1. No evidence of deep vein thrombosis. 2. Subcutaneous soft tissue edema within bilateral lower extremities.
--- NOTE | 2023-11-03 15:27 | ECG_ITS ---
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 Measurements Intervals [place] Rate: 101 P: 0 [place]: 0 QRS: -65 QRSD: 157 T: 106 QT: 434 QTc: 563 Interpretive Statements Sinus rhythm with a first-degree AV block LEFT AXIS DEVIATION [QRS AXIS < -30] RIGHT BUNDLE BRANCH BLOCK [120+ ms QRS DURATION, UPRIGHT V1, 40+ ms S IN I/aVL/V4/V5/V6] POSSIBLE ANTERIOR MYOCARDIAL INFARCTION , OF INDETERMINATE AGE [30 ms Q WAVE IN V3/V4, OR R < 0.2 mV IN V4] CRITICAL TEST RESULT Compared to ECG 11/03/2023 13:51:22 No significant changes Electronically Signed On 11-04-2023 0:23:51 CDT by Bertin Tierney M.D. [id number]
[2023-11-03] MEDS: linezolid premix 600 MG/300 ML PREMIX 300 MG IV (15:49)
[2023-11-03] MEDS: amoxicillin-clav 875-125 mg Tablet 1 TAB PO (17:57)
[2023-11-03] MEDS: doxycycline 100 mg Tablet PO (17:57)
[2023-11-03 19:17] LABS: Vitamin B12 > 2000 pg/mL (232-1245)
--- NOTE | 2023-11-03 19:27 | ECG_ITS ---
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 Measurements Intervals [place] Rate: 100 P: 0 MD: 0 QRS: -59 QRSD: 155 T: 122 QT: 446 QTc: 576 Interpretive Statements UNCERTAIN REGULAR RHYTHM RIGHT BUNDLE BRANCH BLOCK [120+ ms QRS DURATION, UPRIGHT V1, 40+ ms S IN I/aVL/V4/V5/V6] INFERIOR MYOCARDIAL INFARCTION , PROBABLY OLD [40+ ms Q WAVE AND/OR ST/T ABNORMALITY IN II/aVF] ANTEROSEPTAL MYOCARDIAL INFARCTION , OF INDETERMINATE AGE [40+ ms Q WAVE IN V1-V4] CRITICAL TEST RESULT Compared to ECG 11/03/2023 15:49:16 Left-axis deviation no longer present Myocardial infarct finding still present Electronically Signed On 11-04-2023 0:24:35 CDT by Bertin Tierney M.D. [id number]
[2023-11-03 20:38] LABS: Troponin 5 6HR Delta -44.3 ng/L (0-12)
[2023-11-03 20:39] LABS: Troponin 5 6HR 348.7 ng/L (0-15)
[2023-11-04] VITALS (7 sets, daily range): BP systolic 99–118; BP diastolic 61–70; PULSE 73–101; RESP 16–20; TEMP 36.3–36.4; O2SAT 90–97; BMI 41.0
[2023-11-04 03:40] LABS: Acinetobacter baumannii Not Detected (NOT DETECT); Bacteroides fragilis Not Detected (NOT DETECT); CTX-M Not Detected (NOT DETECT); Citrobacter Not Detected (NOT DETECT); Cronobacter sakazakii Not Detected (NOT DETECT); Enterobacter cloacae complex Not Detected (NOT DETECT); Enterobacter non cloacae Not Detected (NOT DETECT); Fusobacterium necrophorum Not Detected (NOT DETECT); Fusobacterium nucleatum Not Detected (NOT DETECT); Haemophilus influenzae Not Detected (NOT DETECT); IMP Resistance Gene Not Detected (NOT DETECT); KPC Resistance Gene Not Detected (NOT DETECT); Klebsiella pneumoniae group Detected (NOT DETECT); Morganella morganii Not Detected (NOT DETECT); NDM Resistance Gene Not Detected (NOT DETECT); Neisseria meningitidis Not Detected (NOT DETECT); OXA Resistance Gene Not Detected (NOT DETECT); Pan Candida Not Detected (NOT DETECT); Pan Gram-Positive Not Detected (NOT DETECT); Proteus mirabilis Not Detected (NOT DETECT); Pseudomonas aeruginosa Not Detected (NOT DETECT); Salmonella Not Detected (NOT DETECT); Serratia Not Detected (NOT DETECT); Serratia marcescens Not Detected (NOT DETECT); Stenotrophomonas maltophilia Not Detected (NOT DETECT); VIM Resistance Gene Not Detected (NOT DETECT)
[2023-11-04] MEDS: ipratropium-albuterol 3 mL Neb INHALATION ×2 (04:40→08:13)
[2023-11-04 05:01] LABS: Basophils # 0.1 10^3/uL (0.0-0.1); Basophils % 1.3 %; Eosinophils # 0.1 10^3/uL (0.0-0.8); Eosinophils % 3.4 %; Hematocrit 27.5 % (37-53); Mean Corpuscular HGB Conc 31.3 g/dL (30-55); Mean Corpuscular Hemoglobin 31.3 pg (27-33); Mean Platelet Volume 11.3 fL (7.4-10.4); Monocytes # 0.5 10^3/uL (0.2-0.9); Monocytes % 11.9 %; Neutrophils % 57.1 %; Nucleated Red Blood Cells % 0 %; Platelet Count 84 10^3/cmm (157-399); Red Blood Count 2.75 10^6/uL (3.85-5.65); Red Cell Distribution Width 22.5 % (12.1-15.1); White Blood Count 3.85 10^3/uL (3.29-11.43)
[2023-11-04 05:19] LABS: Anion Gap 15.6 (5-19); Blood Urea Nitrogen 26 mg/dL (8-23); C Reactive Protein 71.1 mg/L (0.0-4.9); Calcium 8.3 mg/dL (8.5-10.5); Carbon Dioxide 30 mmol/L (22-29); Chloride 93 mmol/L (98-107); Creatinine Clr Calc Pharmacy 23.1563; Glomerular Filtration Rate 13.7 mL/min (90-130); Glucose 82 mg/dL (65-115); Magnesium 1.9 mg/dL (1.7-2.3); Osmolality Calculated 284 mOsm/kg (285-295); Phosphorus 4.4 mg/dL (2.5-4.5); Potassium 3.6 mmol/L (3.5-5.1); Sodium 135 mmol/L (136-145)
[2023-11-04 06:34] LABS: Glucose Point of Care 86 mg/dL (70-110)
--- NOTE | 2023-11-04 09:02 | PM.DCS ---
Discharge Providers Date of Admission: 11/03/23 15:53 Date of Discharge: November 04, 2023 Attending Provider at Admission: Patito Michael MD Attending Provider at Discharge: Patito Michael MD Primary Care Provider: Sulma Zavala MD Diagnoses at Discharge Discharge Diagnosis (1) Systolic and diastolic CHF, chronic: Status: Acute (2) Tachy-mariposa syndrome: Status: Acute (3) End stage renal disease on dialysis: Status: Acute (4) Macrocytic anemia: Status: Acute (5) Lower extremity cellulitis: Status: Acute Reason for Visit Reason for Visit: Hypotensive Hospital Course Hospital Course 63-year-old male with multiple comorbid conditions,'s preserved ejection fraction heart failure, A-fib not on anticoagulation secondary to anemia, end-stage renal disease Wednesday, venous stasis dermatitis, history of endocarditis, recent GI bleed requiring 1 unit PRBC EGD showed gastritis presented to the hospital for low blood pressure and lower extremity weakness. Patient is stating that he was using a walker but for the last 6 weeks he has been dependent on a wheelchair and Walt lift. On examination patient had nonpurulent cellulitis of lower extremity, he was put on oral antibiotics after getting IV antibiotics in the ER. No signs of sepsis. No signs of DVT. CT head unremarkable. B12 level normal. It seems to be gradual physical deconditioning because of multiple comorbid conditions and patient's debilitating conditions. At this point would recommend topical antibiotics for the legs along Augmentin/doxycycline. Patient is already on atorvastatin and low-dose aspirin which I would continue for now. Patient also has resting tremors for which he takes Sinemet. Discontinue antihypertensive regimen, continue midodrine. Physical Exam Narrative: Awake and alert I do not see any focal deficit Lower extremity weakness 1/5 Nonpurulent cellulitis of lower extremities Bilateral venous stasis dermatitis Onychomycosis Nails are being sloughed off from their base Awake and alert Currently on 2 L which she is using at nursing as well Discharge Data Studies Completed and Pending Completed Studies During Hospitalization Category Date Time Status XR chest 1V portable [id number] Stat Exams 11/03/23 14:05 [place] [id number] Stat Ultrasound 11/03/23 15:26 Completed Pending at discharge Category Date Time Status Blood Culture Stat Lab 11/03/23 13:42 Results Radiology Impressions Chest X-Ray 11/03/23 14:05 IMPRESSION: 1. Interval development of mild to moderate pulmonary edema since 10/11/2023. 2. Very tiny bilateral pleural effusions. 3. Right-sided hemodialysis catheter. 4. Enlarging heart silhouette. Venous Duplex 11/03/23 15:26 IMPRESSION: 1. No evidence of deep vein thrombosis. 2. Subcutaneous soft tissue edema within bilateral lower extremities. Laboratory Results WBC 3.85 10^3/uL (3.29-11.43) 11/04/23 04:29 RBC 2.75 10^6/uL (3.85-5.65) L 11/04/23 04:29 Hgb 8.60 g/dL (11.27-16.99) L 11/04/23 04:29 Hct 27.5 % (37-53) L 11/04/23 04:29 MCV 100.0 fl (82-101) 11/04/23 04: MCH 31.3 pg (27-33) 11/04/23 04: MCHC 31.3 g/dL (30-55) 11/04/23 04:29 RDW 22.5 % (12.1-15.1) H 11/04/23 04:29 Plt Count 84 10^3/cmm (157-399) L 11/04/23 04:29 MPV 11.3 fL (7.4-10.4) H 11/04/23 04:29 Neut % (Auto) 57.1 % 11/04/23 04: Lymph % (Auto) 26.0 % 11/04/23 04:29 [place] % (Auto) 11.9 % 11/04/23 04:29 Eos % (Auto) 3.4 % 11/04/23 04:29 Baso % (Auto) 1.3 % 11/04/23 04:29 Neut # (Auto) 2.20 10^3/uL (1.8-7.7) 11/04/23 04: Lymph # (Auto) 1.0 10^3/uL (0.8-4.8) 11/04/23 04:29 [place] # (Auto) 0.5 10^3/uL (0.2-0.9) 11/04/23 04:29 Eos # (Auto) 0.1 10^3/uL (0.0-0.8) 11/04/23 04:29 Baso # (Auto) 0.1 10^3/uL (0.0-0.1) 11/04/23 04:29 Nucleated RBC % (auto) 0 % 11/04/23 04:29 Nucleated RBCs # 0.0 /100WBC 11/04/23 04:29 ESR 6 mm/hr (0-10) 11/03/23 13:38 Sodium 135 mmol/L (136-145) L 11/04/23 04:29 Potassium 3.6 mmol/L (3.5-5.1) 11/04/23 04:29 Chloride 93 mmol/L (98-107) L 11/04/23 04:29 Carbon Dioxide 30 mmol/L (22-29) H 11/04/23 04:29 Anion Gap 15.6 (5-19) 11/04/23 04:29 BUN 26 mg/dL (8-23) H 11/04/23 04:29 Creatinine 4.4 mg/dL (0.7-1.2) H 11/04/23 04:29 GFR Calculation 13.7 mL/min (90-130) L 11/04/23 04:29 Glucose 82 mg/dL (65-115) 11/04/23 04:29 POC Glucose 86 mg/dL (70-110) 11/04/23 06:22 Calculated Osmolality 284 mOsm/kg (285-295) L 11/04/23 04:29 Lactic Acid 1.5 mmol/L (0.5-2.2) 11/03/23 13:38 Calcium 8.3 mg/dL (8.5-10.5) L 11/04/23 04:29 Phosphorus 4.4 mg/dL (2.5-4.5) 11/04/23 04:29 Magnesium 1.9 mg/dL (1.7-2.3) 11/04/23 04:29 Total Bilirubin 2.1 mg/dL (0.15-1.2) H 11/03/23 13:38 AST 48 U/L (0-40) H 11/03/23 13:38 ALT 6 U/L (0-41) 11/03/23 13:38 Alkaline Phosphatase 416 U/L (40-130) H 11/03/23 13:38 Troponin T Baseline 393 ng/L (0-15) H* 11/03/23 13:38 Troponin T 120 Minute 386.0 ng/L (0-15) H 11/03/23 15:27 Delta Troponin T -7.0 ABS# (0-10) L 11/03/23 15:27 Troponin T Hi Sens 6Hr 348.7 ng/L (0-15) H 11/03/23 19:55 Troponin T Hi Sens 6Hr Delta -44.3 ng/L (0-12) L 11/03/23 19:55 C-Reactive Protein 71.1 mg/L (0.0-4.9) H 11/04/23 04:29 Total Protein 5.8 g/dL (6.6-8.7) L 11/03/23 13:38 Albumin 3.5 g/dL (3.5-5.2) 11/03/23 13:38 Globulin 2.3 g/dL (1.3-4.6) 11/03/23 13:38 Vitamin B12 > 2000 pg/mL (232-1245) H 11/03/23 15:27 Vitals Last Vital Signs Temp 97.4 F L 11/04/23 08:00 Pulse 101 H 11/04/23 08:13 Resp 20 H 11/04/23 08:13 BP 118/70 11/04/23 08:00 Pulse Ox 92 11/04/23 08:13 O2 Del Method Nasal Cannula 11/04/23 08:13 O2 Flow Rate 2 11/04/23 08:13 Discharge Plan Discharge Patient Disposition: Xfer SNF Condition: Stable Prescriptions: New doxycycline monohydrate 100 mg Tablet 100 mg PO BID Qty: 10 0RF amoxicillin-pot clavulanate 875-125 mg Tablet 1 tab PO BID Qty: 10 0RF Continued tramadol 50 mg tablet 50 mg PO Q6H PRN (Reason: Pain, Mild) alprazolam [Xanax] 0.25 mg tablet 0.25 mg PO TID albuterol sulfate [Ventolin HFA] 90 mcg/actuation HFA aerosol inhaler 1 inh inhalation QID PRN (Reason: shortness of breath or wheezing) Qty: 8.5 3RF budesonide 0.5 mg/2 mL suspension for nebulization 0.5 mg inhalation BID Qty: 60 3RF budesonide-formoterol [Symbicort] 80-4.5 mcg/actuation HFA aerosol inhaler 2 puff INHALATION BID PRN (Reason: unknown) Qty: 10.2 2RF Lexapro 10 mg tablet 10 mg PO QAM Qty: 90 1RF ipratropium-albuterol 0.5 mg-3 mg(2.5 mg base)/3 mL solution for nebulization 3 ml INHALATION Q6H Qty: 180 3RF ropinirole 2 mg tablet 2 mg PO BEDTIME Qty: 90 1RF nitroglycerin 2.5 mg capsule, extended release 2.5 mg PO DAILY PRN (Reason: chest tightness) Qty: 30 0RF fluticasone propionate 50 mcg/actuation spray,suspension 2 spray intranasal DAILY PRN (Reason: Allergy Symptoms) Qty: 16 1RF (DME) Diabetic shoes See Rx Instructions .ROUTE .MEDSUPPLY Qty: 1 0RF Rx Instructions: With 3 pairs of inserts to the shoe guys (DME) four point rollaid with chair See Rx Instructions .Route .MEDSUPPLY Qty: 1 0RF Rx Instructions: As directed ([facility]) nebulizer See Rx Instructions .Route .MEDSUPPLY Qty: 1 0RF Rx Instructions: As directed ([facility]) nebulizer supplies (hose, mask,ect) See Rx Instructions .Route .MEDSUPPLY Qty: 1 1RF Rx Instructions: As directed ([facility]) oxygen concentrator See Rx Instructions .Route .MEDSUPPLY Qty: 1 0RF Rx Instructions: As directed (DME) shower chair See Rx Instructions .Route .MEDSUPPLY Qty: 1 1RF Rx Instructions: As directed (DME) toiler riser with handles See Rx Instructions .Route .MEDSUPPLY Qty: 1 0RF Rx Instructions: As directed ([facility]) [place] See Rx Instructions .Route .MEDSUPPLY Qty: 1 0RF Rx Instructions: As directed ([facility]) Crutches See Rx Instructions .Route .MEDSUPPLY Qty: 1 0RF Rx Instructions: As directed HOME acetaminophen 325 mg Tablet 650 mg PO Q6H PRN (Reason: PAIN OR INCREASED TEMP) ondansetron HCl 8 mg tablet 8 mg PO Q6H PRN (Reason: Nausea) pantoprazole [Protonix] 40 mg tablet,delayed release (DR/EC) 40 mg PO BID 28 Days Qty: 56 0RF sucralfate [Carafate] 1 gram tablet 1 g PO BID 28 Days Qty: 56 0RF oxycodone-acetaminophen 5-325 mg tablet 0.5 - 1 tab PO Q4H PRN (Reason: Pain) cyanocobalamin (vitamin B-12) [Vitamin B-12] 1,000 mcg tablet 1,000 mcg PO DAILY RenaPlex-D 800 mcg-12.5 mg -2,000 unit tablet 1 tab PO BEDTIME tamsulosin [Flomax] 0.4 mg Capsule 0.4 mg PO BEDTIME bisacodyl 5 mg Tablet 10 mg PO DAILY PRN (Reason: Constipation) lanthanum [Fosrenol] 500 mg Tablet,Chewable 500 mg PO TID Rx Instructions: administer with food; chew thoroughly before swallowing aspirin 81 mg Tablet,Delayed Release (Dr/Ec) 81 mg PO DAILY 30 Days Qty: 30 0RF atorvastatin 40 mg Tablet 40 mg PO BEDTIME 30 Days Qty: 30 0RF miconazole nitrate [Antifungal (miconazole)] 2 % cream 1 applic topical BID Qty: 30 0RF carbidopa-levodopa [Sinemet] 10-100 mg tablet 1 tab PO TID 30 Days Qty: 90 0RF Rx Instructions: start 10/21/2023 Santyl 250 unit/gram ointment 1 applic topical DAILY Qty: 30 0RF Rx Instructions: START ONLY AFTER PURULENCE BEHIND THE HEAD OF PENIS RESOLVES Changed midodrine 5 mg Tablet 10 mg PO TID PRN (Reason: Blood pressure below 100/90) 30 Days Qty: 180 0RF Discontinued hydralazine 25 mg tablet 25 mg PO TID Rx Instructions: Hold if BP less than 120/80. Discharge Orders: Discharge Order (Routine); Ordered 11/04/23 Ordered By: Patito Michael Referrals: [facility] [Outside] Sulma Zavala MD [Primary Care Provider] - Discharge Attestations Time Spent in Discharge Care*: greater than 30 min Status at Discharge: Cognitive status at discharge: cognitively intact, Behavioral status at discharge: cooperative, Quality Metrics Clinical Quality Measures [ No reported AMI, CVA or VTE this stay] Coding Level of Care Code Acute Code for Chg Fwd Diagnoses Systolic and diastolic CHF, chronic I50.42 Tachy-mariposa syndrome I49.5 End stage renal disease on dialysis N18.6; Z99.2 Macrocytic anemia D53.9 Lower extremity cellulitis L03.119
--- NOTE | 2023-11-04 09:03 | CT_ITS ---
WS: [id number] CT HEAD NONCONTRAST HISTORY: leg weakness TECHNIQUE: Contiguous axial imaging performed through the brain in 2.5 mm imaging. Bone and soft tiss ue windows. Sagittal and coronal reformats reviewed. All CT scans at [facility] use at least one of these dose optimization techniques: automated exposure control; mA and/or kV adjustment per pa tient size (includes targeted exams where dose is matched to clinical indication); or iterative recon struction. DLP: 1105.58 mGy.cm COMPARISON: 01/09/2022 No acute intracranial hemorrhage, midline shift or mass effect. Mild atrophy and mild small vessel disease. No sulcal effacement or acute infarct. Ventricles: Normal size with no hydrocephalus. No inferior displacement the cerebellar tonsils. Paranasal sinuses: As visualized are clear. Mastoid air cells: Well pneumatized. Calvarium and scalp: Skull is intact with no soft tissue edema or swelling. CT/CT head wo con* [id number] IMPRESSION: 1. No acute intracranial hemorrhage or edema. 2. Mild atrophy and small vessel disease. No acute infarct.
[2023-11-04] MEDS: sennosides-docusate Tablet 1 TAB PO (09:35)
[2023-11-04] MEDS: doxycycline 100 mg Tablet PO (09:35)
[2023-11-04] MEDS: amoxicillin-clav 875-125 mg Tablet 1 TAB PO (09:35)
[2023-11-04] MEDS: pantoprazole DR 40 mg Tablet PO (09:35)
[2023-11-04 11:50] LABS: Glucose Point of Care 100 mg/dL (70-110)
[2023-11-04] MEDS: oxyCODONE-APAP 5-325 mg Tablet 1 TAB PO (12:17)
--- NOTE | 2023-11-04 13:17 | PC.NURSE ---
Discharge orders were put in by Dr. Michael and patient was to discharge after Cat Scan report and after Physical Therapy evaluation. This nurse communicated that with Enma Cabrera and she said to update her on the plan when everything was done . 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 This nurse did get patient down to CT before discharge and Enma Cabrera voalted me that per Dr. Michael patient was okay to leave before CT and PT. Patient was already in CT and able to complete that. Nurse gave oral report to transfer staff from [facility]. Patient's CT results are in EMR. Patient discharged back to [facility]
== END 2023-11-04 13:23 | disposition skilled nursing facility (03) ==
LOC: ER 14:49 → MEDSURG 16:52
PROVIDERS: Admitting Provider Internal Medicine; Emergency Provider Emergency Medicine; PCP Family Medicine; Visit Provider Internal Medicine
DX: I49.5 Sick sinus syndrome (principal); E11.22 Type 2 diabetes mellitus with diabetic chronic kidney disease; I50.42 Chronic combined systolic (congestive) and diastolic (congestive) heart failure; I12.9 Hypertensive chronic kidney disease with stage 1 through stage 4 chronic kidney disease, or unspecified chronic kidney disease; N18.6 End stage renal disease; Z99.2 Dependence on renal dialysis; D53.9 Nutritional anemia, unspecified; L03.119 Cellulitis of unspecified part of limb; Z79.01 Long term (current) use of anticoagulants; I48.91 Unspecified atrial fibrillation; G47.33 Obstructive sleep apnea (adult) (pediatric); E78.5 Hyperlipidemia, unspecified
CPT/HCPCS: 36415; 36416; 70450; 71045; 80048; 80053; 82607; 82962; 83605; 83735; 84100; 84484; 85025; 85651; 86140; 87040; 87077; 87186; 93005; 93970; 94640; 96365; 96367; 99285; G0378; J0692; J2020

== ENCOUNTER 2023-11-14 15:16 | Inpatient (IN) | payer OTHER, SELFPAY ==
[2023-11-14 15:28] VITALS: BP 127/74; PULSE 105; RESP 18; TEMP 36.8; O2SAT 98
--- NOTE | 2023-11-14 15:42 | ED_ITS ---
HPI - GI Bleed 2 General: Chief complaint: GI Bleed Stated complaint: bloody stool; AMS Time Seen by Provider: 11/14/23 15:22 Source: patient and EMS Mode of arrival: EMS Limitations: no limitations History of Present Illness: 63-year-old male has had history of GI b leed in the past he also has history of end-stage renal disease is on dialysis states that he started having black tarry stool today along with some generalized weakness. He denies any pain or fever he is currently diagnosed with COVID as well. Denies any vomiting or diarrhea Associated symptoms: Denies abdominal pain, chills, fever(s), headache(s), nausea, rash or vomiting Related Data Home Medications Medication Instructions Recorded Confirmed oxycodone-acetaminophen 5 mg-325 0.5 - 1 tab PO Q4H PRN Pain 07/15/22 11/03/23 mg tablet cyanocobalamin (vitamin B-12) 1,000 mcg PO DAILY 08/25/22 11/03/23 1,000 mcg tablet (Vitamin B-12) tramadol 50 mg tablet 50 mg PO Q6H PRN Pain, Mild 12/29/22 11/03/23 vit B,C-folic ac 800 mcg-zinc 12.5 1 tab PO BEDTIME 05/15/23 11/03/23 mg-selen-D3 2,000 unit-vit E tablet (RenaPlex-D) acetaminophen 325 mg tablet 650 mg PO Q6H PRN PAIN OR 08/16/23 11/03/23 INCREASED TEMP ondansetron HCl 8 mg tablet 8 mg PO Q6H PRN Nausea 08/16/23 11/03/23 bisacodyl 5 mg tablet 10 mg PO DAILY PRN Constipation 10/12/23 11/03/23 lanthanum 500 mg chewable tablet 500 mg PO TID 10/12/23 11/03/23 (Fosrenol) tamsulosin 0.4 mg capsule (Flomax) 0.4 mg PO BEDTIME 10/12/23 11/03/23 alprazolam 0.25 mg tablet (Xanax) 0.25 mg PO TID 11/02/23 11/03/23 Previous Rx's Medication Instructions Recorded Cruthes #1 ea 05/11/23 albuterol sulfate 90 mcg/actuation 1 inh inhalation QID PRN shortness 06/01/23 aerosol inhaler (Ventolin HFA) of breath or wheezing #8.5 grams budesonide 0.5 mg/2 mL suspension 0.5 mg (2 mL) inhalation BID #60 mL 06/01/23 for nebulization budesonide-formoterol HFA 80 2 puff inhalation BID PRN unknown 06/01/23 mcg-4.5 mcg/actuation aerosol #10.2 grams inhaler (Symbicort) escitalopram oxalate 10 mg tablet 10 mg PO QAM #90 tabs 06/01/23 (Lexapro) fluticasone propionate 50 2 spray intranasal DAILY PRN 06/01/23 mcg/actuation nasal Allergy Symptoms #16 grams spray,suspension ipratropium 0.5 mg-albuterol 3 mg 3 ml inhalation Q6H Shortness Of 06/01/23 (2.5 mg base)/3 mL nebulization Breath #180 mL soln nitroglycerin 2.5 mg 2.5 mg PO DAILY PRN chest 06/01/23 capsule,extended release tightness #30 caps ropinirole 2 mg tablet 2 mg PO BEDTIME #90 tabs 06/01/23 Diabetic shoes #1 ea 06/04/23 four point rollaid with chair #1 ea 06/04/23 nebulizer #1 ea 06/04/23 nebulizer supplies (hose, mask,ect) #1 ea 06/04/23 oxygen concentrator #1 ea 06/04/23 shower chair #1 ea 06/04/23 toiler riser with handles #1 ea 06/04/23 [place] #1 ea 06/17/23 aspirin 81 mg tablet,delayed 81 mg PO DAILY 30 days #30 tabs 10/20/23 release atorvastatin 40 mg tablet 40 mg PO BEDTIME 30 days #30 tabs 10/20/23 carbidopa 10 mg-levodopa 100 mg 1 tab PO TID 30 days #90 tabs 10/20/23 tablet (Sinemet) collagenase clostridium histo. 250 1 applic topical DAILY #30 grams 10/20/23 unit/gram topical ointment (Santyl) miconazole nitrate 2 % topical 1 applic topical BID #30 grams 10/20/23 cream (Antifungal (miconazole)) pantoprazole 40 mg tablet,delayed 40 mg PO BID 4 weeks #56 tabs 10/24/23 release (Protonix) sucralfate 1 gram tablet (Carafate) 1 g PO BID 4 weeks #56 tabs 10/24/23 amoxicillin 875 mg-potassium 1 tab PO BID #10 tabs 11/04/23 clavulanate 125 mg tablet doxycycline monohydrate 100 mg 100 mg PO BID #10 tabs 11/04/23 tablet midodrine 5 mg tablet 10 mg (2 x 5 mg) PO TID PRN Blood 11/04/23 pressure below 100/90 30 days #180 tabs Allergies Allergy/AdvReac Type Severity Reaction Status Date / Time latex Allergy Mild Blisters Verified 11/02/23 09:16 petrolatum,white Allergy Mild Blisters Verified 11/02/23 09:16 [From A and D Barrier] amlodipine Allergy Unknown Verified 11/02/23 09:16 Review of Systems 2 Const: Denies: fever(s), chills, body aches or change in appetite ENMT: Denies: throat pain or dental pain Card: Denies: chest pain Resp: Denies: dyspnea GI: Reports: hematochezia and melena; Denies: abdominal pain, nausea, vomiting or diarrhea Musc: Denies: neck pain or back pain Skin/Breast: Denies: rash Neuro: Denies: headache(s) PFSH ED 2 PFSH: Medical History Anasarca End stage renal disease on dialysis Lower extremity cellulitis Weakness Systolic and diastolic CHF, chronic End stage renal disease on dialysis Tachy-mariposa syndrome Macrocytic anemia Hypertension ESRD (end stage renal disease) Acute exacerbation of congestive heart failure Bradycardia Hyperkalemia ESRD (end stage renal disease) on dialysis Acute hyperkalemia NSTEMI (non-ST elevated myocardial infarction) Chest pain Atrial fibrillation Moderate to severe mitral regurgitation Chronic pain Chronic GI bleeding [place] High risk medication use Chronic anemia COPD (chronic obstructive pulmonary disease) Severe tobacco use disorder ESRD on hemodialysis History of renal dialysis Chronic kidney disease 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 Intermittent palpitations Hyperlipidemia XI (obstructive sleep apnea) DJD (degenerative joint disease) Atrial flutter PVD (peripheral vascular disease) Diabetes Surgical History 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 H/O aortic valve replacement with tissue graft H/O aortic valve replacement H/O foot surgery Family History Grandmother Diabetes Grandfather Diabetes Denies family history of CAD (coronary artery disease) Clotting disorder Dementia Chronic kidney disease (CKD) Suicide Anesthesia complication Bleeding disorder Lung disease Cancer Stroke Social History Smoking and tobacco/nicotine status: former use of tobacco/nicotine Alcohol intake: never Substance/Drug Use: never Lives independently: Yes (with girlfriend) Household members: significant other Marital status: Single service: No 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al status: disabled 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 Pets and animals: Yes Special araceli needs: No Agree to transfusion: Yes Physical Exam 2 Const: COMMON NORMALS: no acute distress, patient oriented x3 and healthy appearing HENMT: COMMON NORMALS: normocephalic and atraumatic HEAD & SCALP: n ormocephalic and atraumatic Neck/C-Spine: COMMON NORMALS: full ROM and supple Chest: COMMONS NORMALS: normal inspection of the chest and normal palpation of entire chest wall Resp: COMMON NORMALS: normal respiratory effort, No retractions, No use of accessory muscles and clear to auscultation bilaterally AUSCULTATION: clear to auscultation bilaterally Cardio: COMMON NORMALS: regular rate, regular rhythm and No murmurs present (Cardio) RATE: regular rate RHYTHM: regular rhythm GI: COMMON NORMALS: Normal to inspection, nondistended, normoactive bowel sounds present, Soft to palpation, non-tender and no masses PALPATION: Yes Soft to palpation : OTHER: Rectal exam shows maroon stool that is Hemoccult positive Extremity: COMMON NORMALS: normal to inspection and full ROM Neuro: COMMON NORMALS: patient oriented x3, moves all extremities and no focal motor deficits Psych: COMMON NORMALS: mental status grossly normal, Normal thought process present and cooperative THOUGHT PROCESS: Normal thought process present Skin: COMMON NORMALS: no rashes or lesions noted and no wounds GENERAL SKIN EXAM: no rashes or lesions noted Course 2 Vital Signs: Vital signs: Vital Signs Temperature 98.2 F 11/14/23 15:28 Pulse Rate 105 H 11/14/23 15:28 Respiratory Rate 18 11/14/23 15:28 Blood Pressure 127/74 11/14/23 15:28 Pulse Oximetry 98 11/14/23 15:28 Oxygen Delivery Me thod Nasal Cannula 11/14/23 15:28 Oxygen Flow Rate 3 11/14/23 15:28 MDM - GI Bleed Medical Decision Making Patient presents here with a GI bleed his hemoglobin here is 7.8 will transfuse him 1 unit. Did give him Protonix I spoke to the hospitalist will admit at this time. Medical Records I reviewed the patient's medical records. Lab Data I reviewed the patient's lab results. 11/14/23 15:47 11/14/23 15:47 Laboratory Results WBC 5.04 10^3/uL (3.29-11.43) 11/14/23 15:47 RBC 2.46 10^6/uL (3.85-5.65) L 11/14/23 15:47 Hgb 7.80 g/dL (11.27-16.99) L 11/14/23 15:47 Hct 26.1 % (37-53) L 11/14/23 15:47 MCV 106.1 fl (82-101) H 11/14/23 15:47 MCH 31.7 pg (27-33) 11/14/23 15:47 MCHC 29.9 g/dL (30-55) L 11/14/23 15:47 RDW 24.8 % (12.1-15.1) H 11/14/23 15:47 Plt Count 89 10^3/cmm (157-399) L 11/14/23 15:47 MPV 11.1 fL (7.4-10.4) H 11/14/23 15:47 Neut % (Auto) 71.6 % 11/14/23 15:47 Lymph % (Auto) 15.3 % 11/14/23 15:47 Ross % (Auto) 10.5 % 11/14/23 15:47 Eos % (Auto) 1.4 % 11/14/23 15:47 Baso % (Auto) 0.6 % 11/14/23 15:47 Neut # (Auto) 3.61 10^3/uL (1.8-7.7) 11/14/23 15:47 Lymph # (Auto) 0.8 10^3/uL (0.8-4.8) 11/14/23 15:47 Ross # (Auto) 0.5 10^3/uL (0.2-0.9) 11/14/23 15:47 Eos # (Auto) 0.1 10^3/uL (0.0-0.8) 11/14/23 15:47 Baso # (Auto) 0.0 10^3/uL (0.0-0.1) 11/14/23 15:47 Nucleated RBC % (auto) 0 % 11/14/23 15:47 Nucleated RBCs # 0.0 /100WBC 11/14/23 15:47 PT 17.70 SECONDS (12.1-14.9) H 11/14/23 15:47 INR 1.41 (0.8-1.2) H 11/14/23 15:47 Sodium 138 mmol/L (136-145) 11/14/23 15:47 Potassium 3.3 mmol/L (3.5-5.1) L 11/14/23 15:47 Chloride 93 mmol/L (98-107) L 11/14/23 15:47 Carbon Dioxide 31 mmol/L (22-29) H 11/14/23 15:47 Anion Gap 17.3 (5-19) 11/14/23 15:47 BUN 18 mg/dL (8-23) 11/14/23 15:47 Creatinine 3.8 mg/dL (0.7-1.2) H 11/14/23 15:47 GFR Calculation 16.3 mL/min (90-130) L 11/14/23 15:47 Glucose 131 mg/dL (65-115) H 11/14/23 15:47 Calculated Osmolality 290 mOsm/kg (285-295) 11/14/23 15:47 Calcium 9.0 mg/dL (8.5-10.5) 11/14/23 15:47 Total Bilirubin 3.2 mg/dL (0.15-1.2) H 11/14/23 15:47 AST 31 U/L (0-40) 11/14/23 15:47 ALT < 5 U/L (0-41) 11/14/23 15:47 Alkaline Phosphatase 230 U/L (40-130) H 11/14/23 15:47 Total Protein 5.8 g/dL (6.6-8.7) L 11/14/23 15:47 Albumin 3.3 g/dL (3.5-5.2) L 11/14/23 15:47 Globulin 2.5 g/dL (1.3-4.6) 11/14/23 15:47 Blood Type O Positive 11/14/23 16:30 Rho(D) Type Rh positive 11/14/23 16:30 Crossmatch See Detail 11/14/23 16:30 All radiology interpretation(s) finalized by discharge EKG Data EKG 1: I personally reviewed and interpreted this EKG as follows: EKG interpretation date: 11/14/23 EKG interpretation time: 15:27 Interpretation: sinus tach hr [address] elevation abnormalities qrs 144 qtc 475 Discharge Plan Discharge Patient Disposition: Admitted As Inpatient Clinical Impression: GI bleed Condition: Stable Prescriptions: No Action tramadol 50 mg tablet 50 mg PO Q6H PRN (Reason: Pain, Mild) alprazolam [Xanax] 0.25 mg tablet 0.25 mg PO TID albuterol sulfate [Ventolin HFA] 90 mcg/actuation HFA aerosol inhaler 1 inh inhalation QID PRN (Reason: shortness of breath or wheezing) Qty: 8.5 3RF budesonide 0.5 mg/2 mL suspension for nebulization 0.5 mg inhalation BID Qty: 60 3RF budesonide-formoterol [Symbicort] 80-4.5 mcg/actuation HFA aerosol inhaler 2 puff INHALATION BID PRN (Reason: unknown) Qty: 10.2 2RF Lexapro 10 mg tablet 10 mg PO QAM Qty: 90 1RF ipratropium-albuterol 0.5 mg-3 mg(2.5 mg base)/3 mL solution for nebulization 3 ml INHALATION Q6H Qty: 180 3RF ropinirole 2 mg tablet 2 mg PO BEDTIME Qty: 90 1RF nitroglycerin 2.5 mg capsule, extended release 2.5 mg PO DAILY PRN (Reason: chest tightness) Qty: 30 0RF fluticasone propionate 50 mcg/actuation spray,suspension 2 spray intranasal DAILY PRN (Reason: Allergy Symptoms) Qty: 16 1RF (DME) Diabetic shoes See Rx Instructions .ROUTE .MEDSUPPLY Qty: 1 0RF Rx Instructions: With 3 pairs of inserts to the shoe guys (DME) four point rollaid with chair See Rx Instructions .Route .MEDSUPPLY Qty: 1 0RF Rx Instructions: As directed ([facility]) nebulizer See Rx Instructions .Route .MEDSUPPLY Qty: 1 0RF Rx Instructions: As directed ([facility]) nebulizer supplies (hose, mask,ect) See Rx Instructions .Route .MEDSUPPLY Qty: 1 1RF Rx Instructions: As directed ([facility]) oxygen concentrator See Rx Instructions .Route .MEDSUPPLY Qty: 1 0RF Rx Instructions: As directed ([facility]) shower chair See Rx Instructions .Route .MEDSUPPLY Qty: 1 1RF Rx Instructions: As directed ([facility]) toiler riser with handles See Rx Instructions .Route .MEDSUPPLY Qty: 1 0RF Rx Instructions: As directed ([facility]) [place] See Rx Instructions .Route .MEDSUPPLY Qty: 1 0RF Rx Instructions: As directed ([facility]) Crutches See Rx Instructions .Route .MEDSUPPLY Qty: 1 0RF Rx Instructions: As directed HOME acetaminophen 325 mg Tablet 650 mg PO Q6H PRN (Reason: PAIN OR INCREASED TEMP) ondansetron HCl 8 mg tablet 8 mg PO Q6H PRN (Reason: Nausea) pantoprazole [Protonix] 40 mg tablet,delayed release (DR/EC) 40 mg PO BID 28 Days Qty: 56 0RF sucralfate [Carafate] 1 gram tablet 1 g PO BID 28 Days Qty: 56 0RF doxycycline monohydrate 100 mg Tablet 100 mg PO BID Qty: 10 0RF amoxicillin-pot clavulanate 875-125 mg Tablet 1 tab PO BID Qty: 10 0RF midodrine 5 mg Tablet 10 mg PO TID PRN (Reason: Blood pressure below 100/90) 30 Days Qty: 180 0RF oxycodone-acetaminophen 5-325 mg tablet 0.5 - 1 tab PO Q4H PRN (Reason: Pain) cyanocobalamin (vitamin B-12) [Vitamin B-12] 1,000 mcg tablet 1,000 mcg PO DAILY RenaPlex-D 800 mcg-12.5 mg -2,000 unit tablet 1 tab PO BEDTIME tamsulosin [Flomax] 0.4 mg Capsule 0.4 mg PO BEDTIME bisacodyl 5 mg Tablet 10 mg PO DAILY PRN (Reason: Constipation) lanthanum [Fosrenol] 500 mg Tablet,Chewable 500 mg PO TID Rx Instructions: administer with food; chew thoroughly before swallowing aspirin 81 mg Tablet,Delayed Release (Dr/Ec) 81 mg PO DAILY 30 Days Qty: 30 0RF atorvastatin 40 mg Tablet 40 mg PO BEDTIME 30 Days Qty: 30 0RF miconazole nitrate [Antifungal (miconazole)] 2 % cream 1 applic topical BID Qty: 30 0RF carbidopa-levodopa [Sinemet] 10-100 mg tablet 1 tab PO TID 30 Days Qty: 90 0RF Rx Instructions: start 10/21/2023 Santyl 250 unit/gram ointment 1 applic topical DAILY Qty: 30 0RF Rx Instructions: START ONLY AFTER PURULENCE BEHIND THE HEAD OF PENIS RESOLVES Referrals: Sulma Zavala MD [Primary Care Provider] - Coding Level of Care Code ED Gripper Installer for Lillian Anne
[2023-11-14 16:06] LABS: Basophils % 0.6 %; Eosinophils # 0.1 10^3/uL (0.0-0.8); Eosinophils % 1.4 %; Hematocrit 26.1 % (37-53); Lymphocytes # 0.8 10^3/uL (0.8-4.8); Lymphocytes % 15.3 %; Mean Corpuscular HGB Conc 29.9 g/dL (30-55); Mean Corpuscular Hemoglobin 31.7 pg (27-33); Mean Corpuscular Volume 106.1 fl (82-101); Mean Platelet Volume 11.1 fL (7.4-10.4); Monocytes # 0.5 10^3/uL (0.2-0.9); Monocytes % 10.5 %; Neutrophils # 3.61 10^3/uL (1.8-7.7); Neutrophils % 71.6 %; Nucleated Red Blood Cells % 0 %; Platelet Count 89 10^3/cmm (157-399); Red Blood Count 2.46 10^6/uL (3.85-5.65); Red Cell Distribution Width 24.8 % (12.1-15.1); White Blood Count 5.04 10^3/uL (3.29-11.43)
[2023-11-14 16:16] LABS: INR 1.41 (0.8-1.2)
[2023-11-14 16:25] LABS: Alanine Aminotransferase < 5 U/L (0-41); Albumin Level 3.3 g/dL (3.5-5.2); Alkaline Phosphatase 230 U/L (40-130); Anion Gap 17.3 (5-19); Aspartate Amino Transferase 31 U/L (0-40); Blood Urea Nitrogen 18 mg/dL (8-23); Carbon Dioxide 31 mmol/L (22-29); Chloride 93 mmol/L (98-107); Globulin 2.5 g/dL (1.3-4.6); Glomerular Filtration Rate 16.3 mL/min (90-130); Glucose 131 mg/dL (65-115); Osmolality Calculated 290 mOsm/kg (285-295); Potassium 3.3 mmol/L (3.5-5.1); Sodium 138 mmol/L (136-145); Total Bilirubin 3.2 mg/dL (0.15-1.2); Total Protein 5.8 g/dL (6.6-8.7)
[2023-11-14] MEDS: pantoprazole 40 mg SDV 80 MG IVP (16:37)
--- NOTE | 2023-11-14 17:10 | ECG_ITS ---
[facility] Test Date: 2023-11-14 Pat Name: Richard Huffman Department: Room: 258 Gender: Male Supervisor Pressing Department: : [id number] Requested By: Alvino Bernabe Order Number: [id number] Kisha MD: Shayan Stout M.D. Measurements Intervals [place] Rate: 104 P: 257 ID: [id number] QRS: -56 QRSD: 144 T: 110 QT: 415 QTc: 547 Interpretive Statements SINUS TACHYCARDIA LEFT AXIS DEVIATION [QRS AXIS < -30] RIGHT BUNDLE BRANCH BLOCK [120+ ms QRS DURATION, UPRIGHT V1, 40+ ms S IN I/aVL/V4/V5/V6] POSSIBLE ANTERIOR MYOCARDIAL INFARCTION , OF INDETERMINATE AGE [30 ms Q WAVE IN V3/V4, OR R < 0.2 mV IN V4] Compared to ECG 11/03/2023 19:53:16 Left-axis deviation now present Myocardial infarct finding still present Electronically Signed On 11-15-2023 11:11:39 CDT by Shayan Stout M.D. [email or web address]
[2023-11-14 17:18] VITALS: PULSE 104; O2SAT 98
--- NOTE | 2023-11-14 17:34 | PM.HP ---
Providers/Chief Complaint Admitting Physician: Desean Montes MD Primary Care Provider: Sulma Zavala MD Chief Complaint: bloody stool; AMS History of Present Illness Richard Huffman is a 63 year old male with a past medical history of atrial fibrillation, off anticoagulant therapy, history of GI bleed secondary to gastritis, off anticoagulant therapy, history of end-stage renal disease on dialysis, history of fluid overload history of CHF, who presents [facility] to due to concerns for black tarry stools. Patient tells me that currently he is at the intermediate facility, does report intermittent shortness of breath, weakness, fatigue reports black tarry stools, intermittently, he tells me that today that have gotten worse, does report lightheadedness, dizziness, no nausea, no vomiting Review of Systems Const: Reports: malaise; Denies: fever(s) Card: Denies: chest pain Resp: Denies: dyspnea GI: Denies: abdominal pain, nausea or vomiting Medications/Allergies Home Medications Medication Instructions Recorded Confirmed Last Taken Type oxycodone-acetaminophen 5 mg-325 0.5 - 1 tab PO Q4H PRN Pain 07/15/22 11/03/23 10/09/23 History mg tablet cyanocobalamin (vitamin B-12) 1,000 mcg PO DAILY 08/25/22 11/03/23 11/03/23 History 1,000 mcg tablet (Vitamin B-12) tramadol 50 mg tablet 50 mg PO Q6H PRN Pain, Mild 12/29/22 11/03/23 10/07/23 History Cruthes #1 ea 05/11/23 11/03/23 Unknown Rx vit B,C-folic ac 800 mcg-zinc 12.5 1 tab PO BEDTIME 05/15/23 11/03/23 11/02/23 History mg-selen-D3 2,000 unit-vit E tablet (RenaPlex-D) albuterol sulfate 90 mcg/actuation 1 inh inhalation QID PRN shortness 06/01/23 11/03/23 Unknown Rx aerosol inhaler (Ventolin HFA) of breath or wheezing #8.5 grams budesonide 0.5 mg/2 mL suspension 0.5 mg (2 mL) inhalation BID #60 mL 06/01/23 11/03/23 11/03/23 Rx for nebulization budesonide-formoterol HFA 80 2 puff inhalation BID PRN unknown 06/01/23 11/03/23 Unknown Rx mcg-4.5 mcg/actuation aerosol #10.2 grams inhaler (Symbicort) escitalopram oxalate 10 mg tablet 10 mg PO QAM #90 tabs 06/01/23 11/03/23 11/03/23 Rx (Lexapro) fluticasone propionate 50 2 spray intranasal DAILY PRN 06/01/23 11/03/23 Unknown Rx mcg/actuation nasal Allergy Symptoms #16 grams spray,suspension ipratropium 0.5 mg-albuterol 3 mg 3 ml inhalation Q6H Shortness Of 06/01/23 11/03/23 11/03/23 Rx (2.5 mg base)/3 mL nebulization Breath #180 mL soln nitroglycerin 2.5 mg 2.5 mg PO DAILY PRN chest 06/01/23 11/03/23 08/27/23 Rx capsule,extended release tightness #30 caps ropinirole 2 mg tablet 2 mg PO BEDTIME #90 tabs 06/01/23 11/03/23 11/02/23 Rx Diabetic shoes #1 ea 06/04/23 11/03/23 Unknown Rx four point rollaid with chair #1 ea 06/04/23 11/03/23 Unknown Rx nebulizer #1 ea 06/04/23 11/03/23 Unknown Rx nebulizer supplies (hose, mask,ect) #1 ea 06/04/23 11/03/23 Unknown Rx oxygen concentrator #1 ea 06/04/23 11/03/23 Unknown Rx shower chair #1 ea 06/04/23 11/03/23 Unknown Rx toiler riser with handles #1 ea 06/04/23 11/03/23 Unknown Rx Camboot #1 ea 06/17/23 11/03/23 Unknown Rx acetaminophen 325 mg tablet 650 mg PO Q6H PRN PAIN OR 08/16/23 11/03/23 10/07/23 History INCREASED TEMP ondansetron HCl 8 mg tablet 8 mg PO Q6H PRN Nausea 08/16/23 11/03/23 09/09/23 History bisacodyl 5 mg tablet 10 mg PO DAILY PRN Constipation 10/12/23 11/03/2310/08/24 History lanthanum 500 mg chewable tablet 500 mg PO TID 10/12/23 11/03/23 11/03/23 History (Fosrenol) tamsulosin 0.4 mg capsule (Flomax) 0.4 mg PO BEDTIME 10/12/23 11/03/23 11/02/23 History aspirin 81 mg tablet,delayed 81 mg PO DAILY 30 days #30 tabs 10/20/23 11/03/23 11/03/23 Rx release atorvastatin 40 mg tablet 40 mg PO BEDTIME 30 days #30 tabs 10/20/23 11/03/23 11/02/23 Rx carbidopa 10 mg-levodopa 100 mg 1 tab PO TID 30 days #90 tabs 10/20/23 11/03/23 11/03/23 Rx tablet (Sinemet) collagenase clostridium histo. 250 1 applic topical DAILY #30 grams 10/20/23 11/03/23 Unknown Rx unit/gram topical ointment (Santyl) miconazole nitrate 2 % topical 1 applic topical BID #30 grams 10/20/23 11/03/23 11/03/23 Rx cream (Antifungal (miconazole)) pantoprazole 40 mg tablet,delayed 40 mg PO BID 4 weeks #56 tabs 10/24/23 11/03/23 11/03/23 Rx release (Protonix) sucralfate 1 gram tablet (Carafate) 1 g PO BID 4 weeks #56 tabs 10/24/23 11/03/23 11/03/23 Rx alprazolam 0.25 mg tablet (Xanax) 0.25 mg PO TID 11/02/23 11/03/23 11/03/23 History amoxicillin 875 mg-potassium 1 tab PO BID #10 tabs 11/04/23 Unknown Rx clavulanate 125 mg tablet doxycycline monohydrate 100 mg 100 mg PO BID #10 tabs 11/04/23 Unknown Rx tablet midodrine 5 mg tablet 10 mg (2 x 5 mg) PO TID PRN Blood 11/04/23 11/03/23 11/03/23 Rx pressure below 100/90 30 days #180 tabs Allergies Allergy/AdvReac Type Severity Reaction Status Date / Time latex Allergy Mild Blisters Verified 11/02/23 09:16 petrolatum,white Allergy Mild Blisters Verified 11/02/23 09:16 [From A and D Barrier] amlodipine Allergy Unknown Verified 11/02/23 09:16 PFSH Acute PFSH: Medical History Anasarca End stage renal disease on dialysis Lower extremity cellulitis Weakness Systolic and diastolic CHF, chronic End stage renal disease on dialysis Tachy-mariposa syndrome Macrocytic anemia Hypertension ESRD (end stage renal disease) Acute exacerbation of congestive heart failure Bradycardia Hyperkalemia ESRD (end stage renal disease) on dialysis Acute hyperkalemia NSTEMI (non-ST elevated myocardial infarction) Chest pain Atrial fibrillation Moderate to severe mitral regurgitation Chronic pain Chronic GI bleeding Hiatal hernia High risk medication use Chronic anemia COPD (chronic obstructive pulmonary disease) Severe tobacco use disorder ESRD on hemodialysis History of renal dialysis Chronic kidney disease 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 Intermittent palpitations Hyperlipidemia XI (obstructive sleep apnea) DJD (degenerative joint disease) Atrial flutter PVD (peripheral vascular disease) Diabetes Surgical History 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 H/O aortic valve replacement with tissue graft H/O aortic valve replacement H/O foot surgery Family History Grandmother Diabetes Grandfather Diabetes Denies family history of CAD (coronary artery disease) Clotting disorder Dementia Chronic kidney disease (CKD) Suicide Anesthesia complication Bleeding disorder Lung disease Cancer Stroke Social History Smoking and tobacco/nicotine status: former use of tobacco/nicotine Alcohol intake: never Substance/Drug Use: never Lives independently: Yes (with girlfriend) Household members: significant other Marital status: Single service: No 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al status: disabled 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 Pets and animals: Yes Special araceli needs: No Agree to transfusion: Yes Vitals/I&O/Wt Last Vital Signs Temp 98.2 F 11/14/23 15:28 Pulse 104 H 11/14/23 17:18 Resp 18 11/14/23 15:28 BP 127/74 11/14/23 15:28 Pulse Ox 98 11/14/23 17:18 O2 Del Method Nasal Cannula 11/14/23 17:18 O2 Flow Rate 3 11/14/23 17:18 Physical Exam Const: COMMON NORMALS: no acute distress and patient oriented x3 HENMT: COMMON NORMALS: normocephalic HEAD & SCALP: normocephalic Eye: COMMON NORMALS: Equal, round and reactive pupils present Neck/C-Spine: COMMON NORMALS: no JVD Resp: COMMON NORMALS: normal respiratory effort, No retractions, No use of accessory muscles and clear to auscultation bilaterally AUSCULTATION: clear to auscultation bilaterally Cardio: COMMON NORMALS: no JVD, regular rate, regular rhythm, S1 normal heart sound present and S2 normal heart sound present RATE: regular rate RHYTHM: regular rhythm HEART SOUNDS: S1 normal heart sound present and S2 normal heart sound present GI: COMMON NORMALS: Normal to inspection, nondistended, normoactive bowel sounds present, Soft to palpation, non-tender, No hepatosplenomegaly present, no masses and no bruits PALPATION: Yes Soft to palpation and Yes No hepatosplenomegaly present Extremity: COMMON NORMALS: no calf tenderness NARRATIVE EXTREMITY EXAM: 1+ edema Neuro: COMMON NORMALS: patient oriented x3, CN's II-XII intact bilaterally and moves all extremities Psych: COMMON NORMALS: mental status grossly normal Data 11/14/23 15:47 11/14/23 15:47 A&P Assessment and plan (1) GI bleed: (2) Ventral hernia: (3) Hypertension: Qualifiers: Hypertension type: essential hypertension Qualified Code(s): I10 - Essential (primary) hypertension Plan GI bleed -Is likely upper GI bleed given black tarry stool complaints ? Plan ? Clear liquids for now ? N.p.o. over midnight ? General Surgery consulted for EGD tomorrow, plan on EGD in the afternoon ? Protonix ? Carafate ? Hold aspirin ? Monitor hemoglobin in 4 hours next ?will be transfuse 1 unit PRBC ? Atrial fibrillation, not on anticoagulation, is on aspirin hold for now ? Full code ? Lovenox relatively contraindicated for DVT prophylaxis, continue SCDs # End-stage renal disease on dialysis, consulted nephrology # Is fluid overloaded, plan on dialysis tomorrow to help with fluid overload Attestations Medical Necessity Statement*: Patient requires hospitalization, inpatient, greater than 2 midnights, for GI bleed, fluid overload Diagnoses GI bleed K92.2 Ventral hernia K43.9 Essential hypertension I10 Hypertension type: essential hypertension
[2023-11-14 17:35] VITALS: BP 127/74; PULSE 104; RESP 18; TEMP 36.8; O2SAT 98
[2023-11-14 17:38] VITALS: BMI 40.0
[2023-11-14 19:15] LABS: INR 1.36 (0.8-1.2)
[2023-11-14 19:18] LABS: Lactic Sepsis W/Reflex 1.7 mmol/L (0.5-2.2)
[2023-11-14 19:53] LABS: NT Pro B Type Natriuretic Pept 69038 pg/mL (0-125)
[2023-11-14 19:54] LABS: Thyroid Stimulating Hormone 7.37 uIU/mL (0.27-4.20)
[2023-11-14 20:00] VITALS: BP 111/74; PULSE 104; RESP 17; TEMP 36.6; O2SAT 96
[2023-11-14] MEDS: sucralfate 1 gm/10 mL Oral Liq UDC PO (21:11)
[2023-11-14] MEDS: pantoprazole 40 mg SDV IVP (21:11)
[2023-11-14] MEDS: atorvastatin 40 mg Tablet PO (21:11)
[2023-11-14] MEDS: ALPRAZolam 0.5 mg Tablet 0.25 MG PO (21:11)
[2023-11-14] MEDS: ropinirole 2 mg Tablet PO (21:11)
[2023-11-14] MEDS: tamsulosin 0.4 mg Capsule PO (21:11)
[2023-11-14 22:00] VITALS: PULSE 103
[2023-11-14 23:50] LABS: Hematocrit 25.1 % (37-53)
[2023-11-14 23:58] VITALS: BP 104/54; PULSE 104; RESP 21; TEMP 36.6; O2SAT 95
[2023-11-15] VITALS (19 sets, daily range): BP systolic 99–121; BP diastolic 57–72; PULSE 82–109; RESP 16–20; TEMP 36.1–36.6; O2SAT 90–96
--- NOTE | 2023-11-15 01:43 | PC.NURSE ---
Pt confused and not able to sign for consent for blood. Nurse attempted to call family to get consent and not able to reach them. Dr Espinoza called for further orders. He stated he is stable enough to wait til day shift to attempt family consent again.
[2023-11-15] MEDS: ipratropium-albuterol 3 mL Neb INHALATION ×3 (02:27→20:21)
[2023-11-15] MEDS: sucralfate 1 gm/10 mL Oral Liq UDC PO ×4 (02:51→18:08)
[2023-11-15 06:00] LABS: Basophils # 0.1 10^3/uL (0.0-0.1); Basophils % 1.1 %; Eosinophils # 0.1 10^3/uL (0.0-0.8); Eosinophils % 2.1 %; Hematocrit 25.1 % (37-53); Lymphocytes % 20.6 %; Mean Corpuscular HGB Conc 29.9 g/dL (30-55); Mean Corpuscular Hemoglobin 32.2 pg (27-33); Mean Corpuscular Volume 107.7 fl (82-101); Mean Platelet Volume 12.2 fL (7.4-10.4); Monocytes # 0.5 10^3/uL (0.2-0.9); Monocytes % 10.2 %; Neutrophils # 3.09 10^3/uL (1.8-7.7); Neutrophils % 65.8 %; Nucleated Red Blood Cells % 0 %; Platelet Count 86 10^3/cmm (157-399); Red Blood Count 2.33 10^6/uL (3.85-5.65)
[2023-11-15] MEDS: escitalopram 10 mg Tablet PO (06:11)
[2023-11-15 06:28] LABS: Anion Gap 19.2 (5-19); Blood Urea Nitrogen 19 mg/dL (8-23); Calcium 8.8 mg/dL (8.5-10.5); Carbon Dioxide 28 mmol/L (22-29); Chloride 95 mmol/L (98-107); Glomerular Filtration Rate 14.1 mL/min (90-130); Glucose 109 mg/dL (65-115); Osmolality Calculated 291 mOsm/kg (285-295); Potassium 3.2 mmol/L (3.5-5.1); Sodium 139 mmol/L (136-145)
[2023-11-15] MEDS: pantoprazole 40 mg SDV IVP ×2 (08:41→20:03)
[2023-11-15] MEDS: ALPRAZolam 0.5 mg Tablet 0.25 MG PO ×3 (08:41→20:01)
[2023-11-15] MEDS: nystatin cream 30 gm 1 APPLIC TOPICAL ×2 (08:43→18:08)
--- NOTE | 2023-11-15 09:50 | P.CONIM_ITS ---
Providers/Reason For Consult 2 Consulting Physician/Specialty*: kommana/nephrology Reason for Consult*: ESRD Attending Physician: Desean Montes MD Primary Care Provider: Sulma Zavala MD History of Present Illness History of Present Illness Richard Huffman is a 63 year old male Past medical history of atrial fibrillation history of GI bleeds in the past, end-stage renal disease on dialysis, history of CHF, multiple admissions for volume overload black tarry stools. Is currently off anticoagulation. Vital signs in the ER patient tachycardic, lab data is significant for hemoglobin of 7.8, potassium of 3.3. Review of Systems 2 Narrative: other ROS negative Medications/Allergies Home Medications Medication Instructions Recorded Confirmed Last Taken Type oxycodone-acetaminophen 5 mg-325 0.5 - 1 tab PO Q4H PRN Pain 07/15/22 11/03/23 10/09/23 History mg tablet cyanocobalamin (vitamin B-12) 1,000 mcg PO DAILY 08/25/22 11/03/23 11/03/23 History 1,000 mcg tablet (Vitamin B-12) tramadol 50 mg tablet 50 mg PO Q6H PRN Pain, Mild 12/29/22 11/03/23 10/07/23 History Cruthes #1 ea 05/11/23 11/03/23 Unknown Rx vit B,C-folic ac 800 mcg-zinc 12.5 1 tab PO BEDTIME 05/15/23 11/03/23 11/02/23 History mg-selen-D3 2,000 unit-vit E tablet (RenaPlex-D) albuterol sulfate 90 mcg/actuation 1 inh inhalation QID PRN shortness 06/01/23 11/03/23 Unknown Rx aerosol inhaler (Ventolin HFA) of breath or wheezing #8.5 grams budesonide 0.5 mg/2 mL suspension 0.5 mg (2 mL) inhalation BID #60 mL 06/01/23 11/03/23 11/03/23 Rx for nebulization budesonide-formoterol HFA 80 2 puff inhalation BID PRN unknown 06/01/23 11/03/23 Unknown Rx mcg-4.5 mcg/actuation aerosol #10.2 grams inhaler (Symbicort) escitalopram oxalate 10 mg tablet 10 mg PO QAM #90 tabs 06/01/23 11/03/23 11/03/23 Rx (Lexapro) fluticasone propionate 50 2 spray intranasal DAILY PRN 06/01/23 11/03/23 Unknown Rx mcg/actuation nasal Allergy Symptoms #16 grams spray,suspension ipratropium 0.5 mg-albuterol 3 mg 3 ml inhalation Q6H Shortness Of 06/01/23 11/03/23 11/03/23 Rx (2.5 mg base)/3 mL nebulization Breath #180 mL soln nitroglycerin 2.5 mg 2.5 mg PO DAILY PRN chest 06/01/23 11/03/23 08/27/23 Rx capsule,extended release tightness #30 caps ropinirole 2 mg tablet 2 mg PO BEDTIME #90 tabs 06/01/23 11/03/23 11/02/23 Rx Diabetic shoes #1 ea 06/04/23 11/03/23 Unknown Rx four point rollaid with chair #1 ea 06/04/23 11/03/23 Unknown Rx nebulizer #1 ea 06/04/23 11/03/23 Unknown Rx nebulizer supplies (hose, mask,ect) #1 ea 06/04/23 11/03/23 Unknown Rx oxygen concentrator #1 ea 06/04/23 11/03/23 Unknown Rx shower chair #1 ea 06/04/23 11/03/23 Unknown Rx toiler riser with handles #1 ea 06/04/23 11/03/23 Unknown Rx Camboot #1 ea 06/17/23 11/03/23 Unknown Rx acetaminophen 325 mg tablet 650 mg PO Q6H PRN PAIN OR 08/16/23 11/03/23 10/07/23 History INCREASED TEMP ondansetron HCl 8 mg tablet 8 mg PO Q6H PRN Nausea 08/16/23 11/03/23 09/09/23 History bisacodyl 5 mg tablet 10 mg PO DAILY PRN Constipation 10/12/23 11/03/23 10/09/23 History lanthanum 500 mg chewable tablet 500 mg PO TID 10/12/23 11/03/23 11/03/23 History (Fosrenol) tamsulosin 0.4 mg capsule (Flomax) 0.4 mg PO BEDTIME 10/12/23 11/03/23 11/02/23 History aspirin 81 mg tablet,delayed 81 mg PO DAILY 30 days #30 tabs 10/20/23 11/03/23 11/03/23 Rx release atorvastatin 40 mg tablet 40 mg PO BEDTIME 30 days #30 tabs 10/20/23 11/03/23 11/02/23 Rx carbidopa 10 mg-levodopa 100 mg 1 tab PO TID 30 days #90 tabs 10/20/23 11/03/23 11/03/23 Rx tablet (Sinemet) collagenase clostridium histo. 250 1 applic topical DAILY #30 grams 10/20/23 11/03/23 Unknown Rx unit/gram topical ointment (Santyl) miconazole nitrate 2 % topical 1 applic topical BID #30 grams 10/20/23 11/03/23 11/03/23 Rx cream (Antifungal (miconazole)) pantoprazole 40 mg tablet,delayed 40 mg PO BID 4 weeks #56 tabs 10/24/23 11/03/23 11/03/23 Rx release (Protonix) sucralfate 1 gram tablet (Carafate) 1 g PO BID 4 weeks #56 tabs 10/24/23 11/03/23 11/03/23 Rx alprazolam 0.25 mg tablet (Xanax) 0.25 mg PO TID 11/02/23 11/03/23 11/03/23 History amoxicillin 875 mg-potassium 1 tab PO BID #10 tabs 11/04/23 Unknown Rx clavulanate 125 mg tablet doxycycline monohydrate 100 mg 100 mg PO BID #10 tabs 11/04/23 Unknown Rx tablet midodrine 5 mg tablet 10 mg (2 x 5 mg) PO TID PRN Blood 11/04/23 11/03/23 11/03/23 Rx pressure below 100/90 30 days #180 tabs Allergies Allergy/AdvReac Type Severity Reaction Status Date / Time latex Allergy Mild Blisters Verified 11/02/23 09:16 petrolatum,white Allergy Mild Blisters Verified 11/02/23 09:16 [From A and D Barrier] amlodipine Allergy Unknown Verified 11/02/23 09:16 Current Medications Generic Name Dose Route Start Last Admin Trade Name Freq PRN Reason Stop Dose Admin Albuterol/Ipratropium 3 ml 11/15/23 02:00 11/15/23 07:42 Ipratropium-Albuterol 3 Ml Neb INHALATION 3 ml Q6H.RESP KENNEDY Administration Alprazolam 0.25 mg 11/14/23 21:00 11/15/23 08:41 Alprazolam 0.5 Mg Tablet PO 0.25 mg TID KENNEDY Administration Atorvastatin Calcium 40 mg 11/14/23 21:00 11/14/23 21:11 Atorvastatin 40 Mg Tablet PO 40 mg BEDTIME KENNEDY Administration Carbidopa/Levodopa 1 each 11/14/23 21:00 11/15/23 08:41 Carbidopa-Levodopa 10-100 Mg Tablet PO 1 each TID KENNEDY Administration Escitalopram Oxalate 10 mg 11/15/23 06:00 11/15/23 06:11 Escitalopram 10 Mg Tablet PO 10 mg QAM KENNEDY Administration Nystatin 1 applic 11/15/23 09:00 11/15/23 08:43 Nystatin Cream 30 Gm TOPICAL 1 applic BID KENNEDY Administration Pantoprazole Sodium 40 mg 11/14/23 21:00 11/15/23 08:41 Pantoprazole 40 Mg Sdv IVP 40 mg Q12H KENNEDY Administration Ropinirole HCl 2 mg 11/14/23 21:00 11/14/23 21:11 Ropinirole 2 Mg Tablet PO 2 mg BEDTIME KENNEDY Administration Sucralfate 1 gm 11/14/23 18:57 11/15/23 06:11 Sucralfate 1 Gm/10 Ml Oral Liq Udc PO 1 gm Q6H KENNEDY Administration Tamsulosin HCl 0.4 mg 11/14/23 21:00 11/14/23 21:11 Tamsulosin 0.4 Mg Capsule PO 0.4 mg BEDTIME KENNEDY Administration PFSH Acute 2 PFSH: Medical History (Updated 11/15/23 @ 10:55 by Lilia Downing MD) ESRD (end stage renal disease) Anasarca End stage renal disease on dialysis Lower extremity cellulitis Weakness Systolic and diastolic CHF, chronic End stage renal disease on dialysis Tachy-mariposa syndrome Macrocytic anemia Hypertension Acute exacerbation of congestive heart failure Bradycardia Hyperkalemia ESRD (end stage renal disease) on dialysis Acute hyperkalemia NSTEMI (non-ST elevated myocardial infarction) Chest pain Atrial fibrillation Moderate to severe mitral regurgitation Chronic pain Chronic GI bleeding Hiatal hernia High risk medication use Chronic anemia COPD (chronic obstructive pulmonary disease) Severe tobacco use disorder ESRD on hemodialysis History of renal dialysis Chronic kidney disease 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 Intermittent palpitations Hyperlipidemia XI (obstructive sleep apnea) DJD (degenerative joint disease) Atrial flutter PVD (peripheral vascular disease) Diabetes Surgical History 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 H/O aortic valve replacement with tissue graft H/O aortic valve replacement H/O foot surgery Family History Grandmother Diabetes Grandfather Diabetes Denies family history of CAD (coronary artery disease) Clotting disorder Dementia Chronic kidney disease (CKD) Suicide Anesthesia complication Bleeding disorder Lung disease Cancer Stroke Social History Smoking and tobacco/nicotine status: former use of tobacco/nicotine Alcohol intake: never Substance/Drug Use: never Lives independently: Yes (with girlfriend) Household members: significant other Marital status: Single service: No 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al status: disabled 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 Pets and animals: Yes Special araceli needs: No Agree to transfusion: Yes Vitals/I&O/Wt Last Vital Signs Temp 97.8 F 11/15/23 07:23 Pulse 103 H 11/15/23 07:42 Resp 20 H 11/15/23 07:42 BP 103/60 11/15/23 07:23 Pulse Ox 95 11/15/23 07:42 O2 Del Method Nasal Cannula 11/15/23 07:42 O2 Flow Rate 2 11/15/23 07:42 Weight last 48 hrs Weight 125.827 kg Weight 125.191 kg Physical Exam 2 Narrative: awake , HEENT [id number] RRR per report Lungs clear per report no edema Data 11/15/23 09:55 11/15/23 05:33 A&P Assessment and plan (1) ESRD (end stage renal disease): 1. End-stage renal disease: Hemodialysis today, ultrafiltration as tolerated 2. Severe anemia: Recurrent GI bleed, general surgery consulted. Had recent EGD. Will order SALENA. 3. Hypokalemia: Will run on 3K bath 4. History of CHF with recurrent admissions for volume overload, UF as tolerated Consult Attestations 2 Medical Necessity Statement: per medicine Coding Level of Care Code Acute Code for Chg Fwd Diagnoses ESRD (end stage renal disease) N18.6
[2023-11-15] MEDS: heparin, porcine 1,000 unit/mL INJ 10 mL 1000 UNIT IV (10:07)
[2023-11-15] MEDS: heparin, porcine 1,000 unit/mL INJ 10 mL 10000 UNIT INTRACATH (10:07)
[2023-11-15 10:25] LABS: Hematocrit 27.1 % (37-53)
[2023-11-15 10:55] LABS: Hepatitis B Surface AB 150.6 (11.5-1000); Hepatitis B Surface Antigen Non-Reactive (Nonreactive)
--- NOTE | 2023-11-15 10:59 | PM.PN ---
Subjective Subjective: Patient is drowsy stating that he wants to rest for now Patient is Walt lift dependent at the senior care He is from [facility] Hemoglobin is stable at 7.9 Appreciate nephro recommendations Vitals/I&O/Wt Last Vital Signs Temp 97.8 F 11/15/23 07:23 Pulse 103 H 11/15/23 07:42 Resp 20 H 11/15/23 07:42 BP 103/60 11/15/23 07:23 Pulse Ox 95 11/15/23 07:42 O2 Del Method Nasal Cannula 11/15/23 07:42 O2 Flow Rate 2 11/15/23 07:42 Weight last 48 hrs Weight 125.827 kg Weight 125.191 kg Physical Exam Narrative: A-fib RVR Hemodynamically stable Currently on 2 L Lower extremity venous stasis dermatitis Nonpurulent cellulitis Pressure ulcer on the heel Able to follow commands, awake and alert but groggy Data 11/15/23 09:55 11/15/23 05:33 A&P Assessment and plan (1) GI bleed: (2) Ventral hernia: (3) Hypertension: Qualifiers: Hypertension type: essential hypertension Qualified Code(s): I10 - Essential (primary) hypertension Plan GI bleed Hemoglobin stable Hemodynamically stable Patient has history of A-fib, previous history of gastritis, does not use anticoagulating agent End-stage renal disease appreciate nephro recommendations Plan to discharge by tomorrow back to [facility] Will call [facility] to learn more about COVID test: Likely after 5 days of quarantine we do not need to extend Full code Not sure if patient will need EGD at this point Patient is Walt lift dependent For pressure ulcers applying offloading dressing Attestations Medical Necessity Statement*: Likely discharge by tomorrow Diagnoses GI bleed K92.2 Ventral hernia K43.9 Essential hypertension I10 Hypertension type: essential hypertension
--- NOTE | 2023-11-15 11:33 | PC.NURSE ---
Dialysis nurse administered transfusion and adjusted rate accordingly.
--- NOTE | 2023-11-15 12:10 | PM.CONSULT ---
Providers/Reason For Consult Consulting Physician/Specialty*: General surgery Dr. Fu Reason for Consult*: GIB Attending Physician: Desean Montes MD Primary Care Provider: Sulma Zavala MD History of Present Illness History of Present Illness Richard Huffman is a 63 year old male whom general surgery got consulted for melanotic stools. CKD. Hgb down to 7. In discussion with our hosptalist colleagues patient had had melanotic stools this week. Medications/Allergies Home Medications Medication Instructions Recorded Confirmed Last Taken Type oxycodone-acetaminophen 5 mg-325 0.5 - 1 tab PO Q4H PRN Pain 07/15/22 11/03/23 10/09/23 History mg tablet cyanocobalamin (vitamin B-12) 1,000 mcg PO DAILY 08/25/22 11/03/23 11/03/23 History 1,000 mcg tablet (Vitamin B-12) tramadol 50 mg tablet 50 mg PO Q6H PRN Pain, Mild 12/29/22 11/03/23 10/07/23 History Cruthes #1 ea 05/11/23 11/03/23 Unknown Rx vit B,C-folic ac 800 mcg-zinc 12.5 1 tab PO BEDTIME 05/15/23 11/03/23 11/02/23 History mg-selen-D3 2,000 unit-vit E tablet (RenaPlex-D) albuterol sulfate 90 mcg/actuation 1 inh inhalation QID PRN shortness 06/01/23 11/03/23 Unknown Rx aerosol inhaler (Ventolin HFA) of breath or wheezing #8.5 grams budesonide 0.5 mg/2 mL suspension 0.5 mg (2 mL) inhalation BID #60 mL 06/01/23 11/03/23 11/03/23 Rx for nebulization budesonide-formoterol HFA 80 2 puff inhalation BID PRN unknown 06/01/23 11/03/23 Unknown Rx mcg-4.5 mcg/actuation aerosol #10.2 grams inhaler (Symbicort) escitalopram oxalate 10 mg tablet 10 mg PO QAM #90 tabs 06/01/23 11/03/23 11/03/23 Rx (Lexapro) fluticasone propionate 50 2 spray intranasal DAILY PRN 06/01/23 11/03/23 Unknown Rx mcg/actuation nasal Allergy Symptoms #16 grams spray,suspension ipratropium 0.5 mg-albuterol 3 mg 3 ml inhalation Q6H Shortness Of 06/01/23 11/03/23 11/03/23 Rx (2.5 mg base)/3 mL nebulization Breath #180 mL soln nitroglycerin 2.5 mg 2.5 mg PO DAILY PRN chest 06/01/23 11/03/23 08/27/23 Rx capsule,extended release tightness #30 caps ropinirole 2 mg tablet 2 mg PO BEDTIME #90 tabs 06/01/23 11/03/23 11/02/23 Rx Diabetic shoes #1 ea 06/04/23 11/03/23 Unknown Rx four point rollaid with chair #1 ea 06/04/23 11/03/23 Unknown Rx nebulizer #1 ea 06/04/23 11/03/23 Unknown Rx nebulizer supplies (hose, mask,ect) #1 ea 06/04/23 11/03/23 Unknown Rx oxygen concentrator #1 ea 06/04/23 11/03/23 Unknown Rx shower chair #1 ea 06/04/23 11/03/23 Unknown Rx toiler riser with handles #1 ea 06/04/23 11/03/23 Unknown Rx [place] #1 ea 06/17/23 11/03/23 Unknown Rx acetaminophen 325 mg tablet 650 mg PO Q6H PRN PAIN OR 08/16/23 11/03/23 10/07/23 History INCREASED TEMP ondansetron HCl 8 mg tablet 8 mg PO Q6H PRN Nausea 08/16/23 11/03/23 09/09/23 History bisacodyl 5 mg tablet 10 mg PO DAILY PRN Constipation 10/12/23 11/03/23 10/09/23 History lanthanum 500 mg chewable tablet 500 mg PO TID 10/12/23 11/03/23 11/03/23 History (Fosrenol) tamsulosin 0.4 mg capsule (Flomax) 0.4 mg PO BEDTIME 10/12/23 11/03/23 11/02/23 History aspirin 81 mg tablet,delayed 81 mg PO DAILY 30 days #30 tabs 10/20/23 11/03/23 11/03/23 Rx release atorvastatin 40 mg tablet 40 mg PO BEDTIME 30 days #30 tabs 10/20/23 11/03/23 11/02/23 Rx carbidopa 10 mg-levodopa 100 mg 1 tab PO TID 30 days #90 tabs 10/20/23 11/03/23 11/03/23 Rx tablet (Sinemet) collagenase clostridium histo. 250 1 applic topical DAILY #30 grams 10/20/23 11/03/23 Unknown Rx unit/gram topical ointment (Santyl) miconazole nitrate 2 % topical 1 applic topical BID #30 grams 10/20/23 11/03/23 11/03/23 Rx cream (Antifungal (miconazole)) pantoprazole 40 mg tablet,delayed 40 mg PO BID 4 weeks #56 tabs 10/24/23 11/03/23 11/03/23 Rx release (Protonix) sucralfate 1 gram tablet (Carafate) 1 g PO BID 4 weeks #56 tabs 10/24/23 11/03/23 11/03/23 Rx alprazolam 0.25 mg tablet (Xanax) 0.25 mg PO TID 11/02/23 11/03/23 11/03/23 History amoxicillin 875 mg-potassium 1 tab PO BID #10 tabs 11/04/23 Unknown Rx clavulanate 125 mg tablet doxycycline monohydrate 100 mg 100 mg PO BID #10 tabs 11/04/23 Unknown Rx tablet midodrine 5 mg tablet 10 mg (2 x 5 mg) PO TID PRN Blood 11/04/23 11/03/23 11/03/23 Rx pressure below 100/90 30 days #180 tabs Allergies Allergy/AdvReac Type Severity Reaction Status Date / Time latex Allergy Mild Blisters Verified 11/02/23 09:16 petrolatum,white Allergy Mild Blisters Verified 11/02/23 09:16 [From A and D Barrier] amlodipine Allergy Unknown Verified 11/02/23 09:16 Current Medications Generic Name Dose Route Start Last Admin Trade Name Freq PRN Reason Stop Dose Admin Albuterol/Ipratropium 3 ml 11/15/23 02:00 11/15/23 07:42 Ipratropium-Albuterol 3 Ml Neb INHALATION 3 ml Q6H.RESP KENNEDY Administration Alprazolam 0.25 mg 11/14/23 21:00 11/15/23 08:41 Alprazolam 0.5 Mg Tablet PO 0.25 mg TID KENNEDY Administration Atorvastatin Calcium 40 mg 11/14/23 21:00 11/14/23 21:11 Atorvastatin 40 Mg Tablet PO 40 mg BEDTIME KENNEDY Administration Carbidopa/Levodopa 1 each 11/14/23 21:00 11/15/23 08:41 Carbidopa-Levodopa 10-100 Mg Tablet PO 1 each TID KENNEDY Administration Escitalopram Oxalate 10 mg 11/15/23 06:00 11/15/23 06:11 Escitalopram 10 Mg Tablet PO 10 mg QAM KENNEDY Administration Nystatin 1 applic 11/15/23 09:00 11/15/23 08:43 Nystatin Cream 30 Gm TOPICAL 1 applic BID KENNEDY Administration Pantoprazole Sodium 40 mg 11/14/23 21:00 11/15/23 08:41 Pantoprazole 40 Mg Sdv IVP 40 mg Q12H KENNEDY Administration Ropinirole HCl 2 mg 11/14/23 21:00 11/14/23 21:11 Ropinirole 2 Mg Tablet PO 2 mg BEDTIME KENNEDY Administration Sucralfate 1 gm 11/14/23 18:57 11/15/23 06:11 Sucralfate 1 Gm/10 Ml Oral Liq Udc PO 1 gm Q6H KENNEDY Administration Tamsulosin HCl 0.4 mg 11/14/23 21:00 11/14/23 21:11 Tamsulosin 0.4 Mg Capsule PO 0.4 mg BEDTIME KENNEDY Administration PFSH Acute PFSH: Medical History (Updated 11/15/23 @ 10:55 by Lilia Downing MD) ESRD (end stage renal disease) Anasarca End stage renal disease on dialysis Lower extremity cellulitis Weakness Systolic and diastolic CHF, chronic End stage renal disease on dialysis Tachy-mariposa syndrome Macrocytic anemia Hypertension Acute exacerbation of congestive heart failure Bradycardia Hyperkalemia ESRD (end stage renal disease) on dialysis Acute hyperkalemia NSTEMI (non-ST elevated myocardial infarction) Chest pain Atrial fibrillation Moderate to severe mitral regurgitation Chronic pain Chronic GI bleeding [place] High risk medication use Chronic anemia COPD (chronic obstructive pulmonary disease) Severe tobacco use disorder ESRD on hemodialysis History of renal dialysis Chronic kidney disease 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 Intermittent palpitations Hyperlipidemia XI (obstructive sleep apnea) DJD (degenerative joint disease) Atrial flutter PVD (peripheral vascular disease) Diabetes Surgical History 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 H/O aortic valve replacement with tissue graft H/O aortic valve replacement H/O foot surgery Family History Grandmother Diabetes Grandfather Diabetes Denies family history of CAD (coronary artery disease) Clotting disorder Dementia Chronic kidney disease (CKD) Suicide Anesthesia complication Bleeding disorder Lung disease Cancer Stroke Social History Smoking and tobacco/nicotine status: former use of tobacco/nicotine Alcohol intake: never Substance/Drug Use: never Lives independently: Yes (with girlfriend) Household members: significant other Marital status: Single service: No 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al status: disabled 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 Pets and animals: Yes Special araceli needs: No Agree to transfusion: Yes Vitals/I&O/Wt Last Vital Signs Temp 97.4 F L 11/15/23 10:59 Pulse 105 H 11/15/23 10:59 Resp 20 H 11/15/23 10:59 BP 103/70 11/15/23 10:59 Pulse Ox 94 11/15/23 10:59 O2 Del Method Nasal Cannula 11/15/23 07:42 O2 Flow Rate 2 11/15/23 07:42 11/14/23 11/15/23 11/15/23 22:59 06:59 14:59 Intake Total 0 / 0 Balance 0 / 0 Weight last 48 hrs Weight 277 lb 6.4 oz Weight 276 lb Physical Exam Narrative: Heart: RRR Lungs: unlabored RA Abdomen: soft, NT, ND Data 11/15/23 09:55 11/15/23 05:33 A&P Assessment and plan (1) GI bleed: Plan 63yo M whom general surgery was consulted for melanotic stools. Hgb stable overnight. Patient had recent EGD. Will plan for outpatient EGD if issues persist. Patient will be discharged tomorrow.Discussed with hospitalist unit manager [employer]. Coding Level of Care Code 03649 Diagnoses GI bleed K92.2 Time Spent (min) 30
--- NOTE | 2023-11-15 12:23 | PC.SOCIAL ---
IMM update Pg. 2 of IMM updated and reviewed with patient, who verbalized understanding. Copy provided.
[2023-11-15 13:54] LABS: Hematocrit 29.4 % (37-53)
[2023-11-15] MEDS: tamsulosin 0.4 mg Capsule PO (20:00)
[2023-11-15] MEDS: b-complex-vitamin c Tablet 1 EACH PO (20:00)
[2023-11-15] MEDS: atorvastatin 40 mg Tablet PO (20:00)
[2023-11-15] MEDS: ropinirole 2 mg Tablet PO (20:00)
[2023-11-16] VITALS (8 sets, daily range): BP systolic 104–109; BP diastolic 67–70; PULSE 98–110; RESP 20–24; TEMP 36.4; O2SAT 91–100
[2023-11-16] MEDS: sucralfate 1 gm/10 mL Oral Liq UDC PO ×3 (01:15→12:34)
[2023-11-16] MEDS: ipratropium-albuterol 3 mL Neb INHALATION ×2 (02:34→07:29)
[2023-11-16 04:55] LABS: Basophils # 0.1 10^3/uL (0.0-0.1); Basophils % 1.3 %; Eosinophils # 0.1 10^3/uL (0.0-0.8); Eosinophils % 1.9 %; Hematocrit 28.7 % (37-53); Lymphocytes # 0.8 10^3/uL (0.8-4.8); Lymphocytes % 16.1 %; Mean Corpuscular HGB Conc 30.3 g/dL (30-55); Mean Corpuscular Volume 105.5 fl (82-101); Mean Platelet Volume 12.2 fL (7.4-10.4); Monocytes # 0.5 10^3/uL (0.2-0.9); Monocytes % 9.4 %; Neutrophils % 70.9 %; Nucleated Red Blood Cells % 0 %; Platelet Count 82 10^3/cmm (157-399); Red Blood Count 2.72 10^6/uL (3.85-5.65); Red Cell Distribution Width 25.3 % (12.1-15.1); White Blood Count 4.79 10^3/uL (3.29-11.43)
[2023-11-16 05:27] LABS: Blood Urea Nitrogen 14 mg/dL (8-23); Calcium 8.8 mg/dL (8.5-10.5); Carbon Dioxide 28 mmol/L (22-29); Chloride 97 mmol/L (98-107); Creatinine Clr Calc Pharmacy 27.1707; Glomerular Filtration Rate 16.8 mL/min (90-130); Glucose 95 mg/dL (65-115); Osmolality Calculated 290 mOsm/kg (285-295); Sodium 140 mmol/L (136-145)
[2023-11-16 05:29] LABS: Anion Gap 18.3 (5-19); Potassium 3.3 mmol/L (3.5-5.1)
[2023-11-16] MEDS: escitalopram 10 mg Tablet PO (06:08)
[2023-11-16] MEDS: pantoprazole 40 mg SDV IVP (08:25)
[2023-11-16] MEDS: nystatin cream 30 gm 1 APPLIC TOPICAL (08:26)
[2023-11-16] MEDS: ALPRAZolam 0.5 mg Tablet 0.25 MG PO (08:26)
[2023-11-16] MEDS: oxyCODONE-APAP 5-325 mg Tablet 1 TAB PO (08:53)
--- NOTE | 2023-11-16 09:01 | PM.DCS ---
Discharge Providers Date of Admission: 11/14/23 16:53 Date of Discharge: November 16, 2023 Attending Provider at Admission: Desean Montse MD Attending Provider at Discharge: Patito Michael MD Primary Care Provider: Sulma Zavala MD Diagnoses at Discharge Discharge Diagnosis (1) ESRD (end stage renal disease): Status: Acute (2) GI bleed: Status: Acute Reason for Visit Reason for Visit: bloody stool; [facility] Hospital Course Hospital Course 63-year-old male who has been sent to the hospital multiple times for his acute on chronic anemia, patient has history of A-fib not on anticoagulating agent secondary to anemia, previous EGD showed gastritis he was put on antacids, patient is Walt lift dependent, gradually declining in terms of physical activity, uses 2 L of oxygen intermittently, goes for dialysis Wednesday. He was dialyzed during hospitalization, his hemoglobin remained stable throughout hospitalization, general surgery recommended outpatient EGD if needed. We are not suspecting duodenal ulcer perforation patient is not showing any signs of peritonitis, no leukocytosis or fever. At this point we are discharging patient back to the facility with recommendation to continue Protonix along sucralfate and outpatient EGD. Physical Exam Narrative: Awake and alert On 2 L Mild signs of fluid overload Pleasant and cooperative A-fib without RVR Discharge Data Studies Completed and Pending Laboratory Results WBC 4.79 10^3/uL (3.29-11.43) 11/16/23 04:36 RBC 2.72 10^6/uL (3.85-5.65) L 11/16/23 04:36 Hgb 8.70 g/dL (11.27-16.99) L 11/16/23 04:36 Hct 28.7 % (37-53) L 11/16/23 04:36 MCV 105.5 fl (82-101) H 11/16/23 04:36 MCH 32.0 pg (27-33) 11/16/23 04:36 MCHC 30.3 g/dL (30-55) 11/16/23 04:36 RDW 25.3 % (12.1-15.1) H 11/16/23 04:36 Plt Count 82 10^3/cmm (157-399) L 11/16/23 04:36 MPV 12.2 fL (7.4-10.4) H 11/16/23 04:36 Neut % (Auto) 70.9 % 11/16/23 04:36 Lymph % (Auto) 16.1 % 11/16/23 04:36 [place] % (Auto) 9.4 % 11/16/23 04:36 Eos % (Auto) 1.9 % 11/16/23 04:36 Baso % (Auto) 1.3 % 11/16/23 04:36 Neut # (Auto) 3.40 10^3/uL (1.8-7.7) 11/16/23 04:36 Lymph # (Auto) 0.8 10^3/uL (0.8-4.8) 11/16/23 04:36 [place] # (Auto) 0.5 10^3/uL (0.2-0.9) 11/16/23 04:36 Eos # (Auto) 0.1 10^3/uL (0.0-0.8) 11/16/23 04:36 Baso # (Auto) 0.1 10^3/uL (0.0-0.1) 11/16/23 04:36 Nucleated RBC % (auto) 0 % 11/16/23 04:36 Nucleated RBCs # 0.0 /100WBC 11/16/23 04:36 PT 17.20 SECONDS (12.1-14.9) H 11/14/23 18:50 INR 1.36 (0.8-1.2) H 11/14/23 18:50 Sodium 140 mmol/L (136-145) 11/16/23 04:36 Potassium 3.3 mmol/L (3.5-5.1) L 11/16/23 04:36 Chloride 97 mmol/L (98-107) L 11/16/23 04:36 Carbon Dioxide 28 mmol/L (22-29) 11/16/23 04:36 Anion Gap 18.3 (5-19) 11/16/23 04:36 BUN 14 mg/dL (8-23) 11/16/23 04:36 Creatinine 3.7 mg/dL (0.7-1.2) H 11/16/23 04:36 GFR Calculation 16.8 mL/min (90-130) L 11/16/23 04:36 Glucose 95 mg/dL (65-115) 11/16/23 04:36 Calculated Osmolality 290 mOsm/kg (285-295) 11/16/23 04:36 Lactic Acid 1.7 mmol/L (0.5-2.2) 11/14/23 18:50 Calcium 8.8 mg/dL (8.5-10.5) 11/16/23 04:36 Total Bilirubin 3.2 mg/dL (0.15-1.2) H 11/14/23 15:47 AST 31 U/L (0-40) 11/14/23 15:47 ALT < 5 U/L (0-41) 11/14/23 15:47 Alkaline Phosphatase 230 U/L (40-130) H 11/14/23 15:47 NT-Pro-B Natriuret Pep 62916 pg/mL (0-125) H 11/14/23 18:50 Total Protein 5.8 g/dL (6.6-8.7) L 11/14/23 15:47 Albumin 3.3 g/dL (3.5-5.2) L 11/14/23 15:47 Globulin 2.5 g/dL (1.3-4.6) 11/14/23 15:47 TSH 7.37 uIU/mL (0.27-4.20) H 11/14/23 18:50 Hep Bs Antigen Non-reactive (Nonreactive) 11/15/23 09:55 Hep Bs Antibody 150.6 (11.5-1000) 11/15/23 09:55 Blood Type O Positive 11/14/23 16:30 Rho(D) Type Rh positive 11/14/23 16:30 Antibody Screen Negative 11/14/23 16:30 Crossmatch See Detail 11/14/23 16:30 Vitals Last Vital Signs Temp 97.6 F 11/16/23 04:00 Pulse 98 11/16/23 07:34 Resp 20 H 11/16/23 08:53 BP 107/67 11/16/23 07:11 Pulse Ox 95 11/16/23 08:53 O2 Del Method Nasal Cannula 11/16/23 07:34 O2 Flow Rate 2 11/16/23 07:34 Discharge Plan Discharge Patient Disposition: Xfer SNF Condition: Stable Prescriptions: New sucralfate 1 gram tablet 1 g PO BID 84 Days Qty: 168 0RF pantoprazole [Protonix] 40 mg tablet,delayed release (DR/EC) 40 mg PO BID 56 Days Qty: 112 0RF Continued tramadol 50 mg tablet 50 mg PO Q6H PRN (Reason: Pain, Mild) alprazolam [Xanax] 0.25 mg tablet 0.25 mg PO TID albuterol sulfate [Ventolin HFA] 90 mcg/actuation HFA aerosol inhaler 1 inh inhalation QID PRN (Reason: shortness of breath or wheezing) Qty: 8.5 3RF budesonide 0.5 mg/2 mL suspension for nebulization 0.5 mg inhalation BID Qty: 60 3RF budesonide-formoterol [Symbicort] 80-4.5 mcg/actuation HFA aerosol inhaler 2 puff INHALATION BID PRN (Reason: unknown) Qty: 10.2 2RF Lexapro 10 mg tablet 10 mg PO QAM Qty: 90 1RF ipratropium-albuterol 0.5 mg-3 mg(2.5 mg base)/3 mL solution for nebulization 3 ml INHALATION Q6H Qty: 180 3RF ropinirole 2 mg tablet 2 mg PO BEDTIME Qty: 90 1RF nitroglycerin 2.5 mg capsule, extended release 2.5 mg PO DAILY PRN (Reason: chest tightness) Qty: 30 0RF fluticasone propionate 50 mcg/actuation spray,suspension 2 spray intranasal DAILY PRN (Reason: Allergy Symptoms) Qty: 16 1RF (DME) Diabetic shoes See Rx Instructions .ROUTE .MEDSUPPLY Qty: 1 0RF Rx Instructions: With 3 pairs of inserts to the shoe guys (DME) four point rollaid with chair See Rx Instructions .Route .MEDSUPPLY Qty: 1 0RF Rx Instructions: As directed (DME) nebulizer See Rx Instructions .Route .MEDSUPPLY Qty: 1 0RF Rx Instructions: As directed (DME) nebulizer supplies (hose, mask,ect) See Rx Instructions .Route .MEDSUPPLY Qty: 1 1RF Rx Instructions: As directed (DME) oxygen concentrator See Rx Instructions .Route .MEDSUPPLY Qty: 1 0RF Rx Instructions: As directed (DME) shower chair See Rx Instructions .Route .MEDSUPPLY Qty: 1 1RF Rx Instructions: As directed (DME) toiler riser with handles See Rx Instructions .Route .MEDSUPPLY Qty: 1 0RF Rx Instructions: As directed (DME) [place] See Rx Instructions .Route .MEDSUPPLY Qty: 1 0RF Rx Instructions: As directed (DME) Crutches See Rx Instructions .Route .MEDSUPPLY Qty: 1 0RF Rx Instructions: As directed HOME acetaminophen 325 mg Tablet 650 mg PO Q6H PRN (Reason: PAIN OR INCREASED TEMP) ondansetron HCl 8 mg tablet 8 mg PO Q6H PRN (Reason: Nausea) pantoprazole [Protonix] 40 mg tablet,delayed release (DR/EC) 40 mg PO BID 28 Days Qty: 56 0RF sucralfate [Carafate] 1 gram tablet 1 g PO BID 28 Days Qty: 56 0RF doxycycline monohydrate 100 mg Tablet 100 mg PO BID Qty: 10 0RF midodrine 5 mg Tablet 10 mg PO TID PRN (Reason: Blood pressure below 100/90) 30 Days Qty: 180 0RF oxycodone-acetaminophen 5-325 mg tablet 0.5 - 1 tab PO Q4H PRN (Reason: Pain) cyanocobalamin (vitamin B-12) [Vitamin B-12] 1,000 mcg tablet 1,000 mcg PO DAILY RenaPlex-D 800 mcg-12.5 mg -2,000 unit tablet 1 tab PO BEDTIME tamsulosin [Flomax] 0.4 mg Capsule 0.4 mg PO BEDTIME bisacodyl 5 mg Tablet 10 mg PO DAILY PRN (Reason: Constipation) lanthanum [Fosrenol] 500 mg Tablet,Chewable 500 mg PO TID Rx Instructions: administer with food; chew thoroughly before swallowing atorvastatin 40 mg Tablet 40 mg PO BEDTIME 30 Days Qty: 30 0RF miconazole nitrate [Antifungal (miconazole)] 2 % cream 1 applic topical BID Qty: 30 0RF carbidopa-levodopa [Sinemet] 10-100 mg tablet 1 tab PO TID 30 Days Qty: 90 0RF Rx Instructions: start 10/21/2023 Santyl 250 unit/gram ointment 1 applic topical DAILY Qty: 30 0RF Rx Instructions: START ONLY AFTER PURULENCE BEHIND THE HEAD OF PENIS RESOLVES Discontinued amoxicillin-pot clavulanate 875-125 mg Tablet 1 tab PO BID Qty: 10 0RF aspirin 81 mg Tablet,Delayed Release (Dr/Ec) 81 mg PO DAILY 30 Days Qty: 30 0RF Discharge Orders: Discharge Order (Routine); Ordered 11/16/23 Ordered By: Patito Michael Referrals: [facility] [Outside] Sulma Zavala MD [Primary Care Provider] - Patient Instructions: Opioid Safety Discharge Attestations Time Spent in Discharge Care*: less than 30 min Status at Discharge: Cognitive status at discharge: cognitively intact, Behavioral status at discharge: cooperative, Quality Metrics Clinical Quality Measures [ No reported AMI, CVA or VTE this stay] Coding Level of Care Code Acute Code for Chg Fwd Diagnoses ESRD (end stage renal disease) N18.6 GI bleed K92.2
--- NOTE | 2023-11-16 10:12 | P.PN_ITS ---
Subjective 2 Subjective: s/p hD yesterday Medications: Reviewed: Yes Vitals/I&O/Wt Last Vital Signs Temp 97.6 F 11/16/23 04:00 Pulse 98 11/16/23 07:34 Resp 20 H 11/16/23 08:53 BP 107/67 11/16/23 07:11 Pulse Ox 95 11/16/23 08:53 O2 Del Method Nasal Cannula 11/16/23 07:34 O2 Flow Rate 2 11/16/23 07:34 11/15/23 11/16/23 11/16/23 22:59 06:59 14:59 Intake Total 60 / 60 240 / 240 Balance 60 / 60 240 / 240 Weight last 48 hrs Weight 123.009 kg Weight 125.827 kg Weight 125.191 kg Physical Exam 2 Narrative: awake , HEENT [id number] RRR per report Lungs clear per report no edema Data 11/16/23 04:36 11/16/23 04:36 A&P Assessment and plan (1) ESRD (end stage renal disease): 1. End-stage renal disease: s/p Hemodialysis yesterday ultrafiltration as tolerated 2. Severe anemia: Recurrent GI bleed, general surgery consulted. Had recent EGD. Will order SAL[place]. 3. Hypokalemia: Will run on 3K bath 4. History of CHF with recurrent admissions for volume overload, UF as tolerated Attestations 2 Medical Necessity Statement*: per medicine Coding Level of Care Code Acute Code for Chg Fwd Diagnoses ESRD (end stage renal disease) N18.6
[2023-11-16] MEDS: epoetin alfa 10,000 unit/mL INJ 10000 UNIT SUBCUT (11:07)
--- NOTE | 2023-11-16 11:22 | PC.NURSE ---
Report is called to JACOB Tracy at [facility]. Ready transport will take him back to [facility].
== END 2023-11-16 13:27 | disposition skilled nursing facility (03) | DRG 377 ==
LOC: ER 17:03 → MEDSURG 17:10
PROVIDERS: Hospitalist; Admitting Provider Family Medicine; Emergency Provider Emergency Medicine; PCP Family Medicine; Visit Provider Internal Medicine
DX: K92.2 Gastrointestinal hemorrhage, unspecified (principal); N18.6 End stage renal disease; I13.2 Hypertensive heart and chronic kidney disease with heart failure and with stage 5 chronic kidney disease, or end stage renal disease; I50.42 Chronic combined systolic (congestive) and diastolic (congestive) heart failure; K43.9 Ventral hernia without obstruction or gangrene; I48.91 Unspecified atrial fibrillation; E11.22 Type 2 diabetes mellitus with diabetic chronic kidney disease; D63.1 Anemia in chronic kidney disease; I34.0 Nonrheumatic mitral (valve) insufficiency; G89.29 Other chronic pain; J44.9 Chronic obstructive pulmonary disease, unspecified; E78.5 Hyperlipidemia, unspecified; G47.33 Obstructive sleep apnea (adult) (pediatric); E11.51 Type 2 diabetes mellitus with diabetic peripheral angiopathy without gangrene; E87.6 Hypokalemia; Z79.82 Long term (current) use of aspirin; Z99.2 Dependence on renal dialysis; I25.2 Old myocardial infarction; Z89.421 Acquired absence of other right toe(s); Z95.3 Presence of xenogenic heart valve; Z87.891 Personal history of nicotine dependence
CPT/HCPCS: 36415; 80048; 80053; 83605; 83880; 84443; 85014; 85018; 85025; 85610; 86706; 86850; 86900; 86920; 87340; 93005; 94640; 94664; 96372; 96374; 99285; J1644; J2470; P9016; Q3014; Q4081

== ENCOUNTER 2023-11-22 06:00 | Observation (INO) | payer OTHER, SELFPAY ==
[2023-11-22] VITALS (20 sets, daily range): BP systolic 94–127; BP diastolic 58–85; PULSE 74–107; RESP 10–155; TEMP 36.2–36.9; O2SAT 90–99; BMI 39.2; BMI 37.3
--- NOTE | 2023-11-22 06:18 | XRR_ITS ---
PROCEDURE INFORMATION: Exam: XR Chest Exam date and time: 11/22/2023 6:29 AM Age: 63 years old Clinical indication: Cough and shortness of breath; Prior surgery; Surgery date: 6+ months; Surgery type: Aortic valve. Dialysis cath. Patient HX: Cough with SOB and hypoxia. ; Additional info: Dyspnea/cough TECHNIQUE: Imaging protocol: Radiologic exam of the chest. Views: 1 view. COMPARISON: CR XR chest 1V portable [id number] 11/03/2023 2:08 PM FINDINGS: Tubes, catheters and devices: Bile cyst catheter terminates in the right atrium. Mild dense normal suture wires. Lungs: Mild vascular prominence. Unchanged mild bibasilar atelectasis or infiltrates. Pleural spaces: Unremarkable. No pleural effusion. No pneumothorax. Heart/Mediastinum: Stable mild cardiomegaly. Bones/joints: Unremarkable. XR/XR chest 1V portable [id number] IMPRESSION: No significant change.
--- NOTE | 2023-11-22 06:21 | ECG_ITS ---
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 Measurements Intervals [place] Rate: 105 P: -81 VA: 178 QRS: -57 QRSD: 148 T: 112 QT: 418 QTc: 555 Interpretive Statements SINUS TACHYCARDIA LEFT AXIS DEVIATION [QRS AXIS < -30] RIGHT BUNDLE BRANCH BLOCK [120+ ms QRS DURATION, UPRIGHT V1, 40+ ms S IN I/aVL/V4/V5/V6] POSSIBLE ANTERIOR MYOCARDIAL INFARCTION , OF INDETERMINATE AGE [30 ms Q WAVE IN V3/V4, OR R < 0.2 mV IN V4] Compared to ECG 11/14/2023 15:27:13 No significant changes Electronically Signed On 11-22-2023 11:16:51 CDT by Shayan Stout M.D. [email or web address]
--- NOTE | 2023-11-22 06:29 | W.ED.SOB ---
HPI - SOB/Dyspnea General: Chief Complaint: Shortness of Breath/Dyspnea Stated Complaint: Low O2 saturation, confusion Time Seen by Provider: 11/22/23 06:18 History of Present Illness: HPI Narrative: 63-year-old male presents to the emergency room with complaint of confusion and shortness of breath. Patient is coughing and is fully dependent on 3 L by nasal cannula at this time. He is able to answer questions to give some history he seems mildly confused. He denies chest pain. Patient has a history of end-stage renal disease congestive heart failure recent GI bleed generalized overall declining condition with decreasing activity is dependent on only her left. His last discharge summary on 11/15 he stated that he is on 2 L of oxygen intermittently although he states he is on 3 L continuously. Per EMS intermediate reported he recently was being treated with Levaquin for a bladder infection. There were positive blood culture for Klebsiella pneumonia on 821. He usually has dialysis on Wednesday. Patient states he has received all of his dialysis recently. Patient notes last time he sat up in a chair was about 3 days ago. We contacted the intermediate they reported he has been taking his oxygen off and he desatted they had been running him at about 2 to 3 L/min. They currently have him on Levaquin for a urinary tract infection that began on 11 18. There are no available cultures for this. Patient also previously was making urine and had a Holly in place and he had a balanitis and had had a Holly placed that was removed at the last hospitalization Associated symptoms: Reports orthopnea; Deny abdominal pain, chest pain or fever(s) Related Data Home Medications Medication Instructions Recorded Confirmed oxycodone-acetaminophen 5 mg-325 0.5 - 1 tab PO Q4H PRN Pain 07/15/22 11/22/23 mg tablet cyanocobalamin (vitamin B-12) 1,000 mcg PO DAILY 08/25/22 11/22/23 1,000 mcg tablet (Vitamin B-12) tramadol 50 mg tablet 50 mg PO Q6H PRN Pain, Mild 12/29/22 11/22/23 vit B,C-folic ac 800 mcg-zinc 12.5 1 tab PO BEDTIME 05/15/23 11/22/23 mg-selen-D3 2,000 unit-vit E tablet (RenaPlex-D) acetaminophen 325 mg tablet 650 mg PO Q6H PRN PAIN OR 08/16/23 11/22/23 INCREASED TEMP ondansetron HCl 8 mg tablet 8 mg PO Q6H PRN Nausea 08/16/23 11/22/23 bisacodyl 5 mg tablet 10 mg PO DAILY PRN Constipation 10/12/23 11/22/23 tamsulosin 0.4 mg capsule (Flomax) 0.4 mg PO BEDTIME 10/12/23 11/22/23 amiodarone 200 mg tablet 200 mg PO BEDTIME 11/22/23 11/22/23 atorvastatin 40 mg tablet 40 mg PO BEDTIME 11/22/23 11/22/23 carbidopa 10 mg-levodopa 100 mg 1 tab PO TID 11/22/23 11/22/23 tablet docusate sodium 100 mg capsule 200 mg PO BEDTIME 11/22/23 11/22/23 metronidazole 1 % topical gel See Rx Instructions .Route .COMPLEX 11/22/23 11/22/23 midodrine 10 mg tablet 10 mg PO TID PRN bp below 100/90 11/22/23 11/22/23 sucralfate 1 gram tablet 1 g PO Q12H 11/22/23 11/22/23 Previous Rx's Medication Instructions Recorded Cruthes #1 ea 05/11/23 albuterol sulfate 90 mcg/actuation 1 inh inhalation QID PRN shortness 06/01/23 aerosol inhaler (Ventolin HFA) of breath or wheezing #8.5 grams budesonide 0.5 mg/2 mL suspension 0.5 mg (2 mL) inhalation BID #60 mL 06/01/23 for nebulization budesonide-formoterol HFA 80 2 puff inhalation BID PRN unknown 06/01/23 mcg-4.5 mcg/actuation aerosol #10.2 grams inhaler (Symbicort) escitalopram oxalate 10 mg tablet 10 mg PO QAM #90 tabs 06/01/23 (Lexapro) fluticasone propionate 50 2 spray intranasal DAILY PRN 06/01/23 mcg/actuation nasal Allergy Symptoms #16 grams spray,suspension ipratropium 0.5 mg-albuterol 3 mg 3 ml inhalation Q6H Shortness Of 06/01/23 (2.5 mg base)/3 mL nebulization Breath #180 mL soln nitroglycerin 2.5 mg 2.5 mg PO DAILY PRN chest 06/01/23 capsule,extended release tightness #30 caps ropinirole 2 mg tablet 2 mg PO BEDTIME #90 tabs 06/01/23 Diabetic shoes #1 ea 06/04/23 four point rollaid with chair #1 06/04/23 nebulizer #1 ea 06/04/23 nebulizer supplies (hose, mask,ect) #1 ea 06/04/23 oxygen concentrator #1 ea 06/04/23 shower chair #1 ea 06/04/23 toiler riser with handles #1 ea 06/04/23 [place] #1 06/17/23 collagenase clostridium histo. 250 1 applic topical DAILY #30 grams 10/20/23 unit/gram topical ointment (Santyl) miconazole nitrate 2 % topical 1 applic topical BID #30 grams 10/20/23 cream (Antifungal (miconazole)) doxycycline monohydrate 100 mg 100 mg PO BID #10 tabs 11/04/23 tablet pantoprazole 40 mg tablet,delayed 40 mg PO BID 8 weeks #112 tabs 11/16/23 release (Protonix) Allergies Allergy/AdvReac Type Severity Reaction Status Date / Time latex Allergy Mild Blisters Verified 11/02/23 09:16 petrolatum,white Allergy Mild Blisters Verified 11/02/23 09:16 [From A and D Barrier] amlodipine Allergy Unknown Verified 11/02/23 09:16 Review of Systems Const: Denies: fever(s) or chills Card: Reports: edema, swelling of feet/ankles, dyspnea on exertion and orthopnea; Denies: chest pain Resp: Reports: dyspnea GI: Denies: abdominal pain : Denies: dysuria, urinary frequency or urinary urgency Musc: Denies: neck pain or back pain Skin/Breast: Denies: rash Neuro: Reports: confusion PFSH ED PFSH: Medical History (Updated 11/22/23 @ 13:05 by Lauro Srivastava DO) Anasarca ESRD (end stage renal disease) on dialysis GI bleed Ventral hernia ESRD (end stage renal disease) End stage renal disease on dialysis Lower extremity cellulitis Weakness Systolic and diastolic CHF, chronic End stage renal disease on dialysis Tachy-mariposa syndrome Macrocytic anemia Hypertension Acute exacerbation of congestive heart failure Bradycardia Hyperkalemia Acute hyperkalemia NSTEMI (non-ST elevated myocardial infarction) Chest pain Atrial fibrillation Moderate to severe mitral regurgitation Chronic pain Chronic GI bleeding Hiatal hernia High risk medication use Chronic anemia COPD (chronic obstructive pulmonary disease) Severe tobacco use disorder ESRD on hemodialysis History of renal dialysis Chronic kidney disease 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 Intermittent palpitations Hyperlipidemia XI (obstructive sleep apnea) DJD (degenerative joint disease) Atrial flutter PVD (peripheral vascular disease) Diabetes Surgical History 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 H/O aortic valve replacement with tissue graft H/O aortic valve replacement H/O foot surgery Family History Grandmother Diabetes Grandfather Diabetes Denies family history of CAD (coronary artery disease) Clotting disorder Dementia Chronic kidney disease (CKD) Suicide Anesthesia complication Bleeding disorder Lung disease Cancer Stroke Social History Smoking and tobacco/nicotine status: former use of tobacco/nicotine Alcohol intake: never Substance/Drug Use: never Lives independently: Yes (with girlfriend) Household members: significant other Marital status: Single service: No 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al status: disabled 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 Pets and animals: Yes Special araceli needs: No Agree to transfusion: Yes Physical Exam Const: GENERAL APPEARANCE: cooperative ORIENTATION/CONSCIOUSNESS: Yes awake HENMT: COMMON NORMALS: normocephalic, atraumatic and hearing grossly normal bilaterally HEAD & SCALP: normocephalic and atraumatic Resp: COMMON NORMALS: normal respiratory effort, No retractions and No use of accessory muscles AUSCULTATION: crackles and diminished lung sounds Cardio: COMMON NORMALS: No murmurs present (Cardio) RATE: tachycardic RHYTHM: abnormal rhythm irregularly irregular GI: COMMON NORMALS: Soft to palpation and No hepatosplenomegaly present AUSCULTATION: Yes normoactive bowel sounds PALPATION: Yes Soft to palpation, No Tenderness to palpation present (GI), No Guarding due to palpation present (GI) and Yes No hepatosplenomegaly present Extremity: OTHER: Changes of chronic venous stasis edema to the lower extremities. Anasarca up to the level of the axilla dependent Course Vital Signs: Vital signs: Vital Signs Temperature 97.8 F 11/22/23 12:51 Pulse Rate 103 H 11/22/23 12:51 Respiratory Rate 18 11/22/23 12:51 Blood Pressure 103/64 11/22/23 12:51 Pulse Oximetry 98 11/22/23 12:51 Oxygen Delivery Me thod Room Air 11/22/23 12:51 Oxygen Flow Rate 3 11/22/23 06:46 MDM - SOB/Dyspnea Medical Decision Making Congestive heart failure end-stage renal disease. Patient evidently missed his dialysis last week Wednesday he did get a regular run on Wednesday. He is severely all fluid overloaded at this point not requiring increased oxygen he is chronically anemic at his baseline. Troponins are elevated but I suspect this is from fluid overload he is not having any chest pain. Discussed with hospitalist will admit for consultation with nephrology dialysis. He has tolerated dialysis poorly at times in the past because of low blood pressures. Has generally been declining. Have discussed Dr. Zavala as well orders are written Medical Records I reviewed the patient's medical records. Lab Data I reviewed the patient's lab results. 11/22/23 06:36 11/22/23 06:36 Labs/Radiology: Radiology Impressions Chest X-Ray 11/22/23 06:18 IMPRESSION: No significant change. Laboratory Results WBC 6.60 10^3/uL (3.29-11.43) 11/22/23 06:36 RBC 2.73 10^6/uL (3.85-5.65) L 11/22/23 06:36 Hgb 8.60 g/dL (11.27-16.99) L 11/22/23 06:36 Hct 28.0 % (37-53) L 11/22/23 06:36 MCV 102.6 fl (82-101) H 11/22/23 06:36 MCH 31.5 pg (27-33) 11/22/23 06:36 MCHC 30.7 g/dL (30-55) 11/22/23 06:36 RDW 23.1 % (12.1-15.1) H 11/22/23 06:36 Plt Count 70 10^3/cmm (157-399) L 11/22/23 06:36 MPV 10.4 fL (7.4-10.4) 11/22/23 06:36 Neut % (Auto) 69.7 % 11/22/23 06:36 Lymph % (Auto) 16.8 % 11/22/23 06:36 [place] % (Auto) 12.1 % 11/22/23 06:36 Eos % (Auto) 0.3 % 11/22/23 06:36 Baso % (Auto) 0.8 % 11/22/23 06:36 Neut # (Auto) 4.60 10^3/uL (1.8-7.7) 11/22/23 06:36 Lymph # (Auto) 1.1 10^3/uL (0.8-4.8) 11/22/23 06:36 [place] # (Auto) 0.8 10^3/uL (0.2-0.9) 11/22/23 06:36 Eos # (Auto) 0.0 10^3/uL (0.0-0.8) 11/22/23 06:36 Baso # (Auto) 0.1 10^3/uL (0.0-0.1) 11/22/23 06:36 Nucleated RBC % (auto) 0 % 11/22/23 06:36 Nucleated RBCs # 0.0 /100WBC 11/22/23 06:36 Specimen Type Arterial 11/22/23 06:36 Sample Site Brachial, right 11/22/23 06:36 ABG pH 7.49 (7.35-7.45) H 11/22/23 06:36 ABG pCO2 42.1 mmHg (35-45) 11/22/23 06:36 ABG pO2 55.9 mmHg (80.0-100.0) L 11/22/23 06:36 ABG HCO3 31.9 mmol/L (22-26) H 11/22/23 06:36 ABG O2 Saturation 88.9 11/22/23 06:36 ABG Base Excess 7.8 mmol/L (-2.0-2.0) H 11/22/23 06:36 Kash Test N/a 11/22/23 06:36 A-a O2 Gradient Not Reportable 11/22/23 06:36 Hematocrit 27.0 % (42-52) L 11/22/23 06:36 Hgb O2 Saturation 86.1 % (95-100) L 11/22/23 06:36 Carboxyhemoglobin 2.7 %THgb (0.4-20.1) 11/22/23 06:36 Methemoglobin 0.4 % (0.4-1.5) 11/22/23 06:36 Total Hemoglobin 8.8 g/dL (14-18) L 11/22/23 06:36 Sodium 135.0 mmol/L (131-143) 11/22/23 06:36 Potassium 3.2 mmol/L (3.5-5.0) L 11/22/23 06:36 Glucose 95.0 mg/dL (70-115) 11/22/23 06:36 Ionized Calcium 1.2 mmol/L (1.1-1.4) 11/22/23 06:36 O2 Delivery Device Nc 11/22/23 06:36 O2 Liters/Min 3.0 % 11/22/23 06:36 FiO2 0.0 % 11/22/23 06:36 Molding Manager ID Andre 11/22/23 06:36 Sodium 139 mmol/L (136-145) 11/22/23 06:36 Potassium 4.0 mmol/L (3.5-5.1) 11/22/23 06:36 Chloride 94 mmol/L (98-107) L 11/22/23 06:36 Carbon Dioxide 30 mmol/L (22-29) H 11/22/23 06:36 Anion Gap 19.0 (5-19) 11/22/23 06:36 BUN 24 mg/dL (8-23) H 11/22/23 06:36 Creatinine 5.4 mg/dL (0.7-1.2) H 11/22/23 06:36 GFR Calculation 10.9 mL/min (90-130) L 11/22/23 06:36 Glucose 104 mg/dL (65-115) 11/22/23 06:36 Calculated Osmolality 292 mOsm/kg (285-295) 11/22/23 06:36 Lactic Acid 2.5 mmol/L (0.5-2.2) H 11/22/23 06:36 Lactic Acid (Sepsis) 1.6 mmol/L (0.5-2.2) 11/22/23 09:45 Calcium 9.1 mg/dL (8.5-10.5) 11/22/23 06:36 Magnesium 1.9 mg/dL (1.7-2.3) 11/22/23 06:36 Total Bilirubin 4.2 mg/dL (0.15-1.2) H 11/22/23 06:36 AST 57 U/L (0-40) H 11/22/23 06:36 ALT 8 U/L (0-41) 11/22/23 06:36 Alkaline Phosphatase 198 U/L (40-130) H 11/22/23 06:36 Troponin T Baseline 451 ng/L (0-15) H* 11/22/23 06:36 Troponin T 120 Minute 468.0 ng/L (0-15) H 11/22/23 08:25 Delta Troponin T 17.0 ABS# (0-10) H* 11/22/23 08:25 Total Protein 5.8 g/dL (6.6-8.7) L 11/22/23 06:36 Albumin 3.2 g/dL (3.5-5.2) L 11/22/23 06:36 Globulin 2.6 g/dL (1.3-4.6) 11/22/23 06:36 Lipase 9 U/L (13-60) L 11/22/23 06:36 Procalcitonin 1.34 ng/mL (0-0.5) H 11/22/23 06:36 All radiology interpretation(s) finalized by discharge Discharge Plan Discharge Patient Disposition: Admitted As Inpatient Admit Provider: Leander Zavala Clinical Impression: CHF (congestive heart failure), Balanoposthitis, End stage renal disease on dialysis, Hypoxia, Atrial fibrillation by electrocardiogram Condition: Stable Coding Level of Care Code ED Pattern Marker for Lillian Anne
[2023-11-22 06:47] LABS: ABG PCO2 42.1 mmHg (35-45); ABG PH Result 7.49 (7.35-7.45); Base Excess ABG 7.8 mmol/L (-2.0-2.0); Blood Gas Operator Identificat SAM; Blood Gas Sample Site Brachial, right; Blood Gas Sample Type Arterial; Carboxyhemoglobin 2.7 %THgb (0.4-20.1); HCO3 ABG 31.9 mmol/L (22-26); HGB O2 Sat 86.1 % (95-100); Ionized Calcium Level - ABG 1.2 mmol/L (1.1-1.4); Methemoglobin 0.4 % (0.4-1.5); Oxygen Device NC; Oxygen Saturation ABG 88.9; PO2 ABG 55.9 mmHg (80.0-100.0); Potassium Level - ABG 3.2 mmol/L (3.5-5.0); Total Hemoglobin 8.8 g/dL (14-18)
[2023-11-22 06:55] LABS: Basophils # 0.1 10^3/uL (0.0-0.1); Basophils % 0.8 %; Eosinophils % 0.3 %; Lymphocytes # 1.1 10^3/uL (0.8-4.8); Lymphocytes % 16.8 %; Mean Corpuscular HGB Conc 30.7 g/dL (30-55); Mean Corpuscular Hemoglobin 31.5 pg (27-33); Mean Corpuscular Volume 102.6 fl (82-101); Mean Platelet Volume 10.4 fL (7.4-10.4); Monocytes # 0.8 10^3/uL (0.2-0.9); Monocytes % 12.1 %; Neutrophils % 69.7 %; Nucleated Red Blood Cells % 0 %; Platelet Count 70 10^3/cmm (157-399); Red Blood Count 2.73 10^6/uL (3.85-5.65); Red Cell Distribution Width 23.1 % (12.1-15.1)
[2023-11-22 07:10] LABS: Alanine Aminotransferase 8 U/L (0-41); Albumin Level 3.2 g/dL (3.5-5.2); Alkaline Phosphatase 198 U/L (40-130); Aspartate Amino Transferase 57 U/L (0-40); Blood Urea Nitrogen 24 mg/dL (8-23); Calcium 9.1 mg/dL (8.5-10.5); Carbon Dioxide 30 mmol/L (22-29); Chloride 94 mmol/L (98-107); Creatinine Clr Calc Pharmacy 18.5731; Globulin 2.6 g/dL (1.3-4.6); Glomerular Filtration Rate 10.9 mL/min (90-130); Glucose 104 mg/dL (65-115); Lipase 9 U/L (13-60); Magnesium 1.9 mg/dL (1.7-2.3); Osmolality Calculated 292 mOsm/kg (285-295); Sodium 139 mmol/L (136-145); Total Bilirubin 4.2 mg/dL (0.15-1.2); Total Protein 5.8 g/dL (6.6-8.7)
[2023-11-22 07:11] LABS: Lactic Sepsis W/Reflex 2.5 mmol/L (0.5-2.2)
[2023-11-22 07:15] LABS: Troponin(5th) Baseline 451 ng/L (0-15)
--- NOTE | 2023-11-22 08:21 | ECG_ITS ---
[facility] Test Date: 2023-11-22 Pat Name: Richard Huffman Department: Room: Gender: Male Chief Ophthalmic Technician: : 1960 Requested By: Lauro Franks Order Number: [id number] Kisha MD: Shayan Stout M.D. Measurements Intervals [place] Rate: 103 P: 240 AK: 166 QRS: -59 QRSD: 157 T: 98 QT: 441 QTc: 580 Interpretive Statements SINUS TACHYCARDIA LEFT AXIS DEVIATION [QRS AXIS < -30] RIGHT BUNDLE BRANCH BLOCK [120+ ms QRS DURATION, UPRIGHT V1, 40+ ms S IN I/aVL/V4/V5/V6] POSSIBLE ANTERIOR MYOCARDIAL INFARCTION , PROBABLY OLD [30 ms Q WAVE IN V3/V4, OR R < 0.2 mV IN V4] Compared to ECG 11/22/2023 06:06:48 No significant changes Electronically Signed On 11-22-2023 11:18:05 CDT by Shayan Stout M.D. [email or web address]
[2023-11-22 08:28] LABS: Reflex Lactate Order REFLEX LACTIC ORDERD
--- NOTE | 2023-11-22 09:24 | P.HP_ITS ---
Providers/Chief Complaint 2 Admitting Physician: Leander Zavala MD Primary Care Provider: Sulma Zavala MD Chief Complaint: Low O2 saturation, confusion History of Present Illness Richard Huffman is a 63 year old male with end-stage renal disease on hemodialysis, recent dialysis, history of A-fib off anticoagulation secondary to GI bleed, history of CHF with fluid overload, history of noncompliance with dialysis presenting with complaints of shortness of breath this morning, requiring 3 L of oxygen with borderline saturation. Most recent discharge was 11/15 for GI bleed. When I talked to the nursing facility nurses they report he is intermittently confused, on 2 3 L of oxygen, and skipped dialysis last week as he did not feel good. This was on Wednesday. They report no fevers. They do report confusion seems to come and go, and is especially apparent when he skips dialysis. Patient himself cannot give much history. Really denies any chest discomfort, or significant complaints now. Review of Systems 2 General: Reports: 10 or more systems reviewed and unremarkable except in HPI and below Card: Denies: chest pain Resp: Denies: dyspnea GI: Denies: abdominal pain Medications/Allergies Home Medications Medication Instructions Recorded Confirmed Last Taken Type oxycodone-acetaminophen 5 mg-325 0.5 - 1 tab PO Q4H PRN Pain 07/15/22 11/22/23 11/19/23 History mg tablet cyanocobalamin (vitamin B-12) 1,000 mcg PO DAILY 08/25/22 11/22/23 11/21/23 History 1,000 mcg tablet (Vitamin B-12) tramadol 50 mg tablet 50 mg PO Q6H PRN Pain, Mild 12/29/22 11/22/23 11/09/23 History Cruthes #1 ea 05/11/23 11/22/23 Unknown Rx vit B,C-folic ac 800 mcg-zinc 12.5 1 tab PO BEDTIME 05/15/23 11/22/23 11/21/23 History mg-selen-D3 2,000 unit-vit E tablet (RenaPlex-D) albuterol sulfate 90 mcg/actuation 1 inh inhalation QID PRN shortness 06/01/23 11/22/23 Unknown Rx aerosol inhaler (Ventolin HFA) of breath or wheezing #8.5 grams budesonide 0.5 mg/2 mL suspension 0.5 mg (2 mL) inhalation BID #60 mL 06/01/23 11/22/23 11/21/23 Rx for nebulization budesonide-formoterol HFA 80 2 puff inhalation BID PRN unknown 06/01/23 11/22/23 Unknown Rx mcg-4.5 mcg/actuation aerosol #10.2 grams inhaler (Symbicort) escitalopram oxalate 10 mg tablet 10 mg PO QAM #90 tabs 06/01/23 11/22/23 11/21/23 Rx (Lexapro) fluticasone propionate 50 2 spray intranasal DAILY PRN 06/01/23 11/22/23 Unknown Rx mcg/actuation nasal Allergy Symptoms #16 grams spray,suspension ipratropium 0.5 mg-albuterol 3 mg 3 ml inhalation Q6H Shortness Of 06/01/23 11/22/23 11/03/23 Rx (2.5 mg base)/3 mL nebulization Breath #180 mL soln nitroglycerin 2.5 mg 2.5 mg PO DAILY PRN chest 06/01/23 11/22/23 08/27/23 Rx capsule,extended release tightness #30 caps ropinirole 2 mg tablet 2 mg PO BEDTIME #90 tabs 06/01/23 11/22/23 11/21/23 Rx Diabetic shoes #1 ea 06/04/23 11/22/23 Unknown Rx four point rollaid with chair #1 ea 06/04/23 11/22/23 Unknown Rx nebulizer #1 ea 06/04/23 11/22/23 Unknown Rx nebulizer supplies (hose, mask,ect) #1 ea 06/04/23 11/22/23 Unknown Rx oxygen concentrator #1 ea 06/04/23 11/22/23 Unknown Rx shower chair #1 ea 06/04/23 11/22/23 Unknown Rx toiler riser with handles #1 ea 06/04/23 11/22/23 Unknown Rx [place] #1 ea 06/17/23 11/22/23 Unknown Rx acetaminophen 325 mg tablet 650 mg PO Q6H PRN PAIN OR 08/16/23 11/22/23 10/07/23 History INCREASED TEMP ondansetron HCl 8 mg tablet 8 mg PO Q6H PRN Nausea 08/16/23 11/22/23 09/09/23 History bisacodyl 5 mg tablet 10 mg PO DAILY PRN Constipation 10/12/23 11/22/23 11/04/23 History tamsulosin 0.4 mg capsule (Flomax) 0.4 mg PO BEDTIME 10/12/23 11/22/23 11/21/23 History collagenase clostridium histo. 250 1 applic topical DAILY #30 grams 10/20/23 11/22/23 11/21/23 Rx unit/gram topical ointment (Santyl) miconazole nitrate 2 % topical 1 applic topical BID #30 grams 10/20/23 11/22/23 11/21/23 Rx cream (Antifungal (miconazole)) doxycycline monohydrate 100 mg 100 mg PO BID #10 tabs 11/04/23 11/22/23 11/21/23 Rx tablet pantoprazole 40 mg tablet,delayed 40 mg PO BID 8 weeks #112 tabs 11/16/23 11/22/23 11/21/23 Rx release (Protonix) amiodarone 200 mg tablet 200 mg PO BEDTIME 11/22/23 11/22/23 11/21/23 History atorvastatin 40 mg tablet 40 mg PO BEDTIME 11/22/23 11/22/23 11/21/23 History carbidopa 10 mg-levodopa 100 mg 1 tab PO TID 11/22/23 11/22/23 11/21/23 History tablet docusate sodium 100 mg capsule 200 mg PO BEDTIME 11/22/23 11/22/23 11/21/23 History metronidazole 1 % topical gel See Rx Instructions .Route .COMPLEX 11/22/23 11/22/23 11/21/23 History midodrine 10 mg tablet 10 mg PO TID PRN bp below 100/90 11/22/23 11/22/23 11/12/23 History sucralfate 1 gram tablet 1 g PO Q12H 11/22/23 11/22/23 11/21/23 History Allergies Allergy/AdvReac Type Severity Reaction Status Date / Time latex Allergy Mild Blisters Verified 11/02/23 09:16 petrolatum,white Allergy Mild Blisters Verified 11/02/23 09:16 [From A and D Barrier] amlodipine Allergy Unknown Verified 11/02/23 09:16 PFSH Acute 2 PFSH: Medical History (Updated 11/22/23 @ 09:37 by Leander Zavala MD) Anasarca ESRD (end stage renal disease) on dialysis GI bleed Ventral hernia ESRD (end stage renal disease) End stage renal disease on dialysis Lower extremity cellulitis Weakness Systolic and diastolic CHF, chronic End stage renal disease on dialysis Tachy-mariposa syndrome Macrocytic anemia Hypertension Acute exacerbation of congestive heart failure Bradycardia Hyperkalemia Acute hyperkalemia NSTEMI (non-ST elevated myocardial infarction) Chest pain Atrial fibrillation Moderate to severe mitral regurgitation Chronic pain Chronic GI bleeding Hiatal hernia High risk medication use Chronic anemia COPD (chronic obstructive pulmonary disease) Severe tobacco use disorder ESRD on hemodialysis History of renal dialysis Chronic kidney disease 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 Intermittent palpitations Hyperlipidemia XI (obstructive sleep apnea) DJD (degenerative joint disease) Atrial flutter PVD (peripheral vascular disease) Diabetes Surgical History 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 H/O aortic valve replacement with tissue graft H/O aortic valve replacement H/O foot surgery Family History Grandmother Diabetes Grandfather Diabetes Denies family history of CAD (coronary artery disease) Clotting disorder Dementia Chronic kidney disease (CKD) Suicide Anesthesia complication Bleeding disorder Lung disease Cancer Stroke Social History Smoking and tobacco/nicotine status: former use of tobacco/nicotine Alcohol intake: never Substance/Drug Use: never Lives independently: Yes (with girlfriend) Household members: significant other Marital status: Single service: No 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al status: disabled 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 Pets and animals: Yes Special araceli needs: No Agree to transfusion: Yes Vitals/I&O/Wt Last Vital Signs Temp 98.5 F 11/22/23 06:02 Pulse 105 H 11/22/23 09:00 Resp 18 11/22/23 09:00 BP 116/85 11/22/23 09:00 Pulse Ox 98 11/22/23 09:00 O2 Del Method Nasal Cannula 11/22/23 09:00 O2 Flow Rate 3 11/22/23 06:46 Weight last 48 hrs Weight 122.47 kg Physical Exam 2 Narrative: General exam is a white male, oriented to self and can answer a few minor questions. I suspect this may be his baseline of late. Anasarca is noted HEENT: Atraumatic normocephalic. Oropharynx is clear Neck is supple Cardiovascular regular rate and rhythm with a 2/6 systolic murmur Lungs a few bibasilar crackles Abdomen is soft nontender positive bowel sounds. Large ventral hernias noted exam demonstrates normal male penis, circumcised, with some erosion on the dorsal surface Extremities with 2+ edema. Some edema noted on his back as well. Skin venous stasis changes Neuro no focal deficits Data 11/22/23 06:36 11/22/23 06:36 Other Labs: EKG demonstrates a rate of 105, sinus, right bundle branch Chest x-ray with cardiomegaly, dialysis catheter, sternotomy wires, no new infiltrate ABG demonstrates pH 7.49, pCO2 42, pO2 56 on 3 L Lactic acid 2.5 Total bili 4.2, AST 57 Troponin 451 with repeat of 468 Albumin 3.2 Lipase 9 I have ordered a procalcitonin Urinalysis is ordered Blood cultures were drawn Last echo 10/05 demonstrated EF around 50%, aortic valve prosthesis,Diffuse hypokinesis right ventricle Last angiogram 01/04 demonstrated mild coronary disease, no intervention needed severe pulmonary hypertension noted on cath with pulmonary artery pressure 87/35 Micro: Microbiology 11/22/23 06:36 Blood Culture - Preliminary Blood SPECIMEN COLLECTED 11/22/23 06:36 Blood Culture - Preliminary Blood SPECIMEN COLLECTED A&P Assessment and plan (1) Anasarca: Patient with anasarca He has hypoxia and evidence of fluid overload He skipped dialysis last Wednesday, and has been noncompliant intermittently in the past He has frequent hospitalizations for this Nephrology consult for dialysis Hypotension could be problematic secondary to his severe pulmonary hypertension. He is currently on midodrine Observation. I suspect with dialysis his confusion will improve, hypoxia will improve. Nephrology will decide whether dialysis is needed tomorrow. Hopefully this hospital stay can be fairly short. (2) Hypoxia: See above (3) CHF (congestive heart failure): Patient with history of EF of 50%, marked pulmonary hypertension Dialysis will be effective in removing his extra fluid (4) Atrial fibrillation by electrocardiogram: Patient currently in sinus rhythm Continue home medication of amiodarone (5) ESRD (end stage renal disease) on dialysis: Patient with end-stage renal disease, frequently noncompliant with hemodialysis Encourage compliance Plan Elevated troponin. No reason to work up. This is secondary to his end-stage renal disease and heart failure. He has history of recent angiogram with minimal disease. Elevated lactic acid. Suspect secondary to ESRD. Check procalcitonin Intermittent confusion. Apparently this has been his baseline for some time according to the nursing facility and son who I spoke to regarding his care as well. Multiple other medical problems as outlined in past medical history Full code currently SCDs for DVT prophylaxis secondary to recurrent GI bleeding history Attestations 2 Medical Necessity Statement*: Will need less than 2 midnight stay for evaluation and treatment of fluid overload with end-stage renal disease. Diagnoses Anasarca R60.1 Hypoxia R09.02 CHF (congestive heart failure) I50.9 Atrial fibrillation by electrocardiogram I48.91 ESRD (end stage renal disease) on dialysis N18.6; Z99.2 Time Spent (min) 55
[2023-11-22 10:06] LABS: Procalcitonin 1.34 ng/mL (0-0.5)
[2023-11-22 10:07] LABS: Lactic Acid level (Lactate) 1.6 mmol/L (0.5-2.2)
[2023-11-22] MEDS: sucralfate 1 gm Tablet PO (12:17)
--- NOTE | 2023-11-22 12:21 | ECG_ITS ---
[facility] Test Date: 2023-11-22 Pat Name: Richard Huffman Department: Room: 259 Gender: Male Hearing Consultant: : 1960 Requested By: Lauro Franks Order Number: [id number] Kisha MD: Shayan Stout M.D. Measurements Intervals [place] Rate: 102 P: 0 [place]: 0 QRS: -46 QRSD: 160 T: 102 QT: 446 QTc: 582 Interpretive Statements SUPRAVENTRICULAR RHYTHM RIGHT BUNDLE BRANCH BLOCK [120+ ms QRS DURATION, UPRIGHT V1, 40+ ms S IN I/aVL/V4/V5/V6] POSSIBLE ANTERIOR MYOCARDIAL INFARCTION , OF INDETERMINATE AGE [30 ms Q WAVE IN V3/V4, OR R < 0.2 mV IN V4] INFERIOR MYOCARDIAL INFARCTION , PROBABLY OLD [40+ ms Q WAVE AND/OR ST/T ABNORMALITY IN II/aVF] Compared to ECG 11/22/2023 08:25:17 Sinus tachycardia no longer present Left-axis deviation no longer present Myocardial infarct finding still present Electronically Signed On 11-23-2023 7:51:01 CDT by Shayan Stout M.D. [id number]
--- NOTE | 2023-11-22 12:29 | P.CONIM_ITS ---
Providers/Reason For Consult 2 Consulting Physician/Specialty*: aicha sin md / telenephrology Reason for Consult*: ESRD, AMS, SOB Requesting Physician: Dr Edilia Zavala Attending Physician: Leander Zavala MD Primary Care Provider: Sulma Zavala MD History of Present Illness History of Present Illness Richard Huffman is a 63 year old male history of ESRD on dialysis Wednesday, A-fib, GI bleed, off of anticoagulation. History of heart failure was recently discharged last week. Has history of intermittent altered mental status and waxing and waning mental status. Patient presents now with shortness of breath and confusion. Patient also has chronic leg edema. In A-fib Review of Systems 2 Narrative: The patient is short of breath and confused. The patient is not able to give me a history of history therefore ascertained via the nurse and reviewed the chart and discussed in with Medications/Allergies Home Medications Medication Instructions Recorded Confirmed Last Taken Type oxycodone-acetaminophen 5 mg-325 0.5 - 1 tab PO Q4H PRN Pain 07/15/22 11/22/23 11/19/23 History mg tablet cyanocobalamin (vitamin B-12) 1,000 mcg PO DAILY 08/25/22 11/22/23 11/21/23 History 1,000 mcg tablet (Vitamin B-12) tramadol 50 mg tablet 50 mg PO Q6H PRN Pain, Mild 12/29/22 11/22/23 11/09/23 History Cruthes #1 ea 05/11/23 11/22/23 Unknown Rx vit B,C-folic ac 800 mcg-zinc 12.5 1 tab PO BEDTIME 05/15/23 11/22/23 11/21/23 History mg-selen-D3 2,000 unit-vit E tablet (RenaPlex-D) albuterol sulfate 90 mcg/actuation 1 inh inhalation QID PRN shortness 06/01/23 11/22/23 Unknown Rx aerosol inhaler (Ventolin HFA) of breath or wheezing #8.5 grams budesonide 0.5 mg/2 mL suspension 0.5 mg (2 mL) inhalation BID #60 mL 06/01/23 11/22/23 11/21/23 Rx for nebulization budesonide-formoterol HFA 80 2 puff inhalation BID PRN unknown 06/01/23 11/22/23 Unknown Rx mcg-4.5 mcg/actuation aerosol #10.2 grams inhaler (Symbicort) escitalopram oxalate 10 mg tablet 10 mg PO QAM #90 tabs 06/01/23 11/22/23 11/21/23 Rx (Lexapro) fluticasone propionate 50 2 spray intranasal DAILY PRN 06/01/23 11/22/23 Unknown Rx mcg/actuation nasal Allergy Symptoms #16 grams spray,suspension ipratropium 0.5 mg-albuterol 3 mg 3 ml inhalation Q6H Shortness Of 06/01/23 11/22/23 11/03/23 Rx (2.5 mg base)/3 mL nebulization Breath #180 mL soln nitroglycerin 2.5 mg 2.5 mg PO DAILY PRN chest 06/01/23 11/22/23 08/27/23 Rx capsule,extended release tightness #30 caps ropinirole 2 mg tablet 2 mg PO BEDTIME #90 tabs 06/01/23 11/22/23 11/21/23 Rx Diabetic shoes #1 ea 06/04/23 11/22/23 Unknown Rx four point rollaid with chair #1 ea 06/04/23 11/22/23 Unknown Rx nebulizer #1 ea 06/04/23 11/22/23 Unknown Rx nebulizer supplies (hose, mask,ect) #1 ea 06/04/23 11/22/23 Unknown Rx oxygen concentrator #1 ea 06/04/23 11/22/23 Unknown Rx shower chair #1 ea 06/04/23 11/22/23 Unknown Rx toiler riser with handles #1 ea 06/04/23 11/22/23 Unknown Rx [place] #1 ea 06/17/23 11/22/23 Unknown Rx acetaminophen 325 mg tablet 650 mg PO Q6H PRN PAIN OR 08/16/23 11/22/23 10/07/23 History INCREASED TEMP ondansetron HCl 8 mg tablet 8 mg PO Q6H PRN Nausea 08/16/23 11/22/23 09/09/23 History bisacodyl 5 mg tablet 10 mg PO DAILY PRN Constipation 10/12/23 11/22/23 11/04/23 History tamsulosin 0.4 mg capsule (Flomax) 0.4 mg PO BEDTIME 10/12/23 11/22/23 11/21/23 History collagenase clostridium histo. 250 1 applic topical DAILY #30 grams 10/20/23 11/22/23 11/21/23 Rx unit/gram topical ointment (Santyl) miconazole nitrate 2 % topical 1 applic topical BID #30 grams 10/20/23 11/22/23 11/21/23 Rx cream (Antifungal (miconazole)) doxycycline monohydrate 100 mg 100 mg PO BID #10 tabs 11/04/23 11/22/23 11/21/23 Rx tablet pantoprazole 40 mg tablet,delayed 40 mg PO BID 8 weeks #112 tabs 11/16/23 11/22/23 11/21/23 Rx release (Protonix) amiodarone 200 mg tablet 200 mg PO BEDTIME 11/22/23 11/22/23 11/21/23 History atorvastatin 40 mg tablet 40 mg PO BEDTIME 11/22/23 11/22/23 11/21/23 History carbidopa 10 mg-levodopa 100 mg 1 tab PO TID 11/22/23 11/22/23 11/21/23 History tablet docusate sodium 100 mg capsule 200 mg PO BEDTIME 11/22/23 11/22/23 11/21/23 History metronidazole 1 % topical gel See Rx Instructions .Route .COMPLEX 11/22/23 11/22/23 11/21/23 History midodrine 10 mg tablet 10 mg PO TID PRN bp below 100/90 11/22/23 11/22/23 11/12/23 History sucralfate 1 gram tablet 1 g PO Q12H 11/22/23 11/22/23 11/21/23 History Allergies Allergy/AdvReac Type Severity Reaction Status Date / Time latex Allergy Mild Blisters Verified 11/02/23 09:16 petrolatum,white Allergy Mild Blisters Verified 11/02/23 09:16 [From A and D Barrier] amlodipine Allergy Unknown Verified 11/02/23 09:16 Current Medications Generic Name Dose Route Start Last Admin Trade Name Freq PRN Reason Stop Dose Admin Sucralfate 1 gm 11/22/23 11:34 11/22/23 12:17 Sucralfate 1 Gm Tablet PO 1 gm Q12H KENNEDY Administration PFSH Acute 2 PFSH: Medical History (Updated 11/22/23 @ 09:37 by Leander Zavala MD) Anasarca ESRD (end stage renal disease) on dialysis GI bleed Ventral hernia ESRD (end stage renal disease) End stage renal disease on dialysis Lower extremity cellulitis Weakness Systolic and diastolic CHF, chronic End stage renal disease on dialysis Tachy-mariposa syndrome Macrocytic anemia Hypertension Acute exacerbation of congestive heart failure Bradycardia Hyperkalemia Acute hyperkalemia NSTEMI (non-ST elevated myocardial infarction) Chest pain Atrial fibrillation Moderate to severe mitral regurgitation Chronic pain Chronic GI bleeding Hiatal hernia High risk medication use Chronic anemia COPD (chronic obstructive pulmonary disease) Severe tobacco use disorder ESRD on hemodialysis History of renal dialysis Chronic kidney disease 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 Intermittent palpitations Hyperlipidemia XI (obstructive sleep apnea) DJD (degenerative joint disease) Atrial flutter PVD (peripheral vascular disease) Diabetes Surgical History 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 H/O aortic valve replacement with tissue graft H/O aortic valve replacement H/O foot surgery Family History Grandmother Diabetes Grandfather Diabetes Denies family history of CAD (coronary artery disease) Clotting disorder Dementia Chronic kidney disease (CKD) Suicide Anesthesia complication Bleeding disorder Lung disease Cancer Stroke Social History Smoking and tobacco/nicotine status: former use of tobacco/nicotine Alcohol intake: never Substance/Drug Use: never Lives independently: Yes (with girlfriend) Household members: significant other Marital status: Single service: No 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al status: disabled 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 Vital signs noted. HEENT normocephalic atraumatic. Neck is supple Lungs rhonchi and crackles bilaterally. Heart irregular irregular, + systolic murmur. Abdomen soft positive bowel sounds. Extremities 1+ edema. Patient has a right anterior chest wall dialysis access Neuro patient awake alert oriented to name he does not know where he is or why he is here. Data 11/22/23 06:36 11/22/23 06:36 Micro: Microbiology 11/22/23 06:36 Blood Culture - Preliminary Blood SPECIMEN COLLECTED 11/22/23 06:36 Blood Culture - Preliminary Blood SPECIMEN COLLECTED A&P Assessment and plan (1) ESRD (end stage renal disease) on dialysis: 63-year-old gentleman history of heart failure with pulmonary hypertension, diastolic dysfunction and EF of 50%., A-fib, GI bleed, ESRD. Patient is here now with confusion and hypoxemia. 1. I reviewed his chest x-ray appears similar to last time patient has mild effusions. 2. ESRD missed dialysis and altered mental status we will dialyze the patient today to see if this helps with his mental status will use a lower bicarbonate. 3. Anemia stable hemoglobin of 8.6. Patient had recent high ferritin's. Patient has worsening chronic thrombocytopenia platelets now 70 4. Patient has a metabolic alkalosis with mild lactic acidosis. Monitor for vomiting. Normal calcium. 5. TSH 7.37 last week - normal vitamin D level in august 2023 6. Altered mental status history of UTIs consider sending urinalysis and culture Patient was seen and examined with the nurse. Audiovisual equipment was used. Plan see above Consult Attestations 2 Medical Necessity Statement: ams, sob, met alkalosis, esrd Time Spent in Patient Care: Greater than 35 minutes (>than 50% of time spent in counselling and/or direct pt care on unit) . Coding Level of Care Code Acute Code for [facility] Fwd Diagnoses ESRD (end stage renal disease) on dialysis N18.6; Z99.2
[2023-11-22] MEDS: ipratropium-albuterol 3 mL Neb INHALATION ×2 (13:09→20:23)
--- NOTE | 2023-11-22 14:05 | PC.HD ---
Per internet consultant's orders, heparin 1000 units loading dose administered at 1329 via venous port of HD catheter. Also, per internet consultant's verbal orders, dialysate bicarb changed from 35 mEq/L to 30 mEq/L.
[2023-11-22 14:12] LABS: Troponin 5 6HR 435.9 ng/L (0-15); Troponin 5 6HR Delta -15.1 ng/L (0-12)
[2023-11-22 15:07] LABS: Hepatitis B Surface AB 127.1 (11.5-1000); Hepatitis B Surface Antigen Non-Reactive (Nonreactive); Hepatitis C Virus Antibody Non-Reactive (Nonreactive)
[2023-11-22] MEDS: pantoprazole DR 40 mg Tablet PO (17:57)
[2023-11-22] MEDS: budesonide 0.5 mg/2 mL Neb INHALATION (20:23)
[2023-11-22] MEDS: atorvastatin 40 mg Tablet PO (20:50)
[2023-11-22] MEDS: amiodarone 200 mg Tablet PO (20:50)
[2023-11-22] MEDS: tamsulosin 0.4 mg Capsule PO (20:50)
[2023-11-22] MEDS: docusate sodium 100 mg Capsule 200 MG PO (20:50)
[2023-11-23] VITALS (7 sets, daily range): BP systolic 94–107; BP diastolic 52–68; PULSE 105–106; RESP 13–22; TEMP 36.4–36.6; O2SAT 95–100
[2023-11-23] MEDS: sucralfate 1 gm Tablet PO ×2 (00:54→11:05)
--- NOTE | 2023-11-23 04:23 | CTR_ITS ---
PROCEDURE INFORMATION: Exam: CT Head Without Contrast Exam date and time: 11/23/2023 4:32 AM Age: 63 years old Clinical indication: Speech disturbance and weakness, extremity; Bilateral; Additional info: Espressive aphagia TECHNIQUE: Imaging protocol: Computed tomography of the head without contrast. Radiation optimization: All CT scans at this facility use at least one of these dose optimization techniques: automated exposure control; mA and/or kV adjustment per patient size (includes targeted exams where dose is matched to clinical indication); or iterative reconstruction. COMPARISON: CT head wo con* [id number] 11/04/2023 12:29 PM RADIATION DOSE METRICS: Total DLP (mGy-cm): 1063.85 FINDINGS: Brain: There is prominence of the subarachnoid spaces compatible with atrophy. There is small-vessel ischemic change within the periventricular white matter. No acute stroke or hemorrhage is appreciated. Cerebral ventricles: No ventriculomegaly. Paranasal sinuses: Visualized sinuses are unremarkable. No fluid levels. Mastoid air cells: Visualized mastoid air cells are well aerated. Bones: Unremarkable. No acute fracture. Soft tissues: Unremarkable. CT/CT head wo con* [id number] IMPRESSION: 1. Atrophy with small-vessel ischemic change.
[2023-11-23 04:28] LABS: Glucose Point of Care 101 mg/dL (70-110)
[2023-11-23 04:33] LABS: Basophils % 0.8 %; Eosinophils % 0.6 %; Hematocrit 29.7 % (37-53); Lymphocytes # 0.7 10^3/uL (0.8-4.8); Lymphocytes % 15.5 %; Mean Corpuscular HGB Conc 29.6 g/dL (30-55); Mean Corpuscular Hemoglobin 31.9 pg (27-33); Mean Corpuscular Volume 107.6 fl (82-101); Mean Platelet Volume 11.5 fL (7.4-10.4); Monocytes # 0.9 10^3/uL (0.2-0.9); Neutrophils # 3.08 10^3/uL (1.8-7.7); Neutrophils % 64.7 %; Nucleated Red Blood Cells % 0 %; Platelet Count 72 10^3/cmm (157-399); Red Blood Count 2.76 10^6/uL (3.85-5.65); Red Cell Distribution Width 23.3 % (12.1-15.1); White Blood Count 4.77 10^3/uL (3.29-11.43)
--- NOTE | 2023-11-23 04:37 | CTR_ITS ---
PROCEDURE INFORMATION: Exam: CTA Head With Contrast, Arteriography Exam date and time: 11/23/2023 4:37 AM Age: 63 years old Clinical indication: Speech disturbance and weakness; Slurred speech; Additional info: AMS, wordfinding difficulty TECHNIQUE: Imaging protocol: Computed tomographic angiography of the head with contrast. Exam focused on the arteries. 3D rendering (Not supervised by radiologist): MIP and/or 3D reconstructed images were created by the technologist. Radiation optimization: All CT scans at this facility use at least one of these dose optimization techniques: automated exposure control; mA and/or kV adjustment per patient size (includes targeted exams where dose is matched to clinical indication); or iterative reconstruction. Contrast material: OMNI 350; Contrast volume: 75 ml; Contrast route: INTRAVENOUS (IV); COMPARISON: CT head wo con* [id number] 11/23/2023 4:32 AM RADIATION DOSE METRICS: Total DLP (mGy-cm): 477.56 FINDINGS: ANTERIOR CIRCULATION: Right internal carotid artery: Intracranial segment is patent with no significant stenosis. No aneurysm. Right middle cerebral artery: No occlusion or significant stenosis. No aneurysm. Right anterior cerebral artery: No occlusion or significant stenosis. No aneurysm. Left internal carotid artery: Intracranial segment is patent with no significant stenosis. No aneurysm. Left middle cerebral artery: No occlusion or significant stenosis. No aneurysm. Left anterior cerebral artery: No occlusion or significant stenosis. No aneurysm. POSTERIOR CIRCULATION: Right vertebral artery: Small. Ends in PICA. Left vertebral artery: No occlusion or significant stenosis. No aneurysm. Basilar artery: No occlusion or significant stenosis. No aneurysm. Right posterior cerebral artery: Primarily supplied via the anterior circulation. No occlusion. Left posterior cerebral artery: Supplied primarily via the anterior circulation. No evidence of occlusion. Brain: No definite mass, mass effect, or midline shift. Cerebral ventricles: No ventriculomegaly. Paranasal sinuses: There is mucosal thickening involving the paranasal sinuses. No air-fluid levels are identified. Bones/joints: Unremarkable. No acute fracture. Soft tissues: Unremarkable. PROCEDURE INFORMATION: Exam: CTA Neck With Contrast Exam date and time: 11/23/2023 4:37 AM Age: 63 years old Clinical indication: Speech disturbance and weakness; Slurred speech; Additional info: AMS, wordfinding difficulty TECHNIQUE: Imaging protocol: Computed tomographic angiography of the neck with contrast. Exam focused on the cervical segments of the vasculature. 3D rendering (Not supervised by radiologist): MIP and/or 3D reconstructed images were created by the technologist. Radiation optimization: All CT scans at this facility use at least one of these dose optimization techniques: automated exposure control; mA and/or kV adjustment per patient size (includes targeted exams where dose is matched to clinical indication); or iterative reconstruction. Contrast material: OMNI 350; Contrast volume: 75 ml; Contrast route: INTRAVENOUS (IV); COMPARISON: CT angio chest w abd pel w con 07/16/2022 1:08 AM RADIATION DOSE METRICS: Total DLP (mGy-cm): 0 FINDINGS: Right common carotid artery: There is calcified plaque involving the distal common carotid artery extending into the internal and external carotid arteries. No definite high-grade stenosis is noted involving the distal common carotid artery. Right internal carotid artery: Moderate to severe narrowing with stenosis approaching 75%. Right external carotid artery: Moderate narrowing at its origin without occlusion. Left common carotid artery: Mild plaque without high-grade stenosis. Left internal carotid artery: Mild plaque without high-grade stenosis. Left external carotid artery: No occlusion or stenosis of the origin. Right vertebral artery: Origin stenosis. The right vertebral artery is small and appears to end in PICA. Left vertebral artery: Origin stenosis but otherwise patent. Lymph nodes: There is mediastinal adenopathy within the upper mediastinum. Soft tissues: Normal. No significant soft tissue swelling. Bones/joints: No acute fracture. Pleural spaces: There are dependent pleural effusions at both lung apices greater on the left than on the right. CT/CT angio headneck* [id number] IMPRESSION: 1. No large vessel high-grade stenosis or occlusion is identified. IMPRESSION: 1. Origin stenoses involving the origins of the vertebral arteries bilaterally. The right vertebral artery is small and appears to end in PICA. 2. Stenosis involving the proximal right internal carotid artery approaching 75%. 3. Mediastinal adenopathy. A neoplastic cause is to be excluded. REFERENCES: NASCET CRITERIA. The degree of stenosis in the cervical segment of the internal carotid artery is based on NASCET criteria. Normal is no stenosis. Mild is less than 50% stenosis. Moderate is 50-69% stenosis. Severe is 70% to 99% stenosis. Total occlusion is no detectable patent lumen.
[2023-11-23 04:45] LABS: Alanine Aminotransferase 6 U/L (0-41); Albumin Level 2.8 g/dL (3.5-5.2); Alkaline Phosphatase 214 U/L (40-130); Aspartate Amino Transferase 59 U/L (0-40); Blood Urea Nitrogen 16 mg/dL (8-23); Calcium 8.4 mg/dL (8.5-10.5); Carbon Dioxide 24 mmol/L (22-29); Chloride 97 mmol/L (98-107); Creatinine Clr Calc Pharmacy 25.5075; Globulin 2.7 g/dL (1.3-4.6); Glomerular Filtration Rate 16.3 mL/min (90-130); Glucose 100 mg/dL (65-115); Osmolality Calculated 277 mOsm/kg (285-295); Phosphorus 3.2 mg/dL (2.5-4.5); Sodium 133 mmol/L (136-145); Total Protein 5.5 g/dL (6.6-8.7)
[2023-11-23] MEDS: sodium chloride 0.9% 1,000 ML 75 ML IV (04:51)
[2023-11-23 04:52] LABS: INR 1.47 (0.8-1.2)
[2023-11-23 04:53] LABS: Partial Thromboplastin Time 51.6 SECONDS (23.9-36.7)
[2023-11-23 04:55] LABS: Anion Gap 15.5 (5-19); Potassium 3.5 mmol/L (3.5-5.1)
[2023-11-23] MEDS: iohexol 350 mg/mL 500 mL Btl (per mL) IV (04:56)
--- NOTE | 2023-11-23 04:57 | P.PNCC_ITS ---
Critical Care Event Note The high probability of a clinically significant, sudden or life threatening deterioration of the patient's [] system(s) required my full and direct attention, intervention and personal management. The critical care time is as shown. This time is in addition to time spent performing any reported procedures but includes the following: [x] Data and vital sign review and interpretation [x] Patient assessment, examination and intervention [x] Documentation [x] Medication orders and management Critical Care Time Code activated: Yes Critical Care Time (min): 45 Additional information about critical care time: - Last known normal 3 AM-3:30 AM 11/23/2023 -Nurses had alerted me at roughly 4:24 AM 11/23/2023 during assessment, patient had aphasia, concerns for slurring of his words, left-sided facial droop, left- sided weakness -Code stroke was called -Patient was examined, as he was being wheeled down to CT scan -During my initial evaluation, patient had productive aphasia, he is alert, keenly responsive, gets the month right, able to follow commands, no gaze palsy, visual loera are difficult to assess given his global encephalopathy at this time, a slight left facial droop, no left arm weakness, no drift for 10 seconds, right arm no drift for 10 seconds, left leg drifts and hits bed, right leg drifts and hits bed, ataxia in 2 limbs, no sensory loss, language mild to moderate aphasia does have mild slurring of his words, mild to moderate dysarthria, no extinction, his NIH stroke scale is 8 -Symptoms do seem rather global ? Patient was hypotensive yesterday, nurses tell me that he had 1.7 L taken off of him and became hypotensive after dialysis -Blood sugar is 100 ? Hemoglobin 8.8, platelet count 72,000, INR 1.47, PTT 51.7, T. bili is elevated at 4, ammonia levels 44 -Patient had completed his head CT, CTA head and neck -Reviewed his chart, in detail patient has a history of atrial fibrillation, is off anticoagulation due to GI bleed, anemia -Patient was discharged 11/16/2023 for concerns for black tarry stools, hemoglobin as low as 7.8, plan for outpatient EGD, did not require blood transfusion, managed on Protonix, Carafate, aspirin was discontinued -Patient was discharged 10/24/2023 for acute anemia, acute GI bleed requiring 1 unit PRBC, EGD at that time showed gastritis, he was kept off his anticoagulant therapy on discharge, kept on aspirin ? Had another admission 02/01/2023 for bloody stools, hemoglobin down to 6.3, underwent EGD and colonoscopy, showing hiatal hernia, external hemorrhoids, diverticulosis,, Aspirin on Discharge -Spoke to Dr. Medeiros about patient's case, patient is not a candidate for tPA given recent anemia, GI bleed, PTT elevation, PTT elevation, symptoms due have global features, more global encephalopathy, recommended medical management ? Etiology could be embolic phenomenon given that he is off anticoagulation with his atrial fibrillation, and or possible watershed stroke, given his hypotension after dialysis, and hypotensive episodes ? Currently Blood Pressure 94/59, Pulse 105, Looks Normal Sinus Rhythm, respirate 22, O2 sat 97% on 2 L?patient was moved to medical floors ? Patient was placed in Trendelenburg, start him on IV fluids ? Spoke to nursing staff, monitor blood pressure closely, allow for permissive hypertension, he is a bit hypotensive -Hemoglobin is 8.8, monitor closely, maintain hemoglobin greater than 8 ? Patient was reexamined on MedSurg, he is much more alert and awake, he can follow commands, no facial droop, does have word finding difficulty no slurring of his words, he has more global weakness of both his legs, but good upper extremity strength, [id number] is normal bilaterally, but does have diminished strength, can follow commands, ? CT head CT/CT head wo con* [id number] IMPRESSION: 1. Atrophy with small-vessel ischemic change. -CTA head and neck CT/CT angio headneck* [id number] IMPRESSION: 1. No large vessel high-grade stenosis or occlusion is identified. IMPRESSION: 1. Origin stenoses involving the origins of the vertebral arteries bilaterally. The right vertebral artery is small and appears to end in PICA. 2. Stenosis involving the proximal right internal carotid artery approaching 75%. 3. Mediastinal adenopathy. A neoplastic cause is to be excluded. -Protonix, Carafate -Rectal aspirin -Will need to discuss with neurology in the a.m. and possible vascular surgery about patient's right internal carotid artery, patient's symptomatology is contralateral to carotid artery stenosis Coding Level of Care Code Acute Code for [facility]
[2023-11-23 05:00] LABS: Ammonia 44 umol/L (16-60)
[2023-11-23] MEDS: acetaminophen 325 mg Tablet 650 MG PO (05:33)
[2023-11-23] MEDS: escitalopram 10 mg Tablet PO (05:34)
--- NOTE | 2023-11-23 07:17 | PC.NURSE ---
This nurse noticed that the patient was having some expressive aphasia at approximately 4:15. The nurse got charge after doing a short neuro assessment, and she did one as well. Patient expressed some left sided weakness and the doctor was called. Stroke alert was sounded and patient was taken to CT. Doctor Simon did a neuro assessment at this time and gave orders to keep the patient npo, keep his head of bed at zero degrees, start fluids, give aspirin per protocol. During the CT contrast was given for which telenephrology was called and made aware of. It was stated that emergent dialysis would not be needed but the patient would be assessed shortly by nephrology doctor.
--- NOTE | 2023-11-23 07:44 | P.PN_ITS ---
Subjective 2 Subjective: Overnight events noted. Patient became sluggish and facial droop overnight. The patient had CT scan and abnormal CTA. However no acute stroke on head CT. The patient complains of some chest pain and weakness and swelling. The patient also has a penile lesion that is chronic. He denies nausea or vomiting poor appetite. More awake. Medications: Reviewed: Yes Medication Review Details: Current Medications Acetaminophen (Acetaminophen 325 Mg Tablet) 650 mg PO Q6H PRN PRN Reason: Mild/Mod Pain Or Temp >/= 101 Last Admin: 11/23/23 05:33 Dose: 650 mg Albuterol/Ipratropium (Ipratropium-Albuterol 3 Ml Neb) 3 ml INHALATION Q6H.RESP KENNEDY Last Admin: 11/23/23 06:26 Dose: Not Given Amiodarone HCl (Amiodarone 200 Mg Tablet) 200 mg PO BEDTIME KENNEDY Last Admin: 11/22/23 20:50 Dose: 200 mg Atorvastatin Calcium (Atorvastatin 40 Mg Tablet) 40 mg PO BEDTIME KENNEDY Last Admin: 11/22/23 20:50 Dose: 40 mg Budesonide (Budesonide 0.5 Mg/2 Ml Neb) 0.5 mg INHALATION BID.RESPIRATORY KENNEDY Last Admin: 11/22/23 20:23 Dose: 0.5 mg Carbidopa/Levodopa (Carbidopa-Levodopa 10-100 Mg Tablet) 1 each PO TID KENNEDY Last Admin: 11/22/23 20:50 Dose: 1 each Collagenase (Collagenase Oint 30 Gm) 1 applic TOPICAL DAILY KENNEDY Docusate Sodium (Docusate Sodium 100 Mg Capsule) 200 mg PO BEDTIME KENNEDY Last Admin: 11/22/23 20:50 Dose: 200 mg Escitalopram Oxalate (Escitalopram 10 Mg Tablet) 10 mg PO QAM KENNEDY Last Admin: 11/23/23 05:34 Dose: 10 mg Sodium Chloride (Sodium Chloride 0.9%) 1,000 mls @ 100 mls/hr IV .Q10H KENNEDY Last Admin: 11/23/23 04:51 Dose: 75 mls/hr Midodrine (Midodrine 5 Mg Tablet) 10 mg PO TID PRN PRN Reason: bp below 100/90 Ondansetron HCl (Ondansetron 2 Mg/Ml Sdv 2 Ml) 4 mg IVP Q6H PRN PRN Reason: vomiting, or N/V if npo Pantoprazole Sodium (Pantoprazole Dr 40 Mg Tablet) 40 mg PO BID [facility] Last Admin: 11/22/23 17:57 Dose: 40 mg Sucralfate (Sucralfate 1 Gm Tablet) 1 gm PO Q12H [facility] Last Admin: 11/23/23 00:54 Dose: 1 gm Tamsulosin HCl (Tamsulosin 0.4 Mg Capsule) 0.4 mg PO BEDTIME [facility] Last Admin: 11/22/23 20:50 Dose: 0.4 mg Vitals/I&O/Wt Last Vital Signs Temp 97.9 F 11/23/23 07:42 Pulse 106 H 11/23/23 07:42 Resp 18 11/23/23 07:42 BP 99/62 11/23/23 07:42 Pulse Ox 100 11/23/23 07:42 O2 Del Method Nasal Cannula 11/23/23 07:42 O2 Flow Rate 2 11/23/23 04:20 11/22/23 11/23/23 11/23/23 22:59 06:59 14:59 Intake Total 650 / 650 Output Total 2211 / 2211 Balance -1561 / -1561 Weight last 48 hrs Weight 11.703 kg Weight 114.8 kg Weight 116.528 kg Weight 122.47 kg Physical Exam 2 Narrative: appears older than stated age, he is awake alert. He is much more oriented. He is speaking to me and appropriate. He is using nasal cannula oxygen in bed. Vital signs noted. HEENT normocephalic atraumatic. Neck is supple Lungs mild rhonchi on the right side. Heart irregular irregular, + systolic murmur. Abdomen soft positive bowel sounds. Patient has penile edema with a wound. Extremities 1+ edema. Patient has a right anterior chest wall dialysis access Neuro patient awake alert oriented, interactive and appropriate. Improving strength he states. Data 11/23/23 04:09 11/23/23 04:09 Micro: Microbiology 11/22/23 06:36 Blood Culture - Preliminary Blood NEGATIVE TO DATE 11/22/23 06:36 Blood Culture - Preliminary Blood NEGATIVE TO DATE Other data: 1. Origin stenoses involving the origins of the vertebral arteries bilaterally. The right vertebral artery is small and appears to end in PICA. 2. Stenosis involving the proximal right internal carotid artery approaching 75%. 3. Mediastinal adenopathy. A neoplastic cause is to be excluded. REFERENCES: NASCET CRITERIA. The degree of stenosis in the cervical segment of the internal carotid artery is based on NASCET criteria. Normal is no stenosis. Mild is less than 50% stenosis. Moderate is 50-69% stenosis. Severe is 70% to 99% stenosis. Total occlusion is no detectable patent lumen. A&P Assessment and plan (1) ESRD (end stage renal disease) on dialysis: 63-year-old gentleman history of heart failure with pulmonary hypertension, diastolic dysfunction and EF of 50%., A-fib, GI bleed, ESRD. Patient was admitted with confusion and hypoxemia. 1. Altered mental status improving. Note carotid artery disease on CTA. No acute CVA -await neuro eval 2. ESRD -hemodialysis Wednesday and Wednesday. Patient did drop his blood pressure with fluid removal. The patient still has abnormal chest x-ray. 3. Anemia stable hemoglobin of 8.8. Patient had recent high ferritin's. Patient has worsening of her chronic thrombocytopenia platelets now 70 Consider giving Epogen with dialysis tomorrow 4. TSH 7.37 last week - normal vitamin D level in august 2023 5. Labs and medications reviewed 6. monitor electrolytes The patient gives consent to hemodialysis and also to telemedicine visits. Patient was seen and examined with the nurse. Audiovisual equipment was used. Plan see above Attestations 2 Medical Necessity Statement*: AMS, hypotension, carotie artert diease Time Spent in Patient Care: 16 - 35 minutes (>than 50% of time sp ent in counselling and/or direct pt care on unit) . Coding Level of Care Code Acute Code for [facility] Fwd Diagnoses ESRD (end stage renal disease) on dialysis N18.6; Z99.2
[2023-11-23] MEDS: aspirin 325 mg Tablet PO (07:59)
[2023-11-23] MEDS: pantoprazole DR 40 mg Tablet PO (07:59)
[2023-11-23] MEDS: collagenase oint 30 gm 1 APPLIC TOPICAL (08:00)
--- NOTE | 2023-11-23 09:18 | PC.CHAP ---
Pastoral Care Encounter/Spiritual Assessment Type of Contact [] Declined dressmaker helper visit [] Patient/Family/Request visit [] Outpatient visit [] Follow-up visit [] Physician referral [] Code/Alert [x] Routine visit [] Staff referral [] Actively dying [] Patient sleeping [] Family support [] [] Out of room [] Palliative care [] [] Receiving care in room [] Pre-surgical visit [] Trauma [] Long length of stay [] ICU visit [] Other: Relational/Emotional Strength [x] Patient feels connected with others/family/visitors/staff [] Distress [] Loneliness/isolation [] Abandonment Spirituality of Patient [x] Person of Amy [] Attends Denominational of their Amy [x] Believes in Prayer [] Reads Bible or Mormonism materials [] There are Spiritual issues to be addressed Director Of Volunteer Services Interventions [x] Prayer [x] Active listening [] Non-anxious presence [x] Spiritual/emotional support [] Crisis/trauma care [] Spiritual counseling [] Bereavement support [] Provided bereavement packet [] Provided Bible/devotional materials [] Provided toy/stuffed animal, coloring book to patient or family member [] Provided Communion [] Anointing/[place] [] Salvation [x] Completed spiritual assessment [] Other: Impact on Illness or Injury [] Angry [] Fearful [] Anxious [] Often cries [] Exhaustion [] Unable to work [] Unable to attend restoration [] Unable to walk/stand [] Unable to read [] Unable to drive [] Unable to eat/drink [] Unable to sleep [] Unable to be with family [] Patient intubated [] Other: Summary Time spent with patient 5 min
--- NOTE | 2023-11-23 09:46 | PM.DCS ---
Discharge Providers Date of Admission: 11/22/23 11:05 Date of Discharge: November 23, 2023 Attending Provider at Admission: Leander Zavala MD Attending Provider at Discharge: Leander Zavala MD Primary Care Provider: Sulma Zavala MD Diagnoses at Discharge Discharge Diagnosis (1) ESRD (end stage renal disease) on dialysis: Status: Acute Reason for Visit Reason for Visit: Low O2 saturation, confusion Hospital Course Hospital Course Richard is a 63-year-old white male who presented to the hospital with confusion, and fluid overload. He has had multiple hospital stays before and has an underlying diagnosis of end-stage renal disease on hemodialysis, A-fib off anticoagulation secondary to recurrent GI bleed, noncompliance with dialysis. He had skipped dialysis Wednesday prior to admission. He was placed in the hospital, and dialysis initiated. Confusion improved. During the night he had some facial droop and paresis. A stroke alert was called and he had improved enough, considering his comorbidities tPA was not thought appropriate. CT head no acute findings. CTA demonstrated right carotid 75%. I discussed with patient's family on admission CODE STATUS, and they elected to make him allow natural . They were also considering comfort measures in the future secondary to his noncompliance with dialysis, poor tolerance of dialysis with severe pulmonary hypertension and hypotension, and other comorbidities. Patient was more alert enough today to confirm that he wants to be allow natural . He also acknowledges that he would like his stepson Mr. José and [id number] to make decisions for him should he not be able to make decisions. He is amenable to consideration of comfort care if he gets worse. He does want to continue dialysis currently until that happens. I discussed with him I do not think he is currently a candidate for any kind of major surgery such as right carotid endarterectomy, and not candidate for anticoagulation secondary to recurrent GI bleeding. He acknowledges this. At this point it is reasonable to discharge him to the detention with a DNR status. Some medications were reduced. He will follow-up with dialysis 3 times weekly, with next dialysis tomorrow. If he worsens, family will be making decisions regarding potential for comfort measures only and do not hospitalize. They were able to ask questions and agreed with the plan. Statin was continued. Antiplatelets, anticoagulation contraindicated secondary to GI bleeding. Physical Exam Narrative: General Exam no distress Neck is supple Cardiovascular regular rate and rhythm Lungs clear Abdomen is soft. Back with some edema. demonstrates lesion, dorsal surface of penis without any evidence of infection currently Extremities trace edema bilaterally Discharge Data Studies Completed and Pending Completed Studies During Hospitalization Category Date Time Status CT angio head neck [CT angio headneck* [id number]] Cat Scan 11/23/23 04:[address] head wo con* [id number] Stat Cat Scan 11/23/23 04:23 Completed XR chest 1V portable [id number] Stat Exams 11/22/23 06:18 Completed Pending at discharge Category Date Time Status Blood Culture Stat Lab 11/22/23 06:36 Results Sputum Culture and Gram Stain Stat Lab 11/23/23 09:05 Received Urinalysis Stat Lab 11/22/23 06:18 Uncollected Urinalysis and Microscopic Routine Lab 11/22/23 12:38 Uncollected Radiology Impressions Chest X-Ray 11/22/23 06:18 IMPRESSION: No significant change. Head CT 11/23/23 04:23 IMPRESSION: 1. Atrophy with small-vessel ischemic change. Head/Neck CTA 11/23/23 04:37 IMPRESSION: 1. No large vessel high-grade stenosis or occlusion is identified. IMPRESSION: 1. Origin stenoses involving the origins of the vertebral arteries bilaterally. The right vertebral artery is small and appears to end in PICA. 2. Stenosis involving the proximal right internal carotid artery approaching 75%. 3. Mediastinal adenopathy. A neoplastic cause is to be excluded. REFERENCES: NASCET CRITERIA. The degree of stenosis in the cervical segment of the internal carotid artery is based on NASCET criteria. Normal is no stenosis. Mild is less than 50% stenosis. Moderate is 50-69% stenosis. Severe is 70% to 99% stenosis. Total occlusion is no detectable patent lumen. Laboratory Results WBC 4.77 10^3/uL (3.29-11.43) 11/23/23 04:09 RBC 2.76 10^6/uL (3.85-5.65) L 11/23/23 04:09 Hgb 8.80 g/dL (11.27-16.99) L 11/23/23 04:09 Hct 29.7 % (37-53) L 11/23/23 04:09 MCV 107.6 fl (82-101) H 11/23/23 04:09 MCH 31.9 pg (27-33) 11/23/23 04:09 MCHC 29.6 g/dL (30-55) L 11/23/23 04:09 RDW 23.3 % (12.1-15.1) H 11/23/23 04:09 Plt Count 72 10^3/cmm (157-399) L 11/23/23 04:09 MPV 11.5 fL (7.4-10.4) H 11/23/23 04:09 Neut % (Auto) 64.7 % 11/23/23 04:09 Lymph % (Auto) 15.5 % 11/23/23 04:09 [place] % (Auto) 18.0 % 11/23/23 04:09 Eos % (Auto) 0.6 % 11/23/23 04:09 Baso % (Auto) 0.8 % 11/23/23 04:09 Neut # (Auto) 3.08 10^3/uL (1.8-7.7) 11/23/23 04:09 Lymph # (Auto) 0.7 10^3/uL (0.8-4.8) L 11/23/23 04:09 [place] # (Auto) 0.9 10^3/uL (0.2-0.9) 11/23/23 04:09 Eos # (Auto) 0.0 10^3/uL (0.0-0.8) 11/23/23 04:09 Baso # (Auto) 0.0 10^3/uL (0.0-0.1) 11/23/23 04:09 Nucleated RBC % (auto) 0 % 11/23/23 04:09 Nucleated RBCs # 0.0 /100WBC 11/23/23 04:09 PT 18.30 SECONDS (12.1-14.9) H 11/23/23 04:24 INR 1.47 (0.8-1.2) H 11/23/23 04:24 APTT 51.6 SECONDS (23.9-36.7) H 11/23/23 04:24 Specimen Type Arterial 11/22/23 06:36 Sample Site Brachial, right 11/22/23 06:36 ABG pH 7.49 (7.35-7.45) H 11/22/23 06:36 ABG pCO2 42.1 mmHg (35-45) 11/22/23 06:36 ABG pO2 55.9 mmHg (80.0-100.0) L 11/22/23 06:36 ABG HCO3 31.9 mmol/L (22-26) H 11/22/23 06:36 ABG O2 Saturation 88.9 11/22/23 06:36 ABG Base Excess 7.8 mmol/L (-2.0-2.0) H 11/22/23 06:36 Kash Test N/a 11/22/23 06:36 A-a O2 Gradient Not Reportable 11/22/23 06:36 Hematocrit 27.0 % (42-52) L 11/22/23 06:36 Hgb O2 Saturation 86.1 % (95-100) L 11/22/23 06:36 Carboxyhemoglobin 2.7 %THgb (0.4-20.1) 11/22/23 06:36 Methemoglobin 0.4 % (0.4-1.5) 11/22/23 06:36 Total Hemoglobin 8.8 g/dL (14-18) L 11/22/23 06:36 Sodium 135.0 mmol/L (131-143) 11/22/23 06:36 Potassium 3.2 mmol/L (3.5-5.0) L 11/22/23 06:36 Glucose 95.0 mg/dL (70-115) 11/22/23 06:36 Ionized Calcium 1.2 mmol/L (1.1-1.4) 11/22/23 06:36 O2 Delivery Device Nc 11/22/23 06:36 O2 Liters/Min 3.0 % 11/22/23 06:36 FiO2 0.0 % 11/22/23 06:36 Furnace Puncher ID Andre 11/22/23 06:36 Sodium 133 mmol/L (136-145) L 11/23/23 04:09 Potassium 3.5 mmol/L (3.5-5.1) 11/23/23 04:09 Chloride 97 mmol/L (98-107) L 11/23/23 04:09 Carbon Dioxide 24 mmol/L (22-29) 11/23/23 04:09 Anion Gap 15.5 (5-19) 11/23/23 04:09 BUN 16 mg/dL (8-23) 11/23/23 04:09 Creatinine 3.8 mg/dL (0.7-1.2) H 11/23/23 04:09 GFR Calculation 16.3 mL/min (90-130) L 11/23/23 04:09 Glucose 100 mg/dL (65-115) 11/23/23 04:09 POC Glucose 101 mg/dL (70-110) 11/23/23 04:25 Calculated Osmolality 277 mOsm/kg (285-295) L 11/23/23 04:09 Lactic Acid 2.5 mmol/L (0.5-2.2) H 11/22/23 06:36 Lactic Acid (Sepsis) 1.6 mmol/L (0.5-2.2) 11/22/23 09:45 Calcium 8.4 mg/dL (8.5-10.5) L 11/23/23 04:09 Phosphorus 3.2 mg/dL (2.5-4.5) 11/23/23 04:09 Magnesium 2.0 mg/dL (1.7-2.3) 11/23/23 04:09 Total Bilirubin 4.0 mg/dL (0.15-1.2) H 11/23/23 04:09 AST 59 U/L (0-40) H 11/23/23 04:09 ALT 6 U/L (0-41) 11/23/23 04:09 Alkaline Phosphatase 214 U/L (40-130) H 11/23/23 04:09 Ammonia 44 umol/L (16-60) 11/23/23 04:09 Troponin T Baseline 451 ng/L (0-15) H* 11/22/23 06:36 Troponin T 120 Minute 468.0 ng/L (0-15) H 11/22/23 08:25 Delta Troponin T 17.0 ABS# (0-10) H* 11/22/23 08:25 Troponin T Hi Sens 6Hr 435.9 ng/L (0-15) H 11/22/23 13:35 Troponin T Hi Sens 6Hr Delta -15.1 ng/L (0-12) L 11/22/23 13:35 Total Protein 5.5 g/dL (6.6-8.7) L 11/23/23 04:09 Albumin 2.8 g/dL (3.5-5.2) L 11/23/23 04:09 Globulin 2.7 g/dL (1.3-4.6) 11/23/23 04:09 Lipase 9 U/L (13-60) L 11/22/23 06:36 Procalcitonin 1.34 ng/mL (0-0.5) H 11/22/23 06:36 Hep Bs Antigen Non-reactive (Nonreactive) 11/22/23 13:35 Hep Bs Antibody 127.1 (11.5-1000) 11/22/23 13:35 Hepatitis C Antibody Non-reactive (Nonreactive) 11/22/23 13:35 Vitals Last Vital Signs Temp 97.9 F 11/23/23 07:42 Pulse 106 H 11/23/23 07:42 Resp 18 11/23/23 07:42 BP 99/62 11/23/23 07:42 Pulse Ox 100 11/23/23 07:42 O2 Del Method Nasal Cannula 11/23/23 07:42 O2 Flow Rate 2 11/23/23 08:05 Discharge Plan Discharge Patient Disposition: Home Condition: Stable Prescriptions: Continued albuterol sulfate [Ventolin HFA] 90 mcg/actuation HFA aerosol inhaler 1 inh inhalation QID PRN (Reason: shortness of breath or wheezing) Qty: 8.5 3RF budesonide 0.5 mg/2 mL suspension for nebulization 0.5 mg inhalation BID Qty: 60 3RF budesonide-formoterol [Symbicort] 80-4.5 mcg/actuation HFA aerosol inhaler 2 puff INHALATION BID PRN (Reason: unknown) Qty: 10.2 2RF Lexapro 10 mg tablet 10 mg PO QAM Qty: 90 1RF ipratropium-albuterol 0.5 mg-3 mg(2.5 mg base)/3 mL solution for nebulization 3 ml INHALATION Q6H Qty: 180 3RF nitroglycerin 2.5 mg capsule, extended release 2.5 mg PO DAILY PRN (Reason: chest tightness) Qty: 30 0RF fluticasone propionate 50 mcg/actuation spray,suspension 2 spray intranasal DAILY PRN (Reason: Allergy Symptoms) Qty: 16 1RF (DME) Diabetic shoes See Rx Instructions .ROUTE .MEDSUPPLY Qty: 1 0RF Rx Instructions: With 3 pairs of inserts to the shoe guys (DME) four point rollaid with chair See Rx Instructions .Route .MEDSUPPLY Qty: 1 0RF [place] Inst[place] [place] See Rx Instructions .Route .MEDSUPPLY Qty: 1 0RF Rx Instructions: [place] [place] nebulizer supplies (hose, mask,ect) See Rx Instructions .Route .MEDSUPPLY Qty: 1 1RF Rx Instructions: [place] [place] oxygen concentrator See Rx Instructions .Route .MEDSUPPLY Qty: 1 0RF Rx Instructions: [place] [place] shower chair See Rx Instructions .Route .MEDSUPPLY Qty: 1 1RF Rx Instructions: [place] [place] toiler riser with handles See Rx Instructions .Route .MEDSUPPLY Qty: 1 0RF Rx Instructions: [place] [place] See Rx Instructions .Route .MEDSUPPLY Qty: 1 0RF Rx Instructions: [place] [place] Crutches See Rx Instructions .Route .MEDSUPPLY Qty: 1 0RF Rx Instructions: As directed HOME acetaminophen 325 mg Tablet 650 mg PO Q6H PRN (Reason: PAIN OR INCREASED TEMP) ondansetron HCl 8 mg tablet 8 mg PO Q6H PRN (Reason: Nausea) pantoprazole [Protonix] 40 mg tablet,delayed release (DR/EC) 40 mg PO BID 56 Days Qty: 112 0RF oxycodone-acetaminophen 5-325 mg tablet 0.5 - 1 tab PO Q4H PRN (Reason: Pain) cyanocobalamin (vitamin B-12) [Vitamin B-12] 1,000 mcg tablet 1,000 mcg PO DAILY RenaPlex-D 800 mcg-12.5 mg -2,000 unit tablet 1 tab PO BEDTIME tamsulosin [Flomax] 0.4 mg Capsule 0.4 mg PO BEDTIME bisacodyl 5 mg Tablet 10 mg PO DAILY PRN (Reason: Constipation) miconazole nitrate [Antifungal (miconazole)] 2 % cream 1 applic topical BID Qty: 30 0RF Santyl 250 unit/gram ointment 1 applic topical DAILY Qty: 30 0RF Rx Instructions: START ONLY AFTER PURULENCE BEHIND THE HEAD OF PENIS RESOLVES atorvastatin 40 mg tablet 40 mg PO BEDTIME amiodarone 200 mg tablet 200 mg PO BEDTIME docusate sodium 100 mg capsule 200 mg PO BEDTIME midodrine 10 mg tablet 10 mg PO TID PRN (Reason: bp below 100/90) metronidazole 1 % gel See Rx Instructions .ROUTE .COMPLEX Rx Instructions: Apply topically to head of penis twice daily. carbidopa-levodopa 10-100 mg tablet 1 tab PO TID sucralfate 1 gram tablet 1 g PO Q12H Discontinued tramadol 50 mg tablet 50 mg PO Q6H PRN (Reason: Pain, Mild) ropinirole 2 mg tablet 2 mg PO BEDTIME Qty: 90 1RF doxycycline monohydrate 100 mg Tablet 100 mg PO BID Qty: 10 0RF Discharge Orders: Discharge Order (Routine); Ordered 11/23/23 Ordered By: Leander Zavala Referrals: Sulma Zavala MD [Primary Care Provider] - 4-7 days Patient Instructions: Heart Failure (GEN), Dialysis Diet (DC), Hemodialysis (DC), CHF Stoplight, Opioid Safety Activity Restrictions/Additional Instructions: 2 L oxygen per nasal cannula titrate for sat greater than or equal to 92% Patient is allow natural Family and patient considering do not hospitalize, transition to comfort measures should he worsen. Nurse practitioner to discuss. Initial plan is to continue dialysis but when patient refuses, becomes worse, cannot make decisions family will make decisions regarding comfort measures. Family is stepson Mr. José and [id number]. Take medications as prescribed. Discharge Attestations Time Spent in Discharge Care*: greater than 30 min Status at Discharge: Cognitive status at discharge: cognitively intact, Behavioral status at discharge: cooperative, Quality Metrics Clinical Quality Measures [ Cerebrovascular Accident { Contraindication to Antithrombotic: Medical contraindication; Contraindication to Anticoagulation: Medical contraindication; Contraindication to Statin: None; Statin prescribed; Contraindication to antithrombotic day 2: Medical contraindication; Contraindication to tPA: Treatment not indicated;}] Coding Level of Care Code 30758 Total time (in minutes) for Discharge: 35 Diagnoses ESRD (end stage renal disease) on dialysis N18.6; Z99.2
[2023-11-23 11:53] LABS: SARS Covid-2 Antigen Negative (Negative)
--- NOTE | 2023-11-23 12:47 | PC.NURSE ---
Discharge Note Patient discharged to [facility] via wheelchair accompanied by [facility]. Discharge instructions reviewed with patient, verbalized understanding of teaching. All patient belongings returned to patient upon discharge.
== END 2023-11-23 12:35 | disposition home or self-care (01) ==
LOC: ER 07:45 → MEDSURG 11:05
PROVIDERS: Family Medicine; Internal Medicine Nephrology; Admitting Provider Internal Medicine; Emergency Provider Family Medicine; PCP Family Medicine; Visit Provider Internal Medicine
DX: E11.22 Type 2 diabetes mellitus with diabetic chronic kidney disease (principal); I13.0 Hypertensive heart and chronic kidney disease with heart failure and stage 1 through stage 4 chronic kidney disease, or unspecified chronic kidney disease; N18.6 End stage renal disease; Z99.2 Dependence on renal dialysis; I48.91 Unspecified atrial fibrillation; Z91.199 Patient's noncompliance with other medical treatment and regimen due to unspecified reason; I50.40 Unspecified combined systolic (congestive) and diastolic (congestive) heart failure; I25.2 Old myocardial infarction; J44.9 Chronic obstructive pulmonary disease, unspecified; G47.33 Obstructive sleep apnea (adult) (pediatric); Z99.81 Dependence on supplemental oxygen
CPT/HCPCS: 36415; 36416; 36600; 70450; 70496; 70498; 71045; 80051; 80053; 82140; 82330; 82805; 82962; 83605; 83690; 83735; 84100; 84145; 84484; 85025; 85610; 85730; 86706; 86803; 87040; 87070; 87077; 87186; 87205; 87340; 87426; 90935; 92523; 92610; 93005; 94640; 97110; 97161; 97165; 99285; G0378; J7030; J7626